=== PATIENT | male | born 1990 | race Caucasian/White ===

== ENCOUNTER 2023-04-19 00:49 | Inpatient (IN) ==
--- NOTE | 2023-04-19 01:00 | Emergency Department Note ---
Impression & Plan Severe sepsis, Sepsis, Blockage of feeding tube, Acute UTI (urinary tract infection), Autonomic dysfunction ED Provider Note ED Provider Note NAME: NAYELY DOBSON AGE:32 SEX: Male : 1990 ARRIVES VIA: EMS INFORMANT: EMS ED PROVIDER(s): Tanna Greco DO CHIEF COMPLAINT: Blocked feeding tube HPI: This is a 32-year-old male who presents emergency department from [facility] due to the concern for a blocked feeding tube. EMS reports staff told him they did try to use soda to unclog it however were unsuccessful and were concerned and sent him here. Patient is nonverbal, has a history of trach, TIPPLE TENDER shunt, and is bedbound. Patient is dependent on the feeding tube and does not take anything by mouth. PAST MEDICAL HISTORY:See Below PAST SURGICAL HISTORY:See Below FAMILY HISTORY:See Below SOCIAL HISTORY:See Below HOME MEDICATIONS:See Below ALLERGIES:See Below VITALS:See Below PHYSICAL EXAMINATION: GENERAL: alert, no distress HEAD: chronic appearing deformity at skull EYE EXAM: normal conjunctiva, PERRL and EOM's grossly intact OROPHARYNX: no exudate, no erythema, lips, buccal mucosa, and tongue normal and mucous membranes are moist NECK: supple, no nuchal rigidity, no adenopathy, non-tender LUNGS: Clear to auscultation. Normal chest wall mechanics, no w/r/r, trach noted inferior anterior neck with scant drainage HEART: no murmurs, S1 normal and S2 normal ABDOMEN: abdomen soft, non-tender, normo-active bowel sounds, no masses, no rebound or guarding, G-tube noted left upper quadrant, no drainage or erythema at skin site BACK: Back is symmetrical on inspection and there is no deformity, no midline tenderness, no CVA tenderness. SKIN: no rashes, petechiae, orbruising UPPER EXTREMITIES: upper extremities are grossly normal. nml pulses b/l. Contractures and muscular atrophy bilaterally LOWER EXTREMITIES: No pitting edema. nml pulses b/l. Muscular atrophy noted bilaterally. NEURO EXAM: Eyes open, bilateral upper extremity contractures, nonverbal Vital Signs: reviewed and remarkable Differential Diagnosis: Dislodgment, blockage of tube, cellulitis, bleeding, as well as others were considered MEDICAL DECISION MAKING: This is a 32-year-old male who was chronically dependent on feeding tube who presents from a local facility due to concern for a blocked feeding tube. After several attempts here using warm water, soda, and then further warm water, the tube was able to be unblocked and would flush and aspirate well without difficulty. No leakage or drainage from around the skin site. No bleeding at the skin site. Patient afebrile and vital signs stable. Patient slated for transportation back to facility at 11 AM per case management. I did order his morning medications per feeding tube based on what was in the EMR as we did ask the staff at [facility] to fax us a copy of his current medications and when they were last given and nothing was ever received. Nursing staff aware of plan and importance of giving all medications through the feeding tube. Patient othe rwise hemodynamically stable throughout. Consultation(s): [] ER Treatment Provided: See below Diagnostics Interpreted By Me: -ECG: [] -Cardiac Monitoring: An order was placed for continuous cardiac monitoring. The monitor shows a rate of 98 with normal sinus rhythm. -Laboratory studies: As stated above and show below. -Imaging studies: [] Triage Nursing Note Reviewed Prior/Outside Records Reviewed Past Med/Surg History Medical History (Updated 04/19/23 @ 13:24 by Gael York MD) History of nontraumatic rupture of cerebral aneurysm History of traumatic brain injury Social History Smoking Status: Never smoker Second Hand Exposure: No; Do You Dip or Chew Tobacco: No; Tobacco Cessation Education Requested by Patient: No Hx Alcohol Use: No Hx Substance Use: No Preferred Language: German Communication Ability: Unable Racing Car Driver Required: No Beliefs That Will Affect Care: None Current Living Situation: [facility] Other Information That Helps Us Care for You: No Feels Safe at Home: Yes Safety Concerns: Feels Safe At This Time Assistive Devices: None Allergies Allergies Allergy/AdvReac Type Severity Reaction Status Date / Time No Known Allergies Allergy Unverified 04/04/23 09:03 Home Meds Home Medications Medication Instructions Recorded Confirmed apixaban 5 mg tablet (Eliquis) 5 mg feeding tube BID 04/02/23 04/03/23 scopolamine base 1 mg over 3 days 1 patch transdermal Q3D 04/02/23 04/03/23 transdermal patch Previous Rx's Medication Instructions Recorded acetaminophen 325 mg/10.15 mL oral 650 mg (20.3 mL) PEG Q6 #250 mL 04/17/23 suspension baclofen 10 mg tablet 20 mg feeding tube Q6H #1 tab 04/17/23 bromocriptine 2.5 mg tablet 2.5 mg feeding tube Q6 #120 tabs 04/17/23 dantrolene 25 mg capsule 100 mg PEG Q6 #120 caps 04/17/23 escitalopram oxalate 5 mg/5 mL 5 mg (5 mL) PEG QAM #150 mL 04/17/23 oral solution ferrous sulfate 220 mg (44 mg 325 mg (7.3864 mL) G-tube Q48H 60 04/17/23 iron)/5 mL oral elixir days #221.592 mL gabapentin 250 mg/5 mL oral 400 mg (8 mL) PEG Q6 #250 mL 04/17/23 solution lactose-reduced food with fiber See Rx Instructions .Route 04/17/23 0.06 gram-1.5 kcal/mL oral liquid .COMPLEX #5,688 mL (Jevity 1.5 Lance) metoprolol tartrate 25 mg tablet 25 mg PEG BID #60 tabs 04/17/23 multivit and minerals-ferrous 15 ml PEG QAM 30 days #450 mL 04/17/23 gluconate 9 mg iron/15 mL oral liquid (Centrum) Results & Data (ED) Vital Signs Vital Signs - 24 hr 04/19/23 01:17 04/19/23 01:34 04/19/23 02:00 Temperature 37.5 C Temperature Source Axillary Pulse Rate 103 H Pulse Rate [Apical] 105 H 109 H Pulse Rate from SpO2 Sensor Pulse Rhythm Pulse Rhythm [Apical] Pulse Strength [Apical] Respiratory Rate 18 18 18 Respiratory Effort / Characteristics Respiratory Depth Respiratory Pattern Blood Pressure 110/80 Blood Pressure [Right Arm] 110/87 122/77 Blood Pressure Mean 90 Blood Pressure Mean [Right Arm] 94 92 Blood Pressure Position [Right Arm] Pulse Oximetry 100 100 100 Oxygen Delivery Method Trach Collar Trach Collar Trach Collar Oxygen Flow Rate 5 5 5 Fraction of Inspired Oxygen SaO2/FiO2 Ratio Sepsis Recent Fever Within 48 Hours No Sepsis New/Unexplained Change in Mental Status No Sepsis Action Taken by Nursing No Action Required 04/19/23 04:00 04/19/23 06:00 04/19/23 06:23 Temperature 37.5 C Temperature Source Axillary Pulse Rate 109 H Pulse Rate [Apical] 109 H 108 H Pulse Rate from SpO2 Sensor Pulse Rhythm Pulse Rhythm [Apical] Pulse Strength [Apical] Respiratory Rate 18 18 18 Respiratory Effort / Characteristics Respiratory Depth Respiratory Pattern Blood Pressure 120/89 Blood Pressure [Right Arm] 131/98 131/88 Blood Pressure Mean Blood Pressure Mean [Right Arm] 109 102 Blood Pressure Position [Right Arm] Pulse Oximetry 100 100 97 Oxygen Delivery Method Trach Collar Trach Collar Trach Collar Oxygen Flow Rate 5 5 5 Fraction of Inspired Oxygen SaO2/FiO2 Ratio Sepsis Recent Fever Within 48 Hours Sepsis New/Unexplained Change in Mental Status Sepsis Action Taken by Nursing 04/19/23 07:28 04/19/23 09:29 04/19/23 11:35 Temperature Temperature Source Pulse Rate 172 H Pulse Rate [Apical] 104 H 110 H Pulse Rate from SpO2 Sensor Pulse Rhythm Pulse Rhythm [Apical] Pulse Strength [Apical] Respiratory Rate 24 22 Respiratory Effort / Characteristics Respiratory Depth Respiratory Pattern Blood Pressure Blood Pressure [Right Arm] 132/96 132/94 Blood Pressure Mean Blood Pressure Mean [Right Arm] 108 106 Blood Pressure Position [Right Arm] Pulse Oximetry 100 100 Oxygen Delivery Method Trach Collar Trach Collar Oxygen Flow Rate 5 5 Fraction of Inspired Oxygen SaO2/FiO2 Ratio Sepsis Recent Fever Within 48 Hours Sepsis New/Unexplained Change in Mental Status Sepsis Action Taken by Nursing 04/19/23 12:34 04/19/23 11:15 04/19/23 13:10 Temperature 39.6 C H 39.9 C H Temperature Source Axillary Axillary Pulse Rate 178 H Pulse Rate [Apical] 169 H 189 H Pulse Rate from SpO2 Sensor Pulse Rhythm Regular Pulse Rhythm [Apical] Regular Pulse Strength [Apical] Normal Respiratory Rate 19 Respiratory Effort / Characteristics Spontaneous Respiratory Depth Normal Respiratory Pattern Regular Blood Pressure Blood Pressure [Right Arm] 114/99 Blood Pressure Mean Blood Pressure Mean [Right Arm] 104 Blood Pressure Position [Right Arm] Lying Pulse Oximetry 93 94 Oxygen Delivery Method Trach Collar Trach Collar Oxygen Flow Rate 10 Fraction of Inspired Oxygen 40 SaO2/FiO2 Ratio 235 Sepsis Recent Fever Within 48 Hours Sepsis New/Unexplained Change in Mental Status Sepsis Action Taken by Nursing 04/19/23 12:47 04/19/23 12:47 04/19/23 13:17 Temperature Temperature Source Pulse Rate 130 H Pulse Rate [Apical] Pulse Rate from SpO2 Sensor 180 H 130 H Pulse Rhythm Pulse Rhythm [Apical] Pulse Strength [Apical] Respiratory Rate Respiratory Effort / Characteristics Respiratory Depth Respiratory Pattern Blood Pressure 167/127 H Blood Pressure [Right Arm] Blood Pressure Mean 142 Blood Pressure Mean [Right Arm] Blood Pressure Position [Right Arm] Pulse Oximetry 90 95 Oxygen Delivery Method Oxygen Flow Rate Fraction of Inspired Oxygen SaO2/FiO2 Ratio Sepsis Recent Fever Within 48 Hours Sepsis New/Unexplained Change in Mental Status Sepsis Action Taken by Nursing 04/19/23 13:30 04/19/23 13:31 04/19/23 13:31 Temperature Temperature Source Pulse Rate Pulse Rate [Apical] Pulse Rate from SpO2 Sensor 157 H 159 H Pulse Rhythm Pulse Rhythm [Apical] Pulse Strength [Apical] Respiratory Rate Respiratory Effort / Characteristics Respiratory Depth Respiratory Pattern Blood Pressure 158/119 H Blood Pressure [Right Arm] Blood Pressure Mean 145 Blood Pressure Mean [Right Arm] Blood Pressure Position [Right Arm] Pulse Oximetry 96 96 Oxygen Delivery Method Oxygen Flow Rate Fraction of Inspired Oxygen SaO2/FiO2 Ratio Sepsis Recent Fever Within 48 Hours Sepsis New/Unexplained Change in Mental Status Sepsis Action Taken by Nursing 04/19/23 13:22 04/19/23 14:36 04/19/23 13:45 Temperature 39.6 C H 39.0 C H Temperature Source Axillary Rectal Pulse Rate 152 H Pulse Rate [Apical] Pulse Rate from SpO2 Sensor 152 H Pulse Rhythm Pulse Rhythm [Apical] Pulse Strength [Apical] Respiratory Rate Respiratory Effort / Characteristics Respiratory Depth Respiratory Pattern Blood Pressure 168/110 H Blood Pressure [Right Arm] Blood Pressure Mean 129 Blood Pressure Mean [Right Arm] Blood Pressure Position [Right Arm] Pulse Oximetry 96 Oxygen Delivery Method Oxygen Flow Rate Fraction of Inspired Oxygen SaO2/FiO2 Ratio Sepsis Recent Fever Within 48 Hours Sepsis New/Unexplained Change in Mental Status Sepsis Action Taken by Nursing 04/19/23 14:00 04/19/23 14:15 04/19/23 14:30 Temperature Temperature Source Pulse Rate 143 H 152 H Pulse Rate [Apical] Pulse Rate from SpO2 Sensor 155 H 152 H Pulse Rhythm Pulse Rhythm [Apical] Pulse Strength [Apical] Respiratory Rate Respiratory Effort / Characteristics Respiratory Depth Respiratory Pattern Blood Pressure 174/123 H 161/111 H 146/109 H Blood Pressure [Right Arm] Blood Pressure Mean 140 127 120 Blood Pressure Mean [Right Arm] Blood Pressure Position [Right Arm] Pulse Oximetry 96 96 Oxygen Delivery Method Oxygen Flow Rate Fraction of Inspired Oxygen SaO2/FiO2 Ratio Sepsis Recent Fever Within 48 Hours Sepsis New/Unexplained Change in Mental Status Sepsis Action Taken by Nursing 04/19/23 14:30 04/19/23 14:45 04/19/23 15:00 Temperature Temperature Source Pulse Rate 157 H 148 H Pulse Rate [Apical] Pulse Rate from SpO2 Sensor 156 H 147 H Pulse Rhythm Pulse Rhythm [Apical] Pulse Strength [Apical] Respiratory Rate Respiratory Effort / Characteristics Respiratory Depth Respiratory Pattern Blood Pressure 146/109 H 159/109 H 158/120 H Blood Pressure [Right Arm] Blood Pressure Mean 121 125 125 Blood Pressure Mean [Right Arm] Blood Pressure Position [Right Arm] Pulse Oximetry 97 96 Oxygen Delivery Method Trach Collar Oxygen Flow Rate 10 Fraction of Inspired Oxygen SaO2/FiO2 Ratio Sepsis Recent Fever Within 48 Hours Sepsis New/Unexplained Change in Mental Status Sepsis Action Taken by Nursing 04/19/23 15:00 04/19/23 15:37 04/19/23 15:45 Temperature 39.3 C H Temperature Source Rectal Pulse Rate 150 H 132 H Pulse Rate [Apical] 102 H Pulse Rate from SpO2 Sensor 149 H Pulse Rhythm Pulse Rhythm [Apical] Pulse Strength [Apical] Respiratory Rate 24 Respiratory Effort / Characteristics Respiratory Depth Respiratory Pattern Blood Pressure 158/120 H Blood Pressure [Right Arm] 113/61 Blood Pressure Mean 132 Blood Pressure Mean [Right Arm] 78 Blood Pressure Position [Right Arm] Lying Pulse Oximetry 97 96 Oxygen Delivery Method Trach Collar Trach Collar Oxygen Flow Rate 10 10 Fraction of Inspired Oxygen SaO2/FiO2 Ratio Sepsis Recent Fever Within 48 Hours Sepsis New/Unexplained Change in Mental Status Sepsis Action Taken by Nursing Laboratory Data 04/19/23 12:35 04/19/23 19:53 Lab Results 04/19/23 04/19/23 04/19/23 Range/Units 11:14 12:30 12:30 WBC (4.8-10.8) K/ul RBC (4.70-6.10) M/uL Hgb (14.0-18.0) g/dl Hct (42.0-52.0) % MCV (80.0-100.0) fL MCH (25.0-34.0) pg MCHC (32.0-36.0) g/dL RDW Std Deviation (36.4-46.3) fL RDW Coeff of Dario (11.5-14.5) % Plt Count (130-400) K/uL MPV (9.4-12.4) fL Immature Gran % (Auto) % Neut % (Auto) % Lymph % (Auto) % [place] % (Auto) % Eos % (Auto) % Baso % (Auto) % Neut # (Auto) (1.40-6.50) K/uL Lymph # (Auto) (1.20-3.40) K/uL [place] # (Auto) (0.11-0.59) K/uL Eos # (Auto) (0.00-0.50) K/uL Baso # (Auto) (0.00-0.20) K/uL Immature Gran # (Auto) (0.01-0.20) K/uL VBG pH (7.36-7.41) VBG pCO2 (38-50) mmHg VBG pO2 mmHg VBG HCO3 mmol/L VBG O2 Saturation % VBG Base Excess mEq/L Sodium (136-145) mmol/L Potassium Chloride (98-107) mmol/L Carbon Dioxide (21-32) mmol/L Anion Gap (3-11) BUN (6-23) mg/dl Creatinine (0.6-1.4) mg/dl Est Cr Clr Drug Dosing ml/min Est GFR ( Amer) ml/min Est GFR (Non-Af Amer) ml/min BUN/Creatinine Ratio (10-20) Glucose (70-99(Fasting)) mg/dl POC Glucose 113 H (70-99) mg/dl Lactate 4.8 H* (0.4-2.0) mmol/L Calcium (8.6-10.3) mg/dl Magnesium (1.7-2.4) mg/dl Total Bilirubin (0.2-1.0) mg/dl Direct Bilirubin AST (13-39) U/L ALT (7-52) U/L Alkaline Phosphatase (34-104) U/L Total Protein (6.0-8.3) gm/dl Albumin (3.4-5.0) gm/dl Procalcitonin Urine Color Dark Yellow Urine Appearance Turbid A (Clear) Urine pH 5.5 (4.5-7.5) Ur Specific [place] 1.030 (1.000-1.030) Urine Protein 3+ H (Negative) Urine Glucose (UA) Negative (Negative) Urine Ketones Negative (Negative) Urine Blood 3+ H (Negative) Urine Nitrite Negative (Negative) Urine Bilirubin 1+ H (Negative) Urine Urobilinogen Negative (Negative) Ur Leukocyte Esterase 1+ H (Negative) Urine WBC (Auto) 10-30 H (0-5) /hpf Urine RBC (Auto) >30 H (0-4) /hpf U Hyaline Cast (Auto) 1-5 (0-5) /lpf U Epithel Cells (Auto) 5-10 H (0-5) /lpf Urine Bacteria (Auto) 2+ H (Negative) Ur Renal Epithelial Cell Not Reportable Urine Crystals Not Reportable Calcium Oxalate Crystal Present A (None Prsent) Urine Yeast Not Reportable 04/19/23 04/19/23 04/19/23 Range/Units 12:35 12:35 12:35 WBC 15.76 H (4.8-10.8) K/ul RBC 4.05 L (4.70-6.10) M/uL Hgb 12.6 L (14.0-18.0) g/dl Hct 37.9 L (42.0-52.0) % MCV 93.6 (80.0-100.0) fL MCH 31.1 (25.0-34.0) pg MCHC 33.2 (32.0-36.0) g/dL RDW Std Deviation 50.2 H (36.4-46.3) fL RDW Coeff of Dario 14.6 H (11.5-14.5) % Plt Count 658 H (130-400) K/uL MPV 10.8 (9.4-12.4) fL Immature Gran % (Auto) 0.4 % Neut % (Auto) 77.6 % Lymph % (Auto) 15.0 % [place] % (Auto) 6.1 % Eos % (Auto) 0.3 % Baso % (Auto) 0.6 % Neut # (Auto) 12.23 H (1.40-6.50) K/uL Lymph # (Auto) 2.37 (1.20-3.40) K/uL [place] # (Auto) 0.96 H (0.11-0.59) K/uL Eos # (Auto) 0.05 (0.00-0.50) K/uL Baso # (Auto) 0.09 (0.00-0.20) K/uL Immature Gran # (Auto) 0.06 (0.01-0.20) K/uL VBG pH (7.36-7.41) VBG pCO2 (38-50) mmHg VBG pO2 mmHg VBG HCO3 mmol/L VBG O2 Saturation % VBG Base Excess mEq/L Sodium 142 (136-145) mmol/L Potassium TNP Chloride 103 (98-107) mmol/L Carbon Dioxide 22 (21-32) mmol/L Anion Gap 17 H (3-11) BUN 29 H (6-23) mg/dl Creatinine 0.90 D (0.6-1.4) mg/dl Est Cr Clr Drug Dosing 94.3 ml/min Est GFR ( Amer) 130.5 ml/min Est GFR (Non-Af Amer) 112.6 ml/min BUN/Creatinine Ratio 32.2 H (10-20) Glucose 108 H (70-99(Fasting)) mg/dl POC Glucose (70-99) mg/dl Lactate (0.4-2.0) mmol/L Calcium 10.1 (8.6-10.3) mg/dl Magnesium 1.7 (1.7-2.4) mg/dl Total Bilirubin 0.8 (0.2-1.0) mg/dl Direct Bilirubin TNP AST 33 (13-39) U/L ALT 18 (7-52) U/L Alkaline Phosphatase 92 (34-104) U/L Total Protein 8.4 H (6.0-8.3) gm/dl Albumin 4.4 (3.4-5.0) gm/dl Procalcitonin Cancelled Urine Color Urine Appearance (Clear) Urine pH (4.5-7.5) Ur Specific [place] (1.000-1.030) Urine Protein (Negative) Urine Glucose (UA) (Negative) Urine Ketones (Negative) Urine Blood (Negative) Urine Nitrite (Negative) Urine Bilirubin (Negative) Urine Urobilinogen (Negative) Ur Leukocyte Esterase (Negative) Urine WBC (Auto) (0-5) /hpf Urine RBC (Auto) (0-4) /hpf U Hyaline Cast (Auto) (0-5) /lpf U Epithel Cells (Auto) (0-5) /lpf Urine Bacteria (Auto) (Negative) Ur Renal Epithelial Cell Urine Crystals Calcium Oxalate Crystal (None Prsent) Urine Yeast 04/19/23 04/19/23 04/19/23 Range/Units 14:13 14:13 14:13 WBC (4.8-10.8) K/ul RBC (4.70-6.10) M/uL Hgb (14.0-18.0) g/dl Hct (42.0-52.0) % MCV (80.0-100.0) fL MCH (25.0-34.0) pg MCHC (32.0-36.0) g/dL RDW Std Deviation (36.4-46.3) fL RDW Coeff of Dario (11.5-14.5) % Plt Count (130-400) K/uL MPV (9.4-12.4) fL Immature Gran % (Auto) % Neut % (Auto) % Lymph % (Auto) % [place] % (Auto) % Eos % (Auto) % Baso % (Auto) % Neut # (Auto) (1.40-6.50) K/uL Lymph # (Auto) (1.20-3.40) K/uL [place] # (Auto) (0.11-0.59) K/uL Eos # (Auto) (0.00-0.50) K/uL Baso # (Auto) (0.00-0.20) K/uL Immature Gran # (Auto) (0.01-0.20) K/uL VBG pH (7.36-7.41) VBG pCO2 (38-50) mmHg VBG pO2 mmHg VBG HCO3 mmol/L VBG O2 Saturation % VBG Base Excess mEq/L Sodium (136-145) mmol/L Potassium 5.4 H D Chloride (98-107) mmol/L Carbon Dioxide (21-32) mmol/L Anion Gap (3-11) BUN (6-23) mg/dl Creatinine (0.6-1.4) mg/dl Est Cr Clr Drug Dosing ml/min Est GFR ( Amer) ml/min Est GFR (Non-Af Amer) ml/min BUN/Creatinine Ratio (10-20) Glucose (70-99(Fasting)) mg/dl POC Glucose (70-99) mg/dl Lactate 2.9 H* (0.4-2.0) mmol/L Calcium (8.6-10.3) mg/dl Magnesium (1.7-2.4) mg/dl Total Bilirubin (0.2-1.0) mg/dl Direct Bilirubin 0.0 AST (13-39) U/L ALT (7-52) U/L Alkaline Phosphatase (34-104) U/L Total Protein (6.0-8.3) gm/dl Albumin (3.4-5.0) gm/dl Procalcitonin 0.89 H Urine Color Urine Appearance (Clear) Urine pH (4.5-7.5) Ur Specific [place] (1.000-1.030) Urine Protein (Negative) Urine Glucose (UA) (Negative) Urine Ketones (Negative) Urine Blood (Negative) Urine Nitrite (Negative) Urine Bilirubin (Negative) Urine Urobilinogen (Negative) Ur Leukocyte Esterase (Negative) Urine WBC (Auto) (0-5) /hpf Urine RBC (Auto) (0-4) /hpf U Hyaline Cast (Auto) (0-5) /lpf U Epithel Cells (Auto) (0-5) /lpf Urine Bacteria (Auto) (Negative) Ur Renal Epithelial Cell Urine Crystals Calcium Oxalate Crystal (None Prsent) Urine Yeast 04/19/23 Range/Units 14:14 WBC (4.8-10.8) K/ul RBC (4.70-6.10) M/uL Hgb (14.0-18.0) g/dl Hct (42.0-52.0) % MCV (80.0-100.0) fL MCH (25.0-34.0) pg MCHC (32.0-36.0) g/dL RDW Std Deviation (36.4-46.3) fL RDW Coeff of Dario (11.5-14.5) % Plt Count (130-400) K/uL MPV (9.4-12.4) fL Immature Gran % (Auto) % Neut % (Auto) % Lymph % (Auto) % [place] % (Auto) % Eos % (Auto) % Baso % (Auto) % Neut # (Auto) (1.40-6.50) K/uL Lymph # (Auto) (1.20-3.40) K/uL [place] # (Auto) (0.11-0.59) K/uL Eos # (Auto) (0.00-0.50) K/uL Baso # (Auto) (0.00-0.20) K/uL Immature Gran # (Auto) (0.01-0.20) K/uL VBG pH 7.46 H (7.36-7.41) VBG pCO2 41 (38-50) mmHg VBG pO2 43 mmHg VBG HCO3 29 mmol/L VBG O2 Saturation 69.7 % VBG Base Excess 4.9 mEq/L Sodium (136-145) mmol/L Potassium Chloride (98-107) mmol/L Carbon Dioxide (21-32) mmol/L Anion Gap (3-11) BUN (6-23) mg/dl Creatinine (0.6-1.4) mg/dl Est Cr Clr Drug Dosing ml/min Est GFR ( Amer) ml/min Est GFR (Non-Af Amer) ml/min BUN/Creatinine Ratio (10-20) Glucose (70-99(Fasting)) mg/dl POC Glucose (70-99) mg/dl Lactate (0.4-2.0) mmol/L Calcium (8.6-10.3) mg/dl Magnesium (1.7-2.4) mg/dl Total Bilirubin (0.2-1.0) mg/dl Direct Bilirubin AST (13-39) U/L ALT (7-52) U/L Alkaline Phosphatase (34-104) U/L Total Protein (6.0-8.3) gm/dl Albumin (3.4-5.0) gm/dl Procalcitonin Urine Color Urine Appearance (Clear) Urine pH (4.5-7.5) Ur Specific [place] (1.000-1.030) Urine Protein (Negative) Urine Glucose (UA) (Negative) Urine Ketones (Negative) Urine Blood (Negative) Urine Nitrite (Negative) Urine Bilirubin (Negative) Urine Urobilinogen (Negative) Ur Leukocyte Esterase (Negative) Urine WBC (Auto) (0-5) /hpf Urine RBC (Auto) (0-4) /hpf U Hyaline Cast (Auto) (0-5) /lpf U Epithel Cells (Auto) (0-5) /lpf Urine Bacteria (Auto) (Negative) Ur Renal Epithelial Cell Urine Crystals Calcium Oxalate Crystal (None Prsent) Urine Yeast Administered Medications Apixaban (Apixaban 5 Mg Tablet) 5 mg PO BID TAYLOR Stop: 05/19/23 08:59 Last Admin: 04/19/23 20:25 Dose: 5 mg Documented By: Admin: 04/19/23 11:25 Dose: 5 mg Documented By: DYLON Baclofen (Baclofen 10 Mg Tab) 20 mg PEG Q6H TAYLOR Stop: 05/19/23 08:44 Last Admin: 04/19/23 20:48 Dose: 20 mg Documented By: Admin: 04/19/23 16:06 Dose: 20 mg Documented By: Admin: 04/19/23 11:44 Dose: 20 mg Documented By: DYLON Escitalopram Oxalate (Escitalopram Oxalate Oral Soln 5 Mg/5 Ml Udp) 5 mg PEG QAM TAYLOR Stop: 05/19/23 08:59 Last Admin: 04/19/23 11:34 Dose: 5 mg Documented By: DYLON Ferrous Sulfate (Ferrous Sulfate Elix 220mg/5ml) 325 mg GT Q48H [facility] Stop: 05/19/23 08:44 Last Admin: 04/19/23 11:39 Dose: 325 mg Documented By: DYLON Vancomycin HCl 1,000 mg/ (Sodium Chloride) 270 mls @ 200 mls/hr IV Q12H [facility] Stop: 04/22/23 00:00 Last Admin: 04/20/23 00:36 Dose: 200 mls/hr Documented By: EDEN Cefepime HCl 2,000 mg/ Syringe 20 mls @ 5 mls/min IV Q8H [facility]; Protocol Stop: 04/21/23 16:29 Last Admin: 04/20/23 00:36 Dose: 5 mls/min Documented By: Admin: 04/19/23 16:53 Dose: 5 mls/min Documented By: DAMASO Parenteral Electrolytes (Plasma-Lyte A Ph 7.4) 1,000 mls @ 125 mls/hr IV .Q8H T[facility]LOR Stop: 05/19/23 22:44 Last Admin: 04/19/23 22:57 Dose: 125 mls/hr Documented By: EDEN Metoprolol Tartrate (Metoprolol Tartrate 25 Mg Tab) 25 mg PEG BID TAYLOR Stop: 05/19/23 08:59 Last Admin: 04/19/23 20:48 Dose: 25 mg Documented By: Admin: 04/19/23 11:44 Dose: 25 mg Documented By: DYLON Multivitamins/Minerals (Multi Vit W/Minerals Liquid 15 Ml Udp) 15 ml PEG QAM T[facility]LOR Stop: 05/19/23 08:59 Last Admin: 04/19/23 11:33 Dose: 15 ml Documented By: DYLON Discontinued Medications Acetaminophen (Acetaminophen Susp 325 Mg/10.15 Ml Udc) 650 mg PEG Q6 T[facility]OR Stop: 05/19/23 11:59 Last Admin: 04/19/23 11:25 Dose: 650 mg Documented By: DYLON Bromocriptine Mesylate (Bromocriptine Mesylate 2.5 Mg Tab) 2.5 mg PO Q6 T[facility]OR Stop: 05/19/23 11:59 Last Admin: 04/19/23 20:24 Dose: 2.5 mg Documented By: Admin: 04/19/23 11:25 Dose: 2.5 mg Documented By: DYLON Dantrolene Sodium (Dantrolene Sodium 25 Mg Cap) 100 mg PEG Q6 T[facility]OR Stop: 05/19/23 11:59 Last Admin: 04/19/23 20:24 Dose: 100 mg Documented By: Admin: 04/19/23 11:25 Dose: 100 mg Documented By: DYLON Gabapentin (Gabapentin 250 Mg/5 Ml 470 Ml Btl) 400 mg GT Q6 T[facility]OR Stop: 05/19/23 11:59 Last Admin: 04/19/23 20:24 Dose: 400 mg Documented By: Admin: 04/19/23 13:42 Dose: 400 mg Documented By: NATALIA Sodium Chloride (Nss) 1,000 mls @ 999 mls/hr IV .Q1H1M ONE Stop: 04/19/23 12:22 Last Infusion: 04/19/23 13:48 Dose: 0 mls/hr Documented By: Admin: 04/19/23 12:15 Dose: 999 mls/hr Documented By: DYLON Piperacillin Sod/Tazobactam Sod (Zosyn) 4.5 gm in 100 mls @ 200 mls/hr IV NOW ONE Stop: 04/19/23 11:51 Last Infusion: 04/19/23 13:48 Dose: 0 mls/hr Documented By: Admin: 04/19/23 12:30 Dose: 200 mls/hr Documented By: DYLON Sodium Chloride (Nss) 1,000 mls @ 999 mls/hr IV .Q1H1M ONE Stop: 04/19/23 12:37 Last Infusion: 04/19/23 13:48 Dose: 0 mls/hr Documented By: Admin: 04/19/23 12:15 Dose: 999 mls/hr Documented By: DYLON Sodium Chloride (Nss) 500 mls @ 999 mls/hr IV .Q31M ONE Stop: 04/19/23 12:07 Last Infusion: 04/19/23 14:15 Dose: 0 mls/hr Documented By: Admin: 04/19/23 13:43 Dose: 999 mls/hr Documented By: NATALIA Acetaminophen (Ofirmev) 500 mg in 50 mls @ 200 mls/hr IV NOW STA Stop: 04/19/23 13:20 Last Infusion: 04/19/23 14:14 Dose: 0 mls/hr Documented By: Admin: 04/19/23 13:43 Dose: 200 mls/hr Documented By: NATALIA Sodium Chloride (Nss) 500 mls @ 999 mls/hr IV .Q31M ONE Stop: 04/19/23 15:38 Last Infusion: 04/19/23 21:19 Dose: 0 mls/hr Documented By: Admin: 04/19/23 16:02 Dose: 999 mls/hr Documented By: DAMASO Sodium Chloride (Nss) 1,000 mls @ 120 mls/hr IV .Q8H20M TAYLOR Stop: 05/19/23 15:44 Last Infusion: 04/19/23 23:40 Dose: 0 mls/hr Documented By: Admin: 04/19/23 16:02 Dose: 120 mls/hr Documented By: DAMASO Vancomycin HCl 1,250 mg/ (Sodium Chloride) 275 mls @ 200 mls/hr IV 1600 ONE Stop: 04/19/23 17:22 Last Infusion: 04/19/23 21:19 Dose: 0 mls/hr Documented By: Admin: 04/19/23 16:58 Dose: 200 mls/hr Documented By: DAMASO Morphine Sulfate (Morphine Sulfate 2 Mg/Ml Carp) 2 mg IV NOW STA Stop: 04/19/23 14:12 Last Admin: 04/19/23 14:34 Dose: 2 mg Documented By: NATALIA Imaging Data Radiologist's Impression: Abdomen/Pelvis CT 04/19/23 11:[address] WITHOUT CONTRAST CT DOSE: 871.62 mGy.cm HISTORY: Acute sepsis sepsis TECHNIQUE: Multiaxial CT images of the abdomen and pelvis were performed without contrast. A dose lowering technique was utilized adhering to the principles of ALARA. COMPARISON STUDY: 04/07/2023 FINDINGS: Motion degraded exam. Study is limited without the use of IV contrast and also secondary to residual enteric contrast within the colon. Mild right basilar atelectasis. No free air identified. Unenhanced spleen, visualized pancreas, adrenal glands and liver appear unremarkable. Unremarkable kidneys. Decompressed urinary bladder with Silva catheter. Unremarkable abdominal aorta. No bowel obstruction or bowel wall thickening. A gastrostomy tube is in place. Small amount of free pelvic fluid. Normal appendix. Gaseous distention of the colon. Shunt catheter distal tip projects in the left inferior pelvis. 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 No acute fracture. IMPRESSION: 1. Limited study as above. 2. No bowel obstruction or bowel wall thickening. 3. Normal appendix. 4. Shunt catheter distal tip terminates in the left hemipelvis. Small amount of ascites. ACT 112: Negative or not required by law. The above report was generated using voice recognition software. It may contain grammatical, syntax or spelling errors. Electronically signed by: Corey Rodgers M.D. 04/19/2023 1:21 PM Abdomen X-Ray 04/19/23 15:38 XR abdomen min 2V, XR chest 2V PA/lateral, XR skull <4V, XR cervical spine 2 or 3V HISTORY: 32 years-old Male Visualize Shunt shunt series radiographs COMPARISON: KUB 04/16/2023, chest radiograph 04/19/2023 TECHNIQUE: 2 views of the abdomen, 3 views of the cervical spine, 2 views of the chest and 2 views of the skull FINDINGS: SKULL: Visualized shunt catheter appears intact coursing along left neck and head. Craniotomy changes. No acute fracture. CERVICAL SPINE: No acute fracture or subluxation. Visualized shunt catheter appears intact. Tracheostomy cannula. CHEST: Visualize shunt catheter coursing along the left chest appears intact. Tracheostomy cannula. Subtle ill-defined right upper and midlung opacities. Cardiac silhouette is unchanged. No pleural effusion or pneumothorax. ABDOMEN: Gastrostomy tube. Contrast again noted within the colon. Moderate fecal retention. The visualized shunt catheter is intact, distal tip terminating within the left hemipelvis. IMPRESSION: 1. The visualized shunt catheter appears intact. 2. Subtle ill-defined right lung opacities. Correlate clinically to exclude pneumonia. 3. Nonobstructive bowel gas pattern. ACT 112: Negative or not required by law. The above report was generated using voice recognition software. It may contain grammatical, syntax or spelling errors. Electronically signed by: Corey Rodgers M.D. 04/19/2023 6:03 PM Cervical Spine X-Ray 04/19/23 15:38 XR abdomen min 2V, XR chest 2V PA/lateral, XR skull <4V, XR cervical spine 2 or 3V HISTORY: 32 years-old Male Visualize Shunt shunt series radiographs COMPARISON: KUB 04/16/2023, chest radiograph 04/19/2023 TECHNIQUE: 2 views of the abdomen, 3 views of the cervical spine, 2 views of the chest and 2 views of the skull FINDINGS: SKULL: Visualized shunt catheter appears intact coursing along left neck and head. Cran iotomy changes. No acute fracture. CERVICAL SPINE: No acute fracture or subluxation. Visualized shunt catheter appears intact. Tracheostomy cannula. CHEST: Visualize shunt catheter coursing along the left chest appears intact. Tracheostomy cannula. Subtle ill-defined right upper and midlung opacities. Cardiac silhouette is unchanged. No pleural effusion or pneumothorax. ABDOMEN: Gastrostomy tube. Contrast again noted within the colon. Moderate fecal retention. The visualized shunt catheter is intact, distal tip terminating within the left hemipelvis. IMPRESSION: 1. The visualized shunt catheter appears intact. 2. Subtle ill-defined right lung opacities. Correlate clinically to exclude pneumonia. 3. Nonobstructive bowel gas pattern. ACT 112: Negative or not required by law. The above report was generated using voice recognition software. It may contain grammatical, syntax or spelling errors. Electronically signed by: Corey Rodgers M.D. 04/19/2023 6:03 PM Chest X-Ray 04/19/23 15:38 XR abdomen min 2V, XR chest 2V PA/lateral, XR skull <4V, XR cervical spine 2 or 3V HISTORY: 32 years-old Male Visualize Shunt shunt series radiographs COMPARISON: KUB 04/16/2023, chest radiograph 04/19/2023 TECHNIQUE: 2 views of the abdomen, 3 views of the cervical spine, 2 views of the chest and 2 views of the skull FINDINGS: SKULL: Visualized shunt catheter appears intact coursing along left neck and head. Craniotomy changes. No acute fracture. CERVICAL SPINE: No acute fracture or subluxation. Visualized shunt catheter appears intact. Tracheostomy cannula. CHEST: Visualize shunt catheter coursing along the left chest appears intact. Tracheostomy cannula. Subtle ill-defined right upper and midlung opacities. Cardiac silhouette is unchanged. No pleural effusion or pneumothorax. ABDOMEN: Gastrostomy tube. Contrast again noted within the colon. Moderate fecal retention. The visualized shunt catheter is intact, distal tip terminating within the left hemipelvis. IMPRESSION: 1. The visualized shunt catheter appears intact. 2. Subtle ill-defined right lung opacities. Correlate clinically to exclude pneumonia. 3. Nonobstructive bowel gas pattern. ACT 112: Negative or not required by law. The above report was generated using voice recognition software. It may contain grammatical, syntax or spelling errors. Electronically signed by: Corey Rodgers M.D. 04/19/2023 6:[address] 04/19/23 15:38 CT head/brain wo con CLINICAL HISTORY: 32 years-old Male with parox symp. hyperactivity, hx vp outcomes shunt per neuro. Acute headache TECHNIQUE: Multiple axial CT images of the head were obtained without contrast. A dose lowering technique was utilized adhering to the principles of ALARA. CT DOSE: 625.8 mGy.cm COMPARISON: 04/07/2023. FINDINGS: Motion degraded exam. Left anterior frontal approach ventriculostomy catheter is noted with distal tip of the catheter terminating within the frontal horn of the right lateral ventricle. Transverse dimension lateral ventricles is 3.9 cm, pre viously 3.7 cm. Right-sided craniotomy changes with a large area of encephalomalacia involving the right MCA territory. Additional encephalomalacia within the left basal ganglia/thalamus. Dural thickening lateral to the right cerebral hemisphere is is unchanged, likely a postsurgical finding. No acute intracranial hemorrhage, midline shift, intracranial mass, hydrocephalus, territorial ischemia or abnormal extra-axial collection. Right-sided craniotomy with heterogeneous appearance of the skull at the craniotomy site with multifocal lucent changes of unknown chronicity. 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 The paranasal sinuses, mastoid air cells, and middle ear cavities are clear. IMPRESSION: 1. Motion degraded exam without acute intracranial abnormality identified. 2. Right-sided craniotomy changes with right MCA territory encephalomalacia. 3. Ventricular dilation is unchanged from prior with a left anterior frontal approach ventriculostomy catheter in place. ACT 112: Negative or not required by law. The above report was generated using voice recognition software. It may contain grammatical, syntax or spelling errors. Electronically signed by: Corey Rodgers M.D. 04/19/2023 5:48 PM Skull X-Ray 04/19/23 15:38 XR abdomen min 2V, XR chest 2V PA/lateral, XR skull <4V, XR cervical spine 2 or 3V HISTORY: 32 years-old Male Visualize Shunt shunt series radiographs COMPARISON: KUB 04/16/2023, chest radiograph 04/19/2023 TECHNIQUE: 2 views of the abdomen, 3 views of the cervical spine, 2 views of the chest and 2 views of the skull FINDINGS: SKULL: Visualized shunt catheter appears intact coursing along left neck and head. Craniotomy changes. No acute fracture. CERVICAL SPINE: No acute fracture or subluxation. Visualized shunt catheter appears intact. Tracheostomy cannula. CHEST: Visualize shunt catheter coursing along the left chest appears intact. Tracheostomy cannula. Subtle ill-defined right upper and midlung opacities. Cardiac silhouette is unchanged. No pleural effusion or pneumothorax. ABDOMEN: Gastrostomy tube. Contrast again noted within the colon. Moderate fecal retention. The visualized shunt catheter is intact, distal tip terminating within the left hemipelvis. IMPRESSION: 1. The visualized shunt catheter appears intact. 2. Subtle ill-defined right lung opacities. Correlate clinically to exclude pneumonia. 3. Nonobstructive bowel gas pattern. ACT 112: Negative or not required by law. The above report was generated using voice recognition software. It may contain grammatical, syntax or spelling errors. Electronically signed by: Corey Rodgers M.D. 04/19/2023 6:03 PM Discharge Plan Visit Data Chief Complaint: Feeding/PEG Tube Replacement Stated Complaint: FEEDING TUBE OBSTRUCTION ED Provider: Faheem Ortiz Discharge Problem: Severe sepsis, Sepsis, Blockage of feeding tube, Acute UTI (urinary tract infection), Autonomic dysfunction Patient Disposition: Admitted As Inpatient Condition: Fair Discharge Instructions Interventions: ED Discharge Assessment Last Done: 04/19/23 06:23
[2023-04-19] MEDS ORDERED: GABAPENTIN 250 MG/5 ML 470 ML BTL GT SCH (02:30)
[2023-04-19] MEDS ORDERED: SODIUM CHLORIDE 0.9% 1,000 ML IV ONE ×2 (11:22→11:37)
[2023-04-19] MEDS ORDERED: PIPERACILLIN/TAZOBACTAM 4.5 GM/100 ML BAG IV ONE (11:22)
[2023-04-19] MEDS: APIXABAN 5 MG TABLET PO SCH ×2 (11:25→20:25)
[2023-04-19] MEDS: DANTROLENE SODIUM 25 MG CAP PEG SCH ×2 (11:25→20:24)
[2023-04-19] MEDS: BROMOCRIPTINE MESYLATE 2.5 MG TAB PO SCH ×2 (11:25→20:24)
[2023-04-19] MEDS: MULTI VIT W/MINERALS LIQUID 15 ML UDP PEG SCH (11:33)
[2023-04-19] MEDS: ESCITALOPRAM OXALATE ORAL SOLN 5 MG/5 ML UDP PEG SCH (11:34)
[2023-04-19] MEDS ORDERED: SODIUM CHLORIDE 0.9% 500 ML IV ONE ×2 (11:37→15:08)
--- NOTE | 2023-04-19 11:37 | Emergency Department Note ---
History of Present Illness General Chief complaint: Feeding/PEG Tube Replacement Stated complaint: FEEDING TUBE OBSTRUCTION Time Seen by Provider: 04/19/23 00:55 History of Present Illness 32-year-old male from a halfway was here last evening for a clogged PEG tube and reportedly that was cleared. The patient was waiting for EMS transport back to his facility when the nursing staff at 11:30 AM stated to me that the patient had a fever was diaphoretic and had an increased heart rate. Patient's had a prior history of gram-negative sepsis and review of the old records and there is no further history from the patient as he is nonverbal Home Medications Medication Instructions Recorded Confirmed Type apixaban 5 mg tablet (Eliquis) 5 mg feeding tube BID 04/02/23 04/03/23 History scopolamine base 1 mg over 3 days 1 patch transdermal Q3D 04/02/23 04/03/23 History transdermal patch acetaminophen 325 mg/10.15 mL oral 650 mg (20.3 mL) PEG Q6 #250 mL 04/17/23 Rx suspension baclofen 10 mg tablet 20 mg feeding tube Q6H #1 tab 04/17/23 04/03/23 Rx bromocriptine 2.5 mg tablet 2.5 mg feeding tube Q6 #120 tabs 04/17/23 Rx dantrolene 25 mg capsule 100 mg PEG Q6 #120 caps 04/17/23 Rx escitalopram oxalate 5 mg/5 mL 5 mg (5 mL) PEG QAM #150 mL 04/17/23 Rx oral solution ferrous sulfate 220 mg (44 mg 325 mg (7.3864 mL) G-tube Q48H 60 04/17/23 Rx iron)/5 mL oral elixir days #221.592 mL gabapentin 250 mg/5 mL oral 400 mg (8 mL) PEG Q6 #250 mL 04/17/23 Rx solution lactose-reduced food with fiber See Rx Instructions .Route 04/17/23 Rx 0.06 gram-1.5 kcal/mL oral liquid .COMPLEX #5,688 mL (Jevity 1.5 Lance) metoprolol tartrate 25 mg tablet 25 mg PEG BID #60 tabs 04/17/23 Rx multivit and minerals-ferrous 15 ml PEG QAM 30 days #450 mL 04/17/23 Rx gluconate 9 mg iron/15 mL oral liquid (Centrum) Allergies Allergy/AdvReac Type Severity Reaction Status Date / Time No Known Allergies Allergy Unverified 04/04/23 09:03 Past Med/Surg History Medical History (Updated 04/19/23 @ 13:24 by Gael York MD) History of nontraumatic rupture of cerebral aneurysm History of traumatic brain injury Social History Smoking Status: Unknown if ever smoked Second Hand Exposure: No; Do You Dip or Chew Tobacco: No; Hx Alcohol Use: No Hx Substance Use: No Preferred Language: Uruguayan Communication Ability: Unable Orthopedic Surgeon Required: No Beliefs That Will Affect Care: None Current Living Situation: [facility] Feels Safe at Home: Yes Assistive Devices: Hospital Bed, Mechanical Lift and Oxygen - Continuous Review of Systems Unobtainable due to cognitive status Physical Exam Vital Signs Vital Signs - 24 hr 04/19/23 01:17 04/19/23 01:34 04/19/23 02:00 Temperature 37.5 C Temperature Source Axillary Pulse Rate 103 H Pulse Rate [Apical] 105 H 109 H Pulse Rate from SpO2 Sensor Pulse Rhythm Pulse Rhythm [Apical] Pulse Strength [Apical] Respiratory Rate 18 18 18 Respiratory Effort / Characteristics Respiratory Depth Respiratory Pattern Blood Pressure 110/80 Blood Pressure [Right Arm] 110/87 122/77 Blood Pressure Mean 90 Blood Pressure Mean [Right Arm] 94 92 Blood Pressure Position [Right Arm] Pulse Oximetry 100 100 100 Oxygen Delivery Method Trach Collar Trach Collar Trach Collar Oxygen Flow Rate 5 5 5 Fraction of Inspired Oxygen SaO2/FiO2 Ratio Sepsis Recent Fever Within 48 Hours No Sepsis New/Unexplained Change in Mental Status No Sepsis Action Taken by Nursing No Action Required 04/19/23 04:00 04/19/23 06:00 04/19/23 06:23 Temperature 37.5 C Temperature Source Axillary Pulse Rate 109 H Pulse Rate [Apical] 109 H 108 H Pulse Rate from SpO2 Sensor Pulse Rhythm Pulse Rhythm [Apical] Pulse Strength [Apical] Respiratory Rate 18 18 18 Respiratory Effort / Characteristics Respiratory Depth Respiratory Pattern Blood Pressure 120/89 Blood Pressure [Right Arm] 131/98 131/88 Blood Pressure Mean Blood Pressure Mean [Right Arm] 109 102 Blood Pressure Position [Right Arm] Pulse Oximetry 100 100 97 Oxygen Delivery Method Trach Collar Trach Collar Trach Collar Oxygen Flow Rate 5 5 5 Fraction of Inspired Oxygen SaO2/FiO2 Ratio Sepsis Recent Fever Within 48 Hours Sepsis New/Unexplained Change in Mental Status Sepsis Action Taken by Nursing 04/19/23 07:28 04/19/23 09:29 04/19/23 11:35 Temperature Temperature Source Pulse Rate 172 H Pulse Rate [Apical] 104 H 110 H Pulse Rate from SpO2 Sensor Pulse Rhythm Pulse Rhythm [Apical] Pulse Strength [Apical] Respiratory Rate 24 22 Respiratory Effort / Characteristics Respiratory Depth Respiratory Pattern Blood Pressure Blood Pressure [Right Arm] 132/96 132/94 Blood Pressure Mean Blood Pressure Mean [Right Arm] 108 106 Blood Pressure Position [Right Arm] Pulse Oximetry 100 100 Oxygen Delivery Method Trach Collar Trach Collar Oxygen Flow Rate 5 5 Fraction of Inspired Oxygen SaO2/FiO2 Ratio Sepsis Recent Fever Within 48 Hours Sepsis New/Unexplained Change in Mental Status Sepsis Action Taken by Nursing 04/19/23 12:34 04/19/23 11:15 04/19/23 13:10 Temperature 39.6 C H 39.9 C H Temperature Source Axillary Axillary Pulse Rate 178 H Pulse Rate [Apical] 169 H 189 H Pulse Rate from SpO2 Sensor Pulse Rhythm Regular Pulse Rhythm [Apical] Regular Pulse Strength [Apical] Normal Respiratory Rate 19 Respiratory Effort / Characteristics Spontaneous Respiratory Depth Normal Respiratory Pattern Regular Blood Pressure Blood Pressure [Right Arm] 114/99 Blood Pressure Mean Blood Pressure Mean [Right Arm] 104 Blood Pressure Position [Right Arm] Lying Pulse Oximetry 93 94 Oxygen Delivery Method Trach Collar Trach Collar Oxygen Flow Rate 10 Fraction of Inspired Oxygen 40 SaO2/FiO2 Ratio 235 Sepsis Recent Fever Within 48 Hours Sepsis New/Unexplained Change in Mental Status Sepsis Action Taken by Nursing 04/19/23 12:47 04/19/23 12:47 04/19/23 13:17 Temperature Temperature Source Pulse Rate 130 H Pulse Rate [Apical] Pulse Rate from SpO2 Sensor 180 H 130 H Pulse Rhythm Pulse Rhythm [Apical] Pulse Strength [Apical] Respiratory Rate Respiratory Effort / Characteristics Respiratory Depth Respiratory Pattern Blood Pressure 167/127 H Blood Pressure [Right Arm] Blood Pressure Mean 142 Blood Pressure Mean [Right Arm] Blood Pressure Position [Right Arm] Pulse Oximetry 90 95 Oxygen Delivery Method Oxygen Flow Rate Fraction of Inspired Oxygen SaO2/FiO2 Ratio Sepsis Recent Fever Within 48 Hours Sepsis New/Unexplained Change in Mental Status Sepsis Action Taken by Nursing 04/19/23 13:30 04/19/23 13:31 04/19/23 13:31 Temperature Temperature Source Pulse Rate Pulse Rate [Apical] Pulse Rate from SpO2 Sensor 157 H 159 H Pulse Rhythm Pulse Rhythm [Apical] Pulse Strength [Apical] Respiratory Rate Respiratory Effort / Characteristics Respiratory Depth Respiratory Pattern Blood Pressure 158/119 H Blood Pressure [Right Arm] Blood Pressure Mean 145 Blood Pressure Mean [Right Arm] Blood Pressure Position [Right Arm] Pulse Oximetry 96 96 Oxygen Delivery Method Oxygen Flow Rate Fraction of Inspired Oxygen SaO2/FiO2 Ratio Sepsis Recent Fever Within 48 Hours Sepsis New/Unexplained Change in Mental Status Sepsis Action Taken by Nursing GENERAL: Patient is awake, diaphoretic, nonverbal EYES: The conjunctivae are clear. The pupils are round and reactive. EARS, NOSE, MOUTH AND THROAT: The nose is without any evidence of any deformity. Mucous membranes are moist. Tongue is midline. NECK: The neck is nontender and supple. Trach is present with increased secretions RESPIRATORY: Rhonchi bilaterally CARDIOVASCULAR: Tachycardic noted there no murmurs rubs or gallops normal S1 normal S2. GASTROINTESTINAL: The abdomen is soft. There is a feeding tube present left upper quadrant MUSCULOSKELETAL/EXTREMITIES: Patient has bilateral upper extremity and lower extremity flexion contractures SKIN: Patient is diaphoretic NEUROLOGIC: Patient is awake, nonverbal, not interactive Course Reevaluation(s) Reevaluation #1: My repeat examination patient still has diaphoresis he is tachycardic he was given IV Tylenol as well. He has been receiving IV fluids he was then subsequently moved to room 81. Patient is not hypotensive on my reassessment. Time: 13:19 Reevaluation #2: Patient's heart rate has decreased to 130. Patient is also hypertensive. [facility] will discuss with the pharmacist as to providing further dantrolene due to his history of autonomic dysfunction Time: 14:09 Consultations Consultation #1: [facility] Time: 13:05 Administered Medications Acetaminophen (Acetaminophen Susp 325 Mg/10.15 Ml Udc) 650 mg PEG Q6 [facility] Stop: 05/19/23 11:59 Last Admin: 04/19/23 11:25 Dose: 650 mg Documented By: DYLON Apixaban (Apixaban 5 Mg Tablet) 5 mg PO BID [facility] Stop: 05/19/23 08:59 Last Admin: 04/19/23 11:25 Dose: 5 mg Documented By: DYLON Baclofen (Baclofen 10 Mg Tab) 20 mg PEG Q6H [facility] Stop: 05/19/23 08:44 Last Admin: 04/19/23 11:44 Dose: 20 mg Documented By: DYLON Bromocriptine Mesylate (Bromocriptine Mesylate 2.5 Mg Tab) 2.5 mg PO Q6 [facility] Stop: 05/19/23 11:59 Last Admin: 04/19/23 11:25 Dose: 2.5 mg Documented By: DYLON Dantrolene Sodium (Dantrolene Sodium 25 Mg Cap) 100 mg PEG Q6 [facility] Stop: 05/19/23 11:59 Last Admin: 04/19/23 11:25 Dose: 100 mg Documented By: DYLON Escitalopram Oxalate (Escitalopram Oxalate Oral Soln 5 Mg/5 Ml Udp) 5 mg PEG QAM [facility] Stop: 05/19/23 08:59 Last Admin: 04/19/23 11:34 Dose: 5 mg Documented By: DYLON Ferrous Sulfate (Ferrous Sulfate Elix 220mg/5ml) 325 mg GT Q48H [facility] Stop: 05/19/23 08:44 Last Admin: 04/19/23 11:39 Dose: 325 mg Documented By: DYLON Gabapentin (Gabapentin 250 Mg/5 Ml 470 Ml Btl) 400 mg GT Q6 [facility] Stop: 05/19/23 11:59 Last Admin: 04/19/23 13:42 Dose: 400 mg Documented By: NATALIA Metoprolol Tartrate (Metoprolol Tartrate 25 Mg Tab) 25 mg PEG BID [facility] Stop: 05/19/23 08:59 Last Admin: 04/19/23 11:44 Dose: 25 mg Documented By: DYLON Multivitamins/Minerals (Multi Vit W/Minerals Liquid 15 Ml Udp) 15 ml PEG QAM [facility] Stop: 05/19/23 08:59 Last Admin: 04/19/23 11:33 Dose: 15 ml Documented By: DYLON Discontinued Medications Sodium Chloride (Nss) 1,000 mls @ 999 mls/hr IV .Q1H1M ONE Stop: 04/19/23 12:22 Last Infusion: 04/19/23 13:48 Dose: 0 mls/hr Documented By: Admin: 04/19/23 12:15 Dose: 999 mls/hr Documented By: DYLON Piperacillin Sod/Tazobactam Sod (Zosyn) 4.5 gm in 100 mls @ 200 mls/hr IV NOW ONE Stop: 04/19/23 11:51 Last Infusion: 04/19/23 13:48 Dose: 0 mls/hr Documented By: Admin: 04/19/23 12:30 Dose: 200 mls/hr Documented By: DYLON Sodium Chloride (Nss) 1,000 mls @ 999 mls/hr IV .Q1H1M ONE Stop: 04/19/23 12:37 Last Infusion: 04/19/23 13:48 Dose: 0 mls/hr Documented By: Admin: 04/19/23 12:15 Dose: 999 mls/hr Documented By: DYLON Sodium Chloride (Nss) 500 mls @ 999 mls/hr IV .Q31M ONE Stop: 04/19/23 12:07 Last Admin: 04/19/23 13:43 Dose: 999 mls/hr Documented By: NATALIA Acetaminophen (Ofirmev) 500 mg in 50 mls @ 200 mls/hr IV NOW STA Stop: 04/19/23 13:20 Last Admin: 04/19/23 13:43 Dose: 200 mls/hr Documented By: NATALIA Critical Care Time Critical Care Time: Yes Total Critical Care Time: 40 I have personally spent greater than 40 minutes of critical care time in the direct management of this patient. This includes bedside care, interpretation of diagnostic studies, and testing, discussion with consultants, patient, and family members, and other required patient management activities. These minutes are in excess of all separately billable procedures. Medical Decision Making Medical Records Attestation: I reviewed the patient's medical records. Home Medications Current Medication List: was personally reviewed by fl Laboratory Data Attestation: I reviewed the patient's lab results. Lab results interpreted by me patient has an elevated white blood cell count, patient has an elevated lactate consistent with sepsis 04/19/23 12:35 04/19/23 12:35 Lab Results 04/19/23 04/19/23 04/19/23 Range/Units 11:14 12:30 12:30 WBC (4.8-10.8) K/ul RBC (4.70-6.10) M/uL Hgb (14.0-18.0) g/dl Hct (42.0-52.0) % MCV (80.0-100.0) fL MCH (25.0-34.0) pg MCHC (32.0-36.0) g/dL RDW Std Deviation (36.4-46.3) fL RDW Coeff of Dario (11.5-14.5) % Plt Count (130-400) K/uL MPV (9.4-12.4) fL Immature Gran % (Auto) % Neut % (Auto) % Lymph % (Auto) % Arroyo % (Auto) % Eos % (Auto) % Baso % (Auto) % Neut # (Auto) (1.40-6.50) K/uL Lymph # (Auto) (1.20-3.40) K/uL Arroyo # (Auto) (0.11-0.59) K/uL Eos # (Auto) (0.00-0.50) K/uL Baso # (Auto) (0.00-0.20) K/uL Immature Gran # (Auto) (0.01-0.20) K/uL Sodium (136-145) mmol/L Potassium Chloride (98-107) mmol/L Carbon Dioxide (21-32) mmol/L Anion Gap (3-11) BUN (6-23) mg/dl Creatinine (0.6-1.4) mg/dl Est Cr Clr Drug Dosing ml/min Est GFR ( Amer) ml/min Est GFR (Non-Af Amer) ml/min BUN/Creatinine Ratio (10-20) Glucose (70-99(Fasting)) mg/dl POC Glucose 113 H (70-99) mg/dl Lactate 4.8 H* (0.4-2.0) mmol/L Calcium (8.6-10.3) mg/dl Magnesium (1.7-2.4) mg/dl Total Bilirubin (0.2-1.0) mg/dl Direct Bilirubin AST (13-39) U/L ALT (7-52) U/L Alkaline Phosphatase (34-104) U/L Total Protein (6.0-8.3) gm/dl Albumin (3.4-5.0) gm/dl Procalcitonin Urine Color Dark Yellow Urine Appearance Turbid A (Clear) Urine pH 5.5 (4.5-7.5) Ur Specific Amity 1.030 (1.000-1.030) Urine Protein 3+ H (Negative) Urine Glucose (UA) Negative (Negative) Urine Ketones Negative (Negative) Urine Blood 3+ H (Negative) Urine Nitrite Negative (Negative) Urine Bilirubin 1+ H (Negative) Urine Urobilinogen Negative (Negative) Ur Leukocyte Esterase 1+ H (Negative) Urine WBC (Auto) 10-30 H (0-5) /hpf Urine RBC (Auto) >30 H (0-4) /hpf U Hyaline Cast (Auto) 1-5 (0-5) /lpf U Epithel Cells (Auto) 5-10 H (0-5) /lpf Urine Bacteria (Auto) 2+ H (Negative) Ur Renal Epithelial Cell Not Reportable Urine Crystals Not Reportable Calcium Oxalate Crystal Present A (None Prsent) Urine Yeast Not Reportable SARS-CoV-2 (PCR) (Negative) Influenza Type A (PCR) (Neg) Influenza Type B (PCR) (Neg) RSV (RT-PCR) (Neg) 04/19/23 04/19/23 04/19/23 Range/Units 12:35 12:35 12:35 WBC 15.76 H (4.8-10.8) K/ul RBC 4.05 L (4.70-6.10) M/uL Hgb 12.6 L (14.0-18.0) g/dl Hct 37.9 L (42.0-52.0) % MCV 93.6 (80.0-100.0) fL MCH 31.1 (25.0-34.0) pg MCHC 33.2 (32.0-36.0) g/dL RDW Std Deviation 50.2 H (36.4-46.3) fL RDW Coeff of Dario 14.6 H (11.5-14.5) % Plt Count 658 H (130-400) K/uL MPV 10.8 (9.4-12.4) fL Immature Gran % (Auto) 0.4 % Neut % (Auto) 77.6 % Lymph % (Auto) 15.0 % Arroyo % (Auto) 6.1 % Eos % (Auto) 0.3 % Baso % (Auto) 0.6 % Neut # (Auto) 12.23 H (1.40-6.50) K/uL Lymph # (Auto) 2.37 (1.20-3.40) K/uL Arroyo # (Auto) 0.96 H (0.11-0.59) K/uL Eos # (Auto) 0.05 (0.00-0.50) K/uL Baso # (Auto) 0.09 (0.00-0.20) K/uL Immature Gran # (Auto) 0.06 (0.01-0.20) K/uL Sodium 142 (136-145) mmol/L Potassium TNP Chloride 103 (98-107) mmol/L Carbon Dioxide 22 (21-32) mmol/L Anion Gap 17 H (3-11) BUN 29 H (6-23) mg/dl Creatinine 0.90 D (0.6-1.4) mg/dl Est Cr Clr Drug Dosing 94.3 ml/min Est GFR ( Amer) 130.5 ml/min Est GFR (Non-Af Amer) 112.6 ml/min BUN/Creatinine Ratio 32.2 H (10-20) Glucose 108 H (70-99(Fasting)) mg/dl POC Glucose (70-99) mg/dl Lactate (0.4-2.0) mmol/L Calcium 10.1 (8.6-10.3) mg/dl Magnesium 1.7 (1.7-2.4) mg/dl Total Bilirubin 0.8 (0.2-1.0) mg/dl Direct Bilirubin TNP AST 33 (13-39) U/L ALT 18 (7-52) U/L Alkaline Phosphatase 92 (34-104) U/L Total Protein 8.4 H (6.0-8.3) gm/dl Albumin 4.4 (3.4-5.0) gm/dl Procalcitonin Cancelled Urine Color Urine Appearance (Clear) Urine pH (4.5-7.5) Ur Specific Amity (1.000-1.030) Urine Protein (Negative) Urine Glucose (UA) (Negative) Urine Ketones (Negative) Urine Blood (Negative) Urine Nitrite (Negative) Urine Bilirubin (Negative) Urine Urobilinogen (Negative) Ur Leukocyte Esterase (Negative) Urine WBC (Auto) (0-5) /hpf Urine RBC (Auto) (0-4) /hpf U Hyaline Cast (Auto) (0-5) /lpf U Epithel Cells (Auto) (0-5) /lpf Urine Bacteria (Auto) (Negative) Ur Renal Epithelial Cell Urine Crystals Calcium Oxalate Crystal (None Prsent) Urine Yeast SARS-CoV-2 (PCR) (Negative) Influenza Type A (PCR) (Neg) Influenza Type B (PCR) (Neg) RSV (RT-PCR) (Neg) 04/19/23 Range/Units Unknown WBC (4.8-10.8) K/ul RBC (4.70-6.10) M/uL Hgb (14.0-18.0) g/dl Hct (42.0-52.0) % MCV (80.0-100.0) fL MCH (25.0-34.0) pg MCHC (32.0-36.0) g/dL RDW Std Deviation (36.4-46.3) fL RDW Coeff of Dario (11.5-14.5) % Plt Count (130-400) K/uL MPV (9.4-12.4) fL Immature Gran % (Auto) % Neut % (Auto) % Lymph % (Auto) % Arroyo % (Auto) % Eos % (Auto) % Baso % (Auto) % Neut # (Auto) (1.40-6.50) K/uL Lymph # (Auto) (1.20-3.40) K/uL Arroyo # (Auto) (0.11-0.59) K/uL Eos # (Auto) (0.00-0.50) K/uL Baso # (Auto) (0.00-0.20) K/uL Immature Gran # (Auto) (0.01-0.20) K/uL Sodium (136-145) mmol/L Potassium Chloride (98-107) mmol/L Carbon Dioxide (21-32) mmol/L Anion Gap (3-11) BUN (6-23) mg/dl Creatinine (0.6-1.4) mg/dl Est Cr Clr Drug Dosing ml/min Est GFR ( Amer) ml/min Est GFR (Non-Af Amer) ml/min BUN/Creatinine Ratio (10-20) Glucose (70-99(Fasting)) mg/dl POC Glucose (70-99) mg/dl Lactate (0.4-2.0) mmol/L Calcium (8.6-10.3) mg/dl Magnesium (1.7-2.4) mg/dl Total Bilirubin (0.2-1.0) mg/dl Direct Bilirubin AST (13-39) U/L ALT (7-52) U/L Alkaline Phosphatase (34-104) U/L Total Protein (6.0-8.3) gm/dl Albumin (3.4-5.0) gm/dl Procalcitonin Urine Color Urine Appearance (Clear) Urine pH (4.5-7.5) Ur Specific Amity (1.000-1.030) Urine Protein (Negative) Urine Glucose (UA) (Negative) Urine Ketones (Negative) Urine Blood (Negative) Urine Nitrite (Negative) Urine Bilirubin (Negative) Urine Urobilinogen (Negative) Ur Leukocyte Esterase (Negative) Urine WBC (Auto) (0-5) /hpf Urine RBC (Auto) (0-4) /hpf U Hyaline Cast (Auto) (0-5) /lpf U Epithel Cells (Auto) (0-5) /lpf Urine Bacteria (Auto) (Negative) Ur Renal Epithelial Cell Urine Crystals Calcium Oxalate Crystal (None Prsent) Urine Yeast SARS-CoV-2 (PCR) NEGATIVE (Negative) Influenza Type A (PCR) Negative (Neg) Influenza Type B (PCR) Negative (Neg) RSV (RT-PCR) Negative (Neg) Imaging Data Attestation: I personally reviewed and interpreted this imaging study as follows: My Impression: Chest x-ray interpreted by me negative for infiltrate Radiologist's Impression: Chest X-Ray 04/19/23 11:22 XR chest 1V portable HISTORY: 32 years-old Male Sepsis acute sepsis COMPARISON: 04/03/2023 TECHNIQUE: AP view of the chest FINDINGS: Stable positioning of the tracheostomy cannula. Cardiomediastinal and hilar silhouettes are unchanged. A catheter projects over the left chest. No pneumothorax, pleural effusion, airspace consolidation or pulmonary edema. Degenerative changes of the shoulders and spine. IMPRESSION: No acute process of the chest. ACT 112: Negative or not required by law. The above report was generated using voice recognition software. It may contain grammatical, syntax or spelling errors. Electronically signed by: Corey Rodgers M.D. 04/19/2023 11:56 AM Abdomen/Pelvis CT 04/19/23 11:[address] WITHOUT CONTRAST CT DOSE: 871.62 mGy.cm HISTORY: Acute sepsis sepsis TECHNIQUE: Multiaxial CT images of the abdomen and pelvis were performed without contrast. A dose lowering technique was utilized adhering to the principles of ALARA. COMPARISON STUDY: 04/07/2023 FINDINGS: Motion degraded exam. Study is limited without the use of IV contrast and also secondary to residual enteric contrast within the colon. Mild right basilar atelectasis. No free air identified. Unenhanced spleen, visualized pancreas, adrenal glands and liver appear unremarkable. Unremarkable kidneys. Decompressed urinary bladder with Silva catheter. Unremarkable abdominal aorta. No bowel obstruction or bowel wall thickening. A gastrostomy tube is in place. Small amount of free pelvic fluid. Normal appendix. Gaseous distention of the colon. Shunt catheter distal tip projects in the left inferior pelvis. 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 No acute fracture. IMPRESSION: 1. Limited study as above. 2. No bowel obstruction or bowel wall thickening. 3. Normal appendix. 4. Shunt catheter distal tip terminates in the left hemipelvis. Small amount of ascites. ACT 112: Negative or not required by law. The above report was generated using voice recognition software. It may contain grammatical, syntax or spelling errors. Electronically signed by: Corey Rodgers M.D. 04/19/2023 1:21 PM ECG Data Attestation: I personally reviewed and interpreted this ECG as follows: Additional Comments: EKG interpreted by me sinus tachycardia versus SVT rate of 179 with a poor baseline is wavy with a short [place] nonspecific ST-T change with normal axis Telemetry interpreted by me sinus tachycardia rate of 154 at 1330 hrs. [facility] Narrative Medical decision making differential diagnosis includes sepsis, bacteremia, electrolyte abnormality, pneumonia, intra-abdominal process, urinary tract in fection Plan is to check sepsis labs and the sepsis protocol with IV fluids was started External medical records were reviewed of the patient's prior presentations in mid March in which the patient had gram-negative sepsis Patient was started on 30 mL/kg of IV fluids, the patient was given IV Zosyn, the case was discussed with the [facility] hospitalist for admission for sepsis Impression & Plan Severe sepsis, Sepsis, Blockage of feeding tube, Acute UTI (urinary tract infection), Autonomic dysfunction Discharge Plan Visit Data Chief Complaint: Feeding/PEG Tube Replacement Stated Complaint: FEEDING TUBE OBSTRUCTION ED Provider: Faheem Ortiz Discharge Problem: Severe sepsis, Sepsis, Blockage of feeding tube, Acute UTI (urinary tract infection), Autonomic dysfunction Patient Disposition: Admitted As Inpatient Condition: Fair Discharge Instructions Activity Restrictions/Additional Instructions: Please continue all medications and routine tube feeds as previously prescribed. Please return to the ER for any new or concerning symptoms. Interventions: ED Discharge Assessment Last Done: 04/19/23 06:23 Forms Stand Alone Forms: My [facility], Important Visit Information Prescriptions Prescriptions: No Action scopolamine base 1 mg over 3 days Patch 3 Day 1 patch TRANSDERMAL Q3D Eliquis 5 mg Tablet 5 mg feeding tube BID dantrolene 25 mg Capsule 100 mg PEG Q6 Qty: 120 11RF gabapentin 250 mg/5 mL Solution 400 mg PEG Q6 Qty: 250 11RF bromocriptine 2.5 mg Tablet 2.5 mg feeding tube Q6 Qty: 120 11RF escitalopram oxalate 5 mg/5 mL Solution 5 mg PEG QAM Qty: 150 11RF metoprolol tartrate 25 mg Tablet 25 mg PEG BID Qty: 60 11RF acetaminophen 325 mg/10.15 mL Suspension 650 mg PEG Q6 Qty: 250 0RF Centrum 9 mg iron/15 mL Liquid 15 ml PEG QAM 30 Days Qty: 450 11RF ferrous sulfate 220 mg (44 mg iron)/5 mL Elixir 325 mg G-tube Q48H 60 Days Qty: 221.592 0RF baclofen 10 mg Tablet 20 mg feeding tube Q6H Qty: 1 0RF Jevity 1.5 Lance 0.06 gram-1.5 kcal/mL liquid See Rx Instructions .ROUTE .COMPLEX Qty: 5688 11RF Rx Instructions: 60cc/hr via PEG tube CONTINUOUSLY. Referrals Referrals: Edgardo Pruett [Primary Care Provider] -
[2023-04-19] MEDS: FERROUS SULFATE ELIX 220MG/5ML GT SCH (11:39)
[2023-04-19] MEDS: METOPROLOL TARTRATE 25 MG TAB PEG SCH ×2 (11:44→20:48)
[2023-04-19] MEDS: BACLOFEN 10 MG TAB PEG SCH ×3 (11:44→20:48)
--- NOTE | 2023-04-19 11:58 | XRay Report ---
XR chest 1V portable HISTORY: 32 years-old Male Sepsis acute sepsis COMPARISON: 04/03/2023 TECHNIQUE: AP view of the chest FINDINGS: Stable positioning of the tracheostomy cannula. Cardiomediastinal and hilar silhouettes are unchanged . A catheter projects over the left chest. No pneumothorax, pleural effusion, airspace consolidation or pulmonary edema. Degenerative changes of the shoulders and spine. IMPRESSION: No acute process of the chest. ACT 112: Negative or not required by law. The above report was generated using voice recognition software. It may contain grammatical, syntax o r spelling errors. Electronically signed by: Corey Rodgers M.D. 04/19/2023 11:56 AM
[2023-04-19] MEDS ORDERED: ACETAMINOPHEN SUSP 325 MG/10.15 ML UDC PEG SCH (12:00)
[2023-04-19] MEDS ORDERED: GABAPENTIN 150 MG/3 ML UDP GT SCH (12:00)
[2023-04-19] MEDS ORDERED: ACETAMINOPHEN 1,000 MG/100 ML VIAL IV STA (13:03)
[2023-04-19] MEDS ORDERED: ACETAMINOPHEN 500 MG/50 ML VIAL IV STA (13:06)
[2023-04-19 13:13] LABS: Basophils # (auto) 0.09 K/uL (0.00-0.20); Basophils % (auto) 0.6 %; Eosinophils # (auto) 0.05 K/uL (0.00-0.50); Eosinophils % (auto) 0.3 %; Hematocrit (blood only) 37.9 % (42.0-52.0); Hemoglobin 12.6 g/dl (14.0-18.0); Immature Granulocytes # (auto) 0.06 K/uL (0.01-0.20); Immature Granulocytes % (auto) 0.4 %; Lymphocytes # (auto) 2.37 K/uL (1.20-3.40); Mean Corpuscular Hemoglobin 31.1 pg (25.0-34.0); Mean Corpuscular Hgb Conc 33.2 g/dL (32.0-36.0); Mean Corpuscular Volume 93.6 fL (80.0-100.0); Mean Platelet Volume 10.8 fL (9.4-12.4); Monocytes # (auto) 0.96 K/uL (0.11-0.59); Monocytes % (auto) 6.1 %; Neutrophils # (auto) 12.23 K/uL (1.40-6.50); Neutrophils % (auto) 77.6 %; Platelet Count 658 K/uL (130-400); RDW Coefficient of Variation 14.6 % (11.5-14.5); RDW Standard Deviation 50.2 fL (36.4-46.3); Red Blood Count 4.05 M/uL (4.70-6.10); White Blood Count 15.76 K/ul (4.8-10.8)
--- NOTE | 2023-04-19 13:23 | CT Scan Report ---
ABDOMEN AND PELVIS CT WITHOUT CONTRAST CT DOSE: 871.62 mGy.cm HISTORY: Acute sepsis sepsis TECHNIQUE: Multiaxial CT images of the abdomen and pelvis were performed without contrast. A dose lo wering technique was utilized adhering to the principles of ALARA. COMPARISON STUDY: 04/07/2023 FINDINGS: Motion degraded exam. Study is limited without the use of IV contrast and also secondary to residual enteric contrast within the colon. Mild right basilar atelectasis. No free air identified. Unenhanced spleen, visualized pancreas, adrenal glands and liver appear unremarkable. Unremarkable ki dneys. Decompressed urinary bladder with Silva catheter. Unremarkable abdominal aorta. No bowel obstruction or bowel wall thickening. A gastrostomy tube is in place. Small amount of free p elvic fluid. Normal appendix. Gaseous distention of the colon. Shunt catheter distal tip projects in the left inferior pelvis. 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 No acute fracture. IMPRESSION: 1. Limited study as above. 2. No bowel obstruction or bowel wall thickening. 3. Normal appendix. 4. Shunt catheter distal tip terminates in the left hemipelvis. Small amount of ascites. ACT 112: Negative or not required by law. The above report was generated using voice recognition software. It may contain grammatical, syntax o r spelling errors. Electronically signed by: Corey Rodgers M.D. 04/19/2023 1:21 PM
[2023-04-19 13:37] LABS: Appearance Urine Turbid (Clear); Blood Urine 3+ (Negative); Color Urine Dark Yellow; Glucose Urine UA Negative (Negative); Ketones Urine Negative (Negative); Leukocyte Esterase Urine 1+ (Negative); Nitrite Urine Negative (Negative); Protein Urine 3+ (Negative); Urobilinogen Urine Negative (Negative); pH Urine 5.5 (4.5-7.5)
[2023-04-19 13:38] LABS: Influenza A virus by PCR Negative (Neg); Influenza B virus by PCR Negative (Neg); RSV by PCR Negative (Neg); SARS CoV2 RNA(COVID-19) Ceph NEGATIVE (Negative)
[2023-04-19 13:40] LABS: Alanine Aminotransferase 18 U/L (7-52); Albumin Level 4.4 gm/dl (3.4-5.0); Alkaline Phosphatase 92 U/L (34-104); Anion Gap 17 (3-11); Aspartate Aminotransferase 33 U/L (13-39); BUN Creatinine Ratio 32.2 (10-20); Bilirubin,Total 0.8 mg/dl (0.2-1.0); Blood Urea Nitrogen 29 mg/dl (6-23); Calcium 10.1 mg/dl (8.6-10.3); Carbon Dioxide 22 mmol/L (21-32); Chloride 103 mmol/L (98-107); Creatinine Clr Calc Pharmacy 94.3 ml/min; Est GFR (African American) 130.5 ml/min; Est GFR (Non-African American) 112.6 ml/min; Glucose 108 mg/dl (70-99(Fasting)); Magnesium 1.7 mg/dl (1.7-2.4); Sodium 142 mmol/L (136-145); Total Protein 8.4 gm/dl (6.0-8.3)
--- NOTE | 2023-04-19 13:40 | History & Physical Report ---
Date of Service April 19, 2023 Assessment & Plan (1) Sepsis: Plan: Tachycardia, fever. DDx includes paroxysmal autonomic dysfunction and sepsis While awaiting transport back to [facility] patient developed acute tachycardia, fever at 39.6, diaphoresis, and sweating. Patient has leukocytosis, procalcitonin is elevated, and is febrile suggestive of sepsis. Lactate elevated 4.8, downtrending following 30cc/kg fluids. Urine output remains poor, additional bolus given Patient w/ hx of febrile and tachycardic decompensation when his medications were missed in the past, did not receive bromocriptine/dantrolene/gabapentin while PEG tube was clogged. These were given at approximately 1130am in ER 04/19 and scheduled. Suspect severe autonomic dysfunction with paroxysmal sympathetic storm which patient has had previous hospitalizations and when medications have been missed. Discussed with neurosurgery as noted below - Chronic sacral wound is present, posterior calves with pressure wounds which are not infected appearing. Will continue sepsis tx and follow bc/uc. UA from [facility] infected appearing. Past cx + for Kleb and Pseudomonas. - Chest x-ray negative. CTA/P naf COVID, flu, RSV -Continue on cefepime/vancomycin, BC/UC (2) History of nontraumatic rupture of cerebral aneurysm: Plan: Ruptured intracranial aneurysm beginning of 2022, with craniotomy and hematoma evacuation at [facility], subsequently with skull plate replantation November 2022 Nonverbal, does not follow commands since. PEG tube in place since August 2022 which has clogged frequently, although generally able to be well maintained during hospitalizations Guardian/surrogate decision makers patient's mother Sharlene who reaffirms full code, and he would want and she wants any and all available medical inter ventions to sustain and extend his life Continue bromocryptine 2.5 mg every 6 hours, dantrolene 100 mg every 6 hours, gabapentin 400 mg every 6 hours, baclofen 20mg q6h (3) Autonomic dysfunction: Plan: History of severe tachycardia, fever, sweating, and rigidity with paroxysmal sympathetic hyperactivity and dysregulation in the past Amitriptyline/dantrolene/gabapentin/baclofen/morphine as noted Did discuss with neurosurgery at [facility]. Do not have any other specific recommendations at this time, recommended checking a PULLMAN CAR REPAIRER shunt and head imaging to ensure stability. If this is related to autonomic dysfunction then expect this to get better gradually as medications have been resumed, and do not recommend any additional adjuncts or loading doses. If patient worsens then would benefit from neuro ICU however they are not the closest appropriate facility, did discuss this with patient's mother as well who is not sure whether she would want transfer to [place] or [place] and in the emergency, reports she would like some time to think about this. On reassessment he is clinically improving, heart rate is down trended to 100. (4) History of DVT (deep vein thrombosis): Plan: Apixaban 5 mg p.o. twice daily (5) Decubitus ulcer of calf, unstageable: (6) Moderate protein-calorie malnutrition: Plan: - Nutrition consult (7) S/P PULLMAN CAR REPAIRER shunt: Plan: - Noted, tip in place on CT. Imaging series ordered as noted after discussion with neurosurgery Plan DVT ppx: anticoagulated Diet: PEG Dispo: Code: Full Code History of Present Illness [facility] He is a 30-year-old male [facility] nonverbal resident with a history of chronic trach, PEG tube, and nonverbal status following a history of ruptured brain aneurysm in the being of 2022. Subsequent to this patient had a craniotomy and hematoma evacuation at [facility], stabilized, and had skull plate replanted November 2022. Patient has been at [facility] since, has had intermittent PEG tube exchanges due to clogging, and was last admitted to this facility 04/03/2023 - 04/17/2023 for probable right lower lobe pneumonia? Bacterial tracheitis. Infectious disease was consulted during that admission, he was recommended to continue cefepime through 04/14, and vancomycin was continued 04/02 - 04/11 and then discontinued with no evidence of MRSE/CONS. Pt w/ autonomic dysregulation during that admission due to med reconciliation error, greatly improved with dantrolene/bromocryptine administration. Ry presented to the ER overnight with concern for blocked feeding tube. EMS attempted to do so to unclog the tube but were unsuccessful and sent him to the ER for potential feeding tube replacement. Tube was cleared in the ER and patient was pending transport back to [facility], at 11:30 AM on reassessment patient was with rapid clinical worsening, appeared febrile and diaphoretic, temperature of 39.6, and heart rate had increased from 90slow 100-170s. Lactate elevated.Patient subsequently ordered 30+ cc per kilogram per sepsis prior to, blood cultures were drawn, quad screen sent, treated empirically with Zosyn, called and he was recommended for admission for treatment of sepsis. 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 Allergies Allergy/AdvReac Type Severity Reaction Status Date / Time No Known Allergies Allergy Unverified 04/04/23 09:03 Home Medications Medication Instructions Recorded Confirmed Type apixaban 5 mg tablet (Eliquis) 5 mg feeding tube BID 04/02/23 04/03/23 History scopolamine base 1 mg over 3 days 1 patch transdermal Q3D 04/02/23 04/03/23 History transdermal patch acetaminophen 325 mg/10.15 mL oral 650 mg (20.3 mL) PEG Q6 #250 mL 04/17/23 Rx suspension baclofen 10 mg tablet 20 mg feeding tube Q6H #1 tab 04/17/23 04/03/23 Rx bromocriptine 2.5 mg tablet 2.5 mg feeding tube Q6 #120 tabs 04/17/23 Rx dantrolene 25 mg capsule 100 mg PEG Q6 #120 caps 04/17/23 Rx escitalopram oxalate 5 mg/5 mL 5 mg (5 mL) PEG QAM #150 mL 04/17/23 Rx oral solution ferrous sulfate 220 mg (44 mg 325 mg (7.3864 mL) G-tube Q48H 60 04/17/23 Rx iron)/5 mL oral elixir days #221.592 mL gabapentin 250 mg/5 mL oral 400 mg (8 mL) PEG Q6 #250 mL 04/17/23 Rx solution lactose-reduced food with fiber See Rx Instructions .Route 04/17/23 Rx 0.06 gram-1.5 kcal/mL oral liquid .COMPLEX #5,688 mL (Jevity 1.5 Lance) metoprolol tartrate 25 mg tablet 25 mg PEG BID #60 tabs 04/17/23 Rx multivit and minerals-ferrous 15 ml PEG QAM 30 days #450 mL 04/17/23 Rx gluconate 9 mg iron/15 mL oral liquid (Centrum) Past Med/Surg History Medical History (Updated 04/19/23 @ 13:24 by Gael York MD) History of nontraumatic rupture of cerebral aneurysm History of traumatic brain injury Social History Smoking Status: Unknown if ever smoked Second Hand Exposure: No; Do You Dip or Chew Tobacco: No; Hx Alcohol Use: No Hx Substance Use: No Preferred Language: Guamanian Communication Ability: Unable Finish Painter Required: No Beliefs That Will Affect Care: None Current Living Situation: [facility] Feels Safe at Home: Yes Assistive Devices: Hospital Bed, Mechanical Lift and Oxygen - Continuous Physical Exam Physical Exam: General: Nonverbal. Diaphoretic. Does not follow commands. Lungs: Breath sounds coarse, with some rhonchi bilaterally. No wheezing Abdomen soft, without guarding Skin: Calves with pressure ulcers bilaterally, these are without erythema/warmt h/tenderness/drainage. Sacrum is with thin layer of skin overlying and no purulence/discharge. Sacral pressure ulcer is as noted in image below. Results & Data Results & Data Vital Signs (Past 12 Hours) Vital Signs Temp Pulse Pulse Resp BP BP Pulse Ox 04/19/23 13:10 178 H 94 04/19/23 11:15 39.9 C H 189 H 04/19/23 12:34 39.6 C H 169 H 19 114/99 93 04/19/23 11:35 172 H 04/19/23 09:29 110 H 22 132/94 100 04/19/23 07:28 104 H 24 132/96 100 04/19/23 06:23 37.5 C 109 H 18 120/89 97 04/19/23 06:00 108 H 18 131/88 100 04/19/23 04:00 109 H 18 131/98 100 04/19/23 02:00 109 H 18 122/77 100 04/19/23 01:34 105 H 18 110/87 100 04/19/23 01:17 37.5 C 103 H 18 110/80 100 O2 Del Method O2 Flow Rate FiO2 04/19/23 13:10 Trach Collar 10 40 04/19/23 11:15 04/19/23 12:34 Trach Collar 04/19/23 11:35 04/19/23 09:29 Trach Collar 5 04/19/23 07:28 Trach Collar 5 04/19/23 06:23 Trach Collar 5 04/19/23 06:00 Trach Collar 5 04/19/23 04:00 Trach Collar 5 04/19/23 02:00 Trach Collar 5 04/19/23 01:34 Trach Collar 5 04/19/23 01:17 Trach Collar 5 PG Care Time/CCT Total # of Minutes Spent Total Time Spent with Patient: Total time spent is greater than 50% in coordination of care (as documented) at patient's floor/unit and/or counseling patient: Coding Level of Care Code 47032 INT INP/OBS CARE 375MIN Diagnoses Sepsis A41.9 History of nontraumatic rupture of cerebral aneurysm Z86.79 Autonomic dysfunction G90.9 History of DVT (deep vein thrombosis) Z86.718 Decubitus ulcer of calf, unstageable L89.890 Moderate protein-calorie malnutrition E44.0 S/P PULLMAN CAR REPAIRER shunt Z98.2
[2023-04-19 13:41] LABS: Bilirubin Urine 1+ (Negative)
[2023-04-19] MEDS: GABAPENTIN 250 MG/5 ML 470 ML BTL GT SCH ×2 (13:42→20:24)
[2023-04-19 13:52] LABS: Bacteria Urine Automated 2+ (Negative); Calcium Oxalate Crystals Urine Present (None Prsent); RBC Urine Automated >30 /hpf (0-4)
[2023-04-19] MEDS ORDERED: MoRPHine SULFATE 2 MG/ML CARP IV STA (14:11)
[2023-04-19 14:21] LABS: Base Excess VBG 4.9 mEq/L; HCO3 VBG 29 mmol/L; Oxygen Saturation VBG 69.7 %; PCO2 VBG 41 mmHg (38-50); PO2 VBG 43 mmHg; pH VBG 7.46 (7.36-7.41)
[2023-04-19 14:52] LABS: Potassium 5.4 mmol/L (3.5-5.1)
[2023-04-19] MEDS ORDERED: VANCOMYCIN CONSULT ACTIVE PRN (15:29)
[2023-04-19] MEDS ORDERED: VANCOMYCIN HCL 1,500 MG in SODIUM CHLORIDE 0.9% 500 ML IV ONE (15:29)
[2023-04-19] MEDS ORDERED: SODIUM CHLORIDE 0.9% 1,000 ML IV SCH (15:45)
[2023-04-19] MEDS ORDERED: VANCOMYCIN HCL 1,250 MG in SODIUM CHLORIDE 0.9% 250 ML IV ONE (16:00)
--- NOTE | 2023-04-19 16:51 | Electrocardiogram Report ---
Test Reason : Blood Pressure : / mmHG Vent. Rate : 144 BPM Atrial Rate : 144 BPM P-R Int : 112 ms QRS Dur : 070 ms QT Int : 272 ms P-R-T Axes : 046 -18 039 degrees QTc Int : 421 ms Sinus tachycardia Possible Left atrial enlargement Borderline ECG When compared with ECG of 19-APR-2023 12:19, (unconfirmed) No significant change was found Confirmed by Isac Landeros ([id number]) on 04/19/2023 4:51:30 PM Referred By: [facility] Confirmed By:Amilcar Landeros
[2023-04-19] MEDS: CEFEPIME 2,000 MG in SYRINGE 0 ML IV SCH (16:53)
--- NOTE | 2023-04-19 16:53 | Electrocardiogram Report ---
Test Reason : Blood Pressure : / mmHG Vent. Rate : 179 BPM Atrial Rate : 179 BPM P-R Int : 088 ms QRS Dur : 068 ms QT Int : 278 ms P-R-T Axes : 066 -06 053 degrees QTc Int : 480 ms Sinus tachycardia Nonspecific ST abnormality Abnormal ECG When compared with ECG of 03-APR-2023 12:18, Vent. rate has increased BY [address] now depressed in Lateral leads Nonspecific T wave abnormality no longer evident in Inferior leads T wave amplitude has increased in Anterior leads Confirmed by Isac Landeros ([id number]) on 04/19/2023 4:52:58 PM Referred By: [facility] Confirmed By:Amilcar Landeros
--- NOTE | 2023-04-19 17:49 | CT Scan Report ---
CT head/brain wo con CLINICAL HISTORY: 32 years-old Male with parox symp. hyperactivity, hx vp delivery shunt per neuro. Acute hea dache TECHNIQUE: Multiple axial CT images of the head were obtained without contrast. A dose lowering tech nique was utilized adhering to the principles of ALARA. CT DOSE: 625.8 mGy.cm COMPARISON: 04/07/2023. FINDINGS: Motion degraded exam. Left anterior frontal approach ventriculostomy catheter is noted with distal ti p of the catheter terminating within the frontal horn of the right lateral ventricle. Transverse dime nsion lateral ventricles is 3.9 cm, previously 3.7 cm. Right-sided craniotomy changes with a large ar ea of encephalomalacia involving the right MCA territory. Additional encephalomalacia within the left basal ganglia/thalamus. Dural thickening lateral to the right cerebral hemisphere is is unchanged, l ikely a postsurgical finding. No acute intracranial hemorrhage, midline shift, intracranial mass, hyd rocephalus, territorial ischemia or abnormal extra-axial collection. Right-sided craniotomy with hete rogeneous appearance of the skull at the craniotomy site with multifocal lucent changes of unknown ch ronicity. 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 The paranasal sinuses, m astoid air cells, and middle ear cavities are clear. IMPRESSION: 1. Motion degraded exam without acute intracranial abnormality identified. 2. Right-sided craniotomy changes with right MCA territory encephalomalacia. 3. Ventricular dilation is unchanged from prior with a left anterior frontal approach ventriculostomy catheter in place. ACT 112: Negative or not required by law. The above report was generated using voice recognition software. It may contain grammatical, syntax o r spelling errors. Electronically signed by: Corey Rodgers M.D. 04/19/2023 5:48 PM
--- NOTE | 2023-04-19 18:06 | XRay Report ---
XR abdomen min 2V, XR chest 2V PA/lateral, XR skull <4V, XR cervical spine 2 or 3V HISTORY: 32 years-old Male Visualize Shunt shunt series radiographs COMPARISON: KUB 04/16/2023, chest radiograph 04/19/2023 TECHNIQUE: 2 views of the abdomen, 3 views of the cervical spine, 2 views of the chest and 2 views of the skull FINDINGS: SKULL: Visualized shunt catheter appears intact coursing along left neck and head. Craniotomy changes. No ac javed fracture. CERVICAL SPINE: No acute fracture or subluxation. Visualized shunt catheter appears intact. Tracheostomy cannula. CHEST: Visualize shunt catheter coursing along the left chest appears intact. Tracheostomy cannula. Subtle ill-defined right upper and midlung opacities. Cardiac silhouette is unchanged. No pleural effusion o r pneumothorax. ABDOMEN: Gastrostomy tube. Contrast again noted within the colon. Moderate fecal retention. The visualized iraj nt catheter is intact, distal tip terminating within the left hemipelvis. IMPRESSION: 1. The visualized shunt catheter appears intact. 2. Subtle ill-defined right lung opacities. Correlate clinically to exclude pneumonia. 3. Nonobstructive bowel gas pattern. ACT 112: Negative or not required by law. The above report was generated using voice recognition software. It may contain grammatical, syntax o r spelling errors. Electronically signed by: Corey Rodgers M.D. 04/19/2023 6:03 PM
--- NOTE | 2023-04-19 19:22 | Billing Data ---
Date of Service April 19, 2023 Coding Level of Care Code 75575 CRITICAL CARE
[2023-04-19 20:30] LABS: Anion Gap 10 (3-11); BUN Creatinine Ratio 64.6 (10-20); Blood Urea Nitrogen 31 mg/dl (6-23); Calcium 8.8 mg/dl (8.6-10.3); Carbon Dioxide 24 mmol/L (21-32); Chloride 109 mmol/L (98-107); Creatinine Clr Calc Pharmacy 160.3 ml/min; Est GFR (African American) > 150.0 ml/min; Est GFR (Non-African American) 145.8 ml/min; Glucose 101 mg/dl (70-99(Fasting)); Potassium 3.5 mmol/L (3.5-5.1); Sodium 143 mmol/L (136-145)
[2023-04-19] MEDS ORDERED: Nursing to Pharmacy Communication SCH (21:15)
[2023-04-19] MEDS: PLASMA-LYTE A 1,000 ML IV SCH (22:57)
[2023-04-20] MEDS: VANCOMYCIN HCL 1,000 MG in SODIUM CHLORIDE 0.9% 250 ML IV SCH ×2 (00:36→11:45)
[2023-04-20] MEDS: CEFEPIME 2,000 MG in SYRINGE 0 ML IV SCH ×4 (00:36→23:31)
[2023-04-20] MEDS ORDERED: BROMOCRIPTINE MESYLATE 2.5 MG TAB PO SCH (02:30)
[2023-04-20] MEDS ORDERED: DANTROLENE SODIUM 25 MG CAP PEG SCH (02:30)
[2023-04-20] MEDS: BROMOCRIPTINE MESYLATE 2.5 MG TAB PO SCH ×4 (02:38→20:24)
[2023-04-20] MEDS: BACLOFEN 10 MG TAB PEG SCH ×4 (02:38→20:25)
[2023-04-20] MEDS: GABAPENTIN 250 MG/5 ML 470 ML BTL GT SCH ×4 (02:38→20:24)
[2023-04-20] MEDS: DANTROLENE SODIUM 25 MG CAP PEG SCH ×4 (02:38→20:24)
[2023-04-20] MEDS: ACETAMINOPHEN 1,000 MG/100 ML VIAL IV PRN ×2 (02:40→10:46)
[2023-04-20 05:00] LABS: Basophils # (auto) 0.06 K/uL (0.00-0.20); Basophils % (auto) 0.5 %; Eosinophils # (auto) 0.07 K/uL (0.00-0.50); Eosinophils % (auto) 0.6 %; Hematocrit (blood only) 31.5 % (42.0-52.0); Hemoglobin 10.3 g/dl (14.0-18.0); Immature Granulocytes # (auto) 0.04 K/uL (0.01-0.20); Immature Granulocytes % (auto) 0.4 %; Lymphocytes # (auto) 1.73 K/uL (1.20-3.40); Lymphocytes % (auto) 15.2 %; Mean Corpuscular Hgb Conc 32.7 g/dL (32.0-36.0); Mean Corpuscular Volume 94.9 fL (80.0-100.0); Mean Platelet Volume 10.5 fL (9.4-12.4); Monocytes # (auto) 0.77 K/uL (0.11-0.59); Monocytes % (auto) 6.8 %; Neutrophils # (auto) 8.73 K/uL (1.40-6.50); Neutrophils % (auto) 76.5 %; Platelet Count 459 K/uL (130-400); RDW Coefficient of Variation 14.6 % (11.5-14.5); RDW Standard Deviation 50.5 fL (36.4-46.3); Red Blood Count 3.32 M/uL (4.70-6.10)
[2023-04-20 05:20] LABS: Anion Gap 11 (3-11); BUN Creatinine Ratio 59.1 (10-20); Blood Urea Nitrogen 26 mg/dl (6-23); Calcium 9.7 mg/dl (8.6-10.3); Carbon Dioxide 24 mmol/L (21-32); Chloride 106 mmol/L (98-107); Creatinine Clr Calc Pharmacy 174.9 ml/min; Est GFR (African American) > 150.0 ml/min; Est GFR (Non-African American) > 150.0 ml/min; Glucose 80 mg/dl (70-99(Fasting)); Potassium 4.3 mmol/L (3.5-5.1); Sodium 141 mmol/L (136-145)
[2023-04-20] MEDS: PLASMA-LYTE A 1,000 ML IV SCH ×3 (06:50→23:30)
[2023-04-20] MEDS: MULTI VIT W/MINERALS LIQUID 15 ML UDP PEG SCH (09:47)
[2023-04-20] MEDS: APIXABAN 5 MG TABLET PO SCH ×2 (09:48→20:25)
[2023-04-20] MEDS: METOPROLOL TARTRATE 25 MG TAB PEG SCH ×2 (09:49→20:25)
--- NOTE | 2023-04-20 09:54 | Pharmacy Report ---
Pharmacy PK ABX Note - Date of Service April 20, 2023 - Assessment and Plan Assessment 32 year old M w hx chronic trach/PEG due to ruptured brain aneurysm, chronically bed-bound and nonverbal. Currently receiving cefepime and vancomycin for treatment of sepsis of unclear source (?pulm, ?urine). SCr very low at 0.44 mg/dL - suspect due to reduced muscle mass and not necessarily reflective of renal function. Bayesian software / [employer] / AUC-based monitoring may not be reliable given reduced correlation of SCr w renal function 2nd reduced muscle mass. May consider traditional trough-based monitoring instead. Plan Vancomycin * Loading dose: 1250 mg IV x 1 * Maintenance dose: 1000 mg IV every 12 hours * Trough level ordered for: 04/20 @ 2330 Pharmacy will continue to follow and will adjust dose/frequency as necessary. Thank you. Pharmacy has transitioned to AUC monitoring for vancomycin. AUC/BASHIR is the preferred PK/PD target and is associated with decreased risk of nephrotoxicity compared to traditional trough targets.
[2023-04-20 10:26] LABS: A calco-baum cmplx NotReported Not Detected (NotDetected); Bact fragilis Not Reported Not Detected (NotDetected); Blood Culture Id Panel See PCR Comment (NotDetected); C auris Not Reported Not Detected (NotDetected); Calbicans Not Reported Not Detected (NotDetected); Candida glabrata Not Reported Not Detected (NotDetected); Candida krusei Not Reported Not Detected (NotDetected); Cneoformans/gatti Not Reported Not Detected (NotDetected); Cparapsilosis Not Reported Not Detected (NotDetected); E cloacae compx Not Reported Not Detected (NotDetected); Efaecalis Not Reported Not Detected (NotDetected); Efaecium Not Reported Not Detected (NotDetected); Enterobacterales Not Reported Not Detected (NotDetected); Escherichia coli Not Reported Not Detected (NotDetected); H influenzae Not Reported Not Detected (NotDetected); K aerogenes Not Reported Not Detected (NotDetected); Koxytoca Not Reported Not Detected (NotDetected); Kpneumoniae grp Not Reported Not Detected (NotDetected); Lmonocyt Not Reported Not Detected (NotDetected); N meningitidis Not Reported Not Detected (NotDetected); P aeruginosa Not Reported Not Detected (NotDetected); Proteus spp Not Reported Not Detected (NotDetected); Salmonella spp Not Reported Not Detected (NotDetected); Smarcescens Not Reported Not Detected (NotDetected); Staph lugdunensis Not Reported Not Detected (NotDetected); Staph spp. Not Reported DETECTED (NotDetected); Staphaureus Not Reported Not Detected (NotDetected); Staphepi Not Reported Not Detected (NotDetected); Stenmaltophilia Not Reported Not Detected (NotDetected); Strep agal(GrpB) Not Reported Not Detected (NotDetected); Strep pneum Not Reported Not Detected (NotDetected); Strep pyog (GrpA) Not Reported Not Detected (NotDetected); Strep spp Not Reported Not Detected (NotDetected)
[2023-04-20 10:31] LABS: Staphylococcus spp. DETECTED (NotDetected)
[2023-04-20] MEDS: TUBE FEEDING WATER FLUSH PEG SCH ×4 (10:43→20:26)
[2023-04-20] MEDS: PEPTAMEN 1.5 CAL 1,000 ML BAG PEG SCH (10:44)
--- NOTE | 2023-04-20 10:50 | Hospitalist Progress Note ---
Date of Service April 20, 2023 Assessment & Plan (1) Sepsis: Plan: -Likely secondary to gram positive cocci, source could be his chronic sacral wounds -Blood cultures growing gram poitive cocci in clusters, full characterization pending While awaiting transport back to [facility] patient developed acute tachycardia, fever at 39.6, diaphoresis, and sweating. Patient has leukocytosis, procalcitonin is elevated, and is febrile suggestive of sepsis. Lactate elevated 4.8, downtrending following 30cc/kg fluids. Urine output remains poor, additional bolus given Patient w/ hx of febrile and tachycardic decompensation when his medications were missed in the past, did not receive bromocriptine/dantrolene/gabapentin while PEG tube was clogged. These were given at approximately 1130am in ER 04/19 and scheduled. Suspect severe autonomic dysfunction with paroxysmal sympathetic storm which patient has had previous hospitalizations and when medications have been missed. Discussed with neurosurgery as noted below - Chronic sacral wound is present, posterior calves with pressure wounds which are not infected appearing. Will continue sepsis tx and follow bc/uc. UA from [facility] infected appearing. Past cx + for Kleb and Pseudomonas. -Continue on cefepime/vancomycin -Consult ID (2) History of nontraumatic rupture of cerebral aneurysm: Plan: Ruptured intracranial aneurysm beginning of 2022, with craniotomy and hematoma evacuation at [facility], subsequently with skull plate replantation November 2022 Nonverbal, does not follow commands since. PEG tube in place since August 2022 which has clogged frequently, although generally able to be well maintained during hospitalizations Guardian/surrogate decision makers patient's mother Sharlene who reaffirms full code, and he would want and she wants any and all available medical interventions to sustain and extend his life Continue bromocryptine 2.5 mg every 6 hours, dantrolene 100 mg every 6 hours, gabapentin 400 mg every 6 hours, baclofen 20mg q6h (3) Autonomic dysfunction: Plan: History of severe tachycardia, fever, sweating, and rigidity with paroxysmal sympathetic hyperactivity and dysregulation in the past Amitriptyline/dantrolene/gabapentin/baclofen/morphine as noted Did discuss with neurosurgery at [facility]. Do not have any other specific recommendations at this time, recommended checking a DIRECTOR TECHNICAL shunt and head imaging to ensure stability. If this is related to autonomic dysfunction then expect this to get better gradually as medications have been resumed, and do not recommend any additional adjuncts or loading doses. If patient worsens then would benefit from neuro ICU however they are not the closest appropriate facility, did discuss this with patient's mother as well who is not sure whether she would want transfer to [place] or [place] and in the emergency, reports she would like some time to think about this. On reassessment he is clinically improving, heart rate is down trended to 100. (4) History of DVT (deep vein thrombosis): Plan: Apixaban 5 mg p.o. twice daily (5) Decubitus ulcer of calf, unstageable: (6) Moderate protein-calorie malnutrition: Plan: - Nutrition consult (7) S/P DIRECTOR TECHNICAL shunt: Plan: - Noted, tip in place on CT. Imaging series ordered as noted after discussion with neurosurgery Plan DVT ppx: anticoagulated Diet: PEG Dispo: Code: Full Code Admission and Anticipated Discharge Date Admission Date: April 19, 2023 Subjective patient seen and examined, he is non verbal Review of Systems Review of Systems: unobtainable Physical Exam Physical Exam: The patient is awake, non verbal, chronically ill looking HEENT--PERRL, EOMI, mucous membranes and oropharynx mildly dry Neck--supple. No JVD. No bruits. Thyroid normal, trachea midline, no adenopathy. Heart--normal S1 and S2. No murmurs, rubs or gallops. Lungs--clear bilaterally, no respiratory distress, no accessory muscle use. Abdomen--normal bowel sounds and soft. peg tube Extremities--no cyanosis or clubbing. No edema. weak, poor muscle tone Dermatologic--normal skin turgor, normal color, no abnormal lymph nodes, no rash. Neurologic--unable to fully assess Rheumatologic--normal range of motion. Psychiatric--unable to assess Results & Data Results & Data Vital Signs (Past 12 Hours) Vital Signs Temp Pulse Pulse Resp BP BP Pulse Ox 04/20/23 08:00 103 H 04/20/23 10:00 115 H 19 97 04/20/23 10:00 124/69 04/20/23 09:00 101 H 20 96 04/20/23 09:00 131/74 04/20/23 08:00 103 H 18 97 04/20/23 08:00 113/58 L 04/20/23 07:00 115 H 20 99 04/20/23 07:00 140/90 04/20/23 03:05 98.8 F 95 H 16 126/86 98 04/20/23 02:23 108 H 15 97 04/20/23 00:00 87 O2 Del Method O2 Flow Rate FiO2 04/20/23 08:00 04/20/23 10:00 04/20/23 10:00 04/20/23 09:00 Trach Collar 40 04/20/23 09:00 04/20/23 08:00 04/20/23 08:00 04/20/23 07:00 04/20/23 07:00 04/20/23 03:05 Trach Collar 30 04/20/23 02:23 Trach Collar 8 30 04/20/23 00:00 PG Care Time/CCT Total # of Minutes Spent Total Time Spent with Patient: Total time spent is greater than 50% in coordination of care (as documented) at patient's floor/unit and/or counseling patient: Coding Level of Care Code 72978 SUB INP/OBS CARE 2/35MIN Diagnoses Sepsis A41.9 History of nontraumatic rupture of cerebral aneurysm Z86.79 Autonomic dysfunction G90.9 History of DVT (deep vein thrombosis) Z86.718 Decubitus ulcer of calf, unstageable L89.890 Moderate protein-calorie malnutrition E44.0 S/P DIRECTOR TECHNICAL shunt Z98.2 Time Spent (min) 35
[2023-04-20] MEDS: ESCITALOPRAM OXALATE ORAL SOLN 5 MG/5 ML UDP PEG SCH (11:50)
[2023-04-20] MEDS ORDERED: VANCOMYCIN LEVEL ONE (23:30)
[2023-04-21] MEDS: VANCOMYCIN HCL 1,000 MG in SODIUM CHLORIDE 0.9% 250 ML IV SCH ×3 (01:03→17:10)
[2023-04-21] MEDS: TUBE FEEDING WATER FLUSH PEG SCH ×6 (02:32→21:27)
[2023-04-21] MEDS: BACLOFEN 10 MG TAB PEG SCH ×4 (02:40→20:17)
[2023-04-21] MEDS: BROMOCRIPTINE MESYLATE 2.5 MG TAB PO SCH ×4 (02:40→20:17)
[2023-04-21] MEDS: DANTROLENE SODIUM 25 MG CAP PEG SCH ×4 (02:40→20:17)
[2023-04-21] MEDS: GABAPENTIN 250 MG/5 ML 470 ML BTL GT SCH ×4 (02:41→20:16)
[2023-04-21 04:58] LABS: Basophils # (auto) 0.04 K/uL (0.00-0.20); Basophils % (auto) 0.6 %; Eosinophils % (auto) 2.8 %; Hematocrit (blood only) 27.3 % (42.0-52.0); Hemoglobin 8.7 g/dl (14.0-18.0); Immature Granulocytes # (auto) 0.02 K/uL (0.01-0.20); Immature Granulocytes % (auto) 0.3 %; Lymphocytes # (auto) 1.59 K/uL (1.20-3.40); Lymphocytes % (auto) 21.9 %; Mean Corpuscular Hgb Conc 31.9 g/dL (32.0-36.0); Mean Corpuscular Volume 97.2 fL (80.0-100.0); Mean Platelet Volume 10.3 fL (9.4-12.4); Monocytes # (auto) 0.58 K/uL (0.11-0.59); Neutrophils # (auto) 4.83 K/uL (1.40-6.50); Neutrophils % (auto) 66.4 %; Platelet Count 321 K/uL (130-400); RDW Coefficient of Variation 14.2 % (11.5-14.5); RDW Standard Deviation 50.6 fL (36.4-46.3); Red Blood Count 2.81 M/uL (4.70-6.10); White Blood Count 7.26 K/ul (4.8-10.8)
[2023-04-21 05:15] LABS: Anion Gap 4 (3-11); BUN Creatinine Ratio 35.5 (10-20); Blood Urea Nitrogen 11 mg/dl (6-23); Calcium 8.4 mg/dl (8.6-10.3); Carbon Dioxide 29 mmol/L (21-32); Chloride 107 mmol/L (98-107); Creatinine Clr Calc Pharmacy 258.4 ml/min; Est GFR (African American) > 150.0 ml/min; Est GFR (Non-African American) > 150.0 ml/min; Glucose 119 mg/dl (70-99(Fasting)); Potassium 3.6 mmol/L (3.5-5.1); Sodium 140 mmol/L (136-145)
[2023-04-21] MEDS: PLASMA-LYTE A 1,000 ML IV SCH ×2 (08:34→15:48)
[2023-04-21] MEDS: CEFEPIME 2,000 MG in SYRINGE 0 ML IV SCH ×2 (08:35→15:46)
[2023-04-21] MEDS: FERROUS SULFATE ELIX 220MG/5ML GT SCH (08:36)
[2023-04-21] MEDS: ESCITALOPRAM OXALATE ORAL SOLN 5 MG/5 ML UDP PEG SCH (08:36)
[2023-04-21] MEDS: MULTI VIT W/MINERALS LIQUID 15 ML UDP PEG SCH (08:37)
[2023-04-21] MEDS: APIXABAN 5 MG TABLET PO SCH ×2 (08:37→20:17)
[2023-04-21] MEDS: METOPROLOL TARTRATE 25 MG TAB PEG SCH ×2 (08:37→20:18)
[2023-04-21] MEDS: PEPTAMEN 1.5 CAL 1,000 ML BAG PEG SCH (10:10)
--- NOTE | 2023-04-21 10:55 | Hospitalist Progress Note ---
Date of Service April 21, 2023 Assessment & Plan (1) Sepsis: Plan: -Likely secondary to gram positive cocci, source could be his chronic sacral wounds. lactate initially elevated, also procalcitonin -Blood cultures growing gram poitive cocci in clusters, full characterization pending -Trach gram stain positive for gram negative bacteria, although could be normal juice While awaiting transport back to [facility] patient developed acute tachycardia, fever at 39.6, diaphoresis, and sweating. - Chronic sacral wound is present, posterior calves with pressure wounds which are not infected appearing. Will continue sepsis tx and follow bc/uc. UA from [facility] infected appearing. Past cx + for Kleb and Pseudomonas. -Continue on cefepime/vancomycin -Consult ID (2) History of nontraumatic rupture of cerebral aneurysm: Plan: Ruptured intracranial aneurysm beginning of 2022, with craniotomy and hematoma evacuation at [facility], subsequently with skull plate replantation November 2022 Nonverbal, does not follow commands since. PEG tube in place since August 2022 which has clogged frequently, although generally able to be well maintained during hospitalizations Guardian/surrogate decision makers patient's mother Sharlene who reaffirms full code, and he would want and she wants any and all available medical interventions to sustain and extend his life Continue bromocryptine 2.5 mg every 6 hours, dantrolene 100 mg every 6 hours, gabapentin 400 mg every 6 hours, baclofen 20mg q6h (3) Autonomic dysfunction: Plan: History of severe tachycardia, fever, sweating, and rigidity with paroxysmal sympathetic hyperactivity and dysregulation in the past -Patient w/ hx of febrile and tachycardic decompensation when his medications were missed in the past, did not receive bromocriptine/dantrolene/gabapentin while PEG tube was clogged. These were given at approximately 1130am in ER 04/19 and scheduled. Suspect severe autonomic dysfunction with paroxysmal sympathetic storm which patient has had previous hospitalizations and when medications have been missed. Discussed with neurosurgery as noted below Amitriptyline/dantrolene/gabapentin/baclofen/morphine as noted Did discuss with neurosurgery at [facility]. Do not have any other specific recommendations at this time, recommended checking a VALET ATTENDANT shunt and head imaging to ensure stability. If this is related to autonomic dysfunction then expect this to get better gradually as medications have been resumed, and do not recommend any additional adjuncts or loading doses. If patient worsens then would benefit from neuro ICU however they are not the closest appropriate facility, did discuss this with patient's mother as well who is not sure whether she would want transfer to [place] or [place] and in the emergency, reports she would like some time to think about this. On reassessment he is clinically improving, heart rate is down trended to 100. (4) History of DVT (deep vein thrombosis): Plan: Apixaban 5 mg p.o. twice daily (5) Decubitus ulcer of calf, unstageable: (6) Moderate protein-calorie malnutrition: Plan: - Nutrition consult (7) S/P VALET ATTENDANT shunt: Plan: - Noted, tip in place on CT. Imaging series ordered as noted after discussion with neurosurgery (8) Respiratory failure: Plan: Trach to vent Vent mgt per anthropology faculty member Plan DVT ppx: anticoagulated Diet: PEG Dispo: Code: Full Code Admission and Anticipated Discharge Date Admission Date: April 19, 2023 Subjective patient seen and examined, he is non verbal Review of Systems Review of Systems: unobtainable Physical Exam Physical Exam: The patient is awake, non verbal, chronically ill looking HEENT--PERRL, EOMI, mucous membranes and oropharynx mildly dry Neck--supple. No JVD. No bruits. Thyroid normal, trachea midline, no adenopathy. Heart--normal S1 and S2. No murmurs, rubs or gallops. Lungs--clear bilaterally, no respiratory distress, no accessory muscle use. trach to vent Abdomen--normal bowel sounds and soft. peg tube Extremities--no cyanosis or clubbing. No edema. weak, poor muscle tone Dermatologic--normal skin turgor, normal color, no abnormal lymph nodes, no rash. Neurologic--unable to fully assess Rheumatologic--normal range of motion. Psychiatric--unable to assess Results & Data Results & Data Vital Signs (Past 12 Hours) Vital Signs Temp Pulse Pulse Resp BP BP Pulse Ox 04/21/23 09:00 71 14 100 04/21/23 09:00 109/74 04/21/23 08:00 68 13 100 04/21/23 08:00 103/64 04/21/23 07:00 71 15 100 04/21/23 07:00 108/71 04/21/23 08:10 04/21/23 09:23 98.8 F 04/21/23 02:48 98.8 F 62 12 92/55 L 12 L 04/21/23 00:00 89 04/20/23 23:39 97.3 F L 76 16 103/66 99 O2 Del Method FiO2 04/21/23 09:00 04/21/23 09:00 04/21/23 08:00 Trach Collar 0.3 04/21/23 08:00 04/21/23 07:00 04/21/23 07:00 04/21/23 08:10 Trach Collar 30 04/21/23 09:23 04/21/23 02:48 Trach Collar 30 04/21/23 00:00 04/20/23 23:39 Trach Collar 30 PG Care Time/CCT Total # of Minutes Spent Total Time Spent with Patient: Total time spent is greater than 50% in coordination of care (as documented) at patient's floor/unit and/or counseling patient: Coding Level of Care Code 15300 SUB INP/OBS CARE 2/35MIN Diagnoses Sepsis A41.9 History of nontraumatic rupture of cerebral aneurysm Z86.79 Autonomic dysfunction G90.9 History of DVT (deep vein thrombosis) Z86.718 Decubitus ulcer of calf, unstageable L89.890 Moderate protein-calorie malnutrition E44.0 S/P VALET ATTENDANT shunt Z98.2 Respiratory failure J96.90 Time Spent (min) 35
--- NOTE | 2023-04-21 11:04 | Pharmacy Report ---
Pharmacy PK ABX Note - Date of Service April 21, 2023 - Assessment and Plan Assessment 32 year old M w hx chronic trach/PEG due to ruptured brain aneurysm, chronically bed-bound and nonverbal. * Day #3 of Vancomycin and Cefepime. ID consulted - awaiting their input. * Sepsis of unknown source. 1/2 blood cultures growing CoNS (no sensitivities to follow but often oxacillin-resistant) in both bottles. May represent contamination. Trach/sputum cx growing gram negative bacilli. * SCr very low at 0.31 mg/dL - suspect due to reduced muscle mass and not necessarily reflective of renal function. Bayesian software / [employer] / AUC- based monitoring may not be reliable given reduced correlation of SCr w renal function 2nd reduced muscle mass. May consider traditional trough-based monitoring instead. Plan Vancomycin * Current regimen: 1000 mg IV every 12 hours * Trough level obtained 04/21/23 resulted as 7.1 mcg/mL. This is subtherapeutic. * Change to 1000 mg IV every 8 hours. Predicted AUC at steady state: 510 mg/L.hr * Repeat trough level ordered for: 04/22/23 Cefepime * 2000 mg IV every 8 hours Pharmacy will continue to follow and will adjust dose/frequency as necessary. Thank you. Pharmacy has transitioned to AUC monitoring for vancomycin. AUC/BASHIR is the preferred PK/PD target and is associated with decreased risk of nephrotoxicity compared to traditional trough targets.
--- NOTE | 2023-04-21 14:18 | Infectious Disease Consult ---
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 He was diagnosed with CONS bacteremia in bottles ( diff strains) on 04/02 and CONS on 04/08. Since the strains were different in the 04/02 set , the bacteremia was thought to be a contaminant and there was less concern for shunt infection . 2decho w/o valve vegetations or abnormalities but were poor studies. Sputum from his trach grew hollis sensitive PsA and Kleb pna. C X-ray was negative for infiltrate. He was treated with a 10-day course f Cefepim for Pseudomonas aeruginosa tracheitis. He received about 10 days of IV Vancomycin. He returned to the ED on 04/19 for concerns for blocked feeding tube. This was cleared, but he developed fever w/ Tmax 39.6 , diaphoresis and tachycardia. He was empirically started on Zosyn. Labs notable for a WBC of 15.76, platelets 658, BUN 31, creatinine 0.48 . procalcitonin 0.89, LA 2.9. UA with 10-30. Admission blood cultures grew CONS in 2/4 bottles . Trach Sputum cultures grew gram-negative bacilli pending identification. Urine culture no significant growth. Skull, chest, abd x-ray showed subtle ill-defined right lung opacity , shunt catheter was intact. Head CT showed right-sided craniotomy changes with right MCA territory encephalomalacia. Ventricular dilatation was unchanged from prior with a left anterior frontal ventriculostomy catheter in place CT of the abdomen pelvis showed the shunt catheter in the left hemipelvis with ascites, ID consulted for bacteremia #Recurrent CONS bacteremia # CONS ( MRSE via PCR) bacteremia 04/02 #CoNS (MRSE per cx) bacteremia 04/08 #CASH APPLICATION CLERK shunt #Tracheostomy Micro prior admission BC 04/02 2/4 CONS, 1/4 COns #2 BC 04/03 sterile sputum cx 04/03 PSA , Kleb Pna BC 04/08 14 CONS R to oxacillin BC 04/10 sterile this admission BC 04/19 2/4 CONS UC 04/19 sterile sputum cx 04/20 GNR ABX Prior admission Cefepime 04/05-04/14 Vancomycin 04/02-04/11 This admission zosy 04/19 cefepime 04/19-ongoing vancomycin 04/19-ongoing Recurrent CONS bacteremia in setting oF CASH APPLICATION CLERK shunt is concerning for ? seeding of hardware or infection at another protected site. No linda signs of infection of CASH APPLICATION CLERK shunt on imaging or on exam. GNR from trach less concerning for Pna, as he recently completed course of cefepime and has no resp symptoms. May be colonization. Decubitus ulcer picture reviewed. Chronic appearing without evidence of infection . Recommendations . Continue Vancomycin per pharmacy protocol and Cefepime for now Check TTE Repeat BC FU CONS sensi FU GNR sensi NS Eval for CASH APPLICATION CLERK shunt given recurrent CONS bacteremia Thank you for this consultation. ID will continue to follow. Ronnie Agustin MD, MPH Infectious Disease [facility], [facility] Call [phone] with questions Consultation Information Consultation was provided via telemedicine using two-way real-time interactive telecommunication between the patient and the telemedicine provider. For the duration of the visit, the provider was performing the assessment from a different facility than the patient. This includesuse of bluetooth stethoscope forauscultationperformed by the telepresenter that the telemedicine provider can hear if described in the physical exam. Wheat Shipper contact information: Please call [facility] Center . 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 He was diagnosed with CONS bacteremia in bottles ( diff strains) on 04/02 and CONS on 04/08. Since the strains were different in the 04/02 set , the bacteremia was thought to be a contaminant and there was less concern for shunt infection . 2decho w/o valve vegetations or abnormalities but were poor studies. Sputum from his trach grew hollis sensitive PsA and Kleb pna. C X-ray was negative for infiltrate. He was treated with a 10-day course f Cefepim for Pseudomonas aeruginosa tracheitis. He received about 10 days of IV Vancomycin. He returned to the ED on 04/19 for concerns for blocked feeding tube. This was cleared, but he developed fever w/ Tmax 39.6 , diaphoresis and tachycardia. He was empirically started on Zosyn. Labs notable for a WBC of 15.76, platelets 658, BUN 31, creatinine 0.48 . procalcitonin 0.89, LA 2.9. UA with 10-30. Admission blood cultures grew CONS in 2/4 bottles . Trach Sputum cultures grew gram-negative bacilli pending identification. Urine culture no significant growth. Skull, chest, abd x-ray showed subtle ill-defined right lung opacity , shunt catheter was intact. Head CT showed right-sided craniotomy changes with right MCA territory encephalomalacia. Ventricular dilatation was unchanged from prior with a left anterior frontal ventriculostomy catheter in place CT of the abdomen pelvis showed the shunt catheter in the left hemipelvis with ascites, ID consulted for bacteremia Allergies Allergy/AdvReac Type Severity Reaction Status Date / Time No Known Allergies Allergy Unverified 04/04/23 09:03 Home Medications Medication Instructions Recorded Confirmed Type apixaban 5 mg tablet (Eliquis) 5 mg feeding tube BID 04/02/23 04/03/23 History scopolamine base 1 mg over 3 days 1 patch transdermal Q3D 04/02/23 04/03/23 History transdermal patch acetaminophen 325 mg/10.15 mL oral 650 mg (20.3 mL) PEG Q6 #250 mL 04/17/23 Rx suspension baclofen 10 mg tablet 20 mg feeding tube Q6H #1 tab 04/17/23 04/03/23 Rx bromocriptine 2.5 mg tablet 2.5 mg feeding tube Q6 #120 tabs 04/17/23 Rx dantrolene 25 mg capsule 100 mg PEG Q6 #120 caps 04/17/23 Rx escitalopram oxalate 5 mg/5 mL 5 mg (5 mL) PEG QAM #150 mL 04/17/23 Rx oral solution ferrous sulfate 220 mg (44 mg 325 mg (7.3864 mL) G-tube Q48H 60 04/17/23 Rx iron)/5 mL oral elixir days #221.592 mL gabapentin 250 mg/5 mL oral 400 mg (8 mL) PEG Q6 #250 mL 04/17/23 Rx solution lactose-reduced food with fiber See Rx Instructions .Route 04/17/23 Rx 0.06 gram-1.5 kcal/mL oral liquid .COMPLEX #5,688 mL (Jevity 1.5 Lance) metoprolol tartrate 25 mg tablet 25 mg PEG BID #60 tabs 04/17/23 Rx multivit and minerals-ferrous 15 ml PEG QAM 30 days #450 mL 04/17/23 Rx gluconate 9 mg iron/15 mL oral liquid (Centrum) Patient History Medical History (Updated 04/21/23 @ 10:54 by Brooklyn Villanueva MD) History of nontraumatic rupture of cerebral aneurysm History of traumatic brain injury Social History Smoking Status: Never smoker Second Hand Exposure: No; Do You Dip or Chew Tobacco: No; Tobacco Cessation Education Requested by Patient: No Hx Alcohol Use: No Hx Substance Use: No Preferred Language: Telugu Communication Ability: Effective Progressive Care Manager Required: No Beliefs That Will Affect Care: None Current Living Situation: Care Home Other Information That Helps Us Care for You: No Feels Safe at Home: Yes Safety Concerns: Feels Safe At This Time Assistive Devices: None Review of System unable to obtain as pt is non verabal Physical Exam Physical Exam: Awake, alert, non verbal trach in place- clean without secretions + g tube, soft, not tender No increased workof breathing LE contractures Silva in place Results & Data Vital Signs (Past 12 Hours) Vital Signs Temp Pulse Pulse Resp BP BP Pulse Ox 04/21/23 11:00 63 14 100 04/21/23 11:00 93/54 L 04/21/23 10:00 60 15 100 04/21/23 10:00 97/59 L 04/21/23 09:00 71 14 100 04/21/23 09:00 109/74 04/21/23 08:00 68 13 100 04/21/23 08:00 103/64 04/21/23 07:00 71 15 100 04/21/23 07:00 108/71 04/21/23 08:10 04/21/23 09:23 37.1 C 04/21/23 02:48 37.1 C 62 12 92/55 L 12 L O2 Del Method FiO2 04/21/23 11:00 Trach Collar 0.3 04/21/23 11:00 04/21/23 10:00 04/21/23 10:00 04/21/23 09:00 04/21/23 09:00 04/21/23 08:00 Trach Collar 0.3 04/21/23 08:00 04/21/23 07:00 04/21/23 07:00 04/21/23 08:10 Trach Collar 30 04/21/23 09:23 04/21/23 02:48 Trach Collar 30 Laboratory Results . Laboratory Results - last 48 hr 04/19/23 04/19/23 04/19/23 12:30 14:13 14:13 WBC RBC Hgb Hct MCV MCH MCHC RDW Std Deviation RDW Coeff of Dario Plt Count MPV Immature Gran % (Auto) Neut % (Auto) Lymph % (Auto) Dunn % (Auto) Eos % (Auto) Baso % (Auto) Neut # (Auto) Lymph # (Auto) Dunn # (Auto) Eos # (Auto) Baso # (Auto) Immature Gran # (Auto) VBG pH VBG pCO2 VBG pO2 VBG HCO3 VBG O2 Saturation VBG Base Excess Sodium Potassium 5.4 H D Chloride Carbon Dioxide Anion Gap BUN Creatinine Est Cr Clr Drug Dosing Est GFR ( Amer) Est GFR (Non-Af Amer) BUN/Creatinine Ratio Glucose POC Glucose Lactate Calcium Direct Bilirubin 0.0 Procalcitonin 0.89 H Nasal Screen MRSA (PCR) Random Vancomycin Staphylococcus sp PCR DETECTED A Bld Cult ID Panel PCR See PCR Comment 04/19/23 04/19/23 04/19/23 14:13 14:14 16:23 WBC RBC Hgb Hct MCV MCH MCHC RDW Std Deviation RDW Coeff of Dario Plt Count MPV Immature Gran % (Auto) Neut % (Auto) Lymph % (Auto) Dunn % (Auto) Eos % (Auto) Baso % (Auto) Neut # (Auto) Lymph # (Auto) Dunn # (Auto) Eos # (Auto) Baso # (Auto) Immature Gran # (Auto) VBG pH 7.46 H VBG pCO2 41 VBG pO2 43 VBG HCO3 29 VBG O2 Saturation 69.7 VBG Base Excess 4.9 Sodium Potassium Chloride Carbon Dioxide Anion Gap BUN Creatinine Est Cr Clr Drug Dosing Est GFR ( Amer) Est GFR (Non-Af Amer) BUN/Creatinine Ratio Glucose POC Glucose Lactate 2.9 H* 1.1 Calcium Direct Bilirubin Procalcitonin Nasal Screen MRSA (PCR) Random Vancomycin Staphylococcus sp PCR Bld Cult ID Panel PCR 04/19/23 04/19/23 04/20/23 18:00 19:53 04:30 WBC 11.40 H RBC 3.32 L Hgb 10.3 L Hct 31.5 L MCV 94.9 MCH 31.0 MCHC 32.7 RDW Std Deviation 50.5 H RDW Coeff of Dario 14.6 H Plt Count 459 H MPV 10.5 Immature Gran % (Auto) 0.4 Neut % (Auto) 76.5 Lymph % (Auto) 15.2 Dunn % (Auto) 6.8 Eos % (Auto) 0.6 Baso % (Auto) 0.5 Neut # (Auto) 8.73 H Lymph # (Auto) 1.73 Dunn # (Auto) 0.77 H Eos # (Auto) 0.07 Baso # (Auto) 0.06 Immature Gran # (Auto) 0.04 VBG pH VBG pCO2 VBG pO2 VBG HCO3 VBG O2 Saturation VBG Base Excess Sodium 143 Potassium 3.5 D Chloride 109 H Carbon Dioxide 24 Anion Gap 10 BUN 31 H Creatinine 0.48 L D Est Cr Clr Drug Dosing 160.3 Est GFR ( Amer) > 150.0 Est GFR (Non-Af Amer) 145.8 BUN/Creatinine Ratio 64.6 H Glucose 101 H POC Glucose Lactate Calcium 8.8 Direct Bilirubin Procalcitonin Nasal Screen MRSA (PCR) Negative Random Vancomycin Staphylococcus sp PCR Bld Cult ID Panel PCR 04/20/23 04/20/23 04/20/23 04:30 11:46 15:59 WBC RBC Hgb Hct MCV MCH MCHC RDW Std Deviation RDW Coeff of Dario Plt Count MPV Immature Gran % (Auto) Neut % (Auto) Lymph % (Auto) Dunn % (Auto) Eos % (Auto) Baso % (Auto) Neut # (Auto) Lymph # (Auto) Dunn # (Auto) Eos # (Auto) Baso # (Auto) Immature Gran # (Auto) VBG pH VBG pCO2 VBG pO2 VBG HCO3 VBG O2 Saturation VBG Base Excess Sodium 141 Potassium 4.3 D Chloride 106 Carbon Dioxide 24 Anion Gap 11 BUN 26 H Creatinine 0.44 L Est Cr Clr Drug Dosing 174.9 Est GFR ( Amer) > 150.0 Est GFR (Non-Af Amer) > 150.0 BUN/Creatinine Ratio 59.1 H Glucose 80 POC Glucose 88 114 H Lactate Calcium 9.7 Direct Bilirubin Procalcitonin Nasal Screen MRSA (PCR) Random Vancomycin Staphylococcus sp PCR Bld Cult ID Panel PCR 04/20/23 04/21/23 04/21/23 23:40 04:33 04:33 WBC 7.26 RBC 2.81 L Hgb 8.7 L Hct 27.3 L MCV 97.2 MCH 31.0 MCHC 31.9 L RDW Std Deviation 50.6 H RDW Coeff of Dario 14.2 Plt Count 321 MPV 10.3 Immature Gran % (Auto) 0.3 Neut % (Auto) 66.4 Lymph % (Auto) 21.9 Dunn % (Auto) 8.0 Eos % (Auto) 2.8 Baso % (Auto) 0.6 Neut # (Auto) 4.83 Lymph # (Auto) 1.59 Dunn # (Auto) 0.58 Eos # (Auto) 0.20 Baso # (Auto) 0.04 Immature Gran # (Auto) 0.02 VBG pH VBG pCO2 VBG pO2 VBG HCO3 VBG O2 Saturation VBG Base Excess Sodium 140 Potassium 3.6 Chloride 107 Carbon Dioxide 29 Anion Gap 4 BUN 11 Creatinine 0.31 L Est Cr Clr Drug Dosing 258.4 Est GFR ( Amer) > 150.0 Est GFR (Non-Af Amer) > 150.0 BUN/Creatinine Ratio 35.5 H Glucose 119 H POC Glucose Lactate Calcium 8.4 L Direct Bilirubin Procalcitonin Nasal Screen MRSA (PCR) Random Vancomycin 7.1 L Staphylococcus sp PCR Bld Cult ID Panel PCR 04/21/23 11:46 WBC RBC Hgb Hct MCV MCH MCHC RDW Std Deviation RDW Coeff of Dario Plt Count MPV Immature Gran % (Auto) Neut % (Auto) Lymph % (Auto) Dunn % (Auto) Eos % (Auto) Baso % (Auto) Neut # (Auto) Lymph # (Auto) Dunn # (Auto) Eos # (Auto) Baso # (Auto) Immature Gran # (Auto) VBG pH VBG pCO2 VBG pO2 VBG HCO3 VBG O2 Saturation VBG Base Excess Sodium Potassium Chloride Carbon Dioxide Anion Gap BUN Creatinine Est Cr Clr Drug Dosing Est GFR ( Amer) Est GFR (Non-Af Amer) BUN/Creatinine Ratio Glucose POC Glucose 103 H Lactate Calcium Direct Bilirubin Procalcitonin Nasal Screen MRSA (PCR) Random Vancomycin Staphylococcus sp PCR Bld Cult ID Panel PCR Diagnostic Findings Microbiology 04/19/23 12:15 Blood Aerobic Blood Culture - Preliminary No growth in Aerobic bottle after 48 hours. 04/19/23 12:15 Blood Anaerobic Blood Culture - Preliminary No growth in Anaerobic bottle after 48 hours. 04/19/23 12:30 Blood Aerobic Blood Culture - Final Coag neg staph not lugdunensis 04/19/23 12:30 Blood Anaerobic Blood Culture - Final Coag neg staph not lugdunensis 04/19/23 12:30 Urine,Straight Cath Urine Culture - Final No growth - less than 1,000 colonies/mL. 04/20/23 Unknown Sputum,Trach Gram Stain - Final 04/20/23 Unknown Sputum,Trach Sputum Culture - Preliminary Gram negative bacilli Chest X-Ray 04/19/23 11:22 XR chest 1V portable HISTORY: 32 years-old Male Sepsis acute sepsis COMPARISON: 04/03/2023 TECHNIQUE: AP view of the chest FINDINGS: Stable positioning of the tracheostomy cannula. Cardiomediastinal and hilar silhouettes are unchanged. A catheter projects over the left chest. No pneumothorax, pleural effusion, airspace consolidation or pulmonary edema. Degenerative changes of the shoulders and spine. IMPRESSION: No acute process of the chest. ACT 112: Negative or not required by law. The above report was generated using voice recognition software. It may contain grammatical, syntax or spelling errors. Electronically signed by: Corey Rodgers M.D. 04/19/2023 11:56 AM Abdomen/Pelvis CT 04/19/23 11:[address] WITHOUT CONTRAST CT DOSE: 871.62 mGy.cm HISTORY: Acute sepsis sepsis TECHNIQUE: Multiaxial CT images of the abdomen and pelvis were performed without contrast. A dose lowering technique was utilized adhering to the principles of ALARA. COMPARISON STUDY: 04/07/2023 FINDINGS: Motion degraded exam. Study is limited without the use of IV contrast and also secondary to residual enteric contrast within the colon. Mild right basilar atelectasis. No free air identified. Unenhanced spleen, visualized pancreas, adrenal glands and liver appear unremarkable. Unremarkable kidneys. Decompressed urinary bladder with Silva catheter. Unremarkable abdominal aorta. No bowel obstruction or bowel wall thickening. A gastrostomy tube is in place. Small amount of free pelvic fluid. Normal appendix. Gaseous distention of the colon. Shunt catheter distal tip projects in the left inferior pelvis. 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 No acute fracture. IMPRESSION: 1. Limited study as above. 2. No bowel obstruction or bowel wall thickening. 3. Normal appendix. 4. Shunt catheter distal tip terminates in the left hemipelvis. Small amount of ascites. ACT 112: Negative or not required by law. The above report was generated using voice recognition software. It may contain grammatical, syntax or spelling errors. Electronically signed by: Corey Rodgers M.D. 04/19/2023 1:21 PM Abdomen X-Ray 04/19/23 15:38 XR abdomen min 2V, XR chest 2V PA/lateral, XR skull <4V, XR cervical spine 2 or 3V HISTORY: 32 years-old Male Visualize Shunt shunt series radiographs COMPARISON: KUB 04/16/2023, chest radiograph 04/19/2023 TECHNIQUE: 2 views of the abdomen, 3 views of the cervical spine, 2 views of the chest and 2 views of the skull FINDINGS: SKULL: Visualized shunt catheter appears intact coursing along left neck and head. Craniotomy changes. No acute fracture. CERVICAL SPINE: No acute fracture or subluxation. Visualized shunt catheter appears intact. Tracheostomy cannula. CHEST: Visualize shunt catheter coursing along the left chest appears intact. Tracheostomy cannula. Subtle ill-defined right upper and midlung opacities. Cardiac silhouette is unchanged. No pleural effusion or pneumothorax. ABDOMEN: Gastrostomy tube. Contrast again noted within the colon. Moderate fecal retention. The visualized shunt catheter is intact, distal tip terminating within the left hemipelvis. IMPRESSION: 1. The visualized shunt catheter appears intact. 2. Subtle ill-defined right lung opacities. Correlate clinically to exclude pneumonia. 3. Nonobstructive bowel gas pattern. ACT 112: Negative or not required by law. The above report was generated using voice recognition software. It may contain grammatical, syntax or spelling errors. Electronically signed by: Corey Rodgers M.D. 04/19/2023 6:03 PM Cervical Spine X-Ray 04/19/23 15:38 XR abdomen min 2V, XR chest 2V PA/lateral, XR skull <4V, XR cervical spine 2 or 3V HISTORY: 32 years-old Male Visualize Shunt shunt series radiographs COMPARISON: KUB 04/16/2023, chest radiograph 04/19/2023 TECHNIQUE: 2 views of the abdomen, 3 views of the cervical spine, 2 views of the chest and 2 views of the skull FINDINGS: SKULL: Visualized shunt catheter appears intact coursing along left neck and head. Craniotomy changes. No acute fracture. CERVICAL SPINE: No acute fracture or subluxation. Visualized shunt catheter appears intact. Tracheostomy cannula. CHEST: Visualize shunt catheter coursing along the left chest appears intact. Tracheostomy cannula. Subtle ill-defined right upper and midlung opacities. Cardiac silhouette is unchanged. No pleural effusion or pneumothorax. ABDOMEN: Gastrostomy tube. Contrast again noted within the colon. Moderate fecal retention. The visualized shunt catheter is intact, distal tip terminating within the left hemipelvis. IMPRESSION: 1. The visualized shunt catheter appears intact. 2. Subtle ill-defined right lung opacities. Correlate clinically to exclude pneumonia. 3. Nonobstructive bowel gas pattern. ACT 112: Negative or not required by law. The above report was generated using voice recognition software. It may contain grammatical, syntax or spelling errors. Electronically signed by: Corey Rodgers M.D. 04/19/2023 6:03 PM Chest X-Ray 04/19/23 15:38 XR abdomen min 2V, XR chest 2V PA/lateral, XR skull <4V, XR cervical spine 2 or 3V HISTORY: 32 years-old Male Visualize Shunt shunt series radiographs COMPARISON: KUB 04/16/2023, chest radiograph 04/19/2023 TECHNIQUE: 2 views of the abdomen, 3 views of the cervical spine, 2 views of the chest and 2 views of the skull FINDINGS: SKULL: Visualized shunt catheter appears intact coursing along left neck and head. Craniotomy changes. No acute fracture. CERVICAL SPINE: No acute fracture or subluxation. Visualized shunt catheter appears intact. Tracheostomy cannula. CHEST: Visualize shunt catheter coursing along the left chest appears intact. Tracheostomy cannula. Subtle ill-defined right upper and midlung opacities. Cardiac silhouette is unchanged. No pleural effusion or pneumothorax. ABDOMEN: Gastrostomy tube. Contrast again noted within the colon. Moderate fecal retention. The visualized shunt catheter is intact, distal tip terminating within the left hemipelvis. IMPRESSION: 1. The visualized shunt catheter appears intact. 2. Subtle ill-defined right lung opacities. Correlate clinically to exclude pneumonia. 3. Nonobstructive bowel gas pattern. ACT 112: Negative or not required by law. The above report was generated using voice recognition software. It may contain grammatical, syntax or spelling errors. Electronically signed by: Corey Rodgers M.D. 04/19/2023 6:[address] 04/19/23 15:38 CT head/brain wo con CLINICAL HISTORY: 32 years-old Male with parox symp. hyperactivity, hx vp care management shunt per neuro. Acute headache TECHNIQUE: Multiple axial CT images of the head were obtained without contrast. A dose lowering technique was utilized adhering to the principles of ALARA. CT DOSE: 625.8 mGy.cm COMPARISON: 04/07/2023. FINDINGS: Motion degraded exam. Left anterior frontal approach ventriculostomy catheter is noted with distal tip of the catheter terminating within the frontal horn of the right lateral ventricle. Transverse dimension lateral ventricles is 3.9 cm, previously 3.7 cm. Right-sided craniotomy changes with a large area of encephalomalacia involving the right MCA territory. Additional encephalomalacia within the left basal ganglia/thalamus. Dural thickening lateral to the right cerebral hemisphere is is unchanged, likely a postsurgical finding. No acute intracranial hemorrhage, midline shift, intracranial mass, hydrocephalus, territorial ischemia or abnormal extra-axial collection. Right-sided craniotomy with heterogeneous appearance of the skull at the craniotomy site with multifocal lucent changes of unknown chronicity. 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 The paranasal sinuses, mastoid air cells, and middle ear cavities are clear. IMPRESSION: 1. Motion degraded exam without acute intracranial abnormality identified. 2. Right-sided craniotomy changes with right MCA territory encephalomalacia. 3. Ventricular dilation is unchanged from prior with a left anterior frontal approach ventriculostomy catheter in place. ACT 112: Negative or not required by law. The above report was generated using voice recognition software. It may contain grammatical, syntax or spelling errors. Electronically signed by: Corey Rodgers M.D. 04/19/2023 5:48 PM Skull X-Ray 04/19/23 15:38 XR abdomen min 2V, XR chest 2V PA/lateral, XR skull <4V, XR cervical spine 2 or 3V HISTORY: 32 years-old Male Visualize Shunt shunt series radiographs COMPARISON: KUB 04/16/2023, chest radiograph 04/19/2023 TECHNIQUE: 2 views of the abdomen, 3 views of the cervical spine, 2 views of the chest and 2 views of the skull FINDINGS: SKULL: Visualized shunt catheter appears intact coursing along left neck and head. Craniotomy changes. No acute fracture. CERVICAL SPINE: No acute fracture or subluxation. Visualized shunt catheter appears intact. Tracheostomy cannula. CHEST: Visualize shunt catheter coursing along the left chest appears intact. Tracheostomy cannula. Subtle ill-defined right upper and midlung opacities. Cardiac silhouette is unchanged. No pleural effusion or pneumothorax. ABDOMEN: Gastrostomy tube. Contrast again noted within the colon. Moderate fecal retention. The visualized shunt catheter is intact, distal tip terminating within the left hemipelvis. IMPRESSION: 1. The visualized shunt catheter appears intact. 2. Subtle ill-defined right lung opacities. Correlate clinically to exclude pneumonia. 3. Nonobstructive bowel gas pattern. ACT 112: Negative or not required by law. The above report was generated using voice recognition software. It may contain grammatical, syntax or spelling errors. Electronically signed by: Corey Rodgers M.D. 04/19/2023 6:03 PM Medications Administered Home Medications Medication Instructions Recorded Confirmed Last Taken apixaban 5 mg tablet (Eliquis) 5 mg feeding tube BID 04/02/23 04/03/23 Unknown scopolamine base 1 mg over 3 days 1 patch transdermal Q3D 04/02/23 04/03/23 04/02/23 08:00 transdermal patch acetaminophen 325 mg/10.15 mL oral 650 mg (20.3 mL) PEG Q6 #250 mL 04/17/23 Unk nown suspension baclofen 10 mg tablet 20 mg feeding tube Q6H #1 tab 04/17/23 04/03/23 Unknown bromocriptine 2.5 mg tablet 2.5 mg feeding tube Q6 #120 tabs 04/17/23 Unknown dantrolene 25 mg capsule 100 mg PEG Q6 #120 caps 04/17/23 Unknown escitalopram oxalate 5 mg/5 mL 5 mg (5 mL) PEG QAM #150 mL 04/17/23 Unknown oral solution ferrous sulfate 220 mg (44 mg 325 mg (7.3864 mL) G-tube Q48H 60 04/17/23 Unknown iron)/5 mL oral elixir days #221.592 mL gabapentin 250 mg/5 mL oral 400 mg (8 mL) PEG Q6 #250 mL 04/17/23 Unknown solution lactose-reduced food with fiber See Rx Instructions .Route 04/17/23 Unknown 0.06 gram-1.5 kcal/mL oral liquid .COMPLEX #5,688 mL (Jevity 1.5 Lance) metoprolol tartrate 25 mg tablet 25 mg PEG BID #60 tabs 04/17/23 Unknown multivit and minerals-ferrous 15 ml PEG QAM 30 days #450 mL 04/17/23 Unknown gluconate 9 mg iron/15 mL oral liquid (Centrum) Active Medications Generic Name Dose Route Start Last Admin Trade Name Freq PRN Reason Stop Dose Admin Apixaban 5 mg 04/19/23 09:00 04/21/23 08:37 Apixaban 5 Mg Tablet PO 05/19/23 08:59 5 mg BID TAYLOR Administration Baclofen 20 mg 04/19/23 08:45 04/21/23 08:38 Baclofen 10 Mg Tab PEG 05/19/23 08:44 20 mg Q6H TAYLOR Administration Bromocriptine Mesylate 2.5 mg 04/20/23 02:30 04/21/23 08:39 Bromocriptine Mesylate 2.5 Mg Tab PO 05/20/23 02:29 2.5 mg Q6H TAYLOR Administration Dantrolene Sodium 100 mg 04/20/23 02:30 04/21/23 08:39 Dantrolene Sodium 25 Mg Cap PEG 05/20/23 02:29 100 mg Q6H TAYLOR Administration Enteral Nutritional Formula 1,000 ml 04/20/23 09:00 04/21/23 10:10 Peptamen 1.5 Lance 1,000 Ml Bag PEG 05/20/23 08:59 1,000 ml .See Protocol TAYLOR Administration Protocol Escitalopram Oxalate 5 mg 04/19/23 09:00 04/21/23 08:36 Escitalopram Oxalate Oral Soln 5 Mg/5 Ml Udp PEG 05/19/23 08:59 5 mg QAM TAYLOR Administration Ferrous Sulfate 325 mg 04/19/23 08:45 04/21/23 08:36 Ferrous Sulfate Elix 220mg/5ml GT 05/19/23 08:44 325 mg Q48H TAYLOR Administration Gabapentin 400 mg 04/20/23 02:30 04/21/23 08:41 Gabapentin 250 Mg/5 Ml 470 Ml Btl GT 05/20/23 02:29 400 mg Q6H TAYLOR Administration Cefepime HCl 2,000 mg/ Syringe 20 mls @ 5 mls/min 04/19/23 16:30 04/21/23 08:35 IV 04/24/23 16:29 5 mls/min Q8H TAYLOR Administration Protocol Acetaminophen 1,000 mg in 100 mls @ 400 mls/hr 04/19/23 22:00 04/20/23 11:06 Ofirmev IV 04/22/23 21:59 Infused Q8H PRN Infusion Fever Parenteral Electrolytes 1,000 mls @ 125 mls/hr 04/19/23 22:45 04/21/23 08:34 Plasma-Lyte A Ph 7.4 IV 05/19/23 22:44 125 mls/hr .Q8H TAYLOR Administration Vancomycin HCl 1,000 mg/ 270 mls @ 200 mls/hr 04/21/23 01:00 04/21/23 08:36 Sodium Chloride IV 04/24/23 00:59 200 mls/hr Q8H TAYLOR Administration Metoprolol Tartrate 25 mg 04/19/23 09:00 04/21/23 08:37 Metoprolol Tartrate 25 Mg Tab PEG 05/19/23 08:59 25 mg BID TAYLOR Administration Multivitamins/Minerals 15 ml 04/19/23 09:00 04/21/23 08:37 Multi Vit W/Minerals Liquid 15 Ml Udp PEG 05/19/23 08:59 15 ml QAM TAYLOR Administration Sterile Water 250 ml 04/20/23 09:00 04/21/23 08:40 Tube Feeding Water Flush PEG 05/20/23 08:59 250 ml Q4H TAYLOR Administration
[2023-04-22] MEDS: PLASMA-LYTE A 1,000 ML IV SCH ×4 (00:16→23:04)
[2023-04-22] MEDS: CEFEPIME 2,000 MG in SYRINGE 0 ML IV SCH ×3 (00:41→17:05)
[2023-04-22] MEDS: VANCOMYCIN HCL 1,000 MG in SODIUM CHLORIDE 0.9% 250 ML IV SCH ×3 (00:41→17:03)
[2023-04-22] MEDS: TUBE FEEDING WATER FLUSH PEG SCH ×6 (00:41→20:53)
[2023-04-22] MEDS: GABAPENTIN 250 MG/5 ML 470 ML BTL GT SCH ×4 (03:47→20:52)
[2023-04-22] MEDS: BACLOFEN 10 MG TAB PEG SCH ×4 (03:48→20:54)
[2023-04-22] MEDS: BROMOCRIPTINE MESYLATE 2.5 MG TAB PO SCH ×4 (03:48→20:55)
[2023-04-22] MEDS: DANTROLENE SODIUM 25 MG CAP PEG SCH ×4 (03:48→20:56)
[2023-04-22 04:13] LABS: Basophils # (auto) 0.03 K/uL (0.00-0.20); Basophils % (auto) 0.5 %; Eosinophils # (auto) 0.12 K/uL (0.00-0.50); Hematocrit (blood only) 27.9 % (42.0-52.0); Hemoglobin 8.9 g/dl (14.0-18.0); Immature Granulocytes # (auto) 0.02 K/uL (0.01-0.20); Immature Granulocytes % (auto) 0.3 %; Lymphocytes # (auto) 1.18 K/uL (1.20-3.40); Lymphocytes % (auto) 19.5 %; Mean Corpuscular Hemoglobin 31.1 pg (25.0-34.0); Mean Corpuscular Hgb Conc 31.9 g/dL (32.0-36.0); Mean Corpuscular Volume 97.6 fL (80.0-100.0); Mean Platelet Volume 10.5 fL (9.4-12.4); Monocytes # (auto) 0.38 K/uL (0.11-0.59); Monocytes % (auto) 6.3 %; Neutrophils # (auto) 4.33 K/uL (1.40-6.50); Neutrophils % (auto) 71.4 %; Platelet Count 306 K/uL (130-400); RDW Coefficient of Variation 14.1 % (11.5-14.5); Red Blood Count 2.86 M/uL (4.70-6.10); White Blood Count 6.06 K/ul (4.8-10.8)
[2023-04-22 04:32] LABS: Anion Gap 6 (3-11); Blood Urea Nitrogen 7 mg/dl (6-23); Calcium 8.4 mg/dl (8.6-10.3); Carbon Dioxide 28 mmol/L (21-32); Chloride 108 mmol/L (98-107); Creatinine Clr Calc Pharmacy 286.1 ml/min; Est GFR (African American) > 150.0 ml/min; Est GFR (Non-African American) > 150.0 ml/min; Glucose 112 mg/dl (70-99(Fasting)); Potassium 3.6 mmol/L (3.5-5.1); Sodium 142 mmol/L (136-145)
[2023-04-22] MEDS ORDERED: VANCOMYCIN LEVEL ONE (08:30)
[2023-04-22] MEDS: ESCITALOPRAM OXALATE ORAL SOLN 5 MG/5 ML UDP PEG SCH (08:45)
[2023-04-22] MEDS: APIXABAN 5 MG TABLET PO SCH ×2 (08:45→20:54)
[2023-04-22] MEDS: MULTI VIT W/MINERALS LIQUID 15 ML UDP PEG SCH (08:45)
[2023-04-22] MEDS: METOPROLOL TARTRATE 25 MG TAB PEG SCH ×2 (08:45→20:57)
--- NOTE | 2023-04-22 10:42 | Pharmacy Report ---
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 * Day #4 of Vancomycin and Cefepime. ID consulted and recommend continuing both abx for CoNS bacteremia as well as cefepime for pulm source. * 1/2 blood cultures growing CoNS (no sensitivities to follow but often oxacillin-resistant) in both bottles. Previously had CoNS growing in blood cultures earlier this month. ID concerned for possible seeding of hardware given RN CHILD shunt. Trach/sputum cx growing gram negative bacilli x 2. * SCr very low at 0.28 mg/dL - suspect due to reduced muscle mass and not necessarily reflective of renal function. Bayesian software / [employer] / AUC- based monitoring may not be reliable given reduced correlation of SCr w renal function 2nd reduced muscle mass. May consider traditional trough-based monitoring instead. * Trough levels seems to be aligning with current AUC/BASHIR dosing recommendations. Continue with Bayesian software based dosing for now. Plan Vancomycin * Current regimen: 1000 mg IV every 8 hours * Trough level obtained 04/22/23 resulted as 13.5 mcg/mL. This is predicted to achieve target AUC/BASHIR of 400-600 mg/L.hr * Predicted AUC at steady state: 509 mg/L.hr * Continue 1000 mg IV every 8 hours * Repeat trough level ordered for: 04/24/23 Cefepime * 2000 mg IV every 8 hours Pharmacy will continue to follow and will adjust dose/frequency as necessary. Thank you. Pharmacy has transitioned to AUC monitoring for vancomycin. AUC/BASHIR is the preferred PK/PD target and is associated with decreased risk of nephrotoxicity compared to traditional trough targets.
[2023-04-22] MEDS: PEPTAMEN 1.5 CAL 1,000 ML BAG PEG SCH (11:01)
--- NOTE | 2023-04-22 13:05 | XCELERA ---
[id number]
--- NOTE | 2023-04-22 17:10 | Infectious Disease Progress Nt ---
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 He was diagnosed with CONS bacteremia in bottles ( diff strains) on 04/02 and CONS on 04/08. Since the strains were different in the 04/02 set , the bacteremia was thought to be a contaminant and there was less concern for shunt infection . 2decho w/o valve vegetations or abnormalities but were poor studies. Sputum from his trach grew hollis sensitive PsA and Kleb pna. C X-ray was negative for infiltrate. He was treated with a 10-day course f Cefepim for Pseudomonas aeruginosa tracheitis. He received about 10 days of IV Vancomycin. He returned to the ED on 04/19 for concerns for blocked feeding tube. This was cleared, but he developed fever w/ Tmax 39.6 , diaphoresis and tachycardia. He was empirically started on Zosyn. Labs notable for a WBC of 15.76, platelets 658, BUN 31, creatinine 0.48 . procalcitonin 0.89, LA 2.9. UA with 10-30. Admission blood cultures grew CONS in 2/4 bottles . Trach Sputum cultures grew gram-negative bacilli pending identification. Urine culture no significant growth. Skull, chest, abd x-ray showed subtle ill-defined right lung opacity , shunt catheter was intact. Head CT showed right-sided craniotomy changes with right MCA territory encephalomalacia. Ventricular dilatation was unchanged from prior with a left anterior frontal ventriculostomy catheter in place CT of the abdomen pelvis showed the shunt catheter in the left hemipelvis with ascites, ID consulted for bacteremia #Recurrent CONS bacteremia # CONS ( MRSE via PCR) bacteremia 04/02 #CoNS (MRSE per cx) bacteremia 04/08 #PMP PROJECT MANAGER shunt #Tracheostomy Micro prior admission BC 04/02 2/4 CONS, 1/4 COns #2 BC 04/03 sterile sputum cx 04/03 PSA , Kleb Pna BC 04/08 14 CONS R to oxacillin BC 04/10 sterile this admission BC 04/19 2/4 CONS UC 04/19 sterile sputum cx 04/20 GNR 1, GNR 2 BC 04/22 P ABX Prior admission Cefepime 04/05-04/14 Vancomycin 04/02-04/11 This admission zosy 04/19 cefepime 04/19-ongoing vancomycin 04/19-ongoing Recurrent CONS bacteremia in setting oF PMP PROJECT MANAGER shunt is concerning for ? seeding of hardware or infection at another protected site. No linda signs of infection of PMP PROJECT MANAGER shunt on imaging or on exam. GNR from trach less concerning for Pna, as he recently completed course of cefepime and has no resp symptoms. May be colonization. Decubitus ulcer picture reviewed. Chronic appearing without evidence of infection . Recommendations . Continue Vancomycin per pharmacy protocol and Cefepime for now FU TTE FU BC FU CONS sensi ( asked micro to add) FU GNR sensi NS Eval for PMP PRO[employer] MANAGER shunt given recurrent CONS bacteremia, unclear if it may be infected. DW team ID will continue to follow. Ronnie Agustin MD, MPH Infectious Disease ID [facility], ID Division Call [phone] with questions Admission and Anticipated Discharge Date Admission Date: April 19, 2023 Subjective This patient recommendation is based on a telemedicine consult request which was completed asynchronously through chart review and information provided by the primary physician. The patient was not seen or examined today. The evaluation is consultative in nature and all patient care and treatment decisions can either be accepted or rejected by the patient's primary hospital-based treating physician using their own independent medical judgment for their patient. Time Spent Reviewing Chart: 11 - 20 minutes repeat BC pending Results & Data Vital Signs (Past 12 Hours) Vital Signs Temp Pulse Pulse Resp BP Pulse Ox Pulse Ox 04/22/23 15:00 36.2 C L 78 20 119/78 99 04/22/23 11:00 36.3 C L 72 16 116/79 99 04/22/23 08:00 69 04/22/23 08:00 04/22/23 08:00 99 04/22/23 07:00 36.8 C 66 18 106/78 97 O2 Del Method O2 Del Method O2 Flow Rate FiO2 04/22/23 15:00 Trach Collar 5.5 28 04/22/23 11:00 Trach Collar 28 04/22/23 08:00 04/22/23 08:00 Trach Collar 28 04/22/23 08:00 Trach Collar 04/22/23 07:00 Trach Collar 28 Laboratory Results Short CBC 04/22/23 Range/Units 03:51 WBC 6.06 (4.8-10.8) K/ul Hgb 8.9 L (14.0-18.0) g/dl Hct 27.9 L (42.0-52.0) % Plt Count 306 (130-400) K/uL BMP 04/22/23 03:51 Sodium 142 Potassium 3.6 Chloride 108 H Carbon Dioxide 28 BUN 7 Creatinine 0.28 L Glucose 112 H Calcium 8.4 L Diagnostic Findings Microbiology 04/20/23 Unknown Sputum,Trach Gram Stain - Final 04/20/23 Unknown Sputum,Trach Sputum Culture - Preliminary Gram negative bacilli Gram negative bacilli#2 04/19/23 12:15 Blood Aerobic Blood Culture - Preliminary No growth in Aerobic bottle after 48 hours. 04/19/23 12:15 Blood Anaerobic Blood Culture - Preliminary No growth in Anaerobic bottle after 48 hours. 04/19/23 12:30 Blood Aerobic Blood Culture - Final Coag neg staph not lugdunensis 04/19/23 12:30 Blood Anaerobic Blood Culture - Final Coag neg staph not lugdunensis 04/19/23 12:30 Urine,Straight Cath Urine Culture - Final No growth - less than 1,000 colonies/mL. Abdomen X-Ray 04/19/23 15:38 XR abdomen min 2V, XR chest 2V PA/lateral, XR skull <4V, XR cervical spine 2 or 3V HISTORY: 32 years-old Male Visualize Shunt shunt series radiographs COMPARISON: KUB 04/16/2023, chest radiograph 04/19/2023 TECHNIQUE: 2 views of the abdomen, 3 views of the cervical spine, 2 views of the chest and 2 views of the skull FINDINGS: SKULL: Visualized shunt catheter appears intact coursing along left neck and head. Craniotomy changes. No acute fracture. CERVICAL SPINE: No acute fracture or subluxation. Visualized shunt catheter appears intact. Tracheostomy cannula. CHEST: Visualize shunt catheter coursing along the left chest appears intact. Tracheostomy cannula. Subtle ill-defined right upper and midlung opacities. Cardiac silhouette is unchanged. No pleural effusion or pneumothorax. ABDOMEN: Gastrostomy tube. Contrast again noted within the colon. Moderate fecal retention. The visualized shunt catheter is intact, distal tip terminating within the left hemipelvis. IMPRESSION: 1. The visualized shunt catheter appears intact. 2. Subtle ill-defined right lung opacities. Correlate clinically to exclude pneumonia. 3. Nonobstructive bowel gas pattern. ACT 112: Negative or not required by law. The above report was generated using voice recognition software. It may contain grammatical, syntax or spelling errors. Electronically signed by: Corey Rodgers M.D. 04/19/2023 6:03 PM Cervical Spine X-Ray 04/19/23 15:38 XR abdomen min 2V, XR chest 2V PA/lateral, XR skull <4V, XR cervical spine 2 or 3V HISTORY: 32 years-old Male Visualize Shunt shunt series radiographs COMPARISON: KUB 04/16/2023, chest radiograph 04/19/2023 TECHNIQUE: 2 views of the abdomen, 3 views of the cervical spine, 2 views of the chest and 2 views of the skull FINDINGS: SKULL: Visualized shunt catheter appears intact coursing along left neck and head. Craniotomy changes. No acute fracture. CERVICAL SPINE: No acute fracture or subluxation. Visualized shunt catheter appears intact. Tracheostomy cannula. CHEST: Visualize shunt catheter coursing along the left chest appears intact. Tracheostomy cannula. Subtle ill-defined right upper and midlung opacities. Cardiac silhouette is unchanged. No pleural effusion or pneumothorax. ABDOMEN: Gastrostomy tube. Contrast again noted within the colon. Moderate fecal retention. The visualized shunt catheter is intact, distal tip terminating within the left hemipelvis. IMPRESSION: 1. The visualized shunt catheter appears intact. 2. Subtle ill-defined right lung opacities. Correlate clinically to exclude pneumonia. 3. Nonobstructive bowel gas pattern. ACT 112: Negative or not required by law. The above report was generated using voice recognition software. It may contain grammatical, syntax or spelling errors. Electronically signed by: Corey Rodgers M.D. 04/19/2023 6:03 PM Chest X-Ray 04/19/23 15:38 XR abdomen min 2V, XR chest 2V PA/lateral, XR skull <4V, XR cervical spine 2 or 3V HISTORY: 32 years-old Male Visualize Shunt shunt series radiographs COMPARISON: KUB 04/16/2023, chest radiograph 04/19/2023 TECHNIQUE: 2 views of the abdomen, 3 views of the cervical spine, 2 views of the chest and 2 views of the skull FINDINGS: SKULL: Visualized shunt catheter appears intact coursing along left neck and head. Craniotomy changes. No acute fracture. CERVICAL SPINE: No acute fracture or subluxation. Visualized shunt catheter appears intact. Tracheostomy cannula. CHEST: Visualize shunt catheter coursing along the left chest appears intact. Tracheostomy cannula. Subtle ill-defined right upper and midlung opacities. Cardiac silhouette is unchanged. No pleural effusion or pneumothorax. ABDOMEN: Gastrostomy tube. Contrast again noted within the colon. Moderate fecal retention. The visualized shunt catheter is intact, distal tip terminating within the left hemipelvis. IMPRESSION: 1. The visualized shunt catheter appears intact. 2. Subtle ill-defined right lung opacities. Correlate clinically to exclude pneumonia. 3. Nonobstructive bowel gas pattern. ACT 112: Negative or not required by law. The above report was generated using voice recognition software. It may contain grammatical, syntax or spelling errors. Electronically signed by: Corey Rodgers M.D. 04/19/2023 6:[address] 04/19/23 15:38 CT head/brain wo con CLINICAL HISTORY: 32 years-old Male with parox symp. hyperactivity, hx vp data shunt per neuro. Acute headache TECHNIQUE: Multiple axial CT images of the head were obtained without contrast. A dose lowering technique was utilized adhering to the principles of ALARA. CT DOSE: 625.8 mGy.cm COMPARISON: 04/07/2023. FINDINGS: Motion degraded exam. Left anterior frontal approach ventriculostomy catheter is noted with distal tip of the catheter terminating within the frontal horn of the right lateral ventricle. Transverse dimension lateral ventricles is 3.9 cm, previously 3.7 cm. Right-sided craniotomy changes with a large area of encephalomalacia involving the right MCA territory. Additional encephalomalacia within the left basal ganglia/thalamus. Dural thickening lateral to the right cerebral hemisphere is is unchanged, likely a postsurgical finding. No acute intracranial hemorrhage, midline shift, intracranial mass, hydrocephalus, territorial ischemia or abnormal extra-axial collection. Right-sided craniotomy with heterogeneous appearance of the skull at the craniotomy site with multi focal lucent changes of unknown chronicity. 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 The paranasal sinuses, mastoid air cells, and middle ear cavities are clear. IMPRESSION: 1. Motion degraded exam without acute intracranial abnormality identified. 2. Right-sided craniotomy changes with right MCA territory encephalomalacia. 3. Ventricular dilation is unchanged from prior with a left anterior frontal approach ventriculostomy catheter in place. ACT 112: Negative or not required by law. The above report was generated using voice recognition software. It may contain grammatical, syntax or spelling errors. Electronically signed by: Corey Rodgers M.D. 04/19/2023 5:48 PM Skull X-Ray 04/19/23 15:38 XR abdomen min 2V, XR chest 2V PA/lateral, XR skull <4V, XR cervical spine 2 or 3V HISTORY: 32 years-old Male Visualize Shunt shunt series radiographs COMPARISON: KUB 04/16/2023, chest radiograph 04/19/2023 TECHNIQUE: 2 views of the abdomen, 3 views of the cervical spine, 2 views of the chest and 2 views of the skull FINDINGS: SKULL: Visualized shunt catheter appears intact coursing along left neck and head. Craniotomy changes. No acute fracture. CERVICAL SPINE: No acute fracture or subluxation. Visualized shunt catheter appears intact. Tracheostomy cannula. CHEST: Visualize shunt catheter coursing along the left chest appears intact. Tracheostomy cannula. Subtle ill-defined right upper and midlung opacities. Cardiac silhouette is unchanged. No pleural effusion or pneumothorax. ABDOMEN: Gastrostomy tube. Contrast again noted within the colon. Moderate fecal retention. The visualized shunt catheter is intact, distal tip terminating within the left hemipelvis. IMPRESSION: 1. The visualized shunt catheter appears intact. 2. Subtle ill-defined right lung opacities. Correlate clinically to exclude pneumonia. 3. Nonobstructive bowel gas pattern. ACT 112: Negative or not required by law. The above report was generated using voice recognition software. It may contain grammatical, syntax or spelling errors. Electronically signed by: Corey Rodgers M.D. 04/19/2023 6:03 PM Medications Administered Home Medications Medication Instructions Recorded Confirmed Last Taken apixaban 5 mg tablet (Eliquis) 5 mg feeding tube BID 04/02/23 04/03/23 Unknown scopolamine base 1 mg over 3 days 1 patch transdermal Q3D 04/02/23 04/03/23 04/02/23 08:00 transdermal patch acetaminophen 325 mg/10.15 mL oral 650 mg (20.3 mL) PEG Q6 #250 mL 04/17/23 Unknown suspension baclofen 10 mg tablet 20 mg feeding tube Q6H #1 tab 04/17/23 04/03/23 Unknown bromocriptine 2.5 mg tablet 2.5 mg feeding tube Q6 #120 tabs 04/17/23 Unknown dantrolene 25 mg capsule 100 mg PEG Q6 #120 caps 04/17/23 Unknown escitalopram oxalate 5 mg/5 mL 5 mg (5 mL) PEG QAM #150 mL 04/17/23 Unknown oral solution ferrous sulfate 220 mg (44 mg 325 mg (7.3864 mL) G-tube Q48H 60 04/17/23 Unknown iron)/5 mL oral elixir days #221.592 mL gabapentin 250 mg/5 mL oral 400 mg (8 mL) PEG Q6 #250 mL 04/17/23 Unknown solution lactose-reduced food with fiber See Rx Instructions .Route 04/17/23 Unknown 0.06 gram-1.5 kcal/mL oral liquid .COMPLEX #5,688 mL (Jevity 1.5 Lance) metoprolol tartrate 25 mg tablet 25 mg PEG BID #60 tabs 04/17/23 Unknown multivit and minerals-ferrous 15 ml PEG QAM 30 days #450 mL 04/17/23 Unknown gluconate 9 mg iron/15 mL oral liquid (Centrum) Active Medications Generic Name Dose Route Start Last Admin Trade Name Nelsy PRN Reason Stop Dose Admin Apixaban 5 mg 04/19/23 09:00 04/22/23 08:45 Apixaban 5 Mg Tablet PO 05/19/23 08:59 5 mg BID TAYLOR Administration Baclofen 20 mg 04/19/23 08:45 04/22/23 15:21 Baclofen 10 Mg Tab PEG 05/19/23 08:44 20 mg Q6H TAYLOR Administration Bromocriptine Mesylate 2.5 mg 04/20/23 02:30 04/22/23 15:21 Bromocriptine Mesylate 2.5 Mg Tab PO 05/20/23 02:29 2.5 mg Q6H TAYLOR Administration Dantrolene Sodium 100 mg 04/20/23 02:30 04/22/23 15:21 Dantrolene Sodium 25 Mg Cap PEG 05/20/23 02:29 100 mg Q6H TAYLOR Administration Enteral Nutritional Formula 1,000 ml 04/20/23 09:00 04/22/23 11:01 Peptamen 1.5 Lance 1,000 Ml Bag PEG 05/20/23 08:59 1,000 ml .See Protocol TAYLOR Administration Protocol Escitalopram Oxalate 5 mg 04/19/23 09:00 04/22/23 08:45 Escitalopram Oxalate Oral Soln 5 Mg/5 Ml Udp PEG 05/19/23 08:59 5 mg QAM TAYLOR Administration Ferrous Sulfate 325 mg 04/19/23 08:45 04/21/23 08:36 Ferrous Sulfate Elix 220mg/5ml GT 05/19/23 08:44 325 mg Q48H TAYLOR Administration Gabapentin 400 mg 04/20/23 02:30 04/22/23 15:38 Gabapentin 250 Mg/5 Ml 470 Ml Btl GT 05/20/23 02:29 400 mg Q6H TAYLOR Administration Cefepime HCl 2,000 mg/ Syringe 20 mls @ 5 mls/min 04/19/23 16:30 04/22/23 17:05 IV 04/26/23 16:29 5 mls/min Q8H TAYLOR Administration Protocol Acetaminophen 1,000 mg in 100 mls @ 400 mls/hr 04/19/23 22:00 04/20/23 11:06 Ofirmev IV 04/22/23 21:59 Infused Q8H PRN Infusion Fever Parenteral Electrolytes 1,000 mls @ 125 mls/hr 04/19/23 22:45 04/22/23 15:20 Plasma-Lyte A Ph 7.4 IV 05/19/23 22:44 125 mls/hr .Q8H TAYLOR Administration Vancomycin HCl 1,000 mg/ 270 mls @ 200 mls/hr 04/21/23 01:00 04/22/23 17:03 Sodium Chloride IV 05/05/23 00:59 200 mls/hr Q8H TAYLOR Administration Metoprolol Tartrate 25 mg 04/19/23 09:00 04/22/23 08:45 Metoprolol Tartrate 25 Mg Tab PEG 05/19/23 08:59 25 mg BID TAYLOR Administration Multivitamins/Minerals 15 ml 04/19/23 09:00 10/31/23 08:45 Multi Vit W/Minerals Liquid 15 Ml Udp PEG 05/19/23 08:59 15 ml QAM TAYLOR Administration Sterile Water 250 ml 04/20/23 09:00 04/22/23 17:04 Tube Feeding Water Flush PEG 05/20/23 08:59 250 ml Q4H TAYLOR Administration
--- NOTE | 2023-04-22 18:48 | Hospitalist Progress Note ---
Date of Service April 22, 2023 Assessment & Plan (1) Sepsis: Plan: -Likely secondary to gram positive cocci, source could be his chronic sacral wounds. lactate initially elevated, also procalcitonin -Blood cultures growing coag negative staph -Trach gram stain positive for gram negative bacteria, although could be normal juice While awaiting transport back to [facility] patient developed acute tachycardia, fever at 39.6, diaphoresis, and sweating. - Chronic sacral wound is present, posterior calves with pressure wounds which are not infected appearing. Will continue sepsis tx and follow bc/uc. UA from [facility] infected appearing. Past cx + for Kleb and Pseudomonas. -Continue on cefepime/vancomycin Infectious disease on board: Recommended neurosurgical eval for CASE RESOLUTION SPECIALIST shunt given recurrent coag negative staph bacteremia unclear if it may be infected. Ordered TTE and blood cultures per ID recommendations. Pending results. patient has been accepted by Dr. Redmond at medical ICU in [email or web address] Dr. Singh (neurosurgeon) is willing to see the patient in consultation once he goes to [facility] [[email or web address] Awaiting bed availability. Spoke to the patient's aunt and she okayed the transfer to [facility] at [place] (2) History of nontraumatic rupture of cerebral aneurysm: Plan: Ruptured intracranial aneurysm beginning of 2022, with craniotomy and hematoma evacuation at [facility], subsequently with skull plate replantation November 2022 Nonverbal, does not follow commands since. PEG tube in place since August 2022 which has clogged frequently, although generally able to be well maintained during hospitalizations Guardian/surrogate decision makers patient's mother Sharlene who reaffirms full code, and he would want and she wants any and all available medical interventions to sustain and extend his life Continue bromocryptine 2.5 mg every 6 hours, dantrolene 100 mg every 6 hours, gabapentin 400 mg every 6 hours, baclofen 20mg q6h (3) Autonomic dysfunction: Plan: History of severe tachycardia, fever, sweating, and rigidity with paroxysmal sympathetic hyperactivity and dysregulation in the past -Patient w/ hx of febrile and tachycardic decompensation when his medications were missed in the past, did not receive bromocriptine/dantrolene/gabapentin while PEG tube was clogged. These were given at approximately 1130am in ER 04/19 and scheduled. Suspect severe autonomic dysfunction with paroxysmal sympathetic storm which patient has had previous hospitalizations and when medications have been missed. Amitriptyline/dantrolene/gabapentin/baclofen/morphine as noted (4) History of DVT (deep vein thrombosis): Plan: Apixaban 5 mg p.o. twice daily (5) Decubitus ulcer of calf, unstageable: (6) Moderate protein-calorie malnutrition: Plan: - Nutrition consult (7) S/P CASE RESOLUTION SPECIALIST shunt: Plan: - Noted, tip in place on CT. (8) Respiratory failure: Plan: Trach to vent Vent mgt per superintendent system operation Plan DVT ppx: anticoagulated Diet: PEG Dispo: Code: Full Code Admission and Anticipated Discharge Date Admission Date: April 19, 2023 Subjective Patient is nonverbal at baseline Review of Systems Review of Systems: Unobtainable due to cognitive status Physical Exam Physical Exam: General: nonverbal, sleeping. Trach in place, PEG tube in place Heart: S1, S2/regular rate and rhythm, no murmur rubs or gallops Lungs: Clear to auscultation bilaterally. Normal effort Abdomen: Soft/nontender/nondistended. No hepatosplenomegaly Extremities: No clubbing/cyanosis. No edema Behavior: unable to assess Results & Data Results & Data Vital Signs (Past 12 Hours) Vital Signs Temp Pulse Pulse Resp BP Pulse Ox Pulse Ox 04/22/23 15:00 36.2 C L 78 20 119/78 99 04/22/23 11:00 36.3 C L 72 16 116/79 99 04/22/23 08:00 69 04/22/23 08:00 04/22/23 08:00 99 04/22/23 07:00 36.8 C 66 18 106/78 97 O2 Del Method O2 Del Method O2 Flow Rate FiO2 04/22/23 15:00 Trach Collar 5.5 28 04/22/23 11:00 Trach Collar 28 04/22/23 08:00 04/22/23 08:00 Trach Collar 28 04/22/23 08:00 Trach Collar 04/22/23 07:00 Trach Collar 28 PG Care Time/CCT Total # of Minutes Spent Total Time Spent with Patient: Total time spent is greater than 50% in coordination of care (as documented) at patient's floor/unit and/or counseling patient: Coding Level of Care Code 04270 SUB INP/OBS CARE 2/35MIN Diagnoses Sepsis A41.9 History of nontraumatic rupture of cerebral aneurysm Z86.79 Autonomic dysfunction G90.9 History of DVT (deep vein thrombosis) Z86.718 Decubitus ulcer of calf, unstageable L89.890 Moderate protein-calorie malnutrition E44.0 S/P CASE RESOLUTION SPECIALIST shunt Z98.2 Respiratory failure J96.90
[2023-04-23] MEDS: TUBE FEEDING WATER FLUSH PEG SCH ×3 (01:51→08:01)
[2023-04-23] MEDS: GABAPENTIN 250 MG/5 ML 470 ML BTL GT SCH ×2 (01:51→08:02)
[2023-04-23] MEDS: CEFEPIME 2,000 MG in SYRINGE 0 ML IV SCH ×2 (01:51→08:01)
[2023-04-23] MEDS: VANCOMYCIN HCL 1,000 MG in SODIUM CHLORIDE 0.9% 250 ML IV SCH ×2 (01:52→08:01)
[2023-04-23] MEDS: BACLOFEN 10 MG TAB PEG SCH ×2 (01:53→08:03)
[2023-04-23] MEDS: BROMOCRIPTINE MESYLATE 2.5 MG TAB PO SCH ×2 (01:53→08:03)
[2023-04-23] MEDS: DANTROLENE SODIUM 25 MG CAP PEG SCH ×2 (01:54→08:02)
[2023-04-23 05:34] LABS: Creatinine Clr Calc Pharmacy 310.2 ml/min; Est GFR (African American) > 150.0 ml/min; Est GFR (Non-African American) > 150.0 ml/min
[2023-04-23] MEDS: PLASMA-LYTE A 1,000 ML IV SCH (07:56)
[2023-04-23] MEDS: PEPTAMEN 1.5 CAL 1,000 ML BAG PEG SCH (08:00)
[2023-04-23] MEDS: FERROUS SULFATE ELIX 220MG/5ML GT SCH (08:04)
[2023-04-23] MEDS: APIXABAN 5 MG TABLET PO SCH (08:04)
[2023-04-23] MEDS: MULTI VIT W/MINERALS LIQUID 15 ML UDP PEG SCH (08:04)
[2023-04-23] MEDS: ESCITALOPRAM OXALATE ORAL SOLN 5 MG/5 ML UDP PEG SCH (08:04)
[2023-04-23] MEDS: METOPROLOL TARTRATE 25 MG TAB PEG SCH (08:05)
--- NOTE | 2023-04-23 10:32 | Discharge Summary ---
Date of Service April 23, 2023 Admission HPI Per Admitting Provider Ry is seen in the ER. He is a 30-year-old male [facility] nonverbal resident with a history of chronic trach, PEG tube, and nonverbal status following a history of ruptured brain aneurysm in the being of 2022. Subsequent to this patient had a craniotomy and hematoma evacuation at [facility], stabilized, and had skull plate replanted November 2022. Patient has been at [facility] since, has had intermittent PEG tube exchanges due to clogging, and was last admitted to this facility 04/03/2023 - 04/17/2023 for probable right lower lobe pneumonia? Bacterial tracheitis. Infectious disease was consulted during that admission, he was recommended to continue cefepime through 04/14, and vancomycin was continued 04/02 - 04/11 and then discontinued with no evidence of MRSE/CONS. Pt w/ autonomic dysregulation during that admission due to med reconciliation error, greatly improved with dantrolene/bromocryptine administration. Ry presented to the ER overnight with concern for blocked feeding tube. EMS attempted to do so to unclog the tube but were unsuccessful and sent him to the ER for potential feeding tube replacement. Tube was cleared in the ER and patient was pending transport back to [facility], at 11:30 AM on reassessment patient was with rapid clinical worsening, appeared febrile and diaphoretic, temperature of 39.6, and heart rate had increased from 90slow 100-170s. Lactate elevated.Patient subsequently ordered 30+ cc per kilogram per sepsis prior to, blood cultures were drawn, quad screen sent, treated empirically with Zosyn, called and he was recommended for admission for treatment of sepsis. 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 Admission Exam Per Admitting Provider General: Nonverbal. Diaphoretic. Does not follow commands. Lungs: Breath sounds coarse, with some rhonchi bilaterally. No wheezing Abdomen soft, without guarding Skin: Calves with pressure ulcers bilaterally, these are without erythem a/warmth/tenderness/drainage. Sacrum is with thin layer of skin overlying and no purulence/discharge. Sacral pressure ulcer is as noted in image below. Principal Diagnosis sepsis with Coag negative staph bacteremia recurrent Concern for infection of AUTO BODY REPAIRER shunt History of nontraumatic rupture of cerebral aneurysm Autonomic dysfunction History of DVT Unstable triple decubitus ulcer of calf Moderate protein calorie malnutrition Functional quadriplegia, status post trach and PEG Discharge Exam General: nonverbal, sleeping. Trach in place, PEG tube in place Heart: S1, S2/regular rate and rhythm, no murmur rubs or gallops Lungs: Clear to auscultation bilaterally. Normal effort Abdomen: Soft/nontender/nondistended. No hepatosplenomegaly Extremities: No clubbing/cyanosis. No edema Behavior: unable to assess Discharge Data Allergies Allergy/AdvReac Type Severity Reaction Status Date / Time No Known Allergies Allergy Unverified 04/04/23 09:03 Consultations 04/19/23 12:18 ED Decision to Admit Stat 04/20/23 10:38 Consult Infectious Diseases Routine 04/23/23 10:05 Burn CD for patient Stat Ordered Studies 04/19/23 11:27 CT Abd and Pelvis [CT abd pelvis wo con] Stat 04/19/23 15:38 CT head/brain wo con Urgent Hospital Course (1) Sepsis: -Likely secondary to gram positive cocci, source could be his chronic sacral wounds. lactate initially elevated, also procalcitonin -Blood cultures growing coag negative staph -Trach gram stain positive for gram negative bacteria, although could be normal juice While awaiting transport back to [facility] patient developed acute tachycardia, fever at 39.6, diaphoresis, and sweating. - Chronic sacral wound is present, posterior calves with pressure wounds which are not infected appearing. Will continue sepsis tx and follow bc/uc. UA from [facility] infected appearing. Past cx + for Kleb and Pseudomonas. -Continue on cefepime/vancomycin Infectious disease on board: Recommended neurosurgical eval for AUTO BODY REPAIRER shunt given recurrent coag negative staph bacteremia unclear if it may be infected. TTE unremarkable, no vegetation. Repeat blood cultures from 04/22 came back positive for GPC's again patient has been accepted by Dr. Redmond at medical ICU in [facility]. Dr. Singh (neurosurgeon at [facility]) is willing to see the patient in consultation once he goes to [facility]. Spoke to the patient's mother today (2) History of nontraumatic rupture of cerebral aneurysm: Ruptured intracranial aneurysm beginning of 2022, with craniotomy and hematoma evacuation at [facility], subsequently with skull plate replantation November 2022 Nonverbal, does not follow commands since. PEG tube in place since August 2022 which has clogged frequently, although generally able to be well maintained during hospitalizations Guardian/surrogate decision makers patient's mother Sharlene who reaffirms full code, and he would want and she wants any and all available medical interventions to sustain and extend his life Continue bromocryptine 2.5 mg every 6 hours, dantrolene 100 mg every 6 hours, gabapentin 400 mg every 6 hours, baclofen 20mg q6h (3) Autonomic dysfunction: History of severe tachycardia, fever, sweating, and rigidity with paroxysmal sympathetic hyperactivity and dysregulation in the past -Patient w/ hx of febrile and tachycardic decompensation when his medications were missed in the past, did not receive bromocriptine/dantrolene/gabapentin while PEG tube was clogged. These were given at approximately 1130am in ER 04/19 and scheduled. Suspect severe autonomic dysfunction with paroxysmal sympathetic storm which patient has had previous hospitalizations and when medications have been missed. Amitriptyline/dantrolene/gabapentin/baclofen/morphine as noted (4) History of DVT (deep vein thrombosis): Apixaban 5 mg p.o. twice daily (5) Decubitus ulcer of calf, unstageable: (6) Moderate protein-calorie malnutrition: - Nutrition consult (7) S/P AUTO BODY REPAIRER shunt: CT head on 04/19 showed ventricular dilatation unchanged from prior with left anterior frontal approach ventriculostomy catheter in place (8) Respiratory failure: Trach to vent Vent mgt per backpackers manager Plan DVT ppx: anticoagulated Diet: PEG Dispo: Code: Full Code Total Time Total Time Spent Total Time Spent (In Minutes): 35 Discharge Plan Discharge Items Patient Disposition: Transfer Acute Care Hospital Reason For Visit: SEPSIS VS PAROX SYMPATHETIC HYPERACTIVITY Discharge Diagnosis: Coag neg Staph Bacteremia AUTO BODY REPAIRER shunt Condition on Discharge: Fair Activity: As commented below Activity Comment: bed rest Non-emergency contact: Primary Care Provider Call non-emergency contact if: you have any medication questions Follow-up/Referrals: Edgardo Pruett [Primary Care Provider] - Diet: Other - See Diet Comment Diet Comment: tube feeds Addtl Attending Provider Instructions: advised to note that you are being transferred to [facility] for escalation of care. You will be evaluated by a neurosurgeon for the possibility of a AUTO BODY REPAIRER shunt infection since you are recurrently bacteremic. Pending Studies at Discharge: Yes Studies:: Repeat blood cultures from 04/22 Stand-Alone Forms: My [facility] Skilled Items Patient informed of condition?: Yes DNR: No Discharge Level of Care: Other Communicable Disease: No Discharge Prognosis: Stable Lines: Peripheral IV Urinary Catheter: Yes Medications and DC Order Prescriptions: Continued scopolamine base 1 mg over 3 days Patch 3 Day 1 patch TRANSDERMAL Q3D Eliquis 5 mg Tablet 5 mg feeding tube BID dantrolene 25 mg Capsule 100 mg PEG Q6 Qty: 120 11RF gabapentin 250 mg/5 mL Solution 400 mg PEG Q6 Qty: 250 11RF bromocriptine 2.5 mg Tablet 2.5 mg feeding tube Q6 Qty: 120 11RF escitalopram oxalate 5 mg/5 mL Solution 5 mg PEG QAM Qty: 150 11RF metoprolol tartrate 25 mg Tablet 25 mg PEG BID Qty: 60 11RF acetaminophen 325 mg/10.15 mL Suspension 650 mg PEG Q6 Qty: 250 0RF Centrum 9 mg iron/15 mL Liquid 15 ml PEG QAM 30 Days Qty: 450 11RF ferrous sulfate 220 mg (44 mg iron)/5 mL Elixir 325 mg G-tube Q48H 60 Days Qty: 221.592 0RF baclofen 10 mg Tablet 20 mg feeding tube Q6H Qty: 1 0RF Discontinued Jevity 1.5 Lance 0.06 gram-1.5 kcal/mL liquid See Rx Instructions .ROUTE .COMPLEX Qty: 5688 11RF Rx Instructions: 60cc/hr via PEG tube CONTINUOUSLY. Discharge Orders: Discharge Order (Routine); Ordered 04/23/23 Ordered By: Karl Estrella Admission Data Admit Date/Time: 04/19/23 16:13 Attending Provider: Karl Estrella Admit Provider: Gael York Primary Care Provider: Edgardo Pruett Other Providers: Gael York ; Saira Maki ; Yair Paz ; Jenny Lake ; Tom Fair ; Sandy Vallejo ; Vidhya Arreola ; Nohemi Gifford ; Ronnie Agustin ; Ayesha Barrios ; Ambreen Meredith Other Interventions: Discharge Summary Assessment (RN) Last Done: 04/23/23 10:43 Coding Level of Care Code 36882 INP/OBS DISCH >30 MIN Diagnoses Sepsis A41.9 History of nontraumatic rupture of cerebral aneurysm Z86.79 Autonomic dysfunction G90.9 History of DVT (deep vein thrombosis) Z86.718 Decubitus ulcer of calf, unstageable L89.890 Moderate protein-calorie malnutrition E44.0 S/P AUTO BODY REPAIRER shunt Z98.2 Respiratory failure J96.90
[2023-04-24] MEDS ORDERED: VANCOMYCIN LEVEL ONE (08:30)
== END 2023-04-23 11:29 | disposition short-term general hospital (02) | DRG 91 ==
LOC: ED 00:49 → 1E 06:23 → SUATTDRO 16:13

== ENCOUNTER 2023-05-04 09:49 | Inpatient (IN) ==
[2023-05-04] MEDS ORDERED: SODIUM CHLORIDE 0.9% 1,000 ML IV ONE ×2 (11:23→11:26)
[2023-05-04] MEDS ORDERED: VANCOMYCIN CONSULT ACTIVE PRN ×2 (11:27→14:43)
[2023-05-04] MEDS ORDERED: CEFEPIME 2,000 MG/20 ML VIAL IV STA (11:27)
[2023-05-04] MEDS ORDERED: VANCOMYCIN HCL 1,000 MG in SODIUM CHLORIDE 0.9% 500 ML IV ONE (11:27)
--- NOTE | 2023-05-04 11:28 | Emergency Department Note ---
Impression & Plan Fever ADMIT ED Provider Note HPI: History obtained from nurse via EMS report The patient is a 32-year-old male with history of nontraumatic rupture of cerebral aneurysm in 2022, status post craniotomy at [facility], nonverbal, on trach collar oxygen, currently a resident at [facility], presents to the emergency department with diaphoresis and fever. Per EMS report the patient was febrile at his nursing facility and therefore sent to the ED for further assessment. 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 ROS: - Per HPI Differential Diagnosis: Sepsis, acute bacterial pneumonia, aspiration pneumonia, mucous plugging, urinary tract infection, thyroid storm, autonomic dysfunction, amongst other potential pathologies. *Outpatient medications and allergy history reviewed. *Pertinent external medical records reviewed PE: General: Alert HEENT: Temporal depression to the right side of the cranium status post craniotomy, trach collar is midline without surrounding purulence Eyes: Extraocular eye movement is intact, no scleral erythema Pulmonary: Diminished bilateral breath sounds with coarse breath sounds auscultated at the bilateral bases Cardio: Tachycardic rate with regular rhythm GI: Abdomen is soft to palpation, PEG tube without surrounding erythema or drainage : No suprapubic tenderness, [place] catheter in place MSK: No evidence of trauma or malformation of the extremities, no edema Skin: No evidence of rash, sacral ulcer with moderate surrounding erythema without any active purulent drainage Neuro: Alert, contracted extremities at baseline with history of quadriplegia Psychiatric: N/A INDEPENDENT INTERPRETATIONS: lan administrator: (As interpreted by myself): - An order was placed for continuous cardiac monitoring - Patient was noted to be in sinus tachycardia with a rate of 145 EKG: (As interpreted by myself): Rate: 117 Rhythm: Sinus tachycardia Intervals: Within normal limits ST changes: No ST elevation Time: 1036 Interventions provided in ED: -IV fluid bolus, IV cefepime, IV vancomycin Medical Decision Making: Shortly after the patient arrived respiratory service was paged and the patient received some suctioning at the bedside secondary to coarse bilateral breath sounds that were appreciated by the bedside RN. This did result in improvement in his breath sounds and overall level of comfort per bedside RN. Patient is however tachycardic and diaphoretic appearing, IV was established lab work ordered, patient was placed on qualitative executive researcher. Patient was IV fluid resuscitated with greater than 30 cc/kg of IV fluid over concern for possible sepsis given reported fever and tachycardia. Lab work shows a leukocytosis of 12.38, hemoglobin is stable at 12.9, platelet count is 434, CMP does not show any critical findings, no evidence of acute kidney injury, procalcitonin is low, urinalysis does not show any evidence of infection, viral panel testing is negative. Chest x-ray does not show any evidence of pneumonia. Patient does have a history of autonomic dysfunction and at times has autonomic storm manifesting as tachycardia and diaphoresis. He is on multiple medications for this. His mother later arrived at the bedside and states that he received his medications as prescribed at the nursing facility per their report, she states that his recent admission to 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 Given the patient's tachycardia, reported fever, and leukocytosis, he will be admitted to the hospitalist service following my discussion with Dr. York. Patient received broad-spectrum antibiotics with vancomycin and cefepime, patient's mother at the bedside is in agreement for admission and the patient was placed for admission in improved condition with tachycardia downtrending to 113 on my reassessment. Blood pressure remained stable. Consultants/Discussions held with other healthcare providers: -Hospitalist, Dr. York Disposition discussion held by myself with: -Patient's mother at the bedside, [place]on * CRITICAL CARE TIME: ( 55 ) minutes -Management of patient with complex past medical history and vital signs and lab work concerning for sepsis requiring aggressive IV fluid resuscitation and initiation of broad-spectrum antibiotics, time spent at the bedside, discussion with family, discussion with other healthcare providers and arrangement of admission Diagnosis: 1. Sepsis of unknown origin 2. Fever by history 3. Leukocytosis, acute 4. Diaphoresis 5. Tachycardia, acute Disposition: Admission Joel Holder DO Emergency Medicine Past Med/Surg History Medical History (Updated 05/04/23 @ 15:19 by Joel Holder DO) History of nontraumatic rupture of cerebral aneurysm History of traumatic brain injury Social History Smoking Status: Unknown if ever smoked Second Hand Exposure: No; Do You Dip or Chew Tobacco: No; Hx Alcohol Use: No Hx Substance Use: No Preferred Language: Maltese Communication Ability: Effective Production Quality Manager Required: No Beliefs That Will Affect Care: None Current Living Situation: Prison Feels Safe at Home: Yes Assistive Devices: None Allergies Allergies Allergy/AdvReac Type Severity Reaction Status Date / Time No Known Allergies Allergy Unverified 04/04/23 09:03 Home Meds Home Medications Medication Instructions Recorded Confirmed apixaban 5 mg tablet (Eliquis) 5 mg feeding tube BID 04/02/23 05/04/23 scopolamine base 1 mg over 3 days 1 patch transdermal Q3D 04/02/23 05/04/23 transdermal patch Previous Rx's Medication Instructions Recorded acetaminophen 325 mg/10.15 mL oral 650 mg (20.3 mL) PEG Q6 #250 mL 04/17/23 suspension baclofen 10 mg tablet 20 mg (2 x 10 mg) feeding tube Q6H 04/17/23 #1 tab bromocriptine 2.5 mg tablet 2.5 mg feeding tube Q6 #120 tabs 04/17/23 dantrolene 25 mg capsule 100 mg (4 x 25 mg) PEG Q6 #120 caps 04/17/23 escitalopram oxalate 5 mg/5 mL 5 mg (5 mL) PEG QAM #150 mL 04/17/23 oral solution ferrous sulfate 220 mg (44 mg 325 mg (7.3864 mL) G-tube Q48H 60 04/17/23 iron)/5 mL oral elixir days #221.592 mL gabapentin 250 mg/5 mL oral 400 mg (8 mL) PEG Q6 #250 mL 04/17/23 solution metoprolol tartrate 25 mg tablet 25 mg PEG BID #60 tabs 04/17/23 multivit and minerals-ferrous 15 ml PEG QAM 30 days #450 mL 04/17/23 gluconate 9 mg iron/15 mL oral liquid (Centrum) Results & Data (ED) Vital Signs Vital Signs - 24 hr 05/04/23 10:25 05/04/23 10:40 05/04/23 10:40 Temperature Temperature Source Pulse Rate 97 H 110 H Pulse Rate [Right Finger] Pulse Rhythm Regular Pulse Rhythm [Right Finger] Pulse Strength Pulse Strength [Right Finger] Respiratory Rate 28 H Respiratory Effort / Characteristics Respiratory Depth Respiratory Pattern Blood Pressure Blood Pressure [Left Radial Artery] Blood Pressure Mean Blood Pressure Mean [Left Radial Artery] Blood Pressure Position Blood Pressure Position [Left Radial Artery] Pulse Oximetry 98 Oxygen Delivery Method Trach Collar Trach Collar Oxygen Flow Rate 9 9 Sepsis Recent Fever Within 48 Hours Sepsis New/Unexplained Change in Mental Status Sepsis Action Taken by Nursing 05/04/23 10:45 05/04/23 10:45 05/04/23 11:18 Temperature 37.4 C 37.4 C Temperature Source Oral Oral Pulse Rate 134 H Pulse Rate [Right Finger] 104 H Pulse Rhythm Regular Pulse Rhythm [Right Finger] Regular Pulse Strength Normal Pulse Strength [Right Finger] Normal Respiratory Rate 24 24 Respiratory Effort / Characteristics Non-Labored Spontaneous Respiratory Depth Shallow Shallow Respiratory Pattern Tachypnea Tachypnea Blood Pressure 106/55 L Blood Pressure [Left Radial Artery] 106/55 L Blood Pressure Mean 72 Blood Pressure Mean [Left Radial Artery] 72 Blood Pressure Position Semi-fowlers Blood Pressure Position [Left Radial Artery] Pulse Oximetry 98 98 97 Oxygen Delivery Method Trach Collar Trach Collar Trach Collar Oxygen Flow Rate 9 9 9 Sepsis Recent Fever Within 48 Hours Yes Sepsis New/Unexplained Change in Mental Status No Sepsis Action Taken by Nursing No Action Required 05/04/23 11:18 05/04/23 12:00 05/04/23 14:26 Temperature 37.2 C Temperature Source Oral Pulse Rate 125 H 117 H Pulse Rate [Right Finger] 135 H Pulse Rhythm Regular Pulse Rhythm [Right Finger] Regular Pulse Strength Pulse Strength [Right Finger] Normal Respiratory Rate 24 22 Respiratory Effort / Characteristics Respiratory Depth Shallow Respiratory Pattern Regular Blood Pressure Blood Pressure [Left Radial Artery] 141/97 H Blood Pressure Mean Blood Pressure Mean [Left Radial Artery] 111 Blood Pressure Position Blood Pressure Position [Left Radial Artery] Semi-fowlers Pulse Oximetry 98 98 Oxygen Delivery Method Trach Collar Trach Collar Oxygen Flow Rate 9 9 Sepsis Recent Fever Within 48 Hours Sepsis New/Unexplained Change in Mental Status Sepsis Action Taken by Nursing Laboratory Data 05/04/23 10:40 05/04/23 10:40 Lab Results 05/04/23 05/04/23 05/04/23 Range/Units 10:40 11:50 12:16 WBC 12.38 H (4.8-10.8) K/ul RBC 4.12 L (4.70-6.10) M/uL Hgb 12.9 L (14.0-18.0) g/dl Hct 38.6 L (42.0-52.0) % MCV 93.7 (80.0-100.0) fL MCH 31.3 (25.0-34.0) pg MCHC 33.4 (32.0-36.0) g/dL RDW Std Deviation 49.2 H (36.4-46.3) fL RDW Coeff of Dario 14.4 (11.5-14.5) % Plt Count 434 H (130-400) K/uL MPV 12.0 (9.4-12.4) fL Immature Gran % (Auto) 0.2 % Neut % (Auto) 74.5 % Lymph % (Auto) 17.6 % [place] % (Auto) 6.2 % Eos % (Auto) 0.8 % Baso % (Auto) 0.7 % Neut # (Auto) 9.21 H (1.40-6.50) K/uL Lymph # (Auto) 2.18 (1.20-3.40) K/uL [place] # (Auto) 0.77 H (0.11-0.59) K/uL Eos # (Auto) 0.10 (0.00-0.50) K/uL Baso # (Auto) 0.09 (0.00-0.20) K/uL Immature Gran # (Auto) 0.03 (0.01-0.20) K/uL PT 11.7 (9.0-12.0) Seconds INR 1.1 (0.9-1.1) APTT 28.4 (21.0-31.0) Seconds PTT Ratio 1.0 Sodium 135 L (136-145) mmol/L Potassium 4.3 (3.5-5.1) mmol/L Chloride 98 (98-107) mmol/L Carbon Dioxide 28 (21-32) mmol/L Anion Gap 9 (3-11) BUN 18 (6-23) mg/dl Creatinine 0.69 (0.6-1.4) mg/dl Est Cr Clr Drug Dosing 107.4 ml/min Est GFR ( Amer) 145.6 ml/min Est GFR (Non-Af Amer) 125.6 ml/min BUN/Creatinine Ratio 26.1 H (10-20) Glucose 87 (70-99(Fasting)) mg/dl Lactate 2.0 (0.4-2.0) mmol/L Calcium 10.9 H (8.6-10.3) mg/dl Magnesium 1.9 (1.7-2.4) mg/dl Total Bilirubin 0.6 (0.2-1.0) mg/dl AST 22 (13-39) U/L ALT 18 (7-52) U/L Alkaline Phosphatase 77 (34-104) U/L Troponin I High Sens 4.9 (0-20) pg/ml Total Protein 8.5 H (6.0-8.3) gm/dl Albumin 4.9 (3.4-5.0) gm/dl Globulin 3.6 (2.5-4.0) gm/dl Albumin/Globulin Ratio 1.4 (0.9-2) Procalcitonin < 0.05 (0-0.5) ng/ml Urine Color Urine Appearance (Clear) Urine pH (4.5-7.5) Ur Specific [place] (1.000-1.030) Urine Protein (Negative) Urine Glucose (UA) (Negative) Urine Ketones (Negative) Urine Blood (Negative) Urine Nitrite (Negative) Urine Bilirubin (Negative) Urine Urobilinogen (Negative) Ur Leukocyte Esterase (Negative) Adenovirus (PCR) Not Detected (NotDetected) B. pertussis DNA (PCR) Not Detected (NotDetected) B.parapertussis DNA PCR Not Detected (NotDetected) C. pneumoniae DNA (PCR) Not Detected (NotDetected) Coronavirus OC43 (PCR) Not Detected (NotDetected) Coronavirus HKU1 (PCR) Not Detected (NotDetected) Coronavirus 229E (PCR) Not Detected (NotDetected) SARS-CoV-2 (PCR) Not Detected (NotDetected) Coronavirus NL63 (PCR) Not Detected (NotDetected) Human Metapneumovir PCR Not Detected (NotDetected) Influenza Type A (PCR) Not Detected (NotDetected) Influenza Type B (PCR) Not Detected (NotDetected) M. pneumoniae (PCR) Not Detected (NotDetected) Parainfluenza 1 (PCR) Not Detected (NotDetected) Parainfluenza 2 (PCR) Not Detected (NotDetected) Parainfluenza 3 (PCR) Not Detected (NotDetected) Parainfluenza 4 (PCR) Not Detected (NotDetected) RSV (PCR) Not Detected (NotDetected) Entero/Rhino (PCR) Not Detected (NotDetected) 05/04/23 Range/Units 13:36 WBC (4.8-10.8) K/ul RBC (4.70-6.10) M/uL Hgb (14.0-18.0) g/dl Hct (42.0-52.0) % MCV (80.0-100.0) fL MCH (25.0-34.0) pg MCHC (32.0-36.0) g/dL RDW Std Deviation (36.4-46.3) fL RDW Coeff of Dario (11.5-14.5) % Plt Count (130-400) K/uL MPV (9.4-12.4) fL Immature Gran % (Auto) % Neut % (Auto) % Lymph % (Auto) % [place] % (Auto) % Eos % (Auto) % Baso % (Auto) % Neut # (Auto) (1.40-6.50) K/uL Lymph # (Auto) (1.20-3.40) K/uL [place] # (Auto) (0.11-0.59) K/uL Eos # (Auto) (0.00-0.50) K/uL Baso # (Auto) (0.00-0.20) K/uL Immature Gran # (Auto) (0.01-0.20) K/uL PT (9.0-12.0) Seconds INR (0.9-1.1) APTT (21.0-31.0) Seconds PTT Ratio Sodium (136-145) mmol/L Potassium (3.5-5.1) mmol/L Chloride (98-107) mmol/L Carbon Dioxide (21-32) mmol/L Anion Gap (3-11) BUN (6-23) mg/dl Creatinine (0.6-1.4) mg/dl Est Cr Clr Drug Dosing ml/min Est GFR ( Amer) ml/min Est GFR (Non-Af Amer) ml/min BUN/Creatinine Ratio (10-20) Glucose (70-99(Fasting)) mg/dl Lactate (0.4-2.0) mmol/L Calcium (8.6-10.3) mg/dl Magnesium (1.7-2.4) mg/dl Total Bilirubin (0.2-1.0) mg/dl AST (13-39) U/L ALT (7-52) U/L Alkaline Phosphatase (34-104) U/L Troponin I High Sens (0-20) pg/ml Total Protein (6.0-8.3) gm/dl Albumin (3.4-5.0) gm/dl Globulin (2.5-4.0) gm/dl Albumin/Globulin Ratio (0.9-2) Procalcitonin (0-0.5) ng/ml Urine Color Dark Yellow Urine Appearance Clear (Clear) Urine pH 7.0 (4.5-7.5) Ur Specific [place] 1.013 (1.000-1.030) Urine Protein Negative (Negative) Urine Glucose (UA) Negative (Negative) Urine Ketones Negative (Negative) Urine Blood Negative (Negative) Urine Nitrite Negative (Negative) Urine Bilirubin Negative (Negative) Urine Urobilinogen Negative (Negative) Ur Leukocyte Esterase Negative (Negative) Adenovirus (PCR) (NotDetected) B. pertussis DNA (PCR) (NotDetected) B.parapertussis DNA PCR (NotDetected) C. pneumoniae DNA (PCR) (NotDetected) Coronavirus OC43 (PCR) (NotDetected) Coronavirus HKU1 (PCR) (NotDetected) Coronavirus 229E (PCR) (NotDetected) SARS-CoV-2 (PCR) (NotDetected) Coronavirus NL63 (PCR) (NotDetected) Human Metapneumovir PCR (NotDetected) Influenza Type A (PCR) (NotDetected) Influenza Type B (PCR) (NotDetected) M. pneumoniae (PCR) (NotDetected) Parainfluenza 1 (PCR) (NotDetected) Parainfluenza 2 (PCR) (NotDetected) Parainfluenza 3 (PCR) (NotDetected) Parainfluenza 4 (PCR) (NotDetected) RSV (PCR) (NotDetected) Entero/Rhino (PCR) (NotDetected) Administered Medications Discontinued Medications Sodium Chloride (Nss) 1,000 mls @ 999 mls/hr IV .Q1H1M ONE Stop: 05/04/23 12:23 Last Infusion: 05/04/23 12:49 Dose: Infused Documented By: Admin: 05/04/23 11:30 Dose: 999 mls/hr Documented By: SEVERINOW Sodium Chloride (Nss) 1,000 mls @ 999 mls/hr IV .Q1H1M ONE Stop: 05/04/23 12:26 Last Admin: 05/04/23 12:45 Dose: 999 mls/hr Documented By: SEVERINOW Vancomycin HCl 1,000 mg/ (Sodium Chloride) 520 mls @ 200 mls/hr IV NOW ONE Stop: 05/04/23 14:02 Last Admin: 05/04/23 12:45 Dose: 200 mls/hr Documented By: SEVERINOW Cefepime HCl (Maxipime) 2,000 mg in 20 mls @ 5 mls/min IV NOW STA; Protocol Stop: 05/04/23 11:30 Last Admin: 05/04/23 11:37 Dose: 5 mls/min Documented By: SEVERINOW Imaging Data Radiologist's Impression: Chest X-Ray 05/04/23 11:14 XR chest 1V portable HISTORY: Sepsis COMPARISON: Chest 04/19/2023. FINDINGS: Low lung volumes. A visualized left-sided shunt catheter appears intact. Tracheostomy tube is in good position. No focal lung consolidations to suggest pneumonia. No evidence for pulmonary edema. The heart is normal in size. IMPRESSION: 1. No focal lung consolidations to suggest a pneumonia. 2. Satisfactory support line placement. ACT 112: Negative or not required by law. Electronically signed by: Víctor Cox M.D. 05/04/2023 12:58 PM Discharge Plan Visit Data Chief Complaint: Fever Stated Complaint: FEVER, DRAINAGE FROM FEEDING TUBE ED Provider: Joel Holder Discharge Problem: Fever Forms Stand Alone Forms: [facility] Prescriptions Prescriptions: No Action scopolamine base 1 mg over 3 days Patch 3 Day 1 patch TRANSDERMAL Q3D Eliquis 5 mg Tablet 5 mg feeding tube BID dantrolene 25 mg Capsule 100 mg PEG Q6 Qty: 120 11RF gabapentin 250 mg/5 mL Solution 400 mg PEG Q6 Qty: 250 11RF bromocriptine 2.5 mg Tablet 2.5 mg feeding tube Q6 Qty: 120 11RF escitalopram oxalate 5 mg/5 mL Solution 5 mg PEG QAM Qty: 150 11RF metoprolol tartrate 25 mg Tablet 25 mg PEG BID Qty: 60 11RF acetaminophen 325 mg/10.15 mL Suspension 650 mg PEG Q6 Qty: 250 0RF Centrum 9 mg iron/15 mL Liquid 15 ml PEG QAM 30 Days Qty: 450 11RF ferrous sulfate 220 mg (44 mg iron)/5 mL Elixir 325 mg G-tube Q48H 60 Days Qty: 221.592 0RF baclofen 10 mg Tablet 20 mg feeding tube Q6H Qty: 1 0RF Referrals Referrals: Edgardo Pruett [Primary Care Provider] -
[2023-05-04 11:32] LABS: Basophils # (auto) 0.09 K/uL (0.00-0.20); Basophils % (auto) 0.7 %; Eosinophils % (auto) 0.8 %; Hematocrit (blood only) 38.6 % (42.0-52.0); Hemoglobin 12.9 g/dl (14.0-18.0); Immature Granulocytes # (auto) 0.03 K/uL (0.01-0.20); Immature Granulocytes % (auto) 0.2 %; Lymphocytes # (auto) 2.18 K/uL (1.20-3.40); Lymphocytes % (auto) 17.6 %; Mean Corpuscular Hemoglobin 31.3 pg (25.0-34.0); Mean Corpuscular Hgb Conc 33.4 g/dL (32.0-36.0); Mean Corpuscular Volume 93.7 fL (80.0-100.0); Monocytes # (auto) 0.77 K/uL (0.11-0.59); Monocytes % (auto) 6.2 %; Neutrophils # (auto) 9.21 K/uL (1.40-6.50); Neutrophils % (auto) 74.5 %; Platelet Count 434 K/uL (130-400); RDW Coefficient of Variation 14.4 % (11.5-14.5); RDW Standard Deviation 49.2 fL (36.4-46.3); Red Blood Count 4.12 M/uL (4.70-6.10); White Blood Count 12.38 K/ul (4.8-10.8)
[2023-05-04 11:39] LABS: Alanine Aminotransferase 18 U/L (7-52); Albumin Globulin Ratio 1.4 (0.9-2); Albumin Level 4.9 gm/dl (3.4-5.0); Alkaline Phosphatase 77 U/L (34-104); Anion Gap 9 (3-11); Aspartate Aminotransferase 22 U/L (13-39); BUN Creatinine Ratio 26.1 (10-20); Bilirubin,Total 0.6 mg/dl (0.2-1.0); Blood Urea Nitrogen 18 mg/dl (6-23); Calcium 10.9 mg/dl (8.6-10.3); Carbon Dioxide 28 mmol/L (21-32); Chloride 98 mmol/L (98-107); Creatinine Clr Calc Pharmacy 107.4 ml/min; Est GFR (African American) 145.6 ml/min; Est GFR (Non-African American) 125.6 ml/min; Globulin 3.6 gm/dl (2.5-4.0); Glucose 87 mg/dl (70-99(Fasting)); Magnesium 1.9 mg/dl (1.7-2.4); Potassium 4.3 mmol/L (3.5-5.1); Sodium 135 mmol/L (136-145); Total Protein 8.5 gm/dl (6.0-8.3)
[2023-05-04 11:45] LABS: Troponin I High Sensitivity 4.9 pg/ml (0-20)
[2023-05-04 12:03] LABS: INR 1.1 (0.9-1.1); Partial Thromboplastin Time 28.4 Seconds (21.0-31.0); Prothrombin Time 11.7 Seconds (9.0-12.0)
[2023-05-04 12:50] LABS: Adenovirus PCR Not Detected (NotDetected); Bordetella parapertussis PCR Not Detected (NotDetected); Bordetella pertussis PCR Not Detected (NotDetected); Chlamydia pneumoniae PCR Not Detected (NotDetected); Coronavirus 229E PCR Not Detected (NotDetected); Coronavirus CoV-2 (COVID19)PCR Not Detected (NotDetected); Coronavirus HKU1 PCR Not Detected (NotDetected); Coronavirus NL63 PCR Not Detected (NotDetected); Coronavirus OC43PCR Not Detected (NotDetected); Human Metapneumovirus PCR Not Detected (NotDetected); Influenza A PCR Not Detected (NotDetected); Influenza B PCR Not Detected (NotDetected); Mycoplasma pneumoniae PCR Not Detected (NotDetected); Parainfluenza Virus 1 PCR Not Detected (NotDetected); Parainfluenza Virus 2 PCR Not Detected (NotDetected); Parainfluenza Virus 3 PCR Not Detected (NotDetected); Parainfluenza Virus 4 PCR Not Detected (NotDetected); Respiratory Syncytial VirusPCR Not Detected (NotDetected); Rhinovirus/Enterovirus PCR Not Detected (NotDetected)
--- NOTE | 2023-05-04 12:59 | XRay Report ---
XR chest 1V portable HISTORY: Sepsis COMPARISON: Chest 04/19/2023. FINDINGS: Low lung volumes. A visualized left-sided shunt catheter appears intact. Tracheostomy tube is in good position. No focal lung consolidations to suggest pneumonia. No evidence for pulmonary florecita ma. The heart is normal in size. IMPRESSION: 1. No focal lung consolidations to suggest a pneumonia. 2. Satisfactory support line placement. ACT 112: Negative or not required by law. Electronically signed by: Víctor Cox M.D. 05/04/2023 12:58 PM
--- NOTE | 2023-05-04 13:37 | History & Physical Report ---
Date of Service May 04, 2023 Assessment & Plan (1) Diaphoresis: Plan: Diaphoresis, tachycardia - Increased trach collar O2 req 4-5L --> ~9L CXR is without acute findings - IVFM 125cc/hr continued, s/p 2L NSS with improvement Left-sided catheter with satisfactory placement Lactate is normal, no hypotension, no evidence of end organ dysfunction. severe sepsis is not present. Leukocytosis of 12.38 with neutrophilic predominance Patient missed medications due to his PEG being clogged on Friday, 2 days ago and has similar reactions previously due to this; infection is not excluded. He has improved following fluids and empiric antibiotics. He is tachycardic with a mild white count, improving following fluids. Afebrile. Chest x-ray without acute findings. Procalcitonin is normal Scheduled all normal meds every 6 hours with next dose due at 3 PM. Cover for least 24 hours with empiric antibiotics, vancomycin/cefepime due to history of [employer]/Pseudomonas Follow blood cultures, pending. Patient was seen at [facility] for possible EMPLOYEE RELATIONS DIRECTOR shunt infection with blood cultures positive for [employer] on 04/08, 04/20, 04/22. Per [facility] had extensive imaging and eval, negative cultures, and was d/c; not suspected to have a residual shunt infection. Suspected his acute presentation at last admission was most likely due to meds being held/missed for several days with known sympathetic hyperactivity. No clear source of infection at time of admission, and he is afebrile. We will treat empirically and follow fever curve/labs Sacrum photo attached in H&P PE, appears unchanged without purulence, discharge, or demarcated erythema suggestive of active cellulitis. No vegetations noted on prior echos. JASKARAN/complete dc summary from [facility] pending (2) History of traumatic brain injury: Plan: History of nontraumatic rupture of cerebral aneurysm: Ruptured intracranial aneurysm beginning of 2022, with craniotomy and hematoma evacuation at [facility], s/p skull plate replantation Nonverbal, does not follow commands. PEG tube in place since August 2022 which has clogged frequently, although generally able to be well maintained during hospitalizations Guardian/surrogate decision makers patient's mother Sharlene who reaffirms full code, and he would want and she wants any and all available medical interventions to sustain and extend his life Continue bromocryptine 2.5 mg every 6 hours, dantrolene 100 mg every 6 hours, gabapentin 400 mg every 6 hours, baclofen 20mg q6h Autonomic dysfunction: Presents as severe tachycardia, fever, sweating, and rigidity with paroxysmal sympathetic hyperactivity and dysregulation in the past -Patient w/ hx of febrile and tachycardic decompensation when his medications were missed in the past, did not receive bromocriptine/dantrolene/gabapentin while PEG tube was clogged. These were given at approximately 1130am in ER 04/19 and scheduled. Suspect severe autonomic dysfunction with paroxysmal sympathetic storm which patient has had previous hospitalizations and when medications have been missed. Amitriptyline/dantrolene/gabapentin/baclofen/morphine as noted (3) Respiratory failure: Plan: - Management as noted. Trach collar in place. Clinically improving. 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 No change in goals of care since last discussion History of Present Illness [facility] 32-year-[facility] male With a past medical history of chronic trach, PEG tube, nonverbal status following ruptured brain aneurysm and subsequent craniotomy/hematoma evacuation at [facility] with stabilization and skull plate replantation 11/2022. He has a [facility] resident, intermittent PEG tube exchanges due to clogging. Recent admissions / + 04/19/2310/ for sepsis. Patient has had rapid decompensation if he does not receive his home medications including amitriptyline/dantrolene/gabapentin/baclofen/morphine for autonomic dysfunction. 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 He was discharged on 04/23/2023 to follow-up with Dr. 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 Reviewed course of illness and documentation from that visit. Neurosurgery did note that there is a small layer near EMPLOYEE RELATIONS DIRECTOR shunt in the subdural space and that this would be unusual and atypical for coag negative staph however additional evaluation including MRI and shunt tap were performed. As MRI did not show empyema no aspiration was required. Discussed with [facility] and patient's mother. They note that he missed a round of medications on Friday and this morning seemed more sweaty and tachycardic than he had previously. Last had meds at 930: Gabapentin, baclofen, dantrolene, bromocriptine were all given in addition to his other AM meds including eliquis, lexapro, MTP tartrate 25. Per his mother Sharlene who is at the bedside he looks markedly improved although still slightly more tachycardic than normal at the bedside. No other known injuries, no bleeding or trauma, no urinary change to her knowledge. Sacral ulcer is being addressed and rotated at [facility], no infection or change has been appreciated Allergies Allergy/AdvReac Type Severity Reaction Status Date / Time No Known Allergies Allergy Unverified 04/04/23 09:03 Home Medications Medication Instructions Recorded Confirmed Type apixaban 5 mg tablet (Eliquis) 5 mg feeding tube BID 04/02/23 05/04/23 History scopolamine base 1 mg over 3 days 1 patch transdermal Q3D 04/02/23 05/04/23 History transdermal patch acetaminophen 325 mg/10.15 mL oral 650 mg (20.3 mL) PEG Q6 #250 mL 04/17/23 05/04/23 Rx suspension baclofen 10 mg tablet 20 mg (2 x 10 mg) feeding tube Q6H 04/17/23 05/04/23 Rx #1 tab bromocriptine 2.5 mg tablet 2.5 mg feeding tube Q6 #120 tabs 04/17/23 05/04/23 Rx dantrolene 25 mg capsule 100 mg (4 x 25 mg) PEG Q6 #120 caps 04/17/23 05/04/23 Rx escitalopram oxalate 5 mg/5 mL 5 mg (5 mL) PEG QAM #150 mL 04/17/23 05/04/23 Rx oral solution ferrous sulfate 220 mg (44 mg 325 mg (7.3864 mL) G-tube Q48H 60 04/17/23 05/04/23 Rx iron)/5 mL oral elixir days #221.592 mL gabapentin 250 mg/5 mL oral 400 mg (8 mL) PEG Q6 #250 mL 04/17/23 05/04/23 Rx solution metoprolol tartrate 25 mg tablet 25 mg PEG BID #60 tabs 04/17/23 05/04/23 Rx multivit and minerals-ferrous 15 ml PEG QAM 30 days #450 mL 04/17/23 05/04/23 Rx gluconate 9 mg iron/15 mL oral liquid (Centrum) Past Med/Surg History Medical History (Updated 05/04/23 @ 14:49 by Gael York MD) History of nontraumatic rupture of cerebral aneurysm History of traumatic brain injury Social History Smoking Status: Unknown if ever smoked Second Hand Exposure: No; Do You Dip or Chew Tobacco: No; Hx Alcohol Use: No Hx Substance Use: No Preferred Language: Chinese Communication Ability: Effective Procurement Professional Logistics Required: No Beliefs That Will Affect Care: None Current Living Situation: Residential Feels Safe at Home: Yes Assistive Devices: None Physical Exam 2 Physical Exam: General: Nonverbal. Opens eyes intermittently spontaneously HEENT: Right skull deformity, well-healed. Pupils equal and reactive to light Pulm: Initially coarse, improves with suction. No wheezes/rales .symmetrical chest rise. No increased work of breathing. No respiratory distress. Cardiac: Regular, tachycardic. Radial pulses intact and symmetrical. Abdominal: Nontender, nondistended, soft. BS present. Extremities: Remains with flexor contractions of the upper extremities and remains in flexed posture. Strength/sensation limited by cognitive status. Sacral wound below Results & Data Results & Data Vital Signs (Past 12 Hours) Vital Signs Temp Pulse Pulse Resp BP BP Pulse Ox 05/04/23 12:00 37.2 C 135 H 22 141/97 H 98 05/04/23 11:18 125 H 24 98 05/04/23 11:18 97 05/04/23 10:45 37.4 C 104 H 24 106/55 L 98 05/04/23 10:45 37.4 C 134 H 24 106/55 L 98 05/04/23 10:40 110 H 28 H 98 05/04/23 10:40 05/04/23 10:25 97 H O2 Del Method O2 Flow Rate 05/04/23 12:00 Trach Collar 9 05/04/23 11:18 Trach Collar 9 05/04/23 11:18 Trach Collar 9 05/04/23 10:45 Trach Collar 9 05/04/23 10:45 Trach Collar 9 05/04/23 10:40 Trach Collar 9 05/04/23 10:40 Trach Collar 9 05/04/23 10:25 PG Care Time/CCT Total # of Minutes Spent Total Time Spent with Patient: Total time spent is greater than 50% in coordination of care (as documented) at patient's floor/unit and/or counseling patient: Coding Level of Care Code 95846 INT INP/OBS CARE 3/75MIN Diagnoses Diaphoresis R61 History of traumatic brain injury Z87.820 Respiratory failure J96.90 S/P EMPLOYEE RELATIONS DIRECTOR shunt Z98.2 Moderate protein-calorie malnutrition E44.0 History of DVT (deep vein thrombosis) Z86.718
[2023-05-04 13:58] LABS: Appearance Urine Clear (Clear); Bilirubin Urine Negative (Negative); Blood Urine Negative (Negative); Color Urine Dark Yellow; Glucose Urine UA Negative (Negative); Ketones Urine Negative (Negative); Leukocyte Esterase Urine Negative (Negative); Nitrite Urine Negative (Negative); Protein Urine Negative (Negative); Specific Gravity Urine 1.013 (1.000-1.030); Urobilinogen Urine Negative (Negative)
[2023-05-04] MEDS ORDERED: SCOPOLAMINE 1 MG TDSY TD SCH (14:00)
[2023-05-04] MEDS ORDERED: BROMOCRIPTINE MESYLATE 2.5 MG TAB PO SCH (15:00)
[2023-05-04] MEDS ORDERED: DANTROLENE SODIUM 25 MG CAP PEG SCH (15:00)
[2023-05-04] MEDS ORDERED: GABAPENTIN 150 MG/3 ML UDP PO SCH (15:00)
[2023-05-04] MEDS: SCOPOLAMINE 1 MG TDSY TD SCH (15:16)
[2023-05-04] MEDS: GABAPENTIN 250 MG/5 ML 470 ML BTL PO SCH ×2 (15:16→21:38)
[2023-05-04] MEDS: BACLOFEN 20 MG TAB PEG SCH ×2 (15:16→21:39)
[2023-05-04] MEDS: BROMOCRIPTINE MESYLATE 2.5 MG TAB PO SCH ×2 (15:17→21:39)
[2023-05-04] MEDS: DANTROLENE SODIUM 25 MG CAP PEG SCH ×2 (15:17→21:38)
--- NOTE | 2023-05-04 15:36 | Pharmacy Report ---
Pharmacy PK ABX Note - Date of Service May 04, 2023 - Assessment and Plan Assessment * 32 year old M w hx ruptured intracranial aneurysm in 2022 w craniotomy, skull plate, and now non-verbal with autonomic dysregulation. * Currently receiving cefepime and vancomycin empirically. * Prior vancomycin was therapeutic at 1000 mg IV q8h. However, while SCr is low for most patients, the 0.69 is significantly elevated for this patient compared to baseline of 0.24, suggesting possible renal dysfunction. Therefore will dose less aggressively than prior and obtain an early level. Plan Vancomycin * Loading dose: 1000 mg IV x 1 * Maintenance dose: 750 mg IV every 8 hours * Trough level ordered for: 05/05 @ 0330 Pharmacy will continue to follow and will adjust dose/frequency as necessary. Thank you. Pharmacy has transitioned to AUC monitoring for vancomycin. AUC/BASHIR is the preferred PK/PD target and is associated with decreased risk of nephrotoxicity compared to traditional trough targets.
[2023-05-04 15:47] LABS: C Reactive Protein < 0.50 mg/dl (0-0.5)
[2023-05-04] MEDS: PLASMA-LYTE A 1,000 ML IV SCH (16:25)
[2023-05-04] MEDS: ACETAMINOPHEN SUSP 325 MG/10.15 ML UDC PEG SCH ×2 (19:39→23:54)
[2023-05-04] MEDS ORDERED: VANCOMYCIN HCL 750 MG in SODIUM CHLORIDE 0.9% 500 ML IV SCH (20:00)
[2023-05-04] MEDS ORDERED: VANCOMYCIN HCL 1,000 MG in SODIUM CHLORIDE 0.9% 250 ML IV SCH (20:00)
[2023-05-04] MEDS: CEFEPIME 2,000 MG in SYRINGE 0 ML IV SCH (20:57)
[2023-05-04] MEDS: VANCOMYCIN HCL 750 MG in SODIUM CHLORIDE 0.9% 250 ML IV SCH (21:06)
[2023-05-04] MEDS: APIXABAN 5 MG TABLET PO SCH (21:41)
[2023-05-04] MEDS: METOPROLOL TARTRATE 25 MG TAB PEG SCH (21:41)
[2023-05-05] MEDS: PLASMA-LYTE A 1,000 ML IV SCH ×2 (02:32→12:21)
[2023-05-05] MEDS: BACLOFEN 20 MG TAB PEG SCH ×4 (02:33→20:17)
[2023-05-05] MEDS: DANTROLENE SODIUM 25 MG CAP PEG SCH ×4 (02:34→20:16)
[2023-05-05] MEDS: BROMOCRIPTINE MESYLATE 2.5 MG TAB PO SCH ×4 (02:35→20:16)
[2023-05-05] MEDS: GABAPENTIN 250 MG/5 ML 470 ML BTL PO SCH ×4 (02:37→21:37)
[2023-05-05] MEDS ORDERED: VANCOMYCIN LEVEL ONE ×2 (03:30→11:30)
[2023-05-05 04:06] LABS: Basophils # (auto) 0.07 K/uL (0.00-0.20); Basophils % (auto) 0.8 %; Eosinophils # (auto) 0.08 K/uL (0.00-0.50); Eosinophils % (auto) 0.9 %; Hematocrit (blood only) 31.9 % (42.0-52.0); Hemoglobin 10.6 g/dl (14.0-18.0); Immature Granulocytes # (auto) 0.02 K/uL (0.01-0.20); Immature Granulocytes % (auto) 0.2 %; Lymphocytes % (auto) 21.6 %; Mean Corpuscular Hemoglobin 31.2 pg (25.0-34.0); Mean Corpuscular Hgb Conc 33.2 g/dL (32.0-36.0); Mean Corpuscular Volume 93.8 fL (80.0-100.0); Mean Platelet Volume 11.8 fL (9.4-12.4); Monocytes # (auto) 0.72 K/uL (0.11-0.59); Monocytes % (auto) 7.8 %; Neutrophils # (auto) 6.35 K/uL (1.40-6.50); Neutrophils % (auto) 68.7 %; Platelet Count 331 K/uL (130-400); RDW Coefficient of Variation 14.4 % (11.5-14.5); RDW Standard Deviation 48.7 fL (36.4-46.3); White Blood Count 9.24 K/ul (4.8-10.8)
[2023-05-05 04:09] LABS: Anion Gap 11 (3-11); BUN Creatinine Ratio 30.6 (10-20); Blood Urea Nitrogen 15 mg/dl (6-23); Calcium 9.3 mg/dl (8.6-10.3); Carbon Dioxide 25 mmol/L (21-32); Chloride 104 mmol/L (98-107); Creatinine Clr Calc Pharmacy 151.8 ml/min; Est GFR (African American) > 150.0 ml/min; Est GFR (Non-African American) 144.6 ml/min; Glucose 87 mg/dl (70-99(Fasting)); Potassium 3.8 mmol/L (3.5-5.1); Sodium 140 mmol/L (136-145)
[2023-05-05] MEDS: CEFEPIME 2,000 MG in SYRINGE 0 ML IV SCH ×3 (04:14→20:15)
[2023-05-05] MEDS: VANCOMYCIN HCL 750 MG in SODIUM CHLORIDE 0.9% 250 ML IV SCH (04:15)
[2023-05-05] MEDS: ACETAMINOPHEN SUSP 325 MG/10.15 ML UDC PEG SCH ×4 (05:47→23:56)
--- NOTE | 2023-05-05 06:16 | Electrocardiogram Report ---
Test Reason : Blood Pressure : / mmHG Vent. Rate : 117 BPM Atrial Rate : 117 BPM P-R Int : 104 ms QRS Dur : 086 ms QT Int : 318 ms P-R-T Axes : 056 -12 035 degrees QTc Int : 443 ms Poor data quality, interpretation may be adversely affected Sinus tachycardia with short SD Borderline ECG When compared with ECG of 19-APR-2023 14:47, No significant change was found Confirmed by Miah Schafer ([id number]) on 05/05/2023 6:16:07 AM Referred By: Confirmed By:Miah Schafer
[2023-05-05] MEDS: ESCITALOPRAM OXALATE ORAL SOLN 5 MG/5 ML UDP PEG SCH (08:47)
[2023-05-05] MEDS: METOPROLOL TARTRATE 25 MG TAB PEG SCH ×2 (08:49→20:17)
[2023-05-05] MEDS: APIXABAN 5 MG TABLET PO SCH ×2 (08:49→20:17)
--- NOTE | 2023-05-05 11:24 | Pharmacy Report ---
Pharmacy PK ABX Note - Date of Service May 05, 2023 - Assessment and Plan Assessment 05/05 * Random level this AM 13.3. This is predicting below target AUC/BASHIR at steady state. SCr has improved toward baseline. Will adjust back to previously therapeutic dose of 1000 mg IV q8H. * Blood cultures pending, leukocytosis improving 05/04 * 32 year old M w hx ruptured intracranial aneurysm in 2022 w craniotomy, skull plate, and now non-verbal with autonomic dysregulation. * Currently receiving cefepime and vancomycin empirically. * Prior vancomycin was therapeutic at 1000 mg IV q8h. However, while SCr is low for most patients, the 0.69 is significantly elevated for this patient compared to baseline of 0.24, suggesting possible renal dysfunction. Therefore will dose less aggressively than prior and obtain an early level. Plan * 05/05: * Adjust maintenance dose to 1000 mg IV every 8 hours * Trough tomorrow morning @0330 05/04 Vancomycin * Loading dose: 1000 mg IV x 1 * Maintenance dose: 750 mg IV every 8 hours * Trough level ordered for: 05/05 @ 0330 Pharmacy will continue to follow and will adjust dose/frequency as necessary. Thank you. Pharmacy has transitioned to AUC monitoring for vancomycin. AUC/BASHIR is the p referred PK/PD target and is associated with decreased risk of nephrotoxicity compared to traditional trough targets.
[2023-05-05] MEDS: VANCOMYCIN HCL 1,000 MG in SODIUM CHLORIDE 0.9% 250 ML IV SCH ×2 (12:19→20:15)
[2023-05-05] MEDS: SODIUM CHLORIDE 0.9% 1,000 ML IV SCH (15:01)
[2023-05-05] MEDS: TUBE FEEDING WATER FLUSH PEG SCH ×3 (15:02→21:37)
[2023-05-05] MEDS: PEPTAMEN 1.5 CAL 1,000 ML BAG PEG SCH (15:14)
--- NOTE | 2023-05-05 15:37 | Hospitalist Progress Note ---
Date of Service May 05, 2023 Assessment & Plan (1) PEG tube malfunction: Plan: Occurred at his [facility] residence. This has been corrected. Tube feeds have been restarted. 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 However, sepsis needs to be ruled out. He is currently on intravenous cefepime and vancomycin, day 2. Blood cultures obtained on admission, May 04, remain negative to date. No pneumonia infiltrate seen on chest x-ray (3) History of traumatic brain injury: Plan: Ruptured intracranial aneurysm beginning of 2022, with craniotomy and hematoma evacuation at [facility], s/p skull plate replantation . Supportive care (4) Respiratory failure: Plan: This appears to be chronic. Supplemental oxygen as needed per trach collar (5) S/P CREAM CHEESE MAKER shunt: Plan: Stable. No intervention necessary at this time (6) Moderate protein-calorie malnutrition: Plan: Stable. Continue tube feedings. Nutrition consult (7) History of DVT (deep vein thrombosis): Plan: DOAC continued Plan Hopeful return to the [facility] soon. Possibly tomorrow, May 06 Admission and Anticipated Discharge Date Admission Date: May 04, 2023 Subjective Awake but nonverbal. This is his usual state now after recent cerebral hemorrhage from bleeding aneurysm. He is status post craniotomy and has a permanent tracheostomy, CREAM CHEESE MAKER shunt, and PEG tube placement. The PEG tube was occluded at [facility] but has since been opened and is now functional. Tube feeds have been restarted. IV fluids have been tapered down. He remains on cefepime and vancomycin for now. Blood cultures obtained on admission, May 04, remain negative. Review of Systems 2 Review of Systems: The patient is unable to answer any questions regarding review of systems Physical Exam 2 Physical Exam: General-awake but nonverbal. No apparent distress. No fever HEENT-head atraumatic and normocephalic, pupils equal and reactive to light, extraocular muscles intact Neck-no lymphadenopathy or thyromegaly, trachea midline Chest-scattered bilateral rhonchi. No wheezing i Cardiac-regular rate and rhythm, normal S1 and S2 Abdomen-normal bowel sounds, PEG tube site unremarkable , no hepatosplenomegaly Extremities-upper extremity contractures. Mild peripheral edema both feet from bed ridden state Neuro-status post cerebral hemorrhage with surgical intervention with no purposeful movements and upper extremity contractures Psych-cannot assess Results & Data Results & Data Vital Signs (Past 12 Hours) Vital Signs Temp Pulse Resp BP Pulse Ox O2 Del Method O2 Flow Rate 05/05/23 12:05 36.8 C 86 18 104/61 92 Trach Collar 6 05/05/23 08:12 37.1 C 93 H 18 123/73 92 Trach Collar 6 05/05/23 07:06 Trach Collar 6 05/05/23 05:47 37.3 C Laboratory Results 05/05/23 03:18 05/05/23 03:18 PG Care Time/CCT Total # of Minutes Spent Total Time Spent with Patient: Total time spent is greater than 50% in coordination of care (as documented) at patient's floor/unit and/or counseling patient: Coding Level of Care Code 43601 SUB INP/OBS CARE 3/50MIN Diagnoses PEG tube malfunction K94.23 Diaphoresis R61 History of traumatic brain injury Z87.820 Respiratory failure J96.90 S/P CREAM CHEESE MAKER shunt Z98.2 Moderate protein-calorie malnutrition E44.0 History of DVT (deep vein thrombosis) Z86.718
[2023-05-06] MEDS: TUBE FEEDING WATER FLUSH PEG SCH ×6 (01:20→21:20)
[2023-05-06] MEDS ORDERED: VANCOMYCIN LEVEL ONE (03:30)
[2023-05-06] MEDS: SODIUM CHLORIDE 0.9% 1,000 ML IV SCH ×2 (03:38→15:05)
[2023-05-06] MEDS: BROMOCRIPTINE MESYLATE 2.5 MG TAB PO SCH ×4 (03:38→21:19)
[2023-05-06] MEDS: DANTROLENE SODIUM 25 MG CAP PEG SCH ×4 (03:38→21:19)
[2023-05-06] MEDS: BACLOFEN 20 MG TAB PEG SCH ×4 (03:38→21:18)
[2023-05-06] MEDS: GABAPENTIN 250 MG/5 ML 470 ML BTL PO SCH ×4 (03:38→21:22)
[2023-05-06] MEDS: CEFEPIME 2,000 MG in SYRINGE 0 ML IV SCH (03:40)
[2023-05-06] MEDS: VANCOMYCIN HCL 1,000 MG in SODIUM CHLORIDE 0.9% 250 ML IV SCH (04:10)
[2023-05-06 04:30] LABS: Basophils # (auto) 0.08 K/uL (0.00-0.20); Basophils % (auto) 0.9 %; Eosinophils # (auto) 0.17 K/uL (0.00-0.50); Hematocrit (blood only) 31.1 % (42.0-52.0); Hemoglobin 10.1 g/dl (14.0-18.0); Immature Granulocytes # (auto) 0.02 K/uL (0.01-0.20); Immature Granulocytes % (auto) 0.2 %; Lymphocytes # (auto) 1.78 K/uL (1.20-3.40); Lymphocytes % (auto) 20.5 %; Mean Corpuscular Hemoglobin 31.3 pg (25.0-34.0); Mean Corpuscular Hgb Conc 32.5 g/dL (32.0-36.0); Mean Corpuscular Volume 96.3 fL (80.0-100.0); Mean Platelet Volume 11.7 fL (9.4-12.4); Monocytes # (auto) 0.71 K/uL (0.11-0.59); Monocytes % (auto) 8.2 %; Neutrophils # (auto) 5.94 K/uL (1.40-6.50); Neutrophils % (auto) 68.2 %; Platelet Count 317 K/uL (130-400); RDW Standard Deviation 49.6 fL (36.4-46.3); Red Blood Count 3.23 M/uL (4.70-6.10)
[2023-05-06 04:47] LABS: Anion Gap 9 (3-11); BUN Creatinine Ratio 21.2 (10-20); Blood Urea Nitrogen 11 mg/dl (6-23); Calcium 9.4 mg/dl (8.6-10.3); Carbon Dioxide 25 mmol/L (21-32); Chloride 106 mmol/L (98-107); Creatinine Clr Calc Pharmacy 143.1 ml/min; Est GFR (African American) > 150.0 ml/min; Est GFR (Non-African American) 141.1 ml/min; Glucose 89 mg/dl (70-99(Fasting)); Potassium 3.8 mmol/L (3.5-5.1); Sodium 140 mmol/L (136-145)
[2023-05-06] MEDS: ACETAMINOPHEN SUSP 325 MG/10.15 ML UDC PEG SCH ×4 (05:35→23:59)
[2023-05-06] MEDS: APIXABAN 5 MG TABLET PO SCH ×2 (08:08→21:20)
[2023-05-06] MEDS: METOPROLOL TARTRATE 25 MG TAB PEG SCH ×2 (08:08→21:20)
[2023-05-06] MEDS: ESCITALOPRAM OXALATE ORAL SOLN 5 MG/5 ML UDP PEG SCH (08:08)
[2023-05-06] MEDS: MULTI VIT W/MINERALS LIQUID 15 ML UDP PEG SCH (08:08)
--- NOTE | 2023-05-06 15:00 | Hospitalist Progress Note ---
Date of Service May 06, 2023 Assessment & Plan (1) PEG tube malfunction: Plan: Occurred at his [facility] residence. This has been corrected. Tube feeds have been restarted. We will switch to bolus feeding before he returns to [facility] (2) Diaphoresis: Plan: Diaphoresis and tachycardia due to autonomic dysfunction related to traumatic brain injury. Sepsis has been ruled out. Antibiotics have been discontinued. Blood cultures remain negative to date. No pneumonia infiltrate seen on chest x-ray (3) History of traumatic brain injury: Plan: Ruptured intracranial aneurysm beginning of 2022, with craniotomy and hematoma evacuation at [facility], s/p skull plate replantation . Supportive care (4) Respiratory failure: Plan: Acute hypoxic respiratory failure. Mother states that he does not typically use oxygen via tracheostomy. We will repeat portable chest x-ray today, May 06. Supplemental oxygen as needed per trach collar. Wean off as tolerated (5) S/P RECORD TABULATING CLERK shunt: Plan: Stable. No intervention necessary at this time (6) Moderate protein-calorie malnutrition: Plan: Stable. Currently on continuous PEG tube feedings. We will switch to bolus feeding before he returns to [facility]. (7) History of DVT (deep vein thrombosis): Plan: DOAC continued Plan Hopeful return to the [facility] tomorrow, May 07 Admission and Anticipated Discharge Date Admission Date: May 04, 2023 Subjective No new developments. Cultures are negative. Antibiotics have been discontinued. I spoke to his mother by phone. We will switch to bolus feeding tomorrow before he returns to the [facility]. Oxygen will be weaned off as tolerated Review of Systems 2 Review of Systems: The patient is unable to answer any questions regarding review of systems Physical Exam 2 Physical Exam: General-awake but nonverbal. No apparent distress. No fever HEENT-right temporal area depression from previous craniotomy. Pupils equal and reactive to light Neck-no lymphadenopathy or thyromegaly, trachea midline Chest-scattered bilateral rhonchi. No wheezing Cardiac-regular rate and rhythm, normal S1 and S2 Abdomen-normal bowel sounds, PEG tube site unremarkable , no hepatosplenomegaly Extremities-upper extremity contractures. Mild peripheral edema both feet from bed ridden state Neuro-status post cerebral hemorrhage with surgical intervention with no purposeful movements and upper extremity contractures Psych-cannot assess Results & Data Results & Data Vital Signs (Past 12 Hours) Vital Signs Temp Pulse Pulse Resp BP Pulse Ox O2 Del Method 05/06/23 11:24 37.6 C H 85 18 109/57 L 97 Trach Collar 05/06/23 08:03 37.5 C 85 20 111/67 98 Trach Collar 05/06/23 07:00 Trach Collar 05/06/23 07:00 93 H 05/06/23 03:31 37.7 C H 101 H 19 143/85 H 99 Room Air, Trach Collar O2 Flow Rate FiO2 05/06/23 11:24 6 05/06/23 08:03 6 05/06/23 07:00 6 21 05/06/23 07:00 05/06/23 03:31 Laboratory Results 05/06/23 03:59 05/06/23 03:59 PG Care Time/CCT Total # of Minutes Spent Total Time Spent with Patient: Total time spent is greater than 50% in coordination of care (as documented) at patient's floor/unit and/or counseling patient: Coding Level of Care Code 40127 SUB INP/OBS CARE 3/50MIN Diagnoses PEG tube malfunction K94.23 Diaphoresis R61 History of traumatic brain injury Z87.820 Respiratory failure J96.90 S/P RECORD TABULATING CLERK shunt Z98.2 Moderate protein-calorie malnutrition E44.0 History of DVT (deep vein thrombosis) Z86.718
--- NOTE | 2023-05-06 15:22 | Hospitalist Progress Note ---
Date of Service May 06, 2023 Assessment & Plan (1) PEG tube malfunction: Plan: Occurred at his [facility] residence. This has been corrected. Tube feeds have been restarted. We will switch to bolus feeding before he returns to [facility] (2) Diaphoresis: Plan: Diaphoresis and tachycardia due to autonomic dysfunction related to traumatic brain injury. Sepsis has been ruled out. Antibiotics have been discontinued. Blood cultures remain negative to date. No pneumonia infiltrate seen on chest x-ray (3) History of traumatic brain injury: Plan: Ruptured intracranial aneurysm beginning of 2022, with craniotomy and hematoma evacuation at [facility], s/p skull plate replantation . Supportive care (4) Respiratory failure: Plan: Acute hypoxic respiratory failure. Mother states that he does not typically use oxygen via tracheostomy. We will repeat portable chest x-ray today, May 06. Supplemental oxygen as needed per trach collar. 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 No intervention necessary at this time (6) Moderate protein-calorie malnutrition: Plan: Stable. Currently on continuous PEG tube feedings. We will switch to bolus feeding before he returns to [facility]. (7) History of DVT (deep vein thrombosis): Plan: DOAC continued Plan Hopeful return to the [facility] tomorrow, May 07 Admission and Anticipated Discharge Date Admission Date: May 04, 2023 Subjective The patient remains unresponsive and nonverbal. Cultures are negative. Antibiotics discontinued. Discussed with his mother by phone today. He will be switched to bolus feeding before he can go back to [facility] tomorrow, May 07 Review of Systems 2 Review of Systems: The patient is unable to answer any questions regarding review of systems Physical Exam 2 Physical Exam: General-unresponsive and nonverbal which is his chronic state HEENT-right temporal area depression from previous craniotomy. Pupils equal and reactive to light, extraocular muscles intact. Neck-no lymphadenopathy or thyromegaly, trachea midline Chest-scattered bilateral rhonchi. No wheezing Cardiac-regular rate and rhythm, normal S1 and S2 Abdomen-normal bowel sounds, no hepatosplenomegaly. PEG tube insertion site unremarkable Extremities-bilateral upper extremity contractures. No cyanosis. No edema Neuro-unable to evaluate Psych-unable to evaluate Results & Data Results & Data Vital Signs (Past 12 Hours) Vital Signs Temp Pulse Pulse Resp BP Pulse Ox O2 Del Method 05/06/23 11:24 37.6 C H 85 18 109/57 L 97 Trach Collar 05/06/23 08:03 37.5 C 85 20 111/67 98 Trach Collar 05/06/23 07:00 Trach Collar 05/06/23 07:00 93 H 05/06/23 03:31 37.7 C H 101 H 19 143/85 H 99 Room Air, Trach Collar O2 Flow Rate FiO2 05/06/23 11:24 6 05/06/23 08:03 6 05/06/23 07:00 6 21 05/06/23 07:00 05/06/23 03:31 Laboratory Results 05/06/23 03:59 05/06/23 03:59 PG Care Time/CCT Total # of Minutes Spent Total Time Spent with Patient: Total time spent is greater than 50% in coordination of care (as documented) at patient's floor/unit and/or counseling patient: Coding Level of Care Code 61633 SUB INP/OBS CARE 3/50MIN Diagnoses PEG tube malfunction K94.23 Diaphoresis R61 History of traumatic brain injury Z87.820 Respiratory failure J96.90 S/P SUPERVISOR FORMING [employer] TEMPERING shunt Z98.2 Moderate protein-calorie malnutrition E44.0 History of DVT (deep vein thrombosis) Z86.718
--- NOTE | 2023-05-06 15:32 | XRay Report ---
XR chest 1V portable HISTORY: 32 years-old Male hypoxia acute hypoxia COMPARISON: 05/04/2023 TECHNIQUE: AP view of the chest FINDINGS: Tracheostomy cannula overlies the midline. Shunt catheter projects over the left neck, chest and abdo men. No pneumothorax, pleural effusion or airspace consolidation. The bones appear grossly intact. IMPRESSION: 1. No acute process of the chest. 2. Unchanged positioning of the tracheostomy cannula. ACT 112: Negative or not required by law. The above report was generated using voice recognition software. It may contain grammatical, syntax o r spelling errors. Electronically signed by: Corey Rodgers M.D. 05/06/2023 3:31 PM
[2023-05-06] MEDS: PEPTAMEN 1.5 CAL 1,000 ML BAG PEG SCH (19:19)
[2023-05-07] MEDS: TUBE FEEDING WATER FLUSH PEG SCH ×6 (01:06→22:07)
[2023-05-07] MEDS: BROMOCRIPTINE MESYLATE 2.5 MG TAB PO SCH ×4 (03:11→20:10)
[2023-05-07] MEDS: DANTROLENE SODIUM 25 MG CAP PEG SCH ×4 (03:11→20:11)
[2023-05-07] MEDS: BACLOFEN 20 MG TAB PEG SCH ×4 (03:11→20:10)
[2023-05-07] MEDS: GABAPENTIN 250 MG/5 ML 470 ML BTL PO SCH ×4 (03:12→20:10)
[2023-05-07] MEDS: ACETAMINOPHEN SUSP 325 MG/10.15 ML UDC PEG SCH ×3 (06:10→17:07)
[2023-05-07 08:15] LABS: Basophils # (auto) 0.02 K/uL (0.00-0.20); Basophils % (auto) 0.2 %; Eosinophils # (auto) 0.14 K/uL (0.00-0.50); Eosinophils % (auto) 1.3 %; Hematocrit (blood only) 29.6 % (42.0-52.0); Hemoglobin 9.2 g/dl (14.0-18.0); Immature Granulocytes # (auto) 0.03 K/uL (0.01-0.20); Immature Granulocytes % (auto) 0.3 %; Lymphocytes # (auto) 1.48 K/uL (1.20-3.40); Mean Corpuscular Hemoglobin 30.8 pg (25.0-34.0); Mean Corpuscular Hgb Conc 31.1 g/dL (32.0-36.0); Mean Platelet Volume 11.9 fL (9.4-12.4); Monocytes # (auto) 0.74 K/uL (0.11-0.59); Neutrophils # (auto) 8.17 K/uL (1.40-6.50); Neutrophils % (auto) 77.2 %; Platelet Count 232 K/uL (130-400); RDW Coefficient of Variation 14.5 % (11.5-14.5); RDW Standard Deviation 52.3 fL (36.4-46.3); Red Blood Count 2.99 M/uL (4.70-6.10); White Blood Count 10.58 K/ul (4.8-10.8)
[2023-05-07 08:34] LABS: Anion Gap 8 (3-11); Calcium 8.7 mg/dl (8.6-10.3); Carbon Dioxide 24 mmol/L (21-32); Chloride 110 mmol/L (98-107); Potassium 3.1 mmol/L (3.5-5.1); Sodium 142 mmol/L (136-145)
[2023-05-07 08:40] LABS: BUN Creatinine Ratio 19.5 (10-20); Blood Urea Nitrogen 8 mg/dl (6-23); Creatinine Clr Calc Pharmacy 194.6 ml/min; Est GFR (African American) > 150.0 ml/min; Est GFR (Non-African American) > 150.0 ml/min; Glucose 112 mg/dl (70-99(Fasting))
[2023-05-07] MEDS ORDERED: [UNRECOGNIZED DRUG - OTHER] PEG SCH (09:00)
[2023-05-07] MEDS: MULTI VIT W/MINERALS LIQUID 15 ML UDP PEG SCH (09:41)
[2023-05-07] MEDS: ESCITALOPRAM OXALATE ORAL SOLN 5 MG/5 ML UDP PEG SCH (09:41)
[2023-05-07] MEDS: METOPROLOL TARTRATE 25 MG TAB PEG SCH ×2 (09:41→20:11)
[2023-05-07] MEDS: APIXABAN 5 MG TABLET PO SCH ×2 (09:42→20:10)
[2023-05-07] MEDS ORDERED: OPTIRAY 320 500ml IV ONE (11:04)
--- NOTE | 2023-05-07 11:34 | CT Scan Report ---
CT angio chest PE protocol CT DOSE: 559.3 mGy.cm HISTORY: 32 years-old Male with hypoxia. Acute hypoxia TECHNIQUE: Multiple CTA images of the chest were obtained after the intravenous administration of 113 ml Optiray. Coronal and sagittal MIPS were obtained from the axial data set and were submitted for review. All measurements were obtained according to NASCET criteria. A dose lowering technique was u tilized adhering to the principles of ALARA. COMPARISON: 05/06/2023 FINDINGS: CTA: The heart is normal in size. Unremarkable thoracic aorta and pulmonary artery. CT CHEST: No thyroid nodule. Tracheostomy cannula is in satisfactory positioning. Mild tracheobronchial secreti ons. No lymphadenopathy. Trace pleural effusions. Bronchial wall thickening with mild mucous plugging . Subsegmental bibasilar consolidation. Shunt catheter distal tip is noted within the abdominal and upper quadrant. Small volume of upper abd ominal ascites. Moderate fecal retention of the left hemicolon. Unremarkable soft tissues. No acute f racture. IMPRESSION: 1. No pulmonary emboli identified. 2. Satisfactory positioning of the tracheostomy cannula. 3. Bronchial wall thickening suggestive of bronchitis or reactive airway disease with tracheobronchia l secretions and mucous plugging. 4. Trace pleural effusions. 5. Upper abdominal shunt catheter with small volume of ascites. ACT 112: Negative or not required by law. The above report was generated using voice recognition software. It may contain grammatical, syntax o r spelling errors. Electronically signed by: Coery Rodgers M.D. 05/07/2023 11:33 AM
[2023-05-07] MEDS: PEPTAMEN 1.5 CAL 1,000 ML BAG PO SCH ×2 (12:35→13:32)
[2023-05-07] MEDS: SCOPOLAMINE 1 MG TDSY TD SCH (14:33)
--- NOTE | 2023-05-07 14:52 | Hospitalist Progress Note ---
Date of Service May 07, 2023 Assessment & Plan (1) PEG tube malfunction: Plan: Occurred at his [facility] residence. This has been corrected. Tube feeds have been restarted. Switched to bolus feeding today, May 07. 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 Sepsis has been ruled out. Antibiotics have been discontinued. Blood cultures remain negative to date. No pneumonia infiltrate seen on chest x-ray (3) History of traumatic brain injury: Plan: Ruptured intracranial aneurysm beginning of 2022, with craniotomy and hematoma evacuation at [facility], s/p skull plate replantation . Supportive care (4) Respiratory failure: Plan: Acute hypoxic respiratory failure. Mother states that he does not typically use oxygen via tracheostomy. Repeat chest x-ray done May 06 is unremarkable. Chest CTA obtained today, May 07, is negative for PE. However there is evidence of mucous plugging and atelectasis which accounts for his acute hypoxic respiratory failure. Supplemental oxygen as needed per trach collar. Wean off as tolerated (5) S/P [employer] shunt: Plan: Stable. No intervention necessary at this time (6) Moderate protein-calorie malnutrition: Plan: Stable. Continuous PEG tube feedings have been switched to bolus feeding. (7) History of DVT (deep vein thrombosis): Plan: DOAC continued Plan Hopeful return to the [facility] on May 08 Admission and Anticipated Discharge Date Admission Date: May 04, 2023 Subjective No significant clinical change. Mother is at the bedside. Continuous PEG tube feedings have been switched to bolus feeding. IV fluids discontinued. Chest CTA obtained and negative for PE. He does have some mucous plugging which accounts for his hypoxia and need for supplemental oxygen. Review of Systems 2 Review of Systems: The patient is unable to answer any questions regarding review of systems Physical Exam 2 Physical Exam: General-unresponsive and nonverbal which is his chronic state HEENT-right temporal area depression from previous craniotomy. Pupils equal and reactive to light, extraocular muscles intact. Neck-no lymphadenopathy or thyromegaly, trachea midline Chest-scattered bilateral rhonchi. No wheezing Cardiac-regular rate and rhythm, normal S1 and S2 Abdomen-normal bowel sounds, no hepatosplenomegaly. PEG tube insertion site unremarkable Extremities-bilateral upper extremity contractures. No cyanosis. No edema Neuro-unable to evaluate Psych-unable to evaluate Results & Data Results & Data Vital Signs (Past 12 Hours) Vital Signs Temp Pulse Pulse Resp BP Pulse Ox O2 Del Method 05/07/23 11:26 78 18 110/68 97 Trach Collar 05/07/23 10:00 75 05/07/23 10:00 Trach Collar 05/07/23 08:16 37.3 C 87 16 118/63 98 Trach Collar O2 Flow Rate 05/07/23 11:26 6 05/07/23 10:00 05/07/23 10:00 6 05/07/23 08:16 6 Laboratory Results 05/07/23 07:37 05/07/23 07:37 PG Care Time/CCT Total # of Minutes Spent Total Time Spent with Patient: Total time spent is greater than 50% in coordination of care (as documented) at patient's floor/unit and/or counseling patient: Coding Level of Care Code 40383 SUB INP/OBS CARE 3/50MIN Diagnoses PEG tube malfunction K94.23 Diaphoresis R61 History of traumatic brain injury Z87.820 Respiratory failure J96.90 S/P [employer] shunt Z98.2 Moderate protein-calorie malnutrition E44.0 History of DVT (deep vein thrombosis) Z86.718
[2023-05-07] MEDS: PEPTAMEN 1.5 CAL 1,000 ML BAG PEG SCH ×2 (16:49→21:02)
[2023-05-07] MEDS: POTASSIUM CHLORIDE / WTR 10 MEQ/100 ML PLCT IV SCH ×3 (20:09→23:35)
[2023-05-08] MEDS: ACETAMINOPHEN SUSP 325 MG/10.15 ML UDC PEG SCH ×3 (01:03→13:05)
[2023-05-08] MEDS: POTASSIUM CHLORIDE / WTR 10 MEQ/100 ML PLCT IV SCH (01:04)
[2023-05-08] MEDS: TUBE FEEDING WATER FLUSH PEG SCH ×4 (01:04→13:05)
[2023-05-08] MEDS: BACLOFEN 20 MG TAB PEG SCH ×3 (02:57→14:29)
[2023-05-08] MEDS: GABAPENTIN 250 MG/5 ML 470 ML BTL PO SCH ×3 (02:57→14:17)
[2023-05-08] MEDS: BROMOCRIPTINE MESYLATE 2.5 MG TAB PO SCH ×3 (02:57→14:28)
[2023-05-08] MEDS: DANTROLENE SODIUM 25 MG CAP PEG SCH ×3 (02:57→14:29)
[2023-05-08] MEDS: METOPROLOL TARTRATE 25 MG TAB PEG SCH (08:22)
[2023-05-08] MEDS: ESCITALOPRAM OXALATE ORAL SOLN 5 MG/5 ML UDP PEG SCH (08:22)
[2023-05-08] MEDS: APIXABAN 5 MG TABLET PO SCH (08:22)
[2023-05-08] MEDS: MULTI VIT W/MINERALS LIQUID 15 ML UDP PEG SCH (08:22)
[2023-05-08] MEDS: PEPTAMEN 1.5 CAL 1,000 ML BAG PEG SCH ×2 (08:37→13:05)
--- NOTE | 2023-05-08 12:43 | Discharge Summary ---
Date of Service May 08, 2023 Admission HPI Per Admitting Provider Ry is a 32-year-old male With a past medical history of chronic trach, PEG tube, nonverbal status following ruptured brain aneurysm and subsequent craniotomy/hematoma evacuation at [facility] with stabilization and skull plate replantation 11/2022. He has a [facility] resident, intermittent PEG tube exchanges due to clogging. Recent admissions / + 04/19/2310/ for sepsis. Patient has had rapid decompensation if he does not receive his home medications including amitriptyline/dantrolene/gabapentin/baclofen/morphine for autonomic dysfunction. 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 He was discharged on 04/23/2023 to follow-up with Dr. Britt at medical ICU and 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 Reviewed course of illness and documentation from that visit. Neurosurgery did note that there is a small layer near [employer] shunt in the subdural space and that this would be unusual and atypical for coag negative staph however additional evaluation including MRI and shunt tap were performed. As MRI did not show empyema no aspiration was required. Discussed with [facility] and patient's mother. They note that he missed a round of medications on Friday and this morning seemed more sweaty and tachycardic than he had previously. Last had meds at 930: Gabapentin, baclofen, dantrolene, bromocriptine were all given in addition to his other AM meds including eliquis, lexapro, MTP tartrate 25. Per his mother Sharlene who is at the bedside he looks markedly improved although still slightly more tachycardic than normal at the bedside. No other known injuries, no bleeding or trauma, no urinary change to her knowledge. Sacral ulcer is being addressed and rotated at [facility], no infection or change has been appreciated Principal Diagnosis Clogged PEG tube, acute hypoxic respiratory failure due to mucous plugging and atelectasis Discharge Exam General-unresponsive and nonverbal which is his chronic state HEENT-right temporal area depression from previous craniotomy. Pupils equal and reactive to light, extraocular muscles intact. Neck-no lymphadenopathy or thyromegaly, trachea midline Chest-scattered bilateral rhonchi. No wheezing Cardiac-regular rate and rhythm, normal S1 and S2 Abdomen-normal bowel sounds, no hepatosplenomegaly. PEG tube insertion site unremarkable Extremities-bilateral upper extremity contractures. No cyanosis. No edema Neuro-unable to evaluate Psych-unable to evaluate Discharge Data Allergies Allergy/AdvReac Type Severity Reaction Status Date / Time No Known Allergies Allergy Unverified 04/04/23 09:03 Consultations 05/04/23 13:11 ED Decision to Admit Stat Ordered Studies 05/07/23 09:30 CT angio chest PE protocol Stat Hospital Course (1) PEG tube malfunction: Occurred at his [facility] residence. This has been corrected. Tube feeds have been restarted. Switched to bolus feeding on May 07. 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 Sepsis has been ruled out. Antibiotics have been discontinued. Blood cultures remain negative to date. No pneumonia infiltrate seen on chest x-ray (3) History of traumatic brain injury: Ruptured intracranial aneurysm beginning of 2022, with craniotomy and hematoma evacuation at [facility], s/p skull plate replantation . Supportive care (4) Respiratory failure: Acute hypoxic respiratory failure. Mother states that he does not typically use oxygen via tracheostomy. Repeat chest x-ray done May 06 is unremarkable. Chest CTA obtained on May 07 is negative for PE. However there is evidence of mucous plugging and atelectasis which accounts for his acute hypoxic respiratory failure. Supplemental oxygen as needed per trach collar. Wean off as tolerated (5) S/P [employer] shunt: Stable. No intervention necessary at this time (6) Moderate protein-calorie malnutrition: Stable. Continuous PEG tube feedings have been switched to bolus feeding. (7) History of DVT (deep vein thrombosis): DOAC continued Plan Discharge back to [facility] today, May 08 Total Time Total Time Spent Total Time Spent (In Minutes): 45-minute Discharge Plan Discharge Items Patient Disposition: Transfer [facility] Reason For Visit: TACHYCARDIA, SWEATING, ?MEDICATION EFFECT VS INFEC Discharge Diagnosis: Clogged PEG tube, sepsis ruled out Activity: Resume your previous activity Non-emergency contact: Primary Care Provider Call non-emergency contact if: your symptoms worsen Follow-up/Referrals: Edgardo Pruett [Primary Care Provider] - Dietitian Info: Free water through PEG tube 30 cc 4 times a day Diet: Nothing by Mouth Diet Comment: Bolus feeding per PEG tube, Peptamen or equivalent 250 cc 4 times a day Addtl Attending Provider Instructions: PEG tube feeding is now switched from continuous to bolus feeding Pending Studies at Discharge: No Stand-Alone Forms: My [facility] Skilled Items Patient informed of condition?: Yes DNR: No Discharge Level of Care: Skilled Communicable Disease: No Discharge Prognosis: Stable Lines: None Urinary Catheter: No Medications and DC Order Prescriptions: New Tube Feeding Water Flush 150 ml PEG Q4H Qty: 0 0RF Peptamen 1.5 0.068 gram- 1.5 kcal/mL Liquid 250 ea PEG QID Qty: 6000 0RF Continued scopolamine base 1 mg over 3 days Patch 3 Day 1 patch TRANSDERMAL Q3D Eliquis 5 mg Tablet 5 mg feeding tube BID dantrolene 25 mg Capsule 100 mg PEG Q6 Qty: 120 11RF gabapentin 250 mg/5 mL Solution 400 mg PEG Q6 Qty: 250 11RF bromocriptine 2.5 mg Tablet 2.5 mg feeding tube Q6 Qty: 120 11RF metoprolol tartrate 25 mg Tablet 25 mg PEG BID Qty: 60 11RF acetaminophen 325 mg/10.15 mL Suspension 650 mg PEG Q6 Qty: 250 0RF Centrum 9 mg iron/15 mL Liquid 15 ml PEG QAM 30 Days Qty: 450 11RF ferrous sulfate 220 mg (44 mg iron)/5 mL Elixir 325 mg G-tube Q48H 60 Days Qty: 221.592 0RF baclofen 10 mg Tablet 20 mg feeding tube Q6H Qty: 1 0RF polyethylene glycol 3350 [Miralax] 17 gram Powder In Packet 17 g PO BID melatonin 3 mg Tablet 3 mg PO HS mineral oil [Enema] Enema 118 ml MS DAILY PRN (Reason: constipation ) Rx Instructions: discard any unused portion bisacodyl 10 mg Suppository 10 mg MS DAILY PRN (Reason: Constipation) Milk of Magnesia 30 ml G-tube BID Discontinued escitalopram oxalate 5 mg/5 mL Solution 5 mg PEG QAM Qty: 150 11RF Discharge Orders: Discharge Order (Routine); Ordered 05/08/23 Ordered By: Selvin Gill Admission Data Admit Date/Time: 05/04/23 14:38 Attending Provider: Selvin Gill Admit Provider: Gael York Primary Care Provider: Edgardo Pruett Other Providers: Gael York Coding Level of Care Code 68983 INP/OBS DISCH >30 MIN Diagnoses PEG tube malfunction K94.23 Diaphoresis R61 History of traumatic brain injury Z87.820 Respiratory failure J96.90 S/P [employer] shunt Z98.2 Moderate protein-calorie malnutrition E44.0 History of DVT (deep vein thrombosis) Z86.718
== END 2023-05-08 17:21 | DRG 393 ==
LOC: ED 09:49 → EDINP 14:38 → SUATTDRO 14:38 → 2E 18:12

== ENCOUNTER 2023-07-08 09:39 | Inpatient (IN) ==
[2023-07-08] MEDS ORDERED: SODIUM CHLORIDE 0.9% 500 ML IV SCH (10:15)
[2023-07-08] MEDS ORDERED: SODIUM CHLORIDE 0.9% 1,000 ML IV SCH (10:15)
--- NOTE | 2023-07-08 10:21 | Emergency Department Note ---
Impression & Plan Sepsis, Pneumatosis coli, Decubital ulcer ED Provider Note NAME: NAYELY DOBSON AGE: 32 SEX: M : 1990 ARRIVES VIA: Ambulance INFORMANT: Patient, ED PROVIDER(S): Ricky Youssef MD CHIEF COMPLAINT: Possible sepsis HPI: This is a 32-year-old male with history of nontraumatic rupture of cerebral aneurysm, now nonverbal, chronic contracture, tracheostomy and PEG tube dependence presenting for concern for sepsis. Patient was called from his facility for concern for sepsis from a sacral decubitus ulcer. Patient had this decubitus ulcer of the sacrum for unknown amount of time. He presents to the emergency department with tachycardia, borderline blood pressures, febrile 38 degrees. ROS: See above HPI for pertinent positives & negatives. A total of 10 systems reviewed and were otherwise negative. PAST MEDICAL HISTORY: See Below PAST SURGICAL HISTORY: See Below FAMILY HISTORY: See Below SOCIAL HISTORY: See Below HOME MEDICATIONS: See Below ALLERGIES: See Below VITALS: See Below PHYSICAL EXAMINATION: General: Chronically ill-appearing Head: Postcraniotomy Eyes: Normal inspection Ear, nose, throat: Normal external exam Neck: Supple Respiratory: lungs clear to auscultation bilaterally Cardiovascular: Tachycardic regular rate/rhythm, no murmur GI: soft, PEG tube in place without surrounding erythema or discharge Extremities: Thin, and chronic contractures Neuro: Chronic contracture, nonverbal Skin: Moderate sacral decrease ulcer MEDICAL DECISION MAKING: This is a 32-year-old male with history as above presenting for possible sepsis. Patient was sedated for sacral degrees ulcer. Patient is clearly septic at this time with elevated temperature, heart rate. Borderline hypotensive here. Will do fluid resuscitation and broad-spectrum antibiotics. -Lactic acid not elevated 1.5 -ECG independently interpreted by me with sinus tachycardia, rate of 114, left axis deviation, normal WA, normal QRS, normal QTc, no ST segment elevations consistent with STEMI criteria -Chest Xray independently interpreted by me showing no pneumothorax, focal opacity, or pleural effusions. -Lab work reveals borderline leukopenia, no anemia, illicit disturbances, transaminitis of unclear etiology, negative troponin -Urinalysis reveals no signs of UTI at this time -Viral panel negative -CT abdomen/pelvis reveals pneumatosis of the cecum as well as sacral decubitus ulcer with cellulitis, no CT signs of osteomyelitis -Discussed with Dr. Batista, general surgery, for there is evaluation of pneumatosis. Patient has a nontender abdomen, nonelevated lactate and generally appears otherwise well. He states he will see the patient in consultation. -Patient admitted to medicine otherwise for sepsis with possible sacral decubitus ulcer/cellulitis source versus pneumatosis source. Differential diagnosis: Sepsis, UTI, cholecystitis, appendicitis, pyelonephritis, SBO, pneumonia ER treatment provided: See below Diagnostics interpreted by me: ECG: See above Cardiac Monitoring: An order was placed for continuous cardiac monitoring. The monitor shows a rate of 122 with sinus tachycardia rhythm. Laboratory studies: As stated above and show below. Imaging studies: See below. Critical Care Note: I have personally spent 45 minutes of critical care time in the direct management of this patient. This includes bedside care, interpretation of diagnostic studies, and testing, discussion with consultants, patient, and family members, and other required patient management activities. This 45 minutes is in excess of all separately billable procedures. 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 Social History Smoking Status: Unknown if ever smoked Second Hand Exposure: No; Do You Dip or Chew Tobacco: No; Hx Alcohol Use: No Hx Substance Use: No Preferred Language: Gabonese Communication Ability: Unable Manager Scientific Required: No Beliefs That Will Affect Care: None Current Living Situation: Long Term Feels Safe at Home: Yes Assistive Devices: Other Allergies Allergies Allergy/AdvReac Type Severity Reaction Status Date / Time No Known Allergies Allergy Unverified 07/08/23 15:52 Home Meds Home Medications Medication Instructions Recorded Confirmed apixaban 5 mg tablet (Eliquis) 5 mg feeding tube BID 04/02/23 07/08/23 scopolamine base 1 mg over 3 days 1 patch transdermal Q3D 04/02/23 07/08/23 transdermal patch bisacodyl 10 mg rectal suppository 10 mg WA .EVERY 24 HOURS PRN 05/04/23 07/08/23 Constipation Proheal 30 ml feeding tube BID 07/08/23 07/08/23 apixaban 5 mg tablet (Eliquis) 5 mg feeding tube BID 07/08/23 07/08/23 ascorbic acid (vitamin C) 500 mg 500 mg PO DAILY 07/08/23 07/08/23 tablet baclofen 20 mg tablet 20 mg feeding tube Q8 07/08/23 07/08/23 collagenase clostridium histo. 250 1 applic topical .EVERY DAY SHIFT 07/08/23 07/08/23 unit/gram topical ointment (Santyl) collagenase clostridium histo. 250 1 applic topical DIRECTED PRN 07/08/23 07/08/23 unit/gram topical ointment (Santyl) soilage/dislodgement ferrous sulfate 300 mg (60 mg 325 mg feeding tube Q OTHER DAY 07/08/23 07/08/23 iron)/5 mL oral liquid lactose-reduced food with fiber 1 ea feeding tube Q4 07/08/23 07/08/23 0.06 gram-1.5 kcal/mL oral liquid (Jevity 1.5 Lance) magnesium hydroxide 400 mg/5 mL 2,400 mg PO DAILY PRN Constipation 07/08/23 07/08/23 oral suspension (Milk of Magnesia) melatonin 3 mg tablet 3 mg feeding tube HS 07/08/23 07/08/23 metoprolol tartrate 25 mg tablet 25 mg PEG Q12 07/08/23 07/08/23 multivitamin 1 tab feeding tube QAM 07/08/23 07/08/23 polyethylene glycol 3350 17 gram 17 g feeding tube BID 07/08/23 07/08/23 oral powder packet (Miralax) sodium phosphates 19 gram-7 118 ml WA .MORNING OF 4TH DAY PRN 07/08/23 07/08/23 gram/118 mL enema (Fleet Enema) Constipation water 1 ea UD 07/08/23 07/08/23 zinc sulfate 50 mg zinc (220 mg) 50 mg PO DAILY 07/08/23 07/08/23 tablet Previous Rx's Medication Instructions Recorded acetaminophen 325 mg/10.15 mL oral 650 mg (20.3 mL) PEG Q6 #250 mL 04/17/23 suspension bromocriptine 2.5 mg tablet 2.5 mg feeding tube Q6 #120 tabs 04/17/23 dantrolene 25 mg capsule 100 mg (4 x 25 mg) PEG Q6 #120 caps 04/17/23 gabapentin 250 mg/5 mL oral 400 mg (8 mL) PEG Q6 #250 mL 04/17/23 solution Results & Data (ED) Vital Signs Vital Signs - 24 hr 07/08/23 09:48 07/08/23 09:48 07/08/23 09:50 Temperature Temperature Source Pulse Rate 112 H 112 H Pulse Rate from SpO2 Sensor Respiratory Rate 25 H 25 H Respiratory Depth Blood Pressure 97/72 L Blood Pressure Mean 78 Pulse Oximetry Oxygen Delivery Method Sepsis Recent Fever Within 48 Hours Sepsis New/Unexplained Change in Mental Status Sepsis Action Taken by Nursing 07/08/23 09:54 07/08/23 09:55 07/08/23 10:00 Temperature 38 C H Temperature Source Oral Pulse Rate 111 H 112 H Pulse Rate from SpO2 Sensor Respiratory Rate 18 Respiratory Depth Normal Blood Pressure 97/72 L 99/71 L Blood Pressure Mean 80 83 Pulse Oximetry 96 Oxygen Delivery Method Room Air Sepsis Recent Fever Within 48 Hours Yes Sepsis New/Unexplained Change in Mental Status No Sepsis Action Taken by Nursing No Action Required 07/08/23 10:00 07/08/23 10:10 07/08/23 10:20 Temperature Temperature Source Pulse Rate 113 H 115 H 111 H Pulse Rate from SpO2 Sensor Respiratory Rate 24 24 23 Respiratory Depth Blood Pressure Blood Pressure Mean Pulse Oximetry Oxygen Delivery Method Sepsis Recent Fever Within 48 Hours Sepsis New/Unexplained Change in Mental Status Sepsis Action Taken by Nursing 07/08/23 10:25 07/08/23 10:30 07/08/23 10:40 Temperature Temperature Source Pulse Rate 110 H 112 H Pulse Rate from SpO2 Sensor Respiratory Rate 22 21 Respiratory Depth Blood Pressure Blood Pressure Mean Pulse Oximetry 96 Oxygen Delivery Method Room Air Sepsis Recent Fever Within 48 Hours Sepsis New/Unexplained Change in Mental Status Sepsis Action Taken by Nursing 07/08/23 10:50 07/08/23 11:00 07/08/23 11:00 Temperature Temperature Source Pulse Rate 112 H 113 H Pulse Rate from SpO2 Sensor Respiratory Rate 20 18 Respiratory Depth Blood Pressure 111/69 Blood Pressure Mean 84 Pulse Oximetry Oxygen Delivery Method Sepsis Recent Fever Within 48 Hours Sepsis New/Unexplained Change in Mental Status Sepsis Action Taken by Nursing 07/08/23 11:10 07/08/23 11:20 07/08/23 11:30 Temperature Temperature Source Pulse Rate 113 H 113 H 118 H Pulse Rate from SpO2 Sensor 115 H 119 H Respiratory Rate 21 15 21 Respiratory Depth Blood Pressure Blood Pressure Mean Pulse Oximetry 95 96 Oxygen Delivery Method Sepsis Recent Fever Within 48 Hours Sepsis New/Unexplained Change in Mental Status Sepsis Action Taken by Nursing 07/08/23 11:32 07/08/23 11:32 07/08/23 11:40 Temperature Temperature Source Pulse Rate 119 H 122 H Pulse Rate from SpO2 Sensor 119 H 121 H Respiratory Rate 21 20 Respiratory Depth Blood Pressure 109/68 Blood Pressure Mean 79 Pulse Oximetry 97 96 Oxygen Delivery Method Sepsis Recent Fever Within 48 Hours Sepsis New/Unexplained Change in Mental Status Sepsis Action Taken by Nursing 07/08/23 11:50 07/08/23 12:00 07/08/23 12:10 Temperature Temperature Source Pulse Rate 120 H 118 H 119 H Pulse Rate from SpO2 Sensor 120 H 118 H 120 H Respiratory Rate 17 16 17 Respiratory Depth Blood Pressure Blood Pressure Mean Pulse Oximetry 97 97 96 Oxygen Delivery Method Sepsis Recent Fever Within 48 Hours Sepsis New/Unexplained Change in Mental Status Sepsis Action Taken by Nursing 07/08/23 12:20 07/08/23 12:30 07/08/23 12:30 Temperature Temperature Source Pulse Rate 118 H 117 H Pulse Rate from SpO2 Sensor 118 H 117 H Respiratory Rate 18 16 Respiratory Depth Blood Pressure 105/72 Blood Pressure Mean 84 Pulse Oximetry 96 95 Oxygen Delivery Method Sepsis Recent Fever Within 48 Hours Sepsis New/Unexplained Change in Mental Status Sepsis Action Taken by Nursing 07/08/23 12:45 07/08/23 12:50 07/08/23 13:00 Temperature Temperature Source Pulse Rate 122 H 123 H 121 H Pulse Rate from SpO2 Sensor 249 H 247 H 243 H Respiratory Rate 19 18 18 Respiratory Depth Blood Pressure Blood Pressure Mean Pulse Oximetry 95 96 95 Oxygen Delivery Method Sepsis Recent Fever Within 48 Hours Sepsis New/Unexplained Change in Mental Status Sepsis Action Taken by Nursing 07/08/23 13:00 07/08/23 13:10 07/08/23 13:20 Temperature Temperature Source Pulse Rate 116 H 117 H Pulse Rate from SpO2 Sensor 231 H 226 H Respiratory Rate 13 16 Respiratory Depth Blood Pressure 111/77 Blood Pressure Mean 85 Pulse Oximetry 94 95 Oxygen Delivery Method Sepsis Recent Fever Within 48 Hours Sepsis New/Unexplained Change in Mental Status Sepsis Action Taken by Nursing 07/08/23 13:30 07/08/23 13:40 07/08/23 13:50 Temperature Temperature Source Pulse Rate 114 H 115 H 116 H Pulse Rate from SpO2 Sensor 231 H 115 H 116 H Respiratory Rate 18 18 18 Respiratory Depth Blood Pressure Blood Pressure Mean Pulse Oximetry 95 94 94 Oxygen Delivery Method Sepsis Recent Fever Within 48 Hours Sepsis New/Unexplained Change in Mental Status Sepsis Action Taken by Nursing 07/08/23 13:56 07/08/23 14:00 07/08/23 14:00 Temperature Temperature Source Pulse Rate 119 H 120 H Pulse Rate from SpO2 Sensor 120 H Respiratory Rate 21 Respiratory Depth Blood Pressure 110/75 Blood Pressure Mean 84 Pulse Oximetry 95 Oxygen Delivery Method Sepsis Recent Fever Within 48 Hours Sepsis New/Unexplained Change in Mental Status Sepsis Action Taken by Nursing 07/08/23 14:10 07/08/23 14:20 07/08/23 14:30 Temperature Temperature Source Pulse Rate 125 H 126 H 128 H Pulse Rate from SpO2 Sensor 124 H 126 H 128 H Respiratory Rate Respiratory Depth Blood Pressure Blood Pressure Mean Pulse Oximetry 95 94 94 Oxygen Delivery Method Sepsis Recent Fever Within 48 Hours Sepsis New/Unexplained Change in Mental Status Sepsis Action Taken by Nursing 07/08/23 14:40 07/08/23 14:50 07/08/23 15:00 Temperature Temperature Source Pulse Rate 129 H Pulse Rate from SpO2 Sensor 129 H 128 H Respiratory Rate Respiratory Depth Blood Pressure 121/78 Blood Pressure Mean 90 Pulse Oximetry 94 95 Oxygen Delivery Method Sepsis Recent Fever Within 48 Hours Sepsis New/Unexplained Change in Mental Status Sepsis Action Taken by Nursing 07/08/23 15:00 07/08/23 15:10 07/08/23 15:14 Temperature 39.7 C H Temperature Source Rectal Pulse Rate 127 H Pulse Rate from SpO2 Sensor 130 H 128 H Respiratory Rate 21 Respiratory Depth Blood Pressure Blood Pressure Mean Pulse Oximetry 95 96 Oxygen Delivery Method Sepsis Recent Fever Within 48 Hours Sepsis New/Unexplained Change in Mental Status Sepsis Action Taken by Nursing 07/08/23 15:20 07/08/23 15:30 07/08/23 15:40 Temperature Temperature Source Pulse Rate 130 H 129 H 126 H Pulse Rate from SpO2 Sensor 130 H 129 H 126 H Respiratory Rate 12 16 15 Respiratory Depth Blood Pressure Blood Pressure Mean Pulse Oximetry 95 95 95 Oxygen Delivery Method Sepsis Recent Fever Within 48 Hours Sepsis New/Unexplained Change in Mental Status Sepsis Action Taken by Nursing 07/08/23 15:50 07/08/23 16:00 07/08/23 16:10 Temperature Temperature Source Pulse Rate 128 H 127 H 124 H Pulse Rate from SpO2 Sensor 128 H 127 H 124 H Respiratory Rate 15 14 14 Respiratory Depth Blood Pressure Blood Pressure Mean Pulse Oximetry 95 95 95 Oxygen Delivery Method Sepsis Recent Fever Within 48 Hours Sepsis New/Unexplained Change in Mental Status Sepsis Action Taken by Nursing 07/08/23 16:20 07/08/23 16:30 07/08/23 16:40 Temperature Temperature Source Pulse Rate 119 H 113 H 109 H Pulse Rate from SpO2 Sensor 119 H 112 H 109 H Respiratory Rate 15 16 16 Respiratory Depth Blood Pressure Blood Pressure Mean Pulse Oximetry 94 93 95 Oxygen Delivery Method Sepsis Recent Fever Within 48 Hours Sepsis New/Unexplained Change in Mental Status Sepsis Action Taken by Nursing Laboratory Data 07/08/23 10:07 07/08/23 10:48 Lab Results 07/08/23 07/08/23 07/08/23 Range/Units 10:07 10:48 11:05 WBC 4.09 L (4.8-10.8) K/ul RBC 4.05 L (4.70-6.10) M/uL Hgb 12.8 L (14.0-18.0) g/dl Hct 39.2 L (42.0-52.0) % MCV 96.8 (80.0-100.0) fL MCH 31.6 (25.0-34.0) pg MCHC 32.7 (32.0-36.0) g/dL RDW Std Deviation 49.2 H (36.4-46.3) fL RDW Coeff of Dario 13.7 (11.5-14.5) % Plt Count 160 (130-400) K/uL MPV 12.4 (9.4-12.4) fL Immature Gran % (Auto) 0.5 % Neut % (Auto) 82.8 % Lymph % (Auto) 11.2 % [place] % (Auto) 4.6 % Eos % (Auto) 0.2 % Baso % (Auto) 0.7 % Neut # (Auto) 3.38 (1.40-6.50) K/uL Lymph # (Auto) 0.46 L (1.20-3.40) K/uL [place] # (Auto) 0.19 (0.11-0.59) K/uL Eos # (Auto) 0.01 (0.00-0.50) K/uL Baso # (Auto) 0.03 (0.00-0.20) K/uL Immature Gran # (Auto) 0.02 (0.01-0.20) K/uL Sodium 137 (136-145) mmol/L Potassium 4.0 (3.5-5.1) mmol/L Chloride 99 (98-107) mmol/L Carbon Dioxide 30 (21-32) mmol/L Anion Gap 8 (3-11) BUN 22 (6-23) mg/dl Creatinine 0.46 L (0.6-1.4) mg/dl Est Cr Clr Drug Dosing 155.2 ml/min Est GFR ( Amer) > 150.0 ml/min Est GFR (Non-Af Amer) 148.4 ml/min BUN/Creatinine Ratio 47.8 H (10-20) Glucose 117 H (70-99(Fasting)) mg/dl Lactate 1.6 (0.4-2.0) mmol/L Calcium 9.3 (8.6-10.3) mg/dl Magnesium 1.9 (1.7-2.4) mg/dl Total Bilirubin 0.6 (0.2-1.0) mg/dl Direct Bilirubin 0.1 (0-0.2) mg/dl AST 97 H (13-39) U/L ALT 82 H (7-52) U/L Alkaline Phosphatase 97 (34-104) U/L Troponin I High Sens 9.2 (0-20) pg/ml Total Protein 7.8 (6.0-8.3) gm/dl Albumin 3.9 (3.4-5.0) gm/dl Procalcitonin 0.84 H (0-0.5) ng/ml Urine Color Urine Appearance (Clear) Urine pH (4.5-7.5) Ur Specific [place] (1.000-1.030) Urine Protein (Negative) Urine Glucose (UA) (Negative) Urine Ketones (Negative) Urine Blood (Negative) Urine Nitrite (Negative) Urine Bilirubin (Negative) Urine Urobilinogen (Negative) Ur Leukocyte Esterase (Negative) Urine WBC (Auto) (0-5) /hpf Urine RBC (Auto) (0-4) /hpf U Hyaline Cast (Auto) (0-5) /lpf U Epithel Cells (Auto) (0-5) /lpf Urine Bacteria (Auto) (Negative) Acetaminophen (10-30) ug/ml Adenovirus (PCR) Not Detected (NotDetected) B. pertussis DNA (PCR) Not Detected (NotDetected) B.parapertussis DNA PCR Not Detected (NotDetected) C. pneumoniae DNA (PCR) Not Detected (NotDetected) Coronavirus OC43 (PCR) Not Detected (NotDetected) Coronavirus HKU1 (PCR) Not Detected (NotDetected) Coronavirus 229E (PCR) Not Detected (NotDetected) SARS-CoV-2 (PCR) Not Detected (NotDetected) Coronavirus NL63 (PCR) Not Detected (NotDetected) Human Metapneumovir PCR Not Detected (NotDetected) Influenza Type A (PCR) Not Detected (NotDetected) Influenza Type B (PCR) Not Detected (NotDetected) M. pneumoniae (PCR) Not Detected (NotDetected) Parainfluenza 1 (PCR) Not Detected (NotDetected) Parainfluenza 2 (PCR) Not Detected (NotDetected) Parainfluenza 3 (PCR) Not Detected (NotDetected) Parainfluenza 4 (PCR) Not Detected (NotDetected) RSV (PCR) Not Detected (NotDetected) Entero/Rhino (PCR) Not Detected (NotDetected) 07/08/23 07/08/23 Range/Units 13:45 15:03 WBC (4.8-10.8) K/ul RBC (4.70-6.10) M/uL Hgb (14.0-18.0) g/dl Hct (42.0-52.0) % MCV (80.0-100.0) fL MCH (25.0-34.0) pg MCHC (32.0-36.0) g/dL RDW Std Deviation (36.4-46.3) fL RDW Coeff of Dario (11.5-14.5) % Plt Count (130-400) K/uL MPV (9.4-12.4) fL Immature Gran % (Auto) % Neut % (Auto) % Lymph % (Auto) % [place] % (Auto) % Eos % (Auto) % Baso % (Auto) % Neut # (Auto) (1.40-6.50) K/uL Lymph # (Auto) (1.20-3.40) K/uL [place] # (Auto) (0.11-0.59) K/uL Eos # (Auto) (0.00-0.50) K/uL Baso # (Auto) (0.00-0.20) K/uL Immature Gran # (Auto) (0.01-0.20) K/uL Sodium (136-145) mmol/L Potassium (3.5-5.1) mmol/L Chloride (98-107) mmol/L Carbon Dioxide (21-32) mmol/L Anion Gap (3-11) BUN (6-23) mg/dl Creatinine (0.6-1.4) mg/dl Est Cr Clr Drug Dosing ml/min Est GFR ( Amer) ml/min Est GFR (Non-Af Amer) ml/min BUN/Creatinine Ratio (10-20) Glucose (70-99(Fasting)) mg/dl Lactate (0.4-2.0) mmol/L Calcium (8.6-10.3) mg/dl Magnesium (1.7-2.4) mg/dl Total Bilirubin (0.2-1.0) mg/dl Direct Bilirubin (0-0.2) mg/dl AST (13-39) U/L ALT (7-52) U/L Alkaline Phosphatase (34-104) U/L Troponin I High Sens (0-20) pg/ml Total Protein (6.0-8.3) gm/dl Albumin (3.4-5.0) gm/dl Procalcitonin (0-0.5) ng/ml Urine Color Dark Yellow Urine Appearance Clear (Clear) Urine pH 8.0 H (4.5-7.5) Ur Specific [place] 1.039 H (1.000-1.030) Urine Protein 1+ H (Negative) Urine Glucose (UA) Negative (Negative) Urine Ketones Negative (Negative) Urine Blood Negative (Negative) Urine Nitrite Negative (Negative) Urine Bilirubin Negative (Negative) Urine Urobilinogen Negative (Negative) Ur Leukocyte Esterase Negative (Negative) Urine WBC (Auto) 1-5 (0-5) /hpf Urine RBC (Auto) 5-10 H (0-4) /hpf U Hyaline Cast (Auto) 0 (0-5) /lpf U Epithel Cells (Auto) 10-20 H (0-5) /lpf Urine Bacteria (Auto) Negative (Negative) Acetaminophen < 3 L (10-30) ug/ml Adenovirus (PCR) (NotDetected) B. pertussis DNA (PCR) (NotDetected) B.parapertussis DNA PCR (NotDetected) C. pneumoniae DNA (PCR) (NotDetected) Coronavirus OC43 (PCR) (NotDetected) Coronavirus HKU1 (PCR) (NotDetected) Coronavirus 229E (PCR) (NotDetected) SARS-CoV-2 (PCR) (NotDetected) Coronavirus NL63 (PCR) (NotDetected) Human Metapneumovir PCR (NotDetected) Influenza Type A (PCR) (NotDetected) Influenza Type B (PCR) (NotDetected) M. pneumoniae (PCR) (NotDetected) Parainfluenza 1 (PCR) (NotDetected) Parainfluenza 2 (PCR) (NotDetected) Parainfluenza 3 (PCR) (NotDetected) Parainfluenza 4 (PCR) (NotDetected) RSV (PCR) (NotDetected) Entero/Rhino (PCR) (NotDetected) Administered Medications Discontinued Medications Baclofen (Baclofen 20 Mg Tab) 20 mg PEG ONE STA Stop: 07/08/23 14:33 Last Admin: 07/08/23 15:41 Dose: 20 mg Documented By: LEONIDAS Bromocriptine Mesylate (Bromocriptine Mesylate 2.5 Mg Tab) 2.5 mg PO ONE STA Stop: 07/08/23 14:33 Last Admin: 07/08/23 15:42 Dose: 2.5 mg Documented By: LEONIDAS Dantrolene Sodium (Dantrolene Sodium 25 Mg Cap) 100 mg PEG ONE STA Stop: 07/08/23 14:34 Last Admin: 07/08/23 15:41 Dose: 100 mg Documented By: LEONIDAS Gabapentin (Gabapentin 250 Mg/5 Ml 470 Ml Btl) 400 mg PEG ONE STA Stop: 07/08/23 14:34 Last Admin: 07/08/23 15:41 Dose: 400 mg Documented By: LEONIDAS Sodium Chloride (Nss) 500 mls @ 999 mls/hr IV .Q31M TAYLOR Stop: 07/08/23 10:45 Last Infusion: 07/08/23 11:19 Dose: Infused Documented By: Admin: 07/08/23 10:30 Dose: 999 mls/hr Documented By: JONI Sodium Chloride (Nss) 1,000 mls @ 999 mls/hr IV .Q1H1M TAYLOR Stop: 07/08/23 11:15 Last Infusion: 07/08/23 11:49 Dose: Infused Documented By: Admin: 07/08/23 10:29 Dose: 999 mls/hr Documented By: JONI Vancomycin HCl 1,000 mg/ (Sodium Chloride) 520 mls @ 200 mls/hr IV NOW ONE Stop: 07/08/23 13:20 Last Infusion: 07/08/23 14:27 Dose: Infused Documented By: Admin: 07/08/23 12:00 Dose: 200 mls/hr Documented By: LEONIDAS Piperacillin Sod/Tazobactam Sod (Zosyn) 4.5 gm in 100 mls @ 200 mls/hr IV NOW ONE Stop: 07/08/23 11:14 Last Infusion: 07/08/23 12:00 Dose: Infused Documented By: Admin: 07/08/23 11:29 Dose: 200 mls/hr Documented By: LEONIDAS Acetaminophen (Ofirmev) 1,000 mg in 100 mls @ 400 mls/hr IV NOW STA Stop: 07/08/23 16:19 Last Infusion: 07/08/23 16:30 Dose: Infused Documented By: Admin: 07/08/23 16:12 Dose: 400 mls/hr Documented By: SAROJ Ioversol (Optiray 320 500ml) 94 ml IV ONCE ONE Stop: 07/08/23 12:39 Last Admin: 07/08/23 12:39 Dose: 94 ml Documented By: ALISON Imaging Data Radiologist's Impression: Chest X-Ray 07/08/23 10:06 XR chest 1V portable HISTORY: 32 years-old Male Sepsis acute sepsis COMPARISON: 05/06/2023 TECHNIQUE: AP view of the chest FINDINGS: Tracheostomy cannula overlies the midline at the level of the clavicular heads. Cardiomediastinal and hilar silhouettes are within normal limits. Shunt catheter projects over the left chest, neck and abdomen with imaged portions appearing intact. No pneumothorax, pleural effusion or airspace consolidation. The bones appear grossly intact. A gastrostomy tube is noted. IMPRESSION: No acute process. ACT 112: Negative or not required by law. The above report was generated using voice recognition software. It may contain grammatical, syntax or spelling errors. Electronically signed by: Corey Rodgers M.D. 07/08/2023 12:02 PM Abdomen/Pelvis CT 07/08/23 11:[address] WITH IV CONTRAST CT DOSE: 828.9 mGy.cm HISTORY: Acute sepsis with elevated LFTs sacral decubitis ulcer, LFT elevation, sepsis TECHNIQUE: Multiaxial CT images of the abdomen and pelvis were performed following the IV administration of 94 cc of Optiray, A dose lowering technique was utilized adhering to the principles of ALARA. COMPARISON STUDY: 04/19/2023 FINDINGS: Motion degraded exam. Study is also limited secondary to upper cavity positioning. Trace left pleural effusion. Mild dependent bibasilar opacities with bronchial wall thickening and left basilar mucous plugging. The spleen, pancreas, adrenal glands and liver appear unremarkable. Contracted gallbladder. Unremarkable kidneys. Nonspecific circumferential urinary bladder wall thickening. There is a more focal area of wall thickening/increased enhancement involving the left posterolateral urinary bladder on image 349 measuring 2.2 cm. Unremarkable abdominal aorta. No bowel obstruction. Nonspecific circumferential wall thickening of the rectum. There is mild gaseous distention of the colon with moderate colonic fecal retention. Pneumatosis coli of the cecum, image 332. Noninflamed appendix. A gastrostomy tube is in place. Small amount of free pelvic fluid. Shunt catheter distal tip projects in the left inferior pelvis. 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 No acute fracture. Sacral decubitus ulcer measures up to approximately 3.6 cm transversely. There is associated subcutaneous edema without drainable fluid collection or adjacent osseous erosion. Additional subcutaneous edema within the left gluteal tissues. IMPRESSION: 1. Pneumatosis coli of the cecum of unknown clinical significance. No portal venous air identified. 2. No bowel obstruction or pneumoperitoneum. 3. Normal appendix. 4. Mild bibasilar densities favor atelectasis. Trace left pleural effusion with left basilar mucous plugging. 5. Nonspecific urinary bladder wall thickening, greatest within the left posterolateral distribution. Findings could be correlated with cystoscopy to exclude a small mucosal lesion. 6. Sacral decubitus ulcer with cellulitis. No abscess or CT evidence of osteomyelitis. 7. Additional findings as above. ACT 112: Negative or not required by law. The above report was generated using voice recognition software. It may contain grammatical, syntax or spelling errors. Electronically signed by: Corey Rodgers M.D. 07/08/2023 1:05 PM Discharge Plan Visit Data Chief Complaint: Wound ED Provider: Ricky Youssef Discharge Problem: Sepsis, Pneumatosis coli, Decubital ulcer Forms Stand Alone Forms: [facility] [place] [employer] Prescriptions Prescriptions: No Action scopolamine base 1 mg over 3 days Patch 3 Day 1 patch TRANSDERMAL Q3D Eliquis 5 mg Tablet 5 mg feeding tube BID dantrolene 25 mg Capsule 100 mg PEG Q6 Qty: 120 11RF gabapentin 250 mg/5 mL Solution 400 mg PEG Q6 Qty: 250 11RF Rx Instructions: 8 ml dose bromocriptine 2.5 mg Tablet 2.5 mg feeding tube Q6 Qty: 120 11RF acetaminophen 325 mg/10.15 mL Suspension 650 mg PEG Q6 Qty: 250 0RF bisacodyl 10 mg Suppository 10 mg WA .EVERY 24 HOURS PRN (Reason: Constipation) melatonin 3 mg Tablet 3 mg feeding tube HS ascorbic acid (vitamin C) 500 mg Tablet 500 mg PO DAILY ferrous sulfate 300 mg (60 mg iron)/5 mL Liquid 325 mg feeding tube Q OTHER DAY multivitamin [Multi-Day] Tablet 1 tab feeding tube QAM polyethylene glycol 3350 [Miralax] 17 gram Powder In Packet 17 g feeding tube BID zinc sulfate 50 mg zinc (220 mg) Tablet 50 mg PO DAILY Eliquis 5 mg tablet 5 mg feeding tube BID metoprolol tartrate 25 mg tablet 25 mg PEG Q12 Proheal 30 ml feeding tube BID Rx Instructions: mix well with 100 ml water baclofen 20 mg tablet 20 mg feeding tube Q8 Jevity 1.5 Lance 0.06 gram-1.5 kcal/mL Liquid 1 ea feeding tube Q4 Rx Instructions: 240 ml bolus q4 hours for total volume of 1440 ml per day water Liquid 1 ea UD Rx Instructions: 200 ml of water flush every 4 hours via gravity total 2000 ml magnesium hydroxide [Milk of Magnesia] 400 mg/5 mL Suspension 2,400 mg PO DAILY PRN (Reason: Constipation) Rx Instructions: give if no BM on the morning of the 3rd day Fleet Enema 19-7 gram/118 mL Enema 118 ml WA .MORNING OF 4TH DAY PRN (Reason: Constipation) Rx Instructions: gvie in the morning of the 4th day without a BM Santyl 250 unit/gram Ointment 1 applic TOPICAL .EVERY DAY SHIFT Rx Instructions: cleanse with normal saline,apply Santyl to base of wound,secure with borered dressing. Santyl 250 unit/gram Ointment 1 applic TOPICAL DIRECTED PRN (Reason: soilage/dislodgement) Rx Instructions: apply to sacrum topically as neded for soilage/dislodgement. cleanse with normal saline,apply Santyl to base of wound,secure with bordered dressing Referrals Referrals: Edgardo Pruett [Primary Care Provider] -
[2023-07-08 10:31] LABS: Basophils # (auto) 0.03 K/uL (0.00-0.20); Basophils % (auto) 0.7 %; Eosinophils # (auto) 0.01 K/uL (0.00-0.50); Eosinophils % (auto) 0.2 %; Hematocrit (blood only) 39.2 % (42.0-52.0); Hemoglobin 12.8 g/dl (14.0-18.0); Immature Granulocytes # (auto) 0.02 K/uL (0.01-0.20); Immature Granulocytes % (auto) 0.5 %; Lymphocytes # (auto) 0.46 K/uL (1.20-3.40); Lymphocytes % (auto) 11.2 %; Mean Corpuscular Hemoglobin 31.6 pg (25.0-34.0); Mean Corpuscular Hgb Conc 32.7 g/dL (32.0-36.0); Mean Corpuscular Volume 96.8 fL (80.0-100.0); Mean Platelet Volume 12.4 fL (9.4-12.4); Monocytes # (auto) 0.19 K/uL (0.11-0.59); Monocytes % (auto) 4.6 %; Neutrophils # (auto) 3.38 K/uL (1.40-6.50); Neutrophils % (auto) 82.8 %; Platelet Count 160 K/uL (130-400); RDW Coefficient of Variation 13.7 % (11.5-14.5); RDW Standard Deviation 49.2 fL (36.4-46.3); Red Blood Count 4.05 M/uL (4.70-6.10); White Blood Count 4.09 K/ul (4.8-10.8)
[2023-07-08] MEDS ORDERED: PIPERACILLIN/TAZOBACTAM 4.5 GM/100 ML BAG IV ONE (10:45)
[2023-07-08] MEDS ORDERED: VANCOMYCIN HCL 1,000 MG in SODIUM CHLORIDE 0.9% 500 ML IV ONE (10:45)
[2023-07-08] MEDS ORDERED: VANCOMYCIN CONSULT ACTIVE PRN (10:45)
[2023-07-08 11:39] LABS: Alanine Aminotransferase 82 U/L (7-52); Albumin Level 3.9 gm/dl (3.4-5.0); Alkaline Phosphatase 97 U/L (34-104); Anion Gap 8 (3-11); Aspartate Aminotransferase 97 U/L (13-39); BUN Creatinine Ratio 47.8 (10-20); Bilirubin Direct 0.1 mg/dl (0-0.2); Bilirubin,Total 0.6 mg/dl (0.2-1.0); Blood Urea Nitrogen 22 mg/dl (6-23); Calcium 9.3 mg/dl (8.6-10.3); Carbon Dioxide 30 mmol/L (21-32); Chloride 99 mmol/L (98-107); Creatinine Clr Calc Pharmacy 155.2 ml/min; Est GFR (African American) > 150.0 ml/min; Est GFR (Non-African American) 148.4 ml/min; Glucose 117 mg/dl (70-99(Fasting)); Magnesium 1.9 mg/dl (1.7-2.4); Sodium 137 mmol/L (136-145); Total Protein 7.8 gm/dl (6.0-8.3); Troponin I High Sensitivity 9.2 pg/ml (0-20)
--- NOTE | 2023-07-08 12:03 | XRay Report ---
XR chest 1V portable HISTORY: 32 years-old Male Sepsis acute sepsis COMPARISON: 05/06/2023 TECHNIQUE: AP view of the chest FINDINGS: Tracheostomy cannula overlies the midline at the level of the clavicular heads. Cardiomediastinal and hilar silhouettes are within normal limits. Shunt catheter projects over the left chest, neck and ab domen with imaged portions appearing intact. No pneumothorax, pleural effusion or airspace consolidat ion. The bones appear grossly intact. A gastrostomy tube is noted. IMPRESSION: No acute process. ACT 112: Negative or not required by law. The above report was generated using voice recognition software. It may contain grammatical, syntax o r spelling errors. Electronically signed by: Corey Rodgers M.D. 07/08/2023 12:02 PM
[2023-07-08] MEDS ORDERED: OPTIRAY 320 500ml IV ONE (12:38)
[2023-07-08 12:41] LABS: Adenovirus PCR Not Detected (NotDetected); Bordetella parapertussis PCR Not Detected (NotDetected); Bordetella pertussis PCR Not Detected (NotDetected); Chlamydia pneumoniae PCR Not Detected (NotDetected); Coronavirus 229E PCR Not Detected (NotDetected); Coronavirus CoV-2 (COVID19)PCR Not Detected (NotDetected); Coronavirus HKU1 PCR Not Detected (NotDetected); Coronavirus NL63 PCR Not Detected (NotDetected); Coronavirus OC43PCR Not Detected (NotDetected); Human Metapneumovirus PCR Not Detected (NotDetected); Influenza A PCR Not Detected (NotDetected); Influenza B PCR Not Detected (NotDetected); Mycoplasma pneumoniae PCR Not Detected (NotDetected); Parainfluenza Virus 1 PCR Not Detected (NotDetected); Parainfluenza Virus 2 PCR Not Detected (NotDetected); Parainfluenza Virus 3 PCR Not Detected (NotDetected); Parainfluenza Virus 4 PCR Not Detected (NotDetected); Respiratory Syncytial VirusPCR Not Detected (NotDetected); Rhinovirus/Enterovirus PCR Not Detected (NotDetected)
--- NOTE | 2023-07-08 13:07 | CT Scan Report ---
ABDOMEN AND PELVIS CT WITH IV CONTRAST CT DOSE: 828.9 mGy.cm HISTORY: Acute sepsis with elevated LFTs sacral decubitis ulcer, LFT elevation, sepsis TECHNIQUE: Multiaxial CT images of the abdomen and pelvis were performed following the IV administrat ion of 94 cc of Optiray, A dose lowering technique was utilized adhering to the principles of ALARA. COMPARISON STUDY: 04/19/2023 FINDINGS: Motion degraded exam. Study is also limited secondary to upper cavity positioning. Trace le ft pleural effusion. Mild dependent bibasilar opacities with bronchial wall thickening and left basil ar mucous plugging. The spleen, pancreas, adrenal glands and liver appear unremarkable. Contracted gallbladder. Unremarka ble kidneys. Nonspecific circumferential urinary bladder wall thickening. There is a more focal area of wall thickening/increased enhancement involving the left posterolateral urinary bladder on image 3 49 measuring 2.2 cm. Unremarkable abdominal aorta. No bowel obstruction. Nonspecific circumferential wall thickening of the rectum. There is mild gaseou s distention of the colon with moderate colonic fecal retention. Pneumatosis coli of the cecum, image 332. Noninflamed appendix. A gastrostomy tube is in place. Small amount of free pelvic fluid. Shunt catheter distal tip projects in the left inferior pelvis. Chronic L5 pars defects with grade 1 genet listhesis. No acute fracture. Sacral decubitus ulcer measures up to approximately 3.6 cm transversely . There is associated subcutaneous edema without drainable fluid collection or adjacent osseous erosi on. Additional subcutaneous edema within the left gluteal tissues. IMPRESSION: 1. Pneumatosis coli of the cecum of unknown clinical significance. No portal venous air identified. 2. No bowel obstruction or pneumoperitoneum. 3. Normal appendix. 4. Mild bibasilar densities favor atelectasis. Trace left pleural effusion with left basilar mucous p lugging. 5. Nonspecific urinary bladder wall thickening, greatest within the left posterolateral distribution. Findings could be correlated with cystoscopy to exclude a small mucosal lesion. 6. Sacral decubitus ulcer with cellulitis. No abscess or CT evidence of osteomyelitis. 7. Additional findings as above. ACT 112: Negative or not required by law. The above report was generated using voice recognition software. It may contain grammatical, syntax o r spelling errors. Electronically signed by: Corey Rodgers M.D. 07/08/2023 1:05 PM
[2023-07-08 14:01] LABS: Appearance Urine Clear (Clear); Bacteria Urine Automated Negative (Negative); Bilirubin Urine Negative (Negative); Blood Urine Negative (Negative); Cast Urine Automated 0 /lpf (0-5); Color Urine Dark Yellow; Glucose Urine UA Negative (Negative); Ketones Urine Negative (Negative); Leukocyte Esterase Urine Negative (Negative); Nitrite Urine Negative (Negative); Specific Gravity Urine 1.039 (1.000-1.030); Urobilinogen Urine Negative (Negative)
--- NOTE | 2023-07-08 14:10 | Surgery Consultation ---
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 CT scan demonstrated the incidental finding of pneumatosis of the cecum. There is no evidence of perforation or fluid around the cecum. Lactic acid is normal. On exam, he has no tenderness, guarding, peritoneal signs of his abdomen. I would not recommend any surgical intervention at this time, as this appears to be benign pneumatosis. He is being admitted to the hospital will be treated for his sacral infection. We will continue to follow and monitor. History of Present Illness Reason for Consultation: pneumatosis of cecum Requesting Physician: Ricky Youssef MD Attending Physician: Ricky Youssef MD History of Present Illness This is a 32-year-old male with history of nontraumatic rupture of cerebral aneurysm, paraplegia, now nonverbal, chronic contracture, tracheostomy and PEG tube dependence presenting for concern for sepsis. Patient was called from his facility for concern for sepsis from a sacral decubitus ulcer. Patient had this decubitus ulcer of the sacrum for unknown amount of time. He presents to the em ergency department with tachycardia, borderline blood pressures, febrile [address] scan of the abdomen pelvis demonstrates pneumatosis of the cecum without evidence of perforation or fluid surrounding the cecum. Allergies Allergy/AdvReac Type Severity Reaction Status Date / Time No Known Allergies Allergy Unverified 04/04/23 09:03 Home Medications Medication Instructions Recorded Confirmed Type apixaban 5 mg tablet (Eliquis) 5 mg feeding tube BID 04/02/23 05/04/23 History scopolamine base 1 mg over 3 days 1 patch transdermal Q3D 04/02/23 05/04/23 History transdermal patch acetaminophen 325 mg/10.15 mL oral 650 mg (20.3 mL) PEG Q6 #250 mL 04/17/23 05/04/23 Rx suspension baclofen 10 mg tablet 20 mg (2 x 10 mg) feeding tube Q6H 04/17/23 05/04/23 Rx #1 tab bromocriptine 2.5 mg tablet 2.5 mg feeding tube Q6 #120 tabs 04/17/23 05/04/23 Rx dantrolene 25 mg capsule 100 mg (4 x 25 mg) PEG Q6 #120 caps 04/17/23 05/04/23 Rx gabapentin 250 mg/5 mL oral 400 mg (8 mL) PEG Q6 #250 mL 04/17/23 05/04/23 Rx solution metoprolol tartrate 25 mg tablet 25 mg PEG BID #60 tabs 04/17/23 05/04/23 Rx multivit and minerals-ferrous 15 ml PEG QAM 30 days #450 mL 04/17/23 05/04/23 Rx gluconate 9 mg iron/15 mL oral liquid (Centrum) Milk of Magnesia 30 ml G-tube BID constipation 05/04/23 05/04/23 History bisacodyl 10 mg rectal suppository 10 mg ID DAILY PRN Constipation 05/04/23 05/04/23 History melatonin 3 mg tablet 3 mg PO HS insomnia 05/04/23 05/04/23 History mineral oil 118 ml ID DAILY PRN constipation 05/04/23 05/04/23 History polyethylene glycol 3350 17 gram 17 g PO BID constipation 05/04/23 05/04/23 Hi story oral powder packet (Miralax) Tube Feeding Water Flush 150 ml PEG Q4H ##0 05/08/23 Rx nut.tx.impaired digest fxn 0.068 250 ea PEG QID #6,000 mL 05/08/23 Rx gram-1.5 kcal/mL oral liquid (Peptamen 1.5) Patient History Medical History History of DVT (deep vein thrombosis) Moderate protein-calorie malnutrition History of nontraumatic rupture of cerebral aneurysm History of traumatic brain injury Surgical History S/P [employer] shunt Social History Smoking Status: Unknown if ever smoked Second Hand Exposure: No; Do You Dip or Chew Tobacco: No; Hx Alcohol Use: No Hx Substance Use: No Preferred Language: Welsh Communication Ability: Unable Suspension Cord Tier Required: No Beliefs That Will Affect Care: None Current Living Situation: [facility] Feels Safe at Home: Yes Assistive Devices: Other Review of Systems Review of Systems: Unobtainable due to cognitive status Physical Exam Constitutional: + thin, + frail appearing and + dishevel ed; no acute distress Nonverbal, no communication Neck: trachea midline, no thyromegaly Respiratory: normal respiratory effort; no respiratory distress Cardiovascular: Rate/Rhythm: regular rhythm and + tachycardic Gastrointestinal (Abdomen): Inspection/Auscultation: abdomen normal to inspection; abdomen not distended Percussion/Palpation: abdomen soft; abdomen nontender, no guarding and abdomen not rigid Skin: no rashes, warm and dry Results & Data Vital Signs (Past 12 Hours) Vital Signs Temp Pulse Resp BP Pulse Ox O2 Del Method 07/08/23 13:56 119 H 07/08/23 13:40 115 H 18 94 07/08/23 13:30 114 H 18 95 07/08/23 13:20 117 H 16 95 07/08/23 13:10 116 H 13 94 07/08/23 13:00 111/77 07/08/23 13:00 121 H 18 95 07/08/23 12:50 123 H 18 96 07/08/23 12:45 122 H 19 95 07/08/23 12:30 105/72 07/08/23 12:30 117 H 16 95 07/08/23 12:20 118 H 18 96 07/08/23 12:10 119 H 17 96 07/08/23 12:00 118 H 16 97 07/08/23 11:50 120 H 17 97 07/08/23 11:40 122 H 20 96 07/08/23 11:32 109/68 07/08/23 11:32 119 H 21 97 07/08/23 11:30 118 H 21 96 07/08/23 11:20 113 H 15 95 07/08/23 11:10 113 H 21 07/08/23 11:00 113 H 18 07/08/23 11:00 111/69 07/08/23 10:50 112 H 20 07/08/23 10:40 112 H 21 07/08/23 10:30 110 H 22 07/08/23 10:25 96 Room Air 07/08/23 10:20 111 H 23 07/08/23 10:10 115 H 24 07/08/23 10:00 113 H 24 07/08/23 10:00 99/71 L 07/08/23 09:55 38 C H 112 H 18 97/72 L 96 Room Air 07/08/23 09:54 111 H 07/08/23 09:50 112 H 25 H 07/08/23 09:48 97/72 L 07/08/23 09:48 112 H 25 H Laboratory Results 07/08/23 07/08/23 07/08/23 Range/Units 13:45 11:05 10:48 WBC (4.8-10.8) K/ul RBC (4.70-6.10) M/uL Hgb (14.0-18.0) g/dl Hct (42.0-52.0) % MCV (80.0-100.0) fL MCH (25.0-34.0) pg MCHC (32.0-36.0) g/dL RDW Std Deviation (36.4-46.3) fL RDW Coeff of Dario (11.5-14.5) % Plt Count (130-400) K/uL MPV (9.4-12.4) fL Immature Gran % (Auto) % Neut % (Auto) % Lymph % (Auto) % Montgomery % (Auto) % Eos % (Auto) % Baso % (Auto) % Neut # (Auto) (1.40-6.50) K/uL Lymph # (Auto) (1.20-3.40) K/uL Montgomery # (Auto) (0.11-0.59) K/uL Eos # (Auto) (0.00-0.50) K/uL Baso # (Auto) (0.00-0.20) K/uL Immature Gran # (Auto) (0.01-0.20) K/uL Sodium 137 (136-145) mmol/L Potassium 4.0 (3.5-5.1) mmol/L Chloride 99 (98-107) mmol/L Carbon Dioxide 30 (21-32) mmol/L Anion Gap 8 (3-11) BUN 22 (6-23) mg/dl Creatinine 0.46 L (0.6-1.4) mg/dl Est Cr Clr Drug Dosing 155.2 ml/min Est GFR ( Amer) > 150.0 ml/min Est GFR (Non-Af Amer) 148.4 ml/min BUN/Creatinine Ratio 47.8 H (10-20) Glucose 117 H (70-99(Fasting)) mg/dl Lactate (0.4-2.0) mmol/L Calcium 9.3 (8.6-10.3) mg/dl Magnesium 1.9 (1.7-2.4) mg/dl Total Bilirubin 0.6 (0.2-1.0) mg/dl Direct Bilirubin 0.1 (0-0.2) mg/dl AST 97 H (13-39) U/L ALT 82 H (7-52) U/L Alkaline Phosphatase 97 (34-104) U/L Troponin I High Sens 9.2 (0-20) pg/ml Total Protein 7.8 (6.0-8.3) gm/dl Albumin 3.9 (3.4-5.0) gm/dl Procalcitonin (0-0.5) ng/ml Urine Color Pending Urine Appearance Pending Urine pH Pending Ur Specific Melbeta Pending Urine Protein Pending Urine Glucose (UA) Pending Urine Ketones Pending Urine Blood Pending Urine Nitrite Pending Urine Bilirubin Pending Urine Urobilinogen Pending Ur Leukocyte Esterase Pending Adenovirus (PCR) Not Detected (NotDetected) B. pertussis DNA (PCR) Not Detected (NotDetected) B.parapertussis DNA PCR Not Detected (NotDetected) C. pneumoniae DNA (PCR) Not Detected (NotDetected) Coronavirus OC43 (PCR) Not Detected (NotDetected) Coronavirus HKU1 (PCR) Not Detected (NotDetected) Coronavirus 229E (PCR) Not Detected (NotDetected) SARS-CoV-2 (PCR) Not Detected (NotDetected) Coronavirus NL63 (PCR) Not Detected (NotDetected) Human Metapneumovir PCR Not Detected (NotDetected) Influenza Type A (PCR) Not Detected (NotDetected) Influenza Type B (PCR) Not Detected (NotDetected) M. pneumoniae (PCR) Not Detected (NotDetected) Parainfluenza 1 (PCR) Not Detected (NotDetected) Parainfluenza 2 (PCR) Not Detected (NotDetected) Parainfluenza 3 (PCR) Not Detected (NotDetected) Parainfluenza 4 (PCR) Not Detected (NotDetected) RSV (PCR) Not Detected (NotDetected) Entero/Rhino (PCR) Not Detected (NotDetected) 07/08/23 Range/Units 10:07 WBC 4.09 L (4.8-10.8) K/ul RBC 4.05 L (4.70-6.10) M/uL Hgb 12.8 L (14.0-18.0) g/dl Hct 39.2 L (42.0-52.0) % MCV 96.8 (80.0-100.0) fL MCH 31.6 (25.0-34.0) pg MCHC 32.7 (32.0-36.0) g/dL RDW Std Deviation 49.2 H (36.4-46.3) fL RDW Coeff of Dario 13.7 (11.5-14.5) % Plt Count 160 (130-400) K/uL MPV 12.4 (9.4-12.4) fL Immature Gran % (Auto) 0.5 % Neut % (Auto) 82.8 % Lymph % (Auto) 11.2 % Montgomery % (Auto) 4.6 % Eos % (Auto) 0.2 % Baso % (Auto) 0.7 % Neut # (Auto) 3.38 (1.40-6.50) K/uL Lymph # (Auto) 0.46 L (1.20-3.40) K/uL Montgomery # (Auto) 0.19 (0.11-0.59) K/uL Eos # (Auto) 0.01 (0.00-0.50) K/uL Baso # (Auto) 0.03 (0.00-0.20) K/uL Immature Gran # (Auto) 0.02 (0.01-0.20) K/uL Sodium (136-145) mmol/L Potassium (3.5-5.1) mmol/L Chloride (98-107) mmol/L Carbon Dioxide (21-32) mmol/L Anion Gap (3-11) BUN (6-23) mg/dl Creatinine (0.6-1.4) mg/dl Est Cr Clr Drug Dosing ml/min Est GFR ( Amer) ml/min Est GFR (Non-Af Amer) ml/min BUN/Creatinine Ratio (10-20) Glucose (70-99(Fasting)) mg/dl Lactate 1.6 (0.4-2.0) mmol/L Calcium (8.6-10.3) mg/dl Magnesium (1.7-2.4) mg/dl Total Bilirubin (0.2-1.0) mg/dl Direct Bilirubin (0-0.2) mg/dl AST (13-39) U/L ALT (7-52) U/L Alkaline Phosphatase (34-104) U/L Troponin I High Sens (0-20) pg/ml Total Protein (6.0-8.3) gm/dl Albumin (3.4-5.0) gm/dl Procalcitonin 0.84 H (0-0.5) ng/ml Urine Color Urine Appearance Urine pH Ur Specific Melbeta Urine Protein Urine Glucose (UA) Urine Ketones Urine Blood Urine Nitrite Urine Bilirubin Urine Urobilinogen Ur Leukocyte Esterase Adenovirus (PCR) (NotDetected) B. pertussis DNA (PCR) (NotDetected) B.parapertussis DNA PCR (NotDetected) C. pneumoniae DNA (PCR) (NotDetected) Coronavirus OC43 (PCR) (NotDetected) Coronavirus HKU1 (PCR) (NotDetected) Coronavirus 229E (PCR) (NotDetected) SARS-CoV-2 (PCR) (NotDetected) Coronavirus NL63 (PCR) (NotDetected) Human Metapneumovir PCR (NotDetected) Influenza Type A (PCR) (NotDetected) Influenza Type B (PCR) (NotDetected) M. pneumoniae (PCR) (NotDetected) Parainfluenza 1 (PCR) (NotDetected) Parainfluenza 2 (PCR) (NotDetected) Parainfluenza 3 (PCR) (NotDetected) Parainfluenza 4 (PCR) (NotDetected) RSV (PCR) (NotDetected) Entero/Rhino (PCR) (NotDetected) Diagnostic Findings ABDOMEN AND PELVIS CT WITH IV CONTRAST CT DOSE: 828.9 mGy.cm HISTORY: Acute sepsis with elevated LFTs sacral decubitis ulcer, LFT elevation, sepsis TECHNIQUE: Multiaxial CT images of the abdomen and pelvis were performed following the IV administration of 94 cc of Optiray, A dose lowering technique was utilized adhering to the principles of ALARA. COMPARISON STUDY: 04/19/2023 FINDINGS: Motion degraded exam. Study is also limited secondary to upper cavity positioning. Trace left pleural effusion. Mild dependent bibasilar opacities with bronchial wall thickening and left basilar mucous plugging. The spleen, pancreas, adrenal glands and liver appear unremarkable. Contracted gallbladder. Unremarkable kidneys. Nonspecific circumferential urinary bladder wall thickening. There is a more focal area of wall thickening/increased enhancement involving the left posterolateral urinary bladder on image 349 measuring 2.2 cm. Unremarkable abdominal aorta. No bowel obstruction. Nonspecific circumferential wall thickening of the rectum. There is mild gaseous distention of the colon with moderate colonic fecal retention. Pneumatosis coli of the cecum, image 332. Noninflamed appendix. A gastrostomy tube is in place. Small amount of free pelvic fluid. Shunt catheter distal tip projects in the left inferior pelvis. 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 No acute fracture. Sacral decubitus ulcer measures up to approximately 3.6 cm transversely. There is associated subcutaneous edema without drainable fluid collection or adjacent osseous erosion. Additional subcutaneous edema within the left gluteal tissues. IMPRESSION: 1. Pneumatosis coli of the cecum of unknown clinical significance. No portal venous air identified. 2. No bowel obstruction or pneumoperitoneum. 3. Normal appendix. 4. Mild bibasilar densities favor atelectasis. Trace left pleural effusion with left basilar mucous plugging. 5. Nonspecific urinary bladder wall thickening, greatest within the left posterolateral distribution. Findings could be correlated with cystoscopy to exclude a small mucosal lesion. 6. Sacral decubitus ulcer with cellulitis. No abscess or CT evidence of osteomyelitis. 7. Additional findings as above.
--- NOTE | 2023-07-08 14:19 | History & Physical Report ---
Date of Service July 08, 2023 Assessment & Plan (1) Sepsis: Plan: Mother - Sharlene Viveros [phone] reports she has guardianship and needs updated daily. His Aunt is also shared guardian but number is not on file. Suspect source is his sacral ulcer. At risk of pneumonia however chest x-ray is unremarkable. Urinalysis unremarkable. Lactate within normal limits. Further IV fluids resuscitation not required. Possible some of his temperature and tachycardia related to missing his midday medications (patient has severe autonomic dysfunction vs NMS with withdrawal of dopamine agonists) given relatively normal white blood count however given risk factors and current infection assumption is the infection is driving his abnormal vital signs. Empiric antibiotics with vancomycin and Zosyn Follow-up blood cultures (2) Stage IV pressure ulcer of sacral region: Plan: Vancomycin/Zosyn Defer to surgery regarding debridement Consult wound care nurse (3) Transaminitis: Plan: Continue to monitor. No liver abnormality on CT. Acetaminophen level normal. Dantrolene is hepatotoxic however requires this for chronic spasticity and malignant hyperthermia - will continue for now although may need to be reconsidered if AST/ALT continue to rise without alternative explanation (4) Pneumatosis coli: Plan: Management per surgery (5) History of nontraumatic rupture of cerebral aneurysm: Plan: Patient is nonverbal at baseline with chronic contractures in all 4 extremities (6) Cardiomyopathy: Plan: Continue metoprolol Switch from IV fluids to PEG feeds tomorrow (7) Tracheostomy status: Plan: Suctioning tracheostomy q2h and as needed. Next due to be changed on . (8) Decubitus ulcer of calf, unstageable: Plan: Eschar present with no surrounding cellulitis. (9) Autonomic dysfunction: Plan: Continue dantrolene and bromocriptine (10) Severe protein-calorie malnutrition: Plan: Consult dietary (11) History of DVT (deep vein thrombosis): Plan: Continue Eliquis Plan VTE prophylaxis - Eliquis via PEG Diet - n.p.o., consult dietary for tube feeds Disposition - admit to PCU Admission and Anticipated Discharge Date Admission Date: July 08, 2023 History of Present Illness Chief Complaint: Worsening sacral ulcer Primary Care Provider: [facility] Ry Viveros is a 32-year-old male presents to the ER due to worsening sacral ulcer. Unable to get any history from the patient due to his nonverbal status. History obtained from ER/[facility] notes and discussion with his mother who is his guardian over the phone. Sacral ulcer was present during his admissions in March however has been progressively getting worse during that time therefore was sent to the ER. He was notably recently on cefepime for 10 days which stopped on June 28 for a respiratory (presumably for the Pseudomonas) infection. He has a complex medical history including chronic trach, PEG tube, nonverbal status following ruptured brain aneurysm and subsequent craniotomy/hematoma evacuation during hospitalization from August-February 2023. On discussion with his mother and on review of previous notes if he misses his usual medications he declines quickly with rigid, tachycardic and hyperthermic due to severe autonomic dysfunction. He received his 6 AM medications today but not his midday medications. Allergies Allergy/AdvReac Type Severity Reaction Status Date / Time No Known Allergies Allergy Unverified 07/08/23 15:52 Home Medications Medication Instructions Recorded Confirmed Type scopolamine base 1 mg over 3 days 1 patch transdermal Q3D 04/02/23 07/08/23 History transdermal patch acetaminophen 325 mg/10.15 mL oral 650 mg (20.3 mL) PEG Q6 #250 mL 04/17/23 07/08/23 Rx suspension bromocriptine 2.5 mg tablet 2.5 mg feeding tube Q6 #120 tabs 04/17/23 07/08/23 Rx dantrolene 25 mg capsule 100 mg (4 x 25 mg) PEG Q6 #120 caps 04/17/23 07/08/23 Rx gabapentin 250 mg/5 mL oral 400 mg (8 mL) PEG Q6 #250 mL 04/17/23 07/08/23 Rx solution bisacodyl 10 mg rectal suppository [address] .EVERY 24 HOURS PRN 05/04/23 07/08/23 History Constipation Proheal 30 ml feeding tube BID 07/08/23 07/08/23 History apixaban 5 mg tablet (Eliquis) 5 mg feeding tube BID 07/08/23 07/08/23 History ascorbic acid (vitamin C) 500 mg 500 mg PO DAILY 07/08/23 07/08/23 History tablet baclofen 20 mg tablet 20 mg feeding tube Q8 07/08/23 07/08/23 History collagenase clostridium histo. 250 1 applic topical .EVERY DAY SHIFT 07/08/23 07/08/23 History unit/gram topical ointment (Santyl) collagenase clostridium histo. 250 1 applic topical DIRECTED PRN 07/08/23 07/08/23 History unit/gram topical ointment (Santyl) soilage/dislodgement ferrous sulfate 300 mg (60 mg 325 mg feeding tube Q OTHER DAY 07/08/23 07/08/23 History iron)/5 mL oral liquid lactose-reduced food with fiber 1 ea feeding tube Q4 07/08/23 07/08/23 History 0.06 gram-1.5 kcal/mL oral liquid (Jevity 1.5 Lance) magnesium hydroxide 400 mg/5 mL 2,400 mg PO DAILY PRN Constipation 07/08/23 07/08/23 History oral suspension (Milk of Magnesia) melatonin 3 mg tablet 3 mg feeding tube HS 07/08/23 07/08/23 History metoprolol tartrate 25 mg tablet 25 mg PEG Q12 07/08/23 07/08/23 History multivitamin 1 tab feeding tube QAM 07/08/23 07/08/23 History polyethylene glycol 3350 17 gram 17 g feeding tube BID 07/08/23 07/08/23 History oral powder packet (Miralax) sodium phosphates 19 gram-[address]MORNING OF 4TH DAY PRN 07/08/23 07/08/23 History gram/118 mL enema (Fleet Enema) Constipation water 1 ea UD 07/08/23 07/08/23 History zinc sulfate 50 mg zinc (220 mg) 50 mg PO DAILY 07/08/23 07/08/23 History tablet Past Med/Surg History Medical History (Updated 07/09/23 @ 01:52 by Wilner Holland MD) History of DVT (deep vein thrombosis) Moderate protein-calorie malnutrition History of nontraumatic rupture of cerebral aneurysm History of traumatic brain injury Surgical History S/P INCLINOMETER TESTER shunt Social History Smoking Status: Unknown if ever smoked Second Hand Exposure: No; Do You Dip or Chew Tobacco: No; Hx Alcohol Use: No Hx Substance Use: No Preferred Language: [place] Communication Ability: 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 Beliefs That Will Affect Care: None Current Living Situation: Snf Feels Safe at Home: Yes Assistive Devices: Other Review of Systems 2 Review of Systems: Unobtainable due to cognitive status Physical Exam 2 Constitutional: + not well nourished and no acute distre ss ENMT: Tracheostomy tube present with yellow sputum Respiratory: normal respiratory effort; no respiratory distress A uscultation: + rhonchi (Throughout); breath sounds present, no diminished lung sounds, no crackles, no rales and no wheezes Cardiovascular: Rate/Rhythm: regular rhythm and + tachycardic Gastrointestinal (Abdomen): Inspection/Auscultation: abdomen normal to inspection; abdomen not distended Percussion/Palpation: abdomen soft; abdomen nontender, no guarding and abdomen not rigid Skin: Neurologic: awake Chronic contractures of all 4 extremities Psychiatric: Orientation: alert; + not oriented x 3 Results & Data Results & Data Vital Signs (Past 12 Hours) Vital Signs Temp Pulse Resp BP Pulse Ox O2 Del Method 07/08/23 13:56 119 H 07/08/23 13:40 115 H 18 94 07/08/23 13:30 114 H 18 95 07/08/23 13:20 117 H 16 95 07/08/23 13:10 116 H 13 94 07/08/23 13:00 111/77 07/08/23 13:00 121 H 18 95 07/08/23 12:50 123 H 18 96 07/08/23 12:45 122 H 19 95 07/08/23 12:30 105/72 07/08/23 12:30 117 H 16 95 07/08/23 12:20 118 H 18 96 07/08/23 12:10 119 H 17 96 07/08/23 12:00 118 H 16 97 07/08/23 11:50 120 H 17 97 07/08/23 11:40 122 H 20 96 07/08/23 11:32 109/68 07/08/23 11:32 119 H 21 97 07/08/23 11:30 118 H 21 96 07/08/23 11:20 113 H 15 95 07/08/23 11:10 113 H 21 07/08/23 11:00 113 H 18 07/08/23 11:00 111/69 07/08/23 10:50 112 H 20 07/08/23 10:40 112 H 21 07/08/23 10:30 110 H 22 07/08/23 10:25 96 Room Air 07/08/23 10:20 111 H 23 07/08/23 10:10 115 H 24 07/08/23 10:00 113 H 24 07/08/23 10:00 99/71 L 07/08/23 09:55 38 C H 112 H 18 97/72 L 96 Room Air 07/08/23 09:54 111 H 07/08/23 09:50 112 H 25 H 07/08/23 09:48 97/72 L 07/08/23 09:48 112 H 25 H Laboratory Results Abnormal lab results 07/08/23 07/08/23 Range/Units 10:07 10:48 WBC 4.09 L (4.8-10.8) K/ul RBC 4.05 L (4.70-6.10) M/uL Hgb 12.8 L (14.0-18.0) g/dl Hct 39.2 L (42.0-52.0) % RDW Std Deviation 49.2 H (36.4-46.3) fL Lymph # (Auto) 0.46 L (1.20-3.40) K/uL Creatinine 0.46 L (0.6-1.4) mg/dl BUN/Creatinine Ratio 47.8 H (10-20) Glucose 117 H (70-99(Fasting)) mg/dl AST 97 H (13-39) U/L ALT 82 H (7-52) U/L Procalcitonin 0.84 H (0-0.5) ng/ml Diagnostic Findings XR chest 1V portable HISTORY: 32 years-old Male Sepsis acute sepsis COMPARISON: 05/06/2023 TECHNIQUE: AP view of the chest FINDINGS: Tracheostomy cannula overlies the midline at the level of the clavicular heads. Cardiomediastinal and hilar silhouettes are within normal limits. Shunt catheter projects over the left chest, neck and abdomen with imaged portions appearing intact. No pneumothorax, pleural effusion or airspace consolidation. The bones appear grossly intact. A gastrostomy tube is noted. IMPRESSION: No acute process. ABDOMEN AND PELVIS CT WITH IV CONTRAST CT DOSE: 828.9 mGy.cm HISTORY: Acute sepsis with elevated LFTs sacral decubitis ulcer, LFT elevation, sepsis TECHNIQUE: Multiaxial CT images of the abdomen and pelvis were performed following the IV administration of 94 cc of Optiray, A dose lowering technique was utilized adhering to the principles of ALARA. COMPARISON STUDY: 04/19/2023 FINDINGS: Motion degraded exam. Study is also limited secondary to upper cavity positioning. Trace left pleural effusion. Mild dependent bibasilar opacities with bronchial wall thickening and left basilar mucous plugging. The spleen, pancreas, adrenal glands and liver appear unremarkable. Contracted gallbladder. Unremarkable kidneys. Nonspecific circumferential urinary bladder wall thickening. There is a more focal area of wall thickening/increased enhancement involving the left posterolateral urinary bladder on image 349 measuring 2.2 cm. Unremarkable abdominal aorta. No bowel obstruction. Nonspecific circumferential wall thickening of the rectum. There is mild gaseous distention of the colon with moderate colonic fecal retention. Pneumatosis coli of the cecum, image 332. Noninflamed appendix. A gastrostomy tube is in place. Small amount of free pelvic fluid. Shunt catheter distal tip projects in the left inferior pelvis. 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 No acute fracture. Sacral decubitus ulcer measures up to approximately 3.6 cm transversely. There is associated subcutaneous edema without drainable fluid collection or adjacent osseous erosion. Additional subcutaneous edema within the left gluteal tissues. IMPRESSION: 1. Pneumatosis coli of the cecum of unknown clinical significance. No portal venous air identified. 2. No bowel obstruction or pneumoperitoneum. 3. Normal appendix. 4. Mild bibasilar densities favor atelectasis. Trace left pleural effusion with left basilar mucous plugging. 5. Nonspecific urinary bladder wall thickening, greatest within the left posterolateral distribution. Findings could be correlated with cystoscopy to exclude a small mucosal lesion. 6. Sacral decubitus ulcer with cellulitis. No abscess or CT evidence of osteomyelitis. 7. Additional findings as above. Medications Administered ER medications given: Normal saline 500 mL bolus Normal saline 1 L bolus Vancomycin 1000 mg IV Zosyn 4.5 g IV ECG Rate (beats per minute): 114 Rhythm: sinus tachycardia Findings: no acute ischemic change Comparison ECG Date: from (May 04, 2023) Change: no significant change Code Status & VTE Plan Code Status Full VTE Prophylaxis Plan VTE Prophylaxis will be ordered: Yes PG Care Time/CCT Total # of Minutes Spent Total Time Spent with Patient: Total time spent is greater than 50% in coordination of care (as documented) at patient's floor/unit and/or counseling patient: Coding Level of Care Code 52835 INT INP/OBS CARE MIN Diagnoses Sepsis A41.9 Stage IV pressure ulcer of sacral region L89.154 Transaminitis R74.01 Pneumatosis coli K63.89 History of nontraumatic rupture of cerebral aneurysm Z86.79 Cardiomyopathy I42.9 Tracheostomy status Z93.0 Decubitus ulcer of calf, unstageable L89.890 Autonomic dysfunction G90.9 Severe protein-calorie malnutrition E43 History of DVT (deep vein thrombosis) Z86.718
[2023-07-08 14:20] LABS: Protein Urine 1+ (Negative)
[2023-07-08] MEDS ORDERED: BROMOCRIPTINE MESYLATE 2.5 MG TAB PO STA (14:32)
[2023-07-08] MEDS ORDERED: BACLOFEN 20 MG TAB PEG STA (14:32)
[2023-07-08] MEDS ORDERED: DANTROLENE SODIUM 25 MG CAP PEG STA (14:33)
[2023-07-08] MEDS ORDERED: GABAPENTIN 250 MG/5 ML 470 ML BTL PEG STA (14:33)
[2023-07-08] MEDS ORDERED: ACETAMINOPHEN 1,000 MG/100 ML VIAL IV STA (16:05)
[2023-07-08] MEDS ORDERED: bisacodyL 10 MG SUPP PR PRN (18:28)
[2023-07-08] MEDS: PIPERACILLIN/TAZOBACTAM 4.5 GM in DEXTROSE 5% MINI-B 100 ML IV SCH (19:51)
[2023-07-08] MEDS: ACETAMINOPHEN SUSP 325 MG/10.15 ML UDC PEG SCH (20:00)
[2023-07-08] MEDS: METOPROLOL TARTRATE 25 MG TAB PEG SCH (20:00)
[2023-07-08] MEDS: GABAPENTIN 250 MG/5 ML 470 ML BTL PEG SCH (21:00)
[2023-07-08] MEDS: SCOPOLAMINE 1 MG TDSY TD SCH (21:01)
[2023-07-08] MEDS: BROMOCRIPTINE MESYLATE 2.5 MG TAB PO SCH (21:02)
[2023-07-08] MEDS: DANTROLENE SODIUM 25 MG CAP PEG SCH (21:02)
[2023-07-08] MEDS: APIXABAN 5 MG TABLET PO SCH (21:02)
[2023-07-08] MEDS: BACLOFEN 20 MG TAB PEG SCH (21:03)
[2023-07-08] MEDS: POLYETHYLENE (MIRALAX) 17 GM PACK PEG SCH (21:03)
[2023-07-08] MEDS: MELATONIN 3 MG TAB PO SCH (21:07)
[2023-07-08] MEDS: VANCOMYCIN HCL 1,000 MG in SODIUM CHLORIDE 0.9% 250 ML IV SCH (21:07)
[2023-07-08] MEDS: LACTATED RINGER'S 1,000 ML IV SCH (23:28)
[2023-07-08 23:32] LABS: A calco-baum cmplx NotReported Not Detected (NotDetected); Bact fragilis Not Reported Not Detected (NotDetected); Blood Culture Id Panel See PCR Comment (NotDetected); C auris Not Reported Not Detected (NotDetected); Calbicans Not Reported Not Detected (NotDetected); Candida glabrata Not Reported Not Detected (NotDetected); Candida krusei Not Reported Not Detected (NotDetected); Cneoformans/gatti Not Reported Not Detected (NotDetected); Cparapsilosis Not Reported Not Detected (NotDetected); E cloacae compx Not Reported Not Detected (NotDetected); Efaecalis Not Reported Not Detected (NotDetected); Efaecium Not Reported Not Detected (NotDetected); Enterobacterales Not Reported Not Detected (NotDetected); Escherichia coli Not Reported Not Detected (NotDetected); H influenzae Not Reported Not Detected (NotDetected); K aerogenes Not Reported Not Detected (NotDetected); Koxytoca Not Reported Not Detected (NotDetected); Kpneumoniae grp Not Reported Not Detected (NotDetected); Lmonocyt Not Reported Not Detected (NotDetected); N meningitidis Not Reported Not Detected (NotDetected); P aeruginosa Not Reported Not Detected (NotDetected); Proteus spp Not Reported Not Detected (NotDetected); Salmonella spp Not Reported Not Detected (NotDetected); Smarcescens Not Reported Not Detected (NotDetected); Staph lugdunensis Not Reported Not Detected (NotDetected); Staph spp. Not Reported DETECTED (NotDetected); Staphaureus Not Reported Not Detected (NotDetected); Staphepi Not Reported Not Detected (NotDetected); Stenmaltophilia Not Reported Not Detected (NotDetected); Strep agal(GrpB) Not Reported Not Detected (NotDetected); Strep pneum Not Reported Not Detected (NotDetected); Strep pyog (GrpA) Not Reported Not Detected (NotDetected); Strep spp Not Reported DETECTED (NotDetected)
[2023-07-09 00:03] LABS: Staphylococcus spp. DETECTED (NotDetected); Streptococcus spp DETECTED (NotDetected)
[2023-07-09] MEDS: GABAPENTIN 250 MG/5 ML 470 ML BTL PEG SCH ×4 (00:54→17:46)
[2023-07-09] MEDS: ACETAMINOPHEN SUSP 325 MG/10.15 ML UDC PEG SCH ×4 (00:54→17:45)
[2023-07-09] MEDS: BROMOCRIPTINE MESYLATE 2.5 MG TAB PO SCH ×4 (00:55→17:47)
[2023-07-09] MEDS: DANTROLENE SODIUM 25 MG CAP PEG SCH ×4 (00:55→17:47)
[2023-07-09] MEDS: PIPERACILLIN/TAZOBACTAM 4.5 GM in DEXTROSE 5% MINI-B 100 ML IV SCH ×2 (03:18→10:59)
[2023-07-09] MEDS: VANCOMYCIN HCL 1,000 MG in SODIUM CHLORIDE 0.9% 250 ML IV SCH ×2 (04:42→14:17)
[2023-07-09] MEDS: BACLOFEN 20 MG TAB PEG SCH ×3 (05:17→21:22)
[2023-07-09] MEDS: APIXABAN 5 MG TABLET PO SCH ×2 (08:22→20:04)
[2023-07-09] MEDS: POLYETHYLENE (MIRALAX) 17 GM PACK PEG SCH ×2 (08:22→20:14)
[2023-07-09] MEDS: METOPROLOL TARTRATE 25 MG TAB PEG SCH ×2 (08:22→20:03)
[2023-07-09] MEDS: ASCORBIC ACID 500 MG TAB PEG SCH (08:22)
[2023-07-09] MEDS: ZINC SULFATE 220 MG CAPSULE PEG SCH (08:22)
[2023-07-09] MEDS: LACTATED RINGER'S 1,000 ML IV SCH (08:23)
[2023-07-09 08:56] LABS: Basophils # (auto) 0.02 K/uL (0.00-0.20); Basophils % (auto) 0.6 %; Eosinophils # (auto) 0.09 K/uL (0.00-0.50); Eosinophils % (auto) 2.8 %; Hematocrit (blood only) 29.4 % (42.0-52.0); Hemoglobin 9.7 g/dl (14.0-18.0); Immature Granulocytes # (auto) 0.01 K/uL (0.01-0.20); Immature Granulocytes % (auto) 0.3 %; Lymphocytes # (auto) 0.63 K/uL (1.20-3.40); Lymphocytes % (auto) 19.3 %; Mean Corpuscular Hemoglobin 31.2 pg (25.0-34.0); Mean Corpuscular Volume 94.5 fL (80.0-100.0); Mean Platelet Volume 12.4 fL (9.4-12.4); Monocytes # (auto) 0.39 K/uL (0.11-0.59); Neutrophils # (auto) 2.12 K/uL (1.40-6.50); Platelet Count 137 K/uL (130-400); RDW Coefficient of Variation 13.9 % (11.5-14.5); RDW Standard Deviation 48.4 fL (36.4-46.3); Red Blood Count 3.11 M/uL (4.70-6.10); White Blood Count 3.26 K/ul (4.8-10.8)
[2023-07-09 09:20] LABS: Alanine Aminotransferase 62 U/L (7-52); Alkaline Phosphatase 70 U/L (34-104); Anion Gap 5 (3-11); Aspartate Aminotransferase 48 U/L (13-39); BUN Creatinine Ratio 30.3 (10-20); Bilirubin,Total 0.5 mg/dl (0.2-1.0); Blood Urea Nitrogen 10 mg/dl (6-23); Calcium 8.6 mg/dl (8.6-10.3); Carbon Dioxide 29 mmol/L (21-32); Chloride 106 mmol/L (98-107); Creatine Kinase 257 U/L (30-223); Creatinine Clr Calc Pharmacy 245.5 ml/min; Est GFR (African American) > 150.0 ml/min; Est GFR (Non-African American) > 150.0 ml/min; Glucose 93 mg/dl (70-99(Fasting)); Potassium 3.7 mmol/L (3.5-5.1); Sodium 140 mmol/L (136-145)
[2023-07-09] MEDS ORDERED: VANCOMYCIN LEVEL ONE (11:30)
[2023-07-09] MEDS: PEPTAMEN 1.5 CAL 1,000 ML BAG PEG SCH ×2 (13:21→17:46)
[2023-07-09] MEDS: TUBE FEEDING WATER FLUSH GT SCH ×3 (13:21→20:15)
[2023-07-09] MEDS: PROSOURCE NO CARB 30 ML/PKT PEG SCH (13:21)
--- NOTE | 2023-07-09 15:21 | Pharmacy Report ---
Pharmacy PK ABX Note - Date of Service July 09, 2023 - Assessment and Plan Assessment 32 year old M receiving vancomycin/Zosyn for treatment of sacral ulcer/bacteremia. Pertinent microbiologic data includes: blood cultures growing GPCs Biofire Strep/staph. Has isolated pseudomonas in many previous sputum cultures. ID Consulted. Of note, patient is a paraplegic and this has been taken into account with vancomycin dosing. Vancomycin trough today predicting levels within goal range, another trough ordered for tomorrow to ensure efficacy at steady state. Renal function stable Day # 2 of antimicrobial therapy. Plan Vancomycin * Loading dose: 1000 mg IV x 1 * Maintenance dose: 1000 mg IV every 8 hours * Regimen is predicted to achieve target AUC/BASHIR of 400-600 mg/L.hr * Trough level ordered for: 07/09/23 @ 1130 Pharmacy will continue to follow and will adjust dose/frequency as necessary. Thank you. Pharmacy has transitioned to AUC monitoring for vancomycin. AUC/BASHIR is the preferred PK/PD target and is associated with decreased risk of nephrotoxicity compared to traditional trough targets.
--- NOTE | 2023-07-09 15:45 | Infectious Disease Consult ---
Date of Consultation July 09, 2023 Assessment & Plan (1) Streptococcal bacteremia: (2) Decubital ulcer: (3) Transaminitis: Plan 32 yo M with history of ruptured cerebral aneurysm s/p craniotomy/hematoma evacuation during hospitalization from Aug - Feb 2023, [employer] shunt, s/p trach and PEG, nonverbal, autonomic dysfunction who presented on 07/08 with a worsening sacral ulcer with surrounding cellulitis, found to have Group C Strep bacteremia. The sacral ulcer was present during his admissions in March, however it has been getting progressively worse. Of note, patient had recently completed a course of cefepime x 10 days on 06/28/2023 for a respiratory infection. On presentation, patient was febrile to 38, HR 112, BP 97/72, RR 25, saturating well on room air. Labs showed WBC 4.09, normal lactate, AST 97, ALT 82, procalcitonin 0.84, RVP negative. CXR showed no acute process. CT A/P with IV contrast showed pneumatosis coli of the cecum of unknown clinical significance, sacral decubitus ulcer with associated subcutaneous edema without drainable fluid collection or adjacent osseous erosion concerning for cellulitis. He was started on empiric vancomycin and Zosyn. Admission blood cultures are growing group C strep in 2/4 bottles. Micro: 07/08 BCx x2: Group C Strep in 2/4 bottles 07/08 MRSA nares: neg Abx: Vanc 07/08 - present Pip-tzo 07/08 - present Problems: #Sacral decubitus ulcer with SSTI: CT without evidence of abscess or osteomyelitis #Group C Strep bacteremia: may be 2/2 SSTI #Transaminitis Discussion: Photo of pt's sacral ulcer reviewed, showing surrounding erythema suggestive of cellulitis. Group C Strep bacteremia may be due to skin and soft tissue infection of the sacrum. Recommendations: -Discontinued vanc, pip-tazo -Started ceftriaxone 2 g IV q24h for Group C Strep bacteremia -Ordered a repeat set of blood cultures today Will continue to follow. Please page [facility] Center with further questions. Consultation Information This patient recommendation is based on a telemedicine consult request which was completed asynchronously through chart review and information provided by the primary physician. The patient was not seen or examined today. The evaluation is consultative in nature and all patient care and treatment decisions can either be accepted or rejected by the patient's primary hospital-based treating physician using their own independent medical judgment for their patient. Cosmetics Supervisor contact information: Please call [facility] . (Phone Number For Physician Use Only) Time Spent Reviewing Chart: 31+ minutes History of Present Illness Reason for Consultation: Strep bacteremia, sepsis Attending Physician: Contreras Galicia History of Present Illness 32 yo M with history of ruptured cerebral aneurysm s/p craniotomy/hematoma evacuation during hospitalization from Aug - Feb 2023, [employer] shunt, s/p trach and PEG, nonverbal, autonomic dysfunction who presented on 07/08 with a worsening sacral ulcer. The sacral ulcer was present during his admissions in March, however it has been getting progressively worse. Of note, patient had recently completed a course of cefepime x 10 days on 06/28/2023 for a respiratory infection. On presentation, patient was febrile to 38, HR 112, BP 97/72, RR 25, saturating well on room air. Labs showed WBC 4.09, normal lactate, AST 97, ALT 82, procalcitonin 0.84, RVP negative. CXR showed no acute process. CT A/P with IV contrast showed pneumatosis coli of the cecum of unknown clinical significance, sacral decubitus ulcer with associated subcutaneous edema without drainable fluid collection or adjacent osseous erosion concerning for cellulitis. He was started on empiric vancomycin and Zosyn. Admission blood cultures are growing group C strep in 2/4 bottles. Allergies Allergy/AdvReac Type Severity Reaction Status Date / Time No Known Allergies Allergy Unverified 07/08/23 15:52 Home Medications Medication Instructions Recorded Confirmed Type scopolamine base 1 mg over 3 days 1 patch transdermal Q3D 04/02/23 07/08/23 History transdermal patch acetaminophen 325 mg/10.15 mL oral 650 mg (20.3 mL) PEG Q6 #250 mL 04/17/23 07/08/23 Rx suspension bromocriptine 2.5 mg tablet 2.5 mg feeding tube Q6 #120 tabs 04/17/23 07/08/23 Rx dantrolene 25 mg capsule 100 mg (4 x 25 mg) PEG Q6 #120 caps 04/17/23 07/08/23 Rx gabapentin 250 mg/5 mL oral 400 mg (8 mL) PEG Q6 #250 mL 04/17/23 07/08/23 Rx solution bisacodyl 10 mg rectal suppository 10 mg KS .EVERY 24 HOURS PRN 05/04/23 07/08/23 History Constipation Proheal 30 ml feeding tube BID 07/08/23 07/08/23 History apixaban 5 mg tablet (Eliquis) 5 mg feeding tube BID 07/08/23 07/08/23 History ascorbic acid (vitamin C) 500 mg 500 mg PO DAILY 07/08/23 07/08/23 History tablet baclofen 20 mg tablet 20 mg feeding tube Q8 07/08/23 07/08/23 History collagenase clostridium histo. 250 1 applic topical .EVERY DAY SHIFT 07/08/23 07/08/23 History unit/gram topical ointment (Santyl) collagenase clostridium histo. 250 1 applic topical DIRECTED PRN 07/08/23 07/08/23 History unit/gram topical ointment (Santyl) soilage/dislodgement ferrous sulfate 300 mg (60 mg 325 mg feeding tube Q OTHER DAY 07/08/23 07/08/23 History iron)/5 mL oral liquid lactose-reduced food with fiber 1 ea feeding tube Q4 07/08/23 07/08/23 History 0.06 gram-1.5 kcal/mL oral liquid (Jevity 1.5 Lance) magnesium hydroxide 400 mg/5 mL 2,400 mg PO DAILY PRN Constipation 07/08/23 07/08/23 History oral suspension (Milk of Magnesia) melatonin 3 mg tablet 3 mg feeding tube HS 07/08/23 07/08/23 History metoprolol tartrate 25 mg tablet 25 mg PEG Q12 07/08/23 07/08/23 History multivitamin 1 tab feeding tube QAM 07/08/23 07/08/23 History polyethylene glycol 3350 17 gram 17 g feeding tube BID 07/08/23 07/08/23 History oral powder packet (Miralax) sodium phosphates 19 gram-7 118 ml KS .MORNING OF 4TH DAY PRN 07/08/23 07/08/23 History gram/118 mL enema (Fleet Enema) Constipation water 1 ea UD 07/08/23 07/08/23 History zinc sulfate 50 mg zinc (220 mg) 50 mg PO DAILY 07/08/23 07/08/23 History tablet Patient History Medical History (Updated 07/09/23 @ 15:48 by Jenny Lake MD) History of DVT (deep vein thrombosis) Moderate protein-calorie malnutrition History of nontraumatic rupture of cerebral aneurysm History of traumatic brain injury Surgical History S/P [employer] shunt Social History Smoking Status: Unknown if ever smoked Second Hand Exposure: No; Do You Dip or Chew Tobacco: No; Hx Alcohol Use: No Hx Substance Use: No Preferred Language: Japanese Communication Ability: Unable Distance Education Faculty Liaison Required: No Beliefs That Will Affect Care: None Current Living Situation: Longterm Feels Safe at Home: Yes Assistive Devices: Other Review of System Patient not seen Physical Exam Physical Exam: Patient not seen Results & Data Vital Signs (Past 12 Hours) Vital Signs Temp Pulse Pulse Resp BP Pulse Ox O2 Del Method 07/09/23 11:32 36.2 C L 103 H 20 111/72 98 Trach Collar 07/09/23 09:30 Trach Collar 07/09/23 07:55 37.0 C 85 18 90/56 L 99 Trach Collar 07/09/23 07:43 95 H 07/09/23 03:31 36.9 C 78 18 89/68 L 100 Trach Collar O2 Flow Rate 07/09/23 11:32 07/09/23 09:30 6 07/09/23 07:55 07/09/23 07:43 07/09/23 03:31 6 Laboratory Results Short CBC 07/09/23 Range/Units 08:20 WBC 3.26 L (4.8-10.8) K/ul Hgb 9.7 L D (14.0-18.0) g/dl Hct 29.4 L (42.0-52.0) % Plt Count 137 (130-400) K/uL BMP 07/09/23 08:20 Sodium 140 Potassium 3.7 Chloride 106 Carbon Dioxide 29 BUN 10 Creatinine 0.33 L Glucose 93 Calcium 8.6 Cardiac Enzymes 07/09/23 Range/Units 08:20 Total Creatine Kinase 257 H (30-223) U/L Liver Function 07/09/23 Range/Units 08:20 Total Bilirubin 0.5 (0.2-1.0) mg/dl AST 48 H (13-39) U/L ALT 62 H (7-52) U/L Alkaline Phosphatase 70 (34-104) U/L Albumin 3.0 L (3.4-5.0) gm/dl Diagnostic Findings Chest X-Ray 07/08/23 10:06 XR chest 1V portable HISTORY: 32 years-old Male Sepsis acute sepsis COMPARISON: 05/06/2023 TECHNIQUE: AP view of the chest FINDINGS: Tracheostomy cannula overlies the midline at the level of the clavicular heads. Cardiomediastinal and hilar silhouettes are within normal limits. Shunt catheter projects over the left chest, neck and abdomen with imaged portions appearing intact. No pneumothorax, pleural effusion or airspace consolidation. The bones appear grossly intact. A gastrostomy tube is noted. IMPRESSION: No acute process. ACT 112: Negative or not required by law. The above report was generated using voice recognition software. It may contain grammatical, syntax or spelling errors. Electronically signed by: Corey Rodgers M.D. 07/08/2023 12:02 PM Abdomen/Pelvis CT 07/08/23 11:[address] WITH IV CONTRAST CT DOSE: 828.9 mGy.cm HISTORY: Acute sepsis with elevated LFTs sacral decubitis ulcer, LFT elevation, sepsis TECHNIQUE: Multiaxial CT images of the abdomen and pelvis were performed following the IV administration of 94 cc of Optiray, A dose lowering technique was utilized adhering to the principles of ALARA. COMPARISON STUDY: 04/19/2023 FINDINGS: Motion degraded exam. Study is also limited secondary to upper cavity positioning. Trace left pleural effusion. Mild dependent bibasilar opacities with bronchial wall thickening and left basilar mucous plugging. The spleen, pancreas, adrenal glands and liver appear unremarkable. Contracted gallbladder. Unremarkable kidneys. Nonspecific circumferential urinary bladder wall thickening. There is a more focal area of wall thickening/increased enhancement involving the left posterolateral urinary bladder on image 349 measuring 2.2 cm. Unremarkable abdominal aorta. No bowel obstruction. Nonspecific circumferential wall thickening of the rectum. There is mild gaseous distention of the colon with moderate colonic fecal retention. Pneumatosis coli of the cecum, image 332. Noninflamed appendix. A gastrostomy tube is in place. Small amount of free pelvic fluid. Shunt catheter distal tip projects in the left inferior pelvis. 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 No acute fracture. Sacral decubitus ulcer measures up to approximately 3.6 cm transversely. There is associated subcutaneous edema without drainable fluid collection or adjacent osseous erosion. Additional subcutaneous edema within the left gluteal tissues. IMPRESSION: 1. Pneumatosis coli of the cecum of unknown clinical significance. No portal venous air identified. 2. No bowel obstruction or pneumoperitoneum. 3. Normal appendix. 4. Mild bibasilar densities favor atelectasis. Trace left pleural effusion with left basilar mucous plugging. 5. Nonspecific urinary bladder wall thickening, greatest within the left posterolateral distribution. Findings could be correlated with cystoscopy to exclude a small mucosal lesion. 6. Sacral decubitus ulcer with cellulitis. No abscess or CT evidence of osteomyelitis. 7. Additional findings as above. ACT 112: Negative or not required by law. The above report was generated using voice recognition software. It may contain grammatical, syntax or spelling errors. Electronically signed by: Corey Rodgers M.D. 07/08/2023 1:05 PM Medications Administered Current Inpatient Medications Acetaminophen (Acetaminophen Susp 325 Mg/10.15 Ml Udc) 650 mg PEG Q6 [facility] Stop: 08/07/23 18:27 Last Admin: 07/09/23 12:20 Dose: 650 mg Apixaban (Apixaban 5 Mg Tablet) 5 mg PO BID [facility] Stop: 08/07/23 20:59 Last Admin: 07/09/23 08:22 Dose: 5 mg Ascorbic Acid (Ascorbic Acid 500 Mg Tab) 500 mg PEG DAILY [facility] Stop: 08/08/23 08:59 Last Admin: 07/09/23 08:22 Dose: 500 mg Baclofen (Baclofen 20 Mg Tab) 20 mg PEG Q8 [facility] Stop: 08/07/23 21:59 Last Admin: 07/09/23 13:22 Dose: 20 mg Bisacodyl (Bisacodyl 10 Mg Supp) 10 mg KS Q24H PRN PRN Reason: Constipation Stop: 08/07/23 18:27 Bromocriptine Mesylate (Bromocriptine Mesylate 2.5 Mg Tab) 2.5 mg PO Q6 [facility] Stop: 08/07/23 18:44 Last Admin: 07/09/23 12:21 Dose: 2.5 mg Dantrolene Sodium (Dantrolene Sodium 25 Mg Cap) 100 mg PEG Q6 [facility] Stop: 08/07/23 18:59 Last Admin: 07/09/23 12:21 Dose: 100 mg Enteral Nutritional Formula (Peptamen 1.5 Lance 1,000 Ml Bag) 0 ml PEG Q6 [facility]; Protocol Stop: 08/08/23 12:19 Last Admin: 07/09/23 13:21 Dose: 250 ml Ferrous Sulfate (Ferrous Sulfate 325 Mg/7.4 Ml Udp) 325 mg PEG Q2D [facility] Stop: 08/09/23 08:59 Gabapentin (Gabapentin 250 Mg/5 Ml 470 Ml Btl) 400 mg PEG Q6 [facility] Stop: 08/07/23 18:44 Last Admin: 07/09/23 12:22 Dose: 400 mg Piperacillin Sod/Tazobactam (Sod 4.5 gm/ Dextrose) 100 mls @ 25 mls/hr IV Q8H [facility]; Protocol Stop: 07/15/23 18:59 Last Admin: 07/09/23 10:59 Dose: 25 mls/hr Vancomycin HCl 1,000 mg/ (Sodium Chloride) 270 mls @ 200 mls/hr IV Q8H [facility] Stop: 07/15/23 19:59 Last Admin: 07/09/23 14:17 Dose: 200 mls/hr Lactated Ringer's (Lr) 1,000 mls @ 100 mls/hr IV .Q10H [facility] Stop: 07/09/23 18:29 Last Admin: 07/09/23 08:23 Dose: 100 mls/hr Melatonin (Melatonin 3 Mg Tab) 3 mg PO HS [facility] Stop: 08/07/23 20:59 Last Admin: 07/08/23 21:07 Dose: 3 mg Metoprolol Tartrate (Metoprolol Tartrate 25 Mg Tab) 25 mg PEG BID@0800,2000 [facility] Stop: 08/07/23 19:59 Last Admin: 07/09/23 08:22 Dose: Not Given Miscellaneous (Remove Transderm-Scop Patch) 1 each N/A Q72H [facility] Stop: 08/07/23 18:58 Last Admin: 07/08/23 21:01 Dose: 1 each Miscellaneous Information (Vancomycin Consult Active) 1 each N/A UD PRN PRN Reason: Consult Stop: 08/07/23 10:44 Nutritional Formula (Prosource No Carb 30 Ml/Pkt) 30 ml PEG DAILY [facility] Stop: 08/08/23 12:29 Last Admin: 07/09/23 13:21 Dose: 30 ml Polyethylene Glycol (Polyethylene (Miralax) 17 Gm Pack) 17 gm PEG Q12 [facility] Stop: 08/07/23 19:59 Last Admin: 07/09/23 08:22 Dose: 17 gm Scopolamine (Scopolamine 1 Mg Tdsy) 1 mg TD Q3D [facility] Stop: 08/07/23 18:59 Last Admin: 07/08/23 21:01 Dose: 1 mg Sterile Water (Tube Feeding Water Flush) 100 ml GT Q4H [facility] Stop: 08/08/23 12:29 Last Admin: 07/09/23 13:21 Dose: 100 ml Zinc Sulfate (Zinc Sulfate 220 Mg Capsule) 220 mg PEG DAILY [facility] Stop: 08/08/23 08:59 Last Admin: 07/09/23 08:22 Dose: 220 mg
--- NOTE | 2023-07-09 17:06 | Surgery Progress Note ---
Date of Service July 09, 2023 Assessment & Plan (1) Decubital ulcer: (2) Stage IV pressure ulcer of sacral region: Plan The wound appears to be improving somewhat with Aquacel dressings. Discussed with wound care nurses. We will continue with Aquacel dressings for now. We will hold off on any surgical intervention. We will continue to monitor. Admission and Anticipated Discharge Date Admission Date: July 08, 2023 Subjective Patient was seen with wound care nurses today. No change in condition. Nonresponsive. Physical Exam Physical Exam: AFVSS NAD, & O x 3 Abdomen: Soft, NTND Sacral decubitus ulcer measuring 6 cm x 10 cm x 4 cm Some of the dry gangrene appears to be sloughing No purulence Results & Data Vital Signs (Past 12 Hours) Vital Signs Temp Pulse Pulse Resp BP Pulse Ox O2 Del Method 07/09/23 15:24 36.2 C L 93 H 18 105/68 98 Trach Collar 07/09/23 11:32 36.2 C L 103 H 20 111/72 98 Trach Collar 07/09/23 09:30 Trach Collar 07/09/23 07:55 37.0 C 85 18 90/56 L 99 Trach Collar 07/09/23 07:43 95 H O2 Flow Rate 07/09/23 15:24 07/09/23 11:32 07/09/23 09:30 6 07/09/23 07:55 07/09/23 07:43 (1) Decubital ulcer Pressure injury location: sacral region Pressure injury stage: stage 4 Qualified Code(s): L89.154 - Pressure ulcer of sacral region, stage 4
[2023-07-09] MEDS: cefTRIAXone SODIUM 2,000 MG in DEXTROSE 5 % MINI-B 50 ML IV SCH (20:00)
[2023-07-09] MEDS: MELATONIN 3 MG TAB PO SCH (21:22)
--- NOTE | 2023-07-09 22:24 | Hospitalist Progress Note ---
Date of Service July 09, 2023 Assessment & Plan (1) Sepsis: Plan: Gram positive bacerteremia: group c strep. Pending sensitivities Mother - Sharlene Viveros [phone] reports she has guardianship and needs updated daily. His Aunt is also shared guardian but number is not on file. Other suspected source is his sacral ulcer. SPutum culture showing colonized peudomonas given recurrent pseudomonas on cultures. however chest x-ray is unremarkable. Urinalysis unremarkable. Lactate within normal limits. Further IV fluids resuscitation not required. Possible some of his temperature and tachycardia related to missing his midday medications (patient has severe autonomic dysfunction vs NMS with withdrawal of dopamine agonists) given relatively normal white blood count however given risk factors and current infection assumption is the infection is driving his abnormal vital signs. Switched empiric antibiotics to ceftriaxone. Follow-up blood cultures (2) Stage IV pressure ulcer of sacral region: Plan: Vancomycin/Zosyn Defer to surgery regarding debridement Consult wound care nurse (3) Transaminitis: Plan: Continue to monitor. No liver abnormality on CT. Acetaminophen level normal. Dantrolene is hepatotoxic however requires this for chronic spasticity and malignant hyperthermia - will continue for now although may need to be reconsidered if AST/ALT continue to rise without alternative explanation (4) Pneumatosis coli: Plan: Management per surgery (5) History of nontraumatic rupture of cerebral aneurysm: Plan: Patient is nonverbal at baseline with chronic contractures in all 4 extremities (6) Cardiomyopathy: Plan: Continue metoprolol Switched from IV fluids to PEG feeds (7) Tracheostomy status: Plan: Suctioning tracheostomy q2h and as needed. Next due to be changed on . (8) Decubitus ulcer of calf, unstageable: Plan: Eschar present with no surrounding cellulitis. (9) Autonomic dysfunction: Plan: Continue dantrolene and bromocriptine (10) Severe protein-calorie malnutrition: Plan: Consult dietary (11) History of DVT (deep vein thrombosis): Plan: Continue Eliquis Plan VTE prophylaxis - Eliquis via PEG Diet - n.p.o., consult dietary for tube feeds Disposition - admit to PCU Admission and Anticipated Discharge Date Admission Date: July 08, 2023 Subjective Patient is nonverbal. Review of Systems Review of Systems: All systems reviewed & are unremarkable except as noted in HPI & below Physical Exam Physical Exam: NAD. Abdomen: Soft, NTND Sacral decubitus ulcer measuring 6 cm x 10 cm x 4 cm Some of the dry gangrene appears to be sloughing No purulence Results & Data Results & Data Vital Signs (Past 12 Hours) Vital Signs Temp Pulse Pulse Resp BP Pulse Ox O2 Del Method 07/09/23 20:45 Trach Collar 07/09/23 19:47 37.1 C 123 H 18 110/67 96 Trach Collar 07/09/23 15:32 100 H 07/09/23 15:24 36.2 C L 93 H 18 105/68 98 Trach Collar 07/09/23 11:32 36.2 C L 103 H 20 111/72 98 Trach Collar O2 Flow Rate 07/09/23 20:45 07/09/23 19:47 6 07/09/23 15:32 07/09/23 15:24 07/09/23 11:32 PG Care Time/CCT Total # of Minutes Spent Total Time Spent with Patient: Total time spent is greater than 50% in coordination of care (as documented) at patient's floor/unit and/or counseling patient: Coding Level of Care Code 45118 SUB INP/OBS CARE 3/50MIN Diagnoses Sepsis A41.9 Stage IV pressure ulcer of sacral region L89.154 Transaminitis R74.01 Pneumatosis coli K63.89 History of nontraumatic rupture of cerebral aneurysm Z86.79 Cardiomyopathy I42.9 Tracheostomy status Z93.0 Decubitus ulcer of calf, unstageable L89.890 Autonomic dysfunction G90.9 Severe protein-calorie malnutrition E43 History of DVT (deep vein thrombosis) Z86.718
[2023-07-10] MEDS: BROMOCRIPTINE MESYLATE 2.5 MG TAB PO SCH ×5 (00:38→23:40)
[2023-07-10] MEDS: DANTROLENE SODIUM 25 MG CAP PEG SCH ×5 (00:39→23:41)
[2023-07-10] MEDS: PEPTAMEN 1.5 CAL 1,000 ML BAG PEG SCH ×4 (00:40→17:17)
[2023-07-10] MEDS: TUBE FEEDING WATER FLUSH GT SCH ×6 (00:41→21:24)
[2023-07-10] MEDS: GABAPENTIN 250 MG/5 ML 470 ML BTL PEG SCH ×5 (00:45→23:39)
[2023-07-10] MEDS: ACETAMINOPHEN SUSP 325 MG/10.15 ML UDC PEG SCH ×5 (00:45→23:39)
[2023-07-10] MEDS: BACLOFEN 20 MG TAB PEG SCH ×3 (05:43→21:24)
[2023-07-10 06:20] LABS: Est GFR (African American) > 150.0 ml/min; Est GFR (Non-African American) > 150.0 ml/min
--- NOTE | 2023-07-10 08:17 | Hospitalist Progress Note ---
Date of Service July 10, 2023 Assessment & Plan (1) Sepsis: Plan: Gram positive bacerteremia: group c strep. Pending sensitivities Mother - Sharlene Viveros [phone] reports she has guardianship and needs updated daily. His Aunt is also shared guardian but number is not on file. suspected source is his sacral ulcer. SPutum culture showing colonized peudomonas given recurrent pseudomonas on cultures. however chest x-ray is unremarkable. Urinalysis unremarkable. Lactate within normal limits. Further IV fluids resuscitation not required. Possible some of his temperature and tachycardia related to missing his midday medications (patient has severe autonomic dysfunction vs NMS with withdrawal of dopamine agonists) given relatively normal white blood count however given risk factors and current infection assumption is the infection is driving his abn ormal vital signs. Switched empiric antibiotics to ceftriaxone. ID re added vancomycin due to additional gram positive blood cultures (2) Stage IV pressure ulcer of sacral region: Plan: Vancomycin/ceftriaxone Defer to surgery regarding debridement Consult wound care nurse (3) Transaminitis: Plan: Continue to monitor. No liver abnormality on CT. Acetaminophen level normal. Dantrolene is hepatotoxic however requires this for chronic spasticity and malignant hyperthermia - will continue for now although may need to be reconsidered if AST/ALT continue to rise without alternative explanation (4) Pneumatosis coli: Plan: Management per surgery (5) History of nontraumatic rupture of cerebral aneurysm: Plan: Patient is nonverbal at baseline with chronic contractures in all 4 extremities (6) Cardiomyopathy: Plan: Continue metoprolol Switched from IV fluids to PEG feeds (7) Tracheostomy status: Plan: Suctioning tracheostomy q2h and as needed. Next due to be changed on . (8) Decubitus ulcer of calf, unstageable: Plan: Eschar present with no surrounding cellulitis. (9) Autonomic dysfunction: Plan: Continue dantrolene and bromocriptine (10) Severe protein-calorie malnutrition: Plan: Consult dietary, peptamin 1.5 250 ml q6 hours (11) History of DVT (deep vein thrombosis): Plan: Continue Eliquis Plan VTE prophylaxis - Eliquis via PEG Diet - n.p.o., consult dietary for tube feeds Disposition - admit to PCU Admission and Anticipated Discharge Date Admission Date: July 08, 2023 Subjective Pt not responsive to command Physical Exam Physical Exam: pt is with urinary retention today, lewis for >600ml urine, however abd did not examine as abnormal and pt is very thin respirations are unlabored thru tracheostomy Results & Data Results & Data Vital Signs (Past 12 Hours) Vital Signs Temp Pulse Pulse Resp BP Pulse Ox O2 Del Method 07/10/23 07:30 98.2 F 100 H 20 100/68 96 Trach Collar 07/10/23 03:22 98.2 F 123 H 18 99/65 L 96 Trach Collar 07/09/23 22:38 98.1 F 102 H 18 98/61 L 98 Trach Collar 07/09/23 22:00 102 H 07/09/23 20:45 Trach Collar O2 Flow Rate 07/10/23 07:30 6 07/10/23 03:22 6 07/09/23 22:38 6 07/09/23 22:00 07/09/23 20:45 Laboratory Results reviewed additional blood cultures + for strep PG Care Time/CCT Total # of Minutes Spent Total Time Spent with Patient: Total time spent is greater than 50% in coordination of care (as documented) at patient's floor/unit and/or counseling patient: Coding Level of Care Code 33801 SUB INP/OBS CARE 3/50MIN Diagnoses Sepsis A41.9 Stage IV pressure ulcer of sacral region L89.154 Transaminitis R74.01 Pneumatosis coli K63.89 History of nontraumatic rupture of cerebral aneurysm Z86.79 Cardiomyopathy I42.9 Tracheostomy status Z93.0 Decubitus ulcer of calf, unstageable L89.890 Autonomic dysfunction G90.9 Severe protein-calorie malnutrition E43 History of DVT (deep vein thrombosis) Z86.718
[2023-07-10] MEDS: POLYETHYLENE (MIRALAX) 17 GM PACK PEG SCH ×2 (08:47→21:30)
[2023-07-10] MEDS: METOPROLOL TARTRATE 25 MG TAB PEG SCH ×3 (08:48→19:46)
[2023-07-10] MEDS: PROSOURCE NO CARB 30 ML/PKT PEG SCH (08:49)
[2023-07-10] MEDS: ASCORBIC ACID 500 MG TAB PEG SCH (08:49)
[2023-07-10] MEDS: FERROUS SULFATE 325 MG/7.4 ML UDP PEG SCH (08:49)
[2023-07-10] MEDS: APIXABAN 5 MG TABLET PO SCH ×2 (08:49→21:24)
[2023-07-10] MEDS: ZINC SULFATE 220 MG CAPSULE PEG SCH (08:50)
[2023-07-10] MEDS ORDERED: VANCOMYCIN LEVEL ONE (11:00)
[2023-07-10] MEDS ORDERED: VANCOMYCIN CONSULT ACTIVE PRN (13:46)
--- NOTE | 2023-07-10 13:58 | Infectious Disease Progress Nt ---
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 The sacral ulcer was present during his admissions in March, however it has been getting progressively worse. Of note, patient had recently completed a course of cefepime x 10 days on 06/28/2023 for a respiratory infection. On presentation, patient was febrile to 38, HR 112, BP 97/72, RR 25, saturating well on room air. Photo of pt's sacral ulcer reviewed, showing surrounding erythema suggestive of cellulitis. Labs showed WBC 4.09, normal lactate, AST 97, ALT 82, procalcitonin 0.84, RVP negative. CXR showed no acute process. CT A/P with IV contrast showed pneumatosis coli of the cecum of un known clinical significance, sacral decubitus ulcer with associated subcutaneous edema without drainable fluid collection or adjacent osseous erosion concerning for cellulitis. He was started on empiric vancomycin and Zosyn. Surgery does not think debridement is needed. Admission blood cultures are growing group C strep in 2/4 bottles and GPCs in clusters awaiting identification. Now on vanc, ceftriaxone. Micro: 07/10 BCx x2: pending 07/09 BCx x2: GPCs in clusters in 1/4 bottles 07/08 BCx x2: Group C Strep in 2/4 bottles, GPCs in clusters in ?/4 bottles (BCID + Staph species and Strep species. Did not detect Staph epi or Staph lug) 07/08 MRSA nares: neg 07/06 Sputum cx: PsA, Group C Strep Abx: Vanc 07/08 - 07/09, 07/10 - present Ceftriaxone 2 g 07/09 - present Pip-tzo 07/08 - 07/09 Problems: #Sacral decubitus ulcer with SSTI: CT without evidence of abscess or osteomyelitis #Group C Strep bacteremia: may be 2/2 SSTI #GPCs in clusters in blood culture: contamination vs true bacteremia. Grew from both 1/16 and 07/09 blood cultures #Transaminitis #Pseudomonas in respiratory cx: on 07/06, after receiving a 10 day course of cefepime through 06/28/23. No respiratory issues this hospitalization, no hypoxia, CXR without consolidations. Has grown Pseudomonas in multiple respiratory culture from Mar, Apr, May 2023. Liekly represents colonization. Discussion: Awaiting identification of GPCs in clusters from blood culture--not Staph epi or Staph lug per BCID PCR panel. Uncertain whether this represents a contaminant or not, but 07/09 blood cultures also growing GPCs in clusters. 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 Group C Strep bacteremia may be due to skin and soft tissue infection of the sacrum. He has grown Group C Strep in his sputum culture recently, but given his stable respiratory status and negative CXR, think the lungs are less likely a source. Recommendations: -Restarted vanc for GPCs in clusters in blood culture -Continue ceftriaxone 2 g IV q24h for Group C Strep bacteremia -Follow-up repeat blood cultures for clearance Will continue to follow. Please page ID Connect Call Center with further questions. Admission and Anticipated Discharge Date Admission Date: July 08, 2023 Subjective This patient recommendation is based on a telemedicine consult request which was completed asynchronously through chart review and information provided by the primary physician. The patient was not seen or examined today. The evaluation is consultative in nature and all patient care and treatment decisions can either be accepted or rejected by the patient's primary hospital-based treating physician using their own independent medical judgment for their patient. Time Spent Reviewing Chart: 11 - 20 minutes Results & Data Vital Signs (Past 12 Hours) Vital Signs Temp Pulse Pulse Resp BP Pulse Ox O2 Del Method 07/10/23 11:58 37.4 C 95 H 18 107/71 96 Trach Collar 07/10/23 10:10 Trach Collar 07/10/23 07:30 36.8 C 100 H 20 100/68 96 Trach Collar 07/10/23 07:28 106 H 07/10/23 03:22 36.8 C 123 H 18 99/65 L 96 Trach Collar O2 Flow Rate 07/10/23 11:58 07/10/23 10:10 6 07/10/23 07:30 6 07/10/23 07:28 07/10/23 03:22 6 (2) Decubital ulcer Pressure injury location: sacral region Pressure injury stage: stage 4 Qualified Code(s): L89.154 - Pressure ulcer of sacral region, stage 4
[2023-07-10] MEDS ORDERED: VANCOMYCIN HCL 1,000 MG in SODIUM CHLORIDE 0.9% 500 ML IV SCH (14:00)
--- NOTE | 2023-07-10 14:11 | Pharmacy Report ---
Pharmacy PK ABX Note - Date of Service July 10, 2023 - Assessment and Plan Assessment 32 year old M, paraplegic, with sacral ulcer/bacteremia. Treated with Vancomycin & Zosyn 07/08-07/09, changed to ceftriaxone 07/09 for Group C Strep bacteremia. GPCs growing in 07/09 blood culture, restart Vanco today per ID consult. Repeat BCx 07/10. No need to treat pseudomonas in sputum cultures at this time, likely colonization, CXR negative, lungs clear. Plan Vancomycin * 1000 mg IV every 8 hours * Regimen is predicted to achieve target AUC/BASHIR of 400-600 mg/L.hr * Trough level ordered for: 07/11/23 @ 1330 Ceftriaxone 2g IV Q24H Pharmacy will continue to follow and will adjust dose/frequency as necessary. Thank you. Pharmacy has transitioned to AUC monitoring for vancomycin. AUC/BASHIR is the preferred PK/PD target and is associated with decreased risk of nephrotoxicity compared to traditional trough targets.
[2023-07-10] MEDS: VANCOMYCIN HCL 1,000 MG in SODIUM CHLORIDE 0.9% 250 ML IV SCH ×2 (15:09→21:20)
[2023-07-10] MEDS: cefTRIAXone SODIUM 2,000 MG in DEXTROSE 5 % MINI-B 50 ML IV SCH (18:44)
[2023-07-10] MEDS: MELATONIN 3 MG TAB PO SCH (21:26)
[2023-07-11] MEDS: PEPTAMEN 1.5 CAL 1,000 ML BAG PEG SCH ×4 (00:01→17:40)
[2023-07-11] MEDS: TUBE FEEDING WATER FLUSH GT SCH ×6 (02:02→20:00)
[2023-07-11] MEDS: ACETAMINOPHEN SUSP 325 MG/10.15 ML UDC PEG SCH ×3 (06:00→17:42)
[2023-07-11] MEDS: DANTROLENE SODIUM 25 MG CAP PEG SCH ×3 (06:01→17:39)
[2023-07-11] MEDS: BROMOCRIPTINE MESYLATE 2.5 MG TAB PO SCH ×3 (06:01→17:39)
[2023-07-11] MEDS: BACLOFEN 20 MG TAB PEG SCH ×3 (06:01→21:49)
[2023-07-11] MEDS: GABAPENTIN 250 MG/5 ML 470 ML BTL PEG SCH ×3 (06:02→17:45)
[2023-07-11] MEDS: VANCOMYCIN HCL 1,000 MG in SODIUM CHLORIDE 0.9% 250 ML IV SCH ×3 (06:02→21:49)
[2023-07-11] MEDS: APIXABAN 5 MG TABLET PO SCH ×2 (08:05→20:31)
[2023-07-11] MEDS: ASCORBIC ACID 500 MG TAB PEG SCH (08:05)
[2023-07-11] MEDS: PROSOURCE NO CARB 30 ML/PKT PEG SCH (08:05)
[2023-07-11] MEDS: POLYETHYLENE (MIRALAX) 17 GM PACK PEG SCH ×2 (08:05→20:29)
[2023-07-11] MEDS: ZINC SULFATE 220 MG CAPSULE PEG SCH (08:06)
[2023-07-11 08:40] LABS: Hematocrit (blood only) 28.2 % (42.0-52.0); Mean Corpuscular Hemoglobin 31.1 pg (25.0-34.0); Mean Corpuscular Hgb Conc 31.9 g/dL (32.0-36.0); Mean Corpuscular Volume 97.6 fL (80.0-100.0); Mean Platelet Volume 12.1 fL (9.4-12.4); Platelet Count 179 K/uL (130-400); RDW Coefficient of Variation 14.1 % (11.5-14.5); RDW Standard Deviation 50.5 fL (36.4-46.3); Red Blood Count 2.89 M/uL (4.70-6.10); White Blood Count 4.69 K/ul (4.8-10.8)
[2023-07-11 08:57] LABS: Alanine Aminotransferase 34 U/L (7-52); Albumin Globulin Ratio 1.1 (0.9-2); Albumin Level 3.3 gm/dl (3.4-5.0); Alkaline Phosphatase 60 U/L (34-104); Anion Gap 7 (3-11); Aspartate Aminotransferase 15 U/L (13-39); BUN Creatinine Ratio 39.3 (10-20); Bilirubin,Total 0.2 mg/dl (0.2-1.0); Blood Urea Nitrogen 11 mg/dl (6-23); Calcium 8.5 mg/dl (8.6-10.3); Carbon Dioxide 28 mmol/L (21-32); Chloride 107 mmol/L (98-107); Creatinine Clr Calc Pharmacy 296.8 ml/min; Est GFR (African American) > 150.0 ml/min; Est GFR (Non-African American) > 150.0 ml/min; Globulin 3.1 gm/dl (2.5-4.0); Glucose 143 mg/dl (70-99(Fasting)); Potassium 3.9 mmol/L (3.5-5.1); Sodium 142 mmol/L (136-145); Total Protein 6.4 gm/dl (6.0-8.3)
--- NOTE | 2023-07-11 10:46 | Electrocardiogram Report ---
Test Reason : Blood Pressure : / mmHG Vent. Rate : 114 BPM Atrial Rate : 114 BPM P-R Int : 132 ms QRS Dur : 076 ms QT Int : 308 ms P-R-T Axes : 049 -04 034 degrees QTc Int : 424 ms Poor data quality, interpretation may be adversely affected Sinus tachycardia Otherwise normal ECG When compared with ECG of 04-MAY-2023 10:36, T wave amplitude has decreased in Anterolateral leads Confirmed by Tj Umana ([id number]) on 07/11/2023 10:46:35 AM Referred By: Confirmed By:Tj Umana
--- NOTE | 2023-07-11 12:55 | XCELERA ---
[id number]
--- NOTE | 2023-07-11 13:10 | Infectious Disease Progress Nt ---
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 The sacral ulcer was present during his admissions in March, however it has been getting progressively worse. Of note, patient had recently completed a course of cefepime x 10 days on 06/28/2023 for a respiratory infection. On presentation, patient was febrile to 38, HR 112, BP 97/72, RR 25, saturating well on room air. Photo of pt's sacral ulcer reviewed, showing surrounding erythema suggestive of cellulitis. Labs showed WBC 4.09, normal lactate, AST 97, ALT 82, procalcitonin 0.84, RVP negative. CXR showed no acute process. CT A/P with IV contrast showed pneumatosis coli of the cecum of unknown clinical significance, sacral decubitus ulcer with associated subcutaneous edema without drainable fluid collection or adjacent osseous erosion concerning for cellulitis. He was started on empiric vancomycin and Zosyn. Surgery does not think debridement is needed. Admission blood cultures are growing group C strep in 2/4 bottles and GPCs in clusters awaiting identification. Now on vanc, ceftriaxone. Micro: 07/10 BCx x2: NGTD 07/09 BCx x2: GPCs in clusters in 1/4 bottles 07/08 BCx x2: Group C Strep in 2/4 bottles, GPCs in clusters in 1/4 bottles (BCID + Staph species and Strep species. Did not detect Staph epi or Staph lug) 07/08 MRSA nares: neg 07/06 Sputum cx: PsA, Group C Strep Abx: Vanc 07/08 - 07/09, 07/10 - present Ceftriaxone 2 g 07/09 - present Pip-tzo 07/08 - 07/09 Problems: #Sacral decubitus ulcer with SSTI: CT without evidence of abscess or osteomyelitis #Group C Strep bacteremia: may be 2/2 SSTI #GPCs in clusters in blood culture: contamination vs true bacteremia. Grew from both 07/08 and 07/09 blood cultures #Transaminitis: resolved #Pseudomonas in respiratory cx: on 07/06, after receiving a 10 day course of cefepime through 06/28/23. No respiratory issues this hospitalization, no hypoxia, CXR without consolidations. Has grown Pseudomonas in multiple respiratory culture from Mar, Apr, May 2023. Liekly represents colonization. Discussion: Awaiting identification of GPCs in clusters from blood culture--not Staph epi or Staph lug per BCID PCR panel. Uncertain whether this represents a contaminant or not, but 07/09 blood cultures also growing GPCs in clusters. 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 Group C Strep bacteremia may be due to skin and soft tissue infection of the sacrum. He has grown Group C Strep in his sputum culture recently, but given his stable respiratory status and negative CXR, think the lungs are less likely a source. Recommendations: -Restarted vanc for GPCs in clusters in blood culture -Continue ceftriaxone 2 g IV q24h for Group C Strep bacteremia -Follow-up repeat blood cultures for clearance Will continue to follow. Please page [facility] Connect Call Center with further questions. Admission and Anticipated Discharge Date Admission Date: July 08, 2023 Subjective This patient recommendation is based on a telemedicine consult request which was completed asynchronously through chart review and information provided by the primary physician. The patient was not seen or examined today. The evaluation is consultative in nature and all patient care and treatment decisions can either be accepted or rejected by the patient's primary hospital-based treating physician using their own independent medical judgment for their patient. Time Spent Reviewing Chart: 11 - 20 minutes Tmax 38 yesterday afternoon Continues on vanc, ceftriaxone Review of System Patient not seen Physical Exam Physical Exam: Patient not seen Results & Data Vital Signs (Past 12 Hours) Vital Signs Temp Pulse Pulse Pulse Resp BP Pulse Ox 07/11/23 10:54 37.6 C H 95 H 19 117/74 97 07/11/23 09:00 92 H 07/11/23 07:55 07/11/23 07:02 37.4 C 95 H 20 109/70 98 07/11/23 02:58 36.4 C L 123 H 20 106/69 95 O2 Del Method O2 Flow Rate 07/11/23 10:54 Trach Collar 6 07/11/23 09:00 07/11/23 07:55 Trach Collar 6 07/11/23 07:02 Trach Collar 6 07/11/23 02:58 Trach Collar 6 Laboratory Results Short CBC 07/11/23 Range/Units 07:42 WBC 4.69 L (4.8-10.8) K/ul Hgb 9.0 L (14.0-18.0) g/dl Hct 28.2 L (42.0-52.0) % Plt Count 179 (130-400) K/uL BMP 07/11/23 07:42 Sodium 142 Potassium 3.9 Chloride 107 Carbon Dioxide 28 BUN 11 Creatinine 0.28 L Glucose 143 H Calcium 8.5 L Liver Function 07/11/23 Range/Units 07:42 Total Bilirubin 0.2 (0.2-1.0) mg/dl AST 15 (13-39) U/L ALT 34 (7-52) U/L Alkaline Phosphatase 60 (34-104) U/L Albumin 3.3 L (3.4-5.0) gm/dl Medications Administered Current Inpatient Medications Acetaminophen (Acetaminophen Susp 325 Mg/10.15 Ml Udc) 650 mg PEG Q6 [facility] Stop: 08/07/23 18:27 Last Admin: 07/11/23 12:08 Dose: 650 mg Apixaban (Apixaban 5 Mg Tablet) 5 mg PO BID [facility] Stop: 08/07/23 20:59 Last Admin: 07/11/23 08:05 Dose: 5 mg Ascorbic Acid (Ascorbic Acid 500 Mg Tab) 500 mg PEG DAILY [facility] Stop: 08/08/23 08:59 Last Admin: 07/11/23 08:05 Dose: 500 mg Baclofen (Baclofen 20 Mg Tab) 20 mg PEG Q8 [facility] Stop: 08/07/23 21:59 Last Admin: 07/11/23 06:01 Dose: 20 mg Bisacodyl (Bisacodyl 10 Mg Supp) 10 mg NH Q24H PRN PRN Reason: Constipation Stop: 08/07/23 18:27 Bromocriptine Mesylate (Bromocriptine Mesylate 2.5 Mg Tab) 2.5 mg PO Q6 [facility] Stop: 08/07/23 18:44 Last Admin: 07/11/23 12:08 Dose: 2.5 mg Dantrolene Sodium (Dantrolene Sodium 25 Mg Cap) 100 mg PEG Q6 [facility] Stop: 08/07/23 18:59 Last Admin: 07/11/23 12:08 Dose: 100 mg Enteral Nutritional Formula (Peptamen 1.5 Lance 1,000 Ml Bag) 0 ml PEG Q6 [facility]; Protocol Stop: 08/08/23 12:19 Last Admin: 07/11/23 12:08 Dose: 250 ml Ferrous Sulfate (Ferrous Sulfate 325 Mg/7.4 Ml Udp) 325 mg PEG Q2D [facility] Stop: 08/09/23 08:59 Last Admin: 07/10/23 08:49 Dose: 325 mg Gabapentin (Gabapentin 250 Mg/5 Ml 470 Ml Btl) 400 mg PEG Q6 [facility] Stop: 08/07/23 18:44 Last Admin: 07/11/23 12:08 Dose: 400 mg Ceftriaxone Sodium 2,000 mg/ (Dextrose) 50 mls @ 100 mls/hr IV Q24H [facility]; Protocol Stop: 07/23/23 18:59 Last Infusion: 07/10/23 19:31 Dose: Infused Vancomycin HCl 1,000 mg/ (Sodium Chloride) 270 mls @ 200 mls/hr IV Q8H [facility] Stop: 07/24/23 13:59 Last Infusion: 07/11/23 07:42 Dose: Infused Melatonin (Melatonin 3 Mg Tab) 3 mg PO HS [facility] Stop: 08/07/23 20:59 Last Admin: 07/10/23 21:26 Dose: 3 mg Metoprolol Tartrate (Metoprolol Tartrate 25 Mg Tab) 25 mg PEG BID@0800,2000 [facility] Stop: 08/07/23 19:59 Last Admin: 07/10/23 19:46 Dose: 25 mg Miscellaneous (Remove Transderm-Scop Patch) 1 each N/A Q72H [facility] Stop: 08/07/23 18:58 Last Admin: 07/08/23 21:01 Dose: 1 each Miscellaneous Information (Vancomycin Consult Active) 1 each N/A UD PRN PRN Reason: Consult Stop: 08/09/23 13:45 Nutritional Formula (Prosource No Carb 30 Ml/Pkt) 30 ml PEG DAILY [facility] Stop: 08/08/23 12:29 Last Admin: 07/11/23 08:05 Dose: 30 ml Polyethylene Glycol (Polyethylene (Miralax) 17 Gm Pack) 17 gm PEG Q12 [facility] Stop: 08/07/23 19:59 Last Admin: 07/11/23 08:05 Dose: Not Given Scopolamine (Scopolamine 1 Mg Tdsy) 1 mg TD Q3D [facility] Stop: 08/07/23 18:59 Last Admin: 07/08/23 21:01 Dose: 1 mg Sterile Water (Tube Feeding Water Flush) 100 ml GT Q4H [facility] Stop: 08/08/23 12:29 Last Admin: 07/11/23 08:05 Dose: 100 ml Zinc Sulfate (Zinc Sulfate 220 Mg Capsule) 220 mg PEG DAILY [facility] Stop: 08/08/23 08:59 Last Admin: 07/11/23 08:06 Dose: 220 mg (2) Decubital ulcer Pressure injury location: sacral region Pressure injury stage: stage 4 Qualified Code(s): L89.154 - Pressure ulcer of sacral region, stage 4
[2023-07-11] MEDS ORDERED: VANCOMYCIN LEVEL ONE (13:30)
--- NOTE | 2023-07-11 14:06 | Hospitalist Progress Note ---
Date of Service July 11, 2023 Assessment & Plan (1) Sepsis: Plan: Gram positive bacerteremia: group c strep.additaional gram positive in clusters in 3 of 6 blood cx not identified yet Pending sensitivities Mother - Sharlene Viveros [phone] reports she has guardianship and needs updated daily. His Aunt is also shared guardian but number is not on file. suspected source is his sacral ulcer. Sputum culture showing colonized peudomonas given recurrent pseudomonas on cultures. however chest x-ray is unremarkable. Urinalysis unremarkable. do not feel clinically is respiratory infection Possible some of his temperature and tachycardia related to missing his midday medications (patient has severe autonomic dysfunction vs NMS with withdrawal of dopamine agonists) given relatively normal white blood count however given risk factors and current infection assumption is the infection is driving his abnormal vital signs. Switched empiric antibiotics to ceftriaxone. ID re added vancomycin due to additional gram positive blood cultures Trans thoracic echo shows improved EF and no valvular lesions (2) Stage IV pressure ulcer of sacral region: Plan: Vancomycin/ceftriaxone Defer to surgery regarding debridement Consult wound care nurse (3) Transaminitis: Plan: Continue to monitor. No liver abnormality on CT. Acetaminophen level normal. Dantrolene is hepatotoxic however requires this for chronic spasticity and malignant hyperthermia - will continue for now although may need to be reconsidered if AST/ALT continue to rise without alternative explanation (4) Pneumatosis coli: Plan: Management per surgery (5) History of nontraumatic rupture of cerebral aneurysm: Plan: Patient is nonverbal at baseline with chronic contractures in all 4 extremities (6) Cardiomyopathy: Plan: Continue metoprolol Switched from IV fluids to PEG feeds (7) Tracheostomy status: Plan: Suctioning tracheostomy q2h and as needed. Next due to be changed on . (8) Decubitus ulcer of calf, unstageable: Plan: Eschar present with no surrounding cellulitis. (9) Autonomic dysfunction: Plan: Continue dantrolene and bromocriptine, has had some normalization of vss (10) Severe protein-calorie malnutrition: Plan: Consult dietary, peptamin 1.5 250 ml q6 hours (11) History of DVT (deep vein thrombosis): Plan: Continue Eliquis Plan VTE prophylaxis - Eliquis via PEG Diet - n.p.o., consult dietary for tube feeds Disposition - admit to PCU Admission and Anticipated Discharge Date Admission Date: July 08, 2023 Subjective non verbal, does not follow commands contractures pressure wounds Physical Exam Physical Exam: cardiac exam is regular lungs are coarse but clear tracheal secretion are not excessive did have urinary retention and lewis placed 07/10/23 pressure wounds to sacrum and lower legs, Results & Data Results & Data Vital Signs (Past 12 Hours) Vital Signs Temp Pulse Pulse Pulse Resp BP Pulse Ox 07/11/23 10:54 99.7 F H 95 H 19 117/74 97 07/11/23 09:00 92 H 07/11/23 07:55 07/11/23 07:02 99.3 F 95 H 20 109/70 98 07/11/23 02:58 97.5 F L 123 H 20 106/69 95 O2 Del Method O2 Flow Rate 07/11/23 10:54 Trach Collar 6 07/11/23 09:00 07/11/23 07:55 Trach Collar 6 07/11/23 07:02 Trach Collar 6 07/11/23 02:58 Trach Collar 6 Laboratory Results reviewed cbc reviewed chemistry reviwed nutritional markers PG Care Time/CCT Total # of Minutes Spent Total Time Spent with Patient: Total time spent is greater than 50% in coordination of care (as documented) at patient's floor/unit and/or counseling patient: Coding Level of Care Code 42684 SUB INP/OBS CARE 3/50MIN Diagnoses Sepsis A41.9 Stage IV pressure ulcer of sacral region L89.154 Transaminitis R74.01 Pneumatosis coli K63.89 History of nontraumatic rupture of cerebral aneurysm Z86.79 Cardiomyopathy I42.9 Tracheostomy status Z93.0 Decubitus ulcer of calf, unstageable L89.890 Autonomic dysfunction G90.9 Severe protein-calorie malnutrition E43 History of DVT (deep vein thrombosis) Z86.718
--- NOTE | 2023-07-11 14:11 | Infectious Disease Progress Nt ---
Date of Service July 11, 2023 Assessment & Plan (1) Streptococcal bacteremia: (2) Decubital ulcer: (3) Bacteremia due to Staphylococcus: (4) Fever: Plan 32 yo M with history of ruptured cerebral aneurysm s/p craniotomy/hematoma evacuation during hospitalization from Aug - Feb 2023, [employer] shunt, s/p trach and PEG, nonverbal, autonomic dysfunction who presented on 07/08 due to a worsening sacral ulcer with surrounding cellulitis, found to have Group C Strep and Staph bacteremia. The sacral ulcer was present during his admissions in March, however it has been getting progressively worse. Of note, patient had recently completed a course of cefepime x 10 days on 06/28/2023 for a respiratory infection (had 06/15 and 07/06 sputum cultures sent from his rehab which both grew Pseudomonas and Group C Strep, with the Pseudomonas developing resistance). On presentation, patient was febrile to 38, HR 112, BP 97/72, RR 25, saturating well on room air. Photo of pt's sacral ulcer reviewed, showing surrounding erythema suggestive of cellulitis. Labs showed WBC 4.09, normal lactate, AST 97, ALT 82, procalcitonin 0.84, RVP negative. CXR showed no acute process. CT A/P with IV contrast showed pneumatosis coli of the cecum of unknown clinical signi ficance, sacral decubitus ulcer with associated subcutaneous edema without drainable fluid collection or adjacent osseous erosion concerning for cellulitis. He was started on empiric vancomycin and Zosyn. Surgery does not think debridement is needed. Admission blood cultures are growing group C strep in 2/4 bottles and GPCs in clusters awaiting identification. It was felt that the Pseudomonas in the 07/06 respiratory culture may represent colonization, given that his respiratory status was at baseline, and CXR without opacities. Therefore, antibiotics were switched vanc and ceftriaxone. Pt febrile on 07/10, with report of increased secretions from the trach. This is in the context of known autonomic dysfunction for which he does get hyperthermic, tachycardic. Micro: 07/10 BCx x2: NGTD 07/09 BCx x2: GPCs in clusters in 1/4 bottles 07/08 BCx x2: Group C Strep in 2/4 bottles, GPCs in clusters in 1/4 bottles (BCID + Staph species and Strep species. Did not detect Staph epi or Staph lug) 07/08 MRSA nares: neg Old micro: 07/06 Sputum cx: PsA (I cefepime, cipro, levo, pip/tazo. R ceftaz. S gent, mery, tobra), Group C Strep 06/15 Sputum cx: PsA (I cipro, levo. Otherwise S), Group C Strep Abx: Vanc 07/08 - 07/09, 07/10 - present Ceftriaxone 2 g 07/09 - present Pip-tazo 07/08 - 07/09 Cefepime ~06/19 - 06/28 (per report) Problems: #Sacral decubitus ulcer with SSTI: CT without evidence of abscess or osteomyelitis #Group C Strep bacteremia: may be 2/2 SSTI #GPCs in clusters in blood culture: contamination vs true bacteremia. Grew from both 07/08 and 07/09 blood cultures #Fever #Autonomic dysfunction: per notes, he gets rigid, tachycardic, hyperthermic if he misses his usual medications #Transaminitis: resolved #Pseudomonas in respiratory cx: on 07/06, after receiving a 10 day course of cefepime through 06/28/23. No respiratory issues this hospitalization, no hypoxia, CXR without consolidations. Has grown Pseudomonas in multiple respiratory culture from Mar, Apr, May 2023. Liekly represents colonization. Discussion: Pt febrile on 07/10, with RN report of copious secretions from the trach, raising concern for a pneumonia/tracheobronchitis. Discussed with hospitalist--his fevers are difficult to interpret in the setting of his autonomic dysfunction. Sacral ulcer still with exudate. Awaiting identification of GPCs in clusters from blood culture--not Staph epi or Staph lug per BCID PCR panel. Uncertain whether this represents a contaminant or not, but 07/09 blood cultures also growing GPCs in clusters. It seems the only hardware/prosthetic device he has is a [employer] shunt. The Group C Strep bacteremia may be due to skin and soft tissue infection of the sacrum, vs pneumonia. Recommendations: -Ordered sacral wound cx, sputum cx -Continue vanc for GPCs in clusters in blood culture. Follow-up identification -Switching from ceftriaxone to meropenem in the setting of fever, increased secretions--acknowledging that his fevers can be difficult to interpret in the setting of autonomic dysfunction. -Follow-up repeat blood cultures for clearance Discussed with hospitalist. Will continue to follow. Please note that ID does not round or write notes over the weekend. If questions or concerns arise, please contact the Infectious Disease Call Center and ask to speak with the covering ID physician. Dr. Ambreen Meredith will take over the service on Friday. Admission and Anticipated Discharge Date Admission Date: July 08, 2023 Subjective Subsequent visit was provided via telemedicine using two-way real-time interactive telecommunication between the patient and the telemedicine provider. For the duration of the visit, the provider was performing the assessment from a different facility than the patient. This includesuse of bluetooth stethoscope forauscultationperformed by the telepresenter that the telemedicine provider can hear if described in the physical exam. Pumping Plant Operator contact information: Please call [facility] . (Phone Number For Physician Use Only) After establishing a telemedicine visit, patient was: Patient was verified with two unique identifiers, Patient/authorized rep acknowledged consent and understanding and Gave permission to continue telehealth session Time Spent with Patient: Subsequent => 25 min Tmax 38 yesterday afternoon. 37.7 on evaluation today Continues on vanc, ceftriaxone Per RN, having copious secretions. Remains on 6 L Continues with some drainage from sacral wound Review of System Unable to obtain given patient condition. Physical Exam Physical Exam: GEN: laying in bed in NAD, nonverbal HEENT: trach in place without surrounding erythema, thick white-yellow secretions from trach, on 6 L O2 RESP: No increased work of breathing ABD: Soft, non-distended. Non-tender to palpation. PEG in place SKIN: Sacral wound with yellow exudate, surrounding erythema. No other lesions/rashes NEURO: nonverbal Results & Data Vital Signs (Past 12 Hours) Vital Signs Temp Pulse Pulse Pulse Resp BP Pulse Ox 07/11/23 10:54 37.6 C H 95 H 19 117/74 97 07/11/23 09:00 92 H 07/11/23 07:55 07/11/23 07:02 37.4 C 95 H 20 109/70 98 07/11/23 02:58 36.4 C L 123 H 20 106/69 95 O2 Del Method O2 Flow Rate 07/11/23 10:54 Trach Collar 6 07/11/23 09:00 07/11/23 07:55 Trach Collar 6 07/11/23 07:02 Trach Collar 6 07/11/23 02:58 Trach Collar 6 Laboratory Results Short CBC 07/11/23 Range/Units 07:42 WBC 4.69 L (4.8-10.8) K/ul Hgb 9.0 L (14.0-18.0) g/dl Hct 28.2 L (42.0-52.0) % Plt Count 179 (130-400) K/uL BMP 07/11/23 07:42 Sodium 142 Potassium 3.9 Chloride 107 Carbon Dioxide 28 BUN 11 Creatinine 0.28 L Glucose 143 H Calcium 8.5 L Liver Function 07/11/23 Range/Units 07:42 Total Bilirubin 0.2 (0.2-1.0) mg/dl AST 15 (13-39) U/L ALT 34 (7-52) U/L Alkaline Phosphatase 60 (34-104) U/L Albumin 3.3 L (3.4-5.0) gm/dl Medications Administered Current Inpatient Medications Acetaminophen (Acetaminophen Susp 325 Mg/10.15 Ml Udc) 650 mg PEG Q6 [facility] Stop: 08/07/23 18:27 Last Admin: 07/11/23 12:08 Dose: 650 mg Apixaban (Apixaban 5 Mg Tablet) 5 mg PO BID T[facility] Stop: 08/07/23 20:59 Last Admin: 07/11/23 08:05 Dose: 5 mg Ascorbic Acid (Ascorbic Acid 500 Mg Tab) 500 mg PEG DAILY [facility] Stop: 08/08/23 08:59 Last Admin: 07/11/23 08:05 Dose: 500 mg Baclofen (Baclofen 20 Mg Tab) 20 mg PEG Q8 [facility] Stop: 08/07/23 21:59 Last Admin: 07/11/23 14:01 Dose: 20 mg Bisacodyl (Bisacodyl 10 Mg Supp) 10 mg SC Q24H PRN PRN Reason: Constipation Stop: 08/07/23 18:27 Bromocriptine Mesylate (Bromocriptine Mesylate 2.5 Mg Tab) 2.5 mg PO Q6 [facility] Stop: 08/07/23 18:44 Last Admin: 07/11/23 12:08 Dose: 2.5 mg Dantrolene Sodium (Dantrolene Sodium 25 Mg Cap) 100 mg PEG Q6 [facility] Stop: 08/07/23 18:59 Last Admin: 07/11/23 12:08 Dose: 100 mg Enteral Nutritional Formula (Peptamen 1.5 Lance 1,000 Ml Bag) 0 ml PEG Q6 [facility]; Protocol Stop: 08/08/23 12:19 Last Admin: 07/11/23 12:08 Dose: 250 ml Ferrous Sulfate (Ferrous Sulfate 325 Mg/7.4 Ml Udp) 325 mg PEG Q2D [facility] Stop: 08/09/23 08:59 Last Admin: 07/10/23 08:49 Dose: 325 mg Gabapentin (Gabapentin 250 Mg/5 Ml 470 Ml Btl) 400 mg PEG Q6 [facility] Stop: 08/07/23 18:44 Last Admin: 07/11/23 12:08 Dose: 400 mg Ceftriaxone Sodium 2,000 mg/ (Dextrose) 50 mls @ 100 mls/hr IV Q24H [facility]; Protocol Stop: 07/23/23 18:59 Last Infusion: 07/10/23 19:31 Dose: Infused Vancomycin HCl 1,000 mg/ (Sodium Chloride) 270 mls @ 200 mls/hr IV Q8H [facility] Stop: 07/24/23 13:59 Last Infusion: 07/11/23 07:42 Dose: Infused Melatonin (Melatonin 3 Mg Tab) 3 mg PO HS [facility] Stop: 08/07/23 20:59 Last Admin: 07/10/23 21:26 Dose: 3 mg Metoprolol Tartrate (Metoprolol Tartrate 25 Mg Tab) 25 mg PEG BID@0800,2000 [facility] Stop: 08/07/23 19:59 Last Admin: 07/10/23 19:46 Dose: 25 mg Miscellaneous (Remove Transderm-Scop Patch) 1 each N/A Q72H [facility] Stop: 08/07/23 18:58 Last Admin: 07/08/23 21:01 Dose: 1 each Miscellaneous Information (Vancomycin Consult Active) 1 each N/A UD PRN PRN Reason: Consult Stop: 08/09/23 13:45 Nutritional Formula (Prosource No Carb 30 Ml/Pkt) 30 ml PEG DAILY [facility] Stop: 08/08/23 12:29 Last Admin: 07/11/23 08:05 Dose: 30 ml Polyethylene Glycol (Polyethylene (Miralax) 17 Gm Pack) 17 gm PEG Q12 [facility] Stop: 08/07/23 19:59 Last Admin: 07/11/23 08:05 Dose: Not Given Scopolamine (Scopolamine 1 Mg Tdsy) 1 mg TD Q3D [facility] Stop: 08/07/23 18:59 Last Admin: 07/08/23 21:01 Dose: 1 mg Sterile Water (Tube Feeding Water Flush) 100 ml GT Q4H [facility] Stop: 08/08/23 12:29 Last Admin: 07/11/23 13:35 Dose: 100 ml Zinc Sulfate (Zinc Sulfate 220 Mg Capsule) 220 mg PEG DAILY [facility] Stop: 08/08/23 08:59 Last Admin: 07/11/23 08:06 Dose: 220 mg (2) Decubital ulcer Pressure injury location: sacral region Pressure injury stage: stage 4 Qualified Code(s): L89.154 - Pressure ulcer of sacral region, stage 4
[2023-07-11] MEDS ORDERED: MEROPENEM 2,000 MG in 0.9 % SODIUM CHLORIDE 60 ML IV SCH (15:00)
[2023-07-11] MEDS: MEROPENEM 500 MG in SYRINGE 0 ML IV SCH ×2 (15:54→20:31)
[2023-07-11] MEDS: SCOPOLAMINE 1 MG TDSY TD SCH (17:45)
[2023-07-11 22:44] LABS: A calco-baum cmplx NotReported Not Detected (NotDetected); Bact fragilis Not Reported Not Detected (NotDetected); Blood Culture Id Panel See PCR Comment (NotDetected); C auris Not Reported Not Detected (NotDetected); Calbicans Not Reported Not Detected (NotDetected); Candida glabrata Not Reported Not Detected (NotDetected); Candida krusei Not Reported Not Detected (NotDetected); Cneoformans/gatti Not Reported Not Detected (NotDetected); Cparapsilosis Not Reported Not Detected (NotDetected); E cloacae compx Not Reported Not Detected (NotDetected); Efaecalis Not Reported Not Detected (NotDetected); Efaecium Not Reported Not Detected (NotDetected); Enterobacterales Not Reported Not Detected (NotDetected); Escherichia coli Not Reported Not Detected (NotDetected); H influenzae Not Reported Not Detected (NotDetected); K aerogenes Not Reported Not Detected (NotDetected); Koxytoca Not Reported Not Detected (NotDetected); Kpneumoniae grp Not Reported Not Detected (NotDetected); Lmonocyt Not Reported Not Detected (NotDetected); N meningitidis Not Reported Not Detected (NotDetected); P aeruginosa Not Reported Not Detected (NotDetected); Proteus spp Not Reported Not Detected (NotDetected); Salmonella spp Not Reported Not Detected (NotDetected); Smarcescens Not Reported Not Detected (NotDetected); Staph lugdunensis Not Reported Not Detected (NotDetected); Staph spp. Not Reported DETECTED (NotDetected); Staphaureus Not Reported Not Detected (NotDetected); Staphepi Not Reported DETECTED (NotDetected); Staphylococcus spp. DETECTED (NotDetected); Stenmaltophilia Not Reported Not Detected (NotDetected); Strep agal(GrpB) Not Reported Not Detected (NotDetected); Strep pneum Not Reported Not Detected (NotDetected); Strep pyog (GrpA) Not Reported Not Detected (NotDetected); Strep spp Not Reported Not Detected (NotDetected)
[2023-07-11 22:55] LABS: Staphylococcus epidermidis DETECTED (NotDetected); mecAC Resistant Gene DETECTED (NotDetected)
[2023-07-12] MEDS: DANTROLENE SODIUM 25 MG CAP PEG SCH ×4 (00:18→17:14)
[2023-07-12] MEDS: BROMOCRIPTINE MESYLATE 2.5 MG TAB PO SCH ×4 (00:18→17:13)
[2023-07-12] MEDS: PEPTAMEN 1.5 CAL 1,000 ML BAG PEG SCH ×4 (00:21→17:52)
[2023-07-12] MEDS: ACETAMINOPHEN SUSP 325 MG/10.15 ML UDC PEG SCH ×4 (00:21→17:19)
[2023-07-12] MEDS: GABAPENTIN 250 MG/5 ML 470 ML BTL PEG SCH ×4 (00:25→17:19)
[2023-07-12] MEDS: TUBE FEEDING WATER FLUSH GT SCH ×6 (00:26→20:52)
[2023-07-12] MEDS: MEROPENEM 500 MG in SYRINGE 0 ML IV SCH ×4 (03:32→20:55)
[2023-07-12] MEDS: BACLOFEN 20 MG TAB PEG SCH ×3 (05:25→20:53)
[2023-07-12] MEDS: VANCOMYCIN HCL 1,000 MG in SODIUM CHLORIDE 0.9% 250 ML IV SCH ×3 (05:26→23:00)
[2023-07-12 07:19] LABS: Hematocrit (blood only) 29.4 % (42.0-52.0); Hemoglobin 9.6 g/dl (14.0-18.0); Mean Corpuscular Hemoglobin 31.3 pg (25.0-34.0); Mean Corpuscular Hgb Conc 32.7 g/dL (32.0-36.0); Mean Corpuscular Volume 95.8 fL (80.0-100.0); Mean Platelet Volume 11.3 fL (9.4-12.4); Platelet Count 240 K/uL (130-400); RDW Coefficient of Variation 14.2 % (11.5-14.5); Red Blood Count 3.07 M/uL (4.70-6.10); White Blood Count 5.93 K/ul (4.8-10.8)
[2023-07-12 07:36] LABS: Alanine Aminotransferase 26 U/L (7-52); Albumin Globulin Ratio 1.1 (0.9-2); Albumin Level 3.4 gm/dl (3.4-5.0); Alkaline Phosphatase 61 U/L (34-104); Anion Gap 6 (3-11); Aspartate Aminotransferase 10 U/L (13-39); BUN Creatinine Ratio 35.7 (10-20); Bilirubin,Total 0.3 mg/dl (0.2-1.0); Blood Urea Nitrogen 10 mg/dl (6-23); Calcium 8.9 mg/dl (8.6-10.3); Carbon Dioxide 29 mmol/L (21-32); Chloride 107 mmol/L (98-107); Creatinine Clr Calc Pharmacy 290.9 ml/min; Est GFR (African American) > 150.0 ml/min; Est GFR (Non-African American) > 150.0 ml/min; Globulin 3.1 gm/dl (2.5-4.0); Glucose 139 mg/dl (70-99(Fasting)); Sodium 142 mmol/L (136-145); Total Protein 6.5 gm/dl (6.0-8.3)
[2023-07-12] MEDS: METOPROLOL TARTRATE 25 MG TAB PEG SCH ×2 (08:23→20:52)
[2023-07-12] MEDS: ASCORBIC ACID 500 MG TAB PEG SCH (08:24)
[2023-07-12] MEDS: PROSOURCE NO CARB 30 ML/PKT PEG SCH (08:25)
[2023-07-12] MEDS: POLYETHYLENE (MIRALAX) 17 GM PACK PEG SCH ×2 (08:25→20:51)
[2023-07-12] MEDS: ZINC SULFATE 220 MG CAPSULE PEG SCH (08:25)
[2023-07-12] MEDS: APIXABAN 5 MG TABLET PO SCH ×2 (08:25→20:52)
[2023-07-12] MEDS: FERROUS SULFATE 325 MG/7.4 ML UDP PEG SCH (08:25)
--- NOTE | 2023-07-12 16:15 | Hospitalist Progress Note ---
Date of Service July 12, 2023 Assessment & Plan (1) Sepsis: Plan: Gram positive bacerteremia: group c strep.additaional gram positive in clusters in 3 of 6 blood cx now described as coag negative staph not lugdunensisthese are oxacillin resistant Pending sensitivities Mother - Sharlene Viveros [phone] reports she has guardianship and needs updated daily. His Aunt is also shared guardian but number is not on file. suspected source is his sacral ulcer. Sputum culture showing colonized peudomonas given recurrent pseudomonas on cultures. however chest x-ray is unremarkable. Urinalysis unremarkable. do not feel clinically is respiratory infection Possible some of his temperature and tachycardia related to missing his midday medications (patient has severe autonomic dysfunction vs NMS with withdrawal of dopamine agonists) given relatively normal white blood count however given risk factors and current infection assumption is the infection is driving his abnormal vital signs. Switched empiric antibiotics to meropenem to cover Pseudomonas ID re added vancomycin due to additional gram positive blood cultures Trans thoracic echo shows improved EF and no valvular lesions (2) Stage IV pressure ulcer of sacral region: Plan: Vancomycin/ceftriaxone Defer to surgery regarding debridement Consult wound care nurse (3) Transaminitis: Plan: Continue to monitor. No liver abnormality on CT. Acetaminophen level normal. Dantrolene is hepatotoxic however requires this for chronic spasticity and malignant hyperthermia - will continue for now although may need to be reconsidered if AST/ALT continue to rise without alternative explanation (4) Pneumatosis coli: Plan: Management per surgery (5) History of nontraumatic rupture of cerebral aneurysm: Plan: Patient is nonverbal at baseline with chronic contractures in all 4 extremities (6) Cardiomyopathy: Plan: Continue metoprolol Switched from IV fluids to PEG feeds (7) Tracheostomy status: Plan: Suctioning tracheostomy q2h and as needed. Next due to be changed on . (8) Decubitus ulcer of calf, unstageable: Plan: Eschar present with no surrounding cellulitis. (9) Autonomic dysfunction: Plan: Continue dantrolene and bromocriptine, has had some normalization of vss (10) Severe protein-calorie malnutrition: Plan: Consult dietary, peptamin 1.5 250 ml q6 hours (11) History of DVT (deep vein thrombosis): Plan: Continue Eliquis Plan VTE prophylaxis - Eliquis via PEG Diet - n.p.o., consult dietary for tube feeds Disposition - admit to PCU Admission and Anticipated Discharge Date Admission Date: July 08, 2023 Subjective No significant fevers Tmax on 07/11 was 99.7 none since cultures remain not to identify the gram-positive cocci in clusters remains on meropenem and vancomycin Patient is significant clinical state no response to commands does have startle response does not track reliably Physical Exam Physical Exam: Attempt to open eyes but falls easily back to sleep cardiac exam is regular lungs are clear abdomen NABS tolerating tube feeds Results & Data Results & Data Vital Signs (Past 12 Hours) Vital Signs Temp Pulse Resp BP Pulse Ox O2 Del Method O2 Flow Rate 07/12/23 15:09 99.0 F 91 H 20 126/79 97 Trach Collar 6 07/12/23 10:51 98.8 F 87 19 119/76 98 Trach Collar 6 07/12/23 07:06 98.4 F 94 H 19 118/72 99 Trach Collar 6 Laboratory Results Reviewed CBC Reviewed chemistry PG Care Time/CCT Total # of Minutes Spent Total Time Spent with Patient: Total time spent is greater than 50% in coordination of care (as documented) at patient's floor/unit and/or counseling patient: Coding Level of Care Code 58904 SUB INP/OBS CARE 2/35MIN Diagnoses Sepsis A41.9 Stage IV pressure ulcer of sacral region L89.154 Transaminitis R74.01 Pneumatosis coli K63.89 History of nontraumatic rupture of cerebral aneurysm Z86.79 Cardiomyopathy I42.9 Tracheostomy status Z93.0 Decubitus ulcer of calf, unstageable L89.890 Autonomic dysfunction G90.9 Severe protein-calorie malnutrition E43 History of DVT (deep vein thrombosis) Z86.718
[2023-07-12] MEDS: MELATONIN 3 MG TAB PO SCH (20:56)
--- NOTE | 2023-07-12 21:42 | CT Scan Report ---
Exam(s): CT HEAD Without Contrast EXAM: CT Head Without Intravenous Contrast CLINICAL HISTORY: Reason for exam: eval hydrocephalus. TECHNIQUE: Axial computed tomography images of the head/brain without intravenous contrast. CTDI is 38.43 mGy and DLP is 625.8 mGy-cm. Automated exposure control was utilized for the study. A dose lowering technique was utilized adhering to the principles of ALARA. COMPARISON: Head CT April 19, 2023. FINDINGS: No acute intracranial hemorrhage. No midline shift or mass effect. 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 LEFT frontal shunt catheter terminates in the RIGHT lateral ventricle. Old RIGHT craniotomy. RIGHT MCA aneurysm clip. Age-related cerebral volume loss. Periventricular and subcortical white matter hypoattenuation, consistent with chronic microangiopathy. The visualized orbits appear grossly unremarkable. The visualized paranasal sinuses and mastoid air cells are grossly clear. IMPRESSION: No acute intracranial hemorrhage. 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 LEFT frontal shunt catheter terminates in the RIGHT lateral ventricle. Old RIGHT craniotomy. RIGHT MCA aneurysm clip. Electronically signed by: Hernando Luis MD 07/12/23 21:42 PM
[2023-07-13] MEDS: GABAPENTIN 250 MG/5 ML 470 ML BTL PEG SCH ×4 (00:14→17:35)
[2023-07-13] MEDS: DANTROLENE SODIUM 25 MG CAP PEG SCH ×4 (00:15→17:33)
[2023-07-13] MEDS: BROMOCRIPTINE MESYLATE 2.5 MG TAB PO SCH ×4 (00:16→17:33)
[2023-07-13] MEDS: PEPTAMEN 1.5 CAL 1,000 ML BAG PEG SCH ×4 (00:17→17:35)
[2023-07-13] MEDS: TUBE FEEDING WATER FLUSH GT SCH ×6 (00:18→15:38)
[2023-07-13] MEDS: ACETAMINOPHEN SUSP 325 MG/10.15 ML UDC PEG SCH ×4 (00:30→17:33)
[2023-07-13] MEDS: MEROPENEM 500 MG in SYRINGE 0 ML IV SCH ×4 (03:56→21:01)
[2023-07-13] MEDS ORDERED: VANCOMYCIN LEVEL ONE (05:30)
[2023-07-13 05:55] LABS: Hematocrit (blood only) 29.5 % (42.0-52.0); Hemoglobin 9.8 g/dl (14.0-18.0); Mean Corpuscular Hemoglobin 31.5 pg (25.0-34.0); Mean Corpuscular Hgb Conc 33.2 g/dL (32.0-36.0); Mean Corpuscular Volume 94.9 fL (80.0-100.0); Mean Platelet Volume 10.9 fL (9.4-12.4); Platelet Count 315 K/uL (130-400); RDW Coefficient of Variation 14.1 % (11.5-14.5); RDW Standard Deviation 48.8 fL (36.4-46.3); Red Blood Count 3.11 M/uL (4.70-6.10); White Blood Count 8.91 K/ul (4.8-10.8)
[2023-07-13 06:10] LABS: Alanine Aminotransferase 21 U/L (7-52); Albumin Globulin Ratio 1.1 (0.9-2); Albumin Level 3.6 gm/dl (3.4-5.0); Alkaline Phosphatase 61 U/L (34-104); Anion Gap 7 (3-11); Aspartate Aminotransferase 10 U/L (13-39); BUN Creatinine Ratio 37.1 (10-20); Bilirubin,Total 0.3 mg/dl (0.2-1.0); Blood Urea Nitrogen 13 mg/dl (6-23); Calcium 9.3 mg/dl (8.6-10.3); Carbon Dioxide 29 mmol/L (21-32); Chloride 105 mmol/L (98-107); Creatinine Clr Calc Pharmacy 232.7 ml/min; Est GFR (African American) > 150.0 ml/min; Est GFR (Non-African American) > 150.0 ml/min; Globulin 3.4 gm/dl (2.5-4.0); Glucose 99 mg/dl (70-99(Fasting)); Potassium 4.5 mmol/L (3.5-5.1); Sodium 141 mmol/L (136-145)
[2023-07-13] MEDS: BACLOFEN 20 MG TAB PEG SCH ×3 (06:30→21:02)
[2023-07-13] MEDS: VANCOMYCIN HCL 1,000 MG in SODIUM CHLORIDE 0.9% 250 ML IV SCH ×3 (06:30→21:29)
--- NOTE | 2023-07-13 06:36 | Pharmacy Report ---
Pharmacy PK ABX Note - Date of Service July 13, 2023 - Assessment and Plan Assessment 07/13/23: * Vanc trough obtained this morning (17.8 mcg/mL) indicating that current vanc dosing remains appropriate. * BCx with staph and strep; sputum and sacral cx with GNB (pending ID/sens) * Continue vanc and meropenem, per ID 07/10/23: 32 year old M, paraplegic, with sacral ulcer/bacteremia. Treated with Vancomycin & Zosyn 07/08-07/09, changed to ceftriaxone 07/09 for Group C Strep bacteremia. GPCs growing in 07/09 blood culture, restart Vanco today per ID consult. Repeat BCx 07/10. No need to treat pseudomonas in sputum cultures at this time, likely colonization, CXR negative, lungs clear. Plan Vancomycin * Continue 1000 mg IV every 8 hours * Regimen is predicted to achieve target AUC/BASHIR of 400-600 mg/L.hr * No further levels have been ordered at this time. Will consider the need for additional monitoring in 1-2 days if pt remains on vanc (sooner if warranted) Meropenem 500mg IV q6h Pharmacy will continue to follow and will adjust dose/frequency as necessary. Thank you. Pharmacy has transitioned to AUC monitoring for vancomycin. AUC/BASHIR is the preferred PK/PD target and is associated with decreased risk of nephrotoxicity compared to traditional trough targets.
--- NOTE | 2023-07-13 07:44 | Hospitalist Progress Note ---
Date of Service July 13, 2023 Assessment & Plan (1) Sepsis: Plan: Gram positive bacerteremia: group c strep.additaional gram positive in clusters in 3 of 6 blood cx now described as coag negative staph not lugdunensisthese are oxacillin resistant suspected source is his sacral ulcer. Sputum culture showing colonized peudomonas given recurrent pseudomonas on cultures. however chest x-ray is unremarkable. Urinalysis unremarkable. Possible some of his temperature and tachycardia related to initially missing his midday medications (patient has severe autonomic dysfunction vs NMS with withdrawal of dopamine agonists) Switched empiric antibiotics to meropenem to cover Pseudomonas; vancomycin due to additional gram positive blood cultures, if we consider pseudomonas a colonizer may consider daptomycin to treat strep and staph if longer course is needed Trans thoracic echo shows improved EF and no valvular lesions Mother Tory Viveros [phone] reports she has guardianship and needs updated daily. His Aunt is also shared guardian but number is not on file. (2) Stage IV pressure ulcer of sacral region: Plan: Defer to surgery not regarding debridement at this time Consult wound care nurse for continued management (3) Transaminitis: Plan: Continue to monitor. No liver abnormality on CT. Acetaminophen level normal. Dantrolene is hepatotoxic however requires this for chronic spasticity and malignant hyperthermia - will continue for now although may need to be reconsidered if AST/ALT continue to rise without alternative explanation (4) Pneumatosis coli: Plan: no inital plans on invasive Management per surgery (5) History of nontraumatic rupture of cerebral aneurysm: Plan: Patient is nonverbal at baseline with chronic contractures in all [address] head shows encephalomalacia and good shunt placement (6) Cardiomyopathy: Plan: Continue metoprolol Switched from IV fluids to PEG feeds (7) Tracheostomy status: Plan: Suctioning tracheostomy q2h and as needed. Next due to be changed on . (8) Decubitus ulcer of calf, unstageable: Plan: Eschar present with no surrounding cellulitis. (9) Autonomic dysfunction: Plan: Continue dantrolene and bromocriptine, has had some normalization of vss (10) Severe protein-calorie malnutrition: Plan: Consult dietary, peptamin 1.5 250 ml q6 hours (11) History of DVT (deep vein thrombosis): Plan: Continue Eliquis Plan VTE prophylaxis - Eliquis via PEG Diet - n.p.o., consult dietary for tube feeds Admission and Anticipated Discharge Date Admission Date: July 08, 2023 Subjective No significant fevers Tmax on 07/11 was 99.7 none since cultures remain show strep and coag neg staph which is oxacillin resistant, remains on meropenem and vancomycin Patient is significant compromised state -no response to commands does have startle response does not track reliably Physical Exam Physical Exam: Attempt to open eyes but falls easily back to sleep cardiac exam is regular lungs are clear abdomen NABS tolerating tube feeds Results & Data Results & Data Vital Signs (Past 12 Hours) Vital Signs Temp Pulse Pulse Resp BP Pulse Ox O2 Del Method 07/13/23 06:57 98.2 F 68 19 111/73 95 Trach Collar 07/13/23 02:42 98.4 F 94 H 18 104/60 97 Trach Collar 07/12/23 22:36 98.2 F 88 18 122/77 100 Trach Collar 07/12/23 22:00 81 07/12/23 20:00 Trach Collar O2 Flow Rate 07/13/23 06:57 6 07/13/23 02:42 07/12/23 22:36 07/12/23 22:00 07/12/23 20:00 Laboratory Results Reviewed CBC Reviewed chemistry Removed vancomycin random level Reviewed CT head showing encephalomalacia with good placement of [employer] shunt PG Care Time/CCT Total # of Minutes Spent Total Time Spent with Patient: Total time spent is greater than 50% in coordination of care (as documented) at patient's floor/unit and/or counseling patient: Coding Level of Care Code 54394 SUB INP/OBS CARE 2/35MIN Diagnoses Sepsis A41.9 Stage IV pressure ulcer of sacral region L89.154 Transaminitis R74.01 Pneumatosis coli K63.89 History of nontraumatic rupture of cerebral aneurysm Z86.79 Cardiomyopathy I42.9 Tracheostomy status Z93.0 Decubitus ulcer of calf, unstageable L89.890 Autonomic dysfunction G90.9 Severe protein-calorie malnutrition E43 History of DVT (deep vein thrombosis) Z86.718
[2023-07-13] MEDS: METOPROLOL TARTRATE 25 MG TAB PEG SCH ×2 (07:45→21:00)
[2023-07-13] MEDS: APIXABAN 5 MG TABLET PO SCH ×2 (07:46→21:00)
[2023-07-13] MEDS: POLYETHYLENE (MIRALAX) 17 GM PACK PEG SCH ×2 (07:52→21:01)
[2023-07-13] MEDS: PROSOURCE NO CARB 30 ML/PKT PEG SCH (07:52)
[2023-07-13] MEDS: ASCORBIC ACID 500 MG TAB PEG SCH (08:00)
[2023-07-13] MEDS: ZINC SULFATE 220 MG CAPSULE PEG SCH (08:00)
[2023-07-13] MEDS: MELATONIN 3 MG TAB PO SCH (21:15)
[2023-07-14] MEDS: ACETAMINOPHEN SUSP 325 MG/10.15 ML UDC PEG SCH ×5 (00:15→23:39)
[2023-07-14] MEDS: GABAPENTIN 250 MG/5 ML 470 ML BTL PEG SCH ×5 (00:16→23:39)
[2023-07-14] MEDS: DANTROLENE SODIUM 25 MG CAP PEG SCH ×5 (00:16→23:39)
[2023-07-14] MEDS: BROMOCRIPTINE MESYLATE 2.5 MG TAB PO SCH ×6 (00:16→23:39)
[2023-07-14] MEDS: PEPTAMEN 1.5 CAL 1,000 ML BAG PEG SCH ×5 (00:17→23:40)
[2023-07-14] MEDS: TUBE FEEDING WATER FLUSH GT SCH ×6 (01:13→19:48)
[2023-07-14] MEDS: MEROPENEM 500 MG in SYRINGE 0 ML IV SCH ×4 (03:35→21:09)
[2023-07-14] MEDS: BACLOFEN 20 MG TAB PEG SCH ×3 (06:29→21:09)
[2023-07-14] MEDS: VANCOMYCIN HCL 1,000 MG in SODIUM CHLORIDE 0.9% 250 ML IV SCH ×3 (06:33→21:09)
[2023-07-14] MEDS: METOPROLOL TARTRATE 25 MG TAB PEG SCH ×2 (09:15→19:54)
[2023-07-14] MEDS: ZINC SULFATE 220 MG CAPSULE PEG SCH (09:15)
[2023-07-14] MEDS: PROSOURCE NO CARB 30 ML/PKT PEG SCH (09:15)
--- NOTE | 2023-07-14 09:15 | Infectious Disease Progress Nt ---
Date of Service July 14, 2023 Assessment & Plan (1) Streptococcal bacteremia: (2) Decubital ulcer: (3) Bacteremia due to Staphylococcus: (4) Fever: (5) Increased tracheal secretions: Plan 32 yo M with history of ruptured cerebral aneurysm s/p craniotomy/hematoma evacuation during hospitalization from Aug - Feb 2023, [employer]LINE COMM[employer]IST shunt, s/p trach and PEG, nonverbal, autonomic dysfunction who presented to [facility] on 07/08/23 due to fevers and worsening sacral ulcer with surrounding cellulitis, found to 07/08 BCx + have Group C Strep and CoNS (2 morphologies), and 07/09 BCx + for CoNS (2 morphologies) and Corynebacterium. The sacral ulcer was present during his admissions in March, however it has been getting progressively worse. Of note, patient had recently completed a course of cefepime x 10 days on 06/28/2023 for a respiratory infection (had 06/15 and 07/06 sputum cultures sent from his rehab which both grew Pseudomonas and Group C Strep, with the Pseudomonas developing resistance). Repeat BCx from 07/10 remain NGTD. Sacral wound cx from 07/11 with probable Pseudomonas, and sputum cx from 07/11 with PsA. Febrile on 07/10 with increased trach secretions, now afebrile and with improved secretions. Sacral wound continues to have yellowish exudate. On presentation 07/08, patient was febrile (TMax of 39.7) with CXR clear; CT A/P showed pneumatosis coli of cecum of unknown significance, sacral decubitus ulcer with associated subcutaneous edema and without drainable fluid collection or adjacent osseous erosion. Surgery did not feel that debridement was needed. The source of his fevers and polymicrobial bacteremia appears most likely from sacral wound SSTI, though considered respiratory source as well given fever and increased trach secretions on 07/10. Admission BCx from 07/08 are growing group C strep in 2/4 bottles and CoNS (2 morphologies), and repeat 07/09 BCx with both CoNS (2 morphologies) and Corynebacterium. The Group C Strep bacteremia is likely from SSTI, though also considered respiratory source (given that recent respiratory cx have grown Group C Strep). BCx from both 07/08 and 07/09 with multiple morphologies of CoNS; this is also likely from his sacral wound SSTI though also considered possibilities of contamination and deep-seated endovascu lar infection/IE. Corynebacterium may similarly represent contamination vs. SSTI. His BCx from 07/10 remain NGTD. TTE from 07/11 without visualized vegetations. It seems the only hardware/prosthetic device he has is a [employer]LINE COMM[employer]ICATION[employer]IST shunt. Lower suspicion for deep-seated endovascular infection at this time given the polymicrobial bacteremia with multiple morphologies of CoNS and will follow 07/10 BCx until finalized to ensure they remain negative. He was originally started on vancomycin and Zosyn. It was initially felt that the Pseudomonas in the 07/06 respiratory culture may represent colonization, given that his respiratory status was at baseline, and CXR without opacities. Therefore, antibiotics were switched vanc and ceftriaxone. The pt then febrile on 07/10, with RN report of copious secretions from the trach, raising concern for a pneumonia/tracheobronchitis, however note that his fevers are difficult to interpret in the setting of his autonomic dysfunction. At that time, his abx were broadened to vancomycin and meropenem. Repeat sacral wound cx on 07/11 (after abx) with probable Pseudomonas, and sputum cx on 07/11 with PsA (hollis-S). Would continue IV vancomycin and meropenem for now, which will cover for both sacral wound SSTI (sacral wound cx growing probable Pseudomonas, awaiting susceptibilities) and polymicrobial bacteremias (Group C, CoNS 2 morphologies, Corynebacterium). Anticipate 7 to 10-day course of abx to cover for polymicrobial bacteremias and sacral wound SSTI. ID Problem List: 1.Sacral decubitus ulcer with SSTI: CT without evidence of abscess or osteomyelitis. Sacral wound cx from 07/11 with probable Pseudomonas 2.Group C Strep bacteremia: likely 2/2 SSTI 3.CoNS bacteremia: contamination vs. true bacteremia, may be 2/2 SSTI. Grew from both 07/08 and 07/09 blood cultures. 4.Corynebacterium bacteremia: contamination vs. true bacteremia, may be 2/2 SSTI 5.Fevers 6.Possible tracheitis / increased tracheal secretions 07/10 7.Autonomic dysfunction: per notes, he gets rigid, tachycardic, hyperthermic if he misses his usual medications 8.Transaminitis: resolved 9.Pseudomonas in respiratory cx: on 07/06, after receiving a 10 day course of cef epime through 06/28/23. No respiratory issues this hospitalization, no hypoxia, CXR without consolidations. Has grown Pseudomonas in multiple respiratory culture from Mar, Apr, May 2023. Likely represents colonization. Recommendations: - Continue IV vancomycin (dosing per pharmacy) - Continue meropenem for now - Anticipate 7 to 10-day course of abx to cover for polymicrobial bacteremias and sacral wound SSTI - F/u 07/11 sacral wound cx speciation/susceptibilities - Follow-up repeat blood cultures 07/10 for clearance - Continue sacral wound care, would consider reengaging surgery if sacral wound appearance is not improving ID will continue to follow. Ambreen Meredith MD, MHS Infectious Diseases [facility]/ID Connect ID Connect direct line: [phone] Admission and Anticipated Discharge Date Admission Date: July 08, 2023 Subjective Subsequent visit was provided via telemedicine using two-way real-time interactive telecommunication between the patient and the telemedicine provider. For the duration of the visit, the provider was performing the assessment from a different facility than the patient. This includesuse of bluetooth stethoscope forauscultationperformed by the telepresenter that the telemedicine provider can hear if described in the physical exam. Framing Inspector contact information: Please call ID Connect Call Center [phone]. (Phone Number For Physician Use Only) After establishing a telemedicine visit, patient was: Patient was verified with two unique identifiers and Patient/authorized rep acknowledged consent and understanding Time Spent with Patient: Subsequent => 35 min - Afebrile over the weekend and this AM. RN report that pts secretions from trach improved over the weekend though overnight may have had a moderate increase in secretions again. - 07/11 SpCx with PsA, 07/11 sacral wound cx with probable Pseudomonas - Remains on trach collar at 6L Physical Exam Physical Exam: Exam obtained with aid of in-person telepresenter. General: Sleeping, chronically ill-appearing, no acute distress HEENT: Conjunctivae non-injected, sclerae anicteric, MMM, OP clear. Slight crusting on R eyelid. CV: RRR, faint systolic murmur Resp: Few scattered crackles otherwise CTAB. Trach site c/d/i, minimal secretions in suction. Trach collar 6L Abd: Soft, nondistended. PEG site c/d/i. : Condom cath in place with yellow urine. Ext: No edema. No joint warmth or effusions noted. LLE and BLE with shallow ulcerations on dependent aspect and dressing/boots in place Skin: Sacral wound with continued yellowish exudate, still with surrounding erythema perhaps slightly improved. No other rashes or lesions. Neuro: Nonverbal. Psych: Unable to assess Results & Data Vital Signs (Past 12 Hours) Vital Signs Temp Pulse Pulse Resp BP Pulse Ox O2 Del Method 07/14/23 07:02 37.2 C 75 19 117/77 100 Trach Collar 07/14/23 03:47 37.1 C 79 16 105/64 100 Trach Collar 07/13/23 23:32 36.9 C 83 16 111/71 98 Trach Collar 07/13/23 22:00 73 O2 Flow Rate 07/14/23 07:02 6 07/14/23 03:47 6 07/13/23 23:32 6 07/13/23 22:00 Diagnostic Findings Diagnostics: 07/11 TTE: No visualized vegetation. Micro Summary: 07/11 Wound Sacrum Cx: probable Pseudomonas 07/11 Sputum Cx trach: PsA (hollis-S) 07/10 BCx x2: NGTD 07/09 BCx x2: CoNS (2 morphologies) in 2/4 bottles; Corynebacterium in 1/4 bottles 07/08 BCx x2: Group C Strep in 2/4 bottles, CoNS (2 morphologies, both R-oxa) in 1/4 bottles 07/08 MRSA nares: neg Old micro: 07/06 Sputum cx: PsA (I cefepime, cipro, levo, pip/tazo. R ceftaz. S gent, mery, tobra), Group C Strep 06/15 Sputum cx: PsA (I cipro, levo. Otherwise S), Group C Strep Antibiotic Summary: Vanc 07/08 - 07/09, 07/10 present Meropenem 07/11 present Prior Ceftriaxone 2 g 07/09 07/10 Pip-tazo 07/08 - 07/09 Cefepime ~06/19 - 06/28 (per report) (2) Decubital ulcer Pressure injury location: sacral region Pressure injury stage: stage 4 Qualified Code(s): L89.154 - Pressure ulcer of sacral region, stage 4
[2023-07-14] MEDS: POLYETHYLENE (MIRALAX) 17 GM PACK PEG SCH ×2 (09:16→19:53)
[2023-07-14] MEDS: ASCORBIC ACID 500 MG TAB PEG SCH (09:16)
[2023-07-14] MEDS: APIXABAN 5 MG TABLET PO SCH ×2 (09:16→19:54)
[2023-07-14] MEDS: FERROUS SULFATE 325 MG/7.4 ML UDP PEG SCH (09:17)
--- NOTE | 2023-07-14 15:21 | Hospitalist Progress Note ---
Date of Service July 14, 2023 Assessment & Plan (1) Sepsis: Plan: Gram positive bacerteremia: group c strep.additional gram positive in clusters in 3 of 6 blood cx now described as coag negative staph not lugdunensisthese are oxacillin resistant, once culture is corynebacteria suspected source is his sacral ulcer for blood cultures . Sputum culture showing colonized pseudomonas given recurrent pseudomonas on cultures, however with increased secretions, on meropenem however chest x-ray is unremarkable. Urinalysis unremarkable. Possible some of his temperature and tachycardia related to initially missing his midday medications (patient has severe autonomic dysfunction vs NMS with withdrawal of dopamine agonists) Switched empiric antibiotics to meropenem to cover Pseudomonas; vancomycin due to additional gram positive blood cultures, ID recommending 7-10 D of treatment, snf aware of recommendations Trans thoracic echo shows improved EF and no valvular lesions Mother Tory Viveros [phone] reports she has guardianship and needs updated daily. His Aunt is also shared guardian but number is not on file. (2) Stage IV pressure ulcer of sacral region: Plan: Defer to surgery not regarding debridement at this time Consult wound care nurse for continued management plans on outpt wound care follow up (3) Transaminitis: Plan: Continue to monitor. No liver abnormality on CT. Acetaminophen level normal. Dantrolene is hepatotoxic however requires this for chronic spasticity and malignant hyperthermia - will continue for now although may need to be reconsidered if AST/ALT continue to rise without alternative explanation (4) Pneumatosis coli: Plan: no inital plans on invasive Management per surgery good bowel movements at current regiment (5) History of nontraumatic rupture of cerebral aneurysm: Plan: Patient is nonverbal at baseline with chronic contractures in all [address] head shows encephalomalacia and good shunt placement (6) Cardiomyopathy: Plan: Continue metoprolol Switched from IV fluids to PEG feeds (7) Tracheostomy status: Plan: Suctioning tracheostomy q2h and as needed. Next due to be changed on . (8) Decubitus ulcer of calf, unstageable: Plan: Eschar present with no surrounding cellulitis. pt tends to rest with legs crossed (9) Autonomic dysfunction: Plan: Continue dantrolene and bromocriptine, has had some normalization of vss (10) Severe protein-calorie malnutrition: Plan: Consult dietary, peptamin 1.5 250 ml q6 hours (11) History of DVT (deep vein thrombosis): Plan: Continue Eliquis Plan VTE prophylaxis - Eliquis via PEG Diet - n.p.o., consult dietary for tube feeds Admission and Anticipated Discharge Date Admission Date: July 08, 2023 anticipate discharge if facility can accommodate antibiotics Subjective pt remains non verbal and does not respond to commands Physical Exam Physical Exam: Attempt to open eyes but falls easily back to sleep does not reliably awakenen cardiac exam is regular lungs are clear abdomen NABS tolerating tube feeds wounds assessed and progressing well Results & Data Results & Data Vital Signs (Past 12 Hours) Vital Signs Temp Pulse Pulse Resp BP Pulse Ox O2 Del Method 07/14/23 15:11 99.1 F 93 H 19 112/72 99 Trach Collar 07/14/23 11:23 66 07/14/23 10:49 99.0 F 81 19 114/73 99 Trach Collar 07/14/23 10:42 Trach Collar 07/14/23 07:02 99.0 F 75 19 117/77 100 Trach Collar 07/14/23 03:47 98.8 F 79 16 105/64 100 Trach Collar O2 Flow Rate 07/14/23 15:11 6 07/14/23 11:23 07/14/23 10:49 6 07/14/23 10:42 6 07/14/23 07:02 6 07/14/23 03:47 6 PG Care Time/CCT Total # of Minutes Spent Total Time Spent with Patient: Total time spent is greater than 50% in coordination of care (as documented) at patient's floor/unit and/or counseling patient: Coding Level of Care Code 22604 SUB INP/OBS CARE 3/50MIN Diagnoses Sepsis A41.9 Stage IV pressure ulcer of sacral region L89.154 Transaminitis R74.01 Pneumatosis coli K63.89 History of nontraumatic rupture of cerebral aneurysm Z86.79 Cardiomyopathy I42.9 Tracheostomy status Z93.0 Decubitus ulcer of calf, unstageable L89.890 Autonomic dysfunction G90.9 Severe protein-calorie malnutrition E43 History of DVT (deep vein thrombosis) Z86.718
[2023-07-14] MEDS: SCOPOLAMINE 1 MG TDSY TD SCH (19:45)
[2023-07-14] MEDS: MELATONIN 3 MG TAB PO SCH (19:56)
[2023-07-15] MEDS: TUBE FEEDING WATER FLUSH GT SCH ×6 (01:50→21:07)
[2023-07-15] MEDS: MEROPENEM 500 MG in SYRINGE 0 ML IV SCH ×2 (03:34→09:00)
[2023-07-15] MEDS: VANCOMYCIN HCL 1,000 MG in SODIUM CHLORIDE 0.9% 250 ML IV SCH ×3 (05:19→21:07)
[2023-07-15] MEDS: BACLOFEN 20 MG TAB PEG SCH ×3 (05:21→20:59)
[2023-07-15] MEDS: DANTROLENE SODIUM 25 MG CAP PEG SCH ×4 (05:21→23:52)
[2023-07-15] MEDS: GABAPENTIN 250 MG/5 ML 470 ML BTL PEG SCH ×4 (05:21→23:52)
[2023-07-15] MEDS: ACETAMINOPHEN SUSP 325 MG/10.15 ML UDC PEG SCH ×4 (05:21→23:51)
[2023-07-15] MEDS: BROMOCRIPTINE MESYLATE 2.5 MG TAB PO SCH ×4 (05:21→23:52)
[2023-07-15] MEDS: PEPTAMEN 1.5 CAL 1,000 ML BAG PEG SCH ×4 (05:22→23:52)
[2023-07-15] MEDS: ASCORBIC ACID 500 MG TAB PEG SCH (07:42)
[2023-07-15] MEDS: APIXABAN 5 MG TABLET PO SCH ×2 (07:42→20:58)
[2023-07-15] MEDS: ZINC SULFATE 220 MG CAPSULE PEG SCH (07:42)
[2023-07-15] MEDS: METOPROLOL TARTRATE 25 MG TAB PEG SCH ×2 (07:43→20:58)
[2023-07-15] MEDS: POLYETHYLENE (MIRALAX) 17 GM PACK PEG SCH ×2 (07:43→20:59)
[2023-07-15] MEDS: PROSOURCE NO CARB 30 ML/PKT PEG SCH (07:44)
[2023-07-15 07:51] LABS: Est GFR (African American) > 150.0 ml/min; Est GFR (Non-African American) > 150.0 ml/min
--- NOTE | 2023-07-15 08:56 | Infectious Disease Progress Nt ---
Date of Service July 15, 2023 Assessment & Plan (1) Streptococcal bacteremia: (2) Decubital ulcer: (3) Bacteremia due to Staphylococcus: (4) Fever: (5) Increased tracheal secretions: Plan 32 yo M with history of ruptured cerebral aneurysm s/p craniotomy/hematoma evacuation during hospitalization from Aug - Feb 2023, BRUSH POL[employer]ER shunt, s/p trach and PEG, nonverbal, autonomic dysfunction who presented to [facility] on 07/08/23 due to fevers and worsening sacral ulcer with surrounding cellulitis, found to 07/08 BCx + have Group C Strep and CoNS (2 morphologies), and 07/09 BCx + for CoNS (2 morphologies) and Corynebacterium. The sacral ulcer was present during his admissions in March, however it has been getting progressively worse. Of note, patient had recently completed a course of cefepime x 10 days on 06/28/2023 for a respiratory infection (had 06/15 and 07/06 sputum cultures sent from his rehab which both grew Pseudomonas and Group C Strep, with the Pseudomonas developing resistance). Repeat BCx from 07/10 remain NGTD. Sacral wound cx from 07/11 with probable Pseudomonas, and sputum cx from 07/11 with PsA. Febrile on 07/10 with increased trach secretions, now afebrile and with improved secretions. Sacral wound continues to have yellowish exudate. On presentation 07/08, patient was febrile (TMax of 39.7) with CXR clear; CT A/P showed pneumatosis coli of cecum of unknown significance, sacral decubitus ulcer with associated subcutaneous edema and without drainable fluid collection or adjacent osseous erosion. Surgery did not feel that debridement was needed. The source of his fevers and polymicrobial bacteremia appears most likely from sacral wound SSTI, though considered respiratory source as well given fever and increased trach secretions on 07/10. Admission BCx from 07/08 are growing group C strep in 2/4 bottles and CoNS (2 morphologies), and repeat 07/09 BCx with both CoNS (2 morphologies) and Corynebacterium. The Group C Strep bacteremia is likely from SSTI, though also considered respiratory source (given that recent respiratory cx have grown Group C Strep). BCx from both 07/08 and 07/09 with multiple morphologies of CoNS; this is also likely from his sacral wound SSTI though also considered possibilities of contamination and deep-seated endovascu lar infection/IE. Corynebacterium may similarly represent contamination vs. SSTI. His BCx from 07/10 remain NGTD. TTE from 07/11 without visualized vegetations. It seems the only hardware/prosthetic device he has is a BRUSH POLISHER shunt. Lower suspicion for deep-seated endovascular infection at this time given the polymicrobial bacteremia with multiple morphologies of CoNS. BCx from 07/10 NG. He was originally started on vancomycin and Zosyn. It was initially felt that the Pseudomonas in the 07/06 respiratory culture may represent colonization, given that his respiratory status was at baseline, and CXR without opacities. Therefore, antibiotics were switched vanc and ceftriaxone. The pt then febrile on 07/10, with RN report of copious secretions from the trach, raising concern for a pneumonia/tracheobronchitis, however note that his fevers are difficult to interpret in the setting of his autonomic dysfunction. At that time, his abx were broadened to vancomycin and meropenem. Repeat sacral wound cx on 07/11 (after abx) with PsA (resistant to FQs, intermediate to cefepime/ceftazidime, S to pip-tazo), and sputum cx on 07/11 with PsA (hollis-S). Can continue IV vancomycin and change meropenem to and pip-tazo, which will cover for both sacral wound SSTI (growing PsA) and polymicrobial bacteremias (Group C, CoNS 2 morphologies, Corynebacterium). This will also cover for any component that may be from tracheitis. Will recommend a 10-day course to cover for polymicrobial bacteremias and sacral wound SSTI. ID Problem List: 1.Sacral decubitus ulcer with SSTI: CT without evidence of abscess or osteomyelitis. Sacral wound cx from 07/11 with probable Pseudomonas 2.Group C Strep bacteremia: likely 2/2 SSTI 3.CoNS bacteremia: contamination vs. true bacteremia, may be 2/2 SSTI. Grew from both 07/08 and 07/09 blood cultures. 4.Corynebacterium bacteremia: contamination vs. true bacteremia, may be 2/2 SSTI 5.Fevers 6.Possible tracheitis / increased tracheal secretions 07/10 7.Autonomic dysfunction: per notes, he gets rigid, tachycardic, hyperthermic if he misses his usual medications 8.Transaminitis: resolved 9.Pseudomonas in respiratory cx: on 07/06, after receiving a 10 day course of cefepime through 06/28/23. No respiratory issues this hospitalization, no hypoxia, CXR without consolidations. Has grown Pseudomonas in multiple respiratory culture from Mar, Apr, May 2023. Likely represents colonization. Recommendations: - Continue vancomycin 1000 mg IV Q8H (dosing per pharmacy, goal trough 12-18) to complete a 10-day total course (07/1007/19/23) - Start pip-tazo 4.5 g IV q6h through same EOT 07/19/23 as above (total anti- Pseudomonal course 07/08 07/09, 07/1107/19/23) - Stop meropenem - Continue sacral wound care, outpatient follow-up with wound care - Weekly lab monitoring while on IV antibiotics: CBC w/ diff, CMP, ESR, CRP - Please ensure close follow-up with PCP Plan discussed with hospitalist. Patient may be discharging today. Thank you for letting ID participate in the care of this patient. ID will sign off at this time. If questions, please [facility] at [phone]. Ambreen Meredith MD, MHS Infectious Diseases [facility]/ID Connect ID Connect direct line: [phone] Admission and Anticipated Discharge Date Admission Date: July 08, 2023 Subjective Subsequent visit was provided via telemedicine using two-way real-time interactive telecommunication between the patient and the telemedicine provider. For the duration of the visit, the provider was performing the assessment from a different facility than the patient. This includesuse of bluetooth stethoscope forauscultationperformed by the telepresenter that the telemedicine provider can hear if described in the physical exam. Oleomargarine Maker contact information: Please call ID Connect Call Center . (Phone Number For Physician Use Only) After establishing a telemedicine visit, patient was: Patient was verified with two unique identifiers and Gave permission to continue telehealth session Time Spent with Patient: Subsequent => 35 min - Afebrile - Still having tracheal secretions, sacral wound with some drainage - Seen by wound care - Possible discharge today Physical Exam Physical Exam: Exam obtained with aid of in-person telepresenter. General: Sleeping, chronically ill-appearing, no acute distress HEENT: Conjunctivae non-injected, sclerae anicteric, MMM, OP clear. Resp: Trach site c/d/i, minimal secretions in suction. Trach collar Abd: Soft, nondistended. PEG site c/d/i. : Condom cath in place Ext: No edema. No joint warmth or effusions noted. LLE and BLE with shallow ulcerations on dependent aspect and dressing/boots in place Skin: Sacral wound with continued yellowish exudate, surrounding erythema perhaps slightly improved. No other rashes or lesions. Neuro: Nonverbal. Psych: Unable to assess Results & Data Vital Signs (Past 12 Hours) Vital Signs Temp Pulse Pulse Resp BP BP Pulse Ox 07/15/23 08:00 07/15/23 07:25 37.0 C 82 20 105/68 99 07/15/23 07:00 78 07/15/23 04:21 36.7 C 92 H 20 106/69 99 07/14/23 23:17 81 07/14/23 22:51 37.0 C 82 19 106/69 100 O2 Del Method O2 Flow Rate 07/15/23 08:00 Trach Collar 8 07/15/23 07:25 Trach Collar 07/15/23 07:00 07/15/23 04:21 Trach Collar 07/14/23 23:17 07/14/23 22:51 Trach Collar Diagnostic Findings Diagnostics: 07/11 TTE: No visualized vegetation. Micro Summary: 07/11 Wound Sacrum Cx: PsA (R-levofloxacin/ciprofloxacin; I-cefepime/ceftazidime; S-pip-tazo/meropenem) 07/11 Sputum Cx trach: PsA (hollis-S) 07/10 BCx x2: NG 07/09 BCx x2: CoNS (2 morphologies) in 2/4 bottles (BCID + Staph epi); Corynebacterium in 1/4 bottles 07/08 BCx x2: Group C Strep in 2/4 bottles, CoNS (2 morphologies, both R-oxa) in 1/4 bottles (non-lugdenensis) 07/08 MRSA nares: neg Old micro: 07/06 Sputum cx: PsA (I cefepime, cipro, levo, pip/tazo. R ceftaz. S gent, mery, tobra), Group C Strep 06/15 Sputum cx: PsA (I cipro, levo. Otherwise S), Group C Strep Antibiotic Summary: Vanc 07/08 - 07/09, 07/10 present Pip-tazo 07/08 - 07/09, 07/15 present Prior Meropenem 07/11 07/15 Ceftriaxone 2 g 07/09 07/10 Cefepime ~06/19 - 06/28 (per report) (2) Decubital ulcer Pressure injury location: sacral region Pressure injury stage: stage 4 Qualified Code(s): L89.154 - Pressure ulcer of sacral region, stage 4
[2023-07-15] MEDS ORDERED: PIPER/TAZO 4.5g in D5W MINI-B 100 ML IV ONE (11:15)
--- NOTE | 2023-07-15 17:58 | Hospitalist Progress Note ---
Date of Service July 15, 2023 Assessment & Plan (1) Sepsis: Plan: Gram positive bacerteremia: group c strep.additional gram positive in clusters in 3 of 6 blood cx now described as coag negative staph not lugdunensisthese are oxacillin resistant, once culture is corynebacteria suspected source is his sacral ulcer for blood cultures . Sputum culture showing colonized pseudomonas given recurrent pseudomonas on cultures, however with increased secretions, on meropenem however chest x-ray is unremarkable. Urinalysis unremarkable. Possible some of his temperature and tachycardia related to initially missing his midday medications (patient has severe autonomic dysfunction vs NMS with withdrawal of dopamine agonists) Switched empiric antibiotics to zosyn to cover Pseudomonas; vancomycin due to additional gram positive blood cultures, ID recommending 7-10 D of treatment, snf aware of recommendations last dose of both antibiotics are 07/19/23 Trans thoracic echo shows improved EF and no valvular lesions Mother Tory Viveros [phone] reports she has guardianship and needs updated daily. (2) Stage IV pressure ulcer of sacral region: Plan: Defer to surgery not regarding debridement at this time Consult wound care nurse for continued management plans on outpt wound care follow up (3) Transaminitis: Plan: Continue to monitor. No liver abnormality on CT. Acetaminophen level normal. Dantrolene is hepatotoxic however requires this for chronic spasticity and malignant hyperthermia - will continue for now although may need to be reconsidered if AST/ALT continue to rise without alternative explanation (4) Pneumatosis coli: Plan: no inital plans on invasive Management per surgery good bowel movements at current regiment (5) History of nontraumatic rupture of cerebral aneurysm: Plan: Patient is nonverbal at baseline with chronic contractures in all [address] head shows encephalomalacia and good shunt placement (6) Cardiomyopathy: Plan: Continue metoprolol Switched from IV fluids to PEG feeds (7) Tracheostomy status: Plan: Suctioning tracheostomy q2h and as needed. Next due to be changed on . (8) Decubitus ulcer of calf, unstageable: Plan: Eschar present with no surrounding cellulitis. pt tends to rest with legs crossed (9) Autonomic dysfunction: Plan: Continue dantrolene and bromocriptine, has had some normalization of vss (10) Severe protein-calorie malnutrition: Plan: Consult dietary, peptamin 1.5 250 ml q6 hours (11) History of DVT (deep vein thrombosis): Plan: Continue Eliquis Plan VTE prophylaxis - Eliquis via PEG Diet - n.p.o., consult dietary for tube feeds Admission and Anticipated Discharge Date Admission Date: July 08, 2023 Subjective - Afebrile - Still having tracheal secretions, sacral wound with some drainage - Seen by wound care - id coordinating antibiotics Physical Exam Physical Exam: Attempt to open eyes but falls easily back to sleep does not reliably awakenen cardiac exam is regular lungs are clear abdomen NABS tolerating tube feeds wounds assessed and progressing well Results & Data Results & Data Vital Signs (Past 12 Hours) Vital Signs Temp Pulse Pulse Resp BP BP Pulse Ox 07/15/23 15:42 98.1 F 68 14 91/60 L 98 07/15/23 15:00 75 07/15/23 11:34 99.0 F 70 21 94/58 L 99 07/15/23 08:00 07/15/23 07:25 98.6 F 82 20 105/68 99 07/15/23 07:00 78 O2 Del Method O2 Flow Rate 07/15/23 15:42 Trach Collar 07/15/23 15:00 07/15/23 11:34 Trach Collar 07/15/23 08:00 Trach Collar 8 07/15/23 07:25 Trach Collar 07/15/23 07:00 Laboratory Results Discussed case with infectious disease PG Care Time/CCT Total # of Minutes Spent Total Time Spent with Patient: Total time spent is greater than 50% in coordination of care (as documented) at patient's floor/unit and/or counseling patient: Coding Level of Care Code 92371 SUB INP/OBS CARE 2/35MIN Diagnoses Sepsis A41.9 Stage IV pressure ulcer of sacral region L89.154 Transaminitis R74.01 Pneumatosis coli K63.89 History of nontraumatic rupture of cerebral aneurysm Z86.79 Cardiomyopathy I42.9 Tracheostomy status Z93.0 Decubitus ulcer of calf, unstageable L89.890 Autonomic dysfunction G90.9 Severe protein-calorie malnutrition E43 History of DVT (deep vein thrombosis) Z86.718
[2023-07-15] MEDS: PIPERACILLIN/TAZOBACTAM 4.5 GM in DEXTROSE 5% MINI-B 100 ML IV SCH (20:46)
[2023-07-15] MEDS: MELATONIN 3 MG TAB PO SCH (21:03)
[2023-07-16] MEDS: PIPERACILLIN/TAZOBACTAM 4.5 GM in DEXTROSE 5% MINI-B 100 ML IV SCH ×3 (00:56→17:06)
[2023-07-16] MEDS: TUBE FEEDING WATER FLUSH GT SCH ×6 (00:58→21:03)
[2023-07-16] MEDS: DANTROLENE SODIUM 25 MG CAP PEG SCH ×3 (05:35→17:06)
[2023-07-16] MEDS: BACLOFEN 20 MG TAB PEG SCH ×3 (05:35→21:08)
[2023-07-16] MEDS: ACETAMINOPHEN SUSP 325 MG/10.15 ML UDC PEG SCH ×3 (05:35→17:07)
[2023-07-16] MEDS: GABAPENTIN 250 MG/5 ML 470 ML BTL PEG SCH ×3 (05:35→17:07)
[2023-07-16] MEDS: BROMOCRIPTINE MESYLATE 2.5 MG TAB PO SCH ×3 (05:35→17:06)
[2023-07-16] MEDS: VANCOMYCIN HCL 1,000 MG in SODIUM CHLORIDE 0.9% 250 ML IV SCH ×3 (05:36→21:08)
[2023-07-16] MEDS: PEPTAMEN 1.5 CAL 1,000 ML BAG PEG SCH ×3 (05:36→17:06)
[2023-07-16] MEDS: ZINC SULFATE 220 MG CAPSULE PEG SCH (08:18)
[2023-07-16] MEDS: ASCORBIC ACID 500 MG TAB PEG SCH (08:18)
[2023-07-16] MEDS: FERROUS SULFATE 325 MG/7.4 ML UDP PEG SCH (08:18)
[2023-07-16] MEDS: PROSOURCE NO CARB 30 ML/PKT PEG SCH (08:18)
[2023-07-16] MEDS: METOPROLOL TARTRATE 25 MG TAB PEG SCH ×2 (08:18→19:41)
[2023-07-16] MEDS: APIXABAN 5 MG TABLET PO SCH ×2 (08:39→21:04)
[2023-07-16] MEDS: POLYETHYLENE (MIRALAX) 17 GM PACK PEG SCH ×2 (08:53→21:09)
[2023-07-16] MEDS ORDERED: VANCOMYCIN LEVEL ONE (13:30)
--- NOTE | 2023-07-16 14:10 | Pharmacy Report ---
Pharmacy PK ABX Note - Date of Service July 16, 2023 - Assessment and Plan Assessment 07/16: Plan is to continue vancomycin and Zosyn until 07/19/23 per ID. Renal function remains stable. 07/13/23: * Vanc trough obtained this morning (17.8 mcg/mL) indicating that current vanc dosing remains appropriate. * BCx with staph and strep; sputum and sacral cx with GNB (pending ID/sens) * Continue vanc and meropenem, per ID 07/10/23: 32 year old M, paraplegic, with sacral ulcer/bacteremia. Treated with Vancomycin & Zosyn 07/08-07/09, changed to ceftriaxone 07/09 for Group C Strep bacteremia. GPCs growing in 07/09 blood culture, restart Vanco today per ID consult. Repeat BCx 07/10. No need to treat pseudomonas in sputum cultures at this time, likely colonization, CXR negative, lungs clear. Plan Vancomycin * Continue 1000 mg IV every 8 hours * Regimen is predicted to achieve target AUC/BASHIR of 400-600 mg/L.hr * If vancomycin needs to be adjusted to less frequent regimen in order to facilitate discharge, could consider 1250 mg IV q12h to complete therapy. * No further levels needed at this time Zosyn * 4.5 g IV q8h Pharmacy will continue to follow and will adjust dose/frequency as necessary. Thank you. Pharmacy has transitioned to AUC monitoring for vancomycin. AUC/BASHIR is the preferred PK/PD target and is associated with decreased risk of nephrotoxicity compared to traditional trough targets.
--- NOTE | 2023-07-16 19:34 | Hospitalist Progress Note ---
Date of Service July 16, 2023 Assessment & Plan (1) Sepsis: Plan: Gram positive bacteremia: group c strep.additional gram positive in clusters in 3 of 6 blood cx now described as coag negative staph not lugdunensisthese are oxacillin resistant, once culture is corynebacteria suspected source is his sacral ulcer for blood cultures . Sputum culture showing colonized pseudomonas given recurrent pseudomonas on cultures, however with increased secretions, on meropenem however chest x-ray is unremarkable. Urinalysis unremarkable. Possible some of his temperature and tachycardia related to initially missing his midday medications (patient has severe autonomic dysfunction vs NMS with withdrawal of dopamine agonists) Switched empiric antibiotics to zosyn to cover Pseudomonas; vancomycin due to additional gram positive blood cultures, ID recommending 7-10 D of treatment, snf aware of recommendations last dose of both antibiotics are 07/19/23, not great for lessening vancomycin intervals Trans thoracic echo shows improved EF and no valvular lesions Mother Tory Viveros [phone] reports she has guardianship and needs updated daily. (2) Stage IV pressure ulcer of sacral region: Plan: Defer to surgery not regarding debridement at this time Consult wound care nurse for continued management plans on outpt wound care follow up (3) Transaminitis: Plan: Continue to monitor. No liver abnormality on CT. Acetaminophen level normal. Dantrolene is hepatotoxic however requires this for chronic spasticity and malignant hyperthermia - will continue for now although may need to be reconsidered if AST/ALT continue to rise without alternative explanation (4) Pneumatosis coli: Plan: no inital plans on invasive Management per surgery good bowel movements at current regiment (5) History of nontraumatic rupture of cerebral aneurysm: Plan: Patient is nonverbal at baseline with chronic contractures in all [address] head shows encephalomalacia and good shunt placement (6) Cardiomyopathy: Plan: Continue metoprolol Switched from IV fluids to PEG feeds (7) Tracheostomy status: Plan: Suctioning tracheostomy q2h and as needed. Next due to be changed on . (8) Decubitus ulcer of calf, unstageable: Plan: Eschar present with no surrounding cellulitis. pt tends to rest with legs crossed (9) Autonomic dysfunction: Plan: Continue dantrolene and bromocriptine, has had some normalization of vss (10) Severe protein-calorie malnutrition: Plan: Consult dietary, peptamin 1.5 250 ml q6 hours (11) History of DVT (deep vein thrombosis): Plan: Continue Eliquis Plan VTE prophylaxis - Eliquis via PEG Diet - n.p.o., consult dietary for tube feeds Admission and Anticipated Discharge Date Admission Date: July 08, 2023 Subjective - Afebrile - minimal tracheal secretions, sacral wound with local care - Seen by wound care, outpt appointment friday 07/21 - id coordinating antibiotics Physical Exam Physical Exam: Attempt to open eyes but falls easily back to sleep does not reliably awakenen cardiac exam is regular lungs are clear abdomen NABS tolerating tube feeds wounds assessed and progressing well Results & Data Results & Data Vital Signs (Past 12 Hours) Vital Signs Temp Pulse Pulse Resp BP Pulse Ox O2 Del Method 07/16/23 15:53 97.7 F 90 17 104/71 96 Trach Collar 07/16/23 10:52 97.9 F 70 17 95/61 L 100 Trach Collar 07/16/23 08:00 85 07/16/23 08:00 T-Piece, Trach Collar PG Care Time/CCT Total # of Minutes Spent Total Time Spent with Patient: Total time spent is greater than 50% in coordination of care (as documented) at patient's floor/unit and/or counseling patient: Coding Level of Care Code 20939 SUB INP/OBS CARE 2/35MIN Diagnoses Sepsis A41.9 Stage IV pressure ulcer of sacral region L89.154 Transaminitis R74.01 Pneumatosis coli K63.89 History of nontraumatic rupture of cerebral aneurysm Z86.79 Cardiomyopathy I42.9 Tracheostomy status Z93.0 Decubitus ulcer of calf, unstageable L89.890 Autonomic dysfunction G90.9 Severe protein-calorie malnutrition E43 History of DVT (deep vein thrombosis) Z86.718
[2023-07-16] MEDS: MELATONIN 3 MG TAB PO SCH (21:08)
[2023-07-17] MEDS: ACETAMINOPHEN SUSP 325 MG/10.15 ML UDC PEG SCH ×3 (00:04→11:50)
[2023-07-17] MEDS: DANTROLENE SODIUM 25 MG CAP PEG SCH ×3 (00:05→11:50)
[2023-07-17] MEDS: GABAPENTIN 250 MG/5 ML 470 ML BTL PEG SCH ×3 (00:05→11:50)
[2023-07-17] MEDS: PIPERACILLIN/TAZOBACTAM 4.5 GM in DEXTROSE 5% MINI-B 100 ML IV SCH ×3 (00:05→16:00)
[2023-07-17] MEDS: BROMOCRIPTINE MESYLATE 2.5 MG TAB PO SCH ×3 (00:05→11:50)
[2023-07-17] MEDS: PEPTAMEN 1.5 CAL 1,000 ML BAG PEG SCH ×3 (00:06→13:22)
[2023-07-17] MEDS: TUBE FEEDING WATER FLUSH GT SCH ×4 (00:19→11:50)
[2023-07-17] MEDS: BACLOFEN 20 MG TAB PEG SCH ×2 (05:03→14:13)
[2023-07-17] MEDS: VANCOMYCIN HCL 1,000 MG in SODIUM CHLORIDE 0.9% 250 ML IV SCH ×2 (07:26→14:13)
[2023-07-17] MEDS: METOPROLOL TARTRATE 25 MG TAB PEG SCH (08:43)
[2023-07-17] MEDS: ZINC SULFATE 220 MG CAPSULE PEG SCH (08:43)
[2023-07-17] MEDS: APIXABAN 5 MG TABLET PO SCH (08:43)
[2023-07-17] MEDS: PROSOURCE NO CARB 30 ML/PKT PEG SCH (08:44)
[2023-07-17] MEDS: ASCORBIC ACID 500 MG TAB PEG SCH (08:44)
[2023-07-17] MEDS: POLYETHYLENE (MIRALAX) 17 GM PACK PEG SCH (08:44)
--- NOTE | 2023-07-17 19:15 | Discharge Summary ---
Date of Service July 17, 2023 Admission HPI Per Admitting Provider Ry Viveros is a 32-year-old male presents to the ER due to worsening sacral ulcer. Unable to get any history from the patient due to his nonverbal status. History obtained from [facility] notes and discussion with his mother who is his guardian over the phone. Sacral ulcer was present during his admissions in March however has been progressively getting worse during that time therefore was sent to the ER. He was notably recently on cefepime for 10 days which stopped on June 28 for a respiratory (presumably for the Pseudomonas) infection. He has a complex medical history including chronic trach, PEG tube, nonverbal status following ruptured brain aneurysm and subsequent craniotomy/hematoma evacuation during hospitalization from August-February 2023. On discussion with his mother and on review of previous notes if he misses his usual medications he declines quickly with rigid, tachycardic and hyperthermic due to severe autonomic dysfunction. He received his 6 AM medications today but not his midday medications. Principal Diagnosis Gram-positive polymicrobial bacteremia. Discharge Exam In general he is lying in bed does not appear to be in any distress. Breathing unlabored no accessory muscle use good effort. Breathing appears to be unlabored. Chronic appearing contractures. Discharge Data Allergies Allergy/AdvReac Type Severity Reaction Status Date / Time No Known Allergies Allergy Unverified 07/08/23 15:52 Consultations 07/08/23 14:16 ED Decision to Admit Stat 07/09/23 09:08 Consult General Surgery Routine 07/09/23 14:53 Consult Infectious Diseases Routine 07/16/23 19:37 [facility] Ordered Studies 07/08/23 11:41 CT abd pelvis IV con only Stat 07/12/23 17:40 CT head/brain wo con Routine Hospital Course (1) Sepsis: Gram positive bacteremia: group c strep.additional gram positive in clusters in 3 of 6 blood cx now described as coag negative staph not lugdunensisthese are oxacillin resistant, once culture is corynebacteria suspected source is his sacral ulcer for blood cultures . Sputum culture showing colonized pseudomonas given recurrent pseudomonas on cultures, however with increased secretions, on meropenem however chest x-ray is unremarkable. Urinalysis unremarkable. Possible some of his temperature and tachycardia related to initially missing his midday medications (patient has severe autonomic dysfunction vs NMS with withdrawal of dopamine agonists) Switched empiric antibiotics to zosyn to cover Pseudomonas; vancomycin due to additional gram positive blood cultures, ID recommending 7-10 D of treatment, snf aware of recommendations last dose of both antibiotics are 07/19/23 Trans thoracic echo shows improved EF and no valvular lesions family was updated by hospitalist yesterday about anticipated discharge, case management updated them today (i was looking in chart to find information and noted that case management had updated already - assistance appreciated) (2) Stage IV pressure ulcer of sacral region: Defer to surgery not regarding debridement at this time Consult wound care nurse for continued management plans on outpt wound care follow up (3) Transaminitis: Continue to monitor. No liver abnormality on CT. Acetaminophen level normal. Dantrolene is hepatotoxic however requires this for chronic spasticity and malignant hyperthermia - will continue for now although may need to be reconsidered if AST/ALT continue to rise without alternative explanation weekly CMP (4) Pneumatosis coli: no inital plans on invasive Management per surgery good bowel movements at current regiment (5) History of nontraumatic rupture of cerebral aneurysm: Patient is nonverbal at baseline with chronic contractures in all [address] head shows encephalomalacia and good shunt placement (6) Cardiomyopathy: (7) Tracheostomy status: Suctioning tracheostomy q2h and as needed. Next due to be changed on . (8) Decubitus ulcer of calf, unstageable: Eschar present with no surrounding cellulitis. pt tends to rest with legs crossed (9) Autonomic dysfunction: Continue dantrolene and bromocriptine, has had some normalization of vss (10) Severe protein-calorie malnutrition: Consult dietary, peptamin 1.5 250 ml q6 hours (11) History of DVT (deep vein thrombosis): Continue Eliquis Plan VTE prophylaxis - Eliquis via PEG Diet - n.p.o., consult dietary for tube feeds Total Time Total Time Spent Total Time Spent (In Minutes): <30 Discharge Plan Discharge Items Patient Disposition: Transfer Snf Fac Reason For Visit: SEPSIS, SACRAL ULCER Discharge Diagnosis: sepsis, bacteremia Activity: Resume your previous activity Non-emergency contact: Primary Care Provider Call non-emergency contact if: you have any medication questions, your symptoms worsen and you have a fever Follow-up/Referrals: Edgardo Pruett [Primary Care Provider] - Diet: Other - See Diet Comment Diet Comment: tube feeds as per prior Addtl Attending Provider Instructions: ongoing vancomycin and zosyn as per orders. last dose of both to be 07/19/23. ongoing wound care for sacral wound - wound clinic referral if needed consider repeat blood cultures ~48-72hrs after completion of course of antibiotics depending on pt's clinical picture weekly CBC, CMP Pending Studies at Discharge: No Stand-Alone Forms: My [facility] Skilled Items Patient informed of condition?: Yes DNR: No Discharge Level of Care: Skilled Communicable Disease: No Discharge Prognosis: Stable Lines: Peripheral IV Urinary Catheter: Yes Medications and DC Order Prescriptions: Continued scopolamine base 1 mg over 3 days Patch 3 Day 1 patch TRANSDERMAL Q3D dantrolene 25 mg Capsule 100 mg PEG Q6 Qty: 120 11RF gabapentin 250 mg/5 mL Solution 400 mg PEG Q6 Qty: 250 11RF Rx Instructions: 8 ml dose bromocriptine 2.5 mg Tablet 2.5 mg feeding tube Q6 Qty: 120 11RF acetaminophen 325 mg/10.15 mL Suspension 650 mg PEG Q6 Qty: 250 0RF bisacodyl 10 mg Suppository 10 mg CA .EVERY 24 HOURS PRN (Reason: Constipation) melatonin 3 mg Tablet 3 mg feeding tube HS ascorbic acid (vitamin C) 500 mg Tablet 500 mg PO DAILY ferrous sulfate 300 mg (60 mg iron)/5 mL Liquid 325 mg feeding tube Q OTHER DAY multivitamin Tablet 1 tab feeding tube QAM polyethylene glycol 3350 [Miralax] 17 gram Powder In Packet 17 g feeding tube BID zinc sulfate 50 mg zinc (220 mg) Tablet 50 mg PO DAILY Eliquis 5 mg tablet 5 mg feeding tube BID metoprolol tartrate 25 mg tablet 25 mg PEG Q12 Proheal 30 ml feeding tube BID Rx Instructions: mix well with 100 ml water baclofen 20 mg tablet 20 mg feeding tube Q8 Jevity 1.5 Lance 0.06 gram-1.5 kcal/mL Liquid 1 ea feeding tube Q4 Rx Instructions: 240 ml bolus q4 hours for total volume of 1440 ml per day water Liquid 1 ea UD Rx Instructions: 200 ml of water flush every 4 hours via gravity total 2000 ml magnesium hydroxide [Milk of Magnesia] 400 mg/5 mL Suspension 2,400 mg PO DAILY PRN (Reason: Constipation) Rx Instructions: give if no BM on the morning of the 3rd day Fleet Enema 19-7 gram/118 mL Enema 118 ml CA .MORNING OF 4TH DAY PRN (Reason: Constipation) Rx Instructions: gvie in the morning of the 4th day without a BM Santyl 250 unit/gram Ointment 1 applic TOPICAL .EVERY DAY SHIFT Rx Instructions: cleanse with normal saline,apply Santyl to base of wound,secure with borered dressing. Santyl 250 unit/gram Ointment 1 applic TOPICAL DIRECTED PRN (Reason: soilage/dislodgement) Rx Instructions: apply to sacrum topically as neded for soilage/dislodgement. cleanse with normal saline,apply Santyl to base of wound,secure with bordered dressing Discharge Orders: Discharge Order (Routine); Ordered 07/17/23 Ordered By: Allen Anderson Admission Data Admit Date/Time: 07/08/23 14:39 Attending Provider: Allen Anderson Admit Provider: Wilner Holland Primary Care Provider: Edgardo Pruett Other Providers: Wilner Holland; Jamel Batista; Joel Rutherford; Vy Theodore; Mark Jennings; Mesfin Simental; Rosalie Dunn; Nathalie Anderson; Selvin Beauchamp Jr; Jenn Luther; Christopher Kothari; Kaya Colin; Saira Maki; Jenny Lake; Tom Fair; Vidhya Arreola; Nohemi Gifford; Ronnie Agustin; Ayesha Barrios; Ambreen Meredith Other Interventions: Discharge Summary Assessment (RN) Last Done: 07/17/23 14:34 Coding Level of Care Code 83836 IN/OBS DISCH 30 MIN/LESS Diagnoses Sepsis A41.9 Stage IV pressure ulcer of sacral region L89.154 Transaminitis R74.01 Pneumatosis coli K63.89 History of nontraumatic rupture of cerebral aneurysm Z86.79 Cardiomyopathy I42.9 Tracheostomy status Z93.0 Decubitus ulcer of calf, unstageable L89.890 Autonomic dysfunction G90.9 Severe protein-calorie malnutrition E43 History of DVT (deep vein thrombosis) Z86.714
== END 2023-07-17 17:53 | DRG 871 ==
LOC: ED 09:39 → SUATTDRO 14:39 → 2S 14:39

== ENCOUNTER 2023-07-18 12:17 | Inpatient (IN) ==
--- NOTE | 2023-07-18 12:35 | Emergency Department Note ---
Impression & Plan SOB (shortness of breath) ED Provider Note NAME: NAYELY DOBSON AGE: 32 SEX: M : 1990 ARRIVES VIA: Public Transportation INFORMANT: EMS ED PROVIDER(S): Christiano Allan DO CHIEF COMPLAINT: Return visit HPI: The patient is a 32-year-old male who presented to the emergency department for reevaluation. The patient was seen overnight in our facility. Patient has a history of gram-positive bacteremia. 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 Patient is completely reliant on medical care. He has a trach. He has a feeding tube. The patient is currently being treated for bacteremia. Apparently overnight there was concern that he may have been having trouble breathing. He was cleared and discharged back to his shelter but when he arrived there he was refused reentry and was brought back to the emergency department. ROS: See above HPI for pertinent positives & negatives. A total of 10 systems reviewed and were otherwise negative. PAST MEDICAL HISTORY: See Below PAST SURGICAL HISTORY: See Below FAMILY HISTORY: See Below SOCIAL HISTORY: See Below HOME MEDICATIONS: See Below ALLERGIES: See Below VITALS: See Below PHYSICAL EXAMINATION: GENERAL: The patient is looking around the room but does not respond to verbal commands. EYES: The conjunctivae are clear. The pupils are round and reactive. EARS, NOSE, MOUTH AND THROAT: The nose is without any evidence of any deformity. NECK: Trach site was noted and was clear of discharge or redness. RESPIRATORY: Normal respiratory effort is noted there is no evidence of wheezing rhonchi or rales CARDIOVASCULAR: Regular rate and rhythm noted there no murmurs rubs or gallops normal S1 normal S2. GASTROINTESTINAL: The abdomen is soft. Abdomen is nontender. MUSCULOSKELETAL/EXTREMITIES: Lower extremities are noted to have no deformity SKIN: there is no pedal edema. NEUROLOGIC: Patient is awake but he does not answer questions. MEDICAL DECISION MAKING: The patient is a 32-year-old male who presented to the emergency department by ambulance. The patient was seen in our facility recently. He was discharged from our hospital this week. The patient was discharged back to his personal- alf but then sent back to our facility last evening. No acute abnormality was noted and the patient was not felt to be in need of inpatient treatment. The patient was discharged from our emergency department back to the shelter they refused to take the patient back. He was brought back to the emergency department for further evaluation. The patient will require formal placement. For this reason I discussed patient's condition with the on-call [facility] hospitalist. They have agreed to evaluate the patient in the emergency department. I did review the patient's visit from last evening. Triage Nursing notes reviewed. Prior medical records reviewed Vital Signs: reviewed and remarkable for no significant abnormalities Differential diagnosis: Reactive airway disease, pneumonia, pneumothorax, COPD, CHF, infections, cardiac ischemia, pulmonary embolism, musculoskeletal, gastrointestinal, as well as other pathologies. ER treatment provided: See below Diagnostics interpreted by me: ECG: none Cardiac Monitoring: An order was placed for continuous cardiac monitoring. The monitor shows a rate of 87 bpm with sinus rhythm. Laboratory studies: As stated above and show below. Imaging studies: See below. Consultation(s): I discussed this case with Dr. Holland Past Med/Surg History Medical History History of DVT (deep vein thrombosis) Moderate protein-calorie malnutrition History of nontraumatic rupture of cerebral aneurysm History of traumatic brain injury Surgical History S/P LEAD ESTHETICIAN shunt Social History Smoking Status: Never smoker Tobacco Type: Cigarettes Second Hand Exposure: No; Do You Dip or Chew Tobacco: No; Hx Alcohol Use: No Hx Substance Use: No Preferred Language: Chadian Communication Ability: Unable Twist Packer Required: No Beliefs That Will Affect Care: None Current Living Situation: Longterm Feels Safe at Home: Yes Assistive Devices: Other Allergies Allergies Allergy/AdvReac Type Severity Reaction Status Date / Time No Known Allergies Allergy Unverified 07/08/23 15:52 Home Meds Home Medications Medication Instructions Recorded Confirmed scopolamine base 1 mg over 3 days 1 patch transdermal Q3D 04/02/23 07/18/23 transdermal patch bisacodyl 10 mg rectal suppository 10 mg TX .EVERY 24 HOURS PRN 05/04/23 07/18/23 Constipation Proheal 30 ml feeding tube BID 07/08/23 07/18/23 apixaban 5 mg tablet (Eliquis) 5 mg feeding tube BID 07/08/23 07/18/23 ascorbic acid (vitamin C) 500 mg 500 mg PO DAILY 07/08/23 07/18/23 tablet baclofen 20 mg tablet 20 mg feeding tube Q6 07/08/23 07/18/23 collagenase clostridium histo. 250 1 applic topical .EVERY DAY SHIFT 07/08/23 07/18/23 unit/gram topical ointment (Santyl) collagenase clostridium histo. 250 1 applic topical DIRECTED PRN 07/08/23 07/18/23 unit/gram topical ointment (Santyl) soilage/dislodgement ferrous sulfate 300 mg (60 mg 325 mg feeding tube Q OTHER DAY 07/08/23 07/18/23 iron)/5 mL oral liquid lactose-reduced food with fiber 1 ea feeding tube Q4 07/08/23 07/18/23 0.06 gram-1.5 kcal/mL oral liquid (Jevity 1.5 Lance) magnesium hydroxide 400 mg/5 mL 2,400 mg feeding tube DAILY PRN 07/08/23 07/18/23 oral suspension (Milk of Magnesia) Constipation metoprolol tartrate 25 mg tablet 25 mg PEG Q12 07/08/23 07/18/23 multivitamin 1 tab feeding tube QAM 07/08/23 07/18/23 sodium phosphates 19 gram-7 118 ml TX .MORNING OF 4TH DAY PRN 07/08/23 07/18/23 gram/118 mL enema (Fleet Enema) Constipation water 1 ea UD 07/08/23 07/18/23 zinc sulfate 50 mg zinc (220 mg) 50 mg feeding tube DAILY 07/08/23 07/18/23 tablet Magic Mix See Rx Instructions .Route .COMPLEX 07/18/23 07/18/23 Saccharomyces boulardii 250 mg 250 mg feeding tube DAILY 07/18/23 07/18/23 capsule dantrolene 100 mg capsule 100 mg feeding tube Q6H 07/18/23 07/18/23 gabapentin 400 mg capsule 400 mg feeding tube Q4H 07/18/23 07/18/23 Previous Rx's Medication Instructions Recorded acetaminophen 325 mg/10.15 mL oral 650 mg (20.3 mL) PEG Q6 #250 mL 04/17/23 suspension bromocriptine 2.5 mg tablet 2.5 mg feeding tube Q6 #120 tabs 04/17/23 Results & Data (ED) Vital Signs Vital Signs - 24 hr 07/18/23 12:06 07/18/23 12:46 07/18/23 12:47 Temperature 36.4 C L Temperature Source Axillary Pulse Rate 80 73 76 Pulse Rhythm Regular Pulse Strength Normal Respiratory Rate 20 Respiratory Effort / Characteristics Non-Labored Spontaneous Respiratory Depth Normal Respiratory Pattern Regular Blood Pressure 112/76 Blood Pressure Mean 88 Blood Pressure Position Lying Pulse Oximetry 99 Oxygen Delivery Method Trach Collar Oxygen Flow Rate 6 Sepsis Recent Fever Within 48 Hours No Sepsis New/Unexplained Change in Mental Status N/A Sepsis Action Taken by Nursing No Action Required Home Medications Current Medication List: was personally reviewed by me Laboratory Data 07/18/23 14:35 07/18/23 14:35 Discharge Plan Visit Data Chief Complaint: Shortness of Breath/Dyspnea ED Provider: Christiano Allan Discharge Problem: SOB (shortness of breath) Patient Disposition: Being Evaluated by Hospitalist Discharge Instructions Interventions: ED Discharge Assessment Last Done: 07/18/23 13:51
--- NOTE | 2023-07-18 13:00 | History & Physical Report ---
Date of Service July 18, 2023 Assessment & Plan (1) Hospital admission due to lack of caregiver: Plan: -Admit to med/tele on pulse oximetry -Currently hemodynamically stable, stable on baseline 6L via trach collar, and non-toxic appearing -Was brought back to the ED via EMS after [facility] refused to take the patient back due to lack of bed availability >Mother is working with Case Management to figure out new disposition on discharge -He is otherwise at his current baseline since being discharged from [facility] on 07/17/23 -Continue NPO status -Will consult cook barbecue for tube feed recommendations -Continue BID Eliquis pe PEG for DVT PPX -Will obtain CBC, CMP, mag, lactate, and procal on admission (2) Gram-positive bacteremia: Plan: -Gram positive bacteremia: group c strep.additional gram positive in clusters in 3 of 6 blood cx now described as coag negative staph not lugdunensisthese are oxacillin resistant, once culture is corynebacteria -suspected source is his sacral ulcer for blood cultures -Sputum culture showing colonized pseudomonas given recurrent pseudomonas on cultures, however with increased secretions, on meropenem however chest x-ray is unremarkable. Urinalysis unremarkable. -Possible some of his temperature and tachycardia related to initially missing his midday medications (patient has severe autonomic dysfunction vs NMS with withdrawal of dopamine agonists) -Switched empiric antibiotics to zosyn to cover Pseudomonas; vancomycin due to additional gram positive blood cultures, ID recommending 7-10 D of treatment, last dose of both antibiotics are 07/19/23 Trans thoracic echo shows improved EF and no valvular lesions -Continue to monitor for fever and worsening leukocytosis (3) Decubitus ulcer of sacral region, stage 4: Plan: -Surgery was consulted last admission, did not recommend debridement -wound care nurse consulted for continued management -plans on outpt wound care follow up (4) Transaminitis: Plan: -Reported during last admission, will follow repeat CMP ordered on admission today -No liver abnormality on CT during last admission -Acetaminophen level last admission was WNL -Dantrolene is hepatotoxic however requires this for chronic spasticity and malignant hyperthermia - will continue for now although may need to be reconsidered if AST/ALT continue to rise without alternative explanation (5) Severe protein-calorie malnutrition: Plan: -Consult dietary, peptamin 1.5 250 ml q6 hours (6) History of DVT (deep vein thrombosis): Plan: Continue Eliquis (7) Pneumatosis coli: Plan: -Evaluated by General surgery last admission, no initial plans on invasive Management -Continue home bowel regimen -Monitor for constipation (8) History of nontraumatic rupture of cerebral aneurysm: Plan: -Patient is nonverbal at baseline with chronic contractures in all 4 extremities -CT head shows encephalomalacia and good shunt placement (9) Autonomic dysfunction: Plan: -Continue dantrolene and bromocriptine (10) Decubitus ulcer of calf, unstageable: Plan: -Eschar present with no surrounding cellulitis. -pt tends to rest with legs crossed -Continue wound care nurse consult (11) Cardiomyopathy: Plan: -Euvolemic on exam -Prison Librarian conslt placed for tube feeds -Continue water boluses (12) Tracheostomy status: Plan: -Q-shift trach care ordered Plan The patient was discussed with Dr. Holland at the time of the admission History of Present Illness Chief Complaint: Need for re-placement Primary Care Provider: [facility] is a 32 year old male with a PMH significant for chronic trach, PEG tube, nonverbal status following ruptured brain aneurysm and subsequent craniotomy/hematoma evacuation during hospitalization from August-February 2023, hx of DVT now on Eliquis, Stage IV sacral pressure ulcer, transaminitis, Cardiomyopathy, autonomic dysfunction, unstageable pressure of the calf, severe malnutrition, and gram positive bacteremia who was sent back to the [facility] ED via EMS after being refused for re-admission at [facility]. It appears that the plans for the patient were to eventually be moved to [facility] when a bed was available but was to return to [facility] until then. On initial arrival back at [facility] on 07/17 he was reportedly having breathing difficulties and family requested he bed evaluated in the ED. His workup was remarkable for an increased leukocytosis of 11.89 (up from 8.91 as of 07/13) but was otherwise unremarkable. Chest xray was negative for acute findings, UA was negative for infection. He remained stable on his baseline 6L via his trache collar. He was discharged back to [facility] early this am. However, when EMS transported him back to [facility] they refused to accept him and demanded he be taken back to the ED for placement at another facility. On arrival in the ED he was noted to be stable. At the time of the exam the patient was resting comfortably in bed in no acute distress. He opens his eyes shortly when woken but falls back asleep, which appears to be his baseline. Per chart review, the patient was just admitted to [facility] from 07/08-07/17 for sepsis due to gram positive bacteremia (coag negative staph not lugdunensis) thought to be from his sacral ulcer, transaminitis, Pneumatosis coli, and unstageable pressure of the calf. Please see discharge summary from 07/17/23 for details. I called and spoke to the patient's mother, Sharlene Viveros ([phone]) to inform her of the present situation. She is aware of the situation and is working with our therapeutic case manager to coordinate a discharge plan moving forward. Please refer to Dr. Holland's attestation for any changes to the treatment plan Allergies Allergy/AdvReac Type Severity Reaction Status Date / Time No Known Allergies Allergy Unverified 07/08/23 15:52 Home Medications Medication Instructions Recorded Confirmed Type scopolamine base 1 mg over 3 days 1 patch transdermal Q3D 04/02/23 07/18/23 History transdermal patch acetaminophen 325 mg/10.15 mL oral 650 mg (20.3 mL) PEG Q6 #250 mL 04/17/23 07/18/23 Rx suspension bromocriptine 2.5 mg tablet 2.5 mg feeding tube Q6 #120 tabs 04/17/23 07/18/23 Rx bisacodyl 10 mg rectal suppository 10 mg PA .EVERY 24 HOURS PRN 05/04/23 07/18/23 History Constipation Proheal 30 ml feeding tube BID 07/08/23 07/18/23 History apixaban 5 mg tablet (Eliquis) 5 mg feeding tube BID 07/08/23 07/18/23 History ascorbic acid (vitamin C) 500 mg 500 mg PO DAILY 07/08/23 07/18/23 History tablet baclofen 20 mg tablet 20 mg feeding tube Q6 07/08/23 07/18/23 History collagenase clostridium histo. 250 1 applic topical .EVERY DAY SHIFT 07/08/23 07/18/23 History unit/gram topical ointment (Santyl) collagenase clostridium histo. 250 1 applic topical DIRECTED PRN 07/08/23 07/18/23 History unit/gram topical ointment (Santyl) soilage/dislodgement ferrous sulfate 300 mg (60 mg 325 mg feeding tube Q OTHER DAY 07/08/23 07/18/23 History iron)/5 mL oral liquid lactose-reduced food with fiber 1 ea feeding tube Q4 07/08/23 07/18/23 History 0.06 gram-1.5 kcal/mL oral liquid (Jevity 1.5 Lance) magnesium hydroxide 400 mg/5 mL 2,400 mg feeding tube DAILY PRN 07/08/23 07/18/23 History oral suspension (Milk of Magnesia) Constipation metoprolol tartrate 25 mg tablet 25 mg PEG Q12 07/08/23 07/18/23 History multivitamin 1 tab feeding tube QAM 07/08/23 07/18/23 History sodium phosphates 19 gram-7 118 ml PA .MORNING OF 4TH DAY PRN 07/08/23 07/18/23 History gram/118 mL enema (Fleet Enema) Constipation water 1 ea UD 07/08/23 07/18/23 History zinc sulfate 50 mg zinc (220 mg) 50 mg feeding tube DAILY 07/08/23 07/18/23 History tablet Magic Mix See Rx Instructions .Route .COMPLEX 07/18/23 07/18/23 History Saccharomyces boulardii 250 mg 250 mg feeding tube DAILY 07/18/23 07/18/23 History capsule dantrolene 100 mg capsule 100 mg feeding tube Q6H 07/18/23 07/18/23 History gabapentin 400 mg capsule 400 mg feeding tube Q4H 07/18/23 07/18/23 History Past Med/Surg History Medical History History of DVT (deep vein thrombosis) Moderate protein-calorie malnutrition History of nontraumatic rupture of cerebral aneurysm History of traumatic brain injury Surgical History S/P CANAL TENDER shunt Social History Smoking Status: Never smoker Tobacco Type: Cigarettes Second Hand Exposure: No; Do You Dip or Chew Tobacco: No; Hx Alcohol Use: No Hx Substance Use: No Preferred Language: Turkish Communication Ability: Unable Print Finishing Worker Required: No Beliefs That Will Affect Care: None Current Living Situation: Senior Care Feels Safe at Home: Yes Assistive Devices: Other Physical Exam Physical Exam: Physical Exam: General: In no acute distress, stated age, chronically ill appearing and malnourished but non-toxic appearing HEENT: Normocephalic, atraumatic, no scleral icterus, pupils around round, sy mmetrical, and non-reactive light, moist mucus membranes, trache collar in place and appears to be functioning correctly, no thyromegaly Chest/Pulm: No respiratory distress, symmetrical chest expansion, clear breath sounds throughout Cardiac: RRR, no murmurs noted Abdomen: Negative for ascites and bruising, PEG tube in place and without signs of drainage or infection, normoactive bowel sounds, soft, no guarding or grimacing noted on palpation Musculoskeletal: Chronic spasticity noted Extremities: Radial, dorsalis pedis, and posterior tibial pulses are intact and symmetrical, no edema noted in the BL LE's Skin: Sacral and right calf wounds appear stable compared to discharge exam Neuro: Non-verbal at baseline, chronic spasticity noted, does not follow commands Psych: No acute distress, resting comfortably in bed Code Status & VTE Plan Code Status Full code VTE Prophylaxis Plan VTE Prophylaxis will be ordered: Yes Supervising Physician Co-Signing Physician Notes I personally saw and examined the patient. I verified all coronado points and agree with Michael Urias PA-C with the following exceptions and/or additions: 32 year old male well known to our service following brain aneurysm rupture and subsequent autonomic dysfunction, PEG tube feeding and chronic trach. Presents to the ER as he can no longer be cared for at [facility]. No worsening of sacral ulcer of new concerns raised other than his penitentiary care. Unable to get any information from the patient however Michael Urias PA-C discussed care with his medical decision maker over the phone. O/E Alert, non verbal, HS RRR, no murmurs, Chest with mild rhonchi anteriorly, no eye tracking, Abdo soft, PEG tube without surrounding cellulitis A/P Continue routine medications including ongoing antibiotics. Consult wound care for ongoing sacral wound management. Olegario management to work on ultimate placement as medical decision makers do not want him to return to [facility]. PG Care Time/CCT Total # of Minutes Spent Total Time Spent with Patient: Total time spent is greater than 50% in coordination of care (as documented) at patient's floor/unit and/or counseling patient: [place] [address] INT INP/OBS CARE 75MIN Patient Type Established Medical Decision Making High Complexity Diagnoses Hospital admission due to lack of caregiver Z74.2 Gram-positive bacteremia R78.81 Decubitus ulcer of sacral region, stage 4 L89.154 Transaminitis R74.01 Severe protein-calorie malnutrition E43 History of DVT (deep vein thrombosis) Z86.718 Pneumatosis coli K63.89 History of nontraumatic rupture of cerebral aneurysm Z86.79 Autonomic dysfunction G90.9 Decubitus ulcer of calf, unstageable L89.890 Cardiomyopathy I42.9 Tracheostomy status Z93.0
[2023-07-18] MEDS ORDERED: COLLAGENASE OINT 30 GM TUBE TOP PRN (13:14)
[2023-07-18] MEDS ORDERED: SOD PHOSPHATE/SOD BIPHOSPHATE ENEMA 132 ML BTL PR PRN (13:14)
[2023-07-18] MEDS ORDERED: bisacodyL 10 MG SUPP PR PRN (13:14)
[2023-07-18] MEDS ORDERED: VANCOMYCIN CONSULT ACTIVE PRN (13:22)
[2023-07-18] MEDS ORDERED: VANCOMYCIN HCL 1,000 MG in SODIUM CHLORIDE 0.9% 250 ML IV SCH (13:30)
[2023-07-18] MEDS ORDERED: VANCOMYCIN HCL 1,250 MG in SODIUM CHLORIDE 0.9% 250 ML IV STA (14:18)
[2023-07-18] MEDS: LACTATED RINGER'S 500 ML IV ONE (14:52)
[2023-07-18 14:54] LABS: Basophils # (auto) 0.06 K/uL (0.00-0.20); Basophils % (auto) 0.5 %; Eosinophils # (auto) 0.13 K/uL (0.00-0.50); Eosinophils % (auto) 1.1 %; Hematocrit (blood only) 33.4 % (42.0-52.0); Hemoglobin 10.7 g/dl (14.0-18.0); Immature Granulocytes # (auto) 0.07 K/uL (0.01-0.20); Immature Granulocytes % (auto) 0.6 %; Lymphocytes # (auto) 1.61 K/uL (1.20-3.40); Mean Corpuscular Hemoglobin 30.8 pg (25.0-34.0); Mean Corpuscular Volume 96.3 fL (80.0-100.0); Mean Platelet Volume 10.4 fL (9.4-12.4); Monocytes # (auto) 0.78 K/uL (0.11-0.59); Monocytes % (auto) 6.8 %; Neutrophils # (auto) 8.84 K/uL (1.40-6.50); Platelet Count 489 K/uL (130-400); RDW Coefficient of Variation 13.8 % (11.5-14.5); RDW Standard Deviation 48.8 fL (36.4-46.3); Red Blood Count 3.47 M/uL (4.70-6.10); White Blood Count 11.49 K/ul (4.8-10.8)
[2023-07-18 15:12] LABS: Alanine Aminotransferase 12 U/L (7-52); Albumin Globulin Ratio 1.1 (0.9-2); Albumin Level 4.1 gm/dl (3.4-5.0); Alkaline Phosphatase 71 U/L (34-104); Anion Gap 9 (3-11); Aspartate Aminotransferase 14 U/L (13-39); BUN Creatinine Ratio 48.6 (10-20); Bilirubin,Total 0.6 mg/dl (0.2-1.0); Blood Urea Nitrogen 18 mg/dl (6-23); Calcium 9.6 mg/dl (8.6-10.3); Carbon Dioxide 29 mmol/L (21-32); Chloride 100 mmol/L (98-107); Creatinine Clr Calc Pharmacy 221.4 ml/min; Est GFR (African American) > 150.0 ml/min; Est GFR (Non-African American) > 150.0 ml/min; Globulin 3.6 gm/dl (2.5-4.0); Glucose 84 mg/dl (70-99(Fasting)); Sodium 138 mmol/L (136-145); Total Protein 7.7 gm/dl (6.0-8.3)
--- NOTE | 2023-07-18 15:25 | Pharmacy Report ---
Pharmacy PK ABX Note - Date of Service July 18, 2023 - Assessment and Plan Assessment 32 year old M receiving vancomycin/zosyn. Patient previously discharged yesterday evening, however readmitted due to lack of caregiver per notes. Pt previously being treated with vancomycin/zosyn last admission for bacteremia/sputum cultures. ID had recommended 7-10 days of treatment. Last dose of both antibiotics 07/19 per provider notes. Suspected source of infection related to sacral ulcers. Will reassess plan tomorrow as new blood cultures ordered and pending. PMHx significant for chronic trach, PEG tube, nonverbal status, paraplegia. Plan Vancomycin * Patient was in ER this morning and received vancomycin 1000 mg dose. Random level had been ordered by ER this morning and was 9 mcg/ml - patient likely missed 2200 dose yesterday since getting discharged. Did receive 1400 dose yesterday. * Level ordered this afternoon was ~17 mcg/ml - reasonable to resume previous vancomycin dosing of 1 gm iv q 8 hrs as patient was stable on this dosing during last admission Pharmacy will continue to follow and will adjust dose/frequency as necessary. Thank you. Pharmacy has transitioned to AUC monitoring for vancomycin. AUC/BASHIR is the preferred PK/PD target and is associated with decreased risk of nephrotoxicity compared to traditional trough targets.
[2023-07-18] MEDS: PIPERACILLIN/TAZOBACTAM 4.5 GM in DEXTROSE 5% MINI-B 100 ML IV SCH (15:45)
[2023-07-18] MEDS: FERROUS SULFATE 325 MG/7.4 ML UDP PEG SCH (16:15)
[2023-07-18] MEDS: COLLAGENASE OINT 30 GM TUBE TOP SCH (16:16)
[2023-07-18] MEDS: SCOPOLAMINE 1 MG/72 HR TDSY PATCH TD SCH (16:17)
[2023-07-18] MEDS: BACLOFEN 20 MG TAB PEG SCH (16:17)
[2023-07-18] MEDS: CHECK SCOPOLAMINE PATCH PLACEMENT SCH (16:50)
[2023-07-18] MEDS ORDERED: PEPTAMEN 1.5 CAL 1,000 ML BAG GT SCH (17:00)
[2023-07-18] MEDS: VANCOMYCIN HCL 1,000 MG in SODIUM CHLORIDE 0.9% 250 ML IV SCH (17:16)
[2023-07-18] MEDS: PEPTAMEN 1.5 CAL 1,000 ML BAG GT SCH (18:57)
[2023-07-18] MEDS: BROMOCRIPTINE MESYLATE 2.5 MG TAB PO SCH (18:58)
[2023-07-18] MEDS: GABAPENTIN 250 MG/5 ML 470 ML BTL GT SCH (18:58)
[2023-07-18] MEDS: DANTROLENE SODIUM 25 MG CAP PEG SCH (18:58)
[2023-07-18] MEDS: TUBE FEEDING WATER FLUSH GT SCH ×3 (18:58)
[2023-07-18] MEDS: POLYETHYLENE (MIRALAX) 17 GM PACK PEG SCH (20:30)
[2023-07-18] MEDS: MELATONIN 3 MG TAB PO SCH (21:03)
[2023-07-18] MEDS: METOPROLOL TARTRATE 25 MG TAB PEG SCH (21:04)
[2023-07-18] MEDS: APIXABAN 5 MG TABLET PO SCH (21:04)
[2023-07-19 04:22] LABS: Appearance Urine Clear (Clear); Bilirubin Urine Negative (Negative); Blood Urine Negative (Negative); Color Urine Yellow; Glucose Urine UA Negative (Negative); Ketones Urine Negative (Negative); Leukocyte Esterase Urine Negative (Negative); Nitrite Urine Negative (Negative); Protein Urine Negative (Negative); Urobilinogen Urine Negative (Negative)
[2023-07-19 04:34] LABS: Basophils # (auto) 0.04 K/uL (0.00-0.20); Basophils % (auto) 0.4 %; Eosinophils # (auto) 0.15 K/uL (0.00-0.50); Eosinophils % (auto) 1.5 %; Hematocrit (blood only) 31.1 % (42.0-52.0); Hemoglobin 9.8 g/dl (14.0-18.0); Immature Granulocytes # (auto) 0.04 K/uL (0.01-0.20); Immature Granulocytes % (auto) 0.4 %; Lymphocytes # (auto) 1.56 K/uL (1.20-3.40); Mean Corpuscular Hemoglobin 30.3 pg (25.0-34.0); Mean Corpuscular Hgb Conc 31.5 g/dL (32.0-36.0); Mean Corpuscular Volume 96.3 fL (80.0-100.0); Mean Platelet Volume 10.2 fL (9.4-12.4); Monocytes # (auto) 0.85 K/uL (0.11-0.59); Monocytes % (auto) 8.7 %; Neutrophils # (auto) 7.08 K/uL (1.40-6.50); Platelet Count 514 K/uL (130-400); RDW Coefficient of Variation 13.8 % (11.5-14.5); RDW Standard Deviation 48.6 fL (36.4-46.3); Red Blood Count 3.23 M/uL (4.70-6.10); White Blood Count 9.72 K/ul (4.8-10.8)
[2023-07-19 04:50] LABS: Alanine Aminotransferase 11 U/L (7-52); Albumin Globulin Ratio 1.2 (0.9-2); Albumin Level 3.7 gm/dl (3.4-5.0); Alkaline Phosphatase 66 U/L (34-104); Anion Gap 7 (3-11); Aspartate Aminotransferase 11 U/L (13-39); BUN Creatinine Ratio 37.8 (10-20); Bilirubin,Total 0.4 mg/dl (0.2-1.0); Blood Urea Nitrogen 14 mg/dl (6-23); Calcium 8.9 mg/dl (8.6-10.3); Carbon Dioxide 30 mmol/L (21-32); Chloride 103 mmol/L (98-107); Creatinine Clr Calc Pharmacy 221.4 ml/min; Est GFR (African American) > 150.0 ml/min; Est GFR (Non-African American) > 150.0 ml/min; Globulin 3.2 gm/dl (2.5-4.0); Glucose 114 mg/dl (70-99(Fasting)); Magnesium 1.7 mg/dl (1.7-2.4); Potassium 3.5 mmol/L (3.5-5.1); Sodium 140 mmol/L (136-145); Total Protein 6.9 gm/dl (6.0-8.3)
[2023-07-19 04:58] LABS: INR 1.1 (0.9-1.1); Prothrombin Time 11.5 Seconds (9.0-12.0)
[2023-07-19] MEDS: PROSOURCE NO CARB 30 ML/PKT GT SCH (08:11)
[2023-07-19] MEDS: MULTIVITAMIN TAB PO SCH (08:11)
[2023-07-19] MEDS: ASCORBIC ACID 500 MG TAB PEG SCH (08:12)
[2023-07-19] MEDS: ZINC SULFATE 220 MG CAPSULE PO SCH (08:13)
[2023-07-19 11:34] LABS: A calco-baum cmplx NotReported Not Detected (NotDetected); Bact fragilis Not Reported Not Detected (NotDetected); Blood Culture Id Panel See PCR Comment (NotDetected); C auris Not Reported Not Detected (NotDetected); Calbicans Not Reported Not Detected (NotDetected); Candida glabrata Not Reported Not Detected (NotDetected); Candida krusei Not Reported Not Detected (NotDetected); Cneoformans/gatti Not Reported Not Detected (NotDetected); Cparapsilosis Not Reported Not Detected (NotDetected); E cloacae compx Not Reported Not Detected (NotDetected); Efaecalis Not Reported Not Detected (NotDetected); Efaecium Not Reported Not Detected (NotDetected); Enterobacterales Not Reported Not Detected (NotDetected); Escherichia coli Not Reported Not Detected (NotDetected); H influenzae Not Reported Not Detected (NotDetected); K aerogenes Not Reported Not Detected (NotDetected); Koxytoca Not Reported Not Detected (NotDetected); Kpneumoniae grp Not Reported Not Detected (NotDetected); Lmonocyt Not Reported Not Detected (NotDetected); N meningitidis Not Reported Not Detected (NotDetected); P aeruginosa Not Reported Not Detected (NotDetected); Proteus spp Not Reported Not Detected (NotDetected); Salmonella spp Not Reported Not Detected (NotDetected); Smarcescens Not Reported Not Detected (NotDetected); Staph lugdunensis Not Reported Not Detected (NotDetected); Staph spp. Not Reported DETECTED (NotDetected); Staphaureus Not Reported Not Detected (NotDetected); Staphepi Not Reported Not Detected (NotDetected); Stenmaltophilia Not Reported Not Detected (NotDetected); Strep agal(GrpB) Not Reported Not Detected (NotDetected); Strep pneum Not Reported Not Detected (NotDetected); Strep pyog (GrpA) Not Reported Not Detected (NotDetected); Strep spp Not Reported Not Detected (NotDetected)
[2023-07-19 11:42] LABS: Staphylococcus spp. DETECTED (NotDetected)
--- NOTE | 2023-07-19 18:25 | Hospitalist Progress Note ---
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 skull fragment was reimplanted in November per family. Had a ASH WORKER shunt S1 at [facility]. Is now functionally quadriplegic. Has history of severe autonomic dysfunction / paroxysmal sympathetic hyperactivity / autonomic storm which is controlled on medications and has the potential to be confused with sepsis. -Currently hemodynamically stable, stable on baseline 6L via trach collar, and non-toxic appearing -Was brought back to the ED via EMS after [facility] refused to take the patient back due to lack of bed availability >Mother is working with Case Management to figure out new disposition on discharge -He is otherwise at his current baseline since being discharged from [facility] on 07/17/23 -Continue NPO status, continue tube feeding - continue routine tracheostomy care -Continue BID Eliquis pe PEG for DVT PPX -CBC, CMP, mag, lactate, and procal on admission - reviewed and unremarkable (2) Gram-positive bacteremia: Plan: Being treated with pip-tazo and vancomycin through 07/19 to complete 10 day course for infections. Reviewed last ID note 07/15/23 Recent infectious issues: SSTI sacral decubitus ulcer, CT without e/o osteomyelitis, pseudomonas on culture, treated with pip-tazo as above Group C strep bacteremia source thought wound/SSTI, abx as above CONS bacteremia - contaminant vs bacteremia, completing 10d vancomycin as above (grew from 07/08, 07/09 blood cultures) Corynebacterium bacteremia - "" Sputum colonized with pseudomonas, possible tracheitis with increased secretions 07/10, treated with pip-tazo Called today that blood culture from ED from 07/18 is positive for staph species. I am unsure why repeat blood cultures were drawn 07/17 blood cultures NGTD -extend vancomycin until these cultures finalize, discuss with ID Friday, if appears contaminant may do repeat blood cx when OFF antibiotics (3) Decubitus ulcer of sacral region, stage 4: Plan: -Surgery was consulted last admission, did not recommend debridement -wound care nurse consulted for continued management -plans on outpt wound care follow up (4) Transaminitis: Plan: -Reported during last admission, will follow repeat CMP ordered on admission today -No liver abnormality on CT during last admission -Acetaminophen level last admission was WNL -Dantrolene is hepatotoxic however requires this for chronic spasticity and malignant hyperthermia - will continue for now although may need to be reconsidered if AST/ALT continue to rise without alternative explanation (5) Severe protein-calorie malnutrition: Plan: BMI 18, diffuse sarcopenia / muscle wasting present -dependent on tube feeding -Consult dietary, peptamin 1.5 250 ml q6 hours (6) History of DVT (deep vein thrombosis): Plan: Continue Eliquis (7) Pneumatosis coli: Plan: -Evaluated by General surgery last admission, no initial plans on invasive Management -Continue home bowel regimen -Monitor for constipation (8) History of nontraumatic rupture of cerebral aneurysm: Plan: -Patient is nonverbal at baseline with chronic contractures in all 4 extremities -CT head shows encephalomalacia and good shunt placement (9) Autonomic dysfunction: Plan: -Continue dantrolene and bromocriptine -Continue gabapentin and baclofen for spasticity (10) Decubitus ulcer of calf, unstageable: Plan: -Eschar present with no surrounding cellulitis. -pt tends to rest with legs crossed -Continue wound care nurse consult (11) Cardiomyopathy: Plan: -Euvolemic on exam (12) Tracheostomy status: Plan: -Q-shift trach care ordered -colonized with pseudomonas Plan Admission and Anticipated Discharge Date Admission Date: July 18, 2023 Subjective nonverbal. appears to be sleeping at this time. Physical Exam 2 Physical Exam: PHYSICAL EXAMINATION Last 24h vital signs reviewed, see documentation in flowsheet General: chronically ill-appearing young man,comfortable appearing, no distress HEENT: eyes are closed currently, trach in anterior neck is clean dry and intact, no evidence of excessive secretions Lungs: Normal respiratory effort. Clear to auscultation bilaterally. No RRW Heart: Regular rate and rhythm, no murmurs. No JVD Abdomen: Soft, nontender, nondistended. Bowel sounds present. G-tube site and mid abdomen is clean dry and intact no erythema no drainage Extremities: Warm, dry, well-perfused. No extremity edema. diffuse sarcopenia present he has flexion contractures of both wrists, right elbow, bilateral lower extremities mildly flexed, high tone throughout Neuro: appears to be sleeping currently, poorly responsive at baseline: opens eyes and tracks visually but is nonverbal, sometimes will move R arm or lift head, does not follow commands, bedbound Psych: unable to assess, no agitation Results & Data Results & Data Vital Signs (Past 12 Hours) Vital Signs Pulse Pulse Pulse Resp BP BP Pulse Ox 07/19/23 15:30 88 07/19/23 14:05 07/19/23 14:05 91 H 18 100/62 94 07/19/23 12:05 07/19/23 11:55 80 16 105/71 100 07/19/23 11:55 07/19/23 07:42 96 H 20 109/69 98 07/19/23 07:16 92 H Pulse Ox O2 Del Method O2 Del Method O2 Flow Rate 07/19/23 15:30 07/19/23 14:05 Trach Collar 6 07/19/23 14:05 Trach Collar 6 07/19/23 12:05 Trach Collar 07/19/23 11:55 Trach Collar 07/19/23 11:55 100 Trach Collar 07/19/23 07:42 Trach Collar 8 07/19/23 07:16 Laboratory Results 07/19/23 04:07 07/19/23 04:07 PG Care Time/CCT Total # of Minutes Spent Total Time Spent with Patient: Total time spent is greater than 50% in coordination of care (as documented) at patient's floor/unit and/or counseling patient: Coding Level of Care Code 45785 SUB INP/OBS CARE 2/35MIN Diagnoses Hospital admission due to lack of caregiver Z74.2 Gram-positive bacteremia R78.81 Decubitus ulcer of sacral region, stage 4 L89.154 Transaminitis R74.01 Severe protein-calorie malnutrition E43 History of DVT (deep vein thrombosis) Z86.718 Pneumatosis coli K63.89 History of nontraumatic rupture of cerebral aneurysm Z86.79 Autonomic dysfunction G90.9 Decubitus ulcer of calf, unstageable L89.890 Cardiomyopathy I42.9 Tracheostomy status Z93.0
[2023-07-20 10:15] LABS: Est GFR (African American) > 150.0 ml/min; Est GFR (Non-African American) > 150.0 ml/min
--- NOTE | 2023-07-20 15:12 | Hospitalist Progress Note ---
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 skull fragment was reimplanted in November per family. 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 Is now functionally quadriplegic. Has history of severe autonomic dysfunction / paroxysmal sympathetic hyperactivity / autonomic storm which is controlled on medications and has the potential to be confused with sepsis. -Currently hemodynamically stable, stable on baseline 6L via trach collar, and non-toxic appearing -Was brought back to the ED via EMS after [facility] refused to take the patient back due to lack of bed availability >Mother is working with Case Management to figure out new disposition on discharge -He is otherwise at his current baseline since being discharged from [facility] on 07/17/23 -Continue NPO status, continue tube feeding via getube -continue routine tracheostomy care -Continue BID Eliquis pe PEG for DVT PPX -CBC, CMP, mag, lactate, and procal on admission - reviewed and unremarkable (2) Gram-positive bacteremia: Plan: Being treated with pip-tazo and vancomycin through 07/19 to complete 10 day course for infections. Reviewed last ID note 07/15/23 Recent infectious issues: SSTI sacral decubitus ulcer, CT without e/o osteomyelitis, pseudomonas on culture, treated with pip-tazo as above Group C strep bacteremia source thought wound/SSTI, abx as above CONS bacteremia - contaminant vs bacteremia, completing 10d vancomycin as above (grew from 07/08, 07/09 blood cultures) Corynebacterium bacteremia - "" Sputum colonized with pseudomonas, possible tracheitis with increased secretions 07/10, treated with pip-tazo one bottle of 4 blood culture from ED from 07/18 is positive for CONS. I am unsure why repeat blood cultures were drawn 07/17 blood cultures still NGTD -extend vancomycin until these cultures finalize, discuss with ID Friday, if appears contaminant may do repeat blood cx when OFF antibiotics (3) Decubitus ulcer of sacral region, stage 4: Plan: -Surgery was consulted last admission, did not recommend debridement -wound care nurse consulted for continued management -plans on outpt wound care follow up - has appt 07/21 needs reschedule (4) Transaminitis: Plan: -Reported during last admission, resolved LFT normal this admission -No liver abnormality on CT during last admission -resume usual acetaminophen at reduced dose - 2g / 24h (5) Severe protein-calorie malnutrition: Plan: BMI 18, diffuse sarcopenia / muscle wasting present -dependent on tube feeding. weight stable last few months -Consult dietary, peptamin 1.5 250 ml q6 hours (6) History of DVT (deep vein thrombosis): Plan: Continue Eliquis (7) Pneumatosis coli: Plan: -Evaluated by General surgery last admission, no initial plans on invasive Management -diarrhea today, miralax held -Monitor for constipation (8) History of nontraumatic rupture of cerebral aneurysm: Plan: -Patient is nonverbal at baseline with chronic contractures in all 4 extremities -CT head shows encephalomalacia and good shunt placement (9) Autonomic dysfunction: Plan: -Continue dantrolene and bromocriptine -Continue gabapentin and baclofen for spasticity - adjusted frequency of baclofen to usual q6h (10) Decubitus ulcer of calf, unstageable: Plan: -Eschar present with no surrounding cellulitis. -pt tends to rest with legs crossed -Continue wound care nurse consult (11) Cardiomyopathy: Plan: -Euvolemic on exam -last TTE 07/11/23 low normal EF 50-55% (12) Tracheostomy status: Plan: -Q-shift trach care ordered -colonized with pseudomonas Plan diarrhea - was on bid miralax - held for now, assess response Wound care recs To sacrum/ coccyx/buttocks area- Irrigate with NSS, a 35cc syringe and a blunt needle. Apply Aquacel Ag and secure with Optifoam. Change daily, or if soiled or drainage excedes 50% of dressing. Do not allow wet dressings to remain in place . Left ear: change every 3 days or if drainage is greater than 50 %. Expect drainage. to right and left lateral lower legsApply Optifoams and waffleboots. Turn and reposition pt. at least every 2 hours. Suggest low-air - loss or alternating pressure mattress [facility] FridayJuly 21 at 8:00am Wound center contact # Admission and Anticipated Discharge Date Admission Date: July 18, 2023 Physical Exam Physical Exam: PHYSICAL EXAMINATION Last 24h vital signs reviewed, see documentation in flowsheet General: chronically ill-appearing young man,comfortable appearing, no distress HEENT: eyes are closed currently, trach in anterior neck is clean dry and int act, no evidence of excessive secretions Lungs: Normal respiratory effort. Clear to auscultation bilaterally. No RRW Heart: Regular rate and rhythm, no murmurs. No JVD Abdomen: Soft, nontender, nondistended. Bowel sounds present. G-tube site and mid abdomen is clean dry and intact no erythema no drainage Extremities: Warm, dry, well-perfused. No extremity edema. diffuse sarcopenia present he has flexion contractures of both wrists, right elbow, bilateral lower extremities mildly flexed, high tone throughout Neuro: appears to be sleeping currently, poorly responsive at baseline: opens e yes and tracks visually but is nonverbal, sometimes will move R arm or lift head, does not follow commands, bedbound Psych: unable to assess, no agitation Results & Data Results & Data Vital Signs (Past 12 Hours) Vital Signs Temp Pulse Pulse Resp BP Pulse Ox O2 Del Method 07/20/23 11:53 37.6 C H 85 17 111/74 96 Trach Collar 07/20/23 09:05 80 07/20/23 08:21 37.6 C H 79 17 111/74 99 Trach Collar 07/20/23 04:00 37.1 C 73 18 101/60 98 Trach Collar O2 Flow Rate 07/20/23 11:53 6 07/20/23 09:05 07/20/23 08:21 6 07/20/23 04:00 6 PG Care Time/CCT Total # of Minutes Spent Total Time Spent with Patient: Total time spent is greater than 50% in coordination of care (as documented) at patient's floor/unit and/or counseling patient: Coding Level of Care Code 31166 SUB INP/OBS CARE 2/35MIN Diagnoses Hospital admission due to lack of caregiver Z74.2 Gram-positive bacteremia R78.81 Decubitus ulcer of sacral region, stage 4 L89.154 Transaminitis R74.01 Severe protein-calorie malnutrition E43 History of DVT (deep vein thrombosis) Z86.718 Pneumatosis coli K63.89 History of nontraumatic rupture of cerebral aneurysm Z86.79 Autonomic dysfunction G90.9 Decubitus ulcer of calf, unstageable L89.890 Cardiomyopathy I42.9 Tracheostomy status Z93.0
[2023-07-20] MEDS: BACLOFEN 20 MG TAB PEG SCH (16:05)
[2023-07-20] MEDS: ACETAMINOPHEN SUSP 325 MG/10.15 ML UDC PEG SCH (16:57)
[2023-07-21 08:36] LABS: Creatinine Clr Calc Pharmacy 188.4 ml/min; Est GFR (African American) > 150.0 ml/min; Est GFR (Non-African American) > 150.0 ml/min
--- NOTE | 2023-07-21 09:24 | Pharmacy Report ---
Pharmacy PK ABX Note - Date of Service July 21, 2023 - Assessment and Plan Assessment 07/18: 32 year old M receiving vancomycin/zosyn. Patient previously discharged yesterday evening, however readmitted due to lack of caregiver per notes. Pt previously being treated with vancomycin/zosyn last admission for bacteremia/sputum cultures. ID had recommended 7-10 days of treatment. Last dose of both antibiotics 07/19 per provider notes. Suspected source of infection r elated to sacral ulcers. Will reassess plan tomorrow as new blood cultures ordered and pending. PMHx significant for chronic trach, PEG tube, nonverbal status, paraplegia. 07/21: Vanc level was 19.5 mcg/mL this AM (drawn appropriately) which is predicted to be supratherapeutic (AUC/BASHIR of 638 mg/L.hr). Patient has had intermittent low grade fevers over the last 48 hours (Tmax 37.8oC). Blood cultures from 07/18 are growing Coag negative staph (not lugdunensis) in 1/ bottles. Uncertain if this represents contamination vs recurrent bacteremia. Of note, prior to previous discharge, repeat blood cultures on 07/17 were negative. Provider to reach out to infectious disease today to get their opinion. Will await further instruction. At this time, will reduce vancomycin dose to prevent ROSEANN. Plan Vancomycin * Current regimen: 1000 mg IV every 8 hours * Trough level obtained 07/21/23 resulted as 19.5 mcg/mL. This is supratherapeutic. * Change to 750 mg IV every 8 hours starting at 1000 today. Predicted AUC at steady state: 481i mg/L.hr * Repeat trough level ordered for: 07/22/23 Pharmacy will continue to follow and will adjust dose/frequency as necessary. Thank you. Pharmacy has transitioned to AUC monitoring for vancomycin. AUC/BASHIR is the preferred PK/PD target and is associated with decreased risk of nephrotoxicity compared to traditional trough targets.
[2023-07-21] MEDS: VANCOMYCIN LEVEL ONE (09:33)
[2023-07-21] MEDS: VANCOMYCIN HCL 750 MG in SODIUM CHLORIDE 0.9% 250 ML IV SCH (09:38)
--- NOTE | 2023-07-21 16:13 | Hospitalist Progress Note ---
Date of Service July 21, 2023 Assessment & Plan (1) Hospital admission due to lack of caregiver: Plan: Ry suffered a ruptured brain aneurysm and SAH 08/2022 Had craniotomy and evacuation. skull fragment was reimplanted in November per family. 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 Is now functionally quadriplegic. Has history of severe autonomic dysfunction / paroxysmal sympathetic hyperactivity / autonomic storm which is controlled on medications and has the potential to be confused with sepsis. -Currently hemodynamically stable, stable on baseline 6L via trach collar, and non-toxic appearing -Was brought back to the ED via EMS after [facility] refused to take the patient back due to lack of bed availability >Mother is working with Case Management to figure out new disposition on discharge -He is otherwise at his current baseline since being discharged from [facility] on 07/17/23 -Continue NPO status, continue tube feeding via getube -continue routine tracheostomy care -Continue BID Eliquis pe PEG for DVT PPX -CBC, CMP, mag, lactate, and procal on admission - reviewed and unremarkable (2) Gram-positive bacteremia: Plan: Treated with pip-tazo through 07/19 to complete 10 day course for infections. Reviewed last ID note 07/15/23 Vancomycin 10d course was scheduled to end 07/19 but extended pending blood culture as below Recent infectious issues: SSTI sacral decubitus ulcer, CT without e/o osteomyelitis, pseudomonas on culture, treated with pip-tazo as above Group C strep bacteremia source thought wound/SSTI, abx as above CONS bacteremia - contaminant vs bacteremia, completing 10d vancomycin as above (grew from 07/08, 07/09 blood cultures) Corynebacterium bacteremia - "" Sputum colonized with pseudomonas, possible tracheitis with increased secretions 07/10, treated with pip-tazo one bottle of 4 blood culture from ED from 07/18 is positive for CONS. other bottles remain negative to date 07/17 blood cultures still NGTD -extend vancomycin until these cultures finalize, discuss with ID, if appears contaminant may do repeat blood cx when OFF antibiotics (3) Decubitus ulcer of sacral region, stage 4: Plan: -Surgery was consulted last admission, did not recommend debridement -wound care nurse consulted for continued management -continue wound care pressure offloading (4) Transaminitis: Plan: -Reported during last admission, resolved LFT normal this admission -No liver abnormality on CT during last admission -resume usual acetaminophen at reduced dose - 2g / 24h (5) Severe protein-calorie malnutrition: Plan: BMI 18, diffuse sarcopenia / muscle wasting present -dependent on tube feeding. weight stable last few months -continue tube feeding (6) History of DVT (deep vein thrombosis): Plan: Continue Eliquis (7) Pneumatosis coli: Plan: -Evaluated by General surgery last admission, no initial plans on invasive Management -diarrhea 07/20, miralax held. Loose but not high quantity 07/21 -Monitor for constipation (8) History of nontraumatic rupture of cerebral aneurysm: Plan: -Patient is nonverbal at baseline with chronic contractures in all 4 extremities -CT head shows encephalomalacia and good shunt placement (9) Autonomic dysfunction: Plan: -Continue dantrolene and bromocriptine -Continue gabapentin and baclofen for spasticity - adjusted frequency of baclofen to usual q6h (10) Decubitus ulcer of calf, unstageable: Plan: -Eschar present with no surrounding cellulitis. -pt tends to rest with legs crossed -Continue wound care nurse consult (11) Cardiomyopathy: Plan: -Euvolemic on exam -last TTE 07/11/23 low normal EF 50-55% (12) Tracheostomy status: Plan: -Q-shift trach care ordered -colonized with pseudomonas Plan diarrhea - was on bid miralax - held for now, assess response Wound care recs To sacrum/ coccyx/buttocks area- Irrigate with NSS, a 35cc syringe and a blunt needle. Apply Aquacel Ag and secure with Optifoam. Change daily, or if soiled or drainage excedes 50% of dressing. Do not allow wet dressings to remain in place . Left ear: change every 3 days or if drainage is greater than 50 %. Expect drainage. to right and left lateral lower legsApply Optifoams and waffleboots. Turn and reposition pt. at least every 2 hours. Suggest low-air - loss or alternating pressure mattress [facility] FridayJuly 21 at 8:00am Wound center contact # Admission and Anticipated Discharge Date Admission Date: July 18, 2023 Subjective Ry is awake with eyes open, working with RNs and aides just had a bath and changed beds. Stool loose but not excessive output today. Nonverbal. No events. Physical Exam 2 Physical Exam: PHYSICAL EXAMINATION Last 24h vital signs reviewed, see documentation in flowsheet General: chronically ill-appearing young man,comfortable appearing, no distress HEENT: eyes are open anticteric, trach in anterior neck is clean dry and intact, no evidence of excessive secretions Lungs: Normal respiratory effort. Clear to auscultation bilaterally. No RRW Heart: Regular rate and rhythm, no murmurs. No JVD Abdomen: Soft, nontender, nondistended. Bowel sounds present. G-tube site and mid abdomen is clean dry and intact no erythema no drainage Rectal bag small amt loose brown stool Extremities: Warm, dry, well-perfused. No extremity edema. diffuse sarcopenia present he has flexion contractures of both wrists, right elbow, bilateral lower extremities mildly flexed, high tone throughout Neuro: awake, eyes open but did not track me to voice, baseline exam: opens eyes and tracks visually but is nonverbal, sometimes will move R arm or lift head, does not follow commands, bedbound Psych: unable to assess, no agitation Results & Data Results & Data Vital Signs (Past 12 Hours) Vital Signs Temp Pulse Pulse Resp BP Pulse Ox Pulse Ox 07/21/23 15:46 36.5 C 74 17 119/79 95 07/21/23 15:37 102 H 07/21/23 13:57 07/21/23 11:36 36.4 C L 83 17 109/72 96 07/21/23 11:00 96 07/21/23 07:57 36.3 C L 74 17 100/64 99 07/21/23 07:22 71 07/21/23 04:09 36.7 C 80 18 119/73 100 O2 Del Method O2 Del Method O2 Flow Rate O2 Flow Rate 07/21/23 15:46 Trach Collar 6 07/21/23 15:37 07/21/23 13:57 Trach Collar 6 07/21/23 11:36 Trach Collar 6 07/21/23 11:00 Trach Collar 6 07/21/23 07:57 Trach Collar 6 07/21/23 07:22 07/21/23 04:09 Trach Collar Laboratory Results 07/19/23 04:07 07/21/23 07:59 PG Care Time/CCT Total # of Minutes Spent Total Time Spent with Patient: Total time spent is greater than 50% in coordination of care (as documented) at patient's floor/unit and/or counseling patient: Coding Level of Care Code 69679 SUB INP/OBS CARE 2/35MIN Diagnoses Hospital admission due to lack of caregiver Z74.2 Gram-positive bacteremia R78.81 Decubitus ulcer of sacral region, stage 4 L89.154 Transaminitis R74.01 Severe protein-calorie malnutrition E43 History of DVT (deep vein thrombosis) Z86.718 Pneumatosis coli K63.89 History of nontraumatic rupture of cerebral aneurysm Z86.79 Autonomic dysfunction G90.9 Decubitus ulcer of calf, unstageable L89.890 Cardiomyopathy I42.9 Tracheostomy status Z93.0
[2023-07-22 09:58] LABS: Creatinine Clr Calc Pharmacy 190.2 ml/min; Est GFR (African American) > 150.0 ml/min; Est GFR (Non-African American) > 150.0 ml/min
[2023-07-22] MEDS: VANCOMYCIN LEVEL ONE (10:59)
--- NOTE | 2023-07-22 11:16 | Pharmacy Report ---
Pharmacy PK ABX Note - Date of Service July 22, 2023 - Assessment and Plan Assessment 07/18: 32 year old M receiving vancomycin/zosyn. Patient previously discharged yesterday evening, however readmitted due to lack of caregiver per notes. Pt previously being treated with vancomycin/zosyn last admission for bacteremia/sputum cultures. ID had recommended 7-10 days of treatment. Last dose of both antibiotics 07/19 per provider notes. Suspected source of infection r elated to sacral ulcers. Will reassess plan tomorrow as new blood cultures ordered and pending. PMHx significant for chronic trach, PEG tube, nonverbal status, paraplegia. 07/21: Vanc level was 19.5 mcg/mL this AM (drawn appropriately) which is predicted to be supratherapeutic (AUC/BASHIR of 638 mg/L.hr). Patient has had intermittent low grade fevers over the last 48 hours (Tmax 37.8oC). Blood cultures from 07/18 are growing Coag negative staph (not lugdunensis) in 1/ bottles. Uncertain if this represents contamination vs recurrent bacteremia. Of note, prior to previous discharge, repeat blood cultures on 07/17 were negative. Provider to reach out to infectious disease today to get their opinion. Will await further instruction. At this time, will reduce vancomycin dose to prevent ROSEANN. 07/22: Vancomycin level 20.2 mcg/mL today (drawn appropriately) this is predicted to achieve and AUC/BASHIR within goal range. Patient is a reported intermediate fit in [facility], so will repeat level again tomorrow for more clarity. Continue vancomycin at least until blood cultures finalize per notes. Plan Vancomycin * Current regimen: vancomycin 750 mg IV every 8 hours * Continue vancomycin 750 mg IV every 8 hours. Predicted AUC at steady state: 508 mg/L.hr with 88% certainty of reaching goal AUC/BASHIR per [facility] * Repeat trough level ordered for: 07/23/23 @0930 Pharmacy will continue to follow and will adjust dose/frequency as necessary. Thank you. Pharmacy has transitioned to AUC monitoring for vancomycin. AUC/BASHIR is the preferred PK/PD target and is associated with decreased risk of nephrotoxicity compared to traditional trough targets.
--- NOTE | 2023-07-22 12:17 | Infectious Disease Consult ---
Date of Consultation July 22, 2023 Assessment & Plan (1) SOB (shortness of breath): (2) Hospital admission due to lack of caregiver: Plan -I suspect the CoNS is contaminant -Would dc Vancomycin and monitor off Patient HD stable, normal labs, and CXR is negative for pneumonia No active infection at this time Please call ID with any questions Vidhya Arreola MD Infectious Diseases Consultation Information This patient recommendation is based on a telemedicine consult request which was completed asynchronously through chart review and information provided by the primary physician. The patient was not seen or examined today. The evaluation is consultative in nature and all patient care and treatment decisions can either be accepted or rejected by the patient's primary hospital-based treating physician using their own independent medical judgment for their patient. [employer] contact information: Please call [facility] Call Center . (Phone Number For Physician Use Only) Time Spent Reviewing Chart: 31+ minutes History of Present Illness Reason for Consultation: CoNS in blood Requesting Physician: Dr. Metcalf Attending Physician: Ayesha Metcalf MD History of Present Illness 32 yo M with history of ruptured cerebral aneurysm s/p craniotomy/hematoma evacuation during hospitalization from Aug - Feb 2023, [employer] shunt, s/p trach and PEG, nonverbal, autonomic dysfunction who presented to [facility] on 07/08/23 due to fevers and worsening sacral ulcer with surrounding cellulitis, found to 07/08 BCx + have Group C Strep and CoNS (2 morphologies), and 07/09 BCx + for CoNS (2 morphologies) and Corynebacterium. The sacral ulcer was present during his admissions in March, however it has been getting progressively worse. Of note, patient had recently completed a course of cefepime x 10 days on 06/28/2023 for a respiratory infection (had 06/15 and 07/06 sputum cultures sent from his rehab which both grew Pseudomonas and Group C Strep, with the Pseudomonas developing resistance). Repeat BCx from 07/10 remain NGTD. Sacral wound cx from 07/11 with probable Pseudomonas, and sputum cx from 07/11 with PsA. Febrile on 07/10 with increased trach secretions, now afebrile and with improved secretions. Sacral wound continues to have yellowish exudate. On presentation 07/08, patient was febrile (TMax of 39.7) with CXR clear; CT A/P showed pneumatosis coli of cecum of unknown significance, sacral decubitus ulcer with associated subcutaneous edema and without drainable fluid collection or adjacent osseous erosion. Surgery did not feel that debridement was needed. The source of his fevers and polymicrobial bacteremia appears most likely from sacral wound SSTI, though considered respiratory source as well given fever and increased trach secretions on 07/10. Admission BCx from 07/08 are growing group C strep in 2/4 bottles and CoNS (2 morphologies), and repeat 07/09 BCx with both CoNS (2 morphologies) and Corynebacterium. The Group C Strep bacteremia is likely from SSTI, though also considered respiratory source (given that recent respiratory cx have grown Group C Strep). BCx from both 07/08 and 07/09 with multiple morphologies of CoNS; this is also likely from his sacral wound SSTI though also considered possibilities of contamination and deep-seated endovascular infection/IE. Corynebacterium may similarly represent contamination vs. SSTI. His BCx from 07/10 remain NGTD. TTE from 07/11 without visualized vegetations. It seems the only hardware/prosthetic device he has is a [employer] shunt. Lower suspicion for deep-seated endovascular infection at this time given the polymicrobial bacteremia with multiple morphologies of CoNS and will follow 07/10 BCx until finalized to ensure they remain negative. He was originally started on vancomycin and Zosyn. It was initially felt that the Pseudomonas in the 07/06 respiratory culture may represent colonization, given that his respiratory status was at baseline, and CXR without opacities. Th erefore, antibiotics were switched vanc and ceftriaxone. The pt then febrile on 07/10, with RN report of copious secretions from the trach, raising concern for a pneumonia/tracheobronchitis, however note that his fevers are difficult to interpret in the setting of his autonomic dysfunction. At that time, his abx were broadened to vancomycin and meropenem. Repeat sacral wound cx on 07/11 (after abx) with probable Pseudomonas, and sputum cx on 07/11 with PsA (hollis-S). Would continue IV vancomycin and meropenem for now, which will cover for both sacral wound SSTI (sacral wound cx growing probable Pseudomonas, awaiting susceptibilities) and polymicrobial bacteremias (Group C, CoNS 2 morphologies, Corynebacterium). Anticipate 7 to 10-day course of abx to cover for polymicrobial bacteremias and sacral wound SSTI. ID Problem List: 1.Sacral decubitus ulcer with SSTI: CT without evidence of abscess or osteomyelitis. Sacral wound cx from 07/11 with probable Pseudomonas 2.Group C Strep bacteremia: likely 2/2 SSTI 3.CoNS bacteremia: contamination vs. true bacteremia, may be 2/2 SSTI. Grew from both 07/08 and 07/09 blood cultures. 4.Corynebacterium bacteremia: contamination vs. true bacteremia, may be 2/2 SSTI 5.Fevers 6.Possible tracheitis / increased tracheal secretions 07/10 7.Autonomic dysfunction: per notes, he gets rigid, tachycardic, hyperthermic if he misses his usual medications 8.Transaminitis: resolved 9.Pseudomonas in respiratory cx: on 07/06, after receiving a 10 day course of cefepime through 06/28/23. No respiratory issues this hospitalization, no hypoxia, CXR without consolidations. Has grown Pseudomonas in multiple respiratory culture from Mar, Apr, May 2023. Likely represents colonization. Recommendations: - Continue IV vancomycin (dosing per pharmacy) - Continue meropenem for now - Anticipate 7 to 10-day course of abx to cover for polymicrobial bacteremias and sacral wound SSTI - F/u 07/11 sacral wound cx speciation/susceptibilities - Follow-up repeat blood cultures 07/10 for clearance - Continue sacral wound care, would consider reengaging surgery if sacral wound appearance is not improving On 07/18 Patient was readmitted d/t lack of caregiver support, He was HD stable, on baseline 6L trach collar. Labs show normal WBC on 07/19, cr normal, 07/18 Blood cultures growing CoNS (not lugdunensis). CXR Normal Allergies Allergy/AdvReac Type Severity Reaction Status Date / Time No Known Allergies Allergy Unverified 07/08/23 15:52 Home Medications Medication Instructions Recorded Confirmed Type scopolamine base 1 mg over 3 days 1 patch transdermal Q3D 04/02/23 07/18/23 History transdermal patch acetaminophen 325 mg/10.15 mL oral 650 mg (20.3 mL) PEG Q6 #250 mL 04/17/23 07/18/23 Rx suspension bromocriptine 2.5 mg tablet 2.5 mg feeding tube Q6 #120 tabs 04/17/23 07/18/23 Rx bisacodyl 10 mg rectal suppository 10 mg NJ .EVERY 24 HOURS PRN 05/04/23 07/18/23 History Constipation Proheal 30 ml feeding tube BID 07/08/23 07/18/23 History apixaban 5 mg tablet (Eliquis) 5 mg feeding tube BID 07/08/23 07/18/23 History ascorbic acid (vitamin C) 500 mg 500 mg PO DAILY 07/08/23 07/18/23 History tablet baclofen 20 mg tablet 20 mg feeding tube Q6 07/08/23 07/18/23 History collagenase clostridium histo. 250 1 applic topical .EVERY DAY SHIFT 07/08/23 07/18/23 History unit/gram topical ointment (Santyl) collagenase clostridium histo. 250 1 applic topical DIRECTED PRN 07/08/23 07/18/23 History unit/gram topical ointment (Santyl) soilage/dislodgement ferrous sulfate 300 mg (60 mg 325 mg feeding tube Q OTHER DAY 07/08/23 07/18/23 History iron)/5 mL oral liquid lactose-reduced food with fiber 1 ea feeding tube Q4 07/08/23 07/18/23 History 0.06 gram-1.5 kcal/mL oral liquid (Jevity 1.5 Lance) magnesium hydroxide 400 mg/5 mL 2,400 mg feeding tube DAILY PRN 07/08/23 07/18/23 History oral suspension (Milk of Magnesia) Constipation metoprolol tartrate 25 mg tablet 25 mg PEG Q12 07/08/23 07/18/23 History multivitamin 1 tab feeding tube QAM 07/08/23 07/18/23 History sodium phosphates 19 gram-7 118 ml NJ .MORNING OF 4TH DAY PRN 07/08/23 07/18/23 History gram/118 mL enema (Fleet Enema) Constipation water 1 ea UD 07/08/23 07/18/23 History zinc sulfate 50 mg zinc (220 mg) 50 mg feeding tube DAILY 07/08/23 07/18/23 History tablet Magic Mix See Rx Instructions .Route .COMPLEX 07/18/23 07/18/23 History Saccharomyces boulardii 250 mg 250 mg feeding tube DAILY 07/18/23 07/18/23 History capsule dantrolene 100 mg capsule 100 mg feeding tube Q6H 07/18/23 07/18/23 History gabapentin 400 mg capsule 400 mg feeding tube Q4H 07/18/23 07/18/23 History Patient History Medical History History of DVT (deep vein thrombosis) Moderate protein-calorie malnutrition History of nontraumatic rupture of cerebral aneurysm History of traumatic brain injury Surgical History S/P [employer] shunt Social History Smoking Status: Never smoker Tobacco Type: Cigarettes Second Hand Exposure: No; Do You Dip or Chew Tobacco: No; Hx Alcohol Use: No Hx Substance Use: No Preferred Language: Moldovan Communication Ability: Impaired Pencil Maker Required: No Beliefs That Will Affect Care: None Current Living Situation: Correction Feels Safe at Home: Yes Assistive Devices: Other Results & Data Vital Signs (Past 12 Hours) Vital Signs Temp Pulse Pulse Resp BP BP Pulse Ox 07/22/23 09:30 07/22/23 08:00 37.0 C 70 18 111/72 100 07/22/23 06:58 63 07/22/23 03:04 37 C 66 18 103/69 O2 Del Method O2 Flow Rate 07/22/23 09:30 Trach Collar 07/22/23 08:00 Room Air 07/22/23 06:58 07/22/23 03:04 Zac Alexis 6 Laboratory Results Laboratory Results - last 48 hr 07/20/23 07/20/23 07/21/23 12:05 Unknown 07:59 Creatinine 0.41 L Est Cr Clr Drug Dosing 188.4 Est GFR ( Amer) > 150.0 Est GFR (Non-Af Amer) > 150.0 POC Glucose Nasal Screen MRSA (PCR) Cancelled Negative Random Vancomycin 19.5 07/22/23 07/22/23 01:20 09:13 Creatinine 0.41 L Est Cr Clr Drug Dosing 190.2 Est GFR ( Amer) > 150.0 Est GFR (Non-Af Amer) > 150.0 POC Glucose 98 Nasal Screen MRSA (PCR) Random Vancomycin 20.2 H Microbiology 07/18/23 14:35 Blood Aerobic Blood Culture - Preliminary No growth in Aerobic bottle after 48 hours. 07/18/23 14:35 Blood Anaerobic Blood Culture - Final 07/18/23 14:35 Blood Aerobic Blood Culture - Preliminary Coag neg staph not lugdunensis 07/18/23 14:35 Blood Anaerobic Blood Culture - Final Medications Administered Current Inpatient Medications Acetaminophen (Acetaminophen Susp 325 Mg/10.15 Ml Udc) 650 mg PEG Q6 [facility] Stop: 08/19/23 17:59 Last Admin: 07/22/23 11:41 Dose: 650 mg Apixaban (Apixaban 5 Mg Tablet) 5 mg PO BID [facility] Stop: 08/17/23 20:59 Last Admin: 07/22/23 09:22 Dose: 5 mg Ascorbic Acid (Ascorbic Acid 500 Mg Tab) 500 mg PEG DAILY [facility] Stop: 08/18/23 08:59 Last Admin: 07/22/23 09:23 Dose: 500 mg Baclofen (Baclofen 20 Mg Tab) 20 mg PEG Q6H [facility] Stop: 08/19/23 15:14 Last Admin: 07/22/23 09:24 Dose: 20 mg Bisacodyl (Bisacodyl 10 Mg Supp) 10 mg NJ Q24H PRN PRN Reason: Constipation Stop: 08/17/23 13:13 Bromocriptine Mesylate (Bromocriptine Mesylate 2.5 Mg Tab) 2.5 mg PO Q6 [facility] Stop: 08/17/23 17:59 Last Admin: 07/22/23 11:42 Dose: 2.5 mg Dantrolene Sodium (Dantrolene Sodium 25 Mg Cap) 100 mg PEG Q6 [facility] Stop: 08/17/23 17:59 Last Admin: 07/22/23 11:42 Dose: 100 mg Enteral Nutritional Formula (Peptamen 1.5 Lance 1,000 Ml Bag) 0 ml GT QID [facility]; Protocol Stop: 08/17/23 16:59 Last Admin: 07/22/23 09:26 Dose: 250 ml Ferrous Sulfate (Ferrous Sulfate 325 Mg/7.4 Ml Udp) 325 mg PEG Q48H [facility] Stop: 08/17/23 14:59 Last Admin: 07/20/23 15:08 Dose: 325 mg Gabapentin (Gabapentin 250 Mg/5 Ml 470 Ml Btl) 400 mg GT Q6 [facility] Stop: 08/17/23 17:59 Last Admin: 07/22/23 11:41 Dose: 400 mg Vancomycin HCl 750 mg/ Sodium (Chloride) 265 mls @ 200 mls/hr IV Q8H [facility] Stop: 08/04/23 09:59 Last Admin: 07/22/23 10:59 Dose: 200 mls/hr Magnesium Hydroxide (Magnesium Hydroxide Susp 30 Ml Udc) 30 ml PEG DAILY PRN PRN Reason: Constipation Stop: 08/17/23 13:13 Melatonin (Melatonin 3 Mg Tab) 3 mg PO HS [facility] Stop: 08/17/23 20:59 Last Admin: 07/21/23 20:19 Dose: 3 mg Metoprolol Tartrate (Metoprolol Tartrate 25 Mg Tab) 25 mg PEG Q12 [facility] Stop: 08/17/23 20:59 Last Admin: 07/22/23 09:24 Dose: 25 mg Miscellaneous (Remove Transderm-Scop Patch) 1 each N/A Q72H [facility] Stop: 08/17/23 14:59 Last Admin: 07/21/23 16:08 Dose: 1 each Miscellaneous (Check Scopolamine Patch Placement) 1 each N/A QS [facility] Stop: 08/17/23 15:59 Last Admin: 07/22/23 09:21 Dose: 1 each Miscellaneous Information (Vancomycin Consult Active) 1 each N/A UD PRN PRN Reason: Consult Stop: 08/17/23 13:21 Multivitamins (Multivitamin Tab) 1 tab PO QAM [facility] Stop: 08/18/23 08:59 Last Admin: 07/22/23 09:23 Dose: 1 tab Nutritional Formula (Prosource No Carb 30 Ml/Pkt) 30 ml GT DAILY [facility] Stop: 08/18/23 08:59 Last Admin: 07/22/23 09:25 Dose: 30 ml Polyethylene Glycol (Polyethylene (Miralax) 17 Gm Pack) 17 gm PEG BID [facility] Stop: 08/17/23 20:59 Last Admin: 07/20/23 09:07 Dose: Not Given Scopolamine (Scopolamine 1 Mg Tdsy) 1 mg TD Q3D [facility] Stop: 08/17/23 14:59 Last Admin: 07/21/23 16:07 Dose: 1 mg Sodium Biphosphate/Sodium Phosphate (Sod Phosphate/Sod Biphosphate Enema 132 Ml Btl) 118 ml NJ ONCE PRN PRN Reason: constipation Stop: 08/17/23 13:13 Sterile Water (Tube Feeding Water Flush) 100 ml GT Q4H [facility] Stop: 08/17/23 16:59 Last Admin: 07/22/23 09:24 Dose: 100 ml Zinc Sulfate (Zinc Sulfate 220 Mg Capsule) 220 mg PO DAILY [facility] Stop: 08/18/23 08:59 Last Admin: 07/22/23 09:22 Dose: 220 mg
--- NOTE | 2023-07-22 14:55 | Hospitalist Progress Note ---
Date of Service July 22, 2023 Assessment & Plan (1) Hospital admission due to lack of caregiver: Plan: Ry suffered a ruptured brain aneurysm and SAH 08/2022 Had craniotomy and evacuation. skull fragment was reimplanted in November per family. Had a UPHOLSTERER OUTSIDE shunt S1 at [facility]. Is now functionally quadriplegic. Has history of severe autonomic dysfunction / paroxysmal sympathetic hyperactivity / autonomic storm which is controlled on medications and has the potential to be confused with sepsis. -Currently hemodynamically stable, stable on baseline 6L via trach collar, and non-toxic appearing -Was brought back to the ED via EMS after [facility] refused to take the patient back due to lack of bed availability >Mother is working with Case Management to figure out new disposition on discharge -He is otherwise at his current baseline since being discharged from [facility] on 07/17/23 -Continue NPO status, continue tube feeding via getube -continue routine tracheostomy care -continue wound care -Continue BID Eliquis pe PEG for DVT PPX -CBC, CMP, mag, lactate, and procal on admission - reviewed and unremarkable (2) Gram-positive bacteremia: Plan: Treated with pip-tazo through 07/19 to complete 10 day course for infections. Reviewed last ID note 07/15/23 Vancomycin 10d course was scheduled to end 07/19 but extended pending blood culture as below Recent infectious issues: SSTI sacral decubitus ulcer, CT without e/o osteomyelitis, pseudomonas on culture, treated with pip-tazo as above Group C strep bacteremia source thought wound/SSTI, abx as above CONS bacteremia - contaminant vs bacteremia, completing 10d vancomycin as above (grew from 07/08, 07/09 blood cultures) Corynebacterium bacteremia - "" Sputum colonized with pseudomonas, possible tracheitis with increased secretions 07/10, treated with pip-tazo one bottle of 4 blood culture from ED from 07/18 is positive for CONS. other bottles remain negative to date 07/17 blood cultures still NGTD -consulted ID, reviewed recs in note, CONS from 07/18 likely skin contaminant, stopped vancomycin (3) Decubitus ulcer of sacral region, stage 4: Plan: -Surgery was consulted last admission, recent CT, did not recommend debridement -wound care nurse consulted for continued management -continue wound care pressure offloading (4) Transaminitis: Plan: -Reported during last admission, resolved LFT normal this admission -No liver abnormality on CT during last admission -resume usual acetaminophen at reduced dose - 2g / 24h (5) Severe protein-calorie malnutrition: Plan: BMI 18, diffuse sarcopenia / muscle wasting present -dependent on tube feeding. weight stable last few months -continue tube feeding (6) History of DVT (deep vein thrombosis): Plan: Continue Eliquis (7) Pneumatosis coli: Plan: -Evaluated by General surgery last admission, no initial plans on invasive Margret gement -diarrhea 07/20, miralax held. Loose but not high quantity 07/21-07/22 -Monitor for constipation, resume miralax if indicated (8) History of nontraumatic rupture of cerebral aneurysm: Plan: -Patient is nonverbal at baseline with chronic contractures in all 4 extremities -CT head shows encephalomalacia and good shunt placement (9) Autonomic dysfunction: Plan: -Continue dantrolene and bromocriptine -Continue gabapentin and baclofen for spasticity (10) Decubitus ulcer of calf, unstageable: Plan: -Eschar present with no surrounding cellulitis. -pt tends to rest with legs crossed -Continue wound care nurse consult (11) Cardiomyopathy: Plan: -Euvolemic on exam -last TTE 07/11/23 low normal EF 50-55% (12) Tracheostomy status: Plan: -Q-shift trach care ordered -colonized with pseudomonas Plan diarrhea - was on bid miralax - held for now, assess response Wound care recs To sacrum/ coccyx/buttocks area- Irrigate with NSS, a 35cc syringe and a blunt needle. Apply Aquacel Ag and secure with Optifoam. Change daily, or if soiled or drainage excedes 50% of dressing. Do not allow wet dressings to remain in place . Left ear: change every 3 days or if drainage is greater than 50 %. Expect drainage. to right and left lateral lower legsApply Optifoams and waffleboots. Turn and reposition pt. at least every 2 hours. Suggest low-air - loss or alternating pressure mattress Updated his aunt at bedside 07/22 Admission and Anticipated Discharge Date Admission Date: July 18, 2023 Binta Raza is currently getting wound care to his sacrum. His aunt is visiting. His eyes are open. Physical Exam Physical Exam: PHYSICAL EXAMINATION Last 24h vital signs reviewed, see documentation in flowsheet General: chronically ill-appearing young man,comfortable appearing, no distress HEENT: eyes are open, trach in anterior neck is clean dry and intact, no evidence of excessive secretions Lungs: Normal respiratory effort. Clear to auscultation bilaterally. No RRW Heart: Regular rate and rhythm, no murmurs. No JVD Abdomen: Soft, nontender, nondistended. Bowel sounds present. G-tube site mid abdomen. Rectal bag small amt liquid brown stool Sacral pressure ulcer apx 8cm with dark eschar in center, edges pink with some undermining, no foul odor or surrounding cellulitis Extremities: Warm, dry, well-perfused. No extremity edema. diffuse sarcopenia present he has flexion contractures of both wrists, right elbow, bilateral lower extremities mildly flexed, high tone throughout Neuro: awake, eyes open, baseline exam: opens eyes and tracks visually but is nonverbal, sometimes will move R arm or lift head, does not follow commands, bedbound Psych: unable to assess, no agitation Results & Data Results & Data Vital Signs (Past 12 Hours) Vital Signs Temp Pulse Pulse Resp BP BP Pulse Ox 07/22/23 12:40 37.3 C 82 18 129/83 100 07/22/23 09:30 07/22/23 08:00 37.0 C 70 18 111/72 100 07/22/23 06:58 63 07/22/23 03:04 37 C 66 18 103/69 O2 Del Method O2 Flow Rate 07/22/23 12:40 Room Air 07/22/23 09:30 Trach Collar 07/22/23 08:00 Room Air 07/22/23 06:58 07/22/23 03:04 Trach Collar 6 PG Care Time/CCT Total # of Minutes Spent Total Time Spent with Patient: Total time spent is greater than 50% in coordination of care (as documented) at patient's floor/unit and/or counseling patient: Coding Level of Care Code 01969 SUB INP/OBS CARE 2/35MIN Diagnoses Hospital admission due to lack of caregiver Z74.2 Gram-positive bacteremia R78.81 Decubitus ulcer of sacral region, stage 4 L89.154 Transaminitis R74.01 Severe protein-calorie malnutrition E43 History of DVT (deep vein thrombosis) Z86.718 Pneumatosis coli K63.89 History of nontraumatic rupture of cerebral aneurysm Z86.79 Autonomic dysfunction G90.9 Decubitus ulcer of calf, unstageable L89.890 Cardiomyopathy I42.9 Tracheostomy status Z93.0
[2023-07-23] MEDS: LACTATED RINGER'S 500 ML IV ONE (08:45)
[2023-07-23 08:50] LABS: Basophils # (auto) 0.07 K/uL (0.00-0.20); Basophils % (auto) 0.9 %; Eosinophils # (auto) 0.24 K/uL (0.00-0.50); Eosinophils % (auto) 3.1 %; Hematocrit (blood only) 29.1 % (42.0-52.0); Hemoglobin 9.4 g/dl (14.0-18.0); Immature Granulocytes # (auto) 0.02 K/uL (0.01-0.20); Immature Granulocytes % (auto) 0.3 %; Lymphocytes # (auto) 1.49 K/uL (1.20-3.40); Lymphocytes % (auto) 19.3 %; Mean Corpuscular Hgb Conc 32.3 g/dL (32.0-36.0); Mean Platelet Volume 10.7 fL (9.4-12.4); Monocytes # (auto) 0.73 K/uL (0.11-0.59); Monocytes % (auto) 9.5 %; Neutrophils # (auto) 5.16 K/uL (1.40-6.50); Neutrophils % (auto) 66.9 %; Platelet Count 396 K/uL (130-400); RDW Coefficient of Variation 13.7 % (11.5-14.5); RDW Standard Deviation 47.8 fL (36.4-46.3); Red Blood Count 3.03 M/uL (4.70-6.10); White Blood Count 7.71 K/ul (4.8-10.8)
[2023-07-23] MEDS: VANCOMYCIN LEVEL ONE (08:54)
[2023-07-23] MEDS: KETOROLAC TROMETHAMINE 15 MG/ML VIAL IV ONE (08:55)
[2023-07-23 09:06] LABS: Anion Gap 7 (3-11); BUN Creatinine Ratio 37.2 (10-20); Blood Urea Nitrogen 16 mg/dl (6-23); Calcium 9.9 mg/dl (8.6-10.3); Carbon Dioxide 30 mmol/L (21-32); Chloride 104 mmol/L (98-107); Creatinine Clr Calc Pharmacy 189.8 ml/min; Est GFR (African American) > 150.0 ml/min; Est GFR (Non-African American) > 150.0 ml/min; Glucose 111 mg/dl (70-99(Fasting)); Potassium 4.1 mmol/L (3.5-5.1); Sodium 141 mmol/L (136-145)
--- NOTE | 2023-07-23 09:42 | XRay Report ---
SINGLE VIEW CHEST CLINICAL HISTORY: Fever FINDINGS: An AP, portable, semierect chest radiograph is compared to study dated 07/17/2023 and correl ated with chest CT dated 05/07/2023. A ventricular shunt catheter traverses the left chest wall. Trac heostomy is unchanged in position. The cardiomediastinal silhouette is unremarkable. The lungs and pl eural spaces are clear. No pneumothorax is seen. The skeletal structures appear osteopenic. The bony thorax is grossly intact. IMPRESSION: No active disease in the chest. ACT 112: Negative or not required by law. Electronically signed by: Jayce Waite M.D. 07/23/2023 9:40 AM
[2023-07-23 11:21] LABS: Influenza A virus by PCR Negative (Neg); Influenza B virus by PCR Negative (Neg); RSV by PCR Negative (Neg); SARS CoV2 RNA(COVID-19) Ceph NEGATIVE (Negative)
[2023-07-23] MEDS ORDERED: VANCOMYCIN CONSULT ACTIVE PRN (15:36)
[2023-07-23] MEDS: MICONAZOLE NITRATE POWDER 85 GM EXT SCH (17:36)
[2023-07-23] MEDS: VANCOMYCIN HCL 750 MG in SODIUM CHLORIDE 0.9% 250 ML IV SCH (17:38)
--- NOTE | 2023-07-23 20:50 | Hospitalist Progress Note ---
Date of Service July 23, 2023 Assessment & Plan (1) Fever: Plan: patient has had fever spikes due to his autonomic storming/hyperactivity but also has had positive blood cultures, infected sacral decub, etc. thus, I don't want to blame his current fever on autonomic storming at this point. fever w/u ordered for today -- * COVID/flu/RSV swab -- returned negative * cxr -- neg for infiltrates * blood cx's x 2 sets obtained given recent [employer] in his prior blood cx's * vancomycin empirically while awaiting the repeat blood cx's * sacral decub -- if any worsening then CT pelvis or MRI to r/o underlying abscess or osteomyelitis (2) Gram-positive bacteremia: Plan: Treated with pip-tazo through 07/19 to complete 10 day course for coag neg staph/group C strep bacteremia during prior hospitalization. Vancomycin 10d course was scheduled to end 07/19 but I called and spoke with pharmacy - plan to extend this pending his repeat blood cx's today. Recent infectious issues: SSTI sacral decubitus ulcer, CT without osteomyelitis, pseudomonas on culture, treated with pip-tazo as above Group C strep bacteremia source thought wound/SSTI, abx as above CONS bacteremia - contaminant vs bacteremia, completing 10d vancomycin as above (grew from 07/08, 07/09 blood cultures) Corynebacterium bacteremia - "" Sputum colonized with pseudomonas, possible tracheitis with increased secretions 07/10, treated with pip-tazo one bottle of 4 blood culture from ED from 07/18 is positive for CONS. other bottles remain negative to date 07/17 blood cultures still NGTD appreciate ongoing ID support (3) Decubitus ulcer of sacral region, stage 4: Plan: -Surgery was consulted last admission - did not recommend surgical debridement in OR -wound care nurse consulted for continued management -continue wound care pressure offloading To sacrum/ coccyx/buttocks area- Irrigate with NSS, a 35cc syringe and a blunt needle. Apply Aquacel Ag and secure with Optifoam. Change daily, or if soiled or drainage excedes 50% of dressing. Do not allow wet dressings to remain in place low threshold to re-image the sacrum if ongoing fevers or concerns for sepsis (4) Transaminitis: Plan: resolved (5) Severe protein-calorie malnutrition: Plan: BMI 18, diffuse sarcopenia / muscle wasting present -dependent on tube feeding. weight stable last few months -continue tube feedings as previous (6) History of DVT (deep vein thrombosis): Plan: Continue Eliquis BID (7) Pneumatosis coli: Plan: -Evaluated by General surgery last admission since no surgical abdomen/peritonitis/symptoms no Rx recommended etiology?? ischemic event? if fevers persist, etc would re-image (8) History of nontraumatic rupture of cerebral aneurysm: Plan: Patient is nonverbal at baseline with chronic contractures in all 4 extremities Acquired quadriplegia [address] head shows encephalomalacia and good shunt placement Ry suffered a ruptured brain aneurysm and SAH 08/2022 Had craniotomy and evacuation. skull fragment was reimplanted in November per family. Had a [employer] HAND shunt placement at [facility]. Has history of severe autonomic dysfunction / paroxysmal sympathetic hyperactivity / autonomic storm which is controlled on medications and has the potential to be confused with sepsis. Cont complex regimen of meds for this issue (dantrolene, scop patch, etc) (9) Autonomic dysfunction: Plan: -Continue dantrolene and bromocriptine -Continue gabapentin and baclofen for spasticity (10) Decubitus ulcer of calf, unstageable: Plan: -Eschar present with no surrounding cellulitis. 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 diff Plan Left ear ulceration: change every 3 days or if drainage is greater than 50 %. Admission and Anticipated Discharge Date Admission Date: July 18, 2023 Subjective was called by nursing staff this am that Ry had a fever of 102 and his BP was mildly low -- systolic was 90s since he is already on tylenol scheduled gave small dose of IV toradol for the fever and gave a saline bolus upon arrival he was resting comfortably in bed eyes were open intermittently does not speak does not follow commands this is all baseline since his brain injury in 2022 urine output is copious he has a rectal tube in place no issues with tube feedings via PEG Review of Systems Review of Systems: Unobtainable due to cognitive status and Unobtainable due to reduced consciousness Physical Exam Physical Exam: gen - chronically ill appearing but NAD, thin, generalized muscle wasting noted head - deformity right side from prior craniotomy; left ear pinnae - small ulceration without cellulitis; covered w/ bandaid mouth - MMM neck - no JVD; trach in place - yellow discharge when he coughed heart - RRR, s1 s2, no murmur lungs - CTA b/l abd - soft NT ND BS+; PEG tube clean ext - trace edema, pulses 2+ b/l skin - with assistance from staff I examined his sacral wound - it is quite deep, at least 1/2cm in depth down to fascial/muscle layer; no visible bone f ortunately; no odor, mild drainage; decub is irregular in shape; candidal rash of penis, scrotal region and groin Results & Data Results & Data Vital Signs (Past 12 Hours) Vital Signs Temp Pulse Pulse Resp BP BP Pulse Ox 07/23/23 19:21 37.1 C 74 18 118/72 99 07/23/23 19:20 07/23/23 16:23 37.3 C 79 20 109/72 99 07/23/23 15:58 77 07/23/23 11:33 36.9 C 68 20 94/59 L 100 07/23/23 11:00 07/23/23 09:31 95/61 L 07/23/23 09:00 Pulse Ox O2 Del Method O2 Del Method O2 Flow Rate O2 Flow Rate 07/23/23 19:21 Room Air 07/23/23 19:20 Trach Collar 6 07/23/23 16:23 Trach Collar 6 07/23/23 15:58 07/23/23 11:33 Trach Collar 6 07/23/23 11:00 100 Trach Collar 6 07/23/23 09:31 07/23/23 09:00 Trach Collar 6 Laboratory Results Laboratory Results 07/22/23 07/23/23 07/23/23 09:13 08:29 Unknown WBC 7.71 RBC 3.03 L Hgb 9.4 L Hct 29.1 L MCV 96.0 MCH 31.0 MCHC 32.3 RDW Std Deviation 47.8 H RDW Coeff of Dario 13.7 Plt Count 396 MPV 10.7 Immature Gran % (Auto) 0.3 Neut % (Auto) 66.9 Lymph % (Auto) 19.3 [place] % (Auto) 9.5 Eos % (Auto) 3.1 Baso % (Auto) 0.9 Neut # (Auto) 5.16 Lymph # (Auto) 1.49 [place] # (Auto) 0.73 H Eos # (Auto) 0.24 Baso # (Auto) 0.07 Immature Gran # (Auto) 0.02 Sodium 141 Potassium 4.1 Chloride 104 Carbon Dioxide 30 Anion Gap 7 BUN 16 Creatinine 0.41 L 0.43 L Est Cr Clr Drug Dosing 190.2 189.8 Est GFR ( Amer) > 150.0 > 150.0 Est GFR (Non-Af Amer) > 150.0 > 150.0 BUN/Creatinine Ratio 37.2 H Glucose 111 H Lactate 1.3 Calcium 9.9 C-Reactive Protein 1.80 H Random Vancomycin 20.2 H 6.3 L SARS-CoV-2 (PCR) NEGATIVE Influenza Type A (PCR) Negative Influenza Type B (PCR) Negative RSV (RT-PCR) Negative Diagnostic Findings Chest X-Ray 07/23/23 08:03 SINGLE VIEW CHEST CLINICAL HISTORY: Fever FINDINGS: An AP, portable, semierect chest radiograph is compared to study dated 07/17/2023 and correlated with chest CT dated 05/07/2023. A ventricular shunt catheter traverses the left chest wall. Tracheostomy is unchanged in position. The cardiomediastinal silhouette is unremarkable. The lungs and pleural spaces are clear. No pneumothorax is seen. The skeletal structures appear osteopenic. The bony thorax is grossly intact. IMPRESSION: No active disease in the chest. ACT 112: Negative or not required by law. Electronically signed by: Jayce Waite M.D. 07/23/2023 9:40 AM PG Care Time/CCT Total # of Minutes Spent Total Time Spent with Patient: Total time spent is greater than 50% in coordination of care (as documented) at patient's floor/unit and/or counseling patient: Coding Level of Care Code 88806 SUB INP/OBS CARE 3/50MIN Diagnoses Fever R50.9 Gram-positive bacteremia R78.81 Decubitus ulcer of sacral region, stage 4 L89.154 Transaminitis R74.01 Severe protein-calorie malnutrition E43 History of DVT (deep vein thrombosis) Z86.718 Pneumatosis coli K63.89 History of nontraumatic rupture of cerebral aneurysm Z86.79 Autonomic dysfunction G90.9 Decubitus ulcer of calf, unstageable L89.890 Cardiomyopathy I42.9 Tracheostomy status Z93.0 Nonverbal R47.01 Quadriplegia G82.50 Sammi rash of groin B37.89 Diarrhea R19.7
[2023-07-24 04:41] LABS: Hematocrit (blood only) 28.6 % (42.0-52.0); Hemoglobin 9.3 g/dl (14.0-18.0); Mean Corpuscular Hemoglobin 31.3 pg (25.0-34.0); Mean Corpuscular Hgb Conc 32.5 g/dL (32.0-36.0); Mean Corpuscular Volume 96.3 fL (80.0-100.0); Mean Platelet Volume 10.2 fL (9.4-12.4); Platelet Count 323 K/uL (130-400); RDW Coefficient of Variation 13.5 % (11.5-14.5); RDW Standard Deviation 47.8 fL (36.4-46.3); Red Blood Count 2.97 M/uL (4.70-6.10); White Blood Count 6.34 K/ul (4.8-10.8)
[2023-07-24 05:01] LABS: Anion Gap 6 (3-11); BUN Creatinine Ratio 41.5 (10-20); Blood Urea Nitrogen 17 mg/dl (6-23); Calcium 9.3 mg/dl (8.6-10.3); Carbon Dioxide 29 mmol/L (21-32); Chloride 106 mmol/L (98-107); Est GFR (African American) > 150.0 ml/min; Est GFR (Non-African American) > 150.0 ml/min; Glucose 87 mg/dl (70-99(Fasting)); Potassium 4.1 mmol/L (3.5-5.1); Sodium 141 mmol/L (136-145)
[2023-07-24] MEDS: VANCOMYCIN LEVEL ONE (08:59)
--- NOTE | 2023-07-24 09:40 | Pharmacy Report ---
Pharmacy PK ABX Note - Date of Service July 24, 2023 - Assessment and Plan Assessment 07/18: 32 year old M receiving vancomycin/zosyn. Patient previously discharged yesterday evening, however readmitted due to lack of caregiver per notes. Pt previously being treated with vancomycin/zosyn last admission for bacteremia/sputum cultures. ID had recommended 7-10 days of treatment. Last dose of both antibiotics 07/19 per provider notes. Suspected source of infection r elated to sacral ulcers. Will reassess plan tomorrow as new blood cultures ordered and pending. PMHx significant for chronic trach, PEG tube, nonverbal status, paraplegia. 07/21: Vanc level was 19.5 mcg/mL this AM (drawn appropriately) which is predicted to be supratherapeutic (AUC/BASHIR of 638 mg/L.hr). Patient has had intermittent low grade fevers over the last 48 hours (Tmax 37.8oC). Blood cultures from 07/18 are growing Coag negative staph (not lugdunensis) in 1/ bottles. Uncertain if this represents contamination vs recurrent bacteremia. Of note, prior to previous discharge, repeat blood cultures on 07/17 were negative. Provider to reach out to infectious disease today to get their opinion. Will await further instruction. At this time, will reduce vancomycin dose to prevent ROSEANN. 07/22: Vancomycin level 20.2 mcg/mL today (drawn appropriately) this is predicted to achieve and AUC/BASHIR within goal range. Patient is a reported intermediate fit in [facility], so will repeat level again tomorrow for more clarity. Continue vancomycin at least until blood cultures finalize per notes. 07/24: Vancomycin stopped 07/22 per ID, "I suspect the CoNS is contaminant, would dc Vancomycin and monitor off", patient febrile yesterday, vancomycin restarted, repeat blood cultures taken, NG x24 hours. Vancomycin random this AM to assess previous regimen. Predicting an AUC/BASHIR within goal range, but patient is an intermediate fit on [facility]. Level drawn prior to reaching steady state, will draw another level tomorrow morning to further assess regimen. Plan Vancomycin * Current regimen: vancomycin 750 mg IV every 8 hours * Continue vancomycin 750 mg IV every 8 hours. Predicted AUC at steady state: 511 mg/L.hr with 91% certainty of reaching goal AUC/BASHIR per [facility] * Repeat trough level ordered for: 07/25 @2225 Pharmacy will continue to follow and will adjust dose/frequency as necessary. Thank you. Pharmacy has transitioned to AUC monitoring for vancomycin. AUC/BASHIR is the preferred PK/PD target and is associated with decreased risk of nephrotoxicity compared to traditional trough targets.
--- NOTE | 2023-07-24 20:29 | Hospitalist Progress Note ---
Date of Service July 24, 2023 Assessment & Plan (1) Fever: Plan: patient has had fever spikes due to his autonomic storming/hyperactivity but also has had positive blood cultures, infected sacral decub, etc - latter over the last few weeks. thus far -- * COVID/flu/RSV swab -- negative * cxr -- neg for infiltrates * blood cx's x 2 from 07/23 negative to date * vancomycin empirically while awaiting the repeat blood cx's; if they remain negative thru tomorrow will stop vanco * sacral decub -- if any worsening then CT pelvis or MRI to r/o underlying abscess or osteomyelitis (2) Gram-positive bacteremia: Plan: Treated with pip-tazo through 07/19 to complete 10 day course for coag neg staph/group C strep bacteremia during prior hospitalization. Vancomycin 10d course was scheduled to end 07/19 but has been continued due to fever on 07/23. Recent infectious issues: SSTI sacral decubitus ulcer, CT without osteomyelitis, pseudomonas on culture, treated with pip-tazo as above Group C strep bacteremia source thought wound/SSTI, abx as above CONS bacteremia - contaminant vs bacteremia, completing 10d vancomycin as above (grew from 07/08, 07/09 blood cultures) Corynebacterium bacteremia - "" Sputum colonized with pseudomonas, possible tracheitis with increased secretions 07/10, treated with pip-tazo one bottle of 4 blood culture from ED from 07/18 is positive for CONS. other bottles remain negative to date 07/17 blood cultures still NGTD appreciate ongoing ID support (3) Decubitus ulcer of sacral region, stage 4: Plan: Surgery was consulted last admission - did not recommend surgical debridement in OR wound care nurse consulted for continued management continue wound care pressure offloading To sacrum/ coccyx/buttocks area- Irrigate with NSS, a 35cc syringe and a blunt needle. Apply Aquacel Ag and secure with Optifoam. Change daily, or if soiled or drainage excedes 50% of dressing. Do not allow wet dressings to remain in place low threshold to re-image the sacrum if ongoing fevers or concerns for sepsis rectal tube placed earlier in admission due to frequent stooling the stooling has slowed down; will try to remove tomorrow if his decubitus fails to improve due to stool getting into the wound -- consider colostomy creation?? (4) Transaminitis: Plan: resolved (5) Severe protein-calorie malnutrition: Plan: BMI 18, diffuse sarcopenia / muscle wasting present continue tube feedings as previous with peptamen (6) History of DVT (deep vein thrombosis): Plan: Continue Eliquis BID (7) Pneumatosis coli: Plan: Evaluated by General surgery last admission since no surgical abdomen/peritonitis/symptoms no Rx recommended during that admission etiology?? ischemic event? if fevers persist, etc would re-image the abdomen abdominal exam remains quite soft and benign (8) History of nontraumatic rupture of cerebral aneurysm: Plan: Patient is nonverbal at baseline with chronic contractures in all 4 extremities Acquired quadriplegia [address] head shows encephalomalacia and good shunt placement Ry suffered a ruptured brain aneurysm and SAH 08/2022 Had craniotomy and evacuation. skull fragment was reimplanted in November per family. Had a [employer] shunt placement at [facility]. Has history of severe autonomic dysfunction / paroxysmal sympathetic hyperactivity / autonomic storm which is controlled on medications and has the potential to be confused with sepsis. Cont complex regimen of meds for this issue (dantrolene, scop patch, etc) (9) Autonomic dysfunction: Plan: Continue dantrolene and bromocriptine Continue gabapentin and baclofen for spasticity (10) Decubitus ulcer of calf, unstageable: Plan: Eschar present with no surrounding cellulitis Continue wound care as advised by wound care team (11) Cardiomyopathy: Plan: last echo 07/11/23 - low normal EF 50-55% compensated on exam (12) Tracheostomy status: Plan: colonized with pseudomonas cont local trach care cxr today neg for infiltrates sputum via trach is stable and not copious O2 requirement unchanged (13) 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 diff if stool output remains low would remove rectal tube in the next 1-2 days Plan will update pt's family tomorrow Admission and Anticipated Discharge Date Admission Date: July 18, 2023 Subjective no events overnight per staff rectal tube with low output - <200cc of stool since overnight o2 requirements remain the same small amount of yellow/nunes secretions only no respiratory distress per staff tolerating tube feedings Review of Systems Review of Systems: Unobtainable due to cognitive status and Unobtainable due to reduced consciousness Physical Exam Physical Exam: gen - chronically ill appearing, very thin, NAD, generalized muscle wasting eyes - nystagmus (horizontal) noted, eye blinking noted head - deformity right side from prior craniotomy; bandaid in place over L ear mouth - MMM neck - no JVD; trach in place - clean heart - RRR, s1 s2, no murmur lungs - CTA b/l abd - soft NT ND BS+; PEG tube site clean ext - trace edema, pulses 2+ b/l neuro - contractures (severe) x 4 extremities Results & Data Results & Data Vital Signs (Past 12 Hours) Vital Signs Temp Pulse Pulse Resp BP Pulse Ox Pulse Ox 07/24/23 20:10 07/24/23 19:35 37.6 C H 96 H 18 113/72 99 07/24/23 16:24 37.4 C 86 17 108/73 100 07/24/23 14:42 88 07/24/23 11:39 36.9 C 72 112/72 99 07/24/23 11:39 99 07/24/23 10:15 O2 Del Method O2 Del Method O2 Flow Rate O2 Flow Rate 07/24/23 20:10 Trach Collar 6 07/24/23 19:35 Trach Collar 6 07/24/23 16:24 Trach Collar 6 07/24/23 14:42 07/24/23 11:39 Trach Collar 6 07/24/23 11:39 Trach Collar 6 07/24/23 10:15 Trach Collar 6 Laboratory Results Laboratory Results - last 24 hr 07/24/23 07/24/23 07/24/23 04:25 08:33 12:16 WBC 6.34 RBC 2.97 L Hgb 9.3 L Hct 28.6 L MCV 96.3 MCH 31.3 MCHC 32.5 RDW Std Deviation 47.8 H RDW Coeff of Dario 13.5 Plt Count 323 MPV 10.2 Sodium 141 Potassium 4.1 Chloride 106 Carbon Dioxide 29 Anion Gap 6 BUN 17 Creatinine 0.41 L Est Cr Clr Drug Dosing 199.0 Est GFR ( Amer) > 150.0 Est GFR (Non-Af Amer) > 150.0 BUN/Creatinine Ratio 41.5 H Glucose 87 POC Glucose 126 H Calcium 9.3 Random Vancomycin 11.8 07/24/23 18:00 WBC RBC Hgb Hct MCV MCH MCHC RDW Std Deviation RDW Coeff of Dario Plt Count MPV Sodium Potassium Chloride Carbon Dioxide Anion Gap BUN Creatinine Est Cr Clr Drug Dosing Est GFR ( Amer) Est GFR (Non-Af Amer) BUN/Creatinine Ratio Glucose POC Glucose 137 H Calcium Random Vancomycin PG Care Time/CCT Total # of Minutes Spent Total Time Spent with Patient: Total time spent is greater than 50% in coordination of care (as documented) at patient's floor/unit and/or counseling patient: Coding Level of Care Code 99154 SUB INP/OBS CARE 2/35MIN Diagnoses Fever R50.9 Gram-positive bacteremia R78.81 Decubitus ulcer of sacral region, stage 4 L89.154 Transaminitis R74.01 Severe protein-calorie malnutrition E43 History of DVT (deep vein thrombosis) Z86.718 Pneumatosis coli K63.89 History of nontraumatic rupture of cerebral aneurysm Z86.79 Autonomic dysfunction G90.9 Decubitus ulcer of calf, unstageable L89.890 Cardiomyopathy I42.9 Tracheostomy status Z93.0 Nonverbal R47.01 Quadriplegia G82.50 Sammi rash of groin B37.89 Diarrhea R19.7
[2023-07-25 09:05] LABS: Anion Gap 7 (3-11); BUN Creatinine Ratio 31.3 (10-20); Blood Urea Nitrogen 15 mg/dl (6-23); Carbon Dioxide 31 mmol/L (21-32); Chloride 103 mmol/L (98-107); Creatinine Clr Calc Pharmacy 174.4 ml/min; Est GFR (African American) > 150.0 ml/min; Est GFR (Non-African American) 145.8 ml/min; Glucose 87 mg/dl (70-99(Fasting)); Potassium 4.2 mmol/L (3.5-5.1); Sodium 141 mmol/L (136-145)
--- NOTE | 2023-07-25 09:15 | Pharmacy Report ---
Pharmacy PK ABX Note - Date of Service July 25, 2023 - Assessment and Plan Assessment 07/18: 32 year old M receiving vancomycin/zosyn. Patient previously discharged yesterday evening, however readmitted due to lack of caregiver per notes. Pt previously being treated with vancomycin/zosyn last admission for bacteremia/sputum cultures. ID had recommended 7-10 days of treatment. Last dose of both antibiotics 07/19 per provider notes. Suspected source of infection r elated to sacral ulcers. Will reassess plan tomorrow as new blood cultures ordered and pending. PMHx significant for chronic trach, PEG tube, nonverbal status, paraplegia. 07/21: Vanc level was 19.5 mcg/mL this AM (drawn appropriately) which is predicted to be supratherapeutic (AUC/BASHIR of 638 mg/L.hr). Patient has had intermittent low grade fevers over the last 48 hours (Tmax 37.8oC). Blood cultures from 07/18 are growing Coag negative staph (not lugdunensis) in 1/ bottles. Uncertain if this represents contamination vs recurrent bacteremia. Of note, prior to previous discharge, repeat blood cultures on 07/17 were negative. Provider to reach out to infectious disease today to get their opinion. Will await further instruction. At this time, will reduce vancomycin dose to prevent ROSEANN. 07/22: Vancomycin level 20.2 mcg/mL today (drawn appropriately) this is predicted to achieve and AUC/BASHIR within goal range. Patient is a reported intermediate fit in [facility], so will repeat level again tomorrow for more clarity. Continue vancomycin at least until blood cultures finalize per notes. 07/24: Vancomycin stopped 07/22 per ID, "I suspect the CoNS is contaminant, would dc Vancomycin and monitor off", patient febrile yesterday, vancomycin restarted, repeat blood cultures taken, NG x24 hours. Vancomycin random this AM to assess previous regimen. Predicting an AUC/BASHIR within goal range, but patient is an intermediate fit on [facility]. Level drawn prior to reaching steady state, will draw another level tomorrow morning to further assess regimen. 07/25: Vancomycin trough returned within goal range, continue current regimen, renal function stable. Repeat blood cultures NG x24 hours. Patient febrile yesterday evening, but has reported autonomic dysfunction. Plan Vancomycin * Current regimen: vancomycin 750 mg IV every 8 hours * Continue vancomycin 750 mg IV every 8 hours. Predicted AUC at steady state: 518 mg/L.hr with 92% certainty of reaching goal AUC/BASHIR per [facility] * Repeat trough as clinically indicated if continuing vancomycin Pharmacy will continue to follow and will adjust dose/frequency as necessary. Thank you. Pharmacy has transitioned to AUC monitoring for vancomycin. AUC/BASHIR is the preferred PK/PD target and is associated with decreased risk of nephrotoxicity compared to traditional trough targets.
--- NOTE | 2023-07-25 20:15 | Hospitalist Progress Note ---
Date of Service July 25, 2023 Assessment & Plan (1) Fever: Plan: patient has had fever spikes due to his autonomic storming/hyperactivity but also has had positive blood cultures, infected sacral decub, etc - latter over the last few weeks. then had fever again on 07/23/23. work-up obtained then -- * COVID/flu/RSV swab -- negative * cxr -- neg for infiltrates * blood cx's x 2 from 07/23 remain negative to date * vancomycin IV was continued after this fever spike; since blood cx's are negative will d/c today * sacral decub -- if any worsening then CT pelvis or MRI to r/o underlying abscess or osteomyelitis (2) Gram-positive bacteremia: Plan: Treated with pip-tazo through 07/19 to complete 10 day course for coag neg staph/group C strep bacteremia during prior hospitalization. Vancomycin 10d course was scheduled to end 07/19 but has been continued due to fever on 07/23. Recent infectious issues: SSTI sacral decubitus ulcer, CT without osteomyelitis, pseudomonas on culture, treated with pip-tazo as above Group C strep bacteremia source thought wound/SSTI, abx as above CONS bacteremia - contaminant vs bacteremia, completing 10d vancomycin as above (grew from 07/08, 07/09 blood cultures) Corynebacterium bacteremia - "" Sputum colonized with pseudomonas, possible tracheitis with increased secretions 07/10, treated with pip-tazo one bottle of 4 blood culture from ED from 07/18 is positive for CONS. other bottles remain negative to date 07/17 blood cultures still NGTD see above in #1 re: recent fever appreciate ongoing ID support (3) Decubitus ulcer of sacral region, stage 4: Plan: Surgery was consulted last admission - did not recommend surgical debridement in OR wound care nurse consulted for continued management continue wound care pressure offloading To sacrum/ coccyx/buttocks area- Irrigate with NSS, a 35cc syringe and a blunt needle. Apply Aquacel Ag and secure with Optifoam. Change daily, or if soiled or drainage excedes 50% of dressing. Do not allow wet dressings to remain in place low threshold to re-image the sacrum if ongoing fevers or concerns for sepsis rectal tube placed earlier in admission due to frequent stooling the stooling has slowed down; thus - removed the tube today; no stool since removal if his decubitus fails to improve due to stool getting into the wound -- co nsider colostomy creation?? (4) Transaminitis: Plan: resolved (5) Severe protein-calorie malnutrition: Plan: BMI 18, diffuse sarcopenia / muscle wasting present continue tube feedings as previous with peptamen (6) History of DVT (deep vein thrombosis): Plan: Continue Eliquis BID (7) Pneumatosis coli: Plan: Evaluated by General surgery last admission since no surgical abdomen/peritonitis/symptoms no Rx recommended during that admission etiology?? ischemic event? if fevers persist, etc would re-image the abdomen abdominal exam remains benign / soft (8) History of nontraumatic rupture of cerebral aneurysm: Plan: Patient is nonverbal at baseline with chronic contractures in all 4 extremities Acquired quadriplegia [address] head shows encephalomalacia and good shunt placement Ry suffered a ruptured brain aneurysm and SAH 08/2022 Had craniotomy and evacuation. skull fragment was reimplanted in November per family. 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 Has history of severe autonomic dysfunction / paroxysmal sympathetic hyperactiv ity / autonomic storm which is controlled on medications and has the potential to be confused with sepsis. Cont complex regimen of meds for this issue (dantrolene, scop patch, etc) (9) Autonomic dysfunction: Plan: Continue dantrolene and bromocriptine Continue gabapentin and baclofen for spasticity (10) Decubitus ulcer of calf, unstageable: Plan: Eschar present with no surrounding cellulitis Continue wound care as advised by wound care team (11) Cardiomyopathy: Plan: last echo 07/11/23 - low normal EF 50-55% compensated (12) Tracheostomy status: Plan: colonized with pseudomonas cont local trach care cxr today neg for infiltrates sputum via trach is stable and not copious O2 requirement unchanged (13) 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 (14) Quadriplegia: Plan: 2nd to above (15) Sammi rash of groin: Plan: cont miconazole powder TID (16) Diarrhea: Plan: resolved d/c rectal tube c diff neg on 07/18/23 Plan updated pt's mother by phone this evening dispo - numerous referrals made by social work to various SNFs; he will not be returning to [facility] after this admission Admission and Anticipated Discharge Date Admission Date: July 18, 2023 Subjective no events overnight per staff has not had any BM since d/c of rectal tube no significant sputum via trach stable sats on NC O2 tolerating tube feedings Review of Systems Review of Systems: Unobtainable due to cognitive status and Unobtainable due to reduced consciousness Physical Exam Physical Exam: gen - chronically ill appearing, very thin, NAD, generalized muscle wasting - no change eyes - nystagmus (horizontal) noted, eye blinking noted - when I call his name he does not look at me; no purposeful movements head - deformity right side from prior craniotomy mouth - MMM neck - no JVD; trach in place - clean heart - RRR, s1 s2, no murmur lungs - CTA b/l abd - soft NT ND BS+; PEG tube site clean ext - trace edema, pulses 2+ b/l neuro - contractures all extremities skin - b/l calf ulcerations clean Results & Data Results & Data Vital Signs (Past 12 Hours) Vital Signs Temp Pulse Pulse Resp BP Pulse Ox Pulse Ox 07/25/23 19:46 37.3 C 94 H 16 112/75 99 07/25/23 18:48 77 07/25/23 15:44 07/25/23 15:38 36.9 C 82 18 101/62 100 07/25/23 11:19 36.3 C L 90 16 108/70 99 07/25/23 11:00 98 07/25/23 08:15 36.6 C 69 16 112/75 98 O2 Del Method O2 Del Method O2 Flow Rate O2 Flow Rate 07/25/23 19:46 Trach Collar 6 07/25/23 18:48 07/25/23 15:44 Trach Collar 6 07/25/23 15:38 Room Air 07/25/23 11:19 Trach Collar 07/25/23 11:00 Trach Collar 6 07/25/23 08:15 Trach Collar 6 Laboratory Results Laboratory Results - last 24 hr 07/25/23 07/25/23 07/25/23 00:20 06:12 08:22 Sodium 141 Potassium 4.2 Chloride 103 Carbon Dioxide 31 Anion Gap 7 BUN 15 Creatinine 0.48 L Est Cr Clr Drug Dosing 174.4 Est GFR ( Amer) > 150.0 Est GFR (Non-Af Amer) 145.8 BUN/Creatinine Ratio 31.3 H Glucose 87 POC Glucose 119 H 94 Calcium 10.0 Random Vancomycin 14.7 07/25/23 07/25/23 12:24 19:01 Sodium Potassium Chloride Carbon Dioxide Anion Gap BUN Creatinine Est Cr Clr Drug Dosing Est GFR ( Amer) Est GFR (Non-Af Amer) BUN/Creatinine Ratio Glucose POC Glucose 114 H 118 H Calcium Random Vancomycin PG Care Time/CCT Total # of Minutes Spent Total Time Spent with Patient: Total time spent is greater than 50% in coordination of care (as documented) at patient's floor/unit and/or counseling patient: Coding Level of Care Code 44737 SUB INP/OBS CARE 2/35MIN Diagnoses Fever R50.9 Gram-positive bacteremia R78.81 Decubitus ulcer of sacral region, stage 4 L89.154 Transaminitis R74.01 Severe protein-calorie malnutrition E43 History of DVT (deep vein thrombosis) Z86.718 Pneumatosis coli K63.89 History of nontraumatic rupture of cerebral aneurysm Z86.79 Autonomic dysfunction G90.9 Decubitus ulcer of calf, unstageable L89.890 Cardiomyopathy I42.9 Tracheostomy status Z93.0 Nonverbal R47.01 Quadriplegia G82.50 Sammi rash of groin B37.89 Diarrhea R19.7
--- NOTE | 2023-07-26 18:46 | Hospitalist Progress Note ---
Date of Service July 26, 2023 Assessment & Plan (1) Fever: Plan: patient has had fever spikes throughout this admission due to his autonomic storming/hyperactivity but also has had positive blood cultures, infected sacral decub, etc in the recent past. then had significant fever again on 07/23/23 (101.5). work-up obtained then -- * COVID/flu/RSV swab -- negative * cxr -- neg for infiltrates * blood cx's x 2 from 07/23 remain negative to date; all abx have been stopped * sacral decub -- if any worsening then CT pelvis or MRI to r/o underlying abscess or osteomyelitis over last 1-2 days temps have been, at most 37.5 to 38 (2) Gram-positive bacteremia: Plan: Treated with pip-tazo through 07/19 to complete 10 day course for coag neg staph/group C strep bacteremia during prior hospitalization. Vancomycin 10d course was scheduled to end 07/19 but has been continued due to fever on 07/23. Recent infectious issues: SSTI sacral decubitus ulcer, CT without osteomyelitis, pseudomonas on culture, treated with pip-tazo as above Group C strep bacteremia source thought wound/SSTI, abx as above CONS bacteremia - contaminant vs bacteremia, completing 10d vancomycin as above (grew from 07/08, 07/09 blood cultures) Corynebacterium bacteremia - "" Sputum colonized with pseudomonas, possible tracheitis with increased secretions 07/10, treated with pip-tazo see above in #1 re: recent fever appreciate ongoing ID support (3) Decubitus ulcer of sacral region, stage 4: Plan: Surgery was consulted last admission - did not recommend surgical debridement in OR wound care nurse consulted for continued management continue wound care pressure offloading To sacrum/ coccyx/buttocks area- Irrigate with NSS, a 35cc syringe and a blunt needle. Apply Aquacel Ag and secure with Optifoam. Change daily, or if soiled or drainage excedes 50% of dressing. Do not allow wet dressings to remain in place low threshold to re-image the sacrum if ongoing fevers or concerns for sepsis rectal tube placed earlier in admission due to frequent stooling this was discontinued last 48 hours; no issues since (4) Transaminitis: Plan: resolved (5) Severe protein-calorie malnutrition: Plan: BMI 18, diffuse sarcopenia / muscle wasting present continue tube feedings as previous with peptamen (6) History of DVT (deep vein thrombosis): Plan: Continue Eliquis BID (7) Pneumatosis coli: Plan: Evaluated by General surgery last admission since no surgical abdomen/peritonitis/symptoms no Rx recommended during that admission etiology?? ischemic event? if fevers persist, etc would re-image the abdomen abdominal exam remains benign / soft (8) History of nontraumatic rupture of cerebral aneurysm: Plan: Patient is nonverbal at baseline with chronic contractures in all 4 extremities Acquired quadriple[address] head shows encephalomalacia and good shunt placement Ry suffered a ruptured brain aneurysm and SAH 08/2022 Had craniotomy and evacuation. skull fragment was reimplanted in November per family. 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 Has history of severe autonomic dysfunction / paroxysmal sympathetic hyperactivity / autonomic storm which is controlled on medications and has the potential to be confused with sepsis. Cont complex regimen of meds for this issue (dantrolene, scop patch, etc) (9) Autonomic dysfunction: Plan: Continue dantrolene and bromocriptine Continue gabapentin and baclofen for spasticity (10) Decubitus ulcer of calf, unstageable: Plan: Eschar present with no surrounding cellulitis Continue wound care as advised by wound care team (11) Cardiomyopathy: Plan: last echo 07/11/23 - low normal EF 50-55% compensated (12) Tracheostomy status: Plan: colonized with pseudomonas cont local trach care cxr today neg for infiltrates sputum via trach is stable and not copious O2 requirement unchanged (13) 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 (14) Quadriplegia: Plan: 2nd to above (15) Sammi rash of groin: Plan: cont miconazole powder TID (16) Diarrhea: Plan: resolved d/c rectal tube c diff neg on 07/18/23 Plan updated pt's mother by phone yesterday evening dispo - numerous referrals made by social work to various SNFs; he will not be returning to [facility] after this admission Admission and Anticipated Discharge Date Admission Date: July 18, 2023 Subjective no events tele stable tolerating tube feedings lewis draining clear yellow urine no significant loose stool or diarrhea Review of Systems Review of Systems: Unobtainable due to cognitive status Physical Exam Physical Exam: gen - chronically ill appearing, very thin, NAD, generalized muscle wasting - no change from prior exams eyes - nystagmus (horizontal) noted, eye blinking noted - when I call his name he does not look at me; no purposeful movements L ear - ulceration nearly healed; no cellulitis head - deformity right side from prior craniotomy mouth - MMM neck - no JVD; trach in place - clean heart - RRR, s1 s2, no murmur lungs - CTA b/l abd - soft NT ND BS+; PEG tube site clean ext - trace edema, pulses 2+ b/l neuro - contractures all extremities skin - balanitis improved; groin rash improved Results & Data Results & Data Vital Signs (Past 12 Hours) Vital Signs Temp Pulse Pulse Resp BP BP Pulse Ox 07/26/23 15:17 37 C 93 H 18 110/74 99 07/26/23 14:01 90 07/26/23 12:06 37.2 C 07/26/23 10:31 37.8 C H 101 H 18 107/75 98 07/26/23 07:30 07/26/23 07:16 37.1 C 104 H 18 114/72 97 O2 Del Method 07/26/23 15:17 Trach Collar 07/26/23 14:01 07/26/23 12:06 07/26/23 10:31 Room Air 07/26/23 07:30 Trach Collar 07/26/23 07:16 Room Air Laboratory Results Laboratory Results - last 24 hr 07/25/23 19:01 POC Glucose 118 H Diagnostic Findings blood cx's from 07/23 negative to date PG Care Time/CCT Total # of Minutes Spent Total Time Spent with Patient: Total time spent is greater than 50% in coordination of care (as documented) at patient's floor/unit and/or counseling patient: Coding Level of Care Code 94805 SUB INP/OBS CARE 07/17MIN Diagnoses Fever R50.9 Gram-positive bacteremia R78.81 Decubitus ulcer of sacral region, stage 4 L89.154 Transaminitis R74.01 Severe protein-calorie malnutrition E43 History of DVT (deep vein thrombosis) Z86.718 Pneumatosis coli K63.89 History of nontraumatic rupture of cerebral aneurysm Z86.79 Autonomic dysfunction G90.9 Decubitus ulcer of calf, unstageable L89.890 Cardiomyopathy I42.9 Tracheostomy status Z93.0 Nonverbal R47.01 Quadriplegia G82.50 Sammi rash of groin B37.89 Diarrhea R19.7
[2023-07-27 07:47] LABS: Hematocrit (blood only) 34.3 % (42.0-52.0); Hemoglobin 10.8 g/dl (14.0-18.0); Mean Corpuscular Hemoglobin 30.3 pg (25.0-34.0); Mean Corpuscular Hgb Conc 31.5 g/dL (32.0-36.0); Mean Corpuscular Volume 96.1 fL (80.0-100.0); Mean Platelet Volume 10.1 fL (9.4-12.4); Platelet Count 339 K/uL (130-400); RDW Coefficient of Variation 13.7 % (11.5-14.5); RDW Standard Deviation 48.7 fL (36.4-46.3); Red Blood Count 3.57 M/uL (4.70-6.10); White Blood Count 7.36 K/ul (4.8-10.8)
[2023-07-27 08:01] LABS: Anion Gap 9 (3-11); Blood Urea Nitrogen 17 mg/dl (6-23); Calcium 9.9 mg/dl (8.6-10.3); Carbon Dioxide 31 mmol/L (21-32); Chloride 100 mmol/L (98-107); Creatinine Clr Calc Pharmacy 157.8 ml/min; Est GFR (African American) > 150.0 ml/min; Est GFR (Non-African American) 148.4 ml/min; Glucose 98 mg/dl (70-99(Fasting)); Sodium 140 mmol/L (136-145)
--- NOTE | 2023-07-27 12:36 | Hospitalist Progress Note ---
Date of Service July 27, 2023 Assessment & Plan (1) Decubitus ulcer of sacral region, stage 4: Plan: worse in appearance today despite frequent turning/repositioning, dressing changes, nutrition via PEG, etc Surgery was consulted last admission - did not recommend surgical debridement in OR current wound care recs - To sacrum/ coccyx/buttocks area- Irrigate with NSS, a 35cc syringe and a blunt needle. Apply Aquacel Ag and secure with Optifoam. Change daily, or if soiled or drainage excedes 50% of dressing. Do not allow wet dressings to remain in place will contact wound care in the morning about my concerns; the wound appears to need debridement consider imaging to exclude osteomyelitis of coccyx (would obtain MRI) and deeper infection (2) Fever: Plan: patient has had fever spikes throughout this admission due to his autonomic storming/hyperactivity but also has had positive blood cultures, infected sacral decub, etc in the recent past. then had significant fever again on 07/23/23 (101.5). work-up obtained then -- * COVID/flu/RSV swab -- negative * cxr -- neg for infiltrates * blood cx's x 2 from 07/23 remain negative to date; all abx have been stopped * sacral decub -- see #1 above (3) Gram-positive bacteremia: Plan: Treated with pip-tazo through 07/19 to complete 10 day course for coag neg st aph/group C strep bacteremia during prior hospitalization. Vancomycin 10d course was scheduled to end 07/19 but has been continued due to fever on 07/23. Recent infectious issues: SSTI sacral decubitus ulcer, CT without osteomyelitis, pseudomonas on culture, treated with pip-tazo as above Group C strep bacteremia source thought wound/SSTI, abx as above CONS bacteremia - contaminant vs bacteremia, completing 10d vancomycin as above (grew from 07/08, 07/09 blood cultures) Corynebacterium bacteremia - "" Sputum colonized with pseudomonas, possible tracheitis with increased secretions 07/10, treated with pip-tazo see above in #1 re: recent fever appreciate ongoing ID support (4) Transaminitis: Plan: resolved (5) Severe protein-calorie malnutrition: Plan: BMI 18, diffuse sarcopenia / muscle wasting present continue tube feedings as previous with peptamen (6) History of DVT (deep vein thrombosis): Plan: Continue Eliquis BID (7) Pneumatosis coli: Plan: Evaluated by General surgery last admission since no surgical abdomen/peritonitis/symptoms no Rx recommended during that admission etiology of the CT findings was uncertain if fevers persist, etc would re-image the abdomen abdominal exam remains benign / soft (8) History of nontraumatic rupture of cerebral aneurysm: Plan: Patient is nonverbal at baseline with chronic contractures in all 4 extremities Acquired quad[address] head shows encephalomalacia and good shunt placement Ry suffered a ruptured brain aneurysm and SAH 08/2022 Had craniotomy and evacuation. skull fragment was reimplanted in November per family. 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. Has history of severe autonomic dysfunction / paroxysmal sympathetic hyperactivity / autonomic storm which is controlled on medications and has the potential to be confused with sepsis. Cont complex regimen of meds for this issue (dantrolene, scop patch, etc) (9) Autonomic dysfunction: Plan: Continue dantrolene and bromocriptine Continue gabapentin and baclofen for spasticity (10) Decubitus ulcer of calf, unstageable: Plan: Eschar present with no surrounding cellulitis Continue wound care as advised by wound care team (11) Cardiomyopathy: Plan: last echo 07/11/23 - low normal EF 50-55% compensated cont beta joon (12) Tracheostomy status: Plan: colonized with pseudomonas cont local trach care cxr today neg for infiltrates sputum via trach is stable and not copious O2 requirement unchanged (13) 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 after this admission Admission and Anticipated Discharge Date Admission Date: July 18, 2023 Subjective no new events per staff tolerating his tube feedings last stool 2/2 no major changes in his trach sputum production during the visit the nurses assisted me in examining his sacral decubitus ulcer Review of Systems Review of Systems: Unobtainable due to cognitive status and Unobtainable due to reduced consciousness Physical Exam Physical Exam: gen - chronically ill appearing, very thin, NAD, generalized muscle wasting - no change from prior exams eyes - nystagmus present, eye blinking present - when I call his name he does not look at me or track any of my actions L ear - ulceration nearly healed; no cellulitis head - deformity right side from prior craniotomy; occasional grimace mouth - MMM neck - no JVD; trach in place - clean heart - RRR, s1 s2, no murmur lungs - CTA b/l abd - soft NT ND BS+; PEG tube site where the tube meets the skin is clean; the tube itself appears discolored the entire length ext - trace edema, pulses 2+ b/l neuro - contractures all extremities skin - balanitis improved; sacral decub ulcer - appears worse; the central necrotic appearing skin is now gone in the central portion of the ulcer; there is palpable bone (coccyx); I am able to tunnel under the skin flap on the edges of ulcer; tracking is from about 12noon to 3pm, about 0.5cm; additional areas of minor tracking inferiorly; no malodor Results & Data Results & Data Vital Signs (Past 12 Hours) Vital Signs Temp Pulse Resp BP Pulse Ox O2 Del Method O2 Flow Rate 07/27/23 11:26 36.8 C 78 20 106/73 97 Room Air 07/27/23 08:10 36.8 C 79 18 99/64 L 95 Trach Collar 6 07/27/23 08:00 Trach Collar 4.5 07/27/23 04:29 37.7 C H 90 20 112/75 99 Room Air Laboratory Results Laboratory Results 07/27/23 07:32 WBC 7.36 RBC 3.57 L Hgb 10.8 L Hct 34.3 L MCV 96.1 MCH 30.3 MCHC 31.5 L RDW Std Deviation 48.7 H RDW Coeff of Dario 13.7 Plt Count 339 MPV 10.1 Sodium 140 Potassium 4.0 Chloride 100 Carbon Dioxide 31 Anion Gap 9 BUN 17 Creatinine 0.46 L Est Cr Clr Drug Dosing 157.8 Est GFR ( Amer) > 150.0 Est GFR (Non-Af Amer) 148.4 BUN/Creatinine Ratio 37.0 H Glucose 98 Calcium 9.9 PG Care Time/CCT Total # of Minutes Spent Total Time Spent with Patient: Total time spent is greater than 50% in coordination of care (as documented) at patient's floor/unit and/or counseling patient: Coding Level of Care Code 95340 SUB INP/OBS CARE 2/35MIN Diagnoses Decubitus ulcer of sacral region, stage 4 L89.154 Fever R50.9 Gram-positive bacteremia R78.81 Transaminitis R74.01 Severe protein-calorie malnutrition E43 History of DVT (deep vein thrombosis) Z86.718 Pneumatosis coli K63.89 History of nontraumatic rupture of cerebral aneurysm Z86.79 Autonomic dysfunction G90.9 Decubitus ulcer of calf, unstageable L89.890 Cardiomyopathy I42.9 Tracheostomy status Z93.0 Nonverbal R47.01 Quadriplegia G82.50 Sammi rash of groin B37.89 Diarrhea R19.7
[2023-07-28] MEDS: POLYETHYLENE (MIRALAX) 17 GM PACK ONE (12:40)
--- NOTE | 2023-07-28 14:31 | Hospitalist Progress Note ---
Date of Service July 28, 2023 Assessment & Plan (1) Decubitus ulcer of sacral region, stage 4: Plan: worse in appearance on yesterday's exam despite frequent turning/repositioning, dressing changes, nutrition via PEG, etc Surgery was consulted last admission - did not recommend surgical debridement in OR at that time But there has clearly been progression of his ulcer since that prior visit current wound care recs - To sacrum/ coccyx/buttocks area- Irrigate with NSS, a 35cc syringe and a blunt needle. Apply Aquacel Ag and secure with Optifoam. Change daily, or if soiled or drainage excedes 50% of dressing. Do not allow wet dressings to remain in place discussed his case directly with Sherie Jesus from wound care who saw patient today and agrees that surgical debridement is needed to that end gen surg consult placed, gen surg saw Mr Felice, and timing of surgical debridement is uncertain but hopefully sometime this week will need to hold Eliquis for the procedure will keep Eliquis on board until gen surg has firmer date for debridement appreciate gen surg assistance since coccyx is exposed there is a good chance he has osteomyelitis at this point could consider MRI of pelvis but defer for now ID has been following (2) Fever: Plan: patient has had fever spikes throughout this admission due to his autonomic storming/hyperactivity but also has had positive blood cultures, infected sacral decub, etc in the recent past. had significant fever again on 07/23/23 (101.5). Has had low-grade temps since 07/23 as well (low 100s). work-up obtained 07/23 - * COVID/flu/RSV swab -- negative * cxr -- neg for infiltrates * blood cx's x 2 from 07/23 remain negative to date; all abx have been stopped * sacral decub -- see #1 above (3) Gram-positive bacteremia: Plan: Recent infectious issues: SSTI sacral decubitus ulcer, CT without osteomyelitis, pseudomonas on culture, treated with pip-tazo x 10 days. Group C strep bacteremia - source thought 2nd to sacral wound - zosyn given. Coag neg staph bacteremia - contaminant vs bacteremia - completed 10+ day vancomycin course. Corynebacterium bacteremia - completed 10-day vancomycin course. Sputum colonized with pseudomonas, possible tracheitis with increased secretions 07/10, treated with pip-tazo. appreciate ongoing ID support (4) Transaminitis: Plan: resolved (5) Severe protein-calorie malnutrition: Plan: BMI 18, diffuse sarcopenia / muscle wasting present continue PEG tube feedings as previous with peptamen albumin was normal at 3.7 on 07/19/23 (6) History of DVT (deep vein thrombosis): Plan: Continue Eliquis BID (7) Pneumatosis coli: Plan: Evaluated by General surgery last admission since no surgical abdomen/peritonitis/symptoms no Rx recommended during that admission etiology of the CT findings was uncertain if fevers persist, etc would re-image the abdomen abdominal exam remains benign / soft (8) History of nontraumatic rupture of cerebral aneurysm: Plan: Patient is nonverbal at baseline with chronic contractures in all 4 extremities Acquired quadriple[address] head shows encephalomalacia and good shunt placement Ry suffered a ruptured brain aneurysm and SAH 08/2022 Had craniotomy and evacuation. skull fragment was reimplanted in November per family. Had a [facility]ER shunt placement at [facility]. Has history of severe autonomic dysfunction / paroxysmal sympathetic hyperactivity / autonomic storm which is controlled on medications and has the potential to be confused with sepsis. Cont complex regimen of meds for this issue (dantrolene, scop patch, etc) (9) Autonomic dysfunction: Plan: Continue dantrolene and bromocriptine Continue gabapentin and baclofen for spasticity (10) Decubitus ulcer of calf, unstageable: Plan: Eschar present with no surrounding cellulitis Continue wound care as advised by wound care team (11) Cardiomyopathy: Plan: last echo 07/11/23 - low normal EF 50-55% compensated cont beta joon (12) Tracheostomy status: Plan: colonized with pseudomonas cont local trach care cxr today neg for infiltrates sputum via trach is stable and not copious O2 requirement unchanged (13) 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 (14) Quadriplegia: Plan: 2nd to above (15) Sammi rash of groin: Plan: cont miconazole powder TID improved (16) Diarrhea: Plan: resolved previously had rectal tube - now removed c diff neg on 07/18/23 Plan updated pt's mother by phone yesterday evening we discussed his worsening sacral decubitus ulcer and the probable need for surgical debridement dispo - numerous referrals made by social work to various SNFs; he will not be returning to [facility] after this admission Admission and Anticipated Discharge Date Admission Date: July 18, 2023 Subjective per staff no events overnight I spoke directly with Sherie Nickerson from wound care about Mr Felice' worsening sacral decub ulcer she and her team did see Mr Viveros later in the day and advised surgery consult for debridement tele overnight wnl Review of Systems Review of Systems: Unobtainable due to cognitive status Physical Exam Physical Exam: gen - chronically ill appearing, very thin, NAD, generalized muscle wasting - no change from prior exams eyes - nystagmus present, eye blinking present - but no purposeful movements head - deformity right side from prior craniotomy; occasional grimace on face mouth - MMM neck - no JVD; trach in place - clean heart - RRR, s1 s2, no murmur lungs - CTA b/l abd - soft NT ND BS+; PEG tube site where the tube meets the skin is clean; the tube itself appears discolored the entire length ext - trace edema, pulses 2+ b/l neuro - contractures all extremities skin - balanitis improved; candidal rash groin/scrotum improve Results & Data Results & Data Vital Signs (Past 12 Hours) Vital Signs Temp Pulse Pulse Resp BP Pulse Ox O2 Del Method 07/28/23 11:36 37.2 C 86 16 111/72 99 Trach Collar 07/28/23 08:00 73 07/28/23 08:00 Trach Collar 07/28/23 07:31 36.9 C 83 16 109/73 100 Trach Collar 07/28/23 04:27 37.2 C 81 20 111/76 100 Trach Collar O2 Flow Rate 07/28/23 11:36 4 07/28/23 08:00 07/28/23 08:00 4 07/28/23 07:31 07/28/23 04:27 6 Laboratory Results Laboratory Results - last 48 hr 07/28/23 07/28/23 12:24 18:07 POC Glucose 92 128 H PG Care Time/CCT Total # of Minutes Spent Total Time Spent with Patient: Total time spent is greater than 50% in coordination of care (as documented) at patient's floor/unit and/or counseling patient: Coding Level of Care Code 58614 SUB INP/OBS CARE 1/25MIN Diagnoses Decubitus ulcer of sacral region, stage 4 L89.154 Fever R50.9 Gram-positive bacteremia R78.81 Transaminitis R74.01 Severe protein-calorie malnutrition E43 History of DVT (deep vein thrombosis) Z86.718 Pneumatosis coli K63.89 History of nontraumatic rupture of cerebral aneurysm Z86.79 Autonomic dysfunction G90.9 Decubitus ulcer of calf, unstageable L89.890 Cardiomyopathy I42.9 Tracheostomy status Z93.0 Nonverbal R47.01 Quadriplegia G82.50 Sammi rash of groin B37.89 Diarrhea R19.7
--- NOTE | 2023-07-28 14:46 | Surgery Consultation ---
<Statement entered by Angela Issa, - 07/29/23 21:04> This case was discussed with the surgical PA, I agreed with this plan. Date of Consultation July 28, 2023 Assessment & Plan (1) Decubitus ulcer of sacral region, stage 4: This is a 32yM with an unfortunate PMH including a ruptured brain aneurysm s/p evacuation in 2022, DVT on eliquis, PEG and Trach status, and stage 4 sacral decubitus ulcer- admitted to the hospital on 07/17. He was recently admitted from 07/08-07/17 with worsening sacral wound and concern for sepsis. He was treated for bacteremia likely 2/2 sacral wound with ID following. General surgery consulted at that time and local wound care and course of abx was recommended. Unfortunately after discharge his facility would not accept him back due concern for respiratory issues and he returned to our hospital for ongoing treatment and to work on other placement. Today our services have been consulted today for re- evaluation of the patient's sacral decubitus wound which apparently has been deteriorating of recent despite offloading, nutrition management, and daily local wound care. Patient has been off abx since 07/23. Yesterday labs show WBC 7, Hbg 10.8, Cr 0.4. Vital signs are stable. Patient is awake, on trach collar, non verbal. He has a + sacral ulcer, with area of necrosis from about 6 oclock to 3 oclock with some + undermining; somewhat fluctuant. does not appear in pain with palpation. log buyer recommending surgical evaluation given deterioration of wound over last several days. Discussed with medicine who would be okay with holding eliquis and bridging with hep gtt if needed. I will discuss with my attending regarding timing of debridement given being on blood thinners, but will likely consider surgical debridement in the OR vs bedside in the next couple of days. Will follow. History of Present Illness Attending Physician: Wilner Lloyd MD History of Present Illness This is a 32yM with an unfortunate PMH including a ruptured brain aneurysm s/p evacuation in 2022, DVT on eliquis, PEG and Trach status, and stage 4 sacral decubitus ulcer- admitted to the hospital on 07/17. He was recently admitted from 07/08-07/17 with worsening sacral wound and concern for sepsis. He was treated for bacteremia likely 2/2 sacral wound with ID following. General surgery consulted at that time and local wound care and course of abx was recommended. Unfortunately after discharge his facility would not accept him back due concern for respiratory issues and he returned to our hospital for ongoing treatment and to work on other placement. Today our services have been consulted today for re- evaluation of the patient's sacral decubitus wound which apparently has been deteriorating of recent despite offloading, nutrition management, and daily local wound care. Unfortunately due to the patient's medical problems he is non-verbal and unable to provide any subjective history. Majority of HPI has been obtained by chart review and discussions with current providers. The wound was evaluated at the bedside with the assistance of the nursing staff. Unclear how long wound has been present, but he did present to the hospital and was present since some time in 2022. Allergies Allergy/AdvReac Type Severity Reaction Status Date / Time No Known Allergies Allergy Unverified 07/08/23 15:52 Home Medications Medication Instructions Recorded Confirmed Type scopolamine base 1 mg over 3 days 1 patch transdermal Q3D 04/02/23 07/18/23 History transdermal patch acetaminophen 325 mg/10.15 mL oral 650 mg (20.3 mL) PEG Q6 #250 mL 04/17/23 07/18/23 Rx suspension bromocriptine 2.5 mg tablet 2.5 mg feeding tube Q6 #120 tabs 04/17/23 07/18/23 Rx bisacodyl 10 mg rectal suppository 10 mg IA .EVERY 24 HOURS PRN 05/04/23 07/18/23 History Constipation Proheal 30 ml feeding tube BID 07/08/23 07/18/23 History apixaban 5 mg tablet (Eliquis) 5 mg feeding tube BID 07/08/23 07/18/23 History ascorbic acid (vitamin C) 500 mg 500 mg PO DAILY 07/08/23 07/18/23 History tablet baclofen 20 mg tablet 20 mg feeding tube Q6 07/08/23 07/18/23 History collagenase clostridium histo. 250 1 applic topical .EVERY DAY SHIFT 07/08/23 07/18/23 History unit/gram topical ointment (Santyl) collagenase clostridium histo. 250 1 applic topical DIRECTED PRN 07/08/23 07/18/23 History unit/gram topical ointment (Santyl) soilage/dislodgement ferrous sulfate 300 mg (60 mg 325 mg feeding tube Q OTHER DAY 07/08/23 07/18/23 History iron)/5 mL oral liquid lactose-reduced food with fiber 1 ea feeding tube Q4 07/08/23 07/18/23 History 0.06 gram-1.5 kcal/mL oral liquid (Jevity 1.5 Lance) magnesium hydroxide 400 mg/5 mL 2,400 mg feeding tube DAILY PRN 07/08/23 07/18/23 History oral suspension (Milk of Magnesia) Constipation metoprolol tartrate 25 mg tablet 25 mg PEG Q12 07/08/23 07/18/23 History multivitamin 1 tab feeding tube QAM 07/08/23 07/18/23 History sodium phosphates 19 gram-7 118 ml IA .MORNING OF 4TH DAY PRN 07/08/23 07/18/23 History gram/118 mL enema (Fleet Enema) Constipation water 1 ea UD 07/08/23 07/18/23 History zinc sulfate 50 mg zinc (220 mg) 50 mg feeding tube DAILY 07/08/23 07/18/23 Hist ory tablet Magic Mix See Rx Instructions .Route .COMPLEX 07/18/23 07/18/23 History Saccharomyces boulardii 250 mg 250 mg feeding tube DAILY 07/18/23 07/18/23 History capsule dantrolene 100 mg capsule 100 mg feeding tube Q6H 07/18/23 07/18/23 History gabapentin 400 mg capsule 400 mg feeding tube Q4H 07/18/23 07/18/23 History Patient History Medical History History of DVT (deep vein thrombosis) Moderate protein-calorie malnutrition History of nontraumatic rupture of cerebral aneurysm History of traumatic brain injury Surgical History [employer] shunt Social History Smoking Status: Never smoker Tobacco Type: Cigarettes Second Hand Exposure: No; Do You Dip or Chew Tobacco: No; Hx Alcohol Use: No Hx Substance Use: No Preferred Language: [place] Communication Ability: Impaired Adhesive Primer Required: No Beliefs That Will Affect Care: None Current Living Situation: Senior Living Feels Safe at Home: Yes Assistive Devices: Other Review of Systems Review of Systems: Unobtainable due to cognitive status Physical Exam Physical Exam: awake, eyes open Respiratory: trach collar Gastrointestinal (Abdomen): Percussion/Palpation: abdomen soft Skin: + sacral ulcer, with area of necrosis fr om about 6 oclock to 3 oclock with some + undermining; somewhat fluctuant. does not appear in pain with palpation Results & Data Vital Signs (Past 12 Hours) Vital Signs Temp Pulse Pulse Resp BP Pulse Ox O2 Del Method 07/28/23 11:36 37.2 C 86 16 111/72 99 Trach Collar 07/28/23 08:00 73 07/28/23 08:00 Trach Collar 07/28/23 07:31 36.9 C 83 16 109/73 100 Trach Collar 07/28/23 04:27 37.2 C 81 20 111/76 100 Trach Collar O2 Flow Rate 07/28/23 11:36 4 07/28/23 08:00 07/28/23 08:00 4 07/28/23 07:31 07/28/23 04:27 6 Diagnostic Findings ABDOMEN AND PELVIS CT WITH IV CONTRAST CT DOSE: 828.9 mGy.cm HISTORY: Acute sepsis with elevated LFTs sacral decubitis ulcer, LFT elevation, sepsis TECHNIQUE: Multiaxial CT images of the abdomen and pelvis were performed following the IV administration of 94 cc of Optiray, A dose lowering technique was utilized adhering to the principles of ALARA. COMPARISON STUDY: 04/19/2023 FINDINGS: Motion degraded exam. Study is also limited secondary to upper cavity positioning. Trace left pleural effusion. Mild dependent bibasilar opacities with bronchial wall thickening and left basilar mucous plugging. The spleen, pancreas, adrenal glands and liver appear unremarkable. Contracted gallbladder. Unremarkable kidneys. Nonspecific circumferential urinary bladder wall thickening. There is a more focal area of wall thickening/increased enhancement involving the left posterolateral urinary bladder on image 349 measuring 2.2 cm. Unremarkable abdominal aorta. No bowel obstruction. Nonspecific circumferential wall thickening of the rectum. There is mild gaseous distention of the colon with moderate colonic fecal retention. Pneumatosis coli of the cecum, image 332. Noninflamed appendix. A gastrostomy tube is in place. Small amount of free pelvic fluid. Shunt catheter distal tip projects in the left inferior pelvis. 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 No acute fracture. Sacral decubitus ulcer measures up to approximately 3.6 cm transversely. There is associated subcutaneous edema without drainable fluid collection or adjacent osseous erosion. Additional subcutaneous edema within the left gluteal tissues. IMPRESSION: 1. Pneumatosis coli of the cecum of unknown clinical significance. No portal venous air identified. 2. No bowel obstruction or pneumoperitoneum. 3. Normal appendix. 4. Mild bibasilar densities favor atelectasis. Trace left pleural effusion with left basilar mucous plugging. 5. Nonspecific urinary bladder wall thickening, greatest within the left posterolateral distribution. Findings could be correlated with cystoscopy to exclude a small mucosal lesion. 6. Sacral decubitus ulcer with cellulitis. No abscess or CT evidence of osteomyelitis. 7. Additional findings as above. ACT 112: Negative or not required by law. The above report was generated using voice recognition software. It may contain grammatical, syntax or spelling errors. Electronically signed by: Corey Rodgers M.D. 07/08/2023 1:05 PM PG Care Time/CCT Total # of Minutes Spent Total Time Spent with Patient: Total time spent is greater than 50% in coordination of care (as documented) at patient's floor/unit and/or counseling patient: Coding Level of Care Code 64892 IN/OBS CONSULT LVL 3,45M Diagnoses Decubitus ulcer of sacral region, stage 4 L89.154
[2023-07-28] MEDS: ACETAMINOPHEN 1,000 MG/100 ML VIAL IV STA (22:22)
[2023-07-29] MEDS: MAGNESIUM HYDROXIDE SUSP 30 ML UDC PEG PRN (07:28)
--- NOTE | 2023-07-29 09:10 | Surgery Progress Note ---
<Statement entered by Angela Issa DO - 07/29/23 20:55> I have seen and examined this patient with the surgical PA. I agreed with this plan. Date of Service July 29, 2023 Assessment & Plan (1) Decubital ulcer: Plan: We are consulted for consideration of debridement of patient's deteriorating sacral decubitus ulcer Vitals stable, on trach collar, receiving tube feeds Sacral wound evaluated with the surgeon We will plan on surgical debridement in the OR sometime this week, timing TBD pending surgeon/OR schedule Will need eliquis to be on hold. okay for heparin bridge Will follow Admission and Anticipated Discharge Date Admission Date: July 18, 2023 Subjective Patient resting in bed. Non verbal and unable to obtain subjective history. Appears in no distress. Physical Exam Physical Exam: awake, eyes open, resting Gastrointestinal (Abdomen): Percussion/Palpation: abdomen soft + sacral ulcer, wi th area of necrosi s from about 6 ocl ock to 3 oclock wi th some + undermin ing; somewhat fluc tuant. does not ap pear in pain with palpation Results & Data Vital Signs (Past 12 Hours) Vital Signs Temp Pulse Pulse Resp BP Pulse Ox O2 Del Method 07/29/23 07:51 36.4 C L 82 18 105/70 98 Trach Collar 07/29/23 04:51 Trach Collar 07/29/23 04:30 36.6 C 73 16 112/76 100 Trach Collar 07/28/23 22:50 37 C 88 16 103/69 99 Trach Collar 07/28/23 22:00 91 H O2 Flow Rate 07/29/23 07:51 4 07/29/23 04:51 4 07/29/23 04:30 6 07/28/23 22:50 6 07/28/23 22:00 PG Care Time/CCT Total # of Minutes Spent Total Time Spent with Patient: Total time spent is greater than 50% in coordination of care (as documented) at patient's floor/unit and/or counseling patient: Coding Level of Care Code 18031 SUB INP/OBS CARE 1/25MIN Diagnoses Pressure injury of sacral region, stage 4 L89.154 Pressure injury location: sacral region Pressure injury stage: stage 4 (1) Decubital ulcer Pressure injury location: sacral region Pressure injury stage: stage 4 Qualified Code(s): L89.154 - Pressure ulcer of sacral region, stage 4
--- NOTE | 2023-07-29 16:51 | Hospitalist Progress Note ---
Date of Service July 29, 2023 Assessment & Plan (1) Decubitus ulcer of sacral region, stage 4: Plan: worse in appearance compared to a week ago despite frequent turning/repositioning, dressing changes, nutrition via PEG, etc Surgery consulted - discussed with resident - plan for debridement later this week -apixaban held since coccyx is exposed presume he has osteomyelitis at this point consider MRI pelvis depending on surgical findings ID has been following (2) Fever: Plan: patient has had fever spikes throughout this admission due to his autonomic storming/hyperactivity but also has had positive blood cultures, infected sacral decub, etc in the recent past. had significant fever again on 07/23/23 (101.5). Has had intermittent low-grade temps ongoing over past months since he started being followed at [facility] work-up obtained 07/23 - * COVID/flu/RSV swab -- negative * cxr -- neg for infiltrates * blood cx's x 2 from 07/23 remain negative to date; all abx have been stopped * sacral decub -- see #1 above (3) Gram-positive bacteremia: Plan: Recent infectious issues: SSTI sacral decubitus ulcer, CT without osteomyelitis, pseudomonas on culture, treated with pip-tazo x 10 days. Group C strep bacteremia - source thought 2nd to sacral wound - zosyn given. Coag neg staph bacteremia - contaminant vs bacteremia - completed 10+ day vancomycin course. Corynebacterium bacteremia - completed 10-day vancomycin course. Sputum colonized with pseudomonas, possible tracheitis with increased secretions 07/10, treated with pip-tazo. appreciate ongoing ID support (4) Transaminitis: Plan: resolved (5) Severe protein-calorie malnutrition: Plan: BMI 18, diffuse sarcopenia / muscle wasting present continue PEG tube feedings as previous with peptamen albumin was normal at 3.7 on 07/19/23 (6) History of DVT (deep vein thrombosis): Plan: / October 2022 -has been on manager terminal apixaban, held perioperatively -does not require full anticoagulation bridging -can use prophylaxis dose enoxaparin if surgery >48h from now -should be safe to stop vs reduce apixaban to prophylaxis dose care home - will discuss with his family (7) Pneumatosis coli: Plan: Evaluated by General surgery last admission since no surgical abdomen/peritonitis/symptoms no Rx recommended during that admission etiology of the CT findings was uncertain if fevers persist, etc would re-image the abdomen abdominal exam remains benign / soft, tolerating feedings well (8) History of nontraumatic rupture of cerebral aneurysm: Plan: Patient is nonverbal at baseline with chronic contractures in all 4 extremities Acquired quadriplegia [address] head shows encephalomalacia and good shunt placement Ry suffered a ruptured brain aneurysm and SAH 08/2022 Had craniotomy and evacuation. skull fragment was reimplanted in November per family. Had a APPLIANCE COUNSELOR shunt placement at [facility]. Has history of severe autonomic dysfunction / paroxysmal sympathetic hyperactivity / autonomic storm which is controlled on medications and has the potential to be confused with sepsis. Cont complex regimen of meds for this issue (dantrolene, scop patch, etc) (9) Autonomic dysfunction: Plan: Continue dantrolene and bromocriptine Continue gabapentin and baclofen for spasticity (10) Decubitus ulcer of calf, unstageable: Plan: Eschar present with no surrounding cellulitis Continue wound care as advised by wound care team (11) Cardiomyopathy: Plan: last echo 07/11/23 - low normal EF 50-55% compensated cont beta joon (12) Tracheostomy status: Plan: colonized with pseudomonas cont local trach care cxr 2/ neg for infiltrates sputum via trach is stable and not copious O2 requirement unchanged (13) 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 (14) Quadriplegia: Plan: 2nd to above (15) Sammi rash of groin: Plan: cont miconazole powder TID improved (16) Diarrhea: Plan: resolved previously had rectal tube - now removed c diff neg on 07/18/23 Plan updated pt's mother by phone 2/4 we discussed his worsening sacral decubitus ulcer and the probable need for surgical debridement dispo - numerous referrals made by social work to various SNFs; he will not be returning to [facility] after this admission Admission and Anticipated Discharge Date Admission Date: July 18, 2023 Subjective nonverbal. opened eyes briefly. Physical Exam Physical Exam: PHYSICAL EXAMINATION Last 24h vital signs reviewed, see documentation in flowsheet General: no distress or agitation HEENT: opened eyes briefly, trach anterior neck Lungs: Normal respiratory effort. Clear to auscultation bilaterally. No RRW Heart: Regular rate and rhythm, no murmurs. No JVD Abdomen: Soft, nontender, nondistended. Bowel sounds present. G-tube site mid abdomen. Sacral pressure - reviewed WON photos from 07/28, has worsened compared to week prior when I last saw 07/22 Extremities: Warm, dry, well-perfused. No extremity edema. diffuse sarcopenia present he has flexion contractures of both wrists, right elbow, bilateral lower extremities mildly flexed, high tone throughout unchanged Neuro: opened eyes, baseline exam: opens eyes and tracks visually but is nonverbal, sometimes will move R arm or lift head, does not follow commands, bedbound Psych: unable to assess, no agitation Results & Data Results & Data Vital Signs (Past 12 Hours) Vital Signs Temp Pulse Pulse Resp BP Pulse Ox O2 Del Method 07/29/23 15:47 87 07/29/23 15:23 37.8 C H 94 H 18 111/74 99 Trach Collar 07/29/23 11:33 37.3 C 89 16 106/70 99 Trach Collar 07/29/23 10:22 87 07/29/23 10:22 Trach Collar 07/29/23 07:51 36.4 C L 82 18 105/70 98 Trach Collar 07/29/23 04:51 Trach Collar O2 Flow Rate 07/29/23 15:47 07/29/23 15:23 6 07/29/23 11:33 6 07/29/23 10:22 07/29/23 10:22 4 07/29/23 07:51 4 07/29/23 04:51 4 PG Care Time/CCT Total # of Minutes Spent Total Time Spent with Patient: Total time spent is greater than 50% in coordination of care (as documented) at patient's floor/unit and/or counseling patient: Coding Level of Care Code 65727 SUB INP/OBS CARE 2/35MIN Diagnoses Decubitus ulcer of sacral region, stage 4 L89.154 Fever R50.9 Gram-positive bacteremia R78.81 Transaminitis R74.01 Severe protein-calorie malnutrition E43 History of DVT (deep vein thrombosis) Z86.718 Pneumatosis coli K63.89 History of nontraumatic rupture of cerebral aneurysm Z86.79 Autonomic dysfunction G90.9 Decubitus ulcer of calf, unstageable L89.890 Cardiomyopathy I42.9 Tracheostomy status Z93.0 Nonverbal R47.01 Quadriplegia G82.50 Sammi rash of groin B37.89 Diarrhea R19.7
[2023-07-30 06:28] LABS: Basophils # (auto) 0.03 K/uL (0.00-0.20); Basophils % (auto) 0.4 %; Eosinophils # (auto) 0.21 K/uL (0.00-0.50); Eosinophils % (auto) 2.5 %; Hematocrit (blood only) 28.8 % (42.0-52.0); Hemoglobin 9.4 g/dl (14.0-18.0); Immature Granulocytes # (auto) 0.05 K/uL (0.01-0.20); Immature Granulocytes % (auto) 0.6 %; Lymphocytes # (auto) 1.95 K/uL (1.20-3.40); Lymphocytes % (auto) 23.6 %; Mean Corpuscular Hemoglobin 30.9 pg (25.0-34.0); Mean Corpuscular Hgb Conc 32.6 g/dL (32.0-36.0); Mean Corpuscular Volume 94.7 fL (80.0-100.0); Mean Platelet Volume 10.3 fL (9.4-12.4); Monocytes # (auto) 0.76 K/uL (0.11-0.59); Monocytes % (auto) 9.2 %; Neutrophils # (auto) 5.25 K/uL (1.40-6.50); Neutrophils % (auto) 63.7 %; Platelet Count 339 K/uL (130-400); RDW Coefficient of Variation 13.5 % (11.5-14.5); RDW Standard Deviation 46.4 fL (36.4-46.3); Red Blood Count 3.04 M/uL (4.70-6.10); White Blood Count 8.25 K/ul (4.8-10.8)
[2023-07-30 06:48] LABS: Anion Gap 8 (3-11); BUN Creatinine Ratio 43.5 (10-20); Blood Urea Nitrogen 20 mg/dl (6-23); Calcium 9.6 mg/dl (8.6-10.3); Carbon Dioxide 33 mmol/L (21-32); Chloride 99 mmol/L (98-107); Creatinine Clr Calc Pharmacy 165.7 ml/min; Est GFR (African American) > 150.0 ml/min; Est GFR (Non-African American) 148.4 ml/min; Glucose 94 mg/dl (70-99(Fasting)); Sodium 140 mmol/L (136-145)
[2023-07-30] MEDS: POLYETHYLENE (MIRALAX) 17 GM PACK PEG SCH (09:58)
--- NOTE | 2023-07-30 13:56 | Communication Note ---
<Statement entered by Angela Issa, DO - 07/30/23 14:31> This was discussed and planned with the surgical PA Date of Service: July 30, 2023 The patient and his sacral wound was evaluated both on 07/28 and 07/29. Agree it requires debridement. We would like to perform this in the OR. Eliquis has been on hold, last dose was given on 7:24 on 07/29. Please continue to hold Eliquis. We will tentatively add the patient onto the schedule for I&D of sacral decubitus ulcer tomorrow (07/31) in the OR. Dr. Issa is planning on calling the patient's Mother to obtain consent.
--- NOTE | 2023-07-30 14:50 | Hospitalist Progress Note ---
Date of Service July 30, 2023 Assessment & Plan (1) Decubitus ulcer of sacral region, stage 4: Plan: worse in appearance compared to a week ago despite frequent turning/repositioning, dressing changes, nutrition via PEG, etc Surgery consulted - discussed with resident 07/30 - plan for debridement tomorrow am -apixaban held since coccyx is exposed presume he has osteomyelitis at this point consider MRI pelvis depending on surgical findings ID has been following PRN (2) Fever: Plan: patient has had fever spikes throughout this admission due to his autonomic storming/hyperactivity but also has had positive blood cultures, infected sacral decub, etc in the recent past. had significant fever again on 07/23/23 (101.5). Has had intermittent low-grade temps ongoing over past months since he started being followed at [facility] work-up obtained 07/23 - * COVID/flu/RSV swab -- negative * cxr -- neg for infiltrates * blood cx's x 2 from 07/23 remain negative to date; all abx have been stopped * sacral decub -- see #1 above afebrile last 24h (3) Gram-positive bacteremia: Plan: Recent infectious issues: SSTI sacral decubitus ulcer, CT without osteomyelitis, pseudomonas on culture, treated with pip-tazo x 10 days. Group C strep bacteremia - source thought 2nd to sacral wound - zosyn given. Coag neg staph bacteremia - contaminant vs bacteremia - completed 10+ day vancomycin course. Corynebacterium bacteremia - completed 10-day vancomycin course. Sputum colonized with pseudomonas, possible tracheitis with increased secretions 07/10, treated with pip-tazo. Not currently on antibiotics (4) Transaminitis: Plan: resolved (5) Severe protein-calorie malnutrition: Plan: BMI 18, diffuse sarcopenia / muscle wasting present continue PEG tube feedings as previous with peptamen albumin was normal at 3.7 on 07/19/23, weight stable around 50 kg (6) History of DVT (deep vein thrombosis): Plan: / October 2022 -has been on supervisor intermediates apixaban, held perioperatively -does not require full anticoagulation bridging -should be safe to stop vs reduce apixaban to prophylaxis dose usp - will discuss with his family (7) Pneumatosis coli: Plan: Evaluated by General surgery last admission since no surgical abdomen/peritonitis/symptoms no Rx recommended during that admission etiology of the CT findings was uncertain abdominal exam remains benign / soft, tolerating feedings well (8) History of nontraumatic rupture of cerebral aneurysm: Plan: Patient is nonverbal at baseline with chronic contractures in all 4 extremities Acquired quadriple[address] head shows encephalomalacia and good shunt placement Ry suffered a ruptured brain aneurysm and SAH 08/2022 Had craniotomy and evacuation. skull fragment was reimplanted in November per family. 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 Has history of severe autonomic dysfunction / paroxysmal sympathetic hyperactivity / autonomic storm which is controlled on medications and has the potential to be confused with sepsis. Cont complex regimen of meds for this issue (dantrolene, bromocriptine, scop patch, etc) (9) Autonomic dysfunction: Plan: Continue dantrolene and bromocriptine Continue gabapentin and baclofen for spasticity (10) Decubitus ulcer of calf, unstageable: Plan: Eschar present with no surrounding cellulitis Continue wound care as advised by wound care team (11) Cardiomyopathy: Plan: last echo 07/11/23 - low normal EF 50-55% compensated cont beta joon (12) Tracheostomy status: Plan: colonized with pseudomonas cont local trach care cxr / neg for infiltrates sputum via trach is stable and not copious O2 requirement unchanged (13) Quadriplegia: Plan: 2nd to above (14) Sammi rash of groin: Plan: cont miconazole powder TID improved (15) Diarrhea: Plan: resolved previously had rectal tube - now removed resumed miralax at reduced frequency c diff neg on 07/18/23 Plan reviewed routine labs 07/30 - stable anemia, Hgb 9.4, no leukocytosis, BMP unremarkable updated pt's mother by phone 07/27, 07/30 discussed anticipated surgery his aunt in room 07/28 dispo - numerous referrals made by social work to various SNFs; he will not be returning to [facility] after this admission Admission and Anticipated Discharge Date Admission Date: July 18, 2023 Subjective nonverbal. no events. currently has eyes closed. Physical Exam 2 Physical Exam: PHYSICAL EXAMINATION Last 24h vital signs reviewed, see documentation in flowsheet General: no distress or agitation HEENT: eyes closed, trach site cdi Lungs: Normal respiratory effort. Clear to auscultation bilaterally. No RRW Heart: Regular rate and rhythm, no murmurs. No JVD Abdomen: Soft, nontender, nondistended. Bowel sounds present. G-tube site mid abdomen. Sacral pressure - reviewed WON photos from 07/28, has worsened compared to week prior when I last saw 07/22 Extremities: Warm, dry, well-perfused. No extremity edema. diffuse sarcopenia present he has flexion contractures of both wrists, right elbow, bilateral lower extremities mildly flexed, high tone throughout unchanged Neuro: eyes closed currently appears to be sleeping, diandra / dysconjugate/roving. Psych: unable to assess, no agitation Results & Data Results & Data Vital Signs (Past 12 Hours) Vital Signs Temp Pulse Pulse Pulse Resp BP BP 07/30/23 11:28 37.0 C 83 15 101/68 07/30/23 07:45 36.8 C 97 H 20 109/71 07/30/23 07:23 82 07/30/23 04:54 36.6 C 78 20 108/72 Pulse Ox O2 Del Method O2 Flow Rate 07/30/23 11:28 99 Trach Collar 4 07/30/23 07:45 99 Trach Collar 4 07/30/23 07:23 07/30/23 04:54 98 Room Air Laboratory Results 07/30/23 05:50 07/30/23 05:50 PG Care Time/CCT Total # of Minutes Spent Total Time Spent with Patient: Total time spent is greater than 50% in coordination of care (as documented) at patient's floor/unit and/or counseling patient: Coding Level of Care Code 13929 SUB INP/OBS CARE 2/35MIN Diagnoses Decubitus ulcer of sacral region, stage 4 L89.154 Fever R50.9 Gram-positive bacteremia R78.81 Transaminitis R74.01 Severe protein-calorie malnutrition E43 History of DVT (deep vein thrombosis) Z86.718 Pneumatosis coli K63.89 History of nontraumatic rupture of cerebral aneurysm Z86.79 Autonomic dysfunction G90.9 Decubitus ulcer of calf, unstageable L89.890 Cardiomyopathy I42.9 Tracheostomy status Z93.0 Quadriplegia G82.50 Sammi rash of groin B37.89 Diarrhea R19.7
--- NOTE | 2023-07-31 06:45 | Surgery Progress Note ---
Date of Service July 31, 2023 Assessment & Plan (1) Sacral decubitus ulcer: Plan: Will better specify after wound base is clean. I have spoken to Ry's mother both yesterday evening t discuss this wound and plans as well as this am to obtain consent Ry will be taken to the OR today for debridement of the sacral wound. Admission and Anticipated Discharge Date Admission Date: July 18, 2023 Subjective Patient condition unchanged. Verbally unresponsive due to brain injury. Physical Exam Constitutional: not diaphoretic Respiratory: normal respiratory effort; no respiratory distress, no labored breathing and does not use accessory muscles Skin: Examination from yesterday Large sacral decubitus ulceration down to muscle Necrotic tissue around outside of wound, slough at wound bed Results & Data Vital Signs (Past 12 Hours) Vital Signs Temp Pulse Pulse Resp BP Pulse Ox O2 Del Method 07/31/23 05:16 Trach Collar 07/31/23 03:18 36.8 C 92 H 20 106/78 99 Room Air 07/31/23 00:31 37.0 C 94 H 20 109/74 95 Trach Collar 07/30/23 22:00 96 H 07/30/23 20:10 37.8 C H 99 H 20 99/62 L 95 Trach Collar O2 Flow Rate 07/31/23 05:16 4 07/31/23 03:18 07/31/23 00:31 4 07/30/23 22:00 07/30/23 20:10 4 PG Care Time/CCT Total # of Minutes Spent Total Time Spent with Patient: Total time spent is greater than 50% in coordination of care (as documented) at patient's floor/unit and/or counseling patient: Coding [place] [address] SUB INP/OBS CARE 1/25MIN Patient Type Established History Problem Focused Exam Problem Focused Medical Decision Making Straight Forward Diagnoses Pressure injury of skin of sacral region, unspecified injury stage L89.159 Pressure injury stage: unspecified pressure injury stage (1) Sacral decubitus ulcer Pressure injury stage: unspecified pressure injury stage Qualified Code(s): L89.159 - Pressure ulcer of sacral region, unspecified stage
--- NOTE | 2023-07-31 07:47 | Anesthesiology Consultation ---
Date of Service July 31, 2023 Assessment & Plan (1) Encounter for pre-operative examination: Chart Review Chart Review: Acceptable Risk for Surgery and Patient NOT seen in Pre Admission Testing Consults Requested none History Surgery Operation Date: 07/31/23 07:00 Proposed Procedures p Incision and Debridement of Sacral Decubitus Ulcer - Angela Issa DO Height/Weight Height: 5 ft 6 in Weight: 50.8 kg Allergies Allergy/AdvReac Type Severity Reaction Status Date / Time No Known Allergies Allergy Unverified 07/08/23 15:52 Medications Home Medications Medication Instructions Recorded Confirmed Last Taken scopolamine base 1 mg over 3 days 1 patch transdermal Q3D 04/02/23 07/18/23 07/08/23 08:00 transdermal patch acetaminophen 325 mg/10.15 mL oral 650 mg (20.3 mL) PEG Q6 #250 mL 04/17/23 07/18/23 07/08/23 06:00 suspension bromocriptine 2.5 mg tablet 2.5 mg feeding tube Q6 #120 tabs 04/17/23 07/18/23 07/08/23 06:00 bisacodyl 10 mg rectal suppository 10 mg TX .EVERY 24 HOURS PRN 05/04/23 07/18/23 06/28/23 Constipation Proheal 30 ml feeding tube BID 07/08/23 07/18/23 07/08/23 08:00 apixaban 5 mg tablet (Eliquis) 5 mg feeding tube BID 07/08/23 07/18/23 07/08/23 08:00 ascorbic acid (vitamin C) 500 mg 500 mg PO DAILY 07/08/23 07/18/23 07/08/23 09:00 tablet baclofen 20 mg tablet 20 mg feeding tube Q6 07/08/23 07/18/23 07/08/23 08:00 collagenase clostridium histo. 250 1 applic topical .EVERY DAY SHIFT 07/08/23 07/18/23 07/07/23 unit/gram topical ointment (Santyl) collagenase clostridium histo. 250 1 applic topical DIRECTED PRN 07/08/23 07/18/23 07/07/23 unit/gram topical ointment (Santyl) soilage/dislodgement ferrous sulfate 300 mg (60 mg 325 mg feeding tube Q OTHER DAY 07/08/23 07/18/2307/08/24 09:00 iron)/5 mL oral liquid lactose-reduced food with fiber 1 ea feeding tube Q4 07/08/23 07/18/23 07/08/23 08:00 0.06 gram-1.5 kcal/mL oral liquid (Jevity 1.5 Lance) magnesium hydroxide 400 mg/5 mL 2,400 mg feeding tube DAILY PRN 07/08/23 07/18/23 06/28/23 oral suspension (Milk of Magnesia) Constipation metoprolol tartrate 25 mg tablet 25 mg PEG Q12 07/08/23 07/18/23 07/08/23 08:00 multivitamin 1 tab feeding tube QAM 07/08/23 07/18/23 07/08/23 09:00 sodium phosphates 19 gram-7 118 ml TX .MORNING OF 4TH DAY PRN 07/08/23 07/18/23 Unknown gram/118 mL enema (Fleet Enema) Constipation water 1 ea UD 07/08/23 07/18/23 07/08/23 08:00 zinc sulfate 50 mg zinc (220 mg) 50 mg feeding tube DAILY 07/08/23 07/18/23 07/08/23 09:00 tablet Magic Mix See Rx Instructions .Route .COMPLEX 07/18/23 07/18/23 Unknown Saccharomyces boulardii 250 mg 250 mg feeding tube DAILY 07/18/23 07/18/23 Unknown capsule dantrolene 100 mg capsule 100 mg feeding tube Q6H 07/18/23 07/18/23 Unknown gabapentin 400 mg capsule 400 mg feeding tube Q4H 07/18/23 07/18/23 Unknown Active Medications Generic Name Dose Route Start Last Admin Trade Name Freq PRN Reason Stop Dose Admin Acetaminophen 650 mg 07/20/23 18:00 07/31/23 06:23 Acetaminophen Susp 325 Mg/10.15 Ml Udc PEG 08/19/23 17:59 Not Given Q6 TAYLOR Apixaban 5 mg 07/18/23 21:00 07/29/23 07:24 Apixaban 5 Mg Tablet PO 08/17/23 20:59 5 mg BID TAYLOR Administration Ascorbic Acid 500 mg 07/19/23 09:00 07/30/23 09:57 Ascorbic Acid 500 Mg Tab PEG 08/18/23 08:59 500 mg DAILY TAYLOR Administration Baclofen 20 mg 07/20/23 15:15 07/31/23 03:42 Baclofen 20 Mg Tab PEG 08/19/23 15:14 Not Given Q6H TAYLOR Bromocriptine Mesylate 2.5 mg 07/18/23 18:00 07/31/23 06:24 Bromocriptine Mesylate 2.5 Mg Tab PO 08/17/23 17:59 Not Given Q6 TAYLOR Dantrolene Sodium 100 mg 07/18/23 18:00 07/31/23 06:24 Dantrolene Sodium 25 Mg Cap PEG 08/17/23 17:59 Not Given Q6 TAYLOR Enteral Nutritional Formula 0 ml 07/18/23 17:00 07/30/23 22:19 Peptamen 1.5 Lance 1,000 Ml Bag GT 08/17/23 16:59 250 ml QID TAYLOR Administration Protocol Ferrous Sulfate 325 mg 07/18/23 15:00 07/30/23 16:45 Ferrous Sulfate 325 Mg/7.4 Ml Udp PEG 08/17/23 14:59 325 mg Q48H TAYLOR Administration Gabapentin 400 mg 07/18/23 18:00 07/31/23 06:24 Gabapentin 250 Mg/5 Ml 470 Ml Btl GT 08/17/23 17:59 Not Given Q6 TAYLOR Magnesium Hydroxide 30 ml 07/18/23 13:14 07/29/23 07:28 Magnesium Hydroxide Susp 30 Ml Udc PEG 08/17/23 13:13 30 ml DAILY PRN Administration Constipation Melatonin 3 mg 07/18/23 21:00 07/30/23 22:19 Melatonin 3 Mg Tab PO 08/17/23 20:59 3 mg HS TAYLOR Administration Metoprolol Tartrate 25 mg 07/18/23 21:00 07/30/23 22:20 Metoprolol Tartrate 25 Mg Tab PEG 08/17/23 20:59 Not Given Q12 TAYLOR Miconazole Nitrate 1 appln 07/23/23 15:40 07/30/23 22:20 Miconazole Nitrate Powder 85 Gm EXT 08/22/23 15:39 1 appln TID TAYLOR Administration Miscellaneous 1 each 07/18/23 15:00 07/30/23 16:45 Remove Transderm-Scop Patch N/A 08/17/23 14:59 1 each Q72H TAYLOR Administration Miscellaneous 1 each 07/18/23 16:00 07/30/23 23:40 Check Scopolamine Patch Placement N/A 08/17/23 15:59 1 each QS TAYLOR Administration Multivitamins 1 tab 07/19/23 09:00 07/30/23 09:58 Multivitamin Tab PO 08/18/23 08:59 1 tab QAM TAYLOR Administration Nutritional Formula 30 ml 07/19/23 09:00 07/30/23 09:58 Prosource No Carb 30 Ml/Pkt GT 08/18/23 08:59 30 ml DAILY TAYLOR Administration Polyethylene Glycol 17 gm 07/18/23 21:00 07/20/23 09:07 Polyethylene (Miralax) 17 Gm Pack PEG 08/17/23 20:59 Not Given BID TAYLOR Polyethylene Glycol 17 gm 07/30/23 09:00 07/30/23 09:58 Polyethylene (Miralax) 17 Gm Pack PEG 08/29/23 08:59 17 gm DAILY TAYLOR Administration Scopolamine 1 mg 07/18/23 15:00 07/30/23 16:44 Scopolamine 1 Mg Tdsy TD 08/17/23 14:59 1 mg Q3D TAYLOR Administration Sterile Water 100 ml 07/18/23 17:00 07/31/23 06:23 Tube Feeding Water Flush GT 08/17/23 16:59 Not Given Q4H TAYLOR Zinc Sulfate 220 mg 07/19/23 09:00 07/30/23 09:58 Zinc Sulfate 220 Mg Capsule PO 08/18/23 08:59 220 mg DAILY TAYLOR Administration Past Medical History Medical History (Updated 07/31/23 @ 07:47 by Souleymane Starr DO) Sacral decubitus ulcer Quadriplegia Nonverbal Autonomic dysfunction Cardiomyopathy History of DVT (deep vein thrombosis) Moderate protein-calorie malnutrition History of nontraumatic rupture of cerebral aneurysm History of traumatic brain injury Past Surgical History Surgical History (Updated 07/31/23 @ 07:47 by Souleymane Starr DO) Tracheostomy status 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 Social History Smoking Status: Never smoker Do You Dip or Chew Tobacco: No Hx Alcohol Use: No Hx Substance Use: No Physical Exam Vital Signs Last Vital Signs Temp 98.2 F 07/31/23 03:18 Pulse 92 H 07/31/23 03:18 Resp 20 07/31/23 03:18 BP 106/78 07/31/23 03:18 Pulse Ox 99 07/31/23 03:18 O2 Del Method Trach Collar 07/31/23 05:16 O2 Flow Rate 4 07/31/23 05:16 FiO2 28 07/18/23 13:15 Testing Laboratory Results 07/30/23 05:50 07/30/23 05:50 PT 11.5 Seconds (9.0-12.0) 07/19/23 04:07 INR 1.1 (0.9-1.1) 07/19/23 04:07 Urine Color Yellow 07/19/23 04:15 Urine Appearance Clear (Clear) 07/19/23 04:15 Urine pH 7.0 (4.5-7.5) 07/19/23 04:15 Ur Specific [place] 1.020 (1.000-1.030) 07/19/23 04:15 Urine Protein Negative (Negative) 07/19/23 04:15 Urine Glucose (UA) Negative (Negative) 07/19/23 04:15 Urine Ketones Negative (Negative) 07/19/23 04:15 Urine Nitrite Negative (Negative) 07/19/23 04:15 Ur Leukocyte Esterase Negative (Negative) 07/19/23 04:15 07/18/23 14:35 Aerobic Blood Culture - Final Blood Coag neg staph not lugdunensis Anaerobic Blood Culture - Final 07/23/23 08:36 Aerobic Blood Culture - Final Blood No growth in Aerobic bottle after 5 days. Anaerobic Blood Culture - Final No growth in Anaerobic bottle after 5 days. 07/23/23 08:29 Aerobic Blood Culture - Final Blood No growth in Aerobic bottle after 5 days. Anaerobic Blood Culture - Final No growth in Anaerobic bottle after 5 days. 07/18/23 14:35 Aerobic Blood Culture - Final Blood No growth in Aerobic bottle after 5 days. Anaerobic Blood Culture - Final Electrocardiogram Date: 07/17/23 Findings: + NSR @ Chest X-Ray Date: 07/23/23 Findings: + NAD Echocardiogram Date: 07/11/23 EF: 50-55 LV Function: normal
--- NOTE | 2023-07-31 11:03 | Communication Note ---
Date of Service: July 31, 2023 Tachycardic this am - this is related to his autonomic hyperreactivity - was made strict NPO so overnight doses of bromocriptene and dantrolene were held. Ordered these medications and metoprolol to be given now. If npo in future would avoid holding these meds.
[2023-07-31] MEDS ORDERED: fentaNYL citrate PF 100 MCG/2 ML VIAL IV PRN (12:33)
[2023-07-31] MEDS ORDERED: LABETALOL HCL IV 5 MG/ML 20ML IV PRN (12:33)
[2023-07-31] MEDS ORDERED: NALOXONE HCL 0.4 MG/1 ML VIAL/CARP IV PRN (12:33)
[2023-07-31] MEDS ORDERED: FLUMAZENIL 0.1 MG/1 ML 10 ML VIAL IV PRN (12:33)
[2023-07-31] MEDS ORDERED: PROMETHAZINE HCL 12.5 MG in SODIUM CHLORIDE 0.9% 50 ML IV PRN (12:33)
[2023-07-31] MEDS ORDERED: ATROPINE SULFATE 0.1 MG/ML 10ML SYR IV PRN (12:33)
[2023-07-31] MEDS ORDERED: ePHEDrine sulfate 50 MG/ML AMP IV PRN (12:33)
[2023-07-31] MEDS ORDERED: ONDANSETRON INJ 2 MG/ML 2 ML VIAL IV PRN (12:33)
[2023-07-31] MEDS ORDERED: PHENYLEPHRINE 100MCG/ML 10ML SYR IV ONE ×2 (12:52→13:59)
[2023-07-31] MEDS ORDERED: PROPOFOL IV EMULSION 10 MG/ML 20 ML VIAL IV ONE (12:52)
--- NOTE | 2023-07-31 13:42 | Operative Report ---
PG Post Operative Report Pre & Post Diagnosis Operation Date: 07/31/23 07:00 Pre-Op Diagnosis: Sacral decubitus ulcer Post-Op Diagnosis: Sacral decubitus ulcer I identified the patient and participated in the time-out.: Yes Procedure Operation Date: 07/31/23 07:00 Actual Procedures p Incision and Debridement of Sacral Decubitus Ulcer(Not Applicable) - Angela Issa DO Surgeon Angela Issa DO Editor News No surgical scrub technician Estimated Blood Loss 3 Findings See Below sacral wound 6cm Specimens none Anesthesia Type RN Sedation Indications devitalized tissue Description of Procedure The patient was brought back to the operating room and placed on the operating room table in left lateral decubitus position using berrios bag and rolled towel support. SCDs applied to b/l LE. Connected to cardiac, oxygen monitoring supplemental O2 administered and conscious sedation. Sacral area prepped and draped in typical sterile fashion using Betadine prep, timeout conducted. Devitalized skin was removed from the left inferior aspect of the wound. Sharp debridement with Metzenbaum scissors and curette. Heavy slough in undermined superior aspect of the wound was excised and sent for culture. Tissue debrided was devitalized skin, slough from the base of the wound. The wound extends to the most inferior tip of the coccyx at one small area. There is hypergranulation tissue just superior to this area that bled. Bleeding controlled with cautery and pressure. The wound was copiously and gently irrigated with Saline infused with Vancomycin. The wound was dressed with a Kerlix which was inserted in the undermined area superior aspect. The area was covered with an ABD and secured with tape. There was a small area of skin excoriation left lateral to the wound that was covered with xeroform to the excoriated tissue only, covered with gauze. The patient tolerated the procedure well. He was awakened from anesthesia and transferred to recovery in stable condition. I attest to the content of the Intraoperative Record and any orders documented therein. Any exceptions are noted below.
[2023-07-31] MEDS: BUPIVACAINE 0.5 % 5 MG/1 ML MPF 30ML VIAL ONE (13:52)
[2023-07-31] MEDS: VANCOMYCIN HCL 1000MG/20ML VIAL ONE (13:53)
[2023-07-31] MEDS: MUPIROCIN 2% OINT 22 GM TUBE ONE ×2 (13:54)
--- NOTE | 2023-07-31 14:48 | Hospitalist Progress Note ---
Date of Service July 31, 2023 Assessment & Plan (1) Decubitus ulcer of sacral region, stage 4: Plan: Present on admission, worsened despite pressure offloading, frequent turning, wound care, nutrition Debrided in OR 2/8 Tip of coccyx was exposed. Tissue sent for culture. -continue wound care, discuss plan going forward with surgeon ID has been following PRN (2) Fever: Plan: patient has had fever spikes throughout this admission due to his autonomic storming/hyperactivity but also has had positive blood cultures, infected sacral decub, etc in the recent past. had significant fever again on 07/23/23 (101.5). Has had intermittent low-grade temps ongoing over past months since he started being followed at [facility] work-up obtained 07/23 - * COVID/flu/RSV swab -- negative * cxr -- neg for infiltrates * blood cx's x 2 from 07/23 were negative * sacral decub -- see #1 above not currently on antibiotics (3) Gram-positive bacteremia: Plan: Recent infectious issues: SSTI sacral decubitus ulcer, CT without osteomyelitis, pseudomonas on culture, treated with pip-tazo x 10 days. Group C strep bacteremia - source thought 2nd to sacral wound - zosyn given. Coag neg staph bacteremia - contaminant vs bacteremia - completed 10+ day vancomycin course. Corynebacterium bacteremia - completed 10-day vancomycin course. Sputum colonized with pseudomonas, possible tracheitis with increased secretions 07/10, treated with pip-tazo. 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 - will discuss with his family (7) Pneumatosis coli: Plan: Evaluated by General surgery last admission since no surgical abdomen/peritonitis/symptoms no Rx recommended during that admission etiology of the CT findings was uncertain abdominal exam remains benign / soft, tolerating feedings well (8) History of nontraumatic rupture of cerebral aneurysm: Plan: Patient is nonverbal at baseline with chronic contractures in all 4 extremities Acquired quadriple[address] head shows encephalomalacia and good shunt placement Ry suffered a ruptured brain aneurysm and SAH 08/2022 Had craniotomy and evacuation. skull fragment was reimplanted in November per family. Had a DYE HOUSE HELPER shunt placement at [facility]. Has history of severe autonomic dysfunction / paroxysmal sympathetic hyperactivity / autonomic storm which is controlled on medications and has the potential to be confused with sepsis. Cont complex regimen of meds for this issue (dantrolene, bromocriptine, scop patch, etc) (9) Autonomic dysfunction: Plan: Continue dantrolene and bromocriptine Continue gabapentin and baclofen for spasticity Was tachycardic this AM because of npo status and above meds being held. Resumed meds this am and tachycardia has resolved -avoid holding these meds (10) Decubitus ulcer of calf, unstageable: Plan: Eschar present with no surrounding cellulitis Continue wound care as advised by wound care team (11) Cardiomyopathy: Plan: last echo 07/11/23 - low normal EF 50-55% compensated cont beta joon (12) Tracheostomy status: Plan: colonized with pseudomonas cont local trach care cxr 2/ neg for infiltrates sputum via trach is stable and not copious O2 requirement unchanged (13) Quadriplegia: Plan: 2nd to above (14) Sammi rash of groin: Plan: cont miconazole powder TID improved (15) Diarrhea: Plan: resolved previously had rectal tube - now removed resumed miralax at reduced frequency c diff neg on 07/18/23 Plan reviewed routine labs 07/30 - stable anemia, Hgb 9.4, no leukocytosis, BMP unremarkable updated pt's mother by phone 07/27, 07/30 discussed anticipated surgery his aunt in room 07/28 dispo - numerous referrals made by social work to various SNFs; he will not be returning to [facility] after this admission Admission and Anticipated Discharge Date Admission Date: July 18, 2023 Subjective nonverbal. eyes open, roving eye movements Physical Exam 2 Physical Exam: PHYSICAL EXAMINATION Last 24h vital signs reviewed, see documentation in flowsheet General: no distress or agitation HEENT: eyes open, sclerae clear, trach site cdi Lungs: Normal respiratory effort. Clear to auscultation bilaterally. No RRW Heart: mildly tachycardic Regular rate and rhythm, no murmurs. No JVD Abdomen: Soft, nontender, nondistended. Bowel sounds present. G-tube site mid abdomen. Extremities: Warm, dry, well-perfused. No extremity edema. diffuse sarcopenia present he has flexion contractures of both wrists, right elbow, bilateral lower extremities mildly flexed, high tone throughout unchanged Neuro: eyes open roving eye movements, did not track to voice/stimulation, diandra Psych: unable to assess, no agitation Results & Data Results & Data Vital Signs (Past 12 Hours) Vital Signs Temp Pulse Pulse Pulse Resp BP BP 07/31/23 14:30 89 18 97/64 L 07/31/23 14:20 86 20 101/60 07/31/23 14:00 86 18 97/59 L 07/31/23 13:50 36.0 C L 86 20 93/58 L 07/31/23 12:10 36.5 C 106 H 20 109/69 07/31/23 10:21 07/31/23 08:13 107 H 07/31/23 08:11 37.4 C 109 H 16 100/59 L 07/31/23 05:16 07/31/23 03:18 36.8 C 92 H 20 106/78 Pulse Ox O2 Del Method O2 Flow Rate 07/31/23 14:30 92 Trach Collar 8 07/31/23 14:20 92 Trach Collar 10 07/31/23 14:00 93 Trach Collar 10 07/31/23 13:50 93 Trach Collar 10 07/31/23 12:10 89 L Trach Collar 4 07/31/23 10:21 Oxymask, Trach Collar 4 07/31/23 08:13 07/31/23 08:11 92 Trach Collar 4 07/31/23 05:16 Trach Collar 4 07/31/23 03:18 99 Room Air Laboratory Results 07/30/23 05:50 07/30/23 05:50 PG Care Time/CCT Total # of Minutes Spent Total Time Spent with Patient: Total time spent is greater than 50% in coordination of care (as documented) at patient's floor/unit and/or counseling patient: Coding Level of Care Code 68340 SUB INP/OBS CARE 2/35MIN Diagnoses Decubitus ulcer of sacral region, stage 4 L89.154 Fever R50.9 Gram-positive bacteremia R78.81 Transaminitis R74.01 Severe protein-calorie malnutrition E43 History of DVT (deep vein thrombosis) Z86.718 Pneumatosis coli K63.89 History of nontraumatic rupture of cerebral aneurysm Z86.79 Autonomic dysfunction G90.9 Decubitus ulcer of calf, unstageable L89.890 Cardiomyopathy I42.9 Tracheostomy status Z93.0 Quadriplegia G82.50 Sammi rash of groin B37.89 Diarrhea R19.7
[2023-07-31] MEDS ORDERED: MoRPHine SULFATE 2 MG/ML CARP IV PRN (14:52)
--- NOTE | 2023-07-31 15:20 | Anesthesiology Progress Note ---
Date of Service July 31, 2023 Anesthesia Post Procedure Vital Signs Vital Signs: Temp Pulse Pulse Pulse Pulse Resp BP 07/31/23 15:00 37.1 C 96 H 18 93/61 L 07/31/23 14:30 89 18 07/31/23 14:20 86 20 07/31/23 14:00 86 18 07/31/23 13:50 36.0 C L 86 20 07/31/23 12:10 36.5 C 106 H 20 07/31/23 10:21 07/31/23 08:13 107 H 07/31/23 08:11 37.4 C 109 H 16 100/59 L 07/31/23 05:16 07/31/23 03:18 36.8 C 92 H 20 07/31/23 00:31 37.0 C 94 H 20 07/30/23 22:00 96 H 07/30/23 20:10 37.8 C H 99 H 20 07/30/23 17:05 95 H 17 102/69 07/30/23 16:53 37.6 C H 07/30/23 15:22 90 BP Pulse Ox O2 Del Method O2 Flow Rate 07/31/23 15:00 91 Oxymask, Trach Collar 8 07/31/23 14:30 97/64 L 92 Trach Collar 8 07/31/23 14:20 101/60 92 Trach Collar 10 07/31/23 14:00 97/59 L 93 Trach Collar 10 07/31/23 13:50 93/58 L 93 Trach Collar 10 07/31/23 12:10 109/69 89 L Trach Collar 4 07/31/23 10:21 Oxymask, Trach Collar 4 07/31/23 08:13 07/31/23 08:11 92 Trach Collar 4 07/31/23 05:16 Trach Collar 4 07/31/23 03:18 106/78 99 Room Air 07/31/23 00:31 109/74 95 Trach Collar 4 07/30/23 22:00 07/30/23 20:10 99/62 L 95 Trach Collar 4 07/30/23 17:05 99 Trach Collar 4 07/30/23 16:53 07/30/23 15:22 Transfer of Care Handoff Completed per policy Notes Mental Status: see notes below Patient Amnestic to Procedure: Yes Nausea / Vomiting: adequately controlled Pain: adequately controlled Airway Patency, RR, SpO2: stable & adequate BP & HR: stable & adequate Hydration State: stable & adequate Anesthetic Complications: no major complications apparent Notes: pt is non responsive 2ndary to TBI.
--- NOTE | 2023-08-01 10:26 | XRay Report ---
XR chest 1V portable CLINICAL HISTORY: Hypoxia. COMPARISON STUDY: Chest CT May 07, 2023. Chest radiograph July 23, 2023. FINDINGS: Tracheostomy tube is in place. Visualized portions of the shunt catheter are intact. There is no pneumothorax. Possible small left pleural effusion. Left mid and lower lung airspace opacity wi th volume loss has developed. Right lung is clear. No evidence for pulmonary edema. Cardiomediastinal silhouette is stable. IMPRESSION: Interval development of left mid and lower lung airspace opacity with volume loss. This favors pneumonia or aspiration pneumonitis although atelectasis could appear similar. Radiographic fo llow up to ensure resolution is recommended. ACT 112: Negative or not required by law. Electronically signed by: Kirby Spencer M.D. 08/01/2023 10:24 AM
[2023-08-01] MEDS ORDERED: bisacodyL 10 MG SUPP PR PRN (12:29)
[2023-08-01 13:07] LABS: Basophils # (auto) 0.07 K/uL (0.00-0.20); Basophils % (auto) 0.5 %; Eosinophils # (auto) 0.21 K/uL (0.00-0.50); Eosinophils % (auto) 1.6 %; Hematocrit (blood only) 32.4 % (42.0-52.0); Hemoglobin 10.3 g/dl (14.0-18.0); Immature Granulocytes # (auto) 0.07 K/uL (0.01-0.20); Immature Granulocytes % (auto) 0.5 %; Lymphocytes # (auto) 2.02 K/uL (1.20-3.40); Lymphocytes % (auto) 15.4 %; Mean Corpuscular Hemoglobin 30.6 pg (25.0-34.0); Mean Corpuscular Hgb Conc 31.8 g/dL (32.0-36.0); Mean Corpuscular Volume 96.1 fL (80.0-100.0); Mean Platelet Volume 10.3 fL (9.4-12.4); Monocytes # (auto) 0.89 K/uL (0.11-0.59); Monocytes % (auto) 6.8 %; Neutrophils # (auto) 9.82 K/uL (1.40-6.50); Neutrophils % (auto) 75.2 %; Platelet Count 354 K/uL (130-400); RDW Coefficient of Variation 13.9 % (11.5-14.5); RDW Standard Deviation 49.3 fL (36.4-46.3); Red Blood Count 3.37 M/uL (4.70-6.10); White Blood Count 13.08 K/ul (4.8-10.8)
[2023-08-01 13:16] LABS: Anion Gap 10 (3-11); Blood Urea Nitrogen 22 mg/dl (6-23); Calcium 9.4 mg/dl (8.6-10.3); Carbon Dioxide 27 mmol/L (21-32); Chloride 100 mmol/L (98-107); Creatinine Clr Calc Pharmacy 152.7 ml/min; Est GFR (African American) > 150.0 ml/min; Est GFR (Non-African American) 143.4 ml/min; Glucose 102 mg/dl (70-99(Fasting)); Potassium 4.2 mmol/L (3.5-5.1); Sodium 137 mmol/L (136-145)
[2023-08-01] MEDS: bisacodyL 10 MG SUPP PR STA (13:43)
--- NOTE | 2023-08-01 15:14 | Surgery Progress Note ---
<Statement entered by Angela Issa, - 08/01/23 16:31> The most inferior tip of the coccyx was noted to be with removal of tissue. F/U tissue cultures. Date of Service August 01, 2023 Assessment & Plan (1) Sacral decubitus ulcer: Plan: POD#1 debridement of sacral ulcer wbc 13, hbg 10(9) wound vac placed successfully by auto damage estimator from our standpoint would start pt on abx based on culture data if wound vac drainage is okay by tomorrow may resume lynette will follow peripherally for now, call with any questions/concerns Admission and Anticipated Discharge Date Admission Date: July 18, 2023 Subjective patient resting in bed. non verbal at baseline. i did not attempt to wake him up from his sleep Physical Exam Physical Exam: sleeping Gastrointestinal (Abdomen): wound vac in place. holding seal. no drainage in cansister Results & Data Vital Signs (Past 12 Hours) Vital Signs Temp Pulse Pulse Resp BP Pulse Ox O2 Del Method 08/01/23 14:39 100 H 08/01/23 12:56 99.3 F 98 H 16 117/79 93 Trach Collar 08/01/23 10:17 Oxymask, Trach Collar 08/01/23 08:39 99.0 F 93 H 16 104/68 93 Trach Collar 08/01/23 07:07 96 H 08/01/23 03:36 98.6 F 102 H 20 100/60 95 Trach Collar O2 Flow Rate 08/01/23 14:39 08/01/23 12:56 6 08/01/23 10:17 7 08/01/23 08:39 6 08/01/23 07:07 08/01/23 03:36 7 PG Care Time/CCT Total # of Minutes Spent Total Time Spent with Patient: Total time spent is greater than 50% in coordination of care (as documented) at patient's floor/unit and/or counseling patient: Coding Level of Care Code 05595 Post Operative Follow-Up Diagnoses Pressure injury of skin of sacral region, unspecified injury stage L89.159 Pressure injury stage: unspecified pressure injury stage (1) Sacral decubitus ulcer Pressure injury stage: unspecified pressure injury stage Qualified Code(s): L89.159 - Pressure ulcer of sacral region, unspecified stage
--- NOTE | 2023-08-01 16:09 | Hospitalist Progress Note ---
Date of Service August 01, 2023 Assessment & Plan (1) Decubitus ulcer of sacral region, stage 4: Plan: Present on admission, worsened despite pressure offloading, frequent turning, wound care, nutrition Debrided in OR 2/8 Tip of coccyx was exposed. Tissue sent for culture - gram stain with GNR and GPC. -continue wound care, discussed with surgeon - will cover with pip-tazo pending culture results, based on previous wound cultures that had pseudomonas -wound vac placed (2) Gram-positive bacteremia: Plan: Recent infectious issues: SSTI sacral decubitus ulcer, CT without osteomyelitis, pseudomonas on culture, treated with pip-tazo x 10 days. Group C strep bacteremia - source thought 2nd to sacral wound - zosyn given. Coag neg staph bacteremia - contaminant vs bacteremia - completed 10+ day vancomycin course. Corynebacterium bacteremia - completed 10-day vancomycin course. Sputum colonized with pseudomonas, possible tracheitis with increased secretions 07/10, treated with pip-tazo. 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, held perioperatively -discussed with surgery may resume tomorrow if not having concerning output from vac drain (5) Pneumatosis coli: Plan: Evaluated by General surgery last admission since no surgical abdomen/peritonitis/symptoms no Rx recommended during that admission etiology of the CT findings was uncertain abdominal exam remains benign / soft, tolerating feedings well (6) History of nontraumatic rupture of cerebral aneurysm: Plan: Patient is nonverbal at baseline with chronic contractures in all 4 extremities Acquired quad[address] head shows encephalomalacia and good shunt placement Ry suffered a ruptured brain aneurysm and SAH 08/2022 Had craniotomy and evacuation. skull fragment was reimplanted in November per family. Had a COMMERCIAL REPRESENTATIVE shunt placement at [facility]. Has history of severe autonomic dysfunction / paroxysmal sympathetic hyperactivity / autonomic storm which is controlled on medications and has the potential to be confused with sepsis. Cont complex regimen of meds for this issue (dantrolene, bromocriptine, scop patch, etc) (7) Autonomic dysfunction: Plan: Continue dantrolene and bromocriptine Continue gabapentin and baclofen for spasticity -avoid holding these meds when "npo" Has intermittent low grade temp elevation several times a week historically, often related to autonomic hyperreactivity and/or aspirations (8) Decubitus ulcer of calf, unstageable: Plan: Eschar present with no surrounding cellulitis Continue wound care as advised by wound care team (9) Cardiomyopathy: Plan: last echo 07/11/23 - low normal EF 50-55% compensated cont beta joon (10) Tracheostomy status: Plan: colonized with pseudomonas cont local trach care cxr 07/28 neg for infiltrates sputum via trach is stable and not copious Increased hypoxia postop required 8L improved to 6L today (usual 4L) Obtained CXR - reviewed film shows some LLL collapse and consolidation. At this time favor aspiration or atelectasis over pneumonia since hypoxia improving and no increase in secretions, procal obtained and its negative (11) Quadriplegia: Plan: 2nd to above (12) Sammi rash of groin: Plan: cont miconazole powder TID improved (13) Diarrhea: Plan: resolved previously had rectal tube - now removed c diff neg on 07/18/23 resumed miralax at daily but now constipated, discussed with RN - increased back to bid, dulcolax supp ordered Plan reviewed routine labs 08/01 - W13, Hct 32, BMP unremarkable updated pt's mother by phone 07/27, 07/30 discussed anticipated surgery his aunt in room 07/28 dispo - numerous referrals made by social work to various SNFs; he will not be returning to [facility] after this admission Admission and Anticipated Discharge Date Admission Date: July 18, 2023 Subjective nonverbal. debridement yesterday. O2 requirement improved from 8L --> 6L trach mask. (usual 4L). Afebrile Physical Exam 2 Physical Exam: PHYSICAL EXAMINATION Last 24h vital signs reviewed, see documentation in flowsheet General: no distress or agitation HEENT: eyes open, sclerae clear, trach site cdi Lungs: Normal respiratory effort. Clear to auscultation bilaterally. No RRW Heart: Regular rate and rhythm, no murmurs. No JVD Abdomen: Soft, nondistended. Bowel sounds present. G-tube site mid abdomen without erythema or drainage. Extremities: Warm, dry, well-perfused. No extremity edema. diffuse sarcopenia present he has flexion contractures of both wrists, right elbow, bilateral lower extremities mildly flexed, high tone throughout unchanged Neuro: eyes open roving eye movements, blinks, did not track to voice/stimulation, diandra Psych: unable to assess, no agitation Results & Data Results & Data Vital Signs (Past 12 Hours) Vital Signs Temp Pulse Pulse Resp BP Pulse Ox O2 Del Method 08/01/23 15:24 36.8 C 100 H 16 98/66 L 93 Trach Collar 08/01/23 14:39 100 H 08/01/23 12:56 37.4 C 98 H 16 117/79 93 Trach Collar 08/01/23 10:17 Oxymask, Trach Collar 08/01/23 08:39 37.2 C 93 H 16 104/68 93 Trach Collar 08/01/23 07:07 96 H O2 Flow Rate 08/01/23 15:24 6 08/01/23 14:39 08/01/23 12:56 6 08/01/23 10:17 7 08/01/23 08:39 6 08/01/23 07:07 Laboratory Results 08/01/23 12:41 08/01/23 12:41 Diagnostic Findings Chest X-Ray 08/01/23 07:25 XR chest 1V portable CLINICAL HISTORY: Hypoxia. COMPARISON STUDY: Chest CT May 07, 2023. Chest radiograph July 23, 2023. FINDINGS: Tracheostomy tube is in place. Visualized portions of the shunt catheter are intact. There is no pneumothorax. Possible small left pleural effusion. Left mid and lower lung airspace opacity with volume loss has developed. Right lung is clear. No evidence for pulmonary edema. Cardiomediastinal silhouette is stable. IMPRESSION: Interval development of left mid and lower lung airspace opacity with volume loss. This favors pneumonia or aspiration pneumonitis although atelectasis could appear similar. Radiographic follow up to ensure resolution is recommended. ACT 112: Negative or not required by law. Electronically signed by: Kirby Spencer M.D. 08/01/2023 10:24 AM PG Care Time/CCT Total # of Minutes Spent Total Time Spent with Patient: I personally spent: 50 minutes today on clinical care activities including: reviewing chart notes and vital signs reviewing labs reviewing studies discussion with network relations consultant - surgery discussion with bedside RN examining the patient writing orders documentation Coding Level of Care Code 91723 SUB INP/OBS CARE 3/50MIN Diagnoses Decubitus ulcer of sacral region, stage 4 L89.154 Gram-positive bacteremia R78.81 Severe protein-calorie malnutrition E43 History of DVT (deep vein thrombosis) Z86.718 Pneumatosis coli K63.89 History of nontraumatic rupture of cerebral aneurysm Z86.79 Autonomic dysfunction G90.9 Decubitus ulcer of calf, unstageable L89.890 Cardiomyopathy I42.9 Tracheostomy status Z93.0 Quadriplegia G82.50 Sammi rash of groin B37.89 Diarrhea R19.7
[2023-08-01] MEDS: PIPER/TAZO 4.5g in D5W MINI-B 100 ML IV ONE (16:52)
[2023-08-01] MEDS: PIPERACILLIN/TAZOBACTAM 4.5 GM in DEXTROSE 5% MINI-B 100 ML IV SCH ×2 (16:53→22:11)
[2023-08-01] MEDS: POLYETHYLENE (MIRALAX) 17 GM PACK PEG SCH (22:04)
[2023-08-01] MEDS: PROSOURCE NO CARB 30 ML/PKT GT SCH (22:06)
--- NOTE | 2023-08-02 16:39 | Hospitalist Progress Note ---
Date of Service August 02, 2023 Assessment & Plan (1) Decubitus ulcer of sacral region, stage 4: Plan: Present on admission, worsened despite pressure offloading, frequent turning, wound care, nutrition Debrided in OR 2/8 Tip of coccyx was exposed. Tissue sent for culture - gram stain/culture with GNR, few staph, Providencia (S to CTX, mery, pip-tazo), anaerobes so far -continue wound care, continue pip-tazo pending culture results, based on previous wound cultures that had pseudomonas -wound vac placed 08/01 -discuss with ID Friday Tm 38.3 this am, possibly related to L lower lobe process, yield of blood culture will be low since already on IV antibiotics. obtain blood culture if true fever spikes again (2) Tracheostomy status: Plan: colonized with pseudomonas cont local trach care cxr 07/28 neg for infiltrates sputum via trach is stable and not copious Increased hypoxia postop required 8L improved to 6L (usual 4L) Obtained CXR - reviewed film shows some LLL collapse and consolidation. At this time favor aspiration or atelectasis over pneumonia since hypoxia improving and no increase in secretions, procal obtained and its negative, already on pip- tazo. Repeat CXR tomorrow (3) Gram-positive bacteremia: Plan: Recent infectious issues: SSTI sacral decubitus ulcer, CT without osteomyelitis, pseudomonas on culture, treated with pip-tazo x 10 days. Group C strep bacteremia - source thought 2nd to sacral wound - zosyn given. Coag neg staph bacteremia - contaminant vs bacteremia - completed 10+ day vancomycin course. Corynebacterium bacteremia - completed 10-day vancomycin course. Sputum colonized with pseudomonas, possible tracheitis with increased secretions 07/10, treated with pip-tazo. 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, held perioperatively -discussed with surgery may resume if not having concerning output from vac drain (6) Pneumatosis coli: Plan: Evaluated by General surgery last admission since no surgical abdomen/peritonitis/symptoms no Rx recommended during that admission etiology of the CT findings was uncertain abdominal exam remains benign / soft, tolerating feedings well (7) History of nontraumatic rupture of cerebral aneurysm: Plan: Patient is nonverbal at baseline with chronic contractures in all 4 extremities Acquired quadriple[address] head shows encephalomalacia and good shunt placement Ry suffered a ruptured brain aneurysm and SAH 08/2022 Had craniotomy and evacuation. skull fragment was reimplanted in November per family. Had a CLERICAL ASSISTANT shunt placement at [facility]. Has history of severe autonomic dysfunction / paroxysmal sympathetic hyperactivity / autonomic storm which is controlled on medications and has the potential to be confused with sepsis. Cont complex regimen of meds for this issue (dantrolene, bromocriptine, scop patch, etc) (8) Autonomic dysfunction: Plan: Continue dantrolene and bromocriptine Continue gabapentin and baclofen for spasticity -avoid holding these meds when "npo" Has intermittent low grade temp elevation several times a week historically, often related to autonomic hyperreactivity and/or aspirations (9) Decubitus ulcer of calf, unstageable: Plan: Eschar present with no surrounding cellulitis Continue wound care as advised by wound care team (10) Cardiomyopathy: Plan: last echo 07/11/23 - low normal EF 50-55% compensated cont beta joon (11) Quadriplegia: Plan: 2nd to above (12) Sammi rash of groin: Plan: cont miconazole powder TID improved (13) Diarrhea: Plan: resolved previously had rectal tube - now removed c diff neg on 07/18/23 resumed miralax at daily but now constipated, discussed with RN - increased back to bid, dulcolax supp ordered Plan reviewed routine labs 08/01 - W13, Hct 32, BMP unremarkable updated pt's mother by phone 07/27, 07/30 discussed anticipated surgery his aunt in room 07/28 dispo - numerous referrals made by social work to various SNFs; he will not be returning to [facility] after this admission Admission and Anticipated Discharge Date Admission Date: July 18, 2023 Subjective nonverbal, no events last 24h Physical Exam 2 Physical Exam: PHYSICAL EXAMINATION Last 24h vital signs reviewed, see documentation in flowsheet General: sleeping HEENT: eyes closed, trach site cdi Lungs: Normal respiratory effort. Clear to auscultation bilaterally. No RRW Heart: mildly tachycardic Regular rate and rhythm, no murmurs. No JVD Abdomen: Soft, nondistended. Bowel sounds present. G-tube site mid abdomen Extremities: Warm, dry, well-perfused. No extremity edema. diffuse sarcopenia present Reviewed photos from wound nurse 08/01 sacral decubitus ulcer he has flexion contractures of both wrists, right elbow, bilateral lower extremities mildly flexed, high tone throughout unchanged Neuro: eyes closed, did not rouse to voice or exam Psych: unable to assess, no agitation Results & Data Results & Data Vital Signs (Past 12 Hours) Vital Signs Temp Pulse Resp BP Pulse Ox O2 Del Method O2 Flow Rate 08/02/23 12:10 37.6 C H 106 H 16 100/65 97 Trach Collar 6 08/02/23 08:23 38.3 C H 110 H 16 102/66 97 Trach Collar 6 Laboratory Results 08/01/23 12:41 08/01/23 12:41 PG Care Time/CCT Total # of Minutes Spent Total Time Spent with Patient: Total time spent is greater than 50% in coordination of care (as documented) at patient's floor/unit and/or counseling patient: Coding Level of Care Code 03116 SUB INP/OBS CARE 2/35MIN Diagnoses Decubitus ulcer of sacral region, stage 4 L89.154 Tracheostomy status Z93.0 Gram-positive bacteremia R78.81 Severe protein-calorie malnutrition E43 History of DVT (deep vein thrombosis) Z86.718 Pneumatosis coli K63.89 History of nontraumatic rupture of cerebral aneurysm Z86.79 Autonomic dysfunction G90.9 Decubitus ulcer of calf, unstageable L89.890 Cardiomyopathy I42.9 Quadriplegia G82.50 Sammi rash of groin B37.89 Diarrhea R19.7
--- NOTE | 2023-08-03 09:27 | XRay Report ---
XR chest 1V portable CLINICAL HISTORY: hypoxia, L base consolidation/collapse COMPARISON STUDY: Chest radiograph August 01, 2023. Chest CT May 07, 2023. FINDINGS: Tracheostomy tube, gastrostomy tube and shunt catheter are incidentally noted. There is no pneumothorax. There has been interval development of left lung opacification. There is mild left lung volume loss. Right lung is clear. IMPRESSION: Interval development of opacification of the left lung. This suggests left lung collapse, possibly due to mucous plugging. This finding will be called/faxed to the ordering provider at time of dictation. ACT 112: Negative or not required by law. Electronically signed by: Kirby Spencer M.D. 08/03/2023 9:26 AM
--- NOTE | 2023-08-03 12:33 | Pulmonary Consultation ---
Date of Consultation August 03, 2023 Assessment & Plan (1) Pneumonia involving left lung: (2) Respiratory failure: (3) Tracheostomy status: Plan 32-year-old complex male with past medical history of cardiomyopathy, PEG tube, ruptured cerebral aneurysm resulting in chronic trach dependence and and nonverbal state who is presenting with severe left-sided pneumonia. His left lung is completely opacified likely due to severe mucous plugging. Will perform bronchoscopy to clear airway. Consent obtained from patient's mother on the phone. Will send bronch sample for cultures. Continue Zosyn. Obtain MRSA screen. Consider addition of vancomycin if MRSA screen is positive. Continue efforts at mucociliary clearance. History of Present Illness Reason for Consultation: Left lung opacification Attending Physician: Ayesha Metcalf MD History of Present Illness 32-year-old male with a history of nontraumatic rupture of a cerebral aneurysm, PLASTER MODEL AND MOLD MAKER shunt and chronic trach who has been hospitalized for the past 2 weeks for sepsis and sacral decubitus ulcer. This morning patient had increased secretions and a chest x-ray was obtained which revealed complete opacification of the left lung. History is unobtainable from the patient as he is nonverbal at baseline since his cerebral aneurysm rupture. I did call the patient's mother to obtain consent regarding bronchoscopy. She gives consent and was able to give some collateral history. She notes that his secretions have worsened over the past couple days and have been foul-smelling. Allergies Allergy/AdvReac Type Severity Reaction Status Date / Time No Known Allergies Allergy Unverified 07/08/23 15:52 Home Medications Medication Instructions Recorded Confirmed Type scopolamine base 1 mg over 3 days 1 patch transdermal Q3D 04/02/23 07/18/23 History transdermal patch acetaminophen 325 mg/10.15 mL oral 650 mg (20.3 mL) PEG Q6 #250 mL 04/17/23 07/18/23 Rx suspension bromocriptine 2.5 mg tablet 2.5 mg feeding tube Q6 #120 tabs 04/17/23 07/18/23 Rx bisacodyl 10 mg rectal suppository 10 mg [place] .EVERY 24 HOURS PRN 05/04/23 07/18/23 History Constipation Proheal 30 ml feeding tube BID 07/08/23 07/18/23 History apixaban 5 mg tablet (Eliquis) 5 mg feeding tube BID 07/08/23 07/18/23 History ascorbic acid (vitamin C) 500 mg 500 mg PO DAILY 07/08/23 07/18/23 History tablet baclofen 20 mg tablet 20 mg feeding tube Q6 07/08/23 07/18/23 History collagenase clostridium histo. 250 1 applic topical .EVERY DAY SHIFT 07/08/23 07/18/23 History unit/gram topical ointment (Santyl) collagenase clostridium histo. 250 1 applic topical DIRECTED PRN 07/08/23 07/18/23 History unit/gram topical ointment (Santyl) soilage/dislodgement ferrous sulfate 300 mg (60 mg 325 mg feeding tube Q OTHER DAY 07/08/23 07/18/23 History iron)/5 mL oral liquid lactose-reduced food with fiber 1 ea feeding tube Q4 07/08/23 07/18/23 History 0.06 gram-1.5 kcal/mL oral liquid (Jevity 1.5 Lance) magnesium hydroxide 400 mg/5 mL 2,400 mg feeding tube DAILY PRN 07/08/23 07/18/23 History oral suspension (Milk of Magnesia) Constipation metoprolol tartrate 25 mg tablet 25 mg PEG Q12 07/08/23 07/18/23 History multivitamin 1 tab feeding tube QAM 07/08/23 07/18/23 History sodium phosphates 19 gram-7 118 ml [place] .MORNING OF 4TH DAY PRN 07/08/23 07/18/23 History gram/118 mL enema (Fleet Enema) Constipation water 1 ea UD 07/08/23 07/18/23 History zinc sulfate 50 mg zinc (220 mg) 50 mg feeding tube DAILY 07/08/23 07/18/23 History tablet Magic Mix See Rx Instructions .Route .COMPLEX 07/18/23 07/18/23 History Saccharomyces boulardii 250 mg 250 mg feeding tube DAILY 07/18/23 07/18/23 History capsule dantrolene 100 mg capsule 100 mg feeding tube Q6H 07/18/23 07/18/23 History gabapentin 400 mg capsule 400 mg feeding tube Q4H 07/18/23 07/18/23 History Patient History Medical History (Updated 08/03/23 @ 12:32 by Karthikeyan Blancas MD) Pneumonia involving left lung Sacral decubitus ulcer Quadriplegia Nonverbal Autonomic dysfunction Cardiomyopathy History of DVT (deep vein thrombosis) Moderate protein-calorie malnutrition History of nontraumatic rupture of cerebral aneurysm History of traumatic brain injury Surgical History (Updated 08/01/23 @ 10:11 by Seema Cruz RN) S/P debridement (07/31/23) Incision and Debridement of Sacral Decubitus Ulcer(Not Applicable) - Angela Issa, Tracheostomy status S/P PLASTER MODEL AND MOLD MAKER shunt Social History Smoking Status: Never smoker Tobacco Type: Cigarettes Second Hand Exposure: No; Do You Dip or Chew Tobacco: No; Hx Alcohol Use: No Hx Substance Use: No Preferred Language: Scottish Communication Ability: Impaired Provider Enrollment Specialist Required: No Beliefs That Will Affect Care: None Current Living Situation: [facility]dc Feels Safe at Home: Yes Assistive Devices: Other Review of Systems Review of Systems: Unobtainable due to cognitive status Physical Exam Physical Exam: PHYSICAL EXAMINATION General: Emaciated appearing. Frail. HEENT: eyes closed, trach site noted to be clean dry and intact Lungs: Diminished on the left with coarse rhonchi. Heart: mildly tachycardic Regular rate and rhythm, no murmurs. No JVD Abdomen: Soft, nondistended. Bowel sounds present. G-tube site mid abdomen Extremities: Warm, dry, well-perfused. No extremity edema. Contractures noted of the upper extremities Neuro: eyes closed, did not rouse to voice or exam Psych: unable to assess, no agitation Results & Data Results & Data Vital Signs (Past 12 Hours) Vital Signs Temp Pulse Pulse Resp BP Pulse Ox O2 Del Method 08/03/23 08:11 Trach Collar 08/03/23 05:57 109 H 08/03/23 04:00 36.7 C 102 H 18 100/66 96 Room Air 08/02/23 23:56 106 H 08/02/23 23:32 Trach Collar O2 Flow Rate 08/03/23 08:11 08/03/23 05:57 08/03/23 04:00 08/02/23 23:56 08/02/23 23:32 6 PG Care Time/CCT Total # of Minutes Spent Total Time Spent with Patient: Total time spent is greater than 50% in coordination of care (as documented) at patient's floor/unit and/or counseling patient: Coding Level of Care Code 62497 IN/OBS CONSULT LVL 4,60M Diagnoses Pneumonia involving left lung J18.9 Respiratory failure J96.90 Tracheostomy status Z93.0
--- NOTE | 2023-08-03 13:10 | Procedure Note ---
Supervising Physician Co-Signing Physician Notes PREOPERATIVE DIAGNOSIS: Left lung opacity POSTOPERATIVE DIAGNOSIS: Left lung opacity PROCEDURE PERFORMED: Flexible fiberoptic bronchoscopy with aspiration of COMPLICATIONS: None. INDICATION: Clear airway due to mucous plugging PROCEDURE: Informed consent was obtained from the patient's mother over the phone as she is the POA. Patient is unable to give consent due to nonverbal status. Patient was preoxygenated with 100% FiO2 via trach collar. Bronchoscope was inserted via tracheostomy. Significant excessive dynamic airway collapse is noted of the trachea and tracheobronchial tree. There was significant mucoid impactions which appear to be bloody secretions emanating from the left lung. These were suctioned free and sent for culture. I used aliquots of saline to help clear the left lung. The airway appeared swollen and with excessive dynamic collapse. All secretions were suctioned free and the tracheobronchial tree was clear of any obvious lesions. The scope was withdrawn. The patient tolerated the procedure well. Recommendations: Follow bronchoscopy cultures. Follow-up chest x-ray. [facility] [place] Procedure Codes (Charges) Pulmonary/Thoracic Procedure 1: Pulmonary and Thoracic: 65028 Dx bronchoscopy/wash
--- NOTE | 2023-08-03 13:30 | XRay Report ---
XR chest 1V portable CLINICAL HISTORY: s/p bronch COMPARISON STUDY: Chest radiograph performed earlier today. FINDINGS: Tracheostomy tube and partially visualized shunt catheter are incidentally noted. There is no pneumothorax. There is a small left pleural effusion. Left lung aeration has improved since prior radiographs. Moderate residual left lung airspace opacities. IMPRESSION: Interval improvement in left lung aeration. Moderate residual left lung opacity favors partial atelec tasis of the left lung. Small left pleural effusion. No pneumothorax. ACT 112: Negative or not required by law. Electronically signed by: Kirby Spencer M.D. 08/03/2023 1:29 PM
--- NOTE | 2023-08-03 13:55 | Hospitalist Progress Note ---
Date of Service August 03, 2023 Assessment & Plan (1) Pneumonia involving left lung: Plan: Had fever, persistent hypoxia worse than baseline following debridement surgery, acute hypoxic respiratory failure, obtained repeat CXR today and reviewed film, entire L lung field opacified concerning for pneumonia, mucus plugging -chest PT ordered -consulted Dr. Blancas who performed bronchoscopy - discussed with him, large mucus plug suctioned from left side -lungs are colonized with pseudomonas -await cultures -continue pip-tazo (2) Decubitus ulcer of sacral region, stage 4: Plan: Present on admission, worsened despite pressure offloading, frequent turning, wound care, nutrition Debrided in OR 07/31 Tip of coccyx was exposed. Tissue sent for culture - gram stain/culture with GNR, few staph, Providencia (S to CTX, mery, pip-tazo), anaerobes so far - no updates on sensis today -continue wound care, continue pip-tazo pending culture results, based on previous wound cultures that had pseudomonas -wound vac placed 08/01 -discuss with ID Friday (3) Tracheostomy status: Plan: colonized with pseudomonas cont local trach care see above (4) Gram-positive bacteremia: Plan: Recent infectious issues: SSTI sacral decubitus ulcer, CT without osteomyelitis, pseudomonas on culture, treated with pip-tazo x 10 days. Group C strep bacteremia - source thought 2nd to sacral wound - zosyn given. Coag neg staph bacteremia - contaminant vs bacteremia - completed 10+ day vancomycin course. Corynebacterium bacteremia - completed 10-day vancomycin course. Sputum colonized with pseudomonas, possible tracheitis with increased secretions 07/10, treated with pip-tazo. 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 skull fragment was reimplanted in November per family. Had a QUENCHING MACHINE OPERATOR shunt placement at [facility]. Has history of severe autonomic dysfunction / paroxysmal sympathetic hyperactivity / autonomic storm which is controlled on medications and has the potential to be confused with sepsis. Cont complex regimen of meds for this issue (dantrolene, bromocriptine, scop patch, etc) (9) Autonomic dysfunction: Plan: Continue dantrolene and bromocriptine Continue gabapentin and baclofen for spasticity -avoid holding these meds when "npo" Has intermittent low grade temp elevation several times a week historically (10) Decubitus ulcer of calf, unstageable: Plan: Eschar present with no surrounding cellulitis Continue wound care as advised by wound care team (11) Cardiomyopathy: Plan: last echo 07/11/23 - low normal EF 50-55% compensated cont beta joon (12) Quadriplegia: Plan: 2nd to above (13) Sammi rash of groin: Plan: cont miconazole powder TID improved (14) Diarrhea: Plan: resolved previously had rectal tube - now removed c diff neg on 07/18/23 became constipated on reduced miralax back on his usual bowel regimen Plan updated Ry's mother Crystal by phone afternoon 08/03 regarding bronchoscopy, discussed overall poor prognosis and my concerns that he continues to have frequent hospitalizations with infections, worsening decubitus, persistently poor neurologic status approaching a year from his hemorrhage. Her perspective is that he has had a lot of improvement since last spring and that the complications he has experienced are the result of poor care. dispo - numerous referrals made by social work to various SNFs; he will not be returning to [facility] after this admission Admission and Anticipated Discharge Date Admission Date: July 18, 2023 Subjective nonverbal, not awake this am, remains more hypoxic than baseline and mildly tachycardic, unchanged on 6L, repeat CXR - L side opacified, consulted pulmonary, bronchoscopy performed Physical Exam 2 Physical Exam: PHYSICAL EXAMINATION Last 24h vital signs reviewed, see documentation in flowsheet General: eyes closed HEENT: eyes closed, trach site cdi Lungs: clear anteriorly, posterior exam difficult, R clear, L may be diminished Heart: mildly tachycardic Regular rate and rhythm, no murmurs. No JVD Abdomen: Soft, nondistended. Bowel sounds present. G-tube site mid abdomen Extremities: Warm, dry, well-perfused. No extremity edema. diffuse sarcopenia present he has flexion contractures of both wrists, right elbow, bilateral lower extremities mildly flexed, high tone throughout unchanged Neuro: eyes closed, did not rouse to voice or exam Psych: unable to assess, no agitation Results & Data Results & Data Vital Signs (Past 12 Hours) Vital Signs Temp Pulse Pulse Resp BP Pulse Ox O2 Del Method 08/03/23 13:39 Trach Collar 08/03/23 11:57 37.8 C H 105 H 14 105/70 95 Room Air 08/03/23 08:11 Trach Collar 08/03/23 05:57 109 H 08/03/23 04:00 36.7 C 102 H 18 100/66 96 Room Air Laboratory Results 08/01/23 12:41 08/01/23 12:41 PG Care Time/CCT Total # of Minutes Spent Total Time Spent with Patient: Total time spent is greater than 50% in coordination of care (as documented) at patient's floor/unit and/or counseling patient: Coding Level of Care Code 97618 SUB INP/OBS CARE 3/50MIN Diagnoses Pneumonia involving left lung J18.9 Decubitus ulcer of sacral region, stage 4 L89.154 Tracheostomy status Z93.0 Gram-positive bacteremia R78.81 Severe protein-calorie malnutrition E43 History of DVT (deep vein thrombosis) Z86.718 Pneumatosis coli K63.89 History of nontraumatic rupture of cerebral aneurysm Z86.79 Autonomic dysfunction G90.9 Decubitus ulcer of calf, unstageable L89.890 Cardiomyopathy I42.9 Quadriplegia G82.50 Sammi rash of groin B37.89 Diarrhea R19.7
[2023-08-04 04:52] LABS: Basophils # (auto) 0.05 K/uL (0.00-0.20); Basophils % (auto) 0.5 %; Eosinophils # (auto) 0.34 K/uL (0.00-0.50); Eosinophils % (auto) 3.2 %; Hematocrit (blood only) 26.2 % (42.0-52.0); Hemoglobin 8.6 g/dl (14.0-18.0); Immature Granulocytes # (auto) 0.08 K/uL (0.01-0.20); Immature Granulocytes % (auto) 0.8 %; Lymphocytes # (auto) 1.83 K/uL (1.20-3.40); Lymphocytes % (auto) 17.4 %; Mean Corpuscular Hemoglobin 30.6 pg (25.0-34.0); Mean Corpuscular Hgb Conc 32.8 g/dL (32.0-36.0); Mean Corpuscular Volume 93.2 fL (80.0-100.0); Mean Platelet Volume 10.8 fL (9.4-12.4); Monocytes # (auto) 0.93 K/uL (0.11-0.59); Monocytes % (auto) 8.8 %; Neutrophils # (auto) 7.28 K/uL (1.40-6.50); Neutrophils % (auto) 69.3 %; Platelet Count 343 K/uL (130-400); RDW Coefficient of Variation 13.7 % (11.5-14.5); RDW Standard Deviation 47.2 fL (36.4-46.3); Red Blood Count 2.81 M/uL (4.70-6.10); White Blood Count 10.51 K/ul (4.8-10.8)
[2023-08-04 05:06] LABS: Anion Gap 8 (3-11); Blood Urea Nitrogen 16 mg/dl (6-23); Calcium 9.2 mg/dl (8.6-10.3); Carbon Dioxide 29 mmol/L (21-32); Chloride 101 mmol/L (98-107); Creatinine Clr Calc Pharmacy 182.2 ml/min; Est GFR (African American) > 150.0 ml/min; Est GFR (Non-African American) > 150.0 ml/min; Glucose 105 mg/dl (70-99(Fasting)); Magnesium 1.9 mg/dl (1.7-2.4); Phosphorus 3.9 mg/dl (2.5-4.9); Potassium 3.6 mmol/L (3.5-5.1); Sodium 138 mmol/L (136-145)
[2023-08-04] MEDS: POTASSIUM CHLORIDE 20 MEQ/15 ML UDC PO STA (06:41)
--- NOTE | 2023-08-04 08:18 | Critical Care Progress Note ---
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 -- Left lung collapse S/p bronchoscopy 08/03/2023 with mucous plugging --Trach dependent respiratory failure Continue with trach care Has size 8 cuffed [facility] culture growing gram-negative bacilli Plan: Chest x-ray from today still shows left lower lobe opacity which has significantly improved compared to prior to [facility]. Will continue monitoring by repeating x-rays. If there is a collapse will consider blocking him again. Addition of CoughAssist will also be thought of Continue with antibiotics for total of 7 days, follow-up sensitivity Add 7% saline as well as Mucomyst nebulized Mild drop in hemoglobin compared to day before yesterday. Hold apixaban. Repeat H&H later today Potassium and magnesium being replaced Okay to be downgrade to medical floor His left lung is completely opacified likely due to severe mucous plugging. Will perform bronchoscopy to clear airway. Consent obtained from patient's mother on the phone. Will send bronch sample for cultures. Continue Zosyn. Obtain MRSA screen. Consider addition of vancomycin if MRSA screen is positive. Continue efforts at mucociliary clearance. Admission and Anticipated Discharge Date Admission Date: July 18, 2023 Subjective Patient seen and examined at bedside. No acute distress, notable symptoms overnight Patient is nonverbal He was saturating 97% on 35% trach collar Review of Systems 2 Review of Systems: Unobtainable due to cognitive status Physical Exam 2 Physical Exam: Constitutional: No acute distress HEENT: PERRLA, positive size 8 trach Respiratory system: Decreased air entry on the left side, no wheeze, no rhonchi, mild crackles bilateral lower lobes CVS: S1-S2 positive, no murmurs or gallops Abdomen: Soft, nontender, nondistended, positive bowel sounds x4 Extremities: +2 pulses bilaterally radialis/ dorsalis pedis, no cyanosis, no edema Neuro: Quadriplegic, not following any commands, spastic extremities Psych: Unable to assess G/U: Positive Silva Skin: no rashes, warm and dry Lymphatic: no cervical or axillary lymphadenopathy Results & Data Results & Data Vital Signs (Past 12 Hours) Vital Signs Temp Pulse Resp BP Pulse Ox 08/04/23 06:00 97/67 L 08/04/23 06:00 87 17 100 08/04/23 05:30 99/62 L 08/04/23 05:30 91 H 19 99 08/04/23 05:00 105/71 08/04/23 05:00 97 H 22 97 08/04/23 04:31 90/55 L 08/04/23 04:31 95 H 15 94 08/04/23 04:15 37.4 C 08/04/23 04:00 95/58 L 08/04/23 04:00 84 18 97 08/04/23 03:30 85 19 97 08/04/23 03:30 93/58 L 08/04/23 03:00 99/58 L 08/04/23 03:00 92 H 24 96 08/04/23 02:30 94 H 23 97 08/04/23 02:30 98/60 L 08/04/23 02:00 106/64 08/04/23 02:00 92 H 24 98 08/04/23 01:30 98/62 L 08/04/23 01:30 93 H 24 97 08/04/23 01:00 97 H 23 96 08/04/23 01:00 97/60 L 08/04/23 00:30 97/56 L 08/04/23 00:30 82 20 98 08/04/23 00:08 37.7 C H 08/04/23 00:00 106/61 08/04/23 00:00 94 H 24 99 08/03/23 23:49 93 H 08/03/23 23:30 108/63 08/03/23 23:30 97 H 20 99 08/03/23 23:00 105/64 08/03/23 23:00 93 H 21 98 08/03/23 22:30 107/68 08/03/23 22:30 99 H 20 97 08/03/23 22:00 37.6 C H 99 H 23 97 08/03/23 22:00 100/69 08/03/23 21:30 108/73 08/03/23 21:30 37.7 C H 100 H 21 97 08/03/23 21:00 108/72 08/03/23 21:00 37.7 C H 106 H 18 97 08/03/23 20:30 37.7 C H 100 H 20 93 08/03/23 20:30 107/69 Laboratory Results 08/04/23 04:14 08/04/23 04:14 Coding Level of Care Code 88138 SUB INP/OBS CARE 3/50MIN Diagnoses Pneumonia involving left lung J18.9 Respiratory failure J96.90 Tracheostomy status Z93.0
--- NOTE | 2023-08-04 08:31 | XRay Report ---
XR chest 1V portable CLINICAL HISTORY: Resp failure TECHNIQUE: Single frontal radiograph of the chest was obtained. Comparison: Comparison is made to chest radiograph 08/03/2023 FINDINGS: Lines and tubes are stable. The cardiomediastinal silhouette is stable. Left airspace opacity is agai n seen with suggestion of volume loss. Blunting of the left costophrenic angle is seen. IMPRESSION: 1. Stable left airspace opacity with volume loss noted. No pneumothorax. 2. Blunting of the left costophrenic angle likely reflects atelectasis, trace effusion cannot be exc luded. ACT 112: Negative or not required by law. Electronically signed by: Luis Denise M.D. 08/04/2023 8:30 AM
[2023-08-04] MEDS: ACETYLCYSTEINE 20% INHAL SOLN 4ML ***DISPENSED BY RESP. INH SCH (10:24)
[2023-08-04] MEDS: MAGNESIUM SULFATE / D5W 1 GM/100 ML BAG IV SCH (10:28)
[2023-08-04 12:13] LABS: Hematocrit (blood only) 26.2 % (42.0-52.0); Hemoglobin 8.6 g/dl (14.0-18.0)
--- NOTE | 2023-08-04 12:36 | Infectious Disease Progress Nt ---
Date of Service August 04, 2023 Assessment & Plan (1) SOB (shortness of breath): (2) Hospital admission due to lack of caregiver: (3) Hospital acquired PNA: (4) Pseudomonas aeruginosa infection: (5) Pneumonia involving left lung: (6) Sacral wound: (7) Chronic osteomyelitis of sacrum: Plan Ry Viveros is a 32-year-old man with history of ruptured cerebral aneurysm s/p craniotomy/hematoma evacuation during hospitalization from Aug - Feb 2023, WHIPPER BEATER shunt, s/p trach and PEG, nonverbal, autonomic dysfunction who presented to [facility] on 07/08/23 due to fevers and worsening sacral ulcer with surrounding cellulitis, recently admitted 07/0807/17/23 at [facility] (BCx + Group C Strep and CoNS, 07/09 BCx + CoNS and Corynebacterium, worsening sacral wound SSTI, treated with a 10-day course of vancomycin + meropenem->pip-tazo (intended EOT 07/19/23). On 07/18 Patient was readmitted d/t lack of caregiver support; 07/18 BCx + CoNS (non-lugdunensis) felt likely to be a contaminant and vancomycin was stopped on 07/25. S/p debridement of sacral ulcer on 07/31 with cx + Providencia stuartii, MSSA, PsA, mixed anaerobes, c/b post-surgical fever and hypoxemic respiratory failure and s/p bronchoscopy on 08/03 with cx growing GNRs. Recently admitted 07/0807/17/23 at [facility]: Found to 07/08 BCx + have Group C Strep and CoNS (2 morphologies), and 07/09 BCx + for CoNS (2 morphologies) and Corynebacterium. The sacral ulcer was present during his admissions in March, however it has been getting progressively worse. Of note, patient had recently completed a course of cefepime x 10 days on 06/28/2023 for a respiratory infection (had 06/15 and 07/06 sputum cultures sent from his rehab which both grew Pseudomonas and Group C Strep, with the Pseudomonas developing resistance). Repeat BCx from 07/10 remain NGTD. Sacral wound cx from 07/11 with probable Pseudomonas, and sputum cx from 07/11 with PsA. Febrile on 07/10 with increased trach secretions which improved. At his prior admission, the source of his fevers and polymicrobial bacteremia appears most likely from sacral wound SSTI, though considered respiratory source as well given fever and increased trach secretions on 07/10. Admission BCx from 07/08 are growing group C strep in 2/4 bottles and CoNS (2 morphologies), and repeat 07/09 BCx with both CoNS (2 morphologies) and Corynebacterium. The Group C Strep bacteremia is likely from SSTI, though also considered respiratory source (given that recent respiratory cx have grown Group C Strep). BCx from both 07/08 and 07/09 with multiple morphologies of CoNS; this is also likely from his sacral wound SSTI though also considered possibilities of contamination and deep-seated endovascular infection/IE. Corynebacterium may similarly represent contamination vs. SSTI. His BCx from 07/10 remain NGTD. TTE from 07/11 without visualized vegetations. It seems the only hardware/prosthetic device he has is a WHIPPER BEATER shunt. Lower suspicion for deep-seated endovascular infection at this time given the polymicrobial bacteremia with multiple morphologies of CoNS. He was recommended to continue vancomycin and meropenem -> pip-tazo to complete a 10-day course for SSTI and polymicrobial bacteremias (intended EOT 07/19/23 however was readmitted and abx extended). However he was admitted again on 07/18 d/t lack of caregiver support; 07/18 BCx + CoNS (non-lugdunensis). 07/19 labs with normal WBC. The 07/18 CoNS was felt to be a contaminant (please see note from Dr. Arreola on 07/22/23) and vancomycin was stopped on 07/25/23. CXR clear without c/f pna and without concern for active infection. Most recently s/p debridement of sacral ulcer on 07/31, noting that tip of coccyx was exposed indicative of a component of sacral osteomyelitis. With 07/31 cx + Providencia stuartii, MSSA, PsA, mixed anaerobes. Would continue wound care inpatient. Continue to discuss long-term plan for wound care, including whether aggressive wound care alone will provide full coverage of his exposed coccyx, and whether additional surgery (e.g., flap) would be indicated and within goals of care. Would only treat chronic sacral osteomyelitis with long-term (likely 6 weeks, at least partly IV) abx if a plan for wound coverage were in place. Also c/b post-surgical fever and hypoxemic respiratory failure c/f HAP. S/p br onchoscopy on 08/03, mucous plugging noted, cx thus far growing GNRS, potentially reflective of PsA as he has grown in the past. Would continue pip-tazo for coverage of the organisms from his sacral wound (Providencia, MSSA, PsA) and possible HAP. Duration of abx will be pending whether will be treating for sacral osteomyelitis vs. SSTI, as delineated above. ID Problem List: 1.Sacral decubitus ulcer with SSTI: CT without evidence of abscess or osteomyelitis. Sacral wound cx from 07/11 with probable Pseudomonas. S/p debridement of sacral ulcer on 07/31, noting that tip of coccyx was exposed indicative of sacral osteomyelitis. 07/31 OR cx + Providencia stuartii, Staphylococcus spp., GNR, mixed anaerobes 2.Group C Strep bacteremia: likely 2/2 SSTI 3.CoNS bacteremia likely 2/2 SSTI. Grew from both 07/08 and 07/09 blood cultures. CoNS bacteremia from 07/18, likely contaminant 4.Corynebacterium bacteremia 5.Fevers 6.Possible tracheitis / increased tracheal secretions 07/10 7.Autonomic dysfunction: per notes, he gets rigid, tachycardic, hyperthermic if he misses his usual medications 8.Transaminitis: resolved 9.Pseudomonas in respiratory cx: on 07/06, after receiving a 10 day course of cefepime through 06/28/23. No respiratory issues this hospitalization, no hypoxia, CXR without consolidations. Has grown Pseudomonas in multiple respiratory culture from Mar, Apr, May 2023. Likely represents colonization. Recommendations: - Continue pip-tazo 4.5 g IV q8h - Continue wound care inpatient. Continue to discuss long-term plan for wound care, including whether aggressive wound care alone will provide full coverage of his exposed coccyx, and whether additional surgery (e.g., flap) would be indicated and within goals of care. Would only treat chronic sacral osteomyelitis with long-term abx if a plan for wound coverage were in place. - F/u 08/03 bronch cx GNRs ID will continue to follow. Ambreen Meredith MD, MHS Infectious Diseases [facility]/ID Connect ID Connect direct line: [phone] Admission and Anticipated Discharge Date Admission Date: July 18, 2023 Subjective This patient recommendation is based on a telemedicine consult request which was completed asynchronously through chart review and information provided by the primary physician. The patient was not seen or examined today. The evaluation is consultative in nature and all patient care and treatment decisions can either be accepted or rejected by the patient's primary hospital-based treating physician using their own independent medical judgment for their patient. Time Spent Reviewing Chart: 31+ minutes - Discussed with hospitalist Dr. Metcalf, still discussing long-term dispo plan (including wound care plan) - Tmax 37.7 overnight, previously on 08/03 with Tmax of 38. Remains on trach collar at 28L - Sacral wound image from wound care on 08/04 reviewed Results & Data Vital Signs (Past 12 Hours) Vital Signs Temp Pulse Pulse Resp BP Pulse Ox O2 Del Method 08/04/23 12:00 105/66 08/04/23 12:00 97 H 18 96 Trach Collar 08/04/23 11:30 99/63 L 08/04/23 11:30 99 H 17 95 08/04/23 11:04 Trach Collar 08/04/23 11:00 96/68 L 08/04/23 11:00 94 H 18 93 08/04/23 10:33 96 H 20 96 Trach Collar 08/04/23 10:30 98 H 18 97 08/04/23 10:30 104/69 08/04/23 10:00 91/57 L 08/04/23 10:00 89 18 94 08/04/23 09:30 86 18 97 08/04/23 09:30 94/60 L 08/04/23 09:00 97/64 L 08/04/23 09:00 86 17 98 08/04/23 08:30 91 H 19 97 08/04/23 08:30 98/63 L 08/04/23 08:00 100/60 08/04/23 08:00 94 H 18 97 Trach Collar 08/04/23 07:30 99/70 L 08/04/23 07:30 97 H 17 97 08/04/23 07:00 108/74 08/04/23 07:00 93 H 21 96 08/04/23 06:00 97/67 L 08/04/23 06:00 87 17 100 08/04/23 05:30 99/62 L 08/04/23 05:30 91 H 19 99 08/04/23 05:00 105/71 08/04/23 05:00 97 H 22 97 08/04/23 04:31 90/55 L 08/04/23 04:31 95 H 15 94 08/04/23 04:15 37.4 C 08/04/23 04:00 95/58 L 08/04/23 04:00 84 18 97 08/04/23 03:30 85 19 97 08/04/23 03:30 93/58 L 08/04/23 03:00 99/58 L 08/04/23 03:00 92 H 24 96 08/04/23 02:30 94 H 23 97 08/04/23 02:30 98/60 L 08/04/23 02:00 106/64 08/04/23 02:00 92 H 24 98 08/04/23 01:30 98/62 L 08/04/23 01:30 93 H 24 97 08/04/23 01:00 97 H 23 96 08/04/23 01:00 97/60 L O2 Flow Rate FiO2 08/04/23 12:00 08/04/23 12:00 28 08/04/23 11:30 08/04/23 11:30 08/04/23 11:04 28 08/04/23 11:00 08/04/23 11:00 08/04/23 10:33 28 08/04/23 10:30 08/04/23 10:30 08/04/23 10:00 08/04/23 10:00 08/04/23 09:30 08/04/23 09:30 08/04/23 09:00 08/04/23 09:00 08/04/23 08:30 08/04/23 08:30 08/04/23 08:00 08/04/23 08:00 28 08/04/23 07:30 08/04/23 07:30 08/04/23 07:00 08/04/23 07:00 08/04/23 06:00 08/04/23 06:00 08/04/23 05:30 08/04/23 05:30 08/04/23 05:00 08/04/23 05:00 08/04/23 04:31 08/04/23 04:31 08/04/23 04:15 08/04/23 04:00 08/04/23 04:00 08/04/23 03:30 08/04/23 03:30 08/04/23 03:00 08/04/23 03:00 08/04/23 02:30 08/04/23 02:30 08/04/23 02:00 08/04/23 02:00 08/04/23 01:30 08/04/23 01:30 08/04/23 01:00 08/04/23 01:00 Diagnostic Findings Diagnostics: 08/04 CXR 1. Stable left airspace opacity with volume loss noted. No pneumothorax. 2. Blunting of the left costophrenic angle likely reflects atelectasis, trace effusion cannot be excluded. 07/31 OR report Sharp debridement with Metzenbaum scissors and curette. Heavy slough in undermined superior aspect of the wound was excised and sent for culture. Tissue debrided was devitalized skin, slough from the base of the wound. The wound extends to the most inferior tip of the coccyx at one small area. There is hypergranulation tissue just superior to this area that bled. Bleeding controlled with cautery and pressure. The wound was copiously and gently irrigated with Saline infused with Vancomycin. The wound was dressed with a Kerlix which was inserted in the undermined area superior aspect. The area was covered with an ABD and secured with tape. There was a small area of skin excoriation left lateral to the wound that was covered with xeroform to the excoriated tissue only, covered with gauze. The patient tolerated the procedure well. He was awakened from anesthesia and transferred to recovery in stable condition. 07/11 TTE: No visualized vegetation. Micro Summary: 08/03 Bronch: Cx GNRs; rare GPCs, mod WBCs 07/31 Sacral OR wound: Providencia stuartii (S-pip/tazo, Bactrim; R-cipro/levo), MSSA, Pseudomonas aeruginosa (R-meropenem, otherwise S), high counts mixed anaerobes 07/23 BCx: NGTD 07/18 BCx: +CoNS (non-lugdunensis) Old micro: 07/11 Wound Sacrum Cx: PsA (R-levofloxacin/ciprofloxacin; I-cefepime/ceftazidime; S-pip-tazo/meropenem) 07/11 Sputum Cx trach: PsA (hollis-S) 07/10 BCx x2: NG 07/09 BCx x2: CoNS (2 morphologies) in 2/4 bottles (BCID + Staph epi); Corynebacterium in 1/4 bottles 07/08 BCx x2: Group C Strep in 2/4 bottles, CoNS (2 morphologies, both R-oxa) in 1/4 bottles (non-lugdenensis) 07/08 MRSA nares: neg 07/06 Sputum cx: PsA (I cefepime, cipro, levo, pip/tazo. R ceftaz. S gent, mery, tobra), Group C Strep 06/15 Sputum cx: PsA (I cipro, levo. Otherwise S), Group C Strep Antibiotic Summary: Pip-tazo 07/08 - 07/09, 07/15 07/19, 2/ present) Prior vancomycin intraoperative irrigation 07/31 Vanc 07/08 - 07/09, 07/1007/25/23 Meropenem 07/11 07/15 Ceftriaxone 2 g 07/09 07/10 Cefepime ~06/19 - 06/28 (per report)
--- NOTE | 2023-08-04 16:20 | Hospitalist Progress Note ---
Date of Service August 04, 2023 Assessment & Plan (1) Pneumonia involving left lung: Plan: Had fever, persistent hypoxia worse than baseline following debridement surgery, acute hypoxic respiratory failure, CXR 08/03 entire L lung field opacified concerning for pneumonia, mucus plugging -lungs are colonized with pseudomonas -consulted Dr. Blancas who performed bronchoscopy 08/03 - large mucus plug suctioned from left side, airways with lots of dynamic collapse. CXR film 08/04 reviewed - BRIDGET has cleared/reexpanded, mid and basilar consolidation persists -saline nebs ordered by business process specialist -chest PT ordered -await cultures -continue pip-tazo -consulted ID, reviewed recs in note -follow with serial CXR -oxygenation improved 28% TM today - transfer out of ICU (2) Decubitus ulcer of sacral region, stage 4: Plan: Present on admission, worsened despite pressure offloading, frequent turning, wound care, nutrition Debrided in OR / Tip of coccyx was exposed, probes to bone c/w sacral osteomyelitis. Tissue sent for culture - gram stain/culture with GNR, few staph, Providencia (S to CTX, mery, pip-tazo), anaerobes so far -continue wound care, continue pip-tazo pending culture results, based on previous wound cultures that had pseudomonas -wound vac placed 08/01, observed vac change 08/04 -consulted ID, reviewed recs -anticipate prolonged hospitalization given lack of placement options (3) Tracheostomy status: Plan: colonized with pseudomonas cont local trach care see above (4) Gram-positive bacteremia: Plan: Recent infectious issues: SSTI sacral decubitus ulcer, CT without osteomyelitis, pseudomonas on culture, treated with pip-tazo x 10 days. Group C strep bacteremia - source thought 2nd to sacral wound - zosyn given. Coag neg staph bacteremia - contaminant vs bacteremia - completed 10+ day vancomycin course. Corynebacterium bacteremia - completed 10-day vancomycin course. Sputum colonized with pseudomonas, possible tracheitis with increased secretions 07/10, treated with pip-tazo. Pip-tazo for sacral wound started 08/01 (5) Severe protein-calorie malnutrition: Plan: BMI 18, diffuse sarcopenia / muscle wasting present continue PEG tube feedings as previous with peptamen albumin was normal at 3.7 on 07/19/23, weight stable around 50 kg -repeat albumin next labs (6) History of DVT (deep vein thrombosis): Plan: October 2022 -has been on halfway apixaban, resumed 08/03 then held 08/04 for Hct drop, stable on recheck midday. possibly fluctuation from volume shifts hct at 26% not too different from recent Hct 28% (7) Pneumatosis coli: Plan: Evaluated by General surgery last admission since no surgical abdomen/peritonitis/symptoms no Rx recommended during that admission etiology of the CT findings was uncertain abdominal exam remains benign / soft, tolerating feedings well (8) History of nontraumatic rupture of cerebral aneurysm: Plan: Patient is nonverbal at baseline with chronic contractures in all 4 extremities Acquired quadriple[address] head shows encephalomalacia and good shunt placement Ry suffered a ruptured brain aneurysm and SAH 08/2022 Had craniotomy and evacuation. skull fragment was reimplanted in November per family. Had a BUNG REMOVER shunt placement at [facility]. Has history of severe autonomic dysfunction / paroxysmal sympathetic hyperactivity / autonomic storm which is controlled on medications and has the potential to be confused with sepsis. Cont complex regimen of meds for this issue (dantrolene, bromocriptine, scop patch, etc) (9) Autonomic dysfunction: Plan: Continue dantrolene and bromocriptine Continue gabapentin and baclofen for spasticity -avoid holding these meds when "npo" Has intermittent low grade temp elevation several times a week historically (10) Decubitus ulcer of calf, unstageable: Plan: Eschar present with no surrounding cellulitis Continue wound care as advised by wound care team -has nearly healed as of 08/04 (11) Cardiomyopathy: Plan: last echo 07/11/23 - low normal EF 50-55% compensated cont beta joon (12) Quadriplegia: Plan: 2nd to above (13) Sammi rash of groin: Plan: cont miconazole powder TID improved (14) Diarrhea: Plan: resolved previously had rectal tube - now removed c diff neg on 07/18/23 became constipated on reduced miralax back on his usual bowel regimen now diarrhea once again with rectal tube Plan updated Ry's mother Crystal by phone afternoon 08/03 regarding bronchoscopy, discussed overall poor prognosis and my concerns that he continues to have frequent hospitalizations with infections, worsening decubitus, persistently poor neurologic status approaching a year from his hemorrhage. Her perspective is that he has had a lot of improvement since last spring and that the complications he has experienced are the result of poor care. dispo - numerous referrals made by social work to various SNFs; he will not be returning to [facility] after this admission Admission and Anticipated Discharge Date Admission Date: July 18, 2023 Subjective nonverbal L sided opacity improved on CXR seen with wound nurses today Physical Exam 2 Physical Exam: PHYSICAL EXAMINATION Last 24h vital signs reviewed, see documentation in flowsheet General: eyes open HEENT: trach site cdi Lungs: clear anteriorly, posterior exam difficult Heart: Regular rate and rhythm, no murmurs. No JVD Abdomen: Soft, nondistended. Bowel sounds present. G-tube site mid abdomen. Rectal tube with green liquid stool Extremities: Warm, dry, well-perfused. No extremity edema. diffuse sarcopenia present he has flexion contractures of both wrists, right elbow, bilateral lower extremities mildly flexed, high tone throughout unchanged wound on calf has healed sacral decubitus probes to bone, some undermining cranial direction, some skin breakdown surrounding wound, not bleeding, see photo from today Neuro: eyes open, did not track me visually, RNs report he pushes to roll onto his back during wound care, RUE>LUE and bilateral LE contractures, severe diffuse sarcopenia Psych: unable to assess, no agitation Results & Data Results & Data Vital Signs (Past 12 Hours) Vital Signs Temp Pulse Pulse Resp BP Pulse Ox O2 Del Method 08/04/23 12:00 36.6 C 08/04/23 12:00 105/66 08/04/23 12:00 97 H 18 96 Trach Collar 08/04/23 11:30 99/63 L 08/04/23 11:30 99 H 17 95 08/04/23 11:04 Trach Collar 08/04/23 11:00 96/68 L 08/04/23 11:00 94 H 18 93 08/04/23 10:33 96 H 20 96 Trach Collar 08/04/23 10:30 98 H 18 97 08/04/23 10:30 104/69 08/04/23 10:00 91/57 L 08/04/23 10:00 89 18 94 08/04/23 09:30 86 18 97 08/04/23 09:30 94/60 L 08/04/23 09:00 97/64 L 08/04/23 09:00 86 17 98 08/04/23 08:30 91 H 19 97 08/04/23 08:30 98/63 L 08/04/23 08:00 100/60 08/04/23 08:00 94 H 18 97 Trach Collar 08/04/23 07:30 99/70 L 08/04/23 07:30 97 H 17 97 08/04/23 07:00 108/74 08/04/23 07:00 93 H 21 96 08/04/23 06:00 97/67 L 08/04/23 06:00 87 17 100 08/04/23 05:30 99/62 L 08/04/23 05:30 91 H 19 99 08/04/23 05:00 105/71 08/04/23 05:00 97 H 22 97 08/04/23 04:31 90/55 L 08/04/23 04:31 95 H 15 94 08/04/23 04:15 37.4 C O2 Flow Rate FiO2 08/04/23 12:00 08/04/23 12:00 08/04/23 12:00 28 08/04/23 11:30 08/04/23 11:30 08/04/23 11:04 28 08/04/23 11:00 08/04/23 11:00 08/04/23 10:33 28 08/04/23 10:30 08/04/23 10:30 08/04/23 10:00 08/04/23 10:00 08/04/23 09:30 08/04/23 09:30 08/04/23 09:00 08/04/23 09:00 08/04/23 08:30 08/04/23 08:30 08/04/23 08:00 08/04/23 08:00 28 08/04/23 07:30 08/04/23 07:30 08/04/23 07:00 08/04/23 07:00 08/04/23 06:00 08/04/23 06:00 08/04/23 05:30 08/04/23 05:30 08/04/23 05:00 08/04/23 05:00 08/04/23 04:31 08/04/23 04:31 08/04/23 04:15 Laboratory Results 08/04/23 11:56 08/04/23 04:14 PG Care Time/CCT Total # of Minutes Spent Total Time Spent with Patient: Total time spent is greater than 50% in coordination of care (as documented) at patient's floor/unit and/or counseling patient: Coding Level of Care Code 83622 SUB INP/OBS CARE 3/50MIN Diagnoses Pneumonia involving left lung J18.9 Decubitus ulcer of sacral region, stage 4 L89.154 Tracheostomy status Z93.0 Gram-positive bacteremia R78.81 Severe protein-calorie malnutrition E43 History of DVT (deep vein thrombosis) Z86.718 Pneumatosis coli K63.89 History of nontraumatic rupture of cerebral aneurysm Z86.79 Autonomic dysfunction G90.9 Decubitus ulcer of calf, unstageable L89.890 Cardiomyopathy I42.9 Quadriplegia G82.50 Sammi rash of groin B37.89 Diarrhea R19.7
[2023-08-04] MEDS: SODIUM CHLOR 7% 4 ML NEB NEB SCH (19:46)
[2023-08-05 06:58] LABS: Basophils # (auto) 0.06 K/uL (0.00-0.20); Basophils % (auto) 0.6 %; Eosinophils % (auto) 4.7 %; Hematocrit (blood only) 27.6 % (42.0-52.0); Hemoglobin 8.7 g/dl (14.0-18.0); Immature Granulocytes # (auto) 0.08 K/uL (0.01-0.20); Immature Granulocytes % (auto) 0.7 %; Lymphocytes # (auto) 2.01 K/uL (1.20-3.40); Lymphocytes % (auto) 18.8 %; Mean Corpuscular Hgb Conc 31.5 g/dL (32.0-36.0); Mean Corpuscular Volume 95.2 fL (80.0-100.0); Mean Platelet Volume 10.8 fL (9.4-12.4); Monocytes # (auto) 1.06 K/uL (0.11-0.59); Monocytes % (auto) 9.9 %; Neutrophils # (auto) 6.99 K/uL (1.40-6.50); Neutrophils % (auto) 65.3 %; Platelet Count 394 K/uL (130-400); RDW Coefficient of Variation 14.1 % (11.5-14.5)
[2023-08-05 07:26] LABS: Anion Gap 10 (3-11); BUN Creatinine Ratio 46.9 (10-20); Blood Urea Nitrogen 15 mg/dl (6-23); Calcium 9.2 mg/dl (8.6-10.3); Carbon Dioxide 27 mmol/L (21-32); Chloride 103 mmol/L (98-107); Creatinine Clr Calc Pharmacy 234.8 ml/min; Est GFR (African American) > 150.0 ml/min; Est GFR (Non-African American) > 150.0 ml/min; Glucose 103 mg/dl (70-99(Fasting)); Phosphorus 3.6 mg/dl (2.5-4.9); Potassium 4.1 mmol/L (3.5-5.1); Sodium 140 mmol/L (136-145)
--- NOTE | 2023-08-05 07:30 | XRay Report ---
XR chest 1V portable HISTORY: Respiratory failure. Follow-up. COMPARISON: Chest 08/04/2023. FINDINGS: No pneumothorax. The heart is normal in size. Tracheostomy tube is in good position. The ri ght lung is clear. Left pleural effusion and left lung airspace opacities persist. No evidence for pu lmonary edema. There is a left-sided ventriculoperitoneal shunt which terminates in the left upper qu adrant. No acute fractures identified. IMPRESSION: 1. Stable lines and tubes. 2. Small left pleural effusion and left lung airspace opacities persist. This favors a pneumonia. ACT 112: Negative or not required by law. Electronically signed by: Víctor Cox M.D. 08/05/2023 7:28 AM
--- NOTE | 2023-08-05 07:40 | Pulmonology Progress Note ---
Date of Service August 05, 2023 Assessment & Plan (1) Pneumonia involving left lung: (2) Respiratory failure: (3) Tracheostomy status: Plan 32-year-old complex male with past medical history of cardiomyopathy, PEG tube, ruptured cerebral aneurysm resulting in chronic trach dependence and and nonverbal state who is presenting with severe left-sided pneumonia. -- Left lung collapse S/p bronchoscopy 08/03/2023 with mucous plugging Bron culture growing Pseudomonas which is pansensitive except for meropenem --Trach dependent respiratory failure Continue with trach care Has size 8 cuffed Bronc culture growing Pseudomonas Plan: Chest x-ray from today does not show any significant change compared to yesterday, probable more atelectasis of the left lower lobe. Will repeat a chest x-ray tomorrow. If there is persistent worsening of the left lower lobe opacity then bronchoscopy to clear the left lower lobe will be considered I will add CoughAssist and DC chest vest Change Zosyn to cefepime and complete the course for total of 10 days Continue with 7% saline as well as Mucomyst nebulized Case discussed with pharmacy and RT Please note the above document was generated using voice recognition software. It may contain grammatical, syntax or spelling errors.Any formal questions or concerns about the content, text or information contained within the body of this dictation should be directly addressed to the provider for clarification. Admission and Anticipated Discharge Date Admission Date: July 18, 2023 Review of Systems Review of Systems: Unobtainable due to cognitive status Physical Exam Physical Exam: Constitutional: No acute distress HEENT: PERRLA, positive size 8 trach Respiratory system: Decreased air entry on the left side, no wheeze, no rhonchi, mild crackles bilateral lower lobes CVS: S1-S2 positive, no murmurs or gallops Abdomen: Soft, nontender, nondistended, positive bowel sounds x4 Extremities: +2 pulses bilaterally radialis/ dorsalis pedis, no cyanosis, no edema Neuro: Quadriplegic, not following any commands, spastic extremities Psych: Unable to assess G/U: Positive Silva Skin: no rashes, warm and dry Lymphatic: no cervical or axillary lymphadenopathy Results & Data Results & Data Vital Signs (Past 12 Hours) Vital Signs Temp Pulse Pulse Resp BP Pulse Ox O2 Del Method 08/05/23 07:03 92 H 15 97 Trach Collar 08/05/23 03:46 37.0 C 109 H 18 115/78 96 Trach Collar 08/05/23 00:00 113 H 08/05/23 00:00 Trach Collar 08/04/23 23:23 37.0 C 84 16 96/63 L 93 Trach Collar 08/04/23 20:46 37.3 C 113 H 20 117/78 97 Trach Collar 08/04/23 19:46 92 H 20 98 Trach Collar O2 Flow Rate FiO2 08/05/23 07:03 6 28 08/05/23 03:46 6 08/05/23 00:00 08/05/23 00:00 28 08/04/23 23:23 6 08/04/23 20:46 6 08/04/23 19:46 6 28 PG Care Time/CCT Total # of Minutes Spent Total Time Spent with Patient: Total time spent is greater than 50% in coordination of care (as documented) at patient's floor/unit and/or counseling patient: Coding Level of Care Code 43105 SUB INP/OBS CARE 3/50MIN Diagnoses Pneumonia involving left lung J18.9 Respiratory failure J96.90 Tracheostomy status Z93.0
--- NOTE | 2023-08-05 09:30 | Infectious Disease Progress Nt ---
Date of Service August 05, 2023 Assessment & Plan (1) SOB (shortness of breath): (2) Hospital admission due to lack of caregiver: (3) Hospital acquired PNA: (4) Pseudomonas aeruginosa infection: (5) Pneumonia involving left lung: (6) Sacral wound: (7) Chronic osteomyelitis of sacrum: Plan Ry Viveros is a 32-year-old man with history of ruptured cerebral aneurysm s/p craniotomy/hematoma evacuation during hospitalization from Aug - Feb 2023, CERTIFIED DENTAL ASSISTANT shunt, s/p trach and PEG, nonverbal, autonomic dysfunction who presented to [facility] on 07/08/23 due to fevers and worsening sacral ulcer with surrounding cellulitis, recently admitted 07/0807/17/23 at [facility] (BCx + Group C Strep and CoNS, 07/09 BCx + CoNS and Corynebacterium, worsening sacral wound SSTI, treated with a 10-day course of vancomycin + meropenem->pip-tazo (intended EOT 07/19/23). On 07/18 Patient was readmitted d/t lack of caregiver support; 07/18 BCx + CoNS (non-lugdunensis) felt likely to be a contaminant and vancomycin was stopped on 07/25. S/p debridement of sacral ulcer on 07/31 with cx + Providencia stuartii, MSSA, PsA, mixed anaerobes, c/b post-surgical fever and hypoxemic respiratory failure and s/p bronchoscopy on 08/03 with cx growing PsA. The sacral ulcer was present during his admissions in March, however it has been getting progressively worse. Recently admitted 07/0807/17/23 at [facility]: Found to 07/08 BCx + have Group C Strep and CoNS (2 morphologies), and 07/09 BCx + for CoNS (2 morphologies) and Corynebacterium. [place] to be from SSTI vs. contamination. Sacral wound cx from 07/11 with Pseudomonas, and sputum cx from 07/11 with PsA. His BCx from 07/10 NG. TTE from 07/11 without visualized vegetations. It seems the only hardware/prosthetic device he has is a CERTIFIED DENTAL ASSISTANT shunt. Lower suspicion for deep-seated endovascular infection at this time given the polymicrobial bacteremia with multiple morphologies of CoNS. He was recommended to continue vancomycin and meropenem -> pip-tazo to complete a 10-day course for SSTI and polymicrobial bacteremias (intended EOT 07/19/23 however was readmitted and abx extended). He was admitted again on 07/18 d/t lack of caregiver support; 07/18 BCx + CoNS (non-lugdunensis). 07/19 labs with normal WBC. The 07/18 CoNS was felt to be a contaminant (please see note from Dr. Arreola on 07/22/23) and vancomycin was stopped on 07/25/23. Most recently s/p debridement of sacral ulcer on 07/31, noting that tip of coccyx was exposed indicative of a component of sacral osteomyelitis. With 07/31 cx + Providencia stuartii, MSSA, PsA, mixed anaerobes. Would continue wound care inpatient. Continue to discuss long-term plan for wound care, including whether aggressive wound care alone will provide full coverage of his exposed coccyx, and whether additional surgery (e.g., flap) would be indicated and within goals of care. Would only treat chronic sacral osteomyelitis with long-term (likely 6 weeks, at least partly IV) abx if a plan for wound coverage were in place. Currently with sacral wound vac. Also c/b post-surgical fever and hypoxemic respiratory failure c/f HAP. S/p bronchoscopy on 08/03, mucous plugging noted, also found to have L lung collapse/atelectasis. Bronch Cx growing PsA which has been isolated in the past. Would continue pip-tazo for coverage of the organisms from his sacral wound (Providencia, MSSA, PsA) and possible PsA HAP. Duration of abx will be pending whether will be treating for sacral osteomyelitis vs. SSTI, as delineated above. ID Problem List: 1.Sacral decubitus ulcer with SSTI: CT without evidence of abscess or osteomyelitis. Sacral wound cx from 07/11 with probable Pseudomonas. S/p debridement of sacral ulcer on 07/31, noting that tip of coccyx was exposed indicative of sacral osteomyelitis. 07/31 OR cx + Providencia stuartii, Staphylococcus spp., Pseudomonas aeruginosa, mixed anaerobes 2.Group C Strep bacteremia: likely 2/2 SSTI 3.CoNS bacteremia likely 2/2 SSTI. Grew from both 07/08 and 07/09 blood cultures. CoNS bacteremia from 07/18, likely contaminant 4.Corynebacterium bacteremia 5.Fevers 6.Possible tracheitis / increased tracheal secretions 07/10 7.Autonomic dysfunction: per notes, he gets rigid, tachycardic, hyperthermic if he misses his usual medications 8.Transaminitis: resolved 9.Possible HAP, L lung atelectasis and mucous plugging, bronch cx from 08/03 growing Pseudomonas 10.Pseudomonas in respiratory cx: on 07/06, after receiving a 10 day course of cefepime through 06/28/23. No respiratory issues this hospitalization, no hypoxia, CXR without consolidations. Has grown Pseudomonas in multiple respiratory culture from Mar, Apr, May 2023. Recommendations: - Continue pip-tazo 4.5 g IV q8h - Continue wound care inpatient. Continue to discuss long-term plan for wound care, including whether aggressive wound care alone will provide full coverage o f his exposed coccyx, and whether additional surgery (e.g., flap) would be indicated and within goals of care. Would only treat chronic sacral osteomyelitis with long-term abx if a plan for wound coverage were in place. ID will continue to follow. Ambreen Meredith MD, MHS Infectious Diseases [facility] ID Connect direct line: [phone] Admission and Anticipated Discharge Date Admission Date: July 18, 2023 Subjective Subsequent visit was provided via telemedicine using two-way real-time interactive telecommunication between the patient and the telemedicine provider. For the duration of the visit, the provider was performing the assessment from a different facility than the patient. This includesuse of bluetooth stethoscope forauscultationperformed by the telepresenter that the telemedicine provider can hear if described in the physical exam. Supervisor [employer] contact information: Please call [facility] Call Center [phone]. (Phone Number For Physician Use Only) After establishing a telemedicine visit, patient was: Patient/authorized rep acknowledged consent and understanding Time Spent with Patient: Subsequent => 35 min - Afebrile, WBC 10.7 - Wound vac placed on 08/01 and vac changed on 08/04 - Back on trach collar 6L Physical Exam Physical Exam: Exam obtained with aid of in-person telepresenter. General: Sleeping, chronically ill-appearing, no acute distress HEENT: Conjunctivae non-injected, sclerae anicteric, MMM, OP clear. Resp: Trach site c/d/i. Trach collar in place Abd: Soft, nondistended. : Silva in place. Ext: L heel and R heel with mild erythema Skin: Sacral wound with vac in place. Neuro: Nonverbal, contractures. Psych: Unable to assess Results & Data Vital Signs (Past 12 Hours) Vital Signs Temp Pulse Pulse Resp BP BP Pulse Ox 08/05/23 08:05 36.6 C 79 16 97/67 L 100 08/05/23 07:03 92 H 15 97 08/05/23 03:46 37.0 C 109 H 18 115/78 96 08/05/23 00:00 113 H 08/05/23 00:00 08/04/23 23:23 37.0 C 84 16 96/63 L 93 O2 Del Method O2 Flow Rate FiO2 08/05/23 08:05 Trach Collar 6 08/05/23 07:03 Trach Collar 6 28 08/05/23 03:46 Trach Collar 6 08/05/23 00:00 08/05/23 00:00 Trach Collar 28 08/04/23 23:23 Trach Collar 6 Diagnostic Findings Diagnostics: 08/05 CXR 1. Stable lines and tubes. 2. Small left pleural effusion and left lung airspace opacities persist. This favors a pneumonia. 08/04 CXR 1. Stable left airspace opacity with volume loss noted. No pneumothorax. 2. Blunting of the left costophrenic angle likely reflects atelectasis, trace effusion cannot be excluded. 07/31 OR report Sharp debridement with Metzenbaum scissors and curette. Heavy slough in undermined superior aspect of the wound was excised and sent for culture. Tissue debrided was devitalized skin, slough from the base of the wound. The wound extends to the most inferior tip of the coccyx at one small area. There is hypergranulation tissue just superior to this area that bled. Bleeding controlled with cautery and pressure. The wound was copiously and gently irrigated with Saline infused with Vancomycin. The wound was dressed with a Kerlix which was inserted in the undermined area superior aspect. The area was covered with an ABD and secured with tape. There was a small area of skin excoriation left lateral to the wound that was covered with xeroform to the excoriated tissue only, covered with gauze. The patient tolerated the procedure well. He was awakened from anesthesia and transferred to recovery in stable condition. 07/11 TTE: No visualized vegetation. Micro Summary: 08/03 Bronch: Cx PsA (S-pip-tazo/cefepime/cipro/levo/ceftaz; R-meropenem); rare GPCs, mod WBCs 07/31 Sacral OR wound: Providencia stuartii (S-pip/tazo, Bactrim; R-cipro/levo), MSSA, Pseudomonas aeruginosa (R-meropenem, otherwise S), high counts mixed anaerobes 07/23 BCx: NGTD 07/18 BCx: +CoNS (non-lugdunensis) Old micro: 07/11 Wound Sacrum Cx: PsA (R-levofloxacin/ciprofloxacin; I-cefepime/ceftazidime; S-pip-tazo/meropenem) 07/11 Sputum Cx trach: PsA (hollis-S) 07/10 BCx x2: NG 07/09 BCx x2: CoNS (2 morphologies) in 2/4 bottles (BCID + Staph epi); Corynebacterium in 1/4 bottles 07/08 BCx x2: Group C Strep in 2/4 bottles, CoNS (2 morphologies, both R-oxa) in 1/4 bottles (non-lugdenensis) 07/08 MRSA nares: neg 07/06 Sputum cx: PsA (I cefepime, cipro, levo, pip/tazo. R ceftaz. S gent, mery, tobra), Group C Strep 06/15 Sputum cx: PsA (I cipro, levo. Otherwise S), Group C Strep Antibiotic Summary: Pip-tazo 07/08 - 07/09, 07/15 07/19, 2/ present) Prior vancomycin intraoperative irrigation 07/31 Vanc 07/08 - 07/09, 07/1007/25/23 Meropenem 07/11 07/15 Ceftriaxone 2 g 07/09 07/10 Cefepime ~06/19 - 06/28 (per report)
[2023-08-05] MEDS: POLYETHYLENE (MIRALAX) 17 GM PACK PEG SCH (11:21)
--- NOTE | 2023-08-05 15:05 | Hospitalist Progress Note ---
Date of Service August 05, 2023 Assessment & Plan (1) Decubitus ulcer of sacral region, stage 4: Plan: s/p debridement in the OR by Dr Issa on 07/31/23 intra-op culture with MSSA, pseudomonas, and providencia zosyn IV has been utilized for coverage of the above pathogens ID following Wound vac placed on 08/01 Vac then changed on 08/04 There is exposed coccyx on examination rectal tube placed due to ongoing diarrhea c diff negative on 08/03 ongoing diarrhea will pose a large barrier to effective wound healing due to contamination, etc (2) Hospital acquired PNA: Plan: 08/01 - cxr with worsening infiltrates on left 08/03 - collapse LLL 08/03 - bronchoscopy by Dr Blancas with mucous plugging found in the left-sided bronchial tree s/p removal; cultures sent; pseudomonas resulted has been treated with zosyn, then changed to cefepime today remains on aggressive pulmonary toilet for this issue peak O2 requirement 07/31 - 08/01 -- 8-10 liters O2 cont mucomyst nebs BID cont saline nebs BID (3) Fever: Plan: either 2nd to infected sacral decubitus ulcer vs left-sided pneumonia/collapse vs autonomic storming vs combination of factors highest temp of 38.3 recorded on 08/02 temps 38 or lower since then cont to follow (4) Gram-positive bacteremia: Plan: Potential culprits - SSTI sacral decubitus ulcer Group C strep bacteremia - source thought 2nd to sacral wound Coag neg staph bacteremia - contaminant vs bacteremia Corynebacterium bacteremia Sputum colonized with pseudomonas 08/03 bronch cultures with pseudomonas once again due to persistent LLL infiltrates Dr Lock from pulmonary advising changing zosyn to cefepime IV the cefepime should cover all recent pathogens from the sacrum as well appreciate ongoing ID support appreciate pulmonary assistance (5) Transaminitis: Plan: resolved (6) Severe protein-calorie malnutrition: Plan: BMI 18, diffuse sarcopenia / muscle wasting present continue PEG tube feedings as previous with peptamen albumin was normal at 3.7 on 07/19/23 (7) History of DVT (deep vein thrombosis): Plan: Continue Eliquis BID (8) Pneumatosis coli: Plan: Evaluated by General surgery last admission (June 2023) since no surgical abdomen/peritonitis/symptoms no Rx recommended during that admission etiology of the CT findings was uncertain abdominal exam remains benign / soft (9) History of nontraumatic rupture of cerebral aneurysm: Plan: Patient is nonverbal at baseline with chronic contractures in all 4 extremities Acquired quadriple[address] head shows encephalomalacia and good shunt placement Ry suffered a ruptured brain aneurysm and SAH 08/2022 Had craniotomy and evacuation. skull fragment was reimplanted in November per family. Had a BOTTLE GAUGER shunt placement at [facility]. Has history of severe autonomic dysfunction / paroxysmal sympathetic hyperactivity / autonomic storm which is controlled on medications and has the potential to be confused with sepsis. Cont complex regimen of meds for this issue (dantrolene, scop patch, etc) (10) Autonomic dysfunction: Plan: Continue dantrolene and bromocriptine Continue gabapentin and baclofen for spasticity (11) Decubitus ulcer of calf, unstageable: Plan: Eschar present with no surrounding cellulitis Continue wound care as advised by wound care team (12) Cardiomyopathy: Plan: last echo 07/11/23 - low normal EF 50-55% remains compensated cont beta joon does not require any diuretic at this time (13) Tracheostomy status: Plan: colonized with pseudomonas cont local trach care o2 requirement back to baseline of 6 L see above re: Left-sided infiltrates (14) 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 (15) Quadriplegia: Plan: 2nd to above (16) Sammi rash of groin: Plan: cont miconazole powder TID much improved (17) Diarrhea: Plan: had resolved previously had rectal tube - was removed - but then placed back again on 08/04 c diff neg on 07/18/23 and again on 08/03/23 Plan dispo - numerous referrals made by social work to various SNFs; he will not be returning to [facility] after this admission Admission and Anticipated Discharge Date Admission Date: July 18, 2023 Subjective events of last 24 hours noted is on 6 L O2 via trach collar rectal tube in place is draining stool, but had dislodgement of the tube with significant soiling of the bedsheets earlier today Review of Systems Review of Systems: Unobtainable due to cognitive status Physical Exam Physical Exam: gen - very thin, NAD, generalized muscle wasting - no change from prior exams eyes - nystagmus present, eye blinking present; no purposeful movements head - deformity right side from prior craniotomy neck - no JVD; trach in place - clean heart - RRR, s1 s2, no murmur lungs - CTA b/l although there are decreased BS Left base abd - soft NT ND BS+; PEG tube site where the tube meets the skin is clean ext - trace edema, pulses 2+ b/l neuro - contractures all extremities Results & Data Results & Data Vital Signs (Past 12 Hours) Vital Signs Temp Pulse Pulse Resp BP BP Pulse Ox 08/05/23 11:10 36.4 C L 94 H 16 108/75 96 08/05/23 08:05 36.6 C 79 16 97/67 L 100 08/05/23 08:00 08/05/23 08:00 92 H 08/05/23 07:03 92 H 15 97 08/05/23 03:46 37.0 C 109 H 18 115/78 96 O2 Del Method O2 Flow Rate FiO2 08/05/23 11:10 Trach Collar 7 28 08/05/23 08:05 Trach Collar 6 08/05/23 08:00 Trach Collar 6 28 08/05/23 08:00 08/05/23 07:03 Trach Collar 6 28 08/05/23 03:46 Trach Collar 6 Laboratory Results Laboratory Results - last 24 hr 08/05/23 08/05/23 08/05/23 05:39 13:41 18:08 WBC 10.70 RBC 2.90 L Hgb 8.7 L Hct 27.6 L MCV 95.2 MCH 30.0 MCHC 31.5 L RDW Std Deviation 49.0 H RDW Coeff of Dario 14.1 Plt Count 394 MPV 10.8 Immature Gran % (Auto) 0.7 Neut % (Auto) 65.3 Lymph % (Auto) 18.8 Sawyer % (Auto) 9.9 Eos % (Auto) 4.7 Baso % (Auto) 0.6 Neut # (Auto) 6.99 H Lymph # (Auto) 2.01 Sawyer # (Auto) 1.06 H Eos # (Auto) 0.50 Baso # (Auto) 0.06 Immature Gran # (Auto) 0.08 Sodium 140 Potassium 4.1 Chloride 103 Carbon Dioxide 27 Anion Gap 10 BUN 15 Creatinine 0.32 L Est Cr Clr Drug Dosing 234.8 Est GFR ( Amer) > 150.0 Est GFR (Non-Af Amer) > 150.0 BUN/Creatinine Ratio 46.9 H Glucose 103 H POC Glucose 115 H 125 H Calcium 9.2 Phosphorus 3.6 Magnesium 2.0 08/05/23 23:50 WBC RBC Hgb Hct MCV MCH MCHC RDW Std Deviation RDW Coeff of Dario Plt Count MPV Immature Gran % (Auto) Neut % (Auto) Lymph % (Auto) Sawyer % (Auto) Eos % (Auto) Baso % (Auto) Neut # (Auto) Lymph # (Auto) Sawyer # (Auto) Eos # (Auto) Baso # (Auto) Immature Gran # (Auto) Sodium Potassium Chloride Carbon Dioxide Anion Gap BUN Creatinine Est Cr Clr Drug Dosing Est GFR ( Amer) Est GFR (Non-Af Amer) BUN/Creatinine Ratio Glucose POC Glucose 137 H Calcium Phosphorus Magnesium PG Care Time/CCT Total # of Minutes Spent Total Time Spent with Patient: Total time spent is greater than 50% in coordination of care (as documented) at patient's floor/unit and/or counseling patient: Coding Level of Care Code 03067 SUB INP/OBS CARE 2/35MIN Diagnoses Decubitus ulcer of sacral region, stage 4 L89.154 Hospital acquired PNA J18.9; Y95 Fever R50.9 Gram-positive bacteremia R78.81 Transaminitis R74.01 Severe protein-calorie malnutrition E43 History of DVT (deep vein thrombosis) Z86.718 Pneumatosis coli K63.89 History of nontraumatic rupture of cerebral aneurysm Z86.79 Autonomic dysfunction G90.9 Decubitus ulcer of calf, unstageable L89.890 Cardiomyopathy I42.9 Tracheostomy status Z93.0 Nonverbal R47.01 Quadriplegia G82.50 Sammi rash of groin B37.89 Diarrhea R19.7
[2023-08-05] MEDS: CEFEPIME 2,000 MG in SYRINGE 0 ML IV SCH (18:01)
--- NOTE | 2023-08-06 07:53 | XRay Report ---
SINGLE VIEW CHEST CLINICAL HISTORY: Respiratory failure. FINDINGS: An AP, portable, upright chest radiograph is compared to study dated 08/05/2023. Correlation is made with chest CT dated 05/07/2023. A shunt catheter traverses the left chest wall. A tracheosto my is in place. The heart is enlarged. The pulmonary vasculature is noncongested. There is a layering left pleural effusion with left basilar consolidation. The right lung appears clear noting dependent atelectasis. No pneumothorax is seen. The skeletal structures are osteopenic. The bony thorax is dylan ssly intact. IMPRESSION: 1. Cardiomegaly without radiographic evidence of congestive failure. 2. Layering left pleural effusion with left basilar consolidation. This is similar to yesterday. ACT 112: Negative or not required by law. Electronically signed by: Jayce Waite M.D. 08/06/2023 7:52 AM
--- NOTE | 2023-08-06 08:03 | Pulmonology Progress Note ---
Date of Service August 06, 2023 Assessment & Plan (1) Pneumonia involving left lung: (2) Respiratory failure: (3) Tracheostomy status: Plan 32-year-old complex male with past medical history of cardiomyopathy, PEG tube, ruptured cerebral aneurysm resulting in chronic trach dependence and and nonverbal state who is presenting with severe left-sided pneumonia. -- Left lung collapse S/p bronchoscopy 08/03/2023 with mucous plugging Bron culture growing Pseudomonas which is pansensitive except for meropenem --Trach dependent respiratory failure Continue with trach care Has size 8 cuffed Bronc culture growing Pseudomonas Plan: Chest x-ray shows worsening of left lower lobe atelectasis likely secondary to mucous plug Will plan to do bronchoscopy tomorrow, keep patient n.p.o. post-midnight I will add CoughAssist and DC chest vest Continue with cefepime and complete the course for total of 10 days Continue with 7% saline as well as Mucomyst nebulized Patient's mother was called Felice Su [phone], risk and benefit of the procedure was explained to her. She understands and agrees to go ahead with the procedure Please note the above document was generated using voice recognition software. It may contain grammatical, syntax or spelling errors.Any formal questions or concerns about the content, text or information contained within the body of this dictation should be directly addressed to the provider for clarification. Admission and Anticipated Discharge Date Admission Date: July 18, 2023 Subjective Patient seen and examined at bedside. No acute distress, no adverse events overnight Resting comfortably on trach collar. Patient is nonverbal Review of Systems 2 Review of Systems: Unobtainable due to cognitive status Physical Exam 2 Physical Exam: Constitutional: No acute distress HEENT: PERRLA, positive size 8 trach Respiratory system: Decreased air entry on the left side, no wheeze, no rhonchi, mild crackles bilateral lower lobes CVS: S1-S2 positive, no murmurs or gallops Abdomen: Soft, nontender, nondistended, positive bowel sounds x4 Extremities: +2 pulses bilaterally radialis/ dorsalis pedis, no cyanosis, no edema Neuro: Quadriplegic, not following any commands, spastic extremities Psych: Unable to assess G/U: Positive Silva Skin: no rashes, warm and dry Lymphatic: no cervical or axillary lymphadenopathy Results & Data Results & Data Vital Signs (Past 12 Hours) Vital Signs Temp Pulse Pulse Resp BP Pulse Ox O2 Del Method 08/06/23 07:28 77 20 90 Trach Collar 08/06/23 04:36 37.3 C 89 22 120/76 97 Trach Collar 08/05/23 23:38 37.2 C 104 H 22 113/73 98 Trach Collar 08/05/23 21:57 107 H 08/05/23 20:33 111 H 16 98 Aerosol Mask O2 Flow Rate FiO2 08/06/23 07:28 28 08/06/23 04:36 6 08/05/23 23:38 6 08/05/23 21:57 08/05/23 20:33 6 28 Laboratory Results 08/05/23 05:39 08/05/23 05:39 PG Care Time/CCT Total # of Minutes Spent Total Time Spent with Patient: Total time spent is greater than 50% in coordination of care (as documented) at patient's floor/unit and/or counseling patient: Coding Level of Care Code 43209 SUB INP/OBS CARE 2/35MIN Diagnoses Pneumonia involving left lung J18.9 Respiratory failure J96.90 Tracheostomy status Z93.0
[2023-08-06 08:25] LABS: Basophils # (auto) 0.08 K/uL (0.00-0.20); Basophils % (auto) 0.8 %; Eosinophils # (auto) 0.63 K/uL (0.00-0.50); Eosinophils % (auto) 5.9 %; Hematocrit (blood only) 27.8 % (42.0-52.0); Hemoglobin 8.8 g/dl (14.0-18.0); Immature Granulocytes # (auto) 0.15 K/uL (0.01-0.20); Immature Granulocytes % (auto) 1.4 %; Lymphocytes # (auto) 2.01 K/uL (1.20-3.40); Lymphocytes % (auto) 18.9 %; Mean Corpuscular Hemoglobin 29.8 pg (25.0-34.0); Mean Corpuscular Hgb Conc 31.7 g/dL (32.0-36.0); Mean Corpuscular Volume 94.2 fL (80.0-100.0); Mean Platelet Volume 10.3 fL (9.4-12.4); Monocytes # (auto) 0.96 K/uL (0.11-0.59); Neutrophils # (auto) 6.81 K/uL (1.40-6.50); Nucleated RBC # (auto) 0.02 K/uL (0.00-0.12); Nucleated RBC % (auto) 0.2 %; Platelet Count 426 K/uL (130-400); RDW Coefficient of Variation 14.3 % (11.5-14.5); Red Blood Count 2.95 M/uL (4.70-6.10); White Blood Count 10.64 K/ul (4.8-10.8)
[2023-08-06 09:25] LABS: Anion Gap 9 (3-11); Calcium 9.5 mg/dl (8.6-10.3); Carbon Dioxide 27 mmol/L (21-32); Chloride 104 mmol/L (98-107); Potassium 4.1 mmol/L (3.5-5.1); Sodium 140 mmol/L (136-145)
[2023-08-06 09:31] LABS: BUN Creatinine Ratio 45.5 (10-20); Blood Urea Nitrogen 15 mg/dl (6-23); Creatinine Clr Calc Pharmacy 227.7 ml/min; Est GFR (African American) > 150.0 ml/min; Est GFR (Non-African American) > 150.0 ml/min; Glucose 101 mg/dl (70-99(Fasting)); Phosphorus 3.7 mg/dl (2.5-4.9)
--- NOTE | 2023-08-06 09:54 | Infectious Disease Progress Nt ---
Date of Service August 06, 2023 Assessment & Plan (1) SOB (shortness of breath): (2) Hospital admission due to lack of caregiver: (3) Hospital acquired PNA: (4) Pseudomonas aeruginosa infection: (5) Pneumonia involving left lung: (6) Sacral wound: (7) Chronic osteomyelitis of sacrum: Plan Ry Viveros is a 32-year-old man with history of ruptured cerebral aneurysm s/p craniotomy/hematoma evacuation during hospitalization from Aug - Feb 2023, [employer] shunt, s/p trach and PEG, nonverbal, autonomic dysfunction who presented to [facility] on 07/08/23 due to fevers and worsening sacral ulcer with surrounding cellulitis, recently admitted 07/0807/17/23 at [facility] (BCx + Group C Strep and CoNS, 07/09 BCx + CoNS and Corynebacterium, worsening sacral wound SSTI, treated with a 10-day course of vancomycin + meropenem->pip-tazo (intended EOT 07/19/23). On 07/18 Patient was readmitted d/t lack of caregiver support; 07/18 BCx + CoNS (non-lugdunensis) felt likely to be a contaminant and vancomycin was stopped on 07/25. S/p debridement of sacral ulcer on 07/31 with cx + Providencia stuartii, MSSA, PsA, mixed anaerobes, c/b post-surgical fever and hypoxemic respiratory failure and s/p bronchoscopy on 08/03 with cx growing PsA. The sacral ulcer was present during his admissions in March, however it has been getting progressively worse. Recently admitted 07/0807/17/23 at [facility]: Found to 07/08 BCx + have Group C Strep and CoNS (2 morphologies), and 07/09 BCx + for CoNS (2 morphologies) and Corynebacterium. [place] to be from SSTI vs. contamination. Sacral wound cx from 07/11 with Pseudomonas, and sputum cx from 07/11 with PsA. His BCx from 07/10 NG. TTE from 07/11 without visualized vegetations. It seems the only hardware/prosthetic device he has is a [employer] shunt. Lower suspicion for deep-seated endovascular infection at this time given the polymicrobial bacteremia with multiple morphologies of CoNS. He was recommended to continue vancomycin and meropenem -> pip-tazo to complete a 10-day course for SSTI and polymicrobial bacteremias (intended EOT 07/19/23 however was readmitted and abx extended). He was admitted again on 07/18 d/t lack of caregiver support; 07/18 BCx + CoNS (non-lugdunensis). 07/19 labs with normal WBC. The 07/18 CoNS was felt to be a contaminant (please see note from Dr. Arreola on 07/22/23) and vancomycin was stopped on 07/25/23. Most recently s/p debridement of sacral ulcer on 07/31, noting that tip of coccyx was exposed indicative of a component of sacral osteomyelitis. With 07/31 cx + Providencia stuartii, MSSA, PsA, mixed anaerobes. Would continue wound care inpatient. Continue to discuss long-term plan for wound care, including whether aggressive wound care alone will provide full coverage of his exposed coccyx, and whether additional surgery (e.g., flap) would be indicated and within goals of care. Would only treat chronic sacral osteomyelitis with long-term (likely 6 weeks, at least partly IV) abx if a plan for wound coverage were in place. Currently with sacral wound vac. Also c/b post-surgical fever and hypoxemic respiratory failure c/f HAP. S/p bronchoscopy on 08/03, mucous plugging noted, also found to have L lung collapse/atelectasis. Bronch Cx growing PsA which has been isolated in the past. Pip-tazo changed to cefepime by pulm. Can continue cefepime for coverage of the organisms from his sacral wound (Providencia, MSSA, PsA) and possible PsA HAP, and will add on metronidazole for anaerobic coverage of the sacral wound. Kelvin nicole, would consider changing back to pip-tazo, given that the PsA is susceptible. Duration of abx will be pending whether will be treating for sacral osteomyelitis vs. SSTI, as delineated above. ID Problem List: 1.Sacral decubitus ulcer with SSTI: CT without evidence of abscess or osteomyelitis. Sacral wound cx from 07/11 with probable Pseudomonas. S/p debridement of sacral ulcer on 07/31, noting that tip of coccyx was exposed indicative of sacral osteomyelitis. 07/31 OR cx + Providencia stuartii, Staphylococcus spp., Pseudomonas aeruginosa, mixed anaerobes 2.Group C Strep bacteremia: likely 2/2 SSTI 3.CoNS bacteremia likely 2/2 SSTI. Grew from both 07/08 and 07/09 blood cultures. CoNS bacteremia from 07/18, likely contaminant 4.Corynebacterium bacteremia 5.Fevers 6.Possible tracheitis / increased tracheal secretions 07/10 7.Autonomic dysfunction: per notes, he gets rigid, tachycardic, hyperthermic if he misses his usual medications 8.Transaminitis: resolved 9.Possible HAP, L lung atelectasis and mucous plugging, bronch cx from 08/03 growing Pseudomonas 10.Pseudomonas in respiratory cx: on 07/06, after receiving a 10 day course of cefepime through 06/28/23. No respiratory issues this hospitalization, no hypoxia, CXR without consolidations. Has grown Pseudomonas in multiple respiratory culture from Mar, Apr, May 2023. Recommendations: - Consider changing cefepime 2g IV q8h and metronidazole 500 mg PO BID back to pip-tazo - Continue wound care inpatient. Continue to discuss long-term plan for wound care, including whether aggressive wound care alone will provide full coverage of his exposed coccyx, and whether additional surgery (e.g., flap) would be indicated and within goals of care. Would only treat chronic sacral osteomye litis with long-term abx if a plan for wound coverage were in place. ID will continue to follow. Ambreen Meredith MD, S Infectious Diseases [facility]/ID Connect ID Connect direct line: [phone] Admission and Anticipated Discharge Date Admission Date: July 18, 2023 Subjective This patient recommendation is based on a telemedicine consult request which was completed asynchronously through chart review and information provided by the primary physician. The patient was not seen or examined today. The evaluation is consultative in nature and all patient care and treatment decisions can either be accepted or rejected by the patient's primary hospital-based treating physician using their own independent medical judgment for their patient. Time Spent Reviewing Chart: 21 - 30 minutes - Afebrile - Sacral wound images from 08/06 reviewed - On trach collar 6L Results & Data Vital Signs (Past 12 Hours) Vital Signs Temp Pulse Pulse Pulse Resp BP BP 08/06/23 08:03 37.1 C 89 14 112/76 08/06/23 07:28 77 20 02/14/24 04:36 37.3 C 89 22 120/76 08/05/23 23:38 37.2 C 104 H 22 113/73 08/05/23 21:57 107 H Pulse Ox O2 Del Method O2 Flow Rate FiO2 08/06/23 08:03 97 Trach Collar 6 08/06/23 07:28 90 Trach Collar 28 08/06/23 04:36 97 Trach Collar 6 08/05/23 23:38 98 Trach Collar 6 08/05/23 21:57 Diagnostic Findings Diagnostics: 08/05 CXR 1. Stable lines and tubes. 2. Small left pleural effusion and left lung airspace opacities persist. This favors a pneumonia. 08/04 CXR 1. Stable left airspace opacity with volume loss noted. No pneumothorax. 2. Blunting of the left costophrenic angle likely reflects atelectasis, trace effusion cannot be excluded. 07/31 OR report Sharp debridement with Metzenbaum scissors and curette. Heavy slough in undermined superior aspect of the wound was excised and sent for culture. Tissue debrided was devitalized skin, slough from the base of the wound. The wound extends to the most inferior tip of the coccyx at one small area. There is hypergranulation tissue just superior to this area that bled. Bleeding controlled with cautery and pressure. The wound was copiously and gently irrigated with Saline infused with Vancomycin. The wound was dressed with a Kerlix which was inserted in the undermined area superior aspect. The area was covered with an ABD and secured with tape. There was a small area of skin excoriation left lateral to the wound that was covered with xeroform to the excoriated tissue only, covered with gauze. The patient tolerated the procedure well. He was awakened from anesthesia and transferred to recovery in stable condition. 07/11 TTE: No visualized vegetation. Micro Summary: 08/03 Bronch: Cx PsA (S-pip-tazo/cefepime/cipro/levo/ceftaz; R-meropenem); rare GPCs, mod WBCs 07/31 Sacral OR wound: Providencia stuartii (S-cefepime/pip-tazo/Bactrim; R- cipro/levo), MSSA, Pseudomonas aeruginosa (R-meropenem, otherwise S), high co unts mixed anaerobes 07/23 BCx: NGTD 07/18 BCx: +CoNS (non-lugdunensis) Old micro: 07/11 Wound Sacrum Cx: PsA (R-levofloxacin/ciprofloxacin; I-cefepime/ceftazidime; S-pip-tazo/meropenem) 07/11 Sputum Cx trach: PsA (hollis-S) 07/10 BCx x2: NG 07/09 BCx x2: CoNS (2 morphologies) in 2/4 bottles (BCID + Staph epi); Corynebacterium in 1/4 bottles 07/08 BCx x2: Group C Strep in 2/4 bottles, CoNS (2 morphologies, both R-oxa) in 1/4 bottles (non-lugdenensis) 07/08 MRSA nares: neg 07/06 Sputum cx: PsA (I cefepime, cipro, levo, pip/tazo. R ceftaz. S gent, mery, tobra), Group C Strep 06/15 Sputum cx: PsA (I cipro, levo. Otherwise S), Group C Strep Antibiotic Summary: Cefepime ~06/19 - 06/28 (per report), 08/05 present metronidazole (08/06 present) Prior Pip-tazo 07/08 - 07/09, 07/15 07/19, 208/05) vancomycin intraoperative irrigation 07/31 Vanc 07/08 - 07/09, 07/1007/25/23 Meropenem 07/11 07/15 Ceftriaxone 2 g 07/09 07/10
[2023-08-06] MEDS: metroNIDAZOLE 500 MG TAB PO SCH (09:56)
--- NOTE | 2023-08-06 21:20 | Hospitalist Progress Note ---
Date of Service August 06, 2023 Assessment & Plan (1) Decubitus ulcer of sacral region, stage 4: Plan: s/p debridement in the OR by Dr Issa on 07/31/23 intra-op culture with MSSA, pseudomonas, and providencia zosyn IV had been utilized for coverage of the above pathogens ID following and recs appreicated Wound vac placed on 08/01 Vac then changed on 08/04 and again today, 08/06 There had been exposed coccyx on examination but today the coccyx was covered wi th tissue per wound care team rectal tube remains in place due to ongoing diarrhea c diff negative on 08/03 ongoing diarrhea will pose a large barrier to effective wound healing due to contamination, etc consider stool bulking agent to slow the stool as rectal tube cannot remain indefinitely would Mr Viveros ultimately need a diverting colostomy ?? (2) Hospital acquired PNA: Plan: 08/01 - cxr with worsening infiltrates on left 08/03 - collapse LLL 08/03 - bronchoscopy by Dr Blancas with mucous plugging found in the left-sided bronchial tree s/p removal; cultures sent; pseudomonas resulted has been treated with zosyn, then changed to cefepime today remains on aggressive pulmonary toilet for this issue peak O2 requirement 07/31 - 08/01 -- 8-10 liters O2 cont mucomyst nebs BID cont saline nebs BID cont IV abx to have bronch tomorrow with Dr Lock due to suspected ongoing LLL collapse from mucous plugs, etc (3) Fever: Plan: either 2nd to infected sacral decubitus ulcer vs left-sided pneumonia/collapse vs autonomic storming vs combination of factors highest temp of 38.3 recorded on 08/02 temps 38 or lower since then cont to follow (4) Gram-positive bacteremia: Plan: Potential culprits - SSTI sacral decubitus ulcer Group C strep bacteremia - source thought 2nd to sacral wound Coag neg staph bacteremia - contaminant vs bacteremia Corynebacterium bacteremia Sputum colonized with pseudomonas 08/03 bronch cultures with pseudomonas once again 08/05 - due to persistent LLL infiltrates Dr Lock from pulmonary advised changing zosyn to cefepime IV the cefepime should cover all recent pathogens from the sacrum as well appreciate ongoing ID support appreciate pulmonary assistance (5) Transaminitis: Plan: resolved (6) Severe protein-calorie malnutrition: Plan: BMI 18, diffuse sarcopenia / muscle wasting present continue PEG tube feedings as previous with peptamen albumin was normal at 3.7 on 07/19/23 (7) History of DVT (deep vein thrombosis): Plan: Continue Eliquis BID On hold for bronch tomorrow (8) Pneumatosis coli: Plan: Evaluated by General surgery last admission (mid June 2023) since no surgical abdomen/peritonitis/symptoms no Rx recommended during that admission etiology of the CT findings was uncertain abdominal exam remains benign / soft (9) History of nontraumatic rupture of cerebral aneurysm: Plan: Patient is nonverbal at baseline with chronic contractures in all 4 extremities Acquired quadriplegia [address] head shows encephalomalacia and good shunt placement Ry suffered a ruptured brain aneurysm and SAH 08/2022 Had craniotomy and evacuation. skull fragment was reimplanted in November per family. Had a [employer] shunt placement at [facility]. Has history of severe autonomic dysfunction / paroxysmal sympathetic hyperactivity / autonomic storm which is controlled on medications and has the potential to be confused with sepsis. Cont complex regimen of meds for this issue (dantrolene, scop patch, etc) (10) Autonomic dysfunction: Plan: Continue dantrolene and bromocriptine Continue gabapentin and baclofen for spasticity (11) Decubitus ulcer of calf, unstageable: Plan: Eschar present with no surrounding cellulitis Continue wound care as advised by wound care team (12) Cardiomyopathy: Plan: last echo 07/11/23 - low normal EF 50-55% remains compensated cont beta joon does not require any diuretic at this time (13) Tracheostomy status: Plan: colonized with pseudomonas cont local trach care o2 requirement back to baseline of 6 L see above re: Left-sided infiltrates (14) 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 (15) Quadriplegia: Plan: 2nd to above (16) Sammi rash of groin: Plan: cont miconazole powder TID much improved (17) Diarrhea: Plan: had resolved previously had rectal tube - was removed - but then placed back again on 08/04 c diff neg on 07/18/23 and again on 08/03/23 see #1 re: diarrhea Plan dispo - numerous referrals made by social work to various SNFs; he will not be returning to [facility] after this admission pt's situation remains very medically complex Admission and Anticipated Discharge Date Admission Date: July 18, 2023 Subjective wound vac exchanged today by wound care team Amy Park corresponded with Sherie Jesus from wound - the coccyx was no longer exposed on direct exam today Mr Viveros will have bronch tomorrow due to persistent LLL collapse continues with liquid stool via rectal tube thick, slightly purulent secretions remain from trach but no change in O2 requirement Review of Systems Review of Systems: Unobtainable due to cognitive status and Other (nonverbal / vegetative state ) Physical Exam Physical Exam: gen - very thin, NAD, generalized muscle wasting - no change from prior exams; sleeping, eyes closed today head - deformity right side from prior craniotomy neck - no JVD; trach in place - thick slightly purulent secretions noted heart - RRR, s1 s2, no murmur lungs - CTA b/l; decreased BS Left base abd - soft NT ND BS+; PEG tube site where the tube meets the skin is clean; tube itself appears dirty ext - trace edema, pulses 2+ b/l neuro - contractures all extremities Results & Data Results & Data Vital Signs (Past 12 Hours) Vital Signs Temp Pulse Pulse Pulse Resp BP BP 08/06/23 19:51 08/06/23 19:35 37.0 C 109 H 16 120/75 08/06/23 18:43 20 08/06/23 15:52 08/06/23 15:50 92 H 08/06/23 15:25 36.6 C 89 18 108/72 08/06/23 14:21 92 H 08/06/23 11:50 36.4 C L 85 16 114/77 Pulse Ox O2 Del Method O2 Flow Rate FiO2 08/06/23 19:51 Trach Collar 6 28 08/06/23 19:35 96 Trach Collar 08/06/23 18:43 92 Trach Collar 28 08/06/23 15:52 Trach Collar 6 28 08/06/23 15:50 08/06/23 15:25 93 Trach Collar 08/06/23 14:21 08/06/23 11:50 98 Trach Collar 98 Laboratory Results Laboratory Results - last 24 hr 08/06/23 08/06/23 07:50 17:53 WBC 10.64 RBC 2.95 L Hgb 8.8 L Hct 27.8 L MCV 94.2 MCH 29.8 MCHC 31.7 L RDW Std Deviation 49.0 H RDW Coeff of Dario 14.3 Plt Count 426 H MPV 10.3 Immature Gran % (Auto) 1.4 Neut % (Auto) 64.0 Lymph % (Auto) 18.9 Saunders % (Auto) 9.0 Eos % (Auto) 5.9 Baso % (Auto) 0.8 Neut # (Auto) 6.81 H Lymph # (Auto) 2.01 Saunders # (Auto) 0.96 H Eos # (Auto) 0.63 H Baso # (Auto) 0.08 Immature Gran # (Auto) 0.15 Absolute Nucleated RBC 0.02 Nucleated RBC % (auto) 0.2 Sodium 140 Potassium 4.1 Chloride 104 Carbon Dioxide 27 Anion Gap 9 BUN 15 Creatinine 0.33 L Est Cr Clr Drug Dosing 227.7 Est GFR ( Amer) > 150.0 Est GFR (Non-Af Amer) > 150.0 BUN/Creatinine Ratio 45.5 H Glucose 101 H POC Glucose 109 H Calcium 9.5 Phosphorus 3.7 Magnesium 2.0 Diagnostic Findings Chest X-Ray 08/06/23 07:00 SINGLE VIEW CHEST CLINICAL HISTORY: Respiratory failure. FINDINGS: An AP, portable, upright chest radiograph is compared to study dated 08/05/2023. Correlation is made with chest CT dated 05/07/2023. A shunt catheter traverses the left chest wall. A tracheostomy is in place. The heart is enlarged. The pulmonary vasculature is noncongested. There is a layering left pleural effusion with left basilar consolidation. The right lung appears clear noting dependent atelectasis. No pneumothorax is seen. The skeletal structures are osteopenic. The bony thorax is grossly intact. IMPRESSION: 1. Cardiomegaly without radiographic evidence of congestive failure. 2. Layering left pleural effusion with left basilar consolidation. This is similar to yesterday. ACT 112: Negative or not required by law. Electronically signed by: Jayce Waite M.D. 08/06/2023 7:52 AM PG Care Time/CCT Total # of Minutes Spent Total Time Spent with Patient: Total time spent is greater than 50% in coordination of care (as documented) at patient's floor/unit and/or counseling patient: Coding Level of Care Code 23646 SUB INP/OBS CARE 1/25MIN Diagnoses Decubitus ulcer of sacral region, stage 4 L89.154 Hospital acquired PNA J18.9; Y95 Fever R50.9 Gram-positive bacteremia R78.81 Transaminitis R74.01 Severe protein-calorie malnutrition E43 History of DVT (deep vein thrombosis) Z86.718 Pneumatosis coli K63.89 History of nontraumatic rupture of cerebral aneurysm Z86.79 Autonomic dysfunction G90.9 Decubitus ulcer of calf, unstageable L89.890 Cardiomyopathy I42.9 Tracheostomy status Z93.0 Nonverbal R47.01 Quadriplegia G82.50 Sammi rash of groin B37.89 Diarrhea R19.7
[2023-08-07] MEDS: ALBUT/IPRATROP 3MG/0.5MG NEB 3 ML VIAL ONE (07:56)
--- NOTE | 2023-08-07 08:54 | Pre Anesthesia Assessment ---
Date of Service August 07, 2023 Pre Sedation Assessment Vital Signs Temp Pulse Pulse Pulse Resp BP BP 08/07/23 08:10 36.5 C 95 H 16 108/73 08/07/23 07:44 93 H 16 08/07/23 03:12 36.5 C 93 H 20 116/81 08/06/23 22:51 36.8 C 98 H 18 109/76 08/06/23 21:58 104 H 08/06/23 19:51 08/06/23 19:35 37.0 C 109 H 16 120/75 08/06/23 18:43 20 08/06/23 15:52 08/06/23 15:50 92 H 08/06/23 15:25 36.6 C 89 18 108/72 08/06/23 14:21 92 H 08/06/23 11:50 36.4 C L 85 16 114/77 Pulse Ox O2 Del Method O2 Flow Rate FiO2 08/07/23 08:10 94 Trach Collar 6 08/07/23 07:44 94 Trach Collar 6 08/07/23 03:12 100 Trach Collar 6 08/06/23 22:51 96 Trach Collar 6 08/06/23 21:58 08/06/23 19:51 Trach Collar 6 08/06/23 19:35 96 Trach Collar 08/06/23 18:43 92 Trach Collar 28 08/06/23 15:52 Trach Collar 6 08/06/23 15:50 08/06/23 15:25 93 Trach Collar 08/06/23 14:21 08/06/23 11:50 98 Trach Collar 98 Pre-Sedation Airway Assessment Smoking Status: Never smoker Thyromental Distance: < 3.5 Finger Breadths Mallampati Class: III ASA: ASA2 Procedure Planning Contraindications for Sedation: none Current Medications Reviewed: Yes Notes The planned sedation has been discussed with the patient. Informed Consent was obtained. I have identified the patient, determined the appropriateness of sedation and have assessed the patient immediately prior to the procedure. All medicine(s) and interventions are by my order.
[2023-08-07] MEDS: fentaNYL citrate PF 100 MCG/2 ML VIAL ONE (09:00)
[2023-08-07] MEDS: MIDAZOLAM HCL 5 MG/ML 1 ML VIAL ONE (09:00)
--- NOTE | 2023-08-07 09:19 | Procedure Note ---
Procedure Note: Bronchoscopy Procedure PREOPERATIVE DIAGNOSIS: Left lower lobe atelectasis POSTOPERATIVE DIAGNOSIS: Mucous plugging left lower lobe PROCEDURE PERFORMED: Flexible fiberoptic bronchoscopy with bronchial wash COMPLICATIONS: None. INDICATION: Mucous plugging PROCEDURE: After obtaining an informed consent, the patient was brought to the Bronchoscopy Suite. The patient had appropriate oxygen, blood pressure, heart rate, and respiratory rate monitoring applied and monitored continuously throughout the procedure. Supplemental oxygen via trach collar as per nursing records was applied to the nasopharynx with adequate saturations achieved. Topical anesthesia with nebulized 1% lidocaine was achieved. Subsequent to this, the patient was premedicated with 2 mg of midazolam and 50 mcg of fentanyl. Procedure start 8:57 AM, procedure and 9:04 AM Bronchoscope was advanced through the trach. Right after insertion of the bronc and the trachea thick grayish-yellow secretion/mucus was appreciated which was difficult to suction. Bronc needed to be removed in order to remove the phlegm. Bronchoscope was reintroduced. There was phlegm right at the yunior going into the left side. This was suctioned out The trachea appeared normal.The bronchoscope was then advanced through the yunior, which was sharp. The scope was then advanced into the right main stem and each segment, subsegement in the right upper lobe, right middle lobe and right lower lobe were visualized. There was minimal amount of clear secretion which was suctioned out there were no other findings including evidence of mass, anatomic distortions, or hemorrhage. The bronchoscope was subsequently withdrawn and advanced into the left mainstem. Again, each segment and subsegment was well visualized. No specific masses or other lesions were identified throughout the tracheobronchial tree on the left. N-acetylcysteine was instilled into the left lower lobe. There was minimal to moderate amount of yellowish-armenta secretion which was suctioned out The bronchoscope was then wedged in the left lower lobe medial segment and bronchoalveolar lavage samples were obtained. 80 ml of saline was instilled and 40 ml of fluid was aspirated back.The bronchoscope was withdrawn and the area was suctioned clear. The bronchoscope was then withdrawn to the mainstem. The area was suctioned clear. The bronchoscope was then withdrawn. The patient tolerated the procedure well without evidence of desaturation or complications. Bronchoalveolar lavage samples were sent for cell count, Gram stain and bacterial culture and fungal culture and smear Recommendations: Follow-up micro Follow-up chest x-ray Please note the above document was generated using voice recognition software. It may contain grammatical, syntax or spelling errors.Any formal questions or concerns about the content, text or information contained within the body of this dictation should be directly addressed to the provider for clarification. [facility] – [place], [place] Procedure Codes (Charges) Pulmonary/Thoracic Procedure 1: Pulmonary and Thoracic: 67891 Bronchoscopy, clear airways Sedation/Anesthesia Procedure 1: Sedation/Anesthesia: 50590 Mod Sedation by the same physician;Init15 Min Child Age 5 & Up
--- NOTE | 2023-08-07 09:19 | Post Anesthesia Assessment ---
Date of Service August 07, 2023 Post Sedation Assessment Vital Signs Temp Pulse Pulse Pulse Resp BP BP 08/07/23 09:00 113 H 20 110/80 08/07/23 08:55 94 H 20 105/71 08/07/23 08:40 94 H 20 08/07/23 08:10 36.5 C 95 H 16 108/73 08/07/23 07:44 93 H 16 08/07/23 03:12 36.5 C 93 H 20 116/81 08/06/23 22:51 36.8 C 98 H 18 109/76 08/06/23 21:58 104 H 08/06/23 19:51 08/06/23 19:35 37.0 C 109 H 16 08/06/23 18:43 20 08/06/23 15:52 08/06/23 15:50 92 H 08/06/23 15:25 36.6 C 89 18 108/72 08/06/23 14:21 92 H 08/06/23 11:50 36.4 C L 85 16 BP Pulse Ox O2 Del Method O2 Flow Rate FiO2 08/07/23 09:00 96 Trach Collar 4 08/07/23 08:55 100 Trach Collar 4 08/07/23 08:40 105/71 100 Trach Collar 4 08/07/23 08:10 94 Trach Collar 6 08/07/23 07:44 94 Trach Collar 6 28 08/07/23 03:12 100 Trach Collar 6 08/06/23 22:51 96 Trach Collar 6 08/06/23 21:58 08/06/23 19:51 Trach Collar 6 28 08/06/23 19:35 120/75 96 Trach Collar 08/06/23 18:43 92 Trach Collar 28 08/06/23 15:52 Trach Collar 6 28 08/06/23 15:50 08/06/23 15:25 93 Trach Collar 08/06/23 14:21 08/06/23 11:50 114/77 98 Trach Collar 98 Recovery Score Activity: Moves 0 extremities Respiration: Dyspnea/Limited Breathing Circulation: +/-20% PreAnes Value Consciousness: Nonresponsive Oxygen Saturation: O2 needed for >90% Post Anesthesia Score: 4 Discharge Sedation Level of Care: Fast Track Phase II Post Sedation Plan On clinical assessment, the patient appears to have tolerated the sedation without complications. Patient is recovering as anticipated. Patient will continue to be monitored by nursing and may be discharged when sedation discharge criteria are met per below protocol. Upon Completions of procedure up to 15 minutes continue every 5 minute vital si gns and the P.A.R. score; then discharge to a Phase I or Fast Track to Phase II per the following guidelines: * Discharge Patient to appropriate Phase II area if PAR is 8 or greater or return to pre- procedure baseline. The post - procedure orders will be as directed. * If PAR score is less than 8 or not return to pre-procedure baseline then patient will follow Phase I monitoring till PAR is reached for Phase II. The Phase I may be done in procedure room or may call to secure a Phase I area. * If naloxone or flumazenil are used for reversal, hold in Phase I for continued monitoring from when last reversal dose was given for a minimum of 60 minutes or longer pending the nurse and/or physician discretion of patient condition before discharge to Phase II. Please call the Sedation Physician to re-evaluate and complete post-note for discharge to Phase II area. Do NOT discharge from procedure sedation or Phase 1 until post- sedation evaluation note is complete by procedure /sedation MD Sedation Discharge Instructions to be given to the patient at discharge to home.
--- NOTE | 2023-08-07 09:24 | Pulmonology Progress Note ---
Date of Service August 07, 2023 Assessment & Plan (1) Pneumonia involving left lung: (2) Respiratory failure: (3) Tracheostomy status: Plan 32-year-old complex male with past medical history of cardiomyopathy, PEG tube, ruptured cerebral aneurysm resulting in chronic trach dependence and and nonverbal state who is presenting with severe left-sided pneumonia. -- Left lung collapse S/p bronchoscopy 08/03/2023 with mucous plugging Bron culture growing Pseudomonas which is pansensitive except for meropenem --Trach dependent respiratory failure Continue with trach care Has size 8 cuffed Bronc culture growing Pseudomonas Plan: For bronchoscopy today Continue with CoughAssist Continue with cefepime and complete the course for total of 10 days Continue with 7% saline as well as Mucomyst nebulized Felice Su [phone], risk and benefit of the procedure was explained to her. She understands and agrees to go ahead with the procedure Please note the above document was generated using voice recognition software. It may contain grammatical, syntax or spelling errors.Any formal questions or concerns about the content, text or information contained within the body of this dictation should be directly addressed to the provider for clarification. Admission and Anticipated Discharge Date Admission Date: July 18, 2023 Subjective Patient seen and examined at bedside. No acute distress, no adverse events overnight Patient is scheduled for bronchoscopy today He is nonverbal. Was resting comfortably on the bed Review of Systems 2 Review of Systems: Unobtainable due to mental health condition Physical Exam 2 Physical Exam: Constitutional: No acute distress HEENT: PERRLA, positive size 8 trach Respiratory system: Decreased air entry on the left side, no wheeze, no rhonchi, mild crackles bilateral lower lobes CVS: S1-S2 positive, no murmurs or gallops Abdomen: Soft, nontender, nondistended, positive bowel sounds x4 Extremities: +2 pulses bilaterally radialis/ dorsalis pedis, no cyanosis, no edema Neuro: Quadriplegic, not following any commands, spastic extremities Psych: Unable to assess G/U: Positive Silva Skin: no rashes, warm and dry Lymphatic: no cervical or axillary lymphadenopathy Results & Data Results & Data Vital Signs (Past 12 Hours) Vital Signs Temp Pulse Pulse Pulse Resp BP BP 08/07/23 09:10 98 H 20 99/62 L 02/15/24 09:05 88 20 105/61 02/15/24 09:00 113 H 20 110/80 08/07/23 08:55 94 H 20 105/71 08/07/23 08:40 94 H 20 08/07/23 08:10 36.5 C 95 H 16 108/73 08/07/23 07:44 93 H 16 08/07/23 03:12 36.5 C 93 H 20 116/81 08/06/23 22:51 36.8 C 98 H 18 109/76 08/06/23 21:58 104 H BP Pulse Ox O2 Del Method O2 Flow Rate FiO2 08/07/23 09:10 93 Trach Collar 4 08/07/23 09:05 97 Trach Collar 4 08/07/23 09:00 96 Trach Collar 4 08/07/23 08:55 100 Trach Collar 4 08/07/23 08:40 105/71 100 Trach Collar 4 08/07/23 08:10 94 Trach Collar 6 08/07/23 07:44 94 Trach Collar 6 28 08/07/23 03:12 100 Trach Collar 6 08/06/23 22:51 96 Trach Collar 6 08/06/23 21:58 Laboratory Results 08/06/23 07:50 08/06/23 07:50 PG Care Time/CCT Total # of Minutes Spent Total Time Spent with Patient: Total time spent is greater than 50% in coordination of care (as documented) at patient's floor/unit and/or counseling patient: Coding Level of Care Code 86293 SUB INP/OBS CARE 3/50MIN Diagnoses Pneumonia involving left lung J18.9 Respiratory failure J96.90 Tracheostomy status Z93.0
--- NOTE | 2023-08-07 09:52 | Infectious Disease Progress Nt ---
Date of Service August 07, 2023 Assessment & Plan (1) SOB (shortness of breath): Plan: Ry Viveros is a 32-year-old man with history of ruptured cerebral aneurysm s/p craniotomy/hematoma evacuation during hospitalization from Aug - Feb 2023, [employer] shunt, s/p trach and PEG, nonverbal, autonomic dysfunction who presented to [facility] on 07/08/23 due to fevers and worsening sacral ulcer with surrounding cellulitis, recently admitted 07/0807/17/23 at [facility] (BCx + Group C Strep and CoNS, 07/09 BCx + CoNS and Corynebacterium, worsening sacral wound SSTI, treated with a 10-day course of vancomycin + meropenem->pip-tazo (intended EOT 07/19/23). On 07/18 Patient was readmitted d/t lack of caregiver support; 07/18 BCx + CoNS (non-lugdunensis) felt likely to be a contaminant and vancomycin was stopped on 07/25. S/p debridement of sacral ulcer on 07/31 with exposed tip of coccyx indicative of sacral osteomyelitis, OR cx + Providencia stuartii, MSSA, PsA, mixed anaerobes. On 08/06, wound care confirmed that there is now healing tissue over the exposed bone. Hospital course also c/b post-surgical fever and hypoxemic respiratory failure and s/p bronchoscopy on 08/03 with cx growing PsA, s/p bronchoscopy on 08/07 with removal of mucous plugging. The sacral ulcer was present during his admissions in March, however it has been getting progressively worse. Recently admitted 07/0807/17/23 at [facility]: Found to 07/08 BCx + have Group C Strep and CoNS (2 morphologies), and 07/09 BCx + for CoNS (2 morphologies) and Corynebacterium. [employer] to be from SSTI vs. contamination. Sacral wound cx from 07/11 with Pseudomonas, and sputum cx from 07/11 with PsA. His BCx from 07/10 NG. TTE from 07/11 without visualized vegetations. It seems the only hardware/prosthetic device he has is a [employer] shunt. Lower suspicion for deep-seated endovascular infection at this time given the polymicrobial bacteremia with multiple morphologies of CoNS. He was recommended to continue vancomycin and meropenem -> pip-tazo to complete a 10-day course for SSTI and polymicrobial bacteremias (intended EOT 07/19/23 however was readmitted and abx extended). He was admitted again on 07/18 d/t lack of caregiver support; 07/18 BCx + CoNS (non-lugdunensis). 07/19 labs with normal WBC. The 07/18 CoNS was felt to be a contaminant (please see note from Dr. Arreola on 07/22/23) and vancomycin was stopped on 07/25/23. Most recently s/p debridement of sacral ulcer on 07/31, noting that tip of coccyx was exposed indicative of a component of sacral osteomyelitis. With 07/31 cx + Providencia stuartii, MSSA, PsA, mixed anaerobes. Confirmed with wound care on 08/06 that the patient appears to have achieved wound coverage of his exposed tip of coccyx with intensive inpatient wound care. He will require long-term wound care follow-up in order to continue the wound coverage and healing process. Given that he now has coverage of the bone, it would be reasonable to treat for sacral osteomyelitis if this is within GOC. Have changed back to pip-tazo, would continue this to complete a 6-week total course to treat sacral ostoemyelitis. This will cover the Providencia, MSSA, and PsA. If doing well as an outpatient, could consider earlier transition to PO (e.g., after >4 weeks of IV) such as to Bactrim+levofloxacin+cefadroxil though do note that previous wound cx from Jun 2022 show PsA with variable susceptibility to FQs even though recent isolates are susceptible. Also c/b post-surgical fever and hypoxemic respiratory failure c/f HAP. S/p bronchoscopy on 08/03, mucous plugging noted, also found to have L lung collapse/atelectasis. Bronch Cx growing PsA which has been isolated in the past. S/p bronch again on 08/07 for further removal of mucous plugging. On abx as above. ID Problem List: 1.Sacral decubitus ulcer with SSTI: CT without evidence of abscess or osteomyelitis. Sacral wound cx from 07/11 with probable Pseudomonas. S/p debridement of sacral ulcer on 07/31, noting that tip of coccyx was exposed indicative of sacral osteomyelitis. 07/31 OR cx + Providencia stuartii, Staphylococcus spp., Pseudomonas aeruginosa, mixed anaerobes 2.Group C Strep bacteremia: likely 2/2 SSTI 3.CoNS bacteremia likely 2/2 SSTI. Grew from both 07/08 and 07/09 blood cultures. CoNS bacteremia from 07/18, likely contaminant 4.Corynebacterium bacteremia 5.Fevers 6.Possible tracheitis / increased tracheal secretions 07/10 7.Autonomic dysfunction: per notes, he gets rigid, tachycardic, hyperthermic if he misses his usual medications 8.Transaminitis: resolved 9.Possible HAP, L lung atelectasis and mucous plugging, bronch cx from 08/03 growing Pseudomonas 10.Pseudomonas in respiratory cx: on 07/06, after receiving a 10 day course of cefepime through 06/28/23. No respiratory issues this hospitalization, no hypoxia, CXR without consolidations. Has grown Pseudomonas in multiple respiratory culture from Mar, Apr, May 2023. Recommendations: - Have changed back to pip-tazo (4.5 g IV q8h extended infusion when inpatient per [facility] protocol; may change to 4.5 g IV q6h if discharging to facility without extended infusion capability), recommend to complete a 6-week total course for sacral osteomyelitis (07/3109/10/23). - Continue intensive wound care, noting that pt has achieved wound coverage of his exposed tip of coccyx with intensive inpatient wound care. He will require long-term wound care follow-up in order to continue the wound coverage and healing process. - Weekly labs while on abx: CBC w/ diff, CMP, ESR, CRP - Ideally would follow-up with local outpatient ID if available. If not, please ensure close PCP follow-up including for follow-up of labs. Plan discussed with hospitalist. Thank you for letting ID participate in the care of this patient. ID will sign off at this time. If questions, [facility] at [phone]. Ambreen Meredith MD, MHS Infectious Diseases [facility]/ID Connect ID Connect direct line: [phone] (2) Hospital admission due to lack of caregiver: (3) Hospital acquired PNA: (4) Pseudomonas aeruginosa infection: (5) Pneumonia involving left lung: (6) Sacral wound: (7) Chronic osteomyelitis of sacrum: Admission and Anticipated Discharge Date Admission Date: July 18, 2023 Subjective This patient recommendation is based on a telemedicine consult request which was completed asynchronously through chart review and information provided by the primary physician. The patient was not seen or examined today. The evaluation is consultative in nature and all patient care and treatment decisions can either be accepted or rejected by the patient's primary hospital-based treating physician using their own independent medical judgment for their patient. Time Spent Reviewing Chart: 31+ minutes - Pt not in room this AM due to bronch with pulm, with further removal of mucous plugging - Afebrile - Discussed with hospitalist Dr. Lloyd, and per wound care the pt is doing well with wound healing, and his exposed coccyx now appears to be covered with tiss ue. Results & Data Vital Signs (Past 12 Hours) Vital Signs Temp Pulse Pulse Pulse Resp BP BP 08/07/23 09:45 109 H 20 08/07/23 09:25 108 H 20 08/07/23 09:10 108 H 20 08/07/23 09:10 98 H 20 99/62 L 08/07/23 09:05 88 20 105/61 08/07/23 09:00 113 H 20 110/80 08/07/23 08:55 94 H 20 105/71 08/07/23 08:40 94 H 20 08/07/23 08:10 36.5 C 95 H 16 108/73 08/07/23 07:44 93 H 16 08/07/23 03:12 36.5 C 93 H 20 116/81 08/06/23 22:51 36.8 C 98 H 18 109/76 08/06/23 21:58 104 H BP Pulse Ox O2 Del Method O2 Flow Rate FiO2 08/07/23 09:45 108/64 94 Trach Collar 4 08/07/23 09:25 109/70 92 Trach Collar 4 08/07/23 09:10 101/61 92 Trach Collar 4 08/07/23 09:10 93 Trach Collar 4 08/07/23 09:05 97 Trach Collar 4 08/07/23 09:00 96 Trach Collar 4 08/07/23 08:55 100 Trach Collar 4 08/07/23 08:40 105/71 100 Trach Collar 4 08/07/23 08:10 94 Trach Collar 6 08/07/23 07:44 94 Trach Collar 6 24 03:12 100 Trach Collar 6 08/06/23 22:51 96 Trach Collar 6 08/06/23 21:58
--- NOTE | 2023-08-07 09:56 | XRay Report ---
XR chest 1V portable HISTORY: Post bronchoscopy. COMPARISON: Chest 04/05/2024. FINDINGS: Slightly rotated study. No definite pneumothorax. The heart is stable in size. Tracheostomy tube is in good position. There is a left-sided ventriculoperitoneal shunt catheter again noted. The right lung is clear. A small to moderate left pleural effusion and left basilar densities persist. IMPRESSION: 1. No pneumothorax. 2. A small to moderate left pleural effusion and left basilar densities persist. ACT 112: Negative or not required by law. Electronically signed by: Víctor Cox M.D. 08/07/2023 9:54 AM
[2023-08-07] MEDS: PIPER/TAZO 4.5g in D5W MINI-B 100 ML IV STA (10:49)
[2023-08-07 11:24] LABS: Eosinophil Body Fluid Man 2 %; Fluid Mono/Macrophage 40 %; Lymphocyte Body Fluid Man 13 %; Neutrophil Body Fluid Man 45 %
[2023-08-07] MEDS: PIPERACILLIN/TAZOBACTAM 4.5 GM in DEXTROSE 5% MINI-B 100 ML IV SCH (14:26)
[2023-08-07] MEDS: ALBUT/IPRATROP 3MG/0.5MG NEB 3 ML VIAL NEB PRN (18:16)
--- NOTE | 2023-08-07 20:11 | Hospitalist Progress Note ---
Date of Service August 07, 2023 Assessment & Plan (1) Decubitus ulcer of sacral region, stage 4: Plan: s/p debridement in the OR by Dr Issa on 07/31/23 intra-op culture with MSSA, pseudomonas, and providencia zosyn IV had been utilized for coverage of the above pathogens ID following and recs appreicated Wound vac placed on 08/01 Vac then changed on 08/04 and again 08/06 There had been exposed coccyx on examination but during yesterday's woundvac change the coccyx was covered with tissue per wound care team rectal tube remains in place due to ongoing diarrhea c diff negative on 08/03 ongoing diarrhea will pose a large barrier to effective wound healing due to contamination, etc consider stool bulking agent to slow the stool as rectal tube cannot remain indefinitely would Mr Viveros ultimately need a diverting colostomy ?? (2) Hospital acquired PNA: Plan: 08/01 - cxr with worsening infiltrates on left 08/03 - collapse LLL 08/03 - bronchoscopy by Dr Blancas with mucous plugging found in the left-sided bronchial tree s/p removal; cultures sent; pseudomonas resulted today - 08/07 - s/p bronch - minimal secretions LLL, no plugs; thick secretions in trach, however had been treated with zosyn, then changed to cefepime yesterday - but changing back to zosyn remains on aggressive pulmonary toilet for this issue peak O2 requirement 07/31 - 08/01 -- 8-10 liters O2 cont mucomyst nebs BID cont saline nebs BID cont duonebs prn cont IV abx (3) Fever: Plan: either 2nd to infected sacral decubitus ulcer vs left-sided pneumonia/collapse vs autonomic storming vs combination of factors highest temp of 38.3 recorded on 08/02 no fever since cont to follow (4) Gram-positive bacteremia: Plan: Potential culprits - SSTI sacral decubitus ulcer Group C strep bacteremia - source thought 2nd to sacral wound Coag neg staph bacteremia - contaminant vs bacteremia Corynebacterium bacteremia Sputum colonized with pseudomonas 08/03 bronch cultures with pseudomonas once again 08/05 - due to persistent LLL infiltrates Dr Lock from pulmonary advised changing zosyn to cefepime IV the cefepime should cover all recent pathogens from the sacrum as well appreciate ongoing ID support appreciate pulmonary assistance (5) Transaminitis: Plan: resolved (6) Severe protein-calorie malnutrition: Plan: BMI 18, diffuse sarcopenia / muscle wasting present continue PEG tube feedings as previous with peptamen albumin was normal at 3.7 on 07/19/23 (7) History of DVT (deep vein thrombosis): Plan: Eliquis on hold for bronch today defer to pulmonary when safe to resume (8) Pneumatosis coli: Plan: Evaluated by General surgery last admission (mid June 2023) since no surgical abdomen/peritonitis/symptoms no Rx recommended during that admission etiology of the CT findings was uncertain abdominal exam remains benign / soft (9) History of nontraumatic rupture of cerebral aneurysm: Plan: Patient is nonverbal at baseline with chronic contractures in all 4 extremities Acquired quadriplegia [address] head shows encephalomalacia and good shunt placement Ry suffered a ruptured brain aneurysm and SAH 08/2022 Had craniotomy and evacuation. skull fragment was reimplanted in November per family. Had a [employer] shunt placement at [facility]. Has history of severe autonomic dysfunction / paroxysmal sympathetic hyperactivity / autonomic storm which is controlled on medications and has the potential to be confused with sepsis. Cont complex regimen of meds for this issue (dantrolene, scop patch, etc) (10) Autonomic dysfunction: Plan: Continue dantrolene and bromocriptine Continue gabapentin and baclofen for spasticity (11) Decubitus ulcer of calf, unstageable: Plan: Eschar present with no surrounding cellulitis Continue wound care as advised by wound care team (12) Cardiomyopathy: Plan: last echo 07/11/23 - low normal EF 50-55% remains compensated cont beta joon does not require any diuretic at this time (13) Tracheostomy status: Plan: colonized with pseudomonas cont local trach care o2 requirement back to baseline of 6 L see above re: Left-sided infiltrates (14) 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 Plan dispo - numerous referrals made by social work to various SNFs; he will not be returning to [facility] after this admission pt's situation remains very medically complex pt's mother updated this evening by phone Admission and Anticipated Discharge Date Admission Date: July 18, 2023 Subjective saw patient post-bronch was sleeping soundly no respiratory distress pt is nonverbal/in vegetative state - unable to elicit history/ROS per staff continues with liquid stools bronch op note reviewed Review of Systems Review of Systems: Unobtainable due to cognitive status Physical Exam Physical Exam: gen - very thin, NAD, generalized muscle wasting - no change from prior exams; sleeping head - deformity right side from prior craniotomy neck - no JVD; trach in place - clean heart - RRR, s1 s2, no murmur lungs - CTA b/l; decreased BS Left base - no change abd - soft NT ND BS+; PEG tube site where the tube meets the skin is clean; tube itself appears dirty with black color ext - trace edema, pulses 2+ b/l neuro - contractures all extremities Results & Data Results & Data Vital Signs (Past 12 Hours) Vital Signs Temp Pulse Pulse Pulse Resp BP BP 08/07/23 19:52 36.8 C 87 18 103/71 08/07/23 18:33 98 H 18 08/07/23 17:00 08/07/23 15:47 101 H 08/07/23 14:59 37.4 C 104 H 16 110/75 08/07/23 12:56 08/07/23 11:46 36.8 C 92 H 20 113/75 08/07/23 10:09 36.7 C 105 H 20 08/07/23 09:45 109 H 20 08/07/23 09:25 108 H 20 08/07/23 09:10 108 H 20 08/07/23 09:10 98 H 20 99/62 L 08/07/23 09:05 88 20 105/61 08/07/23 09:00 113 H 20 110/80 08/07/23 08:55 94 H 20 105/71 08/07/23 08:40 94 H 20 BP Pulse Ox O2 Del Method O2 Flow Rate FiO2 08/07/23 19:52 98 Trach Collar 6 08/07/23 18:33 94 Trach Collar 28 08/07/23 17:00 Trach Collar 6 28 08/07/23 15:47 08/07/23 14:59 98 Trach Collar 6 08/07/23 12:56 Trach Collar 6 28 08/07/23 11:46 97 Trach Collar 6 08/07/23 10:09 95/68 L 96 Trach Collar 7 28 08/07/23 09:45 108/64 94 Trach Collar 4 08/07/23 09:25 109/70 92 Trach Collar 4 08/07/23 09:10 101/61 92 Trach Collar 4 08/07/23 09:10 93 Trach Collar 4 08/07/23 09:05 97 Trach Collar 4 08/07/23 09:00 96 Trach Collar 4 08/07/23 08:55 100 Trach Collar 4 08/07/23 08:40 105/71 100 Trach Collar 4 Laboratory Results Laboratory Results - last 24 hr 08/07/23 08/07/23 08:00 12:15 POC Glucose 119 H Fluid Neutrophils % 45 Fluid Lymphocytes % 13 Fluid Eosinophils % 2 Fl Monocyt/Macrophag % 40 Fluid Comment Diagnostic Findings Chest X-Ray 08/07/23 09:06 XR chest 1V portable HISTORY: Post bronchoscopy. COMPARISON: Chest 04/05/2024. FINDINGS: Slightly rotated study. No definite pneumothorax. The heart is stable in size. Tracheostomy tube is in good position. There is a left-sided ventriculoperitoneal shunt catheter again noted. The right lung is clear. A small to moderate left pleural effusion and left basilar densities persist. IMPRESSION: 1. No pneumothorax. 2. A small to moderate left pleural effusion and left basilar densities persist. ACT 112: Negative or not required by law. Electronically signed by: Víctor Cox M.D. 08/07/2023 9:54 AM PG Care Time/CCT Total # of Minutes Spent Total Time Spent with Patient: Total time spent is greater than 50% in coordination of care (as documented) at patient's floor/unit and/or counseling patient: Coding Level of Care Code 31617 SUB INP/OBS CARE 2/35MIN Diagnoses Decubitus ulcer of sacral region, stage 4 L89.154 Hospital acquired PNA J18.9; Y95 Fever R50.9 Gram-positive bacteremia R78.81 Transaminitis R74.01 Severe protein-calorie malnutrition E43 History of DVT (deep vein thrombosis) Z86.718 Pneumatosis coli K63.89 History of nontraumatic rupture of cerebral aneurysm Z86.79 Autonomic dysfunction G90.9 Decubitus ulcer of calf, unstageable L89.890 Cardiomyopathy I42.9 Tracheostomy status Z93.0 Nonverbal R47.01 Quadriplegia G82.50 Sammi rash of groin B37.89 Diarrhea R19.7
--- NOTE | 2023-08-08 07:49 | XRay Report ---
XR chest 1V portable CLINICAL HISTORY: f/u COMPARISON STUDY: Chest radiograph August 07, 2023. FINDINGS: Tracheostomy tube and partial visualization catheter are noted. There is no pneumothorax. S mall left pleural effusion has slightly decreased. Left lung airspace opacity has slightly improved. Right lung is clear. Cardiomediastinal silhouette is stable. Pulmonary vascularity is normal. IMPRESSION: 1. Slight improvement in left lung airspace opacities and a small left pleural effusion. 2. No pneumothorax. ACT 112: Negative or not required by law. Electronically signed by: Kirby Spencer M.D. 08/08/2023 7:48 AM
[2023-08-08 10:47] LABS: Albumin Level 3.7 gm/dl (3.4-5.0); Anion Gap 10 (3-11); BUN Creatinine Ratio 42.2 (10-20); Blood Urea Nitrogen 19 mg/dl (6-23); C Reactive Protein 5.14 mg/dl (0-0.5); Calcium 9.9 mg/dl (8.6-10.3); Carbon Dioxide 28 mmol/L (21-32); Chloride 102 mmol/L (98-107); Creatinine Clr Calc Pharmacy 176.7 ml/min; Est GFR (African American) > 150.0 ml/min; Est GFR (Non-African American) 149.7 ml/min; Glucose 88 mg/dl (70-99(Fasting)); Potassium 4.2 mmol/L (3.5-5.1); Sodium 140 mmol/L (136-145)
--- NOTE | 2023-08-08 12:42 | Pulmonology Progress Note ---
Date of Service August 08, 2023 Assessment & Plan (1) Pneumonia involving left lung: (2) Respiratory failure: (3) Tracheostomy status: Plan 32-year-old complex male with past medical history of cardiomyopathy, PEG tube, ruptured cerebral aneurysm resulting in chronic trach dependence and and nonverbal state who is presenting with severe left-sided pneumonia. -- Left lung collapse S/p bronchoscopy 08/03/2023 with mucous plugging Bron culture growing Pseudomonas which is pansensitive except for meropenem --Trach dependent respiratory failure Continue with trach care Has size 8 cuffed Bronc culture growing Pseudomonas Plan: S/p repeat bronchoscopy 08/07/2023. Chest x-ray from today shows persistent open left lower lobe. Consolidative process in the left side still persist Complete the course of antibiotics for 10 days Continue with CoughAssist Continue with 7% saline as well as Mucomyst nebulized, would recommend to continue with the nebulizer regimen even at home CoughAssist should also be thought of on discharge given how the secretions are Felice Su [phone] No further recommendation from pulmonary perspective, will sign off Please call directly with any questions Please note the above document was generated using voice recognition software. It may contain grammatical, syntax or spelling errors.Any formal questions or concerns about the content, text or information contained within the body of this dictation should be directly addressed to the provider for clarification. Admission and Anticipated Discharge Date Admission Date: July 18, 2023 Subjective Patient seen and examined at bedside. No acute distress, no adverse events overnight Patient is nonverbal. Review of Systems 2 Review of Systems: Unobtainable due to cognitive status and Unobtainable due to reduced consciousness Physical Exam 2 Physical Exam: Constitutional: No acute distress HEENT: PERRLA, positive size 8 trach Respiratory system: Decreased air entry on the left side, no wheeze, no rhonchi, mild crackles bilateral lower lobes CVS: S1-S2 positive, no murmurs or gallops Abdomen: Soft, nontender, nondistended, positive bowel sounds x4 Extremities: +2 pulses bilaterally radialis/ dorsalis pedis, no cyanosis, no edema Neuro: Quadriplegic, not following any commands, spastic extremities Psych: Unable to assess G/U: Positive Silva Skin: no rashes, warm and dry Lymphatic: no cervical or axillary lymphadenopathy Results & Data Results & Data Vital Signs (Past 12 Hours) Vital Signs Temp Pulse Pulse Resp BP BP Pulse Ox 08/08/23 11:16 37.0 C 88 16 108/73 94 08/08/23 07:30 36.9 C 86 18 106/72 96 08/08/23 07:17 88 08/08/23 05:57 91 H 16 98 08/08/23 04:46 36.7 C 88 18 104/71 97 O2 Del Method O2 Flow Rate FiO2 08/08/23 11:16 Trach Collar 7 08/08/23 07:30 Trach Collar 7 08/08/23 07:17 08/08/23 05:57 Trach Collar 6 28 08/08/23 04:46 Trach Collar 6 Laboratory Results 08/06/23 07:50 08/08/23 10:02 PG Care Time/CCT Total # of Minutes Spent Total Time Spent with Patient: Total time spent is greater than 50% in coordination of care (as documented) at patient's floor/unit and/or counseling patient: Coding Level of Care Code 92153 SUB INP/OBS CARE 2/35MIN Diagnoses Pneumonia involving left lung J18.9 Respiratory failure J96.90 Tracheostomy status Z93.0
--- NOTE | 2023-08-08 20:09 | Hospitalist Progress Note ---
Date of Service August 08, 2023 Assessment & Plan (1) Decubitus ulcer of sacral region, stage 4: Plan: s/p debridement in the OR by Dr Issa on 07/31/23 intra-op culture with MSSA, pseudomonas, and providencia zosyn IV had been utilized for coverage of the above pathogens ID following and recs appreicated Wound vac placed on 08/01 Vac then changed on 08/04 and again 08/06 There had been exposed coccyx on examination but during yesterday's woundvac change the coccyx was covered with tissue per wound care team rectal tube remains in place due to ongoing diarrhea c diff negative on 08/03 ongoing diarrhea will pose a large barrier to effective wound healing due to contamination, etc consider stool bulking agent to slow the stool as rectal tube cannot remain indefinitely would Mr Viveros ultimately need a diverting colostomy ?? (2) Hospital acquired PNA: Plan: 08/01 - cxr with worsening infiltrates on left 08/03 - collapse LLL 08/03 - bronchoscopy by Dr Blancas with mucous plugging found in the left-sided bronchial tree s/p removal; cultures sent; pseudomonas resulted - sens pending today - 08/07 - s/p bronch - minimal secretions LLL, no plugs; thick secretions in trach, however had been treated with zosyn, then changed to cefepime mid-week - but changed back to zosyn at request of infectious diseases remains on aggressive pulmonary toilet for this issue peak O2 requirement 07/31 - 08/01 -- 8-10 liters O2 cont mucomyst nebs BID cont saline nebs BID cont duonebs prn cont IV abx (3) Fever: Plan: either 2nd to infected sacral decubitus ulcer vs left-sided pneumonia/collapse vs autonomic storming vs combination of factors highest temp of 38.3 recorded on 08/02 no fever since cont to follow (4) Gram-positive bacteremia: Plan: Potential culprits - SSTI sacral decubitus ulcer Group C strep bacteremia - source thought 2nd to sacral wound Coag neg staph bacteremia - contaminant vs bacteremia Corynebacterium bacteremia appreciate ongoing ID support appreciate pulmonary assistance (5) Transaminitis: Plan: resolved (6) Severe protein-calorie malnutrition: Plan: BMI 18, diffuse sarcopenia / muscle wasting present continue PEG tube feedings as previous with peptamen albumin was normal at 3.7 on 07/19/23 (7) History of DVT (deep vein thrombosis): Plan: Eliquis on hold for bronch today defer to pulmonary when safe to resume (8) Pneumatosis coli: Plan: Evaluated by General surgery last admission (mid June 2023) since no surgical abdomen/peritonitis/symptoms no Rx recommended during that admission etiology of the CT findings was uncertain abdominal exam remains benign / soft (9) History of nontraumatic rupture of cerebral aneurysm: Plan: Patient is nonverbal at baseline with chronic contractures in all 4 extremities Acquired quadriple[address] head shows encephalomalacia and good shunt placement Ry suffered a ruptured brain aneurysm and SAH 08/2022 Had craniotomy and evacuation. skull fragment was reimplanted in November per family. Had a BARREL ASSEMBLY INSPECTOR shunt placement at [facility]. Has history of severe autonomic dysfunction / paroxysmal sympathetic hyperactivity / autonomic storm which is controlled on medications and has the potential to be confused with sepsis. Cont complex regimen of meds for this issue (dantrolene, scop patch, etc) (10) Autonomic dysfunction: Plan: Continue dantrolene and bromocriptine Continue gabapentin and baclofen for spasticity (11) Decubitus ulcer of calf, unstageable: Plan: Eschar present with no surrounding cellulitis Continue wound care as advised by wound care team (12) Cardiomyopathy: Plan: last echo 07/11/23 - low normal EF 50-55% remains compensated cont beta joon does not require any diuretic at this time (13) Tracheostomy status: Plan: colonized with pseudomonas cont local trach care o2 requirement back to baseline of 6 L see above re: Left-sided infiltrates (14) 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 Plan dispo - numerous referrals made by social work to various SNFs; he will not be returning to [facility] after this admission pt's situation remains very medically complex pt's mother updated by phone yesterday mild left ear ulceration - bactroban ointment BID x 7 days Admission and Anticipated Discharge Date Admission Date: July 18, 2023 Subjective no new events tele stable tolerating tube feedings continues with copious liquid stool via rectal tube Review of Systems Review of Systems: Unobtainable due to cognitive status (and nonverbal status/vegetative state) Physical Exam Physical Exam: gen - very thin, NAD, generalized muscle wasting - no change from prior exams; sleeping head - deformity right side from prior craniotomy ears - left ear pinnae - small ulceration with mild erythema of the cartilage but no drainage neck - no JVD; trach in place - clean heart - RRR, s1 s2, no murmur lungs - CTA b/l; decreased BS Left base but airation is a bit better today than prior exams abd - soft NT ND BS+; PEG tube site where the tube meets the skin is clean; tube itself appears dirty with black color ext - trace edema, pulses 2+ b/l neuro - contractures all extremities Results & Data Results & Data Vital Signs (Past 12 Hours) Vital Signs Temp Pulse Pulse Resp BP BP Pulse Ox 08/08/23 19:47 36.6 C 93 H 17 107/73 98 08/08/23 19:20 97 H 18 96 08/08/23 15:52 91 H 08/08/23 15:45 119/83 08/08/23 15:30 36.9 C 79 16 88/62 L 100 08/08/23 11:16 37.0 C 88 16 108/73 94 O2 Del Method O2 Flow Rate FiO2 08/08/23 19:47 Trach Collar 08/08/23 19:20 Trach Collar 6 28 08/08/23 15:52 08/08/23 15:45 08/08/23 15:30 Trach Collar 7 08/08/23 11:16 Trach Collar 7 Laboratory Results Laboratory Results - last 24 hr 08/08/23 10:02 ESR 106 H Sodium 140 Potassium 4.2 Chloride 102 Carbon Dioxide 28 Anion Gap 10 BUN 19 Creatinine 0.45 L Est Cr Clr Drug Dosing 176.7 Est GFR ( Amer) > 150.0 Est GFR (Non-Af Amer) 149.7 BUN/Creatinine Ratio 42.2 H Glucose 88 Calcium 9.9 C-Reactive Protein 5.14 H Albumin 3.7 PG Care Time/CCT Total # of Minutes Spent Total Time Spent with Patient: Total time spent is greater than 50% in coordination of care (as documented) at patient's floor/unit and/or counseling patient: Coding Level of Care Code 80659 SUB INP/OBS CARE 1/25MIN Diagnoses Decubitus ulcer of sacral region, stage 4 L89.154 Hospital acquired PNA J18.9; Y95 Fever R50.9 Gram-positive bacteremia R78.81 Transaminitis R74.01 Severe protein-calorie malnutrition E43 History of DVT (deep vein thrombosis) Z86.718 Pneumatosis coli K63.89 History of nontraumatic rupture of cerebral aneurysm Z86.79 Autonomic dysfunction G90.9 Decubitus ulcer of calf, unstageable L89.890 Cardiomyopathy I42.9 Tracheostomy status Z93.0 Nonverbal R47.01 Quadriplegia G82.50 Sammi rash of groin B37.89 Diarrhea R19.7
[2023-08-08] MEDS: MUPIROCIN 2% OINT 22 GM TUBE EXT SCH (21:21)
[2023-08-09] MEDS: APIXABAN 5 MG TABLET PO ONE (11:33)
[2023-08-09] MEDS: Cefepime 2,000 MG Extended Infusion IV SCH (11:36)
--- NOTE | 2023-08-09 19:23 | Hospitalist Progress Note ---
Date of Service August 09, 2023 Assessment & Plan (1) Decubitus ulcer of sacral region, stage 4: Plan: s/p debridement in the OR by Dr Issa on 07/31/23 intra-op culture with MSSA, pseudomonas, and providencia zosyn IV had been utilized for coverage of the above pathogens ID following and recs appreicated Wound vac placed on 08/01 Vac then changed on 08/04 and again 08/06 There had been exposed coccyx on examination but during yesterday's woundvac change the coccyx was covered with tissue per wound care team rectal tube remains in place due to ongoing diarrhea c diff negative on 08/03 ongoing diarrhea will pose a large barrier to effective wound healing due to contamination, etc will add cholestyramine to help with stool bulking so that rectal tube can ultimately be removed would Mr Viveros ultimately need a diverting colostomy if diarrhea issue continues and he continues with contamination of his wound?? (2) Hospital acquired PNA: Plan: 08/01 - cxr with worsening infiltrates on left 08/03 - collapse LLL 08/03 - bronchoscopy by Dr Blancas with mucous plugging found in the left-sided bronchial tree s/p removal; cultures sent; pseudomonas resulted - sens pending today - 08/07 - s/p bronch - minimal secretions LLL, no plugs; thick secretions in trach, however had been treated with zosyn, then changed to cefepime mid-week - but changed back to zosyn at request of infectious diseases culture from bronch shows that the pseudomonas is now intermediate resistance thus, change zosyn back to cefepime IV remains on aggressive pulmonary toilet for this issue peak O2 requirement 07/31 - 08/01 -- 8-10 liters O2 cont mucomyst nebs BID cont saline nebs BID cont duonebs prn cont IV abx (3) Fever: Plan: either 2nd to infected sacral decubitus ulcer vs left-sided pneumonia/collapse vs autonomic storming vs combination of factors highest temp of 38.3 recorded on 08/02 low-grade temp today of 37.8 - resolved w/o issue cont to follow (4) Gram-positive bacteremia: Plan: Potential culprits - SSTI sacral decubitus ulcer Group C strep bacteremia - source thought 2nd to sacral wound Coag neg staph bacteremia - contaminant vs bacteremia Corynebacterium bacteremia appreciate ongoing ID support appreciate pulmonary assistance (5) Transaminitis: Plan: resolved (6) Severe protein-calorie malnutrition: Plan: BMI 18, diffuse sarcopenia / muscle wasting present continue PEG tube feedings as previous with peptamen albumin was normal at 3.7 on 07/19/23 (7) History of DVT (deep vein thrombosis): Plan: Eliquis on hold for bronch today defer to pulmonary when safe to resume (8) Pneumatosis coli: Plan: Evaluated by General surgery last admission (mid June 2023) since no surgical abdomen/peritonitis/symptoms no Rx recommended during that admission etiology of the CT findings was uncertain abdominal exam remains benign / soft (9) History of nontraumatic rupture of cerebral aneurysm: Plan: Patient is nonverbal at baseline with chronic contractures in all 4 extremities Acquired quad[address] head shows encephalomalacia and good shunt placement Ry suffered a ruptured brain aneurysm and SAH 08/2022 Had craniotomy and evacuation. skull fragment was reimplanted in November per family. Had a MEDICAL INFORMATION SPECIALIST shunt placement at [facility]. Has history of severe autonomic dysfunction / paroxysmal sympathetic hyperactivity / autonomic storm which is controlled on medications and has the potential to be confused with sepsis. Cont complex regimen of meds for this issue (dantrolene, scop patch, etc) (10) Autonomic dysfunction: Plan: Continue dantrolene and bromocriptine Continue gabapentin and baclofen for spasticity (11) Decubitus ulcer of calf, unstageable: Plan: Eschar present with no surrounding cellulitis Continue wound care as advised by wound care team (12) Cardiomyopathy: Plan: last echo 07/11/23 - low normal EF 50-55% remains compensated cont beta joon does not require any diuretic at this time (13) Tracheostomy status: Plan: colonized with pseudomonas cont local trach care o2 requirement back to baseline of 6 L see above re: Left-sided infiltrates (14) 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 Plan dispo - numerous referrals made by social work to various SNFs; he will not be returning to [facility] after this admission pt's situation remains very medically complex mild left ear ulceration - bactroban ointment BID x 7 days Admission and Anticipated Discharge Date Admission Date: July 18, 2023 Subjective no new events although did have low-grade temp early today rectal tube remains with liquid stool stable o2 sats on 6 L O2 no concerns per staff wound vac in place over sacrum Review of Systems Review of Systems: Unobtainable due to cognitive status Physical Exam Physical Exam: gen - very thin, NAD, generalized muscle wasting - no change from prior exams; awake with eyes open eyes - nystagmus to the left, occasional grimacing head - deformity right side from prior craniotomy neck - no JVD; trach in place - clean heart - RRR, s1 s2, no murmur lungs - CTA b/l; improved airation L base abd - soft NT ND BS+; PEG tube site where the tube meets the skin is clean; tube itself appears dirty with black color ext - trace edema, pulses 2+ b/l neuro - contractures all extremities Results & Data Results & Data Vital Signs (Past 12 Hours) Vital Signs Temp Pulse Pulse Resp BP Pulse Ox O2 Del Method 08/09/23 14:39 36.9 C 106 H 18 111/75 93 Room Air 08/09/23 14:03 107 H 08/09/23 11:50 Trach Collar 08/09/23 10:49 37.6 C H 103 H 18 108/72 95 Room Air 08/09/23 08:16 102/69 08/09/23 08:14 37.8 C H 107 H 18 100/65 96 Room Air O2 Flow Rate 08/09/23 14:39 08/09/23 14:03 08/09/23 11:50 6 08/09/23 10:49 08/09/23 08:16 08/09/23 08:14 PG Care Time/CCT Total # of Minutes Spent Total Time Spent with Patient: Total time spent is greater than 50% in coordination of care (as documented) at patient's floor/unit and/or counseling patient: Coding Level of Care Code 26944 SUB INP/OBS CARE 2/35MIN Diagnoses Decubitus ulcer of sacral region, stage 4 L89.154 Hospital acquired PNA J18.9; Y95 Fever R50.9 Gram-positive bacteremia R78.81 Transaminitis R74.01 Severe protein-calorie malnutrition E43 History of DVT (deep vein thrombosis) Z86.718 Pneumatosis coli K63.89 History of nontraumatic rupture of cerebral aneurysm Z86.79 Autonomic dysfunction G90.9 Decubitus ulcer of calf, unstageable L89.890 Cardiomyopathy I42.9 Tracheostomy status Z93.0 Nonverbal R47.01 Quadriplegia G82.50 Sammi rash of groin B37.89 Diarrhea R19.7
[2023-08-09] MEDS: CHOLESTYRAMINE LIGHT 4 GM PKT PEG SCH (21:13)
[2023-08-10 08:45] LABS: Hematocrit (blood only) 30.8 % (42.0-52.0); Hemoglobin 9.4 g/dl (14.0-18.0); Mean Corpuscular Hemoglobin 29.8 pg (25.0-34.0); Mean Corpuscular Hgb Conc 30.5 g/dL (32.0-36.0); Mean Corpuscular Volume 97.8 fL (80.0-100.0); Mean Platelet Volume 10.3 fL (9.4-12.4); Platelet Count 524 K/uL (130-400); RDW Coefficient of Variation 14.5 % (11.5-14.5); RDW Standard Deviation 51.5 fL (36.4-46.3); Red Blood Count 3.15 M/uL (4.70-6.10)
[2023-08-10 09:00] LABS: Anion Gap 9 (3-11); BUN Creatinine Ratio 51.2 (10-20); Blood Urea Nitrogen 21 mg/dl (6-23); Calcium 9.6 mg/dl (8.6-10.3); Carbon Dioxide 27 mmol/L (21-32); Chloride 103 mmol/L (98-107); Creatinine Clr Calc Pharmacy 193.9 ml/min; Est GFR (African American) > 150.0 ml/min; Est GFR (Non-African American) > 150.0 ml/min; Glucose 94 mg/dl (70-99(Fasting)); Iron 44 mcg/dl (35-175); Potassium 3.9 mmol/L (3.5-5.1); Sodium 139 mmol/L (136-145); Total Iron Binding Cap Calc 292 mcg/dl (250-450); Transferrin (FE) Percent Satur 15 % (20-50); Unsaturated Iron Binding Cap 248 mcg/dl (155-355)
[2023-08-10 09:20] LABS: Ferritin 166.8 ng/ml (8-388)
[2023-08-10] MEDS: TUBE FEEDING WATER FLUSH GT SCH (11:10)
[2023-08-10] MEDS: FIBERSOURCE HN 1.2 CAL 1000 ML BAG GT SCH (11:10)
--- NOTE | 2023-08-10 17:37 | Hospitalist Progress Note ---
Date of Service August 10, 2023 Assessment & Plan (1) Decubitus ulcer of sacral region, stage 4: Plan: s/p debridement in the OR by Dr Issa on 07/31/23 intra-op culture with MSSA, pseudomonas, and providencia zosyn IV had been utilized for coverage of the above pathogens Wound vac placed on 08/01 Vac then changed on 08/04, 08/06, and 08/08; will be due to change tomorrow There had been exposed coccyx on examination about 2 weeks ago but during the most recent woundvac change the coccyx is now covered with tissue per wound care team rectal tube remains in place due to ongoing diarrhea c diff negative on 08/03 ongoing diarrhea will pose a large barrier to effective wound healing due to contamination, etc added cholestyramine to help with stool bulking so that rectal tube can ultimately be removed would Mr Viveros ultimately need a diverting colostomy if diarrhea issue continues and he continues with contamination of his wound?? (2) Chronic osteomyelitis of sacrum: Plan: coccyx cont IV cefepime (previously on IV zosyn - changed to cefepime this weekend due to intermediate resistance of pseudomonas on bronch culture) 6 weeks of IV abx recommended by ID course --> 07/3109/10/23 will d/w ID on Friday (3) Hospital acquired PNA: Plan: 08/01 - cxr with worsening infiltrates on left 08/03 - collapse LLL 08/03 - bronchoscopy by Dr Blancas with mucous plugging found in the left-sided bronchial tree s/p removal; 08/07 - s/p bronch by Dr Lock - minimal secretions LLL, no plugs; thick secretions in trach, however culture from bronch shows that the pseudomonas is now intermediate resistance thus, changed zosyn back to cefepime IV on 08/09/23 remains on aggressive pulmonary toilet for this issue peak O2 requirement 07/31 - 08/01 -- 8-10 liters O2 requiring 7 L at this time cont mucomyst nebs BID cont saline nebs BID cont duonebs prn cont cough assist device (4) Fever: Plan: either 2nd to infected sacral decubitus ulcer vs left-sided pneumonia/collapse vs autonomic storming vs combination of factors highest temp of 38.3 recorded on 08/02 low-grade temp of 37.8 on 08/09 - resolved, has not recurred today cont to follow (5) Gram-positive bacteremia: Plan: Potential culprits - SSTI sacral decubitus ulcer Group C strep bacteremia - source thought 2nd to sacral wound Coag neg staph bacteremia - contaminant vs bacteremia Corynebacterium bacteremia appreciate ongoing ID support appreciate pulmonary assistance (6) Transaminitis: Plan: resolved (7) Severe protein-calorie malnutrition: Plan: BMI 18, diffuse sarcopenia / muscle wasting present continue PEG tube feedings as previous with peptamen albumin was normal at 3.7 on 07/19/23 (8) History of DVT (deep vein thrombosis): Plan: Eliquis on hold for bronch today defer to pulmonary when safe to resume (9) Pneumatosis coli: Plan: Evaluated by General surgery last admission (mid June 2023) since no surgical abdomen/peritonitis/symptoms no Rx recommended during that admission etiology of the CT findings was uncertain abdominal exam remains benign / soft (10) History of nontraumatic rupture of cerebral aneurysm: Plan: Patient is nonverbal at baseline with chronic contractures in all 4 extremities Acquired quad[address] head shows encephalomalacia and good shunt placement Ry suffered a ruptured brain aneurysm and SAH 08/2022 Had craniotomy and evacuation. skull fragment was reimplanted in November per family. Had a ELECTRICAL JOURNEYMAN shunt placement at [facility]. Has history of severe autonomic dysfunction / paroxysmal sympathetic hyperactivity / autonomic storm which is controlled on medications and has the potential to be confused with sepsis. Cont complex regimen of meds for this issue (dantrolene, scop patch, etc) (11) Autonomic dysfunction: Plan: Continue dantrolene and bromocriptine Continue gabapentin and baclofen for spasticity (12) Decubitus ulcer of calf, unstageable: Plan: Eschar present with no surrounding cellulitis Continue wound care as advised by wound care team (13) Cardiomyopathy: Plan: last echo 07/11/23 - low normal EF 50-55% remains compensated cont beta joon does not require any diuretic at this time (14) Tracheostomy status: Plan: colonized with pseudomonas cont local trach care o2 requirement back to baseline of 6 L see above re: Left-sided infiltrates (15) 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 Plan dispo - numerous referrals made by social work to various SNFs; he will not be returning to [facility] after this admission pt's situation remains very medically complex mild left ear ulceration - bactroban ointment BID x 7 days - stable pt's mother updated at bedside today Admission and Anticipated Discharge Date Admission Date: July 18, 2023 Subjective pt's mother at bedside during the visit she had asked why his bolus feedings were increased from QID to 5x's/day review of nutrition notes show that Peptamen 1.5 is not available/in stock; thus, changed to Jevity 1.5 and thus we need 1 additional feeding each day to meet his caloric needs per respiratory no significant secretions still using cough assist device however still with loose stool via rectal tube Review of Systems Review of Systems: Unobtainable due to cognitive status (nonverbal status ) Physical Exam Physical Exam: gen - NAD, was on the cough assist device during the visit; no change in overall appearance eyes - nystagmus to the left ear - left pinnae - tiny ulceration on lateral portion of cartilage, no purulence, minimal erythema head - deformity right side from prior craniotomy neck - no JVD; trach in place - clean heart - RRR, s1 s2, no murmur lungs - CTA b/l; airation L base nearly normal today; no rales or wheeze abd - soft NT ND BS+; PEG tube site where the tube meets the skin is clean ext - trace edema, pulses 2+ b/l neuro - contractures all extremities Results & Data Results & Data Vital Signs (Past 12 Hours) Vital Signs Temp Pulse Pulse Resp BP Pulse Ox O2 Del Method 08/10/23 15:00 98 H 08/10/23 12:30 36.6 C 95 H 16 108/79 93 Trach Collar 08/10/23 09:00 Trach Collar 08/10/23 08:00 73 08/10/23 07:57 36.6 C 81 16 102/68 100 Trach Collar 08/10/23 07:04 82 20 99 Trach Collar O2 Flow Rate FiO2 08/10/23 15:00 08/10/23 12:30 7 08/10/23 09:00 6 08/10/23 08:00 08/10/23 07:57 7 08/10/23 07:04 6 28 Laboratory Results Laboratory Results - last 24 hr 08/10/23 08:18 WBC 13.00 H RBC 3.15 L Hgb 9.4 L Hct 30.8 L MCV 97.8 MCH 29.8 MCHC 30.5 L RDW Std Deviation 51.5 H RDW Coeff of Dario 14.5 Plt Count 524 H MPV 10.3 Sodium 139 Potassium 3.9 Chloride 103 Carbon Dioxide 27 Anion Gap 9 BUN 21 Creatinine 0.41 L Est Cr Clr Drug Dosing 193.9 Est GFR ( Amer) > 150.0 Est GFR (Non-Af Amer) > 150.0 BUN/Creatinine Ratio 51.2 H Glucose 94 Calcium 9.6 Iron 44 TIBC 292 Unsaturated IBC 248 Transferrin % Sat 15 L Ferritin 166.8 PG Care Time/CCT Total # of Minutes Spent Total Time Spent with Patient: Total time spent is greater than 50% in coordination of care (as documented) at patient's floor/unit and/or counseling patient: Coding Level of Care Code 98672 SUB INP/OBS CARE 2/35MIN Diagnoses Decubitus ulcer of sacral region, stage 4 L89.154 Chronic osteomyelitis of sacrum M86.68 Hospital acquired PNA J18.9; Y95 Fever R50.9 Gram-positive bacteremia R78.81 Transaminitis R74.01 Severe protein-calorie malnutrition E43 History of DVT (deep vein thrombosis) Z86.718 Pneumatosis coli K63.89 History of nontraumatic rupture of cerebral aneurysm Z86.79 Autonomic dysfunction G90.9 Decubitus ulcer of calf, unstageable L89.890 Cardiomyopathy I42.9 Tracheostomy status Z93.0 Nonverbal R47.01 Quadriplegia G82.50 Sammi rash of groin B37.89 Diarrhea R19.7
--- NOTE | 2023-08-11 18:39 | Hospitalist Progress Note ---
Date of Service August 11, 2023 Assessment & Plan (1) Decubitus ulcer of sacral region, stage 4: Plan: s/p debridement in the OR by Dr Issa on 07/31/23 intra-op culture with MSSA, pseudomonas, and providencia zosyn IV had been utilized for coverage of the above pathogens Wound vac placed on 08/01 Vac then changed on 08/04, 08/06, 08/08 and again today There had been exposed coccyx on examination about 2 weeks ago but during the most recent woundvac changes - including today - the coccyx is now covered with tissue per wound care team overall the wound is slowly healing rectal tube remains in place due to ongoing diarrhea c diff negative on 08/03 ongoing diarrhea will pose a large barrier to effective wound healing due to contamination, etc added cholestyramine to help with stool bulking so that rectal tube can ultimately be removed would Mr Viveros ultimately need a diverting colostomy if diarrhea issue continues and he continues with contamination of his wound?? rectal tube per on-line resources can remain for up to 28 days had received 14+ days of zinc therapy - stopped due to risk of causing copper def cont vit C and MVI (2) Chronic osteomyelitis of sacrum: Plan: coccyx cont IV cefepime (previously on IV zosyn - changed to cefepime this past weekend due to intermediate resistance of pseudomonas on bronch culture) 6 weeks of IV abx recommended by ID course --> 07/3109/10/23 (3) Hospital acquired PNA: Plan: 08/01 - cxr with worsening infiltrates on left 08/03 - collapse LLL 08/03 - bronchoscopy by Dr Blancas with mucous plugging found in the left-sided bronchial tree s/p removal; 08/07 - s/p bronch by Dr Lock - minimal secretions LLL, no plugs; thick secretions in trach, however culture from bronch shows that the pseudomonas is now intermediate resistance thus, changed zosyn back to cefepime IV on 08/09/23 remains on aggressive pulmonary toilet for this issue peak O2 requirement 07/31 - 08/01 -- 8-10 liters O2 requiring 7 L at this time cont mucomyst nebs BID cont saline nebs BID cont duonebs prn cont cough assist device (4) Fever: Plan: either 2nd to infected sacral decubitus ulcer vs left-sided pneumonia/collapse vs autonomic storming vs combination of factors highest temp of 38.3 recorded on 08/02 low-grade temp of 37.8 on 08/09 - resolved, has not recurred since then cont to follow (5) Gram-positive bacteremia: Plan: Potential culprits - SSTI sacral decubitus ulcer Group C strep bacteremia - source thought 2nd to sacral wound Coag neg staph bacteremia - contaminant vs bacteremia Corynebacterium bacteremia appreciate ongoing ID support appreciate pulmonary assistance (6) Transaminitis: Plan: resolved (7) Severe protein-calorie malnutrition: Plan: BMI 18, diffuse sarcopenia / muscle wasting present continue PEG tube feedings - peptamen not available, thus nutrition changed product to Jevity albumin was normal at 3.7 on 07/19/23 (8) History of DVT (deep vein thrombosis): Plan: Eliquis 5mg BID I am uncertain when the initial VTE event occurred If it has been 6+ months since the initial DVT event we can cut back to preventive doses at 2.5mg BID (9) Pneumatosis coli: Plan: Evaluated by General surgery last admission (mid June 2023) since no surgical abdomen/peritonitis/symptoms no Rx recommended during that admission etiology of the CT findings was uncertain abdominal exam remains benign / soft (10) History of nontraumatic rupture of cerebral aneurysm: Plan: Patient is nonverbal at baseline with chronic contractures in all 4 extremities Acquired quadriplegia [address] head shows encephalomalacia and good shunt placement Ry suffered a ruptured brain aneurysm and SAH 08/2022 Had craniotomy and evacuation. skull fragment was reimplanted in November per family. Had a [employer] ATTENDANT shunt placement at [facility]. Has history of severe autonomic dysfunction / paroxysmal sympathetic hyperactivity / autonomic storm which is controlled on medications and has the potential to be confused with sepsis. 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 Plan dispo - numerous referrals made by social work to various SNFs; he will not be returning to [facility] after this admission pt's situation remains very medically complex mild left ear ulceration - bactroban ointment BID x 7 days - stable pt's mother updated at bedside yesterday Admission and Anticipated Discharge Date Admission Date: July 18, 2023 Subjective wound vac exchanged today by wound care team per wound care the sacral decub is showing signs of healing per nursing staff no acute issues needed routine suctioning today by respiratory stool in rectal tube bag remains liquid no other problems today Review of Systems Review of Systems: Unobtainable due to cognitive status (nonverbal status ) Physical Exam Physical Exam: gen - NAD, sleeping; no change in overall appearance; thin ear - left pinnae - tiny ulceration on lateral portion of cartilage, no purulence, minimal erythema -- unchanged head - deformity right side from prior craniotomy neck - no JVD; trach in place - clean; head tilt to left heart - RRR, s1 s2, no murmur lungs - CTA b/l; airation L base nearly normal; no rales or wheeze abd - soft NT ND BS+; PEG tube site where the tube meets the skin is clean ext - trace edema, pulses 2+ b/l neuro - contractures all extremities Results & Data Results & Data Vital Signs (Past 12 Hours) Vital Signs Temp Pulse Pulse Resp BP Pulse Ox O2 Del Method 08/11/23 14:42 36.7 C 94 H 16 106/73 100 Trach Collar 08/11/23 12:08 36.7 C 95 H 16 112/75 94 Trach Collar 08/11/23 08:17 37.1 C 78 14 99/65 L 97 Trach Collar 08/11/23 08:02 90 20 93 Trach Collar 08/11/23 07:40 Trach Collar O2 Flow Rate FiO2 08/11/23 14:42 6 28 08/11/23 12:08 6 08/11/23 08:17 5 08/11/23 08:02 28 08/11/23 07:40 6 28 PG Care Time/CCT Total # of Minutes Spent Total Time Spent with Patient: Total time spent is greater than 50% in coordination of care (as documented) at patient's floor/unit and/or counseling patient: Coding Level of Care Code 47245 SUB INP/OBS CARE 07/17MIN Diagnoses Decubitus ulcer of sacral region, stage 4 L89.154 Chronic osteomyelitis of sacrum M86.68 Hospital acquired PNA J18.9; Y95 Fever R50.9 Gram-positive bacteremia R78.81 Transaminitis R74.01 Severe protein-calorie malnutrition E43 History of DVT (deep vein thrombosis) Z86.718 Pneumatosis coli K63.89 History of nontraumatic rupture of cerebral aneurysm Z86.79 Autonomic dysfunction G90.9 Decubitus ulcer of calf, unstageable L89.890 Cardiomyopathy I42.9 Tracheostomy status Z93.0 Nonverbal R47.01 Quadriplegia G82.50 Sammi rash of groin B37.89 Diarrhea R19.7
--- NOTE | 2023-08-12 19:08 | Hospitalist Progress Note ---
Date of Service August 12, 2023 Assessment & Plan (1) Decubitus ulcer of sacral region, stage 4: Plan: s/p debridement in the OR by Dr Issa on 07/31/23 intra-op culture with MSSA, pseudomonas, and providencia zosyn IV had been utilized for coverage of the above pathogens Wound vac placed on 08/01 Vac then changed on 08/04, 08/06, 08/08, 08/11 There had been exposed coccyx on examination about 2 weeks ago but during the most recent woundvac changes the coccyx is now covered with tissue per wound care team overall the wound is slowly healing rectal tube remains in place due to ongoing diarrhea c diff negative on 08/03 ongoing diarrhea will pose a large barrier to effective wound healing due to contamination, etc added cholestyramine to help with stool bulking so that rectal tube can ultimately be removed has had alternating diarrhea and constipation this admission would Mr Viveros ultimately need a diverting colostomy if diarrhea issue continues and he continues with contamination of his wound?? rectal tube per on-line resources can remain for up to 28 days had received 14+ days of zinc therapy - stopped due to risk of causing copper def cont vit C and MVI (2) Chronic osteomyelitis of sacrum: Plan: coccyx cont IV cefepime (previously on IV zosyn - changed to cefepime this past weekend due to intermediate resistance of pseudomonas on bronch culture) 6 weeks of IV abx recommended by ID course --> 07/3109/10/23 weekly labs due early next week (3) Hospital acquired PNA: Plan: 08/01 - cxr with worsening infiltrates on left 08/03 - collapse LLL 08/03 - bronchoscopy by Dr Blancas with mucous plugging found in the left-sided bronchial tree s/p removal; 08/07 - s/p bronch by Dr Lock - minimal secretions LLL, no plugs; thick secretions in trach, however culture from bronch shows that the pseudomonas is now intermediate resistance thus, changed zosyn back to cefepime IV on 08/09/23 remains on aggressive pulmonary toilet for this issue peak O2 requirement 07/31 - 08/01 -- 8-10 liters O2 requiring 6 L at this time cont mucomyst nebs BID cont saline nebs BID cont duonebs prn cont cough assist device (4) Fever: Plan: either 2nd to infected sacral decubitus ulcer vs left-sided pneumonia/collapse vs autonomic storming vs combination of factors highest temp of 38.3 recorded on 08/02 low-grade temp of 37.8 on 08/09 - resolved, has not recurred since then cont to follow (5) Gram-positive bacteremia: Plan: Potential culprits - SSTI sacral decubitus ulcer Group C strep bacteremia - source thought 2nd to sacral wound Coag neg staph bacteremia - contaminant vs bacteremia Corynebacterium bacteremia -completed antibiotics courses for these previously appreciate ongoing ID support appreciate pulmonary assistance (6) Transaminitis: Plan: resolved (7) Severe protein-calorie malnutrition: Plan: BMI 18, diffuse sarcopenia / muscle wasting present continue PEG tube feedings - peptamen not available, thus nutrition changed product to Jevity albumin was normal at 3.7 on 08/08/23 (8) History of DVT (deep vein thrombosis): Plan: Eliquis 5mg BID DVT was in October 2022. Reduce apixban to prophylaxis dose 2.5 mg bid (9) Pneumatosis coli: Plan: Evaluated by General surgery last admission (mid June 2023) since no surgical abdomen/peritonitis/symptoms no Rx recommended during that admission etiology of the CT findings was uncertain abdominal exam remains benign / soft (10) History of nontraumatic rupture of cerebral aneurysm: Plan: Patient is nonverbal at baseline with chronic contractures in all 4 extremities Acquired quadriple[address] head shows encephalomalacia and good shunt placement Ry suffered a ruptured brain aneurysm and SAH 08/2022 Had craniotomy and evacuation. skull fragment was reimplanted in November per family. Had a RESEARCHER shunt placement at [facility]. Has history of severe autonomic dysfunction / paroxysmal sympathetic hyperactivity / autonomic storm which is controlled on medications and has the potential to be confused with sepsis. 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 after this admission pt's situation remains very medically complex mild left ear ulceration - bactroban ointment BID x 7 days - stable pt's mother updated at bedside 08/10 Admission and Anticipated Discharge Date Admission Date: July 18, 2023 Subjective nonverbal, no events overnight eyes open Physical Exam Physical Exam: PHYSICAL EXAMINATION Last 24h vital signs reviewed, see documentation in flowsheet General: eyes open, looking toward left, though did not track me HEENT: trach site cdi Lungs: clear anteriorly no rrw Heart: Regular rate and rhythm, no murmurs. No JVD Abdomen: Soft, nondistended. Bowel sounds present. G-tube site mid abdomen. Rectal tube with yellow liquid stool Extremities: Warm, dry, well-perfused. No extremity edema. diffuse sarcopenia present he has flexion contractures of both wrists, right elbow, bilateral lower extremities mildly flexed, high tone throughout - improved a little compared to last week sacral decubitus reviewed photo from today - some improvement - sacrum no longer exposed Neuro: eyes open gaze is to left, did not track me visually, RUE>LUE and bilateral LE contractures, severe diffuse sarcopenia Psych: unable to assess, no agitation Results & Data Results & Data Vital Signs (Past 12 Hours) Vital Signs Temp Pulse Pulse Resp BP Pulse Ox O2 Del Method 08/12/23 15:22 36.5 C 87 16 110/72 98 Room Air, Trach Collar 08/12/23 07:58 37.1 C 95 H 16 113/76 99 Room Air 08/12/23 07:50 Trach Collar O2 Flow Rate FiO2 08/12/23 15:22 6 08/12/23 07:58 08/12/23 07:50 6 28 PG Care Time/CCT Total # of Minutes Spent Total Time Spent with Patient: Total time spent is greater than 50% in coordination of care (as documented) at patient's floor/unit and/or counseling patient: Coding Level of Care Code 26858 SUB INP/OBS CARE 2/35MIN Diagnoses Decubitus ulcer of sacral region, stage 4 L89.154 Chronic osteomyelitis of sacrum M86.68 Hospital acquired PNA J18.9; Y95 Fever R50.9 Gram-positive bacteremia R78.81 Transaminitis R74.01 Severe protein-calorie malnutrition E43 History of DVT (deep vein thrombosis) Z86.718 Pneumatosis coli K63.89 History of nontraumatic rupture of cerebral aneurysm Z86.79 Autonomic dysfunction G90.9 Decubitus ulcer of calf, unstageable L89.890 Cardiomyopathy I42.9 Tracheostomy status Z93.0 Nonverbal R47.01 Quadriplegia G82.50 Sammi rash of groin B37.89 Diarrhea R19.7
[2023-08-12] MEDS: APIXABAN 2.5 MG TAB PO SCH (19:58)
[2023-08-13] MEDS: BACLOFEN 20 MG TAB PEG SCH (12:27)
--- NOTE | 2023-08-13 16:58 | Hospitalist Progress Note ---
Date of Service August 13, 2023 Assessment & Plan (1) Decubitus ulcer of sacral region, stage 4: Plan: s/p debridement in the OR by Dr Issa on 07/31/23 intra-op culture with MSSA, pseudomonas, and providencia zosyn IV had been utilized for coverage of the above pathogens Wound vac placed on 08/01 There had been exposed coccyx on examination about 2 weeks ago but during the most recent woundvac changes the coccyx is now covered with tissue per wound care team overall the wound is slowly healing rectal tube remains in place due to ongoing diarrhea c diff negative on 08/03 ongoing diarrhea will pose a large barrier to effective wound healing due to contamination, etc added cholestyramine to help with stool bulking so that rectal tube can ultimately be removed - seems improved has had alternating diarrhea and constipation this admission rectal tube per on-line resources can remain for up to 28 days had received 14+ days of zinc therapy - stopped due to risk of causing copper def cont vit C and MVI. albumin good (2) Chronic osteomyelitis of sacrum: Plan: coccyx cont IV cefepime (previously on IV zosyn - changed to cefepime this past weekend due to intermediate resistance of pseudomonas on bronch culture) 6 weeks of IV abx recommended by ID course --> 07/3109/10/23 weekly labs due early next week (3) Hospital acquired PNA: Plan: 08/01 - cxr with worsening infiltrates on left 08/03 - collapse LLL 08/03 - bronchoscopy by Dr Blancas with mucous plugging found in the left-sided bronchial tree s/p removal; 08/07 - s/p bronch by Dr Lock - minimal secretions LLL, no plugs; thick secretions in trach, however culture from bronch shows that the pseudomonas is now intermediate resistance thus, changed zosyn back to cefepime IV on 08/09/23 remains on aggressive pulmonary toilet for this issue peak O2 requirement 07/31 - 08/01 -- 8-10 liters O2 requiring 6 L at this time cont mucomyst nebs BID cont saline nebs BID cont duonebs prn cont cough assist device (4) Gram-positive bacteremia: Plan: Potential culprits - SSTI sacral decubitus ulcer Group C strep bacteremia - source thought 2nd to sacral wound Coag neg staph bacteremia - contaminant vs bacteremia Corynebacterium bacteremia -completed antibiotics courses for these previously (5) Severe protein-calorie malnutrition: Plan: BMI 18, diffuse sarcopenia / muscle wasting present continue PEG tube feedings - peptamen not available, thus nutrition changed product to Jevity albumin was normal at 3.7 on 08/08/23 (6) History of DVT (deep vein thrombosis): Plan: Eliquis 5mg BID DVT was in October 2022. Reduced apixban to prophylaxis dose 2.5 mg bid (7) Pneumatosis coli: Plan: Evaluated by General surgery last admission (mid June 2023) since no surgical abdomen/peritonitis/symptoms no Rx recommended during that admission etiology of the CT findings was uncertain abdominal exam remains benign / soft (8) History of nontraumatic rupture of cerebral aneurysm: Plan: Patient is nonverbal at baseline with chronic contractures in all 4 extremities Acquired quad[address] head shows encephalomalacia and good shunt placement Ry suffered a ruptured brain aneurysm and SAH 08/2022 Had craniotomy and evacuation. skull fragment was reimplanted in November per family. Had a EYELET MAKER shunt placement at [facility]. Has history of severe autonomic dysfunction / paroxysmal sympathetic hyperactivity / autonomic storm which is controlled on medications and has the potential to be confused with sepsis. 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 requested general surgery consult to see if this can be changed out. dispo - numerous referrals made by social work to various SNFs; he will not be returning to [facility] after this admission pt's situation remains very medically complex pt's mother updated at bedside 08/10 Admission and Anticipated Discharge Date Admission Date: July 18, 2023 Subjective nonverbal, no events Physical Exam 2 Physical Exam: PHYSICAL EXAMINATION Last 24h vital signs reviewed, see documentation in flowsheet General: eyes open HEENT: trach site cdi Lungs: clear anteriorly no rrw, no significant secretions Heart: Regular rate and rhythm, no murmurs. No JVD Abdomen: Soft, nondistended. Bowel sounds present. G-tube site mid abdomen. Rectal tube with yellow liquid stool Extremities: Warm, dry, well-perfused. No extremity edema. diffuse sarcopenia present he has flexion contractures of both wrists, right elbow, bilateral lower extremities mildly flexed, high tone throughout sacral decubitus reviewed photo from 08/13 - some improvement - sacrum no longer exposed Neuro: eyes open, did not track me visually, RUE>LUE and bilateral LE contractures, severe diffuse sarcopenia Psych: unable to assess, no agitation Results & Data Results & Data Vital Signs (Past 12 Hours) Vital Signs Temp Pulse Pulse Resp BP Pulse Ox O2 Del Method 08/13/23 15:10 37.5 C 100 H 16 95 Trach Collar 08/13/23 08:35 Trach Collar 08/13/23 07:41 37 C 92 H 18 112/73 100 Trach Collar 08/13/23 07:10 86 20 100 Trach Collar O2 Flow Rate FiO2 08/13/23 15:10 6 28 08/13/23 08:35 6 28 08/13/23 07:41 6 28 08/13/23 07:10 7 28 Laboratory Results 08/10/23 08:18 08/10/23 08:18 PG Care Time/CCT Total # of Minutes Spent Total Time Spent with Patient: Total time spent is greater than 50% in coordination of care (as documented) at patient's floor/unit and/or counseling patient: Coding Level of Care Code 96738 SUB INP/OBS CARE 2/35MIN Diagnoses Decubitus ulcer of sacral region, stage 4 L89.154 Chronic osteomyelitis of sacrum M86.68 Hospital acquired PNA J18.9; Y95 Gram-positive bacteremia R78.81 Severe protein-calorie malnutrition E43 History of DVT (deep vein thrombosis) Z86.718 Pneumatosis coli K63.89 History of nontraumatic rupture of cerebral aneurysm Z86.79 Autonomic dysfunction G90.9 Decubitus ulcer of calf, unstageable L89.890 Cardiomyopathy I42.9 Tracheostomy status Z93.0 Nonverbal R47.01 Quadriplegia G82.50 Sammi rash of groin B37.89 Diarrhea R19.7
--- NOTE | 2023-08-14 11:44 | Surgery Progress Note ---
Date of Service August 14, 2023 Assessment & Plan (1) G tube feedings: Plan: would not recommend changing g-tube as long as tube functional discoloration not significant issue not familiar with this tube and there are potential complications if change is attempted especially since I did not place tube Admission and Anticipated Discharge Date Admission Date: July 18, 2023 Results & Data Vital Signs (Past 12 Hours) Vital Signs Temp Pulse Pulse Resp BP Pulse Ox O2 Del Method 08/14/23 07:21 92 H 20 98 Trach Collar 08/14/23 07:12 36.5 C 79 14 97/65 L 100 Trach Collar 08/14/23 01:23 37.2 C O2 Flow Rate FiO2 08/14/23 07:21 08/14/23 07:12 6 28 08/14/23 01:23
--- NOTE | 2023-08-14 17:09 | Hospitalist Progress Note ---
Date of Service August 14, 2023 Assessment & Plan (1) Decubitus ulcer of sacral region, stage 4: Plan: s/p debridement in the OR by Dr Issa on 07/31/23 intra-op culture with MSSA, pseudomonas, and providencia zosyn IV had been utilized for coverage of the above pathogens Wound vac placed on 08/01 There had been exposed coccyx on examination about 2 weeks ago but during the most recent woundvac changes the coccyx is now covered with tissue per wound care team overall the wound is slowly healing (2) Chronic osteomyelitis of sacrum: Plan: coccyx cont IV cefepime (previously on IV zosyn - changed to cefepime this past weekend due to intermediate resistance of pseudomonas on bronch culture) 6 weeks of IV abx recommended by ID course --> 07/3109/10/23 weekly labs due early next week (3) Hospital acquired PNA: Plan: 08/01 - cxr with worsening infiltrates on left 08/03 - collapse LLL 08/03 - bronchoscopy by Dr Blancas with mucous plugging found in the left-sided bronchial tree s/p removal; 08/07 - s/p bronch by Dr Lock - minimal secretions LLL, no plugs; thick secretions in trach, however culture from bronch shows that the pseudomonas is now intermediate resistance thus, changed zosyn back to cefepime IV on 08/09/23 remains on aggressive pulmonary toilet for this issue peak O2 requirement 07/31 - 08/01 -- 8-10 liters O2 requiring 6 L at this time (baseline is 4L) cont mucomyst nebs BID cont saline nebs BID cont duonebs prn cont cough assist device (4) Gram-positive bacteremia: Plan: Potential culprits - SSTI sacral decubitus ulcer Group C strep bacteremia - source thought 2nd to sacral wound Coag neg staph bacteremia - contaminant vs bacteremia Corynebacterium bacteremia -completed antibiotics courses for these previously (5) Severe protein-calorie malnutrition: Plan: BMI 18, diffuse sarcopenia / muscle wasting present continue PEG tube feedings - peptamen not available, thus nutrition changed product to Jevity albumin was normal at 3.7 on 08/08/23 had received 14+ days of zinc therapy - stopped due to risk of causing copper def cont vit C and MVI. (6) History of DVT (deep vein thrombosis): Plan: Eliquis 5mg BID DVT was in October 2022. Reduced apixban to prophylaxis dose 2.5 mg bid (7) Pneumatosis coli: Plan: Evaluated by General surgery last admission (mid June 2023) since no surgical abdomen/peritonitis/symptoms no Rx recommended during that admission etiology of the CT findings was uncertain abdominal exam remains benign / soft (8) History of nontraumatic rupture of cerebral aneurysm: Plan: Patient is nonverbal at baseline with chronic contractures in all 4 extremities Acquired quadriplegia [address] head shows encephalomalacia and good shunt placement Ry suffered a ruptured brain aneurysm and SAH 08/2022 Had craniotomy and evacuation. skull fragment was reimplanted in November per family. Had a TRAIN MASTER shunt placement at [facility]. Has history of severe autonomic dysfunction / paroxysmal sympathetic hyperactivity / autonomic storm which is controlled on medications and has the potential to be confused with sepsis. 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 (14) Quadriplegia: Plan: 2nd to above (15) Sammi rash of groin: Plan: cont miconazole powder TID resolved (16) Diarrhea: Plan: rectal tube remains in place due to ongoing diarrhea c diff negative on 08/03 ongoing diarrhea will pose a large barrier to effective wound healing due to contamination, etc added cholestyramine to help with stool bulking so that rectal tube can ultimately be removed - seems improved ordered probiotic has had alternating diarrhea and constipation this admission rectal tube per on-line resources can remain for up to 28 days Plan gastrostomy tube - is functional but tubing is discolored and has not been changed any time recently per records placed by trauma surgeon (op report from 09/2022 in scan docs). requested general surgery consult to see if this can be changed out - Dr. Shane om evaluated: "would not recommend changing g-tube as long as tube functional, discoloration not significant issue, not familiar with this tube and there are potential complications if change is attempted especially since I did not place tube" dispo - numerous referrals made by social work to various SNFs; he will not be returning to [facility] after this admission pt's situation remains very medically complex pt's mother updated at bedside 08/10, aunt at bedside 08/14 Admission and Anticipated Discharge Date Admission Date: July 18, 2023 Subjective no events, more awake than usual since aunt visiting at bedside liquid stool persists but appears a little improved Physical Exam Physical Exam: PHYSICAL EXAMINATION Last 24h vital signs reviewed, see documentation in flowsheet General: eyes open HEENT: trach site cdi Lungs: clear anteriorly no rrw, no significant secretions Heart: Regular rate and rhythm, no murmurs. No JVD Abdomen: Soft, nondistended. Bowel sounds present. G-tube site mid abdomen. Rectal tube with brown liquid stool - a little thicker Extremities: Warm, dry, well-perfused. No extremity edema. diffuse sarcopenia present he has flexion contractures of both wrists, right elbow, bilateral lower extremities mildly flexed, high tone throughout calf wounds appear to have healed Neuro: eyes open, did not track me visually, looking toward left and grimacing, RUE>LUE and bilateral LE contractures, severe diffuse sarcopenia Psych: unable to assess, no agitation Results & Data Results & Data Vital Signs (Past 12 Hours) Vital Signs Temp Pulse Pulse Resp BP Pulse Ox O2 Del Method 08/14/23 16:08 36.8 C 92 H 16 109/72 98 Trach Collar 08/14/23 07:25 Trach Collar 08/14/23 07:21 92 H 20 98 Trach Collar 08/14/23 07:12 36.5 C 79 14 97/65 L 100 Trach Collar O2 Flow Rate FiO2 08/14/23 16:08 6 28 08/14/23 07:25 6 28 08/14/23 07:21 08/14/23 07:12 6 28 PG Care Time/CCT Total # of Minutes Spent Total Time Spent with Patient: Total time spent is greater than 50% in coordination of care (as documented) at patient's floor/unit and/or counseling patient: Coding Level of Care Code 23327 SUB INP/OBS CARE 2/35MIN Diagnoses Decubitus ulcer of sacral region, stage 4 L89.154 Chronic osteomyelitis of sacrum M86.68 Hospital acquired PNA J18.9; Y95 Gram-positive bacteremia R78.81 Severe protein-calorie malnutrition E43 History of DVT (deep vein thrombosis) Z86.718 Pneumatosis coli K63.89 History of nontraumatic rupture of cerebral aneurysm Z86.79 Autonomic dysfunction G90.9 Decubitus ulcer of calf, unstageable L89.890 Cardiomyopathy I42.9 Tracheostomy status Z93.0 Nonverbal R47.01 Quadriplegia G82.50 Sammi rash of groin B37.89 Diarrhea R19.7
[2023-08-15 07:08] LABS: Creatinine Clr Calc Pharmacy 185.6 ml/min; Est GFR (African American) > 150.0 ml/min; Est GFR (Non-African American) > 150.0 ml/min
[2023-08-15] MEDS: ADVANCED PROBIOTIC 625 MG CAPSULE PO SCH (09:04)
--- NOTE | 2023-08-15 18:46 | Hospitalist Progress Note ---
Date of Service August 15, 2023 Assessment & Plan (1) Decubitus ulcer of sacral region, stage 4: Plan: s/p debridement in the OR by Dr Issa on 07/31/23 intra-op culture with MSSA, pseudomonas, and providencia zosyn IV had been utilized for coverage of the above pathogens Wound vac placed on 08/01 There had been exposed coccyx on examination about 2 weeks ago but during the most recent woundvac changes the coccyx is now covered with tissue per wound care team overall the wound is slowly healing (2) Chronic osteomyelitis of sacrum: Plan: coccyx cont IV cefepime (previously on IV zosyn - changed to cefepime this past weekend due to intermediate resistance of pseudomonas on bronch culture) 6 weeks of IV abx recommended by ID course --> 07/3109/10/23 weekly labs due early next week Cr normal 0.43 today (3) Hospital acquired PNA: Plan: 08/01 - cxr with worsening infiltrates on left 08/03 - collapse LLL 08/03 - bronchoscopy by Dr Blancas with mucous plugging found in the left-sided bronchial tree s/p removal; 08/07 - s/p bronch by Dr Lock - minimal secretions LLL, no plugs; thick secretions in trach, however culture from bronch shows that the pseudomonas is now intermediate resistance thus, changed zosyn back to cefepime IV on 08/09/23 remains on aggressive pulmonary toilet for this issue peak O2 requirement 07/31 - 08/01 -- 8-10 liters O2 requiring 6 L at this time (baseline is 4L) cont mucomyst nebs BID cont saline nebs BID cont duonebs prn cont cough assist device (4) Gram-positive bacteremia: Plan: Potential culprits - SSTI sacral decubitus ulcer Group C strep bacteremia - source thought 2nd to sacral wound Coag neg staph bacteremia - contaminant vs bacteremia Corynebacterium bacteremia -completed antibiotics courses for these previously (5) Severe protein-calorie malnutrition: Plan: BMI 18, diffuse sarcopenia / muscle wasting present continue PEG tube feedings - peptamen not available, thus nutrition changed product to Jevity albumin was normal at 3.7 on 08/08/23 had received 14+ days of zinc therapy - stopped due to risk of causing copper def cont vit C and MVI. (6) History of DVT (deep vein thrombosis): Plan: Eliquis 5mg BID DVT was in October 2022. Reduced apixban to prophylaxis dose 2.5 mg bid (7) Pneumatosis coli: Plan: Evaluated by General surgery last admission (mid June 2023) since no surgical abdomen/peritonitis/symptoms no Rx recommended during that admission etiology of the CT findings was uncertain abdominal exam remains benign / soft (8) History of nontraumatic rupture of cerebral aneurysm: Plan: Patient is nonverbal at baseline with chronic contractures in all 4 extremities Acquired quadriple[address] head shows encephalomalacia and good shunt placement Ry suffered a ruptured brain aneurysm and SAH 08/2022 Had craniotomy and evacuation. skull fragment was reimplanted in November per family. Had a PHYSICAL EDUCATION DEPARTMENT CHAIR shunt placement at [facility]. Has history of severe autonomic dysfunction / paroxysmal sympathetic hyperactivity / autonomic storm which is controlled on medications and has the potential to be confused with sepsis. 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 (14) Quadriplegia: Plan: 2nd to above (15) Sammi rash of groin: Plan: cont miconazole powder TID resolved (16) Diarrhea: Plan: rectal tube remains in place due to ongoing diarrhea c diff negative on 08/03 ongoing diarrhea will pose a large barrier to effective wound healing due to contamination, etc - aunt reports he is always having diarrhea when on antibiotics added cholestyramine to help with stool bulking so that rectal tube can ultimately be removed - watery today ordered probiotic has had alternating diarrhea and constipation this admission rectal tube per on-line resources can remain for up to 28 days Plan gastrostomy tube - is functional but tubing is discolored and has not been changed any time recently per records placed by trauma surgeon (op report from 09/2022 in scan docs). requested general surgery consult to see if this can be changed out - Dr. Simental evaluated: "would not recommend changing g-tube as long as tube functional, discoloration not significant issue, not familiar with this tube and there are potential complications if change is attempted especially since I did not place tube" dispo - numerous referrals made by social work to various SNFs; he will not be returning to [facility] after this admission pt's situation remains very medically complex pt's mother updated at bedside 08/10, aunt at bedside 08/14 Admission and Anticipated Discharge Date Admission Date: July 18, 2023 Subjective nonverbal, no events watery stool persists Physical Exam Physical Exam: PHYSICAL EXAMINATION Last 24h vital signs reviewed, see documentation in flowsheet exam unchanged 08/15: General: eyes open HEENT: trach site cdi Lungs: clear anteriorly no rrw, no significant secretions Heart: Regular rate and rhythm, no murmurs. No JVD Abdomen: Soft, nondistended. Bowel sounds present. G-tube site mid abdomen. Rectal tube with yellow thin liquid stool Extremities: Warm, dry, well-perfused. No extremity edema. diffuse sarcopenia present he has flexion contractures of both wrists, right elbow, bilateral lower extremities mildly flexed, high tone throughout calf wounds appear to have healed Neuro: eyes open, did not track me visually, looking toward left and grimacing, RUE>LUE and bilateral LE contractures, severe diffuse sarcopenia Psych: unable to assess, no agitation Results & Data Results & Data Vital Signs (Past 12 Hours) Vital Signs Temp Pulse Pulse Resp BP Pulse Ox O2 Del Method 08/15/23 14:38 37.1 C 92 H 16 118/74 99 Trach Collar 08/15/23 11:55 36.5 C 82 15 112/76 95 Trach Collar 08/15/23 08:40 Trach Collar 08/15/23 07:55 81 15 99 Trach Collar 08/15/23 07:21 36.6 C 70 16 96/63 L 100 Trach Collar O2 Flow Rate FiO2 08/15/23 14:38 08/15/23 11:55 08/15/23 08:40 6 28 08/15/23 07:55 9 28 08/15/23 07:21 6 28 PG Care Time/CCT Total # of Minutes Spent Total Time Spent with Patient: Total time spent is greater than 50% in coordination of care (as documented) at patient's floor/unit and/or counseling patient: Coding Level of Care Code 21337 SUB INP/OBS CARE 2/35MIN Diagnoses Decubitus ulcer of sacral region, stage 4 L89.154 Chronic osteomyelitis of sacrum M86.68 Hospital acquired PNA J18.9; Y95 Gram-positive bacteremia R78.81 Severe protein-calorie malnutrition E43 History of DVT (deep vein thrombosis) Z86.718 Pneumatosis coli K63.89 History of nontraumatic rupture of cerebral aneurysm Z86.79 Autonomic dysfunction G90.9 Decubitus ulcer of calf, unstageable L89.890 Cardiomyopathy I42.9 Tracheostomy status Z93.0 Nonverbal R47.01 Quadriplegia G82.50 Sammi rash of groin B37.89 Diarrhea R19.7
--- NOTE | 2023-08-16 17:10 | Hospitalist Progress Note ---
Date of Service August 16, 2023 Assessment & Plan (1) Decubitus ulcer of sacral region, stage 4: Plan: s/p debridement in the OR by Dr Issa on 07/31/23 intra-op culture with MSSA, pseudomonas, and providencia zosyn IV had been utilized for coverage of the above pathogens Wound vac placed on 08/01 There had been exposed coccyx on examination about 2 weeks ago but during the most recent woundvac changes the coccyx is now covered with tissue per wound care team overall the wound is slowly healing (2) Diarrhea: Plan: rectal tube remains in place due to ongoing diarrhea c diff negative on 08/03 ongoing diarrhea will pose a large barrier to effective wound healing due to contamination, etc - aunt reports he is always having diarrhea when on antibiotics added cholestyramine to help with stool bulking so that rectal tube can ultimately be removed - remains watery ordered probiotic stopped magnesium supplement and stopped scheduled liquid acetaminophen as this likely contains sorbitol added Imodium bid 08/16 has had alternating diarrhea and constipation this admission rectal tube per on-line resources can remain for up to 28 days (3) Chronic osteomyelitis of sacrum: Plan: coccyx cont IV cefepime (previously on IV zosyn - changed to cefepime this past weekend due to intermediate resistance of pseudomonas on bronch culture) 6 weeks of IV abx recommended by ID course --> 07/3109/10/23 weekly labs due early next week Cr normal 0.43 08/15 (4) Hospital acquired PNA: Plan: 08/01 - cxr with worsening infiltrates on left 08/03 - collapse LLL 08/03 - bronchoscopy by Dr Blancas with mucous plugging found in the left-sided bronchial tree s/p removal; 08/07 - s/p bronch by Dr Lock - minimal secretions LLL, no plugs; thick secretions in trach, however culture from bronch shows that the pseudomonas is now intermediate resistance thus, changed zosyn back to cefepime IV on 08/09/23 remains on aggressive pulmonary toilet for this issue peak O2 requirement 07/31 - 08/01 -- 8-10 liters O2 requiring 6 L at this time (baseline is 4L) cont mucomyst nebs BID cont saline nebs BID cont duonebs prn (5) Gram-positive bacteremia: Plan: Potential culprits - SSTI sacral decubitus ulcer Group C strep bacteremia - source thought 2nd to sacral wound Coag neg staph bacteremia - contaminant vs bacteremia Corynebacterium bacteremia -completed antibiotics courses for these previously (6) Severe protein-calorie malnutrition: Plan: BMI 18, diffuse sarcopenia / muscle wasting present continue PEG tube feedings - peptamen not available, thus nutrition changed product to Jevity albumin was normal at 3.7 on 08/08/23 had received 14+ days of zinc therapy - stopped due to risk of causing copper def cont vit C and MVI. (7) History of DVT (deep vein thrombosis): Plan: DVT was in October 2022. Reduced apixaban to prophylaxis dose 2.5 mg bid (8) Pneumatosis coli: Plan: Evaluated by General surgery last admission (mid June 2023) since no surgical abdomen/peritonitis/symptoms no Rx recommended during that admission etiology of the CT findings was uncertain abdominal exam remains benign / soft (9) History of nontraumatic rupture of cerebral aneurysm: Plan: Patient is nonverbal at baseline with chronic contractures in all 4 extremities Acquired quad[address] head shows encephalomalacia and good shunt placement Ry suffered a ruptured brain aneurysm and SAH 08/2022 Had craniotomy and evacuation. skull fragment was reimplanted in November per family. Had a CRANE OPERATOR shunt placement at [facility]. Has history of severe autonomic dysfunction / paroxysmal sympathetic hyperactivity / autonomic storm which is controlled on medications and has the potential to be confused with sepsis. 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 requested general surgery consult to see if this can be changed out - Dr. Simental evaluated: "would not recommend changing g-tube as long as tube functional, discoloration not significant issue, not familiar with this tube and there are potential complications if change is attempted especially since I did not place tube" dispo - numerous referrals made by social work to various SNFs; he will not be returning to [facility] after this admission 30-day med review/renewal completed 08/16 for most meds pt's mother updated at bedside 08/10, aunt at bedside 08/14 Admission and Anticipated Discharge Date Admission Date: July 18, 2023 Subjective diarrhea persists no events sleeping, nonverbal Physical Exam Physical Exam: PHYSICAL EXAMINATION Last 24h vital signs reviewed, see documentation in flowsheet General: eyes closed, sleeping otherwise exam unchanged 08/16 HEENT: trach site cdi Lungs: clear anteriorly no rrw, no significant secretions Heart: Regular rate and rhythm, no murmurs. No JVD Abdomen: Soft, nondistended. Bowel sounds present. G-tube site mid abdomen. Rectal tube with yellow watery liquid stool Extremities: Warm, dry, well-perfused. No extremity edema. diffuse sarcopenia present he has flexion contractures of both wrists, right elbow, bilateral lower extremities mildly flexed, high tone throughout calf wounds have healed Neuro: eyes closed / sleeping, RUE>LUE and bilateral LE contractures, severe diffuse sarcopenia Psych: unable to assess, no agitation Results & Data Results & Data Vital Signs (Past 12 Hours) Vital Signs Temp Pulse Resp BP Pulse Ox O2 Del Method O2 Flow Rate 08/16/23 14:52 36.6 C 88 16 104/68 100 Trach Collar 6 08/16/23 08:14 91 H 18 99 Trach Collar 08/16/23 07:22 Trach Collar 6 08/16/23 07:17 36.7 C 92 H 16 110/74 99 Trach Collar 6 FiO2 08/16/23 14:52 08/16/23 08:14 28 08/16/23 07:22 28 08/16/23 07:17 PG Care Time/CCT Total # of Minutes Spent Total Time Spent with Patient: Total time spent is greater than 50% in coordination of care (as documented) at patient's floor/unit and/or counseling patient: Coding Level of Care Code 18909 SUB INP/OBS CARE 2/35MIN Diagnoses Decubitus ulcer of sacral region, stage 4 L89.154 Diarrhea R19.7 Chronic osteomyelitis of sacrum M86.68 Hospital acquired PNA J18.9; Y95 Gram-positive bacteremia R78.81 Severe protein-calorie malnutrition E43 History of DVT (deep vein thrombosis) Z86.718 Pneumatosis coli K63.89 History of nontraumatic rupture of cerebral aneurysm Z86.79 Autonomic dysfunction G90.9 Decubitus ulcer of calf, unstageable L89.890 Cardiomyopathy I42.9 Tracheostomy status Z93.0 Nonverbal R47.01 Quadriplegia G82.50 Sammi rash of groin B37.89
--- NOTE | 2023-08-17 15:30 | Hospitalist Progress Note ---
Date of Service August 17, 2023 Assessment & Plan (1) Decubitus ulcer of sacral region, stage 4: Plan: s/p debridement in the OR by Dr Issa on 07/31/23 intra-op culture with MSSA, pseudomonas, and providencia zosyn IV had been utilized for coverage of the above pathogens Wound vac placed on 08/01 There had been exposed coccyx on examination about 2 weeks ago but during the most recent woundvac changes the coccyx is now covered with tissue per wound care team overall the wound is slowly healing (2) Diarrhea: Plan: rectal tube remains in place due to ongoing diarrhea c diff negative on 08/03 ongoing diarrhea will pose a large barrier to effective wound healing due to contamination, etc - aunt reports he is always having diarrhea when on antibiotics added cholestyramine to help with stool bulking so that rectal tube can ultimately be removed - remains watery ordered probiotic stopped magnesium supplement and stopped scheduled liquid acetaminophen as this likely contains sorbitol added Imodium bid 08/16 has had alternating diarrhea and constipation this admission rectal tube per on-line resources can remain for up to 28 days (3) Chronic osteomyelitis of sacrum: Plan: coccyx cont IV cefepime (previously on IV zosyn - changed to cefepime this past weekend due to intermediate resistance of pseudomonas on bronch culture) 6 weeks of IV abx recommended by ID course --> 07/3109/10/23 weekly labs ordered for AM: CBC CMP CRP ESR Cr normal 0.43 08/15 (4) Hospital acquired PNA: Plan: 08/01 - cxr with worsening infiltrates on left 08/03 - collapse LLL 08/03 - bronchoscopy by Dr Blancas with mucous plugging found in the left-sided bronchial tree s/p removal; 08/07 - s/p bronch by Dr Lock - minimal secretions LLL, no plugs; thick secretions in trach, however culture from bronch shows that the pseudomonas is now intermediate resistance thus, changed zosyn back to cefepime IV on 08/09/23 remains on aggressive pulmonary toilet for this issue peak O2 requirement 07/31 - 08/01 -- 8-10 liters O2 requiring 5 L at this time (baseline is 4L), slowly improving cont mucomyst nebs BID cont saline nebs BID cont duonebs prn (5) Gram-positive bacteremia: Plan: Potential culprits - SSTI sacral decubitus ulcer Group C strep bacteremia - source thought 2nd to sacral wound Coag neg staph bacteremia - contaminant vs bacteremia Corynebacterium bacteremia -completed antibiotics courses for these previously (6) Severe protein-calorie malnutrition: Plan: BMI 18, diffuse sarcopenia / muscle wasting present continue PEG tube feedings - peptamen not available, thus nutrition changed product to Jevity albumin was normal at 3.7 on 08/08/23 had received 14+ days of zinc therapy - stopped due to risk of causing copper def cont vit C and MVI. (7) History of DVT (deep vein thrombosis): Plan: DVT was in October 2022. Reduced apixaban to prophylaxis dose 2.5 mg bid (8) Pneumatosis coli: Plan: Evaluated by General surgery last admission (mid June 2023) since no surgical abdomen/peritonitis/symptoms no Rx recommended during that admission etiology of the CT findings was uncertain abdominal exam remains benign / soft (9) History of nontraumatic rupture of cerebral aneurysm: Plan: Patient is nonverbal at baseline with chronic contractures in all 4 extremities Acquired quadriplegia [address] head shows encephalomalacia and good shunt placement Ry suffered a ruptured brain aneurysm and SAH 08/2022 Had craniotomy and evacuation. skull fragment was reimplanted in November per family. Had a EVENT CREW TECHNICIAN shunt placement at [facility]. Has history of severe autonomic dysfunction / paroxysmal sympathetic hyperactivity / autonomic storm which is controlled on medications and has the p otential to be confused with sepsis. 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 requested general surgery consult to see if this can be changed out - Dr. Simental evaluated: "would not recommend changing g-tube as long as tube functional, discoloration not significant issue, not familiar with this tube and there are potential complications if change is attempted especially since I did not place tube" dispo - numerous referrals made by social work to various SNFs; he will not be returning to [facility] after this admission 30-day med review/renewal completed 08/16 for most meds pt's mother updated at bedside 08/10, aunt at bedside 08/14 Admission and Anticipated Discharge Date Admission Date: July 18, 2023 Subjective No events Nonverbal, eyes open Watery liquid stool in bag O2 down to 5L trach collar which is an improvement. Not having heavy secretions. Physical Exam Physical Exam: PHYSICAL EXAMINATION Last 24h vital signs reviewed, see documentation in flowsheet General: eyes open otherwise exam unchanged 08/16 HEENT: trach site cdi Lungs: clear anteriorly no rrw, no significant secretions noted Heart: Regular rate and rhythm, no murmurs. No JVD Abdomen: Soft, nondistended. Bowel sounds present. G-tube site mid abdomen. Rectal tube with yellow watery liquid stool Extremities: Warm, dry, well-perfused. No extremity edema. diffuse sarcopenia present he has flexion contractures of both wrists, right elbow, bilateral lower extremities mildly flexed, high tone throughout calf wounds have healed Neuro: eyes open, roving eye movements, didn't track me, RUE>LUE and bilateral LE contractures, severe diffuse sarcopenia Psych: unable to assess, no agitation Results & Data Results & Data Vital Signs (Past 12 Hours) Vital Signs Temp Pulse Resp BP Pulse Ox O2 Del Method O2 Flow Rate 08/17/23 15:03 36.6 C 78 18 112/76 98 Trach Collar 5 08/17/23 08:00 93 H 16 99 Trach Collar 6 08/17/23 07:35 Trach Collar 6 08/17/23 07:27 36.8 C 98 H 16 100/68 100 Trach Collar 5 FiO2 08/17/23 15:03 08/17/23 08:00 28 08/17/23 07:35 28 08/17/23 07:27 PG Care Time/CCT Total # of Minutes Spent Total Time Spent with Patient: Total time spent is greater than 50% in coordination of care (as documented) at patient's floor/unit and/or counseling patient: Coding Level of Care Code 83754 SUB INP/OBS CARE 07/17MIN Diagnoses Decubitus ulcer of sacral region, stage 4 L89.154 Diarrhea R19.7 Chronic osteomyelitis of sacrum M86.68 Hospital acquired PNA J18.9; Y95 Gram-positive bacteremia R78.81 Severe protein-calorie malnutrition E43 History of DVT (deep vein thrombosis) Z86.718 Pneumatosis coli K63.89 History of nontraumatic rupture of cerebral aneurysm Z86.79 Autonomic dysfunction G90.9 Decubitus ulcer of calf, unstageable L89.890 Cardiomyopathy I42.9 Tracheostomy status Z93.0 Nonverbal R47.01 Quadriplegia G82.50 Sammi rash of groin B37.89
[2023-08-18 07:30] LABS: Basophils # (auto) 0.08 K/uL (0.00-0.20); Basophils % (auto) 0.7 %; Eosinophils # (auto) 0.31 K/uL (0.00-0.50); Eosinophils % (auto) 2.7 %; Hematocrit (blood only) 30.1 % (42.0-52.0); Hemoglobin 9.6 g/dl (14.0-18.0); Immature Granulocytes # (auto) 0.08 K/uL (0.01-0.20); Immature Granulocytes % (auto) 0.7 %; Lymphocytes # (auto) 1.42 K/uL (1.20-3.40); Lymphocytes % (auto) 12.4 %; Mean Corpuscular Hgb Conc 31.9 g/dL (32.0-36.0); Mean Corpuscular Volume 94.1 fL (80.0-100.0); Mean Platelet Volume 10.9 fL (9.4-12.4); Neutrophils % (auto) 76.5 %; Platelet Count 397 K/uL (130-400); RDW Coefficient of Variation 14.1 % (11.5-14.5); White Blood Count 11.49 K/ul (4.8-10.8)
[2023-08-18 07:53] LABS: Alanine Aminotransferase 17 U/L (7-52); Albumin Globulin Ratio 1.1 (0.9-2); Alkaline Phosphatase 60 U/L (34-104); Anion Gap 9 (3-11); Aspartate Aminotransferase 14 U/L (13-39); BUN Creatinine Ratio 69.2 (10-20); Bilirubin,Total 0.5 mg/dl (0.2-1.0); Blood Urea Nitrogen 27 mg/dl (6-23); Calcium 9.9 mg/dl (8.6-10.3); Carbon Dioxide 29 mmol/L (21-32); Chloride 101 mmol/L (98-107); Creatinine Clr Calc Pharmacy 195.8 ml/min; Est GFR (African American) > 150.0 ml/min; Est GFR (Non-African American) > 150.0 ml/min; Globulin 3.8 gm/dl (2.5-4.0); Glucose 91 mg/dl (70-99(Fasting)); Sodium 139 mmol/L (136-145); Total Protein 7.8 gm/dl (6.0-8.3)
[2023-08-18] MEDS: LOPERAMIDE LIQUID 120 ML BOTTLE GT PRN (08:32)
[2023-08-19 07:18] LABS: Hemoglobin 9.6 g/dl (14.0-18.0); Mean Corpuscular Hemoglobin 29.5 pg (25.0-34.0); Mean Corpuscular Volume 95.4 fL (80.0-100.0); Mean Platelet Volume 11.3 fL (9.4-12.4); Platelet Count 370 K/uL (130-400); RDW Coefficient of Variation 14.1 % (11.5-14.5); Red Blood Count 3.25 M/uL (4.70-6.10); White Blood Count 8.93 K/ul (4.8-10.8)
[2023-08-19] MEDS: ACETAMINOPHEN 325 MG TAB PEG SCH (10:30)
--- NOTE | 2023-08-19 19:15 | Hospitalist Progress Note ---
Date of Service August 19, 2023 Assessment & Plan (1) Decubitus ulcer of sacral region, stage 4: Plan: s/p debridement in the OR by Dr Issa on 07/31/23 intra-op culture with MSSA, pseudomonas, and providencia zosyn IV had been utilized for coverage of the above pathogens Wound vac placed on 08/01 Vac then changed Fri/Fri/Friday There had been exposed coccyx on examination about 2-3 weeks ago but the coccyx is now covered with tissue per wound care team overall the wound is slowly healing rectal tube remains in place due to ongoing diarrhea c diff negative on 08/03 ongoing diarrhea will pose a large barrier to effective wound healing due to contamination, etc added cholestyramine to help with stool bulking so that rectal tube can ultimately be removed may need to double the dose to BID dosing would Mr Viveros ultimately need a diverting colostomy if diarrhea issue continues and he continues with contamination of his wound?? rectal tube per on-line resources can remain for up to 28 days (2) Chronic osteomyelitis of sacrum: Plan: coccyx cont IV cefepime (previously on IV zosyn - changed to cefepime this past weekend due to intermediate resistance of pseudomonas on bronch culture) 6 weeks of IV abx recommended by ID course --> 07/3109/10/23 (3) Hospital acquired PNA: Plan: 08/01 - cxr with worsening infiltrates on left 08/03 - collapse LLL 08/03 - bronchoscopy by Dr Blancas with mucous plugging found in the left-sided bronchial tree s/p removal; 08/07 - s/p bronch by Dr Lock - minimal secretions LLL, no plugs; thick secretions in trach, however culture from bronch shows that the pseudomonas is now intermediate resistance thus, changed zosyn back to cefepime IV on 08/09/23 remains on aggressive pulmonary toilet for this issue peak O2 requirement 07/31 - 08/01 -- 8-10 liters O2 cont mucomyst nebs BID cont saline nebs BID cont duonebs prn will speak with RT and staff - if secretions are better can likely make the mucomyst prn and keep saline nebs scheduled (4) Gram-positive bacteremia: Plan: Potential culprits - SSTI sacral decubitus ulcer Group C strep bacteremia - source thought 2nd to sacral wound Coag neg staph bacteremia - contaminant vs bacteremia Corynebacterium bacteremia appreciate ongoing ID support appreciate pulmonary assistance (5) Transaminitis: Plan: resolved (6) Severe protein-calorie malnutrition: Plan: BMI 18, diffuse sarcopenia / muscle wasting present continue PEG tube feedings - peptamen not available, thus nutrition changed product to Jevity albumin was normal at 3.7 on 07/19/23 (7) History of DVT (deep vein thrombosis): Plan: Eliquis 5mg BID I am uncertain when the initial VTE event occurred - would have to get records If it has been 6+ months since the initial DVT event we can cut back to preventive doses at 2.5mg BID (8) Pneumatosis coli: Plan: Evaluated by General surgery last admission (mid June 2023) since no surgical abdomen/peritonitis/symptoms no Rx recommended during that admission etiology of the CT findings was uncertain abdominal exam remains benign / soft (9) History of nontraumatic rupture of cerebral aneurysm: Plan: Patient is nonverbal at baseline with chronic contractures in all 4 extremities Acquired quad[address] head shows encephalomalacia and good shunt placement Ry suffered a ruptured brain aneurysm and SAH 08/2022 Had craniotomy and evacuation. skull fragment was reimplanted in November per family. 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 Has history of severe autonomic dysfunction / paroxysmal sympathetic hyperactivity / autonomic storm which is controlled on medications and has the potential to be confused with sepsis. 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 Plan dispo - numerous referrals made by social work to various SNFs; he will not be returning to [facility] after this admission pt's situation remains very medically complex mild left ear ulceration - resolved; can stop the bactroban ointment Admission and Anticipated Discharge Date Admission Date: July 18, 2023 Subjective no events woundvac exchanged today liquid stool continues in his rectal tube Review of Systems Review of Systems: Unobtainable due to cognitive status Physical Exam Physical Exam: gen - NAD, sleeping; comfortable ear - left pinnae - scant ulceration on lateral portion of cartilage is healed; no purulence, no erythema head - deformity right side from prior craniotomy neck - no JVD; trach in place - clean; head tilt to left (torticollis) heart - RRR, s1 s2, no murmur lungs - CTA b/l; no rales or wheeze abd - soft NT ND BS+; PEG tube site where the tube meets the skin is clean ext - trace edema, pulses 2+ b/l neuro - contractures all extremities Results & Data Results & Data Vital Signs (Past 12 Hours) Vital Signs Temp Pulse Pulse Resp BP Pulse Ox O2 Del Method 08/19/23 15:33 37.2 C 81 16 106/70 100 Room Air 08/19/23 08:04 88 20 94 Trach Collar 08/19/23 08:00 37.3 C 87 16 93/60 L 100 Trach Collar 08/19/23 07:25 Trach Collar O2 Flow Rate FiO2 08/19/23 15:33 08/19/23 08:04 6 28 08/19/23 08:00 7 28 08/19/23 07:25 5 28 PG Care Time/CCT Total # of Minutes Spent Total Time Spent with Patient: Total time spent is greater than 50% in coordination of care (as documented) at patient's floor/unit and/or counseling patient: Coding Level of Care Code 96458 SUB INP/OBS CARE 07/17MIN Diagnoses Decubitus ulcer of sacral region, stage 4 L89.154 Chronic osteomyelitis of sacrum M86.68 Hospital acquired PNA J18.9; Y95 Gram-positive bacteremia R78.81 Transaminitis R74.01 Severe protein-calorie malnutrition E43 History of DVT (deep vein thrombosis) Z86.718 Pneumatosis coli K63.89 History of nontraumatic rupture of cerebral aneurysm Z86.79 Autonomic dysfunction G90.9 Decubitus ulcer of calf, unstageable L89.890 Cardiomyopathy I42.9 Tracheostomy status Z93.0 Nonverbal R47.01 Quadriplegia G82.50 Sammi rash of groin B37.89 Diarrhea R19.7
[2023-08-20] MEDS: CHOLESTYRAMINE LIGHT 4 GM PKT PEG SCH (11:42)
--- NOTE | 2023-08-20 20:29 | Hospitalist Progress Note ---
Date of Service August 20, 2023 Assessment & Plan (1) Decubitus ulcer of sacral region, stage 4: Plan: s/p debridement in the OR by Dr Issa on 07/31/23 intra-op culture with MSSA, pseudomonas, and providencia zosyn IV had been utilized for coverage of the above pathogens Wound vac placed on 08/01 Vac then changed Fri/Fri/Friday including today Photos reviewed There had been exposed coccyx on examination about 2-3 weeks ago but the coccyx is now covered with tissue per wound care team overall the wound is slowly healing rectal tube remains in place due to ongoing diarrhea - placed 08/03/23 c diff negative on 08/03 stooling much better s/p questran powder BID appreciate wound care team assistance (2) Chronic osteomyelitis of sacrum: Plan: coccyx cont IV cefepime (previously on IV zosyn - changed to cefepime this past weekend due to intermediate resistance of pseudomonas on bronch culture) 6 weeks of IV abx recommended by ID course --> 07/3109/10/23 (3) Hospital acquired PNA: Plan: 08/01 - cxr with worsening infiltrates on left 08/03 - collapse LLL 08/03 - bronchoscopy by Dr Blancas with mucous plugging found in the left-sided bronchial tree s/p removal; 08/07 - s/p bronch by Dr Lock - minimal secretions LLL, no plugs; thick secretions in trach, however culture from bronch shows that the pseudomonas is now intermediate resistance thus, changed zosyn back to cefepime IV on 08/09/23 remains on aggressive pulmonary toilet for this issue peak O2 requirement 07/31 - 08/01 -- 8-10 liters O2 can d/c mucomyst nebs BID - no significant sputum at this time cont saline nebs BID cont duonebs prn (4) Gram-positive bacteremia: Plan: Potential culprits - SSTI sacral decubitus ulcer Group C strep bacteremia - source thought 2nd to sacral wound Coag neg staph bacteremia - contaminant vs bacteremia Corynebacterium bacteremia appreciate ongoing ID support appreciate pulmonary assistance (5) Transaminitis: Plan: resolved (6) Severe protein-calorie malnutrition: Plan: BMI 18, diffuse sarcopenia / muscle wasting present continue PEG tube feedings - peptamen not available, thus nutrition changed product to Jevity albumin was normal at 3.7 on 07/19/23 (7) History of DVT (deep vein thrombosis): Plan: records reviewed -- RLE DVT discovered 11/2022 Has been on Eliquis 5mg BID since 12/12/22 Has completed 6+ months of Rx Can likely transition to 2.5mg BID for prophylaxis since he is at high risk of recurrent DVT due to quadriplegic status (8) Pneumatosis coli: Plan: Evaluated by General surgery last admission (mid June 2023) since no surgical abdomen/peritonitis/symptoms no Rx recommended during that admission etiology of the CT findings was uncertain abdominal exam remains benign / soft (9) History of nontraumatic rupture of cerebral aneurysm: Plan: Patient is nonverbal at baseline with chronic contractures in all 4 extremities [address]quired [address] head shows encephalomalacia and good shunt placement Ry suffered a ruptured brain aneurysm and SAH 08/2022 Had craniotomy and evacuation. skull fragment was reimplanted in November per family. Had a [employer] ADMINISTRATOR shunt placement at [facility]. Has history of severe autonomic dysfunction / paroxysmal sympathetic hyperactivity / autonomic storm which is controlled on medications and has the potential to be confused with sepsis. 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 Plan dispo - numerous referrals made by social work to various SNFs; he will not be returning to [facility] after this admission mild left ear ulceration - resolved; bactroban ointment stopped will update the pt's mother tomorrow Admission and Anticipated Discharge Date Admission Date: July 18, 2023 Subjective woundvac exchanged today photos from wound care team noted stool with minimal output from rectal tube this was placed on 08/03/23 in the evening no concerns from nursing staff Review of Systems Review of Systems: Unobtainable due to cognitive status Physical Exam Physical Exam: gen - NAD, sleeping; comfortable ear - left pinnae - scant ulceration on lateral portion of cartilage is healed; no purulence, no erythema head - deformity right side from prior craniotomy neck - no JVD; trach in place - clean; head tilt to left (torticollis) - unchanged heart - RRR, s1 s2, no murmur lungs - CTA b/l; no rales or wheeze; mildly decreased BS L base abd - soft NT ND BS+; PEG tube site where the tube meets the skin is clean ext - trace edema, pulses 2+ b/l neuro - contractures all extremities Results & Data Results & Data Vital Signs (Past 12 Hours) Vital Signs Temp Pulse Resp BP Pulse Ox O2 Del Method O2 Flow Rate 08/20/23 20:01 91 H 18 98 Trach Collar 6 08/20/23 14:29 37.1 C 96 H 14 105/67 98 Trach Collar 6 08/20/23 08:40 Trach Collar FiO2 08/20/23 20:01 28 08/20/23 14:29 08/20/23 08:40 PG Care Time/CCT Total # of Minutes Spent Total Time Spent with Patient: Total time spent is greater than 50% in coordination of care (as documented) at patient's floor/unit and/or counseling patient: Coding Level of Care Code 98142 SUB INP/OBS CARE 07/17MIN Diagnoses Decubitus ulcer of sacral region, stage 4 L89.154 Chronic osteomyelitis of sacrum M86.68 Hospital acquired PNA J18.9; Y95 Gram-positive bacteremia R78.81 Transaminitis R74.01 Severe protein-calorie malnutrition E43 History of DVT (deep vein thrombosis) Z86.718 Pneumatosis coli K63.89 History of nontraumatic rupture of cerebral aneurysm Z86.79 Autonomic dysfunction G90.9 Decubitus ulcer of calf, unstageable L89.890 Cardiomyopathy I42.9 Tracheostomy status Z93.0 Nonverbal R47.01 Quadriplegia G82.50 Sammi rash of groin B37.89 Diarrhea R19.7
[2023-08-21 07:38] LABS: Est GFR (African American) > 150.0 ml/min; Est GFR (Non-African American) > 150.0 ml/min
--- NOTE | 2023-08-21 12:57 | Infectious Disease Progress Nt ---
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 He was recently admitted 07/0807/17/23 at [facility] (BCx + Group C Strep and CoNS, 07/09 BCx + CoNS and Corynebacterium, worsening sacral wound SSTI, treated with a 10-day course of vancomycin + meropenem->pip-tazo (intended EOT 07/19/23). On 07/18 Patient was readmitted d/t lack of caregiver support; 07/18 BCx + CoNS (non-lugdunensis) felt likely to be a contaminant and vancomycin was stopped on 07/25. Surgery was consulted due to c/f worsening decubitus ulcer (was off abx for several days). S/p debridement of sacral ulcer on 07/31 with exposed tip of coccyx indicative of sacral osteomyelitis, OR cx + Providencia stuartii, MSSA, PsA, mixed anaerobes. On 08/06, wound care confirmed that there is now healing tissue over the exposed bone. Hospital course also c/b post-surgical fever and hypoxemic respiratory failure with CXR on 08/01 showign interval development of left and mid-lower lung ASD. CXR 08/03 showing LLL collapse possibly due to mucous plugging. S/p bronchoscopy on 08/03 with cx growing PsA, s/p bronchoscopy on 08/07 with removal of mucous plugging. He was last seen by ID on 08/07 at which time, the wound had achieved wound coverage of bone and planned for treating sacral OM with 6 weeks of IV zosyn. Course notable for bronch cultures from 08/07 with PsA intermediate sensi to zosyn so abx changed to cefepime on 08/09. Note he has had diarrhea, C diff negative, getting cholestyramine, rectal tube in place. ID reconsulted on given concerns for worsening sacral wound. Images from wound care reviewed. I would have surgery see if they think further debridement is needed. Cefepime is adequate therapy for his lung infection, which he has been treated with for almost 2 weeks and thus completed. Unfortunately, cefepime doesnt have anaerobic coverage as opposed to zosyn. Since he had a high count of anaerobic bacteria growing in sacral cultures, this should be covered and may be the reason for worsening appearance of the sacral wound. Options will include adding metronidazole to extended infusion cefepime (extended infusion given BASHIR of PsA to cefepime as is already done), or changing back to extended infusion zosyn. Since it is unclear if he has resistant PsA there now, I will keep him on cefepime. If we are able to repeat cultures, then it may be helpful. Ideally, would prefer zosyn since he needs 6 weeks of therapy and metronidazole should not be used for a prolonged period due to side effects. If cultures show that Pseudomonas is still sensitive to zosyn, then would change antibiotics. # Sacral decubitus ulcer with osteomyelitis # Sacral cx 07/31 with PsA, P stuartii, MSSA, anaerobes # Pneumonia / PsA s/p treatment - would ask surgery whether repeat debridement is needed - repeat cultures of sacrum would be helpful - will keep on extended infusion cefepime 2g IV q8h - Darcie ordered metronidazole 500mg PO twice daily - if no e/o resistant Pseudomonas in sacrum or other new pathogens, then will favor changing him back to extended infusion zosyn 4.5g IV q6h to complete his therapy ID will continue to follow. If questions or concerns, contact Infectious Disease Call Center . Nohemi Gifford MD [facility], Division of Infectious Diseases IDConnect: [phone] Admission and Anticipated Discharge Date Admission Date: July 18, 2023 Subjective Subsequent visit was provided via telemedicine using two-way real-time interactive telecommunication between the patient and the telemedicine provider. For the duration of the visit, the provider was performing the assessment from a different facility than the patient. This includesuse of blueThirstyVIPoth stethos cope forauscultationperformed by the telepresenter that the telemedicine provider can hear if described in the physical exam. [employer] contact information: Please call [facility] Connect Call Center [phone]. (Phone Number For Physician Use Only) After establishing a telemedicine visit, patient was: Patient was verified with two unique identifiers, Patient/authorized rep acknowledged consent and understanding and Gave permission to continue telehealth session Time Spent with Patient: Subsequent => 55 min On evaluation, he is nonverbal. ID reconsulted given concerns for worsening sacral infection. Physical Exam Physical Exam: General: Awake, no acute distress HEENT: mmm Neck: trach in place Lungs: respirations non-labored Heart: nl peripheral perfusion Abdomen: soft, g tube site clean Ext: contractures noted Skin: no rash Results & Data Vital Signs (Past 12 Hours) Vital Signs Temp Pulse Resp BP Pulse Ox O2 Del Method O2 Flow Rate 08/21/23 08:46 Trach Collar 6 08/21/23 08:04 86 16 96 Trach Collar 6 08/21/23 06:31 36.5 C 83 16 120/80 98 Trach Collar FiO2 08/21/23 08:46 08/21/23 08:04 28 08/21/23 06:31 Laboratory Results Labs reviewed
--- NOTE | 2023-08-21 20:13 | Hospitalist Progress Note ---
Date of Service August 21, 2023 Assessment & Plan (1) Decubitus ulcer of sacral region, stage 4: Plan: s/p debridement in the OR by Dr Issa on 07/31/23 intra-op culture with MSSA, pseudomonas, and providencia zosyn IV had been utilized for coverage of the above pathogens Wound vac placed on 08/01 Vac then changed Fri/Fri/Friday including today Photos reviewed There had been exposed coccyx on examination about 2-3 weeks ago but the coccyx is now covered with tissue per wound care team With that said there has been little to no change otherwise in the wound I spoke with Sherie Jesus directly and she is going to change the wound vac to a pulsating irrigation system tomorrow I will also speak with gen surg tomorrow about whether further debridement is needed Finally, I spoke with on-call [facility] ID - they will provide additional consultation re: his abx rectal tube remains in place due to ongoing diarrhea - placed 08/03/23 - stooling has improved significantly with questran (almost too well - very little stool last 48 hours) c diff negative on 08/03 appreciate wound care team assistance (2) Chronic osteomyelitis of sacrum: Plan: coccyx cont IV cefepime (previously on IV zosyn - changed to cefepime earlier this month due to intermediate resistance of pseudomonas on bronch culture) 6 weeks of IV abx recommended by ID course --> 07/3109/10/23 ID to re-look at his case and determine if any changes are needed in abx regimen in light of poor sacral wound healing (3) Hospital acquired PNA: Plan: 08/01 - cxr with worsening infiltrates on left 08/03 - collapse LLL 08/03 - bronchoscopy by Dr Blancas with mucous plugging found in the left-sided bronchial tree s/p removal; 08/07 - s/p bronch by Dr Lock - minimal secretions LLL, no plugs; thick secretions in trach, however culture from bronch shows that the pseudomonas is now intermediate resistance thus, changed zosyn back to cefepime IV on 08/09/23 remains on aggressive pulmonary toilet for this issue peak O2 requirement 07/31 - 2 -- 8-10 liters O2 cont saline nebs BID cont duonebs prn (4) Gram-positive bacteremia: Plan: Potential culprits - SSTI sacral decubitus ulcer Group C strep bacteremia - source thought 2nd to sacral wound Coag neg staph bacteremia - contaminant vs bacteremia Corynebacterium bacteremia appreciate ongoing ID support appreciate pulmonary assistance (5) Transaminitis: Plan: resolved (6) Severe protein-calorie malnutrition: Plan: BMI 18, diffuse sarcopenia / muscle wasting present continue PEG tube feedings - peptamen not available, thus nutrition changed product to Jevity albumin was normal at 3.7 on 07/19/23 (7) History of DVT (deep vein thrombosis): Plan: records reviewed -- RLE DVT discovered 11/2022 Had been on Eliquis 5mg BID since 12/12/22 Thus Has completed 6+ months of Rx Transitioned to 2.5mg BID for prophylaxis since he is at high risk of recurrent DVT due to quadriplegic status (8) Pneumatosis coli: Plan: Evaluated by General surgery last admission (mid June 2023) since no surgical abdomen/peritonitis/symptoms no Rx recommended during that admission etiology of the CT findings was uncertain abdominal exam remains benign / soft (9) History of nontraumatic rupture of cerebral aneurysm: Plan: Patient is nonverbal at baseline with chronic contractures in all 4 extremities Acquired quadriple[address] head shows encephalomalacia and good shunt placement Ry suffered a ruptured brain aneurysm and SAH 08/2022 Had craniotomy and evacuation. skull fragment was reimplanted in November per family. Had a ELEVATOR INSTALLER shunt placement at [facility]. Has history of severe autonomic dysfunction / paroxysmal sympathetic hyperactivity / autonomic storm which is controlled on medications and has the potential to be confused with sepsis. 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 (15) Quadriplegia: Plan: 2nd to above (16) Sammi rash of groin: Plan: cont miconazole powder TID resolved (17) Diarrhea: Plan: had resolved previously had rectal tube - was removed - but then placed back again on 08/03 in the evening c diff neg on 07/18/23 and again on 08/03/23 cholestyramine 4gm BID has helped slow his stooling this will facilitate removal of rectal tube and prevent frequent stooling however now he is having little stool output will change questran back to daily dosing Plan dispo - numerous referrals made by social work to various SNFs; he will not be returning to [facility] after this admission updated the pt's mother by phone this evening gave update on the status of #1 above Admission and Anticipated Discharge Date Admission Date: July 18, 2023 Subjective no events overnight no significant stool output via rectal tube no significant sputum from trach no issues with PEG feedings Review of Systems Review of Systems: Unobtainable due to cognitive status Physical Exam Physical Exam: gen - NAD, sleeping; sweaty; comfortable ear - left pinnae - scant ulceration on lateral portion of cartilage is healed; no purulence, no erythema head - deformity right side from prior craniotomy - unchanged neck - no JVD; trach in place - clean; head tilt to left (torticollis) - unchanged heart - RRR, s1 s2, no murmur lungs - CTA b/l; no rales or wheeze; mildly decreased BS L base abd - soft NT ND BS+; PEG tube site clean ext - trace edema, pulses 2+ b/l neuro - contractures all extremities - candidal rash scrotum resolved Results & Data Results & Data Vital Signs (Past 12 Hours) Vital Signs Temp Pulse Resp BP BP Pulse Ox O2 Del Method 08/21/23 20:09 89 16 97 Trach Collar 08/21/23 19:43 37.1 C 98 H 16 115/78 99 Trach Collar 08/21/23 14:45 36.7 C 95 H 16 109/76 100 Trach Collar 08/21/23 08:46 Trach Collar O2 Flow Rate FiO2 08/21/23 20:09 6 28 08/21/23 19:43 08/21/23 14:45 08/21/23 08:46 6 Laboratory Results Laboratory Results - last 24 hr 08/21/23 06:33 Creatinine 0.37 L Est Cr Clr Drug Dosing 210.0 Est GFR ( Amer) > 150.0 Est GFR (Non-Af Amer) > 150.0 PG Care Time/CCT Total # of Minutes Spent Total Time Spent with Patient: Total time spent is greater than 50% in coordination of care (as documented) at patient's floor/unit and/or counseling patient: Coding Level of Care Code 25487 SUB INP/OBS CARE 2/35MIN Diagnoses Decubitus ulcer of sacral region, stage 4 L89.154 Chronic osteomyelitis of sacrum M86.68 Hospital acquired PNA J18.9; Y95 Gram-positive bacteremia R78.81 Transaminitis R74.01 Severe protein-calorie malnutrition E43 History of DVT (deep vein thrombosis) Z86.718 Pneumatosis coli K63.89 History of nontraumatic rupture of cerebral aneurysm Z86.79 Autonomic dysfunction G90.9 Decubitus ulcer of calf, unstageable L89.890 Cardiomyopathy I42.9 Tracheostomy status Z93.0 Nonverbal R47.01 Quadriplegia G82.50 Sammi rash of groin B37.89 Diarrhea R19.7
[2023-08-21] MEDS: metroNIDAZOLE 500 MG TAB PO SCH (21:51)
--- NOTE | 2023-08-22 15:42 | Surgery Progress Note ---
Date of Service August 22, 2023 Assessment & Plan (1) Sacral decubitus ulcer: Plan: We have been re-engaged as patient's sacral wound appears to be worsening It was debrided in the OR by our services on 07/31 and wound care has been following along and performing wound vac changes Unfortunately there appears to be some areas of deterioration in the wound It was evaluated in conjunction with the wound care team today who is planning on placing an irrigating vac We are in agreement with this plan and will place the pt on the schedule for further surgical debridement this upcoming thursday 08/[address] alan COLEMAN following along for abx guidance Will make NPO at midnight prior to surgery Admission and Anticipated Discharge Date Admission Date: July 18, 2023 Supervising Physician Co-Signing Physician Notes I have seen and examined this patient with the surgical PA. I agree with this plan. Subjective Patient resting in bed, non verbal, appears in no distress Physical Exam Physical Exam: awake, non verbal, no distress Skin: sacral wound noted with some necrotic tissue of the borders superiorly, malodorous, + undermining Results & Data Vital Signs (Past 12 Hours) Vital Signs Temp Pulse Pulse Resp BP Pulse Ox O2 Del Method 08/22/23 14:25 98.4 F 93 H 16 104/70 99 Trach Collar 08/22/23 12:38 97.7 F 87 16 103/75 98 Trach Collar 08/22/23 08:00 Trach Collar 08/22/23 07:59 98.6 F 83 16 100/66 98 Trach Collar 08/22/23 07:58 85 18 28 L Trach Collar O2 Flow Rate 08/22/23 14:25 6 08/22/23 12:38 7 08/22/23 08:00 6 08/22/23 07:59 7 08/22/23 07:58 6 PG Care Time/CCT Total # of Minutes Spent Total Time Spent with Patient: Total time spent is greater than 50% in coordination of care (as documented) at patient's floor/unit and/or counseling patient: Coding Level of Care Code 65255 Post Operative Follow-Up Diagnoses Pressure injury of skin of sacral region, unspecified injury stage L89.159 Pressure injury stage: unspecified pressure injury stage (1) Sacral decubitus ulcer Pressure injury stage: unspecified pressure injury stage Qualified Code(s): L89.159 - Pressure ulcer of sacral region, unspecified stage
--- NOTE | 2023-08-22 16:54 | Infectious Disease Progress Nt ---
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 He was recently admitted 07/0807/17/23 at [facility] (BCx + Group C Strep and CoNS, 07/09 BCx + CoNS and Corynebacterium, worsening sacral wound SSTI, treated with a 10-day course of vancomycin + meropenem->pip-tazo (intended EOT 07/19/23). On 07/18 Patient was readmitted d/t lack of caregiver support; 07/18 BCx + CoNS (non-lugdunensis) felt likely to be a contaminant and vancomycin was stopped on 07/25. Surgery was consulted due to c/f worsening decubitus ulcer (was off abx for several days). S/p debridement of sacral ulcer on 07/31 with exposed tip of coccyx indicative of sacral osteomyelitis, OR cx + Providencia stuartii, MSSA, PsA, mixed anaerobes. On 08/06, wound care confirmed that there is now healing tissue over the exposed bone. Hospital course also c/b post-surgical fever and hypoxemic respiratory failure with CXR on 08/01 showign interval development of left and mid-lower lung ASD. CXR 08/03 showing LLL collapse possibly due to mucous plugging. S/p bronchoscopy on 08/03 with cx growing PsA, s/p bronchoscopy on 08/07 with removal of mucous plugging. He was last seen by ID on 08/07 at which time, the wound had achieved wound coverage of bone and planned for treating sacral OM with 6 weeks of IV zosyn. Course notable for bronch cultures from 08/07 with PsA intermediate sensi to zosyn so abx changed to cefepime on 08/09. Note he has had diarrhea, C diff negative, getting cholestyramine, rectal tube in place. ID reconsulted on given concerns for worsening sacral wound. Seen by surgery and planned for debridement on 08/24. Sacral wound with some worsening, and is planned for debridement. He had been getting cefepime for his PNA due to PsA resistance pattern to zosyn earlier during hospitalization. Since no anaerobic coverage was included, its possible that is the reason for worsening (noting his cultures with high anaerobe count). Flagyl now added to therapy and WCX from sacrum are in process. # Sacral decubitus ulcer with osteomyelitis # Sacral cx 07/31 with PsA, P stuartii, MSSA, anaerobes # Pneumonia 07/25 PsA s/p treatment - will f/u debridement on Friday (please send aerobic and anaerobic cultures) - continue on extended infusion cefepime 2g IV q8h - continue metronidazole 500mg PO twice daily - if no e/o resistant Pseudomonas in sacrum or other new pathogens, then will favor changing him back to extended infusion zosyn 4.5g IV q6h to complete his therapy (plan is for 6 weeks for OM with original plans of 07/3109/10/23) ID will continue to follow. If questions or concerns, contact Infectious Disease Call Center . Nohemi Gifford MD [facility], Division of Infectious Diseases IDConnect: [phone] Admission and Anticipated Discharge Date Admission Date: July 18, 2023 Subjective This patient recommendation is based on a telemedicine consult request which was completed asynchronously through chart review and information provided by the primary physician. The patient was not seen or examined today. The evaluation is consultative in nature and all patient care and treatment decisions can either be accepted or rejected by the patient's primary hospital-based treating physician using their own independent medical judgment for their patient. Time Spent Reviewing Chart: 31+ minutes Results & Data Vital Signs (Past 12 Hours) Vital Signs Temp Pulse Pulse Resp BP Pulse Ox O2 Del Method 08/22/23 14:25 36.9 C 93 H 16 104/70 99 Trach Collar 08/22/23 12:38 36.5 C 87 16 103/75 98 Trach Collar 08/22/23 08:00 Trach Collar 08/22/23 07:59 37 C 83 16 100/66 98 Trach Collar 08/22/23 07:58 85 18 28 L Trach Collar O2 Flow Rate 08/22/23 14:25 6 08/22/23 12:38 7 08/22/23 08:00 6 08/22/23 07:59 7 08/22/23 07:58 6 Laboratory Results 07/18 BCx: CONS 06/26 bottles 07/23 BCX: ngtd 07/31 Sacrum cx: Providencia stuartii, MSSA, PsA (R-mery), high counts of mixed anaerobic microbiota 08/03 C diff: neg 08/03 Bronch washing: PsA (R-mery, S-zosyn) 08/07 BAL: C albicans/dubliniensis, PsA (R-mery, I-zosyn, S-cipro, cefepime, ceftazidime) 08/21 Sacral WCx: pending
--- NOTE | 2023-08-22 20:14 | Hospitalist Progress Note ---
Date of Service August 22, 2023 Assessment & Plan (1) Decubitus ulcer of sacral region, stage 4: Plan: s/p debridement in the OR by Dr Issa on 07/31/23 intra-op culture with MSSA, pseudomonas, providencia, and anaerobes zosyn IV had been utilized for coverage of the above pathogens Wound vac placed on 08/01 Vac changes Fri/Fri/Friday Photos reviewed including today's There had been exposed coccyx on examination about 2-3 weeks ago but the coccyx is now covered with tissue per wound care team With that said there has been little to no change otherwise in the wound Sherie Crisostomoeliana changed the wound vac to a pulsating irrigation woundvac today [facility] ID added flagyl to the cefepime I spoke with gen surg and they will decide Friday whether to take Mr Viveros to the OR for debridement Hold eliquis starting tomorrow in the event he needs surgery on Friday rectal tube remains in place due to ongoing diarrhea - placed 08/03/23 - stooling has improved significantly with questran BID; cut back to once daily c diff negative on 08/03 (2) Chronic osteomyelitis of sacrum: Plan: coccyx cont IV cefepime flagyl added by ID 6 weeks of IV abx had been recommended by ID course --> 07/3109/10/23 see #1 above (3) Hospital acquired PNA: Plan: 08/01 - cxr with worsening infiltrates on left 08/03 - collapse LLL 08/03 - bronchoscopy by Dr Blancas with mucous plugging found in the left-sided bronchial tree s/p removal; 08/07 - s/p bronch by Dr Lock - minimal secretions LLL, no plugs; thick secretions in trach, however culture from bronch shows that the pseudomonas is now intermediate resistance thus, changed zosyn back to cefepime IV on 08/09/23 remains on aggressive pulmonary toilet for this issue peak O2 requirement 07/31 - 08/01 -- 8-10 liters O2 cont saline nebs BID cont duonebs prn (4) Gram-positive bacteremia: Plan: Potential culprits - SSTI sacral decubitus ulcer Group C strep bacteremia - source thought 2nd to sacral wound Coag neg staph bacteremia - contaminant vs bacteremia Corynebacterium bacteremia appreciate ongoing ID support appreciate pulmonary assistance (5) Transaminitis: Plan: resolved (6) Severe protein-calorie malnutrition: Plan: BMI 18, diffuse sarcopenia / muscle wasting present continue PEG tube feedings - peptamen not available, thus nutrition changed product to Jevity albumin was normal at 3.7 on 07/19/23 recheck an albumin this weekend (7) History of DVT (deep vein thrombosis): Plan: records reviewed -- RLE DVT discovered 11/2022 Had been on Eliquis 5mg BID since 12/12/22 Thus completed 6+ months of Rx cont Eliquis 2.5mg BID for prophylaxis since he is at high risk of recurrent DVT due to quadriplegic status (8) Pneumatosis coli: Plan: Evaluated by General surgery last admission (mid June 2023) since no surgical abdomen/peritonitis/symptoms no Rx recommended during that admission etiology of the CT findings was uncertain abdominal exam remains benign / soft (9) History of nontraumatic rupture of cerebral aneurysm: Plan: Patient is nonverbal at baseline with chronic contractures in all 4 extremities Acquired quadriple[address] head shows encephalomalacia and good shunt placement Ry suffered a ruptured brain aneurysm and SAH 08/2022 Had craniotomy and evacuation. skull fragment was reimplanted in November per family. Had a SEAT BUILDER shunt placement at [facility]. Has history of severe autonomic dysfunction / paroxysmal sympathetic hyperactivity / autonomic storm which is controlled on medications and has the potential to be confused with sepsis. 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 (15) Quadriplegia: Plan: 2nd to above (16) Sammi rash of groin: Plan: cont miconazole powder TID resolved (17) Diarrhea: Plan: had resolved previously had rectal tube - was removed - but then placed back again on 08/03 in the evening c diff neg on 07/18/23 and again on 08/03/23 cholestyramine 4gm BID has helped slow his stooling this will facilitate removal of rectal tube and prevent frequent stooling however now he is having little stool output changed questran back to daily dosing despite such stool output has been little consider KUB x-ray to assess stool load Plan dispo - numerous referrals made by social work to various SNFs; he will not be returning to [facility] after this admission updated the pt's mother by phone yesterday evening updated pt's aunt at bedside this evening Admission and Anticipated Discharge Date Admission Date: July 18, 2023 Subjective I had conversations today with Sherie Jesus from wound care and with general surgery Ms Jesus placed an irrigating woundvac on the sacral decubitus ulcer general surgery looked at the wound and is considering repeat debridement on Thursday 08/24 they will make the final decision about repeat debridement at that time minimal stool output from rectal tube Review of Systems Review of Systems: Unobtainable due to cognitive status Physical Exam Physical Exam: gen - NAD, eyes open today, aunt & 2 cousins at bedside ear - left pinnae - scant ulceration on lateral portion of cartilage is healed; no purulence, no erythema head - deformity right side from prior craniotomy - unchanged neck - no JVD; trach in place - clean heart - RRR, s1 s2, no murmur lungs - CTA b/l; no rales or wheeze; moderately decreased BS L base - slightly more so vs previous visits abd - soft NT ND BS+; PEG tube site clean ext - trace edema, pulses 2+ b/l neuro - contractures all extremities Results & Data Results & Data Vital Signs (Past 12 Hours) Vital Signs Temp Pulse Pulse Resp BP Pulse Ox O2 Del Method 08/22/23 19:53 91 H 18 100 Trach Collar 08/22/23 14:25 36.9 C 93 H 16 104/70 99 Trach Collar 08/22/23 12:38 36.5 C 87 16 103/75 98 Trach Collar O2 Flow Rate FiO2 08/22/23 19:53 6 28 08/22/23 14:25 6 08/22/23 12:38 7 PG Care Time/CCT Total # of Minutes Spent Total Time Spent with Patient: Total time spent is greater than 50% in coordination of care (as documented) at patient's floor/unit and/or counseling patient: Coding Level of Care Code 39258 SUB INP/OBS CARE 2/35MIN Diagnoses Decubitus ulcer of sacral region, stage 4 L89.154 Chronic osteomyelitis of sacrum M86.68 Hospital acquired PNA J18.9; Y95 Gram-positive bacteremia R78.81 Transaminitis R74.01 Severe protein-calorie malnutrition E43 History of DVT (deep vein thrombosis) Z86.718 Pneumatosis coli K63.89 History of nontraumatic rupture of cerebral aneurysm Z86.79 Autonomic dysfunction G90.9 Decubitus ulcer of calf, unstageable L89.890 Cardiomyopathy I42.9 Tracheostomy status Z93.0 Nonverbal R47.01 Quadriplegia G82.50 Sammi rash of groin B37.89 Diarrhea R19.7
[2023-08-23 17:31] LABS: Basophils # (auto) 0.05 K/uL (0.00-0.20); Basophils % (auto) 0.4 %; Eosinophils # (auto) 0.41 K/uL (0.00-0.50); Eosinophils % (auto) 3.5 %; Hemoglobin 9.7 g/dl (14.0-18.0); Immature Granulocytes # (auto) 0.06 K/uL (0.01-0.20); Immature Granulocytes % (auto) 0.5 %; Lymphocytes # (auto) 1.14 K/uL (1.20-3.40); Lymphocytes % (auto) 9.7 %; Mean Corpuscular Hemoglobin 29.8 pg (25.0-34.0); Mean Corpuscular Hgb Conc 32.3 g/dL (32.0-36.0); Mean Corpuscular Volume 92.3 fL (80.0-100.0); Mean Platelet Volume 11.9 fL (9.4-12.4); Monocytes # (auto) 0.71 K/uL (0.11-0.59); Monocytes % (auto) 6.1 %; Neutrophils # (auto) 9.34 K/uL (1.40-6.50); Neutrophils % (auto) 79.8 %; Platelet Count 317 K/uL (130-400); RDW Standard Deviation 47.5 fL (36.4-46.3); Red Blood Count 3.25 M/uL (4.70-6.10); White Blood Count 11.71 K/ul (4.8-10.8)
[2023-08-23 17:44] LABS: Anion Gap 9 (3-11); Blood Urea Nitrogen 23 mg/dl (6-23); Carbon Dioxide 28 mmol/L (21-32); Chloride 101 mmol/L (98-107); Creatinine Clr Calc Pharmacy 195.8 ml/min; Est GFR (African American) > 150.0 ml/min; Est GFR (Non-African American) > 150.0 ml/min; Glucose 124 mg/dl (70-99(Fasting)); Magnesium 1.8 mg/dl (1.7-2.4); Phosphorus 3.2 mg/dl (2.5-4.9); Potassium 3.9 mmol/L (3.5-5.1); Sodium 138 mmol/L (136-145)
--- NOTE | 2023-08-23 17:51 | XRay Report ---
XR chest 1V portable, XR KUB/Abdomen 1 view HISTORY: 32 years-old Male h/o LLL pneumonia, decreased BS, interval change . Chest and abdominal pa in COMPARISON: 08/08/2023 TECHNIQUE: AP view of the chest with KUB radiograph FINDINGS: CHEST: Tracheostomy cannula is in stable positioning. Image shunt catheter appears intact. No pneumothorax. Unchanged small left pleural effusion with left mid lung and left basilar airspace opacities. The bon es appear grossly intact. KUB: Extensive colonic fecal retention. A gastrostomy tube projects over the stomach. Mid shunt catheter a ppears intact within the left upper quadrant. No urolith identified. No acute fracture. Demineralized appearance of the bones. IMPRESSION: 1. Unchanged small left pleural effusion with left mid lung and left basilar opacities. 2. Extensive fecal retention. 3. Gastrostomy tube appears to be in satisfactory positioning. ACT 112: Negative or not required by law. The above report was generated using voice recognition software. It may contain grammatical, syntax o r spelling errors. Electronically signed by: Corey Rodgers M.D. 08/23/2023 5:48 PM
--- NOTE | 2023-08-23 19:35 | Hospitalist Progress Note ---
Date of Service August 23, 2023 Assessment & Plan (1) Decubitus ulcer of sacral region, stage 4: Plan: s/p debridement in the OR by Dr Issa on 07/31/23 intra-op culture with MSSA, pseudomonas, providencia, and anaerobes zosyn IV had been utilized for coverage of the above pathogens Wound vac placed on 08/01 Vac changes Fri/Fri/Friday Photos reviewed including today's There had been exposed coccyx on examination about 2-3 weeks ago but the coccyx is now covered with tissue per wound care team With that said there has been little to no change otherwise in the wound Sherie [place] Marie changed the wound vac to a pulsating irrigation woundvac today [facility] ID added flagyl to the cefepime I spoke with gen surg and they will decide Friday whether to take Mr Viveros to the OR for debridement Hold eliquis starting today rectal tube placed 08/03/23 - stooling has improved significantly with questran c diff negative on 08/03 in fact, stool output significantly decreased KUB x-ray today with extensive well-formed stool throughout the colon would remove rectal tube and hold questran (2) Chronic osteomyelitis of sacrum: Plan: coccyx cont IV cefepime flagyl added by ID 6 weeks of IV abx had been recommended by ID course --> 07/3109/10/23 see #1 above (3) Hospital acquired PNA: Plan: 08/01 - cxr with worsening infiltrates on left 08/03 - collapse LLL 08/03 - bronchoscopy by Dr Blancas with mucous plugging found in the left-sided bronchial tree s/p removal; 08/07 - s/p bronch by Dr Lock - minimal secretions LLL, no plugs; thick secretions in trach, however culture from bronch shows that the pseudomonas is now intermediate resistance thus, changed zosyn back to cefepime IV on 08/09/23 remains on aggressive pulmonary toilet for this issue peak O2 requirement 07/31 - 08/01 -- 8-10 liters O2 cont saline nebs BID cont duonebs prn add back mucomyst due to increased secretions (and they are thick) cxr today with ongoing LLL infiltrates/effusion - maybe slightly worse than prior unfortunately we cannot place his left side up due to the wound vac (4) Gram-positive bacteremia: Plan: Potential culprits - SSTI sacral decubitus ulcer Group C strep bacteremia - source thought 2nd to sacral wound Coag neg staph bacteremia - contaminant vs bacteremia Corynebacterium bacteremia appreciate ongoing ID support appreciate pulmonary assistance (5) Transaminitis: Plan: resolved (6) Severe protein-calorie malnutrition: Plan: BMI 18, diffuse sarcopenia / muscle wasting present continue PEG tube feedings - peptamen not available, thus nutrition changed product to Jevity albumin was normal at 3.7 on 07/19/23 recheck an albumin this weekend (7) History of DVT (deep vein thrombosis): Plan: records reviewed -- RLE DVT discovered 11/2022 Had been on Eliquis 5mg BID since 12/12/22 Thus completed 6+ months of Rx hold eliquis for possible sacral debridement on Friday (8) Pneumatosis coli: Plan: Evaluated by General surgery last admission (mid June 2023) since no surgical abdomen/peritonitis/symptoms no Rx recommended during that admission etiology of the CT findings was uncertain abdominal exam remains benign / soft (9) History of nontraumatic rupture of cerebral aneurysm: Plan: Patient is nonverbal at baseline with chronic contractures in all 4 extremities Acquired quadriple[address] head shows encephalomalacia and good shunt placement Ry suffered a ruptured brain aneurysm and SAH 08/2022 Had craniotomy and evacuation. skull fragment was reimplanted in November per family. Had a HEATER MECHANIC shunt placement at [facility]. Has history of severe autonomic dysfunction / paroxysmal sympathetic hyperactivity / autonomic storm which is controlled on medications and has the potential to be confused with sepsis. 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 (15) Quadriplegia: Plan: 2nd to above (16) Sammi rash of groin: Plan: cont miconazole powder TID resolved (17) Diarrhea: Plan: had resolved previously had rectal tube - was removed - but then placed back again on 08/03 in the evening c diff neg on 07/18/23 and again on 08/03/23 cholestyramine has helped slow his stooling now he is constipated based on KUB x-ray remove rectal tube today hold questran Plan dispo - numerous referrals made by social work to various SNFs; he will not be returning to [facility] after this admission updated the pt's mother by phone 2 days ago updated pt's aunt at bedside yesterday evening Admission and Anticipated Discharge Date Admission Date: July 18, 2023 Subjective rectal tube overnight with minimal amount of liquid yellow secretions being suctioned from trach from staff and RT tolerating tube feedings no other acute changes Review of Systems Review of Systems: Unobtainable due to cognitive status Physical Exam Physical Exam: gen - NAD, sleeping, mild "quiet" tachypnea noted (RR~25) head - deformity right side from prior craniotomy - unchanged neck - no JVD; trach in place - clean heart - RRR, s1 s2, no murmur lungs - CTA b/l; no rales or wheeze; moderately decreased BS L base - a little worse than 3/1 abd - soft NT ND BS+; PEG tube site clean ext - trace edema, pulses 2+ b/l neuro - contractures all extremities Results & Data Results & Data Vital Signs (Past 12 Hours) Vital Signs Temp Pulse Resp BP Pulse Ox O2 Del Method O2 Flow Rate 08/23/23 19:24 36.6 C 97 H 16 128/88 96 Trach Collar 6 08/23/23 14:38 36.8 C 102 H 16 103/70 98 Trach Collar 6 08/23/23 08:07 104 H 18 98 Trach Collar 08/23/23 08:00 Trach Collar 6 FiO2 08/23/23 19:24 28 08/23/23 14:38 08/23/23 08:07 28 08/23/23 08:00 Laboratory Results Laboratory Results - last 24 hr 08/23/23 17:18 WBC 11.71 H RBC 3.25 L Hgb 9.7 L Hct 30.0 L MCV 92.3 MCH 29.8 MCHC 32.3 RDW Std Deviation 47.5 H RDW Coeff of Dario 14.0 Plt Count 317 MPV 11.9 Immature Gran % (Auto) 0.5 Neut % (Auto) 79.8 Lymph % (Auto) 9.7 Carroll % (Auto) 6.1 Eos % (Auto) 3.5 Baso % (Auto) 0.4 Neut # (Auto) 9.34 H Lymph # (Auto) 1.14 L Carroll # (Auto) 0.71 H Eos # (Auto) 0.41 Baso # (Auto) 0.05 Immature Gran # (Auto) 0.06 Sodium 138 Potassium 3.9 Chloride 101 Carbon Dioxide 28 Anion Gap 9 BUN 23 Creatinine 0.39 L Est Cr Clr Drug Dosing 195.8 Est GFR ( Amer) > 150.0 Est GFR (Non-Af Amer) > 150.0 BUN/Creatinine Ratio 59.0 H Glucose 124 H Calcium 9.0 Phosphorus 3.2 Magnesium 1.8 Diagnostic Findings Chest X-Ray 08/23/23 16:42 XR chest 1V portable, XR KUB/Abdomen 1 view HISTORY: 32 years-old Male h/o LLL pneumonia, decreased BS, interval change . Chest and abdominal pain COMPARISON: 08/08/2023 TECHNIQUE: AP view of the chest with KUB radiograph FINDINGS: CHEST: Tracheostomy cannula is in stable positioning. Image shunt catheter appears intact. No pneumothorax. Unchanged small left pleural effusion with left mid lung and left basilar airspace opacities. The bones appear grossly intact. KUB: Extensive colonic fecal retention. A gastrostomy tube projects over the stomach. Mid shunt catheter appears intact within the left upper quadrant. No urolith identified. No acute fracture. Demineralized appearance of the bones. IMPRESSION: 1. Unchanged small left pleural effusion with left mid lung and left basilar opacities. 2. Extensive fecal retention. 3. Gastrostomy tube appears to be in satisfactory positioning. ACT 112: Negative or not required by law. The above report was generated using voice recognition software. It may contain grammatical, syntax or spelling errors. Electronically signed by: Corey Rodgers M.D. 08/23/2023 5:48 PM KUB X-Ray 08/23/23 16:46 XR chest 1V portable, XR KUB/Abdomen 1 view HISTORY: 32 years-old Male h/o LLL pneumonia, decreased BS, interval change . Chest and abdominal pain COMPARISON: 08/08/2023 TECHNIQUE: AP view of the chest with KUB radiograph FINDINGS: CHEST: Tracheostomy cannula is in stable positioning. Image shunt catheter appears intact. No pneumothorax. Unchanged small left pleural effusion with left mid lung and left basilar airspace opacities. The bones appear grossly intact. KUB: Extensive colonic fecal retention. A gastrostomy tube projects over the stomach. Mid shunt catheter appears intact within the left upper quadrant. No urolith identified. No acute fracture. Demineralized appearance of the bones. IMPRESSION: 1. Unchanged small left pleural effusion with left mid lung and left basilar opacities. 2. Extensive fecal retention. 3. Gastrostomy tube appears to be in satisfactory positioning. ACT 112: Negative or not required by law. The above report was generated using voice recognition software. It may contain grammatical, syntax or spelling errors. Electronically signed by: Corey Rodgers M.D. 08/23/2023 5:48 PM PG Care Time/CCT Total # of Minutes Spent Total Time Spent with Patient: Total time spent is greater than 50% in coordination of care (as documented) at patient's floor/unit and/or counseling patient: Coding Level of Care Code 20178 SUB INP/OBS CARE 2/35MIN Diagnoses Decubitus ulcer of sacral region, stage 4 L89.154 Chronic osteomyelitis of sacrum M86.68 Hospital acquired PNA J18.9; Y95 Gram-positive bacteremia R78.81 Transaminitis R74.01 Severe protein-calorie malnutrition E43 History of DVT (deep vein thrombosis) Z86.718 Pneumatosis coli K63.89 History of nontraumatic rupture of cerebral aneurysm Z86.79 Autonomic dysfunction G90.9 Decubitus ulcer of calf, unstageable L89.890 Cardiomyopathy I42.9 Tracheostomy status Z93.0 Nonverbal R47.01 Quadriplegia G82.50 Sammi rash of groin B37.89 Diarrhea R19.7
[2023-08-23] MEDS: ACETYLCYSTEINE 20% INHAL SOLN 4ML ***DISPENSED BY RESP. INH SCH (20:13)
[2023-08-24 06:28] LABS: Creatinine Clr Calc Pharmacy 199.3 ml/min; Est GFR (African American) > 150.0 ml/min; Est GFR (Non-African American) > 150.0 ml/min
--- NOTE | 2023-08-24 19:53 | Hospitalist Progress Note ---
Date of Service August 24, 2023 Assessment & Plan (1) Decubitus ulcer of sacral region, stage 4: Plan: s/p debridement in the OR by Dr Issa on 07/31/23 intra-op culture with MSSA, pseudomonas, providencia, and anaerobes zosyn IV had been utilized for coverage of the above pathogens Wound vac placed on 08/01 Vac changes Fri/Fri/Friday Photos reviewed including today's There had been exposed coccyx on examination about 2-3 weeks ago but the coccyx is now covered with tissue per wound care team With that said there has been little to no change otherwise in the wound Sherie Crisostomoeliana changed the wound vac to a pulsating irrigation woundvac on 08/21/23 [facility] ID added flagyl to the cefepime on 08/21/23 I spoke with gen surg and they will decide Friday whether to take Mr Viveros to the OR for debridement Hold eliquis No tube feedings via PEG starting MN tonight rectal tube placed 08/03/23 - stooling has improved significantly with questran c diff negative on 08/03 in fact, stool output significantly decreased KUB x-ray 08/22 with extensive well-formed stool throughout the colon rectal tube removed 08/22 and questran on hold (2) Chronic osteomyelitis of sacrum: Plan: coccyx cont IV cefepime flagyl added by ID 08/21/23 6 weeks of IV abx had been recommended by ID course --> 07/3109/10/23 see #1 above during debridement could we perform bone biopsy of coccyx? (3) Hospital acquired PNA: Plan: 08/01 - cxr with worsening infiltrates on left 08/03 - collapse LLL 08/03 - bronchoscopy by Dr Blancas with mucous plugging found in the left-sided bronchial tree s/p removal; 08/07 - s/p bronch by Dr Lock - minimal secretions LLL, no plugs; thick secretions in trach, however culture from bronch shows that the pseudomonas is now intermediate resistance thus, changed zosyn back to cefepime IV on 08/09/23 remains on aggressive pulmonary toilet for this issue peak O2 requirement 07/31 - 08/01 -- 8-10 liters O2 cont saline nebs BID cont duonebs prn cont mucomyst BID due to increased thick secretions cxr from 08/22 noted - ongoing LLL infiltrates/effusion unfortunately we cannot place his left side up readily & easily due to the wound vac (4) Gram-positive bacteremia: Plan: Potential culprits - SSTI sacral decubitus ulcer Group C strep bacteremia - source thought 2nd to sacral wound Coag neg staph bacteremia - contaminant vs bacteremia Corynebacterium bacteremia appreciate ongoing ID support appreciate pulmonary assistance (5) Transaminitis: Plan: resolved (6) Severe protein-calorie malnutrition: Plan: BMI 18, diffuse sarcopenia / muscle wasting present continue PEG tube feedings - peptamen not available, thus nutrition changed product to Jevity albumin was normal at 3.7 on 07/19/23 recheck an albumin sometime next few days (7) History of DVT (deep vein thrombosis): Plan: records reviewed -- RLE DVT discovered 11/2022 Had been on Eliquis 5mg BID since 12/12/22 Thus completed 6+ months of Rx hold eliquis for possible sacral wound debridement on Friday (8) Pneumatosis coli: Plan: Evaluated by General surgery last admission (mid June 2023) since no surgical abdomen/peritonitis/symptoms no Rx recommended during that admission etiology of the CT findings was uncertain abdominal exam remains benign / soft (9) History of nontraumatic rupture of cerebral aneurysm: Plan: Patient is nonverbal at baseline with chronic contractures in all 4 extremities Acquired quadriplegia CT head shows encephalomalacia and good shunt placement Ry suffered a ruptured brain aneurysm and SAH 08/2022 Had craniotomy and evacuation. skull fragment was reimplanted in November per family. Had a [employer] shunt placement at [facility]. Has history of severe autonomic dysfunction / paroxysmal sympathetic hyperactivity / autonomic storm which is controlled on medications and has the potential to be confused with sepsis. 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 (15) Quadriplegia: Plan: 2nd to above (16) Sammi rash of groin: Plan: cont miconazole powder TID resolved (17) Diarrhea: Plan: had resolved previously had rectal tube - was removed - but then placed back again on 08/03 in the evening c diff neg on 07/18/23 and again on 08/03/23 cholestyramine has helped slow his stooling now he is constipated based on KUB x-ray removed rectal tube 08/22 hold questran had a soft, formed stool today Plan dispo - numerous referrals made by social work to various SNFs; he will not be returning to [facility] after this admission updated the pt's mother late last week updated pt's aunt at bedside on 08/21 will update pt's mother on 08/24 start IV fluids at [facility] while tube feedings are on hold Admission and Anticipated Discharge Date Admission Date: July 18, 2023 Subjective no changes overnight rectal tube d/c yesterday since then had a soft stool today secretions from trach much more thin s/p resumption of his mucomyst Review of Systems Review of Systems: Unobtainable due to cognitive status Physical Exam Physical Exam: gen - NAD, sleeping, no change from prior exam head - deformity right side from prior craniotomy - unchanged left ear - ongoing tiny ulceration of mid-ear lateral cartilage with mild surrounding erythema - about the same as previous exam neck - no JVD; trach in place - clean heart - RRR, s1 s2, no murmur lungs - CTA b/l; no rales or wheeze; BS L base MUCH improved airation today abd - soft NT ND BS+; PEG tube site clean ext - trace edema, pulses 2+ b/l neuro - contractures all extremities - no candidal rash Results & Data Results & Data Vital Signs (Past 12 Hours) Vital Signs Temp Pulse Resp BP BP Pulse Ox O2 Del Method 08/24/23 19:08 36.8 C 85 16 102/67 98 Aerosol Mask 08/24/23 15:36 36.8 C 88 15 104/68 99 Trach Collar 08/24/23 08:00 Trach Collar O2 Flow Rate FiO2 08/24/23 19:08 6 08/24/23 15:36 6 08/24/23 08:00 6 28 PG Care Time/CCT Total # of Minutes Spent Total Time Spent with Patient: Total time spent is greater than 50% in coordination of care (as documented) at patient's floor/unit and/or counseling patient: Coding Level of Care Code 59660 SUB INP/OBS CARE 2/35MIN Diagnoses Decubitus ulcer of sacral region, stage 4 L89.154 Chronic osteomyelitis of sacrum M86.68 Hospital acquired PNA J18.9; Y95 Gram-positive bacteremia R78.81 Transaminitis R74.01 Severe protein-calorie malnutrition E43 History of DVT (deep vein thrombosis) Z86.718 Pneumatosis coli K63.89 History of nontraumatic rupture of cerebral aneurysm Z86.79 Autonomic dysfunction G90.9 Decubitus ulcer of calf, unstageable L89.890 Cardiomyopathy I42.9 Tracheostomy status Z93.0 Nonverbal R47.01 Quadriplegia G82.50 Sammi rash of groin B37.89 Diarrhea R19.7
[2023-08-24] MEDS: D5NSS + 20MEQ KCL 20 MEQ/1,000 ML BAG IV SCH (23:10)
--- NOTE | 2023-08-25 15:43 | Surgery Progress Note ---
Date of Service August 25, 2023 Assessment & Plan (1) Sacral wound: Plan: The patient will be taken to the operating room today for wound debridement. Admission and Anticipated Discharge Date Admission Date: July 18, 2023 Subjective Patient nonverbal. No acute nursing issues o/n Physical Exam Constitutional: + thin afebrile Results & Data Vital Signs (Past 12 Hours) Vital Signs Temp Pulse Pulse Resp BP BP Pulse Ox 08/25/23 14:35 37.2 C 87 16 114/77 99 08/25/23 12:11 36.5 C 72 15 101/64 98 08/25/23 07:24 85 18 97 08/25/23 07:15 36.4 C L 84 15 117/79 99 08/25/23 06:12 36.9 C 82 18 112/77 99 O2 Del Method O2 Flow Rate FiO2 08/25/23 14:35 Trach Collar 08/25/23 12:11 Trach Collar 6 08/25/23 07:24 Trach Collar 6 28 08/25/23 07:15 Trach Collar 6 08/25/23 06:12 Trach Collar 6 PG Care Time/CCT Total # of Minutes Spent Total Time Spent with Patient: Total time spent is greater than 50% in coordination of care (as documented) at patient's floor/unit and/or counseling patient: Coding Level of Care Code 33011 Post Operative Follow-Up Diagnoses Wound of sacral region, subsequent encounter S31.000D Encounter type: subsequent encounter (1) Sacral wound Encounter type: subsequent encounter Qualified Code(s): S31.000D - Unspecified open wound of lower back and pelvis without penetration into retroperitoneum, subsequent encounter
--- NOTE | 2023-08-25 16:31 | Anesthesiology Consultation ---
Date of Service August 25, 2023 Assessment & Plan (1) Encounter for pre-operative examination: Chart Review Chart Review: Acceptable Risk for Surgery and Patient NOT seen in Pre Admission Testing Consults Requested none History Surgery Operation Date: 07/31/23 07:00 Proposed Procedures p Incision and Debridement of Sacral Decubitus Ulcer - Angela Issa DO Operation Date: 08/07/23 09:00 Proposed Procedures p Bronchoscopy Radiology - Dari Lock MD, [facility] Operation Date: 08/25/23 15:00 Proposed Procedures p Incision and Debridement of Sacral Decubitus Ulcer - Angela Issa DO Height/Weight Height: 5 ft 6 in Weight: 50.5 kg Allergies Allergy/AdvReac Type Severity Reaction Status Date / Time No Known Allergies Allergy Unverified 07/08/23 15:52 Medications Home Medications Medication Instructions Recorded Confirmed Last Taken scopolamine base 1 mg over 3 days 1 patch transdermal Q3D 04/02/23 07/18/23 07/08/23 08:00 transdermal patch acetaminophen 325 mg/10.15 mL oral 650 mg (20.3 mL) PEG Q6 #250 mL 04/17/23 07/18/23 07/08/23 06:00 suspension bromocriptine 2.5 mg tablet 2.5 mg feeding tube Q6 #120 tabs 04/17/23 07/18/23 07/08/23 06:00 bisacodyl 10 mg rectal suppository 10 mg LA .EVERY 24 HOURS PRN 05/04/23 07/18/23 06/28/23 Constipation Proheal 30 ml feeding tube BID 07/08/23 07/18/23 07/08/23 08:00 apixaban 5 mg tablet (Eliquis) 5 mg feeding tube BID 07/08/23 07/18/23 07/08/23 08:00 ascorbic acid (vitamin C) 500 mg 500 mg PO DAILY 07/08/23 07/18/23 07/08/23 09:00 tablet baclofen 20 mg tablet 20 mg feeding tube Q6 07/08/23 07/18/23 07/08/23 08:00 collagenase clostridium histo. 250 1 applic topical .EVERY DAY SHIFT 07/08/23 07/18/23 07/07/23 unit/gram topical ointment (Santyl) collagenase clostridium histo. 250 1 applic topical DIRECTED PRN 07/08/23 07/18/23 07/07/23 unit/gram topical ointment (Santyl) soilage/dislodgement ferrous sulfate 300 mg (60 mg 325 mg feeding tube Q OTHER DAY 07/08/23 07/18/23 07/08/23 09:00 iron)/5 mL oral liquid lactose-reduced food with fiber 1 ea feeding tube Q4 07/08/23 07/18/23 07/08/23 08:00 0.06 gram-1.5 kcal/mL oral liquid (Jevity 1.5 Lance) magnesium hydroxide 400 mg/5 mL 2,400 mg feeding tube DAILY PRN 07/08/23 07/18/23 06/28/23 oral suspension (Milk of Magnesia) Constipation metoprolol tartrate 25 mg tablet 25 mg PEG Q12 07/08/23 07/18/23 07/08/23 08:00 multivitamin 1 tab feeding tube QAM 07/08/23 07/18/23 07/08/23 09:00 sodium phosphates 19 gram-7 118 ml LA .MORNING OF 4TH DAY PRN 07/08/23 07/18/23 Unknown gram/118 mL enema (Fleet Enema) Constipation water 1 ea UD 07/08/23 07/18/23 07/08/23 08:00 zinc sulfate 50 mg zinc (220 mg) 50 mg feeding tube DAILY 07/08/23 07/18/23 07/08/23 09:00 tablet Magic Mix See Rx Instructions .Route .COMPLEX 07/18/23 07/18/23 Unknown Saccharomyces boulardii 250 mg 250 mg feeding tube DAILY 07/18/23 07/18/23 Unknown capsule dantrolene 100 mg capsule 100 mg feeding tube Q6H 07/18/23 07/18/23 Unknown gabapentin 400 mg capsule 400 mg feeding tube Q4H 07/18/23 07/18/23 Unknown Active Medications Generic Name Dose Route Start Last Admin Trade Name Freq PRN Reason Stop Dose Admin Acetaminophen 650 mg 08/19/23 09:30 08/25/23 15:34 Acetaminophen 325 Mg Tab PEG 09/18/23 09:29 Not Given Q6H TAYLOR Acetylcysteine 5 ml 08/23/23 19:00 08/25/23 07:24 Acetylcysteine 20% Inhal Soln 4ml Dispensed By Resp. INH 09/22/23 18:59 5 ml BIDR TAYLOR Administration Albuterol 3 ml 08/07/23 07:48 08/25/23 07:24 Albut/Ipratrop 3mg/0.5mg Neb 3 Ml Vial NEB 09/06/23 10:59 3 ml Q4R PRN Administration cough/wheezing/dyspnea Protocol Apixaban 2.5 mg 08/12/23 21:00 08/23/23 10:34 Apixaban 2.5 Mg Tab PO 09/11/23 20:59 2.5 mg BID TAYLOR Administration Ascorbic Acid 500 mg 07/19/23 09:00 08/25/23 08:47 Ascorbic Acid 500 Mg Tab PEG 09/14/23 08:59 500 mg DAILY TAYLOR Administration Baclofen 20 mg 08/13/23 12:00 08/25/23 12:55 Baclofen 20 Mg Tab PEG 09/12/23 11:59 20 mg Q6H TAYLOR Administration Bromocriptine Mesylate 2.5 mg 07/18/23 18:00 08/25/23 12:56 Bromocriptine Mesylate 2.5 Mg Tab PO 09/14/23 17:59 2.5 mg Q6 TAYLOR Administration Cholestyramine Resin 4 gm 08/09/23 22:00 08/20/23 22:16 Cholestyramine Light 4 Gm Pkt PEG 09/08/23 21:59 4 gm DAILY@2200 TAYLOR Administration Cholestyramine Resin 4 gm 08/20/23 10:15 08/23/23 09:50 Cholestyramine Light 4 Gm Pkt PEG 09/19/23 10:14 4 gm DAILY@1000 TAYLOR Administration Dantrolene Sodium 100 mg 07/18/23 18:00 08/25/23 12:56 Dantrolene Sodium 25 Mg Cap PEG 09/14/23 17:59 100 mg Q6 TAYLOR Administration Enteral Nutritional Formula 0 ml 08/10/23 11:00 08/25/23 15:34 Fibersource Hn 1.2 Lance 1000 Ml Bag GT 09/09/23 10:59 Not Given 5XDQ4H TAYLOR Protocol Ferrous Sulfate 325 mg 07/18/23 15:00 08/25/23 15:33 Ferrous Sulfate 325 Mg/7.4 Ml Udp PEG 09/14/23 14:59 Not Given Q48H TAYLOR Gabapentin 400 mg 07/18/23 18:00 08/25/23 12:55 Gabapentin 250 Mg/5 Ml 470 Ml Btl GT 09/14/23 17:59 400 mg Q6 TAYLOR Administration Cefepime HCl 2,000 mg/ 100 mls @ 33.333 mls/hr 08/09/23 11:00 08/25/23 15:20 Dextrose IV 09/20/23 10:59 Infused Q8H TAYLOR Infusion Protocol Potassium Chloride/Dextrose/Sod Cl 20 meq in 1,000 mls @ 60 mls/hr 08/25/23 00:00 08/25/23 12:25 D5nss + 20meq Kcl IV 09/24/23 00:00 60 mls/hr .[id number] TAYLOR Infusion Protocol Lactobacillus Acidophilus 2 cap 08/15/23 09:00 08/25/23 08:47 Advanced Probiotic 1250 Mg Capsule PO 09/14/23 08:59 2 cap DAILY TAYLOR Administration Loperamide HCl 2 mg 08/16/23 17:05 08/18/23 08:32 Loperamide Liquid 120 Ml Bottle GT 09/15/23 17:04 2 mg BID PRN Administration Diarrhea Melatonin 3 mg 07/18/23 21:00 08/24/23 20:31 Melatonin 3 Mg Tab PO 09/14/23 20:59 3 mg HS TAYLOR Administration Metoprolol Tartrate 25 mg 07/18/23 21:00 08/25/23 08:47 Metoprolol Tartrate 25 Mg Tab PEG 09/14/23 20:59 25 mg Q12 TAYLOR Administration Metronidazole 500 mg 08/21/23 21:00 08/25/23 08:47 Metronidazole 500 Mg Tab PO 10/02/23 20:59 500 mg BID TAYLOR Administration Protocol Miscellaneous 1 each 07/18/23 15:00 08/23/23 15:55 Remove Transderm-Scop Patch N/A 09/14/23 14:59 1 each Q72H TAYLOR Administration Miscellaneous 1 each 07/18/23 16:00 08/25/23 08:46 Check Scopolamine Patch Placement N/A 09/14/23 15:59 1 each QS TAYLOR Administration Multivitamins 1 tab 07/19/23 09:00 08/25/23 08:47 Multivitamin Tab PO 09/14/23 08:59 1 tab QAM TAYLOR Administration Nutritional Formula 30 ml 08/01/23 21:00 08/25/23 08:48 Prosource No Carb 30 Ml/Pkt GT 08/31/23 20:59 30 ml BID TAYLOR Administration Scopolamine 1 mg 07/18/23 15:00 08/23/23 15:54 Scopolamine 1 Mg Tdsy TD 09/14/23 14:59 1 mg Q3D TAYLOR Administration Sodium Chloride 4 ml 08/04/23 19:00 08/25/23 07:24 Sodium Chlor 7% 4 Ml Neb NEB 09/03/23 18:59 4 ml BIDR TAYLOR Administration Sterile Water 100 ml 07/18/23 17:00 08/25/23 12:24 Tube Feeding Water Flush GT 09/14/23 16:59 Not Given Q4H TAYLOR Sterile Water 60 ml 08/10/23 11:00 08/25/23 14:48 Tube Feeding Water Flush GT 09/09/23 10:59 Not Given 5XDQ4H TAYLOR NPO Date Last Intake of Fluids: 08/25/23 Time Last Intake of Fluids: 13:00 Last Intake of Fluids Comment: for peg tube meds Date Last Intake of Solids: 08/25/23 Time Last Intake of Solids: 00:00 Last Intake of Solids Comment: NPO with PEG tube feedings stopped at midnight Past Medical History Medical History Pneumonia involving left lung Sacral decubitus ulcer Quadriplegia Nonverbal Autonomic dysfunction Cardiomyopathy History of DVT (deep vein thrombosis) Moderate protein-calorie malnutrition History of nontraumatic rupture of cerebral aneurysm History of traumatic brain injury Past Surgical History Surgical History S/P debridement (07/31/23) Incision and Debridement of Sacral Decubitus Ulcer(Not Applicable) - Angela Issa DO Tracheostomy status S/P OBSTETRICAL TECH shunt Social History Smoking Status: Never smoker Do You Dip or Chew Tobacco: No Hx Alcohol Use: No Hx Substance Use: No Physical Exam Vital Signs Last Vital Signs Temp 98.2 F 08/25/23 16:11 Pulse 77 08/25/23 16:11 Resp 15 08/25/23 16:11 BP 112/74 08/25/23 16:11 Pulse Ox 100 08/25/23 16:11 O2 Del Method Trach Collar 08/25/23 16:11 O2 Flow Rate 6 08/25/23 16:11 FiO2 28 08/25/23 07:24 Testing Laboratory Results 08/23/23 17:18 08/24/23 05:39 PT 11.5 Seconds (9.0-12.0) 07/19/23 04:07 INR 1.1 (0.9-1.1) 07/19/23 04:07 Urine Color Yellow 07/19/23 04:15 Urine Appearance Clear (Clear) 07/19/23 04:15 Urine pH 7.0 (4.5-7.5) 07/19/23 04:15 Ur Specific [place] 1.020 (1.000-1.030) 07/19/23 04:15 Urine Protein Negative (Negative) 07/19/23 04:15 Urine Glucose (UA) Negative (Negative) 07/19/23 04:15 Urine Ketones Negative (Negative) 07/19/23 04:15 Urine Nitrite Negative (Negative) 07/19/23 04:15 Ur Leukocyte Esterase Negative (Negative) 07/19/23 04:15 08/22/23 10:00 Gram Stain - Final Sacrum Wound Culture - Final Low counts mixed probable skin microbiota. No further identifications or sensitivities to follow. 08/07/23 08:00 Fungal Smear - Final Ba Lavage,Left Lower Lobe Fungal Culture - Preliminary Sammi albicans/dubliniensis 08/07/23 08:00 Gram Stain - Final Ba Lavage,Left Lower Lobe Bronchial Culture - Final Pseudomonas aeruginosa 08/03/23 Unknown Gram Stain - Final Bronch Washings Combined Bronchial Culture - Final Pseudomonas aeruginosa 07/31/23 13:17 Gram Stain - Final Sacrum Decubitus Aerobic and Anaerobic Culture - Final Providencia stuartii Staphylococcus aureus Pseudomonas aeruginosa 07/18/23 14:35 Aerobic Blood Culture - Final Blood Coag neg staph not lugdunensis Anaerobic Blood Culture - Final 07/23/23 08:36 Aerobic Blood Culture - Final Blood No growth in Aerobic bottle after 5 days. Anaerobic Blood Culture - Final No growth in Anaerobic bottle after 5 days. 07/23/23 08:29 Aerobic Blood Culture - Final Blood No growth in Aerobic bottle after 5 days. Anaerobic Blood Culture - Final No growth in Anaerobic bottle after 5 days. 07/18/23 14:35 Aerobic Blood Culture - Final Blood No growth in Aerobic bottle after 5 days. Anaerobic Blood Culture - Final Electrocardiogram Date: 07/17/23 Findings: + NSR @ Chest X-Ray Date: 07/23/23 Findings: + NAD Echocardiogram Date: 07/11/23 EF: 50-55 LV Function: normal
[2023-08-25] MEDS ORDERED: fentaNYL citrate PF 100 MCG/2 ML VIAL ONE (17:41)
[2023-08-25] MEDS ORDERED: PROPOFOL IV EMULSION 10 MG/ML 20 ML VIAL IV ONE (17:45)
[2023-08-25] MEDS: BUPIVACAINE/EPINEPHRINE 0.5% MPF 1:200,000 30 ML VIAL ONE (17:48)
[2023-08-25] MEDS: ceFAZolin 330 MG/ML 1 GM VIAL ONE (17:49)
--- NOTE | 2023-08-25 18:08 | Operative Report ---
PG Post Operative Report Pre & Post Diagnosis Operation Date: 08/25/23 15:00 Pre-Op Diagnosis: Sacral wound Post-Op Diagnosis: Sacral wound I identified the patient and participated in the time-out.: Yes Procedure Operation Date: 08/25/23 15:00 Actual Procedures p Irrigation and Debridement of Sacral Decubitus Ulcer(Not Applicable) - Angela Issa DO Surgeon Angela Issa DO Horse Racing Analyst No ophthalmology surgical technician Estimated Blood Loss 5 Findings See Below Specimens Coccyx bone for culture Anesthesia Type RN Sedation Complications None Indications Nonhealing wound with small amounts of necrotic debris. Description of Procedure The patient was brought back to the operating room and connected to cardiac and oxygen monitoring, supplemental O2 was provided. He was positioned on the operating room table in a gentle lateral decubitus position with multiple areas of padding. The patient was administered general anesthesia. Wound dressings were removed and the sacral area was prepped and draped in typical sterile fashion. The wound was gently debrided removing superficial film as well as some necrotic tissue from around the outside edge of the wound at the superior aspect. The underlying tissue was somewhat soft and unhealthy hyper granulation. There were 2 areas of bone felt at both the sacrum and the coccyx. There was a small amount of necrotic debris over the coccyx area so this was removed with a rongeur and sent as a bone biopsy for culture. Debridement included skin, subcutaneous tissue muscle, bone of a roughly 7 cm wide wound. The wound was gently irrigated with normal saline, packed with Kerlix, dressed with gauze and ABD secured in place with tape. The patient tolerated the procedure well. He was awakened from anesthesia and transferred recovery stable condition I attest to the content of the Intraoperative Record and any orders documented therein. Any exceptions are noted below.
--- NOTE | 2023-08-25 18:31 | Anesthesiology Progress Note ---
Date of Service August 25, 2023 Anesthesia Post Procedure Vital Signs Vital Signs: Temp Pulse Pulse Resp BP BP Pulse Ox 08/25/23 18:20 79 15 124/82 100 08/25/23 18:10 97 H 15 116/81 100 08/25/23 18:00 97.2 F L 74 11 L 101/66 100 08/25/23 16:11 98.2 F 77 15 112/74 100 08/25/23 14:35 99.0 F 87 16 114/77 99 08/25/23 12:11 97.7 F 72 15 101/64 98 08/25/23 08:43 08/25/23 07:24 85 18 97 08/25/23 07:15 97.5 F L 84 15 117/79 99 08/25/23 06:12 98.4 F 82 18 112/77 99 08/24/23 20:46 08/24/23 20:00 84 18 97 08/24/23 19:08 98.2 F 85 16 102/67 98 O2 Del Method O2 Flow Rate FiO2 08/25/23 18:20 Free Flow/Blow-by, Trach Collar 2 08/25/23 18:10 Free Flow/Blow-by, Trach Collar 7 08/25/23 18:00 Free Flow/Blow-by, Trach Collar 7 08/25/23 16:11 Trach Collar 6 08/25/23 14:35 Trach Collar 08/25/23 12:11 Trach Collar 6 08/25/23 08:43 Trach Collar 6 28 08/25/23 07:24 Trach Collar 6 28 08/25/23 07:15 Trach Collar 6 08/25/23 06:12 Trach Collar 6 08/24/23 20:46 Trach Collar 08/24/23 20:00 Trach Collar 6 28 08/24/23 19:08 Aerosol Mask 6 Transfer of Care Handoff Completed per policy Notes Mental Status: see notes below Nausea / Vomiting: adequately controlled Pain: adequately controlled Airway Patency, RR, SpO2: stable & adequate BP & HR: stable & adequate Hydration State: stable & adequate Anesthetic Complications: no major complications apparent Notes: patient non-verbal, at baseline in recovery room
--- NOTE | 2023-08-25 19:12 | Hospitalist Progress Note ---
Date of Service August 25, 2023 Assessment & Plan (1) Decubitus ulcer of sacral region, stage 4: Plan: s/p debridement in the OR by Dr Issa on 07/31/23 intra-op culture with MSSA, pseudomonas, providencia, and anaerobes zosyn IV had been utilized for coverage of the above pathogens Wound vac placed on 08/01 Vac changes Fri/Fri/Friday There had been exposed coccyx on examination about 2-3 weeks ago but the coccyx is now covered with tissue per wound care team With that said there has been little to no change otherwise in the wound Sherie Ann Marie changed the wound vac to a pulsating irrigation woundvac on 08/21/23 [facility] ID added flagyl to the cefepime on 08/21/23 s/p debridement in the OR today by Dr Dorsey; she also took a biopsy/culture of the coccyx cont cefepime/flagyl await intra-op culture appreciate gen surg assistance appreciate wound care assistance appreciate nutrition assistance of note - rectal tube placed 08/03/23 and removed on 08/23/23 (2) Chronic osteomyelitis of sacrum: Plan: coccyx cont IV cefepime flagyl added by ID 08/21/23 6 weeks of IV abx had been recommended by ID originally original course --> 07/31/23 09/10/23 see #1 above (3) Hospital acquired PNA: Plan: LLL -- resolved 2nd pseudomonas infection 08/01 - cxr with worsening infiltrates on left 08/03 - collapse LLL 08/03 - bronchoscopy by Dr Blancas with mucous plugging found in the left-sided bronchial tree s/p removal; 08/07 - s/p bronch by Dr Lock - minimal secretions LLL, no plugs; thick secretions in trach, however 08/09 - bronch cx - pseudomonas, intermediate resistance 08/09 - changed zosyn to cefepime 08/22 - cxr - ongoing LLL infiltrates/effusion - similar to previous imaging cont saline nebs BID cont duonebs prn cont mucomyst BID due to increased thick secretions unfortunately we cannot place his left side up readily & easily due to the wound vac (4) Gram-positive bacteremia: Plan: 06/2023 -- sources included: SSTI sacral decubitus ulcer Group C strep bacteremia - source thought 2nd to sacral wound Coag neg staph bacteremia - contaminant vs bacteremia Corynebacterium bacteremia (5) Transaminitis: Plan: resolved (6) Severe protein-calorie malnutrition: Plan: BMI 18, diffuse sarcopenia / muscle wasting present continue PEG tube feedings - peptamen not available, thus nutrition changed product to Jevity albumin was normal at level of 4 in late July recheck LFTs tomorrow cont vit C cont MVI (7) History of DVT (deep vein thrombosis): Plan: records reviewed -- RLE DVT discovered 11/2022 Had been on Eliquis 5mg BID since 12/12/22 Thus completed 6+ months of Rx 5mg dose was ultimately reduced to 2.5mg BID Eliquis was placed on hold for sacral wound debridement today resume when ok with surgery (8) Pneumatosis coli: Plan: Evaluated by General surgery last admission (mid June 2023) since no surgical abdomen/peritonitis/symptoms no Rx recommended during that admission etiology of the CT findings was uncertain abdominal exam remains benign / soft day-to-day (9) History of nontraumatic rupture of cerebral aneurysm: Plan: Patient is nonverbal at baseline with chronic contractures in all 4 extremities Acquired quadriple[address] head shows encephalomalacia and good shunt placement Ry suffered a ruptured brain aneurysm and SAH 08/2022 Had craniotomy and evacuation. skull fragment was reimplanted in November per family. Had a TOPOGRAPHICAL SURVEYOR shunt placement at [facility]. Has history of severe autonomic dysfunction / paroxysmal sympathetic hyperactivity / autonomic storm which is controlled on medications and has the potential to be confused with sepsis. 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 (15) Quadriplegia: Plan: 2nd to above (16) Sammi rash of groin: Plan: cont miconazole powder TID resolved (17) Diarrhea: Plan: c diff neg on 07/18/23 and again on 08/03/23 due to minimal rectal tube output and constipation removed rectal tube on 08/23/23 had a soft, formed stool 08/24/23 questran on hold for now (18) Ulcer of external ear: Plan: left ear, lateral cartilage cont local wound care offload the ear as much as possible Plan dispo - numerous referrals made by social work to various SNFs; he will not be returning to [facility] after this admission updated pt's aunt at bedside on 08/21 updated Ry's mother on 08/24 stop IV fluids resume usual tube feedings schedule Admission and Anticipated Discharge Date Admission Date: July 18, 2023 Subjective Mr Viveros went to the OR today with Dr Dorsey from gen surg for debridement of his sacral decub and bone biopsy of coccyx I saw him post-op He was resting comfortably in bed looked the same as on previous visits Review of Systems Review of Systems: Unobtainable due to cognitive status Physical Exam Physical Exam: gen - NAD, sleeping head - deformity right side from prior craniotomy - unchanged neck - no JVD; trach in place - clean heart - RRR, s1 s2, no murmur lungs - CTA b/l; no rales or wheeze; BS L base improved relative to prior exams abd - soft NT ND BS+; PEG tube site clean ext - trace edema, pulses 2+ b/l neuro - contractures all extremities Results & Data Results & Data Vital Signs (Past 12 Hours) Vital Signs Temp Pulse Pulse Resp BP BP Pulse Ox 08/25/23 18:40 36.5 C 86 14 113/76 97 08/25/23 18:30 36.5 C 84 16 110/75 96 08/25/23 18:20 79 15 124/82 100 08/25/23 18:10 97 H 15 116/81 100 08/25/23 18:00 36.2 C L 74 11 L 101/66 100 08/25/23 16:11 36.8 C 77 15 112/74 100 08/25/23 14:35 37.2 C 87 16 114/77 99 08/25/23 12:11 36.5 C 72 15 101/64 98 08/25/23 08:43 08/25/23 07:24 85 18 97 08/25/23 07:15 36.4 C L 84 15 117/79 99 O2 Del Method O2 Flow Rate FiO2 08/25/23 18:40 Trach Collar 6 28 08/25/23 18:30 Room Air, Trach Collar 08/25/23 18:20 Free Flow/Blow-by, Trach Collar 2 08/25/23 18:10 Free Flow/Blow-by, Trach Collar 7 08/25/23 18:00 Free Flow/Blow-by, Trach Collar 7 08/25/23 16:11 Trach Collar 6 08/25/23 14:35 Trach Collar 08/25/23 12:11 Trach Collar 6 08/25/23 08:43 Trach Collar 6 28 08/25/23 07:24 Trach Collar 6 28 08/25/23 07:15 Trach Collar 6 PG Care Time/CCT Total # of Minutes Spent Total Time Spent with Patient: Total time spent is greater than 50% in coordination of care (as documented) at patient's floor/unit and/or counseling patient: Coding Level of Care Code 95393 SUB INP/OBS CARE 2MIN Diagnoses Decubitus ulcer of sacral region, stage 4 L89.154 Chronic osteomyelitis of sacrum M86.68 Hospital acquired PNA J18.9; Y95 Gram-positive bacteremia R78.81 Transaminitis R74.01 Severe protein-calorie malnutrition E43 History of DVT (deep vein thrombosis) Z86.718 Pneumatosis coli K63.89 History of nontraumatic rupture of cerebral aneurysm Z86.79 Autonomic dysfunction G90.9 Decubitus ulcer of calf, unstageable L89.890 Cardiomyopathy I42.9 Tracheostomy status Z93.0 Nonverbal R47.01 Quadriplegia G82.50 Sammi rash of groin B37.89 Diarrhea R19.7 Ulcer of external ear L98.499
[2023-08-26 06:11] LABS: Hematocrit (blood only) 30.7 % (42.0-52.0); Hemoglobin 9.3 g/dl (14.0-18.0); Mean Corpuscular Hemoglobin 28.9 pg (25.0-34.0); Mean Corpuscular Hgb Conc 30.3 g/dL (32.0-36.0); Mean Corpuscular Volume 95.3 fL (80.0-100.0); Platelet Count 304 K/uL (130-400); RDW Standard Deviation 48.3 fL (36.4-46.3); Red Blood Count 3.22 M/uL (4.70-6.10); White Blood Count 8.19 K/ul (4.8-10.8)
[2023-08-26 06:32] LABS: Albumin Level 3.6 gm/dl (3.4-5.0); Anion Gap 8 (3-11); Bilirubin,Total 0.3 mg/dl (0.2-1.0); Carbon Dioxide 27 mmol/L (21-32); Chloride 104 mmol/L (98-107); Potassium 4.2 mmol/L (3.5-5.1); Sodium 139 mmol/L (136-145)
[2023-08-26 06:38] LABS: Alanine Aminotransferase 9 U/L (7-52); Albumin Globulin Ratio 1.1 (0.9-2); Alkaline Phosphatase 57 U/L (34-104); Aspartate Aminotransferase 11 U/L (13-39); BUN Creatinine Ratio 63.6 (10-20); Blood Urea Nitrogen 21 mg/dl (6-23); C Reactive Protein 3.81 mg/dl (0-0.5); Creatinine Clr Calc Pharmacy 229.5 ml/min; Est GFR (African American) > 150.0 ml/min; Est GFR (Non-African American) > 150.0 ml/min; Globulin 3.4 gm/dl (2.5-4.0); Glucose 97 mg/dl (70-99(Fasting))
--- NOTE | 2023-08-26 08:22 | Surgery Progress Note ---
Date of Service August 26, 2023 Assessment & Plan (1) Sacral wound: Plan: POD 1 Irrigation and Debridement of Sacral Decubitus Ulcer with Dr. Jameel Sutton pt resting comfortable in bed Wound care nurse reconsulted for assessment , of poss. wound vac. Admission and Anticipated Discharge Date Admission Date: July 18, 2023 Subjective Pt resting in bed Physical Exam Physical Exam: resting Respiratory: Has tracheostomy Cardiovascular: Rate/Rhythm: + tachycardic (110) Results & Data Vital Signs (Past 12 Hours) Vital Signs Temp Pulse Pulse Resp BP Pulse Ox O2 Del Method 08/26/23 08:08 99.1 F 110 H 18 102/66 97 Room Air 08/26/23 07:46 80 14 97 Trach Collar 08/26/23 03:11 98.1 F 102 H 15 104/71 100 Trach Collar 08/26/23 01:24 98.4 F 97 H 15 104/70 99 Trach Collar 08/25/23 21:45 97.5 F L 85 15 108/75 100 Trach Collar 08/25/23 20:57 97.9 F 69 14 112/77 100 Trach Collar O2 Flow Rate FiO2 08/26/23 08:08 08/26/23 07:46 6 28 08/26/23 03:11 08/26/23 01:24 08/25/23 21:45 08/25/23 20:57 PG Care Time/CCT Total # of Minutes Spent Total Time Spent with Patient: Total time spent is greater than 50% in coordination of care (as documented) at patient's floor/unit and/or counseling patient: Coding Level of Care Code 67986 Post Operative Follow-Up Diagnoses Wound of sacral region, subsequent encounter S31.000D Encounter type: subsequent encounter (1) Sacral wound Encounter type: subsequent encounter Qualified Code(s): S31.000D - Unspecified open wound of lower back and pelvis without penetration into retroperitoneum, subsequent encounter
--- NOTE | 2023-08-26 18:18 | Hospitalist Progress Note ---
Date of Service August 26, 2023 Assessment & Plan (1) Decubitus ulcer of sacral region, stage 4: Plan: s/p debridement in the OR by Dr Issa on 07/31/23 intra-op culture with MSSA, pseudomonas, providencia, and anaerobes zosyn IV had been utilized for coverage of the above pathogens Wound vac placed on 08/01 Vac changes Fri/Fri/Friday There had been exposed coccyx on examination about 2-3 weeks ago but the coccyx is now covered with tissue per wound care team With that said there has been little to no change otherwise in the wound Sherie Ann Marie changed the wound vac to a pulsating irrigation woundvac on 08/21/23 [facility] ID added flagyl to the cefepime on 08/21/23 s/p debridement in the OR 08/[address] Dorsey; she also took a biopsy/culture of the coccyx cont cefepime/flagyl await intra-op culture, bone biopsy appreciate gen surg assistance appreciate wound care assistance appreciate nutrition assistance of note - rectal tube placed 08/03/23 and removed on 08/23/23 (2) Chronic osteomyelitis of sacrum: Plan: coccyx cont IV cefepime flagyl added by ID 08/21/23 6 weeks of IV abx had been recommended by ID originally original course --> 07/31/23 09/10/23 see #1 above (3) Hospital acquired PNA: Plan: LLL -- resolved 2nd pseudomonas infection 08/01 - cxr with worsening infiltrates on left 08/03 - collapse LLL 08/03 - bronchoscopy by Dr Blancas with mucous plugging found in the left-sided bronchial tree s/p removal; 08/07 - s/p bronch by Dr Lock - minimal secretions LLL, no plugs; thick secretions in trach, however 08/09 - bronch cx - pseudomonas, intermediate resistance 08/09 - changed zosyn to cefepime 08/22 - cxr - ongoing LLL infiltrates/effusion - similar to previous imaging cont saline nebs BID cont duonebs prn cont mucomyst BID due to increased thick secretions unfortunately we cannot place his left side up readily & easily due to the wound vac (4) Gram-positive bacteremia: Plan: 06/2023 -- sources included: SSTI sacral decubitus ulcer Group C strep bacteremia - source thought 2nd to sacral wound Coag neg staph bacteremia - contaminant vs bacteremia Corynebacterium bacteremia (5) Transaminitis: Plan: resolved -LFT remain normal/low 08/25 (6) Severe protein-calorie malnutrition: Plan: BMI 18, diffuse sarcopenia / muscle wasting present continue PEG tube feedings - peptamen not available, thus nutrition changed product to Jevity albumin was normal at level of 4 in late July, 3.6 on 08/25 cont vit C cont MVI (7) History of DVT (deep vein thrombosis): Plan: records reviewed -- RLE DVT discovered 11/2022 Had been on Eliquis 5mg BID since 12/12/22 Thus completed 6+ months of Rx 5mg dose was ultimately reduced to 2.5mg BID Eliquis was placed on hold for sacral wound debridement resume when ok with surgery - likely in AM (8) Pneumatosis coli: Plan: Evaluated by General surgery last admission (mid June 2023) since no surgical abdomen/peritonitis/symptoms no Rx recommended during that admission etiology of the CT findings was uncertain abdominal exam remains benign / soft day-to-day (9) History of nontraumatic rupture of cerebral aneurysm: Plan: Patient is nonverbal at baseline with chronic contractures in all 4 extremities Acquired quad[address] head shows encephalomalacia and good shunt placement yR suffered a ruptured brain aneurysm and SAH 08/2022 Had craniotomy and evacuation. skull fragment was reimplanted in November per family. Had a KNITTING TEACHER shunt placement at [facility]. Has history of severe autonomic dysfunction / paroxysmal sympathetic hyperactivity / autonomic storm which is controlled on medications and has the potential to be confused with sepsis. 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 (15) Quadriplegia: Plan: 2nd to above (16) Sammi rash of groin: Plan: cont miconazole powder TID resolved (17) Diarrhea: Plan: c diff neg on 07/18/23 and again on 08/03/23 due to minimal rectal tube output and constipation removed rectal tube on 08/23/23 had a soft, formed stool 08/24/23 questran on hold for now (18) Ulcer of external ear: Plan: left ear, lateral cartilage cont local wound care offload the ear as much as possible Plan dispo - numerous referrals made by social work to various SNFs; he will not be returning to [facility] after this admission updated pt's aunt at bedside on 08/21, 08/25 updated Ry's mother on 08/24 resume apixaban in AM Admission and Anticipated Discharge Date Admission Date: July 18, 2023 Subjective nonverbal wound nurse team and aunt in room, vac change in progress no diarrhea Physical Exam 2 Physical Exam: PHYSICAL EXAMINATION Last 24h vital signs reviewed, see documentation in flowsheet General: eyes open, getting vac change HEENT: trach site cdi Lungs: deferred Heart: deferred Abdomen: nondistended. G-tube site mid abdomen. Rectal tube no longer present Sacral decubitus with pink base, no drainage/odor, sacral bone not visible but is easily palpable per wound RN, biopsy site within the ulcer - no bleeding or drainage Extremities: Warm, dry, well-perfused. No extremity edema. diffuse sarcopenia present he has flexion contractures of both wrists, right elbow, bilateral lower extremities mildly flexed, high tone throughout calf wounds have healed - examined 08/25 Neuro: eyes open, gaze leftward, didn't track me, RUE>LUE and bilateral LE contractures, severe diffuse sarcopenia Psych: unable to assess, no agitation Results & Data Results & Data Vital Signs (Past 12 Hours) Vital Signs Temp Pulse Resp BP Pulse Ox O2 Del Method O2 Flow Rate 08/26/23 17:46 37.0 C 88 18 106/66 100 Trach Collar 6 08/26/23 08:08 37.3 C 110 H 18 102/66 97 Room Air 08/26/23 07:46 80 14 97 Trach Collar 6 08/26/23 07:35 Trach Collar 6 FiO2 08/26/23 17:46 08/26/23 08:08 08/26/23 07:46 28 08/26/23 07:35 28 Laboratory Results 08/26/23 05:43 08/26/23 05:43 PG Care Time/CCT Total # of Minutes Spent Total Time Spent with Patient: Total time spent is greater than 50% in coordination of care (as documented) at patient's floor/unit and/or counseling patient: Coding Level of Care Code 46030 SUB INP/OBS CARE 235MIN Diagnoses Decubitus ulcer of sacral region, stage 4 L89.154 Chronic osteomyelitis of sacrum M86.68 Hospital acquired PNA J18.9; Y95 Gram-positive bacteremia R78.81 Transaminitis R74.01 Severe protein-calorie malnutrition E43 History of DVT (deep vein thrombosis) Z86.718 Pneumatosis coli K63.89 History of nontraumatic rupture of cerebral aneurysm Z86.79 Autonomic dysfunction G90.9 Decubitus ulcer of calf, unstageable L89.890 Cardiomyopathy I42.9 Tracheostomy status Z93.0 Nonverbal R47.01 Quadriplegia G82.50 Sammi rash of groin B37.89 Diarrhea R19.7 Ulcer of external ear L98.499
[2023-08-27 07:30] LABS: Creatinine Clr Calc Pharmacy 199.3 ml/min; Est GFR (African American) > 150.0 ml/min; Est GFR (Non-African American) > 150.0 ml/min
[2023-08-27] MEDS: TUBE FEEDING WATER FLUSH PEG SCH (13:45)
--- NOTE | 2023-08-27 18:30 | Hospitalist Progress Note ---
Date of Service August 27, 2023 Assessment & Plan (1) Decubitus ulcer of sacral region, stage 4: Plan: s/p debridement in the OR by Dr Issa on 07/31/23 intra-op culture with MSSA, pseudomonas, providencia, and anaerobes zosyn IV had been utilized for coverage of the above pathogens Wound vac placed on 08/01 Vac changes Fri/Fri/Friday There had been exposed coccyx on examination about 2-3 weeks ago but the coccyx is now covered with tissue per wound care team With that said there has been little to no change otherwise in the wound Sherie Ann Marie changed the wound vac to a pulsating irrigation woundvac on 08/21/23 [facility] ID added flagyl to the cefepime on 08/21/23 s/p debridement in the OR 08/[address] Dorsey; she also took a biopsy/culture of the coccyx culture - mod counts mixed skin juice biopsy - pending cont cefepime/flagyl (2) Chronic osteomyelitis of sacrum: Plan: coccyx cont IV cefepime flagyl added by ID 08/21/23 6 weeks of IV abx had been recommended by ID originally original course --> 07/31/23 09/10/23 see #1 above (3) Hospital acquired PNA: Plan: LLL -- resolved 2nd pseudomonas infection 08/01 - cxr with worsening infiltrates on left 08/03 - collapse LLL 08/03 - bronchoscopy by Dr Blancas with mucous plugging found in the left-sided bronchial tree s/p removal; 08/07 - s/p bronch by Dr Lock - minimal secretions LLL, no plugs; thick secretions in trach, however 08/09 - bronch cx - pseudomonas, intermediate resistance 08/09 - changed zosyn to cefepime 08/22 - cxr - ongoing LLL infiltrates/effusion - similar to previous imaging cont saline nebs BID cont duonebs prn cont mucomyst BID unfortunately we cannot place his left side up readily & easily due to the wound vac (4) Gram-positive bacteremia: Plan: 06/2023 -- sources included: SSTI sacral decubitus ulcer Group C strep bacteremia - source thought 2nd to sacral wound Coag neg staph bacteremia - contaminant vs bacteremia Corynebacterium bacteremia (5) Transaminitis: Plan: resolved -LFT remain normal/low 08/25 (6) Severe protein-calorie malnutrition: Plan: BMI 18, diffuse sarcopenia / muscle wasting present continue PEG tube feedings - peptamen not available, thus nutrition changed product to Jevity albumin was normal at level of 4 in late July, 3.6 on 08/25 cont vit C cont MVI (7) History of DVT (deep vein thrombosis): Plan: records reviewed -- RLE DVT discovered 11/2022 Had been on Eliquis 5mg BID since 12/12/22 Thus completed 6+ months of Rx 5mg dose was ultimately reduced to 2.5mg BID Eliquis was placed on hold for sacral wound debridement - resume (8) Pneumatosis coli: Plan: Evaluated by General surgery last admission (mid June 2023) since no surgical abdomen/peritonitis/symptoms no Rx recommended during that admission etiology of the CT findings was uncertain abdominal exam remains benign / soft day-to-day (9) History of nontraumatic rupture of cerebral aneurysm: Plan: Patient is nonverbal at baseline with chronic contractures in all 4 extremities Acquired quad[address] head shows encephalomalacia and good shunt placement Ry suffered a ruptured brain aneurysm and SAH 08/2022 Had craniotomy and evacuation. skull fragment was reimplanted in November per family. Had a HAT CLEANER shunt placement at [facility]. Has history of severe autonomic dysfunction / paroxysmal sympathetic hyperactivity / autonomic storm which is controlled on medications and has the potential to be confused with sepsis. 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 -resume daily miralax (18) Ulcer of external ear: Plan: left ear, lateral cartilage cont local wound care offload the ear as much as possible Plan dispo - numerous referrals made by social work to various SNFs; he will not be returning to [facility] after this admission updated pt's aunt at bedside on 08/21, 08/25 updated Ry's mother on 08/24 Admission and Anticipated Discharge Date Admission Date: July 18, 2023 Subjective no events nonverbal Physical Exam Physical Exam: PHYSICAL EXAMINATION Last 24h vital signs reviewed, see documentation in flowsheet General: eyes open, lying on back HEENT: trach site cdi Lungs: CTAB anteriorly Heart: Reg no mrg Abdomen: nondistended. G-tube site mid abdomen. Sacral decubitus examined 08/25 Extremities: Warm, dry, well-perfused. No extremity edema. diffuse sarcopenia present he has flexion contractures of both wrists, right elbow, bilateral lower extremities mildly flexed, high tone throughout calf wounds have healed - examined 08/25 Neuro: eyes open, gaze forward, roving, didn't track me, RUE>LUE and bilateral LE contractures, severe diffuse sarcopenia Psych: unable to assess, no agitation Results & Data Results & Data Vital Signs (Past 12 Hours) Vital Signs Temp Pulse Resp BP Pulse Ox O2 Del Method O2 Flow Rate 08/27/23 14:34 36.6 C 85 16 106/73 100 Trach Collar 6 08/27/23 07:35 Trach Collar 6 08/27/23 07:32 89 18 98 Trach Collar 08/27/23 07:15 36.6 C 89 16 112/72 98 Trach Collar 6 FiO2 08/27/23 14:34 08/27/23 07:35 20 08/27/23 07:32 28 08/27/23 07:15 Laboratory Results Cr 0.38 PG Care Time/CCT Total # of Minutes Spent Total Time Spent with Patient: Total time spent is greater than 50% in coordination of care (as documented) at patient's floor/unit and/or counseling patient: Coding Level of Care Code 44427 SUB INP/OBS CARE 235MIN Diagnoses Decubitus ulcer of sacral region, stage 4 L89.154 Chronic osteomyelitis of sacrum M86.68 Hospital acquired PNA J18.9; Y95 Gram-positive bacteremia R78.81 Transaminitis R74.01 Severe protein-calorie malnutrition E43 History of DVT (deep vein thrombosis) Z86.718 Pneumatosis coli K63.89 History of nontraumatic rupture of cerebral aneurysm Z86.79 Autonomic dysfunction G90.9 Decubitus ulcer of calf, unstageable L89.890 Cardiomyopathy I42.9 Tracheostomy status Z93.0 Nonverbal R47.01 Quadriplegia G82.50 Sammi rash of groin B37.89 Diarrhea R19.7 Ulcer of external ear L98.499
[2023-08-27] MEDS: FIBERSOURCE HN 1.2 CAL 1000 ML BAG GT SCH (21:37)
[2023-08-27] MEDS: POLYETHYLENE (MIRALAX) 17 GM PACK GT SCH (21:48)
[2023-08-28] MEDS: ADVANCED PROBIOTIC 625 MG CAPSULE PO SCH (09:00)
--- NOTE | 2023-08-28 20:14 | Hospitalist Progress Note ---
Date of Service August 28, 2023 Assessment & Plan (1) Decubitus ulcer of sacral region, stage 4: Plan: s/p debridement in the OR by Dr Issa on 07/31/23 intra-op culture with MSSA, pseudomonas, providencia, and anaerobes zosyn IV had been utilized for coverage of the above pathogens Wound vac placed on 08/01 Vac changes Fri/Fri/Friday There had been exposed coccyx on examination about 2-3 weeks ago but the coccyx is now covered with tissue per wound care team With that said there has been little to no change otherwise in the wound Sherie Ann Marie changed the wound vac to a pulsating irrigation woundvac on 08/21/23 [facility] ID added flagyl to the cefepime on 08/21/23 s/p debridement in the OR 08/[address] Dorsey; she also took a biopsy/culture of the coccyx culture - mod counts mixed skin juice sacral bone biopsy culture 08/24 - enterococcus sensi pending cont cefepime/flagyl await sensis on enterococcus (2) Chronic osteomyelitis of sacrum: Plan: coccyx cont IV cefepime flagyl added by ID 08/21/23 6 weeks of IV abx had been recommended by ID originally original course --> 07/31/23 09/10/23 see #1 above (3) Hospital acquired PNA: Plan: LLL -- resolved 2nd pseudomonas infection 08/01 - cxr with worsening infiltrates on left 08/03 - collapse LLL 08/03 - bronchoscopy by Dr Blancas with mucous plugging found in the left-sided bronchial tree s/p removal; 08/07 - s/p bronch by Dr Lock - minimal secretions LLL, no plugs; thick secretions in trach, however 08/09 - bronch cx - pseudomonas, intermediate resistance 08/09 - changed zosyn to cefepime 08/22 - cxr - ongoing LLL infiltrates/effusion - similar to previous imaging cont saline nebs BID cont duonebs prn cont mucomyst BID unfortunately we cannot place his left side up readily & easily due to the wound vac (4) Gram-positive bacteremia: Plan: 06/2023 -- sources included: SSTI sacral decubitus ulcer Group C strep bacteremia - source thought 2nd to sacral wound Coag neg staph bacteremia - contaminant vs bacteremia Corynebacterium bacteremia (5) Transaminitis: Plan: resolved -LFT remain normal/low 08/25 (6) Severe protein-calorie malnutrition: Plan: BMI 18, diffuse sarcopenia / muscle wasting present continue PEG tube feedings - peptamen not available, thus nutrition changed product to Jevity albumin was normal at level of 4 in late July, 3.6 on 08/25 cont vit C cont MVI (7) History of DVT (deep vein thrombosis): Plan: records reviewed -- RLE DVT discovered 11/2022 Had been on Eliquis 5mg BID since 12/12/22 Thus completed 6+ months of Rx 5mg dose was ultimately reduced to 2.5mg BID (8) Pneumatosis coli: Plan: Evaluated by General surgery last admission (mid June 2023) since no surgical abdomen/peritonitis/symptoms no Rx recommended during that admission etiology of the CT findings was uncertain abdominal exam remains benign / soft day-to-day (9) History of nontraumatic rupture of cerebral aneurysm: Plan: Patient is nonverbal at baseline with chronic contractures in all 4 extremities Acquired quadriplegia CT head shows encephalomalacia and good shunt placement Ry suffered a ruptured brain aneurysm and SAH 08/2022 Had craniotomy and evacuation. skull fragment was reimplanted in November per family. Had a METAL AND P[employer]IC [employer]ATER shunt placement at [facility]. Has history of severe autonomic dysfunction / paroxysmal sympathetic hyperactivity / autonomic storm which is controlled on medications and has the potential to be confused with sepsis. 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 -resumed daily miralax 08/26 (18) Ulcer of external ear: Plan: left ear, lateral cartilage cont local wound care offload the ear as much as possible Plan dispo - numerous referrals made by social work to various SNFs; he will not be returning to [facility] after this admission updated pt's aunt at bedside on 08/21, 08/25 updated Ry's mother on 08/24 Admission and Anticipated Discharge Date Admission Date: July 18, 2023 Subjective no events nonverbal Physical Exam 2 Physical Exam: PHYSICAL EXAMINATION Last 24h vital signs reviewed, see documentation in flowsheet exam unchanged 08/27: General: eyes open HEENT: trach site cdi Lungs: CTAB anteriorly Heart: Reg no mrg Abdomen: nondistended. G-tube site mid abdomen. Sacral decubitus photo reviewed 08/27 - appears unchanged Extremities: Warm, dry, well-perfused. No extremity edema. diffuse sarcopenia present he has flexion contractures of both wrists, right elbow, bilateral lower extremities mildly flexed, high tone throughout Neuro: eyes open, gaze forward, roving, didn't track me, RUE>LUE and bilateral LE contractures, severe diffuse sarcopenia Psych: unable to assess, no agitation Results & Data Results & Data Vital Signs (Past 12 Hours) Vital Signs Temp Pulse Resp BP Pulse Ox O2 Del Method O2 Flow Rate 08/28/23 19:23 94 H 16 100 Trach Collar 08/28/23 14:29 36.8 C 75 16 108/70 100 Trach Collar 6 FiO2 08/28/23 19:23 28 08/28/23 14:29 Laboratory Results 08/26/23 05:43 08/27/23 06:14 PG Care Time/CCT Total # of Minutes Spent Total Time Spent with Patient: Total time spent is greater than 50% in coordination of care (as documented) at patient's floor/unit and/or counseling patient: Coding Level of Care Code 12226 SUB INP/OBS CARE 07/17MIN Diagnoses Decubitus ulcer of sacral region, stage 4 L89.154 Chronic osteomyelitis of sacrum M86.68 Hospital acquired PNA J18.9; Y95 Gram-positive bacteremia R78.81 Transaminitis R74.01 Severe protein-calorie malnutrition E43 History of DVT (deep vein thrombosis) Z86.718 Pneumatosis coli K63.89 History of nontraumatic rupture of cerebral aneurysm Z86.79 Autonomic dysfunction G90.9 Decubitus ulcer of calf, unstageable L89.890 Cardiomyopathy I42.9 Tracheostomy status Z93.0 Nonverbal R47.01 Quadriplegia G82.50 Sammi rash of groin B37.89 Diarrhea R19.7 Ulcer of external ear L98.499
[2023-08-29] MEDS: PIPER/TAZO 4.5g in D5W MINI-B 100 ML IV ONE (15:37)
--- NOTE | 2023-08-29 16:17 | Hospitalist Progress Note ---
Date of Service August 29, 2023 Assessment & Plan (1) Decubitus ulcer of sacral region, stage 4: Plan: s/p debridement in the OR by Dr Issa on 07/31/23 intra-op culture with MSSA, pseudomonas, providencia, and anaerobes zosyn IV had been utilized for coverage of the above pathogens Wound vac placed on 08/01 Vac changes Fri/Fri/Friday There had been exposed coccyx on examination about 2-3 weeks ago but the coccyx is now covered with tissue per wound care team Sherie Crisostomoeliana changed the wound vac to a pulsating irrigation woundvac on 08/21/23 [facility] ID added flagyl to the cefepime on 08/21/23 s/p debridement in the OR 08/[address] Dorsey; she also took a biopsy/culture of the coccyx culture - mod counts mixed skin juice sacral bone biopsy culture 08/24 - enterococcus sensi pending cef/flagyl changed to pip-tazo to cover enterococcus on 08/28. discussed with ID 08/27 - await sensi, if R to PCN can do 2 week course of linezolid or vancomycin end date for 6 weeks IV antibiotics for sacral osteo will be 09/09. Unfortunately healing remains unlikely. (2) Chronic osteomyelitis of sacrum: Plan: coccyx visible 07/31/23 see above (3) Hospital acquired PNA: Plan: LLL -- resolved 2nd pseudomonas infection 08/01 - cxr with worsening infiltrates on left 08/03 - collapse LLL 08/03 - bronchoscopy by Dr Blancas with mucous plugging found in the left-sided bronchial tree s/p removal; 08/07 - s/p bronch by Dr Lock - minimal secretions LLL, no plugs; thick secretions in trach, however 08/09 - bronch cx - pseudomonas, intermediate resistance 08/09 - changed zosyn to cefepime 08/22 - cxr - ongoing LLL infiltrates/effusion - similar to previous imaging cont saline nebs BID cont duonebs prn cont mucomyst BID unfortunately we cannot place his left side up readily & easily due to the wound vac (4) Gram-positive bacteremia: Plan: 06/2023 -- sources included: SSTI sacral decubitus ulcer Group C strep bacteremia - source thought 2nd to sacral wound Coag neg staph bacteremia - contaminant vs bacteremia Corynebacterium bacteremia (5) Transaminitis: Plan: resolved -LFT remain normal/low 08/25 (6) Severe protein-calorie malnutrition: Plan: BMI 18, diffuse sarcopenia / muscle wasting present continue PEG tube feedings - peptamen not available, thus nutrition changed product to Jevity albumin was normal at level of 4 in late July, 3.6 on 08/25 cont vit C cont MVI (7) History of DVT (deep vein thrombosis): Plan: records reviewed -- RLE DVT discovered 11/2022 Had been on Eliquis 5mg BID since 12/12/22 Thus completed 6+ months of Rx 5mg dose was ultimately reduced to 2.5mg BID (8) Pneumatosis coli: Plan: Evaluated by General surgery last admission (mid June 2023) since no surgical abdomen/peritonitis/symptoms no Rx recommended during that admission etiology of the CT findings was uncertain abdominal exam remains benign / soft day-to-day (9) History of nontraumatic rupture of cerebral aneurysm: Plan: Patient is nonverbal at baseline with chronic contractures in all 4 extremities Acquired quadri[address] head shows encephalomalacia and good shunt placement Ry suffered a ruptured brain aneurysm and SAH 08/2022 Had craniotomy and evacuation. skull fragment was reimplanted in November per family. Had a TURBINE INSPECTOR shunt placement at [facility]. Has history of severe autonomic dysfunction / paroxysmal sympathetic hyperactivity / autonomic storm which is controlled on medications and has the potential to be confused with sepsis. Cont complex regimen of meds for this issue (dantrolene, scop patch, etc). 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 after this admission updated pt's aunt at bedside on 08/21, 08/25 updated Ry's mother on 08/24 Admission and Anticipated Discharge Date Admission Date: July 18, 2023 Subjective nonverbal no events had stool today reviewed photo of vac change Physical Exam Physical Exam: PHYSICAL EXAMINATION Last 24h vital signs reviewed, see documentation in flowsheet exam unchanged 08/28: General: eyes open HEENT: trach site cdi Lungs: CTAB anteriorly, clear bilaterally today Heart: Reg no mrg Abdomen: nondistended. G-tube site mid abdomen. Sacral decubitus photo reviewed 08/28 - appears unchanged to slightly improved Extremities: Warm, dry, well-perfused. No extremity edema. diffuse sarcopenia present he has flexion contractures of both wrists, right elbow, bilateral lower extremities mildly flexed, high tone throughout Neuro: eyes open, gaze forward, roving, didn't track me, RUE>LUE and bilateral LE contractures, severe diffuse sarcopenia Psych: unable to assess, no agitation Results & Data Results & Data Vital Signs (Past 12 Hours) Vital Signs Temp Pulse Pulse Resp BP Pulse Ox O2 Del Method 08/29/23 16:03 37.3 C 99 H 6 L 105/71 99 Trach Collar 08/29/23 12:20 37.2 C 82 16 97/65 L 98 Trach Collar 08/29/23 08:07 37.2 C 99 H 16 101/69 98 Trach Collar 08/29/23 08:00 Trach Collar 08/29/23 07:56 99 H 18 98 Trach Collar O2 Flow Rate FiO2 08/29/23 16:03 08/29/23 12:20 6 08/29/23 08:07 6 08/29/23 08:00 6 08/29/23 07:56 6 28 PG Care Time/CCT Total # of Minutes Spent Total Time Spent with Patient: Total time spent is greater than 50% in coordination of care (as documented) at patient's floor/unit and/or counseling patient: Coding Level of Care Code 68586 SUB INP/OBS CARE 2/35MIN Diagnoses Decubitus ulcer of sacral region, stage 4 L89.154 Chronic osteomyelitis of sacrum M86.68 Hospital acquired PNA J18.9; Y95 Gram-positive bacteremia R78.81 Transaminitis R74.01 Severe protein-calorie malnutrition E43 History of DVT (deep vein thrombosis) Z86.718 Pneumatosis coli K63.89 History of nontraumatic rupture of cerebral aneurysm Z86.79 Autonomic dysfunction G90.9 Decubitus ulcer of calf, unstageable L89.890 Cardiomyopathy I42.9 Tracheostomy status Z93.0 Nonverbal R47.01 Quadriplegia G82.50 Sammi rash of groin B37.89 Diarrhea R19.7 Ulcer of external ear L98.499
[2023-08-29] MEDS: PIPER/TAZO 4.5g in D5W MINI-B 100 ML IV SCH (21:08)
[2023-08-30] MEDS: DAPTOmycin 525 MG in SYRINGE 0 ML IV SCH (12:52)
--- NOTE | 2023-08-30 13:14 | Hospitalist Progress Note ---
Date of Service August 30, 2023 Assessment & Plan (1) Decubitus ulcer of sacral region, stage 4: Plan: s/p debridement in the OR by Dr Issa on 07/31/23 intra-op culture with MSSA, pseudomonas, providencia, and anaerobes zosyn IV had been utilized for coverage of the above pathogens Wound vac placed on 08/01 Vac changes Fri/Fri/Friday There had been exposed coccyx on examination about 2-3 weeks ago but the coccyx is now covered with tissue per wound care team Sherie Jesus changed the wound vac to a pulsating irrigation woundvac on 08/21/23 [facility] ID added flagyl to the cefepime on 08/21/23 s/p debridement in the OR 08/[address] Dorsey; she also took a biopsy/culture of the coccyx culture - mod counts mixed skin juice sacral bone biopsy culture 08/24 - enterococcus VRE and R to PCN will change back to cefepime/metro and add short course of 2 weeks linezolid for VRE as discussed with ID - called micro lab [facility] 2 for linezolid which is sensitive end date for 6 weeks IV antibiotics for sacral osteo will be 09/09. Unfortunately healing remains unlikely. (2) Chronic osteomyelitis of sacrum: Plan: coccyx visible 07/31/23 see above (3) Hospital acquired PNA: Plan: LLL -- resolved 2nd pseudomonas infection 08/01 - cxr with worsening infiltrates on left 08/03 - collapse LLL 08/03 - bronchoscopy by Dr Blancas with mucous plugging found in the left-sided bronchial tree s/p removal; 08/07 - s/p bronch by Dr Lock - minimal secretions LLL, no plugs; thick secretions in trach, however 08/09 - bronch cx - pseudomonas, intermediate resistance 08/09 - changed zosyn to cefepime 08/22 - cxr - ongoing LLL infiltrates/effusion - similar to previous imaging cont saline nebs BID cont duonebs prn cont mucomyst BID unfortunately we cannot place his left side up readily & easily due to the wound vac (4) Gram-positive bacteremia: Plan: 06/2023 -- sources included: SSTI sacral decubitus ulcer Group C strep bacteremia - source thought 2nd to sacral wound Coag neg staph bacteremia - contaminant vs bacteremia Corynebacterium bacteremia (5) Transaminitis: Plan: resolved -LFT remain normal/low 08/25 (6) Severe protein-calorie malnutrition: Plan: BMI 18, diffuse sarcopenia / muscle wasting present continue PEG tube feedings - peptamen not available, thus nutrition changed product to Jevity albumin was normal at level of 4 in late July, 3.6 on 08/25 cont vit C cont MVI (7) History of DVT (deep vein thrombosis): Plan: records reviewed -- RLE DVT discovered 11/2022 Had been on Eliquis 5mg BID since 12/12/22 Thus completed 6+ months of Rx 5mg dose was ultimately reduced to 2.5mg BID (8) Pneumatosis coli: Plan: Evaluated by General surgery last admission (mid June 2023) since no surgical abdomen/peritonitis/symptoms no Rx recommended during that admission etiology of the CT findings was uncertain abdominal exam remains benign / soft day-to-day (9) History of nontraumatic rupture of cerebral aneurysm: Plan: Patient is nonverbal at baseline with chronic contractures in all 4 extremities Acquired quad[address] head shows encephalomalacia and good shunt placement Ry suffered a ruptured brain aneurysm and SAH 08/2022 Had craniotomy and evacuation. skull fragment was reimplanted in November per family. Had a CHIEF UNDERWRITER shunt placement at [facility]. Has history of severe autonomic dysfunction / paroxysmal sympathetic hyperactivity / autonomic storm which is controlled on medications and has the potential to be confused with sepsis. Cont complex regimen of meds for this issue (dantrolene, scop patch, etc). 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 (15) Quadriplegia: Plan: 2nd to above (16) Sammi rash of groin: Plan: cont miconazole powder TID resolved (17) Diarrhea: Plan: c diff neg on 07/18/23 and again on 08/03/23, resolved with questran (no longer on) stopping scheduled liquid APAP and magnesium supplement removed rectal tube on 08/23/23, soft BM 08/23 -resumed daily miralax 08/26 -had stool 08/28 (18) Ulcer of external ear: Plan: left ear, lateral cartilage cont local wound care offload the ear as much as possible Plan dispo - numerous referrals made by social work to various SNFs; he will not be returning to [facility] after this admission updated pt's aunt at bedside on 08/21, 08/25, 08/29 updated Ry's mother on 08/24 Admission and Anticipated Discharge Date Admission Date: July 18, 2023 Subjective no events aunt visiting in room Physical Exam Physical Exam: PHYSICAL EXAMINATION Last 24h vital signs reviewed, see documentation in flowsheet exam unchanged 08/29: General: eyes open HEENT: trach site cdi. L ear wound continues healing. no erythema or drainage Lungs: CTAB anteriorly, clear bilaterally today Heart: Reg no mrg Abdomen: nondistended. G-tube site mid abdomen. Extremities: Warm, dry, well-perfused. No extremity edema. diffuse sarcopenia present he has flexion contractures of both wrists, right elbow, bilateral lower extremities mildly flexed, high tone throughout Neuro: eyes open, gaze forward, didn't track to me, RUE>LUE and bilateral LE contractures, severe diffuse sarcopenia Psych: unable to assess, no agitation Results & Data Results & Data Vital Signs (Past 12 Hours) Vital Signs Temp Pulse Resp BP Pulse Ox O2 Del Method O2 Flow Rate 08/30/23 08:00 Trach Collar 6 08/30/23 07:19 88 18 96 Trach Collar 6 08/30/23 06:27 36.9 C 70 14 115/77 100 Trach Collar 6 FiO2 08/30/23 08:00 08/30/23 07:19 28 08/30/23 06:27 PG Care Time/CCT Total # of Minutes Spent Total Time Spent with Patient: Total time spent is greater than 50% in coordination of care (as documented) at patient's floor/unit and/or counseling patient: Coding Level of Care Code 77890 SUB INP/OBS CARE 2/35MIN Diagnoses Decubitus ulcer of sacral region, stage 4 L89.154 Chronic osteomyelitis of sacrum M86.68 Hospital acquired PNA J18.9; Y95 Gram-positive bacteremia R78.81 Transaminitis R74.01 Severe protein-calorie malnutrition E43 History of DVT (deep vein thrombosis) Z86.718 Pneumatosis coli K63.89 History of nontraumatic rupture of cerebral aneurysm Z86.79 Autonomic dysfunction G90.9 Decubitus ulcer of calf, unstageable L89.890 Cardiomyopathy I42.9 Tracheostomy status Z93.0 Nonverbal R47.01 Quadriplegia G82.50 Sammi rash of groin B37.89 Diarrhea R19.7 Ulcer of external ear L98.499
[2023-08-30] MEDS: LINEZOLID 600 MG/300 ML BAG IV SCH (13:53)
[2023-08-30] MEDS: CEFEPIME 2,000 MG in SYRINGE 0 ML IV SCH (15:46)
[2023-08-30] MEDS: metroNIDAZOLE 500 MG TAB PO SCH (20:32)
--- NOTE | 2023-08-31 14:01 | Hospitalist Progress Note ---
Date of Service August 31, 2023 Assessment & Plan (1) Decubitus ulcer of sacral region, stage 4: Plan: s/p debridement in the OR by Dr Issa on 07/31/23 intra-op culture with MSSA, pseudomonas, providencia, and anaerobes zosyn IV had been utilized for coverage of the above pathogens Wound vac placed on 08/01 Vac changes Fri/Fri/Friday There had been exposed coccyx on examination about 2-3 weeks ago but the coccyx is now covered with tissue per wound care team Sherie Jesus changed the wound vac to a pulsating irrigation woundvac on 08/21/23 [facility] ID added flagyl to the cefepime on 08/21/23 s/p debridement in the OR 08/[address] Dorsey; she also took a biopsy/culture of the coccyx culture - mod counts mixed skin juice sacral bone biopsy culture 08/24 - enterococcus VRE and R to PCN will change back to cefepime/metro and add short course of 2 weeks linezolid for VRE as discussed with ID - called micro lab [facility] 2 for linezolid which is sensitive end date for 6 weeks IV antibiotics for sacral osteo will be 09/09. Unfortunately healing remains unlikely. -no change to plan 08/30 (2) Chronic osteomyelitis of sacrum: Plan: coccyx visible 07/31/23 see above (3) Hospital acquired PNA: Plan: LLL -- resolved 2nd pseudomonas infection 08/01 - cxr with worsening infiltrates on left 08/03 - collapse LLL 08/03 - bronchoscopy by Dr Blancas with mucous plugging found in the left-sided bronchial tree s/p removal; 08/07 - s/p bronch by Dr Lock - minimal secretions LLL, no plugs; thick secretions in trach, however 08/09 - bronch cx - pseudomonas, intermediate resistance 08/09 - changed zosyn to cefepime 08/22 - cxr - ongoing LLL infiltrates/effusion - similar to previous imaging cont saline nebs BID cont duonebs prn cont mucomyst BID unfortunately we cannot place his left side up readily & easily due to the wound vac (4) Gram-positive bacteremia: Plan: 06/2023 -- sources included: SSTI sacral decubitus ulcer Group C strep bacteremia - source thought 2nd to sacral wound Coag neg staph bacteremia - contaminant vs bacteremia Corynebacterium bacteremia (5) Transaminitis: Plan: resolved -LFT remain normal/low 08/25 (6) Severe protein-calorie malnutrition: Plan: BMI 18, diffuse sarcopenia / muscle wasting present continue PEG tube feedings - peptamen not available, thus nutrition changed product to Jevity albumin was normal at level of 4 in late July, 3.6 on 08/25 cont vit C cont MVI (7) History of DVT (deep vein thrombosis): Plan: records reviewed -- RLE DVT discovered 11/2022 Had been on Eliquis 5mg BID since 12/12/22 Thus completed 6+ months of Rx 5mg dose was ultimately reduced to 2.5mg BID (8) Pneumatosis coli: Plan: Evaluated by General surgery last admission (mid June 2023) since no surgical abdomen/peritonitis/symptoms no Rx recommended during that admission etiology of the CT findings was uncertain abdominal exam remains benign / soft day-to-day (9) History of nontraumatic rupture of cerebral aneurysm: Plan: Patient is nonverbal at baseline with chronic contractures in all 4 extremities Acquired quadriplegia [address] head shows encephalomalacia and good shunt placement Ry suffered a ruptured brain aneurysm and SAH 08/2022 Had craniotomy and evacuation. skull fragment was reimplanted in November per family. 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 Has history of severe autonomic dysfunction / paroxysmal sympathetic hyperactivity / autonomic storm which is controlled on medications and has the potential to be confused with sepsis. Cont complex regimen of meds for this issue (dantrolene, scop patch, etc). 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 (15) Quadriplegia: Plan: 2nd to above (16) Sammi rash of groin: Plan: cont miconazole powder TID resolved (17) Diarrhea: Plan: c diff neg on 07/18/23 and again on 08/03/23, resolved with questran (no longer on) stopping scheduled liquid APAP and magnesium supplement removed rectal tube on 08/23/23, soft BM 08/23 -resumed daily miralax 08/26 -had stools 08/28, 08/29, 08/30 - will decrease miralax to QOD (18) Ulcer of external ear: Plan: left ear, lateral cartilage cont local wound care offload the ear as much as possible Plan dispo - numerous referrals made by social work to various SNFs; he will not be returning to [facility] after this admission updated pt's aunt at bedside on 08/21, 08/25, 08/29 updated Ry's mother on 08/24 Admission and Anticipated Discharge Date Admission Date: July 18, 2023 Subjective no events, nonverbal Physical Exam Physical Exam: PHYSICAL EXAMINATION Last 24h vital signs reviewed, see documentation in flowsheet exam unchanged 08/30: General: eyes open HEENT: trach site cdi. L ear wound continues healing. no erythema or drainage Lungs: clear to auscultation bilaterally anteriorly Heart: Reg no mrg Abdomen: soft nondistended. G-tube site mid abdomen. Extremities: Warm, dry, well-perfused. No extremity edema. diffuse sarcopenia present he has flexion contractures of both wrists, right elbow, bilateral lower extremities mildly flexed, high tone throughout Neuro: eyes open, gaze forward, roving eye movements, didn't track to me, RUE>LUE and bilateral LE contractures, severe diffuse sarcopenia Psych: unable to assess, no agitation Results & Data Results & Data Vital Signs (Past 12 Hours) Vital Signs Pulse Resp Pulse Ox O2 Del Method O2 Flow Rate FiO2 08/31/23 07:36 Trach Collar 6 08/31/23 07:25 74 20 100 Trach Collar 6 28 PG Care Time/CCT Total # of Minutes Spent Total Time Spent with Patient: Total time spent is greater than 50% in coordination of care (as documented) at patient's floor/unit and/or counseling patient: Coding Level of Care Code 48872 SUB INP/OBS CARE 25MIN Diagnoses Decubitus ulcer of sacral region, stage 4 L89.154 Chronic osteomyelitis of sacrum M86.68 Hospital acquired PNA J18.9; Y95 Gram-positive bacteremia R78.81 Transaminitis R74.01 Severe protein-calorie malnutrition E43 History of DVT (deep vein thrombosis) Z86.718 Pneumatosis coli K63.89 History of nontraumatic rupture of cerebral aneurysm Z86.79 Autonomic dysfunction G90.9 Decubitus ulcer of calf, unstageable L89.890 Cardiomyopathy I42.9 Tracheostomy status Z93.0 Nonverbal R47.01 Quadriplegia G82.50 Sammi rash of groin B37.89 Diarrhea R19.7 Ulcer of external ear L98.499
[2023-09-01 06:31] LABS: Basophils # (auto) 0.05 K/uL (0.00-0.20); Basophils % (auto) 0.5 %; Eosinophils # (auto) 0.39 K/uL (0.00-0.50); Eosinophils % (auto) 3.9 %; Hematocrit (blood only) 30.9 % (42.0-52.0); Hemoglobin 9.7 g/dl (14.0-18.0); Immature Granulocytes # (auto) 0.05 K/uL (0.01-0.20); Immature Granulocytes % (auto) 0.5 %; Lymphocytes # (auto) 1.61 K/uL (1.20-3.40); Lymphocytes % (auto) 16.3 %; Mean Corpuscular Hemoglobin 29.2 pg (25.0-34.0); Mean Corpuscular Hgb Conc 31.4 g/dL (32.0-36.0); Mean Corpuscular Volume 93.1 fL (80.0-100.0); Monocytes # (auto) 0.82 K/uL (0.11-0.59); Monocytes % (auto) 8.3 %; Neutrophils # (auto) 6.98 K/uL (1.40-6.50); Neutrophils % (auto) 70.5 %; Platelet Count 290 K/uL (130-400); RDW Coefficient of Variation 14.5 % (11.5-14.5); RDW Standard Deviation 49.1 fL (36.4-46.3); Red Blood Count 3.32 M/uL (4.70-6.10)
[2023-09-01 06:47] LABS: Alanine Aminotransferase 7 U/L (7-52); Albumin Globulin Ratio 1.2 (0.9-2); Albumin Level 3.8 gm/dl (3.4-5.0); Alkaline Phosphatase 64 U/L (34-104); Anion Gap 7 (3-11); Aspartate Aminotransferase 10 U/L (13-39); BUN Creatinine Ratio 51.3 (10-20); Bilirubin,Total 0.3 mg/dl (0.2-1.0); Blood Urea Nitrogen 20 mg/dl (6-23); C Reactive Protein 1.48 mg/dl (0-0.5); Calcium 9.1 mg/dl (8.6-10.3); Carbon Dioxide 30 mmol/L (21-32); Chloride 102 mmol/L (98-107); Est GFR (African American) > 150.0 ml/min; Est GFR (Non-African American) > 150.0 ml/min; Globulin 3.2 gm/dl (2.5-4.0); Glucose 97 mg/dl (70-99(Fasting)); Potassium 4.1 mmol/L (3.5-5.1); Sodium 139 mmol/L (136-145)
[2023-09-01 09:43] LABS: Magnesium 1.9 mg/dl (1.7-2.4)
--- NOTE | 2023-09-01 16:03 | Hospitalist Progress Note ---
Date of Service September 01, 2023 Assessment & Plan (1) Decubitus ulcer of sacral region, stage 4: Plan: s/p debridement in the OR by Dr Issa on 07/31/23 intra-op culture with MSSA, pseudomonas, providencia, and anaerobes zosyn IV had been utilized for coverage of the above pathogens Wound vac placed on 08/01 There had been exposed coccyx on examination prior to vac, but the coccyx is now covered with tissue per wound care team Very slow if any progress with healing so pulsating irrigation woundvac started on 08/21/23 [facility] ID added flagyl to the cefepime on 08/21/23 s/p debridement in the OR 08/[address] Dorsey; she also took a biopsy/culture of the coccyx sacral bone biopsy culture 08/24 - enterococcus VRE and R to PCN. S to daptomycin and linezolid continue cefepime/metro and added short course of 2 weeks linezolid for VRE as discussed with ID end date for 6 weeks IV antibiotics for sacral osteo will be 09/09. Unfortunately healing remains unlikely. Would not do repeated bouts of prolonged IV antibiotics for chronic osteo, will only compound the problems with increasing antibiotic resistance. Short courses would be appropriate for acute infections. -continue pulsed vac, being changed and -discussed with wound nurse Sherie Jesus 08/31 unfortunately has not seen accelerated healing with this different vac (2) Chronic osteomyelitis of sacrum: Plan: coccyx visible 07/31/23 see above (3) Hospital acquired PNA: Plan: LLL -- resolved 2nd pseudomonas infection 08/01 - cxr with worsening infiltrates on left 08/03 - LLL collapse, bronchoscopy by Dr Blancas with mucous plugging found in the left-sided bronchial tree s/p removal; 08/07 - s/p bronch by Dr Lock - minimal secretions LLL, no plugs; thick secretions in trach, however 08/09 - changed zosyn to cefepime for bronch cx - pseudomonas, intermediate resistance 08/22 - cxr - ongoing LLL infiltrates/effusion - similar to previous imaging cont saline nebs BID cont duonebs prn cont mucomyst BID unfortunately we cannot place his left side up readily & easily due to the wound vac has remained stable on trach mask sats high 90s on 6L this past week (4) Gram-positive bacteremia: Plan: 06/2023 -- sources included: SSTI sacral decubitus ulcer Group C strep bacteremia - source thought 2nd to sacral wound Coag neg staph bacteremia - contaminant vs bacteremia Corynebacterium bacteremia (5) Transaminitis: Plan: resolved -LFT remain normal/low 08/31 (6) Severe protein-calorie malnutrition: Plan: BMI 18, diffuse sarcopenia / muscle wasting present continue PEG tube feedings - peptamen not available, thus nutrition changed product to Jevity albumin has been normal, 3.8 on 08/31 cont vit C cont MVI (7) History of DVT (deep vein thrombosis): Plan: records reviewed -- RLE DVT discovered 11/2022, completed >> 6 mo apixaban 5 bid continue apixaban 2.5mg BID (8) Pneumatosis coli: Plan: Evaluated by General surgery last admission (mid June 2023) since no surgical abdomen/peritonitis/symptoms no Rx recommended during that admission etiology of the CT findings was uncertain abdominal exam remains benign / soft day-to-day (9) History of nontraumatic rupture of cerebral aneurysm: Plan: Patient is nonverbal at baseline with chronic contractures in all 4 extremities Acquired quadri[address] head shows encephalomalacia and good shunt placement Ry suffered a ruptured brain aneurysm and SAH 08/2022 Had craniotomy and evacuation. skull fragment was reimplanted in November per family. 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 Has history of severe autonomic dysfunction / paroxysmal sympathetic hyperactivity / autonomic storm which is controlled on medications and has the potential to be confused with sepsis. Cont complex regimen of meds for this issue (dantrolene, scop patch, etc). 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 (15) Quadriplegia: Plan: 2nd to above (16) Sammi rash of groin: Plan: cont miconazole powder TID resolved (17) Diarrhea: Plan: c diff neg on 07/18/23 and again on 08/03/23, resolved with questran (no longer on) stopping scheduled liquid APAP and magnesium supplement removed rectal tube on 08/23/23, soft BM 08/23 -resumed daily miralax 08/26 -had stools 08/28, 08/29, 08/30, 08/31 - decreased miralax to QOD (18) Ulcer of external ear: Plan: left ear, lateral cartilage cont local wound care offload the ear as much as possible Plan Weekly labs qMonday Reviewed 08/31 - CBC unchanged, BMP unchanged, mag normal, LFTs remain low, albumin wnl. CRP has trended down, ESR mildly elevated dispo - numerous referrals made by social work to various SNFs updated pt's aunt at bedside on 08/21, 08/25, 08/29 updated Ry's mother on 08/24 Admission and Anticipated Discharge Date Admission Date: July 18, 2023 Subjective No events Getting bed bath Discussed with wound nurse today - see below Physical Exam 2 Physical Exam: PHYSICAL EXAMINATION Last 24h vital signs reviewed, see documentation in flowsheet exam unchanged 08/31: General: eyes open, anicteric HEENT: trach site cdi. L ear wound continues slowly healing. no erythema or drainage. R skull deformity unchanged. Lungs: clear to auscultation bilaterally anteriorly Heart: Reg no mrg Abdomen: soft nondistended. G-tube site mid abdomen. Extremities: Warm, dry, well-perfused. No extremity edema. diffuse sarcopenia present he has flexion contractures of both wrists, right elbow, bilateral lower extremities more extended right now, high tone throughout Neuro: eyes open, gaze forward, roving eye movements, didn't track to me, RUE>LUE and bilateral LE contractures, severe diffuse sarcopenia Psych: unable to assess, no agitation Results & Data Results & Data Vital Signs (Past 12 Hours) Vital Signs Temp Pulse Pulse Pulse Resp BP BP 09/01/23 15:10 36.5 C 85 16 108/68 09/01/23 11:53 36.6 C 71 16 105/68 09/01/23 09:43 09/01/23 08:16 87 16 03/11/24 07:27 37.5 C 87 16 108/72 Pulse Ox O2 Del Method O2 Flow Rate FiO2 09/01/23 15:10 100 Trach Collar 7 09/01/23 11:53 100 Trach Collar 6 09/01/23 09:43 Trach Collar 7 28 09/01/23 08:16 99 Trach Collar 6 28 09/01/23 07:27 97 Trach Collar 6 Laboratory Results 09/01/23 05:55 09/01/23 05:55 PG Care Time/CCT Total # of Minutes Spent Total Time Spent with Patient: Total time spent is greater than 50% in coordination of care (as documented) at patient's floor/unit and/or counseling patient: Coding Level of Care Code 90336 SUB INP/OBS CARE 2/35MIN Diagnoses Decubitus ulcer of sacral region, stage 4 L89.154 Chronic osteomyelitis of sacrum M86.68 Hospital acquired PNA J18.9; Y95 Gram-positive bacteremia R78.81 Transaminitis R74.01 Severe protein-calorie malnutrition E43 History of DVT (deep vein thrombosis) Z86.718 Pneumatosis coli K63.89 History of nontraumatic rupture of cerebral aneurysm Z86.79 Autonomic dysfunction G90.9 Decubitus ulcer of calf, unstageable L89.890 Cardiomyopathy I42.9 Tracheostomy status Z93.0 Nonverbal R47.01 Quadriplegia G82.50 Sammi rash of groin B37.89 Diarrhea R19.7 Ulcer of external ear L98.499
[2023-09-02 07:17] LABS: Hematocrit (blood only) 31.2 % (42.0-52.0); Mean Corpuscular Hemoglobin 30.3 pg (25.0-34.0); Mean Corpuscular Hgb Conc 32.1 g/dL (32.0-36.0); Mean Corpuscular Volume 94.5 fL (80.0-100.0); Mean Platelet Volume 11.6 fL (9.4-12.4); Platelet Count 274 K/uL (130-400); RDW Coefficient of Variation 14.5 % (11.5-14.5); White Blood Count 7.38 K/ul (4.8-10.8)
[2023-09-02 07:35] LABS: Alanine Aminotransferase 8 U/L (7-52); Albumin Globulin Ratio 1.2 (0.9-2); Albumin Level 3.8 gm/dl (3.4-5.0); Alkaline Phosphatase 65 U/L (34-104); Anion Gap 7 (3-11); Aspartate Aminotransferase 10 U/L (13-39); Bilirubin,Total 0.4 mg/dl (0.2-1.0); Blood Urea Nitrogen 18 mg/dl (6-23); Calcium 9.2 mg/dl (8.6-10.3); Carbon Dioxide 30 mmol/L (21-32); Chloride 102 mmol/L (98-107); Creatinine Clr Calc Pharmacy 216.7 ml/min; Est GFR (African American) > 150.0 ml/min; Est GFR (Non-African American) > 150.0 ml/min; Globulin 3.3 gm/dl (2.5-4.0); Glucose 134 mg/dl (70-99(Fasting)); Potassium 3.8 mmol/L (3.5-5.1); Sodium 139 mmol/L (136-145); Total Protein 7.1 gm/dl (6.0-8.3)
[2023-09-02] MEDS: POLYETHYLENE (MIRALAX) 17 GM PACK GT SCH (08:25)
--- NOTE | 2023-09-02 17:46 | Hospitalist Progress Note ---
Date of Service September 02, 2023 Assessment & Plan (1) Decubitus ulcer of sacral region, stage 4: Plan: s/p debridement in the OR by Dr Issa on 07/31/23 intra-op culture with MSSA, pseudomonas, providencia, and anaerobes zosyn IV had been utilized for coverage of the above pathogens Wound vac placed on 08/01 Wound vac then changed to a pulsating irrigation woundvac on 08/21/23 There had been exposed coccyx on examination 3+ weeks ago but the coccyx is now covered with tissue per wound care team [facility] ID added flagyl to his cefepime on 08/21/23 due to lack of improvement and worsening appearance of his ulcer he underwent repeat debridement in the OR today by Dr Dorsey on 08/25/23 biopsy/culture of the coccyx done on 08/24 - grew VRE linezolid added on 08/30/23 ID advising 2 week course of linezolid otherwise remains on cefepime/flagyl appreciate gen surg assistance appreciate wound care assistance appreciate nutrition assistance appreciate ID assistance of note - previous rectal tube placed 08/03/23 and removed on 08/23/23 by report not much soiling from stool of his wound thankfully (2) Chronic osteomyelitis of sacrum: Plan: coccyx cont IV cefepime flagyl added by ID 08/21/23 linezolid added 08/30/23 2nd to VRE growing from bone bx (taken 08/25/23) 6 weeks of IV abx had been recommended by ID originally original course --> 07/31/23 09/10/23 see #1 above (3) Hospital acquired PNA: Plan: LLL -- resolved 2nd pseudomonas infection 08/01 - cxr with worsening infiltrates on left 08/03 - collapse LLL 08/03 - bronchoscopy by Dr Blancas with mucous plugging found in the left-sided bronchial tree s/p removal; 08/07 - s/p bronch by Dr Kadri - minimal secretions LLL, no plugs; thick secretions in trach, however 08/09 - bronch cx - pseudomonas, intermediate resistance 08/09 - changed zosyn to cefepime 08/22 - cxr - ongoing LLL infiltrates/effusion - similar to previous imaging cont saline nebs BID cont duonebs prn cont mucomyst BID unfortunately we cannot place his left side up readily & easily due to the wound vac (4) Gram-positive bacteremia: Plan: 06/2023 -- sources included: SSTI sacral decubitus ulcer Group C strep bacteremia - source thought 2nd to sacral wound Coag neg staph bacteremia - contaminant vs bacteremia Corynebacterium bacteremia (5) Transaminitis: Plan: resolved (6) Severe protein-calorie malnutrition: Plan: BMI 19, diffuse sarcopenia / muscle wasting present continue PEG tube feedings - peptamen not available, thus nutrition changed product to Jevity albumin was normal at level of 4 in late July now 3.8 cont vit C cont MVI (7) History of DVT (deep vein thrombosis): Plan: records reviewed -- RLE DVT discovered 11/2022 Had been on Eliquis 5mg BID since 12/12/22 Thus completed 6+ months of Rx 5mg dose was ultimately reduced to 2.5mg BID (8) Pneumatosis coli: Plan: Evaluated by General surgery last admission (mid June 2023) since no surgical abdomen/peritonitis/symptoms no Rx recommended during that admission etiology of the CT findings was uncertain abdominal exam remains benign / soft day-to-day (9) History of nontraumatic rupture of cerebral aneurysm: Plan: Patient is nonverbal at baseline with chronic contractures in all 4 extremities Acquired quadri[address] head shows encephalomalacia and good shunt placement Ry suffered a ruptured brain aneurysm and SAH 08/2022 Had craniotomy and evacuation. skull fragment was reimplanted in November per family. 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 Has history of severe autonomic dysfunction / paroxysmal sympathetic hyperactivity / autonomic storm which is controlled on medications and has the potential to be confused with sepsis. 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 (15) Quadriplegia: Plan: 2nd to above (16) Sammi rash of groin: Plan: cont miconazole powder TID resolved (17) Ulcer of external ear: Plan: left ear, lateral cartilage cont local wound care offload the ear as much as possible Plan dispo - numerous referrals made by social work to various SNFs; he will not be returning to [facility] after this admission no luck to date of any facility available or willing to take him Admission and Anticipated Discharge Date Admission Date: July 18, 2023 Subjective no events overnight I spoke directly with Sherie Jesus from Wound Care - she was happy with how his sacral ulcer looked today during wound vac exchange - some improvement (albeit limited) was noted Review of Systems Review of Systems: Unobtainable due to cognitive status Physical Exam Physical Exam: gen - NAD, sleeping head - deformity right side from prior craniotomy - unchanged neck - no JVD; trach in place - clean L ear - tiny ulceration mid lateral pinnae - unchanged, no cellulitis or drainage heart - RRR, s1 s2, no murmur lungs - CTA b/l; no rales or wheeze; airation wnl including on left abd - soft NT ND BS+; PEG tube site clean ext - trace edema, pulses 2+ b/l neuro - contractures all extremities; generalized muscle wasting present Results & Data Results & Data Vital Signs (Past 12 Hours) Vital Signs Temp Pulse Resp BP Pulse Ox O2 Del Method O2 Flow Rate 09/02/23 15:04 36.6 C 78 16 104/68 99 Room Air 09/02/23 07:40 76 18 98 Trach Collar 09/02/23 07:40 Trach Collar 6 09/02/23 07:23 37.1 C 74 16 116/70 99 Trach Collar 6 FiO2 09/02/23 15:04 09/02/23 07:40 28 09/02/23 07:40 09/02/23 07:23 Laboratory Results Laboratory Results - last 24 hr 03/12/24 06:56 WBC 7.38 RBC 3.30 L Hgb 10.0 L Hct 31.2 L MCV 94.5 MCH 30.3 MCHC 32.1 RDW Std Deviation 50.0 H RDW Coeff of Dario 14.5 Plt Count 274 MPV 11.6 Sodium 139 Potassium 3.8 Chloride 102 Carbon Dioxide 30 Anion Gap 7 BUN 18 Creatinine 0.36 L Est Cr Clr Drug Dosing 216.7 Est GFR ( Amer) > 150.0 Est GFR (Non-Af Amer) > 150.0 BUN/Creatinine Ratio 50.0 H Glucose 134 H Calcium 9.2 Total Bilirubin 0.4 AST 10 L ALT 8 Alkaline Phosphatase 65 Total Protein 7.1 Albumin 3.8 Globulin 3.3 Albumin/Globulin Ratio 1.2 PG Care Time/CCT Total # of Minutes Spent Total Time Spent with Patient: Total time spent is greater than 50% in coordination of care (as documented) at patient's floor/unit and/or counseling patient: Coding Level of Care Code 20594 SUB INP/OBS CARE 25MIN Diagnoses Decubitus ulcer of sacral region, stage 4 L89.154 Chronic osteomyelitis of sacrum M86.68 Hospital acquired PNA J18.9; Y95 Gram-positive bacteremia R78.81 Transaminitis R74.01 Severe protein-calorie malnutrition E43 History of DVT (deep vein thrombosis) Z86.718 Pneumatosis coli K63.89 History of nontraumatic rupture of cerebral aneurysm Z86.79 Autonomic dysfunction G90.9 Decubitus ulcer of calf, unstageable L89.890 Cardiomyopathy I42.9 Tracheostomy status Z93.0 Nonverbal R47.01 Quadriplegia G82.50 Sammi rash of groin B37.89 Ulcer of external ear L98.499
--- NOTE | 2023-09-03 20:32 | Hospitalist Progress Note ---
Date of Service September 03, 2023 Assessment & Plan (1) Decubitus ulcer of sacral region, stage 4: Plan: s/p debridement in the OR by Dr Issa on 07/31/23 intra-op culture with MSSA, pseudomonas, providencia, and anaerobes zosyn IV had been utilized for coverage of the above pathogens Wound vac placed on 08/01 Wound vac then changed to a pulsating irrigation woundvac on 08/21/23 There had been exposed coccyx on examination 3+ weeks ago but the coccyx is now covered with tissue per wound care team [facility] ID added flagyl to his cefepime on 08/21/23 due to lack of improvement and worsening appearance of his ulcer he underwent repeat debridement in the OR today by Dr Dorsey on 08/25/23 biopsy/culture of the coccyx done on 08/24 - grew VRE linezolid added on 08/30/23 -- ID advised 2 week course of linezolid, thus day #5 today otherwise remains on cefepime/flagyl appreciate gen surg assistance appreciate wound care assistance appreciate nutrition assistance appreciate ID assistance of note - previous rectal tube placed 08/03/23 and removed on 08/23/23 by report not much soiling from stool of his wound thankfully (2) Chronic osteomyelitis of sacrum: Plan: coccyx cont IV cefepime flagyl added by ID 08/21/23 linezolid added 08/30/23 2nd to VRE growing from bone bx (taken 08/25/23) 6 weeks of IV abx had been recommended by ID originally original course --> 07/31/23 09/10/23 see #1 above (3) Hospital acquired PNA: Plan: LLL -- resolved 2nd pseudomonas infection 08/01 - cxr with worsening infiltrates on left 08/03 - collapse LLL 08/03 - bronchoscopy by Dr Blancas with mucous plugging found in the left-sided bronchial tree s/p removal; 08/07 - s/p bronch by Dr Lock - minimal secretions LLL, no plugs; thick secretions in trach, however 08/09 - bronch cx - pseudomonas, intermediate resistance 08/09 - changed zosyn to cefepime 08/22 - cxr - ongoing LLL infiltrates/effusion - similar to previous imaging cont saline nebs BID cont duonebs prn cont mucomyst BID (4) Gram-positive bacteremia: Plan: 06/2023 -- sources included: SSTI sacral decubitus ulcer Group C strep bacteremia - source thought 2nd to sacral wound Coag neg staph bacteremia - contaminant vs bacteremia Corynebacterium bacteremia (5) Transaminitis: Plan: resolved LFTs just a few days ago wnl (6) Severe protein-calorie malnutrition: Plan: BMI 19, diffuse sarcopenia / muscle wasting present continue PEG tube feedings - peptamen not available, thus nutrition changed product to Jevity albumin was normal at level of 4 in late July now 3.8 cont vit C cont MVI (7) History of DVT (deep vein thrombosis): Plan: records reviewed -- RLE DVT discovered 11/2022 Had been on Eliquis 5mg BID since 12/12/22 Thus completed 6+ months of Rx 5mg dose was ultimately reduced to 2.5mg BID (8) Pneumatosis coli: Plan: Evaluated by General surgery last admission (mid June 2023) since no surgical abdomen/peritonitis/symptoms no Rx recommended during that admission etiology of the CT findings was uncertain abdominal exam remains benign / soft day-to-day (9) History of nontraumatic rupture of cerebral aneurysm: Plan: Patient is nonverbal at baseline with chronic contractures in all 4 extremities Acquired quadriple[address] head shows encephalomalacia and good shunt placement Ry suffered a ruptured brain aneurysm and SAH 08/2022 Had craniotomy and evacuation. skull fragment was reimplanted in November per family. 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 Has history of severe autonomic dysfunction / paroxysmal sympathetic hyperactivity / autonomic storm which is controlled on medications and has the potential to be confused with sepsis. 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 (15) Quadriplegia: Plan: 2nd to above (16) Sammi rash of groin: Plan: cont miconazole powder TID resolved (17) Ulcer of external ear: Plan: left ear, lateral cartilage cont local wound care offload the ear as much as possible Plan dispo - numerous referrals made by social work to various SNFs; he will not be returning to [facility] after this admission no luck to date of any facility available or willing to take him his insurance apparently provided a list of facilities that often take trach patients appreciate SW assistance Admission and Anticipated Discharge Date Admission Date: July 18, 2023 Subjective no events overnight tolerating tube feedings +stools woundvac in place Review of Systems Review of Systems: Unobtainable due to cognitive status (nonverbal) Physical Exam Physical Exam: gen - NAD, eyes open, baseline brainstem reflexes (grimace, eye blinking, etc) head - deformity right side from prior craniotomy - unchanged left ear - tiny ulceration lateral mid-pinnae - unchanged neck - no JVD; trach in place - clean heart - RRR, s1 s2, no murmur lungs - CTA b/l; no rales or wheeze; airation wnl abd - soft NT ND BS+; PEG tube site clean ext - trace edema, pulses 2+ b/l neuro - contractures all extremities; generalized muscle wasting present Results & Data Results & Data Vital Signs (Past 12 Hours) Vital Signs Temp Pulse Resp BP Pulse Ox O2 Del Method O2 Flow Rate 09/03/23 18:39 78 16 98 Trach Collar 7 09/03/23 16:22 36.7 C 89 16 119/70 98 Oxymask, Trach Collar 6 09/03/23 16:20 36.8 C 79 16 115/72 97 Trach Collar FiO2 09/03/23 18:39 28 09/03/23 16:22 09/03/23 16:20 PG Care Time/CCT Total # of Minutes Spent Total Time Spent with Patient: Total time spent is greater than 50% in coordination of care (as documented) at patient's floor/unit and/or counseling patient: Coding Level of Care Code 94880 SUB INP/OBS CARE Diagnoses Decubitus ulcer of sacral region, stage 4 L89.154 Chronic osteomyelitis of sacrum M86.68 Hospital acquired PNA J18.9; Y95 Gram-positive bacteremia R78.81 Transaminitis R74.01 Severe protein-calorie malnutrition E43 History of DVT (deep vein thrombosis) Z86.718 Pneumatosis coli K63.89 History of nontraumatic rupture of cerebral aneurysm Z86.79 Autonomic dysfunction G90.9 Decubitus ulcer of calf, unstageable L89.890 Cardiomyopathy I42.9 Tracheostomy status Z93.0 Nonverbal R47.01 Quadriplegia G82.50 Sammi rash of groin B37.89 Ulcer of external ear L98.499
--- NOTE | 2023-09-04 20:58 | Hospitalist Progress Note ---
Date of Service September 04, 2023 Assessment & Plan (1) Decubitus ulcer of sacral region, stage 4: Plan: s/p debridement in the OR by Dr Issa on 07/31/23 intra-op culture with MSSA, pseudomonas, providencia, and anaerobes zosyn IV had been utilized for coverage of the above pathogens Wound vac placed on 08/01 Wound vac then changed to a pulsating irrigation woundvac on 08/21/23 There had been exposed coccyx on examination 3+ weeks ago but the coccyx is now covered with tissue per wound care team [facility] ID added flagyl to his cefepime on 08/21/23 due to lack of improvement and worsening appearance of his ulcer he underwent repeat debridement in the OR today by Dr Dorsey on 08/25/23 biopsy/culture of the coccyx done on 08/24 - grew VRE linezolid added on 08/30/23 -- ID advised 2 week course of linezolid, thus day #6 today otherwise remains on cefepime/flagyl appreciate gen surg assistance appreciate wound care assistance appreciate nutrition assistance appreciate ID assistance of note - previous rectal tube placed 08/03/23 and removed on 08/23/23 no issues with his stools (2) Chronic osteomyelitis of sacrum: Plan: coccyx cont IV cefepime flagyl added by ID 08/21/23 linezolid added 08/30/23 2nd to VRE growing from bone bx (bx taken 08/25/23) - day #6 of linezolid 6 weeks of IV abx had been recommended by ID originally original course --> 07/31/23 09/10/23 see #1 above (3) Hospital acquired PNA: Plan: LLL -- resolved 2nd pseudomonas infection 08/01 - cxr with worsening infiltrates on left 08/03 - collapse LLL 08/03 - bronchoscopy by Dr Blancas with mucous plugging found in the left-sided bronchial tree s/p removal; 08/07 - s/p bronch by Dr Lock - minimal secretions LLL, no plugs; thick secretions in trach, however 08/09 - bronch cx - pseudomonas, intermediate resistance 08/09 - changed zosyn to cefepime 08/22 - cxr - ongoing LLL infiltrates/effusion - similar to previous imaging cont saline nebs BID cont duonebs prn cont mucomyst BID (4) Gram-positive bacteremia: Plan: 06/2023 -- sources included: SSTI sacral decubitus ulcer Group C strep bacteremia - source thought 2nd to sacral wound Coag neg staph bacteremia - contaminant vs bacteremia Corynebacterium bacteremia (5) Transaminitis: Plan: resolved LFTs just a few days ago wnl (6) Severe protein-calorie malnutrition: Plan: BMI 19, diffuse sarcopenia / muscle wasting present continue PEG tube feedings - peptamen not available, thus nutrition changed product to Jevity albumin was normal at level of 4 in late July now 3.8 cont vit C cont MVI (7) History of DVT (deep vein thrombosis): Plan: records reviewed -- RLE DVT discovered 11/2022 Had been on Eliquis 5mg BID since 12/12/22 Thus completed 6+ months of Rx 5mg dose was ultimately reduced to 2.5mg BID (8) Pneumatosis coli: Plan: Evaluated by General surgery last admission (mid June 2023) since no surgical abdomen/peritonitis/symptoms no Rx recommended during that admission etiology of the CT findings was uncertain abdominal exam remains benign / soft day-to-day (9) History of nontraumatic rupture of cerebral aneurysm: Plan: Patient is nonverbal at baseline with chronic contractures in all 4 extremities Acquired quadriple[address] head shows encephalomalacia and good shunt placement Ry suffered a ruptured brain aneurysm and SAH 08/2022 Had craniotomy and evacuation. skull fragment was reimplanted in November per family. 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 Has history of severe autonomic dysfunction / paroxysmal sympathetic hyperactivity / autonomic storm which is controlled on medications and has the potential to be confused with sepsis. 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 (15) Quadriplegia: Plan: 2nd to above (16) Sammi rash of groin: Plan: cont miconazole powder (17) Ulcer of external ear: Plan: left ear, lateral cartilage cont local wound care offload the ear as much as possible Plan dispo - numerous referrals made by social work to various SNFs; he will not be returning to [facility] after this admission no luck to date of any facility available or willing to take him his insurance apparently provided a list of facilities that often take trach patients appreciate SW assistance updated pt's mother briefly by phone this evening Admission and Anticipated Discharge Date Admission Date: July 18, 2023 Subjective no events overnight +stool about 1x/day o2 sats stable on 6 L O2 Review of Systems Review of Systems: Unobtainable due to cognitive status Physical Exam Physical Exam: gen - NAD, sleeping head - deformity right side from prior craniotomy - unchanged neck - no JVD; trach in place - clean heart - RRR, s1 s2, no murmur lungs - CTA b/l; no rales or wheeze abd - soft NT ND BS+; PEG tube site clean ext - no edema b/l, pulses 2+ b/l neuro - contractures all extremities; generalized muscle wasting present Results & Data Results & Data Vital Signs (Past 12 Hours) Vital Signs Temp Pulse Pulse Resp BP Pulse Ox O2 Del Method 09/04/23 19:46 36.6 C 60 16 103/68 100 Trach Collar 09/04/23 19:37 82 18 96 Trach Collar 09/04/23 15:29 36.7 C 81 16 106/70 95 Room Air O2 Flow Rate FiO2 09/04/23 19:46 6 09/04/23 19:37 6 28 09/04/23 15:29 PG Care Time/CCT Total # of Minutes Spent Total Time Spent with Patient: Total time spent is greater than 50% in coordination of care (as documented) at patient's floor/unit and/or counseling patient: Coding Level of Care Code 91481 SUB INP/OBS CARE Diagnoses Decubitus ulcer of sacral region, stage 4 L89.154 Chronic osteomyelitis of sacrum M86.68 Hospital acquired PNA J18.9; Y95 Gram-positive bacteremia R78.81 Transaminitis R74.01 Severe protein-calorie malnutrition E43 History of DVT (deep vein thrombosis) Z86.718 Pneumatosis coli K63.89 History of nontraumatic rupture of cerebral aneurysm Z86.79 Autonomic dysfunction G90.9 Decubitus ulcer of calf, unstageable L89.890 Cardiomyopathy I42.9 Tracheostomy status Z93.0 Nonverbal R47.01 Quadriplegia G82.50 Sammi rash of groin B37.89 Ulcer of external ear L98.499
[2023-09-05] MEDS: FLUCONAZOLE 100 MG TAB PO SCH (11:04)
--- NOTE | 2023-09-05 20:11 | Hospitalist Progress Note ---
Date of Service September 05, 2023 Assessment & Plan (1) Decubitus ulcer of sacral region, stage 4: Plan: s/p debridement in the OR by Dr Issa on 07/31/23 intra-op culture with MSSA, pseudomonas, providencia, and anaerobes zosyn IV had been utilized for coverage of the above pathogens Wound vac placed on 08/01 Wound vac then changed to a pulsating irrigation woundvac on 08/21/23 There had been exposed coccyx on examination 3+ weeks ago but the coccyx is now covered with tissue per wound care team [facility] ID added flagyl to his cefepime on 08/21/23 due to lack of improvement and worsening appearance of his ulcer he underwent repeat debridement in the OR today by Dr Dorsey on 08/25/23 biopsy/culture of the coccyx done on 08/24 - grew VRE linezolid added on 08/30/23 -- ID advised 2 week course of linezolid, thus day #7 today otherwise remains on cefepime/flagyl appreciate gen surg assistance appreciate wound care assistance appreciate nutrition assistance appreciate ID assistance of note - previous rectal tube placed 08/03/23 and removed on 08/23/23 no issues with his stools (2) Chronic osteomyelitis of sacrum: Plan: coccyx cont IV cefepime flagyl added by ID 08/21/23 linezolid added 08/30/23 2nd to VRE growing from bone bx (bx taken 08/25/23) - day #6 of linezolid 6 weeks of IV abx had been recommended by ID originally original course --> 07/31/23 09/10/23 see #1 above (3) Hospital acquired PNA: Plan: LLL -- resolved 2nd pseudomonas infection 08/01 - cxr with worsening infiltrates on left 08/03 - collapse LLL 08/03 - bronchoscopy by Dr Blancas with mucous plugging found in the left-sided bronchial tree s/p removal; 08/07 - s/p bronch by Dr Lock - minimal secretions LLL, no plugs; thick secretions in trach, however 08/09 - bronch cx - pseudomonas, intermediate resistance 08/09 - changed zosyn to cefepime 08/22 - cxr - ongoing LLL infiltrates/effusion - similar to previous imaging cont saline nebs BID cont duonebs prn cont mucomyst BID (4) Gram-positive bacteremia: Plan: 06/2023 -- sources included: SSTI sacral decubitus ulcer Group C strep bacteremia - source thought 2nd to sacral wound Coag neg staph bacteremia - contaminant vs bacteremia Corynebacterium bacteremia (5) Transaminitis: Plan: resolved LFTs just a few days ago wnl (6) Severe protein-calorie malnutrition: Plan: improving slowly BMI now 20 (had been 18-19) still with diffuse sarcopenia / muscle wasting present most recent nutrition recommendations: (7) History of DVT (deep vein thrombosis): Plan: records reviewed -- RLE DVT discovered 11/2022 Had been on Eliquis 5mg BID since 12/12/22 Thus completed 6+ months of Rx 5mg dose was ultimately reduced to 2.5mg BID (8) Pneumatosis coli: Plan: Evaluated by General surgery last admission (mid June 2023) since no surgical abdomen/peritonitis/symptoms no Rx recommended during that admission etiology of the CT findings was uncertain abdominal exam remains benign / soft day-to-day (9) History of nontraumatic rupture of cerebral aneurysm: Plan: Patient is nonverbal at baseline with chronic contractures in all 4 extremities Acquired quad[address] head shows encephalomalacia and good shunt placement Ry suffered a ruptured brain aneurysm and SAH 08/2022 Had craniotomy and evacuation. skull fragment was reimplanted in November per family. 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 Has history of severe autonomic dysfunction / paroxysmal sympathetic hyperactivity / autonomic storm which is controlled on medications and has the potential to be confused with sepsis. 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 (15) Quadriplegia: Plan: 2nd to above (16) Ulcer of external ear: Plan: left ear, lateral cartilage cont local wound care offload the ear as much as possible (17) Candidiasis: Plan: multiple locations - back/buttocks, groin, R axillary region cont anti-yeast topical powders start diflucan 100mg daily x 7 days Plan dispo - numerous referrals made by social work to various SNFs; he will not be returning to [facility] after this admission no luck to date of any facility available or willing to take him his insurance apparently provided a list of facilities that often take trach patients appreciate SW assistance updated pt's mother briefly by phone yesterday evening need to check last date of lewis insertion; if >30 days will need lewis exchanged Admission and Anticipated Discharge Date Admission Date: July 18, 2023 Subjective I spoke with Sherie Jesus from wound care today Woundvac was taken off; wound packed with aquacel ag she reports he has a significant candidal rash in R armpit, groin, backside per nursing no other issues Review of Systems 2 Review of Systems: Unobtainable due to cognitive status Physical Exam 2 Physical Exam: gen - NAD, sleeping --- full exam UNCHANGED from prior exam head - deformity right side from prior craniotomy neck - no JVD; trach in place - clean heart - RRR, s1 s2, no murmur lungs - CTA b/l; no rales or wheeze abd - soft NT ND BS+; PEG tube site clean ext - no edema b/l, pulses 2+ b/l neuro - contractures all extremities; generalized muscle wasting present skin - right axillary candidal rash Results & Data Results & Data Vital Signs (Past 12 Hours) Vital Signs Temp Pulse Pulse Resp BP Pulse Ox O2 Del Method 09/05/23 14:26 36.7 C 84 15 104/70 100 Trach Collar 09/05/23 13:11 36.9 C 80 12 120/81 99 Trach Collar 09/05/23 08:30 Trach Collar O2 Flow Rate 09/05/23 14:26 6 09/05/23 13:11 6 09/05/23 08:30 6 PG Care Time/CCT Total # of Minutes Spent Total Time Spent with Patient: Total time spent is greater than 50% in coordination of care (as documented) at patient's floor/unit and/or counseling patient: Coding Level of Care Code 10777 SUB INP/OBS CARE 25MIN Diagnoses Decubitus ulcer of sacral region, stage 4 L89.154 Chronic osteomyelitis of sacrum M86.68 Hospital acquired PNA J18.9; Y95 Gram-positive bacteremia R78.81 Transaminitis R74.01 Severe protein-calorie malnutrition E43 History of DVT (deep vein thrombosis) Z86.718 Pneumatosis coli K63.89 History of nontraumatic rupture of cerebral aneurysm Z86.79 Autonomic dysfunction G90.9 Decubitus ulcer of calf, unstageable L89.890 Cardiomyopathy I42.9 Tracheostomy status Z93.0 Nonverbal R47.01 Quadriplegia G82.50 Ulcer of external ear L98.499 Candidiasis B37.9
--- NOTE | 2023-09-06 19:33 | Hospitalist Progress Note ---
Date of Service September 06, 2023 Assessment & Plan (1) Decubitus ulcer of sacral region, stage 4: Plan: s/p debridement in the OR by Dr Issa on 07/31/23 intra-op culture with MSSA, pseudomonas, providencia, and anaerobes zosyn IV had been utilized for coverage of the above pathogens initially Wound vac placed on 08/01 Wound vac then changed to a pulsating irrigation woundvac on 08/21/23 There had been exposed coccyx on examination about 4-5 weeks ago but the coccyx is now covered with tissue per wound care team [facility] ID added flagyl to his cefepime on 08/21/23 due to lack of improvement and worsening appearance of his ulcer he underwent repeat debridement in the OR today by Dr Dorsey on 08/25/23 biopsy/culture of the coccyx done on 08/24 - grew VRE linezolid added on 08/30/23 -- ID advised 2 week course of linezolid, thus day #8 today otherwise remains on cefepime/flagyl appreciate gen surg assistance appreciate wound care assistance appreciate nutrition assistance appreciate ID assistance of note - previous rectal tube placed 08/03/23 and removed on 08/23/23 no issues with his stools exchanged his lewis today - 09/06/23 (2) Chronic osteomyelitis of sacrum: Plan: coccyx cont IV cefepime flagyl added by ID 08/21/23 linezolid added 08/30/23 2nd to VRE growing from bone bx (bx taken 08/25/23) - day #7 of linezolid 6 weeks of IV abx had been recommended by ID originally original course --> 07/31/23 09/10/23 this week will d/w ID whether to stop the cefepime or continue beyond 09/09 see #1 above (3) Hospital acquired PNA: Plan: LLL -- resolved 2nd pseudomonas infection 08/01 - cxr with worsening infiltrates on left 08/03 - collapse LLL 08/03 - bronchoscopy by Dr Blancas with mucous plugging found in the left-sided bronchial tree s/p removal; 08/07 - s/p bronch by Dr Lock - minimal secretions LLL, no plugs; thick secretions in trach, however 08/09 - bronch cx - pseudomonas, intermediate resistance 08/09 - changed zosyn to cefepime 08/22 - cxr - ongoing LLL infiltrates/effusion - similar to previous imaging has remained stable from pulmonary standpoint last 2 weeks cont saline nebs BID cont duonebs prn cont mucomyst BID (4) Gram-positive bacteremia: Plan: 06/2023 -- sources included: SSTI sacral decubitus ulcer Group C strep bacteremia - source thought 2nd to sacral wound Coag neg staph bacteremia - contaminant vs bacteremia Corynebacterium bacteremia (5) Transaminitis: Plan: resolved LFTs just a few days ago wnl (6) Severe protein-calorie malnutrition: Plan: improving slowly BMI now 20 (had been 18-19) still with diffuse sarcopenia / muscle wasting present most recent nutrition recommendations: (7) History of DVT (deep vein thrombosis): Plan: records reviewed -- RLE DVT discovered 11/2022 Had been on Eliquis 5mg BID since 12/12/22 Thus completed 6+ months of Rx 5mg dose was ultimately reduced to 2.5mg BID (8) Pneumatosis coli: Plan: Evaluated by General surgery last admission (mid June 2023) since no surgical abdomen/peritonitis/symptoms no Rx recommended during that admission etiology of the CT findings was uncertain abdominal exam remains benign / soft day-to-day (9) History of nontraumatic rupture of cerebral aneurysm: Plan: Patient is nonverbal at baseline with chronic contractures in all 4 extremities Acquired quadriplegia [address] head shows encephalomalacia and good shunt placement Ry suffered a ruptured brain aneurysm and SAH 08/2022 Had craniotomy and evacuation. skull fragment was reimplanted in November per family. Had a SENIOR ELECTRONICS TECHNICIAN shunt placement at [facility]. Has history of severe autonomic dysfunction / paroxysmal sympathetic hyperactivity / autonomic storm which is controlled on medications and has the potential to be confused with sepsis. 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 (15) Quadriplegia: (16) Ulcer of external ear: Plan: left ear, lateral cartilage cont local wound care offload the ear as much as possible appears resolved/healed (17) Candidiasis: Plan: multiple locations - back/buttocks, groin, R axillary region cont anti-yeast topical powders cont diflucan 100mg daily x 7 days - day #2 today Plan dispo - numerous referrals made by social work to various SNFs; he will not be returning to [facility] after this admission no luck to date of any facility available or willing to take him his insurance apparently provided a list of facilities that often take trach patients appreciate SW assistance updated pt's mother briefly by phone several days ago Admission and Anticipated Discharge Date Admission Date: July 18, 2023 Subjective I had nursing review Ry's chart to determine when lewis was last exchanged per nursing it was 07/27/23 thus, order placed to remove old catheter and place new one after the exchange he had mild hematuria by the time of my rounds/bedside assessment the hematuria had largely cleared no new issues per staff having about 1 stool/day Review of Systems 2 Review of Systems: Unobtainable due to cognitive status Physical Exam 2 Physical Exam: gen - NAD, sleeping ear - tiny ulcer L pinnae nearly healed head - deformity right side from prior craniotomy neck - no JVD; trach in place - clean heart - RRR, s1 s2, no murmur lungs - CTA b/l; no rales or wheeze; mildly decreased BS L base abd - soft NT ND BS+; PEG tube site clean ext - no edema b/l, pulses 2+ b/l neuro - contractures all extremities; generalized muscle wasting present - urine in lewis bag just about cleared Results & Data Results & Data Vital Signs (Past 12 Hours) Vital Signs Temp Pulse Resp BP Pulse Ox O2 Del Method O2 Flow Rate 09/06/23 14:29 36.7 C 82 15 103/69 98 Trach Collar 7 09/06/23 12:50 Trach Collar 6 PG Care Time/CCT Total # of Minutes Spent Total Time Spent with Patient: Total time spent is greater than 50% in coordination of care (as documented) at patient's floor/unit and/or counseling patient: Coding Level of Care Code 67959 SUB INP/OBS CARE 25MIN Diagnoses Decubitus ulcer of sacral region, stage 4 L89.154 Chronic osteomyelitis of sacrum M86.68 Hospital acquired PNA J18.9; Y95 Gram-positive bacteremia R78.81 Transaminitis R74.01 Severe protein-calorie malnutrition E43 History of DVT (deep vein thrombosis) Z86.718 Pneumatosis coli K63.89 History of nontraumatic rupture of cerebral aneurysm Z86.79 Autonomic dysfunction G90.9 Decubitus ulcer of calf, unstageable L89.890 Cardiomyopathy I42.9 Tracheostomy status Z93.0 Nonverbal R47.01 Quadriplegia G82.50 Ulcer of external ear L98.499 Candidiasis B37.9
[2023-09-06] MEDS: ALBUT/IPRATROP 3MG/0.5MG NEB 3 ML VIAL NEB PRN (20:10)
--- NOTE | 2023-09-07 20:53 | Hospitalist Progress Note ---
Date of Service September 07, 2023 Assessment & Plan (1) Decubitus ulcer of sacral region, stage 4: Plan: s/p debridement in the OR by Dr Issa on 07/31/23 intra-op culture with MSSA, pseudomonas, providencia, and anaerobes zosyn IV had been utilized for coverage of the above pathogens initially Wound vac placed on 08/01 Wound vac then changed to a pulsating irrigation woundvac on 08/21/23 There had been exposed coccyx on examination about 4-5 weeks ago but the coccyx is now covered with tissue per wound care team [facility] ID added flagyl to his cefepime on 08/21/23 due to lack of improvement and worsening appearance of his ulcer he underwent repeat debridement in the OR today by Dr Dorsey on 08/25/23 biopsy/culture of the coccyx done on 08/24 - grew VRE linezolid added on 08/30/23 -- ID advised 2 week course of linezolid, thus day #9 today otherwise remains on cefepime/flagyl appreciate gen surg assistance appreciate wound care assistance appreciate nutrition assistance appreciate ID assistance of note - previous rectal tube placed 08/03/23 and removed on 08/23/23 no issues with his stools exchanged his lewis - 09/06/23 (2) Chronic osteomyelitis of sacrum: Plan: coccyx cont IV cefepime flagyl added by ID 08/21/23 linezolid added 08/30/23 2nd to VRE growing from bone bx (bx taken 08/25/23) - day #9 of linezolid 6 weeks of IV abx had been recommended by ID originally original course --> 07/31/23 09/10/23 tomorrow will d/w ID whether to stop the cefepime or continue beyond 09/10/23 see #1 above (3) Hospital acquired PNA: Plan: LLL -- resolved 2nd pseudomonas infection 08/01 - cxr with worsening infiltrates on left 08/03 - collapse LLL 2/11 - bronchoscopy by Dr Blancas with mucous plugging found in the left-sided bronchial tree s/p removal; 08/07 - s/p bronch by Dr Lock - minimal secretions LLL, no plugs; thick secretions in trach, however 08/09 - bronch cx - pseudomonas, intermediate resistance 08/09 - changed zosyn to cefepime 08/22 - cxr - ongoing LLL infiltrates/effusion - similar to previous imaging has remained stable from pulmonary standpoint last 2 weeks cont saline nebs BID cont duonebs prn cont mucomyst BID try to place his left side UP in bed if and when possible (his contractures and his sacral wound make positioning challenging) (4) Gram-positive bacteremia: Plan: 06/2023 -- sources included: SSTI sacral decubitus ulcer Group C strep bacteremia - source thought 2nd to sacral wound Coag neg staph bacteremia - contaminant vs bacteremia Corynebacterium bacteremia (5) Transaminitis: Plan: resolved most recent LFTs wnl (6) Severe protein-calorie malnutrition: Plan: improving slowly BMI now 20 (had been 18-19) still with diffuse sarcopenia / muscle wasting present most recent nutrition recommendations: (7) History of DVT (deep vein thrombosis): Plan: records reviewed -- RLE DVT discovered 11/2022 Had been on Eliquis 5mg BID since 12/12/22 Thus completed 6+ months of Rx 5mg dose was ultimately reduced to 2.5mg BID (8) Pneumatosis coli: Plan: Evaluated by General surgery last admission (mid June 2023) since no surgical abdomen/peritonitis/symptoms no Rx recommended during that admission etiology of the CT findings was uncertain abdominal exam remains benign / soft day-to-day (9) History of nontraumatic rupture of cerebral aneurysm: Plan: Patient is nonverbal at baseline with chronic contractures in all 4 extremities Acquired quadriple[address] head shows encephalomalacia and good shunt placement Ry suffered a ruptured brain aneurysm and SAH 08/2022 Had craniotomy and evacuation. skull fragment was reimplanted in November per family. 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 Has history of severe autonomic dysfunction / paroxysmal sympathetic hyperactivity / autonomic storm which is controlled on medications and has the potential to be confused with sepsis. 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 (15) Quadriplegia: (16) Ulcer of external ear: Plan: left ear, lateral cartilage cont local wound care offload the ear as much as possible appears resolved/healed (17) Candidiasis: Plan: multiple locations - back/buttocks, groin, R axillary region cont anti-yeast topical powders cont diflucan 100mg daily x 7 days - day #3 today Plan dispo - numerous referrals made by social work to various SNFs; he will not be returning to [facility] after this admission no luck to date of any facility available or willing to take him his insurance apparently provided a list of facilities that often take trach patients appreciate SW assistance updated pt's mother briefly by phone several days ago will update her again tomorrow after speaking with Sherie Jesus from wound care Admission and Anticipated Discharge Date Admission Date: July 18, 2023 Subjective 1 stool earlier today no events overnight last night or today stable on 6 L O2 via trach collar urine in lewis completely clear today -- lewis exchanged on 09/05 (was overdue for exchange) Review of Systems 2 Review of Systems: Unobtainable due to cognitive status Physical Exam 2 Physical Exam: gen - NAD, sleeping head - deformity right side from prior craniotomy neck - no JVD; trach in place - clean heart - RRR, s1 s2, no murmur lungs - CTA b/l; no rales or wheeze; mildly decreased BS L base unchanged abd - soft NT ND BS+; PEG tube site clean ext - no edema b/l, pulses 2+ b/l skin - old blood blister right lateral thigh region; new blister with clear fluid right lateral thigh; I did not examine his buttock/sacral region neuro - contractures all extremities; generalized muscle wasting present - urine in lewis bag clear yellow without hematuria Results & Data Results & Data Vital Signs (Past 12 Hours) Vital Signs Temp Pulse Pulse Resp BP Pulse Ox O2 Del Method 09/07/23 19:36 36.2 C L 75 18 110/77 99 Trach Collar 09/07/23 19:20 78 18 98 Trach Collar 09/07/23 14:34 36.8 C 76 16 109/75 99 Trach Collar 09/07/23 08:57 78 104/68 99 Trach Collar O2 Flow Rate FiO2 09/07/23 19:36 6 09/07/23 19:20 6 28 09/07/23 14:34 6.5 09/07/23 08:57 6 PG Care Time/CCT Total # of Minutes Spent Total Time Spent with Patient: Total time spent is greater than 50% in coordination of care (as documented) at patient's floor/unit and/or counseling patient: Coding Level of Care Code 78438 SUB INP/OBS CARE 07/17MIN Diagnoses Decubitus ulcer of sacral region, stage 4 L89.154 Chronic osteomyelitis of sacrum M86.68 Hospital acquired PNA J18.9; Y95 Gram-positive bacteremia R78.81 Transaminitis R74.01 Severe protein-calorie malnutrition E43 History of DVT (deep vein thrombosis) Z86.718 Pneumatosis coli K63.89 History of nontraumatic rupture of cerebral aneurysm Z86.79 Autonomic dysfunction G90.9 Decubitus ulcer of calf, unstageable L89.890 Cardiomyopathy I42.9 Tracheostomy status Z93.0 Nonverbal R47.01 Quadriplegia G82.50 Ulcer of external ear L98.499 Candidiasis B37.9
[2023-09-08 06:23] LABS: Hematocrit (blood only) 34.3 % (42.0-52.0); Hemoglobin 10.5 g/dl (14.0-18.0); Mean Corpuscular Hemoglobin 29.4 pg (25.0-34.0); Mean Corpuscular Hgb Conc 30.6 g/dL (32.0-36.0); Mean Corpuscular Volume 96.1 fL (80.0-100.0); Mean Platelet Volume 12.4 fL (9.4-12.4); Platelet Count 244 K/uL (130-400); RDW Coefficient of Variation 14.6 % (11.5-14.5); RDW Standard Deviation 50.9 fL (36.4-46.3); Red Blood Count 3.57 M/uL (4.70-6.10); White Blood Count 6.01 K/ul (4.8-10.8)
[2023-09-08 06:33] LABS: Anion Gap 7 (3-11); BUN Creatinine Ratio 42.5 (10-20); Blood Urea Nitrogen 17 mg/dl (6-23); Calcium 9.3 mg/dl (8.6-10.3); Carbon Dioxide 30 mmol/L (21-32); Chloride 102 mmol/L (98-107); Creatinine Clr Calc Pharmacy 213.8 ml/min; Est GFR (African American) > 150.0 ml/min; Est GFR (Non-African American) > 150.0 ml/min; Glucose 114 mg/dl (70-99(Fasting)); Potassium 4.1 mmol/L (3.5-5.1); Sodium 139 mmol/L (136-145)
--- NOTE | 2023-09-08 20:49 | Hospitalist Progress Note ---
Date of Service September 08, 2023 Assessment & Plan (1) Decubitus ulcer of sacral region, stage 4: Plan: s/p debridement in the OR by Dr Issa on 07/31/23 intra-op culture with MSSA, pseudomonas, providencia, and anaerobes zosyn IV had been utilized for coverage of the above pathogens initially Wound vac placed on 08/01 Wound vac then changed to a pulsating irrigation woundvac on 08/21/23 There had been exposed coccyx on examination about 4-5 weeks ago but the coccyx is now covered with tissue per wound care team [facility] ID added flagyl to his cefepime on 08/21/23 due to lack of improvement and worsening appearance of his ulcer he underwent repeat debridement in the OR by Dr Dorsey on 08/25/23 biopsy/culture of the coccyx done on 08/24 - grew VRE linezolid added on 08/30/23 -- ID advised 2 week course of linezolid, thus day #10 today otherwise remains on cefepime/flagyl appreciate gen surg assistance appreciate wound care assistance appreciate nutrition assistance appreciate ID assistance on 09/04 the woundvac was removed due to candidiasis (extensive) in sacral area over the weekend aquacel AG used in [place] of woundvac defer management to Sherie Jesus and the wound care team of note - previous rectal tube placed 08/03/23 and removed on 08/23/23 ; no issues with his stools exchanged his lewis - 09/06/23 (2) Chronic osteomyelitis of sacrum: Plan: coccyx cont IV cefepime flagyl added by ID 08/21/23 linezolid added 08/30/23 2nd to VRE growing from bone bx (bx taken 08/25/23) - day #10 of linezolid 6 weeks of IV abx had been recommended by ID originally original course --> 07/31/23 09/10/23 tomorrow will d/w ID whether to stop the cefepime or continue beyond 09/10/23 see #1 above (3) Hospital acquired PNA: Plan: LLL -- resolved 2nd pseudomonas infection 08/01 - cxr with worsening infiltrates on left 08/03 - collapse LLL 08/03 - bronchoscopy by Dr Blancas with mucous plugging found in the left-sided bronchial tree s/p removal; 08/07 - s/p bronch by Dr Lock - minimal secretions LLL, no plugs; thick secretions in trach, however 08/09 - bronch cx - pseudomonas, intermediate resistance 08/09 - changed zosyn to cefepime 08/22 - cxr - ongoing LLL infiltrates/effusion - similar to previous imaging has remained stable from pulmonary standpoint last 2 weeks cont saline nebs BID cont duonebs prn cont mucomyst BID try to place his left side UP in bed if and when possible (his contractures and his sacral wound make positioning challenging) (4) Gram-positive bacteremia: Plan: 06/2023 -- sources included: SSTI sacral decubitus ulcer Group C strep bacteremia - source thought 2nd to sacral wound Coag neg staph bacteremia - contaminant vs bacteremia Corynebacterium bacteremia (5) Transaminitis: Plan: resolved LFTs wnl (6) Severe protein-calorie malnutrition: Plan: improving slowly BMI now 20 (had been 18-19) still with diffuse sarcopenia / muscle wasting present most recent nutrition recommendations: (7) History of DVT (deep vein thrombosis): Plan: records reviewed -- RLE DVT discovered 11/2022 Had been on Eliquis 5mg BID since 12/12/22 Thus completed 6+ months of Rx 5mg dose was ultimately reduced to 2.5mg BID (8) Pneumatosis coli: Plan: Evaluated by General surgery last admission (mid June 2023) since no surgical abdomen/peritonitis/symptoms no Rx recommended during that admission etiology of the CT findings was uncertain abdominal exam remains benign / soft day-to-day (9) History of nontraumatic rupture of cerebral aneurysm: Plan: Patient is nonverbal at baseline with chronic contractures in all 4 extremities Acquired quad[address] head shows encephalomalacia and good shunt placement Ry suffered a ruptured brain aneurysm and SAH 08/2022 Had craniotomy and evacuation. skull fragment was reimplanted in November per family. 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 Has history of severe autonomic dysfunction / paroxysmal sympathetic hyperactivity / autonomic storm which is controlled on medications and has the potential to be confused with sepsis. 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 (15) Quadriplegia: (16) Ulcer of external ear: Plan: left ear, lateral cartilage cont local wound care offload the ear as much as possible appears resolved/healed (17) Candidiasis: Plan: multiple locations - back/buttocks, groin, R axillary region cont anti-yeast topical powders cont diflucan 100mg daily x 7 days - day #4 today Plan dispo - numerous referrals made by social work to various SNFs; he will not be returning to [facility] after this admission no luck to date of any facility available or willing to take him his insurance apparently provided a list of facilities that often take trach patients - referral out to a place in [place] appreciate SW assistance updated pt's mother briefly by phone this evening, 09/07 Admission and Anticipated Discharge Date Admission Date: July 18, 2023 Subjective no events no changes in status remains stable on 6 L O2 via trach collar tolerating tube feedings urine in lewis bag clear +2 stools yesterday Review of Systems 2 Review of Systems: Unobtainable due to cognitive status (nonverbal ) Physical Exam 2 Physical Exam: gen - NAD, sleeping, eyes closed head - deformity right side from prior craniotomy L ear - ulcer on pinnae healed neck - no JVD; trach in place - clean heart - RRR, s1 s2, no murmur lungs - CTA b/l; no rales or wheeze; mildly decreased BS L base unchanged from prior exams abd - soft NT ND BS+; PEG tube site clean ext - no edema b/l, pulses 2+ b/l skin - old blood blister right lateral thigh region; new blister with clear fluid right lateral thigh - unchanged; I did not examine his buttock/sacral region; right axillary candidiasis improved neuro - contractures all extremities; generalized muscle wasting present - urine in lewis bag clear yellow Results & Data Results & Data Vital Signs (Past 12 Hours) Vital Signs Temp Pulse Resp BP Pulse Ox O2 Del Method O2 Flow Rate 09/08/23 19:38 72 19 96 Trach Collar 6 09/08/23 12:27 36.7 C 73 14 107/73 98 Trach Collar 6 FiO2 09/08/23 19:38 28 09/08/23 12:27 Laboratory Results Laboratory Results - last 24 hr 09/08/23 05:30 WBC 6.01 RBC 3.57 L Hgb 10.5 L Hct 34.3 L MCV 96.1 MCH 29.4 MCHC 30.6 L RDW Std Deviation 50.9 H RDW Coeff of Dario 14.6 H Plt Count 244 MPV 12.4 ESR 62 H Sodium 139 Potassium 4.1 Chloride 102 Carbon Dioxide 30 Anion Gap 7 BUN 17 Creatinine 0.40 L Est Cr Clr Drug Dosing 213.8 Est GFR ( Amer) > 150.0 Est GFR (Non-Af Amer) > 150.0 BUN/Creatinine Ratio 42.5 H Glucose 114 H Calcium 9.3 C-Reactive Protein 0.70 H PG Care Time/CCT Total # of Minutes Spent Total Time Spent with Patient: Total time spent is greater than 50% in coordination of care (as documented) at patient's floor/unit and/or counseling patient: Coding Level of Care Code 01075 SUB INP/OBS CARE 1/25MIN Diagnoses Decubitus ulcer of sacral region, stage 4 L89.154 Chronic osteomyelitis of sacrum M86.68 Hospital acquired PNA J18.9; Y95 Gram-positive bacteremia R78.81 Transaminitis R74.01 Severe protein-calorie malnutrition E43 History of DVT (deep vein thrombosis) Z86.718 Pneumatosis coli K63.89 History of nontraumatic rupture of cerebral aneurysm Z86.79 Autonomic dysfunction G90.9 Decubitus ulcer of calf, unstageable L89.890 Cardiomyopathy I42.9 Tracheostomy status Z93.0 Nonverbal R47.01 Quadriplegia G82.50 Ulcer of external ear L98.499 Candidiasis B37.9
[2023-09-08] MEDS: MICONAZOLE NITRATE POWDER 85 GM EXT PRN (21:41)
[2023-09-09 06:15] LABS: Alanine Aminotransferase 12 U/L (7-52); Albumin Globulin Ratio 1.1 (0.9-2); Albumin Level 3.9 gm/dl (3.4-5.0); Alkaline Phosphatase 66 U/L (34-104); Anion Gap 8 (3-11); Aspartate Aminotransferase 15 U/L (13-39); BUN Creatinine Ratio 38.6 (10-20); Bilirubin,Total 0.3 mg/dl (0.2-1.0); Blood Urea Nitrogen 17 mg/dl (6-23); Calcium 9.5 mg/dl (8.6-10.3); Carbon Dioxide 30 mmol/L (21-32); Chloride 101 mmol/L (98-107); Creatinine Clr Calc Pharmacy 194.3 ml/min; Est GFR (African American) > 150.0 ml/min; Est GFR (Non-African American) > 150.0 ml/min; Globulin 3.6 gm/dl (2.5-4.0); Glucose 107 mg/dl (70-99(Fasting)); Potassium 4.4 mmol/L (3.5-5.1); Sodium 139 mmol/L (136-145); Total Protein 7.5 gm/dl (6.0-8.3)
--- NOTE | 2023-09-09 18:07 | Hospitalist Progress Note ---
Date of Service September 09, 2023 Assessment & Plan (1) Decubitus ulcer of sacral region, stage 4: Plan: s/p debridement in the OR by Dr Issa on 07/31/23 Wound vac placed on 08/01 Wound vac then changed to a pulsating irrigation woundvac on 08/21/23 There had been exposed coccyx on examination about 4-5 weeks ago but the coccyx is now covered with tissue per wound care team due to lack of improvement and worsening appearance of his ulcer he underwent repeat debridement in the OR by Dr Dorsey on 08/25/23 on 09/04 the woundvac was removed due to candidiasis (extensive) in sacral area, treated with fluconazole over the weekend aquacel AG used in [place] of woundvac -photo reviewed 09/08 there has been some improvement but slow healing appreciate gen surg assistance appreciate wound care assistance appreciate nutrition assistance appreciate ID assistance (2) Chronic osteomyelitis of sacrum: Plan: coccyx intra-op culture from 07/31 with MSSA, pseudomonas, providencia, and anaerobes later sacral bone biopsy 08/24 with VRE and 2-week course of linezolid added (day 10) 6 weeks of IV abx with concurrent wound vac. Mainly pip-tazo and cefepime (metronidazole added ) 07/31/23 09/10/23 Labs reviewed 09/07-09/08 CMP, CBC unremarkable. ESR unchanged in 60s, CRP decreased to <1 (3) Hospital acquired PNA: Plan: LLL -- resolved 2nd pseudomonas infection 08/01 - cxr with worsening infiltrates on left 08/03 - collapse LLL 08/03 - bronchoscopy by Dr Blancas with mucous plugging found in the left-sided bronchial tree s/p removal; 08/07 - s/p bronch by Dr Lock - minimal secretions LLL, no plugs; thick secretions in trach, however 08/09 - bronch cx - pseudomonas, intermediate resistance 08/09 - changed zosyn to cefepime 08/22 - cxr - ongoing LLL infiltrates/effusion - similar to previous imaging has remained stable from pulmonary standpoint last 2 weeks cont saline nebs BID cont duonebs prn cont mucomyst BID try to place his left side UP in bed if and when possible (his contractures and his sacral wound make positioning challenging) (4) Gram-positive bacteremia: Plan: 06/2023, completed treatment and resolved -- sources included: SSTI sacral decubitus ulcer Group C strep bacteremia - source thought 2nd to sacral wound Coag neg staph bacteremia - contaminant vs bacteremia Corynebacterium bacteremia (5) Transaminitis: Plan: resolved LFTs wnl (6) Severe protein-calorie malnutrition: Plan: improving slowly BMI now 20 (had been 18-19) still with diffuse sarcopenia / muscle wasting present most recent nutrition recommendations: (7) History of DVT (deep vein thrombosis): Plan: records reviewed -- RLE DVT discovered 11/2022 Had been on Eliquis 5mg BID since 12/12/22 Thus completed 6+ months of Rx 5mg dose was ultimately reduced to 2.5mg BID (8) Pneumatosis coli: Plan: Evaluated by General surgery last admission (mid June 2023) since no surgical abdomen/peritonitis/symptoms no Rx recommended during that admission etiology of the CT findings was uncertain abdominal exam remains benign / soft day-to-day (9) History of nontraumatic rupture of cerebral aneurysm: Plan: Patient is nonverbal at baseline with chronic contractures in all 4 extremities Acquired quadriplegia [address] head shows encephalomalacia and good shunt placement Ry suffered a ruptured brain aneurysm and SAH 08/2022 Had craniotomy and evacuation. skull fragment was reimplanted in November per family. Had a [employer] shunt placement at [facility]. Has history of severe autonomic dysfunction / paroxysmal sympathetic hyperactivity / autonomic storm which is controlled on medications and has the potential to be confused with sepsis. 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 (15) Quadriplegia: Plan: 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 (16) Ulcer of external ear: Plan: left ear, lateral cartilage appears resolved/healed (17) Candidiasis: Plan: multiple locations - back/buttocks, groin, R axillary region cont anti-yeast topical powders cont diflucan 100mg daily x 7 days - day #5 today Plan dispo - insurance provided a list of facilities that often take trach patients - referral out to a place in [place] appreciate SW assistance lewis changed 09/05 RT reports trach ship's pilot balloon has fluid (this type uses air to fill), may be due for change, will chaz pulmonary Ry's mother updated by phone 09/07 Admission and Anticipated Discharge Date Admission Date: July 18, 2023 Subjective no events reviewed photo from wound dressing change today Physical Exam 2 Physical Exam: PHYSICAL EXAMINATION Last 24h vital signs reviewed, see documentation in flowsheet General: eyes closed HEENT: R skull deformity unchanged. trach site anterior neck cdi Lungs: clear to auscultation bilaterally anteriorly Heart: Reg no mrg Abdomen: soft nondistended. G-tube site mid abdomen, dressed. Extremities: Warm, dry, well-perfused. No extremity edema. diffuse sarcopenia present Neuro: eyes closed, he has flexion contractures of both wrists, right elbow, bilateral lower extremities, high tone throughout Psych: unable to assess Results & Data Results & Data Vital Signs (Past 12 Hours) Vital Signs Temp Pulse Resp BP Pulse Ox O2 Del Method O2 Flow Rate 09/09/23 14:41 37.0 C 75 18 103/71 100 Trach Collar 09/09/23 08:51 Trach Collar 6 09/09/23 07:39 37.1 C 76 18 102/67 99 Trach Collar 09/09/23 06:56 71 20 100 Trach Collar 6 FiO2 09/09/23 14:41 09/09/23 08:51 09/09/23 07:39 09/09/23 06:56 28 Laboratory Results 09/08/23 05:30 09/09/23 05:42 PG Care Time/CCT Total # of Minutes Spent Total Time Spent with Patient: Total time spent is greater than 50% in coordination of care (as documented) at patient's floor/unit and/or counseling patient: Coding Level of Care Code 24941 SUB INP/OBS CARE 2/35MIN Diagnoses Decubitus ulcer of sacral region, stage 4 L89.154 Chronic osteomyelitis of sacrum M86.68 Hospital acquired PNA J18.9; Y95 Gram-positive bacteremia R78.81 Transaminitis R74.01 Severe protein-calorie malnutrition E43 History of DVT (deep vein thrombosis) Z86.718 Pneumatosis coli K63.89 History of nontraumatic rupture of cerebral aneurysm Z86.79 Autonomic dysfunction G90.9 Decubitus ulcer of calf, unstageable L89.890 Cardiomyopathy I42.9 Tracheostomy status Z93.0 Nonverbal R47.01 Quadriplegia G82.50 Ulcer of external ear L98.499 Candidiasis B37.9
--- NOTE | 2023-09-10 15:00 | Pulmonology Progress Note ---
Date of Service September 10, 2023 Assessment & Plan (1) Tracheostomy status: Plan Impression: 33-year-old male with trach dependency secondary to catastrophic neurological issues. His packing machine pilot can router balloon happens water in it likely due to clerical and office support workers using saline syringes to inflate and deflate the cuff. The cuff is functional. Patient only requires tracheostomy for pulmonary toilet and thus can likely be de-escalated to a cuffless tracheostomy. Recommendations: 1. Will proceed with replacement of the current 8 cuffed tracheostomy tube with an 8 uncuffed tracheostomy tube. Management patient's other medical issues per primary service. Feel free to contact us with any additional questions Admission and Anticipated Discharge Date Admission Date: July 18, 2023 Subjective Asked by hospitalist to evaluate the patient for potential trach change. There was water or condensation noted in the packing machine pilot can router balloon. Patient seen and examined. EMR reviewed. Discussed with at bedside. Patient has been trach dependent since his initial neurological insult. She believes that the trach was last changed at [facility] by a provider who she cannot recall. He has not required positive airway pressure ventilation in some time and only keeps the tracheostomy for pulmonary toilet. She is unclear why he has a cuffed trach. Review of Systems 2 Review of Systems: Unobtainable due to cognitive status Physical Exam 2 Physical Exam: PHYSICAL EXAMINATION Last 24h vital signs reviewed, see documentation in flowsheet General: eyes closed HEENT: R skull deformity unchanged. trach site anterior neck cdi Lungs: clear to auscultation bilaterally anteriorly Heart: Reg no mrg Abdomen: soft nondistended. G-tube site mid abdomen, dressed. Extremities: Warm, dry, well-perfused. No extremity edema. diffuse sarcopenia present Neuro: eyes closed, he has flexion contractures of both wrists, right elbow, bilateral lower extremities, high tone throughout Psych: unable to assess Results & Data Results & Data Vital Signs (Past 12 Hours) Vital Signs Temp Pulse Resp BP Pulse Ox O2 Del Method O2 Flow Rate 09/10/23 13:52 36.7 C 73 18 111/76 97 Trach Collar 6 09/10/23 12:09 Trach Collar 6 09/10/23 08:57 36.7 C 70 18 117/79 100 Trach Collar 09/10/23 07:14 79 20 98 Trach Collar 6 FiO2 09/10/23 13:52 09/10/23 12:09 09/10/23 08:57 03/20/24 07:14 28 Laboratory Results 09/08/23 05:30 09/09/23 05:42 PG Care Time/CCT Total # of Minutes Spent Total Time Spent with Patient: Total time spent is greater than 50% in coordination of care (as documented) at patient's floor/unit and/or counseling patient: Coding Level of Care Code 05073 SUB INP/OBS CARE 2/35MIN Diagnoses Tracheostomy status Z93.0
--- NOTE | 2023-09-10 15:02 | Procedure Note ---
Procedure Note Date of Service September 10, 2023 Note Procedure: Replacement of tracheostomy cell tuber hand Dr. Street Indication: Air in the fixed wing pilot balloon. Consent: Verbal from family at bedside Procedure: Patient was placed in semiupright position. Trach ties were loosened. The fixed wing pilot balloon was completely deflated again. The 8.0 cuffed tracheostomy tube was removed. A freshly prepared 8.0 uncuffed tracheostomy tube had been lubricated and an inner cannula placed. This was easily passed through the stoma and secured with trach ties. The patient tolerated the procedure well without complication. Coding CPT Codes Pulmonary/Thoracic - Pulmonary and Thoracic: 61780 Tracheotomy tube change prior to Fistula ([id number]) [facility] [place] Procedure Codes (Charges) Pulmonary/Thoracic Procedure 1: Pulmonary and Thoracic: 49765 Tracheotomy tube change prior to Fistula
--- NOTE | 2023-09-10 18:15 | Hospitalist Progress Note ---
Date of Service September 10, 2023 Assessment & Plan (1) Decubitus ulcer of sacral region, stage 4: Plan: s/p debridement in the OR by Dr Issa on 07/31/23 Wound vac placed on 08/01 Wound vac then changed to a pulsating irrigation woundvac on 08/21/23 There had been exposed coccyx on examination about 4-5 weeks ago but the coccyx is now covered with tissue per wound care team due to lack of improvement and worsening appearance of his ulcer he underwent repeat debridement in the OR by Dr Dorsey on 08/25/23 on 09/04 the woundvac was removed due to candidiasis (extensive) in sacral area, treated with fluconazole over the weekend aquacel AG used in [place] of woundvac -photo reviewed 09/08 there has been some improvement but slow healing appreciate gen surg assistance appreciate wound care assistance appreciate nutrition assistance appreciate ID assistance (2) Chronic osteomyelitis of sacrum: Plan: coccyx intra-op culture from 07/31 with MSSA, pseudomonas, providencia, and anaerobes later sacral bone biopsy 08/24 with VRE and 2-week course of linezolid added (end 09/12) 6 weeks of IV abx with concurrent wound vac. Mainly pip-tazo and cefepime (metronidazole added ) 07/31/23 09/10/23 Labs reviewed 09/07-09/08 CMP, CBC unremarkable. ESR unchanged in 60s, CRP decreased to <1 (3) Hospital acquired PNA: Plan: LLL -- resolved 2nd pseudomonas infection 08/01 - cxr with worsening infiltrates on left 08/03 - collapse LLL 08/03 - bronchoscopy by Dr Blancas with mucous plugging found in the left-sided bronchial tree s/p removal; 08/07 - s/p bronch by Dr Lock - minimal secretions LLL, no plugs; thick secretions in trach, however 08/09 - bronch cx - pseudomonas, intermediate resistance 08/09 - changed zosyn to cefepime 08/22 - cxr - ongoing LLL infiltrates/effusion - similar to previous imaging has remained stable from pulmonary standpoint last 2 weeks cont saline nebs BID cont duonebs prn cont mucomyst BID try to place his left side UP in bed if and when possible (his contractures and his sacral wound make positioning challenging) (4) Gram-positive bacteremia: Plan: 06/2023, completed treatment and resolved -- sources included: SSTI sacral decubitus ulcer Group C strep bacteremia - source thought 2nd to sacral wound Coag neg staph bacteremia - contaminant vs bacteremia Corynebacterium bacteremia (5) Transaminitis: Plan: resolved LFTs wnl (6) Severe protein-calorie malnutrition: Plan: improving slowly BMI now 20 (had been 18-19) still with diffuse sarcopenia / muscle wasting present most recent nutrition recommendations: (7) History of DVT (deep vein thrombosis): Plan: records reviewed -- RLE DVT discovered 11/2022 Had been on Eliquis 5mg BID since 12/12/22 Thus completed 6+ months of Rx 5mg dose was ultimately reduced to 2.5mg BID (8) Pneumatosis coli: Plan: Evaluated by General surgery last admission (mid June 2023) since no surgical abdomen/peritonitis/symptoms no Rx recommended during that admission etiology of the CT findings was uncertain abdominal exam remains benign / soft day-to-day (9) History of nontraumatic rupture of cerebral aneurysm: Plan: Patient is nonverbal at baseline with chronic contractures in all 4 extremities Acquired quad[address] head shows encephalomalacia and good shunt placement Ry suffered a ruptured brain aneurysm and SAH 08/2022 Had craniotomy and evacuation. skull fragment was reimplanted in November per family. Had a [employer] shunt placement at [facility]. Has history of severe autonomic dysfunction / paroxysmal sympathetic hyperactivity / autonomic storm which is controlled on medications and has the potential to be confused with sepsis. Cont complex regimen of meds for this issue (dantrolene, scop patch, etc) (10) Autonomic dysfunction: Plan: Continue dantrolene and bromocriptine Continue gabapentin and baclofen for spasticity NO recent fevers or autonomic storming (11) Decubitus ulcer of calf, unstageable: Plan: b/l resolved (12) Cardiomyopathy: Plan: last echo 07/11/23 - low normal EF 50-55% remains compensated, cont beta joon has not required any diuretic event despite the large amounts of free water via PEG (13) Tracheostomy status: Plan: cont local trach care o2 requirement -- 6 to [address] Street, pulmonary to evaluate trach. Not changed in a long time and RT reports fluid in fixed wing pilot balloon 09/09 trach changed for 8.0 uncuffed tracheostomy tube by Dr. 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 (15) Quadriplegia: Plan: 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 (16) Ulcer of external ear: Plan: left ear, lateral cartilage appears resolved/healed (17) Candidiasis: Plan: multiple locations - back/buttocks, groin, R axillary region cont anti-yeast topical powders cont diflucan 100mg daily x 7 days - day #6 today Plan dispo - insurance provided a list of facilities that often take trach patients - referral out to a place in [place] appreciate SW assistance debbie changed 09/05 RT reports trach fixed wing pilot balloon has fluid (this type uses air to fill), may be due for change, will dw pulmonary Ry's mother updated by phone 09/07 Admission and Anticipated Discharge Date Admission Date: July 18, 2023 Subjective pulm changed out trach to cuffless nonverbal Physical Exam 2 Physical Exam: PHYSICAL EXAMINATION Last 24h vital signs reviewed, see documentation in flowsheet General: eyes open HEENT: R skull deformity unchanged. trach site anterior neck cdi Lungs: clear to auscultation bilaterally anteriorly Heart: Reg no mrg Abdomen: soft nondistended. G-tube site mid abdomen, dressed. Extremities: Warm, dry, well-perfused. No extremity edema. diffuse sarcopenia present Neuro: eyes open, did not track to me, he has flexion contractures of both wrists, right elbow, bilateral lower extremities, high tone throughout Psych: unable to assess Results & Data Results & Data Vital Signs (Past 12 Hours) Vital Signs Temp Pulse Resp BP Pulse Ox O2 Del Method O2 Flow Rate 09/10/23 13:52 36.7 C 73 18 111/76 97 Trach Collar 6 09/10/23 12:09 Trach Collar 6 09/10/23 08:57 36.7 C 70 18 117/79 100 Trach Collar 09/10/23 07:14 79 20 98 Trach Collar 6 FiO2 09/10/23 13:52 09/10/23 12:09 09/10/23 08:57 09/10/23 07:14 28 Laboratory Results 09/08/23 05:30 09/09/23 05:42 PG Care Time/CCT Total # of Minutes Spent Total Time Spent with Patient: Total time spent is greater than 50% in coordination of care (as documented) at patient's floor/unit and/or counseling patient: Coding Level of Care Code 85625 SUB INP/OBS CARE 2/35MIN Diagnoses Decubitus ulcer of sacral region, stage 4 L89.154 Chronic osteomyelitis of sacrum M86.68 Hospital acquired PNA J18.9; Y95 Gram-positive bacteremia R78.81 Transaminitis R74.01 Severe protein-calorie malnutrition E43 History of DVT (deep vein thrombosis) Z86.718 Pneumatosis coli K63.89 History of nontraumatic rupture of cerebral aneurysm Z86.79 Autonomic dysfunction G90.9 Decubitus ulcer of calf, unstageable L89.890 Cardiomyopathy I42.9 Tracheostomy status Z93.0 Nonverbal R47.01 Quadriplegia G82.50 Ulcer of external ear L98.499 Candidiasis B37.9
--- NOTE | 2023-09-11 18:06 | Hospitalist Progress Note ---
Date of Service September 11, 2023 Assessment & Plan (1) Decubitus ulcer of sacral region, stage 4: Plan: s/p debridement in the OR by Dr Issa on 07/31/23 Wound vac placed on 08/01 Wound vac then changed to a pulsating irrigation woundvac on 08/21/23 There had been exposed coccyx on examination about 4-5 weeks ago but the coccyx is now covered with tissue per wound care team due to lack of improvement and worsening appearance of his ulcer he underwent repeat debridement in the OR by Dr Dorsey on 08/25/23 on 09/04 the woundvac was removed due to candidiasis (extensive) in sacral area, treated with fluconazole over the weekend aquacel AG used in [place] of woundvac -photo reviewed 09/08 there has been some improvement but slow healing appreciate gen surg assistance appreciate wound care assistance appreciate nutrition assistance appreciate ID assistance (2) Chronic osteomyelitis of sacrum: Plan: coccyx intra-op culture from 07/31 with MSSA, pseudomonas, providencia, and anaerobes later sacral bone biopsy 08/24 with VRE and 2-week course of linezolid added (end 09/12) 6 weeks of IV abx with concurrent wound vac. Mainly pip-tazo and cefepime (metronidazole added ) 07/31/23 09/10/23 Labs reviewed 09/07-09/08 CMP, CBC unremarkable. ESR unchanged in 60s, CRP decreased to <1 (3) Hospital acquired PNA: Plan: LLL -- resolved 2nd pseudomonas infection 08/01 - cxr with worsening infiltrates on left 08/03 - collapse LLL 08/03 - bronchoscopy by Dr Blancas with mucous plugging found in the left-sided bronchial tree s/p removal; 08/07 - s/p bronch by Dr Lock - minimal secretions LLL, no plugs; thick secretions in trach, however 08/09 - bronch cx - pseudomonas, intermediate resistance 08/09 - changed zosyn to cefepime 08/22 - cxr - ongoing LLL infiltrates/effusion - similar to previous imaging has remained stable from pulmonary standpoint last few weeks trach routinely changed to cuffless by Dr. Street 09/09 cont saline nebs BID cont duonebs prn cont mucomyst BID try to place his left side UP in bed if and when possible (his contractures and his sacral wound make positioning challenging) (4) Gram-positive bacteremia: Plan: 06/2023, completed treatment and resolved -- sources included: SSTI sacral decubitus ulcer Group C strep bacteremia - source thought 2nd to sacral wound Coag neg staph bacteremia - contaminant vs bacteremia Corynebacterium bacteremia (5) Transaminitis: Plan: resolved LFTs wnl (6) Severe protein-calorie malnutrition: Plan: improving slowly BMI now 20 (had been 18-19) still with diffuse sarcopenia / muscle wasting present most recent nutrition recommendations: (7) History of DVT (deep vein thrombosis): Plan: records reviewed -- RLE DVT discovered 11/2022 Had been on Eliquis 5mg BID since 12/12/22 Thus completed 6+ months of Rx dose reduced to 2.5mg BID (8) Pneumatosis coli: Plan: Evaluated by General surgery last admission (mid June 2023) since no surgical abdomen/peritonitis/symptoms no Rx recommended during that admission etiology of the CT findings was uncertain abdominal exam remains benign / soft day-to-day (9) History of nontraumatic rupture of cerebral aneurysm: Plan: Patient is nonverbal at baseline with chronic contractures in all 4 extremities Acquired quadriplegia [address] head shows encephalomalacia and good shunt placement Ry suffered a ruptured brain aneurysm and SAH 08/2022 Had craniotomy and evacuation. skull fragment was reimplanted in November per family. Had a HEEL VARNISHER shunt placement at [facility]. Has history of severe autonomic dysfunction / paroxysmal sympathetic hyperactivity / autonomic storm which is controlled on medications and has the potential to be confused with sepsis. Cont complex regimen of meds for this issue (dantrolene, bromocriptine, scop patch, etc) (10) Autonomic dysfunction: Plan: Continue dantrolene and bromocriptine Continue gabapentin and baclofen for spasticity NO recent fevers or autonomic storming (11) Decubitus ulcer of calf, unstageable: Plan: b/l resolved (12) Cardiomyopathy: Plan: last echo 07/11/23 - low normal EF 50-55% remains compensated, cont beta joon has not required any diuretic (13) Tracheostomy status: Plan: cont local trach care o2 requirement -- 6 to 7 liters 09/09 trach changed for 8.0 uncuffed tracheostomy tube by Dr. 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 (15) Quadriplegia: Plan: 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 (16) Ulcer of external ear: Plan: left ear, lateral cartilage resolved/healed (17) Candidiasis: Plan: multiple locations - back/buttocks, groin, R axillary region cont anti-yeast topical powders cont diflucan 100mg daily x 7 days - day #7 today Plan discharge has been significantly delayed because lack of accepting facility which can meet his care needs lewis changed 09/05 trach changed 09/09 Ry's mother updated by phone 09/07 Admission and Anticipated Discharge Date Admission Date: July 18, 2023 Subjective no events had stool last 24h remains unresponsive, eyes open Physical Exam 2 Physical Exam: PHYSICAL EXAMINATION Last 24h vital signs reviewed, see documentation in flowsheet exam unchanged 09/10: General: eyes open HEENT: R skull deformity unchanged. trach site anterior neck cdi Lungs: clear to auscultation bilaterally anteriorly Heart: Reg no mrg Abdomen: soft nondistended. G-tube site mid abdomen, dressed. Extremities: Warm, dry, well-perfused. No extremity edema. diffuse sarcopenia present Neuro: eyes open opened and closed eyes, did not track to me, he has flexion contractures of both wrists, right elbow, bilateral lower extremities, high tone throughout Psych: unable to assess Results & Data Results & Data Vital Signs (Past 12 Hours) Vital Signs Temp Pulse Pulse Resp BP Pulse Ox O2 Del Method 09/11/23 15:35 36.9 C 77 16 107/71 93 Trach Collar 09/11/23 07:32 Trach Collar 09/11/23 07:19 36.9 C 77 16 104/70 100 Trach Collar 09/11/23 07:18 74 18 100 Trach Collar O2 Flow Rate FiO2 09/11/23 15:35 8 30 09/11/23 07:32 6 09/11/23 07:19 6 09/11/23 07:18 6 28 PG Care Time/CCT Total # of Minutes Spent Total Time Spent with Patient: Total time spent is greater than 50% in coordination of care (as documented) at patient's floor/unit and/or counseling patient: Coding Level of Care Code 90757 SUB INP/OBS CARE 1/25MIN Diagnoses Decubitus ulcer of sacral region, stage 4 L89.154 Chronic osteomyelitis of sacrum M86.68 Hospital acquired PNA J18.9; Y95 Gram-positive bacteremia R78.81 Transaminitis R74.01 Severe protein-calorie malnutrition E43 History of DVT (deep vein thrombosis) Z86.718 Pneumatosis coli K63.89 History of nontraumatic rupture of cerebral aneurysm Z86.79 Autonomic dysfunction G90.9 Decubitus ulcer of calf, unstageable L89.890 Cardiomyopathy I42.9 Tracheostomy status Z93.0 Nonverbal R47.01 Quadriplegia G82.50 Ulcer of external ear L98.499 Candidiasis B37.9
--- NOTE | 2023-09-12 16:30 | Hospitalist Progress Note ---
Date of Service September 12, 2023 Assessment & Plan (1) Decubitus ulcer of sacral region, stage 4: Plan: s/p debridement in the OR by Dr Issa on 07/31/23 Wound vac placed on 08/01 Wound vac then changed to a pulsating irrigation woundvac on 08/21/23 There had been exposed coccyx on examination about 4-5 weeks ago but the coccyx is now covered with tissue per wound care team due to lack of improvement and worsening appearance of his ulcer he underwent repeat debridement in the OR by Dr Dorsey on 08/25/23 on 09/04 the woundvac was removed due to candidiasis (extensive) in sacral area, treated with fluconazole over the weekend aquacel AG used in [place] of woundvac, vac is back on this week after sig improvement in candidiasis -photo reviewed 09/11 there has been some improvement discussed with wound nurse Sherie Jesus appreciate gen surg assistance appreciate wound care assistance appreciate nutrition assistance appreciate ID assistance (2) Chronic osteomyelitis of sacrum: Plan: coccyx intra-op culture from 07/31 with MSSA, pseudomonas, providencia, and anaerobes later sacral bone biopsy 08/24 with VRE and 2-week course of linezolid added (end 09/12) 6 weeks of IV abx with concurrent wound vac. Mainly pip-tazo and cefepime (metronidazole added ) 07/31/23 09/10/23 Labs reviewed 09/07-09/08 CMP, CBC unremarkable. ESR unchanged in 60s, CRP decreased to <1 (3) Hospital acquired PNA: Plan: LLL -- resolved 2nd pseudomonas infection 08/01 - cxr with worsening infiltrates on left 08/03 - collapse LLL 08/03 - bronchoscopy by Dr Blancas with mucous plugging found in the left-sided bronchial tree s/p removal; 08/07 - s/p bronch by Dr Lock - minimal secretions LLL, no plugs; thick secretions in trach, however 08/09 - bronch cx - pseudomonas, intermediate resistance 08/09 - changed zosyn to cefepime 08/22 - cxr - ongoing LLL infiltrates/effusion - similar to previous imaging has remained stable from pulmonary standpoint last few weeks trach routinely changed to cuffless by Dr. Street 09/09 cont saline nebs BID cont duonebs prn cont mucomyst BID (4) Gram-positive bacteremia: (5) Transaminitis: Plan: resolved LFTs wnl (6) Severe protein-calorie malnutrition: Plan: improving slowly BMI now 20 (had been 18-19) still with diffuse sarcopenia / muscle wasting present most recent nutrition recommendations: (7) History of DVT (deep vein thrombosis): Plan: records reviewed -- RLE DVT discovered 11/2022 Had been on Eliquis 5mg BID since 12/12/22 Thus completed 6+ months of Rx dose reduced to 2.5mg BID (8) History of nontraumatic rupture of cerebral aneurysm: Plan: Patient is nonverbal at baseline with chronic contractures in all 4 extremities, has eye opening, roving eye movements, grimacing, sleep-wake cycles. Acquired quadriplegia CT head shows encephalomalacia and good shunt placement Ry suffered a ruptured brain aneurysm and SAH 08/2022 Had craniotomy and evacuation. skull fragment was reimplanted in November per family. 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. Has history of severe autonomic dysfunction / paroxysmal sympathetic hyperactivity / autonomic storm which is controlled on medications and has the potential to be confused with sepsis. Cont complex regimen of meds for this issue (dantrolene, bromocriptine, scop patch, etc) (9) Autonomic dysfunction: Plan: Continue dantrolene and bromocriptine Continue gabapentin and baclofen for spasticity NO recent fevers or autonomic storming (10) Cardiomyopathy: Plan: last echo 07/11/23 - low normal EF 50-55% remains compensated, cont beta joon has not required any diuretic (11) Tracheostomy status: Plan: cont local trach care o2 requirement -- 6 to 7 liters 09/09 trach changed for 8.0 uncuffed tracheostomy tube by Dr. Street (12) Candidiasis: Plan: multiple locations - back/buttocks, groin, R axillary region cont anti-yeast topical powders completed 7d diflucan 09/11 - stopped Plan Recent history (resolved issues): #Bacteremias 06/2023, completed treatment and resolved -- sources included: SSTI sacral decubitus ulcer, Group C strep bacteremia - source thought 2nd to sacral wound, Coag neg staph bacteremia - contaminant vs bacteremia Corynebacterium bacteremia #Bilateral calf wounds, have healed. Ear wound, has healed. #Pneumatosis coli seen on CT abdomen mid Jun 2023. Evaluated by General surgery last admission. since no surgical abdomen/peritonitis/symptoms no Rx recommended during that admission etiology of the CT findings was uncertain. abdominal exam remains benign / soft day-to-day, tolerates TF well. discharge has been significantly delayed because lack of accepting facility which can meet his care needs lewis changed 09/05 trach changed 09/09 Ry's mother updated by phone 09/07 Admission and Anticipated Discharge Date Admission Date: July 18, 2023 Subjective wound vac back on shamika rash buttocks much improved Physical Exam 2 Physical Exam: PHYSICAL EXAMINATION Last 24h vital signs reviewed, see documentation in flowsheet General: eyes open HEENT: R skull deformity unchanged. trach site anterior neck cdi Lungs: clear to auscultation bilaterally anteriorly Heart: Reg no mrg Abdomen: soft nondistended. G-tube site mid abdomen, dressed. Reviewed photo from wound vac change 09/11 - yellow slough improved, healthy granulation tissue seems increased Extremities: Warm, dry, well-perfused. No extremity edema. diffuse sarcopenia present Neuro: eyes open. he has flexion contractures of both wrists, right elbow, bilateral lower extremities, high tone throughout Psych: unable to assess Results & Data Results & Data Vital Signs (Past 12 Hours) Vital Signs Temp Pulse Pulse Resp BP BP Pulse Ox 09/12/23 14:03 37.1 C 81 16 106/72 98 09/12/23 11:31 36.7 C 80 18 108/76 96 09/12/23 08:22 09/12/23 07:40 36.6 C 63 18 120/79 96 09/12/23 07:06 69 17 100 O2 Del Method O2 Flow Rate FiO2 09/12/23 14:03 Trach Collar 6 09/12/23 11:31 Trach Collar 6 09/12/23 08:22 Trach Collar 6 28 09/12/23 07:40 Trach Collar 6 09/12/23 07:06 Trach Collar 6 28 PG Care Time/CCT Total # of Minutes Spent Total Time Spent with Patient: Total time spent is greater than 50% in coordination of care (as documented) at patient's floor/unit and/or counseling patient: Coding Level of Care Code 09704 SUB INP/OBS CARE 2/35MIN Diagnoses Decubitus ulcer of sacral region, stage 4 L89.154 Chronic osteomyelitis of sacrum M86.68 Hospital acquired PNA J18.9; Y95 Gram-positive bacteremia R78.81 Transaminitis R74.01 Severe protein-calorie malnutrition E43 History of DVT (deep vein thrombosis) Z86.718 History of nontraumatic rupture of cerebral aneurysm Z86.79 Autonomic dysfunction G90.9 Cardiomyopathy I42.9 Tracheostomy status Z93.0 Candidiasis B37.9
[2023-09-12] MEDS: BACLOFEN 20 MG TAB PEG SCH (17:09)
[2023-09-12] MEDS: APIXABAN 2.5 MG TAB PO SCH (20:01)
--- NOTE | 2023-09-13 14:45 | Hospitalist Progress Note ---
Date of Service September 13, 2023 Assessment & Plan (1) Decubitus ulcer of sacral region, stage 4: Plan: s/p debridement in the OR by Dr Issa on 07/31/23 Wound vac placed on 08/01 Wound vac then changed to a pulsating irrigation woundvac on 08/21/23 There had been exposed coccyx on examination about 4-5 weeks ago but the coccyx is now covered with tissue per wound care team due to lack of improvement and worsening appearance of his ulcer he underwent repeat debridement in the OR by Dr Dorsey on 08/25/23 on 09/04 the woundvac was removed due to candidiasis (extensive) in sacral area, treated with fluconazole over the weekend aquacel AG used in [place] of woundvac, vac is back on this week after sig improvement in candidiasis -photo reviewed 09/11 there has been some improvement discussed with wound nurse Sherie Jesus appreciate gen surg assistance appreciate wound care assistance appreciate nutrition assistance appreciate ID assistance (2) Chronic osteomyelitis of sacrum: Plan: coccyx intra-op culture from 07/31 with MSSA, pseudomonas, providencia, and anaerobes later sacral bone biopsy 08/24 with VRE and 2-week course of linezolid added (end 09/12) 6 weeks of IV abx with concurrent wound vac. Mainly pip-tazo and cefepime (metronidazole added ) 07/31/23 09/10/23 Labs reviewed 09/07-09/08 CMP, CBC unremarkable. ESR unchanged in 60s, CRP decreased to <1 (3) Hospital acquired PNA: Plan: LLL -- resolved 2nd pseudomonas infection 08/01 - cxr with worsening infiltrates on left 08/03 - collapse LLL 08/03 - bronchoscopy by Dr Blancas with mucous plugging found in the left-sided bronchial tree s/p removal; 08/07 - s/p bronch by Dr Lock - minimal secretions LLL, no plugs; thick secretions in trach, however 08/09 - bronch cx - pseudomonas, intermediate resistance 08/09 - changed zosyn to cefepime 08/22 - cxr - ongoing LLL infiltrates/effusion - similar to previous imaging has remained stable from pulmonary standpoint last few weeks trach routinely changed to cuffless by Dr. Street 09/09 cont saline nebs BID cont duonebs prn cont mucomyst BID (4) Transaminitis: Plan: resolved LFTs wnl (5) Severe protein-calorie malnutrition: Plan: improving slowly BMI now 20 (had been 18-19) still with diffuse sarcopenia / muscle wasting present most recent nutrition recommendations: (6) History of DVT (deep vein thrombosis): Plan: records reviewed -- RLE DVT discovered 11/2022 Had been on Eliquis 5mg BID since 12/12/22 Thus completed 6+ months of Rx dose reduced to 2.5mg BID (7) History of nontraumatic rupture of cerebral aneurysm: Plan: Patient is nonverbal at baseline with chronic contractures in all 4 extremities, has eye opening, roving eye movements, grimacing, sleep-wake cycles. Acquired quadriplegia CT head shows encephalomalacia and good shunt placement Ry suffered a ruptured brain aneurysm and SAH 08/2022 Had craniotomy and evacuation. skull fragment was reimplanted in November per family. 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. Has history of severe autonomic dysfunction / paroxysmal sympathetic hyperactivity / autonomic storm which is controlled on medications and has the potential to be confused with sepsis. Cont complex regimen of meds for this issue (dantrolene, bromocriptine, scop patch, etc) (8) Autonomic dysfunction: Plan: Continue dantrolene and bromocriptine Continue gabapentin and baclofen for spasticity no recent fevers or autonomic storming (9) Cardiomyopathy: Plan: last echo 07/11/23 - low normal EF 50-55% remains compensated, cont beta joon has not required any diuretic (10) Tracheostomy status: Plan: cont local trach care o2 requirement -- 6 to 7 liters 09/09 trach changed for 8.0 uncuffed tracheostomy tube by Dr. Street (11) Candidiasis: Plan: multiple locations - back/buttocks, groin, R axillary region cont anti-yeast topical powders completed 7d diflucan 09/11 with significant improvement Plan Recent history (resolved issues): #Bacteremias 06/2023, completed treatment and resolved -- sources included: SSTI sacral decubitus ulcer, Group C strep bacteremia - source thought 2nd to sacral wound, Coag neg staph bacteremia - contaminant vs bacteremia Corynebacterium bacteremia #Bilateral calf wounds, have healed. Ear wound, has healed. #Pneumatosis coli seen on CT abdomen mid Jun 2023. Evaluated by General surgery last admission. since no surgical abdomen/peritonitis/symptoms no Rx recommended during that admission etiology of the CT findings was uncertain. abdominal exam remains benign / soft day-to-day, tolerates TF well. discharge has been significantly delayed because lack of accepting facility which can meet his care needs lewis changed 09/05 trach changed 09/09 Ry's mother updated by phone 09/07 Weekly labs Friday CBC BMP mag albumin Admission and Anticipated Discharge Date Admission Date: July 18, 2023 Subjective no events Physical Exam 2 Physical Exam: PHYSICAL EXAMINATION Last 24h vital signs reviewed, see documentation in flowsheet General: eyes open HEENT: R skull deformity unchanged. trach site anterior neck cdi Lungs: clear to auscultation bilaterally anteriorly Heart: Reg no mrg Abdomen: soft nondistended. G-tube site mid abdomen, dressed. Extremities: Warm, dry, well-perfused. No extremity edema. diffuse sarcopenia present. New foam dressing on R calf. Neuro: eyes open, roving eye movements and grimaced. he has flexion contractures of both wrists, right elbow, bilateral lower extremities, high tone throughout Psych: unable to assess Results & Data Results & Data Vital Signs (Past 12 Hours) Vital Signs Temp Pulse Resp BP Pulse Ox O2 Del Method O2 Flow Rate 09/13/23 11:24 Trach Collar 6 09/13/23 08:44 37.0 C 92 H 14 105/71 96 Trach Collar 6 PG Care Time/CCT Total # of Minutes Spent Total Time Spent with Patient: Total time spent is greater than 50% in coordination of care (as documented) at patient's floor/unit and/or counseling patient: Coding Level of Care Code 41053 SUB INP/OBS CARE 1/25MIN Diagnoses Decubitus ulcer of sacral region, stage 4 L89.154 Chronic osteomyelitis of sacrum M86.68 Hospital acquired PNA J18.9; Y95 Transaminitis R74.01 Severe protein-calorie malnutrition E43 History of DVT (deep vein thrombosis) Z86.718 History of nontraumatic rupture of cerebral aneurysm Z86.79 Autonomic dysfunction G90.9 Cardiomyopathy I42.9 Tracheostomy status Z93.0 Candidiasis B37.9
--- NOTE | 2023-09-14 08:14 | Hospitalist Progress Note ---
Date of Service September 14, 2023 Assessment & Plan (1) Tachycardia: Plan: Overnight 09/12-09/13 mild tachycardia 110 range No fever or increased hypoxia -check CBC c diff, CMP, mag, CRP, procal, albumin weekly labs due anyway. -might be volume depleted, has high insensible losses getting 2100 mL of water a day from flushes, getting less IV volume since no longer on as many IV antibiotics, I/O reviewed run negative, no diarrhea - trial LR bolus x 1L -no stool since 09/09 constipation could trigger his autonomic symptoms - ordered miralax. -labs review - WBC 11 but Hct also up could be volume depletion, procal normal argues against pneumonia, CRP again elevated now that he is not on antibiotics but pulmonary and wound colonization will cause some consistent inflammation. ESR never normalized despite 6 wk course of ABX. -repeat CBC, procal, CRP in AM -further infection workup if progressive or other infection S/sx. (2) Decubitus ulcer of sacral region, stage 4: Plan: s/p debridement in the OR by Dr Issa on 07/31/23 Wound vac placed on 08/01 Wound vac then changed to a pulsating irrigation woundvac on 08/21/23 There had been exposed coccyx on examination about 4-5 weeks ago but the coccyx is now covered with tissue per wound care team due to lack of improvement and worsening appearance of his ulcer he underwent repeat debridement in the OR by Dr Dorsey on 08/25/23 on 09/04 the woundvac was removed due to candidiasis (extensive) in sacral area, treated with fluconazole over the weekend [employer] used in [place] of woundvac, vac is back on this week after sig improvement in candidiasis -photo reviewed 09/11 there has been some improvement discussed with wound nurse Sherie Jesus appreciate gen surg assistance appreciate wound care assistance appreciate nutrition assistance appreciate ID assistance (3) Chronic osteomyelitis of sacrum: Plan: coccyx intra-op culture from 07/31 with MSSA, pseudomonas, providencia, and anaerobes later sacral bone biopsy 08/24 with VRE and 2-week course of linezolid added (end 09/12) 6 weeks of IV abx with concurrent wound vac. Mainly pip-tazo and cefepime (metronidazole added ) 07/31/23 09/10/23 Labs reviewed 09/07-09/08 CMP, CBC unremarkable. ESR unchanged in 60s, CRP decreased to <1 (4) Hospital acquired PNA: Plan: LLL -- resolved 2nd pseudomonas infection 08/01 - cxr with worsening infiltrates on left 08/03 - collapse LLL 08/03 - bronchoscopy by Dr Blancas with mucous plugging found in the left-sided bronchial tree s/p removal; 08/07 - s/p bronch by Dr Lock - minimal secretions LLL, no plugs; thick secretions in trach, however 08/09 - bronch cx - pseudomonas, intermediate resistance 08/09 - changed zosyn to cefepime 08/22 - cxr - ongoing LLL infiltrates/effusion - similar to previous imaging has remained stable from pulmonary standpoint last few weeks trach routinely changed to cuffless by Dr. Street 09/09 cont saline nebs BID cont duonebs prn cont mucomyst BID (5) Transaminitis: Plan: resolved LFTs wnl (6) Severe protein-calorie malnutrition: Plan: improving slowly BMI now 20 (had been 18-19) still with diffuse sarcopenia / muscle wasting present most recent nutrition recommendations: (7) History of DVT (deep vein thrombosis): Plan: records reviewed -- RLE DVT discovered 11/2022 Had been on Eliquis 5mg BID since 12/12/22 Thus completed 6+ months of Rx dose reduced to 2.5mg BID (8) History of nontraumatic rupture of cerebral aneurysm: Plan: Patient is nonverbal at baseline with chronic contractures in all 4 extremities, has eye opening, roving eye movements, grimacing, sleep-wake cycles. Acquired quadriplegia CT head shows encephalomalacia and good shunt placement Ry suffered a ruptured brain aneurysm and SAH 08/2022 Had craniotomy and evacuation. skull fragment was reimplanted in November per family. Had a TOGGLE PRESS OPERATOR shunt placement at [facility]. Has history of severe autonomic dysfunction / paroxysmal sympathetic hyperactivity / autonomic storm which is controlled on medications and has the potential to be confused with sepsis. Cont complex regimen of meds for this issue (dantrolene, bromocriptine, scop patch, etc) (9) Autonomic dysfunction: Plan: Continue dantrolene and bromocriptine Continue gabapentin and baclofen for spasticity (10) Cardiomyopathy: Plan: last echo 07/11/23 - low normal EF 50-55% remains compensated, cont beta joon has not required any diuretic (11) Tracheostomy status: Plan: cont local trach care o2 requirement -- 6 to 7 liters 09/09 trach changed for 8.0 uncuffed tracheostomy tube by Dr. Street (12) Candidiasis: Plan: multiple locations - back/buttocks, groin, R axillary region cont anti-yeast topical powders completed 7d diflucan 09/11 with significant improvement Plan 09/13 completed 30-day med review and renewed meds, next due 10/11 Recent history (resolved issues): #Bacteremias 06/2023, completed treatment and resolved -- sources included: SSTI sacral decubitus ulcer, Group C strep bacteremia - source thought 2nd to sacral wound, Coag neg staph bacteremia - contaminant vs bacteremia Corynebacterium bacteremia #Bilateral calf wounds, have healed. Ear wound, has healed. #Pneumatosis coli seen on CT abdomen mid Jun 2023. Evaluated by General surgery last admission. since no surgical abdomen/peritonitis/symptoms no Rx recommended during that admission etiology of the CT findings was uncertain. abdominal exam remains benign / soft day-to-day, tolerates TF well. discharge has been significantly delayed because lack of accepting facility which can meet his care needs lewis changed 09/05 trach changed 09/09 Ry's mother updated by phone 09/07, at bedside 09/13 Weekly labs done 09/13 Admission and Anticipated Discharge Date Admission Date: July 18, 2023 Subjective mildly tachycardic overnight, no fever mother is at bedside, reports she thinks his secretions are thicker Physical Exam 2 Physical Exam: PHYSICAL EXAMINATION Last 24h vital signs reviewed, see documentation in flowsheet General: eyes open HEENT: R skull deformity unchanged. trach site anterior neck cdi Lungs: clear to auscultation bilaterally anteriorly Heart: Reg no mrg Abdomen: soft nondistended. G-tube site mid abdomen, dressed. Extremities: Warm, dry, well-perfused. No extremity edema. diffuse sarcopenia present. New foam dressing on R calf. Neuro: eyes open, looking forward and grimacing. he has flexion contractures of both wrists, right elbow, bilateral lower extremities, high tone throughout Psych: unable to assess Results & Data Results & Data Vital Signs (Past 12 Hours) Vital Signs Temp Pulse Resp BP Pulse Ox O2 Del Method O2 Flow Rate 09/14/23 07:54 36.8 C 107 H 18 105/72 97 Trach Collar 09/13/23 23:34 112 H 98/66 L 93 Trach Collar 6 09/13/23 21:25 37 C 107 H 18 92/60 L 92 Trach Collar 6 09/13/23 20:21 110 H 18 97 Trach Collar 6 FiO2 09/14/23 07:54 09/13/23 23:34 09/13/23 21:25 09/13/23 20:21 28 Laboratory Results 09/14/23 08:26 09/14/23 08:26 PG Care Time/CCT Total # of Minutes Spent Total Time Spent with Patient: Total time spent is greater than 50% in coordination of care (as documented) at patient's floor/unit and/or counseling patient: Coding Level of Care Code 51225 SUB INP/OBS CARE 2/35MIN Diagnoses Tachycardia R00.0 Decubitus ulcer of sacral region, stage 4 L89.154 Chronic osteomyelitis of sacrum M86.68 Hospital acquired PNA J18.9; Y95 Transaminitis R74.01 Severe protein-calorie malnutrition E43 History of DVT (deep vein thrombosis) Z86.718 History of nontraumatic rupture of cerebral aneurysm Z86.79 Autonomic dysfunction G90.9 Cardiomyopathy I42.9 Tracheostomy status Z93.0 Candidiasis B37.9
[2023-09-14 09:00] LABS: Basophils # (auto) 0.04 K/uL (0.00-0.20); Basophils % (auto) 0.3 %; Eosinophils # (auto) 0.15 K/uL (0.00-0.50); Eosinophils % (auto) 1.3 %; Hematocrit (blood only) 35.7 % (42.0-52.0); Hemoglobin 11.3 g/dl (14.0-18.0); Immature Granulocytes # (auto) 0.04 K/uL (0.01-0.20); Immature Granulocytes % (auto) 0.3 %; Lymphocytes # (auto) 1.24 K/uL (1.20-3.40); Lymphocytes % (auto) 10.5 %; Mean Corpuscular Hemoglobin 29.7 pg (25.0-34.0); Mean Corpuscular Hgb Conc 31.7 g/dL (32.0-36.0); Mean Corpuscular Volume 93.9 fL (80.0-100.0); Monocytes # (auto) 0.73 K/uL (0.11-0.59); Monocytes % (auto) 6.2 %; Neutrophils # (auto) 9.56 K/uL (1.40-6.50); Neutrophils % (auto) 81.4 %; Platelet Count 250 K/uL (130-400); RDW Coefficient of Variation 15.7 % (11.5-14.5); RDW Standard Deviation 53.2 fL (36.4-46.3); White Blood Count 11.76 K/ul (4.8-10.8)
[2023-09-14 09:12] LABS: Alanine Aminotransferase 13 U/L (7-52); Albumin Globulin Ratio 1.1 (0.9-2); Albumin Level 4.1 gm/dl (3.4-5.0); Alkaline Phosphatase 63 U/L (34-104); Anion Gap 9 (3-11); Aspartate Aminotransferase 13 U/L (13-39); BUN Creatinine Ratio 40.5 (10-20); Bilirubin,Total 0.4 mg/dl (0.2-1.0); Blood Urea Nitrogen 15 mg/dl (6-23); C Reactive Protein 8.92 mg/dl (0-0.5); Calcium 9.5 mg/dl (8.6-10.3); Carbon Dioxide 28 mmol/L (21-32); Chloride 100 mmol/L (98-107); Creatinine Clr Calc Pharmacy 224.1 ml/min; Est GFR (African American) > 150.0 ml/min; Est GFR (Non-African American) > 150.0 ml/min; Globulin 3.6 gm/dl (2.5-4.0); Glucose 120 mg/dl (70-99(Fasting)); Magnesium 1.9 mg/dl (1.7-2.4); Potassium 4.3 mmol/L (3.5-5.1); Sodium 137 mmol/L (136-145); Total Protein 7.7 gm/dl (6.0-8.3)
[2023-09-14] MEDS: LACTATED RINGER'S 1,000 ML IV ONE (09:13)
[2023-09-14] MEDS: POLYETHYLENE (MIRALAX) 17 GM PACK GT ONE (12:50)
[2023-09-15 06:04] LABS: Hematocrit (blood only) 33.8 % (42.0-52.0); Hemoglobin 10.8 g/dl (14.0-18.0); Mean Corpuscular Hemoglobin 30.1 pg (25.0-34.0); Mean Corpuscular Volume 94.2 fL (80.0-100.0); Platelet Count 222 K/uL (130-400); RDW Coefficient of Variation 15.6 % (11.5-14.5); RDW Standard Deviation 53.8 fL (36.4-46.3); Red Blood Count 3.59 M/uL (4.70-6.10); White Blood Count 6.65 K/ul (4.8-10.8)
[2023-09-15] MEDS: ASCORBIC ACID 500 MG TAB PEG SCH (08:38)
--- NOTE | 2023-09-15 16:26 | Hospitalist Progress Note ---
Date of Service September 15, 2023 Assessment & Plan (1) Tachycardia: Plan: Overnight 09/12-09/13 mild tachycardia 110 range No fever or increased hypoxia -WBC normal today, potentially was hemoconcentrated 09/13. Tachycardia resolved today after 1L fluids given yesterday. Procal negative 09/13, 09/14 so pneumonia very unlikely, discussed with RT - reports only thin secretions, -might have been volume depleted, has high insensible losses getting 2100 mL of water a day from flushes, getting less IV volume since no longer on as many IV antibiotics -no stool since 09/09 constipation could trigger his autonomic symptoms - changed miralax to daily -CRP again elevated now that he is not on antibiotics but pulmonary and wound colonization will cause some consistent inflammation, unchanged overnight. ESR never normalized despite 6 wk course of ABX. -further infection workup if progressive or other infection S/sx. (2) Decubitus ulcer of sacral region, stage 4: Plan: s/p debridement in the OR by Dr Issa on 07/31/23 Wound vac placed on 08/01 Wound vac then changed to a pulsating irrigation woundvac on 08/21/23 There had been exposed coccyx on examination about 4-5 weeks ago but the coccyx is now covered with tissue per wound care team due to lack of improvement and worsening appearance of his ulcer he underwent repeat debridement in the OR by Dr Dorsey on 08/25/23 on 09/04 the woundvac was removed due to candidiasis (extensive) in sacral area, treated with fluconazole over the weekend [employer]el [employer] used in [place] of woundvac, vac is back on this week after sig improvement in candidiasis -photo reviewed 09/11 there has been some improvement discussed with wound nurse Sherie Jesus appreciate gen surg assistance appreciate wound care assistance appreciate nutrition assistance appreciate ID assistance (3) Chronic osteomyelitis of sacrum: Plan: coccyx intra-op culture from 07/31 with MSSA, pseudomonas, providencia, and anaerobes later sacral bone biopsy 08/24 with VRE and 2-week course of linezolid added (end 09/12) 6 weeks of IV abx with concurrent wound vac. Mainly pip-tazo and cefepime (metronidazole added ) 07/31/23 09/10/23 (4) Hospital acquired PNA: Plan: LLL -- resolved 2nd pseudomonas infection 08/01 - cxr with worsening infiltrates on left 08/03 - collapse LLL 08/03 - bronchoscopy by Dr Blancas with mucous plugging found in the left-sided bronchial tree s/p removal; 08/07 - s/p bronch by Dr Lock - minimal secretions LLL, no plugs; thick secretions in trach, however 08/09 - bronch cx - pseudomonas, intermediate resistance 08/09 - changed zosyn to cefepime 08/22 - cxr - ongoing LLL infiltrates/effusion - similar to previous imaging has remained stable from pulmonary standpoint last few weeks trach routinely changed to cuffless by Dr. Street 09/09 saline and mucomyst nebs changed to PRN after discussion with RT - has gone one month on these with no issues (5) Transaminitis: Plan: resolved LFTs wnl (6) Severe protein-calorie malnutrition: Plan: improving slowly BMI now 20 (had been 18-19) still with diffuse sarcopenia / muscle wasting present most recent nutrition recommendations: (7) History of DVT (deep vein thrombosis): Plan: records reviewed -- RLE DVT discovered 11/2022 Had been on Eliquis 5mg BID since 12/12/22 Thus completed 6+ months of Rx dose reduced to 2.5mg BID (8) History of nontraumatic rupture of cerebral aneurysm: Plan: Patient is nonverbal at baseline with chronic contractures in all 4 extremities, has eye opening, roving eye movements, grimacing, sleep-wake cycles. Acquired quadriplegia CT head shows encephalomalacia and good shunt placement Ry suffered a ruptured brain aneurysm and SAH 08/2022 Had craniotomy and evacuation. skull fragment was reimplanted in November per family. Had a RECTIFYING ATTENDANT shunt placement at [facility]. Has history of severe autonomic dysfunction / paroxysmal sympathetic hyperactivity / autonomic storm which is controlled on medications and has the potential to be confused with sepsis. Cont complex regimen of meds for this issue (dantrolene, bromocriptine, scop patch, etc) (9) Autonomic dysfunction: Plan: Continue dantrolene and bromocriptine Continue gabapentin and baclofen for spasticity (10) Cardiomyopathy: Plan: last echo 07/11/23 - low normal EF 50-55% remains compensated, cont beta joon has not required any diuretic (11) Tracheostomy status: Plan: cont local trach care o2 requirement -- 6 to 7 liters 09/09 trach changed for 8.0 uncuffed tracheostomy tube by Dr. Street (12) Candidiasis: Plan: multiple locations - back/buttocks, groin, R axillary region cont anti-yeast topical powders completed 7d diflucan 09/11 with significant improvement Plan 09/13 completed 30-day med review and renewed meds, next due 10/11 Recent history (resolved issues): #Bacteremias 06/2023, completed treatment and resolved -- sources included: SSTI sacral decubitus ulcer, Group C strep bacteremia - source thought 2nd to sacral wound, Coag neg staph bacteremia - contaminant vs bacteremia Corynebacterium bacteremia #Bilateral calf wounds, have healed. Ear wound, has healed. #Pneumatosis coli seen on CT abdomen mid Jun 2023. Evaluated by General surgery last admission. since no surgical abdomen/peritonitis/symptoms no Rx recommended during that admission etiology of the CT findings was uncertain. abdominal exam remains benign / soft day-to-day, tolerates TF well. discharge has been significantly delayed because lack of accepting facility which can meet his care needs lewis changed 09/05 trach changed 09/09 Ry's mother updated by phone 09/07, at bedside 09/13 Weekly labs done 09/13 Admission and Anticipated Discharge Date Admission Date: July 18, 2023 Subjective no events tachycardia seems to have resolved after 1L IVF yesterday. No fevers. Physical Exam 2 Physical Exam: PHYSICAL EXAMINATION Last 24h vital signs reviewed, see documentation in flowsheet General: eyes open HEENT: R skull deformity unchanged. trach site anterior neck cdi Lungs: good air movement bilaterally anteriorly, slightly coarse bilaterally Heart: Reg no mrg Abdomen: soft nondistended. G-tube site mid abdomen, dressed. Extremities: Warm, dry, well-perfused. No extremity edema. diffuse sarcopenia present. New foam dressing on R calf. Neuro: eyes open, grimacing, roving eye movements. he has flexion contractures of both wrists, right elbow, bilateral lower extremities, high tone throughout Psych: unable to assess Results & Data Results & Data Vital Signs (Past 12 Hours) Vital Signs Temp Pulse Resp BP Pulse Ox O2 Del Method O2 Flow Rate 09/15/23 13:52 36.8 C 87 16 109/75 95 Room Air 09/15/23 08:30 Trach Collar 6 09/15/23 07:18 90 18 97 Trach Collar 6 09/15/23 07:10 36.6 C 89 16 108/76 98 Room Air FiO2 09/15/23 13:52 09/15/23 08:30 28 09/15/23 07:18 28 09/15/23 07:10 Laboratory Results 09/15/23 05:32 09/14/23 08:26 PG Care Time/CCT Total # of Minutes Spent Total Time Spent with Patient: Total time spent is greater than 50% in coordination of care (as documented) at patient's floor/unit and/or counseling patient: Coding Level of Care Code 55623 SUB INP/OBS CARE 2/35MIN Diagnoses Tachycardia R00.0 Decubitus ulcer of sacral region, stage 4 L89.154 Chronic osteomyelitis of sacrum M86.68 Hospital acquired PNA J18.9; Y95 Transaminitis R74.01 Severe protein-calorie malnutrition E43 History of DVT (deep vein thrombosis) Z86.718 History of nontraumatic rupture of cerebral aneurysm Z86.79 Autonomic dysfunction G90.9 Cardiomyopathy I42.9 Tracheostomy status Z93.0 Candidiasis B37.9
[2023-09-15] MEDS: POLYETHYLENE (MIRALAX) 17 GM PACK GT SCH (16:45)
[2023-09-16 06:44] LABS: Alanine Aminotransferase 12 U/L (7-52); Albumin Globulin Ratio 1.1 (0.9-2); Albumin Level 3.9 gm/dl (3.4-5.0); Alkaline Phosphatase 56 U/L (34-104); Anion Gap 9 (3-11); Aspartate Aminotransferase 12 U/L (13-39); BUN Creatinine Ratio 48.6 (10-20); Bilirubin,Total 0.4 mg/dl (0.2-1.0); Blood Urea Nitrogen 18 mg/dl (6-23); Calcium 9.6 mg/dl (8.6-10.3); Carbon Dioxide 28 mmol/L (21-32); Chloride 100 mmol/L (98-107); Creatinine Clr Calc Pharmacy 218.9 ml/min; Est GFR (African American) > 150.0 ml/min; Est GFR (Non-African American) > 150.0 ml/min; Globulin 3.5 gm/dl (2.5-4.0); Glucose 109 mg/dl (70-99(Fasting)); Sodium 137 mmol/L (136-145); Total Protein 7.4 gm/dl (6.0-8.3)
--- NOTE | 2023-09-16 12:51 | Hospitalist Progress Note ---
Date of Service September 16, 2023 Assessment & Plan (1) Tachycardia: Plan: Now resolved (2) Decubitus ulcer of sacral region, stage 4: Plan: s/p debridement in the OR by Dr Isas on 07/31/23 Wound vac placed on 08/01 Wound vac then changed to a pulsating irrigation woundvac on 08/21/23 There had been exposed coccyx on examination about 4-5 weeks ago but the coccyx is now covered with tissue per wound care team due to lack of improvement and worsening appearance of his ulcer he underwent repeat debridement in the OR by Dr Dorsey on 08/25/23 on 09/04 the woundvac was removed due to candidiasis (extensive) in sacral area, treated with fluconazole over the weekend aquacel AG used in [place] of woundvac, vac is back on this week after sig improvement in candidiasis Continue wound care Appreciate general surgery and wound care. (3) Chronic osteomyelitis of sacrum: Plan: coccyx intra-op culture from 07/31 with MSSA, pseudomonas, providencia, and anaerobes later sacral bone biopsy 08/24 with VRE and 2-week course of linezolid added (end 09/12) Patient has completed 6 weeks of IV abx with concurrent wound vac. Mainly pip- tazo and cefepime (metronidazole added ) 07/31/23 09/10/23 (4) Hospital acquired PNA: Plan: LLL -- resolved 2nd pseudomonas infection 08/01 - cxr with worsening infiltrates on left 08/03 - collapse LLL 08/03 - bronchoscopy by Dr Blancas with mucous plugging found in the left-sided bronchial tree s/p removal; 08/07 - s/p bronch by Dr Lock - minimal secretions LLL, no plugs; thick secretions in trach, however 08/09 - bronch cx - pseudomonas, intermediate resistance 08/09 - changed zosyn to cefepime 08/22 - cxr - ongoing LLL infiltrates/effusion - similar to previous imaging has remained stable from pulmonary standpoint last few weeks trach routinely changed to cuffless by Dr. Street 09/09 saline and mucomyst nebs changed to PRN after discussion with RT - has gone one month on these with no issues (5) Transaminitis: Plan: resolved LFTs wnl (6) Severe protein-calorie malnutrition: Plan: improving slowly BMI now 20 (had been 18-19) still with diffuse sarcopenia / muscle wasting present most recent nutrition recommendations: (7) History of DVT (deep vein thrombosis): Plan: records reviewed -- RLE DVT discovered 11/2022 Had been on Eliquis 5mg BID since 12/12/22 Thus completed 6+ months of Rx dose reduced to 2.5mg BID (8) History of nontraumatic rupture of cerebral aneurysm: Plan: Patient is nonverbal at baseline with chronic contractures in all 4 extremities, has eye opening, roving eye movements, grimacing, sleep-wake cycles. Acquired quadriplegia CT head shows encephalomalacia and good shunt placement Ry suffered a ruptured brain aneurysm and SAH 08/2022 Had craniotomy and evacuation. skull fragment was reimplanted in November per family. Had a MASTER PILOT shunt placement at [facility]. Has history of severe autonomic dysfunction / paroxysmal sympathetic hyperactivity / autonomic storm which is controlled on medications and has the potential to be confused with sepsis. Cont complex regimen of meds for this issue (dantrolene, bromocriptine, scop patch, etc) (9) Autonomic dysfunction: Plan: Continue dantrolene and bromocriptine Continue gabapentin and baclofen for spasticity (10) Cardiomyopathy: Plan: last echo 07/11/23 - low normal EF 50-55% remains compensated, cont beta joon has not required any diuretic (11) Tracheostomy status: Plan: cont local trach care o2 requirement -- 6 to 7 liters 09/09 trach changed for 8.0 uncuffed tracheostomy tube by Dr. Street (12) Candidiasis: Plan: multiple locations - back/buttocks, groin, R axillary region cont anti-yeast topical powders completed 7d diflucan 09/11 with significant improvement Plan 09/13 completed 30-day med review and renewed meds, next due 10/11 Recent history (resolved issues): #Bacteremias 06/2023, completed treatment and resolved -- sources included: SSTI sacral decubitus ulcer, Group C strep bacteremia - source thought 2nd to sacral wound, Coag neg staph bacteremia - contaminant vs bacteremia Corynebacterium bacteremia #Bilateral calf wounds, have healed. Ear wound, has healed. #Pneumatosis coli seen on CT abdomen mid Jun 2023. Evaluated by General surgery last admission. since no surgical abdomen/peritonitis/symptoms no Rx recommended during that admission etiology of the CT findings was uncertain. abdominal exam remains benign / soft day-to-day, tolerates TF well. discharge has been significantly delayed because lack of accepting facility which can meet his care needs lewis changed 09/05 momo changed 09/09 His aunt was at the bedside, updated. Still looking for placement for him. 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 No JVD. No bruits. Thyroid normal, trachea midline, no adenopathy. Heart--normal S1 and S2. No murmurs, rubs or gallops. Lungs--clear bilaterally, no respiratory distress, no accessory muscle use. Abdomen--normal bowel sounds and soft. Extremities--no cyanosis or clubbing. No edema. Dermatologic--normal skin turgor, normal color, no abnormal lymph nodes, no rash. Neurologic--unable to fully assess Rheumatologic--normal range of motion. Psychiatric--unable to fully assess Results & Data Results & Data Vital Signs (Past 12 Hours) Vital Signs Temp Pulse Resp BP Pulse Ox O2 Del Method O2 Flow Rate 09/16/23 08:45 Trach Collar 6 09/16/23 07:12 97.9 F 78 18 109/76 99 Trach Collar FiO2 09/16/23 08:45 28 09/16/23 07:12 PG Care Time/CCT Total # of Minutes Spent Total Time Spent with Patient: Total time spent is greater than 50% in coordination of care (as documented) at patient's floor/unit and/or counseling patient: Coding Level of Care Code 38072 SUB INP/OBS CARE 2/35MIN Diagnoses Tachycardia R00.0 Decubitus ulcer of sacral region, stage 4 L89.154 Chronic osteomyelitis of sacrum M86.68 Hospital acquired PNA J18.9; Y95 Transaminitis R74.01 Severe protein-calorie malnutrition E43 History of DVT (deep vein thrombosis) Z86.718 History of nontraumatic rupture of cerebral aneurysm Z86.79 Autonomic dysfunction G90.9 Cardiomyopathy I42.9 Tracheostomy status Z93.0 Candidiasis B37.9 Time Spent (min) 35
[2023-09-17 06:47] LABS: Hematocrit (blood only) 32.9 % (42.0-52.0); Hemoglobin 10.6 g/dl (14.0-18.0); Mean Corpuscular Hemoglobin 30.2 pg (25.0-34.0); Mean Corpuscular Hgb Conc 32.2 g/dL (32.0-36.0); Mean Corpuscular Volume 93.7 fL (80.0-100.0); Mean Platelet Volume 11.8 fL (9.4-12.4); Platelet Count 231 K/uL (130-400); RDW Coefficient of Variation 15.5 % (11.5-14.5); RDW Standard Deviation 52.8 fL (36.4-46.3); Red Blood Count 3.51 M/uL (4.70-6.10); White Blood Count 6.03 K/ul (4.8-10.8)
[2023-09-17 07:10] LABS: Anion Gap 8 (3-11); BUN Creatinine Ratio 48.7 (10-20); Blood Urea Nitrogen 19 mg/dl (6-23); Calcium 9.5 mg/dl (8.6-10.3); Carbon Dioxide 30 mmol/L (21-32); Chloride 98 mmol/L (98-107); Creatinine Clr Calc Pharmacy 207.7 ml/min; Est GFR (African American) > 150.0 ml/min; Est GFR (Non-African American) > 150.0 ml/min; Glucose 120 mg/dl (70-99(Fasting)); Potassium 3.8 mmol/L (3.5-5.1); Sodium 136 mmol/L (136-145)
--- NOTE | 2023-09-17 12:25 | Hospitalist Progress Note ---
Date of Service September 17, 2023 Assessment & Plan (1) Tachycardia: Plan: Now resolved (2) Decubitus ulcer of sacral region, stage 4: Plan: Stage IV sacral decubitus ulcer, present on admission s/p debridement in the OR by Dr Dorsey-Herman on 07/31/23 Wound vac placed on 08/01 Wound vac then changed to a pulsating irrigation woundvac on 08/21/23 There had been exposed coccyx on examination about 4-5 weeks ago but the coccyx is now covered with tissue per wound care team due to lack of improvement and worsening appearance of his ulcer he underwent repeat debridement in the OR by Dr Dorsey on 08/25/23 on 09/04 the woundvac was removed due to candidiasis (extensive) in sacral area, treated with fluconazole over the weekend aquacel AG used in [place] of woundvac, vac is back on this week after sig improvement in candidiasis Continue wound care Appreciate general surgery and wound care. (3) Chronic osteomyelitis of sacrum: Plan: coccyx intra-op culture from 07/31 with MSSA, pseudomonas, providencia, and anaerobes later sacral bone biopsy 08/24 with VRE and 2-week course of linezolid added (end 09/12) per Recommendation by infectious disease, patient has completed 6 weeks of IV abx with concurrent wound vac. Mainly pip-tazo and cefepime (metronidazole added ) 07/31/23 09/10/23 (4) Hospital acquired PNA: Plan: LLL -- resolved 2nd pseudomonas infection 08/01 - cxr with worsening infiltrates on left 08/03 - collapse LLL 08/03 - bronchoscopy by Dr Blancas with mucous plugging found in the left-sided bronchial tree s/p removal; 08/07 - s/p bronch by Dr Lock - minimal secretions LLL, no plugs; thick secretions in trach, however 08/09 - bronch cx - pseudomonas, intermediate resistance 08/09 - changed zosyn to cefepime 08/22 - cxr - ongoing LLL infiltrates/effusion - similar to previous imaging has remained stable from pulmonary standpoint last few weeks trach routinely changed to cuffless by Dr. Street 09/09 saline and mucomyst nebs changed to PRN after discussion with RT - has gone one month on these with no issues (5) Transaminitis: Plan: resolved LFTs wnl (6) Severe protein-calorie malnutrition: Plan: improving slowly BMI now 20 (had been 18-19) still with diffuse sarcopenia / muscle wasting present most recent nutrition recommendations: (7) History of DVT (deep vein thrombosis): Plan: records reviewed -- RLE DVT discovered 11/2022 Had been on Eliquis 5mg BID since 12/12/22 Thus completed 6+ months of Rx dose reduced to 2.5mg BID (8) History of nontraumatic rupture of cerebral aneurysm: Plan: Patient is nonverbal at baseline with chronic contractures in all 4 extremities, has eye opening, roving eye movements, grimacing, sleep-wake cycles. Acquired quadriplegia CT head shows encephalomalacia and good shunt placement Ry suffered a ruptured brain aneurysm and SAH 08/2022 Had craniotomy and evacuation. skull fragment was reimplanted in November per family. Had a AGRICULTURAL CHEMICALS INSPECTOR shunt placement at [facility]. Has history of severe autonomic dysfunction / paroxysmal sympathetic hyperactivity / autonomic storm which is controlled on medications and has the potential to be confused with sepsis. Cont complex regimen of meds for this issue (dantrolene, bromocriptine, scop patch, etc) (9) Autonomic dysfunction: Plan: Continue dantrolene and bromocriptine Continue gabapentin and baclofen for spasticity (10) Cardiomyopathy: Plan: last echo 07/11/23 - low normal EF 50-55% remains compensated, cont beta joon has not required any diuretic (11) Tracheostomy status: Plan: cont local trach care o2 requirement -- 6 to 7 liters 09/09 trach changed for 8.0 uncuffed tracheostomy tube by Dr. Street (12) Candidiasis: Plan: multiple locations - back/buttocks, groin, R axillary region cont anti-yeast topical powders completed 7d diflucan 09/11 with significant improvement Plan 09/13 completed 30-day med review and renewed meds, next due 10/11 Recent history (resolved issues): #Bacteremias 06/2023, completed treatment and resolved -- sources included: SSTI sacral decubitus ulcer, Group C strep bacteremia - source thought 2nd to sacral wound, Coag neg staph bacteremia - contaminant vs bacteremia Corynebacterium bacteremia #Bilateral calf wounds, have healed. Ear wound, has healed. #Pneumatosis coli seen on CT abdomen mid Jun 2023. Evaluated by General surgery last admission. since no surgical abdomen/peritonitis/symptoms no Rx recommended during that admission etiology of the CT findings was uncertain. abdominal exam remains benign / soft day-to-day, tolerates TF well. discharge has been significantly delayed because lack of accepting facility which can meet his care needs lewis changed 09/05 trach changed 09/09 Still looking for placement for him. 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 No JVD. No bruits. Thyroid normal, trachea midline, no adenopathy. Heart--normal S1 and S2. No murmurs, rubs or gallops. Lungs-- reduced air entry auscultation Abdomen--normal bowel sounds and soft. Extremities--no cyanosis or clubbing. No edema. Contracted extremities Dermatologic--normal skin turgor, normal color, no abnormal lymph nodes, no rash. Neurologic--unable to fully assess Rheumatologic--unable to fully assess. Psychiatric--unable to fully assess Results & Data Results & Data Vital Signs (Past 12 Hours) Vital Signs Temp Pulse Resp BP Pulse Ox O2 Del Method 09/17/23 07:18 96.8 F L 65 14 108/75 100 Trach Collar PG Care Time/CCT Total # of Minutes Spent Total Time Spent with Patient: Total time spent is greater than 50% in coordination of care (as documented) at patient's floor/unit and/or counseling patient: Coding Level of Care Code 73621 SUB INP/OBS CARE 2/35MIN Diagnoses Tachycardia R00.0 Decubitus ulcer of sacral region, stage 4 L89.154 Chronic osteomyelitis of sacrum M86.68 Hospital acquired PNA J18.9; Y95 Transaminitis R74.01 Severe protein-calorie malnutrition E43 History of DVT (deep vein thrombosis) Z86.718 History of nontraumatic rupture of cerebral aneurysm Z86.79 Autonomic dysfunction G90.9 Cardiomyopathy I42.9 Tracheostomy status Z93.0 Candidiasis B37.9 Time Spent (min) 35
--- NOTE | 2023-09-18 12:39 | Hospitalist Progress Note ---
Date of Service September 18, 2023 Assessment & Plan (1) Tachycardia: Plan: Now resolved (2) Decubitus ulcer of sacral region, stage 4: Plan: Stage IV sacral decubitus ulcer, present on admission s/p debridement in the OR by Dr Issa on 07/31/23 Wound vac placed on 08/01 Wound vac then changed to a pulsating irrigation woundvac on 08/21/23 due to lack of improvement and worsening appearance of his ulcer he underwent repeat debridement in the OR by Dr Dorsey on 08/25/23 on 09/04 the woundvac was removed due to candidiasis (extensive) in sacral area, treated with fluconazole Continue wound care Appreciate general surgery and wound care. (3) Chronic osteomyelitis of sacrum: Plan: coccyx intra-op culture from 07/31 with MSSA, pseudomonas, providencia, and anaerobes later sacral bone biopsy 08/24 with VRE and 2-week course of linezolid added (end 09/12) per Recommendation by infectious disease, patient has completed 6 weeks of IV abx with concurrent wound vac. Mainly pip-tazo and cefepime (metronidazole added ) 07/31/23 09/10/23 (4) Hospital acquired PNA: Plan: LLL -- resolved 2nd pseudomonas infection Chronology of events 08/01 - cxr with worsening infiltrates on left 08/03 - collapse LLL 08/03 - bronchoscopy by Dr Blancas with mucous plugging found in the left-sided bronchial tree s/p removal; 08/07 - s/p bronch by Dr Lock - minimal secretions LLL, no plugs; thick secretions in trach, however 08/09 - bronch cx - pseudomonas, intermediate resistance 08/09 - changed zosyn to cefepime 08/22 - cxr - ongoing LLL infiltrates/effusion - similar to previous imaging has remained stable from pulmonary standpoint last few weeks trach routinely changed to cuffless by Dr. Street 09/09 saline and mucomyst nebs changed to PRN after discussion with RT May repeat chest x-ray (5) Transaminitis: Plan: resolved LFTs wnl (6) Severe protein-calorie malnutrition: Plan: improving slowly BMI now 20 (had been 18-19) still with diffuse sarcopenia / muscle wasting present most recent nutrition recommendations: (7) History of DVT (deep vein thrombosis): Plan: records reviewed -- RLE DVT discovered 11/2022 Had been on Eliquis 5mg BID since 12/12/22 Thus completed 6+ months of Rx dose reduced to 2.5mg BID (8) History of nontraumatic rupture of cerebral aneurysm: Plan: Patient is nonverbal at baseline with chronic contractures in all 4 extremities, has eye opening, roving eye movements, grimacing, sleep-wake cycles. Acquired quadriplegia CT head shows encephalomalacia and good shunt placement Ry suffered a ruptured brain aneurysm and SAH 08/2022 Had craniotomy and evacuation. skull fragment was reimplanted in November per family. Had a MANAGEMENT CONSULTANT shunt placement at [facility]. Has history of severe autonomic dysfunction / paroxysmal sympathetic hyperactivity / autonomic storm which is controlled on medications and has the potential to be confused with sepsis. Cont complex regimen of meds for this issue (dantrolene, bromocriptine, scop patch, etc) (9) Autonomic dysfunction: Plan: Continue dantrolene and bromocriptine Continue gabapentin and baclofen for spasticity (10) Cardiomyopathy: Plan: last echo 07/11/23 - low normal EF 50-55% remains compensated, cont beta joon has not required any diuretic (11) Tracheostomy status: Plan: cont local trach care o2 requirement -- 6 to 7 liters 09/09 trach changed for 8.0 uncuffed tracheostomy tube by Dr. Street (12) Candidiasis: Plan: multiple locations - back/buttocks, groin, R axillary region cont anti-yeast topical powders completed 7d diflucan 09/11 with significant improvement Plan 09/13 completed 30-day med review and renewed meds, next due 10/11 Recent history (resolved issues): #Bacteremias 06/2023, completed treatment and resolved -- sources included: SSTI sacral decubitus ulcer, Group C strep bacteremia - source thought 2nd to sacral wound, Coag neg staph bacteremia - contaminant vs bacteremia Corynebacterium bacteremia #Bilateral calf wounds, have healed. Ear wound, has healed. #Pneumatosis coli seen on CT abdomen mid Jun 2023. Evaluated by General surgery last admission. since no surgical abdomen/peritonitis/symptoms no Rx recommended during that admission etiology of the CT findings was uncertain. abdominal exam remains benign / soft day-to-day, tolerates TF well. discharge has been significantly delayed because lack of accepting facility which can meet his care needs debbie changed 09/05 trach changed 09/09 Still looking for placement for him. 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 No JVD. No bruits. Thyroid normal, trachea midline, no adenopathy. Heart--normal S1 and S2. No murmurs, rubs or gallops. Lungs-- reduced air entry auscultation Abdomen--normal bowel sounds and soft. Extremities--no cyanosis or clubbing. No edema. Contracted extremities Dermatologic--normal skin turgor, normal color, no abnormal lymph nodes, no rash. Neurologic--unable to fully assess Rheumatologic--unable to fully assess. Psychiatric--unable to fully assess Results & Data Results & Data Vital Signs (Past 12 Hours) Vital Signs Temp Pulse Resp BP Pulse Ox O2 Del Method O2 Flow Rate 09/18/23 08:08 Trach Collar 6 09/18/23 07:20 98.2 F 77 16 107/72 97 Trach Collar 6 FiO2 09/18/23 08:08 28 09/18/23 07:20 PG Care Time/CCT Total # of Minutes Spent Total Time Spent with Patient: Total time spent is greater than 50% in coordination of care (as documented) at patient's floor/unit and/or counseling patient: Coding Level of Care Code 38290 SUB INP/OBS CARE 2/35MIN Diagnoses Tachycardia R00.0 Decubitus ulcer of sacral region, stage 4 L89.154 Chronic osteomyelitis of sacrum M86.68 Hospital acquired PNA J18.9; Y95 Transaminitis R74.01 Severe protein-calorie malnutrition E43 History of DVT (deep vein thrombosis) Z86.718 History of nontraumatic rupture of cerebral aneurysm Z86.79 Autonomic dysfunction G90.9 Cardiomyopathy I42.9 Tracheostomy status Z93.0 Candidiasis B37.9 Time Spent (min) 35
--- NOTE | 2023-09-18 14:15 | XRay Report ---
XR chest 1V portable HISTORY: Left lower lobe pneumonia. follow up COMPARISON: Chest 08/23/2023. FINDINGS: Tracheostomy tube appears in good position. There is a left-sided shunt catheter. The visua lized tubing appears intact. No pneumothorax. There are low lung volumes. The small left pleural effu laron has resolved. Small patchy densities at the left lung base have also improved. The right lung is clear. No evidence for pulmonary edema. The heart is normal in size. No acute fractures. IMPRESSION: Improved aeration within the left lung base with a small density remaining. A 1 month chest x-ray fol low-up recommended to ensure complete resolution. ACT 112: Negative or not required by law. Electronically signed by: Víctor Cox M.D. 09/18/2023 2:14 PM
[2023-09-19 06:21] LABS: Hematocrit (blood only) 34.9 % (42.0-52.0); Hemoglobin 10.8 g/dl (14.0-18.0); Mean Corpuscular Hemoglobin 29.8 pg (25.0-34.0); Mean Corpuscular Hgb Conc 30.9 g/dL (32.0-36.0); Mean Corpuscular Volume 96.4 fL (80.0-100.0); Mean Platelet Volume 11.6 fL (9.4-12.4); Platelet Count 243 K/uL (130-400); RDW Coefficient of Variation 15.5 % (11.5-14.5); RDW Standard Deviation 54.4 fL (36.4-46.3); Red Blood Count 3.62 M/uL (4.70-6.10); White Blood Count 5.57 K/ul (4.8-10.8)
[2023-09-19 06:40] LABS: Anion Gap 9 (3-11); BUN Creatinine Ratio 48.9 (10-20); Blood Urea Nitrogen 22 mg/dl (6-23); Calcium 9.7 mg/dl (8.6-10.3); Carbon Dioxide 29 mmol/L (21-32); Chloride 102 mmol/L (98-107); Est GFR (African American) > 150.0 ml/min; Est GFR (Non-African American) 148.7 ml/min; Glucose 114 mg/dl (70-99(Fasting)); Sodium 140 mmol/L (136-145)
--- NOTE | 2023-09-19 11:38 | Hospitalist Progress Note ---
Date of Service September 19, 2023 Assessment & Plan (1) Tachycardia: Plan: Now resolved (2) Decubitus ulcer of sacral region, stage 4: Plan: Stage IV sacral decubitus ulcer, present on admission s/p debridement in the OR by Dr Issa on 07/31/23 Wound vac placed on 08/01 Wound vac then changed to a pulsating irrigation woundvac on 08/21/23 due to lack of improvement and worsening appearance of his ulcer he underwent repeat debridement in the OR by Dr Dorsey on 08/25/23 on 09/04 the woundvac was removed due to candidiasis (extensive) in sacral area, treated with fluconazole Continue wound care, I was there today 09/18 during wound care Appreciate general surgery and wound care. (3) Chronic osteomyelitis of sacrum: Plan: coccyx intra-op culture from 07/31 with MSSA, pseudomonas, providencia, and anaerobes later sacral bone biopsy 08/24 with VRE and 2-week course of linezolid added (end 09/12) per Recommendation by infectious disease, patient has completed 6 weeks of IV abx with concurrent wound vac. Mainly pip-tazo and cefepime (metronidazole added ) 07/31/23 09/10/23 (4) Hospital acquired PNA: Plan: LLL -- resolved 2nd pseudomonas infection Chronology of events 08/01 - cxr with worsening infiltrates on left 08/03 - collapse LLL 08/03 - bronchoscopy by Dr Blancas with mucous plugging found in the left-sided bronchial tree s/p removal; 08/07 - s/p bronch by Dr Lock - minimal secretions LLL, no plugs; thick secretions in trach, however 08/09 - bronch cx - pseudomonas, intermediate resistance 08/09 - changed zosyn to cefepime 08/22 - cxr - ongoing LLL infiltrates/effusion - similar to previous imaging 09/17- cxray shows improved aeration within the left lung base has remained stable from pulmonary standpoint last few weeks trach routinely changed to cuffless by Dr. Street 09/09 saline and mucomyst nebs changed to PRN after discussion with RT Repeat chest x-ray done on 09/17 showed improved aeration within the left lung base. A 1 month follow-up is recommended (5) Transaminitis: Plan: resolved LFTs wnl (6) Severe protein-calorie malnutrition: Plan: improving slowly BMI now 20 (had been 18-19) still with diffuse sarcopenia / muscle wasting present most recent nutrition recommendations: (7) History of DVT (deep vein thrombosis): Plan: records reviewed -- RLE DVT discovered 11/2022 Had been on Eliquis 5mg BID since 12/12/22 Thus completed 6+ months of Rx dose reduced to 2.5mg BID (8) History of nontraumatic rupture of cerebral aneurysm: Plan: Patient is nonverbal at baseline with chronic contractures in all 4 extremities, has eye opening, roving eye movements, grimacing, sleep-wake cycles. Acquired quadriplegia CT head shows encephalomalacia and good shunt placement Ry suffered a ruptured brain aneurysm and SAH 08/2022 Had craniotomy and evacuation. skull fragment was reimplanted in November per family. Had a RD MANAGER shunt placement at [facility]. Has history of severe autonomic dysfunction / paroxysmal sympathetic hyperactivity / autonomic storm which is controlled on medications and has the potential to be confused with sepsis. Cont complex regimen of meds for this issue (dantrolene, bromocriptine, scop patch, etc) (9) Autonomic dysfunction: Plan: Continue dantrolene and bromocriptine Continue gabapentin and baclofen for spasticity (10) Cardiomyopathy: Plan: last echo 07/11/23 - low normal EF 50-55% remains compensated, cont beta joon has not required any diuretic (11) Tracheostomy status: Plan: cont local trach care o2 requirement -- 6 to 7 liters 09/09 trach changed for 8.0 uncuffed tracheostomy tube by Dr. Street (12) Candidiasis: Plan: multiple locations - back/buttocks, groin, R axillary region cont anti-yeast topical powders completed 7d diflucan 09/11 with significant improvement Plan 09/13 completed 30-day med review and renewed meds, next due 10/11 Recent history (resolved issues): #Bacteremias 06/2023, completed treatment and resolved -- sources included: SSTI sacral decubitus ulcer, Group C strep bacteremia - source thought 2nd to sacral wound, Coag neg staph bacteremia - contaminant vs bacteremia Corynebacterium bacteremia #Bilateral calf wounds, have healed. Ear wound, has healed. #Pneumatosis coli seen on CT abdomen mid Jun 2023. Evaluated by General surgery last admission. since no surgical abdomen/peritonitis/symptoms no Rx recommended during that admission etiology of the CT findings was uncertain. abdominal exam remains benign / soft day-to-day, tolerates TF well. discharge has been significantly delayed because lack of accepting facility which can meet his care needs lewis changed 09/05 momo changed 09/09 Still looking for placement for him. 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 No JVD. No bruits. Thyroid normal, trachea midline, no adenopathy. Heart--normal S1 and S2. No murmurs, rubs or gallops. Lungs-- reduced air entry auscultation Abdomen--normal bowel sounds and soft. Extremities--no cyanosis or clubbing. No edema. Contracted extremities Dermatologic--normal skin turgor, normal color, no abnormal lymph nodes, no rash. Neurologic--unable to fully assess Rheumatologic--unable to fully assess. Psychiatric--unable to fully assess Results & Data Results & Data Vital Signs (Past 12 Hours) Vital Signs Temp Pulse Resp BP Pulse Ox O2 Del Method O2 Flow Rate 09/19/23 07:55 98.1 F 65 16 102/69 97 Trach Collar 6 PG Care Time/CCT Total # of Minutes Spent Total Time Spent with Patient: Total time spent is greater than 50% in coordination of care (as documented) at patient's floor/unit and/or counseling patient: Coding Level of Care Code 16287 SUB INP/OBS CARE 2/35MIN Diagnoses Tachycardia R00.0 Decubitus ulcer of sacral region, stage 4 L89.154 Chronic osteomyelitis of sacrum M86.68 Hospital acquired PNA J18.9; Y95 Transaminitis R74.01 Severe protein-calorie malnutrition E43 History of DVT (deep vein thrombosis) Z86.718 History of nontraumatic rupture of cerebral aneurysm Z86.79 Autonomic dysfunction G90.9 Cardiomyopathy I42.9 Tracheostomy status Z93.0 Candidiasis B37.9 Time Spent (min) 35
--- NOTE | 2023-09-20 10:26 | Hospitalist Progress Note ---
Date of Service September 20, 2023 Assessment & Plan (1) Tachycardia: Plan: Now resolved (2) Decubitus ulcer of sacral region, stage 4: Plan: Stage IV sacral decubitus ulcer, present on admission s/p debridement in the OR by Dr Issa on 07/31/23 Wound vac placed on 08/01 Wound vac then changed to a pulsating irrigation woundvac on 08/21/23 due to lack of improvement and worsening appearance of his ulcer he underwent repeat debridement in the OR by Dr Dorsey on 08/25/23 on 09/04 the woundvac was removed due to candidiasis (extensive) in sacral area, treated with fluconazole Continue wound care, Patient has some blisters around the sacral area, this could be due to some allergy from the dressing material or the diaper Appreciate general surgery and wound care. (3) Chronic osteomyelitis of sacrum: Plan: coccyx intra-op culture from 07/31 with MSSA, pseudomonas, providencia, and anaerobes later sacral bone biopsy 08/24 with VRE and 2-week course of linezolid added (end 09/12) per Recommendation by infectious disease, patient has completed 6 weeks of IV abx with concurrent wound vac. Mainly pip-tazo and cefepime (metronidazole added ) 07/31/23 09/10/23 (4) Hospital acquired PNA: Plan: LLL -- resolved 2nd pseudomonas infection Chronology of events 08/01 - cxr with worsening infiltrates on left 08/03 - collapse LLL 08/03 - bronchoscopy by Dr Blancas with mucous plugging found in the left-sided bronchial tree s/p removal; 08/07 - s/p bronch by Dr Lock - minimal secretions LLL, no plugs; thick secretions in trach, however 08/09 - bronch cx - pseudomonas, intermediate resistance 08/09 - changed zosyn to cefepime 08/22 - cxr - ongoing LLL infiltrates/effusion - similar to previous imaging 09/17- cxray shows improved aeration within the left lung base has remained stable from pulmonary standpoint last few weeks trach routinely changed to cuffless by Dr. Street 09/09 saline and mucomyst nebs changed to PRN after discussion with RT Repeat chest x-ray done on 09/17 showed improved aeration within the left lung base. A 1 month follow-up is recommended (5) Transaminitis: Plan: resolved LFTs wnl (6) Severe protein-calorie malnutrition: Plan: improving slowly BMI now 20 (had been 18-19) still with diffuse sarcopenia / muscle wasting present most recent nutrition recommendations: (7) History of DVT (deep vein thrombosis): Plan: records reviewed -- RLE DVT discovered 11/2022 Had been on Eliquis 5mg BID since 12/12/22 Thus completed 6+ months of Rx dose reduced to 2.5mg BID (8) History of nontraumatic rupture of cerebral aneurysm: Plan: Patient is nonverbal at baseline with chronic contractures in all 4 extremities, has eye opening, roving eye movements, grimacing, sleep-wake cycles. Acquired quadriplegia CT head shows encephalomalacia and good shunt placement Ry suffered a ruptured brain aneurysm and SAH 08/2022 Had craniotomy and evacuation. skull fragment was reimplanted in November per family. Had a [employer] shunt placement at [facility]. Has history of severe autonomic dysfunction / paroxysmal sympathetic hyperactivity / autonomic storm which is controlled on medications and has the potential to be confused with sepsis. Cont complex regimen of meds for this issue (dantrolene, bromocriptine, scop patch, etc) (9) Autonomic dysfunction: Plan: Continue dantrolene and bromocriptine Continue gabapentin and baclofen for spasticity (10) Cardiomyopathy: Plan: last echo 07/11/23 - low normal EF 50-55% remains compensated, cont beta joon has not required any diuretic (11) Tracheostomy status: Plan: cont local trach care o2 requirement -- 6 to 7 liters 09/09 trach changed for 8.0 uncuffed tracheostomy tube by Dr. Street (12) Candidiasis: Plan: multiple locations - back/buttocks, groin, R axillary region cont anti-yeast topical powders completed 7d diflucan 09/11 with significant improvement Plan 09/13 completed 30-day med review and renewed meds, next due 10/11 Recent history (resolved issues): #Bacteremias 06/2023, completed treatment and resolved -- sources included: SSTI sacral decubitus ulcer, Group C strep bacteremia - source thought 2nd to sacral wound, Coag neg staph bacteremia - contaminant vs bacteremia Corynebacterium bacteremia #Bilateral calf wounds, have healed. Ear wound, has healed. #Pneumatosis coli seen on CT abdomen mid Jun 2023. Evaluated by General surgery last admission. since no surgical abdomen/peritonitis/symptoms no Rx recommended during that admission etiology of the CT findings was uncertain. abdominal exam remains benign / soft day-to-day, tolerates TF well. discharge has been significantly delayed because lack of accepting facility which can meet his care needs lewis changed 09/05 trach changed 09/09 Still looking for placement for him. 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 No JVD. No bruits. Thyroid normal, trachea midline, no adenopathy. Heart--normal S1 and S2. No murmurs, rubs or gallops. Lungs-- reduced air entry auscultation Abdomen--normal bowel sounds and soft. Extremities--no cyanosis or clubbing. No edema. Contracted extremities Dermatologic--normal skin turgor, normal color, no abnormal lymph nodes, no rash. Neurologic--unable to fully assess Rheumatologic--unable to fully assess. Psychiatric--unable to fully assess Results & Data Results & Data Vital Signs (Past 12 Hours) Vital Signs Temp Pulse Resp BP Pulse Ox O2 Del Method 09/20/23 09:50 Trach Collar 09/20/23 07:29 98.4 F 68 16 109/74 100 Room Air PG Care Time/CCT Total # of Minutes Spent Total Time Spent with Patient: Total time spent is greater than 50% in coordination of care (as documented) at patient's floor/unit and/or counseling patient: Coding Level of Care Code 24876 SUB INP/OBS CARE 2/35MIN Diagnoses Tachycardia R00.0 Decubitus ulcer of sacral region, stage 4 L89.154 Chronic osteomyelitis of sacrum M86.68 Hospital acquired PNA J18.9; Y95 Transaminitis R74.01 Severe protein-calorie malnutrition E43 History of DVT (deep vein thrombosis) Z86.718 History of nontraumatic rupture of cerebral aneurysm Z86.79 Autonomic dysfunction G90.9 Cardiomyopathy I42.9 Tracheostomy status Z93.0 Candidiasis B37.9 Time Spent (min) 35
[2023-09-21 06:15] LABS: Hemoglobin 10.8 g/dl (14.0-18.0); Mean Corpuscular Hemoglobin 30.5 pg (25.0-34.0); Mean Corpuscular Hgb Conc 31.8 g/dL (32.0-36.0); Mean Platelet Volume 11.9 fL (9.4-12.4); Platelet Count 243 K/uL (130-400); RDW Coefficient of Variation 15.3 % (11.5-14.5); RDW Standard Deviation 54.1 fL (36.4-46.3); Red Blood Count 3.54 M/uL (4.70-6.10); White Blood Count 6.85 K/ul (4.8-10.8)
[2023-09-21 07:19] LABS: Anion Gap 8 (3-11); BUN Creatinine Ratio 48.8 (10-20); Blood Urea Nitrogen 20 mg/dl (6-23); Calcium 9.4 mg/dl (8.6-10.3); Carbon Dioxide 30 mmol/L (21-32); Chloride 101 mmol/L (98-107); Creatinine Clr Calc Pharmacy 197.5 ml/min; Est GFR (African American) > 150.0 ml/min; Est GFR (Non-African American) > 150.0 ml/min; Glucose 120 mg/dl (70-99(Fasting)); Sodium 139 mmol/L (136-145)
--- NOTE | 2023-09-21 11:01 | Hospitalist Progress Note ---
Date of Service September 21, 2023 Assessment & Plan (1) Tachycardia: Plan: Now resolved (2) Decubitus ulcer of sacral region, stage 4: Plan: Stage IV sacral decubitus ulcer, present on admission s/p debridement in the OR by Dr Issa on 07/31/23 Wound vac placed on 08/01 Wound vac then changed to a pulsating irrigation woundvac on 08/21/23 due to lack of improvement and worsening appearance of his ulcer he underwent repeat debridement in the OR by Dr Dorsey on 08/25/23 on 09/04 the woundvac was removed due to candidiasis (extensive) in sacral area, treated with fluconazole. Wound VAC has been reinstituted on 09/18, draining purulent material Continue wound care, Patient has some blisters around the sacral area, this could be due to some allergy from the dressing material or the diaper Appreciate general surgery and wound care. (3) Chronic osteomyelitis of sacrum: Plan: coccyx intra-op culture from 07/31 with MSSA, pseudomonas, providencia, and anaerobes later sacral bone biopsy 08/24 with VRE and 2-week course of linezolid added (end 09/12) per Recommendation by infectious disease, patient has completed 6 weeks of IV abx with concurrent wound vac. Mainly pip-tazo and cefepime (metronidazole added ) 07/31/23 09/10/23 (4) Hospital acquired PNA: Plan: LLL -- resolved 2nd pseudomonas infection Chronology of events 08/01 - cxr with worsening infiltrates on left 08/03 - collapse LLL 08/03 - bronchoscopy by Dr Blancas with mucous plugging found in the left-sided bronchial tree s/p removal; 08/07 - s/p bronch by Dr Lock - minimal secretions LLL, no plugs; thick secretions in trach, however 08/09 - bronch cx - pseudomonas, intermediate resistance 08/09 - changed zosyn to cefepime 08/22 - cxr - ongoing LLL infiltrates/effusion - similar to previous imaging 09/17- cxray shows improved aeration within the left lung base has remained stable from pulmonary standpoint last few weeks trach routinely changed to cuffless by Dr. Street 09/09 saline and mucomyst nebs changed to PRN after discussion with RT Repeat chest x-ray done on 09/17 showed improved aeration within the left lung base. A 1 month follow-up is recommended (5) Transaminitis: Plan: resolved LFTs wnl (6) Severe protein-calorie malnutrition: Plan: improving slowly BMI now 20 (had been 18-19) still with diffuse sarcopenia / muscle wasting present most recent nutrition recommendations: (7) History of DVT (deep vein thrombosis): Plan: records reviewed -- RLE DVT discovered 11/2022 Had been on Eliquis 5mg BID since 12/12/22 Thus completed 6+ months of Rx dose reduced to 2.5mg BID (8) History of nontraumatic rupture of cerebral aneurysm: Plan: Patient is nonverbal at baseline with chronic contractures in all 4 extremities, has eye opening, roving eye movements, grimacing, sleep-wake cycles. Acquired quadriplegia CT head shows encephalomalacia and good shunt placement Ry suffered a ruptured brain aneurysm and SAH 08/2022 Had craniotomy and evacuation. skull fragment was reimplanted in November per family. Had a [employer]TONHOLE [employer]KER shunt placement at [facility]. Has history of severe autonomic dysfunction / paroxysmal sympathetic hyperactivity / autonomic storm which is controlled on medications and has the potential to be confused with sepsis. Cont complex regimen of meds for this issue (dantrolene, bromocriptine, scop patch, etc) (9) Autonomic dysfunction: Plan: Continue dantrolene and bromocriptine Continue gabapentin and baclofen for spasticity (10) Cardiomyopathy: Plan: last echo 07/11/23 - low normal EF 50-55% remains compensated, cont beta joon has not required any diuretic (11) Tracheostomy status: Plan: cont local trach care o2 requirement -- 6 to 7 liters 09/09 trach changed for 8.0 uncuffed tracheostomy tube by Dr. Street (12) Candidiasis: Plan: multiple locations - back/buttocks, groin, R axillary region cont anti-yeast topical powders completed 7d diflucan 09/11 with significant improvement Plan 09/13 completed 30-day med review and renewed meds, next due 10/11 Recent history (resolved issues): #Bacteremias 06/2023, completed treatment and resolved -- sources included: SSTI sacral decubitus ulcer, Group C strep bacteremia - source thought 2nd to sacral wound, Coag neg staph bacteremia - contaminant vs bacteremia Corynebacterium bacteremia #Bilateral calf wounds, have healed. Ear wound, has healed. #Pneumatosis coli seen on CT abdomen mid Jun 2023. Evaluated by General surgery last admission. since no surgical abdomen/peritonitis/symptoms no Rx recommended during that admission etiology of the CT findings was uncertain. abdominal exam remains benign / soft day-to-day, tolerates TF well. discharge has been significantly delayed because lack of accepting facility which can meet his care needs lewis changed 09/05 trach changed 09/09 Still looking for placement for him. 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 No JVD. No bruits. Thyroid normal, trachea midline, no adenopathy. Heart--normal S1 and S2. No murmurs, rubs or gallops. Lungs-- reduced air entry auscultation Abdomen--normal bowel sounds and soft. Extremities--no cyanosis or clubbing. No edema. Contracted extremities Dermatologic--normal skin turgor, normal color, no abnormal lymph nodes, no rash. Neurologic--unable to fully assess Rheumatologic--unable to fully assess. Psychiatric--unable to fully assess Results & Data Results & Data Vital Signs (Past 12 Hours) Vital Signs Temp Pulse Resp BP Pulse Ox O2 Del Method O2 Flow Rate 09/21/23 09:33 Trach Collar 6 09/21/23 07:16 97.9 F 64 16 102/66 100 Trach Collar 6 PG Care Time/CCT Total # of Minutes Spent Total Time Spent with Patient: Total time spent is greater than 50% in coordination of care (as documented) at patient's floor/unit and/or counseling patient: Coding Level of Care Code 44509 SUB INP/OBS CARE 2/35MIN Diagnoses Tachycardia R00.0 Decubitus ulcer of sacral region, stage 4 L89.154 Chronic osteomyelitis of sacrum M86.68 Hospital acquired PNA J18.9; Y95 Transaminitis R74.01 Severe protein-calorie malnutrition E43 History of DVT (deep vein thrombosis) Z86.718 History of nontraumatic rupture of cerebral aneurysm Z86.79 Autonomic dysfunction G90.9 Cardiomyopathy I42.9 Tracheostomy status Z93.0 Candidiasis B37.9 Time Spent (min) 35
--- NOTE | 2023-09-22 14:43 | Hospitalist Progress Note ---
Date of Service September 22, 2023 Assessment & Plan (1) Tachycardia: Plan: Sinus tachycardia present on admission now resolved (2) Decubitus ulcer of sacral region, stage 4: Plan: Present on admission. s/p debridement in the OR by Dr Issa on 07/31/23. Wound vac placed on 08/01. Wound vac then changed to a pulsating irrigation woundvac on 08/21/23. Due to lack of improvement and worsening appearance of his ulcer he underwent repeat debridement in the OR by Dr Dorsey on 08/25/23. On 09/04 the woundvac was removed due to candidiasis (extensive) in sacral area. Treated with fluconazole. Wound VAC was replaced on 09/18, draining purulent material. Continue wound care. Appreciate general surgery and wound care assistance. (3) Chronic osteomyelitis of sacrum: Plan: intra-op culture from 07/31 with MSSA, pseudomonas, providencia, and anaerobes. Sacral bone biopsy 08/24 with VRE and 2-week course of linezolid completed as of end 09/12. Per infectious disease, patient has completed 6 weeks of IV abx with concurrent wound vac. Mainly pip-tazo and cefepime (metronidazole added ) from 07/31/23 09/10/23 (4) Hospital acquired PNA: Plan: LLL -- resolved. Due to pseudomonas infection. Chronology of events: 08/01 - cxr with worsening infiltrates on left 08/03 - collapse LLL 08/03 - bronchoscopy by Dr Blancas with mucous plugging found in the left-sided bronchial tree s/p removal; 08/07 - s/p bronch by Dr Lock - minimal secretions LLL, no plugs; thick secretions in trach, however 08/09 - bronch cx - pseudomonas, intermediate resistance 08/09 - changed zosyn to cefepime 08/22 - cxr - ongoing LLL infiltrates/effusion - similar to previous imaging 09/17- cxr shows improved aeration within the left lung base trach routinely changed to cuffless by Dr. Street 09/09 Repeat chest x-ray done on 09/17 showed improved aeration within the left lung base. A 1 month follow-up is recommended (5) Transaminitis: Plan: Present on admission. Now resolved (6) Severe protein-calorie malnutrition: Plan: Chronic. Improving slowly. BMI now 20 (had been 18-19). Continue current nutrition recommendations (7) History of DVT (deep vein thrombosis): Plan: RLE DVT discovered 11/2022. Had been on Eliquis 5mg BID since 12/12/22. Eliquis dosage has been reduced to 2.5mg BID (8) History of nontraumatic rupture of cerebral aneurysm: Plan: Patient is nonverbal at baseline with chronic contractures in all 4 extremities, has eye opening, roving eye movements, grimacing, sleep-wake cycles. Functional quadriplegia. CT head shows encephalomalacia and good shunt placement . He unfortunately suffered a ruptured brain aneurysm and SAH 08/2022. Status post craniotomy and evacuation. He has a ventriculoperitoneal shunt in place. Known resultant severe autonomic dysfunction / paroxysmal sympathetic hyperactivity / autonomic storm which is controlled on medications and has the potential to be confused with sepsis. Continue current medical management (9) Autonomic dysfunction: Plan: Stable. Continue dantrolene and bromocriptine. Continue gabapentin and baclofen for spasticity (10) Cardiomyopathy: Plan: last echo 07/11/23 - low normal EF 50-55%. No acute current problems. Continue beta-joon therapy. (11) Tracheostomy status: Plan: cont local trach care. On 09/09, trach changed to 8.0 uncuffed tracheostomy tube by Dr. Street (12) Candidiasis: Plan: multiple locations - back/buttocks, groin, R axillary region. Cont anti-yeast topical powders. Completed 7d diflucan 09/11 with significant improvement Plan Placement pending. Recent history (resolved issues): #Bacteremias 06/2023, completed treatment and resolved -- sources included: SSTI sacral decubitus ulcer, Group C strep bacteremia - source thought 2nd to sacral wound, Coag neg staph bacteremia - contaminant vs bacteremia Corynebacterium bacteremia #Bilateral calf wounds, have healed. Ear wound, has healed. #Pneumatosis coli seen on CT abdomen mid Jun 2023. Evaluated by General surgery last admission. since no surgical abdomen/peritonitis/symptoms no Rx recommended during that admission etiology of the CT findings was uncertain. abdominal exam remains benign / soft day-to-day, tolerates TF well. discharge has been significantly delayed because lack of accepting facility which can meet his care needs lewis changed 09/05 trach changed 09/09 Admission and Anticipated Discharge Date Admission Date: July 18, 2023 Subjective The patient remains unresponsive. His mother is at the bedside. Placement proceedings are underway, possibly at the [place] [facility]. Oxygen saturation is 98% on 6 L. Oxygen level will be down titrated as tolerated to keep saturation in the 90 to 92% range. Chest x-ray done on September 17 looked better. Review of Systems 2 Review of Systems: The patient is unable to answer any questions regarding review of systems Physical Exam 2 Physical Exam: General-unresponsive. No fever HEENT-depressed right temporal defect from previous surgery Neck-no lymphadenopathy or thyromegaly, trachea midline Chest-scattered bilateral rhonchi. No wheezing. Cardiac-regular rate and rhythm, normal S1 and S2 Abdomen-normal bowel sounds, no hepatosplenomegaly Extremities-no cyanosis, clubbing, or edema Neuro-unresponsive. Cannot assess Psych-unresponsive. Cannot assess Results & Data Results & Data Vital Signs (Past 12 Hours) Vital Signs Temp Pulse Resp BP Pulse Ox O2 Del Method O2 Flow Rate 09/22/23 07:30 Trach Collar 6 09/22/23 07:08 37.1 C 75 14 108/70 98 Room Air FiO2 09/22/23 07:30 28 09/22/23 07:08 Laboratory Results 09/21/23 05:49 09/21/23 05:49 PG Care Time/CCT Total # of Minutes Spent Total Time Spent with Patient: Total time spent is greater than 50% in coordination of care (as documented) at patient's floor/unit and/or counseling patient: Coding Level of Care Code 90288 SUB INP/OBS CARE 3/50MIN Diagnoses Tachycardia R00.0 Decubitus ulcer of sacral region, stage 4 L89.154 Chronic osteomyelitis of sacrum M86.68 Hospital acquired PNA J18.9; Y95 Transaminitis R74.01 Severe protein-calorie malnutrition E43 History of DVT (deep vein thrombosis) Z86.718 History of nontraumatic rupture of cerebral aneurysm Z86.79 Autonomic dysfunction G90.9 Cardiomyopathy I42.9 Tracheostomy status Z93.0 Candidiasis B37.9
[2023-09-23 07:00] LABS: Alanine Aminotransferase 9 U/L (7-52); Albumin Globulin Ratio 1.2 (0.9-2); Albumin Level 3.9 gm/dl (3.4-5.0); Alkaline Phosphatase 64 U/L (34-104); Anion Gap 8 (3-11); Aspartate Aminotransferase 9 U/L (13-39); BUN Creatinine Ratio 42.5 (10-20); Bilirubin,Total 0.4 mg/dl (0.2-1.0); Blood Urea Nitrogen 17 mg/dl (6-23); Calcium 9.6 mg/dl (8.6-10.3); Carbon Dioxide 29 mmol/L (21-32); Chloride 102 mmol/L (98-107); Creatinine Clr Calc Pharmacy 195.4 ml/min; Est GFR (African American) > 150.0 ml/min; Est GFR (Non-African American) > 150.0 ml/min; Globulin 3.2 gm/dl (2.5-4.0); Glucose 113 mg/dl (70-99(Fasting)); Sodium 139 mmol/L (136-145); Total Protein 7.1 gm/dl (6.0-8.3)
--- NOTE | 2023-09-23 15:31 | Hospitalist Progress Note ---
Date of Service September 23, 2023 Assessment & Plan (1) Tachycardia: Plan: Sinus tachycardia present on admission now resolved (2) Decubitus ulcer of sacral region, stage 4: Plan: Present on admission. s/p debridement in the OR by Dr Issa on 07/31/23. Wound vac placed on 08/01. Wound vac then changed to a pulsating irrigation woundvac on 08/21/23. Due to lack of improvement and worsening appearance of his ulcer he underwent repeat debridement in the OR by Dr Dorsey on 08/25/23. On 09/04 the woundvac was removed due to candidiasis (extensive) in sacral area. Treated with fluconazole. Wound VAC was replaced on 09/18, draining purulent material. Continue wound care. Appreciate general surgery and wound care assistance. (3) Chronic osteomyelitis of sacrum: Plan: intra-op culture from 07/31 with MSSA, pseudomonas, providencia, and anaerobes. Sacral bone biopsy 08/24 with VRE and 2-week course of linezolid completed as of end 09/12. Per infectious disease, patient has completed 6 weeks of IV abx with concurrent wound vac. Mainly pip-tazo and cefepime (metronidazole added ) from 07/31/23 09/10/23 (4) Hospital acquired PNA: Plan: LLL -- resolved. Due to pseudomonas infection. Chronology of events: 08/01 - cxr with worsening infiltrates on left 08/03 - collapse LLL 08/03 - bronchoscopy by Dr Blancas with mucous plugging found in the left-sided bronchial tree s/p removal; 08/07 - s/p bronch by Dr Lock - minimal secretions LLL, no plugs; thick secretions in trach, however 08/09 - bronch cx - pseudomonas, intermediate resistance 08/09 - changed zosyn to cefepime 08/22 - cxr - ongoing LLL infiltrates/effusion - similar to previous imaging 09/17- cxr shows improved aeration within the left lung base trach routinely changed to cuffless by Dr. Street 09/09 Repeat chest x-ray done on 09/17 showed improved aeration within the left lung base. A 1 month follow-up is recommended (5) Transaminitis: Plan: Present on admission. Now resolved (6) Severe protein-calorie malnutrition: Plan: Chronic. Improving slowly. BMI now 20 (had been 18-19). Continue current nutrition recommendations (7) History of DVT (deep vein thrombosis): Plan: RLE DVT discovered 11/2022. Had been on Eliquis 5mg BID since 12/12/22. Eliquis dosage has been reduced to 2.5mg BID (8) History of nontraumatic rupture of cerebral aneurysm: Plan: Patient is nonverbal at baseline with chronic contractures in all 4 extremities, has eye opening, roving eye movements, grimacing, sleep-wake cycles. Functional quadriplegia. CT head shows encephalomalacia and good shunt placement . He unfortunately suffered a ruptured brain aneurysm and SAH 08/2022. Status post craniotomy and evacuation. He has a ventriculoperitoneal shunt in place. Known resultant severe autonomic dysfunction / paroxysmal sympathetic hyperactivity / autonomic storm which is controlled on medications and has the potential to be confused with sepsis. Continue current medical management (9) Autonomic dysfunction: Plan: Stable. Continue dantrolene and bromocriptine. Continue gabapentin and baclofen for spasticity (10) Cardiomyopathy: Plan: last echo 07/11/23 - low normal EF 50-55%. No acute current problems. Continue beta-joon therapy. (11) Tracheostomy status: Plan: cont local trach care. On 09/09, trach changed to 8.0 uncuffed tracheostomy tube by Dr. Street (12) Candidiasis: Plan: multiple locations - back/buttocks, groin, R axillary region. Cont anti-yeast topical powders. Completed 7d diflucan 09/11 with significant improvement Plan Placement pending. Recent history (resolved issues): #Bacteremias 06/2023, completed treatment and resolved -- sources included: SSTI sacral decubitus ulcer, Group C strep bacteremia - source thought 2nd to sacral wound, Coag neg staph bacteremia - contaminant vs bacteremia Corynebacterium bacteremia #Bilateral calf wounds, have healed. Ear wound, has healed. #Pneumatosis coli seen on CT abdomen mid Jun 2023. Evaluated by General surgery last admission. since no surgical abdomen/peritonitis/symptoms no Rx recommended during that admission etiology of the CT findings was uncertain. abdominal exam remains benign / soft day-to-day, tolerates TF well. discharge has been significantly delayed because lack of accepting facility for permanent trach patients lewis changed 09/05 trach changed 09/09 Admission and Anticipated Discharge Date Admission Date: July 18, 2023 Subjective No change in clinical status. Family member is at the bedside. Review of Systems 2 Review of Systems: The patient is unable to answer any questions regarding review of systems Physical Exam 2 Physical Exam: General-unresponsive but eyes are open. No fever HEENT-depressed right temporal defect from previous surgery Neck-no lymphadenopathy or thyromegaly, trachea midline Chest-scattered bilateral rhonchi. No wheezing. Cardiac-regular rate and rhythm, normal S1 and S2 Abdomen-normal bowel sounds, no hepatosplenomegaly Extremities-no cyanosis, clubbing, or edema Neuro-unresponsive. Cannot assess Psych-unresponsive. Cannot assess Results & Data Results & Data Vital Signs (Past 12 Hours) Vital Signs Temp Pulse Resp BP Pulse Ox O2 Del Method O2 Flow Rate 09/23/23 13:59 100 Trach Collar 4 09/23/23 07:35 Trach Collar 6 09/23/23 07:28 36.6 C 65 14 103/69 100 Trach Collar 6 Laboratory Results 09/21/23 05:49 09/23/23 05:53 PG Care Time/CCT Total # of Minutes Spent Total Time Spent with Patient: Total time spent is greater than 50% in coordination of care (as documented) at patient's floor/unit and/or counseling patient: Coding Level of Care Code 49385 SUB INP/OBS CARE 2/35MIN Diagnoses Tachycardia R00.0 Decubitus ulcer of sacral region, stage 4 L89.154 Chronic osteomyelitis of sacrum M86.68 Hospital acquired PNA J18.9; Y95 Transaminitis R74.01 Severe protein-calorie malnutrition E43 History of DVT (deep vein thrombosis) Z86.718 History of nontraumatic rupture of cerebral aneurysm Z86.79 Autonomic dysfunction G90.9 Cardiomyopathy I42.9 Tracheostomy status Z93.0 Candidiasis B37.9
[2023-09-23] MEDS: PROSOURCE NO CARB 30 ML/PKT PEG SCH (21:54)
--- NOTE | 2023-09-24 12:06 | Hospitalist Progress Note ---
Date of Service September 24, 2023 Assessment & Plan (1) Tachycardia: Plan: Sinus tachycardia present on admission has resolved (2) Decubitus ulcer of sacral region, stage 4: Plan: Present on admission. s/p debridement in the OR by Dr Issa on 07/31/23. Wound vac placed on 08/01. Wound vac then changed to a pulsating irrigation woundvac on 08/21/23. Due to lack of improvement and worsening appearance of his ulcer he underwent repeat debridement in the OR by Dr Dorsey on 08/25/23. On 09/04 the woundvac was removed due to candidiasis (extensive) in sacral area. Treated with fluconazole. Wound VAC was replaced on 09/18, draining purulent material. Continue wound care. Appreciate general surgery and wound care assistance. (3) Chronic osteomyelitis of sacrum: Plan: intra-op culture from 07/31 with MSSA, pseudomonas, providencia, and anaerobes. Sacral bone biopsy 08/24 with VRE and 2-week course of linezolid completed as of end 09/12. Per infectious disease, patient has completed 6 weeks of IV abx with concurrent wound vac. Mainly pip-tazo and cefepime (metronidazole added ) from 07/31/23 09/10/23 (4) Hospital acquired PNA: Plan: LLL -- resolved. Due to pseudomonas infection. Chronology of events: 08/01 - cxr with worsening infiltrates on left 08/03 - collapse LLL 08/03 - bronchoscopy by Dr Blancas with mucous plugging found in the left-sided bronchial tree s/p removal; 08/07 - s/p bronch by Dr Lock - minimal secretions LLL, no plugs; thick secretions in trach, however 08/09 - bronch cx - pseudomonas, intermediate resistance 08/09 - changed zosyn to cefepime 08/22 - cxr - ongoing LLL infiltrates/effusion - similar to previous imaging 09/17- cxr shows improved aeration within the left lung base trach routinely changed to cuffless by Dr. Street 09/09 Repeat chest x-ray done on 09/17 showed improved aeration within the left lung base. A 1 month follow-up is recommended (5) Transaminitis: Plan: Present on admission. Now resolved (6) Severe protein-calorie malnutrition: Plan: Chronic. Improving slowly. BMI now 20 (had been 18-19). Continue current nutrition recommendations (7) History of DVT (deep vein thrombosis): Plan: RLE DVT discovered 11/2022. Had been on Eliquis 5mg BID since 12/12/22. Eliquis dosage has been reduced to 2.5mg BID (8) History of nontraumatic rupture of cerebral aneurysm: Plan: Patient is nonverbal at baseline with chronic contractures in all 4 extremities, has eye opening, roving eye movements, grimacing, sleep-wake cycles. Functional quadriplegia. CT head shows encephalomalacia and good shunt placement . He unfortunately suffered a ruptured brain aneurysm and SAH 08/2022. Status post craniotomy and evacuation. He has a ventriculoperitoneal shunt in place. Known resultant severe autonomic dysfunction / paroxysmal sympathetic hyperactivity / autonomic storm which is controlled on medications and has the potential to be confused with sepsis. Continue current medical management (9) Autonomic dysfunction: Plan: Stable. Continue dantrolene and bromocriptine. Continue gabapentin and baclofen for spasticity (10) Cardiomyopathy: Plan: last echo 07/11/23 - low normal EF 50-55%. No acute current problems. Continue beta-joon therapy. (11) Tracheostomy status: Plan: cont local trach care. On 09/09, trach changed to 8.0 uncuffed tracheostomy tube by Dr. Street (12) Candidiasis: Plan: multiple locations - back/buttocks, groin, R axillary region. Cont anti-yeast topical powders. Completed 7d diflucan 09/11 with significant improvement Plan Placement pending. Mother refuses to consider placement in [place] since it is so far away. Recent history (resolved issues): #Bacteremias 06/2023, completed treatment and resolved -- sources included: SSTI sacral decubitus ulcer, Group C strep bacteremia - source thought 2nd to sacral wound, Coag neg staph bacteremia - contaminant vs bacteremia Corynebacterium bacteremia #Bilateral calf wounds, have healed. Ear wound, has healed. #Pneumatosis coli seen on CT abdomen mid Jun 2023. Evaluated by General surgery last admission. since no surgical abdomen/peritonitis/symptoms no Rx recommended during that admission etiology of the CT findings was uncertain. abdominal exam remains benign / soft day-to-day, tolerates TF well. discharge has been significantly delayed because lack of accepting facility for permanent trach patients lewis changed 09/05 trach changed 09/09 Admission and Anticipated Discharge Date Admission Date: July 18, 2023 Subjective No significant change in clinical status. I was informed by case management that bed is available at [facility] in [place]. I spoke to the patient's mother, Sharlene, and as expected she has refused a bed in [place] since it is so far away. Case management notified. Review of Systems 2 Review of Systems: The patient is unable to answer any questions regarding review of systems Physical Exam 2 Physical Exam: General-unresponsive but eyes are open. No fever HEENT-depressed right temporal defect from previous surgery Neck-no lymphadenopathy or thyromegaly, trachea midline Chest-scattered bilateral rhonchi. No wheezing. Cardiac-regular rate and rhythm, normal S1 and S2 Abdomen-normal bowel sounds, no hepatosplenomegaly Extremities-no cyanosis, clubbing, or edema Neuro-unresponsive. Cannot assess Psych-unresponsive. Cannot assess Results & Data Results & Data Vital Signs (Past 12 Hours) Vital Signs Temp Pulse Resp BP Pulse Ox O2 Del Method O2 Flow Rate 09/24/23 07:44 Trach Collar 4 09/24/23 07:35 36.6 C 75 15 109/70 99 Trach Collar 6 Laboratory Results 09/21/23 05:49 09/23/23 05:53 PG Care Time/CCT Total # of Minutes Spent Total Time Spent with Patient: Total time spent is greater than 50% in coordination of care (as documented) at patient's floor/unit and/or counseling patient: Coding Level of Care Code 00123 SUB INP/OBS CARE 2/35MIN Diagnoses Tachycardia R00.0 Decubitus ulcer of sacral region, stage 4 L89.154 Chronic osteomyelitis of sacrum M86.68 Hospital acquired PNA J18.9; Y95 Transaminitis R74.01 Severe protein-calorie malnutrition E43 History of DVT (deep vein thrombosis) Z86.718 History of nontraumatic rupture of cerebral aneurysm Z86.79 Autonomic dysfunction G90.9 Cardiomyopathy I42.9 Tracheostomy status Z93.0 Candidiasis B37.9
--- NOTE | 2023-09-25 14:24 | Hospitalist Progress Note ---
Date of Service September 25, 2023 Assessment & Plan (1) Tachycardia: Plan: Sinus tachycardia present on admission has resolved (2) Decubitus ulcer of sacral region, stage 4: Plan: Present on admission. s/p debridement in the OR by Dr Issa on 07/31/23. Wound vac placed on 08/01. Wound vac then changed to a pulsating irrigation woundvac on 08/21/23. Due to lack of improvement and worsening appearance of his ulcer he underwent repeat debridement in the OR by Dr Dorsey on 08/25/23. On 09/04 the woundvac was removed due to candidiasis (extensive) in sacral area. Treated with fluconazole. Wound VAC was replaced on 09/18, draining purulent material. Continue wound care. Appreciate general surgery and wound care assistance. (3) Chronic osteomyelitis of sacrum: Plan: intra-op culture from 07/31 with MSSA, pseudomonas, providencia, and anaerobes. Sacral bone biopsy 08/24 with VRE and 2-week course of linezolid completed as of end 09/12. Per infectious disease, patient has completed 6 weeks of IV abx with concurrent wound vac. Mainly pip-tazo and cefepime (metronidazole added ) from 07/31/23 09/10/23 (4) Hospital acquired PNA: Plan: LLL -- resolved. Due to pseudomonas infection. Chronology of events: 08/01 - cxr with worsening infiltrates on left 08/03 - collapse LLL 08/03 - bronchoscopy by Dr Blancas with mucous plugging found in the left-sided bronchial tree s/p removal; 08/07 - s/p bronch by Dr Lock - minimal secretions LLL, no plugs; thick secretions in trach, however 08/09 - bronch cx - pseudomonas, intermediate resistance 08/09 - changed zosyn to cefepime 08/22 - cxr - ongoing LLL infiltrates/effusion - similar to previous imaging 09/17- cxr shows improved aeration within the left lung base trach routinely changed to cuffless by Dr. Street 09/09 Repeat chest x-ray done on 09/17 showed improved aeration within the left lung base. A 1 month follow-up is recommended (5) Transaminitis: Plan: Present on admission. Now resolved (6) Severe protein-calorie malnutrition: Plan: Chronic. Improving slowly. BMI now 20 (had been 18-19). Continue current nutrition recommendations (7) History of DVT (deep vein thrombosis): Plan: RLE DVT discovered 11/2022. Had been on Eliquis 5mg BID since 12/12/22. Eliquis dosage has been reduced to 2.5mg BID (8) History of nontraumatic rupture of cerebral aneurysm: Plan: Patient is nonverbal at baseline with chronic contractures in all 4 extremities, has eye opening, roving eye movements, grimacing, sleep-wake cycles. Functional quadriplegia. CT head shows encephalomalacia and good shunt placement . He unfortunately suffered a ruptured brain aneurysm and SAH 08/2022. Status post craniotomy and evacuation. He has a ventriculoperitoneal shunt in place. Known resultant severe autonomic dysfunction / paroxysmal sympathetic hyperactivity / autonomic storm which is controlled on medications and has the potential to be confused with sepsis. Continue current medical management (9) Autonomic dysfunction: Plan: Stable. Continue dantrolene and bromocriptine. Continue gabapentin and baclofen for spasticity (10) Cardiomyopathy: Plan: last echo 07/11/23 - low normal EF 50-55%. No acute current problems. Continue beta-joon therapy. (11) Tracheostomy status: Plan: cont local trach care. On 09/09, trach changed to 8.0 uncuffed tracheostomy tube by Dr. Street (12) Candidiasis: Plan: multiple locations - back/buttocks, groin, R axillary region. Cont anti-yeast topical powders. Completed 7d diflucan 09/11 with significant improvement Plan Placement pending. Mother refuses to consider placement in [place] since it is so far away. Case management has scheduled a meeting with family members for next week Recent history (resolved issues): #Bacteremias 06/2023, completed treatment and resolved -- sources included: SSTI sacral decubitus ulcer, Group C strep bacteremia - source thought 2nd to sacral wound, Coag neg staph bacteremia - contaminant vs bacteremia Corynebacterium bacteremia #Bilateral calf wounds, have healed. Ear wound, has healed. #Pneumatosis coli seen on CT abdomen mid Jun 2023. Evaluated by General surgery last admission. since no surgical abdomen/peritonitis/symptoms no Rx recommended during that admission etiology of the CT findings was uncertain. abdominal exam remains benign / soft day-to-day, tolerates TF well. lewis changed 09/05 trach changed 09/09 Admission and Anticipated Discharge Date Admission Date: July 18, 2023 Subjective Stable. No new findings Review of Systems 2 Review of Systems: The patient is unable to answer any questions regarding review of systems Physical Exam 2 Physical Exam: General-unresponsive but eyes are open. No fever HEENT-depressed right temporal defect from previous surgery Neck-no lymphadenopathy or thyromegaly, trachea midline Chest-scattered bilateral rhonchi. No wheezing. Cardiac-regular rate and rhythm, normal S1 and S2 Abdomen-normal bowel sounds, no hepatosplenomegaly Extremities-no cyanosis, clubbing, or edema Neuro-unresponsive. Cannot assess Psych-unresponsive. Cannot assess Results & Data Results & Data Vital Signs (Past 12 Hours) Vital Signs Temp Pulse Resp BP Pulse Ox O2 Del Method 09/25/23 07:43 37 C 83 16 102/69 98 Room Air Laboratory Results 09/21/23 05:49 09/23/23 05:53 PG Care Time/CCT Total # of Minutes Spent Total Time Spent with Patient: Total time spent is greater than 50% in coordination of care (as documented) at patient's floor/unit and/or counseling patient: Coding Level of Care Code 50637 SUB INP/OBS CARE 2/35MIN Diagnoses Tachycardia R00.0 Decubitus ulcer of sacral region, stage 4 L89.154 Chronic osteomyelitis of sacrum M86.68 Hospital acquired PNA J18.9; Y95 Transaminitis R74.01 Severe protein-calorie malnutrition E43 History of DVT (deep vein thrombosis) Z86.718 History of nontraumatic rupture of cerebral aneurysm Z86.79 Autonomic dysfunction G90.9 Cardiomyopathy I42.9 Tracheostomy status Z93.0 Candidiasis B37.9
--- NOTE | 2023-09-26 11:25 | Gastrointestinal Consultation ---
Date of Consultation September 26, 2023 Assessment & Plan (1) PEG tube malfunction: Plan Patient with reported issues with issues with feedings/flushings of peg tube. Discussed case with Dr. Rhodes who also saw the patient. Peg tube was surgically placed and as such, this peg tube will need to be replaced surgically. At this time, would recommend a surgical consultation to replace peg tube. Supervising Physician Co-Signing Physician Notes Agree with YASH Pierce as above Abd: Soft, NT, G-tube in place, no erythema at G tube site Continue current therapy and supportive care Recommend surgery consult due to surgically placed G-tube History of Present Illness Reason for Consultation: Recurrent peg dysfunction Requesting Physician: Selvin Gill MD Attending Physician: eSlvin Gill MD History of Present Illness Patient is a 33 year old male with past medical history of a brain injury secondary to cerebral aneurysm who has been inpatient since 07/18/23 when he arrived at the hospital with difficulty breathing. Patient does not provide any history, rather, history is obtained from nursing and through chart. GI consult placed for recurrent peg tube dysfunction. I discussed this case with nursing who tells me that the patient has been having issues with the flushing of his peg tube. This morning there were some issues with feedings due to clogging of the peg tube. Last feedings were done this morning. His peg tube was placed by surgeon at [facility] during placement of his trach on 10/02/22. Allergies Allergy/AdvReac Type Severity Reaction Status Date / Time No Known Allergies Allergy Unverified 07/08/23 15:52 Home Medications Medication Instructions Recorded Confirmed Type scopolamine base 1 mg over 3 days 1 patch transdermal Q3D 04/02/23 07/18/23 History transdermal patch acetaminophen 325 mg/10.15 mL oral 650 mg (20.3 mL) PEG Q6 #250 mL 04/17/23 07/18/23 Rx suspension bromocriptine 2.5 mg tablet 2.5 mg feeding tube Q6 #120 tabs 04/17/23 07/18/23 Rx bisacodyl 10 mg rectal suppository 10 mg RI .EVERY 24 HOURS PRN 05/04/23 07/18/23 History Constipation Proheal 30 ml feeding tube BID 07/08/23 07/18/23 History apixaban 5 mg tablet (Eliquis) 5 mg feeding tube BID 07/08/23 07/18/23 History ascorbic acid (vitamin C) 500 mg 500 mg PO DAILY 07/08/23 07/18/23 History tablet baclofen 20 mg tablet 20 mg feeding tube Q6 07/08/23 07/18/23 History collagenase clostridium histo. 250 1 applic topical .EVERY DAY SHIFT 07/08/23 07/18/23 History unit/gram topical ointment (Santyl) collagenase clostridium histo. 250 1 applic topical DIRECTED PRN 07/08/23 07/18/23 History unit/gram topical ointment (Santyl) soilage/dislodgement ferrous sulfate 300 mg (60 mg 325 mg feeding tube Q OTHER DAY 07/08/23 07/18/23 History iron)/5 mL oral liquid lactose-reduced food with fiber 1 ea feeding tube Q4 07/08/23 07/18/23 History 0.06 gram-1.5 kcal/mL oral liquid (Jevity 1.5 Lance) magnesium hydroxide 400 mg/5 mL 2,400 mg feeding tube DAILY PRN 07/08/23 07/18/23 History oral suspension (Milk of Magnesia) Constipation metoprolol tartrate 25 mg tablet 25 mg PEG Q12 07/08/23 07/18/23 History multivitamin 1 tab feeding tube QAM 07/08/23 07/18/23 History sodium phosphates 19 gram-7 118 ml RI .MORNING OF 4TH DAY PRN 07/08/23 07/18/23 History gram/118 mL enema (Fleet Enema) Constipation water 1 ea UD 07/08/23 07/18/23 History zinc sulfate 50 mg zinc (220 mg) 50 mg feeding tube DAILY 07/08/23 07/18/23 History tablet Magic Mix See Rx Instructions .Route .COMPLEX 07/18/23 07/18/23 History Saccharomyces boulardii 250 mg 250 mg feeding tube DAILY 07/18/23 07/18/23 History capsule dantrolene 100 mg capsule 100 mg feeding tube Q6H 07/18/23 07/18/23 History gabapentin 400 mg capsule 400 mg feeding tube Q4H 07/18/23 07/18/23 History Patient History Medical History Pneumonia involving left lung Sacral decubitus ulcer Quadriplegia Nonverbal Autonomic dysfunction Cardiomyopathy History of DVT (deep vein thrombosis) Moderate protein-calorie malnutrition History of nontraumatic rupture of cerebral aneurysm History of traumatic brain injury Surgical History S/P debridement (07/31/23) Incision and Debridement of Sacral Decubitus Ulcer(Not Applicable) - Angela Issa DO Tracheostomy status S/P SAMPLE TESTER shunt Social History Smoking Status: Never smoker Tobacco Type: Cigarettes Second Hand Exposure: No; Do You Dip or Chew Tobacco: No; Hx Alcohol Use: No Hx Substance Use: No Preferred Language: [place] Communication Ability: Impaired Administrative Assistant Required: No Beliefs That Will Affect Care: None Current Living Situation: Custodial Feels Safe at Home: Yes Assistive Devices: Other Review of Systems Review of Systems: Unobtainable due to cognitive status Physical Exam Respiratory: unlabored respiratory effort, trach in place Cardiovascular: RRR Gastrointestinal (Abdomen): peg tube placed in epigastric region. tube appears to be filled with debris. Results & Data Vital Signs (Past 12 Hours) Vital Signs Temp Pulse Resp BP Pulse Ox O2 Del Method O2 Flow Rate 09/26/23 08:11 98.2 F 84 16 113/77 95 Trach Collar 6 Coding Level of Care Code 40192 OFFICE CONSULT LVL 09/19M Diagnoses PEG tube malfunction K94.23
--- NOTE | 2023-09-26 14:32 | Hospitalist Progress Note ---
Date of Service September 26, 2023 Assessment & Plan (1) Tachycardia: Plan: Sinus tachycardia present on admission has resolved (2) Decubitus ulcer of sacral region, stage 4: Plan: Present on admission. s/p debridement in the OR by Dr Issa on 07/31/23. Wound vac placed on 08/01. Wound vac then changed to a pulsating irrigation woundvac on 08/21/23. Due to lack of improvement and worsening appearance of his ulcer he underwent repeat debridement in the OR by Dr Dorsey on 08/25/23. On 09/04 the woundvac was removed due to candidiasis (extensive) in sacral area. Treated with fluconazole. Wound VAC was replaced on 09/18, draining purulent material. Continue wound care. Appreciate general surgery and wound care assistance. (3) Chronic osteomyelitis of sacrum: Plan: intra-op culture from 07/31 with MSSA, pseudomonas, providencia, and anaerobes. Sacral bone biopsy 08/24 with VRE and 2-week course of linezolid completed as of end 09/12. Per infectious disease, patient has completed 6 weeks of IV abx with concurrent wound vac. Mainly pip-tazo and cefepime (metronidazole added ) from 07/31/23 09/10/23 (4) Hospital acquired PNA: Plan: LLL -- resolved. Due to pseudomonas infection. Chronology of events: 08/01 - cxr with worsening infiltrates on left 08/03 - collapse LLL 08/03 - bronchoscopy by Dr Blancas with mucous plugging found in the left-sided bronchial tree s/p removal; 08/07 - s/p bronch by Dr Lock - minimal secretions LLL, no plugs; thick secretions in trach, however 08/09 - bronch cx - pseudomonas, intermediate resistance 08/09 - changed zosyn to cefepime 08/22 - cxr - ongoing LLL infiltrates/effusion - similar to previous imaging 09/17- cxr shows improved aeration within the left lung base trach routinely changed to cuffless by Dr. Street 09/09 Repeat chest x-ray done on 09/17 showed improved aeration within the left lung base. A 1 month follow-up is recommended (5) Transaminitis: Plan: Present on admission. Now resolved (6) Severe protein-calorie malnutrition: Plan: Chronic. Improving slowly. BMI now 20 (had been 18-19). Continue current nutrition recommendations (7) History of DVT (deep vein thrombosis): Plan: RLE DVT discovered 11/2022. Had been on Eliquis 5mg BID since 12/12/22. Eliquis dosage has been reduced to 2.5mg BID (8) History of nontraumatic rupture of cerebral aneurysm: Plan: Patient is nonverbal at baseline with chronic contractures in all 4 extremities, has eye opening, roving eye movements, grimacing, sleep-wake cycles. Functional quadriplegia. CT head shows encephalomalacia and good shunt placement . He unfortunately suffered a ruptured brain aneurysm and SAH 08/2022. Status post craniotomy and evacuation. He has a ventriculoperitoneal shunt in place. Known resultant severe autonomic dysfunction / paroxysmal sympathetic hyperactivity / autonomic storm which is controlled on medications and has the potential to be confused with sepsis. Continue current medical management (9) Autonomic dysfunction: Plan: Stable. Continue dantrolene and bromocriptine. Continue gabapentin and baclofen for spasticity (10) Cardiomyopathy: Plan: last echo 07/11/23 - low normal EF 50-55%. No acute current problems. Continue beta-joon therapy. (11) Tracheostomy status: Plan: cont local trach care. On 09/09, trach changed to 8.0 uncuffed tracheostomy tube by Dr. Street (12) Candidiasis: Plan: multiple locations - back/buttocks, groin, R axillary region. Cont anti-yeast topical powders. Completed 7d diflucan 09/11 with significant improvement (13) PEG tube malfunction: Plan: GI consultation appreciated. The PEG tube will be replaced sometime next week Plan Placement pending. Mother refuses to consider placement in [place] since it is so far away. Case management has scheduled a meeting with family members for next week Recent history (resolved issues): #Bacteremias 06/2023, completed treatment and resolved -- sources included: SSTI sacral decubitus ulcer, Group C strep bacteremia - source thought 2nd to sacral wound, Coag neg staph bacteremia - contaminant vs bacteremia Corynebacterium bacteremia #Bilateral calf wounds, have healed. Ear wound, has healed. #Pneumatosis coli seen on CT abdomen mid Jun 2023. Evaluated by General surgery last admission. since no surgical abdomen/peritonitis/symptoms no Rx recommended during that admission etiology of the CT findings was uncertain. abdominal exam remains benign / soft day-to-day, tolerates TF well. lewis changed 09/05 trach changed 09/09 Admission and Anticipated Discharge Date Admission Date: July 18, 2023 Subjective No significant change in clinical status. GI has seen the patient and will replace the PEG tube next week Review of Systems 2 Review of Systems: The patient is unable to answer any questions regarding review of systems Physical Exam 2 Physical Exam: General-unresponsive but eyes are open. No fever HEENT-depressed right temporal defect from previous surgery Neck-no lymphadenopathy or thyromegaly, trachea midline Chest-scattered bilateral rhonchi. No wheezing. Cardiac-regular rate and rhythm, normal S1 and S2 Abdomen-normal bowel sounds, no hepatosplenomegaly Extremities-no cyanosis, clubbing, or edema Neuro-unresponsive. Cannot assess Psych-unresponsive. Cannot assess Results & Data Results & Data Vital Signs (Past 12 Hours) Vital Signs Temp Pulse Resp BP Pulse Ox O2 Del Method O2 Flow Rate 09/26/23 11:46 36.6 C 83 16 120/69 95 Trach Collar 6 09/26/23 08:11 36.8 C 84 16 113/77 95 Trach Collar 6 09/26/23 07:25 Trach Collar Laboratory Results 09/21/23 05:49 09/23/23 05:53 PG Care Time/CCT Total # of Minutes Spent Total Time Spent with Patient: Total time spent is greater than 50% in coordination of care (as documented) at patient's floor/unit and/or counseling patient: Coding Level of Care Code 17545 SUB INP/OBS CARE 2/35MIN Diagnoses Tachycardia R00.0 Decubitus ulcer of sacral region, stage 4 L89.154 Chronic osteomyelitis of sacrum M86.68 Hospital acquired PNA J18.9; Y95 Transaminitis R74.01 Severe protein-calorie malnutrition E43 History of DVT (deep vein thrombosis) Z86.718 History of nontraumatic rupture of cerebral aneurysm Z86.79 Autonomic dysfunction G90.9 Cardiomyopathy I42.9 Tracheostomy status Z93.0 Candidiasis B37.9 PEG tube malfunction K94.23
--- NOTE | 2023-09-26 14:36 | Communication Note ---
Date of Service: September 26, 2023 Consulted placed for malfunctioning PEG Tube. Chart reviewed, patient not evaluated. Operative report from patients PEG tube placement at [facility] showed that the tube is a PEG tube placed by surgeon and not a surgical gastrostomy tube. Dr. Vy Theodore discussed with Dr. Rhodes if could be replaced endoscopically as less invasive to avoid any surgical intervention. Dr. Rhodes will plan for PEG tube replacement next week. Dr. Theodore updated Dr. Gill. Agree with plan as above (discussed with Dr. Rhodes and Dr. Gill).
--- NOTE | 2023-09-26 15:10 | GI REPORT ---
Patient Name: Ry Viveros Procedure Date: 09/26/2023 3:07 PM Date of : 1990 Admit Type: Inpatient Age: 33 Gender: Male Attending MD: Fuad Rhodes DO, Procedure: Non-endoscopic Tube Procedure Providers: Fuad Rhodes DO Referring MD: Selvin Worthington Indications: Replace PEG tube due to malfunctioning gastrostomy tube Medicines: None Complications: No immediate complications. Estimated Blood Loss: Estimated blood loss: none. Procedure: After obtaining informed consent, the site was prepped and the procedure was performed. The procedure was accomplished without difficulty. The patient tolerated the procedure well. Findings: Upon external examination, leakage was found surrounding the stomal opening. The gastrostomy tube was malfunctioning and not functioning. The existing gastrostomy site was examined and cleaned. A 20 Fr Covidien PEG-J gastrostomy tube was lubricated and placed into the existing gastrostomy port. A total of 20 mL saline was used to distend the balloon that was previously tested. When positioned, the skin marking was noted to be 4 cm at the external bumper. The final tension and compression of the abdominal wall by the gastrostomy tube and external bumper were checked and revealed that the bumper was loose and lightly touching the skin. Placement into the stomach was confirmed with flushing, aspiration and auscultation. The tube was capped, and the tube site was cleaned and dressed. Impression: - The previously removed gastrostomy tube was replaced with a 20 Fr Covidien PEG-J gastrostomy tube. - No specimens collected. Recommendation: - Please follow the post-PEG recommendations including: start using PEG today. Fuad Rhodes DO 09/26/2023 3:09:48 PM This report has been signed electronically. Note Initiated On: 09/26/2023 3:07 PM Number of Addenda: 0 I attest to the content of the Intraoperative Record and orders documented therein, exceptions below {[id number]}
[2023-09-26] MEDS: SODIUM CHLORIDE 0.9% 1,000 ML IV SCH (15:17)
[2023-09-27] MEDS: TUBE FEEDING WATER FLUSH PEG SCH (11:56)
--- NOTE | 2023-09-27 12:30 | Hospitalist Progress Note ---
Date of Service September 27, 2023 Assessment & Plan (1) Tachycardia: Plan: Sinus tachycardia present on admission has resolved (2) Decubitus ulcer of sacral region, stage 4: Plan: Present on admission. s/p debridement in the OR by Dr Issa on 07/31/23. Wound vac placed on 08/01. Wound vac then changed to a pulsating irrigation woundvac on 08/21/23. Due to lack of improvement and worsening appearance of his ulcer he underwent repeat debridement in the OR by Dr Dorsey on 08/25/23. On 09/04 the woundvac was removed due to candidiasis (extensive) in sacral area. Treated with fluconazole. Wound VAC was replaced on 09/18, draining purulent material. Continue wound care. Appreciate general surgery and wound care assistance. (3) Chronic osteomyelitis of sacrum: Plan: intra-op culture from 07/31 with MSSA, pseudomonas, providencia, and anaerobes. Sacral bone biopsy 08/24 with VRE and 2-week course of linezolid completed as of end 09/12. Per infectious disease, patient has completed 6 weeks of IV abx with concurrent wound vac. Mainly pip-tazo and cefepime (metronidazole added ) from 07/31/23 09/10/23 (4) Hospital acquired PNA: Plan: LLL -- resolved. Due to pseudomonas infection. Chronology of events: 08/01 - cxr with worsening infiltrates on left 08/03 - collapse LLL 08/03 - bronchoscopy by Dr Blancas with mucous plugging found in the left-sided bronchial tree s/p removal; 08/07 - s/p bronch by Dr Lock - minimal secretions LLL, no plugs; thick secretions in trach, however 08/09 - bronch cx - pseudomonas, intermediate resistance 08/09 - changed zosyn to cefepime 08/22 - cxr - ongoing LLL infiltrates/effusion - similar to previous imaging 09/17- cxr shows improved aeration within the left lung base trach routinely changed to cuffless by Dr. Street 09/09 Repeat chest x-ray done on 09/17 showed improved aeration within the left lung base. A 1 month follow-up is recommended (5) Transaminitis: Plan: Present on admission. Now resolved (6) Severe protein-calorie malnutrition: Plan: Chronic. Improving slowly. Continue current nutrition recommendations (7) History of DVT (deep vein thrombosis): Plan: RLE DVT discovered 11/2022. Had been on Eliquis 5mg BID since 12/12/22. Eliquis dosage has been reduced to 2.5mg BID (8) History of nontraumatic rupture of cerebral aneurysm: Plan: Patient is nonverbal at baseline with chronic contractures in all 4 extremities, has eye opening, roving eye movements, grimacing, sleep-wake cycles. Functional quadriplegia. CT head shows encephalomalacia and good shunt placement . He unfortunately suffered a ruptured brain aneurysm and SAH 08/2022. Status post craniotomy and evacuation. He has a ventriculoperitoneal shunt in place. Known resultant severe autonomic dysfunction / paroxysmal sympathetic hyperactivity / autonomic storm which is controlled on medications and has the potential to be confused with sepsis. Continue current medical management (9) Autonomic dysfunction: Plan: Stable. Continue dantrolene and bromocriptine. Continue gabapentin and baclofen for spasticity (10) Cardiomyopathy: Plan: last echo 07/11/23 - low normal EF 50-55%. No acute current problems. Continue beta-joon therapy. (11) Tracheostomy status: Plan: cont local trach care. On 09/09, trach changed to 8.0 uncuffed tracheostomy tube by Dr. Street (12) Candidiasis: Plan: multiple locations - back/buttocks, groin, R axillary region. Cont anti-yeast topical powders. Completed 7d diflucan 09/11 with significant improvement (13) PEG tube malfunction: Plan: GI consultation appreciated. The PEG tube was replaced yesterday, September 25. Nursing reports no acute problems since then. Plan Placement pending. Mother refuses to consider placement in [place] since it is so far away. Case management has scheduled a meeting with family members for next week Recent history (resolved issues): #Bacteremias 06/2023, completed treatment and resolved -- sources included: SSTI sacral decubitus ulcer, Group C strep bacteremia - source thought 2nd to sacral wound, Coag neg staph bacteremia - contaminant vs bacteremia Corynebacterium bacteremia #Bilateral calf wounds, have healed. Ear wound, has healed. #Pneumatosis coli seen on CT abdomen mid Jun 2023. Evaluated by General surgery last admission. since no surgical abdomen/peritonitis/symptoms no Rx recommended during that admission etiology of the CT findings was uncertain. abdominal exam remains benign / soft day-to-day, tolerates TF well. lewis changed 09/05 trach changed 09/09 Admission and Anticipated Discharge Date Admission Date: July 18, 2023 Subjective Eyes open but no response of interaction. No distress. Portable chest x-ray was repeated today and reveals some left lower lobe atelectatic changes but no infiltrates. Gastroenterology service changed his PEG tube yesterday, September 25. Nursing reports no current problems. Review of Systems 2 Review of Systems: The patient is unable to answer any questions regarding review of systems Physical Exam 2 Physical Exam: General-unresponsive but eyes are open. No fever HEENT-depressed right temporal defect from previous surgery Neck-no lymphadenopathy or thyromegaly, trachea midline Chest-scattered bilateral rhonchi. No wheezing. Cardiac-regular rate and rhythm, normal S1 and S2 Abdomen-normal bowel sounds, no hepatosplenomegaly Extremities-no cyanosis, clubbing, or edema Neuro-unresponsive. Cannot assess Psych-unresponsive. Cannot assess Results & Data Results & Data Vital Signs (Past 12 Hours) Vital Signs Temp Pulse Resp BP Pulse Ox O2 Del Method O2 Flow Rate 09/27/23 08:00 Trach Collar 09/27/23 07:46 37.3 C 99 H 16 108/74 95 BiPAP, Trach Collar 6 Laboratory Results 09/21/23 05:49 09/23/23 05:53 PG Care Time/CCT Total # of Minutes Spent Total Time Spent with Patient: Total time spent is greater than 50% in coordination of care (as documented) at patient's floor/unit and/or counseling patient: Coding Level of Care Code 94014 SUB INP/OBS CARE 2/35MIN Diagnoses Tachycardia R00.0 Decubitus ulcer of sacral region, stage 4 L89.154 Chronic osteomyelitis of sacrum M86.68 Hospital acquired PNA J18.9; Y95 Transaminitis R74.01 Severe protein-calorie malnutrition E43 History of DVT (deep vein thrombosis) Z86.718 History of nontraumatic rupture of cerebral aneurysm Z86.79 Autonomic dysfunction G90.9 Cardiomyopathy I42.9 Tracheostomy status Z93.0 Candidiasis B37.9 PEG tube malfunction K94.23
--- NOTE | 2023-09-27 14:16 | XRay Report ---
XR chest 1V portable CLINICAL HISTORY: hypoxia TECHNIQUE: Single frontal radiograph of the chest was obtained. Comparison: Comparison is made to chest radiograph 09/10/2023 FINDINGS: Tracheostomy tube is seen. A [employer] shunt is seen. The cardiomediastinal silhouette is normal. The lungs are clear. No evidence of pleural effusion or pneumothorax. IMPRESSION: Interval resolution of previously noted left lower lung airspace opacity. ACT 112: Negative or not required by law. Electronically signed by: Luis Denise M.D. 09/27/2023 2:15 PM
--- NOTE | 2023-09-28 12:30 | Hospitalist Progress Note ---
Date of Service September 28, 2023 Assessment & Plan (1) Tachycardia: Plan: Sinus tachycardia present on admission has resolved (2) Decubitus ulcer of sacral region, stage 4: Plan: Present on admission. s/p debridement in the OR by Dr Issa on 07/31/23. Wound vac placed on 08/01. Wound vac then changed to a pulsating irrigation woundvac on 08/21/23. Due to lack of improvement and worsening appearance of his ulcer he underwent repeat debridement in the OR by Dr Dorsey on 08/25/23. On 09/04 the woundvac was removed due to candidiasis (extensive) in sacral area. Treated with fluconazole. Wound VAC was replaced on 09/18, draining purulent material. Continue wound care. Appreciate general surgery and wound care assistance. (3) Chronic osteomyelitis of sacrum: Plan: intra-op culture from 07/31 with MSSA, pseudomonas, providencia, and anaerobes. Sacral bone biopsy 08/24 with VRE and 2-week course of linezolid completed as of end 09/12. Per infectious disease, patient has completed 6 weeks of IV abx with concurrent wound vac. Mainly pip-tazo and cefepime (metronidazole added ) from 07/31/23 09/10/23 (4) Hospital acquired PNA: Plan: LLL -- resolved. Due to pseudomonas infection. Chronology of events: 08/01 - cxr with worsening infiltrates on left 08/03 - collapse LLL 08/03 - bronchoscopy by Dr Blancas with mucous plugging found in the left-sided bronchial tree s/p removal; 08/07 - s/p bronch by Dr Lock - minimal secretions LLL, no plugs; thick secretions in trach, however 08/09 - bronch cx - pseudomonas, intermediate resistance 08/09 - changed zosyn to cefepime 08/22 - cxr - ongoing LLL infiltrates/effusion - similar to previous imaging 09/17- cxr shows improved aeration within the left lung base trach routinely changed to cuffless by Dr. Street 09/09 Repeat chest x-ray done on 09/17 showed improved aeration within the left lung base. A 1 month follow-up is recommended (5) Transaminitis: Plan: Present on admission. Now resolved (6) Severe protein-calorie malnutrition: Plan: Chronic. Improving slowly. Continue current nutrition recommendations (7) History of DVT (deep vein thrombosis): Plan: RLE DVT discovered 11/2022. Had been on Eliquis 5mg BID since 12/12/22. Eliquis dosage has been reduced to 2.5mg BID (8) History of nontraumatic rupture of cerebral aneurysm: Plan: Patient is nonverbal at baseline with chronic contractures in all 4 extremities, has eye opening, roving eye movements, grimacing, sleep-wake cycles. Functional quadriplegia. CT head shows encephalomalacia and good shunt placement . He unfortunately suffered a ruptured brain aneurysm and SAH 08/2022. Status post craniotomy and evacuation of hematoma. 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 He has a ventriculoperitoneal shunt in place. Known resultant severe autonomic dysfunction / paroxysmal sympathetic hyperactivity / autonomic storm which is controlled on medications and has the potential to be confused with sepsis. Continue current medical management (9) Autonomic dysfunction: Plan: Stable. Continue dantrolene and bromocriptine. Continue gabapentin and baclofen for spasticity (10) Cardiomyopathy: Plan: last echo 07/11/23 - low normal EF 50-55%. No acute current problems. Continue beta-joon therapy. (11) Tracheostomy status: Plan: cont local trach care. On 09/09, trach changed to 8.0 uncuffed tracheostomy tube by Dr. Street (12) Candidiasis: Plan: multiple locations - back/buttocks, groin, R axillary region. Cont anti-yeast topical powders. Completed 7d diflucan 09/11 with significant improvement (13) PEG tube malfunction: Plan: GI consultation appreciated. The PEG tube was replaced on September 25. Nursing reports no acute problems since then. Plan Placement pending. Mother refuses to consider placement in [place] since it is so far away. Case management has scheduled a meeting with family members for next week Recent history (resolved issues): #Bacteremias 06/2023, completed treatment and resolved -- sources included: SSTI sacral decubitus ulcer, Group C strep bacteremia - source thought 2nd to sacral wound, Coag neg staph bacteremia - contaminant vs bacteremia Corynebacterium bacteremia #Bilateral calf wounds, have healed. Ear wound, has healed. #Pneumatosis coli seen on CT abdomen mid Jun 2023. Evaluated by General surgery last admission. since no surgical abdomen/peritonitis/symptoms no Rx recommended during that admission etiology of the CT findings was uncertain. abdominal exam remains benign / soft day-to-day, tolerates TF well. lewis changed 09/05 trach changed 09/09 Admission and Anticipated Discharge Date Admission Date: July 18, 2023 Subjective No change in clinical status Review of Systems 2 Review of Systems: The patient is unable to answer any questions regarding review of systems Physical Exam 2 Physical Exam: General-unresponsive but eyes are open. No fever HEENT-depressed right temporal defect from previous surgery Neck-no lymphadenopathy or thyromegaly, trachea midline Chest-scattered bilateral rhonchi. No wheezing. Cardiac-regular rate and rhythm, normal S1 and S2 Abdomen-normal bowel sounds, no hepatosplenomegaly Extremities-no cyanosis, clubbing, or edema Neuro-unresponsive. Cannot assess Psych-unresponsive. Cannot assess Results & Data Results & Data Vital Signs (Past 12 Hours) Vital Signs Temp Pulse Resp BP Pulse Ox O2 Del Method O2 Flow Rate 09/28/23 08:30 Trach Collar 5 09/28/23 07:39 36.5 C 75 16 113/66 98 Trach Collar 6 Laboratory Results 09/21/23 05:49 09/23/23 05:53 PG Care Time/CCT Total # of Minutes Spent Total Time Spent with Patient: Total time spent is greater than 50% in coordination of care (as documented) at patient's floor/unit and/or counseling patient: Coding Level of Care Code 91144 SUB INP/OBS CARE 2/35MIN Diagnoses Tachycardia R00.0 Decubitus ulcer of sacral region, stage 4 L89.154 Chronic osteomyelitis of sacrum M86.68 Hospital acquired PNA J18.9; Y95 Transaminitis R74.01 Severe protein-calorie malnutrition E43 History of DVT (deep vein thrombosis) Z86.718 History of nontraumatic rupture of cerebral aneurysm Z86.79 Autonomic dysfunction G90.9 Cardiomyopathy I42.9 Tracheostomy status Z93.0 Candidiasis B37.9 PEG tube malfunction K94.23
--- NOTE | 2023-09-29 16:16 | Hospitalist Progress Note ---
Date of Service September 29, 2023 Assessment & Plan (1) Decubitus ulcer of sacral region, stage 4: Plan: Present on admission. - s/p debridement in the OR by Dr Issa on 07/31/23. - Wound vac placed on 08/01. Wound vac then changed to a pulsating irrigation woundvac on 08/21/23. - Due to lack of improvement and worsening appearance of his ulcer he underwent repeat debridement in the OR by Dr Dorsey on 08/25/23. - on 09/04 the woundvac was removed due to candidiasis (extensive) in sacral area. Treated with fluconazole. Wound VAC was replaced on 09/18, draining purulent material. Continue wound care. Appreciate general surgery and wound care assistance. (2) Chronic osteomyelitis of sacrum: Plan: intra-op culture from 07/31 with MSSA, pseudomonas, providencia, and anaerobes. Sacral bone biopsy 08/24 with VRE and 2-week course of linezolid completed as of end 09/12. Per infectious disease, patient has completed 6 weeks of IV abx with concurrent wound vac. Mainly pip-tazo and cefepime (metronidazole added ) from 07/31/23 09/10/23 (3) Hospital acquired PNA: Plan: LLL -- resolved. Due to pseudomonas infection. Chronology of events: 08/01 - cxr with worsening infiltrates on left 08/03 - collapse LLL 08/03 - bronchoscopy by Dr Blancas with mucous plugging found in the left-sided bronchial tree s/p removal; 08/07 - s/p bronch by Dr Lock - minimal secretions LLL, no plugs; thick secretions in trach, however 08/09 - bronch cx - pseudomonas, intermediate resistance 08/09 - changed zosyn to cefepime 08/22 - cxr - ongoing LLL infiltrates/effusion - similar to previous imaging 09/17- cxr shows improved aeration within the left lung base trach routinely changed to cuffless by Dr. Street 09/09 Repeat chest x-ray done on 09/17 showed improved aeration within the left lung base. A 1 month follow-up is recommended (4) Severe protein-calorie malnutrition: Plan: Chronic. Improving slowly. Continue current nutrition recommendations Peg tube replaced 09/25 (5) History of DVT (deep vein thrombosis): Plan: RLE DVT discovered 11/2022. Had been on Eliquis 5mg BID since 12/12/22. Eliquis dosage has been reduced to 2.5mg BID (6) History of nontraumatic rupture of cerebral aneurysm: Plan: Patient is nonverbal at baseline with chronic contractures in all 4 extremities, has eye opening, roving eye movements, grimacing, sleep-wake cycles. Functional quadriplegia. CT head shows encephalomalacia and good shunt placement . He unfortunately suffered a ruptured brain aneurysm and SAH 08/2022. Status post craniotomy and evacuation of hematoma. 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 He has a ventriculoperitoneal shunt in place. Known resultant severe autonomic dysfunction / paroxysmal sympathetic hyperactivity / autonomic storm which is controlled on medications and has the potential to be confused with sepsis. Continue current medical management (7) Autonomic dysfunction: Plan: Stable. Continue dantrolene and bromocriptine. Continue gabapentin and baclofen for spasticity (8) Cardiomyopathy: Plan: last echo 07/11/23 - low normal EF 50-55%. No acute current problems. Continue beta-joon therapy. (9) Tracheostomy status: Plan: cont local trach care. On 09/09, trach changed to 8.0 uncuffed tracheostomy tube by Dr. Street (10) Candidiasis: Plan: multiple locations - back/buttocks, groin, R axillary region. Cont anti-yeast topical powders. Completed 7d diflucan 09/11 with significant improvement Plan Placement pending. Mother refuses to consider placement in [place] since it is so far away. Case management has scheduled a meeting with family members tomorrow Recent history (resolved issues): #Bacteremias 06/2023, completed treatment and resolved -- sources included: SSTI sacral decubitus ulcer, Group C strep bacteremia - source thought 2nd to sacral wound, Coag neg staph bacteremia - contaminant vs bacteremia Corynebacterium bacteremia #Bilateral calf wounds, have healed. Ear wound, has healed. #Pneumatosis coli seen on CT abdomen mid Jun 2023. Evaluated by General surgery last admission. since no surgical abdomen/peritonitis/symptoms no Rx recommended during that admission etiology of the CT findings was uncertain. abdominal exam remains benign / soft day-to-day, tolerates TF well. # transaminitis - resolved # tachycardia resolved lewis changed 09/05 trach changed 09/09 peg tube changed 09/25 Admission and Anticipated Discharge Date Admission Date: July 18, 2023 Subjective patient unresponsive - does not open eyes to stimuli Review of Systems Review of Systems: Unobtainable due to reduced consciousness Physical Exam Physical Exam: General: non responsive, VS as above Resp: normal respiratory effort - trach dependent, lungs clear to auscultation CV: RRR, no murmur, Extremities:no edema or clubbing, contractures presebt Neuro: non responsive Results & Data Results & Data Vital Signs (Past 12 Hours) Vital Signs Temp Pulse Resp BP Pulse Ox O2 Del Method O2 Flow Rate 09/29/23 14:35 36.8 C 87 16 102/68 97 Room Air 09/29/23 10:31 Trach Collar 5 09/29/23 07:04 36.7 C 65 16 100/65 99 Trach Collar 6 PG Care Time/CCT Total # of Minutes Spent Total Time Spent with Patient: Total time spent is greater than 50% in coordination of care (as documented) at patient's floor/unit and/or counseling patient: Coding Level of Care Code 67411 SUB INP/OBS CARE 07/17MIN Diagnoses Decubitus ulcer of sacral region, stage 4 L89.154 Chronic osteomyelitis of sacrum M86.68 Hospital acquired PNA J18.9; Y95 Severe protein-calorie malnutrition E43 History of DVT (deep vein thrombosis) Z86.718 History of nontraumatic rupture of cerebral aneurysm Z86.79 Autonomic dysfunction G90.9 Cardiomyopathy I42.9 Tracheostomy status Z93.0 Candidiasis B37.9
[2023-09-30 07:23] LABS: Alanine Aminotransferase 8 U/L (7-52); Albumin Globulin Ratio 1.1 (0.9-2); Albumin Level 3.9 gm/dl (3.4-5.0); Alkaline Phosphatase 64 U/L (34-104); Anion Gap 9 (3-11); Aspartate Aminotransferase 11 U/L (13-39); BUN Creatinine Ratio 64.9 (10-20); Bilirubin,Total 0.4 mg/dl (0.2-1.0); Blood Urea Nitrogen 24 mg/dl (6-23); Calcium 9.5 mg/dl (8.6-10.3); Carbon Dioxide 29 mmol/L (21-32); Chloride 101 mmol/L (98-107); Creatinine Clr Calc Pharmacy 221.3 ml/min; Est GFR (African American) > 150.0 ml/min; Est GFR (Non-African American) > 150.0 ml/min; Globulin 3.4 gm/dl (2.5-4.0); Glucose 96 mg/dl (70-99(Fasting)); Sodium 139 mmol/L (136-145); Total Protein 7.3 gm/dl (6.0-8.3)
--- NOTE | 2023-09-30 17:31 | Hospitalist Progress Note ---
Date of Service September 30, 2023 Assessment & Plan (1) Tachycardia: Plan: maintaining low 100s since last night however AM metoprolol was held no signs of new infection on exam will check AM CBC, bmp, CRP, ESR, procal (2) Decubitus ulcer of sacral region, stage 4: Plan: Present on admission. - s/p debridement in the OR by Dr Issa on 07/31/23. - Wound vac placed on 08/01. Wound vac then changed to a pulsating irrigation woundvac on 08/21/23. - Due to lack of improvement and worsening appearance of his ulcer he underwent repeat debridement in the OR by Dr Dorsey on 08/25/23. - on 09/04 the woundvac was removed due to candidiasis (extensive) in sacral area. Treated with fluconazole. Wound VAC was replaced on 09/18, draining purulent material. Continue wound care. Appreciate general surgery and wound care assistance. (3) Chronic osteomyelitis of sacrum: Plan: intra-op culture from 07/31 with MSSA, pseudomonas, providencia, and anaerobes. Sacral bone biopsy 08/24 with VRE and 2-week course of linezolid completed as of end 09/12. Per infectious disease, patient has completed 6 weeks of IV abx with concurrent wound vac. Mainly pip-tazo and cefepime (metronidazole added ) from 07/31/23 09/10/23 (4) Hospital acquired PNA: Plan: LLL -- resolved. Due to pseudomonas infection. Chronology of events: 08/01 - cxr with worsening infiltrates on left 08/03 - collapse LLL 08/03 - bronchoscopy by Dr Blancas with mucous plugging found in the left-sided bronchial tree s/p removal; 08/07 - s/p bronch by Dr Lock - minimal secretions LLL, no plugs; thick secretions in trach, however 08/09 - bronch cx - pseudomonas, intermediate resistance 08/09 - changed zosyn to cefepime 08/22 - cxr - ongoing LLL infiltrates/effusion - similar to previous imaging 09/17- cxr shows improved aeration within the left lung base trach routinely changed to cuffless by Dr. Street 09/09 Repeat chest x-ray done on 09/17 showed improved aeration within the left lung base. A 1 month follow-up is recommended (5) Severe protein-calorie malnutrition: Plan: Chronic. Improving slowly. Continue current nutrition recommendations Peg tube replaced 09/25 (6) History of DVT (deep vein thrombosis): Plan: RLE DVT discovered 11/2022. Had been on Eliquis 5mg BID since 12/12/22. Eliquis dosage has been reduced to 2.5mg BID (7) History of nontraumatic rupture of cerebral aneurysm: Plan: Patient is nonverbal at baseline with chronic contractures in all 4 extremities, has eye opening, roving eye movements, grimacing, sleep-wake cycles. Functional quadriplegia. CT head shows encephalomalacia and good shunt placement . He unfortunately suffered a ruptured brain aneurysm and SAH 08/2022. Status post craniotomy and evacuation of hematoma. 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 He has a ventriculoperitoneal shunt in place. Known resultant severe autonomic dysfunction / paroxysmal sympathetic hyperactivity / autonomic storm which is controlled on medications and has the potential to be confused with sepsis. Continue current medical management (8) Autonomic dysfunction: Plan: Stable. Continue dantrolene and bromocriptine. Continue gabapentin and baclofen for spasticity (9) Cardiomyopathy: Plan: last echo 07/11/23 - low normal EF 50-55%. No acute current problems. Continue beta-joon therapy. (10) Tracheostomy status: Plan: cont local trach care. On 09/09, trach changed to 8.0 uncuffed tracheostomy tube by Dr. Street (11) Candidiasis: Plan: multiple locations - back/buttocks, groin, R axillary region. Cont anti-yeast topical powders. Completed 7d diflucan 09/11 with significant improvement Plan Placement pending. Mother refuses to consider placement in [place] since it is so far away. Case management has scheduled a meeting with family members tomorrow Recent history (resolved issues): #Bacteremias 06/2023, completed treatment and resolved -- sources included: SSTI sacral decubitus ulcer, Group C strep bacteremia - source thought 2nd to sacral wound, Coag neg staph bacteremia - contaminant vs bacteremia Corynebacterium bacteremia #Bilateral calf wounds, have healed. Ear wound, has healed. #Pneumatosis coli seen on CT abdomen mid Jun 2023. Evaluated by General surgery last admission. since no surgical abdomen/peritonitis/symptoms no Rx recommended during that admission etiology of the CT findings was uncertain. abdominal exam remains benign / soft day-to-day, tolerates TF well. # transaminitis - resolved # tachycardia resolved lewis changed 09/05 trach changed 09/09 peg tube changed 09/25 Admission and Anticipated Discharge Date Admission Date: July 18, 2023 Subjective mental status unchanged - eyes open today Review of Systems Review of Systems: Unobtainable due to reduced consciousness Physical Exam Physical Exam: General: eyes open, VS as above Resp: normal respiratory effort - trach dependent, lungs clear to auscultation CV: RRR, no murmur, ABD: soft, non distended Extremities:no edema or clubbing, contractures present Neuro: non responsive, skull defect from prior craniotomy Results & Data Results & Data Vital Signs (Past 12 Hours) Vital Signs Temp Pulse Pulse Resp BP Pulse Ox O2 Del Method 09/30/23 14:19 37.0 C 102 H 16 102/69 99 Trach Collar 09/30/23 07:14 Oxymask, Trach Collar 09/30/23 07:06 36.5 C 104 H 16 98/68 L 95 Oxymask, Trach Collar O2 Flow Rate FiO2 09/30/23 14:19 6 09/30/23 07:14 5 28 09/30/23 07:06 5 28 Laboratory Results BMP reviewed PG Care Time/CCT Total # of Minutes Spent Total Time Spent with Patient: Total time spent is greater than 50% in coordination of care (as documented) at patient's floor/unit and/or counseling patient: Coding Level of Care Code 00035 SUB INP/OBS CARE 2/35MIN Diagnoses Tachycardia R00.0 Decubitus ulcer of sacral region, stage 4 L89.154 Chronic osteomyelitis of sacrum M86.68 Hospital acquired PNA J18.9; Y95 Severe protein-calorie malnutrition E43 History of DVT (deep vein thrombosis) Z86.718 History of nontraumatic rupture of cerebral aneurysm Z86.79 Autonomic dysfunction G90.9 Cardiomyopathy I42.9 Tracheostomy status Z93.0 Candidiasis B37.9
[2023-10-01 06:45] LABS: Basophils # (auto) 0.03 K/uL (0.00-0.20); Basophils % (auto) 0.4 %; Eosinophils # (auto) 0.23 K/uL (0.00-0.50); Eosinophils % (auto) 2.9 %; Hematocrit (blood only) 35.1 % (42.0-52.0); Immature Granulocytes # (auto) 0.02 K/uL (0.01-0.20); Immature Granulocytes % (auto) 0.3 %; Lymphocytes # (auto) 1.37 K/uL (1.20-3.40); Lymphocytes % (auto) 17.2 %; Mean Corpuscular Hemoglobin 29.8 pg (25.0-34.0); Mean Corpuscular Hgb Conc 31.3 g/dL (32.0-36.0); Mean Corpuscular Volume 95.1 fL (80.0-100.0); Mean Platelet Volume 11.9 fL (9.4-12.4); Monocytes # (auto) 0.79 K/uL (0.11-0.59); Monocytes % (auto) 9.9 %; Neutrophils # (auto) 5.54 K/uL (1.40-6.50); Neutrophils % (auto) 69.3 %; Platelet Count 267 K/uL (130-400); RDW Coefficient of Variation 14.9 % (11.5-14.5); Red Blood Count 3.69 M/uL (4.70-6.10); White Blood Count 7.98 K/ul (4.8-10.8)
[2023-10-01 07:15] LABS: Anion Gap 9 (3-11); BUN Creatinine Ratio 56.8 (10-20); Blood Urea Nitrogen 21 mg/dl (6-23); C Reactive Protein 6.73 mg/dl (0-0.5); Calcium 9.5 mg/dl (8.6-10.3); Carbon Dioxide 28 mmol/L (21-32); Chloride 101 mmol/L (98-107); Creatinine Clr Calc Pharmacy 217.3 ml/min; Est GFR (African American) > 150.0 ml/min; Est GFR (Non-African American) > 150.0 ml/min; Glucose 114 mg/dl (70-99(Fasting)); Sodium 138 mmol/L (136-145)
--- NOTE | 2023-10-01 12:25 | Hospitalist Progress Note ---
Date of Service October 01, 2023 Assessment & Plan (1) Tachycardia: Plan: maintaining low 100s throughout the day 09/29 however AM metoprolol was held no signs of new infection on exam Labs checked this morning 09/30 without signs of infection. Tachycardia has resolved. Do not suspect bacterial infection or autonomic storming at this time. (2) Decubitus ulcer of sacral region, stage 4: Plan: Present on admission. - s/p debridement in the OR by Dr Issa on 07/31/23. - Wound vac placed on 08/01. Wound vac then changed to a pulsating irrigation woundvac on 08/21/23. - Due to lack of improvement and worsening appearance of his ulcer he underwent repeat debridement in the OR by Dr Dorsey on 08/25/23. - on 09/04 the woundvac was removed due to candidiasis (extensive) in sacral area. Treated with fluconazole. Wound VAC was replaced on 09/18, draining purulent material. Continue wound care. Appreciate general surgery and wound care assistance. (3) Chronic osteomyelitis of sacrum: Plan: intra-op culture from 07/31 with MSSA, pseudomonas, providencia, and anaerobes. Sacral bone biopsy 08/24 with VRE and 2-week course of linezolid completed as of end 09/12. Per infectious disease, patient has completed 6 weeks of IV abx with concurrent wound vac. Mainly pip-tazo and cefepime (metronidazole added ) from 07/31/23 09/10/23 (4) Hospital acquired PNA: Plan: LLL -- resolved. Due to pseudomonas infection. Chronology of events: 08/01 - cxr with worsening infiltrates on left 08/03 - collapse LLL 08/03 - bronchoscopy by Dr Blancas with mucous plugging found in the left-sided bronchial tree s/p removal; 08/07 - s/p bronch by Dr Lock - minimal secretions LLL, no plugs; thick secretions in trach, however 08/09 - bronch cx - pseudomonas, intermediate resistance 08/09 - changed zosyn to cefepime 08/22 - cxr - ongoing LLL infiltrates/effusion - similar to previous imaging 09/17- cxr shows improved aeration within the left lung base trach routinely changed to cuffless by Dr. Street 09/09 Repeat chest x-ray done on 09/17 showed improved aeration within the left lung base. A 1 month follow-up is recommended (5) Severe protein-calorie malnutrition: Plan: Chronic. Improving slowly. Continue current nutrition recommendations Peg tube replaced 09/25 (6) History of DVT (deep vein thrombosis): Plan: RLE DVT discovered 11/2022. Had been on Eliquis 5mg BID since 12/12/22. Eliquis dosage has been reduced to 2.5mg BID (7) History of nontraumatic rupture of cerebral aneurysm: Plan: Patient is nonverbal at baseline with chronic contractures in all 4 extremities, has eye opening, roving eye movements, grimacing, sleep-wake cycles. Functional quadriplegia. CT head shows encephalomalacia and good shunt placement . He unfortunately suffered a ruptured brain aneurysm and SAH 08/2022. Status post craniotomy and evacuation of hematoma. 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 He has a ventriculoperitoneal shunt in place. Known resultant severe autonomic dysfunction / paroxysmal sympathetic hyperactivity / autonomic storm which is controlled on medications and has the potential to be confused with sepsis. Continue current medical management (8) Autonomic dysfunction: Plan: Stable. Continue dantrolene and bromocriptine. Continue gabapentin and baclofen for spasticity (9) Cardiomyopathy: Plan: last echo 07/11/23 - low normal EF 50-55%. No acute current problems. Continue beta-joon therapy. (10) Tracheostomy status: Plan: cont local trach care. On 09/09, trach changed to 8.0 uncuffed tracheostomy tube by Dr. Street (11) Candidiasis: Plan: multiple locations - back/buttocks, groin, R axillary region. Cont anti-yeast topical powders. Completed 7d diflucan 09/11 with significant improvement Plan Placement pending. Mother refuses to consider placement in [place] since it is so far away. Case management has scheduled a meeting with family members Family updated at bedside today Recent history (resolved issues): #Bacteremias 06/2023, completed treatment and resolved -- sources included: SSTI sacral decubitus ulcer, Group C strep bacteremia - source thought 2nd to sacral wound, Coag neg staph bacteremia - contaminant vs bacteremia Corynebacterium bacteremia #Bilateral calf wounds, have healed. Ear wound, has healed. #Pneumatosis coli seen on CT abdomen mid Jun 2023. Evaluated by General surgery last admission. since no surgical abdomen/peritonitis/symptoms no Rx recommended during that admission etiology of the CT findings was uncertain. abdominal exam remains benign / soft day-to-day, tolerates TF well. # transaminitis - resolved # tachycardia resolved lewis changed 09/05 trach changed 09/09 peg tube changed 09/25 Admission and Anticipated Discharge Date Admission Date: July 18, 2023 Subjective Patient lying in bed - eyes open. Aunt and mother preset at bedside. Aunt reports squeezing green purulent drainage from right great toe a few days ago - was unable to squeeze anything since then Review of Systems Review of Systems: Unobtainable due to reduced consciousness Physical Exam Physical Exam: General: eyes open, VS as above Resp: normal respiratory effort - trach dependent, lungs clear to auscultation CV: RRR, no murmur, ABD: soft, non distended Extremities:no edema or clubbing, flexion contractures present . Right great toe without signs of infection or abscess Neuro: non responsive, skull defect from prior craniotomy Results & Data Results & Data Vital Signs (Past 12 Hours) Vital Signs Temp Pulse Resp BP Pulse Ox O2 Del Method O2 Flow Rate 10/01/23 07:42 36.6 C 79 16 106/70 97 Oxymask, Trach Collar 7 10/01/23 07:32 Oxymask 7 FiO2 10/01/23 07:42 28 10/01/23 07:32 28 Laboratory Results CBC, chemistry and CRP reviewed PG Care Time/CCT Total # of Minutes Spent Total Time Spent with Patient: Total time spent is greater than 50% in coordination of care (as documented) at patient's floor/unit and/or counseling patient: Coding Level of Care Code 10693 SUB INP/OBS CARE 2/35MIN Diagnoses Tachycardia R00.0 Decubitus ulcer of sacral region, stage 4 L89.154 Chronic osteomyelitis of sacrum M86.68 Hospital acquired PNA J18.9; Y95 Severe protein-calorie malnutrition E43 History of DVT (deep vein thrombosis) Z86.718 History of nontraumatic rupture of cerebral aneurysm Z86.79 Autonomic dysfunction G90.9 Cardiomyopathy I42.9 Tracheostomy status Z93.0 Candidiasis B37.9
--- NOTE | 2023-10-02 10:35 | Hospitalist Progress Note ---
Date of Service October 02, 2023 Assessment & Plan (1) Tachycardia: Plan: maintaining low 100s throughout the day 09/29 however AM metoprolol was held no signs of new infection on exam Labs checked this morning 09/30 without signs of infection. Tachycardia has resolved. Do not suspect bacterial infection or autonomic storming at this time. Tachycardic 10/01 but PM metoprolol was held, as labs were just checked, do not suspect infection at this time - will decrease metoprolol 12.5mg BID and decrease hold parameters (2) Decubitus ulcer of sacral region, stage 4: Plan: Present on admission. - s/p debridement in the OR by Dr Dorsey-Herman on 07/31/23. - Wound vac placed on 08/01. Wound vac then changed to a pulsating irrigation woundvac on 08/21/23. - Due to lack of improvement and worsening appearance of his ulcer he underwent repeat debridement in the OR by Dr Dorsey on 08/25/23. - on 09/04 the woundvac was removed due to candidiasis (extensive) in sacral area. Treated with fluconazole. Wound VAC was replaced on 09/18, draining purulent material. Continue wound care. Appreciate general surgery and wound care assistance. (3) Chronic osteomyelitis of sacrum: Plan: intra-op culture from 07/31 with MSSA, pseudomonas, providencia, and anaerobes. Sacral bone biopsy 08/24 with VRE and 2-week course of linezolid completed as of end 09/12. Per infectious disease, patient has completed 6 weeks of IV abx with concurrent wound vac. Mainly pip-tazo and cefepime (metronidazole added ) from 07/31/23 09/10/23 (4) Hospital acquired PNA: Plan: LLL -- resolved. Due to pseudomonas infection. Chronology of events: 08/01 - cxr with worsening infiltrates on left 08/03 - collapse LLL 08/03 - bronchoscopy by Dr Blancas with mucous plugging found in the left-sided bronchial tree s/p removal; 08/07 - s/p bronch by Dr Lock - minimal secretions LLL, no plugs; thick secretions in trach, however 08/09 - bronch cx - pseudomonas, intermediate resistance 08/09 - changed zosyn to cefepime 08/22 - cxr - ongoing LLL infiltrates/effusion - similar to previous imaging 09/17- cxr shows improved aeration within the left lung base trach routinely changed to cuffless by Dr. Street 09/09 Repeat chest x-ray done on 09/17 showed improved aeration within the left lung ba se. A 1 month follow-up is recommended (5) Severe protein-calorie malnutrition: Plan: Chronic. Improving slowly. Continue current nutrition recommendations Peg tube replaced 09/25 (6) History of DVT (deep vein thrombosis): Plan: RLE DVT discovered 11/2022. Had been on Eliquis 5mg BID since 12/12/22. Eliquis dosage has been reduced to 2.5mg BID (7) History of nontraumatic rupture of cerebral aneurysm: Plan: Patient is nonverbal at baseline with chronic contractures in all 4 extremities, has eye opening, roving eye movements, grimacing, sleep-wake cycles. Functional quadriplegia. CT head shows encephalomalacia and good shunt placement . He unfortunately suffered a ruptured brain aneurysm and SAH 08/2022. Status post craniotomy and evacuation of hematoma. 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 He has a ventriculoperitoneal shunt in place. Known resultant severe autonomic dysfunction / paroxysmal sympathetic hyperactivity / autonomic storm which is controlled on medications and has the potential to be confused with sepsis. Continue current medical management (8) Autonomic dysfunction: Plan: Stable. Continue dantrolene and bromocriptine. Continue gabapentin and baclofen for spasticity (9) Cardiomyopathy: Plan: last echo 07/11/23 - low normal EF 50-55%. No acute current problems. Continue beta-joon therapy. (10) Tracheostomy status: Plan: cont local trach care. On 09/09, trach changed to 8.0 uncuffed tracheostomy tube by Dr. Street (11) Candidiasis: Plan: multiple locations - back/buttocks, groin, R axillary region. Cont anti-yeast topical powders. Completed 7d diflucan 09/11 with significant improvement Plan Placement pending. Family meeting held 09/30 Family updated at bedside 09/30 Recent history (resolved issues): #Bacteremias 06/2023, completed treatment and resolved -- sources included: SSTI sacral decubitus ulcer, Group C strep bacteremia - source thought 2nd to sacral wound, Coag neg staph bacteremia - contaminant vs bacteremia Corynebacterium bacteremia #Bilateral calf wounds, have healed. Ear wound, has healed. #Pneumatosis coli seen on CT abdomen mid Jun 2023. Evaluated by General surgery last admission. since no surgical abdomen/peritonitis/symptoms no Rx recommended during that admission etiology of the CT findings was uncertain. abdominal exam remains benign / soft day-to-day, tolerates TF well. # transaminitis - resolved lewis changed 09/05 trach changed 09/09 peg tube changed 09/25 Admission and Anticipated Discharge Date Admission Date: July 18, 2023 Supervising Physician Co-Signing Physician Notes Attending Attestation - Chart reviewed, care plan d/w REBECCA Douglas. I agree w/ the coronado components of her documentation. Wilner Lloyd MD Subjective eyes closed, no family at bedside. per RN no changes/events Review of Systems Review of Systems: Unobtainable due to reduced consciousness Physical Exam Physical Exam: General: eyes closed, VS as above Resp: normal respiratory effort - trach dependent, lungs clear to auscultation CV: tachycardic, no murmur, ABD: soft, non distended Extremities:no edema or clubbing, flexion contractures present . Right great toe without signs of infection or abscess Neuro: non responsive, skull defect from prior craniotomy Results & Data Results & Data Vital Signs (Past 12 Hours) Vital Signs Temp Pulse Resp BP Pulse Ox O2 Del Method O2 Flow Rate 10/02/23 07:34 Oxymask, Trach Collar 7 10/02/23 06:32 36.6 C 110 H 18 109/75 96 Trach Collar 6 FiO2 10/02/23 07:34 28 10/02/23 06:32 PG Care Time/CCT Total # of Minutes Spent Total Time Spent with Patient: Total time spent is greater than 50% in coordination of care (as documented) at patient's floor/unit and/or counseling patient: Coding Level of Care Code 74185 SUB INP/OBS CARE 125MIN Diagnoses Tachycardia R00.0 Decubitus ulcer of sacral region, stage 4 L89.154 Chronic osteomyelitis of sacrum M86.68 Hospital acquired PNA J18.9; Y95 Severe protein-calorie malnutrition E43 History of DVT (deep vein thrombosis) Z86.718 History of nontraumatic rupture of cerebral aneurysm Z86.79 Autonomic dysfunction G90.9 Cardiomyopathy I42.9 Tracheostomy status Z93.0 Candidiasis B37.9
[2023-10-02] MEDS: METOPROLOL TARTRATE 25 MG TAB PEG SCH (21:58)
--- NOTE | 2023-10-03 10:02 | Hospitalist Progress Note ---
Date of Service October 03, 2023 Assessment & Plan (1) Tachycardia: Plan: maintaining low 100s throughout the day 09/29 however AM metoprolol was held no signs of new infection on exam Labs checked this morning 09/30 without signs of infection. Tachycardia has resolved. Do not suspect bacterial infection or autonomic storming at this time. Tachycardic 10/01 but PM metoprolol was held, as labs were just checked, do not suspect infection at this time - will decrease metoprolol 12.5mg BID and decrease hold parameters Tachycardia improving 10/02 (2) Decubitus ulcer of sacral region, stage 4: Plan: Present on admission. - s/p debridement in the OR by Dr Issa on 07/31/23. - Wound vac placed on 08/01. Wound vac then changed to a pulsating irrigation woundvac on 08/21/23. - Due to lack of improvement and worsening appearance of his ulcer he underwent repeat debridement in the OR by Dr Dorsey on 08/25/23. - on 09/04 the woundvac was removed due to candidiasis (extensive) in sacral are a. Treated with fluconazole. Wound VAC was replaced on 09/18, draining purulent material. Continue wound care. Appreciate general surgery and wound care assistance. (3) Chronic osteomyelitis of sacrum: Plan: intra-op culture from 07/31 with MSSA, pseudomonas, providencia, and anaerobes. Sacral bone biopsy 08/24 with VRE and 2-week course of linezolid completed as of end 09/12. Per infectious disease, patient has completed 6 weeks of IV abx with concurrent wound vac. Mainly pip-tazo and cefepime (metronidazole added ) from 07/31/23 09/10/23 (4) Hospital acquired PNA: Plan: LLL -- resolved. Due to pseudomonas infection. Chronology of events: 08/01 - cxr with worsening infiltrates on left 08/03 - collapse LLL 08/03 - bronchoscopy by Dr Blancas with mucous plugging found in the left-sided bronchial tree s/p removal; 08/07 - s/p bronch by Dr Lock - minimal secretions LLL, no plugs; thick secretions in trach, however 08/09 - bronch cx - pseudomonas, intermediate resistance 08/09 - changed zosyn to cefepime 08/22 - cxr - ongoing LLL infiltrates/effusion - similar to previous imaging 09/17- cxr shows improved aeration within the left lung base trach routinely changed to cuffless by Dr. Street 09/09 Repeat chest x-ray done on 09/17 showed improved aeration within the left lung base. A 1 month follow-up is recommended (5) Severe protein-calorie malnutrition: Plan: Chronic. Improving slowly. Continue current nutrition recommendations Peg tube replaced 09/25 (6) History of DVT (deep vein thrombosis): Plan: RLE DVT discovered 11/2022. Had been on Eliquis 5mg BID since 12/12/22. Eliquis dosage has been reduced to 2.5mg BID (7) History of nontraumatic rupture of cerebral aneurysm: Plan: Patient is nonverbal at baseline with chronic contractures in all 4 extremities, has eye opening, roving eye movements, grimacing, sleep-wake cycles. Functional quadriplegia. CT head shows encephalomalacia and good shunt placement . He unfortunately suffered a ruptured brain aneurysm and SAH 08/2022. Status post craniotomy and evacuation of hematoma. 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 He has a ventriculoperitoneal shunt in place. Known resultant severe autonomic dysfunction / paroxysmal sympathetic hyperactivity / autonomic storm which is controlled on medications and has the potential to be confused with sepsis. Continue current medical management (8) Autonomic dysfunction: Plan: Stable. Continue dantrolene and bromocriptine. Continue gabapentin and baclofen for spasticity (9) Cardiomyopathy: Plan: last echo 07/11/23 - low normal EF 50-55%. No acute current problems. Continue beta-joon therapy. (10) Tracheostomy status: Plan: cont local trach care. On 09/09, trach changed to 8.0 uncuffed tracheostomy tube by Dr. Street (11) Candidiasis: Plan: multiple locations - back/buttocks, groin, R axillary region. Cont anti-yeast topical powders. Completed 7d diflucan 09/11 with significant improvement Plan Placement pending. Family meeting held 09/30 Family updated at bedside 09/30 Recent history (resolved issues): #Bacteremias 06/2023, completed treatment and resolved -- sources included: SSTI sacral decubitus ulcer, Group C strep bacteremia - source thought 2nd to sacral wound, Coag neg staph bacteremia - contaminant vs bacteremia Corynebacterium bacteremia #Bilateral calf wounds, have healed. Ear wound, has healed. #Pneumatosis coli seen on CT abdomen mid Jun 2023. Evaluated by General surgery last admission. since no surgical abdomen/peritonitis/symptoms no Rx recommended during that admission etiology of the CT findings was uncertain. abdominal exam remains benign / soft day-to-day, tolerates TF well. # transaminitis - resolved lewis changed 09/05 trach changed 09/09 peg tube changed 09/25 Admission and Anticipated Discharge Date Admission Date: July 18, 2023 Supervising Physician Co-Signing Physician Notes Attending Attestation - Chart reviewed, care plan d/w REBECCA Douglas. I agree w/ the coronado components of her documentation. Wilner Lloyd MD Subjective eyes closed, no family at bedside. 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 Right great toe without signs of infection or abscess Neuro: non responsive, skull defect from prior craniotomy Results & Data Results & Data Vital Signs (Past 12 Hours) Vital Signs Temp Pulse Resp BP BP Pulse Ox O2 Del Method 10/03/23 08:54 Trach Collar 10/03/23 07:21 36.6 C 96 H 16 118/82 98 Trach Collar 10/03/23 01:23 37 C 92 H 16 102/70 94 Trach Collar O2 Flow Rate FiO2 10/03/23 08:54 6 28 10/03/23 07:21 6 10/03/23 01:23 6.5 PG Care Time/CCT Total # of Minutes Spent Total Time Spent with Patient: Total time spent is greater than 50% in coordination of care (as documented) at patient's floor/unit and/or counseling patient: Coding Level of Care Code 72485 SUB INP/OBS CARE 125MIN Diagnoses Tachycardia R00.0 Decubitus ulcer of sacral region, stage 4 L89.154 Chronic osteomyelitis of sacrum M86.68 Hospital acquired PNA J18.9; Y95 Severe protein-calorie malnutrition E43 History of DVT (deep vein thrombosis) Z86.718 History of nontraumatic rupture of cerebral aneurysm Z86.79 Autonomic dysfunction G90.9 Cardiomyopathy I42.9 Tracheostomy status Z93.0 Candidiasis B37.9
--- NOTE | 2023-10-04 08:22 | Hospitalist Progress Note ---
Date of Service October 04, 2023 Assessment & Plan (1) Tachycardia: Plan: maintaining low 100s throughout the day 09/29 however AM metoprolol was held. SBP now 129 no signs of new infection on exam Labs checked without signs of infection. Tachycardia has resolved. Do not suspect bacterial infection or autonomic storming at this time. Tachycardic 10/01 but PM metoprolol was held, as labs were just checked, do not suspect infection at this time - will decrease metoprolol 12.5mg BID and decrease hold parameters Tachycardia resolved. BP 129/81 (2) Chronic osteomyelitis of sacrum: Plan: intra-op culture from 07/31 with MSSA, pseudomonas, providencia, and anaerobes. Sacral bone biopsy 08/24 with VRE and 2-week course of linezolid completed as of end 09/12. Per infectious disease, patient has completed 6 weeks of IV abx with concurrent wound vac. Mainly pip-tazo and cefepime (metronidazole added ) from 07/31/23 09/10/23 (3) Hospital acquired PNA: Plan: LLL -- resolved. Due to pseudomonas infection. Chronology of events: 08/01 - cxr with worsening infiltrates on left 08/03 - collapse LLL 08/03 - bronchoscopy by Dr Blancas with mucous plugging found in the left-sided bronchial tree s/p removal; 08/07 - s/p bronch by Dr Lock - minimal secretions LLL, no plugs; thick secretions in trach, however 08/09 - bronch cx - pseudomonas, intermediate resistance 08/09 - changed zosyn to cefepime 08/22 - cxr - ongoing LLL infiltrates/effusion - similar to previous imaging 09/17- cxr shows improved aeration within the left lung base 09/26 - CXR with resolution of previously noted left lower lung airspace opacity. trach routinely changed to cuffless by Dr. Street 09/09 (4) Severe protein-calorie malnutrition: Plan: Chronic. Improving slowly. Continue current nutrition recommendations Peg tube replaced 4/5 Tolerating tube feeds Continue with feedings of FiberSource HN at 70 mL/h and Prosource no carb twice daily via PEG tube. Continue free water flushes 125 mL every 4 hours via PEG for an additional 750 mL and a total of 2100 milliliters per day. Continue multivitamin and vitamin C via PEG tube for wound healing Nutrition scheduled to follow-up 10/07/2023. Call if needed earlier Most recent LFTs 09/30/2023 -repeat q. 7 days Check PRP and CBC tomorrow Appreciate input from dietitian (5) History of DVT (deep vein thrombosis): Plan: RLE DVT discovered 11/2022. Had been on Eliquis 5mg BID since 12/12/22. Eliquis dosage has been reduced to 2.5mg BID No evidence of asymmetrical edema of the lower extremities. No evidence of edema of upper extremities. (6) History of nontraumatic rupture of cerebral aneurysm: Plan: Patient is nonverbal at baseline with chronic contractures in all 4 extremities, has eye opening, roving eye movements, grimacing, sleep-wake cycles. Functional quadriplegia. CT head shows encephalomalacia and good shunt placement . He unfortunately suffered a ruptured brain aneurysm and SAH 08/2022. Status post craniotomy and evacuation of hematoma. 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 He has a ventriculoperitoneal shunt in place. Known resultant severe autonomic dysfunction / paroxysmal sympathetic hyperactivity / autonomic storm which is controlled on medications and has the potential to be confused with sepsis. Continue current medical management Case management working on placement for tracheostomy care. Please refer to case management acute notes (7) Autonomic dysfunction: Plan: Stable. Continue dantrolene via PEG Tube only Continue bromocriptine. Continue gabapentin and baclofen for spasticity (8) Cardiomyopathy: Plan: last echo 07/11/23 - low normal EF 50-55%. No acute current problems. Continue beta-joon therapy. (9) Tracheostomy status: Plan: cont local trach care. On 09/09, trach changed to 8.0 uncuffed tracheostomy tube by Dr. Street (10) Candidiasis: Plan: multiple locations - back/buttocks, groin, R axillary region. Cont anti-yeast topical powders. Completed 7d diflucan 09/11 with significant improvement Plan Placement pending. Family meeting held 09/30 Family updated at bedside 09/30 Recent history (resolved issues): #Bacteremias 06/2023, completed treatment and resolved -- sources included: SSTI sacral decubitus ulcer, Group C strep bacteremia - source thought 2nd to sacral wound, Coag neg staph bacteremia - contaminant vs bacteremia Corynebacterium bacteremia #Bilateral calf wounds, have healed. Ear wound, has healed. #Pneumatosis coli seen on CT abdomen mid Jun 2023. Evaluated by General surgery last admission. since no surgical abdomen/peritonitis/symptoms no Rx recommended during that admission etiology of the CT findings was uncertain. abdominal exam remains benign / soft day-to-day, tolerates TF well. # transaminitis - resolved lewis changed 09/05 trach changed 09/09 peg tube changed 09/25 Admission and Anticipated Discharge Date Admission Date: July 18, 2023 Supervising Physician Co-Signing Physician Notes Attending Attestation - Chart reviewed, care plan d/w PA Jayce Cid. I agree w/ the coronado components of his documentation. Wilner Lloyd MD Subjective Attending: Dr. Lloyd 33-year-old male admitted 07/18/2023. Hx of ruptured cerebral aneurysm August 2022. With decubitus ulcer of the sacral region and chronic osteomyelitis of the sacrum. Tracheostomy and PEG tube in place. Awaiting placement. is compiling a list of facilities within a 50 mile radius that can take trachs. So far there are 5 facilities but none of them have beds available at this time. Follow up with [facility] on Friday and refax referrals to those facilities who can manage a trach. Patient seen and examined at bedside. No family in the room at the time of my visit. Discussed with Patient's nurse. No acute changes from yesterday. Continue to await referral for placement for trach care. Afebrile. No increase in sputum. No hemoptyis. No need for deep suction. Review of Systems 2 Review of Systems: Other Unobtainable secondary to cerebral aneurysm rupture Physical Exam 2 Physical Exam: GENERAL : No acute distress EYES: No icterus, gaze conjugate NOSE: No evidence of epistaxis MOUTH: No lesions or candidiasis NECK: Supple, Trach secure LUNGS: CTA B/L, no wheezes, rales or rhonchi HEART: Regular, rate controlled ABDOMEN: Soft, NT, ND, BS Present. Peg tube secure, tube feeds going EXTREMITIES: No LE edema, pedal pulses intact NEURO: Awake. Nonverbal secondary to cerebral aneurysm rupture Results & Data Results & Data Vital Signs (Past 12 Hours) Vital Signs Temp Pulse Pulse Resp BP Pulse Ox O2 Del Method 10/04/23 07:38 36.8 C 75 15 110/71 98 Trach Collar 10/04/23 04:45 82 99 Trach Collar 10/03/23 22:40 Trach Collar 10/03/23 21:19 36.9 C 81 16 111/72 99 Trach Collar O2 Flow Rate 10/04/23 07:38 6 10/04/23 04:45 6 10/03/23 22:40 6 10/03/23 21:19 6 Laboratory Results 10/01/23 06:22 10/01/23 06:22 Diagnostic Findings Chest X-Ray 09/18/23 12:39 XR chest 1V portable HISTORY: Left lower lobe pneumonia. follow up COMPARISON: Chest 08/23/2023. FINDINGS: Tracheostomy tube appears in good position. There is a left-sided shunt catheter. The visualized tubing appears intact. No pneumothorax. There are low lung volumes. The small left pleural effusion has resolved. Small patchy densities at the left lung base have also improved. The right lung is clear. No evidence for pulmonary edema. The heart is normal in size. No acute fractures. IMPRESSION: Improved aeration within the left lung base with a small density remaining. A 1 month chest x-ray follow-up recommended to ensure complete resolution. ACT 112: Negative or not required by law. Electronically signed by: Víctor Cox M.D. 09/18/2023 2:14 PM Chest X-Ray 09/27/23 10:03 XR chest 1V portable CLINICAL HISTORY: hypoxia TECHNIQUE: Single frontal radiograph of the chest was obtained. Comparison: Comparison is made to chest radiograph 09/10/2023 FINDINGS: Tracheostomy tube is seen. A INTERPRETER TRANSLATOR shunt is seen. The cardiomediastinal silhouette is normal. The lungs are clear. No evidence of pleural effusion or pneumothorax. IMPRESSION: Interval resolution of previously noted left lower lung airspace opacity. ACT 112: Negative or not required by law. Electronically signed by: Luis Denise M.D. 09/27/2023 2:15 PM PG Care Time/CCT Total # of Minutes Spent Total Time Spent with Patient: Total time spent is greater than 50% in coordination of care (as documented) at patient's floor/unit and/or counseling patient: Coding Level of Care Code 10930 SUB INP/OBS CARE 1/25MIN Diagnoses Tachycardia R00.0 Chronic osteomyelitis of sacrum M86.68 Hospital acquired PNA J18.9; Y95 Severe protein-calorie malnutrition E43 History of DVT (deep vein thrombosis) Z86.718 History of nontraumatic rupture of cerebral aneurysm Z86.79 Autonomic dysfunction G90.9 Cardiomyopathy I42.9 Tracheostomy status Z93.0 Candidiasis B37.9
[2023-10-05 06:42] LABS: Hematocrit (blood only) 33.2 % (42.0-52.0); Hemoglobin 10.4 g/dl (14.0-18.0); Mean Corpuscular Hgb Conc 31.3 g/dL (32.0-36.0); Mean Corpuscular Volume 95.7 fL (80.0-100.0); Mean Platelet Volume 11.9 fL (9.4-12.4); Platelet Count 258 K/uL (130-400); RDW Coefficient of Variation 14.6 % (11.5-14.5); RDW Standard Deviation 50.9 fL (36.4-46.3); Red Blood Count 3.47 M/uL (4.70-6.10); White Blood Count 5.04 K/ul (4.8-10.8)
[2023-10-05 07:04] LABS: Anion Gap 9 (3-11); BUN Creatinine Ratio 65.9 (10-20); Blood Urea Nitrogen 27 mg/dl (6-23); Calcium 9.5 mg/dl (8.6-10.3); Carbon Dioxide 29 mmol/L (21-32); Chloride 102 mmol/L (98-107); Est GFR (African American) > 150.0 ml/min; Est GFR (Non-African American) > 150.0 ml/min; Glucose 116 mg/dl (70-99(Fasting)); Potassium 3.9 mmol/L (3.5-5.1); Sodium 140 mmol/L (136-145)
--- NOTE | 2023-10-05 14:37 | Hospitalist Progress Note ---
Date of Service October 05, 2023 Assessment & Plan (1) Decubitus ulcer of sacral region, stage 4: Plan: Present on admission. - s/p debridement in the OR by Dr Issa on 07/31/23. - Wound vac placed on 08/01. Wound vac then changed to a pulsating irrigation woundvac on 08/21/23. - Due to lack of improvement and worsening appearance of his ulcer he underwent repeat debridement in the OR by Dr Dorsey on 08/25/23. - on 09/04 the woundvac was removed due to candidiasis (extensive) in sacral area. Treated with fluconazole. Wound VAC was replaced on 09/18, draining purulent material. Continue wound care. Appreciate general surgery and wound care assistance. (2) Chronic osteomyelitis of sacrum: Plan: intra-op culture from 07/31 with MSSA, pseudomonas, providencia, and anaerobes. Sacral bone biopsy 08/24 with VRE and 2-week course of linezolid completed as of end 09/12. Per infectious disease, patient has completed 6 weeks of IV abx with concurrent wound vac. Mainly pip-tazo and cefepime (metronidazole added ) from 07/31/23 09/10/23 (3) Hospital acquired PNA: Plan: LLL -- resolved. Due to pseudomonas infection. Chronology of events: 08/01 - cxr with worsening infiltrates on left 08/03 - collapse LLL 08/03 - bronchoscopy by Dr Blancas with mucous plugging found in the left-sided bronchial tree s/p removal; 08/07 - s/p bronch by Dr Lock - minimal secretions LLL, no plugs; thick secretions in trach, however 08/09 - bronch cx - pseudomonas, intermediate resistance 08/09 - changed zosyn to cefepime 08/22 - cxr - ongoing LLL infiltrates/effusion - similar to previous imaging 09/17- cxr shows improved aeration within the left lung base trach routinely changed to cuffless by Dr. Street 09/09 Repeat chest x-ray done on 09/17 showed improved aeration within the left lung base. A 1 month follow-up is recommended (4) Severe protein-calorie malnutrition: Plan: Chronic. Improving slowly. Continue current nutrition recommendations Peg tube replaced 09/25 (5) History of DVT (deep vein thrombosis): Plan: RLE DVT discovered 11/2022. Had been on Eliquis 5mg BID since 12/12/22. Eliquis dosage has been reduced to 2.5mg BID (6) History of nontraumatic rupture of cerebral aneurysm: Plan: Patient is nonverbal at baseline with chronic contractures in all 4 extremities, has eye opening, roving eye movements, grimacing, sleep-wake cycles. Functional quadriplegia. CT head shows encephalomalacia and good shunt placement . He unfortunately suffered a ruptured brain aneurysm and SAH 08/2022. Status post craniotomy and evacuation of hematoma. 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 He has a ventriculoperitoneal shunt in place. Known resultant severe autonomic dysfunction / paroxysmal sympathetic hyperactivity / autonomic storm which is controlled on medications and has the potential to be confused with sepsis. Continue current medical management (7) Autonomic dysfunction: Plan: Stable. Continue dantrolene and bromocriptine. Continue gabapentin and baclofen for spasticity (8) Cardiomyopathy: Plan: last echo 07/11/23 - low normal EF 50-55%. No acute current problems. Continue beta-joon therapy. (9) Tracheostomy status: Plan: cont local trach care. On 09/09, trach changed to 8.0 uncuffed tracheostomy tube by Dr. Street (10) Candidiasis: Plan: multiple locations - back/buttocks, groin, R axillary region. Cont anti-yeast topical powders. Completed 7d diflucan 09/11 with significant improvement (11) Tachycardia: Plan: maintaining low 100s throughout the day 09/29 however AM metoprolol was held no signs of new infection on exam Labs checked this morning 09/30 without signs of infection. Tachycardia has resolved. Do not suspect bacterial infection or autonomic storming at this time. Tachycardic 10/01 but PM metoprolol was held, as labs were just checked, do not suspect infection at this time - will decrease metoprolol 12.5mg BID and decrease hold parameters Tachycardia resolved Plan Placement pending. Family meeting held 09/30 Family updated at bedside 10/04 Recent history (resolved issues): #Bacteremias 06/2023, completed treatment and resolved -- sources included: SSTI sacral decubitus ulcer, Group C strep bacteremia - source thought 2nd to sacral wound, Coag neg staph bacteremia - contaminant vs bacteremia Corynebacterium bacteremia #Bilateral calf wounds, have healed. Ear wound, has healed. #Pneumatosis coli seen on CT abdomen mid Jun 2023. Evaluated by General surgery last admission. since no surgical abdomen/peritonitis/symptoms no Rx recommended during that admission etiology of the CT findings was uncertain. abdominal exam remains benign / soft day-to-day, tolerates TF well. # transaminitis - resolved lewis changed 09/05 trach changed 09/09 peg tube changed 09/25 Admission and Anticipated Discharge Date Admission Date: July 18, 2023 Supervising Physician Co-Signing Physician Notes Attending Attestation - Chart reviewed, care plan d/w REBECCA Douglas. I agree w/ the coronado components of her documentation. Ms Douglas and I began completion of a [employer] Disability form as requested by the pt's mother. Ms Douglas spent at least 20-25 minutes on this form, in addition to daily in-person rounding. Wilner Lloyd MD Subjective patient eyes open. no acute changes family present at bedside has paperwork they need filled out Review of Systems Review of Systems: Unobtainable due to cognitive status and Unobtainable due to reduced consciousness Physical Exam Physical Exam: General: eyes closed, VS as above Resp: normal respiratory effort - trach dependent, lungs clear to auscultation CV: RRR, no murmur, ABD: soft, non distended Extremities:no edema or clubbing, flexion contractures present . Right great toe without signs of infection or abscess Neuro: non responsive, skull defect from prior craniotomy Results & Data Results & Data Vital Signs (Past 12 Hours) Vital Signs Temp Pulse Resp BP Pulse Ox O2 Del Method O2 Flow Rate 10/05/23 14:22 36.8 C 69 15 100/66 98 Trach Collar 6 10/05/23 07:31 36.5 C 79 17 105/68 98 Trach Collar 6 10/05/23 07:30 Trach Collar 6 PG Care Time/CCT Total # of Minutes Spent Total Time Spent with Patient: Total time spent is greater than 50% in coordination of care (as documented) at patient's floor/unit and/or counseling patient: Coding Level of Care Code 25540 SUB INP/OBS CARE 2/35MIN Diagnoses Decubitus ulcer of sacral region, stage 4 L89.154 Chronic osteomyelitis of sacrum M86.68 Hospital acquired PNA J18.9; Y95 Severe protein-calorie malnutrition E43 History of DVT (deep vein thrombosis) Z86.718 History of nontraumatic rupture of cerebral aneurysm Z86.79 Autonomic dysfunction G90.9 Cardiomyopathy I42.9 Tracheostomy status Z93.0 Candidiasis B37.9 Tachycardia R00.0
--- NOTE | 2023-10-06 14:13 | Hospitalist Progress Note ---
Date of Service October 06, 2023 Assessment & Plan (1) Decubitus ulcer of sacral region, stage 4: Plan: Present on admission. - s/p debridement in the OR by Dr Issa on 07/31/23. - Wound vac placed on 08/01. Wound vac then changed to a pulsating irrigation woundvac on 08/21/23. - Due to lack of improvement and worsening appearance of his ulcer he underwent repeat debridement in the OR by Dr Dorsey on 08/25/23. - on 09/04 the woundvac was removed due to candidiasis (extensive) in sacral area. Treated with fluconazole. Wound VAC was replaced on 09/18, draining purulent material. Continue wound care. Appreciate general surgery and wound care assistance. wound care removed wound VAC over the weekend, replace 10/05 (2) Chronic osteomyelitis of sacrum: Plan: intra-op culture from 07/31 with MSSA, pseudomonas, providencia, and anaerobes. Sacral bone biopsy 08/24 with VRE and 2-week course of linezolid completed as of end 09/12. Per infectious disease, patient has completed 6 weeks of IV abx with concurrent wound vac. Mainly pip-tazo and cefepime (metronidazole added ) from 07/31/23 09/10/23 (3) Hospital acquired PNA: Plan: LLL -- resolved. Due to pseudomonas infection. Chronology of events: 08/01 - cxr with worsening infiltrates on left 08/03 - collapse LLL 08/03 - bronchoscopy by Dr Blancas with mucous plugging found in the left-sided bronchial tree s/p removal; 08/07 - s/p bronch by Dr Lock - minimal secretions LLL, no plugs; thick secretions in trach, however 08/09 - bronch cx - pseudomonas, intermediate resistance 08/09 - changed zosyn to cefepime 08/22 - cxr - ongoing LLL infiltrates/effusion - similar to previous imaging 09/17- cxr shows improved aeration within the left lung base trach routinely changed to cuffless by Dr. Street 09/09 Repeat chest x-ray done on 09/17 showed improved aeration within the left lung base. A 1 month follow-up is recommended (4) Severe protein-calorie malnutrition: Plan: Chronic. Improving slowly. Continue current nutrition recommendations Peg tube replaced 09/25 (5) History of DVT (deep vein thrombosis): Plan: RLE DVT discovered 11/2022. Had been on Eliquis 5mg BID since 12/12/22. Eliquis dosage has been reduced to 2.5mg BID (6) History of nontraumatic rupture of cerebral aneurysm: Plan: Patient is nonverbal at baseline with chronic contractures in all 4 extremities, has eye opening, roving eye movements, grimacing, sleep-wake cycles. Functional quadriplegia. CT head shows encephalomalacia and good shunt placement . He unfortunately suffered a ruptured brain aneurysm and SAH 08/2022. Status post craniotomy and evacuation of hematoma. 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 He has a ventriculoperitoneal shunt in place. Known resultant severe autonomic dysfunction / paroxysmal sympathetic hyperactivity / autonomic storm which is controlled on medications and has the potential to be confused with sepsis. Continue current medical management (7) Autonomic dysfunction: Plan: Stable. Continue dantrolene and bromocriptine. Continue gabapentin and baclofen for spasticity (8) Cardiomyopathy: Plan: last echo 07/11/23 - low normal EF 50-55%. No acute current problems. Continue beta-joon therapy. (9) Tracheostomy status: Plan: cont local trach care. On 09/09, trach changed to 8.0 uncuffed tracheostomy tube by Dr. Street (10) Candidiasis: Plan: multiple locations - back/buttocks, groin, R axillary region. Cont anti-yeast topical powders. Completed 7d diflucan 09/11 with significant improvement (11) Tachycardia: Plan: maintaining low 100s throughout the day 09/29 however AM metoprolol was held no signs of new infection on exam Labs checked this morning 09/30 without signs of infection. Tachycardia has resolved. Do not suspect bacterial infection or autonomic storming at this time. Tachycardic 10/01 but PM metoprolol was held, as labs were just checked, do not suspect infection at this time - will decrease metoprolol 12.5mg BID and decrease hold parameters Tachycardia resolved Plan Placement pending. Family meeting held 09/30 Family updated at bedside 10/05 Recent history (resolved issues): #Bacteremias 06/2023, completed treatment and resolved -- sources included: SSTI sacral decubitus ulcer, Group C strep bacteremia - source thought 2nd to sacral wound, Coag neg staph bacteremia - contaminant vs bacteremia Corynebacterium bacteremia #Bilateral calf wounds, have healed. Ear wound, has healed. #Pneumatosis coli seen on CT abdomen mid Jun 2023. Evaluated by General surgery last admission. since no surgical abdomen/peritonitis/symptoms no Rx recommended during that admission etiology of the CT findings was uncertain. abdominal exam remains benign / soft day-to-day, tolerates TF well. # transaminitis - resolved lewis changed 09/05 trach changed 09/09 peg tube changed 09/25 Admission and Anticipated Discharge Date Admission Date: July 18, 2023 Supervising Physician Co-Signing Physician Notes Attending Attestation - Chart reviewed in detail, care plan d/w REBECCA Douglas. I agree w/ the coronado components of her documentation. Of note - I did not perform a personal bedside visit or examination today. Wilner Lloyd MD Subjective family present at bedside performing passive ROM exercises no new concerns Physical Exam Physical Exam: General: eyes closed, VS as above Resp: normal respiratory effort - trach dependent, lungs clear to auscultation CV: RRR, no murmur, ABD: soft, non distended Extremities:no edema or clubbing, flexion contractures present . Right great toe without signs of infection or abscess Neuro: non responsive, skull defect from prior craniotomy Results & Data Results & Data Vital Signs (Past 12 Hours) Vital Signs Temp Pulse Resp BP Pulse Ox O2 Del Method O2 Flow Rate 10/06/23 08:00 Trach Collar 6 10/06/23 07:58 36.7 C 68 17 106/71 98 Trach Collar PG Care Time/CCT Total # of Minutes Spent Total Time Spent with Patient: Total time spent is greater than 50% in coordination of care (as documented) at patient's floor/unit and/or counseling patient: Coding Level of Care Code 12303 SUB INP/OBS CARE 1/25MIN Diagnoses Decubitus ulcer of sacral region, stage 4 L89.154 Chronic osteomyelitis of sacrum M86.68 Hospital acquired PNA J18.9; Y95 Severe protein-calorie malnutrition E43 History of DVT (deep vein thrombosis) Z86.718 History of nontraumatic rupture of cerebral aneurysm Z86.79 Autonomic dysfunction G90.9 Cardiomyopathy I42.9 Tracheostomy status Z93.0 Candidiasis B37.9 Tachycardia R00.0
[2023-10-07 06:23] LABS: Albumin Level 3.9 gm/dl (3.4-5.0); Bilirubin,Total 0.4 mg/dl (0.2-1.0); Total Protein 7.4 gm/dl (6.0-8.3)
--- NOTE | 2023-10-07 07:58 | Hospitalist Progress Note ---
Date of Service October 07, 2023 Assessment & Plan (1) Decubitus ulcer of sacral region, stage 4: Plan: Present on admission. - s/p debridement in the OR by Dr Issa on 07/31/23. - Wound vac placed on 08/01. Wound vac then changed to a pulsating irrigation woundvac on 08/21/23. - Due to lack of improvement and worsening appearance of his ulcer he underwent repeat debridement in the OR by Dr Dorsey on 08/25/23. On 09/04 the woundvac was removed due to candidiasis (extensive) in sacral area. Treated with fluconazole. Wound VAC was replaced on 09/18, draining purulent material. Continue wound care. Appreciate general surgery and wound care assistance. Wound care removed wound VAC over the weekend, replaced 10/05 10/06 Remains off abx, afebrile. Wound vac in place Meeting w/ family and providers 10/05, paperwork completed, original back to patients room. CM following for ongoing placement concerns/issues (2) Chronic osteomyelitis of sacrum: Plan: intra-op culture from 07/31 with MSSA, pseudomonas, providencia, and anaerobes. Sacral bone biopsy 08/24 with VRE and 2-week course of linezolid completed as of end 09/12. Per infectious disease, patient has completed 6 weeks of IV abx with concurrent wound vac. Mainly pip-tazo and cefepime (metronidazole added ) from 07/31/23 09/10/23 Remains off abx, afebrile and continued wound care/repositioning (3) Hospital acquired PNA: Plan: LLL -- resolved. Due to pseudomonas infection. Chronology of events: 08/01 - cxr with worsening infiltrates on left 08/03 - collapse LLL 08/03 - bronchoscopy by Dr Blancas with mucous plugging found in the left-sided bronchial tree s/p removal; 08/07 - s/p bronch by Dr Lock - minimal secretions LLL, no plugs; thick secretions in trach, however 08/09 - bronch cx - pseudomonas, intermediate resistance 08/09 - changed zosyn to cefepime 08/22 - cxr - ongoing LLL infiltrates/effusion - similar to previous imaging 09/17- cxr shows improved aeration within the left lung base trach routinely changed to cuffless by Dr. Street 09/09 Repeat chest x-ray done on 09/17 showed improved aeration within the left lung base. A 1 month follow-up is recommended (10/18 if continues inpatient) (4) Severe protein-calorie malnutrition: Plan: Chronic. Improving slowly. Peg tube replaced 09/25 , tolerating Continue current nutrition recommendations (5) History of DVT (deep vein thrombosis): Plan: RLE DVT discovered 11/2022. Had been on Eliquis 5mg BID since 12/12/22. Eliquis dosage has been reduced to 2.5mg BID (6) History of nontraumatic rupture of cerebral aneurysm: Plan: Patient is nonverbal at baseline with chronic contractures in all 4 extremities, has eye opening, roving eye movements, grimacing, sleep-wake cycles. Functional quadriplegia. CT head shows encephalomalacia and good shunt placement . He unfortunately suffered a ruptured brain aneurysm and SAH 08/2022. Status post craniotomy and evacuation of hematoma. 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 He has a ventriculoperitoneal shunt in place. Known resultant severe autonomic dysfunction / paroxysmal sympathetic hyperactivity / autonomic storm which is controlled on medications and has the potential to be confused with sepsis. Continue current medical management (7) Autonomic dysfunction: Plan: Stable. Continue dantrolene and bromocriptine. Continue gabapentin and baclofen for spasticity (8) Cardiomyopathy: Plan: last echo 07/11/23 - low normal EF 50-55%. No acute current problems. Continue beta-joon therapy. (9) Tracheostomy status: Plan: cont local trach care. On 09/09, trach changed to 8.0 uncuffed tracheostomy tube by Dr. Street (10) Candidiasis: Plan: multiple locations - back/buttocks, groin, R axillary region. Cont anti-yeast topical powders. Completed 7d diflucan 09/11 with significant improvement (11) Tachycardia: Plan: maintaining low 100s throughout the day 09/29 however AM metoprolol was held no signs of new infection on exam Labs checked this morning 09/30 without signs of infection. Tachycardia has resolved. Do not suspect bacterial infection or autonomic storming at this time. Tachycardic 10/01 but PM metoprolol was held, as labs were just checked, do not suspect infection at this time - will decrease metoprolol 12.5mg BID and decrease hold parameters Tachycardia resolved Plan Placement pending. Family meeting held 09/30 Recent history (resolved issues): #Bacteremias 06/2023, completed treatment and resolved -- sources included: SSTI sacral decubitus ulcer, Group C strep bacteremia - source thought 2nd to sacral wound, Coag neg staph bacteremia - contaminant vs bacteremia. Corynebacterium bacteremia #Bilateral calf wounds, have healed. Ear wound, has healed. #Pneumatosis coli seen on CT abdomen mid Jun 2023. Evaluated by General surgery last admission. since no surgical abdomen/peritonitis/symptoms no Rx recommended during that admission etiology of the CT findings was uncertain. abdominal exam remains benign / soft day-to-day, tolerates TF well. # transaminitis - resolved lewis changed 09/05, trach changed 09/09, peg tube changed 09/25 , wound vac 10/05 Family updated at bedside 10/05, form completed and provided in room 10/06. CM to follow Admission and Anticipated Discharge Date Admission Date: July 18, 2023 Supervising Physician Co-Signing Physician Notes The patient was not seen by me. The chart was reviewed. Case discussed with REBECCA Raya. Agree with assessment and plan Subjective Eval this morning, just got cleaned by nursing staff. No acute distress. [facility] Disability meeting/form completed by providers yesterday, left copy for mother in room. Vitals stable. CM following regarding placement issues, wound RN for vac Physical Exam Physical Exam: General: eyes closed, VS as above Resp: normal respiratory effort - trach dependent, no distress or audible wheezing, lungs clear to auscultation CV: RRR, no murmur, no pitting edema ABD: soft, non distended, feeing tube in place, no drainage Extremities:no edema or clubbing, flexion contractures present . Right great toe without signs of infection or abscess Neuro: non responsive, skull defect from prior craniotomy Results & Data Results & Data Vital Signs (Past 12 Hours) Vital Signs Temp Pulse Resp BP Pulse Ox O2 Del Method O2 Flow Rate 10/06/23 20:37 36.6 C 76 16 101/65 100 Trach Collar 6 10/06/23 20:00 Trach Collar 6 Laboratory Results 10/07/23 Range/Units 05:45 Total Bilirubin 0.4 (0.2-1.0) mg/dl Direct Bilirubin 0.0 (0-0.2) mg/dl AST 12 L (13-39) U/L ALT 11 (7-52) U/L Alkaline Phosphatase 66 (34-104) U/L Total Protein 7.4 (6.0-8.3) gm/dl Albumin 3.9 (3.4-5.0) gm/dl PG Care Time/CCT Total # of Minutes Spent Total Time Spent with Patient: Total time spent is greater than 50% in coordination of care (as documented) at patient's floor/unit and/or counseling patient: Coding Level of Care Code 63288 SUB INP/OBS CARE 1/25MIN Diagnoses Decubitus ulcer of sacral region, stage 4 L89.154 Chronic osteomyelitis of sacrum M86.68 Hospital acquired PNA J18.9; Y95 Severe protein-calorie malnutrition E43 History of DVT (deep vein thrombosis) Z86.718 History of nontraumatic rupture of cerebral aneurysm Z86.79 Autonomic dysfunction G90.9 Cardiomyopathy I42.9 Tracheostomy status Z93.0 Candidiasis B37.9 Tachycardia R00.0
[2023-10-07] MEDS: [UNRECOGNIZED DRUG - OTHER] PEG SCH (21:14)
[2023-10-08 06:21] LABS: Basophils # (auto) 0.05 K/uL (0.00-0.20); Basophils % (auto) 0.6 %; Eosinophils # (auto) 0.34 K/uL (0.00-0.50); Eosinophils % (auto) 3.9 %; Hematocrit (blood only) 33.8 % (42.0-52.0); Hemoglobin 10.5 g/dl (14.0-18.0); Immature Granulocytes # (auto) 0.09 K/uL (0.01-0.20); Lymphocytes # (auto) 1.19 K/uL (1.20-3.40); Lymphocytes % (auto) 13.7 %; Mean Corpuscular Hgb Conc 31.1 g/dL (32.0-36.0); Mean Corpuscular Volume 96.6 fL (80.0-100.0); Mean Platelet Volume 11.9 fL (9.4-12.4); Monocytes # (auto) 0.66 K/uL (0.11-0.59); Monocytes % (auto) 7.6 %; Neutrophils # (auto) 6.37 K/uL (1.40-6.50); Neutrophils % (auto) 73.2 %; Platelet Count 268 K/uL (130-400); RDW Coefficient of Variation 14.6 % (11.5-14.5); RDW Standard Deviation 51.2 fL (36.4-46.3)
[2023-10-08 06:33] LABS: Alanine Aminotransferase 11 U/L (7-52); Albumin Globulin Ratio 1.1 (0.9-2); Albumin Level 3.8 gm/dl (3.4-5.0); Alkaline Phosphatase 67 U/L (34-104); Anion Gap 6 (3-11); Aspartate Aminotransferase 12 U/L (13-39); BUN Creatinine Ratio 74.4 (10-20); Bilirubin,Total 0.4 mg/dl (0.2-1.0); Blood Urea Nitrogen 32 mg/dl (6-23); Calcium 9.5 mg/dl (8.6-10.3); Carbon Dioxide 31 mmol/L (21-32); Chloride 102 mmol/L (98-107); Creatinine Clr Calc Pharmacy 186.6 ml/min; Est GFR (African American) > 150.0 ml/min; Est GFR (Non-African American) > 150.0 ml/min; Globulin 3.4 gm/dl (2.5-4.0); Glucose 109 mg/dl (70-99(Fasting)); Sodium 139 mmol/L (136-145); Total Protein 7.2 gm/dl (6.0-8.3)
--- NOTE | 2023-10-08 08:10 | Hospitalist Progress Note ---
Date of Service October 08, 2023 Assessment & Plan (1) Decubitus ulcer of sacral region, stage 4: Plan: Present on admission. - s/p debridement in the OR by Dr Issa on 07/31/23. - Wound vac placed on 08/01. Wound vac then changed to a pulsating irrigation woundvac on 08/21/23. - Due to lack of improvement and worsening appearance of his ulcer he underwent repeat debridement in the OR by Dr Dorsey on 08/25/23. On 09/04 the woundvac was removed due to candidiasis (extensive) in sacral area. Treated with fluconazole. Wound VAC was replaced on 09/18, draining purulent material. Continue wound care. Appreciate general surgery and wound care assistance. Wound care removed wound VAC over the weekend, replaced 10/05 10/06 Remains off abx, afebrile. Wound vac in place Meeting w/ family and providers 10/05, paperwork completed, original back to patients room. CM following for ongoing placement concerns/issues 10/07 Changed wound vac w/ wound RN today, keeping off for now but will need ongoing monitoring as does tend to have set backs but increased fluid and worsened appearance. WBC wnl/afebrile at present time Fungal appearance, adding Fluconazole 100mg daily - monitor Also with increased oral secretions, RN to call RT for Mucomyst treatment, ongoing suctioning, Will obtain CXR for review given prior HAP s/p treatment with Cefepime given bronch cx pseudomonas, intermediate resistance to Zosyn (2) Chronic osteomyelitis of sacrum: Plan: intra-op culture from 07/31 with MSSA, pseudomonas, providencia, and anaerobes. Sacral bone biopsy 08/24 with VRE and 2-week course of linezolid completed as of end 09/12. Per infectious disease, patient has completed 6 weeks of IV abx with concurrent wound vac. Mainly pip-tazo and cefepime (metronidazole added ) from 07/31/23 09/10/23 Remains off abx, afebrile and continued wound care/repositioning (3) Hospital acquired PNA: Plan: LLL -- resolved. Due to pseudomonas infection. Chronology of events: 08/01 - cxr with worsening infiltrates on left 08/03 - collapse LLL 08/03 - bronchoscopy by Dr Blancas with mucous plugging found in the left-sided bronchial tree s/p removal; 08/07 - s/p bronch by Dr Lock - minimal secretions LLL, no plugs; thick secretions in trach, however 08/09 - bronch cx - pseudomonas, intermediate resistance 08/09 - changed zosyn to cefepime 08/22 - cxr - ongoing LLL infiltrates/effusion - similar to previous imaging 09/17- cxr shows improved aeration within the left lung base trach routinely changed to cuffless by Dr. Street 09/09 Repeat chest x-ray done on 09/17 showed improved aeration within the left lung base. A 1 month follow-up is recommended (10/18 if continues inpatient) 10/07- repeat CXR due to secretions today, no focal consolidation noted. Suctioned, nursing to continue to monitor. Asked to call for mucomyst, may need to consider making scheduled as high risk for mucus plugging with his increased secretions (clear but thickened on exam). No leukocytosis/fever at present but will monitor (4) Severe protein-calorie malnutrition: Plan: Chronic. Improving slowly. Peg tube replaced 09/25 , tolerating Continue current nutrition recommendations (5) History of DVT (deep vein thrombosis): Plan: RLE DVT discovered 11/2022. Had been on Eliquis 5mg BID since 12/12/22. Eliquis dosage has been reduced to 2.5mg BID (6) History of nontraumatic rupture of cerebral aneurysm: Plan: Patient is nonverbal at baseline with chronic contractures in all 4 extremities, has eye opening, roving eye movements, grimacing, sleep-wake cycles. Functional quadriplegia. CT head shows encephalomalacia and good shunt placement . He unfortunately suffered a ruptured brain aneurysm and SAH 08/2022. Status post craniotomy and evacuation of hematoma. 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 He has a ventriculoperitoneal shunt in place. Known resultant severe autonomic dysfunction / paroxysmal sympathetic hyperactivity / autonomic storm which is controlled on medications and has the potential to be confused with sepsis. Continue current medical management (7) Autonomic dysfunction: Plan: Stable. Continue dantrolene and bromocriptine. Continue gabapentin and baclofen for spasticity (8) Cardiomyopathy: Plan: last echo 07/11/23 - low normal EF 50-55%. No acute current problems. Continue beta-joon therapy. (9) Tracheostomy status: Plan: cont local trach care. On 09/09, trach changed to 8.0 uncuffed tracheostomy tube by Dr. Street (10) Candidiasis: Plan: multiple locations - back/buttocks, groin, R axillary region. Cont anti-yeast topical powders. Completed 7d diflucan 09/11 with significant improvement RESUMED DIFLUCAN FOR FUNGAL APPEARANCE ON EXAM 10/07, MONITOR (11) Tachycardia: Plan: maintaining low 100s throughout the day 09/29 however AM metoprolol was held no signs of new infection on exam Labs checked this morning 09/30 without signs of infection. Tachycardia has resolved. Do not suspect bacterial infection or autonomic storming at this time. Tachycardic 10/01 but PM metoprolol was held, as labs were just checked, do not suspect infection at this time - decreased metoprolol 12.5mg BID and adjusted hold parameters and HR remaining stable Plan Placement pending. Family meeting held 09/30 Recent history (resolved issues): #Bacteremias 06/2023, completed treatment and resolved -- sources included: SSTI sacral decubitus ulcer, Group C strep bacteremia - source thought 2nd to sacral wound, Coag neg staph bacteremia - contaminant vs bacteremia. Corynebacterium bacteremia #Bilateral calf wounds, have healed. Ear wound, has healed. #Pneumatosis coli seen on CT abdomen mid Jun 2023. Evaluated by General surgery last admission. since no surgical abdomen/peritonitis/symptoms no Rx recommended during that admission etiology of the CT findings was uncertain. abdominal exam remains benign / soft day-to-day, tolerates TF well. # transaminitis - resolved lewis changed 09/05 -- will have nursing change for today 10/07 trach changed 09/09, peg tube changed 09/25 , wound vac 10/05 Family updated at bedside 10/05, form completed and provided in room 10/06. Most recent CM note 10/07 noting [facility] unable to accept but messages out to [facility] (accepts trachs) and [facility] to see if accepts trachs Admission and Anticipated Discharge Date Admission Date: July 18, 2023 Supervising Physician Co-Signing Physician Notes The patient was not seen by me. The chart was reviewed. Case discussed with REBECCA Raya. Agree with assessment and plan Subjective Eval this morning, assisted wound RN w/ changing wound vac this morning. Does appear to have set back a little on the one edge now flattened/not as much granulation tissue. Issues w/ vac over weekend, has had blisters from prior dressing, healing but w/ fungal appearance and smell. W/ sensitive dressing now having multiple smaller blisters to his R hip region, covered with tonio. Discussed w/ wound RN and not able to continue wound vac for now given such and will continue dressing changes. Planning to add Diflucan. Also with increased thickened but clear secretions, was suctioned and RN to continue to suction/monitor, asked to call RT for dose mucocyst. Physical Exam Physical Exam: General: 33yo chronically ill appearing male laying in bed, NAD, changing wound vac w/ wound RN HEENT: R eye with some surrounding puffiness/redness, no drainage, eyes open today, trach dependent, increased secretions present (suctioned) Resp: increased mucus plugging/secretions, no tachypnea, suctions, coarse breath sounds, on 6L trach collar 99% SpO2 CV: RRR, no significant m/r/g, no pitting edema GI: soft, non distended, feeing tube in place, no drainage Extremities:no edema or clubbing, flexion contractures present . Right great toe without signs of infection or abscess Neuro: non responsive, skull defect from prior craniotomy Skin: sacral ulcer with increased drainage, redness, fungal appearance and smell scattered fungal lesions noted, additional small blisters under R edge of wound vac dressing decision to clean/cover, not replace wound vac at present time Results & Data Results & Data Vital Signs (Past 12 Hours) Vital Signs Temp Pulse Resp BP Pulse Ox O2 Del Method 10/08/23 07:58 36.7 C 78 18 110/72 99 Trach Collar Laboratory Results 10/08/23 Range/Units 05:53 WBC 8.70 (4.8-10.8) K/ul RBC 3.50 L (4.70-6.10) M/uL Hgb 10.5 L (14.0-18.0) g/dl Hct 33.8 L (42.0-52.0) % MCV 96.6 (80.0-100.0) fL MCH 30.0 (25.0-34.0) pg MCHC 31.1 L (32.0-36.0) g/dL RDW Std Deviation 51.2 H (36.4-46.3) fL RDW Coeff of Dario 14.6 H (11.5-14.5) % Plt Count 268 (130-400) K/uL MPV 11.9 (9.4-12.4) fL Immature Gran % (Auto) 1.0 % Neut % (Auto) 73.2 % Lymph % (Auto) 13.7 % [place] % (Auto) 7.6 % Eos % (Auto) 3.9 % Baso % (Auto) 0.6 % Neut # (Auto) 6.37 (1.40-6.50) K/uL Lymph # (Auto) 1.19 L (1.20-3.40) K/uL [place] # (Auto) 0.66 H (0.11-0.59) K/uL Eos # (Auto) 0.34 (0.00-0.50) K/uL Baso # (Auto) 0.05 (0.00-0.20) K/uL Immature Gran # (Auto) 0.09 (0.01-0.20) K/uL Sodium 139 (136-145) mmol/L Potassium 4.0 (3.5-5.1) mmol/L Chloride 102 (98-107) mmol/L Carbon Dioxide 31 (21-32) mmol/L Anion Gap 6 (3-11) BUN 32 H (6-23) mg/dl Creatinine 0.43 L (0.6-1.4) mg/dl Est Cr Clr Drug Dosing 186.6 ml/min Est GFR ( Amer) > 150.0 ml/min Est GFR (Non-Af Amer) > 150.0 ml/min BUN/Creatinine Ratio 74.4 H (10-20) Glucose 109 H (70-99(Fasting)) mg/dl Calcium 9.5 (8.6-10.3) mg/dl Magnesium 2.0 (1.7-2.4) mg/dl Total Bilirubin 0.4 (0.2-1.0) mg/dl AST 12 L (13-39) U/L ALT 11 (7-52) U/L Alkaline Phosphatase 67 (34-104) U/L Total Protein 7.2 (6.0-8.3) gm/dl Albumin 3.8 (3.4-5.0) gm/dl Globulin 3.4 (2.5-4.0) gm/dl Albumin/Globulin Ratio 1.1 (0.9-2) Diagnostic Findings Chest X-Ray 10/08/23 10:57 SINGLE VIEW CHEST CLINICAL HISTORY: Increasing secretions. FINDINGS: 2 AP, portable, upright chest radiographs are compared to study dated 09/27/2023. Correlation is made with chest CT dated 05/07/2023. The examination is degraded by portable technique and patient rotation. A shunt catheter traverses the left chest wall. A tracheostomy is in place. The heart is enlarged. The pulmonary vasculature is noncongested. No airspace consolidation or large pleural effusion is identified. No pneumothorax is seen. The skeletal structures are osteopenic. The bony thorax is grossly intact. IMPRESSION: Cardiomegaly with no acute cardiopulmonary abnormality identified. ACT 112: Negative or not required by law. Electronically signed by: Jayce Waite M.D. 10/08/2023 12:00 PM PG Care Time/CCT Total # of Minutes Spent Total Time Spent with Patient: Total time spent is greater than 50% in coordination of care (as documented) at patient's floor/unit and/or counseling patient: Coding Level of Care Code 61080 SUB INP/OBS CARE 3/50MIN Diagnoses Decubitus ulcer of sacral region, stage 4 L89.154 Chronic osteomyelitis of sacrum M86.68 Hospital acquired PNA J18.9; Y95 Severe protein-calorie malnutrition E43 History of DVT (deep vein thrombosis) Z86.718 History of nontraumatic rupture of cerebral aneurysm Z86.79 Autonomic dysfunction G90.9 Cardiomyopathy I42.9 Tracheostomy status Z93.0 Candidiasis B37.9 Tachycardia R00.0
[2023-10-08] MEDS: ACETYLCYSTEINE 20% INHAL SOLN 4ML ***DISPENSED BY RESP. INH PRN (11:08)
--- NOTE | 2023-10-08 12:01 | XRay Report ---
SINGLE VIEW CHEST CLINICAL HISTORY: Increasing secretions. FINDINGS: 2 AP, portable, upright chest radiographs are compared to study dated 09/27/2023. Correlation is made with chest CT dated 05/07/2023. The examination is degraded by portable technique and patien t rotation. A shunt catheter traverses the left chest wall. A tracheostomy is in place. The heart is enlarged. The pulmonary vasculature is noncongested. No airspace consolidation or large pleural effu laron is identified. No pneumothorax is seen. The skeletal structures are osteopenic. The bony thorax is grossly intact. IMPRESSION: Cardiomegaly with no acute cardiopulmonary abnormality identified. ACT 112: Negative or not required by law. Electronically signed by: Jayce Waite M.D. 10/08/2023 12:00 PM
[2023-10-09 06:51] LABS: Basophils # (auto) 0.04 K/uL (0.00-0.20); Basophils % (auto) 0.4 %; Eosinophils % (auto) 2.9 %; Hematocrit (blood only) 32.2 % (42.0-52.0); Hemoglobin 10.3 g/dl (14.0-18.0); Immature Granulocytes # (auto) 0.06 K/uL (0.01-0.20); Immature Granulocytes % (auto) 0.6 %; Lymphocytes # (auto) 1.34 K/uL (1.20-3.40); Mean Corpuscular Volume 93.9 fL (80.0-100.0); Mean Platelet Volume 12.1 fL (9.4-12.4); Monocytes # (auto) 0.68 K/uL (0.11-0.59); Monocytes % (auto) 6.6 %; Neutrophils % (auto) 76.5 %; Platelet Count 274 K/uL (130-400); RDW Coefficient of Variation 14.9 % (11.5-14.5); RDW Standard Deviation 51.8 fL (36.4-46.3); Red Blood Count 3.43 M/uL (4.70-6.10); White Blood Count 10.32 K/ul (4.8-10.8)
[2023-10-09 07:03] LABS: Alanine Aminotransferase 12 U/L (7-52); Albumin Globulin Ratio 1.1 (0.9-2); Albumin Level 3.8 gm/dl (3.4-5.0); Alkaline Phosphatase 69 U/L (34-104); Anion Gap 8 (3-11); Aspartate Aminotransferase 12 U/L (13-39); BUN Creatinine Ratio 79.5 (10-20); Bilirubin,Total 0.4 mg/dl (0.2-1.0); Blood Urea Nitrogen 31 mg/dl (6-23); Calcium 9.7 mg/dl (8.6-10.3); Carbon Dioxide 30 mmol/L (21-32); Chloride 102 mmol/L (98-107); Creatinine Clr Calc Pharmacy 202.7 ml/min; Est GFR (African American) > 150.0 ml/min; Est GFR (Non-African American) > 150.0 ml/min; Globulin 3.5 gm/dl (2.5-4.0); Glucose 104 mg/dl (70-99(Fasting)); Sodium 140 mmol/L (136-145); Total Protein 7.3 gm/dl (6.0-8.3)
--- NOTE | 2023-10-09 07:55 | Hospitalist Progress Note ---
Date of Service October 09, 2023 Assessment & Plan (1) Decubitus ulcer of sacral region, stage 4: Plan: Present on admission. - s/p debridement in the OR by Dr Issa on 07/31/23. - Wound vac placed on 08/01. Wound vac then changed to a pulsating irrigation wound vac on 08/21/23. - Due to lack of improvement and worsening appearance of his ulcer he underwent repeat debridement in the OR by Dr Dorsey on 08/25/23. On 09/04 the wound vac was removed due to candidiasis (extensive) in sacral area. Treated with fluconazole. Wound VAC was replaced on 09/18, draining purulent material. Continue wound care. Appreciate general surgery and wound care assistance. Wound care removed wound VAC over the weekend, replaced 10/05 10/06 Remains off abx, afebrile. Wound vac in place Meeting w/ family and providers 10/05, paperwork completed, original back to patients room. CM following for ongoing placement concerns/issues 10/07 Changed wound vac w/ wound RN today, keeping off for now but will need ongoing monitoring as does tend to have set backs but increased fluid and worsened appearance. WBC wnl/afebrile at present time Fungal appearance, adding Fluconazole 100mg daily - monitor Also with increased oral secretions, RN to call RT for Mucomyst treatment, ongoing suctioning, Will obtain CXR for review given prior HAP s/p treatment with Cefepime given bronch cx pseudomonas, intermediate resistance to Zosyn 10/08 WBC borderline 10.3k but afebrile - needing to monitor for need for repeat infection to sacrum. Notified surgery, will reach back out in AM. Wound vac remains off at present time, blisters prior covered w/ dressing. Mucomyst made scheduled due to thickened secretions/mucus plugging and appears to have made improvement. Continue to suction as needed (much less audible secretions) Lewis exchanged, coude in place, clear yellow urine draining Moving his bowels Continued inpatient stay (2) Chronic osteomyelitis of sacrum: Plan: intra-op culture from 07/31 with MSSA, pseudomonas, providencia, and anaerobes. Sacral bone biopsy 08/24 with VRE and 2-week course of linezolid completed as of end 09/12. Per infectious disease, patient has completed 6 weeks of IV abx with concurrent wound vac. Mainly pip-tazo and cefepime (metronidazole added ) from 07/31/23 09/10/23 Remains off abx (FOR NOW), afebrile and continued wound care/repositioning however will need to monitor for need for repeat debridement w/ wound vac off check procal w/ AM CBC (3) Hospital acquired PNA: Plan: LLL -- resolved. Due to pseudomonas infection. Chronology of events: 08/01 - cxr with worsening infiltrates on left 08/03 - collapse LLL 08/03 - bronchoscopy by Dr Blancas with mucous plugging found in the left-sided bronchial tree s/p removal; 08/07 - s/p bronch by Dr Lock - minimal secretions LLL, no plugs; thick secretions in trach, however 08/09 - bronch cx - pseudomonas, intermediate resistance 08/09 - changed zosyn to cefepime 08/22 - cxr - ongoing LLL infiltrates/effusion - similar to previous imaging 09/17- cxr shows improved aeration within the left lung base trach routinely changed to cuffless by Dr. Street 09/09 Repeat chest x-ray done on 09/17 showed improved aeration within the left lung base. A 1 month follow-up is recommended (10/18 if continues inpatient) 10/07- repeat CXR due to secretions , no focal consolidation noted. Suctioned,nursing continued and given mucomyst. Now making scheduled BID. No leukocytosis but borderline as above, needing to monitor sacrum, lung exam improved and CXR w/o focal consolidation (4) Candidiasis: Plan: multiple locations - back/buttocks, groin, R axillary region. Cont anti-yeast topical powders. Completed 7d diflucan 09/11 with significant improvement RESUMED DIFLUCAN FOR FUNGAL APPEARANCE ON EXAM 10/07, continue to monitor/not worse (5) Severe protein-calorie malnutrition: Plan: Chronic. Improving slowly. Peg tube replaced 09/25 , tolerating Continue current nutrition recommendations (6) History of DVT (deep vein thrombosis): Plan: RLE DVT discovered 11/2022. Had been on Eliquis 5mg BID since 12/12/22. Eliquis dosage has been reduced to 2.5mg BID (7) History of nontraumatic rupture of cerebral aneurysm: Plan: Patient is nonverbal at baseline with chronic contractures in all 4 extremities, has eye opening, roving eye movements, grimacing, sleep-wake cycles. Functional quadriplegia. CT head shows encephalomalacia and good shunt placement . He unfortunately suffered a ruptured brain aneurysm and SAH 08/2022. Status post craniotomy and evacuation of hematoma. 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 He has a ventriculoperitoneal shunt in place. Known resultant severe autonomic dysfunction / paroxysmal sympathetic hyperactivity / autonomic storm which is controlled on medications and has the potential to be confused with sepsis. Continue current medical management (8) Autonomic dysfunction: Plan: Stable. Continue dantrolene and bromocriptine. Continue gabapentin and baclofen for spasticity (9) Cardiomyopathy: Plan: last echo 07/11/23 - low normal EF 50-55%. No acute current problems. Continue beta-joon therapy. (10) Tracheostomy status: Plan: cont local trach care. On 09/09, trach changed to 8.0 uncuffed tracheostomy tube by Dr. Street (11) Tachycardia: Plan: maintaining low 100s throughout the day 09/29 however AM metoprolol was held no signs of new infection on exam Labs checked this morning 09/30 without signs of infection. Tachycardia has resolved. Do not suspect bacterial infection or autonomic storming at this time. Tachycardic 10/01 but PM metoprolol was held, as labs were just checked, do not suspect infection at this time - decreased metoprolol 12.5mg BID and adjusted hold parameters and HR remaining stable Plan Placement pending. Family meeting held 09/30 . Family updated at bedside 10/05, form completed and provided in room 10/06. Recent history (resolved issues): #Bacteremias 06/2023, completed treatment and resolved -- sources included: SSTI sacral decubitus ulcer, Group C strep bacteremia - source thought 2nd to sacral wound, Coag neg staph bacteremia - contaminant vs bacteremia. Corynebacterium bacteremia #Bilateral calf wounds, have healed. Ear wound, has healed. #Pneumatosis coli seen on CT abdomen mid Jun 2023. Evaluated by General surgery last admission. since no surgical abdomen/peritonitis/symptoms no Rx recommended during that admission etiology of the CT findings was uncertain. abdominal exam remains benign / soft day-to-day, tolerates TF well. # transaminitis - resolved lewis exchanged (coude in place) 10/07 trach changed 09/09, peg tube changed 09/25 , wound vac 10/05 -- NOW OFF fowr now Most recent CM note 10/07 noting [facility] unable to accept but messages out to [facility] (accepts trachs) and [facility] Admission and Anticipated Discharge Date Admission Date: July 18, 2023 Supervising Physician Co-Signing Physician Notes The patient was not seen by me. The chart was reviewed. Case discussed with REBECCA Raya. Agree with assessment and plan Subjective Evaluated this afternoon. Patient does not appear in any acute distress at present time. Resting in bed, catheter draining clear yellow urine. Wound vac remains off. WBC borderline, on fluconazole for fungal appearance and continued. Afebrile. Did notify surgery for possible need to continue to follow w/ wound vac off but monitoring for now. Continue wound care/turn/reposition. Did get mucomyst yesterday and again this morning and making BID lubna for now given improvement in secretions. Physical Exam Physical Exam: General: 33yo chronically ill appearing male laying in bed, NAD HEENT: R eye with some surrounding puffiness/redness, no drainage, eyes open today, trach dependent Resp: improvement in mucus plugging/secretions since mucomyst/suctioning, no significant w/c, 6L trach collar 96% CV: RRR, no significant m/r/g, no pitting edema GI: soft, non distended, feeing tube in place, no drainage Extremities:no edema or clubbing, flexion contractures present . Right great toe without signs of infection or abscess Neuro: non responsive, skull defect from prior craniotomy Skin: sacral ulcer with increased drainage day prior (not assessed today/about same per nursing), fungal appearance persists additional small blisters R hip region/edge of where wound vac dressing was prior, NOT worse Results & Data Results & Data Vital Signs (Past 12 Hours) Vital Signs Temp Pulse Resp BP Pulse Ox O2 Del Method FiO2 10/09/23 07:21 36.3 C L 80 16 97/62 L 96 Trach Collar 10/09/23 06:54 74 18 98 Trach Collar 28 10/08/23 22:19 Trach Collar Laboratory Results 10/09/23 Range/Units 06:18 WBC 10.32 (4.8-10.8) K/ul RBC 3.43 L (4.70-6.10) M/uL Hgb 10.3 L (14.0-18.0) g/dl Hct 32.2 L (42.0-52.0) % MCV 93.9 (80.0-100.0) fL MCH 30.0 (25.0-34.0) pg MCHC 32.0 (32.0-36.0) g/dL RDW Std Deviation 51.8 H (36.4-46.3) fL RDW Coeff of Dario 14.9 H (11.5-14.5) % Plt Count 274 (130-400) K/uL MPV 12.1 (9.4-12.4) fL Immature Gran % (Auto) 0.6 % Neut % (Auto) 76.5 % Lymph % (Auto) 13.0 % [place] % (Auto) 6.6 % Eos % (Auto) 2.9 % Baso % (Auto) 0.4 % Neut # (Auto) 7.90 H (1.40-6.50) K/uL Lymph # (Auto) 1.34 (1.20-3.40) K/uL [place] # (Auto) 0.68 H (0.11-0.59) K/uL Eos # (Auto) 0.30 (0.00-0.50) K/uL Baso # (Auto) 0.04 (0.00-0.20) K/uL Immature Gran # (Auto) 0.06 (0.01-0.20) K/uL Sodium 140 (136-145) mmol/L Potassium 4.0 (3.5-5.1) mmol/L Chloride 102 (98-107) mmol/L Carbon Dioxide 30 (21-32) mmol/L Anion Gap 8 (3-11) BUN 31 H (6-23) mg/dl Creatinine 0.39 L (0.6-1.4) mg/dl Est Cr Clr Drug Dosing 202.7 ml/min Est GFR ( Amer) > 150.0 ml/min Est GFR (Non-Af Amer) > 150.0 ml/min BUN/Creatinine Ratio 79.5 H (10-20) Glucose 104 H (70-99(Fasting)) mg/dl Calcium 9.7 (8.6-10.3) mg/dl Magnesium 2.0 (1.7-2.4) mg/dl Total Bilirubin 0.4 (0.2-1.0) mg/dl AST 12 L (13-39) U/L ALT 12 (7-52) U/L Alkaline Phosphatase 69 (34-104) U/L Total Protein 7.3 (6.0-8.3) gm/dl Albumin 3.8 (3.4-5.0) gm/dl Globulin 3.5 (2.5-4.0) gm/dl Albumin/Globulin Ratio 1.1 (0.9-2) Diagnostic Findings Chest X-Ray 10/08/23 10:57 SINGLE VIEW CHEST CLINICAL HISTORY: Increasing secretions. FINDINGS: 2 AP, portable, upright chest radiographs are compared to study dated 09/27/2023. Correlation is made with chest CT dated 05/07/2023. The examination is degraded by portable technique and patient rotation. A shunt catheter traverses the left chest wall. A tracheostomy is in place. The heart is enlarged. The pulmonary vasculature is noncongested. No airspace consolidation or large pleural effusion is identified. No pneumothorax is seen. The skeletal structures are osteopenic. The bony thorax is grossly intact. IMPRESSION: Cardiomegaly with no acute cardiopulmonary abnormality identified. ACT 112: Negative or not required by law. Electronically signed by: Jayce Waite M.D. 10/08/2023 12:00 PM PG Care Time/CCT Total # of Minutes Spent Total Time Spent with Patient: Total time spent is greater than 50% in coordination of care (as documented) at patient's floor/unit and/or counseling patient: Coding Level of Care Code 71210 SUB INP/OBS CARE 2/35MIN Diagnoses Decubitus ulcer of sacral region, stage 4 L89.154 Chronic osteomyelitis of sacrum M86.68 Hospital acquired PNA J18.9; Y95 Candidiasis B37.9 Severe protein-calorie malnutrition E43 History of DVT (deep vein thrombosis) Z86.718 History of nontraumatic rupture of cerebral aneurysm Z86.79 Autonomic dysfunction G90.9 Cardiomyopathy I42.9 Tracheostomy status Z93.0 Tachycardia R00.0
[2023-10-09 15:37] LABS: Appearance Urine Clear (Clear); Bacteria Urine Automated 2+ (None Seen); Bilirubin Urine Negative (Negative); Blood Urine Negative (Negative); Cast Urine Automated 0-2 /lpf (0-2); Color Urine Dark Yellow; Epithelial Cell Urine Auto 0-2 /hpf (0-2); Glucose Urine UA Negative (Negative); Ketones Urine Negative (Negative); Leukocyte Esterase Urine 2+ (Negative); Nitrite Urine Positive (Negative); Protein Urine Negative (Negative); RBC Urine Automated 0-2 /hpf (0-2); Specific Gravity Urine 1.017 (1.000-1.030); Urobilinogen Urine Negative (Negative)
[2023-10-09] MEDS: ACETYLCYSTEINE 20% INHAL SOLN 4ML ***DISPENSED BY RESP. INH SCH (19:37)
[2023-10-09] MEDS: SODIUM CHLORIDE 0.9% 1,000 ML IV ONE (23:55)
[2023-10-10] MEDS ORDERED: ACETAMINOPHEN 1,000 MG/100 ML VIAL IV STA (00:22)
[2023-10-10] MEDS ORDERED: ACETAMINOPHEN 650 MG/65 ML VIAL IV STA (00:39)
[2023-10-10 00:57] LABS: Hematocrit (blood only) 33.1 % (42.0-52.0); Hemoglobin 10.4 g/dl (14.0-18.0); Mean Corpuscular Hemoglobin 30.4 pg (25.0-34.0); Mean Corpuscular Hgb Conc 31.4 g/dL (32.0-36.0); Mean Corpuscular Volume 96.8 fL (80.0-100.0); Mean Platelet Volume 11.8 fL (9.4-12.4); Nucleated RBC # (auto) 0.02 K/uL (0.00-0.12); Nucleated RBC % (auto) 0.1 %; Platelet Count 283 K/uL (130-400); RDW Coefficient of Variation 15.2 % (11.5-14.5); RDW Standard Deviation 53.5 fL (36.4-46.3); Red Blood Count 3.42 M/uL (4.70-6.10); White Blood Count 16.45 K/ul (4.8-10.8)
[2023-10-10] MEDS: ACETAMINOPHEN 10MG/ML Custom 650 MG in EMPTY BAG 0 ML IV STA (01:00)
[2023-10-10] MEDS: SODIUM CHLORIDE 0.9% 500 ML IV ONE ×2 (01:01→02:42)
[2023-10-10 01:10] LABS: Anion Gap 9 (3-11); BUN Creatinine Ratio 74.5 (10-20); Blood Urea Nitrogen 38 mg/dl (6-23); Calcium 9.1 mg/dl (8.6-10.3); Carbon Dioxide 28 mmol/L (21-32); Chloride 101 mmol/L (98-107); Est GFR (African American) > 150.0 ml/min; Est GFR (Non-African American) 141.2 ml/min; Glucose 117 mg/dl (70-99(Fasting)); Potassium 4.1 mmol/L (3.5-5.1); Sodium 138 mmol/L (136-145)
[2023-10-10 01:19] LABS: Basophils # (auto) 0.04 K/uL (0.00-0.20); Basophils % (auto) 0.2 %; Eosinophils # (auto) 0.13 K/uL (0.00-0.50); Eosinophils % (auto) 0.8 %; Immature Granulocytes % (auto) 0.6 %; Lymphocytes # (auto) 0.56 K/uL (1.20-3.40); Lymphocytes % (auto) 3.4 %; Monocytes # (auto) 0.39 K/uL (0.11-0.59); Monocytes % (auto) 2.4 %; Neutrophils # (auto) 15.23 K/uL (1.40-6.50); Neutrophils % (auto) 92.6 %
[2023-10-10] MEDS: CEFEPIME 2,000 MG in SYRINGE 0 ML IV SCH (01:46)
[2023-10-10] MEDS: SODIUM CHLORIDE 0.9% 1,000 ML IV SCH (01:47)
[2023-10-10] MEDS: SODIUM CHLORIDE 0.9% 1,000 ML IV ONE (03:45)
[2023-10-10] MEDS: DAPTOmycin 225 MG in SYRINGE 0 ML IV ONE (04:51)
[2023-10-10] MEDS ORDERED: ACETAMINOPHEN 1,000 MG/100 ML VIAL IV SCH (06:00)
[2023-10-10 07:22] LABS: Basophils # (auto) 0.04 K/uL (0.00-0.20); Basophils % (auto) 0.2 %; Eosinophils # (auto) 0.07 K/uL (0.00-0.50); Eosinophils % (auto) 0.3 %; Hematocrit (blood only) 29.6 % (42.0-52.0); Immature Granulocytes # (auto) 0.14 K/uL (0.01-0.20); Immature Granulocytes % (auto) 0.7 %; Lymphocytes # (auto) 0.78 K/uL (1.20-3.40); Lymphocytes % (auto) 3.8 %; Mean Corpuscular Hgb Conc 30.4 g/dL (32.0-36.0); Mean Corpuscular Volume 98.7 fL (80.0-100.0); Mean Platelet Volume 11.9 fL (9.4-12.4); Monocytes # (auto) 1.05 K/uL (0.11-0.59); Monocytes % (auto) 5.2 %; Neutrophils # (auto) 18.22 K/uL (1.40-6.50); Neutrophils % (auto) 89.8 %; Nucleated RBC # (auto) 0.02 K/uL (0.00-0.12); Nucleated RBC % (auto) 0.1 %; Platelet Count 259 K/uL (130-400); RDW Coefficient of Variation 15.2 % (11.5-14.5); RDW Standard Deviation 54.4 fL (36.4-46.3)
[2023-10-10] MEDS: ACETAMINOPHEN 1,000 MG/100 ML VIAL IV SCH (07:32)
[2023-10-10 07:40] LABS: Alanine Aminotransferase 11 U/L (7-52); Albumin Globulin Ratio 1.1 (0.9-2); Albumin Level 3.3 gm/dl (3.4-5.0); Alkaline Phosphatase 58 U/L (34-104); Anion Gap 6 (3-11); Aspartate Aminotransferase 10 U/L (13-39); BUN Creatinine Ratio 57.8 (10-20); Bilirubin,Total 0.5 mg/dl (0.2-1.0); Blood Urea Nitrogen 26 mg/dl (6-23); Calcium 8.8 mg/dl (8.6-10.3); Carbon Dioxide 28 mmol/L (21-32); Chloride 109 mmol/L (98-107); Creatinine Clr Calc Pharmacy 175.7 ml/min; Est GFR (African American) > 150.0 ml/min; Est GFR (Non-African American) 148.7 ml/min; Glucose 120 mg/dl (70-99(Fasting)); Magnesium 1.8 mg/dl (1.7-2.4); Phosphorus 2.7 mg/dl (2.5-4.9); Potassium 3.6 mmol/L (3.5-5.1); Sodium 143 mmol/L (136-145); Total Protein 6.3 gm/dl (6.0-8.3)
--- NOTE | 2023-10-10 08:05 | Hospitalist Progress Note ---
Date of Service October 10, 2023 Assessment & Plan (1) Decubitus ulcer of sacral region, stage 4: Plan: Present on admission. - s/p debridement in the OR by Dr Issa on 07/31/23. - Wound vac placed on 08/01. Wound vac then changed to a pulsating irrigation wound vac on 08/21/23. - Due to lack of improvement and worsening appearance of his ulcer he underwent repeat debridement in the OR by Dr Dorsey on 08/25/23. On 09/04 the wound vac was removed due to candidiasis (extensive) in sacral area. Treated with fluconazole. Wound VAC was replaced on 09/18, draining purulent material. Continue wound care. Appreciate general surgery and wound care assistance. Wound care removed wound VAC over the weekend, replaced 10/05 10/06 Remains off abx, afebrile. Wound vac in place Meeting w/ family and providers 10/05, paperwork completed, original back to patients room. CM following for ongoing placement concerns/issues 10/07 Changed wound vac w/ wound RN today, keeping off for now but will need ongoing monitoring as does tend to have set backs but increased fluid and worsened appearance. WBC wnl/afebrile at present time Also with increased oral secretions, RN to call RT for Mucomyst treatment, ongoing suctioning, Will obtain CXR for review given prior HAP s/p treatment with Cefepime given bronch cx pseudomonas, intermediate resistance to Zosyn 10/08 WBC borderline 10.3k but afebrile - needing to monitor for need for repeat infection to sacrum. Notified surgery, will reach back out in AM. Wound vac remains off at present time, blisters prior covered w/ dressing. Mucomyst made scheduled due to thickened secretions/mucus plugging and appears to have made improvement. Continue to suction as needed (much less audible secretions) Lewis exchanged, coude in place, clear yellow urine draining Moving his bowels Continued inpatient stay 10/09 Tachycardic last evening w/ fever 39.4C. Provided 2L IVF, additional 1L bolus. Lactic 1.7 however procalcitonin 4.5 Blood cultures pending CXR w/o overt pneumonia but notes pneumonitis vs aspiration pneumonia. Remains on Mucomyst for mucus plugging, 100% on 7L trach collar Patient had his catheter exchanged on 10/07 which was difficult and had coude. Urine looked copious/clear yellow on exam 10/08 however UA was ordered for eval given borderline WBC -- Urine cx GNB, follow final cx/sensitivityi -- consideration for condom cath if no urinary retention per discussion with mother/had in past but would continue for now given wound vac off to prevent worsening wound/contamination Started back on Cefepime, Dapto Diflucan added for fungal appearance (was not initially reordered as thought) Temp 38.4C this morning, WBC 20k but had just gotten 1 dose abx and placed repeat labs for this afternoon Wound RN following (see pic today, slightly worse - abx as above). Ordered special duoderm, hopefully able to replace wound vac once received on Friday. -monitor for need for surgery eval this weekend (did notify Dr Willams once wound vac removed and notified on-call in case needed), can recall Infectious disease reconsulted given complex/resistant history Tylenol made 1gm IV lubna, making prn to prevent over treating and monitoring fever curve -- 37.2C this afternoon, BP improved Continue maintenance fluids for dehydration Monitor labs/exam on repeat (2) Chronic osteomyelitis of sacrum: Plan: intra-op culture from 07/31 with MSSA, pseudomonas, providencia, and anaerobes. Sacral bone biopsy 08/24 with VRE and 2-week course of linezolid completed as of end 09/12. Per infectious disease, patient has completed 6 weeks of IV abx with concurrent wound vac. Mainly pip-tazo and cefepime (metronidazole added ) from 07/31/23 09/10/23 Procal elevation as above, 4.59 Continue Cefepime/Dapto for now, monitor wound and urine/blood cultures Wound RN following (see pic 10/09, slightly worse - abx for dual coverage as above). Ordered special duoderm, hopefully able to replace wound vac once received on Friday. -monitor for need for surgery eval this weekend (did notify Dr Willams once wound vac removed and notified on-call in case needed), can recall (3) Hospital acquired PNA: Plan: LLL -- resolved. Due to pseudomonas infection. Chronology of events: 08/01 - cxr with worsening infiltrates on left 08/03 - collapse LLL 08/03 - bronchoscopy by Dr Blancas with mucous plugging found in the left-sided bronchial tree s/p removal; 08/07 - s/p bronch by Dr Lock - minimal secretions LLL, no plugs; thick secretions in trach, however 08/09 - bronch cx - pseudomonas, intermediate resistance 08/09 - changed zosyn to cefepime 08/22 - cxr - ongoing LLL infiltrates/effusion - similar to previous imaging 09/17- cxr shows improved aeration within the left lung base trach routinely changed to cuffless by Dr. Street 09/09 Repeat chest x-ray done on 09/17 showed improved aeration within the left lung base. A 1 month follow-up is recommended (10/18 if continues inpatient) 10/08--CXR w/ L basilar consolidation/small pleural effusion, typical for pneumonia/aspiration pneuomintis --> Made mucomyst scheduled BID, high risk for mucus plugging 7L trach collar this morning w/ above, down to 6L this afternoon F/u CXR (4) Candidiasis: Plan: multiple locations - back/buttocks, groin, R axillary region. Cont anti-yeast topical powders. Completed 7d Diflucan 09/11 with significant improvement RESUMED DIFLUCAN FOR FUNGAL APPEARANCE ON EXAM, started 10/09 (5) Severe protein-calorie malnutrition: Plan: Chronic. Improving slowly. Peg tube replaced 09/25 , tolerating Continue current nutrition recommendations (6) History of DVT (deep vein thrombosis): Plan: RLE DVT discovered 11/2022. Had been on Eliquis 5mg BID since 12/12/22. Eliquis dosage has been reduced to 2.5mg BID (7) History of nontraumatic rupture of cerebral aneurysm: Plan: Patient is nonverbal at baseline with chronic contractures in all 4 extremities, has eye opening, roving eye movements, grimacing, sleep-wake cycles. Functional quadriplegia. CT head shows encephalomalacia and good shunt placement . He unfortunately suffered a ruptured brain aneurysm and SAH 08/2022. Status post craniotomy and evacuation of hematoma. 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 He has a ventriculoperitoneal shunt in place. Known resultant severe autonomic dysfunction / paroxysmal sympathetic hyperactivity / autonomic storm which is controlled on medications and has the potential to be confused with sepsis. Continue current medical management (8) Autonomic dysfunction: Plan: Stable. Continue dantrolene and bromocriptine. Continue gabapentin and baclofen for spasticity (9) Cardiomyopathy: Plan: last echo 07/11/23 - low normal EF 50-55%. No acute current problems. Continue beta-joon therapy. (10) Tracheostomy status: Plan: cont local trach care. On 09/09, trach changed to 8.0 uncuffed tracheostomy tube by Dr. Street (11) Tachycardia: Plan: maintaining low 100s throughout the day 09/29 however AM metoprolol was held , no signs of new infection on exam elevation in HR 10/09, 2nd to infection/sepsis as above, abx as outlined. metoprolol continued but w/ hold parameters Plan Placement pending. Family meeting held 09/30 . Family updated at bedside 10/05, form completed and provided in room 10/06. Recent history (resolved issues): #Bacteremias 06/2023, completed treatment and resolved -- sources included: SSTI sacral decubitus ulcer, Group C strep bacteremia - source thought 2nd to sacral wound, Coag neg staph bacteremia - contaminant vs bacteremia. Corynebacterium bacteremia --> as above, monitor repeat blood cxs for concerns for sepsis 2nd to urine vs sacrum vs pulm. abx as outlined #Bilateral calf wounds, have healed. Ear wound, has healed. #Pneumatosis coli seen on CT abdomen mid Jun 2023. Evaluated by General surgery last admission. since no surgical abdomen/peritonitis/symptoms no Rx recommended during that admission etiology of the CT findings was uncertain. abdominal exam remains benign / soft day-to-day, tolerates TF well. # transaminitis - resolved lewis exchanged (coude in place) 10/07 -- UTI as above, consider condom cath pending wound vac trach changed 09/09, peg tube changed 09/25 , wound vac 10/05 ( NOW OFF) Most recent CM note 10/07 noting [facility] unable to accept but messages out to [facility] (accepts trachs) and [facility] to see if accepts t mylene updated mother 10/09, planning to visit in AM Admission and Anticipated Discharge Date Admission Date: July 18, 2023 Supervising Physician Co-Signing Physician Notes The patient was not seen by me. The chart was reviewed. Case discussed with REBECCA Raya. Agree with assessment and plan Subjective Evaluated this morning, had been tachycardic/febrile last evening. IVF bolus provided, labs checked and abx restarted. Suspect either sacral vs more likely urine source at this time given recent change of catheter and bacteria to sacrum/fungal to area and already growing gram negative bacilli. BP borderline but HR improving on continued maintenance IVF. Wound RN ordered special duoderm for less reaction and hopefully will be able to resume wound vac once received. CXR w/ L basilar consolidation and small pleural effusion, typical for pneumonia/aspiration pneumonitis. Remains on scheduled mucomyst for mucus plugging. Updated mother on phone this afternoon, will see about surgery touching base this weekend if looking like needing repeat debridement while attempting to get vac back on on Friday. She inquired about possible condom cath as option as utilized in the past and will look further into this and if able can consider if not had retention as she reports he utilized this in the past but did discuss with his current active infection and worsened sacral wound without vac on for now would want to prevent urine leaking on/around/into the sacrum for repeat/worsened infection but contnued abx for now. Physical Exam Physical Exam: General: 33yo chronically ill appearing male laying in bed, slightly tachycardic to low 100s, moist skin but not in any acute distress HEENT: R eye with some surrounding puffiness/redness, no drainage, eyes open today, trach dependent Resp: improvement in mucus plugging/secretions since mucomyst/suctioning, no significant w/c, 7L trach collar CV: RRR, no significant m/r/g, no pitting edema GI: soft, non distended, feeing tube in place, no drainage Extremities:no edema or clubbing, flexion contractures present . Right great toe without signs of infection or abscess Neuro: non responsive, skull defect from prior craniotomy Skin: sacral ulcer appearing slightly worse/flattened wound edges but no necrotic tissue. blisters stable. wound vac remains off. continued fungal appearance present : coude catheter with yellow clear urine draining Results & Data Results & Data Vital Signs (Past 12 Hours) Vital Signs Temp Pulse Pulse Resp BP Pulse Ox O2 Del Method 10/10/23 07:56 38.4 C H 109 H 20 99/62 L 98 Trach Collar 10/10/23 07:51 38.0 C H 119 H 98/61 L 97 Trach Collar 10/10/23 07:46 114 H 15 96 Trach Collar 10/10/23 04:52 36.7 C 109 H 20 107/71 96 Trach Collar 10/10/23 03:34 37.2 C 109 H 20 93/57 L 100 Trach Collar 10/10/23 01:35 39.4 C H 120 H 20 107/62 98 Trach Collar 10/10/23 01:24 Trach Collar 10/09/23 23:43 39.2 C H 138 H 20 128/86 100 Trach Collar 10/09/23 21:56 109 H 10/09/23 21:23 37.1 C 130 H 18 115/79 96 Trach Collar O2 Flow Rate FiO2 10/10/23 07:56 7 28 10/10/23 07:51 7 10/10/23 07:46 7 28 10/10/23 04:52 7 28 10/10/23 03:34 7 28 10/10/23 01:35 7 10/10/23 01:24 10/09/23 23:43 7 10/09/23 21:56 10/09/23 21:23 7.0 Laboratory Results 10/10/23 10/10/23 Range/Units 06:48 00:38 WBC 20.30 H 16.45 H (4.8-10.8) K/ul RBC 3.00 L 3.42 L (4.70-6.10) M/uL Hgb 9.0 L 10.4 L (14.0-18.0) g/dl Hct 29.6 L 33.1 L (42.0-52.0) % MCV 98.7 96.8 (80.0-100.0) fL MCH 30.0 30.4 (25.0-34.0) pg MCHC 30.4 L 31.4 L (32.0-36.0) g/dL RDW Std Deviation 54.4 H 53.5 H (36.4-46.3) fL RDW Coeff of Dario 15.2 H 15.2 H (11.5-14.5) % Plt Count 259 283 (130-400) K/uL MPV 11.9 11.8 (9.4-12.4) fL Immature Gran % (Auto) 0.7 0.6 % Neut % (Auto) 89.8 92.6 % Lymph % (Auto) 3.8 3.4 % Kershaw % (Auto) 5.2 2.4 % Eos % (Auto) 0.3 0.8 % Baso % (Auto) 0.2 0.2 % Neut # (Auto) 18.22 H 15.23 H (1.40-6.50) K/uL Lymph # (Auto) 0.78 L 0.56 L (1.20-3.40) K/uL Kershaw # (Auto) 1.05 H 0.39 (0.11-0.59) K/uL Eos # (Auto) 0.07 0.13 (0.00-0.50) K/uL Baso # (Auto) 0.04 0.04 (0.00-0.20) K/uL Immature Gran # (Auto) 0.14 0.10 (0.01-0.20) K/uL Absolute Nucleated RBC 0.02 0.02 (0.00-0.12) K/uL Nucleated RBC % (auto) 0.1 0.1 % Sodium 143 138 (136-145) mmol/L Potassium 3.6 4.1 (3.5-5.1) mmol/L Chloride 109 H 101 (98-107) mmol/L Carbon Dioxide 28 28 (21-32) mmol/L Anion Gap 6 9 (3-11) BUN 26 H 38 H (6-23) mg/dl Creatinine 0.45 L 0.51 L (0.6-1.4) mg/dl Est Cr Clr Drug Dosing 175.7 155.0 ml/min Est GFR ( Amer) > 150.0 > 150.0 ml/min Est GFR (Non-Af Amer) 148.7 141.2 ml/min BUN/Creatinine Ratio 57.8 H 74.5 H (10-20) Glucose 120 H 117 H (70-99(Fasting)) mg/dl Lactate 1.7 (0.4-2.0) mmol/L Calcium 8.8 9.1 (8.6-10.3) mg/dl Phosphorus 2.7 (2.5-4.9) mg/dl Magnesium 1.8 (1.7-2.4) mg/dl Total Bilirubin 0.5 (0.2-1.0) mg/dl AST 10 L (13-39) U/L ALT 11 (7-52) U/L Alkaline Phosphatase 58 (34-104) U/L Total Protein 6.3 (6.0-8.3) gm/dl Albumin 3.3 L (3.4-5.0) gm/dl Globulin 3.0 (2.5-4.0) gm/dl Albumin/Globulin Ratio 1.1 (0.9-2) Procalcitonin 4.59 H 0.13 (0-0.5) ng/ml Diagnostic Findings Chest X-Ray 10/10/23 01:37 SINGLE VIEW CHEST CLINICAL HISTORY: Sepsis. FINDINGS: An AP, portable, upright chest radiograph is compared to study dated 10/08/2023. The examination is degraded by portable technique and patient rotation. A tracheostomy is unchanged in position. A shunt catheter traverses the left chest wall. The heart is enlarged. The pulmonary vasculature is noncongested. There is left basilar consolidation and a small left pleural effusion. No pneumothorax is seen. The skeletal structures are osteopenic. The bony thorax is grossly intact. IMPRESSION: 1. Cardiomegaly without radiographic evidence of congestive failure. 2. There is left basilar consolidation with a small pleural effusion. The appearance is typical for pneumonia/aspiration pneumonitis. Clinical correlation will be required and radiographic follow-up to resolution is recommended. ACT 112: Negative or not required by law. Electronically signed by: Jayce Waite M.D. 10/10/2023 8:19 AM PG Care Time/CCT Total # of Minutes Spent Total Time Spent with Patient: Total time spent is greater than 50% in coordination of care (as documented) at patient's floor/unit and/or counseling patient: Coding Level of Care Code 48624 SUB INP/OBS CARE 3/50MIN Diagnoses Decubitus ulcer of sacral region, stage 4 L89.154 Chronic osteomyelitis of sacrum M86.68 Hospital acquired PNA J18.9; Y95 Candidiasis B37.9 Severe protein-calorie malnutrition E43 History of DVT (deep vein thrombosis) Z86.718 History of nontraumatic rupture of cerebral aneurysm Z86.79 Autonomic dysfunction G90.9 Cardiomyopathy I42.9 Tracheostomy status Z93.0 Tachycardia R00.0
--- NOTE | 2023-10-10 08:20 | XRay Report ---
SINGLE VIEW CHEST CLINICAL HISTORY: Sepsis. FINDINGS: An AP, portable, upright chest radiograph is compared to study dated 10/08/2023. The examina tion is degraded by portable technique and patient rotation. A tracheostomy is unchanged in position . A shunt catheter traverses the left chest wall. The heart is enlarged. The pulmonary vasculature is noncongested. There is left basilar consolidation and a small left pleural effusion. No pneumothorax is seen. The skeletal structures are osteopenic. The bony thorax is grossly intact. IMPRESSION: 1. Cardiomegaly without radiographic evidence of congestive failure. 2. There is left basilar consolidation with a small pleural effusion. The appearance is typical for p neumonia/aspiration pneumonitis. Clinical correlation will be required and radiographic follow-up to resolution is recommended. ACT 112: Negative or not required by law. Electronically signed by: Jayce Waite M.D. 10/10/2023 8:19 AM
[2023-10-10] MEDS: FLUCONAZOLE 100 MG TAB PO SCH (08:57)
[2023-10-10] MEDS ORDERED: ACETAMINOPHEN 1,000 MG/100 ML VIAL IV PRN (15:21)
[2023-10-10 17:47] LABS: Hematocrit (blood only) 27.7 % (42.0-52.0); Hemoglobin 8.6 g/dl (14.0-18.0); Mean Corpuscular Hemoglobin 30.3 pg (25.0-34.0); Mean Corpuscular Volume 97.5 fL (80.0-100.0); Mean Platelet Volume 12.3 fL (9.4-12.4); Platelet Count 241 K/uL (130-400); RDW Coefficient of Variation 15.3 % (11.5-14.5); RDW Standard Deviation 54.8 fL (36.4-46.3); Red Blood Count 2.84 M/uL (4.70-6.10); White Blood Count 17.07 K/ul (4.8-10.8)
[2023-10-10 18:03] LABS: Anion Gap 7 (3-11); BUN Creatinine Ratio 76.5 (10-20); Blood Urea Nitrogen 26 mg/dl (6-23); Calcium 8.6 mg/dl (8.6-10.3); Carbon Dioxide 26 mmol/L (21-32); Chloride 107 mmol/L (98-107); Creatinine Clr Calc Pharmacy 232.5 ml/min; Est GFR (African American) > 150.0 ml/min; Est GFR (Non-African American) > 150.0 ml/min; Glucose 116 mg/dl (70-99(Fasting)); Potassium 3.6 mmol/L (3.5-5.1); Sodium 140 mmol/L (136-145)
[2023-10-11] MEDS: DAPTOmycin 225 MG in SYRINGE 0 ML IV SCH (05:13)
--- NOTE | 2023-10-11 05:57 | Electrocardiogram Report ---
Test Reason : Blood Pressure : / mmHG Vent. Rate : 140 BPM Atrial Rate : 140 BPM P-R Int : 128 ms QRS Dur : 074 ms QT Int : 270 ms P-R-T Axes : 048 -16 089 degrees QTc Int : 412 ms Sinus tachycardia Possible Left atrial enlargement Nonspecific ST and T wave abnormality Abnormal ECG When compared with ECG of 17-JUL-2023 20:50, Vent. rate has increased BY 64 BPM Nonspecific T wave abnormality now evident in Lateral leads Confirmed by Isac Landeros ([id number]) on 10/11/2023 5:57:01 AM Referred By: REFERRED SELF Confirmed By:Amilcar Landeros
[2023-10-11 06:44] LABS: A calco-baum cmplx NotReported Not Detected (NotDetected); Bact fragilis Not Reported Not Detected (NotDetected); Blood Culture Id Panel See PCR Comment (NotDetected); C auris Not Reported Not Detected (NotDetected); CTX-M Resistant Gene Not Detected (NotDetected); Calbicans Not Reported Not Detected (NotDetected); Candida glabrata Not Reported Not Detected (NotDetected); Candida krusei Not Reported Not Detected (NotDetected); Cneoformans/gatti Not Reported Not Detected (NotDetected); Cparapsilosis Not Reported Not Detected (NotDetected); E cloacae compx Not Reported Not Detected (NotDetected); Efaecalis Not Reported Not Detected (NotDetected); Efaecium Not Reported Not Detected (NotDetected); Enterobacterales Not Reported Not Detected (NotDetected); Escherichia coli Not Reported Not Detected (NotDetected); H influenzae Not Reported Not Detected (NotDetected); IMP Resistant Gene Not Detected (NotDetected); K aerogenes Not Reported Not Detected (NotDetected); KPC Resistant Gene Not Detected (NotDetected); Koxytoca Not Reported Not Detected (NotDetected); Kpneumoniae grp Not Reported Not Detected (NotDetected); Lmonocyt Not Reported Not Detected (NotDetected); N meningitidis Not Reported Not Detected (NotDetected); NDM Resistant Gene Not Detected (NotDetected); P aeruginosa Not Reported DETECTED (NotDetected); Proteus spp Not Reported Not Detected (NotDetected); Salmonella spp Not Reported Not Detected (NotDetected); Smarcescens Not Reported Not Detected (NotDetected); Staph lugdunensis Not Reported Not Detected (NotDetected); Staph spp. Not Reported Not Detected (NotDetected); Staphaureus Not Reported Not Detected (NotDetected); Staphepi Not Reported Not Detected (NotDetected); Stenmaltophilia Not Reported Not Detected (NotDetected); Strep agal(GrpB) Not Reported Not Detected (NotDetected); Strep pneum Not Reported Not Detected (NotDetected); Strep pyog (GrpA) Not Reported Not Detected (NotDetected); Strep spp Not Reported Not Detected (NotDetected); VIM Resistant Gene Not Detected (NotDetected)
[2023-10-11 06:52] LABS: Pseudomonas aeruginosa DETECTED (NotDetected)
[2023-10-11 07:09] LABS: Basophils # (auto) 0.03 K/uL (0.00-0.20); Basophils % (auto) 0.2 %; Eosinophils # (auto) 0.19 K/uL (0.00-0.50); Eosinophils % (auto) 1.3 %; Hematocrit (blood only) 27.1 % (42.0-52.0); Hemoglobin 8.5 g/dl (14.0-18.0); Immature Granulocytes # (auto) 0.09 K/uL (0.01-0.20); Immature Granulocytes % (auto) 0.6 %; Lymphocytes # (auto) 0.99 K/uL (1.20-3.40); Lymphocytes % (auto) 6.8 %; Mean Corpuscular Hemoglobin 29.9 pg (25.0-34.0); Mean Corpuscular Hgb Conc 31.4 g/dL (32.0-36.0); Mean Corpuscular Volume 95.4 fL (80.0-100.0); Monocytes # (auto) 0.65 K/uL (0.11-0.59); Monocytes % (auto) 4.5 %; Neutrophils # (auto) 12.55 K/uL (1.40-6.50); Neutrophils % (auto) 86.6 %; Platelet Count 262 K/uL (130-400); RDW Coefficient of Variation 15.4 % (11.5-14.5); RDW Standard Deviation 52.7 fL (36.4-46.3); Red Blood Count 2.84 M/uL (4.70-6.10)
[2023-10-11 07:27] LABS: Alanine Aminotransferase 9 U/L (7-52); Albumin Level 3.2 gm/dl (3.4-5.0); Alkaline Phosphatase 58 U/L (34-104); Anion Gap 6 (3-11); Aspartate Aminotransferase 9 U/L (13-39); BUN Creatinine Ratio 59.4 (10-20); Bilirubin,Total 0.3 mg/dl (0.2-1.0); Blood Urea Nitrogen 19 mg/dl (6-23); Calcium 8.9 mg/dl (8.6-10.3); Carbon Dioxide 27 mmol/L (21-32); Chloride 109 mmol/L (98-107); Creatinine Clr Calc Pharmacy 247.1 ml/min; Est GFR (African American) > 150.0 ml/min; Est GFR (Non-African American) > 150.0 ml/min; Globulin 3.2 gm/dl (2.5-4.0); Glucose 118 mg/dl (70-99(Fasting)); Magnesium 1.8 mg/dl (1.7-2.4); Potassium 3.9 mmol/L (3.5-5.1); Sodium 142 mmol/L (136-145); Total Protein 6.4 gm/dl (6.0-8.3)
--- NOTE | 2023-10-11 07:30 | XRay Report ---
SINGLE VIEW CHEST CLINICAL HISTORY: Follow-up pneumonia. FINDINGS: An AP, portable, supine chest radiograph is compared to study dated 10/10/2023. The examinat ion is degraded by portable technique. A tracheostomy is unchanged in position. A shunt catheter tra verses the left chest wall. The heart is enlarged. The pulmonary vasculature is noncongested. Left ba silar opacities persist. There is likely a small left pleural effusion. No pneumothorax is seen. The skeletal structures are osteopenic. The bony thorax is grossly intact. IMPRESSION: 1. Cardiomegaly without radiographic evidence of congestive failure. 2. Left basilar opacities persist and is likely a small left pleural effusion. Continued follow-up to resolution is recommended. ACT 112: Negative or not required by law. Electronically signed by: Jayce Waite M.D. 10/11/2023 7:29 AM
--- NOTE | 2023-10-11 08:12 | Hospitalist Progress Note ---
Date of Service October 11, 2023 Assessment & Plan (1) Bacteremia: Plan: Overnight 10/08-10/09 worsening tachycardia/fevers, blood cultures obtained and repeat labs with leukocytosis and fever with temperature Max 39.4C ~1am on 10/09- in setting of recently exchanged urinary catheter but also with wound vac off at present due to blistering/allergy to adhesives. 2L IVF bolus, 1 additional L provided w/ improvement and placed on maintenance fluids and empiric abx Continue Cefepime given hx pseudomonas, Dapto ordered for coverage hx VRE to sacrum while wound vac off/worsened appearance on exam Blood cultures resulting AM 10/10 with 1/2 sets gram negative bacilli -- PCR ID w/ pseudomonas Urine cx also growing Pseudomonas, pansensitive WBC 20.3k--> 17k--> 14.5k Last temp 37.9C AM 10/09 ~9am Tylenol IV q8h prn for now , resume his usual schedule for pain as able HRs improved, 79-90s this morning, BP appears stable/improved IVF had been ordered for dehydration/sepsis/bacteremia, will stop maintenance IVF this afternoon and monitor BP/HR, continues on abx as outlined ID re-consulted Monitor for need for debridement for sacrum, general surgery notified possible need pending ability to get wound vac back in place Friday w/ special duoderm as ordered by wound RN Will attempt to dc catheter and utilize condom cath once wound vac in place to prevent additional infections as able/discussed with mother at bedside Monitor labs/exam on repeat (2) Decubitus ulcer of sacral region, stage 4: Plan: Present on admission. - s/p debridement in the OR by Dr Issa on 07/31/23. - Wound vac placed on 08/01. Wound vac then changed to a pulsating irrigation wound vac on 08/21/23. - Due to lack of improvement and worsening appearance of his ulcer he underwent repeat debridement in the OR by Dr Dorsey on 08/25/23. On 09/04 the wound vac was removed due to candidiasis (extensive) in sacral area. Treated with fluconazole. Wound VAC was replaced on 09/18, draining purulent material. Continue wound care. Appreciate general surgery and wound care assistance. Wound care removed wound VAC over the weekend, replaced 10/05 10/06 Remains off abx, afebrile. Wound vac in place Meeting w/ family and providers 4/15, paperwork completed, original back to patients room. CM following for ongoing placement concerns/issues 10/07 Changed wound vac w/ wound RN today, keeping off for now but will need ongoing monitoring as does tend to have set backs but increased fluid and worsened appearance. WBC wnl/afebrile at present time Also with increased oral secretions, RN to call RT for Mucomyst treatment, ongoing suctioning, Will obtain CXR for review given prior HAP s/p treatment with Cefepime given bronch cx pseudomonas, intermediate resistance to Zosyn 10/08 WBC borderline 10.3k but afebrile - needing to monitor for need for repeat infection to sacrum. Notified surgery, will reach back out in AM. Wound vac remains off at present time, blisters prior covered w/ dressing. Mucomyst made scheduled due to thickened secretions/mucus plugging and appears to have made improvement. Continue to suction as needed (much less audible secretions) Lewis exchanged, coude in place, clear yellow urine draining Moving his bowels Continued inpatient stay 10/09 Tachycardic last evening w/ fever 39.4C. Provided 2L IVF, additional 1L bolus. Lactic 1.7 however procalcitonin 4.5 on AM labs and bcx added overnight prior to starting abx and +1/2 as above matching urine Remained on Dapto for SSTI for sacrum, fluconazole added for fungal appearance. Duoderm ordered for hopeful replacement wound vac on tuesday 10/10-- See above regarding bacteremia. Remains on Dapto SSTI dosing for now. MOntior blood cultures to ensure not needing to increase dosing (3) Chronic osteomyelitis of sacrum: Plan: intra-op culture from 07/31 with MSSA, pseudomonas, providencia, and anaerobes. Sacral bone biopsy 08/24 with VRE and 2-week course of linezolid completed as of end 09/12. Per infectious disease, patient has completed 6 weeks of IV abx with concurrent wound vac. Mainly pip-tazo and cefepime (metronidazole added ) from 07/31/23 09/10/23 Procal elevation as above, 4.59 Continue Cefepime/Dapto for now, urine/blood cultures as above Wound RN following (see pic 10/09, slightly worse - abx for dual coverage as above). Ordered special duoderm, hopefully able to replace wound vac once received on Friday.-monitor for need for surgery eval this weekend (did notify Dr Willams once wound vac removed and notified on-call in case needed), can recall (4) Hospital acquired PNA: Plan: LLL -- resolved. Due to pseudomonas infection. Chronology of events: 08/01 - cxr with worsening infiltrates on left 08/03 - collapse LLL 08/03 - bronchoscopy by Dr Blancas with mucous plugging found in the left-sided bronchial tree s/p removal; 08/07 - s/p bronch by Dr Lock - minimal secretions LLL, no plugs; thick secretions in trach, however 08/09 - bronch cx - pseudomonas, intermediate resistance 08/09 - changed zosyn to cefepime 08/22 - cxr - ongoing LLL infiltrates/effusion - similar to previous imaging 09/17- cxr shows improved aeration within the left lung base trach routinely changed to cuffless by Dr. Street 09/09 Repeat chest x-ray done on 09/17 showed improved aeration within the left lung base. A 1 month follow-up is recommended (10/18 if continues inpatient) 10/08--CXR w/ L basilar consolidation/small pleural effusion, typical for pneumonia/aspiration pneuomintis--> Made mucomyst scheduled BID, high risk for mucus plugging 10/10- continues on cefepime/dapto for above, lung exam improved and remains on mucomyst and would continue this scheduled given high risk mucus plugging. back to usual 6L trach collar (5) Candidiasis: Plan: multiple locations - back/buttocks, groin, R axillary region. Cont anti-yeast topical powders. Completed 7d Diflucan 09/11 with significant improvement RESUMED DIFLUCAN FOR FUNGAL APPEARANCE ON EXAM, started 10/09 (6) Severe protein-calorie malnutrition: Plan: Chronic. Improving slowly. Peg tube replaced 09/25 , tolerating Continue current nutrition recommendations (7) History of DVT (deep vein thrombosis): Plan: RLE DVT discovered 11/2022. Had been on Eliquis 5mg BID since 12/12/22. Eliquis dosage has been reduced to 2.5mg BID (8) History of nontraumatic rupture of cerebral aneurysm: Plan: Patient is nonverbal at baseline with chronic contractures in all 4 extremities, has eye opening, roving eye movements, grimacing, sleep-wake cycles. Functional quadriplegia. CT head shows encephalomalacia and good shunt placement . He unfortunately suffered a ruptured brain aneurysm and SAH 08/2022. Status post craniotomy and evacuation of hematoma. 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 He has a ventriculoperitoneal shunt in place. Known resultant severe autonomic dysfunction / paroxysmal sympathetic hyperactivity / autonomic storm which is controlled on medications and has the potential to be confused with sepsis. Continue current medical management (9) Autonomic dysfunction: Plan: Stable. Continue dantrolene and bromocriptine. Continue gabapentin and baclofen for spasticity (10) Cardiomyopathy: Plan: last echo 07/11/23 - low normal EF 50-55%. No acute current problems. Continue beta-joon therapy. (11) Tracheostomy status: Plan: cont local trach care. On 09/09, trach changed to 8.0 uncuffed tracheostomy tube by Dr. Street (12) Tachycardia: Plan: maintaining low 100s throughout the day 09/29 however AM metoprolol was held , no signs of new infection on exam ABOVE, suspect elevated HR 10/09 2nd to sepsis. IVF/abx as outlined and improvement in HR/BP and will monitor Low threshold to upgrade to monitored bed given bacteremia as above but will montior for now Plan Placement pending. Family meeting held 09/30 . Family updated at bedside 10/05, form completed and provided in room 10/06. Updated mother by phone 10/09 and in person 10/10 Recent history (resolved issues): #Bacteremias 06/2023, completed treatment and resolved -- sources included: SSTI sacral decubitus ulcer, Group C strep bacteremia - source thought 2nd to sacral wound, Coag neg staph bacteremia - contaminant vs bacteremia. Corynebacterium bacteremia --> as above, now with bacteremia again, abx as outlined/ID consulted lewis exchanged (coude in place) 10/07 -- UTI as above, consider condom cath pending wound vac #Bilateral calf wounds, have healed. Ear wound, has healed. #Pneumatosis coli seen on CT abdomen mid Jun 2023. Evaluated by General surgery last admission. since no surgical abdomen/peritonitis/symptoms no Rx recommended during that admission etiology of the CT findings was uncertain. abdominal exam remains benign / soft day-to-day, tolerates TF well. # transaminitis - resolved trach changed 09/09, peg tube changed 09/25 , wound vac 10/05 ( NOW OFF) Most recent CM note 10/07 noting [facility] unable to accept but messages out to [facility] (accepts trachs) and [facility] to see if accepts trac hs Admission and Anticipated Discharge Date Admission Date: July 18, 2023 Supervising Physician Co-Signing Physician Notes The patient was not seen by me. The chart was reviewed. Case discussed with REBECCA Raya. Agree with assessment and plan Subjective Eval this morning, resting in bed, mother Crystal at bedside/updated. Patient appears improved from yesterday morning, WBC improved and no further fevers. Discussed blood culture results and antibiotic regimen. Wound RN ordered special duoderm and will attempt to place wound vac friday and if able will plan to attempt removal of urinary catheter/monitor for retention. mom reports maybe some initial retention after catheter for first day but usually resolves and will monitor to see if able to avoid additional catheters. Patient w/ moderate soft BM currently, RN to assist in cleaning up. Suctioning as needed and improvement in lung exam however continue mucomyst and will monitor for need for additional nebulizer treatments. IVF continued through this afternoon and will monitor vital signs and stop if remaining stable. Physical Exam Physical Exam: General: 33yo chronically ill appearing male laying in bed, appears improved, mother at bedside HEENT: R decreased drainage/no significant puffiness, trach dependent, suctioned in room Resp: + mucus, suctioned, L base crackles, no significant wheezing, on 6L trach collar CV: RRR, no significant m/r/g, no pitting edema GI: soft, non distended, feeing tube in place, no drainage +soft brown stool in bed at present Extremities:no edema or clubbing, flexion contractures present . Right great toe without signs of infection or abscess Neuro: non responsive, skull defect from prior craniotomy Skin: sacral ulcer appearing stable but flattened edges (see prior wound picture, no necrotic tissue at present) fungal appearance appears improved, wound vac remains off : coude catheter with yellow clear urine draining Results & Data Results & Data Vital Signs (Past 12 Hours) Vital Signs Temp Pulse Resp BP Pulse Ox O2 Del Method O2 Flow Rate 10/11/23 07:16 79 17 98 Trach Collar 10/10/23 21:00 Trach Collar 6 10/10/23 20:16 36.8 C 107 H 16 100/62 96 Trach Collar FiO2 10/11/23 07:16 28 10/10/23 21:00 10/10/23 20:16 Laboratory Results 10/11/23 10/10/23 10/10/23 Range/Units 06:37 16:30 00:28 WBC 14.50 H 17.07 H (4.8-10.8) K/ul RBC 2.84 L 2.84 L (4.70-6.10) M/uL Hgb 8.5 L 8.6 L (14.0-18.0) g/dl Hct 27.1 L 27.7 L (42.0-52.0) % MCV 95.4 97.5 (80.0-100.0) fL MCH 29.9 30.3 (25.0-34.0) pg MCHC 31.4 L 31.0 L (32.0-36.0) g/dL RDW Std Deviation 52.7 H 54.8 H (36.4-46.3) fL RDW Coeff of Dario 15.4 H 15.3 H (11.5-14.5) % Plt Count 262 241 (130-400) K/uL MPV 12.0 12.3 (9.4-12.4) fL Immature Gran % (Auto) 0.6 % Neut % (Auto) 86.6 % Lymph % (Auto) 6.8 % Harlan % (Auto) 4.5 % Eos % (Auto) 1.3 % Baso % (Auto) 0.2 % Neut # (Auto) 12.55 H (1.40-6.50) K/uL Lymph # (Auto) 0.99 L (1.20-3.40) K/uL Harlan # (Auto) 0.65 H (0.11-0.59) K/uL Eos # (Auto) 0.19 (0.00-0.50) K/uL Baso # (Auto) 0.03 (0.00-0.20) K/uL Immature Gran # (Auto) 0.09 (0.01-0.20) K/uL Sodium 142 140 (136-145) mmol/L Potassium 3.9 3.6 (3.5-5.1) mmol/L Chloride 109 H 107 (98-107) mmol/L Carbon Dioxide 27 26 (21-32) mmol/L Anion Gap 6 7 (3-11) BUN 19 26 H (6-23) mg/dl Creatinine 0.32 L 0.34 L (0.6-1.4) mg/dl Est Cr Clr Drug Dosing 247.1 232.5 ml/min Est GFR ( Amer) > 150.0 > 150.0 ml/min Est GFR (Non-Af Amer) > 150.0 > 150.0 ml/min BUN/Creatinine Ratio 59.4 H 76.5 H (10-20) Glucose 118 H 116 H (70-99(Fasting)) mg/dl Calcium 8.9 8.6 (8.6-10.3) mg/dl Magnesium 1.8 (1.7-2.4) mg/dl Total Bilirubin 0.3 (0.2-1.0) mg/dl AST 9 L (13-39) U/L ALT 9 (7-52) U/L Alkaline Phosphatase 58 (34-104) U/L Total Protein 6.4 (6.0-8.3) gm/dl Albumin 3.2 L (3.4-5.0) gm/dl Globulin 3.2 (2.5-4.0) gm/dl Albumin/Globulin Ratio 1.0 (0.9-2) P. aeruginosa (PCR) DETECTED A (NotDetected) blaIMP Car res Gene PCR Not Detected (NotDetected) KPC-Carbap Res Gene PCR Not Detected (NotDetected) blaNDM Car Res Gene PCR Not Detected (NotDetected) blaVIM Car Res Gene PCR Not Detected (NotDetected) CTX-M Gene Resistance (PCR) Not Detected (NotDetected) Bld Cult ID Panel PCR See PCR Comment (NotDetected) Diagnostic Findings Chest X-Ray 10/11/23 06:00 SINGLE VIEW CHEST CLINICAL HISTORY: Follow-up pneumonia. FINDINGS: An AP, portable, supine chest radiograph is compared to study dated 10/10/2023. The examination is degraded by portable technique. A tracheostomy is unchanged in position. A shunt catheter traverses the left chest wall. The heart is enlarged. The pulmonary vasculature is noncongested. Left basilar opacities persist. There is likely a small left pleural effusion. No pneumothorax is seen. The skeletal structures are osteopenic. The bony thorax is grossly intact. IMPRESSION: 1. Cardiomegaly without radiographic evidence of congestive failure. 2. Left basilar opacities persist and is likely a small left pleural effusion. Continued follow-up to resolution is recommended. ACT 112: Negative or not required by law. Electronically signed by: Jayce Waite M.D. 10/11/2023 7:29 AM PG Care Time/CCT Total # of Minutes Spent Total Time Spent with Patient: Total time spent is greater than 50% in coordination of care (as documented) at patient's floor/unit and/or counseling patient: Coding Level of Care Code 91400 SUB INP/OBS CARE 3/50MIN Diagnoses Bacteremia R78.81 Decubitus ulcer of sacral region, stage 4 L89.154 Chronic osteomyelitis of sacrum M86.68 Hospital acquired PNA J18.9; Y95 Candidiasis B37.9 Severe protein-calorie malnutrition E43 History of DVT (deep vein thrombosis) Z86.718 History of nontraumatic rupture of cerebral aneurysm Z86.79 Autonomic dysfunction G90.9 Cardiomyopathy I42.9 Tracheostomy status Z93.0 Tachycardia R00.0
--- NOTE | 2023-10-11 16:54 | Communication Note ---
Date of Service: October 11, 2023 Discussed w/ pharmacy, extended Cefepime IV (also discussed continuous infusion which could keep BASHIR therapeutic 100% of time but w/ increased CrCl could also be opposite. Given improvement in WBC continuing current q8h dosing). Regarding Dapto, given sacral wound stable/not worse but not significantly improved is on appropriate dosing for typically SSTI at 4mg/kg however w/ VRE recs for increase 8mg/kg and adjustment made.
[2023-10-11] MEDS: DAPTOmycin 225 MG in SYRINGE 0 ML IV STA (19:26)
[2023-10-11] MEDS: SODIUM CHLORIDE 0.9% 1,000 ML IV SCH (23:44)
[2023-10-12 06:15] LABS: Basophils # (auto) 0.03 K/uL (0.00-0.20); Basophils % (auto) 0.3 %; Eosinophils # (auto) 0.25 K/uL (0.00-0.50); Eosinophils % (auto) 2.9 %; Hematocrit (blood only) 29.6 % (42.0-52.0); Hemoglobin 9.2 g/dl (14.0-18.0); Immature Granulocytes # (auto) 0.03 K/uL (0.01-0.20); Immature Granulocytes % (auto) 0.3 %; Lymphocytes # (auto) 1.06 K/uL (1.20-3.40); Lymphocytes % (auto) 12.3 %; Mean Corpuscular Hemoglobin 29.9 pg (25.0-34.0); Mean Corpuscular Hgb Conc 31.1 g/dL (32.0-36.0); Mean Corpuscular Volume 96.1 fL (80.0-100.0); Mean Platelet Volume 12.2 fL (9.4-12.4); Monocytes # (auto) 0.57 K/uL (0.11-0.59); Monocytes % (auto) 6.6 %; Neutrophils % (auto) 77.6 %; Platelet Count 256 K/uL (130-400); RDW Coefficient of Variation 15.2 % (11.5-14.5); RDW Standard Deviation 53.1 fL (36.4-46.3); Red Blood Count 3.08 M/uL (4.70-6.10); White Blood Count 8.64 K/ul (4.8-10.8)
[2023-10-12 06:37] LABS: Alanine Aminotransferase 9 U/L (7-52); Albumin Level 3.4 gm/dl (3.4-5.0); Alkaline Phosphatase 55 U/L (34-104); Anion Gap 7 (3-11); Aspartate Aminotransferase 9 U/L (13-39); BUN Creatinine Ratio 63.3 (10-20); Bilirubin,Total 0.3 mg/dl (0.2-1.0); Blood Urea Nitrogen 19 mg/dl (6-23); Calcium 9.4 mg/dl (8.6-10.3); Carbon Dioxide 28 mmol/L (21-32); Chloride 107 mmol/L (98-107); Creatinine Clr Calc Pharmacy 290.3 ml/min; Est GFR (African American) > 150.0 ml/min; Est GFR (Non-African American) > 150.0 ml/min; Globulin 3.4 gm/dl (2.5-4.0); Glucose 102 mg/dl (70-99(Fasting)); Magnesium 1.9 mg/dl (1.7-2.4); Potassium 4.2 mmol/L (3.5-5.1); Sodium 142 mmol/L (136-145); Total Protein 6.8 gm/dl (6.0-8.3)
--- NOTE | 2023-10-12 07:22 | XRay Report ---
XR chest 1V portable CLINICAL HISTORY: f/u L basilar opacity COMPARISON STUDY: Chest radiograph October 11, 2023. FINDINGS: Tracheostomy tube and partially visualized [employer] shunt catheter are noted. Visualized portions of the shunt catheter are intact. There is no pneumothorax or pleural effusion. Left basilar opacity has mildly improved. There is no evidence for pulmonary edema. No new sites of consolidation are pre sent. Cardiomediastinal silhouette is stable. IMPRESSION: Mild improvement in left basilar opacity. This favors pneumonia. ACT 112: Negative or not required by law. Electronically signed by: Kirby Spencer M.D. 10/12/2023 7:21 AM
--- NOTE | 2023-10-12 08:00 | Hospitalist Progress Note ---
Date of Service October 12, 2023 Assessment & Plan (1) Bacteremia: Plan: Overnight 10/08-10/09 worsening tachycardia/fevers, blood cultures obtained and repeat labs with leukocytosis and fever with temperature Max 39.4C ~1am on 10/09- in setting of recently exchanged urinary catheter but also with wound vac off at present due to blistering/allergy to adhesives. 2L IVF bolus, 1 additional L provided w/ improvement and placed on maintenance fluids and empiric abx Continue Cefepime given hx pseudomonas, Dapto ordered for coverage hx VRE to sacrum while wound vac off/worsened appearance on exam but increased to 8mg/kg dosing given VRE Blood cultures AM 10/10 with 1/2 sets pseudomonas Urine cx also growing Pseudomonas, pansensitive. * Also notable his bronch washings prior also w/ pseudomonas however resistant to Zosyn WBC now NORMALIZED, last elevation in temperature 37.6C afternoon 10/10, last fever 38.4C AM 10/09 Repeat blood cultures pending IVF now discontinued, VS improved, no significant dehydration and BUN normalized Tylenol IV prn, if remains afebrile can change back to 650mg scheduled as prior taking ID reconsult pending, however given improvement continuing current course Will f/u wound RN w/ duoderm for hopeful replacement of wound vac in AM on Friday and if successful will attempt to remove urinary catheter/attempt to utilize condom cath but wanting to prevent contamination of wound at present time. Can touch base w/ surgery pending exam prior to wound vac placement in AM if needing more debridement. Updated mother Sharlene in room 10/10, again by phone this morning and she will be in to visit [facility] this afternoon Monitor labs/exam on repeat (2) Decubitus ulcer of sacral region, stage 4: Plan: Present on admission. s/p debridement in the OR by Dr Issa on 07/31/23. Wound vac placed on 08/01. Wound vac then changed to a pulsating irrigation wound vac on 08/21/23. Due to lack of improvement and worsening appearance of his ulcer he underwent repeat debridement in the OR by Dr Dorsey on 08/25/23. On 09/04 the wound vac was removed due to candidiasis (extensive) in sacral area. Treated with fluconazole. Wound VAC was replaced on 09/18, draining purulent material. Continue wound care. Appreciate general surgery and wound care assistance. Wound care removed wound VAC over the weekend, replaced 10/05 10/06 Remains off abx, afebrile. Wound vac in place Meeting w/ family and providers 10/05, paperwork completed, original back to patients room. CM following for ongoing placement concerns/issues 10/07 Changed wound vac w/ wound RN today, keeping off for now but will need ongoing monitoring as does tend to have set backs but increased fluid and worsened appearance. WBC wnl/afebrile at present time Also with increased oral secretions, RN to call RT for Mucomyst treatment, ongoing suctioning, Will obtain CXR for review given prior HAP s/p treatment with Cefepime given bronch cx pseudomonas, intermediate resistance to Zosyn 10/08 WBC borderline 10.3k but afebrile needing to monitor for need for repeat infection to sacrum. Notified surgery, will reach back out in AM. Wound vac remains off at present time, blisters prior covered w/ dressing. Mucomyst made scheduled due to thickened secretions/mucus plugging and appears to have made improvement. Continue to suction as needed (much less audible secretions) Lewis exchanged, coude in place, clear yellow urine draining Moving his bowels Continued inpatient stay 10/09 Tachycardic last evening w/ fever 39.4C. Provided 2L IVF, additional 1L bolus. Lactic 1.7 however procalcitonin 4.5 on AM labs and bcx added overnight prior to starting abx and +1/2 as above matching urine Remained on Dapto for SSTI for sacrum, fluconazole added for fungal appearance. Duoderm ordered for hopeful replacement wound vac on Tuesday 10/10 See above regarding bacteremia. Remains on Dapto SSTI dosing for now however given VRE, increased to 8mg/kg dosing 10/11 WBC trending down, now wnl 8.6k. Temp 37.6C yesterday afternoon however nothing since Repeat blood cx to ensure clearing pending IVF discontinued yesterday afternoon Wound vac placement tomorrow hopefully as above (3) Chronic osteomyelitis of sacrum: Plan: intra-op culture from 07/31 with MSSA, pseudomonas, providencia, and anaerobes. Sacral bone biopsy 08/24 with VRE and 2-week course of linezolid completed as of end 09/12. Per infectious disease, patient has completed 6 weeks of IV abx with concurrent wound vac. Mainly pip-tazo and cefepime (metronidazole added ) from 07/31/23 09/10/23 Procal elevation as above, 4.59 Continue Cefepime/Dapto for now, dapto increased dosing as above Wound RN following (see pic 10/09, slightly worse - abx for dual coverage as above). Ordered special duoderm, hopefully able to replace wound vac once received on Friday.-monitor for need for surgery eval this weekend (did notify Dr Willams once wound vac removed and notified on-call in case needed), can recall (4) Hospital acquired PNA: Plan: LLL -- resolved. Due to pseudomonas infection. Chronology of events: 08/01 - cxr with worsening infiltrates on left 08/03 - collapse LLL 08/03 - bronchoscopy by Dr Blancas with mucous plugging found in the left-sided bronchial tree s/p removal; 08/07 - s/p bronch by Dr Lock - minimal secretions LLL, no plugs; thick secretions in trach, however 08/09 - bronch cx - pseudomonas, intermediate resistance 08/09 - changed zosyn to cefepime 08/22 - cxr - ongoing LLL infiltrates/effusion - similar to previous imaging 09/17- cxr shows improved aeration within the left lung base trach routinely changed to cuffless by Dr. Street 09/09 Repeat chest x-ray done on 09/17 showed improved aeration within the left lung base. A 1 month follow-up is recommended (10/18 if continues inpatient) 10/08--CXR w/ L basilar consolidation/small pleural effusion, typical for pneumonia/aspiration pneuomintis--> Made mucomyst scheduled BID, high risk for mucus plugging 10/10- continues on cefepime/dapto for above, lung exam improved and remains on mucomyst and would continue this scheduled given high risk mucus plugging. back to usual 6L trach collar 10/11 -- improvement in CXR on exam, covered by abx as outlined above given prior resistant pseudomonas to Zosyn. Monitor in f/u (5) Candidiasis: Plan: multiple locations - back/buttocks, groin, R axillary region. Cont anti-yeast topical powders. Completed 7d Diflucan 09/11 with significant improvement RESUMED DIFLUCAN FOR FUNGAL APPEARANCE ON EXAM, started 10/09 (6) Severe protein-calorie malnutrition: Plan: Chronic. Improving slowly. Peg tube replaced 09/25 , tolerating Continue current nutrition recommendations (7) History of DVT (deep vein thrombosis): Plan: RLE DVT discovered 11/2022. Had been on Eliquis 5mg BID since 12/12/22. Eliquis dosage has been reduced to 2.5mg BID (8) History of nontraumatic rupture of cerebral aneurysm: Plan: Patient is nonverbal at baseline with chronic contractures in all 4 extremities, has eye opening, roving eye movements, grimacing, sleep-wake cycles. Functional quadriplegia. CT head shows encephalomalacia and good shunt placement . He unfortunately suffered a ruptured brain aneurysm and SAH 08/2022. Status post craniotomy and evacuation of hematoma. 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 He has a ventriculoperitoneal shunt in place. Known resultant severe autonomic dysfunction / paroxysmal sympathetic hyperactivity / autonomic storm which is controlled on medications and has the potential to be confused with sepsis. Continue current medical management (9) Autonomic dysfunction: Plan: Stable. Continue dantrolene and bromocriptine. Continue gabapentin and baclofen for spasticity (10) Cardiomyopathy: Plan: last echo 07/11/23 - low normal EF 50-55%. No acute current problems. Continue beta-joon therapy. (11) Tracheostomy status: Plan: cont local trach care. On 09/09, trach changed to 8.0 uncuffed tracheostomy tube by Dr. Street (12) Tachycardia: Plan: maintaining low 100s throughout the day 09/29 however AM metoprolol was held , no signs of new infection on exam ABOVE, suspect elevated HR 10/09 2nd to sepsis. IVF/abx as outlined and improvement in HR/BP and will monitor Low threshold to upgrade to monitored bed given bacteremia as above but will monitor for now Plan Placement pending. Family meeting held 09/30 . Family updated at bedside 10/05, f orm completed and provided in room 10/06. Updated mother in room 10/10, by phone 10/11 Recent history (resolved issues): #Bacteremias 06/2023, completed treatment and resolved -- sources included: SSTI sacral decubitus ulcer, Group C strep bacteremia - source thought 2nd to sacral wound, Coag neg staph bacteremia - contaminant vs bacteremia. Corynebacterium bacteremia --> as above, now with bacteremia , abx as outlined/ID consulted lewis exchanged (coude in place) 10/07 -- UTI as above, consider condom cath pending wound vac #Bilateral calf wounds, have healed. Ear wound, has healed. #Pneumatosis coli seen on CT abdomen mid Jun 2023. Evaluated by General surgery last admission. since no surgical abdomen/peritonitis/symptoms no Rx recommended during that admission etiology of the CT findings was uncertain. abdominal exam remains benign / soft day-to-day, tolerates TF well. # transaminitis - resolved trach changed 09/09, peg tube changed 09/25 , wound vac 10/05 ( NOW OFF) Most recent CM note 10/07 noting [facility] unable to accept but messages out to [facility] (accepts trachs) and [facility] to see if accepts trachs Admission and Anticipated Discharge Date Admission Date: July 18, 2023 Supervising Physician Co-Signing Physician Notes The patient was not seen by me. The chart was reviewed. Case discussed with REBECCA Raya. Agree with assessment and plan Subjective Evaluated this morning, appears improved. Labs and vitals improving, CXR w/ improvement in L basilar opacity (favoring pneumonia). Remains on Cefepime IV for bacteremia, dapto increased yesterday to cover for VRE. No further fevers, wound vac hopefully to be replaced in AM. Physical Exam Physical Exam: General: 33yo chronically ill appearing male laying in bed, appears improved from day prior HEENT: R decreased drainage/no significant puffiness, trach dependent, suctioned in room Resp: less mucus secretion, L base crackles, no significant wheezing, on trach collar CV: RRR, no significant m/r/g, no pitting edema GI: soft, non distended, feeing tube in place, no drainage Extremities:no edema or clubbing, flexion contractures present . Neuro: non responsive, skull defect from prior craniotomy Skin: sacral ulcer appearing stable but flattened edges (see prior wound picture, no necrotic tissue at present) fungal appearance appears IMPROVED, wound vac remains off : coude catheter with yellow slightly cloudy urine draining Results & Data Results & Data Vital Signs (Past 12 Hours) Vital Signs Temp Pulse Resp BP Pulse Ox O2 Del Method O2 Flow Rate 10/12/23 07:48 17 97 Trach Collar 10/12/23 07:08 37.2 C 98 H 18 107/68 93 Room Air 10/11/23 21:57 95/58 L 10/11/23 20:30 Trach Collar 6 10/11/23 20:20 36.8 C 95 H 16 95/57 L 99 Trach Collar 6 FiO2 10/12/23 07:48 28 10/12/23 07:08 10/11/23 21:57 10/11/23 20:30 28 10/11/23 20:20 Laboratory Results 10/12/23 Range/Units 05:21 WBC 8.64 (4.8-10.8) K/ul RBC 3.08 L (4.70-6.10) M/uL Hgb 9.2 L (14.0-18.0) g/dl Hct 29.6 L (42.0-52.0) % MCV 96.1 (80.0-100.0) fL MCH 29.9 (25.0-34.0) pg MCHC 31.1 L (32.0-36.0) g/dL RDW Std Deviation 53.1 H (36.4-46.3) fL RDW Coeff of Dario 15.2 H (11.5-14.5) % Plt Count 256 (130-400) K/uL MPV 12.2 (9.4-12.4) fL Immature Gran % (Auto) 0.3 % Neut % (Auto) 77.6 % Lymph % (Auto) 12.3 % Spink % (Auto) 6.6 % Eos % (Auto) 2.9 % Baso % (Auto) 0.3 % Neut # (Auto) 6.70 H (1.40-6.50) K/uL Lymph # (Auto) 1.06 L (1.20-3.40) K/uL Spink # (Auto) 0.57 (0.11-0.59) K/uL Eos # (Auto) 0.25 (0.00-0.50) K/uL Baso # (Auto) 0.03 (0.00-0.20) K/uL Immature Gran # (Auto) 0.03 (0.01-0.20) K/uL Sodium 142 (136-145) mmol/L Potassium 4.2 (3.5-5.1) mmol/L Chloride 107 (98-107) mmol/L Carbon Dioxide 28 (21-32) mmol/L Anion Gap 7 (3-11) BUN 19 (6-23) mg/dl Creatinine 0.30 L (0.6-1.4) mg/dl Est Cr Clr Drug Dosing 290.3 ml/min Est GFR ( Amer) > 150.0 ml/min Est GFR (Non-Af Amer) > 150.0 ml/min BUN/Creatinine Ratio 63.3 H (10-20) Glucose 102 H (70-99(Fasting)) mg/dl Calcium 9.4 (8.6-10.3) mg/dl Magnesium 1.9 (1.7-2.4) mg/dl Total Bilirubin 0.3 (0.2-1.0) mg/dl AST 9 L (13-39) U/L ALT 9 (7-52) U/L Alkaline Phosphatase 55 (34-104) U/L Total Protein 6.8 (6.0-8.3) gm/dl Albumin 3.4 (3.4-5.0) gm/dl Globulin 3.4 (2.5-4.0) gm/dl Albumin/Globulin Ratio 1.0 (0.9-2) Diagnostic Findings Chest X-Ray 10/12/23 07:00 XR chest 1V portable CLINICAL HISTORY: f/u L basilar opacity COMPARISON STUDY: Chest radiograph October 11, 2023. FINDINGS: Tracheostomy tube and partially visualized [employer] shunt catheter are noted. Visualized portions of the shunt catheter are intact. There is no pneumothorax or pleural effusion. Left basilar opacity has mildly improved. There is no evidence for pulmonary edema. No new sites of consolidation are present. Cardiomediastinal silhouette is stable. IMPRESSION: Mild improvement in left basilar opacity. This favors pneumonia. ACT 112: Negative or not required by law. Electronically signed by: Kirby Spencer M.D. 10/12/2023 7:21 AM PG Care Time/CCT Total # of Minutes Spent Total Time Spent with Patient: Total time spent is greater than 50% in coordination of care (as documented) at patient's floor/unit and/or counseling patient: Coding Level of Care Code 19269 SUB INP/OBS CARE 3/50MIN Diagnoses Bacteremia R78.81 Decubitus ulcer of sacral region, stage 4 L89.154 Chronic osteomyelitis of sacrum M86.68 Hospital acquired PNA J18.9; Y95 Candidiasis B37.9 Severe protein-calorie malnutrition E43 History of DVT (deep vein thrombosis) Z86.718 History of nontraumatic rupture of cerebral aneurysm Z86.79 Autonomic dysfunction G90.9 Cardiomyopathy I42.9 Tracheostomy status Z93.0 Tachycardia R00.0
[2023-10-12] MEDS: DAPTOmycin 425 MG in SYRINGE 0 ML IV SCH (10:43)
[2023-10-13 07:17] LABS: Basophils # (auto) 0.04 K/uL (0.00-0.20); Basophils % (auto) 0.6 %; Eosinophils # (auto) 0.28 K/uL (0.00-0.50); Eosinophils % (auto) 4.5 %; Hematocrit (blood only) 30.9 % (42.0-52.0); Hemoglobin 9.6 g/dl (14.0-18.0); Immature Granulocytes # (auto) 0.03 K/uL (0.01-0.20); Immature Granulocytes % (auto) 0.5 %; Mean Corpuscular Hemoglobin 29.7 pg (25.0-34.0); Mean Corpuscular Hgb Conc 31.1 g/dL (32.0-36.0); Mean Corpuscular Volume 95.7 fL (80.0-100.0); Mean Platelet Volume 11.5 fL (9.4-12.4); Monocytes # (auto) 0.43 K/uL (0.11-0.59); Monocytes % (auto) 6.9 %; Neutrophils # (auto) 4.47 K/uL (1.40-6.50); Neutrophils % (auto) 71.5 %; Platelet Count 266 K/uL (130-400); RDW Coefficient of Variation 14.7 % (11.5-14.5); RDW Standard Deviation 51.8 fL (36.4-46.3); Red Blood Count 3.23 M/uL (4.70-6.10); White Blood Count 6.25 K/ul (4.8-10.8)
[2023-10-13 07:41] LABS: Alanine Aminotransferase 9 U/L (7-52); Albumin Level 3.7 gm/dl (3.4-5.0); Alkaline Phosphatase 58 U/L (34-104); Anion Gap 8 (3-11); Aspartate Aminotransferase 9 U/L (13-39); BUN Creatinine Ratio 81.3 (10-20); Bilirubin,Total 0.3 mg/dl (0.2-1.0); Blood Urea Nitrogen 26 mg/dl (6-23); Calcium 9.6 mg/dl (8.6-10.3); Carbon Dioxide 30 mmol/L (21-32); Chloride 103 mmol/L (98-107); Creatinine Clr Calc Pharmacy 256.4 ml/min; Est GFR (African American) > 150.0 ml/min; Est GFR (Non-African American) > 150.0 ml/min; Globulin 3.8 gm/dl (2.5-4.0); Glucose 123 mg/dl (70-99(Fasting)); Potassium 4.4 mmol/L (3.5-5.1); Sodium 141 mmol/L (136-145); Total Protein 7.5 gm/dl (6.0-8.3)
--- NOTE | 2023-10-13 08:15 | Hospitalist Progress Note ---
Date of Service October 13, 2023 Assessment & Plan (1) Bacteremia: Plan: Overnight 10/08-10/09 worsening tachycardia/fevers, blood cultures obtained and repeat labs with leukocytosis and fever with temperature Max 39.4C ~1am on 10/09- in setting of recently exchanged urinary catheter but also with wound vac off at present due to blistering/allergy to adhesives. 2L IVF bolus, 1 additional L provided w/ improvement and placed on maintenance fluids and empiric abx Continue Cefepime given hx pseudomonas, Dapto ordered for coverage hx VRE to sacrum while wound vac off/worsened appearance on exam but increased to 8mg/kg dosing given VRE Blood cultures AM 10/10 with 1/2 sets pseudomonas Urine cx also growing Pseudomonas, pansensitive. * Also notable his bronch washings prior also w/ pseudomonas however resistant to Zosyn WBC now NORMALIZED, last elevation in temperature 37.6C afternoon 10/10, last fever 38.4C AM 10/09 Repeat blood cultures pending IVF now discontinued, VS improved, no significant dehydration and BUN normalized Tylenol IV prn, if remains afebrile can change back to 650mg scheduled as prior taking ID reconsult pending, however given improvement continuing current course Will f/u wound RN w/ duoderm for hopeful replacement of wound vac in AM on Friday and if successful will attempt to remove urinary catheter/attempt to utilize condom cath but wanting to prevent contamination of wound at present time. Can touch base w/ surgery pending exam prior to wound vac placement if needing for debridement Updated mother Sharlene in room 10/10, again 10/11 by phone 10/12 - WBC 6.2k, VS improved. Repeat blood cultures NGTD, remaining afebrile since above. - NS x1L @ 50cc/hr ordered given elevated BUN/Cr - Continues on Cefepime IV for bacteremia (Dapto for sacrum below, increased for VRE coverage) - Wound RN to attempt wound vac placement, consider removing urinary catheter in AM and using condom catheter as requested by mother/utilized in past. Can attempt/monitor for retention (2) Decubitus ulcer of sacral region, stage 4: Plan: Present on admission. s/p debridement in the OR by Dr Issa on 07/31/23. Wound vac placed on 08/01. Wound vac then changed to a pulsating irrigation wound vac on 08/21/23. Due to lack of improvement and worsening appearance of his ulcer he underwent repeat debridement in the OR by Dr Dorsey on 08/25/23. On 09/04 the wound vac was removed due to candidiasis (extensive) in sacral area. Treated with fluconazole. Wound VAC was replaced on 09/18, draining purulent material. Continue wound care. Appreciate general surgery and wound care assistance. Wound care removed wound VAC over the weekend, replaced 10/05 10/06 -Remained off abx, afebrile. Wound vac in place Meeting w/ family and providers 10/05, paperwork completed, original back to patients room. CM following for ongoing placement concerns/issues 10/07-10/11 -- patient wound eval w/ wound care on 10/07 w/ increased blistering and removal. Added Dapto as above for coverage, increased to 8mg/kg given VRE for SSTI and stable improvement but ordered special duoderm by wound care over weekend due to potential allergy to acrylic in the prior dressing. Did add Diflucan and continued (started 10/09) Attempting for repeat placement wound vac today w/ duoderm. If unsuccessful will need to reach back out to surgery in AM pending for consideration for debridement. (3) Chronic osteomyelitis of sacrum: Plan: intra-op culture from 07/31 with MSSA, pseudomonas, providencia, and anaerobes. Sacral bone biopsy 08/24 with VRE and 2-week course of linezolid completed as of end 09/12. Per infectious disease, patient has completed 6 weeks of IV abx with concurrent wound vac. Mainly pip-tazo and cefepime (metronidazole added ) from 07/31/23 09/10/23 Procal elevation as above, 4.59 Continue Cefepime/Dapto for now, dapto increased dosing as above Wound RN following (see pic 10/09, slightly worse - abx for dual coverage as above). Ordered special duoderm, hopefully able to replace wound vac once received on Friday.-monitor for need for surgery eval this weekend (did notify Dr Jameel Vela once wound vac removed and notified on-call in case needed), can recall (4) Hospital acquired PNA: Plan: LLL -- resolved. Due to pseudomonas infection. Chronology of events: 08/01 - cxr with worsening infiltrates on left 08/03 - collapse LLL 08/03 - bronchoscopy by Dr Blancas with mucous plugging found in the left-sided bronchial tree s/p removal; 08/07 - s/p bronch by Dr Lock - minimal secretions LLL, no plugs; thick secretions in trach, however 08/09 - bronch cx - pseudomonas, intermediate resistance 08/09 - changed zosyn to cefepime 08/22 - cxr - ongoing LLL infiltrates/effusion - similar to previous imaging 09/17- cxr shows improved aeration within the left lung base trach routinely changed to cuffless by Dr. Street 09/09 Repeat chest x-ray done on 09/17 showed improved aeration within the left lung base. A 1 month follow-up is recommended (10/18 if continues inpatient) 10/12 -- improvement in CXR on 10/11, continues on mucomyst. Abx as outlined above should also cover SHOULD BE CONTINUE ON MUCOMYST, high risk for mucus plugging (5) Candidiasis: Plan: multiple locations - back/buttocks, groin, R axillary region. Cont anti-yeast topical powders. Completed 7d Diflucan 09/11 with significant improvement RESUMED DIFLUCAN FOR FUNGAL APPEARANCE ON EXAM, started 10/09 (6) Severe protein-calorie malnutrition: Plan: Chronic. Improving slowly. Peg tube replaced 09/25 , tolerating Continue current nutrition recommendations (7) History of DVT (deep vein thrombosis): Plan: RLE DVT discovered 11/2022. Had been on Eliquis 5mg BID since 12/12/22. Eliquis dosage has been reduced to 2.5mg BID (8) History of nontraumatic rupture of cerebral aneurysm: Plan: Patient is nonverbal at baseline with chronic contractures in all 4 extremities, has eye opening, roving eye movements, grimacing, sleep-wake cycles. Functional quadriplegia. CT head shows encephalomalacia and good shunt placement . He unfortunately suffered a ruptured brain aneurysm and SAH 08/2022. Status post craniotomy and evacuation of hematoma. 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 He has a ventriculoperitoneal shunt in place. Known resultant severe autonomic dysfunction / paroxysmal sympathetic hyperactivity / autonomic storm which is controlled on medications and has the potential to be confused with sepsis. Continue current medical management (9) Autonomic dysfunction: Plan: Stable. Continue dantrolene and bromocriptine. Continue gabapentin and baclofen for spasticity (10) Cardiomyopathy: Plan: last echo 07/11/23 - low normal EF 50-55%. No acute current problems. Continue beta-joon therapy. (11) Tracheostomy status: Plan: cont local trach care. On 09/09, trach changed to 8.0 uncuffed tracheostomy tube by Dr. Street (12) Tachycardia: Plan: maintaining low 100s throughout the day 09/29 however AM metoprolol was held , no signs of new infection on exam ABOVE, suspect elevated HR 10/09 2nd to sepsis. IVF/abx as outlined and improvement in HR/BP and will monitor Plan Placement pending. Family meeting held 09/30 . Family updated at bedside 10/05, form completed and provided in room 10/06. Updated mother in room 10/10, by phone 10/11 WOUND VAC ATTEMPT TODAY, CONSIDER dc URINE CATHETER IN AM. Continue ABX for bacteremia/ID re-consulted. Possible need to reach out to surgery pending ability to replace wound vac Recent history (resolved issues): #Bacteremias 06/2023, completed treatment and resolved -- sources included: SSTI sacral decubitus ulcer, Group C strep bacteremia - source thought 2nd to sacral wound, Coag neg staph bacteremia - contaminant vs bacteremia. Corynebacterium bacteremia --> as above, now with bacteremia , abx as outlined/ID consulted lewis exchanged (coude in place) 10/07 -- UTI as above, consider condom cath pending wound vac trach changed 09/09, peg tube changed 09/25 , wound vac 10/05 ( NOW OFF) Most recent CM note 10/07 noting [facility] unable to accept but messages out to [facility] (accepts trachs) and [facility] to see if accepts trachs #Bilateral calf wounds, have healed. Ear wound, has healed. #Pneumatosis coli seen on CT abdomen mid Jun 2023. Evaluated by General surgery last admission. since no surgical abdomen/peritonitis/symptoms no Rx recommended during that admission etiology of the CT findings was uncertain. abdominal exam remains benign / soft day-to-day, tolerates TF well. # transaminitis - resolved Admission and Anticipated Discharge Date Admission Date: July 18, 2023 Subjective Evaluated this morning, appearing stable. WBC wnl Did add back gentle IVF for maintainable, copious urine output. Remains on abx. Wound RN to attempt replacement wound vac today, if successful/no issues will attempt urinary catheter removal in AM and utilization of condom cath. ID consult pending, repeat blood cultures remain negative, has been afebrile overnight. Soft BM yesterday morning, moderate.Additional overnight per nursing x1. Breathing/lung exam stable, no need for suctioning at present. Remains on mucomyst. Physical Exam Physical Exam: General: 33yo chronically ill appearing male laying in bed, appears continued improvement/stable VSS today HEENT: R decreased drainage/no significant puffiness, trach dependent, suctioned in room Resp: less mucus secretion, IMPROVEMENT in L base crackles, no significant wheezing, on trach collar baseline CV: RRR, no significant m/r/g, no pitting edema GI: soft, non distended, feeing tube in place, no drainage Extremities:no edema or clubbing, flexion contractures present . Neuro: non responsive, skull defect from prior craniotomy Skin: sacral ulcer appearing stable but flattened edges (see prior wound picture, no necrotic tissue at present) -- hopeful wound vac placement today but remaining off at present fungal appearance appears IMPROVED/stable : coude catheter with copious yellow/clear urine draining Results & Data Results & Data Vital Signs (Past 12 Hours) Vital Signs Temp Pulse Pulse Resp BP BP Pulse Ox 10/13/23 07:23 36.9 C 84 20 110/73 10/12/23 21:04 36.9 C 72 16 93/61 L 99 O2 Del Method O2 Flow Rate 10/13/23 07:23 Trach Collar 7 10/12/23 21:04 Trach Collar Laboratory Results 10/13/23 Range/Units 06:55 WBC 6.25 (4.8-10.8) K/ul RBC 3.23 L (4.70-6.10) M/uL Hgb 9.6 L (14.0-18.0) g/dl Hct 30.9 L (42.0-52.0) % MCV 95.7 (80.0-100.0) fL MCH 29.7 (25.0-34.0) pg MCHC 31.1 L (32.0-36.0) g/dL RDW Std Deviation 51.8 H (36.4-46.3) fL RDW Coeff of Dario 14.7 H (11.5-14.5) % Plt Count 266 (130-400) K/uL MPV 11.5 (9.4-12.4) fL Immature Gran % (Auto) 0.5 % Neut % (Auto) 71.5 % Lymph % (Auto) 16.0 % [place] % (Auto) 6.9 % Eos % (Auto) 4.5 % Baso % (Auto) 0.6 % Neut # (Auto) 4.47 (1.40-6.50) K/uL Lymph # (Auto) 1.00 L (1.20-3.40) K/uL [place] # (Auto) 0.43 (0.11-0.59) K/uL Eos # (Auto) 0.28 (0.00-0.50) K/uL Baso # (Auto) 0.04 (0.00-0.20) K/uL Immature Gran # (Auto) 0.03 (0.01-0.20) K/uL Sodium 141 (136-145) mmol/L Potassium 4.4 (3.5-5.1) mmol/L Chloride 103 (98-107) mmol/L Carbon Dioxide 30 (21-32) mmol/L Anion Gap 8 (3-11) BUN 26 H (6-23) mg/dl Creatinine 0.32 L (0.6-1.4) mg/dl Est Cr Clr Drug Dosing 256.4 ml/min Est GFR ( Amer) > 150.0 ml/min Est GFR (Non-Af Amer) > 150.0 ml/min BUN/Creatinine Ratio 81.3 H (10-20) Glucose 123 H (70-99(Fasting)) mg/dl Calcium 9.6 (8.6-10.3) mg/dl Magnesium 2.0 (1.7-2.4) mg/dl Total Bilirubin 0.3 (0.2-1.0) mg/dl AST 9 L (13-39) U/L ALT 9 (7-52) U/L Alkaline Phosphatase 58 (34-104) U/L Total Protein 7.5 (6.0-8.3) gm/dl Albumin 3.7 (3.4-5.0) gm/dl Globulin 3.8 (2.5-4.0) gm/dl Albumin/Globulin Ratio 1.0 (0.9-2) Procalcitonin 1.06 H (0-0.5) ng/ml PG Care Time/CCT Total # of Minutes Spent Total Time Spent with Patient: Total time spent is greater than 50% in coordination of care (as documented) at patient's floor/unit and/or counseling patient: Coding Level of Care Code 67940 SUB INP/OBS CARE 3/50MIN Diagnoses Bacteremia R78.81 Decubitus ulcer of sacral region, stage 4 L89.154 Chronic osteomyelitis of sacrum M86.68 Hospital acquired PNA J18.9; Y95 Candidiasis B37.9 Severe protein-calorie malnutrition E43 History of DVT (deep vein thrombosis) Z86.718 History of nontraumatic rupture of cerebral aneurysm Z86.79 Autonomic dysfunction G90.9 Cardiomyopathy I42.9 Tracheostomy status Z93.0 Tachycardia R00.0
[2023-10-13] MEDS: SODIUM CHLORIDE 0.9% 1,000 ML IV SCH (08:54)
--- NOTE | 2023-10-13 15:41 | Infectious Disease Progress Nt ---
Date of Service October 13, 2023 Assessment & Plan (1) Chronic osteomyelitis of sacrum: (2) G tube feedings: (3) Pseudomonas aeruginosa infection: (4) Hospital acquired PNA: (5) Candidiasis: (6) Bacteremia: Plan 32yo M with h/o ruptured cerebral aneurysm s/p craniotomy/hematoma evacuation during hospitalization from Aug - Feb 2023, [employer] shunt, s/p trach and PEG, nonverbal, autonomic dysfunction, stave IV sacral pressure ulcer cardiomyopathy, unstageable pressure ulcer of calf who was readmitted on 07/18 after being sent back from [facility] due to no bed availability. He was recently admitted 07/0807/17/23 at [facility] (BCx + Group C Strep and CoNS, 07/09 BCx + CoNS and Coryn ebacterium, worsening sacral wound SSTI, treated with a 10-day course of vancomycin + meropenem->pip-tazo (intended EOT 07/19/23). On 07/18 Patient was readmitted d/t lack of caregiver support; 07/18 BCx + CoNS (non-lugdunensis) felt likely to be a contaminant and vancomycin was stopped on 07/25. Surgery was consulted due to c/f worsening decubitus ulcer (was off abx for several days). S/p debridement of sacral ulcer on 07/31 with exposed tip of coccyx indicative of sacral osteomyelitis, OR cx + Providencia stuartii, MSSA, PsA, mixed anaerobes. On 08/06, wound care confirmed that there is now healing tissue over the exposed bone. Hospital course also c/b post-surgical fever and hypoxemic respiratory failure with CXR on 08/01 showing interval development of left and mid-lower lung ASD. CXR 08/03 showing LLL collapse possibly due to mucous plugging. S/p bronchoscopy on 08/03 with cx growing PsA, s/p bronchoscopy on 08/07 with removal of mucous plugging. ID on 08/07 noted the sacral wound had achieved wound coverage of bone and planned for treating sacral OM with 6 weeks of IV zosyn. Course notable for bronch cultures from 08/07 with PsA intermediate sensi to zosyn so abx changed to cefepime on 08/09. Note he has had diarrhea, C diff negative, getting cholestyramine, rectal tube was removed 08/22. ID reconsulted on given concerns for worsening sacral wound. Flagyl was added to cefepime given possible c/f anaerobes not being covered. S/p OR 08/24 and underwent debridement, cx growing VRE faecium. Cefepime then eventually changed to linezolid, which were completed on 09/12. CXRs were improving. Course further c/b rising WBC on 10/09 to 20.3 along with fevers. BP stable. CXR on 10/09 with left basilar consolidation and small effusion. He was started on cefepime and daptomycin. Fluconazole was also added for cutaneous candidiasis (back, buttocks, groin, axilla). ID was consulted 10/09, unfortunately, doesnt seem like patient was seen at that time. For Pseudomonas bacteremia, source possibly urine though only 6-10 WBC on UA. CXR mentioned some left basilar consolidation, but not very significant on my review. He has been also placed on daptomycin. Reviewing the images of the sacrum, it doesnt appear to be significantly changed, but if wound care did have concerns, then ok to cover for a short course (ie 5 days). Ok to continue short course of fluconazole for candidiasis. # Pseudomonas bacteremia # Sacral decubitus ulcer with osteomyelitis s/p long courses of abx (completed 09/12) # Sacral cx 07/31 with PsA, P stuartii, MSSA, anaerobes, VRE # Pneumonia / PsA s/p treatment # QTc 412 - continue cefepime for a course of 14 days for Pseudomonas bacteremia (start 10/11 assuming BCx remain neg) - would stop daptomycin tomorrow (5d total for ?SSTI if present) - ok to continue fluconazole, I will come back to assess for the intertrigo tomorrow if present ID will continue to follow. If questions or concerns, contact Infectious Disease Call Center . Nohemi Gifford MD [facility], Division of Infectious Diseases [facility]: [phone] Admission and Anticipated Discharge Date Admission Date: July 18, 2023 Subjective Subsequent visit was provided via telemedicine using two-way real-time interactive telecommunication between the patient and the telemedicine provider. For the duration of the visit, the provider was performing the assessment from a different facility than the patient. This includesuse of bluetooth stethoscope forauscultationperformed by the telepresenter that the telemedicine provider can hear if described in the physical exam. Local Area Network Administrator contact information: Please call [facility] Call Center . (Phone Number For Physician Use Only) After establishing a telemedicine visit, patient was: Patient was verified with two unique identifiers, Patient/authorized rep acknowledged consent and understanding and Gave permission to continue telehealth session Time Spent with Patient: Subsequent => 55 min ID reconsulted for sepsis. He is nonverbal at baseline. Per RN, he had some increased secretions a few days ago. Wound vac is to be back on today. Foely was changed a few days ago. Secretions are clear. Physical Exam Physical Exam: General: nonverbal, no acute distress HEENT: NC/AT, EOMI, mmm Neck: supple Lungs: respirations non-labored Heart: nl peripheral perfusion Abdomen: soft, NT/ND Ext: no LE edema Skin: images of sacrum reviewd Results & Data Vital Signs (Past 12 Hours) Vital Signs Temp Pulse Pulse Resp BP BP Pulse Ox 10/13/23 08:44 80 104/70 10/13/23 07:45 16 97 10/13/23 07:45 10/13/23 07:23 36.9 C 84 20 110/73 O2 Del Method O2 Flow Rate FiO2 10/13/23 08:44 10/13/23 07:45 Trach Collar 28 10/13/23 07:45 Trach Collar 7 10/13/23 07:23 Trach Collar 7
[2023-10-14 06:56] LABS: Basophils # (auto) 0.05 K/uL (0.00-0.20); Basophils % (auto) 0.9 %; Eosinophils # (auto) 0.34 K/uL (0.00-0.50); Eosinophils % (auto) 6.3 %; Hematocrit (blood only) 31.2 % (42.0-52.0); Hemoglobin 9.8 g/dl (14.0-18.0); Immature Granulocytes # (auto) 0.07 K/uL (0.01-0.20); Immature Granulocytes % (auto) 1.3 %; Lymphocytes # (auto) 1.13 K/uL (1.20-3.40); Lymphocytes % (auto) 20.8 %; Mean Corpuscular Hgb Conc 31.4 g/dL (32.0-36.0); Mean Corpuscular Volume 95.4 fL (80.0-100.0); Mean Platelet Volume 11.7 fL (9.4-12.4); Monocytes # (auto) 0.39 K/uL (0.11-0.59); Monocytes % (auto) 7.2 %; Neutrophils # (auto) 3.45 K/uL (1.40-6.50); Neutrophils % (auto) 63.5 %; Platelet Count 283 K/uL (130-400); RDW Coefficient of Variation 14.7 % (11.5-14.5); RDW Standard Deviation 50.5 fL (36.4-46.3); Red Blood Count 3.27 M/uL (4.70-6.10); White Blood Count 5.43 K/ul (4.8-10.8)
[2023-10-14 07:11] LABS: Anion Gap 8 (3-11); BUN Creatinine Ratio 83.3 (10-20); Blood Urea Nitrogen 30 mg/dl (6-23); Calcium 9.7 mg/dl (8.6-10.3); Carbon Dioxide 29 mmol/L (21-32); Chloride 103 mmol/L (98-107); Creatinine Clr Calc Pharmacy 237.8 ml/min; Est GFR (African American) > 150.0 ml/min; Est GFR (Non-African American) > 150.0 ml/min; Glucose 135 mg/dl (70-99(Fasting)); Potassium 4.2 mmol/L (3.5-5.1); Sodium 140 mmol/L (136-145)
--- NOTE | 2023-10-14 18:36 | Infectious Disease Progress Nt ---
Date of Service October 14, 2023 Assessment & Plan (1) Chronic osteomyelitis of sacrum: (2) G tube feedings: (3) Pseudomonas aeruginosa infection: (4) Hospital acquired PNA: (5) Candidiasis: (6) Bacteremia: Plan 32yo M with h/o ruptured cerebral aneurysm s/p craniotomy/hematoma evacuation during hospitalization from Aug - Feb 2023, [employer] shunt, s/p trach and PEG, nonverbal, autonomic dysfunction, stave IV sacral pressure ulcer cardiomyopathy, unstageable pressure ulcer of calf who was readmitted on 07/18 after being sent back from [facility] due to no bed availability. He was recently admitted 07/0807/17/23 at [facility] (BCx + Group C Strep and CoNS, 07/09 BCx + CoNS and Coryn ebacterium, worsening sacral wound SSTI, treated with a 10-day course of vancomycin + meropenem->pip-tazo (intended EOT 07/19/23). On 07/18 Patient was readmitted d/t lack of caregiver support; 07/18 BCx + CoNS (non-lugdunensis) felt likely to be a contaminant and vancomycin was stopped on 07/25. Surgery was consulted due to c/f worsening decubitus ulcer (was off abx for several days). S/p debridement of sacral ulcer on 07/31 with exposed tip of coccyx indicative of sacral osteomyelitis, OR cx + Providencia stuartii, MSSA, PsA, mixed anaerobes. On 08/06, wound care confirmed that there is now healing tissue over the exposed bone. Hospital course also c/b post-surgical fever and hypoxemic respiratory failure with CXR on 08/01 showing interval development of left and mid-lower lung ASD. CXR 08/03 showing LLL collapse possibly due to mucous plugging. S/p bronchoscopy on 08/03 with cx growing PsA, s/p bronchoscopy on 08/07 with removal of mucous plugging. ID on 08/07 noted the sacral wound had achieved wound coverage of bone and planned for treating sacral OM with 6 weeks of IV zosyn. Course notable for bronch cultures from 08/07 with PsA intermediate sensi to zosyn so abx changed to cefepime on 08/09. Note he has had diarrhea, C diff negative, getting cholestyramine, rectal tube was removed 08/22. ID reconsulted on given concerns for worsening sacral wound. Flagyl was added to cefepime given possible c/f anaerobes not being covered. S/p OR 08/24 and underwent debridement, cx growing VRE faecium. Cefepime then eventually changed to linezolid, which were completed on 09/12. CXRs were improving. Course further c/b rising WBC on 10/09 to 20.3 along with fevers. BP stable. CXR on 10/09 with left basilar consolidation and small effusion. He was started on cefepime and daptomycin. Fluconazole was also added for cutaneous candidiasis (back, buttocks, groin, axilla). ID was consulted 10/09, unfortunately, doesnt seem like patient was seen at that time. For Pseudomonas bacteremia, source possibly urine though only 6-10 WBC on UA. CXR mentioned some left basilar consolidation, but not very significant on my review. He will need to complete a 2 week course for bacteremia. His sacrum appears well, daptomycin has now been stopped, which I agree with. For his intertrigo, there is minimal erythema in groin and right axilla, some moderate erythema in left axilla. I would favor using topical regimens and minimizing moisture/friction in the involved area. He is on miconazole cream which is adequate. Oral antifungals should be reserved for if he fails to respond to conservative measures and topical treatment. Given appearance of the affected areas today, I would favor stopping fluconazole and continuing topical therapy. If he does require fluconazole later due to refractory intertrigo, then preference of regimen is 150mg once weekly x 4 weeks. # Pseudomonas bacteremia # Sacral decubitus ulcer with osteomyelitis s/p long courses of abx (completed 09/12) # Sacral cx 2/ with PsA, P stuartii, MSSA, anaerobes, VRE # Pneumonia 2/2 PsA s/p treatment # QTc 412 - continue cefepime for a course of 14 days for Pseudomonas bacteremia (start 10/11, eot 10/24) - daptomycin stopped - I will stop fluconazole and prefer topical therapy for possible minimal intertrigo (already ordered for miconazole, encourage minimizing moisture) - if needed in the future where he has intertrigo refractory to topical therapy, would utilize fluconazole 150mg PO once weekly for 4 weeks (dose reduce based on renal function if needed) ID will discontinue active follow up at this time. Please do not hesitate to reconsult the Infectious Diseases service as needed. If ID reconsult is needed in the future, please page ID call center and please tell talk to the provider and let them know if patient needs a consult with note. Nohemi Gifford MD [facility], Division of Infectious Diseases [facility]: [phone] Admission and Anticipated Discharge Date Admission Date: July 18, 2023 Subjective Subsequent visit was provided via telemedicine using two-way real-time interactive telecommunication between the patient and the telemedicine provider. For the duration of the visit, the provider was performing the assessment from a different facility than the patient. This includesuse of bluetooth stethoscope forauscultationperformed by the telepresenter that the telemedicine provider can hear if described in the physical exam. Purchasing Intern contact information: Please call ID Connect Call Center . (Phone Number For Physician Use Only) After establishing a telemedicine visit, patient was: Patient was verified with two unique identifiers, Patient/authorized rep acknowledged consent and understanding and Gave permission to continue telehealth session Time Spent with Patient: Subsequent => 55 min Patient nonverbal. Physical Exam Physical Exam: General: nonverbal, no acute distress HEENT: NC/AT, EOMI, mmm Neck: supple Lungs: respirations non-labored Heart: nl peripheral perfusion Abdomen: soft, NT/ND Ext: no LE edema Skin: erythema over left axilla, minimal over scrotum, sacrum ulcer appears well without draiange Results & Data Vital Signs (Past 12 Hours) Vital Signs Temp Pulse Resp BP Pulse Ox O2 Del Method O2 Flow Rate 10/14/23 14:26 37.1 C 91 H 16 100/69 97 Room Air 10/14/23 09:21 Trach Collar 6 10/14/23 07:50 80 18 95 Trach Collar 6 10/14/23 07:04 36.7 C 91 H 16 104/70 96 Trach Collar FiO2 10/14/23 14:26 10/14/23 09:21 10/14/23 07:50 28 10/14/23 07:04
--- NOTE | 2023-10-14 19:57 | Hospitalist Progress Note ---
Date of Service October 14, 2023 Assessment & Plan (1) Bacteremia due to Pseudomonas: Plan: source - likely the urine can't rule out his sacral wound but unlikely can't rule out the left lung but unlikely (no significant change in O2 requirement, no significant change in his CXR, etc) repeat blood cx's 10/11 neg to date appreciate ID consult/recs Plan: continue cefepime for a course of 14 days start date 10/11 (date of first negative blood culture) end date 10/24 (2) Catheter-associated urinary tract infection: Plan: 2nd pseudomonas lewis exchanged on 10/07 (coude catheter by report) unfortunately this was before his UTI was discovered would exchange the lewis again later in his abx course there has been talk about him transitioning to condom cath but he has neurogenic bladder; attempts to allow condom cath unsuccessful; met with significant urinary retention (3) Decubitus ulcer of sacral region, stage 4: Plan: Present on admission. - s/p debridement in the OR by Dr Issa on 07/31/23. - Wound vac placed on 08/01. Wound vac then changed to a pulsating irrigation woundvac on 08/21/23. - Due to lack of improvement and worsening appearance of his ulcer he underwent repeat debridement in the OR by Dr Dorsey on 08/25/23. - on 09/04 the woundvac was removed due to candidiasis (extensive) in sacral area. Treated with fluconazole. Cont current woundvac and defer any other recs regarding such to Sherie Jesus and the woundcare team there is concern he is sensitive/having dermatitis due to the adherent material this is to be changed this week to try and avoid ongoing dermatitis (different material to be used per Sherie) stop daptomycin - no gross purulence of the wound according to Sherie Jesus doubt active infection of wound (4) Chronic osteomyelitis of sacrum: Plan: intra-op culture from 07/31 with MSSA, pseudomonas, providencia, and anaerobes. Sacral bone biopsy 08/24 with VRE and 2-week course of linezolid completed 09/13/23. no dedicated abx since then for the sacrum (daptomycin d/c today - see #3). (5) Hospital acquired PNA: Plan: LLL -- resolved. Due to pseudomonas infection. Chronology of events: 08/01 - cxr with worsening infiltrates on left 08/03 - collapse LLL 08/03 - bronchoscopy by Dr Blancas with mucous plugging found in the left-sided bronchial tree s/p removal; 08/07 - s/p bronch by Dr Lock - minimal secretions LLL, no plugs; thick secretions in trach, however 08/09 - bronch cx - pseudomonas, intermediate resistance 08/09 - changed zosyn to cefepime 08/22 - cxr - ongoing LLL infiltrates/effusion - similar to previous imaging 09/17- cxr shows improved aeration within the left lung base trach changed to cuffless by Dr. Street 09/09 no issues at this time stable O2 sats on 6 L O2 stable serial CXRs (6) Severe protein-calorie malnutrition: Plan: Chronic but improved. Continue current nutrition recommendations Peg tube replaced 09/25 Most recent albumin >3.5 Weight is stable (7) History of DVT (deep vein thrombosis): Plan: RLE DVT discovered 11/2022. Had been on Eliquis 5mg BID since 12/12/22. Eliquis dosage has been reduced to 2.5mg BID (8) History of nontraumatic rupture of cerebral aneurysm: Plan: Patient is nonverbal at baseline with chronic contractures in all 4 extremities, has eye opening, roving eye movements, grimacing, sleep-wake cycles. Functional quadriplegia. CT head shows encephalomalacia and good shunt placement . He unfortunately suffered a ruptured brain aneurysm and SAH 08/2022. Status post craniotomy and evacuation of hematoma. 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 He has a ventriculoperitoneal shunt in place. Known resultant severe autonomic dysfunction / paroxysmal sympathetic hyperactivity / autonomic storm which is controlled on medications and has the potential to be confused with sepsis. Continue current medical management (9) Autonomic dysfunction: Plan: Stable. Continue dantrolene and bromocriptine. Continue gabapentin and baclofen for spasticity, Continue scop patch and tylenol scheduled. (10) Cardiomyopathy: Plan: last echo 07/11/23 - low normal EF 50-55%. No acute current problems. Continue metoprolol 12.5mg BID. (11) Tracheostomy status: Plan: cont local trach care. 09/09 - trach changed to 8.0 uncuffed tracheostomy tube by Dr. Street (12) Candidiasis: Plan: multiple locations - back/buttocks, groin, R axillary region. Cont anti-yeast topical powders. Completed 7d diflucan 09/11 with significant improvement Was placed back on diflucan again recently; ID recommending against such unless absolutely necessary Diflucan stopped by ID Plan SW note 10/08/23 - [place] [facility] unable to accept patient messages out to [employer] [facility] (accepts trachs) and [facility] Maintenance issues: lewis changed 10/07 trach changed 09/09 peg tube changed 09/25 Admission and Anticipated Discharge Date Admission Date: July 18, 2023 Subjective no issues overnight tolerating tube feedings +stools I spoke with Sherie Jesus from wound care - suspicion from the wound care team and [employer] that patient is having contact dermatitis/sensitivity to the adherent a different adherent has been ordered and will be placed this week no gross purulence from the wound per Ms Jesus Review of Systems Review of Systems: Unobtainable due to cognitive status (nonverbal) Physical Exam Physical Exam: gen - NAD, eyes open head - deformity right side from prior craniotomy unchanged L ear - ulcer on pinnae healed neck - no JVD; trach in place - clean heart - RRR, s1 s2, no murmur lungs - CTA b/l; no rales or wheeze abd - soft NT BS+; PEG tube site clean; mildly distended ext - no edema b/l, pulses 2+ b/l; contractures skin - right lateral thigh with shamika vs tinea lesions neuro - contractures all extremities; generalized muscle wasting present Results & Data Results & Data Vital Signs (Past 12 Hours) Vital Signs Temp Pulse Resp BP Pulse Ox O2 Del Method O2 Flow Rate 10/14/23 19:37 82 18 98 Trach Collar 6 10/14/23 14:26 37.1 C 91 H 16 100/69 97 Room Air 10/14/23 09:21 Trach Collar 6 FiO2 10/14/23 19:37 28 10/14/23 14:26 10/14/23 09:21 Laboratory Results Laboratory Results - last 24 hr 10/14/23 06:21 WBC 5.43 RBC 3.27 L Hgb 9.8 L Hct 31.2 L MCV 95.4 MCH 30.0 MCHC 31.4 L RDW Std Deviation 50.5 H RDW Coeff of Dario 14.7 H Plt Count 283 MPV 11.7 Immature Gran % (Auto) 1.3 Neut % (Auto) 63.5 Lymph % (Auto) 20.8 [place] % (Auto) 7.2 Eos % (Auto) 6.3 Baso % (Auto) 0.9 Neut # (Auto) 3.45 Lymph # (Auto) 1.13 L [place] # (Auto) 0.39 Eos # (Auto) 0.34 Baso # (Auto) 0.05 Immature Gran # (Auto) 0.07 Sodium 140 Potassium 4.2 Chloride 103 Carbon Dioxide 29 Anion Gap 8 BUN 30 H Creatinine 0.36 L Est Cr Clr Drug Dosing 237.8 Est GFR ( Amer) > 150.0 Est GFR (Non-Af Amer) > 150.0 BUN/Creatinine Ratio 83.3 H Glucose 135 H Calcium 9.7 Diagnostic Findings 10/09 blood cx's - pseudomonas 10/11 blood cx's - negative to date PG Care Time/CCT Total # of Minutes Spent Total Time Spent with Patient: Total time spent is greater than 50% in coordination of care (as documented) at patient's floor/unit and/or counseling patient: Coding Level of Care Code 49237 SUB INP/OBS CARE 235MIN Diagnoses Bacteremia due to Pseudomonas R78.81; B96.5 Catheter-associated urinary tract infection T83.511A; N39.0 Decubitus ulcer of sacral region, stage 4 L89.154 Chronic osteomyelitis of sacrum M86.68 Hospital acquired PNA J18.9; Y95 Severe protein-calorie malnutrition E43 History of DVT (deep vein thrombosis) Z86.718 History of nontraumatic rupture of cerebral aneurysm Z86.79 Autonomic dysfunction G90.9 Cardiomyopathy I42.9 Tracheostomy status Z93.0 Candidiasis B37.9
[2023-10-15] MEDS: ACETAMINOPHEN SUSP 325 MG/10.15 ML UDC PEG SCH (05:58)
--- NOTE | 2023-10-15 21:12 | Hospitalist Progress Note ---
Date of Service October 15, 2023 Assessment & Plan (1) Bacteremia due to Pseudomonas: Plan: source - likely the urine can't rule out his sacral wound but unlikely - wound relatively clean at this time can't rule out the left lung but unlikely (no significant change in O2 requirement, no significant change in his recent CXRs, etc) repeat blood cx's 10/11 neg to date appreciate ID consult/recs Plan: continue cefepime for a course of 14 days start date 10/11 (date of first negative blood culture) end date 10/24 (2) Catheter-associated urinary tract infection: Plan: 2nd pseudomonas lewis exchanged on 10/07 (coude catheter by report) unfortunately this was before his UTI was discovered would exchange the lewis again later in his abx course there has been talk about him transitioning to condom cath but he has neurogenic bladder; attempts to allow condom cath unsuccessful; met with significant urinary retention (3) Decubitus ulcer of sacral region, stage 4: Plan: Present on admission. - s/p debridement in the OR by Dr Issa on 07/31/23. - Wound vac placed on 08/01. Wound vac then changed to a pulsating irrigation woundvac on 08/21/23. - Due to lack of improvement and worsening appearance of his ulcer he underwent repeat debridement in the OR by Dr Dorsey on 08/25/23. - on 09/04 the woundvac was removed due to candidiasis (extensive) in sacral area. Treated with fluconazole. Cont current woundvac and defer any other recs regarding such to Sherie Jesus and the woundcare team there is concern he is sensitive/having dermatitis due to the adherent material this is to be changed this week to try and avoid ongoing dermatitis (different material to be used per Sherie) (4) Chronic osteomyelitis of sacrum: Plan: intra-op culture from 07/31 with MSSA, pseudomonas, providencia, and anaerobes. Sacral bone biopsy 08/24 with VRE and 2-week course of linezolid completed 09/13/23. no dedicated abx since then for the sacrum (5) Hospital acquired PNA: Plan: LLL -- resolved. Due to pseudomonas infection. Chronology of events: 08/01 - cxr with worsening infiltrates on left 08/03 - collapse LLL 08/03 - bronchoscopy by Dr Blancas with mucous plugging found in the left-sided bronchial tree s/p removal; 08/07 - s/p bronch by Dr Lock - minimal secretions LLL, no plugs; thick secretions in trach, however 08/09 - bronch cx - pseudomonas, intermediate resistance 08/09 - changed zosyn to cefepime 08/22 - cxr - ongoing LLL infiltrates/effusion - similar to previous imaging 09/17- cxr shows improved aeration within the left lung base trach changed to cuffless by Dr. Street 09/09 no issues at this time stable O2 sats on 6 L O2 stable serial CXRs (6) Severe protein-calorie malnutrition: Plan: Chronic but improved. Continue current nutrition recommendations Peg tube replaced 09/25 Most recent albumin >3.5 Weight is stable (7) History of DVT (deep vein thrombosis): Plan: RLE DVT discovered 11/2022. Had been on Eliquis 5mg BID since 12/12/22. Eliquis dosage has been reduced to 2.5mg BID (8) History of nontraumatic rupture of cerebral aneurysm: Plan: Patient is nonverbal at baseline with chronic contractures in all 4 extremities, has eye opening, roving eye movements, grimacing, sleep-wake cycles. Functional quadriplegia. CT head shows encephalomalacia and good shunt placement . He unfortunately suffered a ruptured brain aneurysm and SAH 08/2022. Status post craniotomy and evacuation of hematoma. 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 He has a ventriculoperitoneal shunt in place. Known resultant severe autonomic dysfunction / paroxysmal sympathetic hyperactivity / autonomic storm which is controlled on medications and has the potential to be confused with sepsis. Continue current medical management (9) Autonomic dysfunction: Plan: Stable. Continue dantrolene and bromocriptine. Continue gabapentin and baclofen for spasticity, Continue scop patch and tylenol scheduled. (10) Cardiomyopathy: Plan: last echo 07/11/23 - low normal EF 50-55%. No acute current problems. Continue metoprolol 12.5mg BID. (11) Tracheostomy status: Plan: cont local trach care. 09/09 - trach changed to 8.0 uncuffed tracheostomy tube by Dr. Street (12) Candidiasis: Plan: multiple locations - back/buttocks, groin, R axillary region. Cont anti-yeast topical powders. Completed 7d diflucan 09/11 with significant improvement Was placed back on diflucan again recently; ID recommending against such unless absolutely necessary Diflucan stopped by ID Plan SW note 10/08/23 - [place] unable to accept patient messages out to [facility] (accepts trachs) and [facility] Maintenance issues: lewis changed 10/07 - has active UTI - change in a few days trach changed 09/09 peg tube changed 09/25 Admission and Anticipated Discharge Date Admission Date: July 18, 2023 Subjective no issues overnight tolerating tube feedings woundvac exchanged today by wound care Review of Systems Review of Systems: Unobtainable due to cognitive status (nonverbal, vegetative state ) Physical Exam Physical Exam: gen - NAD, sleeping head - deformity right side from prior craniotomy unchanged neck - no JVD; trach in place - clean heart - RRR, s1 s2, no murmur lungs - CTA b/l; no rales or wheeze abd - soft NT BS+; PEG tube site clean; mildly distended like yesterday ext - no edema b/l, pulses 2+ b/l; contractures skin - right lateral thigh with shamika vs tinea lesions vs post-inflammatory hyperpigmentation neuro - contractures all extremities; generalized muscle wasting present Results & Data Results & Data Vital Signs (Past 12 Hours) Vital Signs Temp Pulse Resp BP Pulse Ox O2 Del Method O2 Flow Rate 10/15/23 19:56 81 16 97 Trach Collar 6 10/15/23 15:37 36.4 C L 87 16 119/75 100 Trach Collar FiO2 10/15/23 19:56 28 10/15/23 15:37 PG Care Time/CCT Total # of Minutes Spent Total Time Spent with Patient: Total time spent is greater than 50% in coordination of care (as documented) at patient's floor/unit and/or counseling patient: Coding Level of Care Code 15649 SUB INP/OBS CARE 07/17MIN Diagnoses Bacteremia due to Pseudomonas R78.81; B96.5 Catheter-associated urinary tract infection T83.511A; N39.0 Decubitus ulcer of sacral region, stage 4 L89.154 Chronic osteomyelitis of sacrum M86.68 Hospital acquired PNA J18.9; Y95 Severe protein-calorie malnutrition E43 History of DVT (deep vein thrombosis) Z86.718 History of nontraumatic rupture of cerebral aneurysm Z86.79 Autonomic dysfunction G90.9 Cardiomyopathy I42.9 Tracheostomy status Z93.0 Candidiasis B37.9
--- NOTE | 2023-10-16 20:33 | Hospitalist Progress Note ---
Date of Service October 16, 2023 Assessment & Plan (1) Bacteremia due to Pseudomonas: Plan: source - likely the urine can't rule out his sacral wound but unlikely - wound relatively clean at this time can't rule out the left lung but unlikely (no significant change in O2 requirement, no significant change in his recent CXRs, etc) repeat blood cx's 10/11 neg to date appreciate ID consult/recs Plan: continue cefepime for a course of 14 days start date 10/11 (date of first negative blood culture) end date 10/24 (2) Catheter-associated urinary tract infection: Plan: 2nd pseudomonas lewis exchanged on 10/07 (coude catheter by report) unfortunately this was before his UTI was discovered would exchange the lewis again later in his abx course there has been talk about him transitioning to condom cath but he has neurogenic bladder; attempts to allow condom cath earlier in the stay unsuccessful; this was met with significant urinary retention (3) Decubitus ulcer of sacral region, stage 4: Plan: Present on admission. - s/p debridement in the OR by Dr Issa on 07/31/23. - Wound vac placed on 08/01. Wound vac then changed to a pulsating irrigation woundvac on 08/21/23. - Due to lack of improvement and worsening appearance of his ulcer he underwent repeat debridement in the OR by Dr Dorsey on 08/25/23. - on 09/04 the woundvac was removed due to candidiasis (extensive) in sacral area. Treated with fluconazole. Cont current woundvac and defer any other recs regarding such to Sherie Jesus and the woundcare team there is concern he is sensitive/having dermatitis due to the adherent material this is to be changed this week to try and avoid ongoing dermatitis (different material to be used per Sherie) (4) Chronic osteomyelitis of sacrum: Plan: intra-op culture from 07/31 with MSSA, pseudomonas, providencia, and anaerobes. Sacral bone biopsy 08/24 with VRE and 2-week course of linezolid completed 09/13/23. no dedicated abx since then for the sacrum (5) Hospital acquired PNA: Plan: LLL -- resolved. Due to pseudomonas infection. Chronology of events: 08/01 - cxr with worsening infiltrates on left 08/03 - collapse LLL 08/03 - bronchoscopy by Dr Vilensky with mucous plugging found in the left-sided bronchial tree s/p removal; 08/07 - s/p bronch by Dr Lock - minimal secretions LLL, no plugs; thick secretions in trach, however 08/09 - bronch cx - pseudomonas, intermediate resistance 08/09 - changed zosyn to cefepime 08/22 - cxr - ongoing LLL infiltrates/effusion - similar to previous imaging 09/17- cxr shows improved aeration within the left lung base trach changed to cuffless by Dr. Street 09/09 no issues at this time stable O2 sats on 6 L O2 (6) Severe protein-calorie malnutrition: Plan: Chronic but improved. Continue current nutrition recommendations Peg tube replaced 09/25 Most recent albumin >3.5 Weight is stable (7) History of DVT (deep vein thrombosis): Plan: RLE DVT discovered 11/2022. Had been on Eliquis 5mg BID since 12/12/22. Eliquis dosage reduced to 2.5mg BID earlier in the stay (8) History of nontraumatic rupture of cerebral aneurysm: Plan: Patient is nonverbal at baseline with chronic contractures in all 4 extremities, has eye opening, roving eye movements, grimacing, sleep-wake cycles. Functional quadriplegia. CT head shows encephalomalacia and good shunt placement . He unfortunately suffered a ruptured brain aneurysm and SAH 08/2022. Status post craniotomy and evacuation of hematoma. 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 He has a ventriculoperitoneal shunt in place. Known resultant severe autonomic dysfunction / paroxysmal sympathetic hyperactivity / autonomic storm which is controlled on medications and has the potential to be confused with sepsis. Continue current medical management (9) Autonomic dysfunction: Plan: No recent issues. Continue dantrolene and bromocriptine. Continue gabapentin and baclofen for spasticity, Continue scop patch and tylenol scheduled. (10) Cardiomyopathy: Plan: last echo 07/11/23 - low normal EF 50-55%. No acute current problems. Continue metoprolol 12.5mg BID. (11) Tracheostomy status: Plan: cont local trach care. 09/09 - trach changed to 8.0 uncuffed tracheostomy tube by Dr. Street (12) Candidiasis: Plan: multiple locations - back/buttocks, groin, R axillary region. Cont anti-yeast topical powders. Completed 7d diflucan 09/11 with significant improvement Was placed back on diflucan again recently; ID recommending against such unless absolutely necessary Diflucan stopped by ID Plan SW note 10/08/23 - [facility] unable to accept patient messages out to [place] [facility] (accepts trachs) and [facility] Maintenance issues: lewis changed 10/07 - has active UTI - change in a few days trach changed 09/09 peg tube changed 09/25 Admission and Anticipated Discharge Date Admission Date: July 18, 2023 Subjective no events per staff no issues +stool today Review of Systems Review of Systems: Unobtainable due to cognitive status (nonverbal ) Physical Exam Physical Exam: gen - NAD, sleeping then had eyes open head - deformity right side from prior craniotomy neck - no JVD; trach in place - clean heart - RRR, s1 s2, no murmur lungs - CTA b/l but BS a little more course today than yesterday abd - soft NT BS+; PEG tube site clean; mildly distended but no worse than prior exam ext - no edema b/l, pulses 2+ b/l; contractures skin - right lateral thigh with shamika vs tinea lesions vs post-inflammatory hyperpigmentation neuro - contractures all extremities; generalized muscle wasting present Results & Data Results & Data Vital Signs (Past 12 Hours) Vital Signs Temp Pulse Resp BP Pulse Ox O2 Del Method O2 Flow Rate 10/16/23 15:37 36.7 C 78 16 110/74 100 Trach Collar 7 10/16/23 09:45 Trach Collar 6 PG Care Time/CCT Total # of Minutes Spent Total Time Spent with Patient: Total time spent is greater than 50% in coordination of care (as documented) at patient's floor/unit and/or counseling patient: Coding Level of Care Code 15929 SUB INP/OBS CARE 07/17MIN Diagnoses Bacteremia due to Pseudomonas R78.81; B96.5 Catheter-associated urinary tract infection T83.511A; N39.0 Decubitus ulcer of sacral region, stage 4 L89.154 Chronic osteomyelitis of sacrum M86.68 Hospital acquired PNA J18.9; Y95 Severe protein-calorie malnutrition E43 History of DVT (deep vein thrombosis) Z86.718 History of nontraumatic rupture of cerebral aneurysm Z86.79 Autonomic dysfunction G90.9 Cardiomyopathy I42.9 Tracheostomy status Z93.0 Candidiasis B37.9
[2023-10-17 09:27] LABS: Anion Gap 5 (3-11); Blood Urea Nitrogen 34 mg/dl (6-23); Calcium 9.2 mg/dl (8.6-10.3); Carbon Dioxide 32 mmol/L (21-32); Chloride 103 mmol/L (98-107); Creatinine Clr Calc Pharmacy 202.7 ml/min; Est GFR (African American) > 150.0 ml/min; Est GFR (Non-African American) > 150.0 ml/min; Glucose 105 mg/dl (70-99(Fasting)); Phosphorus 3.7 mg/dl (2.5-4.9); Potassium 4.2 mmol/L (3.5-5.1); Sodium 140 mmol/L (136-145)
--- NOTE | 2023-10-17 20:03 | Hospitalist Progress Note ---
Date of Service October 17, 2023 Assessment & Plan (1) Bacteremia due to Pseudomonas: Plan: source - likely the urine can't rule out his sacral wound but unlikely - wound relatively clean at this time (see wound care team documentation and scanned photos) can't rule out the left lung but highly unlikely (no significant change in O2 requirement, no significant change in his recent CXRs, no significant sputum changes, etc) repeat blood cx's 10/11 neg to date appreciate ID consult/recs Plan: continue cefepime for a course of 14 days start date 10/12/23 (date of first negative blood culture) end date 10/25/23 he tends to get diarrhea with broad-spectrum IV antibiotics - watch closely for such (2) Catheter-associated urinary tract infection: Plan: 2nd pseudomonas leiws exchanged on 10/07 (coude catheter by report) unfortunately this was before his UTI was discovered would exchange the lewis again later in his abx course - perhaps this weekend there has been talk about him transitioning to condom cath but he has neurogenic bladder; attempts to allow condom cath earlier in the stay unsuccessful; this was met with significant urinary retention (3) Decubitus ulcer of sacral region, stage 4: Plan: Present on admission. - s/p debridement in the OR by Dr Issa on 07/31/23. - Wound vac placed on 08/01. Wound vac then changed to a pulsating irrigation woundvac on 08/21/23. - Due to lack of improvement and worsening appearance of his ulcer he underwent repeat debridement in the OR by Dr Dorsey on 08/25/23. - on 09/04 the woundvac was removed due to candidiasis (extensive) in sacral area. Treated with fluconazole. Cont current woundvac and defer any other recs regarding such to Sherie Jesus and the woundcare team there is concern he is sensitive/having dermatitis due to the adherent material adherent material of woundvac was changed this week to try and avoid ongoing dermatitis (different material to be used per Sherie) (4) Chronic osteomyelitis of sacrum: Plan: intra-op culture from 07/31 with MSSA, pseudomonas, providencia, and anaerobes. Sacral bone biopsy 08/24 with VRE and 2-week course of linezolid completed 09/13/23. no dedicated abx since then for the sacrum (5) Hospital acquired PNA: Plan: LLL -- resolved. Due to pseudomonas infection. Chronology of events: 08/01 - cxr with worsening infiltrates on left 08/03 - collapse LLL 08/03 - bronchoscopy by Dr Blancas with mucous plugging found in the left-sided bronchial tree s/p removal; 08/07 - s/p bronch by Dr Lock - minimal secretions LLL, no plugs; thick secretions in trach, however 08/09 - bronch cx - pseudomonas, intermediate resistance 08/09 - changed zosyn to cefepime 08/22 - cxr - ongoing LLL infiltrates/effusion - similar to previous imaging 09/17 - cxr showed improved aeration within the left lung base 10/11 - cxr with LLL infiltrate but stable trach changed to cuffless by Dr. Street 09/09 no issues at this time stable O2 sats on 6 L O2 (6) Severe protein-calorie malnutrition: Plan: much improved. Continue current nutrition recommendations - appreciate their recs. Current nutritional plan: Peg tube replaced 09/25 - Dr Rhodes Most recent albumin >3.5 Phos today wnl Weight is stable (7) History of DVT (deep vein thrombosis): Plan: RLE DVT discovered 11/2022. Had been on Eliquis 5mg BID since 12/12/22. Eliquis dosage reduced to 2.5mg BID earlier in the stay (8) History of nontraumatic rupture of cerebral aneurysm: Plan: Patient is nonverbal at baseline with chronic contractures in all 4 extremities, has eye opening, roving eye movements, grimacing, sleep-wake cycles. Functional quadriplegia. CT head shows encephalomalacia and good shunt placement . He unfortunately suffered a ruptured brain aneurysm and SAH 08/2022. Status post craniotomy and evacuation of hematoma. 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 He has a ventriculoperitoneal shunt in place. Known resultant severe autonomic dysfunction / paroxysmal sympathetic hyperactivity / autonomic storm which is controlled on medications and has the potential to be confused with sepsis. Continue current medical management (9) Autonomic dysfunction: Plan: No recent issues. Continue dantrolene and bromocriptine. Continue gabapentin and baclofen for spasticity, Continue scop patch and tylenol scheduled. (10) Cardiomyopathy: Plan: last echo 07/11/23 - low normal EF 50-55%. No acute current problems. Continue metoprolol 12.5mg BID. (11) Tracheostomy status: Plan: cont local trach care. 09/09 - trach changed to 8.0 uncuffed tracheostomy tube by Dr. Street no issues at this time. pulmonary status very stable. (12) Candidiasis: Plan: multiple locations - back/buttocks, groin, R axillary region. Cont anti-yeast topical powders. Completed 7d diflucan 09/11 with significant improvement Was placed back on diflucan again recently; ID recommending against such unless absolutely necessary Diflucan stopped by ID earlier this week Plan SW note 10/08/23 - [facility] unable to accept patient messages out to multiple other facilities - no luck in securing a new facility for Ry [facility] SW assistance & efforts Maintenance issues: lewis changed 10/07 - has active UTI - change in a few days trach changed 09/09 peg tube changed 09/25 I updated pt's mother this evening, 10/17/23 Admission and Anticipated Discharge Date Admission Date: July 18, 2023 Subjective woundvac exchanged today by the wound care team no changes made in his sacral ulcer care plan tolerating tube feedings have near-daily bowel movements speaking with Sherie Jesus there have been no issues with stool contamination of his sacral decub - stool is relatively formed remains on his usual 6 liters of O2 Review of Systems 2 Review of Systems: Unobtainable due to cognitive status (nonverbal, persistent vegetative state ) Physical Exam 2 Physical Exam: gen - NAD, sleeping head - deformity right side from prior craniotomy unchanged neck - no JVD; trach in place - clean mouth - MMM; lips clean heart - RRR, s1 s2, no murmur lungs - CTA b/l, modestly decreased BS L base abd - soft NT BS+; PEG tube site clean; mildly distended but no worse than prior exams ext - no edema b/l, pulses 2+ b/l; contractures skin - right lateral thigh with tinea lesions vs post-inflammatory hyperpigmentation from prior bullae/blisters neuro - contractures all extremities; generalized muscle wasting present; no purposeful movements -- just reflexive behaviors seen (jaw jerk, etc) Results & Data Results & Data Vital Signs (Past 12 Hours) Vital Signs Temp Pulse Pulse Resp BP Pulse Ox O2 Del Method 10/17/23 19:52 75 18 98 Trach Collar 10/17/23 14:53 36.9 C 80 20 116/74 99 Trach Collar 10/17/23 11:47 Trach Collar 10/17/23 11:10 65 114/74 O2 Flow Rate FiO2 10/17/23 19:52 6 28 10/17/23 14:53 10/17/23 11:47 6 10/17/23 11:10 Laboratory Results Laboratory Results - last 24 hr 10/17/23 08:22 Sodium 140 Potassium 4.2 Chloride 103 Carbon Dioxide 32 Anion Gap 5 BUN 34 H Creatinine 0.42 L Est Cr Clr Drug Dosing 202.7 Est GFR ( Amer) > 150.0 Est GFR (Non-Af Amer) > 150.0 BUN/Creatinine Ratio 81.0 H Glucose 105 H Calcium 9.2 Phosphorus 3.7 PG Care Time/CCT Total # of Minutes Spent Total Time Spent with Patient: Total time spent is greater than 50% in coordination of care (as documented) at patient's floor/unit and/or counseling patient: Coding Level of Care Code 28920 SUB INP/OBS CARE 07/17MIN Diagnoses Bacteremia due to Pseudomonas R78.81; B96.5 Catheter-associated urinary tract infection T83.511A; N39.0 Decubitus ulcer of sacral region, stage 4 L89.154 Chronic osteomyelitis of sacrum M86.68 Hospital acquired PNA J18.9; Y95 Severe protein-calorie malnutrition E43 History of DVT (deep vein thrombosis) Z86.718 History of nontraumatic rupture of cerebral aneurysm Z86.79 Autonomic dysfunction G90.9 Cardiomyopathy I42.9 Tracheostomy status Z93.0 Candidiasis B37.9
--- NOTE | 2023-10-18 14:30 | Hospitalist Progress Note ---
Date of Service October 18, 2023 Assessment & Plan (1) Bacteremia due to Pseudomonas: Plan: source - likely the urine can't rule out his sacral wound but unlikely - wound relatively clean at this time (see wound care team documentation and scanned photos) can't rule out the left lung but highly unlikely (no significant change in O2 requirement, no significant change in his recent CXRs, no significant sputum changes, etc) repeat blood cx's 10/11 neg to date appreciate ID consult/recs Plan: continue cefepime for a course of 14 days start date 10/12/23 (date of first negative blood culture) end date 10/25/23 he tends to get diarrhea with broad-spectrum IV antibiotics - watch closely for such -continue same treatment plan 10/17, continue IV cefepime (2) Catheter-associated urinary tract infection: Plan: 2nd pseudomonas lewis exchanged on 10/07 (coude catheter by report) unfortunately this was before his UTI was discovered would exchange the lewis again later in his abx course - perhaps this weekend there has been talk about him transitioning to condom cath but he has neurogenic bladder; attempts to allow condom cath earlier in the stay unsuccessful; this was met with significant urinary retention (3) Decubitus ulcer of sacral region, stage 4: Plan: Present on admission. - s/p debridement in the OR by Dr Issa on 07/31/23. - Wound vac placed on 08/01. Wound vac then changed to a pulsating irrigation woundvac on 08/21/23. - Due to lack of improvement and worsening appearance of his ulcer he underwent repeat debridement in the OR by Dr Dorsey on 08/25/23. - on 09/04 the woundvac was removed due to candidiasis (extensive) in sacral area. Treated with fluconazole. Cont current woundvac and defer any other recs regarding such to Sherie Jesus and the woundcare team there is concern he is sensitive/having dermatitis due to the adherent material adherent material of woundvac was changed this week to try and avoid ongoing dermatitis (different material to be used per Sherie) =photo from 10/16 WON reviewed, appears improved with resolution of previous dermatitis (4) Chronic osteomyelitis of sacrum: Plan: intra-op culture from 07/31 with MSSA, pseudomonas, providencia, and anaerobes. Sacral bone biopsy 08/24 with VRE and 2-week course of linezolid completed 09/13/23. no dedicated abx since then for the sacrum (5) Hospital acquired PNA: Plan: LLL -- resolved. Due to pseudomonas infection. Chronology of events: 08/01 - cxr with worsening infiltrates on left 08/03 - collapse LLL 08/03 - bronchoscopy by Dr Blancas with mucous plugging found in the left-sided bronchial tree s/p removal; 08/07 - s/p bronch by Dr Lock - minimal secretions LLL, no plugs; thick secretions in trach, however 08/09 - bronch cx - pseudomonas, intermediate resistance 08/09 - changed zosyn to cefepime 08/22 - cxr - ongoing LLL infiltrates/effusion - similar to previous imaging 09/17 - cxr showed improved aeration within the left lung base 10/11 - cxr with LLL infiltrate but stable trach changed to cuffless by Dr. Street 09/09 no issues at this time stable O2 sats on 6 L O2 (6) Severe protein-calorie malnutrition: Plan: much improved. Continue current nutrition recommendations - appreciate their recs. Current nutritional plan: Peg tube replaced 09/25 - Dr Rhodes Most recent albumin >3.5 Phos today wnl Weight is stable (7) History of DVT (deep vein thrombosis): Plan: RLE DVT discovered 11/2022. Had been on Eliquis 5mg BID since 12/12/22. Eliquis dosage reduced to 2.5mg BID earlier in the stay (8) History of nontraumatic rupture of cerebral aneurysm: Plan: Patient is nonverbal at baseline with chronic contractures in all 4 extremities, has eye opening, roving eye movements, grimacing, sleep-wake cycles. Functional quadriplegia. CT head shows encephalomalacia and good shunt placement . He unfortunately suffered a ruptured brain aneurysm and SAH 08/2022. Status post craniotomy and evacuation of hematoma. 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 He has a ventriculoperitoneal shunt in place. Known resultant severe autonomic dysfunction / paroxysmal sympathetic hyperactivity / autonomic storm which is controlled on medications and has the potential to be confused with sepsis. Continue current medical management (9) Autonomic dysfunction: Plan: No recent issues. Continue dantrolene and bromocriptine. Continue gabapentin and baclofen for spasticity, Continue scop patch and tylenol scheduled. (10) Cardiomyopathy: Plan: last echo 07/11/23 - low normal EF 50-55%. No acute current problems. Continue metoprolol 12.5mg BID. (11) Tracheostomy status: Plan: cont local trach care. 09/09 - trach changed to 8.0 uncuffed tracheostomy tube by Dr. Street no issues at this time. pulmonary status very stable. (12) Candidiasis: Plan: multiple locations - back/buttocks, groin, R axillary region. Cont anti-yeast topical powders. Completed 7d diflucan 09/11 with significant improvement Was placed back on diflucan again recently; ID recommending against such unless absolutely necessary Diflucan stopped by ID earlier this week Plan SW note 10/08/23 - [facility] unable to accept patient messages out to multiple other facilities - no luck in securing a new facility for Ry Appreciate SW assistance & efforts Maintenance issues: lewis changed 10/07 - has active UTI - change in a few days trach changed 09/09 peg tube changed 09/25 I updated pt's mother this evening, 10/17/23 Admission and Anticipated Discharge Date Admission Date: July 18, 2023 Subjective nonverbal no events or changes last 24h Physical Exam 2 Physical Exam: PHYSICAL EXAMINATION Last 24h vital signs reviewed, see documentation in flowsheet General: eyes closed HEENT: R skull deformity unchanged. trach site anterior neck cdi Lungs: good air movement bilaterally anteriorly, CTAB Heart: Reg no mrg Abdomen: soft nondistended. +BT Extremities: Warm, dry, well-perfused. No extremity edema. diffuse sarcopenia present. Neuro: eyes closed. he has flexion contractures of both wrists, right elbow, bilateral lower extremities Psych: unable to assess Results & Data Results & Data Vital Signs (Past 12 Hours) Vital Signs Temp Pulse Resp BP Pulse Ox O2 Del Method O2 Flow Rate 10/18/23 08:02 36.9 C 83 16 106/73 99 Trach Collar 10/18/23 08:00 Trach Collar 10/18/23 07:40 63 18 100 Trach Collar 6 FiO2 10/18/23 08:02 10/18/23 08:00 10/18/23 07:40 28 Laboratory Results 10/14/23 06:21 10/17/23 08:22 PG Care Time/CCT Total # of Minutes Spent Total Time Spent with Patient: Total time spent is greater than 50% in coordination of care (as documented) at patient's floor/unit and/or counseling patient: Coding Level of Care Code 98246 SUB INP/OBS CARE Diagnoses Bacteremia due to Pseudomonas R78.81; B96.5 Catheter-associated urinary tract infection T83.511A; N39.0 Decubitus ulcer of sacral region, stage 4 L89.154 Chronic osteomyelitis of sacrum M86.68 Hospital acquired PNA J18.9; Y95 Severe protein-calorie malnutrition E43 History of DVT (deep vein thrombosis) Z86.718 History of nontraumatic rupture of cerebral aneurysm Z86.79 Autonomic dysfunction G90.9 Cardiomyopathy I42.9 Tracheostomy status Z93.0 Candidiasis B37.9
--- NOTE | 2023-10-19 13:06 | Hospitalist Progress Note ---
Date of Service October 19, 2023 Assessment & Plan (1) Bacteremia due to Pseudomonas: Plan: source - likely the urine can't rule out his sacral wound but unlikely - wound relatively clean at this time (see wound care team documentation and scanned photos) can't rule out the left lung but highly unlikely (no significant change in O2 requirement, no significant change in his recent CXRs, no significant sputum changes, etc) repeat blood cx's 10/11 neg to date appreciate ID consult/recs Plan: continue cefepime for a course of 14 days start date 10/12/23 (date of first negative blood culture) end date 10/25/23 he tends to get diarrhea with broad-spectrum IV antibiotics - watch closely for such staff report that his stools remain formed (2) Catheter-associated urinary tract infection: Plan: 2nd pseudomonas lewis exchanged on 10/07 (coude catheter by report) unfortunately this was before his UTI was discovered would exchange the lewis again later in his abx course - perhaps later this week there has been talk about him transitioning to condom cath but he has neurogenic bladder; attempts to allow condom cath earlier in the stay unsuccessful; this was met with significant urinary retention (3) Decubitus ulcer of sacral region, stage 4: Plan: Present on admission. - s/p debridement in the OR by Dr Issa on 07/31/23. - Wound vac placed on 08/01. Wound vac then changed to a pulsating irrigation woundvac on 08/21/23. - Due to lack of improvement and worsening appearance of his ulcer he underwent repeat debridement in the OR by Dr Dorsey on 08/25/23. - on 09/04 the woundvac was removed due to candidiasis (extensive) in sacral area. Treated with fluconazole. Cont current woundvac and defer any other recs regarding such to Sherie Jesus and the woundcare team there is concern he is sensitive/having dermatitis due to the adherent material adherent material of woundvac was changed this week to try and avoid ongoing dermatitis (different material to be used per Sherie) (4) Chronic osteomyelitis of sacrum: Plan: intra-op culture from 07/31 with MSSA, pseudomonas, providencia, and anaerobes. Sacral bone biopsy 08/24 with VRE and 2-week course of linezolid completed 09/13/23. no dedicated abx since then for the sacrum (5) Hospital acquired PNA: Plan: Earlier this admission --> LLL pneumonia -- resolved. Due to pseudomonas infection. Chronology of events: 08/01 - cxr with worsening infiltrates on left 08/03 - collapse LLL 08/03 - bronchoscopy by Dr Blancas with mucous plugging found in the left-sided bronchial tree s/p removal; 08/07 - s/p bronch by Dr Lock - minimal secretions LLL, no plugs; thick secretions in trach, however 08/09 - bronch cx - pseudomonas, intermediate resistance 08/09 - changed zosyn to cefepime 08/22 - cxr - ongoing LLL infiltrates/effusion - similar to previous imaging 09/17 - cxr showed improved aeration within the left lung base 10/11 - cxr with LLL infiltrate but stable trach changed to cuffless by Dr. Street 09/09 no issues at this time stable O2 sats on 6 L O2 (6) Severe protein-calorie malnutrition: Plan: much improved. Continue current nutrition recommendations - appreciate their recs. Current nutritional plan: Peg tube replaced 09/25 - Dr Rhodes Most recent albumin >3.5 Phos wnl Weight is stable (7) History of DVT (deep vein thrombosis): Plan: RLE DVT discovered 11/2022. Had been on Eliquis 5mg BID since 12/12/22. Eliquis dosage reduced to 2.5mg BID earlier in the stay (8) History of nontraumatic rupture of cerebral aneurysm: Plan: Patient is nonverbal at baseline with chronic contractures in all 4 extremities, has eye opening, roving eye movements, grimacing, sleep-wake cycles. Functional quadriplegia. CT head shows encephalomalacia and good shunt placement . He unfortunately suffered a ruptured brain aneurysm and SAH 08/2022. Status post craniotomy and evacuation of hematoma. 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 He has a ventriculoperitoneal shunt in place. Known resultant severe autonomic dysfunction / paroxysmal sympathetic hyperactivity / autonomic storm which is controlled on medications and has the potential to be confused with sepsis. Continue current medical management (9) Autonomic dysfunction: Plan: No recent issues. Continue dantrolene and bromocriptine. Continue gabapentin and baclofen for spasticity, Continue scop patch and tylenol scheduled. (10) Cardiomyopathy: Plan: last echo 07/11/23 - low normal EF 50-55%. No acute current problems. Continue metoprolol 12.5mg BID. (11) Tracheostomy status: Plan: cont local trach care. 09/09 - trach changed to 8.0 uncuffed tracheostomy tube by Dr. Street no issues at this time. pulmonary status very stable. (12) Candidiasis: Plan: multiple locations - back/buttocks, groin, R axillary region. Cont anti-yeast topical powders. Completed 7d diflucan 09/11 with significant improvement Was placed back on diflucan again recently; ID recommending against such unless absolutely necessary Diflucan stopped by ID last week (13) Onychia of toe: Plan: right great toe very mild does not need I/D, etc bactroban ointment BID x 7 days Plan SW note 10/08/23 - [facility] unable to accept patient messages out to multiple other facilities - no luck in securing a new facility for Ry Appreciate SW assistance & efforts Maintenance issues: lewis changed 10/07 - has active UTI - change in a few days trach changed 09/09 peg tube changed 09/25 I updated pt's mother 10/17/23 and today, 10/19/23 Admission and Anticipated Discharge Date Admission Date: July 18, 2023 Subjective no events overnight tolerating tube feedings mother at bedside she had several questions about the tube feedings and calories she expressed concerns about his right great toe - was draining green fluid the other day? Review of Systems 2 Review of Systems: Unobtainable due to cognitive status (nonverbal ) Physical Exam 2 Physical Exam: gen - NAD, eyes open head - deformity right side from prior craniotomy unchanged neck - no JVD; trach in place - clean mouth - MMM heart - RRR, s1 s2, no murmur lungs - CTA b/l, modestly decreased BS L base abd - soft NT BS+; PEG tube site clean; mildly distended - no change ext - no edema b/l, pulses 2+ b/l; contractures skin - right lateral thigh with circular areas of post-inflammatory hyperpigmentation from prior bullae/blisters neuro - contractures all extremities; generalized muscle wasting present; no purposeful movements musculo - right great toe - mild irritation/inflammation lateral border but no active onychia or purulent drainage Results & Data Results & Data Vital Signs (Past 12 Hours) Vital Signs Temp Pulse Resp BP Pulse Ox O2 Del Method O2 Flow Rate 10/19/23 08:00 Trach Collar 10/19/23 07:11 36.9 C 97 H 16 108/74 100 Trach Collar 10/19/23 07:04 77 18 99 Trach Collar 6 FiO2 10/19/23 08:00 10/19/23 07:11 10/19/23 07:04 28 PG Care Time/CCT Total # of Minutes Spent Total Time Spent with Patient: Total time spent is greater than 50% in coordination of care (as documented) at patient's floor/unit and/or counseling patient: Coding Level of Care Code 37351 SUB INP/OBS CARE 07/17MIN Diagnoses Bacteremia due to Pseudomonas R78.81; B96.5 Catheter-associated urinary tract infection T83.511A; N39.0 Decubitus ulcer of sacral region, stage 4 L89.154 Chronic osteomyelitis of sacrum M86.68 Hospital acquired PNA J18.9; Y95 Severe protein-calorie malnutrition E43 History of DVT (deep vein thrombosis) Z86.718 History of nontraumatic rupture of cerebral aneurysm Z86.79 Autonomic dysfunction G90.9 Cardiomyopathy I42.9 Tracheostomy status Z93.0 Candidiasis B37.9 Onychia of toe L03.039
[2023-10-19] MEDS: MUPIROCIN 2% OINT 22 GM TUBE EXT SCH (22:05)
--- NOTE | 2023-10-20 16:49 | Hospitalist Progress Note ---
Date of Service October 20, 2023 Assessment & Plan (1) Bacteremia due to Pseudomonas: Plan: source - likely the urine can't rule out his sacral wound but unlikely - wound relatively clean at this time (see wound care team documentation and scanned photos) can't rule out the left lung but highly unlikely (no change in O2 requirement, no significant change in his recent CXRs, no significant sputum changes, etc) repeat blood cx's 10/11 neg to date appreciate ID consult/recs Plan: continue cefepime for a course of 14 days start date 10/12/23 (date of first negative blood culture) end date 10/25/23 (2) Catheter-associated urinary tract infection: Plan: 2nd pseudomonas lewis exchanged on 10/07 (coude catheter by report) unfortunately this was before his UTI was discovered would exchange the lewis again later in his abx course - perhaps later this week there has been talk about him transitioning to condom cath but he has neurogenic bladder; attempts to allow condom cath earlier in the hospital stay unsuccessful; this was met with significant urinary retention (3) Decubitus ulcer of sacral region, stage 4: Plan: Present on admission. - s/p debridement in the OR by Dr Issa on 07/31/23. - Wound vac placed on 08/01. Wound vac then changed to a pulsating irrigation woundvac on 08/21/23. - Due to lack of improvement and worsening appearance of his ulcer he underwent repeat debridement in the OR by Dr Dorsey on 08/25/23. - on 09/04 the woundvac was removed due to candidiasis (extensive) in sacral area. Treated with fluconazole. Cont current woundvac and defer any other recs regarding such to Sherie Jesus and the woundcare team there is concern he is sensitive/having dermatitis due to the adherent material adherent material of woundvac was changed last week to try and avoid ongoing dermatitis (different material to be used per Sherie) appreciate wound care team assistance (4) Chronic osteomyelitis of sacrum: Plan: intra-op culture from 07/31 with MSSA, pseudomonas, providencia, and anaerobes. Sacral bone biopsy 08/24 with VRE and 2-week course of linezolid completed 09/13/23. He has not been on dedicated abx since August for the sacrum continue local wound care with woundvac as in #3 above (5) Hospital acquired PNA: Plan: Earlier this admission --> LLL pneumonia -- resolved. Due to pseudomonas infection. Chronology of events: 08/01 - cxr with worsening infiltrates on left 08/03 - collapse LLL 08/03 - bronchoscopy by Dr Blancas with mucous plugging found in the left-sided bronchial tree s/p removal; 08/07 - s/p bronch by Dr Lock - minimal secretions LLL, no plugs; thick secretions in trach, however 08/09 - bronch cx - pseudomonas, intermediate resistance 08/09 - changed zosyn to cefepime 08/22 - cxr - ongoing LLL infiltrates/effusion - similar to previous imaging 09/17 - cxr showed improved aeration within the left lung base 10/11 - cxr with LLL infiltrate but stable trach changed to cuffless by Dr. Street 09/09 no issues at this time stable O2 sats on 6 L O2 (6) Severe protein-calorie malnutrition: Plan: much improved. Continue current nutrition recommendations - appreciate their recs. Current nutritional plan: Peg tube replaced 09/25 - Dr Rhodes Most recent albumin >3.5 Phos wnl Weight is stable (7) History of DVT (deep vein thrombosis): Plan: RLE DVT discovered 11/2022 in [place]. Had been on Eliquis 5mg BID since 12/12/22. Eliquis dosage reduced to 2.5mg BID earlier in this hospitalization for prophylaxis (8) History of nontraumatic rupture of cerebral aneurysm: Plan: Patient is nonverbal at baseline with chronic contractures in all 4 extremities, has eye opening, roving eye movements, grimacing, sleep-wake cycles. Functional quadriplegia. CT head shows encephalomalacia and good shunt placement . He unfortunately suffered a ruptured brain aneurysm and SAH 08/2022. Status post craniotomy and evacuation of hematoma. 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 He has a ventriculoperitoneal shunt in place. Known resultant severe autonomic dysfunction / paroxysmal sympathetic hyperactivity / autonomic storm which is controlled on medications and has the potential to be confused with sepsis. Continue current medical management (9) Autonomic dysfunction: Plan: No recent issues. Continue dantrolene and bromocriptine. Continue gabapentin and baclofen for spasticity, Continue scop patch and tylenol scheduled. (10) Cardiomyopathy: Plan: last echo 07/11/23 - low normal EF 50-55%. No acute current problems. Continue metoprolol 12.5mg BID. No evidence of decompensation. (11) Tracheostomy status: Plan: cont local trach care. 09/10/23 - trach changed to 8.0 uncuffed tracheostomy tube by Dr. Street no issues at this time. pulmonary status stable. (12) Candidiasis: Plan: multiple locations - back/buttocks, groin, R axillary region. Cont anti-yeast topical powders. Completed 7d diflucan 09/11 with significant improvement Was placed back on diflucan again recently; ID recommending against such unless absolutely necessary Diflucan stopped by ID last week (13) Onychia of toe: Plan: right great toe very mild does not need I/D, etc bactroban ointment BID x 7 days Plan SW note 10/08/23 - [facility] unable to accept patient messages out to multiple other facilities - no luck in securing a new facility for Ry Ruddy SW assistance & efforts Maintenance issues: lewis changed 10/07 - has active UTI - change later this week trach changed 09/09 peg tube changed 09/25 I updated pt's mother 10/17/23 and 10/19/23 Admission and Anticipated Discharge Date Admission Date: July 18, 2023 Subjective no events overnight woundvac exchanged by wound care team tolerating tube feedings having soft, formed stools no other concerns from nursing staff Review of Systems 2 Review of Systems: Other (nonverbal / vegetative state ) Physical Exam 2 Physical Exam: gen - NAD, eyes open head - deformity right side from prior craniotomy unchanged neck - no JVD; trach in place - clean mouth - MMM heart - RRR, s1 s2, no murmur lungs - CTA b/l, slightly decreased BS L base abd - soft NT BS+; PEG tube site clean ext - no edema b/l, pulses 2+ b/l; contractures skin - right lateral thigh with circular areas of post-inflammatory hyperpigmentation from prior bullae/blisters - no changes; no new areas of rash neuro - contractures all extremities; generalized muscle wasting present; no purposeful movements musculo - right great toe - mild irritation lateral border but no active onychia or purulent drainage Results & Data Results & Data Vital Signs (Past 12 Hours) Vital Signs Temp Pulse Resp BP Pulse Ox O2 Del Method O2 Flow Rate 10/20/23 14:53 36.9 C 76 20 112/60 99 Trach Collar 6 10/20/23 08:23 36.3 C L 83 14 112/72 99 Room Air, Trach Collar 10/20/23 08:00 Trach Collar 10/20/23 07:48 68 16 100 Trach Collar 6 FiO2 10/20/23 14:53 10/20/23 08:23 10/20/23 08:00 10/20/23 07:48 28 PG Care Time/CCT Total # of Minutes Spent Total Time Spent with Patient: Total time spent is greater than 50% in coordination of care (as documented) at patient's floor/unit and/or counseling patient: Coding Level of Care Code 23707 SUB INP/OBS CARE 07/17MIN Diagnoses Bacteremia due to Pseudomonas R78.81; B96.5 Catheter-associated urinary tract infection T83.511A; N39.0 Decubitus ulcer of sacral region, stage 4 L89.154 Chronic osteomyelitis of sacrum M86.68 Hospital acquired PNA J18.9; Y95 Severe protein-calorie malnutrition E43 History of DVT (deep vein thrombosis) Z86.718 History of nontraumatic rupture of cerebral aneurysm Z86.79 Autonomic dysfunction G90.9 Cardiomyopathy I42.9 Tracheostomy status Z93.0 Candidiasis B37.9 Onychia of toe L03.039
--- NOTE | 2023-10-21 16:25 | Hospitalist Progress Note ---
Date of Service October 21, 2023 Assessment & Plan (1) Bacteremia due to Pseudomonas: Plan: source - likely the urine repeat blood cx's 10/11 finalized negative appreciate ID consult/recs Plan: continue cefepime for a course of 14 days start date 10/12/23 (date of first negative blood culture) end date 10/25/23 (2) Catheter-associated urinary tract infection: Plan: 2nd pseudomonas lewis exchanged on 10/07 (coude catheter by report) unfortunately this was before his UTI was discovered would exchange the lewis again later in his abx course - perhaps later this week there has been talk about him transitioning to condom cath but he has neurogenic bladder; attempts to allow condom cath earlier in the hospital stay unsuccessful; this was met with significant urinary retention (3) Decubitus ulcer of sacral region, stage 4: Plan: Present on admission. - s/p debridement in the OR by Dr Issa on 07/31/23. - Wound vac placed on 08/01. Wound vac then changed to a pulsating irrigation woundvac on 08/21/23. - Due to lack of improvement and worsening appearance of his ulcer he underwent repeat debridement in the OR by Dr Dorsey on 08/25/23. - on 09/04 the woundvac was removed due to candidiasis (extensive) in sacral area. Treated with fluconazole. Cont current woundvac and defer any other recs regarding such to Sherie Jesus and the woundcare team there is concern he is sensitive/having dermatitis due to the adherent material adherent material of woundvac was changed last week to try and avoid ongoing dermatitis (different material to be used per Sherie) appreciate wound care team assistance (4) Chronic osteomyelitis of sacrum: Plan: intra-op culture from 07/31 with MSSA, pseudomonas, providencia, and anaerobes. Sacral bone biopsy 08/24 with VRE and 2-week course of linezolid completed 09/13/23. He has not been on dedicated abx since August for the sacrum continue local wound care with woundvac as in #3 above (5) Hospital acquired PNA: Plan: 07/2023 LLL pneumonia with L sided mucus plugging treated with bronchoscopies -- resolved. Due to pseudomonas infection. See previous prog notes for chronology of events (10/19 and earlier) (6) Severe protein-calorie malnutrition: Plan: much improved. Continue current nutrition recommendations - appreciate their recs. Current nutritional plan: Peg tube replaced 09/25 - Dr Rhodes Most recent albumin >3.5 Phos wnl Weight is stable (7) History of DVT (deep vein thrombosis): Plan: RLE DVT discovered 11/2022 in [place] treated with apixaban 5 mg bid through winter 2023. Eliquis dosage reduced to 2.5mg BID earlier in this hospitalization for prophylaxis (8) History of nontraumatic rupture of cerebral aneurysm: Plan: Patient is nonverbal at baseline with chronic contractures in all 4 extremities, has eye opening, roving eye movements, grimacing, sleep-wake cycles. Functional quadriplegia. CT head shows encephalomalacia and good shunt placement . He unfortunately suffered a ruptured brain aneurysm and SAH 08/2022. Status post craniotomy and evacuation of hematoma. 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 He has a ventriculoperitoneal shunt in place. Known resultant severe autonomic dysfunction / paroxysmal sympathetic hyperactivity / autonomic storm which is controlled on medications and has the potential to be confused with sepsis. Continue current medical management (9) Autonomic dysfunction: Plan: No recent issues. Continue dantrolene and bromocriptine. Continue gabapentin and baclofen for spasticity, Continue scop patch and tylenol scheduled. (10) Cardiomyopathy: Plan: last echo 07/11/23 - low normal EF 50-55%. No acute current problems. Continue metoprolol 12.5mg BID. (11) Tracheostomy status: Plan: cont local trach care. 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 09/10/23 - trach changed to 8.0 uncuffed tracheostomy tube by Dr. Street (12) Candidiasis: Plan: multiple locations - back/buttocks, groin, R axillary region. Cont anti-yeast topical powders. Completed 7d diflucan 09/11 with significant improvement Was placed back on diflucan again in September; ID recommending against such unless absolutely necessary (13) Onychia of toe: Plan: right great toe very mild does not need I/D, etc bactroban ointment BID x 7 days Plan Maintenance issues: lewis changed 10/07 - has active UTI - change later this week trach changed 09/09 peg tube changed 09/25 updated pt's mother 10/17/23 and 10/19/23 Admission and Anticipated Discharge Date Admission Date: July 18, 2023 Subjective nonverbal no events Physical Exam 2 Physical Exam: PHYSICAL EXAMINATION Last 24h vital signs reviewed, see documentation in flowsheet General: eyes open HEENT: R skull deformity unchanged. trach site anterior neck cdi Lungs: CTAB no wheezing, nonlabored Heart: Reg no mrg Abdomen: soft nondistended. +BT. gtube Extremities: Warm, dry, well-perfused. No extremity edema. diffuse sarcopenia present. Neuro: eyes open with roving eye movements, did not track to voice or exam. he has flexion contractures of both wrists, right elbow, bilateral lower extremities Psych: unable to assess Results & Data Results & Data Vital Signs (Past 12 Hours) Vital Signs Temp Pulse Resp BP Pulse Ox O2 Del Method O2 Flow Rate 10/21/23 14:24 36.9 C 67 16 98/67 L 100 Trach Collar 6 10/21/23 10:15 Trach Collar 6 10/21/23 07:28 36.8 C 52 L 15 101/67 99 Trach Collar 6 10/21/23 07:23 15 98 Trach Collar PG Care Time/CCT Total # of Minutes Spent Total Time Spent with Patient: Total time spent is greater than 50% in coordination of care (as documented) at patient's floor/unit and/or counseling patient: Coding Level of Care Code 99773 SUB INP/OBS CARE 07/17MIN Diagnoses Bacteremia due to Pseudomonas R78.81; B96.5 Catheter-associated urinary tract infection T83.511A; N39.0 Decubitus ulcer of sacral region, stage 4 L89.154 Chronic osteomyelitis of sacrum M86.68 Hospital acquired PNA J18.9; Y95 Severe protein-calorie malnutrition E43 History of DVT (deep vein thrombosis) Z86.718 History of nontraumatic rupture of cerebral aneurysm Z86.79 Autonomic dysfunction G90.9 Cardiomyopathy I42.9 Tracheostomy status Z93.0 Candidiasis B37.9 Onychia of toe L03.039
--- NOTE | 2023-10-22 14:28 | Hospitalist Progress Note ---
Date of Service October 22, 2023 Assessment & Plan (1) Bacteremia due to Pseudomonas: Plan: source - likely the urine repeat blood cx's 10/11 finalized negative appreciate ID consult/recs Plan: continue cefepime for a course of 14 days start date 10/12/23 (date of first negative blood culture) end date 10/25/23 (2) Catheter-associated urinary tract infection: Plan: 2nd pseudomonas lewis exchanged on 10/07 (coude catheter by report) unfortunately this was before his UTI was discovered would exchange the lewis again later in his abx course - perhaps later this week there has been talk about him transitioning to condom cath but he has neurogenic bladder; attempts to allow condom cath earlier in the hospital stay unsuccessful; this was met with significant urinary retention (3) Decubitus ulcer of sacral region, stage 4: Plan: Present on admission. - s/p debridement in the OR by Dr Issa on 07/31/23. - Wound vac placed on 08/01. Wound vac then changed to a pulsating irrigation woundvac on 08/21/23. - Due to lack of improvement and worsening appearance of his ulcer he underwent repeat debridement in the OR by Dr Dorsey on 08/25/23. - on 09/04 the woundvac was removed due to candidiasis (extensive) in sacral area. Treated with fluconazole. Cont current woundvac and defer any other recs regarding such to Sherie Jesus and the woundcare team adherent material of woundvac was changed to try and avoid ongoing dermatitis (different material to be used per Sherie) - appears improved appreciate wound care team assistance (4) Chronic osteomyelitis of sacrum: Plan: intra-op culture from 07/31 with MSSA, pseudomonas, providencia, and anaerobes. Sacral bone biopsy 08/24 with VRE and 2-week course of linezolid completed 09/13/23. He has not been on dedicated abx since August for the sacrum continue local wound care with woundvac as in #3 above (5) Hospital acquired PNA: Plan: 07/2023 LLL pneumonia with L sided mucus plugging treated with bronchoscopies -- resolved. Due to pseudomonas infection. See previous prog notes for chronology of events (10/19 and earlier) (6) Severe protein-calorie malnutrition: Plan: much improved. Continue current nutrition recommendations - appreciate their recs. Current nutritional plan: Peg tube replaced 09/25 - Dr Rhodes Most recent albumin >3.5 Phos wnl Weight is stable (7) History of DVT (deep vein thrombosis): Plan: RLE DVT discovered 11/2022 in [place] treated with apixaban 5 mg bid through winter 2023. Eliquis dosage reduced to 2.5mg BID earlier in this hospitalization for prophylaxis (8) History of nontraumatic rupture of cerebral aneurysm: Plan: Patient is nonverbal at baseline with chronic contractures in all 4 extremities, has eye opening, roving eye movements, grimacing, sleep-wake cycles. Functional quadriplegia. CT head shows encephalomalacia and good shunt placement . He unfortunately suffered a ruptured brain aneurysm and SAH 08/2022. Status post craniotomy and evacuation of hematoma. 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 He has a ventriculoperitoneal shunt in place. Known resultant severe autonomic dysfunction / paroxysmal sympathetic hyperactivity / autonomic storm which is controlled on medications and has the potential to be confused with sepsis. Continue current medical management (9) Autonomic dysfunction: Plan: No recent issues. Continue dantrolene and bromocriptine. Continue gabapentin and baclofen for spasticity, Continue scop patch and tylenol scheduled. (10) Cardiomyopathy: Plan: last echo 07/11/23 - low normal EF 50-55%. No acute current problems. Continue metoprolol 12.5mg BID. (11) Tracheostomy status: Plan: cont local trach care. 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 09/10/23 - trach changed to 8.0 uncuffed tracheostomy tube by Dr. Street (12) Candidiasis: Plan: multiple locations - back/buttocks, groin, R axillary region. Cont anti-yeast topical powders. Completed 7d diflucan 09/11 with significant improvement Was placed back on diflucan again in September; ID recommending against such unless absolutely necessary (13) Onychia of toe: Plan: right great toe very mild does not need I/D, etc bactroban ointment BID x 7 days Plan Maintenance issues: lewis changed 10/07 - has active UTI - change later this week trach changed 09/09 peg tube changed 09/25 updated pt's mother 10/17/23 and 10/19/23 Admission and Anticipated Discharge Date Admission Date: July 18, 2023 Subjective nonverbal vac changed today Physical Exam 2 Physical Exam: PHYSICAL EXAMINATION Last 24h vital signs reviewed, see documentation in flowsheet General: eyes open HEENT: R skull deformity unchanged. trach site anterior neck cdi Lungs: CTAB no wheezing, nonlabored Heart: Reg no mrg Abdomen: soft nondistended. +BT. gtube Extremities: Warm, dry, well-perfused. No extremity edema. diffuse sarcopenia present. Photo of sacral decubitus wound reviewed - surrounding dermatitis much improved. wound base pink granulation tissue, no areas of necrosis or exudate Neuro: eyes open with roving eye movements, did not track to voice or exam. he has flexion contractures of both wrists, right elbow, bilateral lower extremities Psych: unable to assess Results & Data Results & Data Vital Signs (Past 12 Hours) Vital Signs Temp Pulse Resp BP Pulse Ox O2 Del Method O2 Flow Rate 10/22/23 08:15 Trach Collar 6 10/22/23 07:48 36.8 C 65 17 98/64 L 100 Trach Collar 10/22/23 07:12 84 18 98 Trach Collar 6 FiO2 10/22/23 08:15 10/22/23 07:48 10/22/23 07:12 28 PG Care Time/CCT Total # of Minutes Spent Total Time Spent with Patient: Total time spent is greater than 50% in coordination of care (as documented) at patient's floor/unit and/or counseling patient: Coding Level of Care Code 22634 SUB INP/OBS CARE 25MIN Diagnoses Bacteremia due to Pseudomonas R78.81; B96.5 Catheter-associated urinary tract infection T83.511A; N39.0 Decubitus ulcer of sacral region, stage 4 L89.154 Chronic osteomyelitis of sacrum M86.68 Hospital acquired PNA J18.9; Y95 Severe protein-calorie malnutrition E43 History of DVT (deep vein thrombosis) Z86.718 History of nontraumatic rupture of cerebral aneurysm Z86.79 Autonomic dysfunction G90.9 Cardiomyopathy I42.9 Tracheostomy status Z93.0 Candidiasis B37.9 Onychia of toe L03.039
--- NOTE | 2023-10-23 19:13 | Hospitalist Progress Note ---
Date of Service October 23, 2023 Assessment & Plan (1) Bacteremia due to Pseudomonas: Plan: source - likely the urine repeat blood cx's 10/11 finalized negative appreciate ID consult/recs Plan: continue cefepime for a course of 14 days start date 10/12/23 (date of first negative blood culture) end date 10/25/23 (2) Catheter-associated urinary tract infection: Plan: 2nd pseudomonas lewis exchanged on 10/07 (coude catheter by report) unfortunately this was before his UTI was discovered would exchange the lewis again later in his abx course - perhaps remove tomorrow and replace if retention there has been talk about him transitioning to condom cath but he has neurogenic bladder; attempts to allow condom cath earlier in the hospital stay unsuccessful; this was met with significant urinary retention (3) Decubitus ulcer of sacral region, stage 4: Plan: Present on admission. - s/p debridement in the OR by Dr Issa on 07/31/23. - Wound vac placed on 08/01. Wound vac then changed to a pulsating irrigation woundvac on 08/21/23. - Due to lack of improvement and worsening appearance of his ulcer he underwent repeat debridement in the OR by Dr Dorsey on 08/25/23. - on 09/04 the woundvac was removed due to candidiasis (extensive) in sacral area. Treated with fluconazole. Cont current woundvac and defer any other recs regarding such to Sherie Jesus and the woundcare team adherent material of woundvac was changed to try and avoid ongoing dermatitis (different material to be used per Sherie) -discussed with Sherie Jesus RN today - blistering/dermatitis definitely improved, continued to have very slow progress with healing, regresses whenever vac needs to be off appreciate wound care team assistance (4) Chronic osteomyelitis of sacrum: Plan: intra-op culture from 07/31 with MSSA, pseudomonas, providencia, and anaerobes. Sacral bone biopsy 08/24 with VRE and 2-week course of linezolid completed 09/13/23. He has not been on dedicated abx since August for the sacrum continue local wound care with woundvac as in #3 above (5) Hospital acquired PNA: Plan: 07/2023 LLL pneumonia with L sided mucus plugging treated with bronchoscopies -- resolved. Due to pseudomonas infection. See previous prog notes for chronology of events (10/19 and earlier) (6) Severe protein-calorie malnutrition: Plan: much improved. Continue current nutrition recommendations - appreciate their recs. Current nutritional plan: Peg tube replaced 09/25 - Dr Rhodes Most recent albumin >3.5 Weight is stable (7) History of DVT (deep vein thrombosis): Plan: RLE DVT discovered 11/2022 in [place] treated with apixaban 5 mg bid through winter 2023. Eliquis dosage reduced to 2.5mg BID earlier in this hospitalization for prophylaxis (8) History of nontraumatic rupture of cerebral aneurysm: Plan: Patient is nonverbal at baseline with chronic contractures in all 4 extremities, has eye opening, roving eye movements, grimacing, sleep-wake cycles. Functional quadriplegia. CT head shows encephalomalacia and good shunt placement . He unfortunately suffered a ruptured brain aneurysm and SAH 08/2022. Status post craniotomy and evacuation of hematoma. 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 He has a ventriculoperitoneal shunt in place. Known resultant severe autonomic dysfunction / paroxysmal sympathetic hyperactivity / autonomic storm which is controlled on medications and has the potential to be confused with sepsis. Continue current medical management (9) Autonomic dysfunction: Plan: No recent issues. Continue dantrolene and bromocriptine. Continue gabapentin and baclofen for spasticity, Continue scop patch and tylenol scheduled. (10) Cardiomyopathy: Plan: last echo 07/11/23 - low normal EF 50-55%. No acute current problems. Continue metoprolol 12.5mg BID. (11) Tracheostomy status: Plan: cont local trach care. 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 09/10/23 - trach changed to 8.0 uncuffed tracheostomy tube by Dr. Street (12) Candidiasis: Plan: multiple locations - back/buttocks, groin, R axillary region. Cont anti-yeast topical powders. Completed 7d diflucan 09/11 with significant improvement Was placed back on diflucan again in September; ID recommending against such unless absolutely necessary (13) Onychia of toe: Plan: right great toe very mild does not need I/D, etc bactroban ointment BID x 7 days Plan Maintenance issues: lewis changed 10/07 - has active UTI - change later this week trach changed 3/20 peg tube changed 09/25 updated pt's mother 10/17/23 and 10/19/23 Admission and Anticipated Discharge Date Admission Date: July 18, 2023 Subjective No events Nonverbal Physical Exam 2 Physical Exam: PHYSICAL EXAMINATION Last 24h vital signs reviewed, see documentation in flowsheet General: eyes closed HEENT: R skull deformity unchanged. trach site anterior neck cdi Lungs: CTAB no wheezing, nonlabored Heart: Reg no mrg Abdomen: soft nondistended. +BT. gtube site cdi no erythema Extremities: Warm, dry, well-perfused. No extremity edema. diffuse sarcopenia present. Neuro: eyes closed, did not respond to voice or exam. he has flexion contractures of both wrists, right elbow, bilateral lower extremities Psych: unable to assess Results & Data Results & Data Vital Signs (Past 12 Hours) Vital Signs Temp Pulse Pulse Resp BP Pulse Ox O2 Del Method 10/23/23 18:51 88 18 98 Trach Collar 10/23/23 15:16 37.2 C 73 16 107/69 97 Trach Collar 10/23/23 09:48 Trach Collar 10/23/23 09:00 36.4 C L 66 16 103/67 99 Room Air 10/23/23 07:20 78 18 97 Trach Collar O2 Flow Rate FiO2 10/23/23 18:51 6 28 10/23/23 15:16 6 28 10/23/23 09:48 6 10/23/23 09:00 10/23/23 07:20 28 PG Care Time/CCT Total # of Minutes Spent Total Time Spent with Patient: Total time spent is greater than 50% in coordination of care (as documented) at patient's floor/unit and/or counseling patient: Coding Level of Care Code 53089 SUB INP/OBS CARE 07/17MIN Diagnoses Bacteremia due to Pseudomonas R78.81; B96.5 Catheter-associated urinary tract infection T83.511A; N39.0 Decubitus ulcer of sacral region, stage 4 L89.154 Chronic osteomyelitis of sacrum M86.68 Hospital acquired PNA J18.9; Y95 Severe protein-calorie malnutrition E43 History of DVT (deep vein thrombosis) Z86.718 History of nontraumatic rupture of cerebral aneurysm Z86.79 Autonomic dysfunction G90.9 Cardiomyopathy I42.9 Tracheostomy status Z93.0 Candidiasis B37.9 Onychia of toe L03.039
--- NOTE | 2023-10-24 14:15 | Hospitalist Progress Note ---
Date of Service October 24, 2023 Assessment & Plan (1) Bacteremia due to Pseudomonas: Plan: source - likely the urine repeat blood cx's 10/11 finalized negative appreciate ID consult/recs Plan: continue cefepime for a course of 14 days start date 10/12/23 (date of first negative blood culture) end date 10/25/23 (2) Catheter-associated urinary tract infection: Plan: 2nd pseudomonas lewis exchanged on 10/07 (coude catheter by report) exchange lewis there has been talk about him transitioning to condom cath but he has neurogenic bladder; attempts to allow condom cath earlier in the hospital stay unsuccessful; this was met with significant urinary retention -has a lot of groin candidiasis and still with dermatitis on buttocks, sacral wound covered by vac - would all worsen if soiled with urine. consider condom catheter trial when skin issues improve (3) Decubitus ulcer of sacral region, stage 4: Plan: Present on admission. - s/p debridement in the OR by Dr Issa on 07/31/23. - Wound vac placed on 08/01. Wound vac then changed to a pulsating irrigation woundvac on 08/21/23. - Due to lack of improvement and worsening appearance of his ulcer he underwent repeat debridement in the OR by Dr Dorsey on 08/25/23. - on 09/04 the woundvac was removed due to candidiasis (extensive) in sacral area. Treated with fluconazole. Cont current woundvac and defer any other recs regarding such to Sherie Jesus and the woundcare team adherent material of woundvac was changed to try and avoid ongoing dermatitis (different material to be used per Sherie) -reviewed photo of sacral wound 10/23 - appears similar, granulation tissue, buttock dermatitis L>R side appreciate wound care team assistance (4) Chronic osteomyelitis of sacrum: Plan: intra-op culture from 07/31 with MSSA, pseudomonas, providencia, and anaerobes. Sacral bone biopsy 08/24 with VRE and 2-week course of linezolid completed 09/13/23. He has not been on dedicated abx since August for the sacrum continue local wound care with woundvac as in #3 above (5) Hospital acquired PNA: Plan: 07/2023 LLL pneumonia with L sided mucus plugging treated with bronchoscopies -- resolved. Due to pseudomonas infection. See previous prog notes for chronology of events (10/19 and earlier) (6) Severe protein-calorie malnutrition: Plan: much improved. Continue current nutrition recommendations - appreciate their recs. Current nutritional plan: Peg tube replaced 09/25 - Dr Rhodes Most recent albumin >3.5 Weight is stable (7) History of DVT (deep vein thrombosis): Plan: RLE DVT discovered 11/2022 in [place] treated with apixaban 5 mg bid through winter 2023. Eliquis dosage reduced to 2.5mg BID earlier in this hospitalization for prophylaxis (8) History of nontraumatic rupture of cerebral aneurysm: Plan: Patient is nonverbal at baseline with chronic contractures in all 4 extremities, has eye opening, roving eye movements, grimacing, sleep-wake cycles. Functional quadriplegia. CT head shows encephalomalacia and good shunt placement . He unfortunately suffered a ruptured brain aneurysm and SAH 08/2022. Status post craniotomy and evacuation of hematoma. 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 He has a ventriculoperitoneal shunt in place. Known resultant severe autonomic dysfunction / paroxysmal sympathetic hyperactivity / autonomic storm which is controlled on medications and has the potential to be confused with sepsis. Continue current medical management (9) Autonomic dysfunction: Plan: No recent issues. Continue dantrolene and bromocriptine. Continue gabapentin and baclofen for spasticity, Continue scop patch and tylenol scheduled. (10) Cardiomyopathy: Plan: last echo 07/11/23 - low normal EF 50-55%. No acute current problems. Continue metoprolol 12.5mg BID. (11) Tracheostomy status: Plan: cont local trach care. needs to continue bid NAC or saline nebs to prevent mucus plugging intermediate. 09/10/23 - trach changed to 8.0 uncuffed tracheostomy tube by Dr. Street (12) Candidiasis: Plan: multiple locations - back/buttocks, groin, R axillary region. Cont anti-yeast topical powders. Completed 7d diflucan 09/11 with significant improvement Was placed back on diflucan again in September; ID recommending against such unless absolutely necessary (13) Onychia of toe: Plan: right great toe very mild does not need I/D, etc bactroban ointment BID x 7 days Plan Maintenance issues: lewis changed 10/07 - has active UTI - change later this week trach changed 3/20 peg tube changed 09/25 updated pt's mother 10/17/23 and 10/19/23 Admission and Anticipated Discharge Date Admission Date: July 18, 2023 Subjective No events nonverbal Physical Exam 2 Physical Exam: PHYSICAL EXAMINATION Last 24h vital signs reviewed, see documentation in flowsheet General: eyes open HEENT: R skull deformity unchanged. trach site anterior neck cdi Lungs: CTAB no wheezing, nonlabored Heart: Reg no mrg Abdomen: soft nondistended. +BT. gtube site cdi no erythema Extremities: Warm, dry, well-perfused. No extremity edema. diffuse sarcopenia present. Neuro: eyes open, roving eye movements. he has flexion contractures of both wrists, right elbow, bilateral lower extremities Psych: unable to assess Results & Data Results & Data Vital Signs (Past 12 Hours) Vital Signs Temp Pulse Resp BP Pulse Ox O2 Del Method O2 Flow Rate 10/24/23 07:40 6 10/24/23 07:29 70 16 99 Trach Collar 6 10/24/23 07:23 37.3 C 73 16 108/73 100 Trach Collar 6 FiO2 10/24/23 07:40 10/24/23 07:29 28 10/24/23 07:23 28 PG Care Time/CCT Total # of Minutes Spent Total Time Spent with Patient: Total time spent is greater than 50% in coordination of care (as documented) at patient's floor/unit and/or counseling patient: Coding Level of Care Code 70656 SUB INP/OBS CARE 07/17MIN Diagnoses Bacteremia due to Pseudomonas R78.81; B96.5 Catheter-associated urinary tract infection T83.511A; N39.0 Decubitus ulcer of sacral region, stage 4 L89.154 Chronic osteomyelitis of sacrum M86.68 Hospital acquired PNA J18.9; Y95 Severe protein-calorie malnutrition E43 History of DVT (deep vein thrombosis) Z86.718 History of nontraumatic rupture of cerebral aneurysm Z86.79 Autonomic dysfunction G90.9 Cardiomyopathy I42.9 Tracheostomy status Z93.0 Candidiasis B37.9 Onychia of toe L03.039
--- NOTE | 2023-10-25 16:51 | Hospitalist Progress Note ---
Date of Service October 25, 2023 Assessment & Plan (1) Bacteremia due to Pseudomonas: Plan: source - likely the urine repeat blood cx's 10/11 finalized negative appreciate ID consult/recs Treated with cefepime for 14 days 10/11 - 10/25/23 -stop cefepime tonight (2) Catheter-associated urinary tract infection: Plan: 2nd pseudomonas lewis exchanged on 10/07 (coude catheter by report) exchanged lewis 10/23 Ry's mom at bedside today, updated, requesting condom catheter trial, says he's had very infrequent issues with leakage/catheter falling off in past (3) Decubitus ulcer of sacral region, stage 4: Plan: Present on admission. - s/p debridement in the OR by Dr Issa on 07/31/23. - Wound vac placed on 08/01. Wound vac then changed to a pulsating irrigation woundvac on 08/21/23. - Due to lack of improvement and worsening appearance of his ulcer he underwent repeat debridement in the OR by Dr Dorsey on 08/25/23. - on 09/04 the woundvac was removed due to candidiasis (extensive) in sacral area. Treated with fluconazole. Cont current woundvac and defer any other recs regarding such to Sherie Jesus and the woundcare team adherent material of woundvac was changed to try and avoid ongoing dermatitis (different material to be used per Sherie) -reviewed photo of sacral wound 10/23 - appears similar, granulation tissue, buttock dermatitis L>R side appreciate wound care team assistance (4) Chronic osteomyelitis of sacrum: Plan: intra-op culture from 07/31 with MSSA, pseudomonas, providencia, and anaerobes. Sacral bone biopsy 08/24 with VRE and 2-week course of linezolid completed 09/13/23. He has not been on dedicated abx since August for the sacrum continue local wound care with woundvac as in #3 above (5) Hospital acquired PNA: Plan: 07/2023 LLL pneumonia with L sided mucus plugging treated with bronchoscopies -- resolved. Due to pseudomonas infection. See previous prog notes for chronology of events (10/19 and earlier) (6) Severe protein-calorie malnutrition: Plan: much improved. Continue current nutrition recommendations - appreciate their recs. Current nutritional plan: Peg tube replaced 09/25 - Dr Case Most recent albumin >3.5 Weight is stable (7) History of DVT (deep vein thrombosis): Plan: RLE DVT discovered 11/2022 in [place] treated with apixaban 5 mg bid through winter 2023. Eliquis dosage reduced to 2.5mg BID earlier in this hospitalization for prophylaxis (8) History of nontraumatic rupture of cerebral aneurysm: Plan: Patient is nonverbal at baseline with chronic contractures in all 4 extremities, has eye opening, roving eye movements, grimacing, sleep-wake cycles. Functional quadriplegia. CT head shows encephalomalacia and good shunt placement . He unfortunately suffered a ruptured brain aneurysm and SAH 08/2022. Status post craniotomy and evacuation of hematoma. 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 He has a ventriculoperitoneal shunt in place. Known resultant severe autonomic dysfunction / paroxysmal sympathetic hyperactivity / autonomic storm which is controlled on medications and has the potential to be confused with sepsis. Continue current medical management (9) Autonomic dysfunction: Plan: No recent issues. Continue dantrolene and bromocriptine. Continue gabapentin and baclofen for spasticity, Continue scop patch and tylenol scheduled. (10) Cardiomyopathy: Plan: last echo 07/11/23 - low normal EF 50-55%. No acute current problems. Continue metoprolol 12.5mg BID. (11) Tracheostomy status: Plan: cont local trach care. 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 09/10/23 - trach changed to 8.0 uncuffed tracheostomy tube by Dr. Street (12) Candidiasis: Plan: multiple locations - back/buttocks, groin, R axillary region. Cont anti-yeast topical powders. Completed 7d diflucan 09/11 with significant improvement Was placed back on diflucan again in September; ID recommending against such unless absolutely necessary (13) Onychia of toe: Plan: right great toe very mild does not need I/D, etc bactroban ointment BID x 7 days Plan Maintenance issues: lewis changed 10/23 trach changed 09/09 peg tube changed 09/25 updated pt's mother 10/24 Admission and Anticipated Discharge Date Admission Date: July 18, 2023 Subjective nonverbal but appears more alert right now his mom is at bedside interacting with him Physical Exam 2 Physical Exam: PHYSICAL EXAMINATION Last 24h vital signs reviewed, see documentation in flowsheet General: eyes open HEENT: R skull deformity unchanged. trach site anterior neck cdi Lungs: CTAB no wheezing, nonlabored Heart: Reg no mrg Abdomen: soft nondistended. +BT. gtube site cdi no erythema Extremities: Warm, dry, well-perfused. No extremity edema. diffuse sarcopenia present. Neuro: eyes open, seems more alert with more eye movements and lip movements. he has flexion contractures of both wrists, right elbow, bilateral lower extremities Psych: unable to assess Results & Data Results & Data Vital Signs (Past 12 Hours) Vital Signs Temp Pulse Resp BP Pulse Ox O2 Del Method O2 Flow Rate 10/25/23 15:21 36.8 C 73 16 100/65 96 Room Air 10/25/23 08:00 Trach Collar 10/25/23 07:19 37 C 74 16 104/68 98 Room Air 10/25/23 07:19 18 96 Trach Collar 6 FiO2 10/25/23 15:21 10/25/23 08:00 10/25/23 07:19 10/25/23 07:19 28 PG Care Time/CCT Total # of Minutes Spent Total Time Spent with Patient: Total time spent is greater than 50% in coordination of care (as documented) at patient's floor/unit and/or counseling patient: Coding Level of Care Code 12197 SUB INP/OBS CARE 07/17MIN Diagnoses Bacteremia due to Pseudomonas R78.81; B96.5 Catheter-associated urinary tract infection T83.511A; N39.0 Decubitus ulcer of sacral region, stage 4 L89.154 Chronic osteomyelitis of sacrum M86.68 Hospital acquired PNA J18.9; Y95 Severe protein-calorie malnutrition E43 History of DVT (deep vein thrombosis) Z86.718 History of nontraumatic rupture of cerebral aneurysm Z86.79 Autonomic dysfunction G90.9 Cardiomyopathy I42.9 Tracheostomy status Z93.0 Candidiasis B37.9 Onychia of toe L03.039
--- NOTE | 2023-10-26 14:51 | Hospitalist Progress Note ---
Date of Service October 26, 2023 Assessment & Plan (1) Bacteremia due to Pseudomonas: Plan: Pseudomonas bacteremia 10/09. ID consulted. 10/11 blood cultures negative. Treated with cefepime for 14d (10/11-10/24). Source thought to be CAUTI. Resolved (2) Catheter-associated urinary tract infection: Plan: Treated with cefepime for 14d (10/11-10/24). Catheter exchanged 10/24 (3) Decubitus ulcer of sacral region, stage 4: Plan: Present on admission. - s/p debridement in the OR by Dr Issa on 07/31/23. - Wound vac placed on 08/01. Wound vac then changed to a pulsating irrigation woundvac on 08/21/23. - Due to lack of improvement and worsening appearance of his ulcer he underwent repeat debridement in the OR by Dr Dorsey on 08/25/23. - on 09/04 the woundvac was removed due to candidiasis (extensive) in sacral area. Treated with fluconazole. Cont current woundvac and defer any other recs regarding such to Sherie Jesus and the woundcare team adherent material of woundvac was changed to try and avoid ongoing dermatitis (different material to be used per Sherie) -reviewed photo of sacral wound 10/23 - appears similar, granulation tissue, buttock dermatitis L>R side appreciate wound care team assistance (4) Chronic osteomyelitis of sacrum: Plan: intra-op culture from 07/31 with MSSA, pseudomonas, providencia, and anaerobes. Sacral bone biopsy 08/24 with VRE and 2-week course of linezolid completed 09/13/23. He has not been on dedicated abx since August for the sacrum continue local wound care with woundvac as in #3 above (5) Hospital acquired PNA: Plan: 07/2023 LLL pneumonia with L sided mucus plugging treated with bronchoscopies -- resolved. Due to pseudomonas infection. See previous prog notes for chronology of events (10/19 and earlier) (6) Severe protein-calorie malnutrition: Plan: much improved. Continue current nutrition recommendations - appreciate their recs. Current nutritional plan: Peg tube replaced 09/25 - Dr Rhodes Most recent albumin >3.5 Weight is stable (7) History of DVT (deep vein thrombosis): Plan: RLE DVT discovered 11/2022 in [place] treated with apixaban 5 mg bid through winter 2023. Eliquis dosage reduced to 2.5mg BID earlier in this hospitalization for prophylaxis (8) History of nontraumatic rupture of cerebral aneurysm: Plan: Patient is nonverbal at baseline with chronic contractures in all 4 extremities, has eye opening, roving eye movements, grimacing, sleep-wake cycles. Functional quadriplegia. CT head shows encephalomalacia and good shunt placement . He unfortunately suffered a ruptured brain aneurysm and SAH 08/2022. Status post craniotomy and evacuation of hematoma. 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 He has a ventriculoperitoneal shunt in place. Known resultant severe autonomic dysfunction / paroxysmal sympathetic hyperactivity / autonomic storm which is controlled on medications and has the potential to be confused with sepsis. Continue current medical management (9) Autonomic dysfunction: Plan: No recent issues. Continue dantrolene and bromocriptine. Continue gabapentin and baclofen for spasticity, Continue scop patch and tylenol scheduled. (10) Cardiomyopathy: Plan: last echo 07/11/23 - low normal EF 50-55%. No acute current problems. Continue metoprolol 12.5mg BID. (11) Tracheostomy status: Plan: cont local trach care. 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 09/10/23 - trach changed to 8.0 uncuffed tracheostomy tube by Dr. Street (12) Candidiasis: Plan: multiple locations - back/buttocks, groin, R axillary region. Cont anti-yeast topical powders. Completed 7d diflucan 09/11 with significant improvement Was placed back on diflucan again in September; ID recommending against such unless absolutely necessary (13) Onychia of toe: Plan: right great toe - improved, very mild bactroban ointment BID x 7 days Plan Maintenance issues: lewis changed 10/23 trach changed 09/09 peg tube changed 09/25 updated pt's mother 10/24 - she requests condom cath trial again. Has neurogenic bladder but has been able to be maintained on condom cath in the past. gentle bladder pressure often makes him void. On the other hand has had significant urinary retention issues in hospital. Will try condom cath trial with monitoring of PVR by bladder scan. If significant leakage or retention problems will have to go back to lewis - groin candidiasis, buttock dermatitis, sacral wound/vac need to be kept dry. Admission and Anticipated Discharge Date Admission Date: July 18, 2023 Subjective eyes closed, appears to be sleeping no events Physical Exam 2 Physical Exam: PHYSICAL EXAMINATION Last 24h vital signs reviewed, see documentation in flowsheet General: eyes closed, otherwise exam unchanged 10/25: HEENT: R skull deformity unchanged. trach site anterior neck cdi Lungs: CTAB no wheezing, nonlabored Heart: Reg no mrg Abdomen: soft nondistended. +BT. gtube site cdi no erythema Extremities: Warm, dry, well-perfused. No extremity edema. diffuse sarcopenia present. Neuro: sleeping/eyes closed. he has flexion contractures of both wrists, right elbow, bilateral lower extremities. R great toe paronychia appears to be resolving Psych: unable to assess Results & Data Results & Data Vital Signs (Past 12 Hours) Vital Signs Temp Pulse Pulse Resp BP Pulse Ox O2 Del Method 10/26/23 08:04 80 14 100 Trach Collar 10/26/23 08:00 Trach Collar 10/26/23 07:07 36.9 C 79 16 103/70 100 Trach Collar FiO2 10/26/23 08:04 28 10/26/23 08:00 10/26/23 07:07 28 PG Care Time/CCT Total # of Minutes Spent Total Time Spent with Patient: Total time spent is greater than 50% in coordination of care (as documented) at patient's floor/unit and/or counseling patient: Coding Level of Care Code 70576 SUB INP/OBS CARE 2/35MIN Diagnoses Bacteremia due to Pseudomonas R78.81; B96.5 Catheter-associated urinary tract infection T83.511A; N39.0 Decubitus ulcer of sacral region, stage 4 L89.154 Chronic osteomyelitis of sacrum M86.68 Hospital acquired PNA J18.9; Y95 Severe protein-calorie malnutrition E43 History of DVT (deep vein thrombosis) Z86.718 History of nontraumatic rupture of cerebral aneurysm Z86.79 Autonomic dysfunction G90.9 Cardiomyopathy I42.9 Tracheostomy status Z93.0 Candidiasis B37.9 Onychia of toe L03.039
[2023-10-27 06:27] LABS: Albumin Level 4.1 gm/dl (3.4-5.0); Anion Gap 9 (3-11); BUN Creatinine Ratio 86.8 (10-20); Blood Urea Nitrogen 33 mg/dl (6-23); Carbon Dioxide 29 mmol/L (21-32); Chloride 102 mmol/L (98-107); Creatinine Clr Calc Pharmacy 221.4 ml/min; Est GFR (African American) > 150.0 ml/min; Est GFR (Non-African American) > 150.0 ml/min; Glucose 107 mg/dl (70-99(Fasting)); Potassium 3.9 mmol/L (3.5-5.1); Sodium 140 mmol/L (136-145)
[2023-10-27 06:55] LABS: Hematocrit (blood only) 35.5 % (42.0-52.0); Hemoglobin 11.2 g/dl (14.0-18.0); Mean Corpuscular Hgb Conc 31.5 g/dL (32.0-36.0); Mean Corpuscular Volume 95.2 fL (80.0-100.0); Mean Platelet Volume 12.2 fL (9.4-12.4); Platelet Count 212 K/uL (130-400); RDW Coefficient of Variation 15.3 % (11.5-14.5); RDW Standard Deviation 52.6 fL (36.4-46.3); Red Blood Count 3.73 M/uL (4.70-6.10); White Blood Count 5.81 K/ul (4.8-10.8)
--- NOTE | 2023-10-27 17:00 | Hospitalist Progress Note ---
Date of Service October 27, 2023 Assessment & Plan (1) Decubitus ulcer of sacral region, stage 4: Plan: Present on admission. - s/p debridement in the OR by Dr Issa on 07/31/23. - Wound vac placed on 08/01. Wound vac then changed to a pulsating irrigation woundvac on 08/21/23. - Due to lack of improvement and worsening appearance of his ulcer he underwent repeat debridement in the OR by Dr Dorsey on 08/25/23. - on 09/04 the woundvac was removed due to candidiasis (extensive) in sacral area. Treated with fluconazole. Cont current woundvac and defer any other recs regarding such to Sherie Jesus and the woundcare team adherent material of woundvac was changed to try and avoid ongoing dermatitis (different material to be used per Sherie) -reviewed photo of sacral wound 10/26 - appears similar, granulation tissue, buttock dermatitis L>R side seems improved appreciate wound care team assistance (2) Bacteremia due to Pseudomonas: Plan: Pseudomonas bacteremia 10/09. ID consulted. 10/11 blood cultures negative. Treated with cefepime for 14d (10/11-10/24). Source thought to be CAUTI. Resolved (3) Catheter-associated urinary tract infection: Plan: Treated with cefepime for 14d (10/11-10/24). Catheter exchanged 10/24 (4) Chronic osteomyelitis of sacrum: Plan: intra-op culture from 07/31 with MSSA, pseudomonas, providencia, and anaerobes. Sacral bone biopsy 08/24 with VRE and 2-week course of linezolid completed 09/13/23. He has not been on dedicated abx since August for the sacrum continue local wound care with woundvac as in #3 above (5) Hospital acquired PNA: Plan: 07/2023 LLL pneumonia with L sided mucus plugging treated with bronchoscopies -- resolved. Due to pseudomonas infection. See previous prog notes for chronology of events (10/19 and earlier) (6) Severe protein-calorie malnutrition: Plan: much improved. Continue current nutrition recommendations - appreciate their recs. Current nutritional plan: Peg tube replaced 09/25 - Dr Rhodes Most recent albumin 4.1 on 10/26 - improved Weight is stable (7) History of DVT (deep vein thrombosis): Plan: RLE DVT discovered 11/2022 in [place] treated with apixaban 5 mg bid through winter 2023. Eliquis dosage reduced to 2.5mg BID earlier in this hospitalization for prophylaxis (8) History of nontraumatic rupture of cerebral aneurysm: Plan: Patient is nonverbal at baseline with chronic contractures in all 4 extremities, has eye opening, roving eye movements, grimacing, sleep-wake cycles. Functional quadriplegia. CT head shows encephalomalacia and good shunt placement . He unfortunately suffered a ruptured brain aneurysm and SAH 08/2022. Status post craniotomy and evacuation of hematoma. 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 He has a ventriculoperitoneal shunt in place. Known resultant severe autonomic dysfunction / paroxysmal sympathetic hyperactivity / autonomic storm which is controlled on medications and has the potential to be confused with sepsis. Continue current medical management (9) Autonomic dysfunction: Plan: No recent issues. Continue dantrolene and bromocriptine. Continue gabapentin and baclofen for spasticity, Continue scop patch and tylenol scheduled. (10) Cardiomyopathy: Plan: last echo 07/11/23 - low normal EF 50-55%. No acute current problems. Continue metoprolol 12.5mg BID. (11) Tracheostomy status: Plan: cont local trach care. 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 09/10/23 - trach changed to 8.0 uncuffed tracheostomy tube by Dr. Street (12) Candidiasis: Plan: multiple locations - back/buttocks, groin, R axillary region. Cont anti-yeast topical powders. Completed 7d diflucan 09/11 with significant improvement Was placed back on diflucan again in September; ID recommending against such unless absolutely necessary (13) Onychia of toe: Plan: right great toe - improved, very mild bactroban ointment BID x 7 days Plan Maintenance issues: lewis removed 10/24 replaced with condom cath trach changed 09/09 peg tube changed 09/25 weekly labs - reviewed 10/26 - notable for improvement in albumin to 4.1, Hg back up to 11.2, Cr/electrolytes stable updated pt's mother 10/24 - she requests condom cath trial again. Has neurogenic bladder but has been able to be maintained on condom cath in the past. gentle bladder pressure often makes him void. On the other hand has had significant urinary retention issues in hospital. Will try condom cath trial with monitoring of PVR by bladder scan. If significant leakage or retention problems will have to go back to lewis - groin candidiasis, buttock dermatitis, sacral wound/vac need to be kept dry. -tolerating condom cath so far. bladder scan elevated overnight but <250 -consider trying to stop scopolamine patch - it is anticholinergic and will contribute to urinary retention, constipation, potentially can alter mental status. I think this was probably started for pulmonary secretions rather than for autonomic storming - pharmacologically it would not help with autonomic storming symptoms and would actually aggravate them by inhibiting the parasympathetic nervous system. Admission and Anticipated Discharge Date Admission Date: July 18, 2023 Subjective nonverbal tolerating condom cath so far. bladder scan elevated overnight but <250 Physical Exam 2 Physical Exam: PHYSICAL EXAMINATION Last 24h vital signs reviewed, see documentation in flowsheet General: exam unchanged 10/26: HEENT: R skull deformity unchanged. trach site anterior neck cdi Lungs: CTAB no wheezing, nonlabored Heart: Reg no mrg Abdomen: soft nondistended. +BT. gtube site cdi no erythema : condom cath, urine in bag clear yellow Photo of sacral wound reviewed today - base is clean with pink granulation tissue and no exudate or necrosis. Surrounding dermatitis on buttocks same to slightly better Extremities: Warm, dry, well-perfused. No extremity edema. diffuse sarcopenia present. Neuro: eyes open, roving eye movements. he has flexion contractures of both wrists, right elbow, bilateral lower extremities. R great toe paronychia appears to be resolved Psych: unable to assess Results & Data Results & Data Vital Signs (Past 12 Hours) Vital Signs Temp Pulse Resp BP Pulse Ox O2 Del Method O2 Flow Rate 10/27/23 15:25 36.7 C 76 17 107/71 100 Trach Collar 10/27/23 08:41 Trach Collar 7 10/27/23 07:29 36.9 C 70 16 116/79 100 Trach Collar 10/27/23 07:25 69 15 96 Trach Collar 7 FiO2 10/27/23 15:25 10/27/23 08:41 28 10/27/23 07:29 28 10/27/23 07:25 28 Laboratory Results 10/27/23 05:36 10/27/23 05:36 PG Care Time/CCT Total # of Minutes Spent Total Time Spent with Patient: Total time spent is greater than 50% in coordination of care (as documented) at patient's floor/unit and/or counseling patient: Coding Level of Care Code 30183 SUB INP/OBS CARE 2/35MIN Diagnoses Decubitus ulcer of sacral region, stage 4 L89.154 Bacteremia due to Pseudomonas R78.81; B96.5 Catheter-associated urinary tract infection T83.511A; N39.0 Chronic osteomyelitis of sacrum M86.68 Hospital acquired PNA J18.9; Y95 Severe protein-calorie malnutrition E43 History of DVT (deep vein thrombosis) Z86.718 History of nontraumatic rupture of cerebral aneurysm Z86.79 Autonomic dysfunction G90.9 Cardiomyopathy I42.9 Tracheostomy status Z93.0 Candidiasis B37.9 Onychia of toe L03.039
--- NOTE | 2023-10-28 20:15 | Hospitalist Progress Note ---
Date of Service October 28, 2023 Assessment & Plan (1) Bacteremia due to Pseudomonas: Plan: resolved s/p 14 days of IV cefepime --> abx d/c on 10/25/23 source - likely was the urine (2) Catheter-associated urinary tract infection: Plan: 2nd pseudomonas resolved lewis exchanged on 10/24/23, then at family request was removed on 10/26/23 and replaced with condom cath since the exchange he fortunately is not retaining urine like he had done earlier this admission and on previous hospital stays monitor closely (3) Decubitus ulcer of sacral region, stage 4: Plan: Present on admission. - s/p debridement in the OR by Dr Issa on 07/31/23. - Wound vac placed on 08/01. Wound vac then changed to a pulsating irrigation woundvac on 08/21/23. - Due to lack of improvement and worsening appearance of his ulcer he underwent repeat debridement in the OR by Dr Dorsey on 08/25/23. - on 09/04 the woundvac was removed due to candidiasis (extensive) in sacral area. Treated with fluconazole. Continues with woundvac exchanges M/W/F by Sherie Jesus woundvac is continuous, not pulsating at this time Wound slowly healing with ongoing granulation and no evidence on exam of infection (4) Chronic osteomyelitis of sacrum: Plan: intra-op culture from 07/31 with MSSA, pseudomonas, providencia, and anaerobes. Sacral bone biopsy 08/24 with VRE and 2-week course of linezolid completed 09/13/23. He has not been on dedicated abx since August for the sacrum continue local wound care with woundvac as in #3 above (5) Hospital acquired PNA: Plan: Earlier this admission --> LLL pneumonia -- resolved. Due to pseudomonas infection. Chronology of events: 08/01 - cxr with worsening infiltrates on left 08/03 - collapse LLL 08/03 - bronchoscopy by Dr Blancas with mucous plugging found in the left-sided bronchial tree s/p removal; 08/07 - s/p bronch by Dr Lock - minimal secretions LLL, no plugs; thick secretions in trach, however 08/09 - bronch cx - pseudomonas, intermediate resistance 08/09 - changed zosyn to cefepime 08/22 - cxr - ongoing LLL infiltrates/effusion - similar to previous imaging 09/17 - cxr showed improved aeration within the left lung base 10/11 - cxr with LLL infiltrate but stable trach changed to cuffless by Dr. Street 09/09 no issues at this time stable O2 sats on 6 L O2 (6) Severe protein-calorie malnutrition: Plan: much improved. Continue current nutrition recommendations - appreciate their recs. Current nutritional plan: Peg tube replaced 09/25 - Dr Rhodes Most recent albumin >4 Phos wnl Weight is stable (7) History of DVT (deep vein thrombosis): Plan: RLE DVT discovered 11/2022 in [place]. Had been on Eliquis 5mg BID since 12/12/22. Eliquis dosage reduced to 2.5mg BID earlier in this hospitalization for prophylaxis (8) History of nontraumatic rupture of cerebral aneurysm: Plan: Patient is nonverbal at baseline with chronic contractures in all 4 extremities, has eye opening, roving eye movements, grimacing, sleep-wake cycles. Functional quadriplegia. CT head shows encephalomalacia and good shunt placement . He unfortunately suffered a ruptured brain aneurysm and SAH 08/2022. Status post craniotomy and evacuation of hematoma. 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 He has a ventriculoperitoneal shunt in place. Known resultant severe autonomic dysfunction / paroxysmal sympathetic hyperactivity / autonomic storm which is controlled on medications and has the potential to be confused with sepsis. Continue current medical management (9) Autonomic dysfunction: Plan: No recent issues. Continue dantrolene and bromocriptine. Continue gabapentin and baclofen for spasticity, Continue scop patch and tylenol scheduled. (10) Cardiomyopathy: Plan: last echo 07/11/23 - low normal EF 50-55%. No acute current problems. Continue metoprolol 12.5mg BID. No evidence of decompensation. (11) Tracheostomy status: Plan: cont local trach care. 09/10/23 - trach changed to 8.0 uncuffed tracheostomy tube by Dr. Street no issues at this time. pulmonary status stable. (12) Candidiasis: Plan: has required topical anti-yeast powders & diflucan off/on during this stay overall this has improved significantly / resolved (13) Onychia of toe: Plan: resolve with bactroban ointment BID x 7 days Plan trach changed 09/09 peg tube changed 4/5 condom cath placed 10/25 (indwelling cath removed same date) social work continues to search for SNF for Mr Viveros updated pt's aunt at bedside today Admission and Anticipated Discharge Date Admission Date: July 18, 2023 Subjective no acute issues overnight condom cath still present and patient voiding spontaneously without retention no change in chronic O2 requirement pt's Aunt was at bedside during the visit Review of Systems 2 Review of Systems: Unobtainable due to cognitive status (nonverbal ) Physical Exam 2 Physical Exam: gen - NAD, eyes open head - deformity right side from prior craniotomy unchanged neck - no JVD; trach in place - clean mouth - MMM left ear pinnae - recent ulcer fully healed heart - RRR, s1 s2, no murmur lungs - CTA b/l abd - soft NT BS+; PEG tube site clean ext - no edema b/l, pulses 2+ b/l; contractures skin - right lateral thigh with circular areas of post-inflammatory hyperpigmentation from prior bullae/blisters - no changes neuro - contractures all extremities; generalized muscle wasting present Results & Data Results & Data Vital Signs (Past 12 Hours) Vital Signs Temp Pulse Resp BP Pulse Ox O2 Del Method FiO2 10/28/23 15:22 36.8 C 65 16 124/76 100 Trach Collar 28 PG Care Time/CCT Total # of Minutes Spent Total Time Spent with Patient: Total time spent is greater than 50% in coordination of care (as documented) at patient's floor/unit and/or counseling patient: Coding Level of Care Code 80289 SUB INP/OBS CARE /MIN Diagnoses Bacteremia due to Pseudomonas R78.81; B96.5 Catheter-associated urinary tract infection T83.511A; N39.0 Decubitus ulcer of sacral region, stage 4 L89.154 Chronic osteomyelitis of sacrum M86.68 Hospital acquired PNA J18.9; Y95 Severe protein-calorie malnutrition E43 History of DVT (deep vein thrombosis) Z86.718 History of nontraumatic rupture of cerebral aneurysm Z86.79 Autonomic dysfunction G90.9 Cardiomyopathy I42.9 Tracheostomy status Z93.0 Candidiasis B37.9 Onychia of toe L03.039
--- NOTE | 2023-10-29 21:49 | Hospitalist Progress Note ---
Date of Service October 29, 2023 Assessment & Plan (1) Decubitus ulcer of sacral region, stage 4: Plan: Present on admission. - s/p debridement in the OR by Dr Issa on 07/31/23. - Wound vac placed on 08/01. Wound vac then changed to a pulsating irrigation woundvac on 08/21/23. - Due to lack of improvement and worsening appearance of his ulcer he underwent repeat debridement in the OR by Dr Dorsey on 08/25/23. - on 09/04 the woundvac was removed due to candidiasis (extensive) in sacral area. Treated with fluconazole. Continues with woundvac exchanges M/W/F by Sherie Jesus woundvac is continuous, not pulsating at this time Wound slowly healing with ongoing granulation and no evidence on exam of infection most recent albumin was excellent (4.1) (2) Bacteremia due to Pseudomonas: Plan: resolved s/p 14 days of IV cefepime --> abx d/c on 10/25/23 source - likely was the urine (3) Catheter-associated urinary tract infection: Plan: 2nd pseudomonas resolved lewis exchanged on 10/24/23, then at family request was removed on 10/26/23 and replaced with condom cath since the exchange he fortunately is not retaining urine like he had done earlier this admission and on previous hospital stays monitor closely (4) Chronic osteomyelitis of sacrum: Plan: intra-op culture from 07/31 with MSSA, pseudomonas, providencia, and anaerobes. Sacral bone biopsy 08/24 with VRE and 2-week course of linezolid completed 09/13/23. He has not been on dedicated abx since August for the sacrum continue local wound care with woundvac as in #1 above (5) Hospital acquired PNA: Plan: resolved stable pulmonary status on his chronic O2 Earlier this admission --> LLL pneumonia. Due to pseudomonas infection. Chronology of events: 08/01 - cxr with worsening infiltrates on left 08/03 - collapse LLL 08/03 - bronchoscopy by Dr Blancas with mucous plugging found in the left-sided bronchial tree s/p removal; 08/07 - s/p bronch by Dr Lock - minimal secretions LLL, no plugs; thick secretions in trach, however 08/09 - bronch cx - pseudomonas, intermediate resistance 08/09 - changed zosyn to cefepime 08/22 - cxr - ongoing LLL infiltrates/effusion - similar to previous imaging 09/17 - cxr showed improved aeration within the left lung base 10/11 - cxr with LLL infiltrate but stable trach changed to cuffless by Dr. Street 09/09 no issues at this time stable O2 sats on 6 L O2 (6) Severe protein-calorie malnutrition: Plan: much improved. Continue current nutrition recommendations - appreciate their recs. Current nutritional plan: Peg tube replaced 09/25 - Dr Rhodes Most recent albumin >4 Phos wnl Weight is stable (7) History of DVT (deep vein thrombosis): Plan: RLE DVT discovered 11/2022 in [place]. Had been on Eliquis 5mg BID since 12/12/22. Eliquis dosage reduced to 2.5mg BID earlier in this hospitalization for prophylaxis (8) History of nontraumatic rupture of cerebral aneurysm: Plan: Patient is nonverbal at baseline with chronic contractures in all 4 extremities, has eye opening, roving eye movements, grimacing, sleep-wake cycles. Functional quadriplegia. CT head shows encephalomalacia and good shunt placement . He unfortunately suffered a ruptured brain aneurysm and SAH 08/2022. Status post craniotomy and evacuation of hematoma. 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 He has a ventriculoperitoneal shunt in place. Known resultant severe autonomic dysfunction / paroxysmal sympathetic hyperactivity / autonomic storm which is controlled on medications and has the potential to be confused with sepsis. Continue current medical management (9) Autonomic dysfunction: Plan: No recent issues. Continue dantrolene and bromocriptine. Continue gabapentin and baclofen for spasticity, Continue scop patch and tylenol scheduled. (10) Cardiomyopathy: Plan: last echo 07/11/23 - low normal EF 50-55%. No acute current problems. Continue metoprolol 12.5mg BID. No evidence of decompensation. (11) Tracheostomy status: Plan: cont local trach care. 09/10/23 - trach changed to 8.0 uncuffed tracheostomy tube by Dr. Street no issues at this time. pulmonary status stable. (12) Candidiasis: Plan: has required topical anti-yeast powders & diflucan off/on during this stay overall this has improved significantly / resolved (13) Onychia of toe: Plan: resolved with bactroban ointment BID x 7 days Plan trach changed 09/09 peg tube changed 09/25 condom cath placed 10/25 (indwelling cath removed same date) social work continues to search for SNF for Mr Felice updated pt's aunt at bedside yesterday Admission and Anticipated Discharge Date Admission Date: July 18, 2023 Subjective no events overnight tolerating tube feedings +soft stools; no diarrhea condom cath in place and he is voiding without significant retention woundvac exchanged today per his usual M/W/F scheduled Physical Exam 2 Physical Exam: gen - NAD, eyes open with some eye blinking and facial grimace at times as well (all chronic) head - deformity right side from prior craniotomy unchanged neck - no JVD; trach in place - clean mouth - MMM left ear pinnae - recent ulcer fully healed heart - RRR, s1 s2, no murmur lungs - CTA b/l abd - soft NT BS+; PEG tube site clean ext - no edema b/l, pulses 2+ b/l; contractures skin - right lateral thigh with circular areas of post-inflammatory hyperpigmentation from prior bullae/blisters - no changes neuro - contractures all extremities; generalized muscle wasting present Results & Data Results & Data Vital Signs (Past 12 Hours) Vital Signs Temp Pulse Resp BP Pulse Ox O2 Del Method O2 Flow Rate 10/29/23 19:46 76 18 97 Trach Collar 6 10/29/23 16:01 36.7 C 82 18 112/74 99 Room Air FiO2 10/29/23 19:46 28 10/29/23 16:01 PG Care Time/CCT Total # of Minutes Spent Total Time Spent with Patient: Total time spent is greater than 50% in coordination of care (as documented) at patient's floor/unit and/or counseling patient: Coding Level of Care Code 84948 SUB INP/OBS CARE 25MIN Diagnoses Decubitus ulcer of sacral region, stage 4 L89.154 Bacteremia due to Pseudomonas R78.81; B96.5 Catheter-associated urinary tract infection T83.511A; N39.0 Chronic osteomyelitis of sacrum M86.68 Hospital acquired PNA J18.9; Y95 Severe protein-calorie malnutrition E43 History of DVT (deep vein thrombosis) Z86.718 History of nontraumatic rupture of cerebral aneurysm Z86.79 Autonomic dysfunction G90.9 Cardiomyopathy I42.9 Tracheostomy status Z93.0 Candidiasis B37.9 Onychia of toe L03.039
--- NOTE | 2023-10-30 20:39 | Hospitalist Progress Note ---
Date of Service October 30, 2023 Assessment & Plan (1) Decubitus ulcer of sacral region, stage 4: Plan: Present on admission. - s/p debridement in the OR by Dr Issa on 07/31/23. - Wound vac placed on 08/01. Wound vac then changed to a pulsating irrigation woundvac on 08/21/23. - Due to lack of improvement and worsening appearance of his ulcer he underwent repeat debridement in the OR by Dr Dorsey on 08/25/23. - on 09/04 the woundvac was removed due to candidiasis (extensive) in sacral area. Treated with fluconazole. Woundvac ultimately placed back. Continues with woundvac exchanges M/W/F by Sherie Jesus woundvac is continuous, not pulsating at this time Wound slowly healing with ongoing granulation and no evidence on exam of infection most recent albumin was excellent (4.1) appreciate assistance by Ms Jesus and her wound care team (2) Bacteremia due to Pseudomonas: Plan: resolved s/p 14 days of IV cefepime --> abx d/c on 10/25/23 source - urinary tract (3) Catheter-associated urinary tract infection: Plan: late September 2023 2nd pseudomonas resolved lewis exchanged on 10/24/23, then at family request was removed on 10/26/23 and replaced with condom cath since the exchange he fortunately is not retaining urine like he had done earlier this admission and on previous hospital stays monitor closely (4) Chronic osteomyelitis of sacrum: Plan: intra-op culture from 07/31 with MSSA, pseudomonas, providencia, and anaerobes. Sacral bone biopsy 08/24 with VRE and 2-week course of linezolid completed 09/13/23. He has not been on dedicated abx since August for the sacrum continue woundvac as in #1 above (5) Hospital acquired PNA: Plan: resolved stable pulmonary status on his chronic O2 Earlier this admission --> LLL pneumonia. Due to pseudomonas infection. Chronology of events: 08/01 - cxr with worsening infiltrates on left 08/03 - collapse LLL 08/03 - bronchoscopy by Dr Blancas with mucous plugging found in the left-sided bronchial tree s/p removal; 08/07 - s/p bronch by Dr Lock - minimal secretions LLL, no plugs; thick secretions in trach, however 08/09 - bronch cx - pseudomonas, intermediate resistance 08/09 - changed zosyn to cefepime 08/22 - cxr - ongoing LLL infiltrates/effusion - similar to previous imaging 09/17 - cxr showed improved aeration within the left lung base 10/11 - cxr with LLL infiltrate but stable serial lung exams have been stable over the last few weeks trach changed to cuffless by Dr. Street 09/09 stable O2 sats on 6 L O2 (6) Severe protein-calorie malnutrition: Plan: much improved. Continue current nutrition recommendations - appreciate their recs. Current nutritional plan: Peg tube replaced 09/25 - Dr Rhodes Most recent albumin >4 Phos wnl Weight is stable (7) History of DVT (deep vein thrombosis): Plan: RLE DVT discovered 11/2022 in [place]. Had been on Eliquis 5mg BID since 12/12/22. Eliquis dosage reduced to 2.5mg BID earlier in this hospitalization for prophylaxis (8) History of nontraumatic rupture of cerebral aneurysm: Plan: Patient is nonverbal at baseline with chronic contractures in all 4 extremities, has eye opening, roving eye movements, grimacing, sleep-wake cycles. Functional quadriplegia. CT head shows encephalomalacia and good shunt placement . He unfortunately suffered a ruptured brain aneurysm and SAH 08/2022. Status post craniotomy and evacuation of hematoma. 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 He has a ventriculoperitoneal shunt in place. Known resultant severe autonomic dysfunction / paroxysmal sympathetic hyperactivity / autonomic storm which is controlled on medications and has the potential to be confused with sepsis. No issues with storming in quite some time. NO changes in any chronic meds for his autonomic storming (9) Autonomic dysfunction: Plan: No recent issues. Continue dantrolene and bromocriptine. Continue gabapentin and baclofen for spasticity, Continue scop patch and tylenol scheduled. (10) Cardiomyopathy: Plan: last echo 07/11/23 - low normal EF 50-55%. No acute current problems. Continue metoprolol 12.5mg BID. No evidence of decompensation. (11) Tracheostomy status: Plan: cont local trach care. 09/10/23 - trach changed to 8.0 uncuffed tracheostomy tube by Dr. Street (12) Candidiasis: Plan: has required topical anti-yeast powders & diflucan off/on during this stay overall this has improved significantly / resolved (13) Onychia of toe: Plan: RIGHT grea toe resolved with bactroban ointment BID can stop bactroban Plan trach changed 09/09 peg tube changed 09/25 condom cath placed 10/25 social work continues to search for SNF for Mr Felice do pt's aunt at bedside earlier this week recheck weekly labs in 2-3 days Admission and Anticipated Discharge Date Admission Date: July 18, 2023 Subjective no issues overnight no new concerns from staff still continues to avoid via condom cath without urinary retention Review of Systems 2 Review of Systems: Unobtainable due to cognitive status (nonverbal / vegetative state ) Physical Exam 2 Physical Exam: gen - NAD, eyes open head - deformity right side from prior craniotomy neck - no JVD; trach in place - clean mouth - MMM skin upper left chest - mild irritation from drooling/saliva heart - RRR, s1 s2, no murmur lungs - CTA b/l; mildly decreased BS on left abd - soft NT BS+; PEG tube site clean; mildly distended ext - no edema b/l, pulses 2+ b/l skin - right lateral thigh with circular areas of post-inflammatory hyperpigmentation from prior bullae/blisters - no new lesions; right great toe onychia - resolved neuro - contractures all extremities Results & Data Results & Data Vital Signs (Past 12 Hours) Vital Signs Temp Pulse Resp BP Pulse Ox O2 Del Method O2 Flow Rate 10/30/23 19:25 72 18 96 Trach Collar 6 10/30/23 14:39 37.0 C 113 H 18 106/72 92 Trach Collar 10/30/23 09:59 Trach Collar 7 FiO2 10/30/23 19:25 28 10/30/23 14:39 10/30/23 09:59 28 PG Care Time/CCT Total # of Minutes Spent Total Time Spent with Patient: Total time spent is greater than 50% in coordination of care (as documented) at patient's floor/unit and/or counseling patient: Coding Level of Care Code 45140 SUB INP/OBS CARE 07/17MIN Diagnoses Decubitus ulcer of sacral region, stage 4 L89.154 Bacteremia due to Pseudomonas R78.81; B96.5 Catheter-associated urinary tract infection T83.511A; N39.0 Chronic osteomyelitis of sacrum M86.68 Hospital acquired PNA J18.9; Y95 Severe protein-calorie malnutrition E43 History of DVT (deep vein thrombosis) Z86.718 History of nontraumatic rupture of cerebral aneurysm Z86.79 Autonomic dysfunction G90.9 Cardiomyopathy I42.9 Tracheostomy status Z93.0 Candidiasis B37.9 Onychia of toe L03.039
--- NOTE | 2023-10-31 20:22 | Hospitalist Progress Note ---
Date of Service October 31, 2023 Assessment & Plan (1) Decubitus ulcer of sacral region, stage 4: Plan: Present on admission. - s/p debridement in the OR by Dr Issa on 07/31/23. - Wound vac placed on 08/01. Wound vac then changed to a pulsating irrigation woundvac on 08/21/23. - Due to lack of improvement and worsening appearance of his ulcer he underwent repeat debridement in the OR by Dr Dorsey on 08/25/23. - on 09/04 the woundvac was removed due to candidiasis (extensive) in sacral area. Treated with fluconazole. Woundvac ultimately placed back. Continues with woundvac exchanges M/W/F by Sherie Jesus woundvac is continuous, not pulsating at this time Picture from today of ulcer reviewed in the chart Wound slowly healing with ongoing granulation and no evidence on exam of infection most recent albumin was excellent (4.1) appreciate assistance by Ms Ann Marie and her wound care team (2) Bacteremia due to Pseudomonas: Plan: resolved s/p 14 days of IV cefepime --> abx d/c on 10/25/23 source - urinary tract (3) Catheter-associated urinary tract infection: Plan: late September 2023 2nd pseudomonas resolved lewis exchanged on 10/24/23, then at family request was removed on 10/26/23 and replaced with condom cath since the exchange he fortunately is not retaining urine like he had done earlier this admission and on previous hospital stays monitor closely (4) Chronic osteomyelitis of sacrum: Plan: intra-op culture from 07/31 with MSSA, pseudomonas, providencia, and anaerobes. Sacral bone biopsy 08/24 with VRE and 2-week course of linezolid completed 09/13/23. He has not been on dedicated abx since August for the sacrum continue woundvac as in #1 above (5) Hospital acquired PNA: Plan: resolved stable pulmonary status on his chronic O2 Earlier this admission --> LLL pneumonia. Due to pseudomonas infection. Chronology of events: 08/01 - cxr with worsening infiltrates on left 08/03 - collapse LLL 08/03 - bronchoscopy by Dr Blancas with mucous plugging found in the left-sided bronchial tree s/p removal; 08/07 - s/p bronch by Dr Lock - minimal secretions LLL, no plugs; thick secretions in trach, however 08/09 - bronch cx - pseudomonas, intermediate resistance 08/09 - changed zosyn to cefepime 08/22 - cxr - ongoing LLL infiltrates/effusion - similar to previous imaging 09/17 - cxr showed improved aeration within the left lung base 10/11 - cxr with LLL infiltrate but stable serial lung exams have been stable over the last few weeks including today stable O2 sats, no increased O2 requirements (baseline 6 liters), tracheal secretions at baseline with no increase in quantity, stable vitals & afebrile can defer on cxr imaging today trach changed to cuffless by Dr. Street 09/09 (6) Severe protein-calorie malnutrition: Plan: much improved. Continue current nutrition recommendations - appreciate their recs. Current nutritional plan: Peg tube replaced 09/25 - Dr Rhodes Most recent albumin >4 Phos wnl Weight is stable (7) History of DVT (deep vein thrombosis): Plan: RLE DVT discovered 11/2022 in [place]. Had been on Eliquis 5mg BID since 12/12/22. Eliquis dosage reduced to 2.5mg BID earlier in this hospitalization for prophylaxis (8) History of nontraumatic rupture of cerebral aneurysm: Plan: Patient is nonverbal at baseline with chronic contractures in all 4 extremities, has eye opening, roving eye movements, grimacing, sleep-wake cycles. Functional quadriplegia. CT head shows encephalomalacia and good shunt placement . He unfortunately suffered a ruptured brain aneurysm and SAH 08/2022. Status post craniotomy and evacuation of hematoma. 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 He has a ventriculoperitoneal shunt in place. Known resultant severe autonomic dysfunction / paroxysmal sympathetic hyperactivity / autonomic storm which is controlled on medications and has the potential to be confused with sepsis. No issues with storming in quite some time. NO changes in any chronic meds for his autonomic storming (9) Autonomic dysfunction: Plan: No recent issues. Continue dantrolene and bromocriptine. Continue gabapentin and baclofen for spasticity, Continue scop patch and tylenol scheduled. (10) Cardiomyopathy: Plan: last echo 07/11/23 - low normal EF 50-55%. No acute current problems. Continue metoprolol 12.5mg BID. No evidence of decompensation. (11) Tracheostomy status: Plan: cont local trach care. 09/10/23 - trach changed to 8.0 uncuffed tracheostomy tube by Dr. Street (12) Candidiasis: Plan: has required topical anti-yeast powders & diflucan off/on during this stay overall this has improved significantly / resolved (13) Onychia of toe: Plan: RIGHT great toe resolved with bactroban ointment BID bactroban has been stopped Plan trach changed 09/09 peg tube changed 09/25 condom cath placed 10/25 social work continues to search for SNF for Mr Viveros updated pt's aunt at bedside earlier this week recheck weekly labs tomorrow AM for stability Admission and Anticipated Discharge Date Admission Date: July 18, 2023 Subjective received call from respiratory therapist that knows Mr Viveros well that nursing staff expressed concerns about his breathing nursing voiced concern that he was in distress respiratory performed their usual AM assessment -- they reported to me that his O2 requirement is at baseline; lungs are clear; no distress; secretions remain white-slightly yellow which is baseline; no increase in quantity of secretions woundvac exchanged today per wound care team tolerating tube feedings having soft BMs - last was this am Review of Systems 2 Review of Systems: Unobtainable due to cognitive status Physical Exam 2 Physical Exam: gen - NAD, sleeping; no respiratory distress; no coughing during the visit head - deformity right side from prior craniotomy neck - no JVD; trach in place - clean mouth - MMM skin upper left chest - mild irritation from drooling/saliva heart - RRR, s1 s2, no murmur lungs - CTA b/l; no rales, no wheeze, no course BS; respiratory rate is upper limits of normal but there is no increased work of breathing or distress; Left base airation is actually much improved from earlier this admission abd - soft NT BS+; PEG tube site clean; mildly distended (baseline) ext - no edema b/l, pulses 2+ b/l skin - right lateral thigh with circular areas of post-inflammatory hyperpigmentation from prior bullae/blisters - no new lesions; right great toe onychia - resolved neuro - contractures all extremities Results & Data Results & Data Vital Signs (Past 12 Hours) Vital Signs Temp Pulse Resp BP Pulse Ox O2 Del Method O2 Flow Rate 10/31/23 19:30 75 18 97 Trach Collar 6 10/31/23 14:47 36.8 C 65 16 105/68 99 Trach Collar 10/31/23 11:05 Trach Collar 28 10/31/23 09:28 76 106/71 FiO2 10/31/23 19:30 28 10/31/23 14:47 28 10/31/23 11:05 10/31/23 09:28 PG Care Time/CCT Total # of Minutes Spent Total Time Spent with Patient: Total time spent is greater than 50% in coordination of care (as documented) at patient's floor/unit and/or counseling patient: Coding Level of Care Code 90154 SUB INP/OBS CARE 07/17MIN Diagnoses Decubitus ulcer of sacral region, stage 4 L89.154 Bacteremia due to Pseudomonas R78.81; B96.5 Catheter-associated urinary tract infection T83.511A; N39.0 Chronic osteomyelitis of sacrum M86.68 Hospital acquired PNA J18.9; Y95 Severe protein-calorie malnutrition E43 History of DVT (deep vein thrombosis) Z86.718 History of nontraumatic rupture of cerebral aneurysm Z86.79 Autonomic dysfunction G90.9 Cardiomyopathy I42.9 Tracheostomy status Z93.0 Candidiasis B37.9 Onychia of toe L03.039
[2023-11-01 07:25] LABS: Hematocrit (blood only) 34.9 % (42.0-52.0); Mean Corpuscular Hemoglobin 29.7 pg (25.0-34.0); Mean Corpuscular Hgb Conc 31.5 g/dL (32.0-36.0); Mean Corpuscular Volume 94.3 fL (80.0-100.0); Mean Platelet Volume 12.4 fL (9.4-12.4); Platelet Count 215 K/uL (130-400); RDW Standard Deviation 51.8 fL (36.4-46.3); White Blood Count 4.39 K/ul (4.8-10.8)
[2023-11-01 07:55] LABS: Alanine Aminotransferase 12 U/L (7-52); Albumin Globulin Ratio 1.2 (0.9-2); Alkaline Phosphatase 54 U/L (34-104); Anion Gap 9 (3-11); Aspartate Aminotransferase 10 U/L (13-39); BUN Creatinine Ratio 74.4 (10-20); Bilirubin,Total 0.4 mg/dl (0.2-1.0); Blood Urea Nitrogen 29 mg/dl (6-23); Calcium 9.5 mg/dl (8.6-10.3); Carbon Dioxide 29 mmol/L (21-32); Chloride 103 mmol/L (98-107); Creatinine Clr Calc Pharmacy 219.9 ml/min; Est GFR (African American) > 150.0 ml/min; Est GFR (Non-African American) > 150.0 ml/min; Globulin 3.3 gm/dl (2.5-4.0); Glucose 107 mg/dl (70-99(Fasting)); Potassium 3.7 mmol/L (3.5-5.1); Sodium 141 mmol/L (136-145); Total Protein 7.3 gm/dl (6.0-8.3)
--- NOTE | 2023-11-01 19:33 | Hospitalist Progress Note ---
Date of Service November 01, 2023 Assessment & Plan (1) Decubitus ulcer of sacral region, stage 4: Plan: Present on admission. - s/p debridement in the OR by Dr Issa on 07/31/23. - Wound vac placed on 08/01. Wound vac then changed to a pulsating irrigation woundvac on 08/21/23. - Due to lack of improvement and worsening appearance of his ulcer he underwent repeat debridement in the OR by Dr Dorsey on 08/25/23. - on 09/04 the woundvac was removed due to candidiasis (extensive) in sacral area. Treated with fluconazole. Woundvac ultimately placed back. Continues with woundvac exchanges M/W/F by Sherie Jesus woundvac is continuous, not pulsating at this time Picture from today of ulcer reviewed in the chart Wound slowly healing with ongoing granulation and no evidence on exam of infection most recent albumin was excellent (4.1) appreciate assistance by Ms Ann Marie and her wound care team (2) Bacteremia due to Pseudomonas: Plan: resolved s/p 14 days of IV cefepime --> abx d/c on 10/25/23 source - urinary tract (3) Catheter-associated urinary tract infection: Plan: late September 2023 2nd pseudomonas resolved lewis exchanged on 10/24/23, then at family request was removed on 10/26/23 and replaced with condom cath since the exchange he fortunately is not retaining urine like he had done earlier this admission and on previous hospital stays monitor closely (4) Chronic osteomyelitis of sacrum: Plan: intra-op culture from 07/31 with MSSA, pseudomonas, providencia, and anaerobes. Sacral bone biopsy 08/24 with VRE and 2-week course of linezolid completed 09/13/23. He has not been on dedicated abx since August for the sacrum continue woundvac as in #1 above (5) Hospital acquired PNA: Plan: resolved stable pulmonary status on his chronic O2 Earlier this admission --> LLL pneumonia. Due to pseudomonas infection. Chronology of events: 08/01 - cxr with worsening infiltrates on left 08/03 - collapse LLL 08/03 - bronchoscopy by Dr Blancas with mucous plugging found in the left-sided bronchial tree s/p removal; 08/07 - s/p bronch by Dr Lock - minimal secretions LLL, no plugs; thick secretions in trach, however 08/09 - bronch cx - pseudomonas, intermediate resistance 08/09 - changed zosyn to cefepime 08/22 - cxr - ongoing LLL infiltrates/effusion - similar to previous imaging 09/17 - cxr showed improved aeration within the left lung base 10/11 - cxr with LLL infiltrate but stable serial lung exams have been stable over the last few weeks including today stable O2 sats, no increased O2 requirements (baseline 6 liters), tracheal secretions at baseline with no increase in quantity, stable vitals & afebrile can defer on cxr imaging today trach changed to cuffless by Dr. Street 09/09 (6) Severe protein-calorie malnutrition: Plan: much improved. Continue current nutrition recommendations - appreciate their recs. Current nutritional plan: Peg tube replaced 09/25 - Dr Rhodes Most recent albumin >4 Phos wnl Weight is stable (7) History of DVT (deep vein thrombosis): Plan: RLE DVT discovered 11/2022 in [place]. Had been on Eliquis 5mg BID since 12/12/22. Eliquis dosage reduced to 2.5mg BID earlier in this hospitalization for prophylaxis (8) History of nontraumatic rupture of cerebral aneurysm: Plan: Patient is nonverbal at baseline with chronic contractures in all 4 extremities, has eye opening, roving eye movements, grimacing, sleep-wake cycles. Functional quadriplegia. CT head shows encephalomalacia and good shunt placement . He unfortunately suffered a ruptured brain aneurysm and SAH 08/2022. Status post craniotomy and evacuation of hematoma. 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 He has a ventriculoperitoneal shunt in place. Known resultant severe autonomic dysfunction / paroxysmal sympathetic hyperactivity / autonomic storm which is controlled on medications and has the potential to be confused with sepsis. No issues with storming in quite some time. NO changes in any chronic meds for his autonomic storming (9) Autonomic dysfunction: Plan: No recent issues. Continue dantrolene and bromocriptine. Continue gabapentin and baclofen for spasticity, Continue scop patch and tylenol scheduled. (10) Cardiomyopathy: Plan: last echo 07/11/23 - low normal EF 50-55%. No acute current problems. Continue metoprolol 12.5mg BID. No evidence of decompensation. (11) Tracheostomy status: Plan: cont local trach care. 09/10/23 - trach changed to 8.0 uncuffed tracheostomy tube by Dr. Street (12) Candidiasis: Plan: has required topical anti-yeast powders & diflucan off/on during this stay overall this has improved significantly / resolved (13) Onychia of toe: Plan: RIGHT great toe resolved with bactroban ointment BID bactroban has been stopped his mother agreed that the toe looks good Plan trach changed 09/09 peg tube changed 09/25 condom cath placed 10/25 social work continues to search for SNF for Mr Viveros updated pt's mother at bedside today all labs today are stable minimally depressed wbc count - will simply follow Admission and Anticipated Discharge Date Admission Date: July 18, 2023 Subjective no events overnight pt's mother at bedside - gave update tolerating tube feedings no change in respiratory status overnight - remains on baseline O2 requirement last stool - earlier today; formed/soft Review of Systems 2 Review of Systems: Unobtainable due to cognitive status Physical Exam 2 Physical Exam: gen - NAD, sleeping; no respiratory distress head - deformity right side from prior craniotomy neck - no JVD; trach in place - clean mouth - MMM heart - RRR, s1 s2, no murmur lungs - CTA b/l; no rales, no wheeze abd - soft NT BS+; PEG tube site clean; mildly distended (baseline) ext - no edema b/l, pulses 2+ b/l skin - right lateral thigh with circular areas of post-inflammatory hyperpigmentation from prior bullae/blisters - no new lesions neuro - contractures all extremities Results & Data Results & Data Vital Signs (Past 12 Hours) Vital Signs Temp Pulse Resp BP Pulse Ox O2 Del Method FiO2 11/01/23 15:26 36.7 C 71 16 117/79 98 Trach Collar 28 Laboratory Results Laboratory Results - last 24 hr 11/01/23 06:52 WBC 4.39 L RBC 3.70 L Hgb 11.0 L Hct 34.9 L MCV 94.3 MCH 29.7 MCHC 31.5 L RDW Std Deviation 51.8 H RDW Coeff of Dario 15.0 H Plt Count 215 MPV 12.4 Sodium 141 Potassium 3.7 Chloride 103 Carbon Dioxide 29 Anion Gap 9 BUN 29 H Creatinine 0.39 L Est Cr Clr Drug Dosing 219.9 Est GFR ( Amer) > 150.0 Est GFR (Non-Af Amer) > 150.0 BUN/Creatinine Ratio 74.4 H Glucose 107 H Calcium 9.5 Total Bilirubin 0.4 AST 10 L ALT 12 Alkaline Phosphatase 54 Total Protein 7.3 Albumin 4.0 Globulin 3.3 Albumin/Globulin Ratio 1.2 PG Care Time/CCT Total # of Minutes Spent Total Time Spent with Patient: Total time spent is greater than 50% in coordination of care (as documented) at patient's floor/unit and/or counseling patient: Coding Level of Care Code 83875 SUB INP/OBS CARE 1/25MIN Diagnoses Decubitus ulcer of sacral region, stage 4 L89.154 Bacteremia due to Pseudomonas R78.81; B96.5 Catheter-associated urinary tract infection T83.511A; N39.0 Chronic osteomyelitis of sacrum M86.68 Hospital acquired PNA J18.9; Y95 Severe protein-calorie malnutrition E43 History of DVT (deep vein thrombosis) Z86.718 History of nontraumatic rupture of cerebral aneurysm Z86.79 Autonomic dysfunction G90.9 Cardiomyopathy I42.9 Tracheostomy status Z93.0 Candidiasis B37.9 Onychia of toe L03.039
--- NOTE | 2023-11-02 18:03 | Hospitalist Progress Note ---
Date of Service November 02, 2023 Assessment & Plan (1) Decubitus ulcer of sacral region, stage 4: Plan: Present on admission. - s/p debridement in the OR by Dr Issa on 07/31/23. - Wound vac placed on 08/01. Wound vac then changed to a pulsating irrigation woundvac on 08/21/23. - Due to lack of improvement and worsening appearance of his ulcer he underwent repeat debridement in the OR by Dr Dorsey on 08/25/23. - on 09/04 the woundvac was removed due to candidiasis (extensive) in sacral area. Treated with fluconazole. Woundvac ultimately placed back. Continues with woundvac exchanges M/W/F by Sherie Jesus woundvac is continuous, not pulsating at this time Picture from today of ulcer reviewed in the chart Wound slowly healing with ongoing granulation and no evidence on exam of infection most recent albumin was excellent (4.1) appreciate assistance by Ms Ann Marie and her wound care team (2) Bacteremia due to Pseudomonas: Plan: resolved s/p 14 days of IV cefepime --> abx d/c on 10/25/23 source - urinary tract (3) Catheter-associated urinary tract infection: Plan: late September 2023 2nd pseudomonas resolved lewis exchanged on 10/24/23, then at family request was removed on 10/26/23 and replaced with condom cath since the exchange he fortunately is not retaining urine like he had done earlier this admission and on previous hospital stays monitor closely (4) Chronic osteomyelitis of sacrum: Plan: intra-op culture from 07/31 with MSSA, pseudomonas, providencia, and anaerobes. Sacral bone biopsy 08/24 with VRE and 2-week course of linezolid completed 09/13/23. He has not been on dedicated abx since August for the sacrum continue woundvac as in #1 above (5) Hospital acquired PNA: Plan: resolved stable pulmonary status on his chronic O2 Earlier this admission --> LLL pneumonia. Due to pseudomonas infection. Chronology of events: 08/01 - cxr with worsening infiltrates on left 08/03 - collapse LLL 08/03 - bronchoscopy by Dr Blancas with mucous plugging found in the left-sided bronchial tree s/p removal; 08/07 - s/p bronch by Dr Lock - minimal secretions LLL, no plugs; thick secretions in trach, however 08/09 - bronch cx - pseudomonas, intermediate resistance 08/09 - changed zosyn to cefepime 08/22 - cxr - ongoing LLL infiltrates/effusion - similar to previous imaging 09/17 - cxr showed improved aeration within the left lung base 10/11 - cxr with LLL infiltrate but stable serial lung exams have been stable over the last few weeks including today stable O2 sats, no increased O2 requirements (baseline 6 liters), tracheal secretions at baseline with no increase in quantity, stable vitals & afebrile can defer on cxr imaging today trach changed to cuffless by Dr. Street 09/09 (6) Severe protein-calorie malnutrition: Plan: much improved. Continue current nutrition recommendations - appreciate their recs. Current nutritional plan: Peg tube replaced 09/25 - Dr Rhodes Most recent albumin >4 Phos wnl Weight is stable (7) History of DVT (deep vein thrombosis): Plan: RLE DVT discovered 11/2022 in [place]. Had been on Eliquis 5mg BID since 12/12/22. Eliquis dosage reduced to 2.5mg BID earlier in this hospitalization for prophylaxis (8) History of nontraumatic rupture of cerebral aneurysm: Plan: Patient is nonverbal at baseline with chronic contractures in all 4 extremities, has eye opening, roving eye movements, grimacing, sleep-wake cycles. Functional quadriplegia. CT head shows encephalomalacia and good shunt placement . He unfortunately suffered a ruptured brain aneurysm and SAH 08/2022. Status post craniotomy and evacuation of hematoma. 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 He has a ventriculoperitoneal shunt in place. Known resultant severe autonomic dysfunction / paroxysmal sympathetic hyperactivity / autonomic storm which is controlled on medications and has the potential to be confused with sepsis. No issues with storming in quite some time. NO changes in any chronic meds for his autonomic storming (9) Autonomic dysfunction: Plan: No recent issues. Continue dantrolene and bromocriptine. Continue gabapentin and baclofen for spasticity, Continue scop patch and tylenol scheduled. (10) Cardiomyopathy: Plan: last echo 07/11/23 - low normal EF 50-55%. No acute current problems. Continue metoprolol 12.5mg BID. No evidence of decompensation. weight is stable. no edema. (11) Tracheostomy status: Plan: cont local trach care. 09/10/23 - trach changed to 8.0 uncuffed tracheostomy tube by Dr. Street suctioning prn. cont mucomyst nebs BID cont albuterol prn (12) Candidiasis: Plan: has required topical anti-yeast powders & diflucan off/on during this stay overall this has improved significantly / resolved (13) Onychia of toe: Plan: RIGHT great toe resolved with bactroban ointment BID bactroban has been stopped his mother agreed that the toe looks good Plan trach changed 09/09 peg tube changed 09/25 condom cath placed 10/25 social work continues to search for SNF for Mr Viveros updated pt's mother at bedside today all labs today stable 11/01/23 minimally depressed wbc count on 10/31 - will simply follow, repeat in a few days for stability Admission and Anticipated Discharge Date Admission Date: July 18, 2023 Subjective no issues overnight pt's mother was at bedside no concerns from nursing staff no change in O2 requirements, secretions via trach, tube feedings, etc staff report they had to reinforce his woundvac today Review of Systems 2 Review of Systems: Unobtainable due to cognitive status Physical Exam 2 Physical Exam: gen - NAD, had secretions via trach that the nursing staff suctioned while I was present; otherwise no change from prior exams head - deformity right side from prior craniotomy neck - no JVD; trach present; secretions suctioned mouth - MMM heart - RRR, s1 s2, no murmur lungs - CTA b/l following tracheal suctioning; no rales, no wheeze abd - soft NT BS+; PEG tube site clean; mildly distended ext - no edema b/l, pulses 2+ b/l skin - right lateral thigh with circular areas of post-inflammatory hyperpigmentation from prior bullae/blisters - no new lesions neuro - contractures all extremities Results & Data Results & Data Vital Signs (Past 12 Hours) Vital Signs Temp Pulse Resp BP BP Pulse Ox O2 Del Method 11/02/23 15:19 36.9 C 87 16 110/73 97 Trach Collar 11/02/23 10:05 Trach Collar 11/02/23 09:00 75 109/74 11/02/23 07:41 60 18 98 Nebulizer 11/02/23 07:23 36.7 C 66 16 97/64 L 97 Trach Collar O2 Flow Rate FiO2 11/02/23 15:19 28 11/02/23 10:05 11/02/23 09:00 11/02/23 07:41 6 28 11/02/23 07:23 28 PG Care Time/CCT Total # of Minutes Spent Total Time Spent with Patient: Total time spent is greater than 50% in coordination of care (as documented) at patient's floor/unit and/or counseling patient: Coding Level of Care Code 79669 SUB INP/OBS CARE 07/17MIN Diagnoses Decubitus ulcer of sacral region, stage 4 L89.154 Bacteremia due to Pseudomonas R78.81; B96.5 Catheter-associated urinary tract infection T83.511A; N39.0 Chronic osteomyelitis of sacrum M86.68 Hospital acquired PNA J18.9; Y95 Severe protein-calorie malnutrition E43 History of DVT (deep vein thrombosis) Z86.718 History of nontraumatic rupture of cerebral aneurysm Z86.79 Autonomic dysfunction G90.9 Cardiomyopathy I42.9 Tracheostomy status Z93.0 Candidiasis B37.9 Onychia of toe L03.039
[2023-11-03] MEDS: ACETYLCYSTEINE 20% INHAL SOLN 4ML ***DISPENSED BY RESP. INH PRN (19:23)
--- NOTE | 2023-11-03 19:42 | Hospitalist Progress Note ---
Date of Service November 03, 2023 Assessment & Plan (1) Decubitus ulcer of sacral region, stage 4: Plan: Present on admission. - s/p debridement in the OR by Dr Issa on 07/31/23. - Wound vac placed on 08/01. Wound vac then changed to a pulsating irrigation woundvac on 08/21/23. - Due to lack of improvement and worsening appearance of his ulcer he underwent repeat debridement in the OR by Dr Drosey on 08/25/23. - on 09/04 the woundvac was removed due to candidiasis (extensive) in sacral area. Treated with fluconazole. Woundvac ultimately placed back. Continues with woundvac exchanges M/W/F by Sherie Jesus woundvac is continuous, not pulsating at this time Picture from today of ulcer reviewed in the chart - ulcer base is clean and very pink/red; no malodor per Ann [place]; no purulence Wound slowly healing with ongoing granulation and no evidence on exam of infection most recent albumin was 4.1 appreciate assistance by Ms Jesus and her wound care team (2) Bacteremia due to Pseudomonas: Plan: resolved s/p 14 days of IV cefepime --> abx d/c on 10/25/23 source - urinary tract no infectious issues since that previous bacteremia episode (3) Catheter-associated urinary tract infection: Plan: late September 2023 2nd pseudomonas resolved lewis exchanged on 10/24/23, then at family request was removed on 10/26/23 and replaced with condom cath since the exchange he fortunately is not retaining urine like he had done earlier this admission and on previous hospital stays monitor (4) Chronic osteomyelitis of sacrum: Plan: intra-op culture from 07/31 with MSSA, pseudomonas, providencia, and anaerobes. Sacral bone biopsy 08/24 with VRE and 2-week course of linezolid completed 09/13/23. He has not been on dedicated abx since August for the sacrum continue woundvac as in #1 above (5) Hospital acquired PNA: Plan: resolved stable pulmonary status on his chronic O2 Earlier this admission --> LLL pneumonia. Due to pseudomonas infection. Chronology of events: 08/01 - cxr with worsening infiltrates on left 08/03 - collapse LLL 08/03 - bronchoscopy by Dr Blancas with mucous plugging found in the left-sided bronchial tree s/p removal; 08/07 - s/p bronch by Dr Lock - minimal secretions LLL, no plugs; thick secretions in trach, however 08/09 - bronch cx - pseudomonas, intermediate resistance 08/09 - changed zosyn to cefepime 08/22 - cxr - ongoing LLL infiltrates/effusion - similar to previous imaging 09/17 - cxr showed improved aeration within the left lung base 10/11 - cxr with LLL infiltrate but stable serial lung exams have been stable over the last few weeks including today stable O2 sats, no increased O2 requirements (baseline 6 liters), tracheal secretions at baseline with no increase in quantity, stable vitals & afebrile trach changed to cuffless by Dr. Street 09/09 made mucomyst prn as requested by respiratory (6) Severe protein-calorie malnutrition: Plan: much improved. Continue current nutrition recommendations - appreciate their recs. Current nutritional plan: Peg tube replaced 09/25 - Dr Rhodes Most recent albumin >4 Phos wnl Weight is stable (7) History of DVT (deep vein thrombosis): Plan: RLE DVT discovered 11/2022 in [place]. Had been on Eliquis 5mg BID since 12/12/22. Eliquis dosage reduced to 2.5mg BID earlier in this hospitalization for prophylaxis (8) History of nontraumatic rupture of cerebral aneurysm: Plan: Patient is nonverbal at baseline with chronic contractures in all 4 extremities, has eye opening, roving eye movements, grimacing, sleep-wake cycles. Functional quadriplegia. CT head shows encephalomalacia and good shunt placement . He unfortunately suffered a ruptured brain aneurysm and SAH 08/2022. Status post craniotomy and evacuation of hematoma. 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 He has a ventriculoperitoneal shunt in place. Known resultant severe autonomic dysfunction / paroxysmal sympathetic hyperactivity / autonomic storm which is controlled on medications and has the potential to be confused with sepsis. No issues with storming in quite some time. NO changes in any chronic meds for his autonomic storming (9) Autonomic dysfunction: Plan: No recent issues. Continue dantrolene and bromocriptine. Continue gabapentin and baclofen for spasticity, Continue scop patch and tylenol scheduled. (10) Cardiomyopathy: Plan: last echo 07/11/23 - low normal EF 50-55%. No acute current problems. Continue metoprolol 12.5mg BID. No evidence of decompensation. weight is stable. no edema. (11) Tracheostomy status: Plan: cont local trach care. 09/10/23 - trach changed to 8.0 uncuffed tracheostomy tube by Dr. Street suctioning prn. cont mucomyst nebs BID cont albuterol prn (12) Candidiasis: Plan: has required topical anti-yeast powders & diflucan off/on during this stay overall this has improved significantly / resolved (13) Onychia of toe: Plan: RIGHT great toe --> resolved with bactroban ointment BID bactroban has been stopped Plan trach changed 09/09 peg tube changed 09/25 condom cath placed 10/25 social work continues to search for SNF that take care of Trach patients -- no facilities with beds updated pt's mother at bedside yesterday all labs today stable 11/01/23 minimally depressed wbc count on 10/31 - will simply follow, repeat in a few days for stability Admission and Anticipated Discharge Date Admission Date: July 18, 2023 Subjective no events respiratory had contacted me re: mucomyst they report secretions are very thin, unchanged over the last 3-4 weeks they ask if mucomyst can be prn Review of Systems 2 Review of Systems: Unobtainable due to cognitive status Physical Exam 2 Physical Exam: gen - NAD, sleeping, no change in overall appearance from prior examinations head - deformity right side from prior craniotomy neck - no JVD; trach present; head tilt to left ear on left - pinnae without ulceration mouth - MMM heart - RRR, s1 s2, no murmur lungs - CTA b/l; mildly decreased BS L base; no rales or wheeze abd - soft NT BS+; PEG tube site clean; mild distension - chronic ext - no edema b/l, pulses 2+ b/l skin - right lateral thigh with circular areas of post-inflammatory hyperpigmentation from prior bullae/blisters - no new lesions neuro - contractures all extremities Results & Data Results & Data Vital Signs (Past 12 Hours) Vital Signs Temp Pulse Resp BP Pulse Ox O2 Del Method O2 Flow Rate 11/03/23 19:30 91 H 16 96 Trach Collar 6 11/03/23 14:22 36.6 C 85 16 118/80 97 Trach Collar 6 05/13/24 08:33 Trach Collar 6 FiO2 05/13/24 19:30 28 11/03/23 14:22 11/03/23 08:33 PG Care Time/CCT Total # of Minutes Spent Total Time Spent with Patient: Total time spent is greater than 50% in coordination of care (as documented) at patient's floor/unit and/or counseling patient: Coding Level of Care Code 02828 SUB INP/OBS CARE 1/25MIN Diagnoses Decubitus ulcer of sacral region, stage 4 L89.154 Bacteremia due to Pseudomonas R78.81; B96.5 Catheter-associated urinary tract infection T83.511A; N39.0 Chronic osteomyelitis of sacrum M86.68 Hospital acquired PNA J18.9; Y95 Severe protein-calorie malnutrition E43 History of DVT (deep vein thrombosis) Z86.718 History of nontraumatic rupture of cerebral aneurysm Z86.79 Autonomic dysfunction G90.9 Cardiomyopathy I42.9 Tracheostomy status Z93.0 Candidiasis B37.9 Onychia of toe L03.039
[2023-11-04] MEDS ORDERED: ACETAMINOPHEN SUSP 325 MG/10.15 ML UDC PEG PRN (16:51)
--- NOTE | 2023-11-04 17:03 | Hospitalist Progress Note ---
Date of Service November 04, 2023 Assessment & Plan (1) Decubitus ulcer of sacral region, stage 4: Plan: Present on admission. - s/p debridement in the OR by Dr Issa on 07/31/23. - Wound vac placed on 08/01. Wound vac then changed to a pulsating irrigation woundvac on 08/21/23. - Due to lack of improvement and worsening appearance of his ulcer he underwent repeat debridement in the OR by Dr Dorsey on 08/25/23. - on 09/04 the woundvac was removed due to candidiasis (extensive) in sacral area. Treated with fluconazole. Woundvac ultimately placed back. Continues with woundvac exchanges M/W/F by Sherie Jesus woundvac is continuous, not pulsating at this time Picture from 11/02 reviewed, similar to a week ago very slow improvement (2) Bacteremia due to Pseudomonas: Plan: resolved s/p 14 days of IV cefepime --> abx d/c on 10/25/23 source - urinary tract no infectious issues since that previous bacteremia episode (3) Catheter-associated urinary tract infection: Plan: late September 2023 2nd pseudomonas resolved (4) Chronic osteomyelitis of sacrum: Plan: intra-op culture from 07/31 with MSSA, pseudomonas, providencia, and anaerobes. Sacral bone biopsy 08/24 with VRE and 2-week course of linezolid completed 09/13/23. He has not been on dedicated abx since August for the sacrum continue wound vac as in #1 above (5) Hospital acquired PNA: Plan: 07/2023 LLL pneumonia due to pseudomonas infection treated and resolved. Had LLL collapse and mucus plugging required bronchoscopy 08/03, 08/07 (6) Severe protein-calorie malnutrition: Plan: much improved. Continue current nutrition recommendations Most recent albumin >4 Weight is improved (7) History of DVT (deep vein thrombosis): Plan: RLE DVT discovered 11/2022 in [place]. Had been on Eliquis 5mg BID since 12/12/22. Eliquis dosage reduced to 2.5mg BID earlier in this hospitalization for pr ophylaxis (8) History of nontraumatic rupture of cerebral aneurysm: Plan: Patient is nonverbal at baseline with chronic contractures in all 4 extremities, has eye opening, roving eye movements, grimacing, sleep-wake cycles. Functional quadriplegia. CT head shows encephalomalacia and good shunt placement . He unfortunately suf fered a ruptured brain aneurysm and SAH 08/2022. Status post craniotomy and evacuation of hematoma. 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 He has a ventriculoperitoneal shunt in place. Known resultant severe autonomic dysfunction / paroxysmal sympathetic hyperactivity / autonomic storm which is controlled on medications and has the potential to be confused with sepsis. No issues with storming in quite some time. (9) Autonomic dysfunction: Plan: No recent issues. Continue dantrolene and bromocriptine. Continue gabapentin and baclofen for spasticity, (10) Cardiomyopathy: Plan: last echo 07/11/23 - low normal EF 50-55%. No acute current problems. Continue metoprolol 12.5mg BID. Has had no problems with volume overload and has not been on diuretics. (11) Tracheostomy status: Plan: Has trach for inability to manage/clear secretions. Has floppy airways with dynamic collapse on bronchoscopy and several pulmonary infections, episodes of mucus plugging 09/10/23 - trach changed to 8.0 uncuffed tracheostomy tube by Dr. Street suctioning prn cont mucomyst nebs BID - when these were changed to PRN a few weeks ago he developed recurrent mucus plugging and hypoxia. Changed back to scheduled. cont albuterol prn (12) Candidiasis: Plan: has required topical anti-yeast powders & diflucan off/on during this stay overall this has improved significantly / resolved Plan trach changed 09/09 peg tube changed / lewis discontinued and condom cath placed 10/25 social work continues to search for SNF that take care of Trach patients -- no facilities with beds updated pt's mother at bedside 11/01 Admission and Anticipated Discharge Date Admission Date: July 18, 2023 Subjective nonverbal no events Physical Exam Physical Exam: PHYSICAL EXAMINATION Last 24h vital signs reviewed, see documentation in flowsheet General: eyes open HEENT: R skull deformity unchanged. trach site anterior neck cdi Lungs: CTAB no wheezing, nonlabored Heart: Reg no mrg Abdomen: soft nondistended. +BT. gtube site cdi no erythema : condom cath, urine in bag clear yellow Photo of sacral wound reviewed from 11/02 - base is clean pink one slightly darker area overall appears a little more filled in on edges compared to 7d ago Extremities: Warm, dry, well-perfused. No extremity edema. diffuse sarcopenia present. Neuro: eyes open, roving eye movements. he has flexion contractures of both wrists, right elbow, bilateral lower extremities. Psych: unable to assess Results & Data Results & Data Vital Signs (Past 12 Hours) Vital Signs Temp Pulse Resp BP Pulse Ox O2 Del Method O2 Flow Rate 11/04/23 13:51 36.6 C 72 16 118/73 98 Trach Collar 6 11/04/23 08:00 Trach Collar 11/04/23 07:40 36.6 C 75 16 115/74 99 Trach Collar 6 PG Care Time/CCT Total # of Minutes Spent Total Time Spent with Patient: Total time spent is greater than 50% in coordination of care (as documented) at patient's floor/unit and/or counseling patient: Coding Level of Care Code 74762 SUB INP/OBS CARE 2/35MIN Diagnoses Decubitus ulcer of sacral region, stage 4 L89.154 Bacteremia due to Pseudomonas R78.81; B96.5 Catheter-associated urinary tract infection T83.511A; N39.0 Chronic osteomyelitis of sacrum M86.68 Hospital acquired PNA J18.9; Y95 Severe protein-calorie malnutrition E43 History of DVT (deep vein thrombosis) Z86.718 History of nontraumatic rupture of cerebral aneurysm Z86.79 Autonomic dysfunction G90.9 Cardiomyopathy I42.9 Tracheostomy status Z93.0 Candidiasis B37.9
[2023-11-04] MEDS: ACETYLCYSTEINE 20% INHAL SOLN 4ML ***DISPENSED BY RESP. INH SCH (19:14)
--- NOTE | 2023-11-05 18:14 | Hospitalist Progress Note ---
Date of Service November 05, 2023 Assessment & Plan (1) Decubitus ulcer of sacral region, stage 4: Plan: Present on admission. - s/p debridement in the OR by Dr Issa on 07/31/23. - Wound vac placed on 08/01. Wound vac then changed to a pulsating irrigation woundvac on 08/21/23. - Due to lack of improvement and worsening appearance of his ulcer he underwent repeat debridement in the OR by Dr Dorsey on 08/25/23. - on 09/04 the woundvac was removed due to candidiasis (extensive) in sacral area. Treated with fluconazole. Woundvac ultimately placed back. Continues with woundvac exchanges M/W/F by Sherie Jesus woundvac is continuous, not pulsating at this time Picture from 11/02 reviewed, similar to a week ago very slow improvement (2) Bacteremia due to Pseudomonas: Plan: resolved s/p 14 days of IV cefepime --> abx d/c on 10/25/23 source - urinary tract no infectious issues since that previous bacteremia episode (3) Catheter-associated urinary tract infection: Plan: late September 2023 2nd pseudomonas resolved (4) Chronic osteomyelitis of sacrum: Plan: intra-op culture from 07/31 with MSSA, pseudomonas, providencia, and anaerobes. Sacral bone biopsy 08/24 with VRE and 2-week course of linezolid completed 09/13/23. He has not been on dedicated abx since August for the sacrum continue wound vac as in #1 above (5) Hospital acquired PNA: Plan: 07/2023 LLL pneumonia due to pseudomonas infection treated and resolved. Had LLL collapse and mucus plugging required bronchoscopy 08/03, 08/07 (6) Severe protein-calorie malnutrition: Plan: much improved. Continue current nutrition recommendations Most recent albumin >4 Weight is improved (7) History of DVT (deep vein thrombosis): Plan: RLE DVT discovered 11/2022 in [place]. Had been on Eliquis 5mg BID since 12/12/22. Eliquis dosage reduced to 2.5mg BID earlier in this hospitalization for pr ophylaxis (8) History of nontraumatic rupture of cerebral aneurysm: Plan: Patient is nonverbal at baseline with chronic contractures in all 4 extremities, has eye opening, roving eye movements, grimacing, sleep-wake cycles. Functional quadriplegia. CT head shows encephalomalacia and good shunt placement . He unfortunately suf fered a ruptured brain aneurysm and SAH 08/2022. Status post craniotomy and evacuation of hematoma. 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 He has a ventriculoperitoneal shunt in place. Known resultant severe autonomic dysfunction / paroxysmal sympathetic hyperactivity / autonomic storm which is controlled on medications and has the potential to be confused with sepsis. No issues with storming in quite some time. (9) Autonomic dysfunction: Plan: No recent issues. Continue dantrolene and bromocriptine. Continue gabapentin and baclofen for spasticity, (10) Cardiomyopathy: Plan: last echo 07/11/23 - low normal EF 50-55%. No acute current problems. Continue metoprolol 12.5mg BID. Has had no problems with volume overload and has not been on diuretics. (11) Tracheostomy status: Plan: Has trach for inability to manage/clear secretions. Has floppy airways with dynamic collapse on bronchoscopy and several pulmonary infections, episodes of mucus plugging 09/10/23 - trach changed to 8.0 uncuffed tracheostomy tube by Dr. Street suctioning prn cont mucomyst nebs BID - when these were changed to PRN a few weeks ago he developed recurrent mucus plugging and hypoxia. Changed back to scheduled. had increased secretions when scop patch off - continue cont albuterol prn (12) Candidiasis: Plan: has required topical anti-yeast powders & diflucan off/on during this stay overall this has improved significantly / resolved Plan trach changed 09/09 peg tube changed / lewis discontinued and condom cath placed 10/25 social work continues to search for SNF that take care of Trach patients -- no facilities with beds updated pt's mother at bedside 11/01 Admission and Anticipated Discharge Date Admission Date: July 18, 2023 Subjective no events, nonverbal Physical Exam Physical Exam: PHYSICAL EXAMINATION Last 24h vital signs reviewed, see documentation in flowsheet exam unchanged 11/04: General: eyes open HEENT: R skull deformity unchanged. trach site anterior neck cdi Lungs: CTAB no wheezing, nonlabored Heart: Reg no mrg Abdomen: soft nondistended. +BT. gtube LUQ : condom cath, urine in bag clear yellow Extremities: Warm, dry, well-perfused. No extremity edema. diffuse sarcopenia present. Neuro: eyes open, roving eye movements. he has flexion contractures of both wrists, right elbow, bilateral lower extremities. Psych: unable to assess Results & Data Results & Data Vital Signs (Past 12 Hours) Vital Signs Temp Pulse Resp BP Pulse Ox O2 Del Method O2 Flow Rate 11/05/23 15:59 36.7 C 92 H 16 101/66 96 Trach Collar 6 11/05/23 08:42 Oxymask 7 11/05/23 07:54 36.8 C 81 16 111/73 99 Room Air 11/05/23 07:13 84 20 97 Trach Collar 6 FiO2 11/05/23 15:59 11/05/23 08:42 11/05/23 07:54 11/05/23 07:13 28 PG Care Time/CCT Total # of Minutes Spent Total Time Spent with Patient: Total time spent is greater than 50% in coordination of care (as documented) at patient's floor/unit and/or counseling patient: Coding Level of Care Code 95848 SUB INP/OBS CARE /25MIN Diagnoses Decubitus ulcer of sacral region, stage 4 L89.154 Bacteremia due to Pseudomonas R78.81; B96.5 Catheter-associated urinary tract infection T83.511A; N39.0 Chronic osteomyelitis of sacrum M86.68 Hospital acquired PNA J18.9; Y95 Severe protein-calorie malnutrition E43 History of DVT (deep vein thrombosis) Z86.718 History of nontraumatic rupture of cerebral aneurysm Z86.79 Autonomic dysfunction G90.9 Cardiomyopathy I42.9 Tracheostomy status Z93.0 Candidiasis B37.9
[2023-11-05] MEDS: SCOPOLAMINE 1 MG/72 HR TDSY PATCH TD SCH (18:55)
[2023-11-05] MEDS: CHECK SCOPOLAMINE PATCH PLACEMENT SCH (23:48)
[2023-11-06] MEDS: PANCREAZE (LIPASE 10,500U) CAP PO SCH (12:44)
[2023-11-06] MEDS: SODIUM BICARBONATE 650 MG TAB PO SCH (12:44)
--- NOTE | 2023-11-06 17:41 | Hospitalist Progress Note ---
Date of Service November 06, 2023 Assessment & Plan (1) Decubitus ulcer of sacral region, stage 4: Plan: Present on admission. - s/p debridement in the OR by Dr Issa on 07/31/23. - Wound vac placed on 08/01. Wound vac then changed to a pulsating irrigation woundvac on 08/21/23. - Due to lack of improvement and worsening appearance of his ulcer he underwent repeat debridement in the OR by Dr Dorsey on 08/25/23. - on 09/04 the woundvac was removed due to candidiasis (extensive) in sacral area. Treated with fluconazole. Woundvac ultimately placed back. Continues with woundvac exchanges M/W/F by Sherie Jesus woundvac is continuous, not pulsating at this time Picture from 11/04 reviewed, similar to 11/02 - base with pink granulation tissue minimal yellowish exudate inferiorly (2) Bacteremia due to Pseudomonas: Plan: resolved s/p 14 days of IV cefepime --> abx d/c on 10/25/23 source - urinary tract no infectious issues since that previous bacteremia episode (3) Catheter-associated urinary tract infection: Plan: late September 2023 2nd pseudomonas resolved (4) Chronic osteomyelitis of sacrum: Plan: intra-op culture from 07/31 with MSSA, pseudomonas, providencia, and anaerobes. Sacral bone biopsy 08/24 with VRE and 2-week course of linezolid completed . He has not been on dedicated abx since August for the sacrum continue wound vac as in #1 above (5) Hospital acquired PNA: Plan: 07/2023 LLL pneumonia due to pseudomonas infection treated and resolved. Had LLL collapse and mucus plugging required bronchoscopy 08/03, 08/07 (6) Severe protein-calorie malnutrition: Plan: much improved. Continue current nutrition recommendations Most recent albumin >4 Weight is improved (7) History of DVT (deep vein thrombosis): Plan: RLE DVT discovered 11/2022 in [place]. Had been on Eliquis 5mg BID since 12/12/22. Eliquis dosage reduced to 2.5mg BID earlier in this hospitalization for prophylaxis (8) History of nontraumatic rupture of cerebral aneurysm: Plan: Patient is nonverbal at baseline with chronic contractures in all 4 extremities, has eye opening, roving eye movements, grimacing, sleep-wake cycles. Functional quadriplegia. CT head shows encephalomalacia and good shunt placement . He unfortunately suffered a ruptured brain aneurysm and SAH 08/2022. Status post craniotomy and evacuation of hematoma. 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 He has a ventriculoperitoneal shunt in place. Known resultant severe autonomic dysfunction / paroxysmal sympathetic hyperactivity / autonomic storm which is controlled on medications and has the potential to be confused with sepsis. No issues with storming in quite some time. (9) Autonomic dysfunction: Plan: No recent issues. Continue dantrolene and bromocriptine. Continue gabapentin and baclofen for spasticity, (10) Cardiomyopathy: Plan: last echo 07/11/23 - low normal EF 50-55%. No acute current problems. Continue metoprolol 12.5mg BID. Has had no problems with volume overload and has not been on diuretics. (11) Tracheostomy status: Plan: Has trach for inability to manage/clear secretions. Has floppy airways with dynamic collapse on bronchoscopy and several pulmonary infections, episodes of mucus plugging 09/10/23 - trach changed to 8.0 uncuffed tracheostomy tube by Dr. Street suctioning prn cont mucomyst nebs BID - when these were changed to PRN a few weeks ago he developed recurrent mucus plugging and hypoxia. Changed back to scheduled. had increased secretions when scop patch off - continue scop patch cont albuterol prn (12) Candidiasis: Plan: has required topical anti-yeast powders & diflucan off/on during this stay overall this has improved significantly / resolved Plan G-tube clogged 11/05 - discussed with RN, pharmacist, ordered enzymatic declogging with lipase/Nabicarb/water, however, ultimately declogged with coke trach changed 09/09 peg tube changed 09/25 lewis discontinued and condom cath placed 10/25 social work continues to search for SNF that take care of Trach patients -- no facilities with beds updated pt's mother at bedside 11/01 Admission and Anticipated Discharge Date Admission Date: July 18, 2023 Subjective feeding tube clogged this am, discussed with RN several times nonverbal Physical Exam Physical Exam: PHYSICAL EXAMINATION Last 24h vital signs reviewed, see documentation in flowsheet General: eyes closed HEENT: R skull deformity unchanged. trach site anterior neck cdi Lungs: CTAB no wheezing, nonlabored Heart: Reg no mrg Abdomen: soft nondistended. +BT. gtube LUQ - no kinking no drainage or erythema : condom cath, urine in bag clear yellow Extremities: Warm, dry, well-perfused. No extremity edema. diffuse sarcopenia present. Neuro: eyes closed. he has flexion contractures of both wrists, right elbow, bilateral lower extremities. Psych: unable to assess Results & Data Results & Data Vital Signs (Past 12 Hours) Vital Signs Temp Pulse Resp BP Pulse Ox O2 Del Method O2 Flow Rate 11/06/23 07:25 88 20 97 Trach Collar 6 11/06/23 07:03 36.9 C 76 16 110/74 98 Trach Collar 6 FiO2 11/06/23 07:25 28 11/06/23 07:03 PG Care Time/CCT Total # of Minutes Spent Total Time Spent with Patient: Total time spent is greater than 50% in coordination of care (as documented) at patient's floor/unit and/or counseling patient: Coding Level of Care Code 28814 SUB INP/OBS CARE 2/35MIN Diagnoses Decubitus ulcer of sacral region, stage 4 L89.154 Bacteremia due to Pseudomonas R78.81; B96.5 Catheter-associated urinary tract infection T83.511A; N39.0 Chronic osteomyelitis of sacrum M86.68 Hospital acquired PNA J18.9; Y95 Severe protein-calorie malnutrition E43 History of DVT (deep vein thrombosis) Z86.718 History of nontraumatic rupture of cerebral aneurysm Z86.79 Autonomic dysfunction G90.9 Cardiomyopathy I42.9 Tracheostomy status Z93.0 Candidiasis B37.9
--- NOTE | 2023-11-07 17:38 | Hospitalist Progress Note ---
Date of Service November 07, 2023 Assessment & Plan (1) Decubitus ulcer of sacral region, stage 4: Plan: Present on admission. - s/p debridement in the OR by Dr Issa on 07/31/23. - Wound vac placed on 08/01. Wound vac then changed to a pulsating irrigation woundvac on 08/21/23. - Due to lack of improvement and worsening appearance of his ulcer he underwent repeat debridement in the OR by Dr Dorsey on 08/25/23. - on 09/04 the woundvac was removed due to candidiasis (extensive) in sacral area. Treated with fluconazole. Woundvac ultimately placed back. Continues with woundvac exchanges M/W/F by Sherie Jesus woundvac is continuous, not pulsating at this time Picture from 11/04 reviewed, similar to 11/02 - base with pink granulation tissue minimal yellowish exudate inferiorly (2) Bacteremia due to Pseudomonas: Plan: resolved s/p 14 days of IV cefepime --> abx d/c on 10/25/23 source - urinary tract no infectious issues since that previous bacteremia episode (3) Catheter-associated urinary tract infection: Plan: late September 2023 2nd pseudomonas resolved (4) Chronic osteomyelitis of sacrum: Plan: intra-op culture from 07/31 with MSSA, pseudomonas, providencia, and anaerobes. Sacral bone biopsy 08/24 with VRE and 2-week course of linezolid completed . He has not been on dedicated abx since August for the sacrum continue wound vac as in #1 above (5) Hospital acquired PNA: Plan: 07/2023 LLL pneumonia due to pseudomonas infection treated and resolved. Had LLL collapse and mucus plugging required bronchoscopy 08/03, 08/07 (6) Severe protein-calorie malnutrition: Plan: much improved. Continue current nutrition recommendations Most recent albumin >4 Weight is improved (7) History of DVT (deep vein thrombosis): Plan: RLE DVT discovered 11/2022 in [place]. Had been on Eliquis 5mg BID since 12/12/22. Eliquis dosage reduced to 2.5mg BID earlier in this hospitalization for prophylaxis (8) History of nontraumatic rupture of cerebral aneurysm: Plan: Patient is nonverbal at baseline with chronic contractures in all 4 extremities, has eye opening, roving eye movements, grimacing, sleep-wake cycles. Functional quadriplegia. CT head shows encephalomalacia and good shunt placement . He unfortunately suffered a ruptured brain aneurysm and SAH 08/2022. Status post craniotomy and evacuation of hematoma. 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 He has a ventriculoperitoneal shunt in place. Known resultant severe autonomic dysfunction / paroxysmal sympathetic hyperactivity / autonomic storm which is controlled on medications and has the potential to be confused with sepsis. No issues with storming in quite some time. (9) Autonomic dysfunction: Plan: No recent issues. Continue dantrolene and bromocriptine. Continue gabapentin and baclofen for spasticity, (10) Cardiomyopathy: Plan: last echo 07/11/23 - low normal EF 50-55%. No acute current problems. Continue metoprolol 12.5mg BID. Has had no problems with volume overload and has not been on diuretics. (11) Tracheostomy status: Plan: Has trach for inability to manage/clear secretions. Has floppy airways with dynamic collapse on bronchoscopy and several pulmonary infections, episodes of mucus plugging 09/10/23 - trach changed to 8.0 uncuffed tracheostomy tube by Dr. Street suctioning prn cont mucomyst nebs BID - when these were changed to PRN a few weeks ago he developed recurrent mucus plugging and hypoxia. Changed back to scheduled. had increased secretions when scop patch off - continue scop patch cont albuterol prn (12) Candidiasis: Plan: has required topical anti-yeast powders & diflucan off/on during this stay overall this has improved significantly / resolved Plan AM labs ordered: CBC, BMP trach changed 09/09 peg tube changed 09/25 lewis discontinued and condom cath placed 10/25 social work continues to search for SNF that take care of Trach patients -- no facilities with beds updated pt's mother at bedside 11/01 Admission and Anticipated Discharge Date Admission Date: July 18, 2023 Subjective no events, nonverbal eyes open Physical Exam Physical Exam: PHYSICAL EXAMINATION Last 24h vital signs reviewed, see documentation in flowsheet General: eyes open HEENT: R skull deformity unchanged. trach site anterior neck cdi Lungs: CTAB no wheezing, nonlabored. one cough, prod small amt thin white sputum Heart: Reg no mrg Abdomen: soft nondistended. +BT. gtube LUQ : condom cath, urine in bag clear yellow Extremities: Warm, dry, well-perfused. No extremity edema. diffuse sarcopenia present. Neuro: eyes open, roving eye movements. he has flexion contractures of both wrists, right elbow, bilateral lower extremities. Psych: unable to assess Results & Data Results & Data Vital Signs (Past 12 Hours) Vital Signs Temp Pulse Resp BP Pulse Ox O2 Del Method O2 Flow Rate 11/07/23 14:49 36.9 C 68 18 97/62 L 96 Trach Collar 6 11/07/23 09:30 Trach Collar 6 11/07/23 08:05 36.7 C 78 16 105/66 98 Trach Collar 6 11/07/23 07:17 76 20 98 Trach Collar 6 FiO2 11/07/23 14:49 11/07/23 09:30 11/07/23 08:05 11/07/23 07:17 28 PG Care Time/CCT Total # of Minutes Spent Total Time Spent with Patient: Total time spent is greater than 50% in coordination of care (as documented) at patient's floor/unit and/or counseling patient: Coding Level of Care Code 78717 SUB INP/OBS CARE 07/17MIN Diagnoses Decubitus ulcer of sacral region, stage 4 L89.154 Bacteremia due to Pseudomonas R78.81; B96.5 Catheter-associated urinary tract infection T83.511A; N39.0 Chronic osteomyelitis of sacrum M86.68 Hospital acquired PNA J18.9; Y95 Severe protein-calorie malnutrition E43 History of DVT (deep vein thrombosis) Z86.718 History of nontraumatic rupture of cerebral aneurysm Z86.79 Autonomic dysfunction G90.9 Cardiomyopathy I42.9 Tracheostomy status Z93.0 Candidiasis B37.9
[2023-11-08 07:55] LABS: Hemoglobin 11.7 g/dl (14.0-18.0); Mean Corpuscular Hemoglobin 29.8 pg (25.0-34.0); Mean Corpuscular Hgb Conc 31.6 g/dL (32.0-36.0); Mean Corpuscular Volume 94.1 fL (80.0-100.0); Mean Platelet Volume 12.5 fL (9.4-12.4); Platelet Count 220 K/uL (130-400); RDW Coefficient of Variation 14.6 % (11.5-14.5); RDW Standard Deviation 50.4 fL (36.4-46.3); Red Blood Count 3.93 M/uL (4.70-6.10); White Blood Count 5.48 K/ul (4.8-10.8)
[2023-11-08 07:57] LABS: Anion Gap 7 (3-11); BUN Creatinine Ratio 69.6 (10-20); Blood Urea Nitrogen 32 mg/dl (6-23); Calcium 9.5 mg/dl (8.6-10.3); Carbon Dioxide 31 mmol/L (21-32); Chloride 102 mmol/L (98-107); Creatinine Clr Calc Pharmacy 189.3 ml/min; Est GFR (African American) > 150.0 ml/min; Est GFR (Non-African American) 147.3 ml/min; Glucose 113 mg/dl (70-99(Fasting)); Potassium 4.2 mmol/L (3.5-5.1); Sodium 140 mmol/L (136-145)
--- NOTE | 2023-11-08 14:23 | Hospitalist Progress Note ---
Date of Service November 08, 2023 Assessment & Plan (1) Decubitus ulcer of sacral region, stage 4: Plan: Present on admission. - s/p debridement in the OR by Dr Issa on 07/31/23. - Wound vac placed on 08/01. Wound vac then changed to a pulsating irrigation woundvac on 08/21/23. - Due to lack of improvement and worsening appearance of his ulcer he underwent repeat debridement in the OR by Dr Dorsey on 08/25/23. - on 09/04 the woundvac was removed due to candidiasis (extensive) in sacral area. Treated with fluconazole. Woundvac ultimately placed back. Continues with woundvac exchanges M/W/F by Sherie Jesus woundvac is continuous, not pulsating at this time Picture from 11/04 reviewed, similar to 11/02 - base with pink granulation tissue minimal yellowish exudate inferiorly (2) Bacteremia due to Pseudomonas: Plan: CAUTI and bacteremia due to pseudomonas late september 2023, resolved, source was urinary tract 14 days of IV cefepime through 10/25/23 (3) Chronic osteomyelitis of sacrum: Plan: intra-op culture from 07/31 with MSSA, pseudomonas, providencia, and anaerobes. Sacral bone biopsy 08/24 with VRE and 2-week course of linezolid completed 09/13/23. He has not been on dedicated abx since August for the sacrum continue wound vac as in #1 above (4) Hospital acquired PNA: Plan: 07/2023 LLL pneumonia due to pseudomonas infection treated and resolved. Had LLL collapse and mucus plugging required bronchoscopy 08/03, 08/07 (5) Severe protein-calorie malnutrition: Plan: much improved. Continue current nutrition recommendations albumin 4.1 on 11/07 Weight is improved (6) History of DVT (deep vein thrombosis): Plan: RLE DVT 11/2022 in [place] while hospitalized, treated with apixban 5 mg bid through early 2023. Continue apixaban 2.5 mg bid for prophylaxis (7) History of nontraumatic rupture of cerebral aneurysm: Plan: Patient is nonverbal at baseline with chronic contractures in all 4 extremities, has eye opening, roving eye movements, grimacing, sleep-wake cycles. Functional quadriplegia. CT head shows encephalomalacia and good shunt placement . He unfortunately suffered a ruptured brain aneurysm and SAH 08/2022. Status post craniotomy and evacuation of hematoma. 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 He has a ventriculoperitoneal shunt in place. (8) Autonomic dysfunction: Plan: Has autonomic dysfunction / paroxysmal sympathetic hyperactivity / autonomic storm resultant of his ICH which is controlled on medications and has the potential to be confused with sepsis. No issues with storming in quite some time. Admitting MDs report he did have some storming when in the ED for admissions from SNF winter 2022 because of missed meds doses during transitions. Continue dantrolene and bromocriptine. Continue gabapentin and baclofen for spasticity (9) Cardiomyopathy: Plan: last echo 07/11/23 - low normal EF 50-55%. No acute current problems. Continue metoprolol 12.5mg BID. Has had no problems with volume overload and has not been on diuretics. (10) Tracheostomy status: Plan: Has trach for inability to manage/clear secretions. Has floppy airways with dynamic collapse on bronchoscopy and several pulmonary infections, episodes of mucus plugging 09/10/23 - trach changed to 8.0 uncuffed tracheostomy tube by Dr. Street suctioning prn cont mucomyst nebs BID - when these were changed to PRN a few weeks ago he developed recurrent mucus plugging and hypoxia. Changed back to scheduled. had increased secretions when scop patch off - continue scop patch cont albuterol prn (11) Candidiasis: Plan: has required topical anti-yeast powders & diflucan off/on during this stay overall this has improved significantly / resolved Plan AM labs reviewed 11/07: WBC normal, Hg improved to 11.7, lytes and Cr normal trach changed 09/09 peg tube changed 09/25, unclogged 11/06 lewis discontinued and condom cath placed 10/25 social work continues to search for SNF that take care of Trach patients -- no facilities with beds updated pt's mother at bedside 11/01, 11/07 Admission and Anticipated Discharge Date Admission Date: July 18, 2023 Subjective no events. working on stretching exercises with his mom, grimacing to this Physical Exam 2 Physical Exam: PHYSICAL EXAMINATION Last 24h vital signs reviewed, see documentation in flowsheet General: eyes open, grimacing but not tracking visually HEENT: R skull deformity unchanged. trach site anterior neck cdi Lungs: slightly coarse anteriorly, nonlabored. Heart: Reg no mrg Abdomen: soft nondistended. +BT. gtube LUQ : condom cath, urine in bag clear yellow Extremities: Warm, dry, well-perfused. No extremity edema. diffuse sarcopenia present. Neuro: eyes open, grimacing. he has flexion contractures of both wrists, right elbow, bilateral lower extremities. Psych: unable to assess Results & Data Results & Data Vital Signs (Past 12 Hours) Vital Signs Temp Pulse Resp BP Pulse Ox O2 Del Method O2 Flow Rate 11/08/23 08:39 Trach Collar 6 11/08/23 07:47 77 16 98 Trach Collar 6 11/08/23 07:16 36.6 C 71 16 110/72 98 Trach Collar 6 FiO2 11/08/23 08:39 11/08/23 07:47 28 11/08/23 07:16 Laboratory Results 11/08/23 07:20 11/08/23 07:20 PG Care Time/CCT Total # of Minutes Spent Total Time Spent with Patient: Total time spent is greater than 50% in coordination of care (as documented) at patient's floor/unit and/or counseling patient: Coding Level of Care Code 74936 SUB INP/OBS CARE 2/35MIN Diagnoses Decubitus ulcer of sacral region, stage 4 L89.154 Bacteremia due to Pseudomonas R78.81; B96.5 Chronic osteomyelitis of sacrum M86.68 Hospital acquired PNA J18.9; Y95 Severe protein-calorie malnutrition E43 History of DVT (deep vein thrombosis) Z86.718 History of nontraumatic rupture of cerebral aneurysm Z86.79 Autonomic dysfunction G90.9 Cardiomyopathy I42.9 Tracheostomy status Z93.0 Candidiasis B37.9
[2023-11-09] MEDS: TUBE FEEDING WATER FLUSH PEG SCH (11:18)
--- NOTE | 2023-11-09 15:03 | Hospitalist Progress Note ---
Date of Service November 09, 2023 Assessment & Plan (1) Decubitus ulcer of sacral region, stage 4: Plan: Present on admission. - s/p debridement in the OR by Dr Issa on 07/31/23. - Wound vac placed on 08/01. Wound vac then changed to a pulsating irrigation woundvac on 08/21/23. - Due to lack of improvement and worsening appearance of his ulcer he underwent repeat debridement in the OR by Dr Dorsey on 08/25/23. - on 09/04 the woundvac was removed due to candidiasis (extensive) in sacral area. Treated with fluconazole. Woundvac ultimately placed back. Continues with woundvac exchanges M/W/F by Sherie Jesus woundvac is continuous, not pulsating at this time Picture from 11/04 reviewed, similar to 11/02 - base with pink granulation tissue minimal yellowish exudate inferiorly (2) Tracheostomy status: Plan: Has trach for inability to manage/clear secretions. Has floppy airways with dynamic collapse on bronchoscopy and several pulmonary infections, episodes of mucus plugging 09/10/23 - trach changed to 8.0 uncuffed tracheostomy tube by Dr. Street suctioning prn cont mucomyst nebs BID - when these were changed to PRN a few weeks ago he developed recurrent mucus plugging and hypoxia. Changed back to scheduled. had increased secretions when scop patch off - continue scop patch cont albuterol prn some increase in pulmonary secretions last few days but sputum remains non- purulent, afebrile - monitor (3) Chronic osteomyelitis of sacrum: Plan: intra-op culture from 07/31 with MSSA, pseudomonas, providencia, and anaerobes. Sacral bone biopsy 08/24 with VRE and 2-week course of linezolid completed 09/13/23. He has not been on dedicated abx since August for the sacrum continue wound vac as in #1 above (4) Severe protein-calorie malnutrition: Plan: much improved. Continue current nutrition recommendations albumin 4.1 on 11/07 Weight is improved Discussed with RD today - increased free water boluses. BUN is increased. Has high insensible fluid losses. (5) History of nontraumatic rupture of cerebral aneurysm: Plan: Patient is nonverbal at baseline with chronic contractures in all 4 extremities, has eye opening, roving eye movements, grimacing, sleep-wake cycles. Functional quadriplegia. CT head shows encephalomalacia and good shunt placement . He unfortunately suffered a ruptured brain aneurysm and SAH 08/2022. Status post craniotomy and evacuation of hematoma. 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 He has a ventriculoperitoneal shunt in place. 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 No issues with storming in quite some time. Admitting MDs report he did have some storming when in the ED for admissions from SNF winter 2022 because of missed meds doses during transitions. Continue dantrolene and bromocriptine. Continue gabapentin and baclofen for spasticity (7) Candidiasis: Plan: has required topical anti-yeast powders & diflucan off/on during this stay overall this has improved significantly / resolved Plan Resolved problems / previous events this hospitalization: 07/2023 LLL pneumonia due to pseudomonas infection treated and resolved. Had LLL collapse and mucus plugging required bronchoscopy 08/03, 08/07 Pseudomonas bacteremia secondary to CAUTI - late September 2023. Treated with 14 days cefepime, resolved Chronic problems: Cardiomyopathy - last echo 07/11/23 - low normal EF 50-55%. No acute current problems. Continue metoprolol 12.5mg BID. Does not require diuretics. RLE DVT 11/2022 in [place] while hospitalized, treated with apixban 5 mg bid through early 2023. Continue apixaban 2.5 mg bid for prophylaxis AM labs reviewed 11/07: WBC normal, Hg improved to 11.7, lytes and Cr normal trach changed 09/09 peg tube changed 09/25, unclogged 11/06 lewis discontinued and condom cath placed 10/25 social work continues to search for SNF that take care of Trach patients -- no facilities with beds updated pt's mother at bedside 11/01, 11/07 Admission and Anticipated Discharge Date Admission Date: July 18, 2023 Subjective noted coughing this am awake, nonverbal Physical Exam Physical Exam: PHYSICAL EXAMINATION Last 24h vital signs reviewed, see documentation in flowsheet General: eyes open, grimacing and strong cough but not tracking visually HEENT: R skull deformity unchanged. trach site anterior neck cdi Lungs: clear anteriorly bilaterally, nonlabored. Heart: Reg no mrg Abdomen: soft nondistended. +BT. gtube LUQ : condom cath, urine in bag clear yellow Extremities: Warm, dry, well-perfused. No extremity edema. diffuse sarcopenia present. Neuro: eyes open, gaze toward left, grimacing. he has flexion contractures of both wrists, right elbow, bilateral lower extremities. Psych: unable to assess Results & Data Results & Data Vital Signs (Past 12 Hours) Vital Signs Temp Pulse Pulse Resp BP Pulse Ox O2 Del Method 11/09/23 08:30 Trach Collar 11/09/23 07:51 64 15 Trach Collar 11/09/23 07:28 37.4 C 65 14 106/69 98 Trach Collar O2 Flow Rate FiO2 11/09/23 08:30 6 11/09/23 07:51 28 11/09/23 07:28 6 PG Care Time/CCT Total # of Minutes Spent Total Time Spent with Patient: Total time spent is greater than 50% in coordination of care (as documented) at patient's floor/unit and/or counseling patient: Coding Level of Care Code 46633 SUB INP/OBS CARE 1/25MIN Diagnoses Decubitus ulcer of sacral region, stage 4 L89.154 Tracheostomy status Z93.0 Chronic osteomyelitis of sacrum M86.68 Severe protein-calorie malnutrition E43 History of nontraumatic rupture of cerebral aneurysm Z86.79 Autonomic dysfunction G90.9 Candidiasis B37.9
--- NOTE | 2023-11-10 18:21 | Hospitalist Progress Note ---
Date of Service November 10, 2023 Assessment & Plan (1) Decubitus ulcer of sacral region, stage 4: Plan: Present on admission. - s/p debridement in the OR by Dr Issa on 07/31/23. - Wound vac placed on 08/01. Wound vac then changed to a pulsating irrigation woundvac on 08/21/23. - Due to lack of improvement and worsening appearance of his ulcer he underwent repeat debridement in the OR by Dr Dorsey on 08/25/23. - on 09/04 the woundvac was removed due to candidiasis (extensive) in sacral area. Treated with fluconazole. Woundvac ultimately placed back. Continues with woundvac exchanges M/W/F by Sherie Jesus woundvac is continuous, not pulsating at this time Picture from 11/04 reviewed, similar to 11/02 - base with pink granulation tissue minimal yellowish exudate inferiorly -continue same care 11/09 -no new issues (2) Tracheostomy status: Plan: Has trach for inability to manage/clear secretions. Has floppy airways with dynamic collapse on bronchoscopy and several pulmonary infections, episodes of mucus plugging 09/10/23 - trach changed to 8.0 uncuffed tracheostomy tube by Dr. Street suctioning prn cont mucomyst nebs BID - when these were changed to PRN a few weeks ago he developed recurrent mucus plugging and hypoxia. Changed back to scheduled. had increased secretions when scop patch off - continue scop patch cont albuterol prn (3) Chronic osteomyelitis of sacrum: Plan: intra-op culture from 07/31 with MSSA, pseudomonas, providencia, and anaerobes. Sacral bone biopsy 08/24 with VRE and 2-week course of linezolid completed 09/13/23. He has not been on dedicated abx since August for the sacrum continue wound vac as in #1 above (4) Severe protein-calorie malnutrition: Plan: much improved. Continue current nutrition recommendations albumin 4.1 on 11/07 Weight is improved Discussed with RD - increased free water boluses 11/08. BUN is increased. Has high insensible fluid losses. (5) History of nontraumatic rupture of cerebral aneurysm: Plan: Patient is nonverbal at baseline with chronic contractures in all 4 extremities, has eye opening, roving eye movements, grimacing, sleep-wake cycles. Functional quadriplegia. CT head shows encephalomalacia and good shunt placement . He unfortunately suffered a ruptured brain aneurysm and SAH 08/2022. Status post craniotomy and evacuation of hematoma. 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 He has a ventriculoperitoneal shunt in place. 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 No issues with storming in quite some time. Admitting MDs report he did have some storming when in the ED for admissions from SNF winter 2022 because of missed meds doses during transitions. Continue dantrolene and bromocriptine. Continue gabapentin and baclofen for spasticity (7) Candidiasis: Plan: has required topical anti-yeast powders & diflucan off/on during this stay overall this has improved significantly / resolved Plan Resolved problems / previous events this hospitalization: 07/2023 LLL pneumonia due to pseudomonas infection treated and resolved. Had LLL collapse and mucus plugging required bronchoscopy 08/03, 08/07 Pseudomonas bacteremia secondary to CAUTI - late September 2023. Treated with 14 days cefepime, resolved Chronic problems: Cardiomyopathy - last echo 07/11/23 - low normal EF 50-55%. No acute current problems. Continue metoprolol 12.5mg BID. Does not require diuretics. RLE DVT 11/2022 in [place] while hospitalized, treated with apixban 5 mg bid through early 2023. Continue apixaban 2.5 mg bid for prophylaxis labs reviewed 11/07: WBC normal, Hg improved to 11.7, lytes and Cr normal continue weekly labs in absence of acute issues trach changed 09/09 peg tube changed 09/25, unclogged 11/06 lewis discontinued and condom cath placed 10/25 social work continues to search for SNF that take care of Trach patients -- no facilities with beds updated pt's mother at bedside 11/01, 11/07 Admission and Anticipated Discharge Date Admission Date: July 18, 2023 Subjective no events, nonverbal Physical Exam Physical Exam: PHYSICAL EXAMINATION Last 24h vital signs reviewed, see documentation in flowsheet General: eyes closed exam unchanged 11/09 HEENT: R skull deformity unchanged. trach site anterior neck cdi Lungs: clear anteriorly bilaterally, nonlabored. Heart: Reg no mrg Abdomen: soft nondistended. +BT. gtube LUQ : condom cath, urine in bag clear yellow Extremities: Warm, dry, well-perfused. No extremity edema. diffuse sarcopenia present. Neuro: eyes closed, sleeping. he has flexion contractures of both wrists, right elbow, bilateral lower extremities. Psych: unable to assess Results & Data Results & Data Vital Signs (Past 12 Hours) Vital Signs Temp Pulse Resp BP Pulse Ox O2 Del Method O2 Flow Rate 11/10/23 15:04 37.2 C 67 16 120/80 97 Trach Collar 6 11/10/23 09:50 Trach Collar 11/10/23 07:55 71 18 100 Trach Collar 6 11/10/23 07:33 37.3 C 78 12 121/80 98 Trach Collar 6 FiO2 11/10/23 15:04 11/10/23 09:50 11/10/23 07:55 28 11/10/23 07:33 PG Care Time/CCT Total # of Minutes Spent Total Time Spent with Patient: Total time spent is greater than 50% in coordination of care (as documented) at patient's floor/unit and/or counseling patient: Coding Level of Care Code 43909 SUB INP/OBS CARE 1/25MIN Diagnoses Decubitus ulcer of sacral region, stage 4 L89.154 Tracheostomy status Z93.0 Chronic osteomyelitis of sacrum M86.68 Severe protein-calorie malnutrition E43 History of nontraumatic rupture of cerebral aneurysm Z86.79 Autonomic dysfunction G90.9 Candidiasis B37.9
--- NOTE | 2023-11-11 17:57 | Hospitalist Progress Note ---
Date of Service November 11, 2023 Assessment & Plan (1) Decubitus ulcer of sacral region, stage 4: Plan: Present on admission. - s/p debridement in the OR by Dr Issa on 07/31/23. - Wound vac placed on 08/01. Wound vac then changed to a pulsating irrigation woundvac on 08/21/23. - Due to lack of improvement and worsening appearance of his ulcer he underwent repeat debridement in the OR by Dr Dorsey on 08/25/23. - on 09/04 the woundvac was removed due to candidiasis (extensive) in sacral area. Treated with fluconazole. Woundvac ultimately placed back. Continues with woundvac exchanges M/W/F by Sherie Jesus woundvac is continuous, not pulsating at this time Most recent wound photos reviewed Wound slowly healing with ongoing granulation and no evidence on exam of infection most recent albumin was 4.1 appreciate assistance by Ms Jesus and her wound care team (2) Bacteremia due to Pseudomonas: Plan: resolved s/p 14 days of IV cefepime --> abx d/c on 10/25/23 source - urinary tract no infectious issues since that previous bacteremia episode (3) Catheter-associated urinary tract infection: Plan: late September 2023 2nd pseudomonas resolved lewis exchanged on 10/24/23, then at family request was removed on 10/26/23 and replaced with condom cath since the exchange he fortunately has not had urinary retention (has had such in the past) (4) Chronic osteomyelitis of sacrum: Plan: intra-op culture from 07/31 with MSSA, pseudomonas, providencia, and anaerobes. Sacral bone biopsy 08/24 with VRE and 2-week course of linezolid completed 09/13/23. He has not been on dedicated abx since August 2023 for the sacrum continue woundvac as in #1 above (5) Hospital acquired PNA: Plan: resolved stable pulmonary status on his chronic O2 Earlier this admission --> LLL pneumonia. Due to pseudomonas infection. Chronology of events: 08/01 - cxr with worsening infiltrates on left 08/03 - collapse LLL 08/03 - bronchoscopy by Dr Blancas with mucous plugging found in the left-sided bronchial tree s/p removal; 08/07 - s/p bronch by Dr Lock - minimal secretions LLL, no plugs; thick secretions in trach, however 08/09 - bronch cx - pseudomonas, intermediate resistance 08/09 - changed zosyn to cefepime 08/22 - cxr - ongoing LLL infiltrates/effusion - similar to previous imaging 09/17 - cxr showed improved aeration within the left lung base 10/11 - cxr with LLL infiltrate but stable serial lung exams have been stable stable O2 sats, no increased O2 requirements (baseline 6 liters), tracheal secretions at baseline with no increase in quantity trach changed to cuffless by Dr. Street 09/09 cont mucomyst BID (6) Severe protein-calorie malnutrition: Plan: much improved. Peg tube replaced 09/25 - Dr Rhodes Most recent albumin 4.1 Phos wnl Weight is stable (7) History of DVT (deep vein thrombosis): Plan: RLE DVT discovered 11/2022 in [place]. Had been on Eliquis 5mg BID since 12/12/22. Eliquis dosage reduced to 2.5mg BID earlier in this hospitalization for prophylaxis (8) History of nontraumatic rupture of cerebral aneurysm: Plan: Patient is nonverbal at baseline with chronic contractures in all 4 extremities, has eye opening, roving eye movements, grimacing, sleep-wake cycles. Functional quadriplegia. CT head shows encephalomalacia and good shunt placement . He unfortunately suffered a ruptured brain aneurysm and SAH 08/2022. Status post craniotomy and evacuation of hematoma. 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 He has a ventriculoperitoneal shunt in place. Known resultant severe autonomic dysfunction / paroxysmal sympathetic hyperactivity / autonomic storm which is controlled on medications and has the potential to be confused with sepsis. No issues with storming in quite some time. NO changes in any chronic meds for his autonomic storming (9) Autonomic dysfunction: Plan: No recent issues. Continue dantrolene and bromocriptine. Continue gabapentin and baclofen for spasticity, Continue scop patch and tylenol scheduled. (10) Cardiomyopathy: Plan: last echo 07/11/23 - low normal EF 50-55%. No acute current problems. Continue metoprolol 12.5mg BID. No evidence of decompensation on exam. weight is stable. no edema. (11) Tracheostomy status: Plan: cont local trach care. 09/10/23 - trach changed to 8.0 uncuffed tracheostomy tube by Dr. Street suctioning prn. cont mucomyst nebs BID cont albuterol prn (12) Candidiasis: Plan: has required topical anti-yeast powders & diflucan off/on during this stay overall this has improved significantly / resolved (13) Onychia of toe: Plan: RIGHT great toe --> resolved no recurrence Plan trach changed 09/09 peg tube changed 09/25 condom cath placed 10/25 social work continues to search for SNF that take care of Trach patients -- no facilities with beds Admission and Anticipated Discharge Date Admission Date: July 18, 2023 Subjective no events overnight o2 requirements unchanged having soft BMs w/o diarrhea tolerating tube feedings woundvac exchanged yesterday by Sherie Jesus from wound care Review of Systems Review of Systems: Unobtainable due to cognitive status (nonverbal ) Physical Exam Physical Exam: gen - NAD, sleeping, no change in overall appearance from prior examinations head - deformity right side from prior craniotomy neck - no JVD; trach present; head tilt to left ear on left - pinnae without ulceration or redness/drainage mouth - MMM heart - RRR, s1 s2, no murmur lungs - CTA b/l; decreased BS L base - chronic; no rales or wheeze abd - soft NT BS+; PEG tube site clean; mild distension - chronic ext - no edema b/l, pulses 2+ b/l skin - right lateral thigh with circular areas of post-inflammatory hyperpigmentation from prior bullae/blisters -- continue to heal neuro - contractures all extremities Results & Data Results & Data Vital Signs (Past 12 Hours) Vital Signs Temp Pulse Pulse Resp BP Pulse Ox O2 Del Method 11/11/23 15:18 37.7 C H 77 14 112/74 98 Trach Collar 11/11/23 08:00 Trach Collar 11/11/23 07:56 36.6 C 69 18 109/74 95 Trach Collar 11/11/23 07:30 76 18 98 Trach Collar O2 Flow Rate FiO2 11/11/23 15:18 6 11/11/23 08:00 6 28 11/11/23 07:56 6 11/11/23 07:30 6 PG Care Time/CCT Total # of Minutes Spent Total Time Spent with Patient: Total time spent is greater than 50% in coordination of care (as documented) at patient's floor/unit and/or counseling patient: Coding Level of Care Code 39311 SUB INP/OBS CARE Diagnoses Decubitus ulcer of sacral region, stage 4 L89.154 Bacteremia due to Pseudomonas R78.81; B96.5 Catheter-associated urinary tract infection T83.511A; N39.0 Chronic osteomyelitis of sacrum M86.68 Hospital acquired PNA J18.9; Y95 Severe protein-calorie malnutrition E43 History of DVT (deep vein thrombosis) Z86.718 History of nontraumatic rupture of cerebral aneurysm Z86.79 Autonomic dysfunction G90.9 Cardiomyopathy I42.9 Tracheostomy status Z93.0 Candidiasis B37.9 Onychia of toe L03.039
[2023-11-11] MEDS: ACETAMINOPHEN SUSP 500 MG/15.6 ML UDP PEG SCH (19:30)
--- NOTE | 2023-11-12 22:17 | Hospitalist Progress Note ---
Date of Service November 12, 2023 Assessment & Plan (1) Decubitus ulcer of sacral region, stage 4: Plan: Present on admission. - s/p debridement in the OR by Dr Issa on 07/31/23. - Wound vac placed on 08/01. Wound vac then changed to a pulsating irrigation woundvac on 08/21/23. - Due to lack of improvement and worsening appearance of his ulcer he underwent repeat debridement in the OR by Dr Dorsey on 08/25/23. - on 09/04 the woundvac was removed due to candidiasis (extensive) in sacral area. Treated with fluconazole. Woundvac ultimately placed back. Continues with woundvac exchanges M/W/F by Sherie Jesus Wound photos reviewed from earlier today Will reach out to plastic surgery - candidate for skin flap or graft?? no evidence on exam of infection per wound care most recent albumin was 4.1 appreciate assistance by Ms Jesus and her wound care team (2) Bacteremia due to Pseudomonas: Plan: resolved s/p 14 days of IV cefepime --> abx d/c on 10/25/23 source - urinary tract no infectious issues since that previous bacteremia episode (3) Catheter-associated urinary tract infection: Plan: late September 2023 2nd pseudomonas resolved lewis exchanged on 10/24/23, then at family request was removed on 10/26/23 and replaced with condom cath since the exchange he fortunately has not had urinary retention (has had such in the past) (4) Chronic osteomyelitis of sacrum: Plan: intra-op culture from 07/31 with MSSA, pseudomonas, providencia, and anaerobes. Sacral bone biopsy 08/24 with VRE and 2-week course of linezolid completed 09/13/23. He has not been on dedicated abx since August 2023 for the sacrum continue woundvac as in #1 above there has been no palpable bone or visible bone since early in the hospitalization (5) Hospital acquired PNA: Plan: resolved stable pulmonary status on his chronic O2 Earlier this admission --> LLL pneumonia. Due to pseudomonas infection. Chronology of events: 08/01 - cxr with worsening infiltrates on left 08/03 - collapse LLL 08/03 - bronchoscopy by Dr Blancas with mucous plugging found in the left-sided bronchial tree s/p removal; 08/07 - s/p bronch by Dr Kadri - minimal secretions LLL, no plugs; thick secretions in trach, however 08/09 - bronch cx - pseudomonas, intermediate resistance 08/09 - changed zosyn to cefepime 08/22 - cxr - ongoing LLL infiltrates/effusion - similar to previous imaging 09/17 - cxr showed improved aeration within the left lung base 10/11 - cxr with LLL infiltrate but stable serial lung exams have been stable stable O2 sats, no increased O2 requirements (baseline 6 liters), tracheal secretions at baseline with no increase in quantity trach changed to cuffless by Dr. Street 09/09 cont mucomyst BID (6) Severe protein-calorie malnutrition: Plan: resolved. Peg tube replaced 09/25 - Dr Case Most recent albumin 4.1 Phos wnl Weight is stable cont current tube feeding regimen per nutrition. (7) History of DVT (deep vein thrombosis): Plan: RLE DVT discovered 11/2022 in [place]. Had been on Eliquis 5mg BID since 12/12/22. Eliquis dosage reduced to 2.5mg BID earlier in this hospitalization for prophylaxis (8) History of nontraumatic rupture of cerebral aneurysm: Plan: Patient is nonverbal at baseline with chronic contractures in all 4 extremities, has eye opening, roving eye movements, grimacing, sleep-wake cycles. Functional quadriplegia. CT head shows encephalomalacia and good shunt placement . He unfortunately suffered a ruptured brain aneurysm and SAH 08/2022. Status post craniotomy and evacuation of hematoma. 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 He has a ventriculoperitoneal shunt in place. Known resultant severe autonomic dysfunction / paroxysmal sympathetic hyperactivity / autonomic storm which is controlled on medications and has the potential to be confused with sepsis. No issues with storming in quite some time. NO changes in any chronic meds for his autonomic storming (9) Autonomic dysfunction: Plan: No recent issues. Continue dantrolene and bromocriptine. Continue gabapentin and baclofen for spasticity, Continue scop patch and tylenol scheduled. (10) Cardiomyopathy: Plan: last echo 07/11/23 - low normal EF 50-55%. No acute current problems. Continue metoprolol 12.5mg BID. No evidence of decompensation on exam. weight is stable. no edema. (11) Tracheostomy status: Plan: cont local trach care. 09/10/23 - trach changed to 8.0 uncuffed tracheostomy tube by Dr. Street suctioning prn. cont mucomyst nebs BID cont albuterol prn (12) Candidiasis: Plan: has required topical anti-yeast powders & diflucan off/on during this stay overall this has improved significantly / resolved (13) Onychia of toe: Plan: RIGHT great toe --> resolved no recurrence Plan trach changed 09/09 peg tube changed 09/25 condom cath placed 10/25 social work continues to search for SNF that take care of Trach patients -- no facilities with beds will update family tomorrow Admission and Anticipated Discharge Date Admission Date: July 18, 2023 Subjective no events overnight spoke with Sherie Nickerson from wound care - the sacral wound is almost at skin level she is pleased with the ongoing improvement we discussed whether to involve plastics for skin flap or graft? tolerating tube feedings O2 requirements unchanged Review of Systems Review of Systems: Unobtainable due to cognitive status (nonverbal ) Physical Exam Physical Exam: gen - NAD, sleeping, no change in overall appearance from prior examinations; comfortable appearing; no diaphoresis head - deformity right side from prior craniotomy neck - no JVD; trach present; head tilt to left heart - RRR, s1 s2, no murmur lungs - CTA b/l; decreased BS L base - chronic; no rales or wheeze abd - soft NT BS+; PEG tube site clean; mild distension - chronic ext - no edema b/l, pulses 2+ b/l skin - right lateral thigh with circular areas of post-inflammatory hyperpigmentation from prior bullae/blisters -- continue to heal/resolve; no new skin lesions neuro - contractures all extremities Results & Data Results & Data Vital Signs (Past 12 Hours) Vital Signs Temp Pulse Resp BP Pulse Ox O2 Del Method O2 Flow Rate 11/12/23 21:03 36.5 C 81 18 115/82 96 Trach Collar 6 11/12/23 20:28 78 18 95 Trach Collar 6 11/12/23 15:07 37 C 74 15 114/74 98 Oxymask, Trach Collar 6 FiO2 11/12/23 21:03 11/12/23 20:28 28 11/12/23 15:07 PG Care Time/CCT Total # of Minutes Spent Total Time Spent with Patient: Total time spent is greater than 50% in coordination of care (as documented) at patient's floor/unit and/or counseling patient: Coding Level of Care Code 08404 SUB INP/OBS CARE Diagnoses Decubitus ulcer of sacral region, stage 4 L89.154 Bacteremia due to Pseudomonas R78.81; B96.5 Catheter-associated urinary tract infection T83.511A; N39.0 Chronic osteomyelitis of sacrum M86.68 Hospital acquired PNA J18.9; Y95 Severe protein-calorie malnutrition E43 History of DVT (deep vein thrombosis) Z86.718 History of nontraumatic rupture of cerebral aneurysm Z86.79 Autonomic dysfunction G90.9 Cardiomyopathy I42.9 Tracheostomy status Z93.0 Candidiasis B37.9 Onychia of toe L03.039
--- NOTE | 2023-11-13 20:30 | Hospitalist Progress Note ---
Date of Service November 13, 2023 Assessment & Plan (1) Decubitus ulcer of sacral region, stage 4: Plan: Present on admission. - s/p debridement in the OR by Dr Issa on 07/31/23. - Wound vac placed on 08/01. Wound vac then changed to a pulsating irrigation woundvac on 08/21/23. - Due to lack of improvement and worsening appearance of his ulcer he underwent repeat debridement in the OR by Dr Dorsey on 08/25/23. - on 09/04 the woundvac was removed due to candidiasis (extensive) in sacral area. Treated with fluconazole. Woundvac ultimately placed back. Continues with woundvac exchanges M/W/F by Sherie Jesus Wound photos reviewed from earlier today Dr Metcalf & I heard back from plastic surgery - at this time surgery is not advised; ongoing wound care recommended only no evidence on exam of infection per wound care most recent albumin was 4.1 appreciate assistance by Ms Jesus and her wound care team (2) Bacteremia due to Pseudomonas: Plan: resolved s/p 14 days of IV cefepime --> abx d/c on 10/25/23 source - urinary tract no infectious issues since that previous bacteremia episode (3) Catheter-associated urinary tract infection: Plan: late September 2023 2nd pseudomonas resolved lewis exchanged on 10/24/23, then at family request was removed on 10/26/23 and replaced with condom cath since the exchange he fortunately has not had urinary retention (has had such in the past) (4) Chronic osteomyelitis of sacrum: Plan: intra-op culture from 07/31 with MSSA, pseudomonas, providencia, and anaerobes. Sacral bone biopsy 08/24 with VRE and 2-week course of linezolid completed 09/13/23. He has not been on dedicated abx since August 2023 for the sacrum continue woundvac as in #1 above there has been no palpable bone or visible bone since early in the hospitalization (5) Hospital acquired PNA: Plan: resolved stable pulmonary status on his chronic O2 Earlier this admission --> LLL pneumonia. Due to pseudomonas infection. Chronology of events: 08/01 - cxr with worsening infiltrates on left 08/03 - collapse LLL 08/03 - bronchoscopy by Dr Blancas with mucous plugging found in the left-sided bronchial tree s/p removal; 08/07 - s/p bronch by Dr Lock - minimal secretions LLL, no plugs; thick secretions in trach, however 08/09 - bronch cx - pseudomonas, intermediate resistance 08/09 - changed zosyn to cefepime 08/22 - cxr - ongoing LLL infiltrates/effusion - similar to previous imaging 09/17 - cxr showed improved aeration within the left lung base 10/11 - cxr with LLL infiltrate but stable serial lung exams have been stable stable O2 sats, no increased O2 requirements (baseline 6 liters), tracheal secretions at baseline with no increase in quantity trach changed to cuffless by Dr. Street 09/09 cont mucomyst BID (6) Severe protein-calorie malnutrition: Plan: resolved. Peg tube replaced 09/25 - Dr Rhodes Most recent albumin 4.1 Phos wnl Weight is stable cont current tube feeding regimen per nutrition. (7) History of DVT (deep vein thrombosis): Plan: RLE DVT discovered 11/2022 in [place]. Had been on Eliquis 5mg BID since 12/12/22. Eliquis dosage reduced to 2.5mg BID earlier in this hospitalization for prophylaxis (8) History of nontraumatic rupture of cerebral aneurysm: Plan: Patient is nonverbal at baseline with chronic contractures in all 4 extremities, has eye opening, roving eye movements, grimacing, sleep-wake cycles. Functional quadriplegia. CT head shows encephalomalacia and good shunt placement . He unfortunately suffered a ruptured brain aneurysm and SAH 08/2022. Status post craniotomy and evacuation of hematoma. 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 He has a ventriculoperitoneal shunt in place. Known resultant severe autonomic dysfunction / paroxysmal sympathetic hyperactivity / autonomic storm which is controlled on medications and has the potential to be confused with sepsis. No issues with storming in quite some time. NO changes in any chronic meds for his autonomic storming (9) Autonomic dysfunction: Plan: No recent issues. Continue dantrolene and bromocriptine. Continue gabapentin and baclofen for spasticity, Continue scop patch and tylenol scheduled. (10) Cardiomyopathy: Plan: last echo 07/11/23 - low normal EF 50-55%. No acute current problems. Continue metoprolol 12.5mg BID. No evidence of decompensation on exam. weight is stable. no edema. (11) Tracheostomy status: Plan: cont local trach care. 09/10/23 - trach changed to 8.0 uncuffed tracheostomy tube by Dr. Street suctioning prn. cont mucomyst nebs BID cont albuterol prn (12) Candidiasis: Plan: has required topical anti-yeast powders & diflucan off/on during this stay overall this has improved significantly / resolved (13) Onychia of toe: Plan: RIGHT great toe --> resolved no recurrence Plan trach changed 09/09 peg tube changed 09/25 condom cath placed 10/25 social work continues to search for SNF that take care of Trach patients -- no facilities with beds there has been discussion, however, about a facility in [place] that potentially could take Ry? Admission and Anticipated Discharge Date Admission Date: July 18, 2023 Subjective no events overnight no status changes O2 requirements unchanged stooling woundvac remains in place tolerating tube feedings secretions via trach unchanged Review of Systems Review of Systems: Unobtainable due to cognitive status Physical Exam Physical Exam: gen - NAD, sleeping, no change in overall appearance from prior examinations; comfortable appearing; no diaphoresis or distress; no tachypnea head - deformity right side from prior craniotomy neck - no JVD; trach present - clean; head tilt to left heart - RRR, s1 s2, no murmur lungs - CTA b/l; decreased BS L base - chronic; no rales or wheeze abd - soft NT BS+; PEG tube site clean with drain dressing in place; mild distension - chronic and unchanged ext - no edema b/l, pulses 2+ b/l skin - right lateral thigh with circular areas of post-inflammatory hyperpigmentation from prior bullae/blisters -- continue to heal/resolve; there is 1 new tiny blister on the anterior right prox thigh neuro - contractures Results & Data Results & Data Vital Signs (Past 12 Hours) Vital Signs Temp Pulse Resp BP Pulse Ox O2 Del Method O2 Flow Rate 11/13/23 19:39 36.5 C 65 16 100/64 94 Room Air 11/13/23 19:32 72 18 96 Trach Collar 6 11/13/23 14:01 37 C 72 16 112/70 97 Room Air FiO2 11/13/23 19:39 11/13/23 19:32 28 11/13/23 14:01 PG Care Time/CCT Total # of Minutes Spent Total Time Spent with Patient: Total time spent is greater than 50% in coordination of care (as documented) at patient's floor/unit and/or counseling patient: Coding Level of Care Code 52232 SUB INP/OBS CARE 07/17MIN Diagnoses Decubitus ulcer of sacral region, stage 4 L89.154 Bacteremia due to Pseudomonas R78.81; B96.5 Catheter-associated urinary tract infection T83.511A; N39.0 Chronic osteomyelitis of sacrum M86.68 Hospital acquired PNA J18.9; Y95 Severe protein-calorie malnutrition E43 History of DVT (deep vein thrombosis) Z86.718 History of nontraumatic rupture of cerebral aneurysm Z86.79 Autonomic dysfunction G90.9 Cardiomyopathy I42.9 Tracheostomy status Z93.0 Candidiasis B37.9 Onychia of toe L03.039
--- NOTE | 2023-11-14 20:13 | Hospitalist Progress Note ---
Date of Service November 14, 2023 Assessment & Plan (1) Decubitus ulcer of sacral region, stage 4: Plan: Present on admission. - s/p debridement in the OR by Dr Issa on 07/31/23. - Wound vac placed on 08/01. Wound vac then changed to a pulsating irrigation woundvac on 08/21/23. - Due to lack of improvement and worsening appearance of his ulcer he underwent repeat debridement in the OR by Dr Dorsey on 08/25/23. - on 09/04 the woundvac was removed due to candidiasis (extensive) in sacral area. Treated with fluconazole. Woundvac ultimately placed back. Continues with woundvac exchanges M/W/F by Sherie Jesus Wound photos reviewed from earlier today Dr Metcalf & I heard back from plastic surgery - at this time surgery is not advised; ongoing wound care recommended only no evidence on exam of infection per wound care most recent albumin was 4.1 appreciate assistance by Ms Jesus and her wound care team (2) Bacteremia due to Pseudomonas: Plan: resolved s/p 14 days of IV cefepime --> abx d/c on 10/25/23 source - urinary tract no infectious issues since that previous bacteremia episode (3) Catheter-associated urinary tract infection: Plan: late September 2023 2nd pseudomonas resolved lewis exchanged on 10/24/23, then at family request was removed on 10/26/23 and replaced with condom cath since the exchange he fortunately has not had urinary retention (has had such in the past) (4) Chronic osteomyelitis of sacrum: Plan: intra-op culture from 07/31 with MSSA, pseudomonas, providencia, and anaerobes. Sacral bone biopsy 08/24 with VRE and 2-week course of linezolid completed 09/13/23. He has not been on dedicated abx since August 2023 for the sacrum continue woundvac as in #1 above there has been no palpable bone or visible bone since early in the hospitalization (5) Hospital acquired PNA: Plan: resolved stable pulmonary status on his chronic O2 Earlier this admission --> LLL pneumonia. Due to pseudomonas infection. Chronology of events: 08/01 - cxr with worsening infiltrates on left 08/03 - collapse LLL 08/03 - bronchoscopy by Dr Blancas with mucous plugging found in the left-sided bronchial tree s/p removal; 08/07 - s/p bronch by Dr Lock - minimal secretions LLL, no plugs; thick secretions in trach, however 08/09 - bronch cx - pseudomonas, intermediate resistance 08/09 - changed zosyn to cefepime 08/22 - cxr - ongoing LLL infiltrates/effusion - similar to previous imaging 09/17 - cxr showed improved aeration within the left lung base 10/11 - cxr with LLL infiltrate but stable serial lung exams have been stable stable O2 sats, no increased O2 requirements (baseline 6 liters), tracheal secretions at baseline with no increase in quantity trach changed to cuffless by Dr. Street 09/09 cont mucomyst BID (6) Severe protein-calorie malnutrition: Plan: resolved. Peg tube replaced 09/25 - Dr Rhodes Most recent albumin 4.1 Phos wnl Weight is stable cont current tube feeding regimen per nutrition. (7) History of DVT (deep vein thrombosis): Plan: RLE DVT discovered 11/2022 in [place]. Had been on Eliquis 5mg BID since 12/12/22. Eliquis dosage reduced to 2.5mg BID earlier in this hospitalization for prophylaxis (8) History of nontraumatic rupture of cerebral aneurysm: Plan: Patient is nonverbal at baseline with chronic contractures in all 4 extremities, has eye opening, roving eye movements, grimacing, sleep-wake cycles. Functional quadriplegia. CT head shows encephalomalacia and good shunt placement . He unfortunately suffered a ruptured brain aneurysm and SAH 08/2022. Status post craniotomy and evacuation of hematoma. 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 He has a ventriculoperitoneal shunt in place. Known resultant severe autonomic dysfunction / paroxysmal sympathetic hyperactivity / autonomic storm which is controlled on medications and has the potential to be confused with sepsis. No issues with storming in quite some time. NO changes in any chronic meds for his autonomic storming (9) Autonomic dysfunction: Plan: No recent issues. Continue dantrolene and bromocriptine. Continue gabapentin and baclofen for spasticity, Continue scop patch and tylenol scheduled. (10) Cardiomyopathy: Plan: last echo 07/11/23 - low normal EF 50-55%. No acute current problems. Continue metoprolol 12.5mg BID. No evidence of decompensation on exam. weight is stable. no edema. (11) Tracheostomy status: Plan: cont local trach care. 09/10/23 - trach changed to 8.0 uncuffed tracheostomy tube by Dr. Street suctioning prn. cont mucomyst nebs BID cont albuterol prn (12) Candidiasis: Plan: has required topical anti-yeast powders & diflucan off/on during this stay overall this has improved significantly / resolved (13) Onychia of toe: Plan: RIGHT great toe --> resolved no recurrence Plan of note - development of clear fluid-filled blisters - could this be a bullous disease?? trach changed 09/09 peg tube changed 09/25 condom cath placed 10/25 social work continues to search for SNF that take care of Trach patients -- no facilities with beds there has been discussion, however, about a facility in [place] that potentially could take Ry? I left message for patient's mom on her voicemail - 11/13 Admission and Anticipated Discharge Date Admission Date: July 18, 2023 Subjective speaking with staff no events or concerns mucous via trach - at baseline (white-slightly yellow) still voiding w/o difficulty via condom cath tolerating tube feedings Review of Systems Review of Systems: Unobtainable due to cognitive status (nonverbal ) Physical Exam 2 Physical Exam: gen - NAD, sleeping, no change in overall appearance from prior examinations; comfortable appearing; no diaphoresis or distress; no tachypnea head - deformity right side from prior craniotomy neck - no JVD; trach present - clean; head tilt to left heart - RRR, s1 s2, no murmur lungs - CTA b/l; decreased BS L base only (I had staff roll Mr Viveros on his side and got a very good lung exam - listened posteriorly); no rales or wheeze abd - soft NT BS+; PEG tube site clean with drain dressing in place; mild distension - chronic and unchanged ext - no edema b/l, pulses 2+ b/l skin - right lateral thigh with circular areas of post-inflammatory hyperpigmentation from prior bullae/blisters -- continue to heal/resolve; there is 1 new tiny blister on the anterior right prox thigh - unchanged today; no erythema neuro - contractures Results & Data Results & Data Vital Signs (Past 12 Hours) Vital Signs Temp Pulse Resp BP BP Pulse Ox O2 Del Method 11/14/23 19:57 72 18 97 Trach Collar 11/14/23 19:31 37.5 C 55 L 16 97/64 L 100 Room Air 11/14/23 13:55 37 C 69 15 113/77 97 Trach Collar O2 Flow Rate FiO2 11/14/23 19:57 6 28 11/14/23 19:31 11/14/23 13:55 6 PG Care Time/CCT Total # of Minutes Spent Total Time Spent with Patient: Total time spent is greater than 50% in coordination of care (as documented) at patient's floor/unit and/or counseling patient: Coding Level of Care Code 62070 SUB INP/OBS CARE 07/17MIN Diagnoses Decubitus ulcer of sacral region, stage 4 L89.154 Bacteremia due to Pseudomonas R78.81; B96.5 Catheter-associated urinary tract infection T83.511A; N39.0 Chronic osteomyelitis of sacrum M86.68 Hospital acquired PNA J18.9; Y95 Severe protein-calorie malnutrition E43 History of DVT (deep vein thrombosis) Z86.718 History of nontraumatic rupture of cerebral aneurysm Z86.79 Autonomic dysfunction G90.9 Cardiomyopathy I42.9 Tracheostomy status Z93.0 Candidiasis B37.9 Onychia of toe L03.039
--- NOTE | 2023-11-15 20:37 | Hospitalist Progress Note ---
Date of Service November 15, 2023 Assessment & Plan (1) Decubitus ulcer of sacral region, stage 4: Plan: Present on admission. - s/p debridement in the OR by Dr Dorsey-Herman on 07/31/23. - Wound vac placed on 08/01. Wound vac then changed to a pulsating irrigation woundvac on 08/21/23. - Due to lack of improvement and worsening appearance of his ulcer he underwent repeat debridement in the OR by Dr Dorsey on 08/25/23. - on 09/04 the woundvac was removed due to candidiasis (extensive) in sacral area. Treated with fluconazole. Woundvac ultimately placed back. Continues with woundvac exchanges M/W/F by Sherie Jesus Wound photos reviewed from earlier today Dr Metcalf & I heard back from plastic surgery - at this time surgery is not advised; ongoing wound care recommended only no evidence on exam of infection per wound care most recent albumin was 4.1 appreciate assistance by Ms Jesus and her wound care team check routine labs tomorrow - CBC, CMP, Mag recheck a TSH with Ft4 check a 25-OH vit D level (2) Bacteremia due to Pseudomonas: Plan: resolved s/p 14 days of IV cefepime --> abx d/c on 10/25/23 source - urinary tract no infectious issues since that previous bacteremia episode (3) Catheter-associated urinary tract infection: Plan: late September 2023 2nd pseudomonas resolved lewis exchanged on 10/24/23, then at family request was removed on 10/26/23 and replaced with condom cath since the exchange he fortunately has not had urinary retention (has had such in the past) (4) Chronic osteomyelitis of sacrum: Plan: intra-op culture from 07/31 with MSSA, pseudomonas, providencia, and anaerobes. Sacral bone biopsy 08/24 with VRE and 2-week course of linezolid completed 09/13/23. He has not been on dedicated abx since August 2023 for the sacrum continue woundvac as in #1 above there has been no palpable bone or visible bone since early in the [facility] pitalization (5) Hospital acquired PNA: Plan: resolved stable pulmonary status on his chronic O2 Earlier this admission --> LLL pneumonia. Due to pseudomonas infection. Chronology of events: 08/01 - cxr with worsening infiltrates on left 08/03 - collapse LLL 08/03 - bronchoscopy by Dr Blancas with mucous plugging found in the left-sided bronchial tree s/p removal; 08/07 - s/p bronch by Dr Lock - minimal secretions LLL, no plugs; thick secretions in trach, however 08/09 - bronch cx - pseudomonas, intermediate resistance 08/09 - changed zosyn to cefepime 08/22 - cxr - ongoing LLL infiltrates/effusion - similar to previous imaging 09/17 - cxr showed improved aeration within the left lung base 10/11 - cxr with LLL infiltrate but stable serial lung exams have been stable stable O2 sats, no increased O2 requirements (baseline 6 liters), tracheal secretions at baseline with no increase in quantity trach changed to cuffless by Dr. Street 09/09 cont mucomyst BID (6) Severe protein-calorie malnutrition: Plan: resolved. Peg tube replaced 09/25 - Dr Rhodes Most recent albumin 4.1 Phos wnl Weight is stable cont current tube feeding regimen per nutrition. (7) History of DVT (deep vein thrombosis): Plan: RLE DVT discovered 11/2022 in [place]. Had been on Eliquis 5mg BID since 12/12/22. Eliquis dosage reduced to 2.5mg BID earlier in this hospitalization for prophylaxis (8) History of nontraumatic rupture of cerebral aneurysm: Plan: Patient is nonverbal at baseline with chronic contractures in all 4 extremities, has eye opening, roving eye movements, grimacing, sleep-wake cycles. Functional quadriplegia. CT head shows encephalomalacia and good shunt placement . He unfortunately suffered a ruptured brain aneurysm and SAH 08/2022. Status post craniotomy and evacuation of hematoma. 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 He has a ventriculoperitoneal shunt in place. Known resultant severe autonomic dysfunction / paroxysmal sympathetic hyperactivity / autonomic storm which is controlled on medications and has the potential to be confused with sepsis. No issues with storming in quite some time. NO changes in any chronic meds for his autonomic storming (9) Autonomic dysfunction: Plan: No recent issues. Continue dantrolene and bromocriptine. Continue gabapentin and baclofen for spasticity, Continue scop patch and tylenol scheduled. (10) Cardiomyopathy: Plan: last echo 07/11/23 - low normal EF 50-55%. No acute current problems. Continue metoprolol 12.5mg BID. No evidence of decompensation on exam. weight is stable. no edema. (11) Tracheostomy status: Plan: cont local trach care. 09/10/23 - trach changed to 8.0 uncuffed tracheostomy tube by Dr. Street suctioning prn. cont mucomyst nebs BID cont albuterol prn (12) Candidiasis: Plan: has required topical anti-yeast powders & diflucan off/on during this stay overall this has improved significantly / resolved (13) Onychia of toe: Plan: RIGHT great toe --> resolved no recurrence Plan of note - development of clear fluid-filled blisters - could this be a bullous disease?? trach changed 09/09 peg tube changed 09/25 condom cath placed 10/25 social work continues to search for SNF that take care of Trach patients -- no facilities with beds there has been discussion, however, about a facility in [place] that potentially could take Ry? I left message for patient's mom on her voicemail - 11/13 Admission and Anticipated Discharge Date Admission Date: July 18, 2023 Subjective no events overnight 1 stool earlier today wound vac in place w/o issues tube feedings at goal w/o issues Review of Systems Review of Systems: Unobtainable due to cognitive status Physical Exam Physical Exam: gen - NAD, sleeping, no change in overall appearance; no respiratory distress head - deformity right side from prior craniotomy neck - no JVD; trach present - white-slightly yellow secretions present; head tilt to left heart - RRR, s1 s2, no murmur lungs - CTA b/l; decreased BS L base only abd - soft NT BS+; PEG tube site clean; mild distension - chronic and unchanged ext - no edema b/l, pulses 2+ b/l skin - right lateral thigh with circular areas of post-inflammatory hyperpigmentation from prior bullae/blisters -- continue to heal/resolve; there is 1 new tiny blister on the anterior right prox thigh - unchanged today; no erythema neuro - contractures Results & Data Results & Data Vital Signs (Past 12 Hours) Vital Signs Temp Pulse Resp BP Pulse Ox O2 Del Method O2 Flow Rate 11/15/23 20:13 36.5 C 65 16 100/64 98 Room Air 11/15/23 19:34 76 18 98 Trach Collar 6 11/15/23 14:29 36.8 C 63 16 104/69 95 Trach Collar 6 11/15/23 10:09 Trach Collar 11/15/23 09:18 63 111/73 FiO2 11/15/23 20:13 11/15/23 19:34 28 11/15/23 14:29 11/15/23 10:09 11/15/23 09:18 PG Care Time/CCT Total # of Minutes Spent Total Time Spent with Patient: Total time spent is greater than 50% in coordination of care (as documented) at patient's floor/unit and/or counseling patient: Coding Level of Care Code 55089 SUB INP/OBS CARE 07/17MIN Diagnoses Decubitus ulcer of sacral region, stage 4 L89.154 Bacteremia due to Pseudomonas R78.81; B96.5 Catheter-associated urinary tract infection T83.511A; N39.0 Chronic osteomyelitis of sacrum M86.68 Hospital acquired PNA J18.9; Y95 Severe protein-calorie malnutrition E43 History of DVT (deep vein thrombosis) Z86.718 History of nontraumatic rupture of cerebral aneurysm Z86.79 Autonomic dysfunction G90.9 Cardiomyopathy I42.9 Tracheostomy status Z93.0 Candidiasis B37.9 Onychia of toe L03.039
[2023-11-16 05:47] LABS: Hematocrit (blood only) 38.1 % (42.0-52.0); Hemoglobin 12.1 g/dl (14.0-18.0); Mean Corpuscular Hemoglobin 30.1 pg (25.0-34.0); Mean Corpuscular Hgb Conc 31.8 g/dL (32.0-36.0); Mean Corpuscular Volume 94.8 fL (80.0-100.0); Mean Platelet Volume 12.4 fL (9.4-12.4); Platelet Count 208 K/uL (130-400); RDW Coefficient of Variation 14.6 % (11.5-14.5); RDW Standard Deviation 50.2 fL (36.4-46.3); Red Blood Count 4.02 M/uL (4.70-6.10); White Blood Count 5.83 K/ul (4.8-10.8)
[2023-11-16 06:01] LABS: Alanine Aminotransferase 26 U/L (7-52); Albumin Globulin Ratio 1.2 (0.9-2); Alkaline Phosphatase 63 U/L (34-104); Anion Gap 5 (3-11); Aspartate Aminotransferase 16 U/L (13-39); BUN Creatinine Ratio 70.2 (10-20); Bilirubin,Total 0.4 mg/dl (0.2-1.0); Blood Urea Nitrogen 33 mg/dl (6-23); Calcium 9.2 mg/dl (8.6-10.3); Carbon Dioxide 32 mmol/L (21-32); Chloride 104 mmol/L (98-107); Creatinine Clr Calc Pharmacy 182.1 ml/min; Est GFR (African American) > 150.0 ml/min; Est GFR (Non-African American) 146.1 ml/min; Globulin 3.3 gm/dl (2.5-4.0); Glucose 101 mg/dl (70-99(Fasting)); Magnesium 1.9 mg/dl (1.7-2.4); Sodium 141 mmol/L (136-145); Total Protein 7.3 gm/dl (6.0-8.3)
[2023-11-16 06:17] LABS: Thyroid Stimulating Hormone 2.428 uIu/ml (0.300-4.500)
[2023-11-16 06:19] LABS: T4 Free Thyroxine 0.83 ng/dl (0.61-1.60)
[2023-11-16] MEDS: CHOLECALCIFEROL 25 MCG (1000 UNITS) TAB PEG SCH (11:50)
--- NOTE | 2023-11-16 20:52 | Hospitalist Progress Note ---
Date of Service November 16, 2023 Assessment & Plan (1) Decubitus ulcer of sacral region, stage 4: Plan: Present on admission. - s/p debridement in the OR by Dr Issa on 07/31/23. - Wound vac placed on 08/01. Wound vac then changed to a pulsating irrigation woundvac on 08/21/23. - Due to lack of improvement and worsening appearance of his ulcer he underwent repeat debridement in the OR by Dr Dorsey on 08/25/23. - on 09/04 the woundvac was removed due to candidiasis (extensive) in sacral area. Treated with fluconazole. Woundvac ultimately placed back. Continues with woundvac exchanges M/W/F by Sherie Jesus Wound photos reviewed from earlier today Dr Metcalf & I heard back from plastic surgery - at this time surgery is not advised; ongoing wound care recommended only no evidence on exam of infection per wound care most recent albumin was 4.1 appreciate assistance by Ms Jesus and her wound care team all routine labs today are stable including albumin and hemoglobin (2) Bacteremia due to Pseudomonas: Plan: resolved s/p 14 days of IV cefepime --> abx d/c on 10/25/23 source - urinary tract no infectious issues since that previous bacteremia episode (3) Catheter-associated urinary tract infection: Plan: late September 2023 2nd pseudomonas resolved lewis exchanged on 10/24/23, then at family request was removed on 10/26/23 and replaced with condom cath since the exchange he fortunately has not had urinary retention (has had such in the past) (4) Chronic osteomyelitis of sacrum: Plan: intra-op culture from 07/31 with MSSA, pseudomonas, providencia, and anaerobes. Sacral bone biopsy 08/24 with VRE and 2-week course of linezolid completed 09/13/23 . He has not been on dedicated abx since August 2023 for the sacrum continue woundvac as in #1 above there has been no palpable bone or visible bone since early in the hospitalization (5) Hospital acquired PNA: Plan: resolved stable pulmonary status on his chronic O2 Earlier this admission --> LLL pneumonia. Due to pseudomonas infection. Chronology of events: 08/01 - cxr with worsening infiltrates on left 08/03 - collapse LLL 08/03 - bronchoscopy by Dr Blancas with mucous plugging found in the left-sided bronchial tree s/p removal; 08/07 - s/p bronch by Dr Lock - minimal secretions LLL, no plugs; thick secretions in trach, however 08/09 - bronch cx - pseudomonas, intermediate resistance 08/09 - changed zosyn to cefepime 08/22 - cxr - ongoing LLL infiltrates/effusion - similar to previous imaging 09/17 - cxr showed improved aeration within the left lung base 10/11 - cxr with LLL infiltrate but stable serial lung exams have been stable stable O2 sats, no increased O2 requirements (baseline 6 liters), tracheal secretions at baseline with no increase in quantity trach changed to cuffless by Dr. Street 09/09 cont mucomyst BID (6) Severe protein-calorie malnutrition: Plan: resolved. Peg tube replaced 09/25 - Dr Rhodes Most recent albumin 4.1 Phos wnl Weight is stable cont current tube feeding regimen per nutrition. (7) History of DVT (deep vein thrombosis): Plan: RLE DVT discovered 11/2022 in [place]. Had been on Eliquis 5mg BID since 12/12/22. Eliquis dosage reduced to 2.5mg BID earlier in this hospitalization for prophylaxis (8) History of nontraumatic rupture of cerebral aneurysm: Plan: Patient is nonverbal at baseline with chronic contractures in all 4 extremities, has eye opening, roving eye movements, grimacing, sleep-wake cycles. Functional quadriplegia. CT head shows encephalomalacia and good shunt placement . He unfortunately suffered a ruptured brain aneurysm and SAH 08/2022. Status post craniotomy and evacuation of hematoma. 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 He has a ventriculoperitoneal shunt in place. Known resultant severe autonomic dysfunction / paroxysmal sympathetic hyperactivity / autonomic storm which is controlled on medications and has the potential to be confused with sepsis. No issues with storming in quite some time. NO changes in any chronic meds for his autonomic storming (9) Autonomic dysfunction: Plan: No recent issues. Continue dantrolene and bromocriptine. Continue gabapentin and baclofen for spasticity, Continue scop patch and tylenol scheduled. (10) Cardiomyopathy: Plan: last echo 07/11/23 - low normal EF 50-55%. No acute current problems. Continue metoprolol 12.5mg BID. No evidence of decompensation on exam. weight is stable. no edema. (11) Tracheostomy status: Plan: cont local trach care. 09/10/23 - trach changed to 8.0 uncuffed tracheostomy tube by Dr. Street suctioning prn. cont mucomyst nebs BID cont albuterol prn (12) Candidiasis: Plan: has required topical anti-yeast powders & diflucan off/on during this stay overall this has improved significantly / resolved (13) Onychia of toe: Plan: RIGHT great toe --> resolved no recurrence (14) Vitamin D insufficiency: Plan: 25-OH vit D level - 23.5 start vitamin D 5000 IU daily via PEG recheck a level in 6-8 weeks Plan of note - development of clear fluid-filled blisters - could this be a bullous disease?? if he continues to have these blisters then consider derm consultation trach changed 09/09 peg tube changed 09/25 condom cath placed 10/25 social work continues to search for SNF that take care of Trach patients -- no facilities with beds there has been discussion, however, about a facility in [place] that potentially could take Ry? I left message for patient's mom on her voicemail - 11/13 Admission and Anticipated Discharge Date Admission Date: July 18, 2023 Subjective no events no changes in status no changes in O2 requirements stooling Review of Systems Review of Systems: Unobtainable due to cognitive status Physical Exam Physical Exam: gen - NAD, sleeping; occasional grimace, coughing at times head - deformity right side from prior craniotomy neck - no JVD; trach present heart - RRR, s1 s2, no murmur lungs - CTA b/l; decreased BS L base only abd - soft NT BS+; PEG tube site clean; mild distension - chronic ext - no edema b/l, pulses 2+ b/l skin - right lateral thigh with circular areas of post-inflammatory hyperpigmentation from prior bullae/blisters -- continue to heal/resolve; there is 1 new tiny blister on the anterior right prox thigh - unchanged today; no erythema neuro - contractures Results & Data Results & Data Vital Signs (Past 12 Hours) Vital Signs Temp Pulse Resp BP Pulse Ox O2 Del Method O2 Flow Rate 11/16/23 20:17 36.5 C 73 16 109/60 92 Trach Collar 6 11/16/23 19:23 72 18 98 Trach Collar 6 11/16/23 14:21 36.8 C 79 16 114/74 98 Trach Collar 6 FiO2 11/16/23 20:17 11/16/23 19:23 29 11/16/23 14:21 Laboratory Results Laboratory Results - last 24 hr 11/16/23 05:17 WBC 5.83 RBC 4.02 L Hgb 12.1 L Hct 38.1 L MCV 94.8 MCH 30.1 MCHC 31.8 L RDW Std Deviation 50.2 H RDW Coeff of Dario 14.6 H Plt Count 208 MPV 12.4 Sodium 141 Potassium 4.0 Chloride 104 Carbon Dioxide 32 Anion Gap 5 BUN 33 H Creatinine 0.47 L Est Cr Clr Drug Dosing 182.1 Est GFR ( Amer) > 150.0 Est GFR (Non-Af Amer) 146.1 BUN/Creatinine Ratio 70.2 H Glucose 101 H Calcium 9.2 Magnesium 1.9 Total Bilirubin 0.4 AST 16 ALT 26 Alkaline Phosphatase 63 Total Protein 7.3 Albumin 4.0 Globulin 3.3 Albumin/Globulin Ratio 1.2 25-OH Vitamin D Total 23.5 L TSH 2.428 Free T4 0.83 PG Care Time/CCT Total # of Minutes Spent Total Time Spent with Patient: Total time spent is greater than 50% in coordination of care (as documented) at patient's floor/unit and/or counseling patient: Coding Level of Care Code 11316 SUB INP/OBS CARE 1/25MIN Diagnoses Decubitus ulcer of sacral region, stage 4 L89.154 Bacteremia due to Pseudomonas R78.81; B96.5 Catheter-associated urinary tract infection T83.511A; N39.0 Chronic osteomyelitis of sacrum M86.68 Hospital acquired PNA J18.9; Y95 Severe protein-calorie malnutrition E43 History of DVT (deep vein thrombosis) Z86.718 History of nontraumatic rupture of cerebral aneurysm Z86.79 Autonomic dysfunction G90.9 Cardiomyopathy I42.9 Tracheostomy status Z93.0 Candidiasis B37.9 Onychia of toe L03.039 Vitamin D insufficiency E55.9
--- NOTE | 2023-11-17 20:28 | Hospitalist Progress Note ---
Date of Service November 17, 2023 Assessment & Plan (1) Decubitus ulcer of sacral region, stage 4: Plan: Present on admission. IMPROVING - s/p debridement in the OR by Dr Issa on 07/31/23. - Wound vac placed on 08/01. Wound vac then changed to a pulsating irrigation woundvac on 08/21/23. - Due to lack of improvement and worsening appearance of his ulcer he underwent repeat debridement in the OR by Dr Dorsey on 08/25/23. - on 09/04 the woundvac was removed due to candidiasis (extensive) in sacral area. Treated with fluconazole. Woundvac ultimately placed back. Continues with woundvac exchanges M/W/F by Sherie Metcalf & I heard back from plastic surgery - at this time surgery is not advised; ongoing wound care recommended only no evidence on exam of infection per wound care appreciate assistance by Ms Jesus and her wound care team all routine labs 11/16/23 were stable including albumin and hemoglobin (2) Bacteremia due to Pseudomonas: Plan: resolved s/p 14 days of IV cefepime --> abx d/c on 10/25/23 source - urinary tract no infectious issues since that previous bacteremia episode (3) Catheter-associated urinary tract infection: Plan: late September 2023 2nd pseudomonas resolved lewis exchanged on 10/24/23, then at family request was removed on 10/26/23 and replaced with condom cath since the exchange he fortunately has not had urinary retention (has had such in the past) (4) Chronic osteomyelitis of sacrum: Plan: intra-op culture from 07/31 with MSSA, pseudomonas, providencia, and anaerobes. Sacral bone biopsy 08/24 with VRE and 2-week course of linezolid completed 09/13/23. He has not been on dedicated abx since August 2023 for the sacrum continue woundvac as in #1 above there has been no palpable bone or visible bone since early in the hospitalization (5) Hospital acquired PNA: Plan: resolved stable pulmonary status on his chronic O2 Earlier this admission --> LLL pneumonia. Due to pseudomonas infection. Chronology of events: 08/01 - cxr with worsening infiltrates on left 08/03 - collapse LLL 08/03 - bronchoscopy by Dr Blancas with mucous plugging found in the left-sided bronchial tree s/p removal; 08/07 - s/p bronch by Dr Lock - minimal secretions LLL, no plugs; thick secretions in trach, however 08/09 - bronch cx - pseudomonas, intermediate resistance 08/09 - changed zosyn to cefepime 08/22 - cxr - ongoing LLL infiltrates/effusion - similar to previous imaging 09/17 - cxr showed improved aeration within the left lung base 10/11 - cxr with LLL infiltrate but stable serial lung exams have been stable stable O2 sats, no increased O2 requirements (baseline 6 liters), tracheal secretions at baseline with no increase in quantity trach changed to cuffless by Dr. Street 09/09 cont mucomyst BID today he had copious secretions with crackles/wheezes - requested prn duoneb with suctioning if secretions change in thickness/color/amount, o2 requirement increases, etc --> obtain CXR (6) Severe protein-calorie malnutrition: Plan: resolved. Peg tube replaced 09/25 - Dr Rhodes Most recent albumin 4.1 Phos wnl Weight is stable cont current tube feeding regimen per nutrition. (7) History of DVT (deep vein thrombosis): Plan: RLE DVT discovered 11/2022 in [place]. Had been on Eliquis 5mg BID since 12/12/22. Eliquis dosage reduced to 2.5mg BID earlier in this hospitalization for prophylaxis (8) History of nontraumatic rupture of cerebral aneurysm: Plan: Patient is nonverbal at baseline with chronic contractures in all 4 extremities, has eye opening, roving eye movements, grimacing, sleep-wake cycles. Functional quadriplegia. CT head shows encephalomalacia and good shunt placement . He unfortunately suffered a ruptured brain aneurysm and SAH 08/2022. Status post craniotomy and evacuation of hematoma. 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 He has a ventriculoperitoneal shunt in place. Known resultant severe autonomic dysfunction / paroxysmal sympathetic hyperactivity / autonomic storm which is controlled on medications and has the potential to be confused with sepsis. No issues with storming in quite some time. NO changes in any chronic meds for his autonomic storming (9) Autonomic dysfunction: Plan: No recent issues. Continue dantrolene and bromocriptine. Continue gabapentin and baclofen for spasticity, Continue scop patch and tylenol scheduled. (10) Cardiomyopathy: Plan: last echo 07/11/23 - low normal EF 50-55%. No acute current problems. Continue metoprolol 12.5mg BID. No evidence of decompensation on exam. weight is stable. no edema. (11) Tracheostomy status: Plan: cont local trach care. 09/10/23 - trach changed to 8.0 uncuffed tracheostomy tube by Dr. Street suctioning prn. cont mucomyst nebs BID cont albuterol prn (12) Candidiasis: Plan: has required topical anti-yeast powders & diflucan off/on during this stay overall this has improved significantly / resolved (13) Onychia of toe: Plan: RIGHT great toe --> resolved no recurrence (14) Vitamin D insufficiency: Plan: 25-OH vit D level - 23.5 vitamin D 5000 IU daily via PEG recheck a level in 6-8 weeks Plan of note - development of clear fluid-filled blisters - could this be a bullous disease?? if he continues to have these blisters then consider derm consultation trach changed 09/09 peg tube changed 09/25 condom cath placed 10/25 social work continues to search for SNF that take care of Trach patients -- no facilities with beds there has been discussion, however, about a facility in [place] that potentially could take Ry? I left message for patient's mom on her voicemail - 11/13 Admission and Anticipated Discharge Date Admission Date: July 18, 2023 Subjective no events overnight during my visit he needed suctioning but despite him sounding wheezy and crackly his o2 sats on usual 6 L were normal +stool this am tolerating tube feedings Review of Systems Review of Systems: Unobtainable due to cognitive status Physical Exam Physical Exam: gen - NAD, sleeping; occasional grimace, coughing at times, needing to be fields ctioned head - deformity right side from prior craniotomy neck - no JVD; trach present heart - RRR, s1 s2, no murmur lungs - crackles/wheezes anteriorly b/l; decreased BS L base only; no increased work of breathing abd - soft NT BS+; PEG tube site clean; mild distension - chronic ext - no edema b/l, pulses 2+ b/l skin - right lateral thigh with circular areas of post-inflammatory hyperpigment ation from prior bullae/blisters -- continue to heal/resolve; there is 1 new blister on the anterior right prox thigh - unchanged; no erythema neuro - contractures Results & Data Results & Data Vital Signs (Past 12 Hours) Vital Signs Temp Pulse Pulse Resp BP Pulse Ox O2 Del Method 11/17/23 19:34 36.8 C 83 14 109/69 97 Trach Collar 11/17/23 18:20 81 18 98 Trach Collar 11/17/23 14:55 36.6 C 81 16 120/82 98 Trach Collar O2 Flow Rate FiO2 11/17/23 19:34 6 11/17/23 18:20 6 28 11/17/23 14:55 6 PG Care Time/CCT Total # of Minutes Spent Total Time Spent with Patient: Total time spent is greater than 50% in coordination of care (as documented) at patient's floor/unit and/or counseling patient: Coding Level of Care Code 24787 SUB INP/OBS CARE 1/25MIN Diagnoses Decubitus ulcer of sacral region, stage 4 L89.154 Bacteremia due to Pseudomonas R78.81; B96.5 Catheter-associated urinary tract infection T83.511A; N39.0 Chronic osteomyelitis of sacrum M86.68 Hospital acquired PNA J18.9; Y95 Severe protein-calorie malnutrition E43 History of DVT (deep vein thrombosis) Z86.718 History of nontraumatic rupture of cerebral aneurysm Z86.79 Autonomic dysfunction G90.9 Cardiomyopathy I42.9 Tracheostomy status Z93.0 Candidiasis B37.9 Onychia of toe L03.039 Vitamin D insufficiency E55.9
[2023-11-18] MEDS: TUBE FEEDING WATER FLUSH PEG SCH (15:35)
--- NOTE | 2023-11-18 17:00 | Hospitalist Progress Note ---
Date of Service November 18, 2023 Assessment & Plan (1) Decubitus ulcer of sacral region, stage 4: Plan: Present on admission. IMPROVING - s/p debridement in the OR by Dr Issa on 07/31/23. - Wound vac placed on 08/01. Wound vac then changed to a pulsating irrigation woundvac on 08/21/23. - Due to lack of improvement and worsening appearance of his ulcer he underwent repeat debridement in the OR by Dr Dorsey on 08/25/23. - on 09/04 the woundvac was removed due to candidiasis (extensive) in sacral area. Treated with fluconazole. Woundvac ultimately placed back. Continues with woundvac exchanges M/W/F by Sherie Metcalf & I heard back from plastic surgery - at this time surgery is not advised; ongoing wound care recommended only no evidence on exam of infection per wound care appreciate assistance by Ms Jesus and her wound care team all routine labs 11/16/23 were stable including albumin and hemoglobin (2) Bacteremia due to Pseudomonas: Plan: Bactrermia due to pseudomonas CAUTI late September 2023 Treated with 14 days cefepime and resolved Now with condom cath (3) Chronic osteomyelitis of sacrum: Plan: intra-op culture from 07/31 with MSSA, pseudomonas, providencia, and anaerobes. Sacral bone biopsy 08/24 with VRE and 2-week course of linezolid completed 09/13/23. He has not been on dedicated abx since August 2023 for the sacrum there has been no palpable bone or visible bone since early in the hospitalization (4) Hospital acquired PNA: Plan: LLL pseudomonas pneumonia 07/2023 treated mainly with cefepime Required bronchoscopies for mucus plugging trach changed to cuffless by Dr. Street 09/09 cont mucomyst BID - has had recurrent mucus plugging when this is changed to PRN increased secretions 11/16 - suctioned, nebs. Monitor, obtain CXR if persistent/recurring (5) Severe protein-calorie malnutrition: Plan: Continue TF via PEG Most recent albumin 4.1 (6) History of DVT (deep vein thrombosis): Plan: RLE DVT discovered 11/2022 in [place]. Had been on Eliquis 5mg BID since 12/12/22. Eliquis dosage reduced to 2.5mg BID earlier in this hospitalization for prophylaxis (7) History of nontraumatic rupture of cerebral aneurysm: Plan: Patient is nonverbal at baseline with chronic contractures in all 4 extremities, has eye opening, roving eye movements, grimacing, sleep-wake cycles. Functional quadriplegia. CT head shows encephalomalacia and good shunt placement . He unfortunately suffered a ruptured brain aneurysm and SAH 08/2022. Status post craniotomy and evacuation of hematoma. 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 He has a ventriculoperitoneal shunt in place. Known resultant severe autonomic dysfunction / paroxysmal sympathetic hyperactivity / autonomic storm which is controlled on medications and has the potential to be confused with sepsis. No issues with storming in quite some time. NO changes in any chronic meds for his autonomic storming (8) Autonomic dysfunction: Plan: No recent issues. Continue dantrolene and bromocriptine. Continue gabapentin and baclofen for spasticity, Continue scop patch and tylenol scheduled. (9) Cardiomyopathy: Plan: last echo 07/11/23 - low normal EF 50-55%. No acute current problems. Continue metoprolol 12.5mg BID. has had no volume overload/edema and is not on diuretics (10) Tracheostomy status: Plan: cont local trach care. 09/10/23 - trach changed to 8.0 uncuffed tracheostomy tube by Dr. Street (11) Candidiasis: Plan: has required topical anti-yeast powders & diflucan off/on during this stay overall this has improved significantly / resolved (12) Vitamin D insufficiency: Plan: 25-OH vit D level - 23.5 vitamin D 5000 IU daily via PEG recheck a level in 6-8 weeks Plan monitor blisters - I see one on hip 11/17 - very thin-walled and clear fluid filled. trach changed 09/09 peg tube changed 09/25 condom cath placed 10/25 social work continues to search for SNF that take care of Trach patients Admission and Anticipated Discharge Date Admission Date: July 18, 2023 Subjective nonverbal, no events Physical Exam Physical Exam: PHYSICAL EXAMINATION Last 24h vital signs reviewed, see documentation in flowsheet General: eyes open HEENT: R skull deformity unchanged. trach site anterior neck cdi Lungs: slightly coarse BS anteriorly bilaterally, nonlabored. Heart: Reg no mrg Abdomen: soft nondistended. +BT. gtube LUQ : condom cath, urine in bag clear yellow Extremities: Warm, dry, well-perfused. No extremity edema. diffuse sarcopenia present. Skin: one 2 cm thin bulla on R hip. Reviewed sacral wound photo from 11/13 clean base with granulation tissue, appears to have some filling in and less und ermining than previously Neuro: eyes open, roving eye movements. he has flexion contractures of both wrists, right elbow, bilateral lower extremities. Psych: unable to assess Results & Data Results & Data Vital Signs (Past 12 Hours) Vital Signs Temp Pulse Resp BP Pulse Ox O2 Del Method O2 Flow Rate 11/18/23 14:54 37.0 C 68 18 120/82 98 Trach Collar 7.0 11/18/23 08:00 Trach Collar 6 11/18/23 07:35 70 16 100 Trach Collar 6 11/18/23 07:14 36.5 C 72 18 115/81 97 Trach Collar 6.0 FiO2 11/18/23 14:54 11/18/23 08:00 11/18/23 07:35 28 11/18/23 07:14 PG Care Time/CCT Total # of Minutes Spent Total Time Spent with Patient: Total time spent is greater than 50% in coordination of care (as documented) at patient's floor/unit and/or counseling patient: Coding Level of Care Code 59495 SUB INP/OBS CARE 07/17MIN Diagnoses Decubitus ulcer of sacral region, stage 4 L89.154 Bacteremia due to Pseudomonas R78.81; B96.5 Chronic osteomyelitis of sacrum M86.68 Hospital acquired PNA J18.9; Y95 Severe protein-calorie malnutrition E43 History of DVT (deep vein thrombosis) Z86.718 History of nontraumatic rupture of cerebral aneurysm Z86.79 Autonomic dysfunction G90.9 Cardiomyopathy I42.9 Tracheostomy status Z93.0 Candidiasis B37.9 Vitamin D insufficiency E55.9
[2023-11-18] MEDS: PEPTAMEN 1.5 CAL 1,000 ML BAG PEG SCH (21:28)
--- NOTE | 2023-11-19 18:29 | Hospitalist Progress Note ---
Date of Service November 19, 2023 Assessment & Plan (1) Decubitus ulcer of sacral region, stage 4: Plan: Present on admission. IMPROVING - s/p debridement in the OR by Dr Issa on 07/31/23. - Wound vac placed on 08/01. Wound vac then changed to a pulsating irrigation woundvac on 08/21/23. - Due to lack of improvement and worsening appearance of his ulcer he underwent repeat debridement in the OR by Dr Dorsey on 08/25/23. - on 09/04 the woundvac was removed due to candidiasis (extensive) in sacral area. Treated with fluconazole. Woundvac ultimately placed back. Continues with woundvac exchanges M/W/F by Sherie Metcalf & I heard back from plastic surgery - at this time surgery is not advised; ongoing wound care recommended only no evidence on exam of infection per wound care appreciate assistance by Ms Jesus and her wound care team all routine labs 11/16/23 were stable including albumin and hemoglobin (2) Bacteremia due to Pseudomonas: Plan: Bactrermia due to pseudomonas CAUTI late September 2023 Treated with 14 days cefepime and resolved Now with condom cath (3) Chronic osteomyelitis of sacrum: Plan: intra-op culture from 07/31 with MSSA, pseudomonas, providencia, and anaerobes. Sacral bone biopsy 08/24 with VRE and 2-week course of linezolid completed 09/13/23. He has not been on dedicated abx since August 2023 for the sacrum there has been no palpable bone or visible bone since early in the hospitalization (4) Hospital acquired PNA: Plan: LLL pseudomonas pneumonia 07/2023 treated mainly with cefepime Required bronchoscopies for mucus plugging trach changed to cuffless by Dr. Street 09/09 cont mucomyst BID - has had recurrent mucus plugging when this is changed to PRN increased secretions 11/16 - suctioned, nebs. seems improved (5) Severe protein-calorie malnutrition: Plan: Continue TF via PEG Most recent albumin 4.1 (6) History of DVT (deep vein thrombosis): Plan: RLE DVT discovered 11/2022 in [place]. Had been on Eliquis 5mg BID since 12/12/22. Eliquis dosage reduced to 2.5mg BID earlier in this hospitalization for prophylaxis (7) History of nontraumatic rupture of cerebral aneurysm: Plan: Patient is nonverbal at baseline with chronic contractures in all 4 extremities, has eye opening, roving eye movements, grimacing, sleep-wake cycles. Functional quadriplegia. CT head shows encephalomalacia and good shunt placement . He unfortunately suffered a ruptured brain aneurysm and SAH 08/2022. Status post craniotomy and evacuation of hematoma. 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 He has a ventriculoperitoneal shunt in place. Known resultant severe autonomic dysfunction / paroxysmal sympathetic hyperactivity / autonomic storm which is controlled on medications and has the potential to be confused with sepsis. No issues with storming in quite some time. NO changes in any chronic meds for his autonomic storming (8) Autonomic dysfunction: Plan: No recent issues. Continue dantrolene and bromocriptine. Continue gabapentin and baclofen for spasticity, Continue scop patch and tylenol scheduled. (9) Cardiomyopathy: Plan: last echo 07/11/23 - low normal EF 50-55%. No acute current problems. Continue metoprolol 12.5mg BID. has had no volume overload/edema and is not on diuretics (10) Tracheostomy status: Plan: cont local trach care. 09/10/23 - trach changed to 8.0 uncuffed tracheostomy tube by Dr. Street (11) Candidiasis: Plan: has required topical anti-yeast powders & diflucan off/on during this stay overall this has improved significantly / resolved (12) Vitamin D insufficiency: Plan: 25-OH vit D level - 23.5 vitamin D 5000 IU daily via PEG recheck a level in 6-8 weeks (mid December) Plan monitor blisters - I see one on hip 11/17 - very thin-walled and clear fluid filled. confirmed this site was a place where his feeding tube was in contact with his skin trach changed 09/09 peg tube changed 09/25 condom cath placed 10/25 social work continues to search for SNF that take care of Trach patients Admission and Anticipated Discharge Date Admission Date: July 18, 2023 Subjective no events, eyes open, observed wound VAC changed today Physical Exam Physical Exam: PHYSICAL EXAMINATION Last 24h vital signs reviewed, see documentation in flowsheet General: eyes open HEENT: R skull deformity unchanged. trach site anterior neck cdi Lungs: clear BS anteriorly and posteriorly bilaterally, nonlabored. Heart: Reg no mrg Abdomen: soft nondistended. +BT. gtube LUQ : condom cath, urine in bag clear yellow Extremities: Warm, dry, well-perfused. No extremity edema. diffuse sarcopenia present. Skin: one 2 cm thin bulla on R hip unchanged. sacral wound has improved with increased amount of pain granulation tissue in the base, decreased undermining now only present in 1 area, small area of darkening base of ulcer related to pressure Neuro: eyes open, roving eye movements. he has flexion contractures of both wrists, right elbow, bilateral lower extremities. Psych: unable to assess Results & Data Results & Data Vital Signs (Past 12 Hours) Vital Signs Temp Pulse Resp BP Pulse Ox O2 Del Method O2 Flow Rate 11/19/23 15:01 36.8 C 92 H 18 113/75 96 Trach Collar 6.5 11/19/23 07:47 36.7 C 78 18 114/77 98 Trach Collar 6.5 11/19/23 07:40 Trach Collar 6 11/19/23 07:11 74 18 97 Trach Collar 6 FiO2 11/19/23 15:01 11/19/23 07:47 11/19/23 07:40 11/19/23 07:11 28 PG Care Time/CCT Total # of Minutes Spent Total Time Spent with Patient: Total time spent is greater than 50% in coordination of care (as documented) at patient's floor/unit and/or counseling patient: Coding Level of Care Code 08742 SUB INP/OBS CARE 1/25MIN Diagnoses Decubitus ulcer of sacral region, stage 4 L89.154 Bacteremia due to Pseudomonas R78.81; B96.5 Chronic osteomyelitis of sacrum M86.68 Hospital acquired PNA J18.9; Y95 Severe protein-calorie malnutrition E43 History of DVT (deep vein thrombosis) Z86.718 History of nontraumatic rupture of cerebral aneurysm Z86.79 Autonomic dysfunction G90.9 Cardiomyopathy I42.9 Tracheostomy status Z93.0 Candidiasis B37.9 Vitamin D insufficiency E55.9
--- NOTE | 2023-11-20 15:26 | Hospitalist Progress Note ---
Date of Service November 20, 2023 Assessment & Plan (1) Decubitus ulcer of sacral region, stage 4: Plan: Present on admission. IMPROVING - s/p debridement in the OR by Dr Issa on 07/31/23. - Wound vac placed on 08/01. Wound vac then changed to a pulsating irrigation woundvac on 08/21/23. - Due to lack of improvement and worsening appearance of his ulcer he underwent repeat debridement in the OR by Dr Dorsey on 08/25/23. - on 09/04 the woundvac was removed due to candidiasis (extensive) in sacral area. Treated with fluconazole. Woundvac ultimately placed back. Continues with woundvac exchanges M/W/F by Sherie Jesus last week in October discussed with plastic surgeon regarding candidacy for flap/graft - at this time surgery is not advised; ongoing wound care recommended only no evidence on exam of infection per wound care appreciate assistance by Ms Jesus and her wound care team all routine labs 11/16/23 were stable including albumin and hemoglobin (2) Bacteremia due to Pseudomonas: Plan: Bactrermia due to pseudomonas CAUTI late September 2023 Treated with 14 days cefepime and resolved Now with condom cath (3) Chronic osteomyelitis of sacrum: Plan: intra-op culture from 07/31 with MSSA, pseudomonas, providencia, and anaerobes. Sacral bone biopsy 08/24 with VRE and 2-week course of linezolid completed 09/13/23. He has not been on dedicated abx since August 2023 for the sacrum there has been no palpable bone or visible bone since early in the hospitalization (4) Hospital acquired PNA: Plan: LLL pseudomonas pneumonia 07/2023 treated mainly with cefepime Required bronchoscopies for mucus plugging trach changed to cuffless by Dr. Street 09/09 cont mucomyst BID - has had recurrent mucus plugging when this is changed to PRN (5) Severe protein-calorie malnutrition: Plan: Continue TF via PEG with protein supplements Most recent albumin 4.1 (6) History of DVT (deep vein thrombosis): Plan: RLE DVT discovered 11/2022 in [place]. Had been on Eliquis 5mg BID since 12/12/22. Eliquis dosage reduced to 2.5mg BID earlier in this hospitalization for prophylaxis (7) History of nontraumatic rupture of cerebral aneurysm: Plan: Patient is nonverbal at baseline with chronic contractures in all 4 extremities, has eye opening, roving eye movements, grimacing, sleep-wake cycles. Functional quadriplegia. CT head shows encephalomalacia and good shunt placement . He unfortunately suffered a ruptured brain aneurysm and SAH 08/2022. Status post craniotomy and evacuation of hematoma. 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 He has a ventriculoperitoneal shunt in place. Known resultant severe autonomic dysfunction / paroxysmal sympathetic hyperactivity / autonomic storm which is controlled on medications and has the potential to be confused with sepsis. No issues with storming in quite some time. NO changes in any chronic meds for his autonomic storming (8) Autonomic dysfunction: Plan: No recent issues. Continue dantrolene and bromocriptine. Continue gabapentin and baclofen for spasticity, Continue scop patch and tylenol scheduled. (9) Cardiomyopathy: Plan: last echo 07/11/23 - low normal EF 50-55%. No acute current problems. Continue metoprolol 12.5mg BID. has had no volume overload/edema and is not on diuretics (10) Tracheostomy status: Plan: cont local trach care. 09/10/23 - trach changed to 8.0 uncuffed tracheostomy tube by Dr. Street (11) Candidiasis: Plan: has required topical anti-yeast powders & diflucan off/on during this stay overall this has improved significantly / resolved (12) Vitamin D insufficiency: Plan: 25-OH vit D level - 23.5 vitamin D 5000 IU daily via PEG recheck a level in 6-8 weeks (mid December) Plan trach changed 09/09 peg tube changed 09/25 condom cath placed 10/25 social work continues to search for SNF that take care of Trach patients Admission and Anticipated Discharge Date Admission Date: July 18, 2023 Subjective no events, awake eyes are open Physical Exam Physical Exam: PHYSICAL EXAMINATION Last 24h vital signs reviewed, see documentation in flowsheet General: eyes open HEENT: R skull deformity unchanged. trach site anterior neck cdi Lungs: clear BS anteriorly and posteriorly bilaterally, nonlabored. Heart: Reg no mrg Abdomen: soft nondistended. +BT. gtube LUQ : condom cath, urine in bag clear yellow Extremities: Warm, dry, well-perfused. No extremity edema. diffuse sarcopenia present. Skin: one 2 cm thin bulla on R hip unchanged 11/19 Neuro: eyes open, roving eye movements, making characteristic lip pursing movements. he has flexion contractures of both wrists, right elbow, bilateral lower extremities. Psych: unable to assess Results & Data Results & Data Vital Signs (Past 12 Hours) Vital Signs Temp Pulse Pulse Resp BP Pulse Ox O2 Del Method 11/20/23 14:57 37.1 C 83 18 115/75 98 Trach Collar 11/20/23 08:00 Trach Collar 11/20/23 07:15 36.7 C 74 18 97/64 L 99 Trach Collar 11/20/23 06:57 75 18 98 Trach Collar O2 Flow Rate FiO2 11/20/23 14:57 6.5 11/20/23 08:00 6 11/20/23 07:15 6.5 11/20/23 06:57 6 28 PG Care Time/CCT Total # of Minutes Spent Total Time Spent with Patient: Total time spent is greater than 50% in coordination of care (as documented) at patient's floor/unit and/or counseling patient: Coding Level of Care Code 73045 SUB INP/OBS CARE /25MIN Diagnoses Decubitus ulcer of sacral region, stage 4 L89.154 Bacteremia due to Pseudomonas R78.81; B96.5 Chronic osteomyelitis of sacrum M86.68 Hospital acquired PNA J18.9; Y95 Severe protein-calorie malnutrition E43 History of DVT (deep vein thrombosis) Z86.718 History of nontraumatic rupture of cerebral aneurysm Z86.79 Autonomic dysfunction G90.9 Cardiomyopathy I42.9 Tracheostomy status Z93.0 Candidiasis B37.9 Vitamin D insufficiency E55.9
--- NOTE | 2023-11-21 14:15 | Hospitalist Progress Note ---
Date of Service November 21, 2023 Assessment & Plan (1) Decubitus ulcer of sacral region, stage 4: Plan: Present on admission. has had very slow improvement with ongoing wound care, several debridements, course of IV antibiotics for sacral osteomyelitis and prolonged treatment with wound VAC - 07/31/23 debridement in the OR by Dr Issa. Sacral bone exposed and initiated 6-weeks IV antibiotics for sacral osteomyelitis - 08/01 wounc vac placed - pulsating/irrigating wound vac - 08/24 repeat debridement in the OR by Dr Issa - for lack of improvement and worsening appearance of his ulcer, sacral bone biopsy - 09/04 vac removed for several days because of extensive sacral candidiasis. treated with fluconazole - late September developed dermatitis and blistering due to wound vac dressing, changed to duoderm and problem significantly improved - last week in October discussed with plastic surgeon regarding candidacy for flap/graft - at this time surgery is not advised; ongoing wound care recommended only Continues with wound vac exchanges M/W/F by Sherie Jesus all routine labs 11/16/23 were stable including albumin and hemoglobin (2) Bacteremia due to Pseudomonas: Plan: Bactrermia due to pseudomonas CAUTI late September 2023 Treated with 14 days cefepime and resolved Now with condom cath (3) Chronic osteomyelitis of sacrum: Plan: intra-op culture from 07/31 with MSSA, pseudomonas, providencia, and anaerobes. Sacral bone biopsy 08/24 with VRE and 2-week course of linezolid completed 09/13/23. He has not been on dedicated abx since August 2023 for the sacrum there has been no palpable bone or visible bone since early in the hospitalization (4) Hospital acquired PNA: Plan: LLL pseudomonas pneumonia 07/2023 treated mainly with cefepime Required bronchoscopies for mucus plugging trach changed to cuffless by Dr. Street 09/09 cont mucomyst BID - has had recurrent mucus plugging when this is changed to PRN (5) Severe protein-calorie malnutrition: Plan: Continue TF via PEG with protein supplements - talya, prosource bid Most recent albumin 4.1. Much improved since admission. (6) History of DVT (deep vein thrombosis): Plan: RLE DVT discovered 11/2022 in [place]. Had been on Eliquis 5mg BID since 12/12/22. Eliquis dosage reduced to 2.5mg BID earlier in this hospitalization for prophylaxis (7) History of nontraumatic rupture of cerebral aneurysm: Plan: Patient is nonverbal at baseline with chronic contractures in all 4 extremities, has eye opening, roving eye movements, grimacing, sleep-wake cycles. Functional quadriplegia. CT head shows encephalomalacia and good shunt placement . He unfortunately suffered a ruptured brain aneurysm and SAH 08/2022. Status post craniotomy and evacuation of hematoma. 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 He has a ventriculoperitoneal shunt in place. Known resultant severe autonomic dysfunction / paroxysmal sympathetic hyperactivity / autonomic storm which is controlled on medications and has the potential to be confused with sepsis. No issues with storming in quite some time. NO changes in any chronic meds for his autonomic storming (8) Autonomic dysfunction: Plan: No recent issues. Continue dantrolene and bromocriptine. Continue gabapentin and baclofen for spasticity, Continue scop patch and tylenol scheduled. (9) Cardiomyopathy: Plan: last echo 07/11/23 - low normal EF 50-55%. No acute current problems. Continue metoprolol 12.5mg BID. has had no volume overload/edema and is not on diuretics (10) Tracheostomy status: Plan: cont local trach care. 09/10/23 - trach changed to 8.0 uncuffed tracheostomy tube by Dr. Street (11) Candidiasis: Plan: has required topical anti-yeast powders & diflucan off/on during this stay overall this has improved significantly / resolved (12) Vitamin D insufficiency: Plan: 25-OH vit D level - 23.5 vitamin D 5000 IU daily via PEG recheck a level in 6-8 weeks (mid December) Plan trach changed 09/09 peg tube changed 4/ condom cath placed 5/5 g-tube tending to clog - change MVI to liquid formulation social work continues to search for SNF that take care of Trach patients Admission and Anticipated Discharge Date Admission Date: July 18, 2023 Subjective wound VAC change was today, discussed with bedside RN she thinks multivitamin capsule may be causing feeding tube clogging issues, bedside RN's report secretions are at baseline Physical Exam Physical Exam: PHYSICAL EXAMINATION Last 24h vital signs reviewed, see documentation in flowsheet General: eyes open HEENT: R skull deformity unchanged. trach site anterior neck cdi Lungs: clear BS anteriorly and posteriorly bilaterally, nonlabored. Heart: Reg no mrg Abdomen: soft nondistended. +BT. gtube LUQ : condom cath, urine in bag clear yellow photo from sacral wound dressing change reviewed today, left side of wound appears to be healing well, right side with increased darkening and undermining compared to last photo I saw Extremities: Warm, dry, well-perfused. No extremity edema. diffuse sarcopenia present. Skin: one 2 cm thin bulla on R hip has ruptured as of midday today Neuro: eyes open, roving eye movements, making characteristic lip pursing movements. he has flexion contractures of both wrists, right elbow, bilateral lower extremities. Psych: unable to assess Results & Data Results & Data Vital Signs (Past 12 Hours) Vital Signs Temp Pulse Pulse Pulse Resp BP Pulse Ox 11/21/23 12:11 36.6 C 84 15 99/68 L 98 11/21/23 09:25 11/21/23 07:42 85 18 98 11/21/23 07:04 37.1 C 85 15 107/72 98 O2 Del Method O2 Flow Rate FiO2 11/21/23 12:11 Trach Collar 11/21/23 09:25 Nasal Cannula 6 11/21/23 07:42 Trach Collar 6 28 11/21/23 07:04 Trach Collar 6 PG Care Time/CCT Total # of Minutes Spent Total Time Spent with Patient: Total time spent is greater than 50% in coordination of care (as documented) at patient's floor/unit and/or counseling patient: Coding Level of Care Code 44611 SUB INP/OBS CARE 2/35MIN Diagnoses Decubitus ulcer of sacral region, stage 4 L89.154 Bacteremia due to Pseudomonas R78.81; B96.5 Chronic osteomyelitis of sacrum M86.68 Hospital acquired PNA J18.9; Y95 Severe protein-calorie malnutrition E43 History of DVT (deep vein thrombosis) Z86.718 History of nontraumatic rupture of cerebral aneurysm Z86.79 Autonomic dysfunction G90.9 Cardiomyopathy I42.9 Tracheostomy status Z93.0 Candidiasis B37.9 Vitamin D insufficiency E55.9
[2023-11-22] MEDS: MULTI VIT W/MINERALS LIQUID 15 ML UDC PEG SCH (09:01)
--- NOTE | 2023-11-22 14:08 | Hospitalist Progress Note ---
Date of Service November 22, 2023 Assessment & Plan (1) Decubitus ulcer of sacral region, stage 4: Plan: Present on admission. has had very slow improvement with ongoing wound care, several debridements, course of IV antibiotics for sacral osteomyelitis and prolonged treatment with wound VAC - 07/31/23 debridement in the OR by Dr Issa. Sacral bone exposed and initiated 6-weeks IV antibiotics for sacral osteomyelitis - 08/01 wounc vac placed - pulsating/irrigating wound vac - 08/24 repeat debridement in the OR by Dr Issa - for lack of improvement and worsening appearance of his ulcer, sacral bone biopsy - 09/04 vac removed for several days because of extensive sacral candidiasis. treated with fluconazole - late September developed dermatitis and blistering due to wound vac dressing, changed to duoderm and problem significantly improved - last week in October discussed with plastic surgeon regarding candidacy for flap/graft - at this time surgery is not advised; ongoing wound care recommended only Continues with wound vac exchanges M/W/F by Sherie Jesus all routine labs 11/16/23 were stable including albumin and hemoglobin no changes to plan of care 11/21 (2) Bacteremia due to Pseudomonas: Plan: Bactrermia due to pseudomonas CAUTI late September 2023 Treated with 14 days cefepime and resolved Now with condom cath (3) Chronic osteomyelitis of sacrum: Plan: intra-op culture from 07/31 with MSSA, pseudomonas, providencia, and anaerobes. Sacral bone biopsy 08/24 with VRE and 2-week course of linezolid completed 09/13/23. He has not been on dedicated abx since August 2023 for the sacrum there has been no palpable bone or visible bone since early in the hospitalization (4) Hospital acquired PNA: Plan: LLL pseudomonas pneumonia 07/2023 treated mainly with cefepime Required bronchoscopies for mucus plugging trach changed to cuffless by Dr. Street 09/09 cont mucomyst BID - has had recurrent mucus plugging when this is changed to PRN (5) Severe protein-calorie malnutrition: Plan: Continue TF via PEG with protein supplements - talya, prosource bid Most recent albumin 4.1. Much improved since admission. (6) History of DVT (deep vein thrombosis): Plan: RLE DVT discovered 11/2022 in [place]. Had been on Eliquis 5mg BID since 12/12/22. Eliquis dosage reduced to 2.5mg BID earlier in this hospitalization for prophylaxis (7) History of nontraumatic rupture of cerebral aneurysm: Plan: Patient is nonverbal at baseline with chronic contractures in all 4 extremities, has eye opening, roving eye movements, grimacing, sleep-wake cycles. Functional quadriplegia. CT head shows encephalomalacia and good shunt placement . He unfortunately suffered a ruptured brain aneurysm and SAH 08/2022. Status post craniotomy and evacuation of hematoma. 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 He has a ventriculoperitoneal shunt in place. Known resultant severe autonomic dysfunction / paroxysmal sympathetic hyperactivity / autonomic storm which is controlled on medications and has the potential to be confused with sepsis. No issues with storming in quite some time. NO changes in any chronic meds for his autonomic storming (8) Autonomic dysfunction: Plan: No recent issues. Continue dantrolene and bromocriptine. Continue gabapentin and baclofen for spasticity, Continue scop patch and tylenol scheduled. (9) Cardiomyopathy: Plan: last echo 07/11/23 - low normal EF 50-55%. No acute current problems. Continue metoprolol 12.5mg BID. has had no volume overload/edema and is not on diuretics (10) Tracheostomy status: Plan: cont local trach care. 09/10/23 - trach changed to 8.0 uncuffed tracheostomy tube by Dr. Street (11) Candidiasis: Plan: has required topical anti-yeast powders & diflucan off/on during this stay overall this has improved significantly / resolved (12) Vitamin D insufficiency: Plan: 25-OH vit D level - 23.5 vitamin D 5000 IU daily via PEG recheck a level in 6-8 weeks (mid December) Plan Ordered weekly labs for 11/22 - CBC BMP albumin trach changed 09/09 peg tube changed 09/25 condom cath placed / g-tube tending to clog - changed MVI to liquid formulation social work continues to search for SNF that take care of Trach patients Admission and Anticipated Discharge Date Admission Date: July 18, 2023 Subjective No changes last 24 hours nonverbal and unable to give history Physical Exam Physical Exam: PHYSICAL EXAMINATION Last 24h vital signs reviewed, see documentation in flowsheet no change in exam 6/ General: eyes open HEENT: R skull deformity unchanged. trach site anterior neck cdi Lungs: clear BS anteriorly and posteriorly bilaterally, nonlabored. Heart: Reg no mrg Abdomen: soft nondistended. +BT. gtube LUQ. G-tube site without erythema or drainage : condom cath, urine in bag clear yellow Extremities: Warm, dry, well-perfused. No extremity edema. diffuse sarcopenia present. Skin: one 2 cm thin bulla on R hip has ruptured - no surrounding erythema Neuro: eyes open, roving eye movements, making characteristic lip pursing movements. he has flexion contractures of both wrists, right elbow, bilateral lower extremities. Psych: unable to assess Results & Data Results & Data Vital Signs (Past 12 Hours) Vital Signs Temp Pulse Resp BP Pulse Ox O2 Del Method O2 Flow Rate 11/22/23 08:00 Trach Collar 6 11/22/23 07:59 75 16 100 Trach Collar 6 11/22/23 07:39 37.1 C 76 15 112/73 100 Trach Collar 6 FiO2 11/22/23 08:00 11/22/23 07:59 28 11/22/23 07:39 PG Care Time/CCT Total # of Minutes Spent Total Time Spent with Patient: Total time spent is greater than 50% in coordination of care (as documented) at patient's floor/unit and/or counseling patient: Coding Level of Care Code 24708 SUB INP/OBS CARE 1/25MIN Diagnoses Decubitus ulcer of sacral region, stage 4 L89.154 Bacteremia due to Pseudomonas R78.81; B96.5 Chronic osteomyelitis of sacrum M86.68 Hospital acquired PNA J18.9; Y95 Severe protein-calorie malnutrition E43 History of DVT (deep vein thrombosis) Z86.718 History of nontraumatic rupture of cerebral aneurysm Z86.79 Autonomic dysfunction G90.9 Cardiomyopathy I42.9 Tracheostomy status Z93.0 Candidiasis B37.9 Vitamin D insufficiency E55.9
[2023-11-23 06:49] LABS: Hematocrit (blood only) 37.8 % (42.0-52.0); Hemoglobin 12.1 g/dl (14.0-18.0); Mean Corpuscular Hemoglobin 29.8 pg (25.0-34.0); Mean Corpuscular Volume 93.1 fL (80.0-100.0); Mean Platelet Volume 11.7 fL (9.4-12.4); Platelet Count 193 K/uL (130-400); RDW Coefficient of Variation 14.4 % (11.5-14.5); RDW Standard Deviation 48.8 fL (36.4-46.3); Red Blood Count 4.06 M/uL (4.70-6.10); White Blood Count 5.84 K/ul (4.8-10.8)
[2023-11-23 08:11] LABS: Anion Gap 7 (3-11); BUN Creatinine Ratio 70.5 (10-20); Blood Urea Nitrogen 31 mg/dl (6-23); Carbon Dioxide 28 mmol/L (21-32); Chloride 104 mmol/L (98-107); Creatinine Clr Calc Pharmacy 189.1 ml/min; Est GFR (African American) > 150.0 ml/min; Est GFR (Non-African American) > 150.0 ml/min; Glucose 119 mg/dl (70-99(Fasting)); Potassium 3.8 mmol/L (3.5-5.1); Sodium 139 mmol/L (136-145)
--- NOTE | 2023-11-23 14:23 | Hospitalist Progress Note ---
Date of Service November 23, 2023 Assessment & Plan (1) Decubitus ulcer of sacral region, stage 4: Plan: Present on admission. has had very slow improvement with ongoing wound care, several debridements, course of IV antibiotics for sacral osteomyelitis and prolonged treatment with wound VAC - 07/31/23 debridement in the OR by Dr Issa. Sacral bone exposed and initiated 6-weeks IV antibiotics for sacral osteomyelitis - 08/01 wounc vac placed - pulsating/irrigating wound vac - 08/24 repeat debridement in the OR by Dr Issa - for lack of improvement and worsening appearance of his ulcer, sacral bone biopsy - 09/04 vac removed for several days because of extensive sacral candidiasis. treated with fluconazole - late September developed dermatitis and blistering due to wound vac dressing, changed to duoderm and problem significantly improved - last week in October discussed with plastic surgeon regarding candidacy for flap/graft - at this time surgery is not advised; ongoing wound care recommended only Continues with wound vac exchanges M/W/F by Sherie Jesus routine labs 11/22 reviewed, hemoglobin remains stable, no leukocytosis, BUN consistently elevated slightly improved after increased water flushes, creatinine normal and unchanged, albumin remains normal at 4.0 no changes to plan of care 11/22 (2) Bacteremia due to Pseudomonas: Plan: Bactrermia due to pseudomonas CAUTI late September 2023 Treated with 14 days cefepime and resolved Now with condom cath (3) Chronic osteomyelitis of sacrum: Plan: intra-op culture from 07/31 with MSSA, pseudomonas, providencia, and anaerobes. Sacral bone biopsy 08/24 with VRE and 2-week course of linezolid completed 09/13/23. He has not been on dedicated abx since August 2023 for the sacrum there has been no palpable bone or visible bone since early in the hospitalization (4) Hospital acquired PNA: Plan: LLL pseudomonas pneumonia 07/2023 treated mainly with cefepime Required bronchoscopies for mucus plugging trach changed to cuffless by Dr. Street 09/09 cont mucomyst BID - has had recurrent mucus plugging when this is changed to PRN (5) Severe protein-calorie malnutrition: Plan: Continue TF via PEG with protein supplements - talya, prosource bid Most recent albumin 4.0. Much improved since admission. (6) History of DVT (deep vein thrombosis): Plan: RLE DVT discovered 11/2022 in [place]. Had been on Eliquis 5mg BID since 12/12/22. Eliquis dosage reduced to 2.5mg BID earlier in this hospitalization for prophylaxis (7) History of nontraumatic rupture of cerebral aneurysm: Plan: Patient is nonverbal at baseline with chronic contractures in all 4 extremities, has eye opening, roving eye movements, grimacing, sleep-wake cycles. Functional quadriplegia. CT head shows encephalomalacia and good shunt placement . He unfortunately suffered a ruptured brain aneurysm and SAH 08/2022. Status post craniotomy and evacuation of hematoma. 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 He has a ventriculoperitoneal shunt in place. Known resultant severe autonomic dysfunction / paroxysmal sympathetic hyperactivity / autonomic storm which is controlled on medications and has the potential to be confused with sepsis. No issues with storming in quite some time. NO changes in any chronic meds for his autonomic storming (8) Autonomic dysfunction: Plan: No recent issues. Continue dantrolene and bromocriptine. Continue gabapentin and baclofen for spasticity, Continue scop patch and tylenol scheduled. (9) Cardiomyopathy: Plan: last echo 07/11/23 - low normal EF 50-55%. No acute current problems. Continue metoprolol 12.5mg BID. has had no volume overload/edema and is not on diuretics (10) Tracheostomy status: Plan: cont local trach care. 09/10/23 - trach changed to 8.0 uncuffed tracheostomy tube by Dr. Street (11) Candidiasis: Plan: has required topical anti-yeast powders & diflucan off/on during this stay overall this has improved significantly / resolved (12) Vitamin D insufficiency: Plan: 25-OH vit D level - 23.5 vitamin D 5000 IU daily via PEG recheck a level in 6-8 weeks (mid December) Plan weekly labs due 11/29 trach changed 09/09 peg tube changed 09/25 condom cath placed 10/25 social work continues to search for SNF that take care of Trach patients Admission and Anticipated Discharge Date Admission Date: July 18, 2023 Subjective No events, Ry's mother is visiting today Physical Exam 2 Physical Exam: PHYSICAL EXAMINATION Last 24h vital signs reviewed, see documentation in flowsheet General: eyes open HEENT: R skull deformity unchanged. trach site anterior neck cdi Lungs: nonlabored respiratory effort clear to auscultation bilaterally no rhonchi rales or wheezes Heart: Reg no mrg Abdomen: soft nondistended. +BT. gtube LUQ. : condom cath, urine in bag clear yellow Extremities: Warm, dry, well-perfused. No extremity edema. diffuse sarcopenia present. Skin: 2 cm diameter area of erythema site of ruptured thin bulla on R hip - superficial, no drainage, no surrounding erythema Neuro: eyes open, roving eye movements. he has flexion contractures of both wrists, right elbow, bilateral lower extremities. Psych: unable to assess Results & Data Results & Data Vital Signs (Past 12 Hours) Vital Signs Temp Pulse Resp BP Pulse Ox O2 Del Method O2 Flow Rate 11/23/23 07:45 37.0 C 86 16 112/75 96 Trach Collar 6 11/23/23 07:15 76 20 98 Trach Collar 6 11/23/23 07:00 Trach Collar 6 FiO2 11/23/23 07:45 11/23/23 07:15 28 11/23/23 07:00 Laboratory Results 11/23/23 06:29 11/23/23 06:29 PG Care Time/CCT Total # of Minutes Spent Total Time Spent with Patient: Total time spent is greater than 50% in coordination of care (as documented) at patient's floor/unit and/or counseling patient: Coding Level of Care Code 23240 SUB INP/OBS CARE 2/35MIN Diagnoses Decubitus ulcer of sacral region, stage 4 L89.154 Bacteremia due to Pseudomonas R78.81; B96.5 Chronic osteomyelitis of sacrum M86.68 Hospital acquired PNA J18.9; Y95 Severe protein-calorie malnutrition E43 History of DVT (deep vein thrombosis) Z86.718 History of nontraumatic rupture of cerebral aneurysm Z86.79 Autonomic dysfunction G90.9 Cardiomyopathy I42.9 Tracheostomy status Z93.0 Candidiasis B37.9 Vitamin D insufficiency E55.9
--- NOTE | 2023-11-24 16:17 | Hospitalist Progress Note ---
Date of Service November 24, 2023 Assessment & Plan (1) Decubitus ulcer of sacral region, stage 4: Plan: Present on admission. has had very slow improvement with ongoing wound care, several debridements, course of IV antibiotics for sacral osteomyelitis and prolonged treatment with wound VAC - 07/31/23 debridement in the OR by Dr Issa. Sacral bone exposed and initiated 6-weeks IV antibiotics for sacral osteomyelitis - 08/01 wounc vac placed - pulsating/irrigating wound vac - 08/24 repeat debridement in the OR by Dr Issa - for lack of improvement and worsening appearance of his ulcer, sacral bone biopsy - 09/04 vac removed for several days because of extensive sacral candidiasis. treated with fluconazole - late September developed dermatitis and blistering due to wound vac dressing, changed to duoderm and problem significantly improved - last week in October discussed with plastic surgeon regarding candidacy for flap/graft - at this time surgery is not advised; ongoing wound care recommended only Continues with wound vac exchanges M/W/F by Sherie Jesus -wound slowly improving routine labs 11/22 reviewed, hemoglobin remains stable, no leukocytosis, BUN consistently elevated slightly improved after increased water flushes, creatinine normal and unchanged, albumin remains normal at 4.0 no changes to plan of care 11/23 (2) Bacteremia due to Pseudomonas: Plan: Bactrermia due to pseudomonas CAUTI late September 2023 Treated with 14 days cefepime and resolved Now with condom cath (3) Chronic osteomyelitis of sacrum: Plan: intra-op culture from 07/31 with MSSA, pseudomonas, providencia, and anaerobes. Sacral bone biopsy 08/24 with VRE and 2-week course of linezolid completed 09/13/23. He has not been on dedicated abx since August 2023 for the sacrum there has been no palpable bone or visible bone since early in the hospitalization (4) Hospital acquired PNA: Plan: LLL pseudomonas pneumonia 07/2023 treated mainly with cefepime Required bronchoscopies for mucus plugging trach changed to cuffless by Dr. Street 09/09 cont mucomyst BID - has had recurrent mucus plugging when this is changed to PRN (5) Severe protein-calorie malnutrition: Plan: Continue TF via PEG with protein supplements - talya, prosource bid Most recent albumin 4.0. Much improved since admission. (6) History of DVT (deep vein thrombosis): Plan: RLE DVT discovered 11/2022 in [place]. Had been on Eliquis 5mg BID since 12/12/22. Eliquis dosage reduced to 2.5mg BID earlier in this hospitalization for prophylaxis (7) History of nontraumatic rupture of cerebral aneurysm: Plan: Patient is nonverbal at baseline with chronic contractures in all 4 extremities, has eye opening, roving eye movements, grimacing, sleep-wake cycles. Functional quadriplegia. CT head shows encephalomalacia and good shunt placement . He unfortunately suffered a ruptured brain aneurysm and SAH 08/2022. Status post craniotomy and evacuation of hematoma. 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 He has a ventriculoperitoneal shunt in place. Known resultant severe autonomic dysfunction / paroxysmal sympathetic hyperactivity / autonomic storm which is controlled on medications and has the potential to be confused with sepsis. No issues with storming in quite some time. NO changes in any chronic meds for his autonomic storming (8) Autonomic dysfunction: Plan: No recent issues. Continue dantrolene and bromocriptine. Continue gabapentin and baclofen for spasticity, Continue scop patch and tylenol scheduled. (9) Cardiomyopathy: Plan: last echo 07/11/23 - low normal EF 50-55%. No acute current problems. Continue metoprolol 12.5mg BID. has had no volume overload/edema and is not on diuretics (10) Tracheostomy status: Plan: cont local trach care. 09/10/23 - trach changed to 8.0 uncuffed tracheostomy tube by Dr. Street (11) Candidiasis: Plan: has required topical anti-yeast powders & diflucan off/on during this stay overall this has improved significantly / resolved (12) Vitamin D insufficiency: Plan: 25-OH vit D level - 23.5 vitamin D 5000 IU daily via PEG recheck a level in 6-8 weeks (mid December) Plan weekly labs due 11/29 trach changed 09/09 peg tube changed 09/25 condom cath placed 10/25 I updated Ry's mom briefly in person on 11/22 potential discharge midweek to SNF in [place] Admission and Anticipated Discharge Date Admission Date: July 18, 2023 Subjective vac change today no events Physical Exam Physical Exam: PHYSICAL EXAMINATION Last 24h vital signs reviewed, see documentation in flowsheet General: eyes open HEENT: R skull deformity unchanged. trach site anterior neck cdi Lungs: nonlabored respiratory effort clear to auscultation bilaterally no rhonchi rales or wheezes Heart: Reg no mrg Abdomen: soft nondistended. +BT. gtube LUQ. : condom cath, urine in bag clear yellow Extremities: Warm, dry, well-perfused. No extremity edema. diffuse sarcopenia present. Sacral wound photo 11/23 - some patches of dark tissue R side of wound improved, pink granulation tissue over most of base, still some undermining R side, no evidence of infection Skin: 2 cm diameter area of erythema site of ruptured thin bulla on R hip - superficial, no drainage, no surrounding erythema, healing Neuro: eyes open, roving eye movements. he has flexion contractures of both wrists, right elbow, bilateral lower extremities. Psych: unable to assess Results & Data Results & Data Vital Signs (Past 12 Hours) Vital Signs Temp Pulse Pulse Resp BP Pulse Ox O2 Del Method 11/24/23 14:53 36.8 C 78 17 112/76 97 Trach Collar 11/24/23 12:22 37.2 C 74 20 110/74 98 Trach Collar 11/24/23 08:27 37.3 C 85 16 115/75 100 Trach Collar 11/24/23 07:48 82 18 97 Trach Collar 11/24/23 07:15 Trach Collar O2 Flow Rate FiO2 11/24/23 14:53 6 11/24/23 12:22 11/24/23 08:27 6 11/24/23 07:48 28 11/24/23 07:15 6 PG Care Time/CCT Total # of Minutes Spent Total Time Spent with Patient: Total time spent is greater than 50% in coordination of care (as documented) at patient's floor/unit and/or counseling patient: Coding Level of Care Code 29455 SUB INP/OBS CARE 1/25MIN Diagnoses Decubitus ulcer of sacral region, stage 4 L89.154 Bacteremia due to Pseudomonas R78.81; B96.5 Chronic osteomyelitis of sacrum M86.68 Hospital acquired PNA J18.9; Y95 Severe protein-calorie malnutrition E43 History of DVT (deep vein thrombosis) Z86.718 History of nontraumatic rupture of cerebral aneurysm Z86.79 Autonomic dysfunction G90.9 Cardiomyopathy I42.9 Tracheostomy status Z93.0 Candidiasis B37.9 Vitamin D insufficiency E55.9
--- NOTE | 2023-11-25 19:13 | Hospitalist Progress Note ---
Date of Service November 25, 2023 Assessment & Plan (1) Decubitus ulcer of sacral region, stage 4: Plan: Present on admission. IMPROVING nicely appreciate assistance by Ms Jesus and her wound care team - s/p debridement in the OR by Dr Issa on 07/31/23. - Wound vac placed on 08/01. Wound vac then changed to a pulsating irrigation woundvac on 08/21/23. - Due to lack of improvement and worsening appearance of his ulcer he underwent repeat debridement in the OR by Dr Dorsey on 08/25/23. - on 09/04 the woundvac was removed due to candidiasis (extensive) in sacral area. Treated with fluconazole. Woundvac ultimately placed back. Continues with woundvac exchanges M/W/F by Sherie Jesus informally had asked plastic surgery about 7-10 days ago about whether patient would be a candidate for a skin graft - at that time surgery not advised; ongoing wound care recommended only all routine labs 11/23/23 were stable including albumin of 4 and hemoglobin of 12.1 (2) Bacteremia due to Pseudomonas: Plan: resolved s/p 14 days of IV cefepime --> abx d/c on 10/25/23 source - urinary tract no infectious issues since that previous bacteremia episode (3) Catheter-associated urinary tract infection: Plan: late September 2023 2nd pseudomonas resolved lewis exchanged on 10/24/23, then at family request was removed on 10/26/23 and replaced with condom cath since the exchange he fortunately has not had urinary retention (has had such in the past) cont condom cath (4) Chronic osteomyelitis of sacrum: Plan: intra-op culture from 07/31 with MSSA, pseudomonas, providencia, and anaerobes. Sacral bone biopsy 08/24 with VRE and 2-week course of linezolid completed 09/13/23 . He has not been on dedicated abx since August 2023 for the sacrum continue woundvac as in #1 above there has been no palpable bone or visible bone since early in the hospitalization (5) Hospital acquired PNA: Plan: resolved stable pulmonary status on his chronic O2 - 6 liters serial lung exams have been stable Earlier this admission --> LLL pneumonia. Due to pseudomonas infection. Chronology of events: 08/01 - cxr with worsening infiltrates on left 08/03 - collapse LLL 08/03 - bronchoscopy by Dr Blancas with mucous plugging found in the left-sided bronchial tree s/p removal; 08/07 - s/p bronch by Dr Lock - minimal secretions LLL, no plugs; thick secretions in trach, however 08/09 - bronch cx - pseudomonas, intermediate resistance 08/09 - changed zosyn to cefepime 08/22 - cxr - ongoing LLL infiltrates/effusion - similar to previous imaging 09/17 - cxr showed improved aeration within the left lung base 10/11 - cxr with LLL infiltrate but stable of note - trach changed to cuffless by Dr. Street 09/09; will inquire with pulmonary whether any additional trach changes are needed prior to his discharge cont mucomyst BID cont duonebs prn (6) Severe protein-calorie malnutrition: Plan: resolved. Peg tube replaced 09/25 - Dr Rhodes Most recent albumin 4 Phos wnl Other lytes stable Weight is stable cont current tube feeding regimen per nutrition. (7) History of DVT (deep vein thrombosis): Plan: RLE DVT discovered 11/2022 in [place]. Had been on Eliquis 5mg BID since 12/12/22. Eliquis dosage reduced to 2.5mg BID earlier in this hospitalization for prophylaxis (8) History of nontraumatic rupture of cerebral aneurysm: Plan: Patient is nonverbal at baseline with chronic contractures in all 4 extremities, has eye opening, roving eye movements, grimacing, sleep-wake cycles. Functional quadriplegia. CT head shows encephalomalacia and good shunt placement . He unfortunately suffered a ruptured brain aneurysm and SAH 08/2022. Status post craniotomy and evacuation of hematoma. 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 He has a ventriculoperitoneal shunt in place. Known resultant severe autonomic dysfunction / paroxysmal sympathetic hyperactivity / autonomic storm which is controlled on medications and has the potential to be confused with sepsis. No issues with storming in quite some time. NO changes in any chronic meds for his autonomic storming (9) Autonomic dysfunction: Plan: No recent issues. Continue dantrolene and bromocriptine. Continue gabapentin and baclofen for spasticity, Continue scop patch and tylenol scheduled. (10) Cardiomyopathy: Plan: last echo 07/11/23 - low normal EF 50-55%. No acute current problems. Continue metoprolol 12.5mg BID. No evidence of decompensation on exam during this entire admission. no edema. (11) Tracheostomy status: Plan: cont local trach care. 09/10/23 - trach changed to 8.0 uncuffed tracheostomy tube by Dr. Street suctioning prn. cont mucomyst nebs BID cont albuterol prn (12) Candidiasis: Plan: has required topical anti-yeast powders & diflucan off/on during this stay resolved (13) Onychia of toe: Plan: RIGHT great toe --> resolved no recurrence (14) Vitamin D insufficiency: Plan: 25-OH vit D level - 23.5 vitamin D 5000 IU daily via PEG recheck a level in 6-8 weeks Plan of note - development of clear fluid-filled blisters - could this be a bullous disease?? if he continues to have these blisters then consider derm consultation recheck malodor tomorrow - if it persists consider full oral cavity check by oral surgeon? trach changed 09/09 peg tube changed 09/25 condom cath placed 10/25 dispo - possible SNF placement in [place] later this week? Admission and Anticipated Discharge Date Admission Date: July 18, 2023 Subjective no events overnight had woundvac exchanged yesterday per usual schedule of M/W/F no changes in chronic trach secretions having normal BMs per staff no PEG tube feeding issues or intolerance possibly to have a bed at SNF this Friday? of note - during my exam - there was an odor from his mouth or trach?? Review of Systems Review of Systems: Unobtainable due to cognitive status (nonverbal) Physical Exam Physical Exam: gen - NAD, sleeping; occasional grimace like prior visits; malodor noted today - from oral cavity?? head - deformity right side from prior craniotomy left ear pinnae - no ulcer or cellulitis mouth - difficult to assess, but poor dentition noted neck - no JVD; trach present heart - RRR, s1 s2, no murmur lungs - CTA b/l with decreased BS L base only (chronic); no increased work of breathing abd - soft NT BS+; PEG tube site clean; mild distension - chronic ext - no edema b/l, pulses 2+ b/l skin - right lateral thigh with circular areas of post-inflammatory hyperpigmentation from prior bullae/blisters; previous blister on the anterior right prox thigh had ruptured and now is healing neuro - contractures Results & Data Results & Data Vital Signs (Past 12 Hours) Vital Signs Temp Pulse Resp BP BP Pulse Ox O2 Del Method 11/25/23 15:21 37.2 C 83 16 122/82 100 Trach Collar 11/25/23 08:15 Trach Collar 11/25/23 08:06 16 98 Trach Collar 11/25/23 07:29 36.7 C 79 16 114/80 98 Trach Collar O2 Flow Rate FiO2 11/25/23 15:21 6 11/25/23 08:15 6 11/25/23 08:06 6 28 11/25/23 07:29 6 PG Care Time/CCT Total # of Minutes Spent Total Time Spent with Patient: Total time spent is greater than 50% in coordination of care (as documented) at patient's floor/unit and/or counseling patient: Coding Level of Care Code 82960 SUB INP/OBS CARE 125MIN Diagnoses Decubitus ulcer of sacral region, stage 4 L89.154 Bacteremia due to Pseudomonas R78.81; B96.5 Catheter-associated urinary tract infection T83.511A; N39.0 Chronic osteomyelitis of sacrum M86.68 Hospital acquired PNA J18.9; Y95 Severe protein-calorie malnutrition E43 History of DVT (deep vein thrombosis) Z86.718 History of nontraumatic rupture of cerebral aneurysm Z86.79 Autonomic dysfunction G90.9 Cardiomyopathy I42.9 Tracheostomy status Z93.0 Candidiasis B37.9 Onychia of toe L03.039 Vitamin D insufficiency E55.9
--- NOTE | 2023-11-26 19:59 | Hospitalist Progress Note ---
Date of Service November 26, 2023 Assessment & Plan (1) Decubitus ulcer of sacral region, stage 4: Plan: Present on admission. cont to improve appreciate assistance by Ann Marie and her wound care team - s/p debridement in the OR by Dr Issa on 07/31/23. - Wound vac placed on 08/01. Wound vac then changed to a pulsating irrigation woundvac on 08/21/23. - Due to lack of improvement and worsening appearance of his ulcer he underwent repeat debridement in the OR by Dr Dorsey on 08/25/23. - on 09/04 the woundvac was removed due to candidiasis (extensive) in sacral area. Treated with fluconazole. Woundvac ultimately placed back. Continues with woundvac exchanges M/W/F by Sherie Jesus informally had asked plastic surgery about 10 days ago about whether patient would be a candidate for a skin graft - at that time surgery not advised; ongoing wound care recommended only all routine labs 11/23/23 were stable including albumin of 4 and hemoglobin of 12.1 (2) Bacteremia due to Pseudomonas: Plan: resolved s/p 14 days of IV cefepime --> abx d/c on 10/25/23 source - urinary tract no infectious issues since that previous bacteremia episode (3) Catheter-associated urinary tract infection: Plan: late September 2023 2nd pseudomonas resolved lewis exchanged on 10/24/23, then at family request was removed on 10/26/23 and replaced with condom cath since the exchange he fortunately has not had urinary retention (has had such in the past) cont condom cath (4) Chronic osteomyelitis of sacrum: Plan: intra-op culture from 07/31 with MSSA, pseudomonas, providencia, and anaerobes. Sacral bone biopsy 08/24 with VRE and 2-week course of linezolid completed 09/13/23. He has not been on dedicated abx since August 2023 for the sacrum continue woundvac as in #1 above there has been no palpable bone or visible bone since early in the hospitalization (5) Hospital acquired PNA: Plan: resolved stable pulmonary status on his chronic O2 - 6 liters serial lung exams have been stable Earlier this admission --> LLL pneumonia. Due to pseudomonas infection. Chronology of events: 08/01 - cxr with worsening infiltrates on left 08/03 - collapse LLL 08/03 - bronchoscopy by Dr Blancas with mucous plugging found in the left-sided bronchial tree s/p removal; 08/07 - s/p bronch by Dr Lock - minimal secretions LLL, no plugs; thick secretions in trach, however 08/09 - bronch cx - pseudomonas, intermediate resistance 08/09 - changed zosyn to cefepime 08/22 - cxr - ongoing LLL infiltrates/effusion - similar to previous imaging 09/17 - cxr showed improved aeration within the left lung base 10/11 - cxr with LLL infiltrate but stable of note - trach changed to cuffless by Dr. Street 09/09; will inquire with pulmonary whether any additional trach changes are needed prior to his discharge cont mucomyst BID cont duonebs prn (6) Severe protein-calorie malnutrition: Plan: resolved. Peg tube replaced 09/25 - Dr Rhodes Most recent albumin 4 Phos wnl Other lytes stable Weight is stable cont current tube feeding regimen per nutrition. (7) History of DVT (deep vein thrombosis): Plan: RLE DVT discovered 11/2022 in [place]. Had been on Eliquis 5mg BID since 12/12/22. Eliquis dosage reduced to 2.5mg BID earlier in this hospitalization for prophylaxis (8) History of nontraumatic rupture of cerebral aneurysm: Plan: Patient is nonverbal at baseline with chronic contractures in all 4 extremities, has eye opening, roving eye movements, grimacing, sleep-wake cycles. Functional quadriplegia. CT head shows encephalomalacia and good shunt placement . He unfortunately suffered a ruptured brain aneurysm and SAH 08/2022. Status post craniotomy and evacuation of hematoma. 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 He has a ventriculoperitoneal shunt in place. Known resultant severe autonomic dysfunction / paroxysmal sympathetic hyperactivity / autonomic storm which is controlled on medications and has the potential to be confused with sepsis. No issues with storming in quite some time. NO changes in any chronic meds for his autonomic storming (9) Autonomic dysfunction: Plan: No recent issues. Continue dantrolene and bromocriptine. Continue gabapentin and baclofen for spasticity, Continue scop patch and tylenol scheduled. (10) Cardiomyopathy: Plan: last echo 07/11/23 - low normal EF 50-55%. No acute current problems. Continue metoprolol 12.5mg BID. No evidence of decompensation on exam during this entire admission. no edema. (11) Tracheostomy status: Plan: cont local trach care. 09/10/23 - trach changed to 8.0 uncuffed tracheostomy tube by Dr. Street suctioning prn. cont mucomyst nebs BID cont albuterol prn (12) Candidiasis: Plan: has required topical anti-yeast powders & diflucan off/on during this stay resolved (13) Onychia of toe: Plan: RIGHT great toe --> resolved no recurrence (14) Vitamin D insufficiency: Plan: 25-OH vit D level - 23.5 vitamin D 5000 IU daily via PEG recheck a level in 6-8 weeks Plan of note - development of clear fluid-filled blisters - could this be a bullous disease?? if he continues to have these blisters then consider derm consultation the malodor I had smelled yesterday is resolved cont to monitor trach changed 09/09 peg tube changed 09/25 condom cath placed 10/25 dispo - possible SNF placement in [place] next 48 hours pt's mother updated by phone this evening did Xavier correspond with Dr Lock from pulmonary about exchanging his trach before d/c Admission and Anticipated Discharge Date Admission Date: July 18, 2023 Subjective heard from social work staff that [facility] [place] [facility] able to take Mr Viveros tomorrow they requested that his trach be changed prior to discharge called and spoke with pt's mother by phone - she is aware of the potential discharge this week no acute events per staff however, recent stools have been hard woundvac was exchanged today Review of Systems Review of Systems: Unobtainable due to cognitive status Physical Exam Physical Exam: gen - NAD, sleeping, unchanged exam head - deformity right side from prior craniotomy neck - no JVD; trach present heart - RRR, s1 s2, no murmur lungs - CTA b/l with mildly decreased BS L base only (chronic) abd - soft NT BS+; PEG tube site clean; mild to moderate distension - chronic ext - no edema b/l, pulses 2+ b/l skin - right lateral thigh with circular areas of post-inflammatory hyperpigmentation from prior bullae/blisters; previous blister on the anterior right prox thigh had ruptured and now is healing; no cellulitis neuro - contractures Results & Data Results & Data Vital Signs (Past 12 Hours) Vital Signs Temp Pulse Pulse Pulse Resp BP BP 11/26/23 19:37 76 18 11/26/23 16:08 37.2 C 87 16 105/69 11/26/23 15:32 37.4 C 79 11/26/23 13:27 34.7 C L 89 16 147/117 H 11/26/23 10:05 11/26/23 08:07 36.5 C 74 16 122/77 Pulse Ox O2 Del Method O2 Flow Rate FiO2 11/26/23 19:37 97 Trach Collar 6 28 11/26/23 16:08 99 Trach Collar 6 11/26/23 15:32 98 Trach Collar 6 11/26/23 13:27 99 Trach Collar 6 11/26/23 10:05 Trach Collar 6 11/26/23 08:07 99 Trach Collar 6 PG Care Time/CCT Total # of Minutes Spent Total Time Spent with Patient: Total time spent is greater than 50% in coordination of care (as documented) at patient's floor/unit and/or counseling patient: Coding Level of Care Code 64124 SUB INP/OBS CARE 07/17MIN Diagnoses Decubitus ulcer of sacral region, stage 4 L89.154 Bacteremia due to Pseudomonas R78.81; B96.5 Catheter-associated urinary tract infection T83.511A; N39.0 Chronic osteomyelitis of sacrum M86.68 Hospital acquired PNA J18.9; Y95 Severe protein-calorie malnutrition E43 History of DVT (deep vein thrombosis) Z86.718 History of nontraumatic rupture of cerebral aneurysm Z86.79 Autonomic dysfunction G90.9 Cardiomyopathy I42.9 Tracheostomy status Z93.0 Candidiasis B37.9 Onychia of toe L03.039 Vitamin D insufficiency E55.9
[2023-11-26] MEDS: SENNOSIDES 8.8 MG/5 ML UDC PEG SCH (21:33)
--- NOTE | 2023-11-27 16:06 | Pulmonology Progress Note ---
Date of Service November 27, 2023 Assessment & Plan (1) Tracheostomy status: (2) Pneumonia involving left lung: Plan 33-year-old complex male with past medical history of cardiomyopathy, PEG tube, ruptured cerebral aneurysm resulting in chronic trach dependence and and nonverbal state who is presenting with severe left-sided pneumonia. -- Left lung collapse S/p bronchoscopy 08/03/2023 with mucous plugging Bron culture growing Pseudomonas which is pansensitive except for meropenem --Trach dependent respiratory failure Continue with trach care Has size 8 cuffed Bronc culture growing Pseudomonas Plan: For tracheostomy change today Felice Su [phone], was called and verbal consent was obtained from her. Please note the above document was generated using voice recognition software. It may contain grammatical, syntax or spelling errors.Any formal questions or concerns about the content, text or information contained within the body of this dictation should be directly addressed to the provider for clarification. Admission and Anticipated Discharge Date Admission Date: July 18, 2023 Subjective Patient seen and examined at bedside. No acute distress. Patient is nonverbal. Size 8 cuffless trach seen. Pulmonary where reconsulted as patient is planning to go to long-term placement and last trach change was more than 3 months ago Has been afebrile. Saturating well on trach collar. Still spiking low-grade fever Review of Systems 2 Review of Systems: All systems reviewed & are unremarkable except as noted in Subjective Physical Exam 2 Physical Exam: Constitutional: No acute distress HEENT: PERRLA, positive size 8 trach Respiratory system: Decreased air entry bilaterally, no wheeze, no rhonchi, mild crackles bilateral lower lobes CVS: S1-S2 positive, no murmurs or gallops Abdomen: Soft, nontender, nondistended, positive bowel sounds x4 Extremities: +2 pulses bilaterally radialis/ dorsalis pedis, no cyanosis, no edema Neuro: Quadriplegic, not following any commands, spastic extremities Psych: Unable to assess G/U: Positive Silva Skin: no rashes, warm and dry Lymphatic: no cervical or axillary lymphadenopathy Results & Data Results & Data Vital Signs (Past 12 Hours) Vital Signs Temp Pulse Resp BP BP Pulse Ox O2 Del Method 11/27/23 15:33 37.4 C 81 16 115/76 96 Trach Collar 11/27/23 10:27 Trach Collar 11/27/23 07:47 36.8 C 66 16 106/69 99 Trach Collar 11/27/23 07:28 78 18 96 Trach Collar O2 Flow Rate FiO2 11/27/23 15:33 6 11/27/23 10:27 6 11/27/23 07:47 6 11/27/23 07:28 6 28 Laboratory Results 11/23/23 06:29 11/23/23 06:29 PG Care Time/CCT Total # of Minutes Spent Total Time Spent with Patient: Total time spent is greater than 50% in coordination of care (as documented) at patient's floor/unit and/or counseling patient: Coding Level of Care Code 53864 SUB INP/OBS CARE 2/35MIN Diagnoses Tracheostomy status Z93.0 Pneumonia involving left lung J18.9
--- NOTE | 2023-11-27 16:29 | Procedure Note ---
Procedure Note Date of Service November 27, 2023 Note Procedure: Tracheostomy change Social Services Coordinator: Dr. Dari Lock Indication: VDRF Consent: Verbal consent was obtained from patient's mother Anesthesia: 1% lidocaine jelly topical Procedure: Patient was placed in a supine position. The tracheostomy was suctioned first. Clear secretions were appreciated. The inner cannula was then removed from the tracheostomy. Size 8 un-cuffed nonfenestrated trach was changed to Size 8 un- cuffed n onfenestrated trach smoothly. Trach Shiley was inserted without any difficulty. No bleeding was appreciated postprocedure. Good expiratory flow appreciated from the trach. A soft trach collar was then connected to the tracheostomy to make sure it is in place. The patient appeared comfortable and vital signs were stable all throughout the procedure. Complications: None Coding CPT Codes Pulmonary/Thoracic - Pulmonary and Thoracic: 82082 Tracheotomy tube change prior to [place] ([id number]) [facility] [place] Codes (Charges) Pulmonary/Thoracic Procedure 1: Pulmonary and Thoracic: 63496 Tracheotomy tube change prior to Fistula
--- NOTE | 2023-11-27 17:01 | XRay Report ---
SINGLE VIEW CHEST CLINICAL HISTORY: Tracheostomy change. FINDINGS: An AP, portable, semierect chest radiograph is compared to study dated 10/12/2023. The [place] [facility] is mildly degraded by portable technique and patient rotation. The patient's hand partially ob scures the right lung base. A tracheostomy is in place and appears appropriately positioned. A shunt catheter traverses the left chest wall. The heart is enlarged. The pulmonary vasculature is nonconges [place]. There is bibasilar atelectasis, greater on the left. No airspace consolidation or large pleural effusion is identified. No pneumothorax is seen. The skeletal structures are osteopenic. The bony tho rax is grossly intact. IMPRESSION: 1. A tracheostomy is in place and appears appropriately positioned. 2. Cardiomegaly without radiographic evidence of congestive failure. 3. No airspace consolidation or large pleural effusion is identified. ACT 112: Negative or not required by law. Electronically signed by: Jayce Waite M.D. 11/27/2023 5:00 PM
--- NOTE | 2023-11-27 20:10 | Hospitalist Progress Note ---
Date of Service November 27, 2023 Assessment & Plan (1) Decubitus ulcer of sacral region, stage 4: Plan: Present on admission. cont to improve appreciate assistance by Ann Marie and her wound care team - s/p debridement in the OR by Dr Issa on 07/31/23. - Wound vac placed on 08/01. Wound vac then changed to a pulsating irrigation woundvac on 08/21/23. - Due to lack of improvement and worsening appearance of his ulcer he underwent repeat debridement in the OR by Dr Dorsey on 08/25/23. - on 09/04 the woundvac was removed due to candidiasis (extensive) in sacral area. Treated with fluconazole. Woundvac ultimately placed back. Continues with woundvac exchanges M/W/F by Sherie Jesus informally had asked plastic surgery about 10 days ago about whether patient would be a candidate for a skin graft - at that time surgery not advised; ongoing wound care recommended only all routine labs 11/23/23 were stable including albumin of 4 and hemoglobin of 12.1 (2) Bacteremia due to Pseudomonas: Plan: resolved s/p 14 days of IV cefepime --> abx d/c on 10/25/23 source - urinary tract no infectious issues since that previous bacteremia episode (3) Catheter-associated urinary tract infection: Plan: late September 2023 2nd pseudomonas resolved lewis exchanged on 10/24/23, then at family request was removed on 10/26/23 and replaced with condom cath since the exchange he fortunately has not had urinary retention (has had such in the past) cont condom cath (4) Chronic osteomyelitis of sacrum: Plan: intra-op culture from 07/31 with MSSA, pseudomonas, providencia, and anaerobes. Sacral bone biopsy 08/24 with VRE and 2-week course of linezolid completed 09/13/23. He has not been on dedicated abx since August 2023 for the sacrum continue woundvac as in #1 above there has been no palpable bone or visible bone since early in the hospitalization (5) Hospital acquired PNA: Plan: resolved stable pulmonary status on his chronic O2 - 6 liters serial lung exams have been stable Earlier this admission --> LLL pneumonia. Due to pseudomonas infection. Chronology of events: 08/01 - cxr with worsening infiltrates on left 08/03 - collapse LLL 08/03 - bronchoscopy by Dr Blancas with mucous plugging found in the left-sided bronchial tree s/p removal; 08/07 - s/p bronch by Dr Lock - minimal secretions LLL, no plugs; thick secretions in trach, however 08/09 - bronch cx - pseudomonas, intermediate resistance 08/09 - changed zosyn to cefepime 08/22 - cxr - ongoing LLL infiltrates/effusion - similar to previous imaging 09/17 - cxr showed improved aeration within the left lung base 10/11 - cxr with LLL infiltrate but stable of note - trach changed to cuffless by Dr. Street 09/09 trach exchanged again today, 11/27/23, by Dr Lock -- Size 8 un-cuffed nonfenestrated trach appreciate his assistance cont mucomyst BID cont duonebs prn (6) Severe protein-calorie malnutrition: Plan: resolved. Peg tube replaced 09/25 - Dr Rhodes Most recent albumin 4 Phos wnl Other lytes stable Weight is stable cont current tube feeding regimen per nutrition. (7) History of DVT (deep vein thrombosis): Plan: RLE DVT discovered 11/2022 in [place]. Had been on Eliquis 5mg BID since 12/12/22. Eliquis dosage reduced to 2.5mg BID earlier in this hospitalization for prophylaxis (8) History of nontraumatic rupture of cerebral aneurysm: Plan: Patient is nonverbal at baseline with chronic contractures in all 4 extremities, has eye opening, roving eye movements, grimacing, sleep-wake cycles. Functional quadriplegia. CT head shows encephalomalacia and good shunt placement . He unfortunately suffered a ruptured brain aneurysm and SAH 08/2022. Status post craniotomy and evacuation of hematoma. 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 He has a ventriculoperitoneal shunt in place. Known resultant severe autonomic dysfunction / paroxysmal sympathetic hyperactivity / autonomic storm which is controlled on medications and has the potential to be confused with sepsis. No issues with storming in quite some time. NO changes in any chronic meds for his autonomic storming (9) Autonomic dysfunction: Plan: No recent issues. Continue dantrolene and bromocriptine. Continue gabapentin and baclofen for spasticity, Continue scop patch and tylenol scheduled. (10) Cardiomyopathy: Plan: last echo 07/11/23 - low normal EF 50-55%. No acute current problems. Continue metoprolol 12.5mg BID. No evidence of decompensation on exam during this entire admission. no edema. (11) Tracheostomy status: Plan: cont local trach care. 09/10/23 - trach changed to 8.0 uncuffed tracheostomy tube by Dr. Street suctioning prn. cont mucomyst nebs BID cont albuterol prn (12) Candidiasis: Plan: has required topical anti-yeast powders & diflucan off/on during this stay resolved (13) Onychia of toe: Plan: RIGHT great toe --> resolved no recurrence (14) Vitamin D insufficiency: Plan: 25-OH vit D level - 23.5 vitamin D 5000 IU daily via PEG recheck a level in 6-8 weeks Plan of note - development of clear fluid-filled blisters - could this be a bullous disease?? if he continues to have these blisters then consider derm consultation trach exchanged 09/09 and 11/27/23 (Size 8 un-cuffed nonfenestrated trach) peg tube changed / condom cath placed / dispo - SNF placement in [place] next Friday pt's mother updated by phone yesterday evening Admission and Anticipated Discharge Date Admission Date: July 18, [address] Lock exchanged pt's trach today -- he has a Size 8 un-cuffed nonfenestrated trach no other issues per staff tolerating tube feedings SNF cannot take patient until next Friday Review of Systems Review of Systems: Unobtainable due to cognitive status Physical Exam Physical Exam: gen - NAD, sleeping, unchanged exam head - deformity right side from prior craniotomy neck - no JVD; trach present heart - RRR, s1 s2, no murmur lungs - CTA b/l but does have upper airway noises transmitted to the lungs due to trach secretions abd - soft NT BS+; PEG tube site clean; mild to moderate distension - chronic ext - no edema b/l, pulses 2+ b/l skin - right lateral thigh with circular areas of post-inflammatory hyperpigmentation from prior bullae/blisters; previous blister on the anterior right prox thigh had ruptured and now is healing; no cellulitis neuro - contractures Results & Data Results & Data Vital Signs (Past 12 Hours) Vital Signs Temp Pulse Resp BP Pulse Ox O2 Del Method O2 Flow Rate 11/27/23 19:46 37.1 C 87 16 105/72 98 Trach Collar 6 11/27/23 19:31 88 14 92 Trach Collar 6 11/27/23 15:33 37.4 C 81 16 115/76 96 Trach Collar 6 11/27/23 10:27 Trach Collar 6 FiO2 11/27/23 19:46 11/27/23 19:31 28 11/27/23 15:33 11/27/23 10:27 PG Care Time/CCT Total # of Minutes Spent Total Time Spent with Patient: Total time spent is greater than 50% in coordination of care (as documented) at patient's floor/unit and/or counseling patient: Coding Level of Care Code 32053 SUB INP/OBS CARE 07/17MIN Diagnoses Decubitus ulcer of sacral region, stage 4 L89.154 Bacteremia due to Pseudomonas R78.81; B96.5 Catheter-associated urinary tract infection T83.511A; N39.0 Chronic osteomyelitis of sacrum M86.68 Hospital acquired PNA J18.9; Y95 Severe protein-calorie malnutrition E43 History of DVT (deep vein thrombosis) Z86.718 History of nontraumatic rupture of cerebral aneurysm Z86.79 Autonomic dysfunction G90.9 Cardiomyopathy I42.9 Tracheostomy status Z93.0 Candidiasis B37.9 Onychia of toe L03.039 Vitamin D insufficiency E55.9
--- NOTE | 2023-11-28 19:50 | Hospitalist Progress Note ---
Date of Service November 28, 2023 Assessment & Plan (1) Decubitus ulcer of sacral region, stage 4: Plan: Present on admission. cont to slowly improve today's wound photo reviewed appreciate assistance by Ms Jesus and her wound care team - s/p debridement in the OR by Dr Issa on 07/31/23. - Wound vac placed on 08/01. Wound vac then changed to a pulsating irrigation woundvac on 08/21/23. - Due to lack of improvement and worsening appearance of his ulcer he underwent repeat debridement in the OR by Dr Dorsey on 08/25/23. - on 09/04 the woundvac was removed due to candidiasis (extensive) in sacral area. Treated with fluconazole. Woundvac ultimately placed back. Continues with woundvac exchanges M/W/F by Sherie Jesus informally had asked plastic surgery about 10 days ago about whether patient would be a candidate for a skin graft - at that time surgery not advised; ongoing wound care recommended only all routine labs 11/23/23 were stable including albumin of 4 and hemoglobin of 12.1 Ry will need to follow with either the [facility], [facility], or come to [facility] (2) Bacteremia due to Pseudomonas: Plan: resolved s/p 14 days of IV cefepime --> abx d/c on 10/25/23 source - urinary tract no infectious issues since that previous bacteremia episode (3) Catheter-associated urinary tract infection: Plan: late September 2023 2nd pseudomonas resolved lewis exchanged on 10/24/23, then at family request was removed on 10/26/23 and replaced with condom cath since the exchange he fortunately has not had urinary retention (has had such in the past) cont condom cath (4) Chronic osteomyelitis of sacrum: Plan: intra-op culture from 07/31 with MSSA, pseudomonas, providencia, and anaerobes. Sacral bone biopsy 08/24 with VRE and 2-week course of linezolid completed 09/13/23. He has not been on dedicated abx since August 2023 for the sacrum continue woundvac as in #1 above there has been no palpable bone or visible bone since early in the hospitalization (5) Hospital acquired PNA: Plan: resolved stable pulmonary status on his chronic O2 - 6 liters serial lung exams have been stable Earlier this admission --> LLL pneumonia. Due to pseudomonas infection. Chronology of events: 08/01 - cxr with worsening infiltrates on left 08/03 - collapse LLL 08/03 - bronchoscopy by Dr Blancas with mucous plugging found in the left-sided bronchial tree s/p removal; 08/07 - s/p bronch by Dr Lock - minimal secretions LLL, no plugs; thick secretions in trach, however 08/09 - bronch cx - pseudomonas, intermediate resistance 08/09 - changed zosyn to cefepime 08/22 - cxr - ongoing LLL infiltrates/effusion - similar to previous imaging 09/17 - cxr showed improved aeration within the left lung base 10/11 - cxr with LLL infiltrate but stable of note - trach changed to cuffless by Dr. Street 09/09 trach exchanged 11/27/23, by Dr Lock -- Size 8 un-cuffed nonfenestrated trach appreciate his assistance cont mucomyst BID cont duonebs prn (6) Severe protein-calorie malnutrition: Plan: resolved. Peg tube replaced 09/25 - Dr Case Most recent albumin 4 Phos wnl Other lytes stable Weight is stable cont current tube feeding regimen per nutrition. (7) History of DVT (deep vein thrombosis): Plan: RLE DVT discovered 11/2022 in [place]. Had been on Eliquis 5mg BID since 12/12/22. Eliquis dosage reduced to 2.5mg BID earlier in this hospitalization for prophylaxis (8) History of nontraumatic rupture of cerebral aneurysm: Plan: Patient is nonverbal at baseline with chronic contractures in all 4 extremities, has eye opening, roving eye movements, grimacing, sleep-wake cycles. Functional quadriplegia. CT head shows encephalomalacia and good shunt placement . He unfortunately suffered a ruptured brain aneurysm and SAH 08/2022. Status post craniotomy and evacuation of hematoma. 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 He has a ventriculoperitoneal shunt in place. Known resultant severe autonomic dysfunction / paroxysmal sympathetic hyperactivity / autonomic storm which is controlled on medications and has the potential to be confused with sepsis. No issues with storming in quite some time. NO changes in any chronic meds for his autonomic storming (9) Autonomic dysfunction: Plan: No recent issues. Continue dantrolene and bromocriptine. Continue gabapentin and baclofen for spasticity, Continue scop patch and tylenol scheduled. (10) Cardiomyopathy: Plan: last echo 07/11/23 - low normal EF 50-55%. No acute current problems. Continue metoprolol 12.5mg BID. No evidence of decompensation on exam during this entire admission. no edema. (11) Tracheostomy status: Plan: cont local trach care. 09/10/23 - trach changed to 8.0 uncuffed tracheostomy tube by Dr. Street trach exchanged 11/27/23, by Dr Lock -- Size 8 un-cuffed nonfenestrated trach suctioning prn. cont mucomyst nebs BID cont albuterol prn (12) Candidiasis: Plan: has required topical anti-yeast powders & diflucan off/on during this stay resolved (13) Onychia of toe: Plan: RIGHT great toe --> resolved no recurrence (14) Vitamin D insufficiency: Plan: 25-OH vit D level - 23.5 vitamin D 5000 IU daily via PEG recheck a level in 6-8 weeks Plan of note - development of clear fluid-filled blisters - could this be a bullous disease?? if he continues to have these blisters then consider derm consultation trach exchanged 09/09 and 11/27/23 (Size 8 un-cuffed nonfenestrated trach) peg tube changed 4/ condom cath placed 5/5 dispo - SNF placement in [place] next week (hopefully) pt's mother updated by phone this week will update her again later this weekend Admission and Anticipated Discharge Date Admission Date: July 18, 2023 Subjective no new issues woundvac exchanged today initial plan was d/c to SNF in [place] Friday but I spoke with case management and there are some potential snags that may delay the discharge stools are not hard/firm at this point; they are more soft now Review of Systems Review of Systems: Unobtainable due to cognitive status (nonverbal ) Physical Exam Physical Exam: gen - NAD, sleeping, unchanged exam; reflexive grimacing at times head - deformity right side from prior craniotomy neck - no JVD; trach present; clear secretions heart - RRR, s1 s2, no murmur lungs - CTA b/l; no wheezes or increased work of breathing abd - soft NT BS+; PEG tube site clean; distension improved ext - no edema b/l, pulses 2+ b/l skin - right lateral thigh with circular areas of post-inflammatory hyperpigmentation from prior bullae/blisters; previous blister on the anterior right prox thigh had ruptured and now is healing; no cellulitis neuro - contractures Results & Data Results & Data Vital Signs (Past 12 Hours) Vital Signs Temp Pulse Resp BP Pulse Ox O2 Del Method O2 Flow Rate 11/28/23 15:07 36.8 C 77 18 111/70 95 Trach Collar 11/28/23 08:15 Trach Collar 6 PG Care Time/CCT Total # of Minutes Spent Total Time Spent with Patient: Total time spent is greater than 50% in coordination of care (as documented) at patient's floor/unit and/or counseling patient: Coding Level of Care Code 52594 SUB INP/OBS CARE 1/25MIN Diagnoses Decubitus ulcer of sacral region, stage 4 L89.154 Bacteremia due to Pseudomonas R78.81; B96.5 Catheter-associated urinary tract infection T83.511A; N39.0 Chronic osteomyelitis of sacrum M86.68 Hospital acquired PNA J18.9; Y95 Severe protein-calorie malnutrition E43 History of DVT (deep vein thrombosis) Z86.718 History of nontraumatic rupture of cerebral aneurysm Z86.79 Autonomic dysfunction G90.9 Cardiomyopathy I42.9 Tracheostomy status Z93.0 Candidiasis B37.9 Onychia of toe L03.039 Vitamin D insufficiency E55.9
--- NOTE | 2023-11-29 18:44 | Hospitalist Progress Note ---
Date of Service November 29, 2023 Assessment & Plan (1) Decubitus ulcer of sacral region, stage 4: Plan: Present on admission. cont to slowly improve today's wound photo reviewed appreciate assistance by Ms Jesus and her wound care team - s/p debridement in the OR by Dr Issa on 07/31/23. - Wound vac placed on 08/01. Wound vac then changed to a pulsating irrigation woundvac on 08/21/23. - Due to lack of improvement and worsening appearance of his ulcer he underwent repeat debridement in the OR by Dr Dorsey on 08/25/23. - on 09/04 the woundvac was removed due to candidiasis (extensive) in sacral area. Treated with fluconazole. Woundvac ultimately placed back. Continues with woundvac exchanges M/W/F by Sherie Jesus informally had asked plastic surgery about 10 days ago about whether patient would be a candidate for a skin graft - at that time surgery not advised; ongoing wound care recommended only all routine labs 11/23/23 were stable including albumin of 4 and hemoglobin of 12.1 Ry will need to follow with either the [facility], [facility], or come to [facility] (2) Bacteremia due to Pseudomonas: Plan: resolved s/p 14 days of IV cefepime --> abx d/c on 10/25/23 source - urinary tract no infectious issues since that previous bacteremia episode (3) Catheter-associated urinary tract infection: Plan: late September 2023 2nd pseudomonas resolved lewis exchanged on 10/24/23, then at family request was removed on 10/26/23 and replaced with condom cath since the exchange he fortunately has not had urinary retention (has had such in the past) cont condom cath (4) Chronic osteomyelitis of sacrum: Plan: intra-op culture from 07/31 with MSSA, pseudomonas, providencia, and anaerobes. Sacral bone biopsy 08/24 with VRE and 2-week course of linezolid completed 09/13/23. He has not been on dedicated abx since August 2023 for the sacrum continue woundvac as in #1 above there has been no palpable bone or visible bone since early in the hospitalization (5) Hospital acquired PNA: Plan: resolved stable pulmonary status on his chronic O2 - 6 liters serial lung exams have been stable Earlier this admission --> LLL pneumonia. Due to pseudomonas infection. Chronology of events: 08/01 - cxr with worsening infiltrates on left 08/03 - collapse LLL 08/03 - bronchoscopy by Dr Blancas with mucous plugging found in the left-sided bronchial tree s/p removal; 08/07 - s/p bronch by Dr Lock - minimal secretions LLL, no plugs; thick secretions in trach, however 08/09 - bronch cx - pseudomonas, intermediate resistance 08/09 - changed zosyn to cefepime 08/22 - cxr - ongoing LLL infiltrates/effusion - similar to previous imaging 09/17 - cxr showed improved aeration within the left lung base 10/11 - cxr with LLL infiltrate but stable of note - trach changed to cuffless by Dr. Street 09/09 trach exchanged 11/27/23, by Dr Lock -- Size 8 un-cuffed nonfenestrated trach appreciate his assistance cont mucomyst BID cont duonebs prn (6) Severe protein-calorie malnutrition: Plan: resolved. Peg tube replaced 09/25 - Dr Case Most recent albumin 4 Phos wnl Other lytes stable Weight is stable cont current tube feeding regimen per nutrition. (7) History of DVT (deep vein thrombosis): Plan: RLE DVT discovered 11/2022 in [place]. Had been on Eliquis 5mg BID since 12/12/22. Eliquis dosage reduced to 2.5mg BID earlier in this hospitalization for prophylaxis (8) History of nontraumatic rupture of cerebral aneurysm: Plan: Patient is nonverbal at baseline with chronic contractures in all 4 extremities, has eye opening, roving eye movements, grimacing, sleep-wake cycles. Functional quadriplegia. CT head shows encephalomalacia and good shunt placement . He unfortunately suffered a ruptured brain aneurysm and SAH 08/2022. Status post craniotomy and evacuation of hematoma. 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 He has a ventriculoperitoneal shunt in place. Known resultant severe autonomic dysfunction / paroxysmal sympathetic hyperactivity / autonomic storm which is controlled on medications and has the potential to be confused with sepsis. No issues with storming in quite some time. NO changes in any chronic meds for his autonomic storming (9) Autonomic dysfunction: Plan: No recent issues. Continue dantrolene and bromocriptine. Continue gabapentin and baclofen for spasticity, Continue scop patch and tylenol scheduled. (10) Cardiomyopathy: Plan: last echo 07/11/23 - low normal EF 50-55%. No acute current problems. Continue metoprolol 12.5mg BID. No evidence of decompensation on exam during this entire admission. no edema. (11) Tracheostomy status: Plan: cont local trach care. 09/10/23 - trach changed to 8.0 uncuffed tracheostomy tube by Dr. Street trach exchanged 11/27/23, by Dr Lock -- Size 8 un-cuffed nonfenestrated trach suctioning prn. cont mucomyst nebs BID cont albuterol prn (12) Candidiasis: Plan: has required topical anti-yeast powders & diflucan off/on during this stay resolved (13) Onychia of toe: Plan: RIGHT great toe --> resolved no recurrence (14) Vitamin D insufficiency: Plan: 25-OH vit D level - 23.5 vitamin D 5000 IU daily via PEG recheck a level in 6-8 weeks Plan of note - development of clear fluid-filled blisters - could this be a bullous disease?? if he continues to have these blisters then consider derm consultation trach exchanged 09/09 and 11/27/23 (Size 8 un-cuffed nonfenestrated trach) peg tube changed 4/ condom cath placed 5/5 dispo - SNF placement in [place] next week pt's mother updated by phone this week will update her again later this weekend check CBC, BMP in am for stability along with phos level previous mag levels ALL wnl Admission and Anticipated Discharge Date Admission Date: July 18, 2023 Subjective no events overnight no new issues Review of Systems Review of Systems: Unobtainable due to cognitive status (nonverbal ) Physical Exam Physical Exam: gen - NAD, eyes open; reflexive grimacing at times head - deformity right side from prior craniotomy; just had bath - hair was combed & clean neck - no JVD; trach presents heart - RRR, s1 s2, no murmur lungs - CTA b/l; no wheezes or increased work of breathing abd - soft NT BS+; PEG tube site clean; distension similar to previous exams ext - no edema b/l, pulses 2+ b/l skin - right lateral thigh with circular areas of post-inflammatory hyperpigmentation from prior bullae/blisters; previous blister on the anterior right prox thigh had ruptured and now is healing; no cellulitis; no changes neuro - contractures Results & Data Results & Data Vital Signs (Past 12 Hours) Vital Signs Temp Pulse Pulse Resp BP Pulse Ox O2 Del Method 11/29/23 15:43 36.8 C 79 16 101/69 96 Trach Collar 11/29/23 09:30 Trach Collar 11/29/23 07:40 67 18 99 Trach Collar 11/29/23 07:28 36.8 C 70 16 99/66 L 99 Trach Collar O2 Flow Rate FiO2 11/29/23 15:43 6 11/29/23 09:30 6 28 11/29/23 07:40 6 28 11/29/23 07:28 6 PG Care Time/CCT Total # of Minutes Spent Total Time Spent with Patient: Total time spent is greater than 50% in coordination of care (as documented) at patient's floor/unit and/or counseling patient: Coding Level of Care Code 32417 SUB INP/OBS CARE 07/17MIN Diagnoses Decubitus ulcer of sacral region, stage 4 L89.154 Bacteremia due to Pseudomonas R78.81; B96.5 Catheter-associated urinary tract infection T83.511A; N39.0 Chronic osteomyelitis of sacrum M86.68 Hospital acquired PNA J18.9; Y95 Severe protein-calorie malnutrition E43 History of DVT (deep vein thrombosis) Z86.718 History of nontraumatic rupture of cerebral aneurysm Z86.79 Autonomic dysfunction G90.9 Cardiomyopathy I42.9 Tracheostomy status Z93.0 Candidiasis B37.9 Onychia of toe L03.039 Vitamin D insufficiency E55.9
[2023-11-30 08:01] LABS: Hematocrit (blood only) 39.5 % (42.0-52.0); Hemoglobin 12.7 g/dl (14.0-18.0); Mean Corpuscular Hemoglobin 30.1 pg (25.0-34.0); Mean Corpuscular Hgb Conc 32.2 g/dL (32.0-36.0); Mean Corpuscular Volume 93.6 fL (80.0-100.0); Mean Platelet Volume 10.9 fL (9.4-12.4); Platelet Count 243 K/uL (130-400); RDW Coefficient of Variation 14.3 % (11.5-14.5); RDW Standard Deviation 49.1 fL (36.4-46.3); Red Blood Count 4.22 M/uL (4.70-6.10); White Blood Count 6.22 K/ul (4.8-10.8)
[2023-11-30 08:17] LABS: Anion Gap 5 (3-11); BUN Creatinine Ratio 69.8 (10-20); Blood Urea Nitrogen 30 mg/dl (6-23); Calcium 9.4 mg/dl (8.6-10.3); Carbon Dioxide 31 mmol/L (21-32); Chloride 105 mmol/L (98-107); Creatinine Clr Calc Pharmacy 211.9 ml/min; Est GFR (African American) > 150.0 ml/min; Est GFR (Non-African American) > 150.0 ml/min; Glucose 100 mg/dl (70-99(Fasting)); Phosphorus 3.5 mg/dl (2.5-4.9); Potassium 3.8 mmol/L (3.5-5.1); Sodium 141 mmol/L (136-145)
--- NOTE | 2023-11-30 19:58 | Hospitalist Progress Note ---
Date of Service November 30, 2023 Assessment & Plan (1) Decubitus ulcer of sacral region, stage 4: Plan: Present on admission. cont to slowly improve today's wound photo reviewed appreciate assistance by Ms Jesus and her wound care team - s/p debridement in the OR by Dr Issa on 07/31/23. - Wound vac placed on 08/01. Wound vac then changed to a pulsating irrigation woundvac on 08/21/23. - Due to lack of improvement and worsening appearance of his ulcer he underwent repeat debridement in the OR by Dr Dorsey on 08/25/23. - on 09/04 the woundvac was removed due to candidiasis (extensive) in sacral area. Treated with fluconazole. Woundvac ultimately placed back. Continues with woundvac exchanges M/W/F by Sherie Jesus informally had asked plastic surgery about 10 days ago about whether patient would be a candidate for a skin graft - at that time surgery not advised; ongoing wound care recommended only all routine labs 11/23/23 were stable including albumin of 4 and hemoglobin of 12.1 Ry will need to follow with either the [place] [facility], [facility], or come to [facility] (2) Bacteremia due to Pseudomonas: Plan: resolved s/p 14 days of IV cefepime --> abx d/c on 10/25/23 source - urinary tract no infectious issues since that previous bacteremia episode (3) Catheter-associated urinary tract infection: Plan: late September 2023 2nd pseudomonas resolved lewis exchanged on 10/24/23, then at family request was removed on 10/26/23 and replaced with condom cath since the exchange he fortunately has not had urinary retention (has had such in the past) cont condom cath (4) Chronic osteomyelitis of sacrum: Plan: intra-op culture from 07/31 with MSSA, pseudomonas, providencia, and anaerobes. Sacral bone biopsy 08/24 with VRE and 2-week course of linezolid completed 09/13/23. He has not been on dedicated abx since August 2023 for the sacrum continue woundvac as in #1 above there has been no palpable bone or visible bone since early in the hospitalization (5) Hospital acquired PNA: Plan: resolved stable pulmonary status on his chronic O2 - 6 liters serial lung exams have been stable Earlier this admission --> LLL pneumonia. Due to pseudomonas infection. Chronology of events: 08/01 - cxr with worsening infiltrates on left 08/03 - collapse LLL 08/03 - bronchoscopy by Dr Blancas with mucous plugging found in the left-sided bronchial tree s/p removal; 08/07 - s/p bronch by Dr Lock - minimal secretions LLL, no plugs; thick secretions in trach, however 08/09 - bronch cx - pseudomonas, intermediate resistance 08/09 - changed zosyn to cefepime 08/22 - cxr - ongoing LLL infiltrates/effusion - similar to previous imaging 09/17 - cxr showed improved aeration within the left lung base 10/11 - cxr with LLL infiltrate but stable of note - trach changed to cuffless by Dr. Street 09/09 trach exchanged 11/27/23, by Dr Lock -- Size 8 un-cuffed nonfenestrated trach appreciate his assistance cont mucomyst BID cont duonebs prn (6) Severe protein-calorie malnutrition: Plan: resolved. Peg tube replaced 09/25 - Dr Case Most recent albumin 4 Phos wnl Other lytes stable Weight is stable cont current tube feeding regimen per nutrition. (7) History of DVT (deep vein thrombosis): Plan: RLE DVT discovered 11/2022 in [place]. Had been on Eliquis 5mg BID since 12/12/22. Eliquis dosage reduced to 2.5mg BID earlier in this hospitalization for prophylaxis (8) History of nontraumatic rupture of cerebral aneurysm: Plan: Patient is nonverbal at baseline with chronic contractures in all 4 extremities, has eye opening, roving eye movements, grimacing, sleep-wake cycles. Functional quadriplegia. CT head shows encephalomalacia and good shunt placement . He unfortunately suffered a ruptured brain aneurysm and SAH 08/2022. Status post craniotomy and evacuation of hematoma. 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 He has a ventriculoperitoneal shunt in place. Known resultant severe autonomic dysfunction / paroxysmal sympathetic hyperactivity / autonomic storm which is controlled on medications and has the potential to be confused with sepsis. No issues with storming in quite some time. NO changes in any chronic meds for his autonomic storming (9) Autonomic dysfunction: Plan: No recent issues. Continue dantrolene and bromocriptine. Continue gabapentin and baclofen for spasticity, Continue scop patch and tylenol scheduled. (10) Cardiomyopathy: Plan: last echo 07/11/23 - low normal EF 50-55%. No acute current problems. Continue metoprolol 12.5mg BID. No evidence of decompensation on exam during this entire admission. no edema. (11) Tracheostomy status: Plan: cont local trach care. 09/10/23 - trach changed to 8.0 uncuffed tracheostomy tube by Dr. Street trach exchanged 11/27/23, by Dr Lock -- Size 8 un-cuffed nonfenestrated trach suctioning prn. cont mucomyst nebs BID cont albuterol prn (12) Candidiasis: Plan: has required topical anti-yeast powders & diflucan off/on during this stay resolved (13) Onychia of toe: Plan: RIGHT great toe --> resolved no recurrence (14) Vitamin D insufficiency: Plan: 25-OH vit D level - 23.5 vitamin D 5000 IU daily via PEG recheck a level in 6-8 weeks Plan of note - development of clear fluid-filled blisters - could this be a bullous disease?? if he continues to have these blisters then consider derm consultation trach exchanged 09/09 and 11/27/23 (Size 8 un-cuffed nonfenestrated trach) peg tube changed 4/ condom cath placed 5/ dispo - SNF placement in [place] hopefully this coming week pt's mother updated by phone last week all labs today wnl - acceptable/stable Admission and Anticipated Discharge Date Admission Date: July 18, 2023 Subjective no events overnight tolerating tube feedings +stools no change in O2 requirements needing routine suctioning only Review of Systems Review of Systems: Unobtainable due to cognitive status Physical Exam Physical Exam: gen - NAD, sleeping, occasional cough head - deformity right side from prior craniotomy neck - no JVD; trach presents heart - RRR, s1 s2, no murmur lungs - CTA b/l; no wheezes or increased work of breathing (just upper airway noise from his trach) abd - soft NT BS+; PEG tube site clean; distension similar to previous exams ext - no edema b/l, pulses 2+ b/l skin - right lateral thigh with circular areas of post-inflammatory hyperpigmentation from prior bullae/blisters; previous blister on the anterior right prox thigh had ruptured and now is healing; no cellulitis; no changes neuro - contractures Results & Data Results & Data Vital Signs (Past 12 Hours) Vital Signs Temp Pulse Resp BP Pulse Ox O2 Del Method O2 Flow Rate 11/30/23 19:53 37.0 C 70 16 116/77 99 Trach Collar 6 11/30/23 19:28 71 16 97 T-Piece 6 11/30/23 17:25 36.9 C 11/30/23 14:23 36.7 C 72 16 115/73 97 Trach Collar 6 11/30/23 08:30 Trach Collar 6 FiO2 11/30/23 19:53 11/30/23 19:28 28 11/30/23 17:25 11/30/23 14:23 11/30/23 08:30 Laboratory Results Laboratory Results - last 24 hr 11/30/23 06:52 WBC 6.22 RBC 4.22 L Hgb 12.7 L Hct 39.5 L MCV 93.6 MCH 30.1 MCHC 32.2 RDW Std Deviation 49.1 H RDW Coeff of Dario 14.3 Plt Count 243 MPV 10.9 Sodium 141 Potassium 3.8 Chloride 105 Carbon Dioxide 31 Anion Gap 5 BUN 30 H Creatinine 0.43 L Est Cr Clr Drug Dosing 211.9 Est GFR ( Amer) > 150.0 Est GFR (Non-Af Amer) > 150.0 BUN/Creatinine Ratio 69.8 H Glucose 100 H Calcium 9.4 Phosphorus 3.5 PG Care Time/CCT Total # of Minutes Spent Total Time Spent with Patient: Total time spent is greater than 50% in coordination of care (as documented) at patient's floor/unit and/or counseling patient: Coding Level of Care Code 03286 SUB INP/OBS CARE 1/25MIN Diagnoses Decubitus ulcer of sacral region, stage 4 L89.154 Bacteremia due to Pseudomonas R78.81; B96.5 Catheter-associated urinary tract infection T83.511A; N39.0 Chronic osteomyelitis of sacrum M86.68 Hospital acquired PNA J18.9; Y95 Severe protein-calorie malnutrition E43 History of DVT (deep vein thrombosis) Z86.718 History of nontraumatic rupture of cerebral aneurysm Z86.79 Autonomic dysfunction G90.9 Cardiomyopathy I42.9 Tracheostomy status Z93.0 Candidiasis B37.9 Onychia of toe L03.039 Vitamin D insufficiency E55.9
--- NOTE | 2023-12-01 20:02 | Hospitalist Progress Note ---
Date of Service December 01, 2023 Assessment & Plan (1) Decubitus ulcer of sacral region, stage 4: Plan: Present on admission. cont to slowly improve today's wound photo reviewed appreciate assistance by Ms Jesus and her wound care team - s/p debridement in the OR by Dr Issa on 07/31/23. - Wound vac placed on 08/01. Wound vac then changed to a pulsating irrigation woundvac on 08/21/23. - Due to lack of improvement and worsening appearance of his ulcer he underwent repeat debridement in the OR by Dr Dorsey on 08/25/23. - on 09/04 the woundvac was removed due to candidiasis (extensive) in sacral area. Treated with fluconazole. Woundvac ultimately placed back. Continues with woundvac exchanges M/W/F by Sherie Jesus informally had asked plastic surgery about 2 weeks ago about whether patient would be a candidate for a skin graft - at that time surgery not advised; ongoing wound care recommended only all recent routine labs have been stable recent albumin of 4 Ry will need to follow with either the [place] [facility], [facility], or come to [facility] Sherie from Wound Care states Ry may not need the woundvac much longer (2) Bacteremia due to Pseudomonas: Plan: resolved s/p 14 days of IV cefepime --> abx d/c on 10/25/23 source - urinary tract no infectious issues since that previous bacteremia episode (3) Catheter-associated urinary tract infection: Plan: late September 2023 2nd pseudomonas resolved lewis exchanged on 10/24/23, then at family request was removed on 10/26/23 and replaced with condom cath since the exchange he fortunately has not had urinary retention (has had such in the past) cont condom cath (4) Chronic osteomyelitis of sacrum: Plan: intra-op culture from 07/31 with MSSA, pseudomonas, providencia, and anaerobes. Sacral bone biopsy 08/24 with VRE and 2-week course of linezolid completed 09/13/23. He has not been on dedicated abx since August 2023 for the sacrum continue woundvac as in #1 above there has been no palpable bone or visible bone since early in the hospitalization there have been no signs of active infection of the sacrum (no fevers, no rise in wbc count, etc) (5) Hospital acquired PNA: Plan: resolved stable pulmonary status on his chronic O2 - 6 liters serial lung exams have been stable Earlier this admission --> LLL pneumonia. Due to pseudomonas infection. Chronology of events: 08/01 - cxr with worsening infiltrates on left 08/03 - collapse LLL 08/03 - bronchoscopy by Dr Blancas with mucous plugging found in the left-sided bronchial tree s/p removal; 08/07 - s/p bronch by Dr Lock - minimal secretions LLL, no plugs; thick secretions in trach, however 08/09 - bronch cx - pseudomonas, intermediate resistance 08/09 - changed zosyn to cefepime 08/22 - cxr - ongoing LLL infiltrates/effusion - similar to previous imaging 09/17 - cxr showed improved aeration within the left lung base 10/11 - cxr with LLL infiltrate but stable of note - trach changed to cuffless by Dr. Street 09/09 trach exchanged 11/27/23, by Dr Lock -- Size 8 un-cuffed nonfenestrated trach appreciate his assistance cont mucomyst BID cont duonebs prn (6) Severe protein-calorie malnutrition: Plan: resolved. Peg tube replaced 09/25 - Dr Rhodes Most recent albumin 4 Phos wnl Other lytes stable Weight is stable cont current tube feeding regimen per nutrition as below --> (7) History of DVT (deep vein thrombosis): Plan: RLE DVT discovered 11/2022 in [place]. Had been on Eliquis 5mg BID since 12/12/22. Eliquis dosage reduced to 2.5mg BID earlier in this hospitalization for prophylaxis Tolerating without any signs of GI bleeding, etc. (8) History of nontraumatic rupture of cerebral aneurysm: Plan: Patient is nonverbal at baseline with chronic contractures in all 4 extremities, has eye opening, roving eye movements, grimacing, sleep-wake cycles. Functional quadriplegia. CT head shows encephalomalacia and good shunt placement . He unfortunately suffered a ruptured brain aneurysm and SAH 08/2022. Status post craniotomy and evacuation of hematoma. 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 He has a ventriculoperitoneal shunt in place. Known resultant severe autonomic dysfunction / paroxysmal sympathetic hyperactivity / autonomic storm which is controlled on medications and has the potential to be confused with sepsis. No issues with storming in quite some time. NO changes in any chronic meds for his autonomic storming (9) Autonomic dysfunction: Plan: Continue dantrolene and bromocriptine. Continue gabapentin and baclofen for spasticity. Continue scop patch and tylenol scheduled. (10) Cardiomyopathy: Plan: last echo 07/11/23 - low normal EF 50-55%. No acute current problems. Continue metoprolol 12.5mg BID. No evidence of decompensation on exam during this entire admission. no edema. (11) Tracheostomy status: Plan: cont local trach care. 09/10/23 - trach changed to 8.0 uncuffed tracheostomy tube by Dr. Street trach exchanged 11/27/23, by Dr Lock -- Size 8 un-cuffed nonfenestrated trach suctioning prn. cont mucomyst nebs BID cont albuterol prn (12) Candidiasis: Plan: has required topical anti-yeast powders & diflucan off/on during this stay resolved (13) Onychia of toe: Plan: RIGHT great toe --> resolved no recurrence (14) Vitamin D insufficiency: Plan: 25-OH vit D level - 23.5 vitamin D 5000 IU daily via PEG recheck a level in 6-8 weeks Plan of note - development of clear fluid-filled blisters - could this be a bullous disease?? if he continues to have these blisters then consider derm consultation trach exchanged 09/09 and 11/27/23 (Size 8 un-cuffed nonfenestrated trach) peg tube changed 4/5 condom cath placed 5/5 dispo - SNF placement in [place] hopefully this week pt's mother updated by phone this evening, 12/01/23 Admission and Anticipated Discharge Date Admission Date: July 18, 2023 Subjective woundvac exchanged today by Sherie Jesus from wound care Sherie is satisfied with the sacral decub appearance may be able to d/c the wound vac soon no other acute events 1 soft stool today per nursing tolerating tube feedings Review of Systems 2 Review of Systems: Unobtainable due to cognitive status (nonverbal/vegetative state ) Physical Exam 2 Physical Exam: gen - NAD, sleeping, comfortable head - deformity right side from prior craniotomy ear - left - no ulceration on pinnae neck - no JVD; trach present, clean heart - RRR, s1 s2, no murmur lungs - CTA b/l; no wheezes or increased work of breathing abd - soft NT BS+; PEG tube site clean; distension similar to previous exams ext - no edema b/l, pulses 2+ b/l skin - right lateral thigh with circular areas of post-inflammatory hyperpigmentation from prior bullae/blisters; previous blister on the anterior right prox thigh had ruptured and now is healing; no cellulitis; no changes neuro - contractures Results & Data Results & Data Vital Signs (Past 12 Hours) Vital Signs Temp Pulse Resp BP Pulse Ox O2 Del Method O2 Flow Rate 12/01/23 19:54 64 17 96 Trach Collar 6 12/01/23 15:37 36.5 C 74 16 122/80 99 Trach Collar 6 FiO2 12/01/23 19:54 28 12/01/23 15:37 28 PG Care Time/CCT Total # of Minutes Spent Total Time Spent with Patient: Total time spent is greater than 50% in coordination of care (as documented) at patient's floor/unit and/or counseling patient: Coding Level of Care Code 20297 SUB INP/OBS CARE 1/25MIN Diagnoses Decubitus ulcer of sacral region, stage 4 L89.154 Bacteremia due to Pseudomonas R78.81; B96.5 Catheter-associated urinary tract infection T83.511A; N39.0 Chronic osteomyelitis of sacrum M86.68 Hospital acquired PNA J18.9; Y95 Severe protein-calorie malnutrition E43 History of DVT (deep vein thrombosis) Z86.718 History of nontraumatic rupture of cerebral aneurysm Z86.79 Autonomic dysfunction G90.9 Cardiomyopathy I42.9 Tracheostomy status Z93.0 Candidiasis B37.9 Onychia of toe L03.039 Vitamin D insufficiency E55.9
--- NOTE | 2023-12-02 17:26 | Hospitalist Progress Note ---
Date of Service December 02, 2023 Assessment & Plan (1) Decubitus ulcer of sacral region, stage 4: Plan: Present on admission. cont to slowly improve today's wound photo reviewed appreciate assistance by Ms Jesus and her wound care team - s/p debridement in the OR by Dr Issa on 07/31/23. - Wound vac placed on 08/01. Wound vac then changed to a pulsating irrigation woundvac on 08/21/23. - Due to lack of improvement and worsening appearance of his ulcer he underwent repeat debridement in the OR by Dr Dorsey on 08/25/23. - on 09/04 the woundvac was removed due to candidiasis (extensive) in sacral area. Treated with fluconazole. Woundvac ultimately placed back. Continues with woundvac exchanges M/W/F by Sherie Jesus informally had asked plastic surgery about 2 weeks ago about whether patient would be a candidate for a skin graft - at that time surgery not advised; ongoing wound care recommended only all recent routine labs have been stable recent albumin of 4 Ry will need to follow with either the [place] [facility], [facility], or come to [facility] Sherie from Wound Care states Ry may not need the woundvac much longer - plan of care unchanged 12/01 (2) Bacteremia due to Pseudomonas: Plan: Bacteremia due to pseudomonas CAUTI late September 2023 Treated with 14 days cefepime and resolved Now with condom cath (3) Chronic osteomyelitis of sacrum: Plan: intra-op culture from 07/31 with MSSA, pseudomonas, providencia, and anaerobes. completed 6 weeks of IV antibiotics Sacral bone biopsy 08/24 with VRE and 2-week course of linezolid completed 09/13/23. He has not been on dedicated abx since August 2023 for the sacrum there has been no palpable bone or visible bone since early in the hospitalization (4) Hospital acquired PNA: Plan: LLL pseudomonas pneumonia 07/2023 treated mainly with cefepime Required bronchoscopies for mucus plugging trach changed to cuffless by Dr. Street 09/09 cont mucomyst BID - has had recurrent mucus plugging when this is changed to PRN (5) Severe protein-calorie malnutrition: Plan: Continue TF via PEG with protein supplements - talya, prosource bid Most recent albumin 4.0. Much improved since admission. (6) History of DVT (deep vein thrombosis): Plan: RLE DVT discovered 11/2022 in [place]. Had been on Eliquis 5mg BID since 12/12/22. Eliquis dosage reduced to 2.5mg BID earlier in this hospitalization for prophylaxis (7) History of nontraumatic rupture of cerebral aneurysm: Plan: Patient is nonverbal at baseline with chronic contractures in all 4 extremities, has eye opening, roving eye movements, grimacing, sleep-wake cycles. Functional quadriplegia. CT head shows encephalomalacia and good shunt placement . He unfortunately suffered a ruptured brain aneurysm and SAH 08/2022. Status post craniotomy and evacuation of hematoma. 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 He has a ventriculoperitoneal shunt in place. Known resultant severe autonomic dysfunction / paroxysmal sympathetic hyperactivity / autonomic storm which is controlled on medications and has the potential to be confused with sepsis. No issues with storming in quite some time. NO changes in any chronic meds for his autonomic storming (8) Autonomic dysfunction: Plan: Continue dantrolene and bromocriptine. Continue gabapentin and baclofen for spasticity. Continue scop patch ( for excessive secretions) and tylenol scheduled. (9) Cardiomyopathy: Plan: last echo 07/11/23 - low normal EF 50-55%. No acute current problems. Continue metoprolol 12.5mg BID. has had no volume overload/edema and is not on diuretics (10) Tracheostomy status: Plan: cont local trach care. 09/10/23 - trach changed to 8.0 uncuffed tracheostomy tube by Dr. Street trach exchanged 11/27/23, by Dr Lock -- Size 8 un-cuffed nonfenestrated trach suctioning prn. cont mucomyst nebs BID cont albuterol prn (11) Candidiasis: Plan: has required topical anti-yeast powders & diflucan off/on during this stay resolved (12) Vitamin D insufficiency: Plan: 25-OH vit D level - 23.5 vitamin D 5000 IU daily via PEG recheck a level in 4-6 weeks Plan trach exchanged 09/09 and 11/27/23 (Size 8 un-cuffed nonfenestrated trach) peg tube changed / condom cath placed 10/25 dispo - SNF placement in [place] hopefully this week pt's mother updated by phone 12/01/23 Admission and Anticipated Discharge Date Admission Date: July 18, 2023 Subjective no events, nonverbal at baseline Physical Exam Physical Exam: PHYSICAL EXAMINATION Last 24h vital signs reviewed, see documentation in flowsheet General: sleeping, eyes closed HEENT: R skull deformity unchanged. trach site anterior neck cdi Lungs: nonlabored respiratory effort clear to auscultation bilaterally no rhonchi rales or wheezes Heart: Reg no mrg Abdomen: soft nondistended. +BT. gtube LUQ. : condom cath, urine in bag clear yellow Extremities: Warm, dry, well-perfused. No extremity edema. diffuse sarcopenia present. Sacral wound photo 11/30 - pink granulation tissue over entire base, underm ining substantially resolved, much improved Neuro: sleeping/eyes closed. remains nonresponsive to voice or exam. he has flexion contractures of both wrists, right elbow, bilateral lower extremities. Psych: unable to assess Results & Data Results & Data Vital Signs (Past 12 Hours) Vital Signs Temp Pulse Resp BP Pulse Ox O2 Del Method O2 Flow Rate 12/02/23 15:03 36.7 C 67 16 103/68 99 Trach Collar 12/02/23 08:00 Trach Collar 8 12/02/23 07:35 66 18 97 Trach Collar 6 12/02/23 07:24 36.8 C 78 16 108/70 97 Trach Collar FiO2 12/02/23 15:03 12/02/23 08:00 12/02/23 07:35 28 12/02/23 07:24 PG Care Time/CCT Total # of Minutes Spent Total Time Spent with Patient: Total time spent is greater than 50% in coordination of care (as documented) at patient's floor/unit and/or counseling patient: Coding Level of Care Code 50007 SUB INP/OBS CARE 125MIN Diagnoses Decubitus ulcer of sacral region, stage 4 L89.154 Bacteremia due to Pseudomonas R78.81; B96.5 Chronic osteomyelitis of sacrum M86.68 Hospital acquired PNA J18.9; Y95 Severe protein-calorie malnutrition E43 History of DVT (deep vein thrombosis) Z86.718 History of nontraumatic rupture of cerebral aneurysm Z86.79 Autonomic dysfunction G90.9 Cardiomyopathy I42.9 Tracheostomy status Z93.0 Candidiasis B37.9 Vitamin D insufficiency E55.9
--- NOTE | 2023-12-03 10:57 | Discharge Summary ---
Date of Service December 03, 2023 Admission HPI Per Admitting Provider Ry is a 32 year old male with a PMH significant for chronic trach, PEG tube, nonverbal status following ruptured brain aneurysm and subsequent craniotomy/hematoma evacuation during hospitalization from August-February 2023, hx of DVT now on Eliquis, Stage IV sacral pressure ulcer, transaminitis, Cardiomyopathy, autonomic dysfunction, unstageable pressure of the calf, severe malnutrition, and gram positive bacteremia who was sent back to the [facility] ED via EMS after being refused for re-admission at [facility]. It appears that the plans for the patient were to eventually be moved to [facility] when a bed was available but was to return to [facility] until then. On initial arrival back at [facility] on 07/17 he was reportedly having breathing difficulties and family requested he bed evaluated in the ED. His workup was remarkable for an increased leukocytosis of 11.89 (up from 8.91 as of 07/13) but was otherwise unremarkable. Chest xray was negative for acute findings, UA was negative for infection. He remained stable on his baseline 6L via his trach collar. He was discharged back to [facility] early this am. However, when EMS transported him back to [facility] they refused to accept him and demanded he be taken back to the ED for placement at another facility. On arrival in the ED he was noted to be stable. At the time of the exam the patient was resting comfortably in bed in no acute distress. He opens his eyes shortly when woken but falls back asleep, which appears to be his baseline. Per chart review, the patient was just admitted to [facility] from 07/08-07/17 for sepsis due to gram positive bacteremia (coag negative staph not lugdunensis) thought to be from his sacral ulcer, transaminitis, Pneumatosis coli, and unstageable pressure of the calf. Please see discharge summary from 07/17/23 for details. I called and spoke to the patient's mother, Sharlene Viveros ([phone]) to inform her of the present situation. She is aware of the situation and is working with our case management coordinator to coordinate a discharge plan moving forward. Principal Diagnosis Admitted for lack of placement, stage 4 sacral decubitus ulcer present on admission Discharge Exam PHYSICAL EXAMINATION Last 24h vital signs reviewed, see documentation in flowsheet General: sleeping, eyes closed HEENT: R skull deformity unchanged. trach site anterior neck cdi Lungs: nonlabored respiratory effort clear to auscultation bilaterally no rhonchi rales or wheezes Heart: Reg no mrg Abdomen: soft nondistended. +BT. gtube LUQ. : condom cath, urine in bag clear yellow Extremities: Warm, dry, well-perfused. No extremity edema. diffuse sarcopenia present. Sacral wound photo 12/02 - pink granulation tissue over most of base, small areas with darkening or yellow exudate, undermining substantially resolved, much improved, no surrounding erythema, no drainage Neuro: sleeping/eyes closed. remains nonresponsive to voice or exam. he has flexion contractures of both wrists, right elbow, bilateral lower extremities. Psych: unable to assess Discharge Data Allergies Allergy/AdvReac Type Severity Reaction Status Date / Time No Known Allergies Allergy Unverified 07/08/23 15:52 Consultations 07/18/23 12:52 ED Decision to Admit Stat 07/22/23 10:08 Consult Infectious Diseases Routine 07/28/23 14:30 Consult General Surgery Routine 08/03/23 09:47 Consult Pulmonology Routine 08/04/23 07:02 Consult Infectious Diseases Routine 08/13/23 14:53 Consult General Surgery Routine 08/21/23 09:44 Consult Infectious Diseases Routine 09/10/23 08:56 Consult Pulmonology Routine 09/26/23 09:47 Consult Gastroenterology Routine 10/10/23 07:58 Consult Infectious Diseases Routine Procedures Performed Operation Date: 08/25/23 15:00 Actual Procedures p Irrigation and Debridement of Sacral Decubitus Ulcer(Not Applicable) - Angela Issa DO [facility] Course (1) Decubitus ulcer of sacral region, stage 4: Ry is a 33 y/o man who unfortunately had ruptured brain aneurysm August of 2022 treated at [facility]. He required trach and gtube. Subsequently he has continued to have poor neurologic status. He maintains sleep/wake cycles and appears to be in PVS or minimally responsive state. During previous admission to this facility in early winter he was treated for gram positive bacteremias - 2 week course of IV vancomycin was completed early this admission. Other notable events include development of left sided pneumonia in July 25/2024 treated with IV antibiotics to cover pseudomonas as well as bronchoscopy x 2 for mucus plugging. This has resolved. He developed pseudomonas bacteremia due to CAUTI this spring, also treated with IV antibiotics and resolved. Silva was able to be discontinued. For at least the past month at least he has been on condom catheter without urinary retention. Present on admission. cont to slowly improve today's wound photo reviewed appreciate assistance by Ms Jesus and her wound care team - s/p debridement in the OR by Dr Issa on 07/31/23. - Wound vac placed on 08/01. Wound vac then changed to a pulsating irrigation woundvac on 08/21/23. - Due to lack of improvement and worsening appearance of his ulcer he underwent repeat debridement in the OR by Dr Dorsey on 08/25/23. - on 09/04 the woundvac was removed due to candidiasis (extensive) in sacral area. Treated with fluconazole. Woundvac ultimately placed back. - 2-3 weeks ago we informally we asked plastic surgery whether patient would be a candidate for a skin graft/flap - surgery not advised, not thought to be a candidate because of overall poor health status and neurologic status; ongoing wound care recommended only - wound vac continued through 12/03/23 when discontinuation recommended by wound care nurse. Has continued to have slow improvement. Continue wound care and pressure offloading Ry will need to follow with either the [facility], [facility], or come to [facility] all recent routine labs have been stable recent albumin of 4 (2) Bacteremia due to Pseudomonas: Bacteremia due to pseudomonas CAUTI late September 2023 Treated with 14 days cefepime and resolved Now with condom cath (3) Chronic osteomyelitis of sacrum: at time of admission he had sacral decubitus which was worsening and early on visible bone was present intra-op culture from 07/31 with MSSA, pseudomonas, providencia, and anaerobes. completed 6 weeks of IV antibiotics (mainly cefepime), ending in late August 2023 Sacral bone biopsy 08/24 with VRE and 2-week course of linezolid completed 09/13/23. He has not been on dedicated abx since August 2023 for the sacrum there has been no palpable bone or visible bone since early in the hospitalization (4) Hospital acquired PNA: LLL pseudomonas pneumonia 07/2023 treated mainly with cefepime Required bronchoscopies x 2 for mucus plugging No issues recently trach changed to cuffless by Dr. Street 09/09 cont mucomyst BID - has had recurrent mucus plugging when this is changed to PRN (5) Severe protein-calorie malnutrition: Continue TF via PEG with protein supplements - talya, prosource bid Most recent albumin 4.0. Much improved since admission. (6) History of DVT (deep vein thrombosis): RLE DVT discovered 11/2022 in [place]. Had been on Eliquis 5mg BID since 12/12/22. Eliquis dosage reduced to 2.5mg BID earlier in this hospitalization for prophylaxis dosing (7) History of nontraumatic rupture of cerebral aneurysm: Patient is nonverbal at baseline with chronic contractures in all 4 extremities, has eye opening, roving eye movements, grimacing, sleep-wake cycles. Functional quadriplegia. I have not observed visual tracking or purposeful movements during this long hospital stay, however, his family and a few staff members report some degree of responsiveness. CT head shows encephalomalacia and good shunt placement . He unfortunately suffered a ruptured brain aneurysm and SAH 08/2022. Status post craniotomy and evacuation of hematoma. 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 He has a ventriculoperitoneal shunt in place. Known resultant severe autonomic dysfunction / paroxysmal sympathetic hyperactivity / autonomic storm which is controlled on medications and has the potential to be confused with sepsis. No issues with storming in quite some time. NO changes in any chronic meds for his autonomic storming (8) Autonomic dysfunction: Continue dantrolene and bromocriptine. Continue gabapentin and baclofen for spasticity. Continue scop patch (for excessive secretions) and tylenol scheduled. He has tolerated being off the scheduled tylenol by my observation several times in the past, without fever. (9) Cardiomyopathy: last echo 07/11/23 - low normal EF 50-55%. No acute current problems. Continue metoprolol 12.5mg BID. has had no volume overload/edema and is not on diuretics (10) Tracheostomy status: cont local trach care. 09/10/23 - trach changed to 8.0 uncuffed tracheostomy tube by Dr. Street trach exchanged 11/27/23, by Dr Lock -- Size 8 un-cuffed nonfenestrated trach suctioning prn. cont mucomyst nebs BID cont albuterol prn (11) Candidiasis: has required topical anti-yeast powders & diflucan off/on during this stay resolved (12) Vitamin D insufficiency: 25-OH vit D level - 23.5 vitamin D 5000 IU daily via PEG recheck a level in 2-4 weeks Plan trach exchanged 09/09 and 11/27/23 (Size 8 un-cuffed nonfenestrated trach) peg tube changed 09/25 condom cath placed 10/25 dispo - SNF placement in [place] hopefully this week pt's mother updated by phone 12/01/23 Discharge Plan Discharge Items Patient Disposition: Transfer Intermediate Fac Reason For Visit: NEED FOR PLACEMENT Discharge Diagnosis: Stage 4 sacral decubitus, present on admission. Chronic sacral osteomyelitis. Activity: As commented below Non-emergency contact: Primary Care Provider Call non-emergency contact if: you have any medication questions, your symptoms worsen and you have a fever Follow-up/Referrals: Edgardo Pruett [Primary Care Provider] - Diet: Nothing by Mouth Addtl Attending Provider Instructions: Routine tracheostomy care, suctioning PRN, currently 6L O2 by trach mask. Titrate to maintain O2 sat >92% -continue scheduled acetylcysteine (or hypertonic saline) nebs - develops mucus plugging when these are changed to PRN Continue condom catheter, bladder scan as needed Routine g-tube care and dressing changes Tube feeding: continue protein supplements to promote wound healing water flushes 200 mL per gtube q4h. Has high insensible water losses, Na BUN/Cr have been stable on this amount Peptamen 1.5 (or Fibersource HN if available, has been in shortage) "- Peptamen 1.5 with a goal rate of 55 mL/ hr will be providing Pt with ~ 1980 Kcals, ~ 90 g protein, ~ 250 g CHO, and ~ 1000 mL of free water. - Will increase free water flushes to 200 mL every 4 hours to reflect formula change, but will adjust further, as needed. - ProSource NoCarb to also continue, BID - Continue to provide MVI, vitamin C, and Talya (BID) for further assistance with wound healing - Daily weights - Continue to monitor weights , TF tolerance, labs, and progression of wound healing, need for further adjustments to enteral nutrition/free water flushes moving forward" Skin care: Continue waffle boots to protect heels Caution with any pressure on skin - develops blister or wounds easily (for example, try to keep feeding tube / tubing wrapped in gown rather than on skin) Continue q2h turns, pressure relief mattress or overlay. Has tendency to roll toward L side, putting pressure on L side of sacral wound Wound care: "To sacral wound : Irrigate with saline using 35cc syringe and 18g blunt needle. Fill wound with saline moistened scot, 4x4 gauze and secure with Optifoam. Change every other day and as needed for increased drainage or if soiled. Turn and reposition pt. at least every 2 hours. No pillows under sacral area, place pillow above hips. [id number] mattress Waffle boots" Monitor CBC, BMP, albumin every 1-2 weeks Will develop autonomic instability (fever, tachycardia, sweating) if missing scheduled meds especially dantrolene, bromocriptine etc. This has the potential to be confused with sepsis. Pending Studies at Discharge: No Stand-Alone Forms: My [facility] Skilled Items Patient informed of condition?: No DNR: No Discharge Level of Care: Skilled Communicable Disease: No Discharge Prognosis: Stable Lines: None Urinary Catheter: No Medications and DC Order Prescriptions: New gabapentin 250 mg/5 mL Solution 400 mg G-tube Q6 Qty: 0 0RF melatonin 3 mg Tablet 3 mg PO HS Qty: 0 0RF miconazole nitrate [Desenex] 2 % Powder 1 applic EXT DAILY PRNQty: 0 0RF Eliquis 2.5 mg Tablet 2.5 mg PO BID Qty: 0 0RF polyethylene glycol 3350 [Miralax] 17 gram Powder In Packet 17 g G-tube DAILY Qty: 0 0RF metoprolol tartrate 25 mg Tablet 12.5 mg PEG Q12 Qty: 0 0RF Talya (with collagen) 7-7-1.5 gram Powder In Packet 1 packet PEG BID Qty: 0 0RF acetylcysteine 200 mg/mL (20 %) Solution 5 ml inhalation BIDR Qty: 0 0RF sennosides [senna] 8.8 mg/5 mL Syrup 17.2 mg PEG HS Qty: 0 0RF ipratropium-albuterol 0.5 mg-3 mg(2.5 mg base)/3 mL Solution For Nebulization 3 ml NEB Q4R PRNQty: 0 0RF ProSource No Carb 15-60 gram-kcal/30 mL Liquid In Packet See Rx Instructions .ROUTE .COMPLEX Qty: 0 0RF Rx Instructions: 30 mL per gtube bid cholecalciferol (vitamin D3) 25 mcg (1,000 unit) Capsule 25 mcg PEG QAM Qty: 0 0RF Peptamen 1.5 0.068 gram- 1.5 kcal/mL Liquid See Rx Instructions .ROUTE .COMPLEX Qty: 0 0RF Rx Instructions: see orders Tube Feeding Water Flush 200 ml PEG Q4H Qty: 0 0RF Liquid Multivitamin 9 mg iron/ 15 mL (15 mL) Liquid 15 ml PEG QAM Qty: 0 0RF Continued scopolamine base 1 mg over 3 days Patch 3 Day 1 patch TRANSDERMAL Q3D bromocriptine 2.5 mg Tablet 2.5 mg feeding tube Q6 Qty: 120 11RF acetaminophen 325 mg/10.15 mL Suspension 650 mg PEG Q6 Qty: 250 0RF dantrolene 100 mg capsule 100 mg feeding tube Q6H bisacodyl 10 mg Suppository 10 mg [place] .EVERY 24 HOURS PRN (Reason: Constipation) ascorbic acid (vitamin C) 500 mg Tablet 500 mg PO DAILY ferrous sulfate 300 mg (60 mg iron)/5 mL Liquid 325 mg feeding tube Q OTHER DAY baclofen 20 mg tablet 20 mg feeding tube Q6 Fleet Enema 19-7 gram/118 mL Enema 118 ml [place] .MORNING OF 4TH DAY PRN (Reason: Constipation) Rx Instructions: gvie in the morning of the 4th day without a BM Discontinued gabapentin 400 mg capsule 400 mg feeding tube Q4H Saccharomyces boulardii 250 mg Capsule 250 mg feeding tube DAILY Magic Mix See Rx Instructions .ROUTE .COMPLEX Rx Instructions: Nystatin 60g/Silvadene 60g/Hydrocortisone 1% 60g cream: Apply to Buttocks/Coccyx topically every day and evening shift for skin alteration area. multivitamin Tablet 1 tab feeding tube QAM Rx Instructions: CRUSHED zinc sulfate 50 mg zinc (220 mg) Tablet 50 mg feeding tube DAILY Eliquis 5 mg tablet 5 mg feeding tube BID metoprolol tartrate 25 mg tablet 25 mg PEG Q12 Proheal 30 ml feeding tube BID Rx Instructions: mix well with 100 ml water Jevity 1.5 Lance 0.06 gram-1.5 kcal/mL Liquid 1 ea feeding tube Q4 Rx Instructions: 240 ml bolus q4 hours for total volume of 1440 ml per day water Liquid 1 ea UD Rx Instructions: 200 ml of water flush every 4 hours via gravity total 2000 ml magnesium hydroxide [Milk of Magnesia] 400 mg/5 mL Suspension 2,400 mg feeding tube DAILY PRN (Reason: Constipation) Rx Instructions: give if no BM on the morning of the 3rd day Santyl 250 unit/gram Ointment 1 applic TOPICAL .EVERY DAY SHIFT Rx Instructions: cleanse with normal saline,apply Santyl to base of wound,secure with borered dressing. Santyl 250 unit/gram Ointment 1 applic TOPICAL DIRECTED PRN (Reason: soilage/dislodgement) Rx Instructions: apply to sacrum topically as neded for soilage/dislodgement. cleanse with normal saline,apply Santyl to base of wound,secure with bordered dressing Admission Data Admit Date/Time: 07/18/23 13:11 Attending Provider: Ayesha Metcalf Admit Provider: Wilner Holland Primary Care Provider: Edgardo Pruett Other Providers: Wilner Holland; Angela Issa; Neo Ramesh; Karthikeyan Blancas; Kenneth Street; Dari Lock; Africa Naik; Noemy Louis; Faheem Fan; Selvin Wells Carol J; Mesfin Simental; Gila Correa; Fuad Rhodes; Edith Wong; Nathalie Alegria; Clarita Sesay; Trudy Matthew; Sue Munroe; Freddy Sadler; Jordan Zuñiga; Dirk Theodore; Aliya Kwong; Samantha Edwards; Naty Rosario; Camilla Denny; Janet Caceres; Kaya Nelson; Juancho Strong; Jason Torres; Eddy Shannon; Amalia Josue; Yonathan Peterson Coding Diagnoses Decubitus ulcer of sacral region, stage 4 L89.154 Bacteremia due to Pseudomonas R78.81; B96.5 Chronic osteomyelitis of sacrum M86.68 Hospital acquired PNA J18.9; Y95 Severe protein-calorie malnutrition E43 History of DVT (deep vein thrombosis) Z86.718 History of nontraumatic rupture of cerebral aneurysm Z86.79 Autonomic dysfunction G90.9 Cardiomyopathy I42.9 Tracheostomy status Z93.0 Candidiasis B37.9 Vitamin D insufficiency E55.9
--- NOTE | 2023-12-03 19:04 | Hospitalist Progress Note ---
Date of Service December 03, 2023 Assessment & Plan (1) Decubitus ulcer of sacral region, stage 4: Plan: Ry is a 33 y/o man who unfortunately had ruptured brain aneurysm August of 2022 treated at [facility]. He required trach and gtube. Subsequently he has continued to have poor neurologic status. He maintains sleep/wake cycles and appears to be in PVS or minimally responsive state. During previous admission to this facility in early winter he was treated for gram positive bacteremias - 2 week course of IV vancomycin was completed early this admission. Other notable events include development of left sided pneumonia in July 25/2024 treated with IV antibiotics to cover pseudomonas as well as bronchoscopy x 2 for mucus plugging. This has resolved. He developed pseudomonas bacteremia due to CAUTI this spring, also treated with IV antibiotics and resolved. Silva was able to be discontinued. For at least the past month at least he has been on condom catheter without urinary retention. Present on admission. cont to slowly improve today's wound photo reviewed appreciate assistance by Ms Jesus and her wound care team - s/p debridement in the OR by Dr Issa on 07/31/23. - Wound vac placed on 08/01. Wound vac then changed to a pulsating irrigation woundvac on 08/21/23. - Due to lack of improvement and worsening appearance of his ulcer he underwent repeat debridement in the OR by Dr Dorsey on 08/25/23. - on 09/04 the woundvac was removed due to candidiasis (extensive) in sacral area. Treated with fluconazole. Woundvac ultimately placed back. - 2-3 weeks ago we informally we asked plastic surgery whether patient would be a candidate for a skin graft/flap - surgery not advised, not thought to be a candidate because of overall poor health status and neurologic status; ongoing wound care recommended only - wound vac continued through 12/03/23 when discontinuation recommended by wound care nurse. Has continued to have slow improvement. Continue wound care and pressure offloading Ry will need to follow with either the [place] [facility], [facility], or come to [facility] all recent routine labs have been stable recent albumin of 4 (2) Bacteremia due to Pseudomonas: Plan: Bacteremia due to pseudomonas CAUTI late September 2023 Treated with 14 days cefepime and resolved Now with condom cath (3) Chronic osteomyelitis of sacrum: Plan: at time of admission he had sacral decubitus which was worsening and early on visible bone was present intra-op culture from 07/31 with MSSA, pseudomonas, providencia, and anaerobes. completed 6 weeks of IV antibiotics (mainly cefepime), ending in late August 2023 Sacral bone biopsy 08/24 with VRE and 2-week course of linezolid completed 09/13/23. He has not been on dedicated abx since August 2023 for the sacrum there has been no palpable bone or visible bone since early in the hospitalization (4) Hospital acquired PNA: Plan: LLL pseudomonas pneumonia 07/2023 treated mainly with cefepime Required bronchoscopies x 2 for mucus plugging No issues recently trach changed to cuffless by Dr. Street 09/09 cont mucomyst BID - has had recurrent mucus plugging when this is changed to PRN (5) Severe protein-calorie malnutrition: Plan: Continue TF via PEG with protein supplements - talya, prosource bid Most recent albumin 4.0. Much improved since admission. (6) History of DVT (deep vein thrombosis): Plan: RLE DVT discovered 11/2022 in [place]. Had been on Eliquis 5mg BID since 12/12/22. Eliquis dosage reduced to 2.5mg BID earlier in this hospitalization for prophylaxis dosing (7) History of nontraumatic rupture of cerebral aneurysm: Plan: Patient is nonverbal at baseline with chronic contractures in all 4 extremities, has eye opening, roving eye movements, grimacing, sleep-wake cycles. Functional quadriplegia. I have not observed visual tracking or purposeful movements during this long hospital stay, however, his family and a few staff members report some degree of responsiveness. CT head shows encephalomalacia and good shunt placement . He unfortunately suffered a ruptured brain aneurysm and SAH 08/2022. Status post craniotomy and evacuation of hematoma. 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 He has a ventriculoperitoneal shunt in place. Known resultant severe autonomic dysfunction / paroxysmal sympathetic hyperactivity / autonomic storm which is controlled on medications and has the potential to be confused with sepsis. No issues with storming in quite some time. NO changes in any chronic meds for his autonomic storming (8) Autonomic dysfunction: Plan: Continue dantrolene and bromocriptine. Continue gabapentin and baclofen for spasticity. Continue scop patch (for excessive secretions) and tylenol scheduled. He has tolerated being off the scheduled tylenol by my observation several times in the past, without fever. (9) Cardiomyopathy: Plan: last echo 07/11/23 - low normal EF 50-55%. No acute current problems. Continue metoprolol 12.5mg BID. has had no volume overload/edema and is not on diuretics (10) Tracheostomy status: Plan: cont local trach care. 09/10/23 - trach changed to 8.0 uncuffed tracheostomy tube by Dr. Street trach exchanged 11/27/23, by Dr Lock -- Size 8 un-cuffed nonfenestrated trach suctioning prn. cont mucomyst nebs BID cont albuterol prn (11) Candidiasis: Plan: has required topical anti-yeast powders & diflucan off/on during this stay resolved (12) Vitamin D insufficiency: Plan: 25-OH vit D level - 23.5 vitamin D 5000 IU daily via PEG recheck a level in 2-4 weeks Plan trach exchanged 09/09 and 11/27/23 (Size 8 un-cuffed nonfenestrated trach) peg tube changed / condom cath placed / dispo - SNF placement in [place] hopefully this week pt's mother updated by phone 12/01/23 Admission and Anticipated Discharge Date Admission Date: July 18, 2023 Subjective planned for discharge today but NF had further questions about his wound care wound vac removed per lieutenant colonel specialist Physical Exam Physical Exam: PHYSICAL EXAMINATION Last 24h vital signs reviewed, see documentation in flowsheet no change to exam 12/02: General: sleeping, eyes closed HEENT: R skull deformity unchanged. trach site anterior neck cdi Lungs: nonlabored respiratory effort clear to auscultation bilaterally no rhonchi rales or wheezes Heart: Reg no mrg Abdomen: soft nondistended. +BT. gtube LUQ. : condom cath, urine in bag clear yellow Extremities: Warm, dry, well-perfused. No extremity edema. diffuse sarcopenia present. Sacral wound photo 12/02 - pink granulation tissue over most of base, small areas with darkening or yellow exudate, undermining substantially resolved, much improved, no surrounding erythema, no drainage Neuro: sleeping/eyes closed. remains nonresponsive to voice or exam. he has flexion contractures of both wrists, right elbow, bilateral lower extremities. Psych: unable to assess Results & Data Results & Data Vital Signs (Past 12 Hours) Vital Signs Temp Pulse Pulse Resp BP Pulse Ox O2 Del Method 12/03/23 15:43 37.4 C 79 16 108/73 98 Trach Collar 12/03/23 08:00 Trach Collar 12/03/23 07:51 73 16 98 Trach Collar 12/03/23 07:45 37.1 C 79 16 116/82 99 Trach Collar O2 Flow Rate FiO2 12/03/23 15:43 12/03/23 08:00 6 28 12/03/23 07:51 6 28 12/03/23 07:45 6 PG Care Time/CCT Total # of Minutes Spent Total Time Spent with Patient: Total time spent is greater than 50% in coordination of care (as documented) at patient's floor/unit and/or counseling patient: Coding Level of Care Code 24565 SUB INP/OBS CARE 1/25MIN Diagnoses Decubitus ulcer of sacral region, stage 4 L89.154 Bacteremia due to Pseudomonas R78.81; B96.5 Chronic osteomyelitis of sacrum M86.68 Hospital acquired PNA J18.9; Y95 Severe protein-calorie malnutrition E43 History of DVT (deep vein thrombosis) Z86.718 History of nontraumatic rupture of cerebral aneurysm Z86.79 Autonomic dysfunction G90.9 Cardiomyopathy I42.9 Tracheostomy status Z93.0 Candidiasis B37.9 Vitamin D insufficiency E55.9
--- NOTE | 2023-12-04 18:50 | Hospitalist Progress Note ---
Date of Service December 04, 2023 Assessment & Plan (1) Decubitus ulcer of sacral region, stage 4: Plan: Ry is a 33 y/o man who unfortunately had ruptured brain aneurysm August of 2022 treated at [facility]. He required trach and gtube. Subsequently he has continued to have poor neurologic status. He maintains sleep/wake cycles and appears to be in PVS or minimally responsive state. During previous admission to this facility in early winter he was treated for gram positive bacteremias - 2 week course of IV vancomycin was completed early this admission. Other notable events include development of left sided pneumonia in July 25/2024 treated with IV antibiotics to cover pseudomonas as well as bronchoscopy x 2 for mucus plugging. This has resolved. He developed pseudomonas bacteremia due to CAUTI this spring, also treated with IV antibiotics and resolved. Silva was able to be discontinued. For at least the past month at least he has been on condom catheter without urinary retention. Present on admission. cont to slowly improve today's wound photo reviewed appreciate assistance by Ms Jesus and her wound care team - s/p debridement in the OR by Dr Issa on 07/31/23. - Wound vac placed on 08/01. Wound vac then changed to a pulsating irrigation woundvac on 08/21/23. - Due to lack of improvement and worsening appearance of his ulcer he underwent repeat debridement in the OR by Dr Dorsey on 08/25/23. - on 09/04 the woundvac was removed due to candidiasis (extensive) in sacral area. Treated with fluconazole. Woundvac ultimately placed back. - 2-3 weeks ago we informally we asked plastic surgery whether patient would be a candidate for a skin graft/flap - surgery not advised, not thought to be a candidate because of overall poor health status and neurologic status; ongoing wound care recommended only - wound vac continued through 12/03/23 when discontinuation recommended by wound care nurse. Has continued to have slow improvement. Continue wound care and pressure offloading Ry will need to follow with either the [facility], [facility], or come to [facility] all recent routine labs have been stable recent albumin of 4 (2) Bacteremia due to Pseudomonas: Plan: Bacteremia due to pseudomonas CAUTI late September 2023 Treated with 14 days cefepime and resolved Now with condom cath (3) Chronic osteomyelitis of sacrum: Plan: at time of admission he had sacral decubitus which was worsening and early on visible bone was present intra-op culture from 07/31 with MSSA, pseudomonas, providencia, and anaerobes. completed 6 weeks of IV antibiotics (mainly cefepime), ending in late August 2023 Sacral bone biopsy 08/24 with VRE and 2-week course of linezolid completed 09/13/23. He has not been on dedicated abx since August 2023 for the sacrum there has been no palpable bone or visible bone since early in the hospitalization (4) Hospital acquired PNA: Plan: LLL pseudomonas pneumonia 07/2023 treated mainly with cefepime Required bronchoscopies x 2 for mucus plugging No issues recently trach changed to cuffless by Dr. Street 09/09 cont mucomyst BID - has had recurrent mucus plugging when this is changed to PRN (5) Severe protein-calorie malnutrition: Plan: Continue TF via PEG with protein supplements - talya, prosource bid Most recent albumin 4.0. Much improved since admission. (6) History of DVT (deep vein thrombosis): Plan: RLE DVT discovered 11/2022 in [place]. Had been on Eliquis 5mg BID since 12/12/22. Eliquis dosage reduced to 2.5mg BID earlier in this hospitalization for prophylaxis dosing (7) History of nontraumatic rupture of cerebral aneurysm: Plan: Patient is nonverbal at baseline with chronic contractures in all 4 extremities, has eye opening, roving eye movements, grimacing, sleep-wake cycles. Functional quadriplegia. I have not observed visual tracking or purposeful movements during this long hospital stay, however, his family and a few staff members report some degree of responsiveness. CT head shows encephalomalacia and good shunt placement . He unfortunately suffered a ruptured brain aneurysm and SAH 08/2022. Status post craniotomy and evacuation of hematoma. 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 He has a ventriculoperitoneal shunt in place. Known resultant severe autonomic dysfunction / paroxysmal sympathetic hyperactivity / autonomic storm which is controlled on medications and has the potential to be confused with sepsis. No issues with storming in quite some time. NO changes in any chronic meds for his autonomic storming (8) Autonomic dysfunction: Plan: Continue dantrolene and bromocriptine. Continue gabapentin and baclofen for spasticity. Continue scop patch (for excessive secretions) and tylenol scheduled. He has tolerated being off the scheduled tylenol by my observation several times in the past, without fever. (9) Cardiomyopathy: Plan: last echo 07/11/23 - low normal EF 50-55%. No acute current problems. Continue metoprolol 12.5mg BID. has had no volume overload/edema and is not on diuretics (10) Tracheostomy status: Plan: cont local trach care. 09/10/23 - trach changed to 8.0 uncuffed tracheostomy tube by Dr. Street trach exchanged 11/27/23, by Dr Lock -- Size 8 un-cuffed nonfenestrated trach suctioning prn. cont mucomyst nebs BID cont albuterol prn (11) Candidiasis: Plan: has required topical anti-yeast powders & diflucan off/on during this stay resolved (12) Vitamin D insufficiency: Plan: 25-OH vit D level - 23.5 vitamin D 5000 IU daily via PEG recheck a level in 2-4 weeks Plan trach exchanged 09/09 and 11/27/23 (Size 8 un-cuffed nonfenestrated trach) peg tube changed / condom cath placed / dispo - SNF placement in [place] hopefully this week pt's mother updated by phone 12/01/23 Admission and Anticipated Discharge Date Admission Date: July 18, 2023 Subjective no events, nonverbal Physical Exam Physical Exam: PHYSICAL EXAMINATION Last 24h vital signs reviewed, see documentation in flowsheet General: eyes open HEENT: R skull deformity unchanged. trach site anterior neck cdi Lungs: nonlabored respiratory effort clear to auscultation bilaterally no rhonchi rales or wheezes Heart: Reg no mrg Abdomen: soft nondistended. +BT. gtube LUQ. : condom cath, urine in bag clear yellow Extremities: Warm, dry, well-perfused. No extremity edema. diffuse sarcopenia present. Sacral wound photo 12/02 - pink granulation tissue over most of base, small areas with darkening or yellow exudate, undermining substantially resolved, much improved, no surrounding erythema, no drainage Neuro: roving eye movements, remains nonresponsive to voice or exam. he has flexion contractures of both wrists, right elbow, bilateral lower extremities. Psych: unable to assess Results & Data Results & Data Vital Signs (Past 12 Hours) Vital Signs Temp Pulse Resp BP Pulse Ox O2 Del Method O2 Flow Rate 12/04/23 16:19 36.8 C 85 16 111/76 96 Trach Collar 12/04/23 09:06 77 119/80 12/04/23 09:00 Trach Collar 6 12/04/23 07:59 37.4 C 74 18 105/71 98 Trach Collar 12/04/23 07:30 78 15 98 Trach Collar 6 FiO2 12/04/23 16:19 12/04/23 09:06 12/04/23 09:00 12/04/23 07:59 12/04/23 07:30 28 PG Care Time/CCT Total # of Minutes Spent Total Time Spent with Patient: Total time spent is greater than 50% in coordination of care (as documented) at patient's floor/unit and/or counseling patient: Coding Level of Care Code 32032 SUB INP/OBS CARE 07/17MIN Diagnoses Decubitus ulcer of sacral region, stage 4 L89.154 Bacteremia due to Pseudomonas R78.81; B96.5 Chronic osteomyelitis of sacrum M86.68 Hospital acquired PNA J18.9; Y95 Severe protein-calorie malnutrition E43 History of DVT (deep vein thrombosis) Z86.718 History of nontraumatic rupture of cerebral aneurysm Z86.79 Autonomic dysfunction G90.9 Cardiomyopathy I42.9 Tracheostomy status Z93.0 Candidiasis B37.9 Vitamin D insufficiency E55.9
--- NOTE | 2023-12-05 15:46 | Hospitalist Progress Note ---
Date of Service December 05, 2023 Assessment & Plan (1) Decubitus ulcer of sacral region, stage 4: Plan: Ry is a 33 y/o man who unfortunately had ruptured brain aneurysm August of 2022 treated at [facility]. He required trach and gtube. Subsequently he has continued to have poor neurologic status. He maintains sleep/wake cycles and appears to be in PVS or minimally responsive state. During previous admission to this facility in early winter he was treated for gram positive bacteremias - 2 week course of IV vancomycin was completed early this admission. Other notable events include development of left sided pneumonia in July 25/2024 treated with IV antibiotics to cover pseudomonas as well as bronchoscopy x 2 for mucus plugging. This has resolved. He developed pseudomonas bacteremia due to CAUTI this spring, also treated with IV antibiotics and resolved. Silva was able to be discontinued. For at least the past month at least he has been on condom catheter without urinary retention. Present on admission. cont to slowly improve today's wound photo reviewed 12/04 appreciate assistance by Ms Jesus and her wound care team - s/p debridement in the OR by Dr Issa on 07/31/23. - Wound vac placed on 08/01. Wound vac then changed to a pulsating irrigation woundvac on 08/21/23. - Due to lack of improvement and worsening appearance of his ulcer he underwent repeat debridement in the OR by Dr Dorsey on 08/25/23. - on 09/04 the woundvac was removed due to candidiasis (extensive) in sacral area. Treated with fluconazole. Woundvac ultimately placed back. - 2-3 weeks ago we informally we asked plastic surgery whether patient would be a candidate for a skin graft/flap - surgery not advised, not thought to be a candidate because of overall poor health status and neurologic status; ongoing wound care recommended only - wound vac continued through 12/03/23 when discontinuation recommended by wound care nurse. Has continued to have slow improvement. Continue wound care and pressure offloading Ry will need to follow with either the [facility], [facility], or come to [facility] all recent routine labs have been stable recent albumin of 4 (2) Bacteremia due to Pseudomonas: Plan: Bacteremia due to pseudomonas CAUTI late September 2023 Treated with 14 days cefepime and resolved Now with condom cath (3) Chronic osteomyelitis of sacrum: Plan: at time of admission he had sacral decubitus which was worsening and early on visible bone was present intra-op culture from 07/31 with MSSA, pseudomonas, providencia, and anaerobes. completed 6 weeks of IV antibiotics (mainly cefepime), ending in late August 2023 Sacral bone biopsy 08/24 with VRE and 2-week course of linezolid completed 09/13/23. He has not been on dedicated abx since August 2023 for the sacrum there has been no palpable bone or visible bone since early in the hospitalization (4) Hospital acquired PNA: Plan: LLL pseudomonas pneumonia 07/2023 treated mainly with cefepime Required bronchoscopies x 2 for mucus plugging No issues recently trach changed to cuffless by Dr. Street 09/09 cont mucomyst BID - has had recurrent mucus plugging when this is changed to PRN (5) Severe protein-calorie malnutrition: Plan: Continue TF via PEG with protein supplements - talya, prosource bid Most recent albumin 4.0. Much improved since admission. (6) History of DVT (deep vein thrombosis): Plan: RLE DVT discovered 11/2022 in [place]. Had been on Eliquis 5mg BID since 12/12/22. Eliquis dosage reduced to 2.5mg BID earlier in this hospitalization for prophylaxis dosing (7) History of nontraumatic rupture of cerebral aneurysm: Plan: Patient is nonverbal at baseline with chronic contractures in all 4 extremities, has eye opening, roving eye movements, grimacing, sleep-wake cycles. Functional quadriplegia. I have not observed visual tracking or purposeful movements during this long hospital stay, however, his family and a few staff members report some degree of responsiveness. CT head shows encephalomalacia and good shunt placement . He unfortunately suffered a ruptured brain aneurysm and SAH 08/2022. Status post craniotomy and evacuation of hematoma. 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 He has a ventriculoperitoneal shunt in place. Known resultant severe autonomic dysfunction / paroxysmal sympathetic hyperactivity / autonomic storm which is controlled on medications and has the potential to be confused with sepsis. No issues with storming in quite some time. NO changes in any chronic meds for his autonomic storming (8) Autonomic dysfunction: Plan: Continue dantrolene and bromocriptine. Continue gabapentin and baclofen for spasticity. Continue scop patch (for excessive secretions) and tylenol scheduled. He has tolerated being off the scheduled tylenol by my observation several times in the past, without fever. (9) Cardiomyopathy: Plan: last echo 07/11/23 - low normal EF 50-55%. No acute current problems. Continue metoprolol 12.5mg BID. has had no volume overload/edema and is not on diuretics (10) Tracheostomy status: Plan: cont local trach care. 09/10/23 - trach changed to 8.0 uncuffed tracheostomy tube by Dr. Street trach exchanged 11/27/23, by Dr Lock -- Size 8 un-cuffed nonfenestrated trach suctioning prn. cont mucomyst nebs BID cont albuterol prn (11) Candidiasis: Plan: has required topical anti-yeast powders & diflucan off/on during this stay resolved (12) Vitamin D insufficiency: Plan: 25-OH vit D level - 23.5 vitamin D 5000 IU daily via PEG recheck a level in 2-4 weeks Plan trach exchanged 09/09 and 11/27/23 (Size 8 un-cuffed nonfenestrated trach) peg tube changed / condom cath placed / dispo - SNF placement in [place] hopefully this week pt's mother updated by phone 12/01/23 Admission and Anticipated Discharge Date Admission Date: July 18, 2023 Subjective nonverbal no events Physical Exam Physical Exam: PHYSICAL EXAMINATION Last 24h vital signs reviewed, see documentation in flowsheet General: sleeping HEENT: R skull deformity unchanged. trach site anterior neck cdi Lungs: nonlabored respiratory effort clear to auscultation bilaterally no rhonchi rales or wheezes Heart: Reg no mrg Abdomen: soft nondistended. +BT. gtube LUQ. : condom cath, urine in bag clear yellow Extremities: Warm, dry, well-perfused. No extremity edema. diffuse sarcopenia present. Sacral wound photo 12/04 - pink granulation tissue over most of base, small central area with yellow exudate, no dark areas, stable Neuro: eyes closed, remains nonresponsive to voice or exam. he has flexion contractures of both wrists, right elbow, bilateral lower extremities. Psych: unable to assess Results & Data Results & Data Vital Signs (Past 12 Hours) Vital Signs Temp Pulse Pulse Resp BP BP Pulse Ox 12/05/23 15:07 37.1 C 86 16 106/73 95 12/05/23 10:45 78 16 99 12/05/23 07:32 12/05/23 07:15 36.6 C 85 14 116/75 98 12/05/23 06:58 82 15 99 O2 Del Method O2 Flow Rate FiO2 12/05/23 15:07 Trach Collar 6 28 12/05/23 10:45 Trach Collar 6 28 12/05/23 07:32 Trach Collar 6 28 12/05/23 07:15 Trach Collar 6 28 12/05/23 06:58 Trach Collar 6 28 PG Care Time/CCT Total # of Minutes Spent Total Time Spent with Patient: Total time spent is greater than 50% in coordination of care (as documented) at patient's floor/unit and/or counseling patient: Coding Level of Care Code 71048 SUB INP/OBS CARE 07/17MIN Diagnoses Decubitus ulcer of sacral region, stage 4 L89.154 Bacteremia due to Pseudomonas R78.81; B96.5 Chronic osteomyelitis of sacrum M86.68 Hospital acquired PNA J18.9; Y95 Severe protein-calorie malnutrition E43 History of DVT (deep vein thrombosis) Z86.718 History of nontraumatic rupture of cerebral aneurysm Z86.79 Autonomic dysfunction G90.9 Cardiomyopathy I42.9 Tracheostomy status Z93.0 Candidiasis B37.9 Vitamin D insufficiency E55.9
--- NOTE | 2023-12-06 12:35 | XRay Report ---
KUB HISTORY: Acute generalized abdominal pain with distention abdominal distention COMPARISON: 08/23/2023 FINDINGS: Extensive colonic fecal retention. A gastrostomy tube projects over the stomach. Renal shad ows are obscured. Visualized shunt catheter appears intact within the left upper quadrant. No urolith identified. No acute fracture. Demineralized appearance of the bones. IMPRESSION: 1. Extensive colonic fecal retention redemonstrated with nonobstructive bowel gas pattern. 2. Gastrostomy tube projects over the epigastric abdomen. ACT 112: Negative or not required by law. The above report was generated using voice recognition software. It may contain grammatical, syntax o r spelling errors. Electronically signed by: Corey Rodgers M.D. 12/06/2023 12:34 PM
[2023-12-06 12:41] LABS: Basophils # (auto) 0.03 K/uL (0.00-0.20); Basophils % (auto) 0.3 %; Eosinophils # (auto) 0.22 K/uL (0.00-0.50); Eosinophils % (auto) 2.5 %; Hematocrit (blood only) 37.8 % (42.0-52.0); Hemoglobin 12.3 g/dl (14.0-18.0); Immature Granulocytes # (auto) 0.04 K/uL (0.01-0.20); Immature Granulocytes % (auto) 0.4 %; Lymphocytes # (auto) 1.38 K/uL (1.20-3.40); Lymphocytes % (auto) 15.4 %; Mean Corpuscular Hemoglobin 30.2 pg (25.0-34.0); Mean Corpuscular Hgb Conc 32.5 g/dL (32.0-36.0); Mean Corpuscular Volume 92.9 fL (80.0-100.0); Mean Platelet Volume 10.5 fL (9.4-12.4); Monocytes # (auto) 0.73 K/uL (0.11-0.59); Monocytes % (auto) 8.1 %; Neutrophils # (auto) 6.57 K/uL (1.40-6.50); Neutrophils % (auto) 73.3 %; Platelet Count 252 K/uL (130-400); RDW Coefficient of Variation 14.3 % (11.5-14.5); RDW Standard Deviation 48.2 fL (36.4-46.3); Red Blood Count 4.07 M/uL (4.70-6.10); White Blood Count 8.97 K/ul (4.8-10.8)
[2023-12-06 12:57] LABS: Alanine Aminotransferase 12 U/L (7-52); Albumin Globulin Ratio 1.2 (0.9-2); Alkaline Phosphatase 55 U/L (34-104); Anion Gap 7 (3-11); Aspartate Aminotransferase 10 U/L (13-39); Bilirubin,Total 0.3 mg/dl (0.2-1.0); Blood Urea Nitrogen 36 mg/dl (6-23); Calcium 9.4 mg/dl (8.6-10.3); Carbon Dioxide 27 mmol/L (21-32); Chloride 103 mmol/L (98-107); Creatinine Clr Calc Pharmacy 188.9 ml/min; Est GFR (African American) > 150.0 ml/min; Est GFR (Non-African American) 148.7 ml/min; Globulin 3.3 gm/dl (2.5-4.0); Glucose 113 mg/dl (70-99(Fasting)); Potassium 3.9 mmol/L (3.5-5.1); Sodium 137 mmol/L (136-145); Total Protein 7.3 gm/dl (6.0-8.3)
[2023-12-06] MEDS: bisacodyL 10 MG SUPP PR STA (13:18)
[2023-12-06] MEDS: MAGNESIUM CITRATE 296 ML/BTL PEG ONE (14:14)
[2023-12-06 14:24] LABS: Lipase 20 U/L (11-82)
--- NOTE | 2023-12-06 17:03 | Hospitalist Progress Note ---
Date of Service December 06, 2023 Assessment & Plan (1) Abdominal distention: Plan: noted to have abdominal distention and less wakefulness on 12/05 Tmax 37.6 this morning otherwise temperatures have been normal cande routine labs including CBC with differential and CMP as well as lipase all of which were unremarkable KUB abdomen obtained reviewed film shows a very large amount of stool in the left-sided colon, nonobstructive bowel gas pattern wonder if the constipation has happened because of changing of his tube feeding formula about 2 weeks ago, had previously been very stable on current bowel regimen - had stools today after Dulcolax suppository, also gave half bottle of mag citrate - increased daily MiraLAX to 1 packet twice daily, continue senna 2 tabs daily (2) Decubitus ulcer of sacral region, stage 4: Plan: Ry is a 33 y/o man who unfortunately had ruptured brain aneurysm August of 2022 treated at [facility]. He required trach and gtube. Subsequently he has continued to have poor neurologic status. He maintains sleep/wake cycles and appears to be in PVS or minimally responsive state. During previous admission to this facility in early winter he was treated for gram positive bacteremias - 2 week course of IV vancomycin was completed early this admission. Other notable events include development of left sided pneumonia in July 25/2024 treated with IV antibiotics to cover pseudomonas as well as bronchoscopy x 2 for mucus plugging. This has resolved. He developed pseudomonas bacteremia due to CAUTI this spring, also treated with IV antibiotics and resolved. Silva was able to be discontinued. For at least the past month at least he has been on condom catheter without urinary retention. Present on admission. cont to slowly improve wound photo reviewed 12/04 appreciate assistance by Ms Jesus and her wound care team - s/p debridement in the OR by Dr Issa on 07/31/23. - Wound vac placed on 08/01. Wound vac then changed to a pulsating irrigation woundvac on 08/21/23. - Due to lack of improvement and worsening appearance of his ulcer he underwent repeat debridement in the OR by Dr Dorsey on 08/25/23. - on 09/04 the woundvac was removed due to candidiasis (extensive) in sacral area. Treated with fluconazole. Woundvac ultimately placed back. - 2-3 weeks ago we informally we asked plastic surgery whether patient would be a candidate for a skin graft/flap - surgery not advised, not thought to be a candidate because of overall poor health status and neurologic status; ongoing wound care recommended only - wound vac continued through 12/03/23 when discontinuation recommended by wound care nurse. Has continued to have slow improvement. Continue wound care and pressure offloading Ry will need to follow with either the [facility], [facility], or come to [facility] CBC and CMP reviewed 12/05 and are unremarkable. remains anemic with hemoglobin 12.7 but that is 1 point improved from 1 month ago and 3 points improved from September albumin of 4 on 12/05 (3) Bacteremia due to Pseudomonas: Plan: Bacteremia due to pseudomonas CAUTI late September 2023 Treated with 14 days cefepime and resolved Now with condom cath (4) Chronic osteomyelitis of sacrum: Plan: at time of admission he had sacral decubitus which was worsening and early on visible bone was present intra-op culture from 07/31 with MSSA, pseudomonas, providencia, and anaerobes. completed 6 weeks of IV antibiotics (mainly cefepime), ending in late August 2023 Sacral bone biopsy 08/24 with VRE and 2-week course of linezolid completed 09/13/23. He has not been on dedicated abx since August 2023 for the sacrum there has been no palpable bone or visible bone since early in the hospitalization (5) Hospital acquired PNA: Plan: LLL pseudomonas pneumonia 07/2023 treated mainly with cefepime Required bronchoscopies x 2 for mucus plugging No issues recently trach changed to cuffless by Dr. Street 09/09 cont mucomyst BID - has had recurrent mucus plugging when this is changed to PRN (6) Severe protein-calorie malnutrition: Plan: Continue TF via PEG with protein supplements - talya, prosource bid Most recent albumin 4.0. Much improved since admission. (7) History of DVT (deep vein thrombosis): Plan: RLE DVT discovered 11/2022 in [place]. Had been on Eliquis 5mg BID since 12/12/22. Eliquis dosage reduced to 2.5mg BID earlier in this hospitalization for prophylaxis dosing (8) History of nontraumatic rupture of cerebral aneurysm: Plan: Patient is nonverbal at baseline with chronic contractures in all 4 extremities, has eye opening, roving eye movements, grimacing, sleep-wake cycles. Functional quadriplegia. I have not observed visual tracking or purposeful movements during this long hospital stay, however, his family and a few staff members report some degree of responsiveness. CT head shows encephalomalacia and good shunt placement . He unfortunately suffered a ruptured brain aneurysm and SAH 08/2022. Status post craniotomy and evacuation of hematoma. 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 He has a ventriculoperitoneal shunt in place. Known resultant severe autonomic dysfunction / paroxysmal sympathetic hyperactivity / autonomic storm which is controlled on medications and has the potential to be confused with sepsis. No issues with storming in quite some time. NO changes in any chronic meds for his autonomic storming (9) Autonomic dysfunction: Plan: Continue dantrolene and bromocriptine. Continue gabapentin and baclofen for spasticity. Continue scop patch (for excessive secretions) and tylenol scheduled. He has tolerated being off the scheduled tylenol by my observation several times in the past, without fever. (10) Cardiomyopathy: Plan: last echo 07/11/23 - low normal EF 50-55%. No acute current problems. Continue metoprolol 12.5mg BID. has had no volume overload/edema and is not on diuretics (11) Tracheostomy status: Plan: cont local trach care. 09/10/23 - trach changed to 8.0 uncuffed tracheostomy tube by Dr. Jad barr exchanged 11/27/23, by Dr Lock -- Size 8 un-cuffed nonfenestrated trach suctioning prn. cont mucomyst nebs BID cont albuterol prn (12) Candidiasis: Plan: has required topical anti-yeast powders & diflucan off/on during this stay resolved (13) Vitamin D insufficiency: Plan: 25-OH vit D level - 23.5 vitamin D 5000 IU daily via PEG recheck a level in 2-4 weeks Plan trach exchanged 09/09 and 11/27/23 (Size 8 un-cuffed nonfenestrated trach) peg tube changed 09/25 condom cath placed 10/25 dispo - SNF placement in [place] hopefully this week pt's mother updated at bedside 12/05 Admission and Anticipated Discharge Date Admission Date: July 18, 2023 Subjective increased abdominal distention noticed by nursing this morning, also he seems less awake usually is always awake when his mother is visiting but has been sleeping throughout the day his bedside nurse reports he has been having regular stools including yesterday Physical Exam 2 Physical Exam: PHYSICAL EXAMINATION Last 24h vital signs reviewed, see documentation in flowsheet General: sleeping HEENT: R skull deformity unchanged. trach site anterior neck cdi Lungs: nonlabored respiratory effort clear to auscultation bilaterally no rhonchi rales or wheezes Heart: Reg no mrg Abdomen: soft moderately distended. +BT. gtube LUQ. : condom cath, urine in bag clear yellow Extremities: Warm, dry, well-perfused. No extremity edema. diffuse sarcopenia present. Sacral wound photo 12/04 - pink granulation tissue over most of base, small central area with yellow exudate, no dark areas, stable Neuro: eyes closed, remains nonresponsive to voice or exam. he has flexion contractures of both wrists, right elbow, bilateral lower extremities. Psych: unable to assess Results & Data Results & Data Vital Signs (Past 12 Hours) Vital Signs Temp Pulse Pulse Resp BP Pulse Ox O2 Del Method 12/06/23 14:44 36.9 C 75 16 102/67 98 Trach Collar 12/06/23 08:45 37.6 C H 94 H 14 111/76 97 Trach Collar 12/06/23 08:00 Trach Collar 12/06/23 07:23 83 19 100 Trach Collar O2 Flow Rate FiO2 12/06/23 14:44 7 28 12/06/23 08:45 6 28 12/06/23 08:00 8 12/06/23 07:23 6 28 Laboratory Results 12/06/23 12:16 12/06/23 12:16 PG Care Time/CCT Total # of Minutes Spent Total Time Spent with Patient: Total time spent is greater than 50% in coordination of care (as documented) at patient's floor/unit and/or counseling patient: Coding Level of Care Code 58758 SUB INP/OBS CARE 2/35MIN Diagnoses Abdominal distention R14.0 Decubitus ulcer of sacral region, stage 4 L89.154 Bacteremia due to Pseudomonas R78.81; B96.5 Chronic osteomyelitis of sacrum M86.68 Hospital acquired PNA J18.9; Y95 Severe protein-calorie malnutrition E43 History of DVT (deep vein thrombosis) Z86.718 History of nontraumatic rupture of cerebral aneurysm Z86.79 Autonomic dysfunction G90.9 Cardiomyopathy I42.9 Tracheostomy status Z93.0 Candidiasis B37.9 Vitamin D insufficiency E55.9
[2023-12-06] MEDS: POLYETHYLENE (MIRALAX) 17 GM PACK GT SCH (21:11)
--- NOTE | 2023-12-07 16:03 | Hospitalist Progress Note ---
Date of Service December 07, 2023 Assessment & Plan (1) Abdominal distention: Plan: related to constipation and resolving/resolved constipation probably happened because of changing of his tube feeding formula about 2 weeks ago, had previously been very stable on current bowel regimen - several BMs 12/06 very large one last evening - increased daily MiraLAX to 1 packet twice daily, continue senna 2 tabs daily (2) Decubitus ulcer of sacral region, stage 4: Plan: Ry is a 33 y/o man who unfortunately had ruptured brain aneurysm August of 2022 treated at [facility]. He required trach and gtube. Subsequently he has continued to have poor neurologic status. He maintains sleep/wake cycles and appears to be in PVS or minimally responsive state. During previous admission to this facility in early winter he was treated for gram positive bacteremias - 2 week course of IV vancomycin was completed early this admission. Other notable events include development of left sided pneumonia in July 25/2024 treated with IV antibiotics to cover pseudomonas as well as bronchoscopy x 2 for mucus plugging. This has resolved. He developed pseudomonas bacteremia due to CAUTI this spring, also treated with IV antibiotics and resolved. Silva was able to be discontinued. For at least the past month at least he has been on condom catheter without urinary retention. Present on admission. cont to slowly improve wound photo reviewed 12/04 appreciate assistance by Ms Jesus and her wound care team - s/p debridement in the OR by Dr Issa on 07/31/23. - Wound vac placed on 08/01. Wound vac then changed to a pulsating irrigation woundvac on 08/21/23. - Due to lack of improvement and worsening appearance of his ulcer he underwent repeat debridement in the OR by Dr Dorsey on 08/25/23. - on 09/04 the woundvac was removed due to candidiasis (extensive) in sacral area. Treated with fluconazole. Woundvac ultimately placed back. - 2-3 weeks ago we informally we asked plastic surgery whether patient would be a candidate for a skin graft/flap - surgery not advised, not thought to be a candidate because of overall poor health status and neurologic status; ongoing wound care recommended only - wound vac continued through 12/03/23 when discontinuation recommended by wound care nurse. Has continued to have slow improvement. Continue wound care and pressure offloading Ry will need to follow with either the [facility], [facility], or come to [facility] CBC and CMP reviewed 12/05 and are unremarkable. remains anemic with hemoglobin 12.7 but that is 1 point improved from 1 month ago and 3 points improved from September albumin of 4 on 12/05 (3) Bacteremia due to Pseudomonas: Plan: Bacteremia due to pseudomonas CAUTI late September 2023 Treated with 14 days cefepime and resolved Now with condom cath (4) Chronic osteomyelitis of sacrum: Plan: at time of admission he had sacral decubitus which was worsening and early on visible bone was present intra-op culture from 07/31 with MSSA, pseudomonas, providencia, and anaerobes. completed 6 weeks of IV antibiotics (mainly cefepime), ending in late August 2023 Sacral bone biopsy 08/24 with VRE and 2-week course of linezolid completed 09/13/23. He has not been on dedicated abx since August 2023 for the sacrum there has been no palpable bone or visible bone since early in the hospitalization (5) Hospital acquired PNA: Plan: LLL pseudomonas pneumonia 07/2023 treated mainly with cefepime Required bronchoscopies x 2 for mucus plugging No issues recently trach changed to cuffless by Dr. Street 09/09 cont mucomyst BID - has had recurrent mucus plugging when this is changed to PRN (6) Severe protein-calorie malnutrition: Plan: Continue TF via PEG with protein supplements - talya, prosource bid Most recent albumin 4.0. Much improved since admission. (7) History of DVT (deep vein thrombosis): Plan: RLE DVT discovered 11/2022 in [place]. Had been on Eliquis 5mg BID since 12/12/22. Eliquis dosage reduced to 2.5mg BID earlier in this hospitalization for prophylaxis dosing (8) History of nontraumatic rupture of cerebral aneurysm: Plan: Patient is nonverbal at baseline with chronic contractures in all 4 extremities, has eye opening, roving eye movements, grimacing, sleep-wake cycles. Functional quadriplegia. I have not observed visual tracking or purposeful movements during this long hospital stay, however, his family and a few staff members report some degree of responsiveness. CT head shows encephalomalacia and good shunt placement . He unfortunately suffered a ruptured brain aneurysm and SAH 08/2022. Status post craniotomy and evacuation of hematoma. 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 He has a ventriculoperitoneal shunt in place. Known resultant severe autonomic dysfunction / paroxysmal sympathetic hyperactivity / autonomic storm which is controlled on medications and has the potential to be confused with sepsis. No issues with storming in quite some time. NO changes in any chronic meds for his autonomic storming (9) Autonomic dysfunction: Plan: Continue dantrolene and bromocriptine. Continue gabapentin and baclofen for spasticity. Continue scop patch (for excessive secretions) and tylenol scheduled. He has tolerated being off the scheduled tylenol by my observation several times in the past, without fever. (10) Cardiomyopathy: Plan: last echo 07/11/23 - low normal EF 50-55%. No acute current problems. Continue metoprolol 12.5mg BID. has had no volume overload/edema and is not on diuretics (11) Tracheostomy status: Plan: cont local trach care. 09/10/23 - trach changed to 8.0 uncuffed tracheostomy tube by Dr. Street trach exchanged 11/27/23, by Dr Lock -- Size 8 un-cuffed nonfenestrated trach suctioning prn. cont mucomyst nebs BID cont albuterol prn (12) Candidiasis: Plan: has required topical anti-yeast powders & diflucan off/on during this stay resolved (13) Vitamin D insufficiency: Plan: 25-OH vit D level - 23.5 vitamin D 5000 IU daily via PEG recheck a level in 2-4 weeks Plan trach exchanged 09/09 and 11/27/23 (Size 8 un-cuffed nonfenestrated trach) peg tube changed / condom cath placed / dispo - SNF placement in [place] hopefully this week pt's mother updated at bedside 12/05 Admission and Anticipated Discharge Date Admission Date: July 18, 2023 Subjective had 2 stools following bowel meds in day then a humongous stool last night abdominal distention much improved slightly elevated heart rate of 12/05 resolved, no fevers per nursing more awake today Physical Exam Physical Exam: PHYSICAL EXAMINATION Last 24h vital signs reviewed, see documentation in flowsheet General: sleeping HEENT: R skull deformity unchanged. trach site anterior neck cdi Lungs: nonlabored respiratory effort clear to auscultation bilaterally no rhonchi rales or wheezes Heart: Reg no mrg Abdomen: soft mildly distended. +BT. gtube LUQ. : condom cath, urine in bag clear yellow Extremities: Warm, dry, well-perfused. No extremity edema. diffuse sarcopenia present. Sacral wound photo 12/04 - pink granulation tissue over most of base, small central area with yellow exudate, no dark areas, stable Neuro: eyes closed, remains nonresponsive to voice or exam. he has flexion contractures of both wrists, right elbow, bilateral lower extremities. Psych: unable to assess Results & Data Results & Data Vital Signs (Past 12 Hours) Vital Signs Temp Pulse Resp BP Pulse Ox O2 Del Method O2 Flow Rate 12/07/23 14:50 36.9 C 71 16 117/79 100 Trach Collar 7 12/07/23 08:40 36.8 C 87 16 120/74 97 Room Air 12/07/23 08:00 Trach Collar 12/07/23 07:18 74 12 100 Trach Collar 7 FiO2 12/07/23 14:50 28 12/07/23 08:40 12/07/23 08:00 12/07/23 07:18 28 PG Care Time/CCT Total # of Minutes Spent Total Time Spent with Patient: Total time spent is greater than 50% in coordination of care (as documented) at patient's floor/unit and/or counseling patient: Coding Level of Care Code 06658 SUB INP/OBS CARE 07/17MIN Diagnoses Abdominal distention R14.0 Decubitus ulcer of sacral region, stage 4 L89.154 Bacteremia due to Pseudomonas R78.81; B96.5 Chronic osteomyelitis of sacrum M86.68 Hospital acquired PNA J18.9; Y95 Severe protein-calorie malnutrition E43 History of DVT (deep vein thrombosis) Z86.718 History of nontraumatic rupture of cerebral aneurysm Z86.79 Autonomic dysfunction G90.9 Cardiomyopathy I42.9 Tracheostomy status Z93.0 Candidiasis B37.9 Vitamin D insufficiency E55.9
--- NOTE | 2023-12-08 16:28 | Hospitalist Progress Note ---
Date of Service December 08, 2023 Assessment & Plan (1) Decubitus ulcer of sacral region, stage 4: Plan: Ry is a 33 y/o man who unfortunately had ruptured brain aneurysm August of [address] [facility]. He required trach and gtube. Subsequently he has continued to have poor neurologic status. He maintains sleep/wake cycles and appears to be in PVS or minimally responsive state. During previous admission to this facility in early winter he was treated for gram positive bacteremias - 2 week course of IV vancomycin was completed early this admission. Other notable events include development of left sided pneumonia in July 25/2024 treated with IV antibiotics to cover pseudomonas as well as bronchoscopy x 2 for mucus plugging. This has resolved. He developed pseudomonas bacteremia due to CAUTI this spring, also treated with IV antibiotics and resolved. Silva was able to be discontinued. For at least the past month at least he has been on condom catheter without urinary retention. Present on admission. cont to slowly improve wound photo reviewed 12/04 appreciate assistance by Ms Jesus and her wound care team - s/p debridement in the OR by Dr Issa on 07/31/23. - Wound vac placed on 08/01. Wound vac then changed to a pulsating irrigation woundvac on 08/21/23. - Due to lack of improvement and worsening appearance of his ulcer he underwent repeat debridement in the OR by Dr Dorsey on 08/25/23. - on 09/04 the woundvac was removed due to candidiasis (extensive) in sacral area. Treated with fluconazole. Woundvac ultimately placed back. - 2-3 weeks ago we informally we asked plastic surgery whether patient would be a candidate for a skin graft/flap - surgery not advised, not thought to be a candidate because of overall poor health status and neurologic status; ongoing wound care recommended only - wound vac continues Continue wound care and pressure offloading Ry will need to follow with either the [facility], [facility], or come to [facility] CBC and CMP reviewed 12/05 and are unremarkable. remains anemic with hemoglobin 12.7 but that is 1 point improved from 1 month ago and 3 points improved from September albumin of 4 on 12/05 (2) Abdominal distention: Plan: related to constipation and resolving/resolved constipation probably happened because of changing of his tube feeding formula about 2 weeks ago, had previously been very stable on current bowel regimen - very large BMs 12/06 after dulcolax supp and mag citrate - increased daily MiraLAX to 1 packet twice daily, continue senna 2 tabs daily (3) Bacteremia due to Pseudomonas: Plan: Bacteremia due to pseudomonas CAUTI late September 2023 Treated with 14 days cefepime and resolved Now with condom cath (4) Chronic osteomyelitis of sacrum: Plan: at time of admission he had sacral decubitus which was worsening and early on visible bone was present intra-op culture from 07/31 with MSSA, pseudomonas, providencia, and anaerobes. completed 6 weeks of IV antibiotics (mainly cefepime), ending in late August 2023 Sacral bone biopsy 08/24 with VRE and 2-week course of linezolid completed 09/13/23. He has not been on dedicated abx since August 2023 for the sacrum there has been no palpable bone or visible bone since early in the hospitalization (5) Hospital acquired PNA: Plan: LLL pseudomonas pneumonia 07/2023 treated mainly with cefepime Required bronchoscopies x 2 for mucus plugging No issues recently trach changed to cuffless by Dr. Street 09/09 cont mucomyst BID - has had recurrent mucus plugging when this is changed to PRN (6) Severe protein-calorie malnutrition: Plan: Continue TF via PEG with protein supplements - talya, prosource bid Most recent albumin 4.0. Much improved since admission. (7) History of DVT (deep vein thrombosis): Plan: RLE DVT discovered 11/2022 in [place]. Had been on Eliquis 5mg BID since 12/12/22. Eliquis dosage reduced to 2.5mg BID earlier in this hospitalization for prophylaxis dosing (8) History of nontraumatic rupture of cerebral aneurysm: Plan: Patient is nonverbal at baseline with chronic contractures in all 4 extremities, has eye opening, roving eye movements, grimacing, sleep-wake cycles. Functional quadriplegia. I have not observed visual tracking or purposeful movements during this long hospital stay, however, his family and a few staff members report some degree of responsiveness. CT head shows encephalomalacia and good shunt placement . He unfortunately suffered a ruptured brain aneurysm and SAH 08/2022. Status post craniotomy and evacuation of hematoma. 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 He has a ventriculoperitoneal shunt in place. Known resultant severe autonomic dysfunction / paroxysmal sympathetic hyperactivity / autonomic storm which is controlled on medications and has the potential to be confused with sepsis. No issues with storming in quite some time. NO changes in any chronic meds for his autonomic storming (9) Autonomic dysfunction: Plan: Continue dantrolene and bromocriptine. Continue gabapentin and baclofen for spasticity. Continue scop patch (for excessive secretions) and tylenol scheduled. He has tolerated being off the scheduled tylenol by my observation several times in the past, without fever. (10) Cardiomyopathy: Plan: last echo 07/11/23 - low normal EF 50-55%. No acute current problems. Continue metoprolol 12.5mg BID. has had no volume overload/edema and is not on diuretics (11) Tracheostomy status: Plan: cont local trach care. 09/10/23 - trach changed to 8.0 uncuffed tracheostomy tube by Dr. Street trach exchanged 11/27/23, by Dr Lock -- Size 8 un-cuffed nonfenestrated trach suctioning prn. cont mucomyst nebs BID cont albuterol prn (12) Candidiasis: Plan: has required topical anti-yeast powders & diflucan off/on during this stay resolved (13) Vitamin D insufficiency: Plan: 25-OH vit D level - 23.5 vitamin D 5000 IU daily via PEG recheck a level in 2 weeks Plan trach exchanged 09/09 and 11/27/23 (Size 8 un-cuffed nonfenestrated trach) peg tube changed /5 condom cath placed 5/ dispo - SNF placement in [place] hopefully this week pt's mother updated at bedside 12/05 Admission and Anticipated Discharge Date Admission Date: July 18, 2023 Subjective no events, nonverbal Physical Exam Physical Exam: PHYSICAL EXAMINATION Last 24h vital signs reviewed, see documentation in flowsheet General: awake HEENT: R skull deformity unchanged. trach site anterior neck cdi Lungs: nonlabored respiratory effort clear to auscultation bilaterally no rhonchi rales or wheezes Heart: Reg no mrg Abdomen: soft mildly distended. +BT. gtube LUQ without erythema or drainage. : condom cath, urine in bag clear yellow Extremities: Warm, dry, well-perfused. No extremity edema. diffuse sarcopenia present. Sacral wound photo 12/07 - pink granulation tissue over most of base, small central area with yellow exudate, no dark areas, stable - really unchanged from last photo Neuro: eyes open, remains nonresponsive to voice or exam. he has flexion contractures of both wrists, right elbow, bilateral lower extremities. Psych: unable to assess Results & Data Results & Data Vital Signs (Past 12 Hours) Vital Signs Temp Pulse Resp BP Pulse Ox O2 Del Method O2 Flow Rate 12/08/23 14:23 36.8 C 92 H 16 111/76 95 Trach Collar 12/08/23 08:00 Trach Collar 6 12/08/23 07:46 66 17 98 Trach Collar 7 12/08/23 07:10 36.8 C 82 16 109/75 99 Trach Collar 7 FiO2 12/08/23 14:23 12/08/23 08:00 12/08/23 07:46 28 12/08/23 07:10 PG Care Time/CCT Total # of Minutes Spent Total Time Spent with Patient: Total time spent is greater than 50% in coordination of care (as documented) at patient's floor/unit and/or counseling patient: Coding Level of Care Code 25355 SUB INP/OBS CARE 1/25MIN Diagnoses Decubitus ulcer of sacral region, stage 4 L89.154 Abdominal distention R14.0 Bacteremia due to Pseudomonas R78.81; B96.5 Chronic osteomyelitis of sacrum M86.68 Hospital acquired PNA J18.9; Y95 Severe protein-calorie malnutrition E43 History of DVT (deep vein thrombosis) Z86.718 History of nontraumatic rupture of cerebral aneurysm Z86.79 Autonomic dysfunction G90.9 Cardiomyopathy I42.9 Tracheostomy status Z93.0 Candidiasis B37.9 Vitamin D insufficiency E55.9
[2023-12-09] MEDS: SENNOSIDES 8.8 MG/5 ML UDC PEG SCH (10:13)
--- NOTE | 2023-12-09 18:54 | Hospitalist Progress Note ---
Date of Service December 09, 2023 Assessment & Plan (1) Decubitus ulcer of sacral region, stage 4: Plan: Present on admission. cont to slowly improve yesterday's wound photo reviewed appreciate assistance by Ms Jesus and her wound care team - s/p debridement in the OR by Dr Issa on 07/31/23. - Wound vac placed on 08/01. Wound vac then changed to a pulsating irrigation woundvac on 08/21/23. - Due to lack of improvement and worsening appearance of his ulcer he underwent repeat debridement in the OR by Dr Dorsey on 08/25/23. - on 09/04 the woundvac was removed due to candidiasis (extensive) in sacral area. Treated with fluconazole. Woundvac ultimately placed back. Continues with woundvac exchanges M/W/F by Sherie Jesus informally had asked plastic surgery about 3 weeks ago about whether patient would be a candidate for a skin graft - at that time surgery not advised; ongoing wound care recommended only all recent routine labs have been stable Ry will need to follow with either the [facility], [facility], or come to [facility] center after hospital discharge (2) Bacteremia due to Pseudomonas: Plan: resolved s/p 14 days of IV cefepime --> abx d/c on 10/25/23 source - urinary tract no infectious issues since that previous bacteremia episode (3) Catheter-associated urinary tract infection: Plan: late September 2023 2nd pseudomonas resolved lewis exchanged on 10/24/23, then at family request was removed on 10/26/23 and replaced with condom cath since the exchange he has done well w/o retention (4) Chronic osteomyelitis of sacrum: Plan: intra-op culture from 07/31 with MSSA, pseudomonas, providencia, and anaerobes. Sacral bone biopsy 08/24 with VRE and 2-week course of linezolid completed 09/13/23. He has not been on dedicated abx since August 2023 for the sacrum continue woundvac as in #1 above there has been no palpable bone or visible bone since early in the hospitalization there have been no signs of active infection of the sacrum (no fevers, no rise in wbc count, etc) (5) Hospital acquired PNA: Plan: resolved stable pulmonary status on his chronic O2 - 6 liters serial lung exams have been stable Earlier this admission --> LLL pneumonia. Due to pseudomonas infection. Chronology of events: 08/01 - cxr with worsening infiltrates on left 08/03 - collapse LLL 08/03 - bronchoscopy by Dr Blancas with mucous plugging found in the left-sided bronchial tree s/p removal; 08/07 - s/p bronch by Dr Lock - minimal secretions LLL, no plugs; thick secretions in trach, however 08/09 - bronch cx - pseudomonas, intermediate resistance 08/09 - changed zosyn to cefepime 08/22 - cxr - ongoing LLL infiltrates/effusion - similar to previous imaging 09/17 - cxr showed improved aeration within the left lung base 10/11 - cxr with LLL infiltrate but stable of note - trach changed to cuffless by Dr. Street 09/09 trach exchanged 11/27/23, by Dr Lock -- Size 8 un-cuffed nonfenestrated trach appreciate his assistance cont mucomyst BID cont duonebs prn (6) Severe protein-calorie malnutrition: Plan: resolved. Peg tube replaced 09/25 - Case Most recent albumin 4 Phos wnl Other lytes stable Weight is stable cont current tube feeding regimen per nutrition no recent issues (7) History of DVT (deep vein thrombosis): Plan: RLE DVT discovered 11/2022 in [place]. Had been on Eliquis 5mg BID since 12/12/22. Eliquis dosage reduced to 2.5mg BID earlier in this hospitalization for prophylaxis Tolerating without any signs of GI bleeding, etc. (8) History of nontraumatic rupture of cerebral aneurysm: Plan: Patient is nonverbal at baseline with chronic contractures in all 4 extremities, has eye opening, roving eye movements, grimacing, sleep-wake cycles. Functional quadriplegia. CT head shows encephalomalacia and good shunt placement . He unfortunately suffered a ruptured brain aneurysm and SAH 08/2022. Status post craniotomy and evacuation of hematoma. 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 He has a ventriculoperitoneal shunt in place. Known resultant severe autonomic dysfunction / paroxysmal sympathetic hyperactivity / autonomic storm which is controlled on medications and has the potential to be confused with sepsis. No issues with storming in quite some time. NO changes in any chronic meds for his autonomic storming (9) Autonomic dysfunction: Plan: Continue dantrolene and bromocriptine. Continue gabapentin and baclofen for spasticity. Continue scop patch and tylenol scheduled. (10) Cardiomyopathy: Plan: last echo 07/11/23 - low normal EF 50-55%. No acute current problems. Continue metoprolol 12.5mg BID. No evidence of decompensation on exam during this entire admission. no edema. (11) Tracheostomy status: Plan: cont local trach care. 09/10/23 - trach changed to 8.0 uncuffed tracheostomy tube by Dr. Street trach exchanged 11/27/23, by Dr Lock -- Size 8 un-cuffed nonfenestrated trach suctioning prn. cont mucomyst nebs BID cont albuterol prn (12) Candidiasis: Plan: has required topical anti-yeast powders & diflucan off/on during this stay resolved (13) Onychia of toe: Plan: RIGHT great toe --> resolved no recurrence (14) Vitamin D insufficiency: Plan: 25-OH vit D level - 23.5 (11/16/23) vitamin D 5000 IU daily via PEG recheck a level in 6-8 weeks Plan trach exchanged 09/09 and 11/27/23 (Size 8 un-cuffed nonfenestrated trach) peg tube changed 09/25 condom cath placed 10/25 dispo - SNF placement in [place] - timing very uncertain Admission and Anticipated Discharge Date Admission Date: July 18, 2023 Subjective no events tolerating tube feedings had large BM just before my arrival earlier today had copious secretions - respiratory did routine trach care / suctioning Review of Systems Review of Systems: Unobtainable due to cognitive status Physical Exam Physical Exam: gen - NAD, eyes open, comfortable head - deformity right side from prior craniotomy ear - left - no ulceration on pinnae neck - no JVD; trach present, clean heart - RRR, s1 s2, no murmur lungs - CTA b/l; no wheezes or increased work of breathing abd - soft NT BS+; PEG tube site clean; distension unchanged ext - no edema b/l, pulses 2+ b/l skin - right lateral thigh with circular areas of post-inflammatory hyperpigmentation from prior bullae/blisters neuro - contractures Results & Data Results & Data Vital Signs (Past 12 Hours) Vital Signs Temp Pulse Resp BP Pulse Ox O2 Del Method O2 Flow Rate 12/09/23 15:22 Trach Collar 6 12/09/23 14:01 36.6 C 86 16 136/84 98 Trach Collar 12/09/23 07:56 36.6 C 95 H 16 115/80 98 Room Air 12/09/23 07:00 99 H 20 98 Trach Collar 6 FiO2 12/09/23 15:22 12/09/23 14:01 12/09/23 07:56 12/09/23 07:00 28 PG Care Time/CCT Total # of Minutes Spent Total Time Spent with Patient: Total time spent is greater than 50% in coordination of care (as documented) at patient's floor/unit and/or counseling patient: Coding Level of Care Code 99770 SUB INP/OBS CARE 07/17MIN Diagnoses Decubitus ulcer of sacral region, stage 4 L89.154 Bacteremia due to Pseudomonas R78.81; B96.5 Catheter-associated urinary tract infection T83.511A; N39.0 Chronic osteomyelitis of sacrum M86.68 Hospital acquired PNA J18.9; Y95 Severe protein-calorie malnutrition E43 History of DVT (deep vein thrombosis) Z86.718 History of nontraumatic rupture of cerebral aneurysm Z86.79 Autonomic dysfunction G90.9 Cardiomyopathy I42.9 Tracheostomy status Z93.0 Candidiasis B37.9 Onychia of toe L03.039 Vitamin D insufficiency E55.9
[2023-12-09] MEDS: SENNA 8.6 MG TAB PO SCH (21:52)
[2023-12-10] MEDS: CIPROFLOXACIN HCL 0.3% OP SOLN 2.5 ML BTL OPB SCH (20:29)
[2023-12-10] MEDS: MUPIROCIN 2% OINT 22 GM TUBE EXT SCH (20:30)
--- NOTE | 2023-12-10 21:10 | Hospitalist Progress Note ---
Date of Service December 10, 2023 Assessment & Plan (1) Conjunctivitis: Plan: mainly L eye scant infection R eye start cipro eye drops - 1 drop b/l eyes QID x 7-10 days no evidence of any systemic infection; temps normal; respiratory status stable (2) Onychia of toe: Plan: RIGHT great toe --> several weeks ago had such; treated w/ topical abx oinment with resolution now with recurrent onychia with green purulent discharge - same toe (R great toe) soak in warm, soapy water several times/day if possible bactroban ointment TID keflex 500mg TID via PEG strongly consider podiatry consultation prior to discharge as this issue is likely to re-occur (3) Decubitus ulcer of sacral region, stage 4: Plan: Present on admission. cont to slowly improve yesterday's wound photo reviewed appreciate assistance by Ms Jesus and her wound care team - s/p debridement in the OR by Dr Issa on 07/31/23. - Wound vac placed on 08/01. Wound vac then changed to a pulsating irrigation woundvac on 08/21/23. - Due to lack of improvement and worsening appearance of his ulcer he underwent repeat debridement in the OR by Dr Dorsey on 08/25/23. - on 09/04 the woundvac was removed due to candidiasis (extensive) in sacral area. Treated with fluconazole. Woundvac ultimately placed back. Continues with woundvac exchanges M/W/F by Sherie Jesus or other woundcare contact center team lead informally had asked plastic surgery about 3 weeks ago about whether patient would be a candidate for a skin graft - at that time surgery not advised; ongoing wound care recommended only all recent routine labs have been stable Ry will need to follow with either the [facility], [facility], or come to [facility] center after hospital discharge upon d/c to SNF -- woundvac? other dressing? will confirm with woundcare team in am (4) Bacteremia due to Pseudomonas: Plan: resolved s/p 14 days of IV cefepime --> abx d/c on 10/25/23 source - urinary tract no infectious issues since that previous bacteremia episode (5) Catheter-associated urinary tract infection: Plan: late September 2023 2nd pseudomonas resolved lewis exchanged on 10/24/23, then at family request was removed on 10/26/23 and replaced with condom cath since the exchange he has done well w/o retention (6) Chronic osteomyelitis of sacrum: Plan: intra-op culture from 07/31 with MSSA, pseudomonas, providencia, and anaerobes. Sacral bone biopsy 08/24 with VRE and 2-week course of linezolid completed 09/13/23. He has not been on dedicated abx since August 2023 for the sacrum continue woundvac as in #1 above there has been no palpable bone or visible bone since early in the hospitalization there have been no signs of active infection of the sacrum (no fevers, no rise in wbc count, etc) (7) Hospital acquired PNA: Plan: resolved stable pulmonary status on his chronic O2 - 6 liters serial lung exams have been stable Earlier this admission --> LLL pneumonia. Due to pseudomonas infection. Chronology of events: 08/01 - cxr with worsening infiltrates on left 08/03 - collapse LLL 08/03 - bronchoscopy by Dr Blancas with mucous plugging found in the left-sided bronchial tree s/p removal; 08/07 - s/p bronch by Dr Lock - minimal secretions LLL, no plugs; thick sec retions in trach, however 08/09 - bronch cx - pseudomonas, intermediate resistance 08/09 - changed zosyn to cefepime 08/22 - cxr - ongoing LLL infiltrates/effusion - similar to previous imaging 09/17 - cxr showed improved aeration within the left lung base 10/11 - cxr with LLL infiltrate but stable of note - trach changed to cuffless by Dr. Street 09/09 trach exchanged 11/27/23, by Dr Lock -- Size 8 un-cuffed nonfenestrated trach appreciate his assistance cont mucomyst BID cont duonebs prn (8) Severe protein-calorie malnutrition: Plan: resolved. Peg tube replaced 09/25 - Dr Rhodes Most recent albumin 4 Phos wnl Other lytes stable Weight is stable cont current tube feeding regimen per nutrition no recent issues (9) History of DVT (deep vein thrombosis): Plan: RLE DVT discovered 11/2022 in [place]. Had been on Eliquis 5mg BID since 12/12/22. Eliquis dosage reduced to 2.5mg BID earlier in this hospitalization for prophylaxis Tolerating without any signs of GI bleeding, etc. (10) History of nontraumatic rupture of cerebral aneurysm: Plan: Patient is nonverbal at baseline with chronic contractures in all 4 extremities, has eye opening, roving eye movements, grimacing, sleep-wake cycles. Functional quadriplegia. CT head shows encephalomalacia and good shunt placement . He unfortunately suffered a ruptured brain aneurysm and SAH 08/2022. Status post craniotomy and evacuation of hematoma. 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 He has a ventriculoperitoneal shunt in place. Known resultant severe autonomic dysfunction / paroxysmal sympathetic hyperactivity / autonomic storm which is controlled on medications and has the potential to be confused with sepsis. No issues with storming in quite some time. NO changes in any chronic meds for his autonomic storming (11) Autonomic dysfunction: Plan: Continue dantrolene and bromocriptine. Continue gabapentin and baclofen for spasticity. Continue scop patch and tylenol scheduled. (12) Cardiomyopathy: Plan: last echo 07/11/23 - low normal EF 50-55%. No acute current problems. Continue metoprolol 12.5mg BID. No evidence of decompensation on exam during this entire admission. (13) Tracheostomy status: Plan: cont local trach care. 09/10/23 - trach changed to 8.0 uncuffed tracheostomy tube by Dr. Street trach exchanged 11/27/23, by Dr Lock -- Size 8 un-cuffed nonfenestrated trach suctioning prn. cont mucomyst nebs BID cont albuterol prn (14) Candidiasis: Plan: has required topical anti-yeast powders & diflucan off/on during this stay resolved (15) Vitamin D insufficiency: Plan: 25-OH vit D level - 23.5 (11/16/23) vitamin D 5000 IU daily via PEG recheck a level in 6-8 weeks Plan trach exchanged 09/09 and 11/27/23 (Size 8 un-cuffed nonfenestrated trach) peg tube changed 09/25 condom cath placed 10/25 dispo - SNF placement in [place] - tomorrow? Admission and Anticipated Discharge Date Admission Date: July 18, 2023 Subjective staff today noted purulent discharge from Ry's left eye no change in trach secretions (either color or quantity) no change in O2 requirement (baseline - 6 liters) tolerating tube feedings now having multiple BMs with increase in bowel regimen Review of Systems Review of Systems: Unobtainable due to cognitive status Physical Exam Physical Exam: gen - NAD, sleeping eyes - left eye sclera & conjunctiva injected with yellow discharge; minimal/scant discharge right eye but no injection head - deformity right side from prior craniotomy ear - left - no ulceration on pinnae neck - no JVD; trach present, clean heart - RRR, s1 s2, no murmur lungs - CTA b/l; no wheezes or rales; no increased work of breathing abd - soft NT BS+; PEG tube site clean; distension improved ext - no edema b/l, pulses 2+ b/l skin - right lateral thigh with circular areas of post-inflammatory hyperpigmentation from prior bullae/blisters neuro - contractures musculo - right foot - 1st toe onychia present; erythematous skin where the nailbed meets the skin; lateral corner with expressible green purulent material; dystrophic toenails x all toes; not ingrown however Results & Data Results & Data Vital Signs (Past 12 Hours) Vital Signs Temp Pulse Resp BP Pulse Ox O2 Del Method O2 Flow Rate 12/10/23 20:18 82 18 99 Trach Collar 6 12/10/23 19:44 36.8 C 83 18 103/68 99 Trach Collar 12/10/23 14:12 36.8 C 75 16 117/76 98 Trach Collar 6 FiO2 12/10/23 20:18 28 12/10/23 19:44 12/10/23 14:12 PG Care Time/CCT Total # of Minutes Spent Total Time Spent with Patient: Total time spent is greater than 50% in coordination of care (as documented) at patient's floor/unit and/or counseling patient: Coding Level of Care Code 96594 SUB INP/OBS CARE 2/35MIN Diagnoses Conjunctivitis H10.9 Onychia of toe L03.039 Decubitus ulcer of sacral region, stage 4 L89.154 Bacteremia due to Pseudomonas R78.81; B96.5 Catheter-associated urinary tract infection T83.511A; N39.0 Chronic osteomyelitis of sacrum M86.68 Hospital acquired PNA J18.9; Y95 Severe protein-calorie malnutrition E43 History of DVT (deep vein thrombosis) Z86.718 History of nontraumatic rupture of cerebral aneurysm Z86.79 Autonomic dysfunction G90.9 Cardiomyopathy I42.9 Tracheostomy status Z93.0 Candidiasis B37.9 Vitamin D insufficiency E55.9
[2023-12-11] MEDS: ACETAMINOPHEN 500 MG TAB PO STA (09:41)
--- NOTE | 2023-12-11 09:55 | Discharge Summary ---
Date of Service date of admission - July 18, 2023 date of discharge - December 11, 2023 Admission HPI Per Admitting Provider Ry Viveros is a 32 year old male with a PMH significant for chronic trach, PEG tube, nonverbal status following ruptured brain aneurysm and subsequent craniotomy/hematoma evacuation during hospitalization from August 2022-February 2023, hx of DVT now on Eliquis, Stage IV sacral pressure ulcer, transaminitis, cardiomyopathy, autonomic dysfunction, unstageable pressure of the calf, severe malnutrition, and gram positive bacteremia who was sent back to the [facility] ED via EMS after being refused for re-admission at [facility]. It appears that the plans for the patient were to eventually be moved to [facility] when a bed was available but was to return to [facility] until then. On initial arrival back at [facility] on 07/17/23 he was reportedly having breathing difficulties and family requested he bed evaluated in the ED. His workup was remarkable for an increased leukocytosis of 11.89 (up from 8.91 as of 07/13) but was otherwise unremarkable. Chest xray was negative for acute findings, UA was negative for infection. He remained stable on his baseline 6L via his trach collar. He was discharged back to [facility] early this am. However, when EMS transported him back to [facility] they refused to accept him and demanded he be taken back to the ED for placement at another facility. On arrival in the ED he was noted to be stable. At the time of the exam the patient was resting comfortably in bed in no acute distress. He opens his eyes shortly when woken but falls back asleep, which appears to be his baseline. Per chart review, the patient was just admitted to [facility] from 07/08-07/17 for sepsis due to gram positive bacteremia (coag negative staph not lugdunensis) thought to be from his sacral ulcer, transaminitis, Pneumatosis coli, and unstageable pressure of the calf. Please see discharge summary from 07/17/23 for details. I called and spoke to the patient's mother, Sharlene Viveros ([phone]) to inform her of the present situation. She is aware of the situation and is working with our immigration case worker to coordinate a discharge plan moving forward. Principal Diagnosis 1. Stage 4 sacral decubitus ulcer, present on admission. 2. Chronic sacral osteomyelitis. 3. h/o non-traumatic ruptured brain aneurysm and SAH 08/2022. S/p craniotomy and evacuation of hematoma. [facility], [place], operated by [facility]. 4. SHANK PAPERER shunt status. 5. PEG tube status. Replaced on 09/26/23 with --> 20 Fr Covidien PEG-J gastrostomy tube. 6. Tracheostomy status. Replaced on 11/27/23 with --> size 8 uncuffed nonfenestrated trach. 7. LLL hospital-acquired pneumonia - resolved. 8. Urinary retention - resolved. 9. h/o mucous plugging - resolved. 10. Chronic hypoxic respiratory failure on 6 L O2. 11. Right great toe onychia. 12. B/l conjunctivitis, L>R - resolving. 13. h/o UTI. 14. catheter-associated UTI - 09/2023 - with resulting pseudomonas bacteremia. 15. constipation - resolved. 16. candidiasis of back/sacrum/groin - resolved. 17. h/o autonomic storming - controlled. 18. h/o non-ischemic cardiomyopathy - resolved. 19. h/o DVT; now on chronic Eliquis prophylaxis. 20. Severe protein calorie malnutrition - resolved. 21. Persistent vegetative state. 22. Prior left ear pinnae ulceration - resolved. 23. Vitamin D insufficiency - level 23.5 - repeat level recommended early December 2023. 24. 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 Discharge Exam gen - NAD, sleeping eyes - left eye sclera & conjunctiva injected with mild yellow discharge - improved from prior examination; minimal/scant discharge right eye but no injection head - deformity right side from prior craniotomy ear - left - no ulceration on pinnae neck - no JVD; trach present, clean mouth - poor overall dentition heart - RRR, s1 s2, no murmur lungs - CTA b/l; no wheezes or rales; no increased work of breathing abd - soft NT BS+; PEG tube site clean; has chronic, very mild distension ext - no edema b/l, pulses 2+ b/l skin - right lateral thigh with circular areas of post-inflammatory hyperpigmentation from prior bullae/blisters; dressings intact over sacral region; scar on right posterior calf region neuro - contractures musculo - right foot - 1st toe onychia present; erythematous skin where the nailbed meets the skin; dystrophic toenails x all toes; R great toenail not ingrown despite the onychia Discharge Data Allergies Allergy/AdvReac Type Severity Reaction Status Date / Time No Known Allergies Allergy Unverified 07/08/23 15:52 Consultations General Surgery Pulmonology Infectious Diseases Gastroenterology Wound Care Dietary/nutrition Social work Respiratory therapy Procedures Performed 1. Operation Date: 07/31/23 07:00 Actual Procedures Incision and Debridement of Sacral Decubitus Ulcer(Not Applicable) - Angela Issa, 2. 08/03/23 - Bronchoscopy by Dr Merrill Blancas; repeat bronchoscopy by Dr Dari Lock on 08/07/23 3. Operation Date: 08/25/23 15:00 Actual Procedures Irrigation and Debridement of Sacral Decubitus Ulcer(Not Applicable) - Angela Issa DO 4. PEG tube replacement - 09/26/2023: Findings: Upon external examination, leakage was found surrounding the stomal opening. The gastrostomy tube was malfunctioning and not functioning. The existing gastrostomy site was examined and cleaned. A 20 Fr Covidien PEG-J gastrostomy tube was lubricated and placed into the existing gastrostomy port. A total of 20 mL saline was used to distend the balloon that was previously tested. When positioned, the skin marking was noted to be 4 cm at the external bumper. The final tension and compression of the abdominal wall by the gastrostomy tube and external bumper were checked and revealed that the bumper was loose and lightly touching the skin. Placement into the stomach was confirmed with flushing, aspiration and auscultation. The tube was capped, and the tube site was cleaned and dressed. Impression: The previously removed gastrostomy tube was replaced with a 20 Fr Covidien PEG-J gastrostomy tube. 5. Long-term Wound Vac usage for sacral decubitus ulcer. Removed prior to discharge to SNF. Ordered Studies 1. NUMEROUS chest x-rays 2. Multiple KUB x-rays Hospital Course (1) Decubitus ulcer of sacral region, stage 4: Present on admission. Multidisciplinary approach was needed to optimize wound healing. General surgery, wound care nurse team, infectious diseases, nutrition/dietary, along with efforts from nursing were all involved to improve the sacral decub. Timeline of his decubitus care - * from admission to 07/31/23 - wound care advised traditional dressings. * s/p debridement in the OR by Dr Angela Issa on 07/31/23 due to worsening decubitus. * Wound vac placed 08/01/23. * Wound vac then changed to a pulsating irrigation woundvac on 08/21/23. * Due to lack of improvement and worsening appearance of his ulcer he underwent repeat debridement in the OR by Dr Dorsey on 08/25/23. * 09/05/23 the woundvac was removed due to candidiasis (extensive) in sacral area. Candidiasis treated with fluconazole. Woundvac ultimately placed back on 09/09/23. * He remained on the woundvac for the rest of his stay (with just a couple of brief pauses). The woundvac was exchanged on Mondays/Wednesdays/Fridays. The pulsating irrigation woundvac was changed back to a standard wound in early September 2023. * late Oct, 2023 - informally had asked plastic surgery whether patient was a candidate for a skin graft - at that time graft not advised; ongoing wound care recommended only. Ry will need to follow with either the [facility], [facility], or come to [facility] in [place] after hospital discharge unless there is a dedicated wound care service at [facility]. At time of discharge his wound care instructions are as follows: (2) Chronic osteomyelitis of sacrum: Intra-op culture from 07/31/23 debridement procedure grew MSSA, pseudomonas, providencia, and anaerobes. He received a course of antibiotics for the above. Sacral bone biopsy 08/25/23 with VRE and 2-week course of linezolid completed 09/13/23 (as recommended by infectious diseases). He has not been on dedicated antibiotics for the sacrum since August 2023. Continue local wound care as in #1 above. There has been no palpable bone or visible bone since early in the hospitalization. There have been no signs of active infection of the sacrum or wound in several months (no fevers, no rise in wbc count, no purulent drainage, etc). (3) Conjunctivitis: developed such 24 hours prior to hospital discharge. bilateral, but mainly the Left eye. Cipro eye drops - 1 drop b/l eyes QID x 7-10 days. no evidence of any systemic infection; temps normal; respiratory status stable. attempted otoscopic exam of tympanic membranes on day of discharge but both were obscured by copious cerumen. (4) Onychia of toe: RIGHT great toe. About 1 month prior to discharge he had a mild case of onychia of this toe. Treated w/ topical bactroban ointment with resolution. About 1-2 days prior to discharge developed recurrent onychia of the same toe. Green purulent discharge was expressed from the lateral nail border. Advise - * soak the foot in warm, soapy water several times/day if possible * bactroban ointment TID x 10 days * keflex 500mg TID via PEG x 10 days Please obtain podiatry consultation upon admission to [facility] for further management of the onychia as well as toenail care of all toes. (5) Catheter-associated urinary tract infection: late September 2023 2nd pseudomonas UTI complicated by bacteremia resolved with course of IV cefepime lewis exchanged on 10/24/23, then at family request was removed on 10/26/23 and replaced with a condom catheter fortunately, since the pattern changer and repairer to a condom cath, he has done well w/o urinary retention (6) Bacteremia due to Pseudomonas: s/p 14 days of IV cefepime with last day of therapy on 10/25/23 source - urinary tract (7) Hospital acquired PNA: Early in the admission. LLL pneumonia. Due to pseudomonas infection. Chronology of events: 08/01 - cxr with worsening infiltrates on left 08/03 - collapse of LLL 08/03 - urgent bronchoscopy by Dr Merrill Blancas, pulmonary/critical care, with mucous plugging found in the left-sided bronchial tree s/p removal 08/07 - s/p bronch by Dr Dari Lock, pulmonary/critical care - minimal secretions LLL, no plugs; thick secretions in trach, however 08/09 - bronch cx - pseudomonas, intermediate resistance 08/09 - changed zosyn to cefepime 08/22 - cxr - ongoing LLL infiltrates/effusion - similar to previous imaging 09/17 - cxr showed improved aeration within the left lung base 10/11 - cxr with LLL infiltrate but stable subsequent chest x-rays have been clear with no further LLL findings of note - trach changed to cuffless by Dr. Hao Street, pulmonary/critical care, on 09/10/23 trach exchanged again 11/27/23, by Dr Lock -- Size 8 un-cuffed nonfenestrated trach cont mucomyst BID SCHEDULED to promote movement of secretions, avoidance of plugs, etc. attempts to make her mucomyst prn were met with worsening, thick secretions and development of plugs typical secretions are thin, white, slightly yellow tinged at times cont duonebs prn (8) Severe protein-calorie malnutrition: resolved. Peg tube replaced 09/26/23 - Dr Merida Case of [facility] Gastro[facility]. Most recent albumin 4 Phos levels wnl Other electrolytes stable Dietary recommendations for tube feedings via PEG at time of discharge: (9) History of DVT (deep vein thrombosis): RLE DVT discovered 11/2022 at [facility], [place], operated by [facility]. Had been on Eliquis 5mg BID since 12/12/22. Eliquis dosage reduced to 2.5mg BID earlier in this hospitalization for prophylaxis purposes. Tolerating without any signs of GI bleeding, etc. (10) History of nontraumatic rupture of cerebral aneurysm: He unfortunately suffered a ruptured brain aneurysm and SAH 08/2022. Status post craniotomy and evacuation of hematoma at [facility], [place], operated by [facility]. Had prolonged hospital stay in [place] as noted in the admission history. Patient is nonverbal at baseline with chronic contractures in all 4 extremities, has eye opening, roving eye movements/nystagmus, grimacing, sleep-wake cycles. Functional quadriplegia. There has been no purposeful behaviors/activity at any point during this protracted hospitalization. CT head shows encephalomalacia and good shunt placement . 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 He has a ventriculoperitoneal shunt in place. He has known resultant severe autonomic dysfunction / paroxysmal sympathetic hyperactivity / autonomic storm which is controlled on medications and has the potential to be confused with sepsis. No issues with storming in quite some time, however. (11) Autonomic dysfunction: Continue dantrolene and bromocriptine. Continue gabapentin and baclofen for spasticity. Continue scop patch and tylenol scheduled. (12) Cardiomyopathy: Echo 07/11/23 - low normal EF 50-55%. No acute current problems. Continue metoprolol 12.5mg BID. No evidence of decompensation on exam during this entire admission. (13) Tracheostomy status: cont local trach care. 09/10/23 - trach changed to 8.0 uncuffed tracheostomy tube by Dr. Street trach exchanged 11/27/23, by Dr Lock -- Size 8 un-cuffed nonfenestrated trach suctioning prn. cont mucomyst nebs BID - SCHEDULED. cont duonebs prn. baseline O2 requirement - 6 liters continuously via trach collar. (14) Candidiasis: has required topical anti-yeast powders & diflucan off/on during this stay now resolved (15) Vitamin D insufficiency: 25-OH vit D level - 23.5 (11/16/23) vitamin D 5000 IU daily via PEG recheck a level in 6-8 weeks (16) Vegetative state: see #10 above trach/PEG status patient's family remains extremely hopeful for neurological recovery despite extremely limited chances of that occurring goals of care and code status discussions were not carried out during this hospitalization during a prior hospitalization a goals of care discussion took place and his mother/aunt requested ongoing routine care, full code status, etc. Plan trach exchanged 09/10/23 and 11/27/23 (Size 8 un-cuffed nonfenestrated trach) PEG tube changed 09/26/23 condom cath placed 10/26/23 dispo - [facility] - [facility]eto FERNANDEZ Total Time Total Time Spent Total Time Spent (In Minutes): 80 Discharge Plan Discharge Items Patient Disposition: Transfer [facility] Fac Reason For Visit: NEED FOR PLACEMENT Discharge Diagnosis: 1. Stage 4 sacral decubitus ulcer, present on admission. 2. Chronic sacral osteomyelitis. 3. h/o non-traumatic ruptured brain aneurysm and SAH 08/2022. S/p craniotomy and evacuation of hematoma. [facility], [place], operated by [facility]. 4. SHANK PAPERER shunt status. 5. PEG tube status. Replaced on 09/26/23 with --> 20 Fr Covidien PEG-J gastrostomy tube. 6. Tracheostomy status. Replaced on 11/27/23 with --> size 8 uncuffed nonfenestrated trach. 7. LLL hospital-acquired pneumonia - resolved. 8. Urinary retention - resolved. 9. h/o mucous plugging - resolved. 10. Chronic hypoxic respiratory failure on 6 L O2. 11. Right great toe onychia. 12. B/l conjunctivitis, L>R - resolving. 13. h/o UTI. 14. h/o pseudomonas bacteremia. 15. constipation - resolved. 16. candidiasis of back/sacrum/groin - resolved. 17. h/o autonomic storming - controlled. 18. h/o non-ischemic cardiomyopathy - resolved. 19. h/o DVT; now on chronic Eliquis prophylaxis. 20. Severe protein calorie malnutrition - resolved. 21. Persistent vegetative state. 22. Prior left ear pinnae ulceration - resolved. 23. Vitamin D insufficiency - level 23.5 - repeat level recommended early December 2023. 24. 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 Activity: Per Instructions section Non-emergency contact: Primary Care Provider and Specialist Call non-emergency contact if: you have any medication questions, your symptoms worsen, you have a fever, your wound has increased redness, your wound has increased drainage and your wound pain has increased Follow-up/Referrals: Bebeto Elizabeth [Other] Sandra Madrid DO, FACEP [Physician] - (patient may follow-up with the [facility] for sacral wound if no other wound care clinic is available in the [place] area. Ry should be seen within 1 week if possible by a dedicated wound care clinic. ) Diet: Nothing by Mouth Addtl Attending Provider Instructions: 1. Routine tracheostomy care, suctioning PRN, currently 6L O2 by trach collar. Titrate to maintain O2 sat >92%. -continue scheduled acetylcysteine nebs twice daily (or hypertonic saline if acetylcysteine nebs are not available) - he develops mucus plugging when these are changed to PRN. 2. Continue condom catheter, bladder scan as needed. 3. Routine PEG-tube care and dressing changes. 4. Tube feeding regimen: continue protein supplements to promote wound healing water flushes 200 mL per gtube q4h. Has high insensible water losses, Na BUN/Cr have been stable on this amount Peptamen 1.5 (or Fibersource HN if available, has been in shortage) Peptamen 1.5 with a goal rate of 55 mL/hr continuously via PEG. This provides patient with ~ 1980 Kcals, ~ 90 g protein, ~ 250 g CHO, and ~ 1000 mL of free water each day. Free water flushes - 200 mL every 4 hours; adjust as needed. ProSource NoCarb BID. Continue to provide MVI, vitamin C, and Christiano (BID) for further assistance with wound healing. Check Daily weights. 5. Skin care: Continue waffle boots to protect heels Caution with any pressure on skin - develops blister or wounds easily (for example, try to keep feeding tube / tubing wrapped in gown rather than on skin) Continue q2h turns, pressure relief mattress or overlay. Has tendency to roll toward L side, putting pressure on L side of sacral wound. Also has head tilt to left putting pressure on his left ear. 6. Wound care: "To sacral wound : Irrigate with saline using 35cc syringe and 18g blunt needle. Fill wound with saline moistened scot, 4x4 gauze and secure with Optifoam. Change every other day and as needed for increased drainage or if soiled. Turn and reposition pt. at least every 2 hours. No pillows under sacral area, place pillow above hips. Oje-wiz-kjox mattress Waffle boots" 7. Monitor CBC, BMP, albumin every 1-2 weeks. 8. Will develop autonomic storming/instability (fever, tachycardia, sweating) if missing scheduled meds especially dantrolene, bromocriptine, tylenol, etc. This has the potential to be confused with sepsis. 9. Right great toe onychia - fill small tub with warm, soapy water. Soak right foot in tub for 20-30 minutes three times daily for 7 days - if possible. 10. Podiatry consult rafa for right great toe onychia as well as toenail care x 10 toes. 11. Pulmonology referral to follow tracheostomy. 12. After arrival at [facility] may remove peripheral IV. 13. Dietary/nutrition consult to follow nutrition/PEG tube feedings. 14. Wound Care clinic - within 1 week if possible - any wound care facility ([place], [facility], or [place]) suffices. Diagnosis- stage 4 sacral decubitus ulcer Addtl Irrigation Engineer Provider Instructions: Current status of sacral decubitus ulcer as of 12/10/23 - Pending Studies at Discharge: No Stand-Alone Forms: [facility] Skilled Items Patient informed of condition?: No DNR: No Discharge Level of Care: Skilled Communicable Disease: No Discharge Prognosis: Stable Lines: Peripheral IV Urinary Catheter: Yes (condom catheter ) Medications and DC Order Prescriptions: New ipratropium-albuterol 0.5 mg-3 mg(2.5 mg base)/3 mL Solution For Nebulization 3 ml NEB Q4R PRNQty: 0 0RF Eliquis 2.5 mg Tablet 2.5 mg PO BID Qty: 0 0RF gabapentin 250 mg/5 mL Solution 400 mg G-tube Q6 Qty: 0 0RF metoprolol tartrate 25 mg Tablet 12.5 mg PEG Q12 Qty: 0 0RF Christiano (with collagen) 7-7-1.5 gram Powder In Packet 1 packet PEG BID Qty: 0 0RF Peptamen 1.5 0.068 gram- 1.5 kcal/mL Liquid See Rx Instructions .ROUTE .COMPLEX Qty: 0 0RF Rx Instructions: see orders polyethylene glycol 3350 [Miralax] 17 gram Powder In Packet 17 g G-tube DAILY Qty: 0 0RF melatonin 3 mg Tablet 3 mg PO HS Qty: 0 0RF sennosides [senna] 8.8 mg/5 mL Syrup 17.2 mg PEG HS Qty: 0 0RF ProSource No Carb 15-60 gram-kcal/30 mL Liquid In Packet See Rx Instructions .ROUTE .COMPLEX Qty: 0 0RF Rx Instructions: 30 mL per gtube bid acetylcysteine 200 mg/mL (20 %) Solution 5 ml inhalation BIDR Qty: 0 0RF miconazole nitrate [Desenex] 2 % Powder 1 applic EXT DAILY PRNQty: 0 0RF cholecalciferol (vitamin D3) 25 mcg (1,000 unit) Capsule 25 mcg PEG QAM Qty: 0 0RF Liquid Multivitamin 9 mg iron/ 15 mL (15 mL) Liquid 15 ml PEG QAM Qty: 0 0RF Tube Feeding Water Flush 200 ml PEG Q4H Qty: 0 0RF cephalexin 250 mg/5 mL Suspension For Reconstitution 500 mg G-tube TID 10 Days Qty: 300 0RF ciprofloxacin HCl 0.3 % Drops 1 drp OPB QID 7 Days Qty: 1 1RF Rx Instructions: apply to both eyes mupirocin 2 % Ointment 1 applic EXT TID 10 Days Qty: 30 1RF Rx Instructions: apply to right great toe - all areas of redness where the nail meets the skin. apply liberally Advanced Probiotic 625 mg (10 billion cell) Capsule 1 cap PO DAILY 10 Days Qty: 10 0RF Rx Instructions: give via PEG tube Continued scopolamine base 1 mg over 3 days Patch 3 Day 1 patch TRANSDERMAL Q3D bromocriptine 2.5 mg Tablet 2.5 mg feeding tube Q6 Qty: 120 11RF acetaminophen 325 mg/10.15 mL Suspension 650 mg PEG Q6 Qty: 250 0RF dantrolene 100 mg capsule 100 mg feeding tube Q6H bisacodyl 10 mg Suppository 10 mg NM .EVERY 24 HOURS PRN (Reason: Constipation) ascorbic acid (vitamin C) 500 mg Tablet 500 mg PO DAILY ferrous sulfate 300 mg (60 mg iron)/5 mL Liquid 325 mg feeding tube Q OTHER DAY baclofen 20 mg tablet 20 mg feeding tube Q6 Fleet Enema 19-7 gram/118 mL Enema 118 ml NM .MORNING OF 4TH DAY PRN (Reason: Constipation) Rx Instructions: gvie in the morning of the 4th day without a BM Discontinued gabapentin 400 mg capsule 400 mg feeding tube Q4H Saccharomyces boulardii 250 mg Capsule 250 mg feeding tube DAILY Magic Mix See Rx Instructions .ROUTE .COMPLEX Rx Instructions: Nystatin 60g/Silvadene 60g/Hydrocortisone 1% 60g cream: Apply to Buttocks/Coccyx topically every day and evening shift for skin alteration area. multivitamin Tablet 1 tab feeding tube QAM Rx Instructions: CRUSHED zinc sulfate 50 mg zinc (220 mg) Tablet 50 mg feeding tube DAILY Eliquis 5 mg tablet 5 mg feeding tube BID metoprolol tartrate 25 mg tablet 25 mg PEG Q12 Proheal 30 ml feeding tube BID Rx Instructions: mix well with 100 ml water Jevity 1.5 Lance 0.06 gram-1.5 kcal/mL Liquid 1 ea feeding tube Q4 Rx Instructions: 240 ml bolus q4 hours for total volume of 1440 ml per day water Liquid 1 ea UD Rx Instructions: 200 ml of water flush every 4 hours via gravity total 2000 ml magnesium hydroxide [Milk of Magnesia] 400 mg/5 mL Suspension 2,400 mg feeding tube DAILY PRN (Reason: Constipation) Rx Instructions: give if no BM on the morning of the 3rd day Santyl 250 unit/gram Ointment 1 applic TOPICAL .EVERY DAY SHIFT Rx Instructions: cleanse with normal saline,apply Santyl to base of wound,secure with borered dressing. Santyl 250 unit/gram Ointment 1 applic TOPICAL DIRECTED PRN (Reason: soilage/dislodgement) Rx Instructions: apply to sacrum topically as neded for soilage/dislodgement. cleanse with normal saline,apply Santyl to base of wound,secure with bordered dressing Discharge Orders: Discharge Order (Routine); Ordered 12/11/23 Ordered By: Wilner Lloyd Admission Data Admit Date/Time: 07/18/23 13:11 Attending Provider: Wilner Lloyd Admit Provider: Wilner Holland Primary Care Provider: PCP,NO Other Providers: Wilner Holland; Angela Issa; Neo Ramesh; Karthikeyan Blancas; Kenneth Street; Dari Lock; Africa Naik; Noemy Louis; Faheem Fan; Selvin Wells; Alice Tripathi; Mesfin Simental; Gila Correa; Fuad Rhodes; Edith Wong; Nathalie Alegria; Clarita Sesay; Trudy Matthew; Sue Munroe; Freddy Sadler; Jordan Zuñiga; Dirk Theodore; Aliya Kwong; Samantha Edwards; Naty Rosario; Camilla Denny; Janet Caceres; Kaya Nelson; Juancho Strong; Jason Torres; Eddy Shannon; Amalia Josue; Yonathan Peterson Jr Other Interventions: Discharge Summary Assessment (RN) Last Done: 12/11/23 09:26 Coding Level of Care Code 83685 INP/OBS DISCH >30 MIN Diagnoses Decubitus ulcer of sacral region, stage 4 L89.154 Chronic osteomyelitis of sacrum M86.68 Conjunctivitis H10.9 Onychia of toe L03.039 Catheter-associated urinary tract infection T83.511A; N39.0 Bacteremia due to Pseudomonas R78.81; B96.5 Hospital acquired PNA J18.9; Y95 Severe protein-calorie malnutrition E43 History of DVT (deep vein thrombosis) Z86.718 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
--- NOTE | 2023-12-12 13:45 | Coding Query ---
DEBRIDEMENT DOCUMENTATION To promote full compliance with coding requirements relating to patient care, physician participation is requested in all cases of braille coder uncertainty. Please assist us with the question(s) below: Please place an X in the parenthesis (x). If other, please document the finding: Type of Debridement:: RE: 07/31 Debridement of Sacral decubitus ( x) Excisional Debridement- Cutting away necrotic, devitalized tissue or slough to the level of viable tissue using a sharp instrument (i.e. scalpel, scissors, etc.) ( ) Non Excisional Debridement- The removal of necrotic, devitalized tissue or slough by means of scraping, mechanical brushing, flushing, or washing (i.e. irrigation,whirlpool);minor removal of loose fragments. ( ) Other (please specify): Instrument Used: (x ) Scissors ( ) Scalpel ( ) Curette ( ) Other (please specify): Depth of Debridement: ( ) Skin ( x) Skin and Subcutaneous Tissue ( ) Skin, Subcutaneous Tissue and Muscle ( ) Skin, Subcutaneous Tissue, Muscle and Bone ( ) Other (please specify): Please Specify the Size of Debridement in cm2: Thank you RAYNE Sheppard CCS
== END 2023-12-11 10:30 | DRG 570 ==
LOC: ED 12:17 → EDINP 13:11 → SUATTDRO 13:11 → 2W 07-19 13:51 → 1E 08-03 12:01 → 2N 08-04 16:12 → 3E 08-11 00:09